=== PATIENT | male | born 1955 | race Caucasian/White ===

== ENCOUNTER 2025-01-04 06:26 | Emergency (ER) | payer OTHER, SELFPAY ==
[2025-01-04] VITALS (12 sets, daily range): BP systolic 91–118; BP diastolic 64–86; PULSE 102–112; RESP 18–38; TEMP 36.6–37.7; O2SAT 92–100; BMI 23.4
[2025-01-04 07:03] LABS: Hematocrit 23.8 % (40-54); Hemoglobin 7.9 g/dL (13.0-16.5); Mean Corp Hgb Conc 33.2 g/dL (32-36); Mean Corpuscular Volume 91.2 fL (80-94); Mean Platelet Vol. 9.5 fl (6.2-12.0); POSITIVE COUNT YES; POSITIVE DIFFERENTIAL YES; POSITIVE MORPHOLOGY YES; Platelet Count 288 K/mm3 (150-450); RBC Distribution Width CV 17.5 % (11.6-14.6); RBC Distribution Width SD 58.1 fl (35.1-43.9); Red Blood Count 2.61 M/mm3 (4.6-6.2); White Blood Count 10.7 K/mm3 (4.4-11.0)
[2025-01-04] MEDS: 0.9% Normal Saline (1000mL) 1,000 ML 999 ML IV (07:04)
[2025-01-04 07:10] LABS: Differential Indicated MANUAL DIFF
[2025-01-04 07:56] LABS: AST(SGOT) 49 U/L (<=37); Alanine Aminotransfer ALT/SGPT 18 U/L (<=46); Albumin, Serum 3.1 g/dL (3.4-4.8); Alkaline Phosphatase 81 U/L (40-129); Anion Gap 14 (5-15); BUN 14 mg/dL (4-19); BUN/Creat Ratio 13.2 RATIO (10-20); Calcium,Total 8.5 mg/dL (7.6-11.0); Carbon Dioxide 19.5 mmol/L (21.0-32.0); Chloride 87 mmol/L (98-108); Estimated Creatinine Clearance 67.91 ml/min (50-250); Globulin 3.4 g/dL (2.2-4.2); Glucose 111 mg/dL (70-99); Potassium 4.2 mmol/L (3.3-5.1)
[2025-01-04 07:57] LABS: Neutrophil-Band 1 % (0-5); Neutrophil-Segmented 83 % (47-70); Total Cells Counted 100 (MANUAL DIFF)
[2025-01-04 08:00] LABS: Red Cell Morphology NORM C+C NORMAL (NORM C&C)
[2025-01-04 08:02] LABS: Mucous, Urine 0 SEEN /hpf (<or=2+)
[2025-01-04 08:05] LABS: Troponin T High Sensitivity 22 ng/L (<=22)
[2025-01-04 08:12] LABS: Color, Urine Yellow (Yellow); Glucose, Dipstick Normal (Normal); Ketone-Dipstick 5 mg/dl (Negative); Leukocyte Esterase-Dipstick Negative /ul (Negative); Nitrite-Dipstick Negative (Negative); Occult Blood-Urine 25 /ul (Negative); Protein-Dipstick 30 mg/dl (Negative); Specific Gravity, Urine 1.015 (1.002-1.030); Urine Bilirubin Dipstick Negative (Negative)
[2025-01-04 08:22] LABS: Pro- Brain NATRIURETIC PEPTIDE 1141 pg/mL (<=900)
[2025-01-04 08:24] LABS: Prothrombin Time (Protime)PT. 14.9 SECONDS (11.7-14.9)
[2025-01-04 08:25] LABS: Partial Thromboplast Time 35.7 Seconds (24.1-36.2)
[2025-01-04 08:27] LABS: Red Blood Cells-Urine 0-5 SEEN /hpf (0-5); Squamous Epithelial Cells - UA 0-5 SEEN /hpf (0-5)
[2025-01-04] MEDS: Sodium Chloride 3% 500 ML IV.SOLN. INHALATION (09:56)
[2025-01-04 11:40] LABS: Troponin T High Sens 2 HR 20 ng/L (<=22)
== END 2025-01-04 13:35 | disposition left against medical advice (07) ==
PROVIDERS: Emergency Provider Emergency Medicine; Visit Provider Emergency Medicine
DX: R06.02 Shortness of breath (principal); C34.90 Malignant neoplasm of unspecified part of unspecified bronchus or lung; Z87.891 Personal history of nicotine dependence; Z53.29 Procedure and treatment not carried out because of patient's decision for other reasons
CPT/HCPCS: 71046; 71275; 74177; 80053; 81001; 83605; 83880; 84484; 85025; 85610; 85730; 87040; 87086; 87088; 93005; 94640; 96360; 96361; 99285; Q9967; A4216

== ENCOUNTER 2025-03-01 01:32 | Inpatient (IN) | payer OTHER, SELFPAY ==
[2025-03-01] VITALS (23 sets, daily range): BP systolic 90–130; BP diastolic 59–100; PULSE 51–134; RESP 14–30; TEMP 36.6–37.2; O2SAT 94–100; BMI 22.8; BMI 20.2
--- NOTE | 2025-03-01 02:28 | EKG12_ITS ---
Test Reason : Blood Pressure : */* mmHG Vent. Rate : 140 BPM Atrial Rate : 140 BPM P-R Int : 140 ms QRS Dur : 76 ms QT Int : 300 ms P-R-T Axes : 49 46 64 degrees QTcB Int : 458 ms Critical Test Result: High HR , Arrhythmia Sinus tachycardia with frequent and consecutive Premature ventricular complexes Abnormal ECG Confirmed by Delmar Lofton ([id number]), vibrating screen operator KENA ALICEA ([id number]) on 03/02/2025 11:00:08 AM Referred By: Confirmed By: Delmar Lofton
--- NOTE | 2025-03-01 02:30 | CT_ITS ---
PROCEDURE: CTA CHEST W/WO CONTRAST 03/01/2025 REASON FOR EXAM: SOB, HX LUNG CANCER, EDEMA TECHNIQUE: Procedure Code: [id number] Modality: CT Procedure: CTA CHEST W/WO CONTRAST Multiplanar Sagittal and Coronal images were obtained. CONTRAST: Isovue-370 VOLUME: 100 mL One or more dose reduction techniques were used (e.g., Automated exposure control, adjustment of the mA and/or kV according to patient size, use of iterative reconstruction technique). RADIATION DOSE SUMMARY: CTDlvol: 11.11 mGy DLP: 449 mGycm COMPARISON: CT scan on 01/04/2025. FINDINGS: Mild increase in the size of the left upper lobe/left hilar mass. Increased left pleural effusion. Increased left basilar atelectasis. Increased cavitation in the left lower lobe. Unchanged mediastinal and hilar lymphadenopathy. Mild increase in the size and number of multiple pulmonary nodules with the largest measuring 16 mm on the current exam (previously 13 mm). Unchanged upper abdominal lymphadenopathy. Unchanged left axillary lymphadenopathy. Unchanged diffuse spondylosis. Normal enhancement of the main pulmonary artery and right and left pulmonary arteries. Normal enhancement of the bilateral peripheral pulmonary arteries. There is no demonstrated pulmonary embolism. Normal thoracic aorta and visualized great vessels. There is no demonstrated aortic dissection. Normal heart and pericardium. Normal visualized trachea and bronchi. CT/CTA Chest W/WO Contrast IMPRESSION: Mild increase in the size of the left upper lobe/left hilar mass. Increased left pleural effusion. Increased left basilar atelectasis/consolidation. Increased cavitation in the left lower lobe. Unchanged mediastinal and hilar lymphadenopathy. Mild increase in the size and number of multiple pulmonary nodules with the lar gest measuring 16 mm on the current exam (previously 13 mm). Unchanged upper abdominal lymphadenopathy. Unchanged left axillary lymphadenopathy. Unchanged diffuse spondylosis. Unchanged multifocal compression of the left pulmonary artery and its branches. No CT evidence of pulmonary embolus or aortic dissection. Reading Location: [place] [id number]
[2025-03-01] MEDS: Ipratropium 0.5 MG/2.5 ML SOLUTION INHALATION (02:53)
[2025-03-01 02:55] LABS: Hematocrit 31.5 % (40-54); Hemoglobin 10.2 g/dL (13.0-16.5); Immature Granulocytes Count 0.670 X10^3/uL (0.0-0.0); Mean Corp Hgb Conc 32.4 g/dL (32-36); Mean Corpuscular Volume 83.8 fL (80-94); Mean Platelet Vol. 9.4 fl (6.2-12.0); NRBC Flagged by Analyzer 0 % (0-5); Platelet Count 459 K/mm3 (150-450); RBC Distribution Width CV 15.4 % (11.6-14.6); RBC Distribution Width SD 47.4 fl (35.1-43.9); Red Blood Count 3.76 M/mm3 (4.6-6.2); White Blood Count 14.4 K/mm3 (4.4-11.0)
--- NOTE | 2025-03-01 03:06 | CPS ---
pt slept t/o treatment
--- NOTE | 2025-03-01 03:07 | EDS_ITS ---
HPI History of Present Illness Chief Complaint: Shortness of Breath Informant: patient Narrative Narrative: Patient is a 69-year-old male with history of stage IV lung cancer (currently not receiving any treatment because he was not responding to immunotherapy) and symptomatic anemia presenting with worsening shortness of breath. Patient states has not worsened shortness of breath for the past 3 days. He states is normal for him to struggle with his breathing in the morning but usually throughout the day he is okay. In those of the past 3 days he never started to feel better. He sometimes has a mild wheeze when he has a coughing fit. Also notes in the past 2 weeks his increased swelling of his lower extremities. Did have heart failure once before but it seemed to be associated with anemia. He denies any anticoagulation. Denies any show DVT or PE. Denies any fever or chills. Denies any chest pain. Came in for further evaluation. States that he has not really been sleeping the past 2 days because he is afraid that he will not wake up. [facility] Medical History Lung cancer Home Medications ?Medication ?Instructions ?Recorded ?Last Taken ?Type Unobtainable 01/04/25 Unknown History Allergy/AdvReac Type Severity Reaction Status Date / Time No Known Allergies Allergy Verified 01/04/25 06:26 Social History Smoking Status: Former smoker ROS ROS ED Constitutional Constitutional ED: Denies chills or fever(s) ENT ENT ED: Denies rhinorrhea or sore throat Cardiovascular Cardiovascular: Reports other Details: Leg swelling ; Denies chest pain or palpitations Respiratory/Chest Respiratory/Chest: Reports cough, dyspnea and dyspnea on exertion; Denies sputum Gastrointestinal Gastrointestinal: Denies abdominal pain or vomiting Musculoskeletal Musculoskeletal: Denies arthralgias or myalgias Integumentary Denies rash Neurologic Neurologic: Reports weakness Psychiatric Psychiatric: Reports anxiety Hematologic/Lymphatic Hematologic/Lymphatic: Denies easy bleeding or easy bruising EXAM Physical Exam Const Vital Signs: 03/01/25 01:34 03/01/25 01:40 03/01/25 02:43 Temperature 98.4 F 98.4 F Temperature Source Axillary Axillary Pulse Rate 120 H 96 Respiratory Rate 30 H 20 H Respiratory Effort Short of Breath Labored Respiratory Depth Shallow Respiratory Pattern Tachypnea Blood Pressure 124/100 H 118/96 H Blood Pressure Mean 108 103 Pulse Ox 95 97 Oxygen Delivery Method Room Air Nasal Cannula Nasal Cannula Oxygen Flow Rate (L/min) 2 2 03/01/25 02:43 03/01/25 02:55 03/01/25 03:09 Temperature 98.4 F Temperature Source Oral Pulse Rate 80 92 Respiratory Rate 14 18 Respiratory Effort Respiratory Depth Respiratory Pattern Blood Pressure 106/92 H Blood Pressure Mean 96 Pulse Ox 97 97 Oxygen Delivery Method Nasal Cannula Oxygen Flow Rate (L/min) 2 03/01/25 04:06 03/01/25 05:00 03/01/25 06:10 Temperature 98.6 F 98 F Temperature Source Oral Temporal Pulse Rate 122 H 107 H 129 H Respiratory Rate 15 18 16 Respiratory Effort Respiratory Depth Respiratory Pattern Blood Pressure 119/83 H 120/59 L Blood Pressure Mean 95 79 Pulse Ox 100 100 99 Oxygen Delivery Method Oxygen Flow Rate (L/min) 03/01/25 07:03 03/01/25 07:10 Temperature 97.8 F Temperature Source Oral Pulse Rate 111 H 121 H Respiratory Rate 19 H 19 H Respiratory Effort Respiratory Depth Respiratory Pattern Blood Pressure 102/82 H 102/82 H Blood Pressure Mean 88 88 Pulse Ox 98 100 Oxygen Delivery Method Nasal Cannula Nasal Cannula Oxygen Flow Rate (L/min) 3 Positive well nourished and well developed Constitutional Narrative: Mildly ill-appearing General Appearance ED: well developed, NAD and pallor HEENT Reports moist mucous membranes atraumatic Eyes PERRL Neck supple Neck Narrative: Mild JVD present Resp Resp Narrative: Tachypneic. Diminished breath sounds on the left base. Auscultation: Negative for rhonchi or wheezes Cardio no murmurs Rate: tachycardic Rhythm: abnormal rhythm irregularly irregular GI non-tender and non-distended GI Narrative: Soft and reducible ventral hernia present. This is chronic for patient. No overlying redness or tenderness. Extremity Extremity Narrative: Pitting pretibial edema of the bilateral lower extremities slightly worse on the right compared to the left. General Extremety ED: Yes edema General Extremity: edema Neuro oriented x3 Sensorium / Orientation: alert Motor Exam: general weakness Psych mental status grossly normal Mood & Affect: anxious Thought Process: normal thought process Skin no wounds General Skin Exam: pallor Rashes: no rashes MDM MDM MDM Narrative Medical decision making narrative: Patient is a very pleasant 69-year-old male with history of stage IV metastatic lung cancer that currently is untreatable. [facility] follows with [facility]. He is presenting with worsening shortness of breath as well as leg swelling. Differential includes is not limited to pulmonary emboli, ACS, CHF exacerbation, pneumonia, obstructive process, pleural effusion and pneumothorax. Workup obtained including CBC, high-sensitivity troponins, BNP, lactate, BMP and CTA of the chest. EKG shows a tachycardic, narrow complex rhythm however I do not think it is atrial fibrillation. Patient does have a leukocytosis of 14.4. He is afebrile in the emergency room. He has required some supplemental oxygen which is new for him. He has a mild anemia the hemoglobin of 10.2 however I do not think that is low enough to cause his symptoms/high output heart failure. He states he does have history of requiring blood transfusion. He does have an associated left shift. His BMP is remarkable for hyponatremia the sodium 126 but this appears chronic. Lactate is normal at 1.5. High- sensitivity troponin stable at 36 and 34. BNP elevated [place] 2433. CT of the chest does not show any pulmonary emboli but does show increased left upper and hilar mass, increased pleural effusion, increased left basilar atelectasis/consolidation and increased cavitation of the left lower lobe. He has increased pulmonary nodules and unchanged multifocal compression of the left pulmonary artery and its branches. 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 Is started on antibiotics as well as diuresis. As he receives his care through the [facility] will contact them for transfer/admission. If they are unable to accommodate admission we will attempt admission here. Patient is agreeable with this. Patient is started on Rocephin, azithromycin and Lasix in the emergency room. As his blood pressure has been stable, he does not have endorgan damage consistent with sepsis and clinically appears fluid overloaded will give Lasix and hold off on IV fluids at this time. Lab Data Attestation: I reviewed the patient's lab results. Labs: Laboratory Results - last 24 hr 03/01/25 03/01/25 02:40 05:20 WBC 14.4 H RBC 3.76 L Hgb 10.2 L Hct 31.5 L MCV 83.8 MCH 27.1 MCHC 32.4 RDW Std Deviation 47.4 H RDW Coeff of Hai 15.4 H Plt Count 459 H MPV 9.4 Immature Gran % (Auto) 4.700 H Neut % (Auto) 81.2 H Lymph % (Auto) 4.8 L Finney % (Auto) 8.9 Eos % (Auto) 0.0 Baso % (Auto) 0.4 Absolute Neuts (auto) 11.7 H Absolute Lymphs (auto) 0.69 L Nucleated RBC % 0 Sodium 126 L Potassium 4.2 Chloride 90 L Carbon Dioxide 22.6 Anion Gap 14 BUN 11 Creatinine 0.65 L Estim Creat Clear Calc 89.24 Est GFR (MDRD) Non-Af 102 BUN/Creatinine Ratio 17.2 Glucose 90 Lactic Acid 1.5 Calcium 8.9 Troponin T High Sens 36 H D Troponin T Hi Sens 2 Hr 34 H NT pro BNP II 2433 H Radiography Diagnostic Testing: Clinical Impression(s) from Imaging Studies Chest CTA 03/01/25 02:30 IMPRESSION: Mild increase in the size of the left upper lobe/left hilar mass. Increased left pleural effusion. Increased left basilar atelectasis/consolidation. Increased cavitation in the left lower lobe. Unchanged mediastinal and hilar lymphadenopathy. Mild increase in the size and number of multiple pulmonary nodules with the largest measuring 16 mm on the current exam (previously 13 mm). Unchanged upper abdominal lymphadenopathy. Unchanged left axillary lymphadenopathy. Unchanged diffuse spondylosis. Unchanged multifocal compression of the left pulmonary artery and its branches. No CT evidence of pulmonary embolus or aortic dissection. Reading Location: [place] [id number] Rhythm Strip Rhythm Strip: Sinus Tach Rate: 140 Ectopy: PVC(s) EKG Initial EKG: Attestation: I personally reviewed and interpreted this EKG as follows: Interpretation: Sinus Tachycardia Comments: Sinus tachycardia with frequent PVCs and PACs Normal axis Normal intervals Normal ST segments Discharge Plan Triage Chief Complaint: Shortness of Breath ED Provider: Kassi Baker Dx/Rx/DC Orders Clinical Impression: Acute hypoxic respiratory failure, Obstructive pneumonia, Pleural effusion, Metastatic cancer to lung Prescriptions: No Action Unobtainable [facility] Provider: [facility] Referrals: [facility] [Primary Care Provider] - Print Language: Macedonian
[2025-03-01 03:32] LABS: Anion Gap 14 (5-15); BUN 11 mg/dL (4-19); BUN/Creat Ratio 17.2 RATIO (10-20); Calcium,Total 8.9 mg/dL (7.6-11.0); Carbon Dioxide 22.6 mmol/L (21.0-32.0); Chloride 90 mmol/L (98-108); Estimated Creatinine Clearance 89.24 ml/min (50-250); Glucose 90 mg/dL (70-99); Potassium 4.2 mmol/L (3.3-5.1)
[2025-03-01 04:10] LABS: Pro- Brain NATRIURETIC PEPTIDE 2433 pg/mL (<=900); Troponin T High Sensitivity 36 ng/L (<=22)
--- OUTSIDE RECORDS SUMMARY | 2025-03-01 05:30 | XMS RPT_ITS | CCD ---
Author Organization [facility] Care Team Providers Care General Expeditor Name Role Phone YEN MILES Admitting Unavailable BETSY VAZQUEZ Attending Unavailable SANDRINE EARL [place], [place] Primary Care Provider Dr. Ned Ragsdale DO Emergency Provider [place], [place] Primary Care Unavailable Ned Harmon Attending Unavailable Medications Current Medications Medication Drug Class(es) Dates Sig (Normalized) Sig (Original) [place] (Unobtainable) (1 source) Start: 01-04-2025 [place] (Unobtainable) Active January 04, 2025 12:00am Completed/Discontinued Medications Medication Drug Class(es) Dates Sig (Normalized) Sig (Original) meclizine hydrochloride 12.5 mg oral tablet (1 source) Antiemetic Start: 03-22-2016 End: 01-04-2025 take 1 tablet by mouth three times daily as needed Meclizine 12.5 MG tablet Discontinued 12.5 mg PO 3 TIMES DAILY NEEDED as needed for Vertigo 20 0 March 22, 2016 12:00am January 04, 2025 6:32am Problems Problem Classification Problem Date Documented Da te Episodic/Chronic Cancer of bronchus; lung (2 sources) Malignant neoplasm of unspecified part of left bronchus or lung; Translations: [Malignant tumor of lung] Onset: 12-14-2024 01-04-2025 Chronic Cancer; other and unspecified primary (1 source) H/O: malignant neoplasm; Translations: [Personal history of malignant neoplasm of other organs and systems] 01-04-2025 Episodic Deficiency and other anemia (1 source) Anemia, unspecified; Translations: [Anemia, unspecified type] Onset: 12-09-2024 Episodic Other lower respiratory disease (2 sources) Shortness of breath; Translations: [Shortness of breath] Onset: 12-09-2024 Episodic Other lower respiratory disease (1 source) Dyspnea; Translations: [Shortness of breath] 01-04-2025 Episodic Other nervous system disorders (1 source) Ataxia; Translations: [Ataxia, unspecified] 03-21-2016 Episodic Results Test Name Value Interpretation Reference Range Facility CBC W/Diff, Automatedon 12-30 PATH REV Reviewed Normal [facility] Comment on above: Result Comment: SEE REPORT IN PATIENT'S EMR AMENDED REPORT 01/20/25 1116 PATH REV previously reported as: October Performed By: #### L 400.0001, M100.2200 #### [facility] [place], [address] Culture, Blood (WB)on 2024 CUB Blood cultures x2, from two different sites No growth in 5 days. [facility] Comment on above: Performed By: #### M 200.1000 #### [facility] [place], [address] Performed By: #### L 400.0001, M100.2200 #### [facility] [place], [address] Urine Cultureon 01-06-2025 URC Below infection level. Mixed Gram Positive Organisms [place] Count 1000-10,000 MIXC Mixed contaminants. Submit a new specimen if indicated. [facility] Comment on above: Performed By: #### L 400.0001, M100.2200 #### [facility] [place], [address] 12 Lead EKGon 01-04-2025 12 Lead EKG [facility] Cardiovascular Services [address] [place] [address] 12 Lead EKG 01/04/25 0636 MR#: [id number] Acct: [id number] Name: CAROLINA CHENEY Rep #: [id number] : 1955 69 From: Ramy Henderson MD Attending Dr: Status: DEP ER Ordering Dr: Ned Harmon DO Date: 01/04/25 Location: ED Sex: M C Admitted: Test Reason : SOB Blood Pressure : */* mmHG Vent. Rate : 107 BPM Atrial Rate : 107 BPM P-R Int : 150 ms QRS Dur : 92 ms QT Int : 334 ms P-R-T Axes : 62 69 65 degrees QTcB Int : 445 ms Sinus tachycardia Otherwise normal ECG Confirmed by TIFFANI SANZ, RAMY ([id number]), editorial director URIAH BUITRAGO ([id number]) on 01/05/2025 8:23:44 AM Referred By: Confirmed By: RAMY HENDERSON MD 01/05/25 0823 Date Ramy Henderson MD CC: Dr. Ned Harmon DO; [facility] Signed Normal [facility] Abdomen/Pelvis W IV Cont ONL Yon 01-04-2025 Abdomen/Pelvis W IV Cont ONLY [facility] Imaging Services [facility] [place], [place] [address] Abdomen/Pelvis W IV Cont ONLY MR#: [id number] Acct: [id number] Name: CAROLINA CHENEY Rep #: [id number] : 1955 M 69 From: Carlos Bee MD PCP: [facility] Status: REG ER Study: Abdomen/Pelvis W IV Cont ONLY Date of Exam: Exam# [id number] Ordering Dr: Ned Harmon DO PROCEDURE: ABDOMEN/PELVIS W IV CONT ONLY 01/04/2025 REASON FOR EXAM: HX OF LUNG CANCER TECHNIQUE: ABDOMEN/PELVIS W IV CONT ONLY Coronal and Sagittal reconstruction series were provided. CONTRAST: Isovue 370 VOLUME: 95 mL One or more dose reduction techniques were used (e.g., Automated exposure control, adjustment of the mA and/or kV according to patient size, use of iterative reconstruction technique. RADIATION DOSE SUMMARY: CTDlvol: 23.50 mGy DLP: 742.11 mGycm COMPARISON: None. FINDINGS: Lung bases: Please see chest CT findings, same day. Liver: The liver measures 18.0 cm in vertical dimension in the midclavicular line. Gallbladder: Normal. Spleen: Normal. Pancreas: Normal. Adrenals: Normal. Kidneys: Normal. Bladder: Normal unenhanced appearance. Reproductive Organs: The prostate gland measures 4.7 cm in transverse dimension and contains a coarse calcification. The seminal vesicles are unremarkable. There is no free fluid in the pelvis. There is no inguinal lymphadenopathy. Bowel: There are few mildly distended loops of the small bowel with air-fluid levels and there is mild distention of the transverse colon. There are no abnormally dilated loops of bowel. This may be a mild ileus associated with chemotherapy. Appendix: Normal. Lymph nodes: There is gastrohepatic lymphadenopathy measuring 3.8 x 2.9 cm in conglomerate. There are multiple enlarged retroperitoneal lymph nodes, index node, a left periaortic lymph node measuring 2.0 x 1.3 cm. Vasculature: There is calcific vascular disease of the abdominal aorta. The inferior vena cava and portal venous system are normal. Peritoneum / Retroperitoneum: There are no abnormal intra or retroperitoneal masses or fluid collections. There is a midline ventral hernia, containing normal fat, measuring 5.6 cm in diameter, 8.0 cm above the umbilicus. Bones: There is mild multilevel degenerative disc disease of the lower thoracic and lumbar spine. There is a large Schmorl's node in the superior endplate of L5. CT/Abdomen/Pelvis W IV Cont ONLY IMPRESSION: 1. Upper intra-abdominal and retroperitoneal lymphadenopathy suspicious for metastatic disease. 2. Hepatomegaly. 3. Mild ileus. 4. Other findings as noted. Reading Location: [id number] CC: Dr. Ned Harmon, DO; [facility] Card Writer Hand: Signed Normal [facility] Absolute lymphocyte countOrd ered By: Ned Harmon on 01-04-2025 Lymphocytes Auto (Unsp spec) [#/Vol] 0.43 10*3/uL Low 0.83-4.51 [facility] Absolute neutrophil countOrd ered By: Ned Harmon on 01-04-2025 Neutrophils (Bld) [#/Vol] 9.0 10*3/uL High 2.0-7.7 [facility] Activated partial thrombopla stin time (aPTT) in platelet poor plasma by coagulation aOrdered By: Ned Harmon on 01-04-2025 aPTT Coag (PPP) [Time] 35.7 s 24.1-36.2 [facility] Anion gap in Serum or Plasma Ordered By: Ned Harmon on 01-04-2025 Anion gap [Moles/Vol] 14 mmol/L 5-[address] [facility] BUN/creatinine ratioOrdered By: Ned Harmon on 01-04-2025 Urea nitrogen/Creatinine [Mass ratio] 13.2 mg/mg 10-20 [facility] Bilirubin Test strip Ql (U)O rdered By: Ned Harmon on 01-04-2025 Bilirubin Ql (U) Negative Negative [facility] Bilirubin, totalOrdered By: Ned Harmon on 01-04-2025 Bilirubin [Mass/Vol] 0.88 mg/dL 0.00-1.30 [facility] Blood band neutrophil count as percentage of total leukocytesOrdered By: Ned Harmon on 01-04-2025 Band form neutrophils/100 WBC (Bld) 1 % 0-5 [facility] Blood eosinophils/100 leukoc ytesOrdered By: Ned Harmon on 01-04-2025 Eosinophils/100 WBC (Bld) 2 % 0-5 [facility] Blood lymphocytes/100 leukoc ytesOrdered By: Ned Harmon on 01-04-2025 Lymphocytes/100 WBC (Bld) 4 % Low 19-41 [facility] Blood metamyelocytes/100 yael kocytesOrdered By: Ned Harmon on 01-04-2025 Metamyelocytes/100 WBC (Bld) 4 % High 0-1 [facility] Blood monocytes/100 leukocyt esOrdered By: Ned Harmon on 01-04-2025 Monocytes/100 WBC (Bld) 6 % 0-10 [facility] Blood segmented neutrophils/ 100 leukocytesOrdered By: Ned Harmon on 01-04-2025 Segmented neutrophils/100 WBC (Bld) 83 % High 47-70 [facility] CTA Chest W/WO Contraston CTA Chest W/WO Contrast [facility] Imaging Services [address] [place] [address] CTA Chest W/WO Contrast MR#: [id number] Acct: [id number] Name: CAROLINA CHENEY Rep #: [id number] : 1955 M 69 From: Wilfrido Wu DO PCP: [facility] Status: REG ER Study: CTA Chest W/WO Contrast Date of Exam: 01/04/25 Exam# [id number] Ordering Dr: Ned Harmon DO PROCEDURE: CTA CHEST W/WO CONTRAST 01/04/2025 REASON FOR EXAM: Shortness of breath history of cancer TECHNIQUE: CTA CHEST W/WO CONTRAST Multiplanar Sagittal and Coronal images were obtained. CONTRAST: Isovue 370 VOLUME: 100 mL One or more dose reduction techniques were used (e.g., Automated exposure control, adjustment of the mA and/or kV according to patient size, use of iterative reconstruction technique). RADIATION DOSE SUMMARY: CTDlvol: 6.29, 6.70 and 10.24 mGy DLP: 742.11 mGycm COMPARISON: Chest radiograph January 04, 2025 FINDINGS: Thoracic Aorta: Normal caliber. Heart: Normal size. Pulmonary Vessels: No pulmonary embolism. Hardware: None. Lymph nodes: No isolated identified Lungs and Airways: Complete atelectasis of the left upper lobe versus large mass. Sedation in the superior segment of the left lower lobe. Consider bronchial plugs with either mucous or neoplasm versus other Pleura: Very small left pleural effusion. 13 mm ovoid pleural-based nodule in the right lower lobe, and several similar size pulmonary nodules throughout the right lung Upper Abdomen: Unremarkable Bones: Schmorl's node inferior endplate T11 CT/CTA Chest W/WO Contrast IMPRESSION: No pulmonary embolism. Complete atelectasis of the left upper lobe from bronchial plugging from mucous, lung cancer versus other etiology. Multi focal right lung pulmonary metastases Reading Location: [facility] CC: Dr. Ned Harmon DO; [facility] Card Writer Hand: Signed Normal [facility] Carbon dioxide, total [Moles /volume] in Central venous bloodOrdered By: Ned Harmon on 01-04-2025 CO2 [Moles/Vol] 19.5 mmol/L Low 21.0-32.0 [facility] Chest PA and Lateralon 01-04 Chest PA and Lateral [facility] Imaging Services [address] [place], [place] [address] Chest PA and Lateral MR#: [id number] Acct: [id number] Name: CAROLINA CHENEY Rep #: [id number] : 1955 M 69 From: Carlos Bee MD PCP: [facility] Status: DEP ER Study: Chest PA and Lateral Date of Exam: 01/04/25 Exam# [id number] Ordering Dr: Ned Harmon DO ADDENDUM by Dr. Wilfrido Wu DO on 01/04/25 at 1343 Addendum created to compare CT chest same day current chest x-ray. General opacity shown on the chest radiograph corresponds to a large mass in the upper lobe of lung there is atelectasis of the lower lobe of the lung Impression Large left upper lobe mass Left lower lobe consolidating pneumonia. Discussed case with ordering ER physician Dr. Ned Harmon at 1 30 8 p.m. on January 04, 2025 Reading Location: [facility]- 01/04/25 1718 Date cc: Dr. Ned Harmon DO; [facility] * Signed PROCEDURE: CHEST PA AND LATERAL 01/04/2025 REASON FOR EXAM: SOB TECHNIQUE: CHEST PA AND LATERAL COMPARISON: None. FINDINGS: There is a large mass in the upper lobe of the left lung. There is significant atelectasis of the upper lobe of the left lung and a portion of the lower lobe of the left lung, with associated volume loss. The right lung is clear. The left heart border is obscured. RAD/Chest PA and Lateral IMPRESSION: Large mass in the upper lobe of the left lung with associated atelectasis. Recommendation: CT chest with IV contrast. Reading Location: [facility] CC: Dr. Ned Harmon DO; [facility] Card Writer Hand: Signed Normal [facility] Chloride assayOrdered By: Tomas Harmon on 01-04-2025 Chloride [Moles/Vol] 87 mmol/L Low 98-108 [facility] Comprehensive Metabolic Prof ilon 01-04-2025 Albumin [Mass/Vol] 3.1 g/dL Low 3.4-4.8 [facility] Comment on above: Performed By: #### L 400.0001, #### [facility] [address] [place], [address] Albumin/Globulin [Mass ratio] 0.9 {ratio} Normal 0.9-2.4 [facility] Comment on above: Performed By: #### L 400.0001, #### [facility] [address] [place], [address] ALK PHOS 81 U/L Normal 40-129 [facility] Comment on above: Performed By: #### L 400.0001, #### [facility] [address] [place], [address] ALT [Catalytic activity/Vol] 18 U/L Normal <=46 [facility] Comment on above: Performed By: #### L 400.0001, #### [facility] [address] [place], [address] AST [Catalytic activity/Vol] 49 U/L High <=37 [facility] Comment on above: Performed By: #### L 400.0001, #### [facility] [address] [place], [address] Bilirubin [Mass/Vol] 0.88 mg/dL Normal 0.00-1.30 [facility] Comment on above: Performed By: #### L 400.0001, #### [facility] [address] [place], [address] BUN/CRE 13.2 RATIO Normal 10-20 [facility] Comment on above: Performed By: #### L 400.0001, #### [facility] [address] [place], [address] Calcium [Mass/Vol] 8.5 mg/dL Normal 7.6-11.0 [facility] Comment on above: Performed By: #### L 400.0001, #### [facility] [address] [place], [address] Chloride [Moles/Vol] 87 mmol/L Low 98-108 [facility] Comment on above: Performed By: #### L 400.0001, #### [facility] [address] [place], [address] CO2 [Moles/Vol] 19.5 mmol/L Low 21.0-32.0 [facility] Comment on above: Performed By: #### L 400.0001, #### [facility] [address] [place], [address] Creatinine [Mass/Vol] 1.06 mg/dL Normal 0.70-1.[address] [facility] Comment on above: Performed By: #### L 400.0001, #### [facility] [address] [place], [address] ECRCL 67.91 ml/min Normal 50-250 [facility] Comment on above: Performed By: #### L 400.0001, #### [facility] [address] [place], [address] GAP 14 Normal 5-15 [facility] Comment on above: Performed By: #### L 400.0001, #### [facility] [address] [place], [address] GFR/1.73 sq M.predicted among non-blacks MDRD (S/P/Bld) [Vol rate/Area] 76 mL/min/{1.73_m2} Normal >60 [facility] Comment on above: Result Comment: mL/m in/1.73m2 CKD-EPI Creatinine Equation (2020) Performed By: #### L 400.0001, #### [facility] [address] [place], [address] Globulin (S) [Mass/Vol] 3.4 g/dL Normal 2.2-4.2 [facility] Comment on above: Performed By: #### L 400.0001, #### [facility] [address] [place], [address] Glucose [Mass/Vol] 111 mg/dL High 70-99 [facility] Comment on above: Performed By: #### L 400.0001, #### [facility] [address] [place], [address] Potassium [Moles/Vol] 4.2 mmol/L Normal 3.3-5.[address] [facility] Comment on above: Performed By: #### L 400.0001, #### [facility] [address] [place], [address] Sodium [Moles/Vol] 120 mmol/L Low 133-145 [facility] Comment on above: Performed By: #### L 400.0001, #### [facility] [address] [place], [address] T PROT 6.5 g/dL Normal 5.9-8.4 [facility] Comment on above: Performed By: #### L 400.0001, #### [facility] [address] [place], [address] Urea nitrogen [Mass/Vol] 14 mg/dL Normal 4-19 [facility] [facility] Comment on above: Performed By: #### L 400.0001, M100.2200 #### [facility] [address] [place], [address] Emergency Department Summary on 01-04-2025 Emergency Department Summary [facility] Medical Records Department [address] [place] [address] Emergency Department Summary 01/04/25 MR#: [id number] Acct: [id number] Name: CAROLINA CHENEY Rep #: [id number] : 1955 69 From: Ned Harmon DO PCP: [facility] Status:REG ER Location: ED ADDENDUM by Dr. Ned Harmon DO on 01/04/25 at 1328 Patient EKG reviewed showed sinus tachycardia with rate of 107 bpm. 01/04/25 1328 Cosigner Signature (if applicable): cc: [facility] * Signed HPI History of Present Illness Chief Complaint: Shortness of Breath Narrative Narrative: Patient is a 69-year-old male with past medical history of lung cancer who presents to the emergency department with chief complaint of shortness of breath. Patient states that he has had off-and-on shortness of breath for the last several weeks he has had recent hospitalizations he states that originally he was at the hospital with [facility] and there was admitted to [facility] About 2 weeks ago. He states that he will be sleeping and he will feel like he wakes up gasping for air having shortness of breath difficulty breathing therefore he came here for further evaluation management. Patient denies any travel denies any history of blood clots. [facility] Medical History Lung cancer Home Medications ???Medication ???Instructions ???Recorded ???Last Taken ???Type Unobtainable 01/04/25 Unknown History Allergy/AdvReac Type Severity Reaction Status Date / Time No Known Allergies Allergy Verified 01/04/25 06:26 Social History Smoking Status: Former smoker ROS ROS ED ROS Narrative Constitutional: Complains of chills denies fevers denies headache Eyes: Denies change in vision double vision blurry vision Cardiovascular: Denies chest pain or palpitations Respiratory: Complains of shortness of breath as noted above Abdomen: Denies abdominal pain nausea vomit diarrhea : Denies urinary symptoms Neurological: Denies numbness, weakness, tingling Musculoskeletal: Denies back pain Skin: Denies any rashes or lesions EXAM Physical Exam Narrative Exam Narrative: General: Patient lying in bed rest comfortably did not appear to be acute distress Head: Atraumatic, normocephalic Eyes: PERRL bilaterally, EOMI blood, no conjunctival injection noted Neck: Soft, supple, trachea midline Cardiovascular: Patient tachycardic with a regular rhythm Respiratory: Diminished breath sounds bilaterally Abdomen: No tenderness to palpation, soft, nondistended Extremities: +5/5 strength noted in the bilateral upper and lower extremities Neurological: Patient follow commands and that he was at [facility] year is 2024 Skin: Warm. Dry, intact no rashes or lesions noted Const Vital Signs: 01/04/25 06:27 01/04/25 06:30 01/04/25 06:33 Temperature 99.8 F H 99.8 F H Temperature Source Axillary Axillary Pulse Rate 106 H 106 H Respiratory Rate 38 H 34 H Respiratory Effort Short of Breath Blood Pressure 118/86 H 107/86 H Blood Pressure Mean 96 93 Pulse Ox 92 96 Oxygen Delivery Method Non-Rebreather Non-Rebreather Oxygen Flow Rate (L/min) 15 15 01/04/25 06:51 01/04/25 06:52 01/04/25 07:43 Temperature 98.4 F Temperature Source Oral Pulse Rate 104 H Respiratory Rate 30 H 31 H Respiratory Effort Blood Pressure 108/72 Blood Pressure Mean 84 Pulse Ox 97 98 97 Oxygen Delivery Method Room Air Room Air Room Air Oxygen Flow Rate (L/min) 01/04/25 08:00 01/04/25 08:38 01/04/25 09:00 Temperature 98.7 F 97.9 F 98.7 F Temperature Source Oral Oral Oral Pulse Rate 102 H 107 H 106 H Respiratory Rate 24 H 18 21 H Respiratory Effort Blood Pressure 107/68 94/67 111/74 Blood Pressure Mean 81 76 86 Pulse Ox 97 96 100 Oxygen Delivery Method Room Air Room Air Room Air Oxygen Flow Rate (L/min) 01/04/25 10:00 01/04/25 10:02 01/04/25 11:00 Temperature 97.8 F 98.9 F Temperature Source Oral Temporal Pulse Rate 107 H 104 H 112 H Respiratory Rate 23 H 20 H 22 H Respiratory Effort Blood Pressure 110/84 H 91/64 Blood Pressure Mean 92 73 Pulse Ox 100 99 Oxygen Delivery Method Room Air Room Air Oxygen Flow Rate (L/min) 01/04/25 12:18 Temperature 98.1 F Temperature Source Oral Pulse Rate 108 H Respiratory Rate 21 H Respiratory Effort Blood Pressure 96/66 Blood Pressure Mean 76 Pulse Ox 96 Oxygen Delivery Method Room Air Oxygen Flow Rate (L/min) MDM MDM MDM Narrative Medical decision making narrative: Patient is a 69-year-old male who presented to the emergency department chief complaint of shortness of (more content not included)... Normal [facility] Erythrocyte distribution wid th ratioOrdered By: Ned Harmon on 01-04-2025 Erythrocyte distribution width (RBC) [Ratio] 17.5 % High 11.6-14.6 [facility] Erythrocyte distribution wid th standard deviationOrdered By: Ned Harmon on 01-04-2025 Erythrocyte distribution width (RBC) [Ratio] 58.1 fl High 35.1-43.9 [facility] Erythrocyte morphology asses smentOrdered By: Ned Harmon on 01-04-2025 RBC morphology finding Nom (Bld) NORM C+C NORMAL NORM C&C [facility] Glomerular filtration rate ( GFR) estimation/1.73 sq m using serum, plasma, or whole bOrdered By: Ned Harmon on 01-04-2025 GFR/1.73 sq M.predicted among non-blacks MDRD (S/P/Bld) [Vol rate/Area] 76 mL/min/{1.73_m2} >60 [facility] Comment on above: mL/min/1.73m2 CKD-EP I Creatinine Equation (2020) Hematocrit Auto (Bld) [Volum e fraction]Ordered By: Ned Harmon on 01-04-2025 Hematocrit (Bld) [Volume fraction] 23.8 % Low 40-54 [facility] Hemoglobin measurementOrdere d By: Ned Harmon on 01-04-2025 Hemoglobin (Bld) [Mass/Vol] 7.9 g/dL Low 13.0-16.5 [facility] International normalized rat io (INR) calculationOrdered By: Ned Harmon on 01-04-2025 INR Coag (Bld) [Relative time] 1.2 {INR} [facility] Ketones Test strip Ql (U)Ord ered By: Ned Harmon on 01-04-2025 Ketones Ql (U) 5 mg/dl High Negative [facility] L499.0042on 01-04-2025 Trop T High Sen 20 ng/L Normal <=22 [facility] Comment on above: Performed By: #### L 400.0001, M100.2200 #### [facility] [address] [place], [address] L499.0043on 01-04-2025 Trop T High Sen Normal <=22 [facility] Comment on above: Result Comment: NO S PECIMEN COLLECTED. PATIENT DEPARTED ED. Performed By: #### L 499.0043 #### [facility] [address] [place], [address] L501.4021on 01-04-2025 Trop T High Sen 22 ng/L Normal <=22 [facility] Comment on above: Performed By: #### L 400.0001, M100.2200 #### [facility] [address] [place], [address] L503.7505on 01-04-2025 Natriuretic peptide B (Bld) [Mass/Vol] 1141 pg/mL High <=900 [facility] Comment on above: Result Comment: Hear t Failure Unlikely: < 300 pg/mL Heart Failure Likely < 50 Years: > 450 pg/mL 50-75 Years: > 900 pg/mL >75 Years: > 1800 pg/mL Performed By: #### L 503.7505 #### [facility] [address] [place], [address] Laboratory - Chemistry and C hemistry - challengeOrdered By: Ned Harmon on 01-04-2025 AST [Catalytic activity/Vol] 49 U/L High <38 [facility] Lactic Acidon 01-04-2025 Lactate [Moles/Vol] 1.3 mmol/L Normal 0.0-2.0 [facility] Comment on above: Order Comment: Y Performed By: #### L 400.0001, M100.2200 #### [facility] [place] [address], [address] Lactic acid measurementOrder ed By: Ned Harmon on 01-04-2025 Lactate [Moles/Vol] 1.3 mmol/L 0.0-2.0 [facility] MCV (mean corpuscular volume ) determinationOrdered By: Ned Harmon on 01-04-2025 MCV (RBC) [Entitic vol] 91.2 fL 80-94 [facility] Mean corpuscular hemoglobin (MCH) determinationOrdered By: Ned Harmon on 01-04-2025 MCH (RBC) [Entitic mass] 30.3 pg 27.0-32.0 [facility] Mean corpuscular hemoglobin concentration (MCHC) determinationOrdered By: Ned Harmon on 01-04-2025 MCHC (RBC) [Mass/Vol] 33.2 g/dL 32-[address] [facility] Mean platelet volume determi nationOrdered By: Ned Harmon on 01-04-2025 Platelet mean volume (Bld) [Entitic vol] 9.5 fL 6.2-12.0 [facility] Microscopic analysis of urin e for red blood cells (RBC)Ordered By: Ned Harmon on 01-04-2025 Microscopic analysis of urine for red blood cells (RBC) 0-5 SEEN /hpf 0-5 [facility] Mucus LM Ql (Urine sed)Order ed By: Ned Harmon on 01-04-2025 Mucus Ql (Urine sed) 0 SEEN /hpf [facility] Natriuretic peptide.B prohor dada N-Terminal [Mass/volume] in Serum or PlasmaOrdered By: Ned Harmon on 01-04-2025 Natriuretic peptide.B prohormone N-Terminal [Mass/Vol] 1141 pg/mL High <900 [facility] Comment on above: Heart Failure Unlike ly: < 300 pg/mLHeart Failure Likely< 50 Years: > 450 pg/mL50-75 Years: > 900 pg/mL>75 Years: > 1800 pg/mL Nitrite Test strip Ql (U)Ord ered By: Ned Harmon on 01-04-2025 Nitrite Ql (U) Negative Negative [facility] Partial Thromboplast Timeon 01-04-2025 aPTT Coag (Bld) [Time] 35.7 s Normal 24.1-36.2 [facility] Comment on above: Performed By: #### L 400.0001, #### [facility] [address] [place], [place], [id number] Platelet countOrdered By: Tomas Harmon on 01-04-2025 Platelets (Bld) [#/Vol] 288 10*3/uL 150-450 [facility] Platelet estimateOrdered By: Ned Harmon on 01-04-2025 Platelets LM Ql (Bld) ADEQUATE ADEQ [facility] Potassium measurement (mass/ volume)Ordered By: Ned Harmon on 01-04-2025 Potassium (Unsp spec) [Mass/Vol] 4.2 mmol/L 3.3-5.1 [facility] Protein Test strip Ql (U)Ord ered By: Ned Harmon on 01-04-2025 Protein Ql (U) 30 mg/dl High Negative [facility] Prothrombin Time w/INRon INR Coag (PPP) [Relative time] 1.2 {INR} Normal [facility] Comment on above: Performed By: #### L 400.0001, #### [facility] [address] [place], [address] PT Coag (PPP) [Time] 14.9 s Normal 11.7-14.9 [facility] Comment on above: Performed By: #### L 400.0001, #### [facility] [address] [place], [address] Prothrombin timeOrdered By: Ned Harmno on 01-04-2025 PT Coag (PPP) [Time] 14.9 s 11.7-14.9 [facility] RBC Auto (Bld) [#/Vol]Ordere d By: Ned Harmon on 01-04-2025 RBC (Bld) [#/Vol] 2.61 10*6/uL Low 4.6-6.2 [facility] Review by pathologistOrdered By: Ned Harmon on 01-04-2025 Pathologist review Jani (Unsp spec) [Interp] May foll [facility] Serum creatinine measurement (mass/volume)Ordered By: Ned Harmon on 01-04-2025 Creatinine [Mass/Vol] 1.06 mg/dL 0.70-1.[address] [facility] Serum globulin measurementOr dered By: Ned Harmon on 01-04-2025 Globulin (S) [Mass/Vol] 3.4 g/dL 2.2-4.2 [facility] Serum glucose measurement (m ass/volume)Ordered By: Ned Harmon on 01-04-2025 Glucose [Mass/Vol] 111 mg/dL High 70-99 [facility] Serum or plasma alanine hein otransferase (ALT) measurementOrdered By: Ned Harmon on 01-04-2025 ALT [Catalytic activity/Vol] 18 U/L <47 [facility] Serum or plasma albumin vahe urement (mass/volume)Ordered By: Ned Harmon on 01-04-2025 Albumin [Mass/Vol] 3.1 g/dL Low 3.4-4.8 [facility] Serum or plasma albumin/glob ulin mass ratioOrdered By: Ned Harmon on 01-04-2025 Albumin/Globulin [Mass ratio] 0.9 {ratio} 0.9-2.4 [facility] Serum or plasma alkaline celio sphatase measurementOrdered By: Ned Harmon on 01-04-2025 ALP [Catalytic activity/Vol] 81 U/L 40-129 [facility] Serum or plasma calcium vahe urement (mass/volume)Ordered By: Ned Harmon on 01-04-2025 Calcium [Mass/Vol] 8.5 mg/dL 7.6-11.0 [facility] Serum or plasma urea nitroge n measurement (mass/volume)Ordered By: Ned Harmon on 01-04-2025 Urea nitrogen [Mass/Vol] 14 mg/dL 4-19 [facility] Sodium levelOrdered By: Em Harmon on 01-04-2025 Sodium [Moles/Vol] 120 mmol/L Low 133-145 [facility] Squamous epithelial cells de tection in urine sediment by light microscopyOrdered By: Ned Harmon on 01-04-2025 Epithelial cells.squamous LM Ql (Urine sed) 0-5 SEEN /hpf 0-5 [facility] Total cell countOrdered By: Ned Harmon on 01-04-2025 Cells counted Molgen (Bld/Tiss) [#] 100 MANUAL DIFF [facility] Total proteinOrdered By: Corona Harmon on 01-04-2025 Protein [Mass/Vol] 6.5 g/dL 5.9-8.4 [facility] Troponin T.cardiac [Mass/vol ume] in Serum or Plasma by High sensitivity methodOrdered By: Ned Harmon on 01-04-2025 Troponin T.cardiac High sensitivity method [Mass/Vol] 20 ng/L <22 [facility] Troponin T.cardiac High sensitivity method [Mass/Vol] 22 ng/L <22 [facility] Urinalysis, Completeon 01-04 BACTERIA RARE Normal None Seen [facility] Comment on above: Order Comment: EWA CTOR TO SPECIFY Performed By: #### L 400.0001, #### [facility] [address] [place], [address] EPI,SQUAMOUS 0-5 SEEN Normal 0-5 [facility] Comment on above: Order Comment: EWA CTOR TO SPECIFY Performed By: #### L 400.0001, #### [facility] [address] [place], [address] RBC 0-5 SEEN Normal 0-5 [facility] Comment on above: Order Comment: EWA CTOR TO SPECIFY Performed By: #### L 400.0001, #### [facility] [address] [place], [address] WBC 0-5 SEEN Normal 0-5 [facility] Comment on above: Order Comment: EWA CTOR TO SPECIFY Performed By: #### L 400.0001, M100.2200 #### [facility] [address] [place], [address] Mucus Ql (Urine sed) 0 SEEN Normal [facility] Comment on above: Order Comment: EWA CTOR TO SPECIFY Performed By: #### L 400.0001, M100.2200 #### [facility] [address] [place], [address] Urine clarityOrdered By: Corona Harmon on 01-04-2025 Clarity (U) Clear Clear [facility] Urine color determinationOrd ered By: Ned Harmon on 01-04-2025 Color (U) Yellow Yellow [facility] Urine glucose detectionOrder ed By: Ned Harmon on 01-04-2025 Glucose Ql (U) Normal mg/dl Normal [facility] Urine leukocyte esterase det ection by dipstickOrdered By: Ned Harmon on 01-04-2025 Leukocyte esterase Test strip Ql (U) Negative Negative [facility] Urine pHOrdered By: Ned amezcua on 01-04-2025 pH (U) 6.0 [pH] 5.0 - 8.0 [facility] Urine sediment bacteria coun t by microscopy (number/high power field)Ordered By: Ned Harmon on 01-04-2025 Bacteria LM.HPF (Urine sed) [#/Area] RARE /hpf None Seen [facility] Urine specific gravity measu rementOrdered By: Ned Harmon on 01-04-2025 Specific gravity (U) [Rel density] 1.015 1.002-1.030 [facility] Urine urobilinogen measureme ntOrdered By: Ned Harmon on 01-04-2025 Urobilinogen Ql (U) Normal mg/dl Normal [facility] White blood cell (WBC) count Ordered By: Ned Harmon on 01-04-2025 WBC (Bld) [#/Vol] 10.7 10*3/uL 4.4-11.0 [facility] White blood cell countOrdere d By: Ned Harmon on 01-04-2025 White blood cell count 0-5 SEEN /hpf 0-5 [facility] CNPNon 12-25-2024 CNPN Normal [facility] CASE MANAGEMon 12-22-2024 CASE MANAGEM Normal [facility] CBC panel Auto (Bld)on 12-22 Erythrocyte distribution width (RBC) [Ratio] 22.9 % High 11.5-15.0 [facility] Comment on above: Order Comment: Speci men Type: BLOOD SPECIMENOrdering Facility: [facility] Address: [address] [place] [address] Performed By: #### 5 8410-2 ####[facility] [id number] [address] [place] Hematocrit (Bld) [Volume fraction] 26.2 % Low 39.0-51.0 [facility] Comment on above: Order Comment: Speci men Type: BLOOD SPECIMENOrdering Facility: [facility] Address: [address] [place] [address] Performed By: #### 5 8410-2 ####[facility]ORYCLIA [id number] [place] [address] [place] Hemoglobin (Bld) [Mass/Vol] 8.4 g/dL Low 13.0-17.0 [facility] Comment on above: Order Comment: Speci men Type: BLOOD SPECIMENOrdering Facility: [facility] Address: [address] [place] [address] Performed By: #### 5 8410-2 ####[facility]ORYCLIA [id number] [address] [place] MCH (RBC) [Entitic mass] 31.1 pg Normal 26.0-34.0 [facility] Comment on above: Order Comment: Speci men Type: BLOOD SPECIMENOrdering Facility: [facility] Address: [address] [place] [address] Performed By: #### 5 8410-2 ####[facility]ORYCLIA [id number] [address] [place] MCHC (RBC) [Mass/Vol] 32.1 g/dL Normal 30.5-36.0 [facility] Comment on above: Order Comment: Speci men Type: BLOOD SPECIMENOrdering Facility: [facility] Address: [address] [place] [address] Performed By: #### 5 8410-2 ####[facility]ORYCLIA [id number] [address] [place] MCV (RBC) [Entitic vol] 97.0 fL Normal 80.0-100.0 [facility] Comment on above: Order Comment: Speci men Type: BLOOD SPECIMENOrdering Facility: [facility] Address: [address] [place] [address] Performed By: #### 5 8410-2 ####[facility]ORYCLIA [id number] [address] [place] Nucleated RBC (Bld) [#/Vol] 10*3/uL Normal <0.01 [facility] Comment on above: Order Comment: Speci men Type: BLOOD SPECIMENOrdering Facility: [facility] Address: [address] [place] [address] Performed By: #### 5 8410-2 ####[facility]ORYCLIA [id number] [address] [place] Platelet mean volume (Bld) [Entitic vol] 9.3 fL Normal 9.0-12.7 [facility] Comment on above: Order Comment: Speci men Type: BLOOD SPECIMENOrdering Facility: [facility] Address: [address] [place] [address] Performed By: #### 5 8410-2 ####[facility]ORYCLIA [id number] [address] [place] Platelets (Bld) [#/Vol] 522 10*3/uL High 150-400 [facility] Comment on above: Order Comment: Speci men Type: BLOOD SPECIMENOrdering Facility: [facility] Address: [address] [place] [address] Performed By: #### 5 8410-2 ####[facility]ORYCLIA [id number] [address] [place] [facility] RBC (Bld) [#/Vol] 2.70 10*6/uL Low 4.20-6.00 [facility] Comment on above: Order Comment: Speci men Type: BLOOD SPECIMENOrdering Facility: [facility] Address: [address] [place] [address] Performed By: #### 5 8410-2 ####[facility]ORYCLIA [id number] [address] [place] [facility] WBC (Bld) [#/Vol] 18.97 10*3/uL High 3.70-11.00 [facility] Comment on above: Order Comment: Speci men Type: BLOOD SPECIMENOrdering Facility: [facility] Address: [address] [place] [address] Performed By: #### 5 8410-2 ####[facility]ORYCLIA [id number] [address] [place] CNDSon 12-22-2024 CNDS Normal [facility] CONSULT PROGon 12-22-2024 CONSULT PROG Normal [facility] Comprehensive metabolic 2000 panelon 12-22-2024 Albumin [Mass/Vol] 3.2 g/dL Low 3.9-4.9 [facility] Comment on above: Order Comment: Speci men Type: BLOOD SPECIMENOrdering Facility: [facility] Address: [address] [place] [address] Performed By: #### 2 4323-8, 2777-1 ####[facility]ORYCLIA [id number] [address] [place] [facility] ALP [Catalytic activity/Vol] 122 U/L High 38-113 [facility] Comment on above: Order Comment: Speci men Type: BLOOD SPECIMENOrdering Facility: [facility] Address: [address] [place] [address] Performed By: #### 2 4323-8, 2777-1 ####[facility]ORYCLIA [id number] [place], [place] [id number] [place] [address] [place] ALT With P-5'-P [Catalytic activity/Vol] 36 U/L Normal 10-54 [facility] Comment on above: Order Comment: Speci men Type: BLOOD SPECIMENOrdering Facility: [facility] Address: [address] [place] [address] Performed By: #### 2 4323-8, 2777- ####[facility]ORYCLIA [id number] [address] [place] [facility] Anion gap [Moles/Vol] 11 mmol/L Normal 8-15 [facility] Comment on above: Order Comment: Speci men Type: BLOOD SPECIMENOrdering Facility: [facility] Address: [address] [place] [address] Performed By: #### 2 4323-8, 277- ####[facility]ORYCLIA [id number] [address] [place] [facility] AST With P-5'-P [Catalytic activity/Vol] 33 U/L Normal 14-40 [facility] Comment on above: Order Comment: Speci men Type: BLOOD SPECIMENOrdering Facility: [facility] Address: [address] [place] [address] Performed By: #### 2 4323-8, 277- ####[facility]ORYCLIA [id number] [address] [place] Bilirubin [Mass/Vol] 1.0 mg/dL Normal 0.2-1.3 [facility] Comment on above: Order Comment: Speci men Type: BLOOD SPECIMENOrdering Facility: [facility] Address: [address] [place] [address] Performed By: #### 2 4323-8, 2777- ####[facility]ORYCLIA [id number] [address] [place] Calcium [Mass/Vol] 9.2 mg/dL Normal 8.5-10.2 [facility] Comment on above: Order Comment: Speci men Type: BLOOD SPECIMENOrdering Facility: [facility] Address: [address] [place] [address] Performed By: #### 2 4323-8, 277- ####[facility]ORYCLIA [id number] [place] [address] [place] Chloride [Moles/Vol] 102 mmol/L Normal 98-107 [facility] Comment on above: Order Comment: Speci men Type: BLOOD SPECIMENOrdering Facility: [facility] Address: [address] [place] [address] Performed By: #### 2 4323-8, 277- ####[facility]ATORYCLIA [id number] [place] [id number] [place] CO2 [Moles/Vol] 22 mmol/L Normal 22-30 [facility] Comment on above: Order Comment: Speci men Type: BLOOD SPECIMENOrdering Facility: [facility] Address: [address] [place] [address] Performed By: #### 2 4323-8, 2776-07 ####[facility]ORYCLIA [id number] [place] [address] [place] Creatinine [Mass/Vol] 1.19 mg/dL Normal 0.73-1.22 [facility] Comment on above: Order Comment: Speci men Type: BLOOD SPECIMENOrdering Facility: [facility] Address: [address] [place] [address] Performed By: #### 2 4323-8, 277- ####[facility]ORYCLIA [id number] [address] Creatinine and Glomerular filtration rate.predicted panel (S/P/Bld) 66 mL/min/1.73m??? Normal >=60 [facility] Comment on above: Order Comment: Speci men Type: BLOOD SPECIMENOrdering Facility: [facility] Address: [address] [place] [address] Result Comment: Marcela mated Glomerular Filtration Rate (eGFR) is calculated using the 2020 CKD-EPI creatinine equation. This equation utilizes serum creatinine, sex, and age as parameters. The creatinine assay has traceable calibration to isotope dilution-mass spectrometry. Refer to KDIGO guidelines for clinical interpretation. In patients with unstable renal function, e.g. those with acute kidney injury, the eGFR may not accurately reflect actual GFR. Performed By: #### 2 4323-8, 2776-07 ####[facility]ATORYCLIA [id number] [place] [address] [place] Glucose [Mass/Vol] 92 mg/dL Normal 74-99 [facility] Comment on above: Order Comment: Specchioma estrada Type: BLOOD SPECIMENOrdering Facility: [facility] Address: [address] [place] [address] Result Comment: The [place] Diabetes Association (ADA) provides guidance for cutoff values for fasting glucose and random glucose. The ADA defines fasting as no caloric intake for at least 8 hours. Fasting plasma glucose results between 100 to 125 mg/dL indicate increased risk for diabetes (prediabetes).Fasting plasma glucose results greater than or equal to 126 mg/dL meet the criteria for diagnosis of diabetes. In the absence of unequivocal hyperglycemia, results should be confirmed by repeat testing. In a patient with classic symptoms of hyperglycemia or hyperglycemic crisis, random plasma glucose results greater than or equal to 200 mg/dL meet the criteria for diagnosis of diabetes.Reference: Standards of Medical Care in Diabetes 2016, [place] [employer]. Diabetes Care. 2016.39(Suppl 1). Performed By: #### 2 4323-8, 2776-07 ####[facility]ATORYCLIA [id number] [place] [address] [place] Potassium [Moles/Vol] 4.4 mmol/L Normal 3.7-5.1 [facility] Comment on above: Order Comment: Franchesca estrada Type: BLOOD SPECIMENOrdering Facility: [facility] Address: [address] [place] [id number] Performed By: #### 2 4323-8, 2776-07 ####[facility]ATORYCLIA [id number] [place] [address] [place] Protein [Mass/Vol] 6.9 g/dL Normal 6.3-8.0 [facility] Comment on above: Order Comment: Speci men Type: BLOOD SPECIMENOrdering Facility: [facility] Address: [address] [place] [address] Performed By: #### 2 4323-8, 2777-1 ####[facility]ATORYCLIA [id number] [place] [address] [place] Sodium [Moles/Vol] 135 mmol/L Low 136-144 [facility] Comment on above: Order Comment: Speci men Type: BLOOD SPECIMENOrdering Facility: [facility] Address: [address] [place] [address] Performed By: #### 2 4323-8, 277-1 ####[facility]ORYCLIA [id number] [place] [address] [place] Urea nitrogen [Mass/Vol] 29 mg/dL High 9-24 [facility] Comment on above: Order Comment: Speci men Type: BLOOD SPECIMENOrdering Facility: [facility] Address: [address] [place] [address] Performed By: #### 2 4323-8, 277- ####[facility]ORYCLIA [id number] [place] [address] [place] Phosphate SerPl-mCncon 12-22 Phosphate [Mass/Vol] 3.6 mg/dL Normal 2.7-4.8 [facility] Comment on above: Order Comment: Speci men Type: BLOOD SPECIMENOrdering Facility: [facility] Address: [address] [place] [address] Performed By: #### 2 4323-8, 2777- ####[facility]ORYCLIA [id number] [place] [address] [place] Albumin SerPl-mCncon 025 Albumin [Mass/Vol] 3.3 g/dL Low 3.9-4.9 [facility] Comment on above: Order Comment: Speci men Type: BLOOD SPECIMENOrdering Facility: [facility] Address: [address] [place] [address] Performed By: #### 2 4321-2, 12737-2, 1750-12, 2776- ####[facility]ATORYCLIA [id number] [place] [address] [place] Basic metabolic 2000 panelon 12-21-2024 Anion gap [Moles/Vol] 13 mmol/L Normal 8-15 [facility] Comment on above: Order Comment: Speci men Type: BLOOD SPECIMENOrdering Facility: [facility] Address: [address] [place] [address] Performed By: #### 2 4321-2, , 1750-12, 2776- ####[facility]ATORYCLIA [id number] [place] [id number] [place] Calcium [Mass/Vol] 9.3 mg/dL Normal 8.5-10.2 [facility] Comment on above: Order Comment: Speci men Type: BLOOD SPECIMENOrdering Facility: [facility] Address: [address] [place] [address] Performed By: #### 2 4321-2, , 1750-12, 2776- ####[facility]ORYCLIA [id number] [address] [place] Chloride [Moles/Vol] 100 mmol/L Normal 98-107 [facility] Comment on above: Order Comment: Speci men Type: BLOOD SPECIMENOrdering Facility: [facility] Address: [address] [place] [address] Performed By: #### 2 4321-2, , 1750-12, 2776- ####[facility]ATORYCLIA [id number] [place] [address] [place] CO2 [Moles/Vol] 21 mmol/L Low 22-30 [facility] Comment on above: Order Comment: Speci men Type: BLOOD SPECIMENOrdering Facility: [facility] Address: [address] [place] [address] Performed By: #### 2 4321-2, 70274-5, 1750-12, 2776-1 ####[facility]CLIA [id number] [place] [address] [place] Creatinine [Mass/Vol] 1.18 mg/dL Normal 0.73-1.22 [facility] Comment on above: Order Comment: Franchesca estrada Type: BLOOD SPECIMENOrdering Facility: [facility] Address: [address] [place] [address] Performed By: #### 2 4321-2, 89045-9, 1750-12, 2776-07 ####[facility]ITALCLIA [id number] [place] [id number] [facility] Creatinine and Glomerular filtration rate.predicted panel (S/P/Bld) 67 mL/min/1.73m??? Normal >=60 [facility] Comment on above: Order Comment: Franchesca estrada Type: BLOOD SPECIMENOrdering Facility: [facility] Address: [address] [place] [address] Result Comment: Marcela mated Glomerular Filtration Rate (eGFR) is calculated using the 2020 CKD-EPI creatinine equation. This equation utilizes serum creatinine, sex, and age as parameters. The creatinine assay has traceable calibration to isotope dilution-mass spectrometry. Refer to KDIGO guidelines for clinical interpretation. In patients with unstable renal function, e.g. those with acute kidney injury, the eGFR may not accurately reflect actual GFR. Performed By: #### 2 4321-2, , 1750-12, 2776-07 ####[facility]ATORYCLIA [id number] [place] [id number] [place] [facility] Glucose [Mass/Vol] 80 mg/dL Normal 74-99 [facility] Comment on above: Order Comment: Girishchioma [facility] Type: BLOOD SPECIMENOrdering Facility: [facility] Address: [address] [place] [address] Result Comment: The [place] Diabetes Association (ADA) provides guidance for cutoff values for fasting glucose and random glucose. The ADA defines fasting as no caloric intake for at least 8 hours. Fasting plasma glucose results between 100 to 125 mg/dL indicate increased risk for diabetes (prediabetes).Fasting plasma glucose results greater than or equal to 126 mg/dL meet the criteria for diagnosis of diabetes. In the absence of unequivocal hyperglycemia, results should be confirmed by repeat testing. In a patient with classic symptoms of hyperglycemia or hyperglycemic crisis, random plasma glucose results greater than or equal to 200 mg/dL meet the criteria for diagnosis of diabetes.Reference: Standards of Medical Care in Diabetes 2016, [place] [employer]. Diabetes Care. 2016.39(Suppl 1). Performed By: #### 2 4321-2, 83500-9, 1750-12, 2776- ####[facility]ATORYCLIA [id number] [place] [address] [place] Potassium [Moles/Vol] 4.6 mmol/L Normal 3.7-5.1 [facility] Comment on above: Order Comment: Franchesca estrada Type: BLOOD SPECIMENOrdering Facility: [facility] Address: [address] [place] [address] Performed By: #### 2 4321-2, , 1750-12, 2776- ####[facility]ITALCLIA [id number] [place] [address] [place] Sodium [Moles/Vol] 134 mmol/L Low 136-144 [facility] Comment on above: Order Comment: Franchesca estrada Type: BLOOD SPECIMENOrdering Facility: [facility] Address: [address] [place] [address] Performed By: #### 2 4321-2, , 1750-12, 2776- ####[facility]ATORYCLIA [id number] [place] [id number] [place] Urea nitrogen [Mass/Vol] 32 mg/dL High 9-24 [facility] Comment on above: Order Comment: Franchesca estrada Type: BLOOD SPECIMENOrdering Facility: [facility] Address: [address] [place] [address] Performed By: #### 2 4321-2, , 1750-12, 2776-1 ####[facility]ATORYCLIA [id number] [place] [address] [place] CASE MANAGEMon 12-21-2024 CASE MANAGEM Normal [facility] CBC panel Auto (Bld)on 12-21 Erythrocyte distribution width (RBC) [Ratio] 22.5 % High 11.5-15.0 [facility] Comment on above: Order Comment: Speci men Type: BLOOD SPECIMENOrdering Facility: [facility] Address: [address] [place] [address] Performed By: #### 5 8410-2 ####[facility]ATORYCLIA [id number] [address] OF [facility] Hematocrit (Bld) [Volume fraction] 26.6 % Low 39.0-51.0 [facility] Comment on above: Order Comment: Speci men Type: BLOOD SPECIMENOrdering Facility: [facility] Address: [address] [place] [address] Performed By: #### 5 8410-2 ####[facility]ORYCLIA [id number] [address] OF [facility] Hemoglobin (Bld) [Mass/Vol] 8.3 g/dL Low 13.0-17.0 [facility] Comment on above: Order Comment: Speci men Type: BLOOD SPECIMENOrdering Facility: [facility] Address: [address] [place] [address] Performed By: #### 5 8410-2 ####[facility]ATORYCLIA [id number] [address] STATES OF [facility] MCH (RBC) [Entitic mass] 30.3 pg Normal 26.0-34.0 [facility] Comment on above: Order Comment: Speci men Type: BLOOD SPECIMENOrdering Facility: [facility] Address: [address] [place] [address] Performed By: #### 5 8410-2 ####[facility]ATORYCLIA [id number] [address] [place] MCHC (RBC) [Mass/Vol] 31.2 g/dL Normal 30.5-36.0 [facility] Comment on above: Order Comment: Speci men Type: BLOOD SPECIMENOrdering Facility: [facility] Address: [address] [place] [address] Performed By: #### 5 8410-2 ####[facility]ORYCLIA [id number] [address] OF [facility] MCV (RBC) [Entitic vol] 97.1 fL Normal 80.0-100.0 [facility] Comment on above: Order Comment: Speci men Type: BLOOD SPECIMENOrdering Facility: [facility] Address: [address] [place] [address] Performed By: #### 5 8410-2 ####[facility]ORYCLIA [id number] [address] [place] Nucleated RBC (Bld) [#/Vol] 10*3/uL Normal <0.01 [facility] Comment on above: Order Comment: Speci men Type: BLOOD SPECIMENOrdering Facility: [facility] Address: [address] [place] [address] Performed By: #### 5 8410-2 ####[facility]ATORYCLIA [id number] [address] Platelet mean volume (Bld) [Entitic vol] 9.5 fL Normal 9.0-12.7 [facility] Comment on above: Order Comment: Speci men Type: BLOOD SPECIMENOrdering Facility: [facility] Address: [address] [place] [address] Performed By: #### 5 8410-2 ####[facility]ATORYCLIA [id number] [address] Platelets (Bld) [#/Vol] 528 10*3/uL High 150-400 [facility] Comment on above: Order Comment: Speci men Type: BLOOD SPECIMENOrdering Facility: [facility] Address: [address] [place] [address] Performed By: #### 5 8410-2 ####[facility]ATORYCLIA [id number] [address] [place] RBC (Bld) [#/Vol] 2.74 10*6/uL Low 4.20-6.00 [facility] Comment on above: Order Comment: Speci men Type: BLOOD SPECIMENOrdering Facility: [facility] Address: [address] [place] [address] Performed By: #### 5 8410-2 ####[facility]ATORYCLIA [id number] [place] [address] [place] WBC (Bld) [#/Vol] 18.15 10*3/uL High 3.70-11.00 [facility] Comment on above: Order Comment: Speci men Type: BLOOD SPECIMENOrdering Facility: [facility] Address: [address] [place] [address] Performed By: #### 5 8410-2 ####[facility]ITALCLIA [id number] [place] [address] [place] Haptoglob SerPl-mCncon 12-21 Haptoglobin [Mass/Vol] 176 mg/dL Normal 31-238 [facility] Comment on above: Order Comment: Speci men Type: BLOOD SPECIMENOrdering Facility: [facility] Address: [address] [place] [address] Performed By: #### 4 542-7, 2532-0 ####[facility]ORYCLIA [id number] [address] [place] Hgb Bld-mCncon 12-21-2024 Hemoglobin (Bld) [Mass/Vol] 8.9 g/dL Low 13.0-17.0 [facility] Comment on above: Order Comment: Speci men Type: BLOOD SPECIMENOrdering Facility: [facility] Address: [address] [place] [address] Performed By: #### 7 18-7 ####[facility]ATORYCLIA [id number] [place] [address] [place] LDH SerPl-cCncon 12-21-2024 LDH [Catalytic activity/Vol] 355 U/L High 135-225 [facility] Comment on above: Order Comment: Speci men Type: BLOOD SPECIMENOrdering Facility: [facility] Address: [address] [place], [place] [address] Performed By: #### 4 542-7, 2532-0 ####[facility]ATORYCLIA [id number] [place] [address] [place] Magnesium SerPl-ncon 12-21 Magnesium [Mass/Vol] 1.7 mg/dL Normal 1.7-2.3 [facility] Comment on above: Order Comment: Speci men Type: BLOOD SPECIMENOrdering Facility: [facility] Address: [address] [place] [address] Performed By: #### 2 4321-2, 22269-7, 1750-12, 2777-1 ####[facility]ORYCLIA [id number] [address] [place] Phosphate SerPl-mCncon 12-21 Phosphate [Mass/Vol] 3.3 mg/dL Normal 2.7-4.8 [facility] Comment on above: Order Comment: Speci men Type: BLOOD SPECIMENOrdering Facility: [facility] Address: [address] [place] [address] Performed By: #### 2 4321-2, 04574-7, 1750-12, 277-1 ####[facility]ITALCLIA [id number] [address] [place] Urinalysis complete panel (U )on 12-21-2024 Bilirubin Ql (U) Negative Normal Negative [facility] Comment on above: Order Comment: Speci men Type: URINE SPECIMENOrdering Facility: [facility] Address: [address] [place] [address] Performed By: #### 2 4356-8 ####[facility]ATORYCLIA [id number] [place] [address] [place] Clarity (Unsp spec) Clear Normal Clear [facility] Comment on above: Order Comment: Speci men Type: URINE SPECIMENOrdering Facility: [facility] Address: [address] [place] [address] Performed By: #### 2 4356-8 ####[facility]ATORYCLIA [id number] [address] [place] Color (U) Light Yellow Normal yellow [facility] Comment on above: Order Comment: Speci men Type: URINE SPECIMENOrdering Facility: [facility] Address: [address] [place] [address] Performed By: #### 2 4356-8 ####[facility]ATORYCLIA [id number] [address] [place] Glucose Test strip (U) [Mass/Vol] Negative Normal Trace, Negative [facility] Comment on above: Order Comment: Speci men Type: URINE SPECIMENOrdering Facility: [facility] Address: [address] [place] [address] Performed By: #### 2 4356-8 ####[facility]ATORYCLIA [id number] [place] [address] [place] Hemoglobin Ql (U) Negative Normal Negative, Trace [facility] Comment on above: Order Comment: Speci men Type: URINE SPECIMENOrdering Facility: [facility] Address: [address] [place] [address] Performed By: #### 2 4356-8 ####[facility]ORYCLIA [id number] [address] [place] Ketones Ql (U) Negative Normal Negative, Trace [facility] Comment on above: Order Comment: Speci men Type: URINE SPECIMENOrdering Facility: [facility] Address: [address] [place] [address] Performed By: #### 2 4356-8 ####[facility]ORYCLIA [id number] [address] [place] Leukocyte esterase Test strip Ql (U) Negative Normal Negative, 25 Yael/uL [facility] Comment on above: Order Comment: Speci men Type: URINE SPECIMENOrdering Facility: [facility] Address: [facility] [place] [address] Performed By: #### 2 4356-8 ####[facility]ATORYCLIA [id number] [address] [place] Nitrite Ql (U) Negative Normal Negative [facility] Comment on above: Order Comment: Speci men Type: URINE SPECIMENOrdering Facility: [facility] Address: [address] [place] [address] Performed By: #### 2 4356-8 ####[facility]ATORYCLIA [id number] [address] [place] pH (U) 6.0 [pH] Normal 5.0-8.0 [facility] Comment on above: Order Comment: Speci men Type: URINE SPECIMENOrdering Facility: [facility] Address: [address] [place] [address] Performed By: #### 2 4356-8 ####[facility]ATORYCLIA [id number] [address] STATES [facility] Protein (U) [Mass/Vol] Negative Normal Trace , Negative [facility] Comment on above: Order Comment: Speci men Type: URINE SPECIMENOrdering Facility: [facility] Address: [address] [place] [address] Performed By: #### 2 4356-8 ####[facility]ATORYCLIA [id number] [address] [place] RBC LM.HPF (Urine sed) [#/Area] 0-3 /HPF Normal 0-3 /HPF [facility] Comment on above: Order Comment: Speci men Type: URINE SPECIMENOrdering Facility: [facility] Address: [address] [place] [address] Performed By: #### 2 4356-8 ####[facility]ORYCLIA [id number] [address] Specific gravity (U) [Rel density] 1.006 Normal 1.005-1.030 [facility] Comment on above: Order Comment: Speci men Type: URINE SPECIMENOrdering Facility: [facility] Address: [address] [place] [address] Performed By: #### 2 4356-8 ####[facility]ATORYCLIA [id number] [address] [place] Urobilinogen Ql (U) Normal Normal Normal [facility] Comment on above: Order Comment: Speci men Type: URINE SPECIMENOrdering Facility: [facility] Address: [address] [place] [address] Performed By: #### 2 4356-8 ####[facility]ATORYCLIA [id number] [address] [place] WBC LM.HPF (Urine sed) [#/Area] 0-5 /HPF Normal 0-5 /HPF [facility] Comment on above: Order Comment: Speci men Type: URINE SPECIMENOrdering Facility: [facility] Address: [address] [place] [address] Performed By: #### 2 4356-8 ####[facility]ATORYCLIA [id number] [place] [address] [place] Albumin SerPl-mCncon 025 Albumin [Mass/Vol] 3.1 g/dL Low 3.9-4.9 [facility] Comment on above: Order Comment: Speci men Type: BLOOD SPECIMENOrdering Facility: [facility] Address: [address] [place] [address] Performed By: #### 1 751-7, 71538-8, 2777-1 ####[facility]ATORYCLIA [id number] [place] [address] [place] Basic metabolic 2000 panelon 12-20-2024 Anion gap [Moles/Vol] 12 mmol/L Normal 8-15 [facility] Comment on above: Order Comment: Speci men Type: BLOOD SPECIMENOrdering Facility: [facility] Address: [address] [place] [address] Performed By: #### 1 751-7, 76849-1, 2777-1 ####[facility]ATORYCLIA [id number] [place] [address] [place] Calcium [Mass/Vol] 8.9 mg/dL Normal 8.5-10.2 [facility] Comment on above: Order Comment: Speci men Type: BLOOD SPECIMENOrdering Facility: [facility] Address: [address] [place] [address] Performed By: #### 1 751-7, 60191-4, 2776- ####[facility]ATORYCLIA [id number] [place] [address] [place] Chloride [Moles/Vol] 99 mmol/L Normal 98-107 [facility] Comment on above: Order Comment: Speci men Type: BLOOD SPECIMENOrdering Facility: [facility] Address: [address] [place] [address] Performed By: #### 1 751-7, 13357-9, 2776- ####[facility]ATORYCLIA [id number] [place] [address] [place] CO2 [Moles/Vol] 21 mmol/L Low 22-30 [facility] Comment on above: Order Comment: Speci men Type: BLOOD SPECIMENOrdering Facility: [facility] Address: [address] [place] [address] Performed By: #### 1 751-7, 93038-0, 2776-07 ####[facility]ATORYCLIA [id number] [address] [place] Creatinine [Mass/Vol] 1.18 mg/dL Normal 0.73-1.22 [facility] Comment on above: Order Comment: Speci men Type: BLOOD SPECIMENOrdering Facility: [facility] Address: [address] [place] [address] Performed By: #### 1 751-7, 08479-2, 2776- ####[facility]ATORYCLIA [id number] [address] Creatinine and Glomerular filtration rate.predicted panel (S/P/Bld) 67 mL/min/1.73m??? Normal >=60 [facility] Comment on above: Order Comment: Speci men Type: BLOOD SPECIMENOrdering Facility: [facility] Address: [address] [place] [address] Result Comment: Marcela mated Glomerular Filtration Rate (eGFR) is calculated using the 2020 CKD-EPI creatinine equation. This equation utilizes serum creatinine, sex, and age as parameters. The creatinine assay has traceable calibration to isotope dilution-mass spectrometry. Refer to KDIGO guidelines for clinical interpretation. In patients with unstable renal function, e.g. those with acute kidney injury, the eGFR may not accurately reflect actual GFR. Performed By: #### 1 751-7, 31818-3, 2776-07 ####[facility] LABORATORYIA [id number] [place] [address] [place] Glucose [Mass/Vol] 83 mg/dL Normal 74-99 [facility] Comment on above: Order Comment: Franchesca estrada Type: BLOOD SPECIMENOrdering Facility: [facility] Address: [address] [place] [address] Result Comment: The [place] Diabetes Association (ADA) provides guidance for cutoff values for fasting glucose and random glucose. The ADA defines fasting as no caloric intake for at least 8 hours. Fasting plasma glucose results between 100 to 125 mg/dL indicate increased risk for diabetes (prediabetes).Fasting plasma glucose results greater than or equal to 126 mg/dL meet the criteria for diagnosis of diabetes. In the absence of unequivocal hyperglycemia, results should be confirmed by repeat testing. In a patient with classic symptoms of hyperglycemia or hyperglycemic crisis, random plasma glucose results greater than or equal to 200 mg/dL meet the criteria for diagnosis of diabetes.Reference: Standards of Medical Care in Diabetes 2016, [place] [employer]. Diabetes Care. 2016.39(Suppl 1). Performed By: #### 1 751-7, 57953-0, 2776-07 ####[facility]ATORYCLIA [id number] [place] [address] [place] Potassium [Moles/Vol] 4.4 mmol/L Normal 3.7-5.1 [facility] Comment on above: Order Comment: Franchesca estrada Type: BLOOD SPECIMENOrdering Facility: [facility] Address: [address] [place] [address] Performed By: #### 1 751-7, 88694-1, 2776-07 ####[facility]ATORYCLIA [id number] [address] [place] Sodium [Moles/Vol] 132 mmol/L Low 136-144 [facility] Comment on above: Order Comment: Speci men Type: BLOOD SPECIMENOrdering Facility: [facility] Address: [address] [place] [address] Performed By: #### 1 751-7, 43775-6, 2777-1 ####[facility]ATORYCLIA [id number] [address] STATES [facility] Urea nitrogen [Mass/Vol] 35 mg/dL High 9-24 [facility] Comment on above: Order Comment: Speci men Type: BLOOD SPECIMENOrdering Facility: [facility] Address: [address] [place] [address] Performed By: #### 1 751-7, 19693-0, 2777-1 ####[facility]ATORYCLIA [id number] [address] CBC panel Auto (Bld)on 12-20 Erythrocyte distribution width (RBC) [Ratio] 22.5 % High 11.5-15.0 [facility] Comment on above: Order Comment: Speci men Type: BLOOD SPECIMENOrdering Facility: [facility] Address: [address] [place] [address] Performed By: #### 7 18-7, 71275-2 ####[facility]ORYCLIA [id number] [address] [place] [facility] Hematocrit (Bld) [Volume fraction] 27.3 % Low 39.0-51.0 [facility] Comment on above: Order Comment: Speci men Type: BLOOD SPECIMENOrdering Facility: [facility] Address: [address] [place] [address] Performed By: #### 7 18-7, 76068-3 ####[facility]ORYCLIA [id number] [address] MCH (RBC) [Entitic mass] 31.6 pg Normal 26.0-34.0 [facility] Comment on above: Order Comment: Speci men Type: BLOOD SPECIMENOrdering Facility: [facility] Address: [address] [place] [address] Performed By: #### 7 18-7, 39058-0 ####[facility]ORYCLIA [id number] [address] [place] MCHC (RBC) [Mass/Vol] 31.7 g/dL Normal 30.5-36.0 [facility] Comment on above: Order Comment: Speci men Type: BLOOD SPECIMENOrdering Facility: [facility] Address: [address] [place] [address] Performed By: #### 7 18-7, 04606-7 ####[facility]ATORYCLIA [id number] [address] [place] MCV (RBC) [Entitic vol] 100.4 fL High 80.0-100.0 [facility] Comment on above: Order Comment: Speci men Type: BLOOD SPECIMENOrdering Facility: [facility] Address: [address] [place] [address] Performed By: #### 7 18-7, 51599-6 ####[facility]ORYCLIA [id number] [address] Nucleated RBC (Bld) [#/Vol] 10*3/uL Normal <0.01 [facility] Comment on above: Order Comment: Speci men Type: BLOOD SPECIMENOrdering Facility: [facility] Address: [address] [place] [address] Performed By: #### 7 18-7, 78192-4 ####[facility]ORYCLIA [id number] [address] Platelet mean volume (Bld) [Entitic vol] 10.1 fL Normal 9.0-12.7 [facility] Comment on above: Order Comment: Speci men Type: BLOOD SPECIMENOrdering Facility: [facility] Address: [address] [place] [address] Performed By: #### 7 18-7, 91746-7 ####[facility]ATORYCLIA [id number] [place] [address] [place] [facility] Platelets (Bld) [#/Vol] 552 10*3/uL High 150-400 [facility] Comment on above: Order Comment: Speci men Type: BLOOD SPECIMENOrdering Facility: [facility] Address: [address] [place] [address] Performed By: #### 7 18-7, 73069-2 ####[facility]ORYCLIA [id number] [address] OF [facility] RBC (Bld) [#/Vol] 2.72 10*6/uL Low 4.20-6.00 [facility] Comment on above: Order Comment: Speci men Type: BLOOD SPECIMENOrdering Facility: [facility] Address: [address] [place] [address] Performed By: #### 7 18-7, 98017-6 ####[facility]ORYCLIA [id number] [address] OF [facility] WBC (Bld) [#/Vol] 19.97 10*3/uL High 3.70-11.00 [facility] Comment on above: Order Comment: Speci men Type: BLOOD SPECIMENOrdering Facility: [facility] Address: [address] [place] [address] Performed By: #### 7 18-7, 41315-4 ####[facility]ATORYCLIA [id number] [place] [id number] [facility] Erythrocyte distribution width (RBC) [Ratio] 23.9 % High 11.5-15.0 [facility] Comment on above: Order Comment: Speci men Type: BLOOD SPECIMENOrdering Facility: [facility] Address: [address] [place] [address] Performed By: #### 5 8410-2 ####[facility]ATORYCLIA [id number] [place] [address] [place] Hematocrit (Bld) [Volume fraction] 20.6 % Low 39.0-51.0 [facility] Comment on above: Order Comment: Speci men Type: BLOOD SPECIMENOrdering Facility: [facility] Address: [address] [place] [address] Performed By: #### 5 8410-2 ####[facility]ORYCLIA [id number] [address] [place] Hemoglobin (Bld) [Mass/Vol] 6.7 g/dL Low 13.0-17.0 [facility] Comment on above: Order Comment: Speci men Type: BLOOD SPECIMENOrdering Facility: [facility] Address: [address] [place] [address] Performed By: #### 5 8410-2 ####[facility]ORYCLIA [id number] [address] [place] MCH (RBC) [Entitic mass] 31.0 pg Normal 26.0-34.0 [facility] Comment on above: Order Comment: Speci men Type: BLOOD SPECIMENOrdering Facility: [facility] Address: [address] [place] [address] Performed By: #### 5 8410-2 ####[facility]ORYCLIA [id number] [address] [place] MCHC (RBC) [Mass/Vol] 32.5 g/dL Normal 30.5-36.0 [facility] Comment on above: Order Comment: Speci men Type: BLOOD SPECIMENOrdering Facility: [facility] Address: [address] [place] [address] Performed By: #### 5 8410-2 ####[facility]ORYCLIA [id number] [address] [place] MCV (RBC) [Entitic vol] 95.4 fL Normal 80.0-100.0 [facility] Comment on above: Order Comment: Speci men Type: BLOOD SPECIMENOrdering Facility: [facility] Address: [address] [place] [address] Performed By: #### 5 8410-2 ####[facility]ORYCLIA [id number] [address] [place] Nucleated RBC (Bld) [#/Vol] 10*3/uL Normal <0.01 [facility] Comment on above: Order Comment: Speci men Type: BLOOD SPECIMENOrdering Facility: [facility] Address: [address] [place] [address] Performed By: #### 5 8410-2 ####[facility]ORYCLIA [id number] [address] [place] Platelet mean volume (Bld) [Entitic vol] 9.2 fL Normal 9.0-12.7 [facility] Comment on above: Order Comment: Speci men Type: BLOOD SPECIMENOrdering Facility: [facility] Address: [address] [place] [address] Performed By: #### 5 8410-2 ####[facility]ORYCLIA [id number] [address] Platelets (Bld) [#/Vol] 470 10*3/uL High 150-400 [facility] Comment on above: Order Comment: Speci men Type: BLOOD SPECIMENOrdering Facility: [facility] [facility] Address: [address] [place] [address] Performed By: #### 5 8410-2 ####[facility] LABORATORYCLIA [id number] [address] [place] RBC (Bld) [#/Vol] 2.16 10*6/uL Low 4.20-6.00 [facility] Comment on above: Order Comment: Speci men Type: BLOOD SPECIMENOrdering Facility: [facility] Address: [address] [place] [address] Performed By: #### 5 8410-2 ####[facility] LABORATORYCLIA [id number] [address] [place] WBC (Bld) [#/Vol] 19.00 10*3/uL High 3.70-11.00 [facility] Comment on above: Order Comment: Speci men Type: BLOOD SPECIMENOrdering Facility: [facility] Address: [address] [place] [address] Performed By: #### 5 8410-2 ####[facility] LABORATORYCLIA [id number] [place] [address] [place] Haptoglob SerPl-mCncon 12-20 Haptoglobin [Mass/Vol] 130 mg/dL Normal 31-238 [facility] Comment on above: Order Comment: Speci men Type: BLOOD SPECIMENOrdering Facility: [facility] Address: [address] [place] [address] Performed By: #### 4 542-7, 2532-0 ####[facility] LABORATORYCLIA [id number] [place] [address] [place] Hgb Bld-mCncon 12-20-2024 Hemoglobin (Bld) [Mass/Vol] 7.2 g/dL Low 13.0-17.0 [facility] Comment on above: Order Comment: Speci men Type: BLOOD SPECIMENOrdering Facility: [facility] Address: [address] [place] [address] Performed By: #### 7 18-7, 29849-3 ####[facility] LABORATORYCLIA [id number] [place] [address] [place] LDH SerPl-cCncon 12-20-2024 LDH [Catalytic activity/Vol] 350 U/L High 135-225 [facility] Comment on above: Order Comment: Speci men Type: BLOOD SPECIMENOrdering Facility: [facility] Address: [address] [place] [address] Performed By: #### 4 542-7, 2532-0 ####[facility] LABORATORYCLIA [id number] [place] [address] [place] Phosphate SerPl-mCncon 12-20 Phosphate [Mass/Vol] 3.4 mg/dL Normal 2.7-4.8 [facility] Comment on above: Order Comment: Speci men Type: BLOOD SPECIMENOrdering Facility: [facility] Address: [address] [place] [address] Performed By: #### 1 751-7, 00978-8, 2777-1 ####[facility] LABORATORYCLIA [id number] [address] TYPE + SCREENon 12-20-2024 ABO B Normal [facility] Comment on above: Order Comment: Speci men Type: BLOOD SPECIMENOrdering Facility: [facility] Address: [address] [place] [address] Performed By: #### T SCR ####[facility] B[facility] BANKCLIA [id number] [address] Rh Nom (Bld) Positive Normal [facility] Comment on above: Order Comment: Speci men Type: BLOOD SPECIMENOrdering Facility: [facility] Address: [address] [place] [address] Performed By: #### T SCR ####[facility] BLO[facility] BANKCLIA [id number] [address] TYPE AND SCREEN EXPIRATION 12/23/2024 23:59 Normal [facility] Comment on above: Order Comment: Speci men Type: BLOOD SPECIMENOrdering Facility: [facility] Address: [address] [place] [address] Performed By: #### T SCR ####[facility] BLO[facility] BANKCLIA [id number] [place] [address] [place] [facility] [place] Albumin SerPl-mCncon 025 Albumin [Mass/Vol] 3.1 g/dL Low 3.9-4.9 [facility] Comment on above: Order Comment: Speci men Type: BLOOD SPECIMENOrdering Facility: [facility] Address: [address] [place] [address] Performed By: #### 1 751-7, 33291-9, 09717-7 ####[facility]ORATORYCLIA [id number] [place] [id number] [place] Basic metabolic 2000 panelon 12-19-2024 Anion gap [Moles/Vol] 14 mmol/L Normal 8-15 [facility] Comment on above: Order Comment: Speci men Type: BLOOD SPECIMENOrdering Facility: [facility] Address: [address] [place] [address] Performed By: #### 1 751-7, , ####[facility] LABORATORYCLIA [id number] [place] [address] [place] Calcium [Mass/Vol] 9.2 mg/dL Normal 8.5-10.2 [facility] Comment on above: Order Comment: Speci men Type: BLOOD SPECIMENOrdering Facility: [facility] Address: [address] [place] [address] Performed By: #### 1 751-7, , ####[facility] LABORATORYCLIA [id number] [place] [address] [place] Chloride [Moles/Vol] 99 mmol/L Normal 98-107 [facility] Comment on above: Order Comment: Speci men Type: BLOOD SPECIMENOrdering Facility: [facility] Address: [address] [place] [address] Performed By: #### 1 751-7, , ####[facility] LABORATORYCLIA [id number] [place] [address] [place] CO2 [Moles/Vol] 22 mmol/L Normal 22-30 [facility] Comment on above: Order Comment: Speci men Type: BLOOD SPECIMENOrdering Facility: [facility] Address: [address] [place] [address] Performed By: #### 1 751-7, , ####[facility] LABORATORYCLIA [id number] [place] [address] [place] Creatinine [Mass/Vol] 1.28 mg/dL High 0.73-1.22 [facility] Comment on above: Order Comment: Speci men Type: BLOOD SPECIMENOrdering Facility: [facility] Address: [address] [place] [address] Performed By: #### 1 751-7, 93687-4, 11361-2 ####[facility] BENDIA [id number] [place] [id number] [place] Creatinine and Glomerular filtration rate.predicted panel (S/P/Bld) 61 mL/min/1.73m??? Normal >=60 [facility] Comment on above: Order Comment: Franchesca estrada Type: BLOOD SPECIMENOrdering Facility: [facility] Address: [address] [place] [address] Result Comment: Marcela mated Glomerular Filtration Rate (eGFR) is calculated using the 2020 CKD-EPI creatinine equation. This equation utilizes serum creatinine, sex, and age as parameters. The creatinine assay has traceable calibration to isotope dilution-mass spectrometry. Refer to KDIGO guidelines for clinical interpretation. In patients with unstable renal function, e.g. those with acute kidney injury, the eGFR may not accurately reflect actual GFR. Performed By: #### 1 751-7, 24335-8, 97840-9 ####[facility] BENDIA [id number] [place] [address] [place] Glucose [Mass/Vol] 90 mg/dL Normal 74-99 [facility] Comment on above: Order Comment: Franchesca estrada Type: BLOOD SPECIMENOrdering Facility: [facility] Address: [address] [place] [address] Result Comment: The [place] Diabetes [employer] (ADA) provides guidance for cutoff values for fasting glucose and random glucose. The ADA defines fasting as no caloric intake for at least 8 hours. Fasting plasma glucose results between 100 to 125 mg/dL indicate increased risk for diabetes (prediabetes).Fasting plasma glucose results greater than or equal to 126 mg/dL meet the criteria for diagnosis of diabetes. In the absence of unequivocal hyperglycemia, results should be confirmed by repeat testing. In a patient with classic symptoms of hyperglycemia or hyperglycemic crisis, random plasma glucose results greater than or equal to 200 mg/dL meet the criteria for diagnosis of diabetes.Reference: Standards of Medical Care in Diabetes 2016, [place] [employer]. Diabetes Care. 2016.39(Suppl 1). Performed By: #### 1 751-7, , ####[facility] LABORATORYCLIA [id number] [place] [address] [place] Potassium [Moles/Vol] 4.5 mmol/L Normal 3.7-5.1 [facility] Comment on above: Order Comment: Speci men Type: BLOOD SPECIMENOrdering Facility: [facility] Address: [address] [place] [address] Performed By: #### 1 751-7, , 01321-3 ####[facility] LABORATORYCLIA [id number] [place] [id number] [place] Sodium [Moles/Vol] 135 mmol/L Low 136-144 [facility] Comment on above: Order Comment: Speci men Type: BLOOD SPECIMENOrdering Facility: [facility] Address: [address] [place] [address] Performed By: #### 1 751-7, , ####[facility] LABORATORYCLIA [id number] [address] STATES [place] [facility] Urea nitrogen [Mass/Vol] 33 mg/dL High 9-24 [facility] Comment on above: Order Comment: Speci men Type: BLOOD SPECIMENOrdering Facility: [facility] Address: [address] [place] [address] Performed By: #### 1 751-7, , 28974-3 ####[facility] LABORATORYCLIA [id number] [address] [place] CBC panel Auto (Bld)on 12-19 Erythrocyte distribution width (RBC) [Ratio] 23.0 % High 11.5-15.0 [facility] Comment on above: Order Comment: Speci men Type: BLOOD SPECIMENOrdering Facility: [facility] Address: [address] [place] [address] Performed By: #### 5 8410-2 ####[facility] LABORATORYCLIA [id number] [address] Hematocrit (Bld) [Volume fraction] 22.2 % Low 39.0-51.0 [facility] Comment on above: Order Comment: Speci men Type: BLOOD SPECIMENOrdering Facility: [facility] Address: [address] [place] [address] Performed By: #### 5 8410-2 ####[facility] LABORATORYCLIA [id number] [address] OF [facility] Hemoglobin (Bld) [Mass/Vol] 7.0 g/dL Low 13.0-17.0 [facility] Comment on above: Order Comment: Speci men Type: BLOOD SPECIMENOrdering Facility: [facility] Address: [address] [place] [address] Performed By: #### 5 8410-2 ####[facility] LABORATORYCLIA [id number] [address] STATES [place] [facility] MCH (RBC) [Entitic mass] 30.8 pg Normal 26.0-34.0 [facility] Comment on above: Order Comment: Speci men Type: BLOOD SPECIMENOrdering Facility: [facility] Address: [address] [place] [address] Performed By: #### 5 8410-2 ####[facility] LABORATORYCLIA [id number] [address] OF [facility] MCHC (RBC) [Mass/Vol] 31.5 g/dL Normal 30.5-36.0 [facility] Comment on above: Order Comment: Speci men Type: BLOOD SPECIMENOrdering Facility: [facility] Address: [address] [place] [address] Performed By: #### 5 8410-2 ####[facility] LABORATORYCLIA [id number] [address] MCV (RBC) [Entitic vol] 97.8 fL Normal 80.0-100.0 [facility] Comment on above: Order Comment: Speci men Type: BLOOD SPECIMENOrdering Facility: [facility] Address: [address] [place] [address] Performed By: #### 5 8410-2 ####[facility] LABORATORYCLIA [id number] [address] [place] Nucleated RBC (Bld) [#/Vol] 10*3/uL Normal <0.01 [facility] Comment on above: Order Comment: Speci men Type: BLOOD SPECIMENOrdering Facility: [facility] Address: [address] [place] [address] Performed By: #### 5 8410-2 ####[facility] LABORATORYCLIA [id number] [address] [place] Platelet mean volume (Bld) [Entitic vol] 9.5 fL Normal 9.0-12.7 [facility] Comment on above: Order Comment: Speci men Type: BLOOD SPECIMENOrdering Facility: [facility] Address: [address] [place] [address] Performed By: #### 5 8410-2 ####[facility] LABORATORYCLIA [id number] [address] [place] Platelets (Bld) [#/Vol] 491 10*3/uL High 150-400 [facility] Comment on above: Order Comment: Speci men Type: BLOOD SPECIMENOrdering Facility: [facility] Address: [address] [place] [address] Performed By: #### 5 8410-2 ####[facility] LABORATORYCLIA [id number] [address] [place] RBC (Bld) [#/Vol] 2.27 10*6/uL Low 4.20-6.00 [facility] Comment on above: Order Comment: Speci men Type: BLOOD SPECIMENOrdering Facility: [facility] Address: [address] [place] [address] Performed By: #### 5 8410-2 ####[facility] LABORATORYCLIA [id number] [address] [place] WBC (Bld) [#/Vol] 17.20 10*3/uL High 3.70-11.00 [facility] Comment on above: Order Comment: Speci men Type: BLOOD SPECIMENOrdering Facility: [facility] Address: [address] [place] [address] Performed By: #### 5 8410-2 ####[facility]PITALCLIA [id number] [place] [address] [place] Haptoglob SerPl-mCncon 12-19 Haptoglobin [Mass/Vol] 97 mg/dL Normal 31-238 [facility] Comment on above: Order Comment: Speci men Type: BLOOD SPECIMENOrdering Facility: [facility] Address: [address] [place] [address] Performed By: #### 4 542-7, 2532-0 ####[facility] LABORATORYCLIA [id number] [place] [address] [place] LDH SerPl-cCncon 12-19-2024 LDH [Catalytic activity/Vol] 405 U/L High 135-225 [facility] Comment on above: Order Comment: Speci men Type: BLOOD SPECIMENOrdering Facility: [facility] Address: [address] [place] [address] Performed By: #### 4 542-7, 2532-0 ####[facility] LABORATORYCLIA [id number] [address] [place] Magnesium SerPl-mCncon 12-19 Magnesium [Mass/Vol] 1.8 mg/dL Normal 1.7-2.3 [facility] Comment on above: Order Comment: Speci men Type: BLOOD SPECIMENOrdering Facility: [facility] Address: [address] [place] [address] Performed By: #### 1 751-7, 68852-3, 68832-4 ####[facility] LABORATORYCLIA [id number] [place] [address] [place] Basic metabolic 2000 panelon 12-18-2024 Anion gap [Moles/Vol] 14 mmol/L Normal 8-15 [facility] Comment on above: Order Comment: Speci men Type: BLOOD SPECIMENOrdering Facility: [facility] Address: [address] [place], [place] [address] [address] Performed By: #### 2 4321-2, 2532-0, 7 ####[facility] LABORATORYCLIA [id number] [place] [address] [place] Calcium [Mass/Vol] 9.3 mg/dL Normal 8.5-10.2 [facility] Comment on above: Order Comment: Speci men Type: BLOOD SPECIMENOrdering Facility: [facility] Address: [address] [place] [address] Performed By: #### 2 4321-2, 253-0, 7 ####[facility] LABORATORYCLIA [id number] [place] [address] [place] Chloride [Moles/Vol] 98 mmol/L Normal 98-107 [facility] Comment on above: Order Comment: Speci men Type: BLOOD SPECIMENOrdering Facility: [facility] Address: [facility] [place] [address] Performed By: #### 2 4321-2, 2531-0, 4541-12 ####[facility] LABORATORYCLIA [id number] [place] [address] [place] CO2 [Moles/Vol] 23 mmol/L Normal 22-30 [facility] Comment on above: Order Comment: Speci men Type: BLOOD SPECIMENOrdering Facility: [facility] Address: [address] [place] [address] Performed By: #### 2 4321-2, 2531-0, 7 ####[facility] LABORATORYCLIA [id number] [place] [address] [place] Creatinine [Mass/Vol] 1.48 mg/dL High 0.73-1.22 [facility] Comment on above: Order Comment: Speci men Type: BLOOD SPECIMENOrdering Facility: [facility] Address: [address] [place] [address] Performed By: #### 2 4321-2, 2532-0, 7 ####[facility] LABORATORYCLIA [id number] [place] [address] [place] Creatinine and Glomerular filtration rate.predicted panel (S/P/Bld) 51 mL/min/1.73m??? Low >=60 [facility] Comment on above: Order Comment: Franchesca estrada Type: BLOOD SPECIMENOrdering Facility: [facility] Address: [address] [place] [address] Result Comment: Marcela mated Glomerular Filtration Rate (eGFR) is calculated using the 2020 CKD-EPI creatinine equation. This equation utilizes serum creatinine, sex, and age as parameters. The creatinine assay has traceable calibration to isotope dilution-mass spectrometry. Refer to KDIGO guidelines for clinical interpretation. In patients with unstable renal function, e.g. those with acute kidney injury, the eGFR may not accurately reflect actual GFR. Performed By: #### 2 4321-2, 2532-0, 454-7 ####[facility] LABORATORYCLIA [id number] [place] [address] [place] Glucose [Mass/Vol] 93 mg/dL Normal 74-99 [facility] Comment on above: Order Comment: Franchesca estrada Type: BLOOD SPECIMENOrdering Facility: [facility] Address: [address] [place] [address] Result Comment: The [place] Diabetes Association (ADA) provides guidance for cutoff values for fasting glucose and random glucose. The ADA defines fasting as no caloric intake for at least 8 hours. Fasting plasma glucose results between 100 to 125 mg/dL indicate increased risk for diabetes (prediabetes).Fasting plasma glucose results greater than or equal to 126 mg/dL meet the criteria for diagnosis of diabetes. In the absence of unequivocal hyperglycemia, results should be confirmed by repeat testing. In a patient with classic symptoms of hyperglycemia or hyperglycemic crisis, random plasma glucose results greater than or equal to 200 mg/dL meet the criteria for diagnosis of diabetes.Reference: Standards of Medical Care in Diabetes 2016, [place] [employer]. Diabetes Care. 2016.39(Suppl 1). Performed By: #### 2 4321-2, 2532-0, 454-7 ####[facility] LABORATORYCLIA [id number] [place] [id number] [place] Potassium [Moles/Vol] 5.1 mmol/L Normal 3.7-5.1 [facility] Comment on above: Order Comment: Speci men Type: BLOOD SPECIMENOrdering Facility: [facility] Address: [address] [place] [address] Performed By: #### 2 4321-2, 2532-0, 7 ####[facility] LABORATORYCLIA [id number] [address] STATES [facility] Sodium [Moles/Vol] 135 mmol/L Low 136-144 [facility] Comment on above: Order Comment: Speci men Type: BLOOD SPECIMENOrdering Facility: [facility] Address: [address] [place] [address] Performed By: #### 2 4321-2, 2531-0, 7 ####[facility] LABORATORYCLIA [id number] [address] STATES OF [facility] Urea nitrogen [Mass/Vol] 32 mg/dL High 9-24 [facility] Comment on above: Order Comment: Speci men Type: BLOOD SPECIMENOrdering Facility: [facility] Address: [address] [place] [address] Performed By: #### 2 4321-2, 2531-0, 7 ####[facility] LABORATORYCLIA [id number] [address] [place] CASE MANAGEMon 12-18-2024 CASE MANAGEM Normal [facility] CBC panel Auto (Bld)on 12-18 Erythrocyte distribution width (RBC) [Ratio] 22.7 % High 11.5-15.0 [facility] Comment on above: Order Comment: Speci men Type: BLOOD SPECIMENOrdering Facility: [facility] Address: [address] [place] [address] Performed By: #### 5 8410-2 ####[facility] LABORATORYCLIA [id number] [address] [place] Hematocrit (Bld) [Volume fraction] 22.9 % Low 39.0-51.0 [facility] Comment on above: Order Comment: Speci men Type: BLOOD SPECIMENOrdering Facility: [facility] Address: [address] [place] [address] Performed By: #### 5 8410-2 ####[facility] LABORATORYCLIA [id number] [address] Hemoglobin (Bld) [Mass/Vol] 7.2 g/dL Low 13.0-17.0 [facility] Comment on above: Order Comment: Speci men Type: BLOOD SPECIMENOrdering Facility: [facility] Address: [address] [place] [address] Performed By: #### 5 8410-2 ####[facility] LABORATORYCLIA [id number] [address] MCH (RBC) [Entitic mass] 30.3 pg Normal 26.0-34.0 [facility] Comment on above: Order Comment: Speci men Type: BLOOD SPECIMENOrdering Facility: [facility] Address: [address] [place] [address] Performed By: #### 5 8410-2 ####[facility] LABORATORYCLIA [id number] [address] MCHC (RBC) [Mass/Vol] 31.4 g/dL Normal 30.5-36.0 [facility] Comment on above: Order Comment: Speci men Type: BLOOD SPECIMENOrdering Facility: [facility] Address: [address] [place] [address] Performed By: #### 5 8410-2 ####[facility] LABORATORYCLIA [id number] [address] MCV (RBC) [Entitic vol] 96.2 fL Normal 80.0-100.0 [facility] Comment on above: Order Comment: Speci men Type: BLOOD SPECIMENOrdering Facility: [facility] Address: [address] [place] [address] Performed By: #### 5 8410-2 ####[facility] LABORATORYCLIA [id number] [place] [address] [place] Nucleated RBC (Bld) [#/Vol] 10*3/uL Normal <0.01 [facility] Comment on above: Order Comment: Speci men Type: BLOOD SPECIMENOrdering Facility: [facility] Address: [address] [place] [address] Performed By: #### 5 8410-2 ####[facility] LABORATORYCLIA [id number] [place] [address] [place] Platelet mean volume (Bld) [Entitic vol] 9.7 fL Normal 9.0-12.7 [facility] Comment on above: Order Comment: Speci men Type: BLOOD SPECIMENOrdering Facility: [facility] Address: [address] [place] [address] Performed By: #### 5 8410-2 ####[facility] LABORATORYCLIA [id number] [address] [place] Platelets (Bld) [#/Vol] 478 10*3/uL High 150-400 [facility] Comment on above: Order Comment: Speci men Type: BLOOD SPECIMENOrdering Facility: [facility] Address: [address] [place] [address] Performed By: #### 5 8410-2 ####[facility] LABORATORYCLIA [id number] [address] [place] RBC (Bld) [#/Vol] 2.38 10*6/uL Low 4.20-6.00 [facility] Comment on above: Order Comment: Speci men Type: BLOOD SPECIMENOrdering Facility: [facility] Address: [address] [place] [address] Performed By: #### 5 8410-2 ####[facility] LABORATORYCLIA [id number] [address] [place] WBC (Bld) [#/Vol] 21.61 10*3/uL High 3.70-11.00 [facility] Comment on above: Order Comment: Speci men Type: BLOOD SPECIMENOrdering Facility: [facility] Address: [address] [place], [place] [address] Performed By: #### 5 8410-2 ####[facility] LABORATORYCLIA [id number] [address] Haptoglob SerPl-mCncon 12-18 Haptoglobin [Mass/Vol] Normal [facility] Comment on above: Order Comment: Speci men Type: BLOOD SPECIMENOrdering Facility: [facility] Address: [address] [place] [address] Result Comment: Unab le to assay due to interference from hemolysis. Suggest reorder as clinically indicated. Performed By: #### 2 4321-2, 2532-0, 4542-7 ####[facility] LABORATORYCLIA [id number] [address] OF [facility] LDH SerPl-cCncon 12-18-2024 LDH [Catalytic activity/Vol] 495 U/L High 135-225 [facility] Comment on above: Order Comment: Speci men Type: BLOOD SPECIMENOrdering Facility: [facility] Address: [address] [place] [address] Performed By: #### 2 4321-2, 2532-0, 4542-7 ####[facility]ITALCLIA [id number] [address] STATES OF [facility] Phosphate SerPl-mCncon 12-18 Phosphate [Mass/Vol] 3.4 mg/dL Normal 2.7-4.8 [facility] Comment on above: Order Comment: Speci men Type: BLOOD SPECIMENOrdering Facility: [facility] Address: [address] [place] [address] Performed By: #### 2 777-1 ####[facility]ATORYCLIA [id number] [address] STATES OF [facility] CBC W Auto Differential pane l (Bld)on 12-17-2024 Anisocytosis Ql (Bld) Present Normal [facility] Comment on above: Order Comment: Speci men Type: BLOOD SPECIMENOrdering Facility: [facility] Address: [address] [place] [address] Performed By: #### 5 7021-8 ####[facility]ORYCLIA [id number] [address] [place] Basophils (Bld) [#/Vol] 0.00 10*3/uL Normal <0.11 [facility] Comment on above: Order Comment: Speci men Type: BLOOD SPECIMENOrdering Facility: [facility] Address: [address] [place] [address] Performed By: #### 5 7021-8 ####[facility] [facility]ORYCLIA [id number] [address] Basophils/100 WBC (Bld) 0.0 % Normal [facility] Comment on above: Order Comment: Speci men Type: BLOOD SPECIMENOrdering Facility: [facility] Address: [address] [place] [address] Performed By: #### 5 7021-8 ####[facility] [facility]ORYCLIA [id number] [address] Differential cell count method Nom (Bld) Manual Normal [facility] Comment on above: Order Comment: Speci men Type: BLOOD SPECIMENOrdering Facility: [facility] Address: [address] [place] [address] Performed By: #### 5 7021-8 ####[facility] [facility]ORYCLIA [id number] [address] OF [place] Eosinophils (Bld) [#/Vol] 0.00 10*3/uL Normal <0.46 [facility] Comment on above: Order Comment: Speci men Type: BLOOD SPECIMENOrdering Facility: [facility] Address: [address] [place] [address] Performed By: #### 5 7021-8 ####[facility] [facility]ORYCLIA [id number] [address] Eosinophils/100 WBC (Bld) 0.0 % Normal [facility] Comment on above: Order Comment: Speci men Type: BLOOD SPECIMENOrdering Facility: [facility] Address: [address] [place] [address] Performed By: #### 5 7021-8 ####[facility]ATORYCLIA [id number] [address] [place] Erythrocyte distribution width (RBC) [Ratio] 22.6 % High 11.5-15.0 [facility] Comment on above: Order Comment: Speci men Type: BLOOD SPECIMENOrdering Facility: [facility] Address: [address] [place] [address] Performed By: #### 5 7021-8 ####[facility]ATORYCLIA [id number] [address] [place] Hematocrit (Bld) [Volume fraction] 22.5 % Low 39.0-51.0 [facility] Comment on above: Order Comment: Speci men Type: BLOOD SPECIMENOrdering Facility: [facility] Address: [address] [place] [address] Performed By: #### 5 7021-8 ####[facility]ATORYCLIA [id number] [address] [place] Hemoglobin (Bld) [Mass/Vol] 7.2 g/dL Low 13.0-17.0 [facility] Comment on above: Order Comment: Speci men Type: BLOOD SPECIMENOrdering Facility: [facility] Address: [address] [place] [address] Performed By: #### 5 7021-8 ####[facility]ATORYCLIA [id number] [place] [address] [place] Lymphocytes (Bld) [#/Vol] 0.50 10*3/uL Low 1.00-4.00 [facility] Comment on above: Order Comment: Speci men Type: BLOOD SPECIMENOrdering Facility: [facility] Address: [address] [place] [address] Performed By: #### 5 7021-8 ####[facility]ATORYCLIA [id number] [address] [place] Lymphocytes/100 WBC (Bld) 3.0 % Normal [facility] Comment on above: Order Comment: Speci men Type: BLOOD SPECIMENOrdering Facility: [facility] Address: [address] [place] [address] Performed By: #### 5 7021-8 ####[facility]ATORYCLIA [id number] [address] MCH (RBC) [Entitic mass] 29.9 pg Normal 26.0-34.0 [facility] Comment on above: Order Comment: Speci men Type: BLOOD SPECIMENOrdering Facility: [facility] Address: [address] [place] [address] Performed By: #### 5 7021-8 ####[facility]ATORYCLIA [id number] [address] MCHC (RBC) [Mass/Vol] 32.0 g/dL Normal 30.5-36.0 [facility] Comment on above: Order Comment: Speci men Type: BLOOD SPECIMENOrdering Facility: [facility] Address: [address] [place] [address] Performed By: #### 5 7021-8 ####[facility]ORYCLIA [id number] [address] MCV (RBC) [Entitic vol] 93.4 fL Normal 80.0-100.0 [facility] Comment on above: Order Comment: Speci men Type: BLOOD SPECIMENOrdering Facility: [facility] Address: [address] [place] [address] Performed By: #### 5 7021-8 ####[facility]ORYCLIA [id number] [address] Metamyelocytes/100 WBC (Bld) 5.0 % Normal [facility] Comment on above: Order Comment: Speci men Type: BLOOD SPECIMENOrdering Facility: [facility] Address: [address] [place] [address] Performed By: #### 5 7021-8 ####[facility]ORATORYCLIA [id number] [place] [address] [place] Monocytes (Bld) [#/Vol] 0.84 10*3/uL Normal <0.87 [facility] Comment on above: Order Comment: Speci men Type: BLOOD SPECIMENOrdering Facility: [facility] Address: [address] [place] [address] Performed By: #### 5 7021-8 ####[facility] [facility]ORYCLIA [id number] [address] [place] Monocytes/100 WBC (Bld) 5.0 % Normal [facility] Comment on above: Order Comment: Speci men Type: BLOOD SPECIMENOrdering Facility: [facility] Address: [address] [place] [address] Performed By: #### 5 7021-8 ####[facility] [facility]ORYCLIA [id number] [address] MYELO% 3.0 % Normal [facility] Comment on above: Order Comment: Speci men Type: BLOOD SPECIMENOrdering Facility: [facility] Address: [address] [place] [address] Performed By: #### 5 7021-8 ####[facility]ORYCLIA [id number] [address] [place] Neutrophils (Bld) [#/Vol] 14.07 10*3/uL High 1.45-7.50 [facility] Comment on above: Order Comment: Speci men Type: BLOOD SPECIMENOrdering Facility: [facility] Address: [address] [place] [address] Performed By: #### 5 7021-8 ####[facility] [facility]ORYCLIA [id number] [address] [place] Neutrophils/100 WBC (Bld) 84.0 % Normal [facility] Comment on above: Order Comment: Speci men Type: BLOOD SPECIMENOrdering Facility: [facility] Address: [address] [place] [address] Performed By: #### 5 7021-8 ####[facility]ORYCLIA [id number] [address] [place] Nucleated RBC (Bld) [#/Vol] 10*3/uL Normal <0.01 [facility] Comment on above: Order Comment: Speci men Type: BLOOD SPECIMENOrdering Facility: [facility] Address: [address] [place] [address] Performed By: #### 5 7021-8 ####[facility]ATORYCLIA [id number] [place] [address] [place] Nucleated RBC/100 WBC (Bld) [Ratio] 0.0 /100 WBC Normal [facility] Comment on above: Order Comment: Speci men Type: BLOOD SPECIMENOrdering Facility: [facility] Address: [address] [place] [address] Performed By: #### 5 7021-8 ####[facility]ATORYCLIA [id number] [place] [address] [place] Platelet mean volume (Bld) [Entitic vol] 9.4 fL Normal 9.0-12.7 [facility] Comment on above: Order Comment: Speci men Type: BLOOD SPECIMENOrdering Facility: [facility] Address: [address] [place] [address] Performed By: #### 5 7021-8 ####[facility]ATORYCLIA [id number] [address] [place] Platelets (Bld) [#/Vol] 434 10*3/uL High 150-400 [facility] Comment on above: Order Comment: Speci men Type: BLOOD SPECIMENOrdering Facility: [facility] Address: [address] [place] [address] Performed By: #### 5 7021-8 ####[facility]ATORYCLIA [id number] [address] [place] Platelets Estimate (Bld) [#/Vol] Adequate Normal [facility] Comment on above: Order Comment: Speci men Type: BLOOD SPECIMENOrdering Facility: [facility] Address: [address] [place] [address] Performed By: #### 5 7021-8 ####[facility]ORYCLIA [id number] [address] Polychromasia LM Ql (Bld) Slight Normal [facility] Comment on above: Order Comment: Speci men Type: BLOOD SPECIMENOrdering Facility: [facility] Address: [address] [place] [address] Performed By: #### 5 7021-8 ####[facility]ORYCLIA [id number] [address] RBC (Bld) [#/Vol] 2.41 10*6/uL Low 4.20-6.00 [facility] Comment on above: Order Comment: Speci men Type: BLOOD SPECIMENOrdering Facility: [facility] Address: [address] [place] [address] Performed By: #### 5 7021-8 ####[facility]ATORYCLIA [id number] [address] RED CELL MORPH Reviewed: see result s of individual morphologies Normal [facility] Comment on above: Order Comment: Speci men Type: BLOOD SPECIMENOrdering Facility: [facility] Address: [address] [place] [address] Performed By: #### 5 7021-8 ####[facility]ATORYCLIA [id number] [address] WBC (Bld) [#/Vol] 16.75 10*3/uL High 3.70-11.00 [facility] Comment on above: Order Comment: Speci men Type: BLOOD SPECIMENOrdering Facility: [facility] Address: [address] [place] [address] Performed By: #### 5 7021-8 ####[facility]ATORYCLIA [id number] [address] CONSULTon 12-17-2024 CONSULT Normal [facility] Hepatic function 2000 panelo n 12-17-2024 Albumin [Mass/Vol] 3.0 g/dL Low 3.9-4.9 [facility] Comment on above: Order Comment: Speci men Type: BLOOD SPECIMENOrdering Facility: [facility] Address: [address] [place] [address] Performed By: #### 2 4362-6, , 37951-7 ####[facility]ATORYCLIA [id number] [address] [place] ALP [Catalytic activity/Vol] 160 U/L High 38-113 [facility] Comment on above: Order Comment: Speci men Type: BLOOD SPECIMENOrdering Facility: [facility] Address: [address] [place] [address] Performed By: #### 2 4362-6, , ####[facility]ATORYCLIA [id number] [place] [address] [place] ALT With P-5'-P [Catalytic activity/Vol] 25 U/L Normal 10-54 [facility] Comment on above: Order Comment: Speci men Type: BLOOD SPECIMENOrdering Facility: [facility] Address: [address] [place] [address] Performed By: #### 2 4362-6, , ####[facility]ORYCLIA [id number] [address] STATES OF [facility] AST With P-5'-P [Catalytic activity/Vol] 45 U/L High 14-40 [facility] Comment on above: Order Comment: Speci men Type: BLOOD SPECIMENOrdering Facility: [facility] Address: [address] [place] [address] Performed By: #### 2 4362-6, , 09205-6 ####[facility]ATORYCLIA [id number] [place] [address] [place] Bilirubin [Mass/Vol] 4.1 mg/dL High 0.2-1.3 [facility] Comment on above: Order Comment: Speci men Type: BLOOD SPECIMENOrdering Facility: [facility] Address: [address] [place] [address] Performed By: #### 2 4362-6, 37952-5, 93521-5 ####[facility]ATORYCLIA [id number] [place] [address] [place] Bilirubin.conjugated [Mass/Vol] 2.9 mg/dL High <0.3 [facility] Comment on above: Order Comment: Speci men Type: BLOOD SPECIMENOrdering Facility: [facility] Address: [address] [place] [address] Performed By: #### 2 4362-6, , 87426-3 ####[facility]ATORYCLIA [id number] [place] [address] [place] Protein [Mass/Vol] 7.1 g/dL Normal 6.3-8.0 [facility] Comment on above: Order Comment: Speci men Type: BLOOD SPECIMENOrdering Facility: [facility] Address: [address] [place] [address] Performed By: #### 2 4362-6, , 60265-4 ####[facility]ATORYCLIA [id number] [place] [id number] [place] Magnesium SerPl-mCncon 12-17 Magnesium [Mass/Vol] 2.2 mg/dL Normal 1.7-2.3 [facility] Comment on above: Order Comment: Speci men Type: BLOOD SPECIMENOrdering Facility: [facility] Address: [address] [place] [address] Performed By: #### 2 4362-6, , 62861-7 ####[facility]ATORYCLIA [id number] [place] [address] [place] Renal function 2000 panelon 12-17-2024 Albumin [Mass/Vol] 2.8 g/dL Low 3.9-4.9 [facility] Comment on above: Order Comment: Speci men Type: BLOOD SPECIMENOrdering Facility: [facility] Address: [address] [place] [address] Performed By: #### 2 4362-6, , ####[facility]ORYCLIA [id number] [place] [address] [place] Anion gap [Moles/Vol] 12 mmol/L Normal 8-15 [facility] Comment on above: Order Comment: Speci men Type: BLOOD SPECIMENOrdering Facility: [facility] Address: [address] [place] [address] Performed By: #### 2 4362-6, , ####[facility]ATORYCLIA [id number] [place] [address] [place] Calcium [Mass/Vol] 9.1 mg/dL Normal 8.5-10.2 [facility] Comment on above: Order Comment: Speci men Type: BLOOD SPECIMENOrdering Facility: [facility] Address: [address] [place] [address] Performed By: #### 2 4362-6, , ####[facility]ATORYCLIA [id number] [place] [address] [place] Chloride [Moles/Vol] 97 mmol/L Low 98-107 [facility] Comment on above: Order Comment: Speci men Type: BLOOD SPECIMENOrdering Facility: [facility] Address: [address] [place] [address] Performed By: #### 2 4362-6, , ####[facility]ATORYCLIA [id number] [place] [address] [place] CO2 [Moles/Vol] 23 mmol/L Normal 22-30 [facility] Comment on above: Order Comment: Speci men Type: BLOOD SPECIMENOrdering Facility: [facility] Address: [address] [place] [address] Performed By: #### 2 4362-6, , ####[facility]ATORYCLIA [id number] [place] [address] [place] Creatinine [Mass/Vol] 1.56 mg/dL High 0.73-1.22 [facility] Comment on above: Order Comment: Franchesca estrada Type: BLOOD SPECIMENOrdering Facility: [facility] Address: [address] [place] [address] Performed By: #### 2 4362-6, 11196-8, 69313-5 ####[facility]ATORYCLIA [id number] [address] [place] Creatinine and Glomerular filtration rate.predicted panel (S/P/Bld) 48 mL/min/1.73m??? Low >=60 [facility] Comment on above: Order Comment: Franchesca estrada Type: BLOOD SPECIMENOrdering Facility: [facility] Address: [address] [place] [address] Result Comment: Marcela mated Glomerular Filtration Rate (eGFR) is calculated using the 2020 CKD-EPI creatinine equation. This equation utilizes serum creatinine, sex, and age as parameters. The creatinine assay has traceable calibration to isotope dilution-mass spectrometry. Refer to KDIGO guidelines for clinical interpretation. In patients with unstable renal function, e.g. those with acute kidney injury, the eGFR may not accurately reflect actual GFR. Performed By: #### 2 4362-6, 58459-1, 49778-0 ####[facility]ATORYCLIA [id number] [place] [address] [place] Glucose [Mass/Vol] 101 mg/dL High 74-99 [facility] Comment on above: Order Comment: Franchesca estrada Type: BLOOD SPECIMENOrdering Facility: [facility] Address: [address] [place] [address] Result Comment: The [place] Diabetes Association (ADA) provides guidance for cutoff values for fasting glucose and random glucose. The ADA defines fasting as no caloric intake for at least 8 hours. Fasting plasma glucose results between 100 to 125 mg/dL indicate increased risk for diabetes (prediabetes).Fasting plasma glucose results greater than or equal to 126 mg/dL meet the criteria for diagnosis of diabetes. In the absence of unequivocal hyperglycemia, results should be confirmed by repeat testing. In a patient with classic symptoms of hyperglycemia or hyperglycemic crisis, random plasma glucose results greater than or equal to 200 mg/dL meet the criteria for diagnosis of diabetes.Reference: Standards of Medical Care in Diabetes 2016, [place] [employer]. Diabetes Care. 2016.39(Suppl 1). Performed By: #### 2 4362-6, , 65796-7 ####[facility]ATORYCLIA [id number] [place] [id number] [place] Phosphate [Mass/Vol] 3.3 mg/dL Normal 2.7-4.8 [facility] Comment on above: Order Comment: Speci men Type: BLOOD SPECIMENOrdering Facility: [facility] Address: [address] [place] [address] Performed By: #### 2 4362-6, , 40529-4 ####[facility]ATORYCLIA [id number] [place] [address] [place] Potassium [Moles/Vol] 4.7 mmol/L Normal 3.7-5.1 [facility] Comment on above: Order Comment: Speci men Type: BLOOD SPECIMENOrdering Facility: [facility] Address: [address] [place] [address] Performed By: #### 2 4362-6, , 63895-8 ####[facility]ATORYCLIA [id number] [place] [address] [place] Sodium [Moles/Vol] 132 mmol/L Low 136-144 [facility] Comment on above: Order Comment: Speci men Type: BLOOD SPECIMENOrdering Facility: [facility] Address: [address] [place] [address] Performed By: #### 2 4362-6, , 38935-8 ####[facility]ATORYCLIA [id number] [place] [id number] [place] Urea nitrogen [Mass/Vol] 28 mg/dL High 9-24 [facility] Comment on above: Order Comment: Speci men Type: BLOOD SPECIMENOrdering Facility: [facility] Address: [address] [place] [address] Performed By: #### 2 4362-6, , 12395-5 ####[facility]ITALCLIA [id number] [place] [address] [place] CASE MANAGEMon 12-16-2024 CASE MANAGEM Normal [facility] CBC W Auto Differential pane l (Bld)on 12-16-2024 Anisocytosis Ql (Bld) Present [facility] Comment on above: Order Comment: Speci men Type: BLOOD SPECIMENOrdering Facility: [facility] Address: [address] [place] [address] Performed By: #### 5 7021-8, 23987-4 ####[facility]ATORYCLIA [id number] [address] STATES OF [facility] Basophils (Bld) [#/Vol] 0.00 10*3/uL Normal <0.11 [facility] Comment on above: Order Comment: Speci men Type: BLOOD SPECIMENOrdering Facility: [facility] Address: [address] [place] [address] Performed By: #### 5 7021-8, 47199-5 ####[facility]ATORYCLIA [id number] [address] [place] Basophils/100 WBC (Bld) 0.0 % Normal [facility] Comment on above: Order Comment: Speci men Type: BLOOD SPECIMENOrdering Facility: [facility] Address: [address] [place] [address] Performed By: #### 5 7021-8, 10029-0 ####[facility]ATORYCLIA [id number] [place] [id number] [facility] [place] Differential cell count method Nom (Bld) Manual Normal [facility] Comment on above: Order Comment: Speci men Type: BLOOD SPECIMENOrdering Facility: [facility] Address: [address] [place] [address] Performed By: #### 5 7021-8, 60409-3 ####[facility]ATORYCLIA [id number] [place] [address] [place] Eosinophils (Bld) [#/Vol] 0.00 10*3/uL Normal <0.46 [facility] Comment on above: Order Comment: Speci men Type: BLOOD SPECIMENOrdering Facility: [facility] Address: [address] [place] [address] Performed By: #### 5 7021-8, 78474-3 ####[facility]ATORYCLIA [id number] [address] STATES OF [facility] Eosinophils/100 WBC (Bld) 0.0 % Normal [facility] Comment on above: Order Comment: Speci men Type: BLOOD SPECIMENOrdering Facility: [facility] Address: [address] [place] [address] Performed By: #### 5 7021-8, 57489-8 ####[facility]ORATORYCLIA [id number] [address] [place] Erythrocyte distribution width (RBC) [Ratio] 23.5 % High 11.5-15.0 [facility] Comment on above: Order Comment: Speci men Type: BLOOD SPECIMENOrdering Facility: [facility] Address: [address] [place] [address] Performed By: #### 5 7021-8, 90666-4 ####[facility]ATORYCLIA [id number] [address] STATES OF [facility] Hematocrit (Bld) [Volume fraction] 19.9 % Low 39.0-51.0 [facility] Comment on above: Order Comment: Speci men Type: BLOOD SPECIMENOrdering Facility: [facility] Address: [address] [place] [address] Performed By: #### 5 7021-8, 14766-1 ####[facility]ATORYCLIA [id number] [address] [place] Hemoglobin (Bld) [Mass/Vol] 6.6 g/dL Low 13.0-17.0 [facility] Comment on above: Order Comment: Speci men Type: BLOOD SPECIMENOrdering Facility: [facility] Address: [address] [place] [address] Performed By: #### 5 7021-8, 77710-4 ####[facility]ATORYCLIA [id number] [place], [place] [id number] [place] [address] [place] Lymphocytes (Bld) [#/Vol] 0.23 10*3/uL Low 1.00-4.00 [facility] Comment on above: Order Comment: Speci men Type: BLOOD SPECIMENOrdering Facility: [facility] Address: [address] [place] [address] Performed By: #### 5 7021-8, 19943-4 ####[facility] LABORATORYCLIA [id number] [address] Lymphocytes/100 WBC (Bld) 1.0 % Normal [facility] Comment on above: Order Comment: Speci men Type: BLOOD SPECIMENOrdering Facility: [facility] Address: [address] [place] [address] Performed By: #### 5 7021-8, 81518-5 ####[facility] LABORATORYCLIA [id number] [address] [place] MCH (RBC) [Entitic mass] 31.7 pg Normal 26.0-34.0 [facility] Comment on above: Order Comment: Speci men Type: BLOOD SPECIMENOrdering Facility: [facility] Address: [address] [place] [address] Performed By: #### 5 7021-8, 13632-2 ####[facility]ORATORYCLIA [id number] [address] [place] MCHC (RBC) [Mass/Vol] 33.2 g/dL Normal 30.5-36.0 [facility] Comment on above: Order Comment: Speci men Type: BLOOD SPECIMENOrdering Facility: [facility] Address: [address] [place] [address] Performed By: #### 5 7021-8, 51302-4 ####[facility] LABORATORYCLIA [id number] [address] [place] MCV (RBC) [Entitic vol] 95.7 fL Normal 80.0-100.0 [facility] Comment on above: Order Comment: Speci men Type: BLOOD SPECIMENOrdering Facility: [facility] Address: [address] [place] [address] Performed By: #### 5 7021-8, 31217-8 ####[facility]ATORYCLIA [id number] [address] [place] Metamyelocytes/100 WBC (Bld) 2.0 % Normal [facility] Comment on above: Order Comment: Speci men Type: BLOOD SPECIMENOrdering Facility: [facility] Address: [address] [place] [address] Performed By: #### 5 7021-8, 95402-5 ####[facility]ORATORYCLIA [id number] [address] [place] Monocytes (Bld) [#/Vol] 0.94 10*3/uL High <0.87 [facility] Comment on above: Order Comment: Speci men Type: BLOOD SPECIMENOrdering Facility: [facility] Address: [address] [place] [address] Performed By: #### 5 7021-8, 55594-8 ####[facility] LABORATORYCLIA [id number] [address] STATES OF [facility] Monocytes/100 WBC (Bld) 4.0 % Normal [facility] Comment on above: Order Comment: Speci men Type: BLOOD SPECIMENOrdering Facility: [facility] Address: [address] [place] [address] Performed By: #### 5 7021-8, 56083-1 ####[facility]ATORYCLIA [id number] [address] [place] MYELO% 1.0 % Normal [facility] Comment on above: Order Comment: Speci men Type: BLOOD SPECIMENOrdering Facility: [facility] Address: [address] [place] [address] Performed By: #### 5 7021-8, 98361-8 ####[facility]ORATORYCLIA [id number] [place] [id number] [place] [address] [place] Neutrophils (Bld) [#/Vol] 21.52 10*3/uL High 1.45-7.50 [facility] Comment on above: Order Comment: Speci men Type: BLOOD SPECIMENOrdering Facility: [facility] Address: [address] [place] [address] Performed By: #### 5 7021-8, 19461-8 ####[facility]ORATORYCLIA [id number] [address] [place] Neutrophils/100 WBC (Bld) 92.0 % Normal [facility] Comment on above: Order Comment: Speci men Type: BLOOD SPECIMENOrdering Facility: [facility] Address: [address] [place] [address] Performed By: #### 5 7021-8, 46971-7 ####[facility]ORATORYCLIA [id number] [place] [address] [place] Nucleated RBC (Bld) [#/Vol] 10*3/uL Normal <0.01 [facility] Comment on above: Order Comment: Speci men Type: BLOOD SPECIMENOrdering Facility: [facility] Address: [facility] [place] [address] Performed By: #### 5 7021-8, 25491-1 ####[facility]ORATORYCLIA [id number] [address] [place] Nucleated RBC/100 WBC (Bld) [Ratio] 0.0 /100 WBC Normal [facility] Comment on above: Order Comment: Speci men Type: BLOOD SPECIMENOrdering Facility: [facility] Address: [address] [place] [address] Performed By: #### 5 7021-8, 36466-5 ####[facility]ORATORYCLIA [id number] [address] [place] Platelet mean volume (Bld) [Entitic vol] 9.5 fL Normal 9.0-12.7 [facility] Comment on above: Order Comment: Speci men Type: BLOOD SPECIMENOrdering Facility: [facility] Address: [address] [place] [address] Performed By: #### 5 7021-8, 13804-9 ####[facility]ATORYCLIA [id number] [place], [place] [id number] [place] [address] [place] Platelets (Bld) [#/Vol] 422 10*3/uL High 150-400 [facility] Comment on above: Order Comment: Speci men Type: BLOOD SPECIMENOrdering Facility: [facility] Address: [address] [place] [address] Performed By: #### 5 7021-8, 05517-8 ####[facility]ORATORYCLIA [id number] [place], [place] [id number] [place] [address] [place] Platelets Estimate (Bld) [#/Vol] Increased Normal [facility] Comment on above: Order Comment: Speci men Type: BLOOD SPECIMENOrdering Facility: [facility] Address: [address] [place] [address] Performed By: #### 5 7021-8, 13958-9 ####[facility] LABORATORYCLIA [id number] [place], [place] [id number] [place] [address] [place] Polychromasia LM Ql (Bld) Slight Normal [facility] Comment on above: Order Comment: Speci men Type: BLOOD SPECIMENOrdering Facility: [facility] Address: [address] [place] [address] Performed By: #### 5 7021-8, 62295-5 ####[facility]ORATORYCLIA [id number] [place], [place] [id number] [place] [address] [place] RBC (Bld) [#/Vol] 2.08 10*6/uL Low 4.20-6.00 [facility] Comment on above: Order Comment: Speci men Type: BLOOD SPECIMENOrdering Facility: [facility] Address: [address] [place] [address] Performed By: #### 5 7021-8, 26132-9 ####[facility] LABORATORYCLIA [id number] [address] [place] RED CELL MORPH Reviewed: see result s of individual morphologies Normal [facility] Comment on above: Order Comment: Speci men Type: BLOOD SPECIMENOrdering Facility: [facility] Address: [address] [place] [address] Performed By: #### 5 7021-8, 49307-7 ####[facility]ORATORYCLIA [id number] [place] [address] [place] WBC (Bld) [#/Vol] 23.39 10*3/uL High 3.70-11.00 [facility] Comment on above: Order Comment: Speci men Type: BLOOD SPECIMENOrdering Facility: [facility] Address: [address] [place] [address] Performed By: #### 5 7021-8, 22554-6 ####[facility]ORATORYCLIA [id number] [address] [place] WBC Left Shift Ql (Bld) Present Normal A [facility] Comment on above: Order Comment: Speci men Type: BLOOD SPECIMENOrdering Facility: [facility] Address: [address] [place] [address] Performed By: #### 5 7021-8, 58162-5 ####[facility]ORATORYCLIA [id number] [address] CBC W Ordered Manual Differe ntial panel (Bld)on 12-16-2024 ANISOCYTOSIS Present Normal [facility] Comment on above: Order Comment: Speci men Type: BLOOD SPECIMENOrdering Facility: [facility] Address: [address] [place] [address] Performed By: #### 5 7782-5, STFREV ####[facility]ATORYCLIA [id number] [address] [place] Basophils (Bld) [#/Vol] 0.00 10*3/uL Normal <0.11 [facility] Comment on above: Order Comment: Speci men Type: BLOOD SPECIMENOrdering Facility: [facility] Address: [address] [place] [address] Performed By: #### 5 7782-5, STFREV ####[facility]ATORYCLIA [id number] [address] [place] Basophils/100 WBC (Bld) 0.0 % Normal A [facility] Comment on above: Order Comment: Speci men Type: BLOOD SPECIMENOrdering Facility: [facility] Address: [address] [place] [address] Performed By: #### 5 7782-5, STFREV ####[facility]ATORYCLIA [id number] [address] Differential cell count method Nom (Bld) Manual Normal [facility] Comment on above: Order Comment: Speci men Type: BLOOD SPECIMENOrdering Facility: [facility] Address: [address] [place] [address] Performed By: #### 5 7782-5, STFREV ####[facility]ATORYCLIA [id number] [address] STATES OF [facility] Eosinophils (Bld) [#/Vol] 0.00 10*3/uL Normal <0.46 [facility] Comment on above: Order Comment: Speci men Type: BLOOD SPECIMENOrdering Facility: [facility] Address: [address] [place] [address] Performed By: #### 5 7782-5, STFREV ####[facility]ATORYCLIA [id number] [address] Eosinophils/100 WBC (Bld) 0.0 % Normal [facility] Comment on above: Order Comment: Speci men Type: BLOOD SPECIMENOrdering Facility: [facility] Address: [address] [place] [address] Performed By: #### 5 7782-5, STFREV ####[facility]ATORYCLIA [id number] [address] Erythrocyte distribution width (RBC) [Ratio] 21.5 % High 11.5-15.0 [facility] Comment on above: Order Comment: Speci men Type: BLOOD SPECIMENOrdering Facility: [facility] Address: [address] [place] [address] Performed By: #### 5 7782-5, STFREV ####[facility]ORYCLIA [id number] [address] [place] Hematocrit (Bld) [Volume fraction] 23.8 % Low 39.0-51.0 [facility] Comment on above: Order Comment: Speci men Type: BLOOD SPECIMENOrdering Facility: [facility] Address: [address] [place] [address] Performed By: #### 5 7782-5, STFREV ####[facility]ATORYCLIA [id number] [address] [place] Hemoglobin (Bld) [Mass/Vol] 7.7 g/dL Low 13.0-17.0 [facility] Comment on above: Order Comment: Speci men Type: BLOOD SPECIMENOrdering Facility: [facility] Address: [address] [place] [address] Performed By: #### 5 7782-5, STFREV ####[facility]ORATORYCLIA [id number] [address] [place] Lymphocytes (Bld) [#/Vol] 0.61 10*3/uL Low 1.00-4.00 [facility] Comment on above: Order Comment: Speci men Type: BLOOD SPECIMENOrdering Facility: [facility] Address: [address] [place] [address] Performed By: #### 5 7782-5, STFREV ####[facility]ORATORYCLIA [id number] [address] [place] Lymphocytes/100 WBC (Bld) 3.0 % Normal [facility] Comment on above: Order Comment: Speci men Type: BLOOD SPECIMENOrdering Facility: [facility] Address: [address] [place] [address] Performed By: #### 5 7782-5, STFREV ####[facility] LABORATORYCLIA [id number] [address] MCH (RBC) [Entitic mass] 30.1 pg Normal 26.0-34.0 [facility] Comment on above: Order Comment: Speci men Type: BLOOD SPECIMENOrdering Facility: [facility] Address: [address] [place] [address] Performed By: #### 5 7782-5, STFREV ####[facility]ATORYCLIA [id number] [address] [place] MCHC (RBC) [Mass/Vol] 32.4 g/dL Normal 30.5-36.0 [facility] Comment on above: Order Comment: Speci men Type: BLOOD SPECIMENOrdering Facility: [facility] Address: [address] [place] [address] Performed By: #### 5 7782-5, STFREV ####[facility]ATORYCLIA [id number] [address] MCV (RBC) [Entitic vol] 93.0 fL Normal 80.0-100.0 [facility] Comment on above: Order Comment: Speci men Type: BLOOD SPECIMENOrdering Facility: [facility] Address: [address] [place] [address] Performed By: #### 5 7782-5, STFREV ####[facility]ATORYCLIA [id number] [address] META% 4.0 % Normal [facility] Comment on above: Order Comment: Speci men Type: BLOOD SPECIMENOrdering Facility: [facility] Address: [address] [place] [address] Performed By: #### 5 7782-5, STFREV ####[facility]ORATORYCLIA [id number] [address] Monocytes (Bld) [#/Vol] 1.23 10*3/uL High <0.87 [facility] Comment on above: Order Comment: Speci men Type: BLOOD SPECIMENOrdering Facility: [facility] Address: [address] [place] [address] Performed By: #### 5 7782-5, STFREV ####[facility] LABORATORYCLIA [id number] [address] [place] Monocytes/100 WBC (Bld) 6.0 % Normal A [facility] Comment on above: Order Comment: Speci men Type: BLOOD SPECIMENOrdering Facility: [facility] Address: [address] [place] [address] Performed By: #### 5 7782-5, STFREV ####[facility] LABORATORYCLIA [id number] [address] OF [facility] MYELO% 1.0 % Normal [facility] Comment on above: Order Comment: Speci men Type: BLOOD SPECIMENOrdering Facility: [facility] Address: [address] [place] [address] Performed By: #### 5 7782-5, STFREV ####[facility]ORYCLIA [id number] [address] OF [facility] Neutrophils (Bld) [#/Vol] 17.60 10*3/uL High 1.45-7.50 [facility] Comment on above: Order Comment: Speci men Type: BLOOD SPECIMENOrdering Facility: [facility] Address: [address] [place] [address] Performed By: #### 5 7782-5, STFREV ####[facility]ORYCLIA [id number] [address] Neutrophils/100 WBC (Bld) 86.0 % Normal [facility] Comment on above: Order Comment: Speci men Type: BLOOD SPECIMENOrdering Facility: [facility] Address: [address] [place] [address] Performed By: #### 5 7782-5, STFREV ####[facility]ORATORYCLIA [id number] [place] [address] [place] Nucleated RBC (Bld) [#/Vol] 10*3/uL Normal <0.01 [facility] Comment on above: Order Comment: Speci men Type: BLOOD SPECIMENOrdering Facility: [facility] Address: [address] [place] [address] Performed By: #### 5 7782-5, STFREV ####[facility] LABORATORYCLIA [id number] [address] Nucleated RBC/100 WBC (Bld) [Ratio] 0.0 /100 WBC Normal [facility] Comment on above: Order Comment: Speci men Type: BLOOD SPECIMENOrdering Facility: [facility] Address: [facility] [place] [address] Performed By: #### 5 7782-5, STFREV ####[facility]ORATORYCLIA [id number] [address] [place] Platelet mean volume (Bld) [Entitic vol] 9.5 fL Normal 9.0-12.7 [facility] Comment on above: Order Comment: Speci men Type: BLOOD SPECIMENOrdering Facility: [facility] Address: [address] [place] [address] Performed By: #### 5 7782-5, STFREV ####[facility]ORATORYCLIA [id number] [address] [place] Platelets (Bld) [#/Vol] 435 10*3/uL High 150-400 [facility] Comment on above: Order Comment: Speci men Type: BLOOD SPECIMENOrdering Facility: [facility] Address: [address] [place] [address] Performed By: #### 5 7782-5, STFREV ####[facility]ORYCLIA [id number] [address] [place] Platelets Estimate (Bld) [#/Vol] Increased Normal [facility] Comment on above: Order Comment: Speci men Type: BLOOD SPECIMENOrdering Facility: [facility] Address: [address] [place] [address] Performed By: #### 5 7782-5, STFREV ####[facility]ATORYCLIA [id number] [place] [address] Polychromasia LM Ql (Bld) Slight Normal [facility] Comment on above: Order Comment: Speci men Type: BLOOD SPECIMENOrdering Facility: [facility] Address: [address] [place] [address] Performed By: #### 5 7782-5, STFREV ####[facility]ATORYCLIA [id number] [address] [place] RBC (Bld) [#/Vol] 2.56 10*6/uL Low 4.20-6.00 [facility] Comment on above: Order Comment: Speci men Type: BLOOD SPECIMENOrdering Facility: [facility] Address: [address] [place] [address] Performed By: #### 5 7782-5, STFREV ####[facility]ORATORYCLIA [id number] [address] [place]ORPH Reviewed: see result s of individual morphologies Normal [facility] Comment on above: Order Comment: Speci men Type: BLOOD SPECIMENOrdering Facility: [facility] Address: [address] [place] [address] Performed By: #### 5 7782-5, STFREV ####[facility]ATORYCLIA [id number] [address] STATES OF [facility] WBC (Bld) [#/Vol] 20.47 10*3/uL High 3.70-11.00 [facility] Comment on above: Order Comment: Speci men Type: BLOOD SPECIMENOrdering Facility: [facility] Address: [address] [place] [address] Performed By: #### 5 7782-5, STFREV ####[facility]ATORYCLIA [id number] [address] LEDY DIRECTon 12-16-2024 DAGT, ANTI-C3B,C3D Positive Normal [facility] Comment on above: Order Comment: Speci men Type: BLOOD SPECIMENOrdering Facility: [facility] Address: [address] [place] [address] Performed By: #### D AGT ####[facility] BANKCLIA [id number] [address] DAGT, ANTI-IGG Negative Normal [facility] Comment on above: Order Comment: Speci men Type: BLOOD SPECIMENOrdering Facility: [facility] Address: [facility] [place] [address] Performed By: #### D AGT ####[facility] B[facility] BANKCLIA [id number] [address] [place] DAGT, POLYSPECIFIC AHG Positive Normal [facility] Comment on above: Order Comment: Speci men Type: BLOOD SPECIMENOrdering Facility: [facility] Address: [address] [place] [address] Performed By: #### D AGT ####[facility] BANKCLIA [id number] [address] TYPE AND SCREEN EXPIRATION 12/19/2024 23:59 Normal [facility] Comment on above: Order Comment: Speci men Type: BLOOD SPECIMENOrdering Facility: [facility] Address: [address] [place] [address] Performed By: #### D AGT ####[facility] BLO[facility] BANKCLIA [id number] [address] OF [place] Haptoglob SerPl-mCncon 12-16 Haptoglobin [Mass/Vol] mg/dL Low 31-238 [facility] Comment on above: Order Comment: Speci men Type: BLOOD SPECIMENOrdering Facility: [facility] Address: [address] [place] [address] Performed By: #### 4 542-7 ####[facility] LABORATORYCLIA [id number] [address] Hep Func 2000 Pnl SerPlon Bilirubin.conjugated [Mass/Vol] 3.4 mg/dL High <0.3 [facility] Comment on above: Order Comment: Speci men Type: BLOOD SPECIMENOrdering Facility: [facility] Address: [address] [place] [address] Performed By: #### D ESTRELLITA, 60533-8, 61328-4 ####[facility] LABORATORYCLIA [id number] [address] Hepatic function 2000 panelo n 12-16-2024 ALP [Catalytic activity/Vol] 125 U/L High 38-113 [facility] Comment on above: Order Comment: Speci men Type: BLOOD SPECIMENOrdering Facility: [facility] Address: [address] [place] [address] Performed By: #### D ESTRELLITA, 03704-9, 18677-7 ####[facility] LABORATORYCLIA [id number] [address] OF [facility] ALT With P-5'-P [Catalytic activity/Vol] 23 U/L Normal 10-54 [facility] Comment on above: Order Comment: Speci men Type: BLOOD SPECIMENOrdering Facility: [facility] Address: [address] [place] [address] Performed By: #### D ESTRELLITA, 51650-3, 81476-1 ####[facility] LABORATORYCLIA [id number] [address] AST With P-5'-P [Catalytic activity/Vol] 39 U/L Normal 14-40 [facility] Comment on above: Order Comment: Speci men Type: BLOOD SPECIMENOrdering Facility: [facility] Address: [address] [place] [address] Performed By: #### D ESTRELLITA, 21711-9, 03423-1 ####[facility]ATORYCLIA [id number] [address] STATES OF [facility] Bilirubin [Mass/Vol] 4.8 mg/dL High 0.2-1.3 [facility] Comment on above: Order Comment: Speci men Type: BLOOD SPECIMENOrdering Facility: [facility] Address: [address] [place] [address] Performed By: #### D ESTRELLITA, 47644-0, 98503-9 ####[facility] LABORATORYCLIA [id number] [address] [place] Protein [Mass/Vol] 7.1 g/dL Normal 6.3-8.0 [facility] Comment on above: Order Comment: Speci men Type: BLOOD SPECIMENOrdering Facility: [facility] Address: [address] [place] [address] Performed By: #### D ESTRELLITA, 03834-2, 51598-8 ####[facility] LABORATORYCLIA [id number] [address] OF [place] LDH SerPl-cCncon 12-16-2024 LDH [Catalytic activity/Vol] 570 U/L High 135-225 [facility] Comment on above: Order Comment: Speci men Type: BLOOD SPECIMENOrdering Facility: [facility] Address: [address] [place] [address] Performed By: #### 2 532-0 ####[facility] LABORATORYCLIA [id number] [address] [place] NUTRITIONon 12-16-2024 NUTRITION Normal [facility] PATHOLOGIST INTERPRETATION C BC/DIFFon 12-16-2024 [employer] Reception[employer] review Jani (Unsp spec) [Interp] Reviewed by Kasi Figueroa MD [facility] Comment on above: Order Comment: Speci men Type: BLOOD SPECIMENOrdering Facility: [facility] Address: [address] [place] [address] Performed By: #### 5 7782-5, STFREV ####[facility] LABORATORYCLIA [id number] [address] OF [place] STAFF REVIEW, CBCDIF Review of the peripheral smear reveals normocytic anemia, leukocytosis (neutrophilia, absolute monocytosis) and mild thrombocytosis. Granulocytes are slightly left-shifted with otherwise normal morphology. Clinical correlation is recommended. Normal [facility] Comment on above: Order Comment: Speci men Type: BLOOD SPECIMENOrdering Facility: [facility] Address: [address] [place] [address] Performed By: #### 5 7782-5, STFREV ####[facility] LABORATORYCLIA [id number] [place] [address] [place] Renal Func 2000 Pnl SerPlon 12-16-2024 Albumin [Mass/Vol] 3.0 g/dL Low 3.9-4.9 [facility] Comment on above: Order Comment: Speci men Type: BLOOD SPECIMENOrdering Facility: [facility] Address: [address] [place] [address] Performed By: #### D ESTRELLITA, 17176-6, 44058-1 ####[facility] LABORATORYCLIA [id number] [place] [address] [place] Renal function 2000 panelon 12-16-2024 Anion gap [Moles/Vol] 14 mmol/L Normal 8-15 [facility] Comment on above: Order Comment: Speci men Type: BLOOD SPECIMENOrdering Facility: [facility] Address: [address] [place] [address] Performed By: #### D ESTRELLITA, 66204-4, 86817-4 ####[facility] LABORATORYCLIA [id number] [place] [address] [place] Calcium [Mass/Vol] 9.0 mg/dL Normal 8.5-10.2 [facility] Comment on above: Order Comment: Speci men Type: BLOOD SPECIMENOrdering Facility: [facility] Address: [address] [place] [address] Performed By: #### D ESTRELLITA, [id number], [id number] ####[facility] LABORATORYCLIA [id number] [place] [address] [place] Chloride [Moles/Vol] 91 mmol/L Low 98-107 [facility] Comment on above: Order Comment: Speci men Type: BLOOD SPECIMENOrdering Facility: [facility] Address: [address] [place] [address] Performed By: #### D ESTRELLITA, 99648-8, 40643-5 ####[facility]ATORYCLIA [id number] [place] [address] [place] CO2 [Moles/Vol] 23 mmol/L Normal 22-30 [facility] Comment on above: Order Comment: Speci men Type: BLOOD SPECIMENOrdering Facility: [facility] Address: [address] [place] [address] Performed By: #### D ESTRELLITA, 91464-0, 13109-1 ####[facility] LABORATORYCLIA [id number] [place] [address] [place] Creatinine [Mass/Vol] 1.92 mg/dL High 0.73-1.22 [facility] Comment on above: Order Comment: Speci men Type: BLOOD SPECIMENOrdering Facility: [facility] Address: [address] [place] [address] Performed By: #### D ESTRELLITA, 30796-6, 25199-4 ####[facility] LABORATORYCLIA [id number] [address] STATES OF [facility] Creatinine and Glomerular filtration rate.predicted panel (S/P/Bld) 37 mL/min/1.73m??? Low >=60 [facility] Comment on above: Order Comment: Speci men Type: BLOOD SPECIMENOrdering Facility: [facility] Address: [address] [place] [address] Result Comment: Marcela mated Glomerular Filtration Rate (eGFR) is calculated using the 2020 CKD-EPI creatinine equation. This equation utilizes serum creatinine, sex, and age as parameters. The creatinine assay has traceable calibration to isotope dilution-mass spectrometry. Refer to KDIGO guidelines for clinical interpretation. In patients with unstable renal function, e.g. those with acute kidney injury, the eGFR may not accurately reflect actual GFR. Performed By: #### D ESTRELLITA, 11470-9, 88782-3 ####[facility]ATORYCLIA [id number] [address] [place] Glucose [Mass/Vol] 106 mg/dL High 74-99 [facility] Comment on above: Order Comment: Speci men Type: BLOOD SPECIMENOrdering Facility: [facility] Address: [address] [place] [address] Result Comment: The [place] Diabetes Association (ADA) provides guidance for cutoff values for fasting glucose and random glucose. The ADA defines fasting as no caloric intake for at least 8 hours. Fasting plasma glucose results between 100 to 125 mg/dL indicate increased risk for diabetes (prediabetes).Fasting plasma glucose results greater than or equal to 126 mg/dL meet the criteria for diagnosis of diabetes. In the absence of unequivocal hyperglycemia, results should be confirmed by repeat testing. In a patient with classic symptoms of hyperglycemia or hyperglycemic crisis, random plasma glucose results greater than or equal to 200 mg/dL meet the criteria for diagnosis of diabetes.Reference: Standards of Medical Care in Diabetes 2016, [place] [employer] Association. Diabetes Care. 2016.39(Suppl 1). Performed By: #### D ESTRELLITA, 13424-2, 32418-7 ####[facility]ATORYCLIA [id number] [place] [address] [place] Phosphate [Mass/Vol] 4.4 mg/dL Normal 2.7-4.8 [facility] Comment on above: Order Comment: Speci men Type: BLOOD SPECIMENOrdering Facility: [facility] Address: [address] [place] [address] Performed By: #### D ESTRELLITA, 88025-4, 87447-2 ####[facility]ATORYCLIA [id number] [place] [address] [place] Potassium [Moles/Vol] 4.3 mmol/L Normal 3.7-5.1 [facility] Comment on above: Order Comment: Speci men Type: BLOOD SPECIMENOrdering Facility: [facility] Address: [address] [place] [address] Performed By: #### D ESTRELLITA, 12285-8, 62525-0 ####[facility]ATORYCLIA [id number] [place] [address] [place] Sodium [Moles/Vol] 128 mmol/L Low 136-144 [facility] Comment on above: Order Comment: Speci men Type: BLOOD SPECIMENOrdering Facility: [facility] Address: [address] [place] [address] Performed By: #### D ESTRELLITA, 00598-4, 99771-0 ####[facility]ATORYCLIA [id number] [place] [address] [place] Urea nitrogen [Mass/Vol] 33 mg/dL High 9-24 [facility] Comment on above: Order Comment: Speci men Type: BLOOD SPECIMENOrdering Facility: [facility] Address: [address] [place] [address] Performed By: #### D ESTRELLITA, 75003-2, 07077-8 ####[facility]ATORYCLIA [id number] [place] [address] [place] Retics #on 12-16-2024 Reticulocytes (Bld) [#/Vol] 0.35461 10*3/uL High 0.018-0.100 [facility] Comment on above: Order Comment: Speci men Type: BLOOD SPECIMENOrdering Facility: [facility] Address: [address] [place] [address] Performed By: #### 5 7021-8, 18130-3 ####[facility]ATORYCLIA [id number] [address] [place] Reticulocytes (Bld) [#/Vol]o n 12-16-2024 Reticulocytes/100 RBC (Bld) 5.4 % High 0.4-2.0 [facility] Comment on above: Order Comment: Speci men Type: BLOOD SPECIMENOrdering Facility: [facility] Address: [address] [place] [address] Performed By: #### 5 7021-8, 98458-0 ####[facility]ATORYCLIA [id number] [address] [place] THERAPY NTon 12-16-2024 THERAPY NT Normal [facility] Bacteria Spec Resp Culton Bacteria identified Respiratory culture Nom (Unsp spec) CULTURE, RESPIRATORY: Few Normal respiratory meghna present ORGANISM ID: 1 Rare Pseudomonas fluorescens group Insignificant colony count. No further workup. GRAM STAIN: Few Mixed oral meghna No Polymorphonuclear Leukocytes Rare Epithelial cells Abnormal [facility] Comment on above: Performed By: #### 3 2355-0 ####[facility]ATORYCLIA [id number] [address] [place] CBC W Auto Differential pane l (Bld)on 12-15-2024 Anisocytosis Ql (Bld) Present Normal [facility] Comment on above: Order Comment: Speci men Type: BLOOD SPECIMENOrdering Facility: [facility] Address: [address] [place] [address] Performed By: #### 5 7021-8 ####[facility]ATORYCLIA [id number] [address] [place] Basophils (Bld) [#/Vol] 0.00 10*3/uL Normal <0.11 [facility] Comment on above: Order Comment: Speci men Type: BLOOD SPECIMENOrdering Facility: [facility] Address: [address] [place] [address] Performed By: #### 5 7021-8 ####[facility]ATORYCLIA [id number] [address] Basophils/100 WBC (Bld) 0.0 % Normal [facility] Comment on above: Order Comment: Speci men Type: BLOOD SPECIMENOrdering Facility: [facility] Address: [address] [place] [address] Performed By: #### 5 7021-8 ####[facility]ATORYCLIA [id number] [address] Differential cell count method Nom (Bld) Manual Normal [facility] Comment on above: Order Comment: Speci men Type: BLOOD SPECIMENOrdering Facility: [facility] Address: [address] [place] [address] Performed By: #### 5 7021-8 ####[facility]ATORYCLIA [id number] [address] [place] Eosinophils (Bld) [#/Vol] 0.00 10*3/uL Normal <0.46 [facility] Comment on above: Order Comment: Speci men Type: BLOOD SPECIMENOrdering Facility: [facility] Address: [address] [place] [address] Performed By: #### 5 7021-8 ####[facility]ORYCLIA [id number] [address] [place] Eosinophils/100 WBC (Bld) 0.0 % Normal [facility] Comment on above: Order Comment: Speci men Type: BLOOD SPECIMENOrdering Facility: [facility] Address: [address] [place] [address] Performed By: #### 5 7021-8 ####[facility]ATORYCLIA [id number] [address] Erythrocyte distribution width (RBC) [Ratio] 23.2 % High 11.5-15.0 [facility] Comment on above: Order Comment: Speci men Type: BLOOD SPECIMENOrdering Facility: [facility] Address: [address] [place] [address] Performed By: #### 5 7021-8 ####[facility]ATORYCLIA [id number] [address] STATES [facility] Hematocrit (Bld) [Volume fraction] 23.1 % Low 39.0-51.0 [facility] Comment on above: Order Comment: Speci men Type: BLOOD SPECIMENOrdering Facility: [facility] Address: [address] [place] [address] Performed By: #### 5 7021-8 ####[facility]ATORYCLIA [id number] [address] [place] Hemoglobin (Bld) [Mass/Vol] 7.6 g/dL Low 13.0-17.0 [facility] Comment on above: Order Comment: Speci men Type: BLOOD SPECIMENOrdering Facility: [facility] Address: [address] [place] [address] Performed By: #### 5 7021-8 ####[facility]ATORYCLIA [id number] [address] [place] Lymphocytes (Bld) [#/Vol] 1.14 10*3/uL Normal 1.00-4.00 [facility] Comment on above: Order Comment: Speci men Type: BLOOD SPECIMENOrdering Facility: [facility] Address: [address] [place] [address] Performed By: #### 5 7021-8 ####[facility]ATORYCLIA [id number] [address] Lymphocytes/100 WBC (Bld) 6.0 % Normal [facility] Comment on above: Order Comment: Speci men Type: BLOOD SPECIMENOrdering Facility: [facility] Address: [address] [place] [address] Performed By: #### 5 7021-8 ####[facility]ATORYCLIA [id number] [address] STATES OF [facility] MCH (RBC) [Entitic mass] 31.3 pg Normal 26.0-34.0 [facility] Comment on above: Order Comment: Speci men Type: BLOOD SPECIMENOrdering Facility: [facility] Address: [address] [place] [address] Performed By: #### 5 7021-8 ####[facility]ATORYCLIA [id number] [address] [place] OF [facility] MCHC (RBC) [Mass/Vol] 32.9 g/dL Normal 30.5-36.0 [facility] Comment on above: Order Comment: Speci men Type: BLOOD SPECIMENOrdering Facility: [facility] Address: [address] [place] [address] Performed By: #### 5 7021-8 ####[facility]ATORYCLIA [id number] [address] [place] MCV (RBC) [Entitic vol] 95.1 fL Normal 80.0-100.0 [facility] Comment on above: Order Comment: Speci men Type: BLOOD SPECIMENOrdering Facility: [facility] Address: [address] [place] [address] Performed By: #### 5 7021-8 ####[facility]ATORYCLIA [id number] [address] Metamyelocytes/100 WBC (Bld) 2.0 % Normal [facility] Comment on above: Order Comment: Speci men Type: BLOOD SPECIMENOrdering Facility: [facility] Address: [address] [place] [address] Performed By: #### 5 7021-8 ####[facility]ATORYCLIA [id number] [place] [address] [place] Monocytes (Bld) [#/Vol] 1.71 10*3/uL High <0.87 [facility] Comment on above: Order Comment: Speci men Type: BLOOD SPECIMENOrdering Facility: [facility] Address: [address] [place] [address] Performed By: #### 5 7021-8 ####[facility]ORYCLIA [id number] [address] [place] Monocytes/100 WBC (Bld) 9.0 % Normal [facility] Comment on above: Order Comment: Speci men Type: BLOOD SPECIMENOrdering Facility: [facility] Address: [address] [place] [address] Performed By: #### 5 7021-8 ####[facility]ORYCLIA [id number] [address] [place] MYELO% 2.0 % Normal [facility] Comment on above: Order Comment: Speci men Type: BLOOD SPECIMENOrdering Facility: [facility] Address: [address] [place] [address] Performed By: #### 5 7021-8 ####[facility]ORYCLIA [id number] [place] [address] [place] Neutrophils (Bld) [#/Vol] 15.41 10*3/uL High 1.45-7.50 [facility] Comment on above: Order Comment: Speci men Type: BLOOD SPECIMENOrdering Facility: [facility] Address: [address] [place] [address] Performed By: #### 5 7021-8 ####[facility]ORYCLIA [id number] [address] [place] Neutrophils/100 WBC (Bld) 81.0 % Normal [facility] Comment on above: Order Comment: Speci men Type: BLOOD SPECIMENOrdering Facility: [facility] Address: [address] [place] [address] Performed By: #### 5 7021-8 ####[facility]ATORYCLIA [id number] [place] [address] [place] Nucleated RBC (Bld) [#/Vol] 10*3/uL Normal <0.01 [facility] Comment on above: Order Comment: Speci men Type: BLOOD SPECIMENOrdering Facility: [facility] Address: [address] [place] [address] Performed By: #### 5 7021-8 ####[facility]ATORYCLIA [id number] [place] [address] [place] Nucleated RBC/100 WBC (Bld) [Ratio] 0.0 /100 WBC Normal [facility] Comment on above: Order Comment: Speci men Type: BLOOD SPECIMENOrdering Facility: [facility] Address: [address] [place] [address] Performed By: #### 5 7021-8 ####[facility]ATORYCLIA [id number] [place] [address] [place] Platelet mean volume (Bld) [Entitic vol] 9.1 fL Normal 9.0-12.7 [facility] Comment on above: Order Comment: Speci men Type: BLOOD SPECIMENOrdering Facility: [facility] Address: [address] [place] [address] Performed By: #### 5 7021-8 ####[facility]ATORYCLIA [id number] [place] [address] [place] Platelets (Bld) [#/Vol] 430 10*3/uL High 150-400 [facility] Comment on above: Order Comment: Speci men Type: BLOOD SPECIMENOrdering Facility: [facility] Address: [address] [place] [address] Performed By: #### 5 7021-8 ####[facility]ATORYCLIA [id number] [address] Platelets Estimate (Bld) [#/Vol] Adequate Normal [facility] Comment on above: Order Comment: Speci men Type: BLOOD SPECIMENOrdering Facility: [facility] Address: [address] [place] [address] Performed By: #### 5 7021-8 ####[facility]ATORYCLIA [id number] [address] Polychromasia LM Ql (Bld) Slight Normal [facility] Comment on above: Order Comment: Speci men Type: BLOOD SPECIMENOrdering Facility: [facility] Address: [address] [place] [address] Performed By: #### 5 7021-8 ####[facility]ATORYCLIA [id number] [address] RBC (Bld) [#/Vol] 2.43 10*6/uL Low 4.20-6.00 [facility] Comment on above: Order Comment: Speci men Type: BLOOD SPECIMENOrdering Facility: [facility] Address: [address] [place] [address] Performed By: #### 5 7021-8 ####[facility]ATORYCLIA [id number] [address] RED CELL MORPH Reviewed: see result s of individual morphologies Normal [facility] Comment on above: Order Comment: Speci men Type: BLOOD SPECIMENOrdering Facility: [facility] Address: [address] [place] [address] Performed By: #### 5 7021-8 ####[facility]ATORYCLIA [id number] [address] WBC (Bld) [#/Vol] 19.03 10*3/uL High 3.70-11.00 [facility] Comment on above: Order Comment: Speci men Type: BLOOD SPECIMENOrdering Facility: [facility] Address: [address] [place] [address] Performed By: #### 5 7021-8 ####[facility]ATORYCLIA [id number] [place] [address] [place] CT ABD/PEL W IVCONon 025 CT ABD/PEL W IVCON Normal [facility] CT CHEST W IVCONon 5 CT CHEST W IVCON Normal [facility] Magnesium SerPl-mCncon 12-15 Magnesium [Mass/Vol] 2.0 mg/dL Normal 1.7-2.3 [facility] Comment on above: Order Comment: Speci men Type: BLOOD SPECIMENOrdering Facility: [facility] Address: [address] [place] [address] Performed By: #### 2 4362-6, ####[facility]ATORYCLIA [id number] [address] [place] Renal function 2000 panelon 12-15-2024 Albumin [Mass/Vol] 3.2 g/dL Low 3.9-4.9 [facility] Comment on above: Order Comment: Speci men Type: BLOOD SPECIMENOrdering Facility: [facility] Address: [address] [place] [address] Performed By: #### 2 4362-6, ####[facility]ATORYCLIA [id number] [place] [address] [place] Anion gap [Moles/Vol] 12 mmol/L Normal 8-15 [facility] Comment on above: Order Comment: Speci men Type: BLOOD SPECIMENOrdering Facility: [facility] Address: [address] [place] [address] Performed By: #### 2 4362-6, ####[facility]ATORYCLIA [id number] [address] [place] Calcium [Mass/Vol] 9.2 mg/dL Normal 8.5-10.2 [facility] Comment on above: Order Comment: Speci men Type: BLOOD SPECIMENOrdering Facility: [facility] Address: [address] [place] [address] Performed By: #### 2 4362-6, ####[facility]ATORYCLIA [id number] [place] [address] [place] Chloride [Moles/Vol] 94 mmol/L Low 98-107 [facility] Comment on above: Order Comment: Speci men Type: BLOOD SPECIMENOrdering Facility: [facility] Address: [address] [place] [address] Performed By: #### 2 4362-6, ####[facility]ATORYCLIA [id number] [place] [id number] [place] CO2 [Moles/Vol] 25 mmol/L Normal 22-30 [facility] Comment on above: Order Comment: Speci men Type: BLOOD SPECIMENOrdering Facility: [facility] Address: [address] [place] [address] Performed By: #### 2 4362-6, ####[facility]ORATORYCLIA [id number] [address] OF [facility] Creatinine [Mass/Vol] 1.32 mg/dL High 0.73-1.22 [facility] Comment on above: Order Comment: Speci men Type: BLOOD SPECIMENOrdering Facility: [facility] Address: [address] [place] [address] Performed By: #### 2 4362-6, ####[facility]ATORYCLIA [id number] [address] Creatinine and Glomerular filtration rate.predicted panel (S/P/Bld) 58 mL/min/1.73m??? Low >=60 [facility] Comment on above: Order Comment: Speci men Type: BLOOD SPECIMENOrdering Facility: [facility] Address: [address] [place] [address] Result Comment: Marcela mated Glomerular Filtration Rate (eGFR) is calculated using the 2020 CKD-EPI creatinine equation. This equation utilizes serum creatinine, sex, and age as parameters. The creatinine assay has traceable calibration to isotope dilution-mass spectrometry. Refer to KDIGO guidelines for clinical interpretation. In patients with unstable renal function, e.g. those with acute kidney injury, the eGFR may not accurately reflect actual GFR. Performed By: #### 2 4362-6, ####[facility]ITALCLIA [id number] [place] [address] [place] Glucose [Mass/Vol] 96 mg/dL Normal 74-99 [facility] Comment on above: Order Comment: Franchesca estrada Type: BLOOD SPECIMENOrdering Facility: [facility] Address: [address] [place] [address] Result Comment: The [place] Diabetes Association (ADA) provides guidance for cutoff values for fasting glucose and random glucose. The ADA defines fasting as no caloric intake for at least 8 hours. Fasting plasma glucose results between 100 to 125 mg/dL indicate increased risk for diabetes (prediabetes).Fasting plasma glucose results greater than or equal to 126 mg/dL meet the criteria for diagnosis of diabetes. In the absence of unequivocal hyperglycemia, results should be confirmed by repeat testing. In a patient with classic symptoms of hyperglycemia or hyperglycemic crisis, random plasma glucose results greater than or equal to 200 mg/dL meet the criteria for diagnosis of diabetes.Reference: Standards of Medical Care in Diabetes 2016, [place] [employer]. Diabetes Care. 2016.39(Suppl 1). Performed By: #### 2 4362-6, ####[facility] BENDIA [id number] [place] [address] [place] Phosphate [Mass/Vol] 3.8 mg/dL Normal 2.7-4.8 [facility] Comment on above: Order Comment: Franchesca estrada Type: BLOOD SPECIMENOrdering Facility: [facility] Address: [address] [place] [address] Performed By: #### 2 4362-6, ####[facility] LABORATORYIA [id number] [place] [address] [place] Potassium [Moles/Vol] 4.2 mmol/L Normal 3.7-5.1 [facility] Comment on above: Order Comment: Franchesca estrada Type: BLOOD SPECIMENOrdering Facility: [facility] Address: [address] [place] [address] Performed By: #### 2 4362-6, 73473-3 ####[facility]ATORYCLIA [id number] [place] [address] [place] [facility] Sodium [Moles/Vol] 131 mmol/L Low 136-144 [facility] Comment on above: Order Comment: Speci men Type: BLOOD SPECIMENOrdering Facility: [facility] Address: [address] [place] [address] Performed By: #### 2 4362-6, 01915-2 ####[facility]ATORYCLIA [id number] [place], [place] [address] [place] [address] [place] Urea nitrogen [Mass/Vol] 26 mg/dL High 9-24 [facility] Comment on above: Order Comment: Speci men Type: BLOOD SPECIMENOrdering Facility: [facility] Address: [address] [place] [address] Performed By: #### 2 4362-6, 38268-4 ####[facility]ATORYCLIA [id number] [address] OF [facility] CASE MANAGEMon 12-14-2024 CASE MANAGEM Normal [facility] CBC Pnl Bld Autoon Nucleated RBC (Bld) [#/Vol] 10*3/uL Normal <0.01 [facility] Comment on above: Order Comment: Speci men Type: BLOOD SPECIMENOrdering Facility: [facility] Address: [address] [place] [address] Performed By: #### 5 8410-2, 98531-2 ####[facility]ATORYCLIA [id number] [address] [place] CBC W Auto Differential pane l (Bld)on 12-14-2024 Anisocytosis Ql (Bld) Present Normal [facility] Comment on above: Order Comment: Speci men Type: BLOOD SPECIMENOrdering Facility: [facility] Address: [address] [place] [address] Performed By: #### 5 8410-2, 56882-6 ####[facility]ATORYCLIA [id number] [place] [address] [place] Basophils (Bld) [#/Vol] 0.00 10*3/uL Normal <0.11 [facility] Comment on above: Order Comment: Speci men Type: BLOOD SPECIMENOrdering Facility: [facility] Address: [address] [place] [address] Performed By: #### 5 8410-2, 92402-7 ####[facility]ATORYCLIA [id number] [address] [place] Basophils/100 WBC (Bld) 0.0 % Normal [facility] Comment on above: Order Comment: Speci men Type: BLOOD SPECIMENOrdering Facility: [facility] Address: [address] [place] [address] Performed By: #### 5 8410-2, 46844-6 ####[facility]ATORYCLIA [id number] [address] Differential cell count method Nom (Bld) Manual Normal [facility] Comment on above: Order Comment: Speci men Type: BLOOD SPECIMENOrdering Facility: [facility] Address: [address] [place] [address] Performed By: #### 5 8410-2, 68417-7 ####[facility]ORATORYCLIA [id number] [place] [address] [place] Eosinophils (Bld) [#/Vol] 0.00 10*3/uL Normal <0.46 [facility] Comment on above: Order Comment: Speci men Type: BLOOD SPECIMENOrdering Facility: [facility] Address: [address] [place] [address] Performed By: #### 5 8410-2, 50938-5 ####[facility]ORATORYCLIA [id number] [address] Eosinophils/100 WBC (Bld) 0.0 % Normal [facility] Comment on above: Order Comment: Speci men Type: BLOOD SPECIMENOrdering Facility: [facility] Address: [address] [place] [address] Performed By: #### 5 8410-2, 28218-4 ####[facility]ORATORYCLIA [id number] [place] [id number] [place] Lymphocytes (Bld) [#/Vol] 1.03 10*3/uL Normal 1.00-4.00 [facility] Comment on above: Order Comment: Speci men Type: BLOOD SPECIMENOrdering Facility: [facility] Address: [address] [place] [address] Performed By: #### 5 8410-2, 76159-6 ####[facility] LABORATORYCLIA [id number] [address] [place] Lymphocytes/100 WBC (Bld) 6.0 % Normal [facility] Comment on above: Order Comment: Speci men Type: BLOOD SPECIMENOrdering Facility: [facility] Address: [address] [place] [address] Performed By: #### 5 8410-2, 31244-7 ####[facility]ORATORYCLIA [id number] [address] [place] Metamyelocytes/100 WBC (Bld) 4.0 % Normal [facility] Comment on above: Order Comment: Speci men Type: BLOOD SPECIMENOrdering Facility: [facility] Address: [address] [place] [address] Performed By: #### 5 8410-2, 42706-7 ####[facility]ORATORYCLIA [id number] [place] [address] [place] Monocytes (Bld) [#/Vol] 2.40 10*3/uL High <0.87 [facility] Comment on above: Order Comment: Speci men Type: BLOOD SPECIMENOrdering Facility: [facility] Address: [address] [place] [address] Performed By: #### 5 8410-2, 45714-0 ####[facility]ORATORYCLIA [id number] [place] [address] [place] Monocytes/100 WBC (Bld) 14.0 % Normal [facility] Comment on above: Order Comment: Speci men Type: BLOOD SPECIMENOrdering Facility: [facility] Address: [address] [place] [address] Performed By: #### 5 8410-2, 72305-8 ####[facility]ORATORYCLIA [id number] [place] [address] [place] Neutrophils (Bld) [#/Vol] 13.00 10*3/uL High 1.45-7.50 [facility] Comment on above: Order Comment: Speci men Type: BLOOD SPECIMENOrdering Facility: [facility] Address: [address] [place] [address] Performed By: #### 5 8410-2, 88899-2 ####[facility] LABORATORYCLIA [id number] [address] [place] Neutrophils/100 WBC (Bld) 76.0 % Normal [facility] Comment on above: Order Comment: Speci men Type: BLOOD SPECIMENOrdering Facility: [facility] Address: [address] [place] [address] Performed By: #### 5 8410-2, 45327-2 ####[facility] LABORATORYCLIA [id number] [place] [address] [place] Nucleated RBC/100 WBC (Bld) [Ratio] 0.0 /100 WBC Normal [facility] Comment on above: Order Comment: Speci men Type: BLOOD SPECIMENOrdering Facility: [facility] Address: [address] [place] [address] Performed By: #### 5 8410-2, 22091-3 ####[facility]ATORYCLIA [id number] [place] [address] [place] Platelets Estimate (Bld) [#/Vol] Adequate Normal [facility] Comment on above: Order Comment: Speci men Type: BLOOD SPECIMENOrdering Facility: [facility] Address: [address] [place] [address] Performed By: #### 5 8410-2, 42124-0 ####[facility]ORATORYCLIA [id number] [address] [place] Polychromasia LM Ql (Bld) Slight Normal [facility] Comment on above: Order Comment: Speci men Type: BLOOD SPECIMENOrdering Facility: [facility] Address: [address] [place] [address] Performed By: #### 5 8410-2, 20286-9 ####[facility] LABORATORYCLIA [id number] [address] [place] RED CELL MORPH Reviewed: see result s of individual morphologies Normal [facility] Comment on above: Order Comment: Speci men Type: BLOOD SPECIMENOrdering Facility: [facility] Address: [address] [place] [address] Performed By: #### 5 8410-2, 03273-6 ####[facility] LABORATORYCLIA [id number] [address] [place] CBC panel Auto (Bld)on 12-14 Erythrocyte distribution width (RBC) [Ratio] 22.9 % High 11.5-15.0 [facility] Comment on above: Order Comment: Speci men Type: BLOOD SPECIMENOrdering Facility: [facility] Address: [address] [place] [address] Performed By: #### 5 8410-2, 08578-5 ####[facility] LABORATORYCLIA [id number] [address] [place] Hematocrit (Bld) [Volume fraction] 24.5 % Low 39.0-51.0 [facility] Comment on above: Order Comment: Speci men Type: BLOOD SPECIMENOrdering Facility: [facility] Address: [address] [place] [address] Performed By: #### 5 8410-2, 30054-8 ####[facility] LABORATORYCLIA [id number] [address] [place] Hemoglobin (Bld) [Mass/Vol] 8.2 g/dL Low 13.0-17.0 [facility] Comment on above: Order Comment: Speci men Type: BLOOD SPECIMENOrdering Facility: [facility] Address: [address] [place] [address] Performed By: #### 5 8410-2, 60214-0 ####[facility] LABORATORYCLIA [id number] [address] MCH (RBC) [Entitic mass] 31.4 pg Normal 26.0-34.0 [facility] Comment on above: Order Comment: Speci men Type: BLOOD SPECIMENOrdering Facility: [facility] Address: [address] [place] [address] Performed By: #### 5 8410-2, 91595-4 ####[facility] LABORATORYCLIA [id number] [address] MCHC (RBC) [Mass/Vol] 33.5 g/dL Normal 30.5-36.0 [facility] Comment on above: Order Comment: Speci men Type: BLOOD SPECIMENOrdering Facility: [facility] Address: [address] [place] [address] Performed By: #### 5 8410-2, 86267-2 ####[facility] LABORATORYCLIA [id number] [address] MCV (RBC) [Entitic vol] 93.9 fL Normal 80.0-100.0 [facility] Comment on above: Order Comment: Speci men Type: BLOOD SPECIMENOrdering Facility: [facility] Address: [address] [place] [address] Performed By: #### 5 8410-2, 06247-2 ####[facility]ORATORYCLIA [id number] [address] Platelet mean volume (Bld) [Entitic vol] 9.4 fL Normal 9.0-12.7 [facility] Comment on above: Order Comment: Speci men Type: BLOOD SPECIMENOrdering Facility: [facility] Address: [address] [place] [address] Performed By: #### 5 8410-2, 18356-8 ####[facility] LABORATORYCLIA [id number] [place] [address] [place] Platelets (Bld) [#/Vol] 441 10*3/uL High 150-400 [facility] Comment on above: Order Comment: Speci men Type: BLOOD SPECIMENOrdering Facility: [facility] Address: [address] [place] [address] Performed By: #### 5 8410-2, 18235-9 ####[facility]ORATORYCLIA [id number] [place] [address] [place] RBC (Bld) [#/Vol] 2.61 10*6/uL Low 4.20-6.00 [facility] Comment on above: Order Comment: Speci men Type: BLOOD SPECIMENOrdering Facility: [facility] Address: [address] [place] [address] Performed By: #### 5 8410-2, 37989-3 ####[facility]ORATORYCLIA [id number] [address] STATES OF [facility] WBC (Bld) [#/Vol] 17.11 10*3/uL High 3.70-11.00 [facility] Comment on above: Order Comment: Speci men Type: BLOOD SPECIMENOrdering Facility: [facility] Address: [address] [place] [address] Performed By: #### 5 8410-2, 61304-6 ####[facility] LABORATORYCLIA [id number] [place] [id number] [facility] [place] Renal function 2000 panelon 12-14-2024 Albumin [Mass/Vol] 3.1 g/dL Low 3.9-4.9 [facility] Comment on above: Order Comment: Speci men Type: BLOOD SPECIMENOrdering Facility: [facility] Address: [address] [place] [address] Performed By: #### 2 4362-6 ####[facility] LABORATORYCLIA [id number] [place] [phone] [facility] Anion gap [Moles/Vol] 11 mmol/L Normal 8-15 [facility] Comment on above: Order Comment: Speci men Type: BLOOD SPECIMENOrdering Facility: [facility] Address: [address] [place] [address] Performed By: #### 2 4362-6 ####[facility]ATORYCLIA [id number] [place] [address] [place] Calcium [Mass/Vol] 9.2 mg/dL Normal 8.5-10.2 [facility] Comment on above: Order Comment: Speci men Type: BLOOD SPECIMENOrdering Facility: [facility] Address: [address] [place] [address] Performed By: #### 2 4362-6 ####[facility] LABORATORYCLIA [id number] [place] [address] [place] Chloride [Moles/Vol] 93 mmol/L Low 98-107 [facility] Comment on above: Order Comment: Speci men Type: BLOOD SPECIMENOrdering Facility: [facility] Address: [address] [place] [address] Performed By: #### 2 4362-6 ####[facility]ATORYCLIA [id number] [place] [address] [place] CO2 [Moles/Vol] 27 mmol/L Normal 22-30 [facility] Comment on above: Order Comment: Speci men Type: BLOOD SPECIMENOrdering Facility: [facility] Address: [address] [place] [address] Performed By: #### 2 4362-6 ####[facility]ORATORYCLIA [id number] [place] [address] [place] Creatinine [Mass/Vol] 1.36 mg/dL High 0.73-1.22 [facility] Comment on above: Order Comment: Speci men Type: BLOOD SPECIMENOrdering Facility: [facility] Address: [address] [place] [address] Performed By: #### 2 4362-6 ####[facility]ORATORYCLIA [id number] [place] [address] [place] Creatinine and Glomerular filtration rate.predicted panel (S/P/Bld) 56 mL/min/1.73m??? Low >=60 [facility] Comment on above: Order Comment: Franchesca estrada Type: BLOOD SPECIMENOrdering Facility: [facility] Address: [address] [place] [address] Result Comment: Marcela mated Glomerular Filtration Rate (eGFR) is calculated using the 2020 CKD-EPI creatinine equation. This equation utilizes serum creatinine, sex, and age as parameters. The creatinine assay has traceable calibration to isotope dilution-mass spectrometry. Refer to KDIGO guidelines for clinical interpretation. In patients with unstable renal function, e.g. those with acute kidney injury, the eGFR may not accurately reflect actual GFR. Performed By: #### 2 4362-6 ####[facility] LABORATORYCLIA [id number] [place] [address] [place] Glucose [Mass/Vol] 97 mg/dL Normal 74-99 [facility] Comment on above: Order Comment: Franchesca estrada Type: BLOOD SPECIMENOrdering Facility: [facility] Address: [address] [place] [address] Result Comment: The [place] Diabetes Association (ADA) provides guidance for cutoff values for fasting glucose and random glucose. The ADA defines fasting as no caloric intake for at least 8 hours. Fasting plasma glucose results between 100 to 125 mg/dL indicate increased risk for diabetes (prediabetes).Fasting plasma glucose results greater than or equal to 126 mg/dL meet the criteria for diagnosis of diabetes. In the absence of unequivocal hyperglycemia, results should be confirmed by repeat testing. In a patient with classic symptoms of hyperglycemia or hyperglycemic crisis, random plasma glucose results greater than or equal to 200 mg/dL meet the criteria for diagnosis of diabetes.Reference: Standards of Medical Care in Diabetes 2016, [place] [employer]. Diabetes Care. 2016.39(Suppl 1). Performed By: #### 2 4362-6 ####[facility]ORATORYCLIA [id number] [place] [id number] [place] Phosphate [Mass/Vol] 3.9 mg/dL Normal 2.7-4.8 [facility] Comment on above: Order Comment: Speci men Type: BLOOD SPECIMENOrdering Facility: [facility] Address: [address] [place] [address] Performed By: #### 2 4362-6 ####[facility]ORATORYCLIA [id number] [address] [place] Potassium [Moles/Vol] 4.7 mmol/L Normal 3.7-5.1 [facility] Comment on above: Order Comment: Speci men Type: BLOOD SPECIMENOrdering Facility: [facility] Address: [address] [place] [address] Performed By: #### 2 4362-6 ####[facility] LABORATORYCLIA [id number] [address] [place] Sodium [Moles/Vol] 131 mmol/L Low 136-144 [facility] Comment on above: Order Comment: Speci men Type: BLOOD SPECIMENOrdering Facility: [facility] Address: [address] [place] [address] Performed By: #### 2 4362-6 ####[facility]ORATORYCLIA [id number] [address] [place] Urea nitrogen [Mass/Vol] 27 mg/dL High 9-24 [facility] Comment on above: Order Comment: Speci men Type: BLOOD SPECIMENOrdering Facility: [facility] Address: [address] [place] [address] Performed By: #### 2 4362-6 ####[facility]ORATORYCLIA [id number] [address] [place] Bacteria Bld Culton 12-14-19 25 Bacteria identified Cx Nom (Bld) CULTURE, BLOOD: No growth 5 days Normal [facility] Comment on above: Performed By: #### 6 00-7 ####[facility]ORATORYCLIA [id number] [address] [place] Bacteria identified Cx Nom (Bld) CULTURE, BLOOD: No growth 5 days Normal [facility] Comment on above: Performed By: #### 6 00-7 ####[facility]ORATORYCLIA [id number] [address] CBC panel Auto (Bld)on 12-13 Erythrocyte distribution width (RBC) [Ratio] 20.3 % High 11.5-15.0 [facility] Comment on above: Order Comment: Speci men Type: BLOOD SPECIMENOrdering Facility: [facility] Address: [address] [place] [address] Performed By: #### 5 8410-2 ####[facility]ORATORYCLIA [id number] [address] Hematocrit (Bld) [Volume fraction] 22.5 % Low 39.0-51.0 [facility] Comment on above: Order Comment: Speci men Type: BLOOD SPECIMENOrdering Facility: [facility] Address: [address] [place] [address] Performed By: #### 5 8410-2 ####[facility]ORATORYCLIA [id number] [address] Hemoglobin (Bld) [Mass/Vol] 7.5 g/dL Low 13.0-17.0 [facility] Comment on above: Order Comment: Speci men Type: BLOOD SPECIMENOrdering Facility: [facility] Address: [address] [place] [address] Performed By: #### 5 8410-2 ####[facility] LABORATORYCLIA [id number] [address] MCH (RBC) [Entitic mass] 31.9 pg Normal 26.0-34.0 [facility] Comment on above: Order Comment: Speci men Type: BLOOD SPECIMENOrdering Facility: [facility] Address: [address] [place] [address] Performed By: #### 5 8410-2 ####[facility]ORATORYCLIA [id number] [address] [place] MCHC (RBC) [Mass/Vol] 33.3 g/dL Normal 30.5-36.0 [facility] Comment on above: Order Comment: Speci men Type: BLOOD SPECIMENOrdering Facility: [facility] Address: [address] [place] [address] Performed By: #### 5 8410-2 ####[facility] LABORATORYCLIA [id number] [address] MCV (RBC) [Entitic vol] 95.7 fL Normal 80.0-100.0 [facility] Comment on above: Order Comment: Speci men Type: BLOOD SPECIMENOrdering Facility: [facility] Address: [address] [place] [address] Performed By: #### 5 8410-2 ####[facility] LABORATORYCLIA [id number] [address] OF [facility] Nucleated RBC (Bld) [#/Vol] 10*3/uL Normal <0.01 [facility] Comment on above: Order Comment: Speci men Type: BLOOD SPECIMENOrdering Facility: [facility] Address: [address] [place] [address] Performed By: #### 5 8410-2 ####[facility]ORATORYCLIA [id number] [address] Platelet mean volume (Bld) [Entitic vol] 9.5 fL Normal 9.0-12.7 [facility] Comment on above: Order Comment: Speci men Type: BLOOD SPECIMENOrdering Facility: [facility] Address: [address] [place] [address] Performed By: #### 5 8410-2 ####[facility]ORATORYCLIA [id number] [address] Platelets (Bld) [#/Vol] 322 10*3/uL Normal 150-400 [facility] Comment on above: Order Comment: Speci men Type: BLOOD SPECIMENOrdering Facility: [facility] Address: [address] [place] [address] Performed By: #### 5 8410-2 ####[facility] LABORATORYCLIA [id number] [place] [address] [place] RBC (Bld) [#/Vol] 2.35 10*6/uL Low 4.20-6.00 [facility] Comment on above: Order Comment: Speci men Type: BLOOD SPECIMENOrdering Facility: [facility] Address: [address] [place] [address] Performed By: #### 5 8410-2 ####[facility]ORATORYCLIA [id number] [place] [address] [place] WBC (Bld) [#/Vol] 15.36 10*3/uL High 3.70-11.00 [facility] Comment on above: Order Comment: Speci men Type: BLOOD SPECIMENOrdering Facility: [facility] Address: [address] [place] [address] Performed By: #### 5 8410-2 ####[facility]ORATORYCLIA [id number] [address] CRP SerPl-mCncon 12-13-2024 CRP [Mass/Vol] 24.1 mg/dL High <0.9 [facility] Comment on above: Order Comment: Speci men Type: BLOOD SPECIMENOrdering Facility: [facility] Address: [address] [place] [address] Performed By: #### 1 9123-9, 40410-4, 1988-5, 19141-7 ####[facility]ORATORYCLIA [id number] [address] [place] Gas and Carbon monoxide pane l (BldV)on 12-13-2024 Base excess Calc (BldV) [Moles/Vol] 1 mmol/L Normal 0-2 [facility] Comment on above: Order Comment: Speci men Type: VENOUS BLOOD SPECIMENOrdering Facility: [facility] Address: [address] [place] [address] Performed By: #### 2 4344-4 ####[facility]ORATORYCLIA [id number] [address] [place] Body temperature 98.6 [degF] Normal [facility] Comment on above: Order Comment: Speci men Type: VENOUS BLOOD SPECIMENOrdering Facility: [facility] Address: [address] [place] [address] Performed By: #### 2 4344-4 ####[facility]ORATORYCLIA [id number] [address] Calcium.ionized (BldV) [Mass/Vol] 1.10 mmol/L Normal 1.08-1.30 [facility] Comment on above: Order Comment: Speci men Type: VENOUS BLOOD SPECIMENOrdering Facility: [facility] Address: [address] [place] [address] Performed By: #### 2 4344-4 ####[facility]ORATORYCLIA [id number] [address] Calcium.ionized adjusted to pH 7.4 (BldA) [Moles/Vol] 1.06 mmol/L Low 1.08-1.30 [facility] Comment on above: Order Comment: Speci men Type: VENOUS BLOOD SPECIMENOrdering Facility: [facility] Address: [address] [place] [address] Performed By: #### 2 4344-4 ####[facility]ORATORYCLIA [id number] [address] [place] Carboxyhemoglobin (BldV) [Mass fraction] 4.3 % High 0.0-2.0 [facility] Comment on above: Order Comment: Speci men Type: VENOUS BLOOD SPECIMENOrdering Facility: [facility] Address: [address] [place] [address] Result Comment: Carb oxyhemoglobin Reference Range for Smokers: 2.0-8.0% Performed By: #### 2 4344-4 ####[facility]ORATORYCLIA [id number] [address] OF [facility] Chloride [Moles/Vol] 98 mmol/L Normal 97-105 [facility] Comment on above: Order Comment: Speci men Type: VENOUS BLOOD SPECIMENOrdering Facility: [facility] Address: [address] [place] [address] Performed By: #### 2 4344-4 ####[facility]ATORYCLIA [id number] [place] [address] [place] CO2 (BldV) [Partial pressure] 50 mm[Hg] Normal 42-55 [facility] Comment on above: Order Comment: Speci men Type: VENOUS BLOOD SPECIMENOrdering Facility: [facility] Address: [address] [place] [address] Performed By: #### 2 4344-4 ####[facility]ATORYCLIA [id number] [address] [place] Glucose [Mass/Vol] 122 mg/dL High 60-105 [facility] Comment on above: Order Comment: Speci men Type: VENOUS BLOOD SPECIMENOrdering Facility: [facility] Address: [address] [place] [address] Performed By: #### 2 4344-4 ####[facility]ORATORYCLIA [id number] [address] [place] HCO3 (Bld) [Moles/Vol] 26 mmol/L Normal 24-28 [facility] Comment on above: Order Comment: Speci men Type: VENOUS BLOOD SPECIMENOrdering Facility: [facility] Address: [address] [place] [address] Performed By: #### 2 4344-4 ####[facility]ATORYCLIA [id number] [address] [place] Hematocrit (Bld) [Volume fraction] 27.1 % Low 39.0-51.0 [facility] Comment on above: Order Comment: Speci men Type: VENOUS BLOOD SPECIMENOrdering Facility: [facility] Address: [address] [place] [address] Performed By: #### 2 4344-4 ####[facility]ORATORYCLIA [id number] [address] [place] Hemoglobin (Bld) [Mass/Vol] 8.7 g/dL Low 13.0-17.0 [facility] Comment on above: Order Comment: Speci men Type: VENOUS BLOOD SPECIMENOrdering Facility: [facility] Address: [address] [place] [address] Performed By: #### 2 4344-4 ####[facility]ATORYCLIA [id number] [place] [address] [place] Lactate [Moles/Vol] 1.7 mmol/L Normal 0.5-2.2 [facility] Comment on above: Order Comment: Speci men Type: VENOUS BLOOD SPECIMENOrdering Facility: [facility] Address: [address] [place] [address] Performed By: #### 2 4344-4 ####[facility]ORATORYCLIA [id number] [address] [place] Methemoglobin (Bld) [Mass fraction] 0.9 % Normal 0.0-1.5 [facility] Comment on above: Order Comment: Speci men Type: VENOUS BLOOD SPECIMENOrdering Facility: [facility] Address: [address] [place] [address] Performed By: #### 2 4344-4 ####[facility] LABORATORYCLIA [id number] [address] [place] O2 THERAPY RA=Room Air Normal [facility] Comment on above: Order Comment: Speci men Type: VENOUS BLOOD SPECIMENOrdering Facility: [facility] Address: [address] [place] [address] Performed By: #### 2 4344-4 ####[facility] LABORATORYCLIA [id number] [place] [address] [place] Oxygen (BldV) [Partial pressure] 79 mm[Hg] High 35-45 [facility] Comment on above: Order Comment: Speci men Type: VENOUS BLOOD SPECIMENOrdering Facility: [facility] Address: [address] [place] [address] Performed By: #### 2 4344-4 ####[facility] LABORATORYCLIA [id number] [address] [place] Oxygen saturation in Venous blood 94 % High 60-85 [facility] Comment on above: Order Comment: Speci men Type: VENOUS BLOOD SPECIMENOrdering Facility: [facility] Address: [address] [place] [address] Performed By: #### 2 4344-4 ####[facility] LABORATORYCLIA [id number] [address] [place] Oxyhemoglobin (BldV) [Mass fraction] 89 % High 60-85 [facility] Comment on above: Order Comment: Speci men Type: VENOUS BLOOD SPECIMENOrdering Facility: [facility] Address: [address] [place] [address] Performed By: #### 2 4344-4 ####[facility] LABORATORYCLIA [id number] [address] [place] pH (BldV) 7.34 [pH] Normal 7.32-7.42 [facility] Comment on above: Order Comment: Speci men Type: VENOUS BLOOD SPECIMENOrdering Facility: [facility] Address: [address] [place] [address] Performed By: #### 2 4344-4 ####[facility] LABORATORYCLIA [id number] [place] [address] [place] Potassium [Moles/Vol] 4.0 mmol/L Normal 3.5-5.0 [facility] Comment on above: Order Comment: Speci men Type: VENOUS BLOOD SPECIMENOrdering Facility: [facility] Address: [address] [place] [address] Performed By: #### 2 4344-4 ####[facility] LABORATORYCLIA [id number] [place] [address] [place] Sodium [Moles/Vol] 132 mmol/L Low 136-144 [facility] Comment on above: Order Comment: Speci men Type: VENOUS BLOOD SPECIMENOrdering Facility: [facility] Address: [address] [place] [address] Performed By: #### 2 4344-4 ####[facility] LABORATORYCLIA [id number] [address] [place] Hgb Bld-mCncon 12-13-2024 Hemoglobin (Bld) [Mass/Vol] 7.1 g/dL Low 13.0-17.0 [facility] Comment on above: Order Comment: Speci men Type: BLOOD SPECIMENOrdering Facility: [facility] Address: [address] [place] [address] Performed By: #### 7 18-7 ####[facility] LABORATORYCLIA [id number] [address] [place] Magnesium SerPl-mCncon 12-13 Magnesium [Mass/Vol] 1.8 mg/dL Normal 1.7-2.3 [facility] Comment on above: Order Comment: Speci men Type: BLOOD SPECIMENOrdering Facility: [facility] Address: [address] [place] [address] Performed By: #### 1 9123-9, 32179-4, 1987-10, 44273-1 ####[facility]ITAL[facility] [id number] [address] [place] Procalcitonin SerPl-ncon 0 12-13-2024 Procalcitonin [Mass/Vol] 2.51 ng/mL High <0.09 [facility] Comment on above: Order Comment: Speci men Type: BLOOD SPECIMENOrdering Facility: [facility] Address: [address] [place] [address] Result Comment: For a guided interpretation of test results, please visit the Change in Procalcitonin Calculator, [email or web address]. Performed By: #### 1 9123-9, 88812-1, 1987-10, 45986-7 ####[facility] LABORATORYCLIA [id number] [place] [address] [place] Renal function 2000 panelon 12-13-2024 Albumin [Mass/Vol] 3.0 g/dL Low 3.9-4.9 [facility] Comment on above: Order Comment: Speci men Type: BLOOD SPECIMENOrdering Facility: [facility] Address: [address] [place] [address] Performed By: #### 1 9123-9, , 1987-10, ####[facility] LABORATORYCLIA [id number] [place] [address] [place] Anion gap [Moles/Vol] 11 mmol/L Normal 8-15 [facility] Comment on above: Order Comment: Speci men Type: BLOOD SPECIMENOrdering Facility: [facility] Address: [address] [place] [address] Performed By: #### 1 9123-9, , 1987-10, ####[facility] LABORATORYCLIA [id number] [place] [address] [place] Calcium [Mass/Vol] 8.5 mg/dL Normal 8.5-10.2 [facility] Comment on above: Order Comment: Speci men Type: BLOOD SPECIMENOrdering Facility: [facility] Address: [address] [place] [address] Performed By: #### 1 9123-9, , 1987-10, ####[facility] LABORATORYCLIA [id number] [place] [address] [place] Chloride [Moles/Vol] 94 mmol/L Low 98-107 [facility] Comment on above: Order Comment: Speci men Type: BLOOD SPECIMENOrdering Facility: [facility] Address: [address] [place] [address] Performed By: #### 1 9123-9, , 1987-10, ####[facility] LABORATORYCLIA [id number] [place] [address] [place] CO2 [Moles/Vol] 26 mmol/L Normal 22-30 [facility] Comment on above: Order Comment: Speci men Type: BLOOD SPECIMENOrdering Facility: [facility] Address: [address] [place] [address] Performed By: #### 1 9123-9, , 1987-10, ####[facility] LABORATORYCLIA [id number] [address] STATES OF [facility] Creatinine [Mass/Vol] 1.43 mg/dL High 0.73-1.22 [facility] Comment on above: Order Comment: Franchesca estrada Type: BLOOD SPECIMENOrdering Facility: [facility] Address: [address] [place] [address] Performed By: #### 1 9123-9, 27427-4, 1987-10, ####[facility] LABORATORYCLIA [id number] [address] Creatinine and Glomerular filtration rate.predicted panel (S/P/Bld) 53 mL/min/1.73m??? Low >=60 [facility] Comment on above: Order Comment: Franchesca estrada Type: BLOOD SPECIMENOrdering Facility: [facility] Address: [address] [place] [address] Result Comment: Marcela mated Glomerular Filtration Rate (eGFR) is calculated using the 2020 CKD-EPI creatinine equation. This equation utilizes serum creatinine, sex, and age as parameters. The creatinine assay has traceable calibration to isotope dilution-mass spectrometry. Refer to KDIGO guidelines for clinical interpretation. In patients with unstable renal function, e.g. those with acute kidney injury, the eGFR may not accurately reflect actual GFR. Performed By: #### 1 9123-9, 22438-4, 1987-10, ####[facility] LABORATORYCLIA [id number] [place] [id number] [facility] Glucose [Mass/Vol] 92 mg/dL Normal 74-99 [facility] Comment on above: Order Comment: Franchesca estrada Type: BLOOD SPECIMENOrdering Facility: [facility] Address: [address] [place] [address] Result Comment: The [place] Diabetes Association (ADA) provides guidance for cutoff values for fasting glucose and random glucose. The ADA defines fasting as no caloric intake for at least 8 hours. Fasting plasma glucose results between 100 to 125 mg/dL indicate increased risk for diabetes (prediabetes).Fasting plasma glucose results greater than or equal to 126 mg/dL meet the criteria for diagnosis of diabetes. In the absence of unequivocal hyperglycemia, results should be confirmed by repeat testing. In a patient with classic symptoms of hyperglycemia or hyperglycemic crisis, random plasma glucose results greater than or equal to 200 mg/dL meet the criteria for diagnosis of diabetes.Reference: Standards of Medical Care in Diabetes 2016, [place] [employer]. Diabetes Care. 2016.39(Suppl 1). Performed By: #### 1 9123-9, 43651-4, 1987-10, ####[facility] LABORATORYCLIA [id number] [place] [address] [place] Phosphate [Mass/Vol] 3.4 mg/dL Normal 2.7-4.8 [facility] Comment on above: Order Comment: Speci men Type: BLOOD SPECIMENOrdering Facility: [facility] Address: [address] [place] [address] Performed By: #### 1 9123-9, , 1987-10, ####[facility] LABORATORYCLIA [id number] [place] [address] [place] Potassium [Moles/Vol] 4.3 mmol/L Normal 3.7-5.1 [facility] Comment on above: Order Comment: Speci men Type: BLOOD SPECIMENOrdering Facility: [facility] Address: [address] [place] [address] Performed By: #### 1 9123-9, , 1987-10, ####[facility] LABORATORYCLIA [id number] [place] [address] [place] Sodium [Moles/Vol] 131 mmol/L Low 136-144 [facility] Comment on above: Order Comment: Speci men Type: BLOOD SPECIMENOrdering Facility: [facility] Address: [address] [place] [address] Performed By: #### 1 9123-9, , 1987-10, ####[facility] LABORATORYCLIA [id number] [place] [id number] [place] Urea nitrogen [Mass/Vol] 29 mg/dL High 9-24 [facility] Comment on above: Order Comment: Speci men Type: BLOOD SPECIMENOrdering Facility: [facility] Address: [address] [place] [address] Performed By: #### 1 9123-9, 59522-9, 1987-5, 27933-4 ####[facility] LABORATORYCLIA [id number] [address] [place] STAPHYLOCOCCUS AUREUS AND MR SA SCREEN, PCR, NASALon 12-13-2024 S. aureus and MRSA panel MAKAYLA+probe (Nose) Not detected Normal Not Detected [facility] Comment on above: Order Comment: Speci men Type: SWABOrdering Facility: [facility] Address: [address] [place] [address] Performed By: #### S APCR ####[facility] LABORATORYCLIA [id number] [address] TYPE + SCREENon 12-13-2024 ABO B Normal [facility] Comment on above: Order Comment: Speci men Type: BLOOD SPECIMENOrdering Facility: [facility] Address: [address] [place] [address] Performed By: #### T SCR ####[facility] BLOOD BANKCLIA [id number] [address] Rh Nom (Bld) Positive Normal [facility] Comment on above: Order Comment: Speci men Type: BLOOD SPECIMENOrdering Facility: [facility] Address: [address] [place] [address] Performed By: #### T SCR ####[facility] BLOOD BANKCLIA [id number] [address] OF [facility] TYPE AND SCREEN EXPIRATION 12/16/2024 23:59 Normal [facility] Comment on above: Order Comment: Speci men Type: BLOOD SPECIMENOrdering Facility: [facility] Address: [address] [place] [address] Performed By: #### T SCR ####[facility] BLOOD BANKCLIA [id number] [place] [address] [place] XR CHEST 1V FRONTALon 2024 XR CHEST 1V FRONTAL Normal [facility] Bacteria Spec Resp Culton Bacteria identified Respiratory culture Nom (Unsp spec) CULTURE, RESPIRATORY: Moderate Normal respiratory meghna present GRAM STAIN: Many Mixed oral meghna Moderate Polymorphonuclear leukocytes Rare Epithelial cells Abnormal [facility] Comment on above: Performed By: #### 3 2355-0 ####[facility] LABORATORYCLIA [id number] [address] STATES OF [facility] CBC W Ordered Manual Differe ntial panel (Bld)on 12-12-2024 ANISOCYTOSIS Present Normal [facility] Comment on above: Order Comment: Speci men Type: BLOOD SPECIMENOrdering Facility: [facility] Address: [address] [place] [address] Performed By: #### S TFREV, 25159-2 ####[facility] LABORATORYCLIA [id number] [address] [place] Basophils (Bld) [#/Vol] 0.00 10*3/uL Normal <0.11 [facility] Comment on above: Order Comment: Speci men Type: BLOOD SPECIMENOrdering Facility: [facility] Address: [address] [place] [address] Performed By: #### S TFRVALENCIA, 56077-8 ####[facility] LABORATORYCLIA [id number] [address] STATES [facility] Basophils/100 WBC (Bld) 0.0 % Normal A [facility] Comment on above: Order Comment: Speci men Type: BLOOD SPECIMENOrdering Facility: [facility] Address: [address] [place] [address] Performed By: #### S TFREV, 90145-1 ####[facility] LABORATORYCLIA [id number] [address] STATES [facility] Differential cell count method Nom (Bld) Manual Normal [facility] Comment on above: Order Comment: Speci men Type: BLOOD SPECIMENOrdering Facility: [facility] Address: [facility] [place] [address] Performed By: #### S TFRVALENCIA, 54753-7 ####[facility] LABORATORYCLIA [id number] [address] [place] Eosinophils (Bld) [#/Vol] 0.00 10*3/uL Normal <0.46 [facility] Comment on above: Order Comment: Speci men Type: BLOOD SPECIMENOrdering Facility: [facility] Address: [address] [place] [address] Performed By: #### S TFREV, 80892-9 ####[facility] LABORATORYCLIA [id number] [address] Eosinophils/100 WBC (Bld) 0.0 % Normal [facility] Comment on above: Order Comment: Speci men Type: BLOOD SPECIMENOrdering Facility: [facility] Address: [address] [place] [address] Performed By: #### S TFREV, 45107-0 ####[facility] LABORATORYCLIA [id number] [address] Erythrocyte distribution width (RBC) [Ratio] 20.6 % High 11.5-15.0 [facility] Comment on above: Order Comment: Speci men Type: BLOOD SPECIMENOrdering Facility: [facility] Address: [address] [place] [address] Performed By: #### S TFREV, 84249-0 ####[facility] LABORATORYCLIA [id number] [address] Hematocrit (Bld) [Volume fraction] 21.1 % Low 39.0-51.0 [facility] Comment on above: Order Comment: Speci men Type: BLOOD SPECIMENOrdering Facility: [facility] Address: [address] [place] [address] Performed By: #### S TFREV, 18821-6 ####[facility] LABORATORYCLIA [id number] [address] [place] Hemoglobin (Bld) [Mass/Vol] 6.6 g/dL Low 13.0-17.0 [facility] Comment on above: Order Comment: Speci men Type: BLOOD SPECIMENOrdering Facility: [facility] Address: [address] [place] [address] Performed By: #### S TFRVALENCIA, 89650-4 ####[facility] LABORATORYCLIA [id number] [address] Lymphocytes (Bld) [#/Vol] 0.48 10*3/uL Low 1.00-4.00 [facility] Comment on above: Order Comment: Speci men Type: BLOOD SPECIMENOrdering Facility: [facility] Address: [address] [place] [address] Performed By: #### S TFRVALENCIA, 73599-3 ####[facility] LABORATORYCLIA [id number] [address] Lymphocytes/100 WBC (Bld) 3.0 % Normal [facility] Comment on above: Order Comment: Speci men Type: BLOOD SPECIMENOrdering Facility: [facility] Address: [address] [place] [address] Performed By: #### S TFRVALENCIA, 41952-6 ####[facility] LABORATORYCLIA [id number] [address] [place] MCH (RBC) [Entitic mass] 30.3 pg Normal 26.0-34.0 [facility] Comment on above: Order Comment: Speci men Type: BLOOD SPECIMENOrdering Facility: [facility] Address: [address] [place] [address] Performed By: #### S TFRVALENCIA, 30722-9 ####[facility] LABORATORYCLIA [id number] [address] [place] MCHC (RBC) [Mass/Vol] 31.3 g/dL Normal 30.5-36.0 [facility] Comment on above: Order Comment: Speci men Type: BLOOD SPECIMENOrdering Facility: [facility] Address: [address] [place] [address] Performed By: #### S TFRVALENCIA, 64311-8 ####[facility] LABORATORYCLIA [id number] [address] MCV (RBC) [Entitic vol] 96.8 fL Normal 80.0-100.0 [facility] Comment on above: Order Comment: Speci men Type: BLOOD SPECIMENOrdering Facility: [facility] Address: [address] [place] [address] Performed By: #### S TFREV, 69426-2 ####[facility] LABORATORYCLIA [id number] [address] OF [facility] META% 4.0 % Normal [facility] Comment on above: Order Comment: Speci men Type: BLOOD SPECIMENOrdering Facility: [facility] Address: [address] [place] [address] Performed By: #### S TFREV, 08727-8 ####[facility] LABORATORYCLIA [id number] [address] OF [facility] Monocytes (Bld) [#/Vol] 1.91 10*3/uL High <0.87 [facility] Comment on above: Order Comment: Speci men Type: BLOOD SPECIMENOrdering Facility: [facility] Address: [address] [place] [address] Performed By: #### S TFREV, 39681-4 ####[facility] LABORATORYCLIA [id number] [address] Monocytes/100 WBC (Bld) 12.0 % Normal [facility] Comment on above: Order Comment: Speci men Type: BLOOD SPECIMENOrdering Facility: [facility] Address: [address] [place] [address] Performed By: #### S TFREV, 21389-0 ####[facility] LABORATORYCLIA [id number] [address] MYELO% 4.0 % Normal [facility] Comment on above: Order Comment: Speci men Type: BLOOD SPECIMENOrdering Facility: [facility] Address: [address] [place] [address] Performed By: #### S TFREV, 61550-1 ####[facility] LABORATORYCLIA [id number] [place] [address] [place] Neutrophils (Bld) [#/Vol] 12.27 10*3/uL High 1.45-7.50 [facility] Comment on above: Order Comment: Speci men Type: BLOOD SPECIMENOrdering Facility: [facility] Address: [address] [place] [address] Performed By: #### S TFREV, 24514-0 ####[facility] LABORATORYCLIA [id number] [address] [place] Neutrophils/100 WBC (Bld) 77.0 % Normal [facility] Comment on above: Order Comment: Speci men Type: BLOOD SPECIMENOrdering Facility: [facility] Address: [address] [place] [address] Performed By: #### S TFREV, 97963-9 ####[facility] LABORATORYCLIA [id number] [address] Nucleated RBC (Bld) [#/Vol] 10*3/uL Normal <0.01 [facility] Comment on above: Order Comment: Speci men Type: BLOOD SPECIMENOrdering Facility: [facility] Address: [address] [place] [address] Performed By: #### S TFREV, 36778-2 ####[facility] LABORATORYCLIA [id number] [address] STATES [facility] Nucleated RBC/100 WBC (Bld) [Ratio] 0.0 /100 WBC Normal [facility] Comment on above: Order Comment: Speci men Type: BLOOD SPECIMENOrdering Facility: [facility] Address: [address] [place] [address] Performed By: #### S TFREV, 32321-0 ####[facility]ORATORYCLIA [id number] [address] [place] Platelet mean volume (Bld) [Entitic vol] 9.1 fL Normal 9.0-12.7 [facility] Comment on above: Order Comment: Speci men Type: BLOOD SPECIMENOrdering Facility: [facility] Address: [address] [place] [address] Performed By: #### S TFREV, 74202-3 ####[facility] LABORATORYCLIA [id number] [address] [place] Platelets (Bld) [#/Vol] 445 10*3/uL High 150-400 [facility] Comment on above: Order Comment: Speci men Type: BLOOD SPECIMENOrdering Facility: [facility] Address: [address] [place] [address] Performed By: #### S TFREV, 37141-5 ####[facility] LABORATORYCLIA [id number] [address] [place] Platelets Estimate (Bld) [#/Vol] Adequate Normal [facility] Comment on above: Order Comment: Speci men Type: BLOOD SPECIMENOrdering Facility: [facility] Address: [address] [place] [address] Performed By: #### S TFREV, 30777-3 ####[facility] LABORATORYCLIA [id number] [address] [place] Polychromasia LM Ql (Bld) Slight Normal [facility] Comment on above: Order Comment: Speci men Type: BLOOD SPECIMENOrdering Facility: [facility] Address: [address] [place] [address] Performed By: #### S TFREV, 98695-5 ####[facility] LABORATORYCLIA [id number] [address] [place] RBC (Bld) [#/Vol] 2.18 10*6/uL Low 4.20-6.00 [facility] Comment on above: Order Comment: Speci men Type: BLOOD SPECIMENOrdering Facility: [facility] Address: [address] [place] [address] Performed By: #### S TFREV, 85657-1 ####[facility] LABORATORYCLIA [id number] [address] RED CELL MORPH Reviewed: see result s of individual morphologies Normal [facility] Comment on above: Order Comment: Speci men Type: BLOOD SPECIMENOrdering Facility: [facility] Address: [address] [place] [address] Performed By: #### S TFREV, 20291-8 ####[facility] LABORATORYCLIA [id number] [place] [address] [place] WBC (Bld) [#/Vol] 15.94 10*3/uL High 3.70-11.00 [facility] Comment on above: Order Comment: Speci men Type: BLOOD SPECIMENOrdering Facility: [facility] Address: [address] [place] [address] Performed By: #### S TFREV, 13014-2 ####[facility] LABORATORYCLIA [id number] [address] CBC panel Auto (Bld)on 12-12 Erythrocyte distribution width (RBC) [Ratio] 20.1 % High 11.5-15.0 [facility] Comment on above: Order Comment: Speci men Type: BLOOD SPECIMENOrdering Facility: [facility] Address: [address] [place] [address] Performed By: #### 5 8410-2 ####[facility] LABORATORYCLIA [id number] [address] STATES OF [facility] Hematocrit (Bld) [Volume fraction] 23.1 % Low 39.0-51.0 [facility] Comment on above: Order Comment: Speci men Type: BLOOD SPECIMENOrdering Facility: [facility] Address: [address] [place] [address] Performed By: #### 5 8410-2 ####[facility] LABORATORYCLIA [id number] [address] Hemoglobin (Bld) [Mass/Vol] 7.3 g/dL Low 13.0-17.0 [facility] Comment on above: Order Comment: Speci men Type: BLOOD SPECIMENOrdering Facility: [facility] Address: [address] [place] [address] Performed By: #### 5 8410-2 ####[facility] LABORATORYCLIA [id number] [address] MCH (RBC) [Entitic mass] 30.3 pg Normal 26.0-34.0 [facility] Comment on above: Order Comment: Speci men Type: BLOOD SPECIMENOrdering Facility: [facility] Address: [address] [place] [address] Performed By: #### 5 8410-2 ####[facility] LABORATORYCLIA [id number] [address] MCHC (RBC) [Mass/Vol] 31.6 g/dL Normal 30.5-36.0 [facility] Comment on above: Order Comment: Speci men Type: BLOOD SPECIMENOrdering Facility: [facility] Address: [address] [place] [address] Performed By: #### 5 8410-2 ####[facility] LABORATORYCLIA [id number] [address] MCV (RBC) [Entitic vol] 95.9 fL Normal 80.0-100.0 [facility] Comment on above: Order Comment: Speci men Type: BLOOD SPECIMENOrdering Facility: [facility] Address: [address] [place] [address] Performed By: #### 5 8410-2 ####[facility] LABORATORYCLIA [id number] [address] Nucleated RBC (Bld) [#/Vol] 10*3/uL Normal <0.01 [facility] Comment on above: Order Comment: Speci men Type: BLOOD SPECIMENOrdering Facility: [facility] Address: [address] [place] [address] Performed By: #### 5 8410-2 ####[facility]ATORYCLIA [id number] [address] Platelet mean volume (Bld) [Entitic vol] 9.3 fL Normal 9.0-12.7 [facility] Comment on above: Order Comment: Speci men Type: BLOOD SPECIMENOrdering Facility: [facility] Address: [address] [place] [address] Performed By: #### 5 8410-2 ####[facility]ATORYCLIA [id number] [place] [address] [place] Platelets (Bld) [#/Vol] 513 10*3/uL High 150-400 [facility] Comment on above: Order Comment: Speci men Type: BLOOD SPECIMENOrdering Facility: [facility] Address: [address] [place] [address] Performed By: #### 5 8410-2 ####[facility]ATORYCLIA [id number] [place] [address] [place] RBC (Bld) [#/Vol] 2.41 10*6/uL Low 4.20-6.00 [facility] Comment on above: Order Comment: Speci men Type: BLOOD SPECIMENOrdering Facility: [facility] Address: [address] [place] [address] Performed By: #### 5 8410-2 ####[facility]ATORYCLIA [id number] [address] [place] WBC (Bld) [#/Vol] 13.85 10*3/uL High 3.70-11.00 [facility] Comment on above: Order Comment: Speci men Type: BLOOD SPECIMENOrdering Facility: [facility] Address: [address] [place] [address] Performed By: #### 5 8410-2 ####[facility]ATORYCLIA [id number] [place] [id number] [facility] [place] CYSTATIN Con 12-12-2024 Cystatin C [Mass/Vol] 1.99 mg/L High 0.61-0.95 [facility] Comment on above: Order Comment: Speci men Type: BLOOD SPECIMENOrdering Facility: [facility] Address: [address] [place] [address] Performed By: #### C YSTC ####[facility] LABCLIA [id number] [place] [address] [place] CYSTATIN C EGFR 30 mL/min/1.73m??? Low >=60 A [facility] Comment on above: Order Comment: Speci men Type: BLOOD SPECIMENOrdering Facility: [facility] Address: [address] [place] [address] Result Comment: Marcela mated Glomerular Filtration Rate (eGFR) is calculated using the 2012 CKD-EPI cystatin C equation. This equation utilizes serum cystatin C, sex, and age as parameters. The cystatin C assay has traceable calibration to the ERM-DA471/IF reference material. Refer to KDIGO guidelines for clinical interpretation. In patients with unstable renal function, e.g. those with acute kidney injury, the eGFR may not accurately reflect actual GFR. Performed By: #### C YSTC ####[facility] LABCLIA [id number] [place] [address] [place] D dimer FEU PPP-mCncon 12-12 Fibrin D-dimer FEU (PPP) [Mass/Vol] 2030 ng/mL FEU High <500 [facility] Comment on above: Order Comment: Speci men Type: BLOOD SPECIMENOrdering Facility: [facility] Address: [address] [place] [address] Performed By: #### 3 255-7, 30361-6, 12134-7, 64573-5 ####[facility]ATORYCLIA [id number] [address] STATES OF [facility] Fibrin D-dimer FEU (PPP) [Ma ss/Vol]on 12-12-2024 D DIMER AGE-RELATED CUTOFF 690 ng/mL FEU Normal [facility] Comment on above: Order Comment: Speci men Type: BLOOD SPECIMENOrdering Facility: [facility] Address: [address] [place] [address] Performed By: #### 3 255-7, 28332-7, 20777-7, 88869-9 ####[facility]ATORYCLIA [id number] [address] [place] Fibrinogen PPP-mCncon 2024 Fibrinogen Coag (PPP) [Mass/Vol] mg/dL High 200-400 [facility] Comment on above: Order Comment: Speci men Type: BLOOD SPECIMENOrdering Facility: [facility] Address: [address] [place] [address] Performed By: #### 3 255-7, 41259-2, 19427-2, 33376-1 ####[facility]ATORYCLIA [id number] [address] OF [facility] Gas and Carbon monoxide pane l (BldV)on 12-12-2024 Base excess Calc (BldV) [Moles/Vol] 0 mmol/L Normal 0-2 [facility] Comment on above: Order Comment: Speci men Type: VENOUS BLOOD SPECIMENOrdering Facility: [facility] Address: [address] [place] [address] Performed By: #### 2 4344-4 ####[facility]ATORYCLIA [id number] [address] STATES [facility] Body temperature 98.6 [degF] Normal [facility] Comment on above: Order Comment: Speci men Type: VENOUS BLOOD SPECIMENOrdering Facility: [facility] Address: [address] [place] [address] Performed By: #### 2 4344-4 ####[facility]ATORYCLIA [id number] [address] [place] Calcium.ionized (BldV) [Mass/Vol] 1.14 mmol/L Normal 1.08-1.30 [facility] Comment on above: Order Comment: Speci men Type: VENOUS BLOOD SPECIMENOrdering Facility: [facility] Address: [address] [place] [address] Performed By: #### 2 4344-4 ####[facility]ATORYCLIA [id number] [address] Calcium.ionized adjusted to pH 7.4 (BldA) [Moles/Vol] 1.04 mmol/L Low 1.08-1.30 [facility] Comment on above: Order Comment: Speci men Type: VENOUS BLOOD SPECIMENOrdering Facility: [facility] Address: [address] [place] [address] Performed By: #### 2 4344-4 ####[facility]ATORYCLIA [id number] [address] [place] Carboxyhemoglobin (BldV) [Mass fraction] 3.6 % High 0.0-2.0 [facility] Comment on above: Order Comment: Speci men Type: VENOUS BLOOD SPECIMENOrdering Facility: [facility] Address: [address] [place] [address] Result Comment: Carb oxyhemoglobin Reference Range for Smokers: 2.0-8.0% Performed By: #### 2 4344-4 ####[facility]ATORYCLIA [id number] [place] [address] [place] Chloride [Moles/Vol] 95 mmol/L Low 97-105 [facility] Comment on above: Order Comment: Speci men Type: VENOUS BLOOD SPECIMENOrdering Facility: [facility] Address: [address] [place] [address] Performed By: #### 2 4344-4 ####[facility]ATORYCLIA [id number] [address] [place] CO2 (BldV) [Partial pressure] 68 mm[Hg] High 42-55 [facility] Comment on above: Order Comment: Speci men Type: VENOUS BLOOD SPECIMENOrdering Facility: [facility] Address: [address] [place] [address] Performed By: #### 2 4344-4 ####[facility]ATORYCLIA [id number] [address] [place] Glucose [Mass/Vol] 94 mg/dL Normal 60-105 [facility] Comment on above: Order Comment: Speci men Type: VENOUS BLOOD SPECIMENOrdering Facility: [facility] Address: [address] [place] [address] Performed By: #### 2 4344-4 ####[facility]ATORYCLIA [id number] [place] [phone] [place] HCO3 (Bld) [Moles/Vol] 28 mmol/L Normal 24-28 [facility] Comment on above: Order Comment: Speci men Type: VENOUS BLOOD SPECIMENOrdering Facility: [facility] Address: [address] [place] [address] Performed By: #### 2 4344-4 ####[facility]ATORYCLIA [id number] [address] [place] Hematocrit (Bld) [Volume fraction] 21.3 % Low 39.0-51.0 [facility] Comment on above: Order Comment: Speci men Type: VENOUS BLOOD SPECIMENOrdering Facility: [facility] Address: [address] [place] [address] Performed By: #### 2 4344-4 ####[facility]ATORYCLIA [id number] [address] [place] Hemoglobin (Bld) [Mass/Vol] 6.8 g/dL Low 13.0-17.0 [facility] Comment on above: Order Comment: Speci men Type: VENOUS BLOOD SPECIMENOrdering Facility: [facility] Address: [address] [place] [address] Performed By: #### 2 4344-4 ####[facility]ATORYCLIA [id number] [address] [place] Lactate [Moles/Vol] 3.3 mmol/L High 0.5-2.2 [facility] Comment on above: Order Comment: Speci men Type: VENOUS BLOOD SPECIMENOrdering Facility: [facility] Address: [address] [place] [address] Performed By: #### 2 4344-4 ####[facility]ATORYCLIA [id number] [address] [place] Methemoglobin (Bld) [Mass fraction] 0.9 % Normal 0.0-1.5 [facility] Comment on above: Order Comment: Speci men Type: VENOUS BLOOD SPECIMENOrdering Facility: [facility] Address: [address] [place] [address] Performed By: #### 2 4344-4 ####[facility]ATORYCLIA [id number] [address] [place] O2 THERAPY RA=Room Air Normal [facility] Comment on above: Order Comment: Speci men Type: VENOUS BLOOD SPECIMENOrdering Facility: [facility] Address: [address] [place] [address] Performed By: #### 2 4344-4 ####[facility]ATORYCLIA [id number] [address] [place] Oxygen (BldV) [Partial pressure] 57 mm[Hg] High 35-45 [facility] Comment on above: Order Comment: Speci men Type: VENOUS BLOOD SPECIMENOrdering Facility: [facility] Address: [address] [place] [address] Performed By: #### 2 4344-4 ####[facility]ORYCLIA [id number] [address] [place] Oxygen saturation in Venous blood 78 % Normal 60-85 [facility] Comment on above: Order Comment: Speci men Type: VENOUS BLOOD SPECIMENOrdering Facility: [facility] Address: [address] [place] [address] Performed By: #### 2 4344-4 ####[facility]ORYCLIA [id number] [place] [address] [place] Oxyhemoglobin (BldV) [Mass fraction] 75 % Normal 60-85 [facility] Comment on above: Order Comment: Speci men Type: VENOUS BLOOD SPECIMENOrdering Facility: [facility] Address: [address] [place] [address] Performed By: #### 2 4344-4 ####[facility]ATORYCLIA [id number] [place] [address] [place] pH (BldV) 7.23 [pH] Low 7.32-7.42 [facility] Comment on above: Order Comment: Speci men Type: VENOUS BLOOD SPECIMENOrdering Facility: [facility] Address: [address] [place] [address] Performed By: #### 2 4344-4 ####[facility]ATORYCLIA [id number] [address] [place] Potassium [Moles/Vol] 3.8 mmol/L Normal 3.5-5.0 [facility] Comment on above: Order Comment: Speci men Type: VENOUS BLOOD SPECIMENOrdering Facility: [facility] Address: [address] [place] [address] Performed By: #### 2 4344-4 ####[facility]ATORYCLIA [id number] [address] STATES OF [facility] Sodium [Moles/Vol] 132 mmol/L Low 136-144 [facility] Comment on above: Order Comment: Speci men Type: VENOUS BLOOD SPECIMENOrdering Facility: [facility] Address: [address] [place] [address] Performed By: #### 2 4344-4 ####[facility]ATORYCLIA [id number] [address] [place] Haptoglob SerPl-mCncon 12-12 Haptoglobin [Mass/Vol] 142 mg/dL Normal 31-238 [facility] Comment on above: Order Comment: Speci men Type: BLOOD SPECIMENOrdering Facility: [facility] Address: [address] [place] [address] Performed By: #### 2 4362-6, 4542-7, 32055-2 ####[facility]ATORYCLIA [id number] [place] [address] [place] Hepatic function 2000 panelo n 12-12-2024 ALP [Catalytic activity/Vol] 128 U/L High 38-113 [facility] Comment on above: Order Comment: Speci men Type: BLOOD SPECIMENOrdering Facility: [facility] Address: [address] [place] [address] Performed By: #### 2 4362-6, 4542-7, 05424-6 ####[facility]ATORYCLIA [id number] [place] [address] [place] ALT With P-5'-P [Catalytic activity/Vol] 31 U/L Normal 10-54 [facility] Comment on above: Order Comment: Speci men Type: BLOOD SPECIMENOrdering Facility: [facility] Address: [address] [place] [address] Performed By: #### 2 4362-6, 4542-7, 18380-9 ####[facility]ATORYCLIA [id number] [place] [address] [place] AST With P-5'-P [Catalytic activity/Vol] 42 U/L High 14-40 [facility] Comment on above: Order Comment: Speci men Type: BLOOD SPECIMENOrdering Facility: [facility] Address: [address] [place] [address] Performed By: #### 2 4362-6, 454-7, 92663-4 ####[facility]ITALCLIA [id number] [place] [address] [place] Bilirubin [Mass/Vol] 1.1 mg/dL Normal 0.2-1.3 [facility] Comment on above: Order Comment: Speci men Type: BLOOD SPECIMENOrdering Facility: [facility] Address: [address] [place] [address] Performed By: #### 2 4362-6, 4542-7, 29828-5 ####[facility]ATORYCLIA [id number] [place] [address] [facility] [place] Bilirubin.conjugated [Mass/Vol] 0.6 mg/dL High <0.3 [facility] Comment on above: Order Comment: Speci men Type: BLOOD SPECIMENOrdering Facility: [facility] Address: [address] [place] [address] Performed By: #### 2 4362-6, 4542-7, 79921-3 ####[facility]ATORYCLIA [id number] [place] [address] [place] Protein [Mass/Vol] 7.4 g/dL Normal 6.3-8.0 [facility] Comment on above: Order Comment: Speci men Type: BLOOD SPECIMENOrdering Facility: [facility] Address: [address] [place] [address] Performed By: #### 2 4362-6, 4542-7, 48503-6 ####[facility]ATORYCLIA [id number] [address] [place] Hgb Bld-mCncon 12-12-2024 Hemoglobin (Bld) [Mass/Vol] 6.9 g/dL Low 13.0-17.0 [facility] Comment on above: Order Comment: Speci men Type: BLOOD SPECIMENOrdering Facility: [facility] Address: [address] [place] [address] Performed By: #### 7 18-7 ####[facility]ORATORYCLIA [id number] [address] LDH SerPl-cCncon 12-12-2024 LDH [Catalytic activity/Vol] 384 U/L High 135-225 [facility] Comment on above: Order Comment: Speci men Type: BLOOD SPECIMENOrdering Facility: [facility] Address: [address] [place] [address] Performed By: #### 2 532-0 ####[facility]ATORYCLIA [id number] [address] PATHOLOGIST INTERPRETATION C BC/DIFFon 12-12-2024 [employer] Receptionist review Jani (Unsp spec) [Interp] Reviewed by Kasi Figueroa MD [facility] Comment on above: Order Comment: Speci men Type: BLOOD SPECIMENOrdering Facility: [facility] Address: [address] [place] [address] Performed By: #### S TFREV, 07558-3 ####[facility]ATORYCLIA [id number] [address] [place] STAFF REVIEW, CBCDIF Normal [facility] Comment on above: Order Comment: Speci men Type: BLOOD SPECIMENOrdering Facility: [facility] Address: [address] [place] [address] Performed By: #### S TFREV, 61601-8 ####[facility]ATORYCLIA [id number] [place] [phone] [facility] PT panel Coag (PPP)on 2024 INR Coag (PPP) [Relative time] 1.0 {INR} Normal 0.9-1.3 [facility] Comment on above: Order Comment: Speci men Type: BLOOD SPECIMENOrdering Facility: [facility] Address: [address] [place] [address] Result Comment: Lauren min K Antagonist (VKA) Therapeutic Range: INR 2 to 3 (Target INR of 2.5)Note: For patients treated with VKA drugs, such as warfarin, the [place] [employer] 2012 Guideline recommends a therapeutic INR range of 2 to 3 (target INR of 2.5). This recommendation includes high-risk patients with antiphospholipid syndrome with previous arterial or venous thromboembolism, current-generation mechanical or bioprosthetic aortic heart valve replacement.Note: Patients with mechanical aortic valve replacement and additional risk factors for thromboembolic events (atrial fibrillation, previous thromboembolism, LV dysfunction, hypercoagulable conditions) or an older generation mechanical AVR (i.e., ball in-Cage) or any mechanical MVR should have a INR therapeutic range of 2.5 to 3.5 (target INR of 3).Jasper GH, et al. Chest 2012, 141:7S-47SNishimura RA, et al. [facility] 2017, 70: 252-289 Performed By: #### 3 255-7, 96396-8, 80145-6, 60337-5 ####[facility]ATORYCLIA [id number] [place] [phone] [place] PT Coag (PPP) [Time] 11.4 s Normal 9.7-13.0 [facility] Comment on above: Order Comment: Speci sean Type: BLOOD SPECIMENOrdering Facility: [facility] Address: [address] [place] [id number] Performed By: #### 3 255-7, 50931-2, 87406-6, 86888-9 ####[facility]ATORYCLIA [id number] [place] [phone] [place] Renal Func 2000 Pnl SerPlon 12-12-2024 Albumin [Mass/Vol] 3.2 g/dL Low 3.9-4.9 [facility] Comment on above: Order Comment: Speci men Type: BLOOD SPECIMENOrdering Facility: [facility] Address: [address] [place] [address] Performed By: #### 2 4362-6, 4542-7, 42126-1 ####[facility]ATORYCLIA [id number] [address] [place] Renal function 2000 panelon 12-12-2024 Anion gap [Moles/Vol] 14 mmol/L Normal 8-15 [facility] Comment on above: Order Comment: Speci men Type: BLOOD SPECIMENOrdering Facility: [facility] Address: [address] [place] [address] Performed By: #### 2 4362-6, 4542-7, 08034-3 ####[facility]ATORYCLIA [id number] [address] [place] Calcium [Mass/Vol] 8.9 mg/dL Normal 8.5-10.2 [facility] Comment on above: Order Comment: Speci men Type: BLOOD SPECIMENOrdering Facility: [facility] Address: [address] [place] [address] Performed By: #### 2 4362-6, 4542-7, 07629-7 ####[facility]ATORYCLIA [id number] [place] [address] [place] Chloride [Moles/Vol] 91 mmol/L Low 98-107 [facility] Comment on above: Order Comment: Speci men Type: BLOOD SPECIMENOrdering Facility: [facility] Address: [address] [place] [address] Performed By: #### 2 4362-6, 4542-7, 13694-7 ####[facility]ATORYCLIA [id number] [place] [address] [place] CO2 [Moles/Vol] 27 mmol/L Normal 22-30 [facility] Comment on above: Order Comment: Franchesca estrada Type: BLOOD SPECIMENOrdering Facility: [facility] Address: [address] [place] [address] Performed By: #### 2 4362-6, 4542-7, 09174-2 ####[facility]ATORYCLIA [id number] [place] [phone] [place] Creatinine [Mass/Vol] 1.42 mg/dL High 0.73-1.22 [facility] Comment on above: Order Comment: Franchesca estrada Type: BLOOD SPECIMENOrdering Facility: [facility] Address: [address] [place] [address] Performed By: #### 2 4362-6, 4542-7, 47798-9 ####[facility] BENDIA [id number] [address] Creatinine and Glomerular filtration rate.predicted panel (S/P/Bld) 53 mL/min/1.73m??? Low >=60 [facility] Comment on above: Order Comment: Franchesca estrada Type: BLOOD SPECIMENOrdering Facility: [facility] Address: [address] [place] [address] Result Comment: Marcela mated Glomerular Filtration Rate (eGFR) is calculated using the 2020 CKD-EPI creatinine equation. This equation utilizes serum creatinine, sex, and age as parameters. The creatinine assay has traceable calibration to isotope dilution-mass spectrometry. Refer to KDIGO guidelines for clinical interpretation. In patients with unstable renal function, e.g. those with acute kidney injury, the eGFR may not accurately reflect actual GFR. Performed By: #### 2 4362-6, 4542-7, 30952-8 ####[facility]ATORYCLIA [id number] [place] [phone] [place] Glucose [Mass/Vol] 100 mg/dL High 74-99 [facility] Comment on above: Order Comment: Franchesca estrada Type: BLOOD SPECIMENOrdering Facility: [facility] Address: [address] [place] [address] Result Comment: The [place] [employer] (ADA) provides guidance for cutoff values for fasting glucose and random glucose. The ADA defines fasting as no caloric intake for at least 8 hours. Fasting plasma glucose results between 100 to 125 mg/dL indicate increased risk for diabetes (prediabetes).Fasting plasma glucose results greater than or equal to 126 mg/dL meet the criteria for diagnosis of diabetes. In the absence of unequivocal hyperglycemia, results should be confirmed by repeat testing. In a patient with classic symptoms of hyperglycemia or hyperglycemic crisis, random plasma glucose results greater than or equal to 200 mg/dL meet the criteria for diagnosis of diabetes.Reference: Standards of Medical Care in Diabetes 2016, [place] [employer]. Diabetes Care. 2016.39(Suppl 1). Performed By: #### 2 4362-6, 4542-7, 61944-8 ####[facility]ATORYCLIA [id number] [place] [address] [place] Phosphate [Mass/Vol] 3.7 mg/dL Normal 2.7-4.8 [facility] Comment on above: Order Comment: Speci men Type: BLOOD SPECIMENOrdering Facility: [facility] Address: [address] [place] [id number] Performed By: #### 2 4362-6, 4542-7, 86873-6 ####[facility]CLIA [id number] [place] [address] [place] Potassium [Moles/Vol] 4.0 mmol/L Normal 3.7-5.1 [facility] Comment on above: Order Comment: Speci men Type: BLOOD SPECIMENOrdering Facility: [facility] Address: [address] [place] [address] Performed By: #### 2 4362-6, 4542-7, 88823-0 ####[facility]ATORYCLIA [id number] [place] [address] [place] Sodium [Moles/Vol] 132 mmol/L Low 136-144 [facility] Comment on above: Order Comment: Speci men Type: BLOOD SPECIMENOrdering Facility: [facility] Address: [address] [place] [address] Performed By: #### 2 4362-6, 4542-7, 74190-9 ####[facility]ATORYCLIA [id number] [address] [place] Urea nitrogen [Mass/Vol] 27 mg/dL High 9-24 [facility] Comment on above: Order Comment: Speci men Type: BLOOD SPECIMENOrdering Facility: [facility] Address: [address] [place] [address] Performed By: #### 2 4362-6, 4542-7, 03932-2 ####[facility]ATORYCLIA [id number] [address] [place] aPTT PPPon 12-12-2024 aPTT Coag (PPP) [Time] 33.0 s High 23.0-32.4 [facility] Comment on above: Order Comment: Speci men Type: BLOOD SPECIMENOrdering Facility: [facility] Address: [address] [place] [address] Performed By: #### 3 255-7, 90068-1, 48929-1, 67088-7 ####[facility]ATORYCLIA [id number] [place] [address] [place] ALLIED HEALTHon 12-11-2024 ALLIED HEALTH Normal [facility] CASE MGT INIT ASSESon 2024 CASE MGT INIT ASSES Normal [facility] CBC panel Auto (Bld)on 12-11 Erythrocyte distribution width (RBC) [Ratio] 19.6 % High 11.5-15.0 [facility] Comment on above: Order Comment: Speci men Type: BLOOD SPECIMENOrdering Facility: [facility] Address: [address] [place] [address] Performed By: #### 5 5454-3 ####[facility] LABCLIA [id number] [facility]OSPITALDarren [address] [place]#### [address]-1 ####[facility]ATORYCLIA [id number] [address] [place] [facility] Hematocrit (Bld) [Volume fraction] 25.1 % Low 39.0-51.0 [facility] Comment on above: Order Comment: Speci men Type: BLOOD SPECIMENOrdering Facility: [facility] Address: [address] [place] [address] Performed By: #### 5 5454-3 ####[facility] LABCLIA [id number] [address] [place]#### [address]-9 ####[facility] LABORATORYCLIA [id number] [address] [place] [facility] Hemoglobin (Bld) [Mass/Vol] 7.9 g/dL Low 13.0-17.0 [facility] Comment on above: Order Comment: Speci men Type: BLOOD SPECIMENOrdering Facility: [facility] Address: [address] [place] [address] Performed By: #### 5 5454-3 ####[facility] LABCLIA [id number] [address] [place]#### [address]-1 ####[facility]ORATORYCLIA [id number] [address] [place] MCH (RBC) [Entitic mass] 29.8 pg Normal 26.0-34.0 [facility] Comment on above: Order Comment: Speci men Type: BLOOD SPECIMENOrdering Facility: [facility] Address: [address] [place] [address] Performed By: #### 5 5454-3 ####[facility] LABCLIA [id number] [place] [address] [place]#### 14495-7 ####[facility] LABORATORYCLIA [id number] [place] [address] [place] MCHC (RBC) [Mass/Vol] 31.5 g/dL Normal 30.5-36.0 [facility] Comment on above: Order Comment: Speci men Type: BLOOD SPECIMENOrdering Facility: [facility] Address: [address] [place] [address] Performed By: #### 5 5454-3 ####[facility] LABCLIA [id number] [address]#### [address]87[address]-7 ####[facility]ATORYCLIA [id number] [address] MCV (RBC) [Entitic vol] 94.7 fL Normal 80.0-100.0 [facility] Comment on above: Order Comment: Speci men Type: BLOOD SPECIMENOrdering Facility: [facility] Address: [address] [place] [address] Performed By: #### 5 5454-3 ####[facility] LABCLIA [id number] [address] [place]#### [address]-3 ####[facility]ATORYCLIA [id number] [address] [place] [facility] Nucleated RBC (Bld) [#/Vol] 10*3/uL Normal <0.01 [facility] Comment on above: Order Comment: Speci men Type: BLOOD SPECIMENOrdering Facility: [facility] Address: [address] [place] [address] Performed By: #### 5 5454-3 ####[facility] LABCLIA [id number] [address]#### [address]-3 ####[facility]ATORYCLIA [id number] [address] [place] Platelet mean volume (Bld) [Entitic vol] 9.1 fL Normal 9.0-12.7 [facility] Comment on above: Order Comment: Speci men Type: BLOOD SPECIMENOrdering Facility: [facility] Address: [address] [place] [address] Performed By: #### 5 5454-3 ####[facility] LABCLIA [id number] [address] [place]#### [address]-6 ####[facility]ATORYCLIA [id number] [address] Platelets (Bld) [#/Vol] 480 10*3/uL High 150-400 [facility] Comment on above: Order Comment: Speci men Type: BLOOD SPECIMENOrdering Facility: [facility] Address: [address] [place] [address] Performed By: #### 5 5454-3 ####[facility] LABCLIA [id number] [address] [place]#### [address]-6 ####[facility]ATORYCLIA [id number] [address] [place] [facility] RBC (Bld) [#/Vol] 2.65 10*6/uL Low 4.20-6.00 [facility] Comment on above: Order Comment: Speci men Type: BLOOD SPECIMENOrdering Facility: [facility] Address: [address] [place] [address] Performed By: #### 5 5454-3 ####[facility] LABCLIA [id number] [address] [place]#### [address]-6 ####[facility]ATORYCLIA [id number] [address] WBC (Bld) [#/Vol] 11.06 10*3/uL High 3.70-11.00 [facility] Comment on above: Order Comment: Speci men Type: BLOOD SPECIMENOrdering Facility: [facility] Address: [address] [place] [address] Performed By: #### 5 5454-3 ####[facility] LABCLIA [id number] [address]#### [address]-0 ####[facility]ORATORYCLIA [id number] [address] [place] CONSULTon 12-11-2024 CONSULT Normal [facility] CT ABD/PEL WO IVCONon 2024 CT ABD/PEL WO IVCON Normal [facility] HbA1c (Bld)on 12-11-2024 Average glucose Estimated from glycated hemoglobin (Bld) [Mass/Vol] 103 mg/dL Normal [facility] Comment on above: Order Comment: Speci men Type: BLOOD SPECIMENOrdering Facility: [facility] Address: [address] [place] [address] Result Comment: eAG: (Estimated average glucose) is a calculated value from HgbA1c and is new accounts representative of the average blood glucose level in the last 2-3 month period. Performed By: #### 5 5454-3 ####[facility] LABCLIA [id number] [address]#### 98982-9 ####[facility]ATORYCLIA [id number] [address] HbA1c (Bld) [Mass fraction] 5.2 % Normal 4.3-5.6 [facility] Comment on above: Order Comment: Speci men Type: BLOOD SPECIMENOrdering Facility: [facility] Address: [address] [place] [address] Result Comment: Amer [place] Diabetes Association guidelines indicate that patients with HgbA1c in the range 5.7-6.4% are at increased risk for development of diabetes, and intervention by lifestyle modification may be beneficial. HgbA1c greater or equal to 6.5% is considered diagnostic of diabetes. Performed By: #### 5 5454-3 ####[facility] LABCLIA [id number] [address]#### 61589-5 ####[facility] LABORATORYCLIA [id number] [address] LIPID PANEL, NONFASTINGon Cholesterol [Mass/Vol] 107 mg/dL Normal <200 [facility] Comment on above: Order Comment: Specchioma estrada Type: BLOOD SPECIMENOrdering Facility: [facility] Address: [address] [place] [address] Result Comment: <200 mg/dL, Desirable 200-239 mg/dL, Borderline high>239 mg/dL, High Performed By: #### L IPNF, 76330-5, 15458-9, 11822-8, TSHRF ####[facility]ORATORYCLIA [id number] [address] HDL CHOLESTEROL, NF 37 mg/dL Low >39 [facility] Comment on above: Order Comment: Girishchioma estrada Type: BLOOD SPECIMENOrdering Facility: [facility] Address: [address] [place] [address] Result Comment: 40-5 9 mg/dL, Acceptable>59 mg/dL, High: Negative risk factor for coronary heart disease<40 mg/dL, Low: Positive risk factor for coronary heart disease Performed By: #### L IPNF, 26139-7, 54172-9, 24182-5, TSHRF ####[facility]ORATORYCLIA [id number] [address] LDL CHOLESTEROL CALCULATED, NF 48 mg/dL Normal <100 [facility] Comment on above: Order Comment: Franchesca estrada Type: BLOOD SPECIMENOrdering Facility: [facility] Address: [address] [place] [address] Result Comment: <100 mg/dL, Optimal 100-129 mg/dL, Near optimal/above optimal 130-159 mg/dL, Borderline high 160-189 mg/dL, High>189 mg/dL, Very highSecondary prevention optimal LDL Cholesterol levels are recommended to be <70 mg/dLLDL cholesterol is calculated using the Newberry-NIH equation. Performed By: #### L IPNF, 72746-2, 74922-5, 96358-6, TSHRF ####[facility]ORATORYCLIA [id number] [address] LDL/HDL RATIO, NF 1.30 mg/dL Normal <2.54 [facility] Comment on above: Order Comment: Girishchioma estrada Type: BLOOD SPECIMENOrdering Facility: [facility] Address: [address] [place] [address] Result Comment: Sol hewitt:1. National Cholesterol Education Program ATP III Guideline At-A-Glance Quick Desk Reference: National Heart, Lung, and Blood Drake. National Institutes of Health. 2001: NIH Publication No. 01-3305.2. An International Atherosclerosis Society position paper: global recommendations for the management of dyslipidemia: executive summary, Atherosclerosis. 2014: 232(2):410-413. Performed By: #### L IPNF, 81117-0, 43626-1, 82452-2, TSHRF ####[facility]ORATORYCLIA [id number] [address] NON HDL CHOL, NF 70 mg/dL Normal <130 [facility] Comment on above: Order Comment: Franchesca sean Type: BLOOD SPECIMENOrdering Facility: [facility] Address: [address] [place] [address] Result Comment: <130 mg/dL, Optimal 130-159 mg/dL, Near optimal/above optimal 160-189 mg/dL, Borderline high 190-219 mg/dL, High>219 mg/dL, Very highSecondary prevention optimal non HDL Cholesterol levels are recommended to be <100 mg/dL Performed By: #### L IPNF, 21500-6, 70938-5, 10463-2, TSHRF ####[facility]ORATORYCLIA [id number] [address] T CHOL/HDL RATIO NF 2.89 mg/dL Normal <5.10 [facility] Comment on above: Order Comment: Franchesca estrada Type: BLOOD SPECIMENOrdering Facility: [facility] Address: [address] [place] [address] Performed By: #### L IPNF, 01744-0, 45325-2, 92362-1, TSHRF ####[facility]ORATORYCLIA [id number] [address] [facility] TRIGLYCERIDES, NF 123 mg/dL Normal <150 [facility] Comment on above: Order Comment: Speci men Type: BLOOD SPECIMENOrdering Facility: [facility] Address: [address] [place] [address] Result Comment: <150 mg/dL, Normal 150-199 mg/dL, Borderline high 200-499 mg/dL, High>499 mg/dL, Very high Performed By: #### L IPNF, 42710-1, 62805-7, 93942-1, TSHRF ####[facility]ORATORYCLIA [id number] [address] [place] VLDL CHOLESTEROL, NF 17 mg/dL Normal <30 [facility] Comment on above: Order Comment: Speci men Type: BLOOD SPECIMENOrdering Facility: [facility] Address: [address] [place] [address] Performed By: #### L IPNF, 18864-3, , 07302-5, TSHRF ####[facility] LABORATORYCLIA [id number] [place] [address] [place] Magnesium [facility] Magnesium [Mass/Vol] 2.0 mg/dL Normal 1.7-2.3 [facility] Comment on above: Order Comment: Speci men Type: BLOOD SPECIMENOrdering Facility: [facility] Address: [address] [place] [address] Performed By: #### L IPNF, 19660-5, 41720-0, 36175-1, TSHRF ####[facility] LABORATORYCLIA [id number] [place] [address] [place] NT-proBNP SerPl-mCncon 12-11 Natriuretic peptide.B prohormone N-Terminal [Mass/Vol] 1593 pg/mL High <125 [facility] Comment on above: Order Comment: Speci men Type: BLOOD SPECIMENOrdering Facility: [facility] Address: [address] [place] [address] Performed By: #### L IPNF, 42224-2, 79120-1, 51417-5, TSHRF ####[facility]ORATORYCLIA [id number] [place] [address] [place] NUTRITIONon 12-11-2024 NUTRITION Normal [facility] Renal function 2000 panelon 12-11-2024 Albumin [Mass/Vol] 3.2 g/dL Low 3.9-4.9 [facility] Comment on above: Order Comment: Speci men Type: BLOOD SPECIMENOrdering Facility: [facility] Address: [address] [place] [address] Performed By: #### L IPNF, 05239-3, 41460-8, 92407-3, TSHRF ####[facility] LABORATORYCLIA [id number] [place] [address] [place] Anion gap [Moles/Vol] 10 mmol/L Normal 8-15 [facility] Comment on above: Order Comment: Speci men Type: BLOOD SPECIMENOrdering Facility: [facility] Address: [address] [place] [address] Performed By: #### L IPNF, 84708-0, 74634-7, 77360-9, TSHRF ####[facility]ORATORYCLIA [id number] [place] [address] [place] Calcium [Mass/Vol] 9.0 mg/dL Normal 8.5-10.2 [facility] Comment on above: Order Comment: Speci men Type: BLOOD SPECIMENOrdering Facility: [facility] Address: [address] [place] [address] Performed By: #### L IPNF, 46692-1, 62589-4, 99724-2, TSHRF ####[facility]ORATORYCLIA [id number] [place] [id number] [place] Chloride [Moles/Vol] 92 mmol/L Low 98-107 [facility] Comment on above: Order Comment: Speci men Type: BLOOD SPECIMENOrdering Facility: [facility] Address: [address] [place] [address] Performed By: #### L IPNF, 46159-1, 37233-3, 52457-5, TSHRF ####[facility] [id number] [place] [address] [place] CO2 [Moles/Vol] 27 mmol/L Normal 22-30 [facility] Comment on above: Order Comment: Speci men Type: BLOOD SPECIMENOrdering Facility: [facility] Address: [address] [place] [address] Performed By: #### L IPNF, 50348-4, , 18132-4, TSHRF ####[facility]ATORYCLIA [id number] [place] [address] [place] Creatinine [Mass/Vol] 1.49 mg/dL High 0.73-1.22 [facility] Comment on above: Order Comment: Speci men Type: BLOOD SPECIMENOrdering Facility: [facility] Address: [address] [place] [address] Performed By: #### L IPNF, 23030-5, , 82646-3, TSHRF ####[facility]ITALCLIA [id number] [place] [id number] [place] [facility] Creatinine and Glomerular filtration rate.predicted panel (S/P/Bld) 50 mL/min/1.73m??? Low >=60 [facility] Comment on above: Order Comment: Speci [facility] Type: BLOOD SPECIMENOrdering Facility: [facility] Address: [address] [place] [address] Result Comment: Marcela mated Glomerular Filtration Rate (eGFR) is calculated using the 2020 CKD-EPI creatinine equation. This equation utilizes serum creatinine, sex, and age as parameters. The creatinine assay has traceable calibration to isotope dilution-mass spectrometry. Refer to KDIGO guidelines for clinical interpretation. In patients with unstable renal function, e.g. those with acute kidney injury, the eGFR may not accurately reflect actual GFR. Performed By: #### L IPNF, 58088-0, 96752-4, 49589-9, TSHRF ####[facility]ATORYCLIA [id number] [place] [address] [place] Glucose [Mass/Vol] 95 mg/dL Normal 74-99 [facility] Comment on above: Order Comment: Speci men Type: BLOOD SPECIMENOrdering Facility: [facility] Address: [address] [place] [address] Result Comment: The [place] Diabetes Association (ADA) provides guidance for cutoff values for fasting glucose and random glucose. The ADA defines fasting as no caloric intake for at least 8 hours. Fasting plasma glucose results between 100 to 125 mg/dL indicate increased risk for diabetes (prediabetes).Fasting plasma glucose results greater than or equal to 126 mg/dL meet the criteria for diagnosis of diabetes. In the absence of unequivocal hyperglycemia, results should be confirmed by repeat testing. In a patient with classic symptoms of hyperglycemia or hyperglycemic crisis, random plasma glucose results greater than or equal to 200 mg/dL meet the criteria for diagnosis of diabetes.Reference: Standards of Medical Care in Diabetes 2016, [place] Diabetes Association. Diabetes Care. 2016.39(Suppl 1). Performed By: #### L IPNF, 55698-4, 91618-5, 34965-3, TSHRF ####[facility] LABORATORYCLIA [id number] [place] [address] [place] Phosphate [Mass/Vol] 3.4 mg/dL Normal 2.7-4.8 [facility] Comment on above: Order Comment: Franchesca estrada Type: BLOOD SPECIMENOrdering Facility: [facility] Address: [address] [place] [address] Performed By: #### L IPNF, 37199-4, , 88485-5, TSHRF ####[facility]ORATORYCLIA [id number] [place] [address] [place] Potassium [Moles/Vol] 3.7 mmol/L Normal 3.7-5.1 [facility] Comment on above: Order Comment: Girishi men Type: BLOOD SPECIMENOrdering Facility: [facility] Address: [address] [place] [address] Performed By: #### L IPNF, 20031-0, 62920-9, 28946-5, TSHRF ####[facility]ATORYCLIA [id number] [address] [place] [facility] Sodium [Moles/Vol] 129 mmol/L Low 136-144 [facility] Comment on above: Order Comment: Speci men Type: BLOOD SPECIMENOrdering Facility: [facility] Address: [address] [place] [address] Performed By: #### L IPNF, 27965-6, 49114-9, 51484-0, TSHRF ####[facility]ORATORYCLIA [id number] [address] Urea nitrogen [Mass/Vol] 28 mg/dL High 9-24 [facility] Comment on above: Order Comment: Speci men Type: BLOOD SPECIMENOrdering Facility: [facility] Address: [address] [place] [address] Performed By: #### L IPNF, 48128-3, 25830-2, 45877-7, TSHRF ####[facility]ORATORYCLIA [id number] [address] OF [facility] THERAPY NTon 12-11-2024 THERAPY NT Normal [facility] THERAPY NT Normal [facility] TSH W/REFLEX FT4on 5 TSH Qn 3.060 m[IU]/L Normal 0.270-4.200 [facility] Comment on above: Order Comment: Speci men Type: BLOOD SPECIMENOrdering Facility: [facility] Address: [address] [place] [address] Performed By: #### L IPNF, 83326-8, 59228-4, 42671-3, TSHRF ####[facility]ATORYCLIA [id number] [address] [place] CBC panel Auto (Bld)on 12-10 Erythrocyte distribution width (RBC) [Ratio] 19.0 % High 11.5-15.0 [facility] Comment on above: Order Comment: Speci men Type: BLOOD SPECIMENOrdering Facility: [facility] Address: [address] [place] [address] Performed By: #### 5 8410-2 ####[facility]ATORYCLIA [id number] [address] Hematocrit (Bld) [Volume fraction] 24.1 % Low 39.0-51.0 [facility] Comment on above: Order Comment: Speci men Type: BLOOD SPECIMENOrdering Facility: [facility] Address: [address] [place] [address] Performed By: #### 5 8410-2 ####[facility]ATORYCLIA [id number] [address] Hemoglobin (Bld) [Mass/Vol] 7.9 g/dL Low 13.0-17.0 [facility] Comment on above: Order Comment: Speci men Type: BLOOD SPECIMENOrdering Facility: [facility] Address: [address] [place] [address] Performed By: #### 5 8410-2 ####[facility]ATORYCLIA [id number] [address] MCH (RBC) [Entitic mass] 29.8 pg Normal 26.0-34.0 [facility] Comment on above: Order Comment: Speci men Type: BLOOD SPECIMENOrdering Facility: [facility] Address: [address] [place] [address] Performed By: #### 5 8410-2 ####[facility]ATORYCLIA [id number] [address] [place] MCHC (RBC) [Mass/Vol] 32.8 g/dL Normal 30.5-36.0 [facility] Comment on above: Order Comment: Speci men Type: BLOOD SPECIMENOrdering Facility: [facility] Address: [address] [place] [address] Performed By: #### 5 8410-2 ####[facility]ATORYCLIA [id number] [address] MCV (RBC) [Entitic vol] 90.9 fL Normal 80.0-100.0 [facility] Comment on above: Order Comment: Speci men Type: BLOOD SPECIMENOrdering Facility: [facility] Address: [address] [place] [address] Performed By: #### 5 8410-2 ####[facility]ATORYCLIA [id number] [address] [place] Nucleated RBC (Bld) [#/Vol] 10*3/uL Normal <0.01 [facility] Comment on above: Order Comment: Speci men Type: BLOOD SPECIMENOrdering Facility: [facility] Address: [address] [place] [address] Performed By: #### 5 8410-2 ####[facility]ATORYCLIA [id number] [address] [place] Platelet mean volume (Bld) [Entitic vol] 9.3 fL Normal 9.0-12.7 [facility] Comment on above: Order Comment: Speci men Type: BLOOD SPECIMENOrdering Facility: [facility] Address: [address] [place] [address] Performed By: #### 5 8410-2 ####[facility]ORYCLIA [id number] [address] [place] Platelets (Bld) [#/Vol] 511 10*3/uL High 150-400 [facility] Comment on above: Order Comment: Speci men Type: BLOOD SPECIMENOrdering Facility: [facility] Address: [address] [place] [address] Performed By: #### 5 8410-2 ####[facility]ATORYCLIA [id number] [address] [place] RBC (Bld) [#/Vol] 2.65 10*6/uL Low 4.20-6.00 [facility] Comment on above: Order Comment: Speci men Type: BLOOD SPECIMENOrdering Facility: [facility] Address: [address] [place] [address] Performed By: #### 5 8410-2 ####[facility]ATORYCLIA [id number] [address] [place] WBC (Bld) [#/Vol] 14.75 10*3/uL High 3.70-11.00 [facility] Comment on above: Order Comment: Speci men Type: BLOOD SPECIMENOrdering Facility: [facility] Address: [address] [place] [address] Performed By: #### 5 8410-2 ####[facility]ATORYCLIA [id number] [place] [address] [place] CONSULTon 12-10-2024 CONSULT Normal [facility] Comprehensive metabolic 2000 panelon 12-10-2024 Albumin [Mass/Vol] 3.2 g/dL Low 3.9-4.9 [facility] Comment on above: Order Comment: Speci men Type: BLOOD SPECIMENOrdering Facility: [facility] Address: [address] [place] [address] Performed By: #### 2 4323-8, 69654-2, 2777-1 ####[facility]ATORYCLIA [id number] [address] STATES OF [facility] ALP [Catalytic activity/Vol] 144 U/L High 38-113 [facility] Comment on above: Order Comment: Speci men Type: BLOOD SPECIMENOrdering Facility: [facility] Address: [address] [place] [address] Performed By: #### 2 4323-8, 83539-7, 2777-1 ####[facility]ATORYCLIA [id number] [place] [address] [place] ALT With P-5'-P [Catalytic activity/Vol] 29 U/L Normal 10-54 [facility] Comment on above: Order Comment: Speci men Type: BLOOD SPECIMENOrdering Facility: [facility] Address: [address] [place] [address] Performed By: #### 2 4323-8, 87946-1, 2777-1 ####[facility]ORYCLIA [id number] [address] [place] Anion gap [Moles/Vol] 11 mmol/L Normal 8-15 [facility] Comment on above: Order Comment: Speci men Type: BLOOD SPECIMENOrdering Facility: [facility] Address: [address] [place] [address] Performed By: #### 2 4323-8, 37814-4, 2777-1 ####[facility]ORYCLIA [id number] [place] [address] [place] AST With P-5'-P [Catalytic activity/Vol] 33 U/L Normal 14-40 [facility] [facility] Comment on above: Order Comment: Speci men Type: BLOOD SPECIMENOrdering Facility: [facility] Address: [address] [place] [address] Performed By: #### 2 4323-8, 02299-1, 2777-1 ####[facility]ATORYCLIA [id number] [place] [address] [place] Bilirubin [Mass/Vol] 1.1 mg/dL Normal 0.2-1.3 [facility] Comment on above: Order Comment: Speci men Type: BLOOD SPECIMENOrdering Facility: [facility] Address: [address] [place] [address] Performed By: #### 2 4323-8, 85103-7, 2777 ####[facility]ORATORYCLIA [id number] [place] [address] [place] Calcium [Mass/Vol] 8.8 mg/dL Normal 8.5-10.2 [facility] Comment on above: Order Comment: Speci men Type: BLOOD SPECIMENOrdering Facility: [facility] Address: [address] [place] [address] Performed By: #### 2 4323-8, 27659-0, 2777-1 ####[facility]ORATORYCLIA [id number] [place] [address] [place] Chloride [Moles/Vol] 92 mmol/L Low 98-107 [facility] Comment on above: Order Comment: Speci men Type: BLOOD SPECIMENOrdering Facility: [facility] Address: [address] [place] [address] Performed By: #### 2 4323-8, 69399-5, 2777-1 ####[facility]ORATORYCLIA [id number] [place] [address] [place] CO2 [Moles/Vol] 29 mmol/L Normal 22-30 [facility] Comment on above: Order Comment: Speci men Type: BLOOD SPECIMENOrdering Facility: [facility] Address: [address] [place] [address] Performed By: #### 2 4323-8, 52916-7, 27712-29 ####[facility]ITAL[facility] [id number] [place] [address] [place] Creatinine [Mass/Vol] 1.62 mg/dL High 0.73-1.22 [facility] Comment on above: Order Comment: Speci men Type: BLOOD SPECIMENOrdering Facility: [facility] Address: [address] [place] [address] Performed By: #### 2 4323-8, 72607-2, 27712-29 ####[facility] [id number] [address] Creatinine and Glomerular filtration rate.predicted panel (S/P/Bld) 46 mL/min/1.73m??? Low >=60 [facility] Comment on above: Order Comment: Speci men Type: BLOOD SPECIMENOrdering Facility: [facility] Address: [address] [place] [address] Result Comment: Marcela mated Glomerular Filtration Rate (eGFR) is calculated using the 2020 CKD-EPI creatinine equation. This equation utilizes serum creatinine, sex, and age as parameters. The creatinine assay has traceable calibration to isotope dilution-mass spectrometry. Refer to KDIGO guidelines for clinical interpretation. In patients with unstable renal function, e.g. those with acute kidney injury, the eGFR may not accurately reflect actual GFR. Performed By: #### 2 4323-8, 79456-3, 2777-1 ####[facility]ATORYCLIA [id number] [place] [address] [place] Glucose [Mass/Vol] 112 mg/dL High 74-99 [facility] Comment on above: Order Comment: Franchesca estrada Type: BLOOD SPECIMENOrdering Facility: [facility] Address: [address] [place] [address] Result Comment: The [place] Diabetes Association (ADA) provides guidance for cutoff values for fasting glucose and random glucose. The ADA defines fasting as no caloric intake for at least 8 hours. Fasting plasma glucose results between 100 to 125 mg/dL indicate increased risk for diabetes (prediabetes).Fasting plasma glucose results greater than or equal to 126 mg/dL meet the criteria for diagnosis of diabetes. In the absence of unequivocal hyperglycemia, results should be confirmed by repeat testing. In a patient with classic symptoms of hyperglycemia or hyperglycemic crisis, random plasma glucose results greater than or equal to 200 mg/dL meet the criteria for diagnosis of diabetes.Reference: Standards of Medical Care in Diabetes 2016, [place] [employer]. Diabetes Care. 2016.39(Suppl 1). Performed By: #### 2 4323-8, 73073-4, 2777-1 ####[facility]ATORYCLIA [id number] [place] [address] [place] Potassium [Moles/Vol] 3.5 mmol/L Low 3.7-5.1 [facility] Comment on above: Order Comment: Franchesca estrada Type: BLOOD SPECIMENOrdering Facility: [facility] Address: [address] [place] [address] Performed By: #### 2 4323-8, 30487-0, 2777-1 ####[facility]ATORYCLIA [id number] [place] [address] [place] Protein [Mass/Vol] 7.4 g/dL Normal 6.3-8.0 [facility] Comment on above: Order Comment: Franchesca estrada Type: BLOOD SPECIMENOrdering Facility: [facility] Address: [address] [place] [address] Performed By: #### 2 4323-8, 51753-7, 2777-1 ####[facility] LABORATORYCLIA [id number] [place] [id number] [place] Sodium [Moles/Vol] 132 mmol/L Low 136-144 [facility] Comment on above: Order Comment: Speci men Type: BLOOD SPECIMENOrdering Facility: [facility] Address: [address] [place], [place] [address] Performed By: #### 2 4323-8, 61321-7, 2777-1 ####[facility]ATORYCLIA [id number] [place] [address] [place] Urea nitrogen [Mass/Vol] 19 mg/dL Normal 9-24 [facility] Comment on above: Order Comment: Speci men Type: BLOOD SPECIMENOrdering Facility: [facility] Address: [address] [place], [place] [address] Performed By: #### 2 4323-8, 79008-4, 2777-1 ####[facility]ATORYCLIA [id number] [place] [id number] [place] Creatinine Unsp time (U) [Ma ss/Vol]on 12-10-2024 Creatinine (U) [Mass/Vol] 51.1 mg/dL Normal 46.8-314.5 [facility] Comment on above: Order Comment: Speci men Type: URINE SPECIMENOrdering Facility: [facility] Address: [address] [place] [address] Performed By: #### 3 5674-1, UUNR, 2695-5, 59265-2 ####[facility]ATORYCLIA [id number] [address] [place] ED NOTEon 12-10-2024 ED NOTE HNO ID: [id number] Author: STEVENSON JACKSON RN Service: Emergency Medicine Author Type: Registered Nurse Type: ED Notes Filed: 12/10/2024 08:40 Note Text: Breakfast tray to pt [facility] ED NOTE HNO ID: [id number] Author: MACHO PATTON RN Service: ? Author Type: Registered Nurse Type: ED Notes Filed: 12/10/2024 07:14 Note Text: Report given to Reina MARIN [facility] ED NOTE HNO ID: [id number] Author: MACHO PATTON RN Service: ? Author Type: Registered Nurse Type: ED Notes Filed: 12/10/2024 06:30 Note Text: MICU team to reevaluate pt for downgrade to medical. MICU RN's will not accept pt at this time. Normal [facility] ED NOTE Normal [facility] ED NOTE HNO ID: [id number] Author: MACHO PATTON, RN Service: ? Author Type: Registered Nurse Type: ED Notes Filed: 12/10/2024 05:15 Note Text: Trialling off of bipap at this time per Dr. Leda DALLAS. Normal [facility] ED NOTE HNO ID: [id number] Author: MACHO PATTON, TOMAS Service: ? Author Type: Registered Nurse Type: ED Notes Filed: 12/10/2024 02:53 Note Text: RN pulled from pt for critical care. Normal [facility] HISTORY PHYSICALon HISTORY PHYSICAL Normal [facility] Osmolality Uron 12-10-2024 Osmolality (U) [Osmolality] 280 mosm/kg Normal 50-1200 [facility] Comment on above: Order Comment: Speci men Type: URINE SPECIMENOrdering Facility: [facility] Address: [address] [place] [address] Performed By: #### 3 5674-1, UUNR, 2695-5, 76579-3 ####[facility]ORATORYCLIA [id number] [place] [address] [place] Phosphate SerPl-mCncon 12-10 Phosphate [Mass/Vol] 4.4 mg/dL Normal 2.7-4.8 [facility] Comment on above: Order Comment: Speci men Type: BLOOD SPECIMENOrdering Facility: [facility] Address: [address] [place] [address] Performed By: #### 2 4323-8, 25144-3, 2777-1 ####[facility]ATORYCLIA [id number] [place] [address] [place] Procalcitonin SerPl-mCncon 0 12-10-2024 Procalcitonin [Mass/Vol] 12.90 ng/mL High <0.09 [facility] Comment on above: Order Comment: Speci men Type: BLOOD SPECIMENOrdering Facility: [facility] Address: [address] [place] [address] Result Comment: For a guided interpretation of test results, please visit the Change in Procalcitonin Calculator, [email or web address]. Performed By: #### 2 4323-8, 94216-5, 2777-1 ####[facility]ATORYCLIA [id number] [place] [address] [place] Sodium ?Tm Ur-sCncon 025 Sodium Unsp time (U) [Moles/Vol] 21 mmol/L Normal 14-216 [facility] Comment on above: Order Comment: Speci men Type: URINE SPECIMENOrdering Facility: [facility] Address: [address] [place] [address] Performed By: #### 3 5674-1, UUNR, 2694-5, 10512-3 ####[facility]ATORYCLIA [id number] [place] [address] [place] UREA NITROGEN, RANDOM URINEo n 12-10-2024 UREA NITROGEN,UR,RAN 366 mg/dL Normal 140-1500 [facility] Comment on above: Order Comment: Speci men Type: URINE SPECIMENOrdering Facility: [facility] Address: [address] [place] [address] Performed By: #### 3 5674-1, UUNR, 2694-5, 14257-3 ####[facility]ATORYCLIA [id number] [place] [address] [place] US KIDNEY/BLADDERon 12-11-19 25 US KIDNEY/BLADDER Normal [facility] Urinalysis complete panel (U )on 12-10-2024 Bacteria LM.HPF (Urine sed) [#/Area] Few Abnormal None Seen [facility] Comment on above: Order Comment: Speci men Type: URINE SPECIMENOrdering Facility: [facility] Address: [address] [place] [address] Performed By: #### 2 4356-8 ####[facility]ATORYCLIA [id number] [place] [address] [place] Bilirubin Ql (U) Negative Normal Negative [facility] Comment on above: Order Comment: Speci men Type: URINE SPECIMENOrdering Facility: [facility] Address: [address] [place] [address] Performed By: #### 2 4356-8 ####[facility]ATORYCLIA [id number] [address] [place] Clarity (Unsp spec) Clear Normal Clear [facility] Comment on above: Order Comment: Speci men Type: URINE SPECIMENOrdering Facility: [facility] Address: [address] [place] [address] Performed By: #### 2 4356-8 ####[facility]ATORYCLIA [id number] [address] [place] [facility] Color (U) Yellow Normal yellow [facility] Comment on above: Order Comment: Speci men Type: URINE SPECIMENOrdering Facility: [facility] Address: [address] [place] [address] Performed By: #### 2 4356-8 ####[facility]ATORYCLIA [id number] [address] Epithelial cells LM.HPF (Urine sed) [#/Area] Few Abnormal None Seen [facility] Comment on above: Order Comment: Speci men Type: URINE SPECIMENOrdering Facility: [facility] Address: [address] [place] [address] Performed By: #### 2 4356-8 ####[facility]ATORYCLIA [id number] [address] [place] Glucose Test strip (U) [Mass/Vol] Negative Normal Trace, Negative [facility] Comment on above: Order Comment: Speci men Type: URINE SPECIMENOrdering Facility: [facility] Address: [address] [place] [address] Performed By: #### 2 4356-8 ####[facility]ATORYCLIA [id number] [place] [address] [place] Hemoglobin Ql (U) Trace Normal Negative, Trace [facility] Comment on above: Order Comment: Speci men Type: URINE SPECIMENOrdering Facility: [facility] Address: [address] [place] [address] Performed By: #### 2 4356-8 ####[facility]ATORYCLIA [id number] [place] [address] [place] Ketones Ql (U) Negative Normal Negative, Trace [facility] Comment on above: Order Comment: Speci men Type: URINE SPECIMENOrdering Facility: [facility] Address: [address] [place] [address] Performed By: #### 2 4356-8 ####[facility]ATORYCLIA [id number] [address] Leukocyte esterase Test strip Ql (U) Negative Normal Negative, 25 Yael/uL [facility] Comment on above: Order Comment: Speci men Type: URINE SPECIMENOrdering Facility: [facility] Address: [address] [place] [address] Performed By: #### 2 4356-8 ####[facility]ATORYCLIA [id number] [address] Nitrite Ql (U) Negative Normal Negative [facility] Comment on above: Order Comment: Speci men Type: URINE SPECIMENOrdering Facility: [facility] Address: [address] [place] [address] Performed By: #### 2 4356-8 ####[facility]ATORYCLIA [id number] [place] [address] [place] pH (U) 6.0 [pH] Normal 5.0-8.0 [facility] Comment on above: Order Comment: Speci men Type: URINE SPECIMENOrdering Facility: [facility] Address: [address] [place] [address] Performed By: #### 2 4356-8 ####[facility]ATORYCLIA [id number] [place] [address] [place] Protein (U) [Mass/Vol] Trace Normal Trace , Negative [facility] Comment on above: Order Comment: Speci men Type: URINE SPECIMENOrdering Facility: [facility] Address: [address] [place] [address] Performed By: #### 2 4356-8 ####[facility]ATORYCLIA [id number] [place] [address] [place] RBC LM.HPF (Urine sed) [#/Area] 0-3 /HPF Normal 0-3 /HPF [facility] Comment on above: Order Comment: Speci men Type: URINE SPECIMENOrdering Facility: [facility] Address: [address] [place] [address] Performed By: #### 2 4356-8 ####[facility]ITALCLIA [id number] [address] [place] Specific gravity (U) [Rel density] 1.012 Normal 1.005-1.030 [facility] Comment on above: Order Comment: Speci men Type: URINE SPECIMENOrdering Facility: [facility] Address: [address] [place] [address] Performed By: #### 2 4356-8 ####[facility]ATORYCLIA [id number] [address] [place] [facility] Urobilinogen Ql (U) Normal Normal Normal [facility] Comment on above: Order Comment: Speci men Type: URINE SPECIMENOrdering Facility: [facility] Address: [address] [place] [address] Performed By: #### 2 4356-8 ####[facility]ATORYCLIA [id number] [address] [place] WBC LM.HPF (Urine sed) [#/Area] 6-10 /HPF Abnormal 0-5 /HPF [facility] Comment on above: Order Comment: Speci men Type: URINE SPECIMENOrdering Facility: [facility] Address: [address] [place] [address] Performed By: #### 2 4356-8 ####[facility]ATORYCLIA [id number] [address] ABO AND RH ONLYon 12-09-2024 ABO B Normal [facility] Comment on above: Order Comment: Speci men Type: BLOOD SPECIMENOrdering Facility: [facility] Address: [address] [place] [address] Performed By: #### L [id number], ABORH, [id number], TRXN ####[facility]ANKCLIA [id number] [address] Rh Nom (Bld) Positive Normal [facility] Comment on above: Order Comment: Speci men Type: BLOOD SPECIMENOrdering Facility: [facility] Address: [address] [place] [address] Performed By: #### L [id number], ABORH, [id number], TRXN ####[facility] BANKCLIA [id number] [address] OF [facility] ALLIED HEALTHon 12-09-2024 ALLIED HEALTH Normal [facility] BLOOD BANK PLACEHOLDER, RAMOS SFUSION REACTION PATHOLOGY REPORTon 12-09-2024 BLOOD BANK REPORT, TRANSFUSION REACTION PATHOLOGY REPORT See Pathology Report Normal [facility] Comment on above: Order Comment: Speci men Type: BLOOD SPECIMENOrdering Facility: [facility] Address: [address] [place] [address] Performed By: #### L [id number], ABORH, [id number], TRXN ####[facility] BANKCLIA [id number] [address] OF [facility] TYPE AND SCREEN EXPIRATION 12/12/2024 23:59 Normal [facility] Comment on above: Order Comment: Speci men Type: BLOOD SPECIMENOrdering Facility: [facility] Address: [address] [place] [address] Performed By: #### L [id number], ABORH, [id number], TRXN ####[facility]LO[facility] BANKCLIA [id number] [place] [address] [place] [facility] BLOOD BANK REPORT, TRANSFUSI ON REACTION PATHOLOGY REPORTon 12-09-2024 PATHOLOGY INTERPRETATION Normal [facility] Comment on above: Order Comment: Speci men Type: BLOOD SPECIMENOrdering Facility: [facility] Address: [address], [place] [address] Result Comment: Leida palma details: The patient is a 69 year old male with PMH of stage IV lung adenocarcinoma and alcohol dependence who presented to [facility] ED on 12/09/2024 with complaints of worsening shortness of breath over the last few days. Workup was significant for acute on chronic anemia (Hgb 5.9 g/dL on admission) and left lung consolidation concerning for underlying cancer but also possible pneumonia. The transfusion workup at that time revealed no unexpected alloantibodies and the unit prepared for transfusion was crossmatch compatible. While undergoing blood transfusion, the patient developed chills, sudden onset of shortness of breath and was noted to be tachycardic and tachypneic, therefore the transfusion was stopped. Of note, the infusion rate per records was listed as 375 mL/hour. The findings were clinically concerning for possible transfusion associated circulatory overload (TACO).The patient was treated as acute hypoxemic respiratory failure and was placed on BiPAP as well as given IV Lasix 40 mg, once. Subsequent chest X-ray showed left lung consolidation and scattered right lung nodules as well as a cardiomediastinal silhouette that demonstrated mild cardiomegaly. The patient improved on Lasix and BiPAP overnight and was weaned to 4 L nasal cannula in the morning (12/10/2024). Of note, the patient did endorse bringing up mucous and coughing overnight. The patient currently is hemodynamically stable.Transfusion reaction evaluation showed the clerical check of the transfused unit is correct and there is no visible evidence of hemolysis in the post sample. A pre- and post-transfusion BNP is not available for review.Interpretation: Probable TACO.Conclusion: Slowing the rate of transfusion and/or concurrent diuretic treatment may alleviate future incidents of TACO. at 0945 EDT Performed By: #### L [id number] ####[facility] LABORATORYCLIA [id number] [place] [address] [place] Basic metabolic 2000 panelon 12-09-2024 Anion gap [Moles/Vol] 11 mmol/L Normal 8-15 [facility] Comment on above: Order Comment: Speci men Type: BLOOD SPECIMENOrdering Facility: [facility] Address: [address] [place] [address] Performed By: #### 1 9, 69845-0 ####[facility]ATORYCLIA [id number] [place] [address] [place] Calcium [Mass/Vol] 9.0 mg/dL Normal 8.5-10.2 [facility] Comment on above: Order Comment: Speci men Type: BLOOD SPECIMENOrdering Facility: [facility] Address: [address] [place] [address] Performed By: #### 1 9123-03, ####[facility]ATORYCLIA [id number] [place] [address] [place] Chloride [Moles/Vol] 93 mmol/L Low 98-107 [facility] Comment on above: Order Comment: Speci men Type: BLOOD SPECIMENOrdering Facility: [facility] Address: [address] [place] [address] Performed By: #### 1 9123-03, ####[facility]ORATORYCLIA [id number] [place] [address] [place] CO2 [Moles/Vol] 29 mmol/L Normal 22-30 [facility] Comment on above: Order Comment: Speci men Type: BLOOD SPECIMENOrdering Facility: [facility] Address: [address] [place] [address] Performed By: #### 1 9123-03, 95215-8 ####[facility]ATORYCLIA [id number] [place] [address] [place] Creatinine [Mass/Vol] 1.25 mg/dL High 0.73-1.22 [facility] Comment on above: Order Comment: Speci men Type: BLOOD SPECIMENOrdering Facility: [facility] Address: [address] [place] [address] Performed By: #### 1 9123-03, 03443-5 ####[facility]ATORYCLIA [id number] [place] [address] [place] Creatinine and Glomerular filtration rate.predicted panel (S/P/Bld) 62 mL/min/1.73m??? Normal >=60 [facility] Comment on above: Order Comment: Franchesca estrada Type: BLOOD SPECIMENOrdering Facility: [facility] Address: [address] [place] [address] Result Comment: Marcela mated Glomerular Filtration Rate (eGFR) is calculated using the 2020 CKD-EPI creatinine equation. This equation utilizes serum creatinine, sex, and age as parameters. The creatinine assay has traceable calibration to isotope dilution-mass spectrometry. Refer to KDIGO guidelines for clinical interpretation. In patients with unstable renal function, e.g. those with acute kidney injury, the eGFR may not accurately reflect actual GFR. Performed By: #### 1 9123-9, 34129-3 ####[facility] [id number] [place] [address] [place] Glucose [Mass/Vol] 100 mg/dL High 74-99 [facility] Comment on above: Order Comment: Franchesca estrada Type: BLOOD SPECIMENOrdering Facility: [facility] Address: [address] [place] [address] Result Comment: The [place] Diabetes [employer] (ADA) provides guidance for cutoff values for fasting glucose and random glucose. The ADA defines fasting as no caloric intake for at least 8 hours. Fasting plasma glucose results between 100 to 125 mg/dL indicate increased risk for diabetes (prediabetes).Fasting plasma glucose results greater than or equal to 126 mg/dL meet the criteria for diagnosis of diabetes. In the absence of unequivocal hyperglycemia, results should be confirmed by repeat testing. In a patient with classic symptoms of hyperglycemia or hyperglycemic crisis, random plasma glucose results greater than or equal to 200 mg/dL meet the criteria for diagnosis of diabetes.Reference: Standards of Medical Care in Diabetes 2016, [place] [employer]. Diabetes Care. 2016.39(Suppl 1). Performed By: #### 1 9123-9, 03892-9 ####[facility] LABORATORYCLIA [id number] [place] [id number] [place] Potassium [Moles/Vol] 4.1 mmol/L Normal 3.7-5.1 [facility] on [facility] Comment on above: Order Comment: Speci men Type: BLOOD SPECIMENOrdering Facility: [facility] Address: [address] [place] [address] Performed By: #### 1 9123-9, 44782-3 ####[facility]ATORYCLIA [id number] [address] [place] Sodium [Moles/Vol] 133 mmol/L Low 136-144 [facility] Comment on above: Order Comment: Speci men Type: BLOOD SPECIMENOrdering Facility: [facility] Address: [address] [place] [address] Performed By: #### 1 9123-9, 42589-2 ####[facility] [facility]ORYCLIA [id number] [address] [place] Urea nitrogen [Mass/Vol] 15 mg/dL Normal 9-24 [facility] Comment on above: Order Comment: Speci men Type: BLOOD SPECIMENOrdering Facility: [facility] Address: [address] [place] [address] Performed By: #### 1 9123-9, 11907-8 ####[facility] LABORATORYCLIA [id number] [address] [place] CBC W Auto Differential pane l (Bld)on 12-09-2024 Anisocytosis Ql (Bld) Present Normal Ak[facility] Comment on above: Order Comment: Speci men Type: BLOOD SPECIMENOrdering Facility: [facility] Address: [address] [place] [address] Performed By: #### 5 7021-8 ####[facility]ATORYCLIA [id number] [address] STATES OF [facility] Basophils (Bld) [#/Vol] 0.00 10*3/uL Normal <0.11 [facility] Comment on above: Order Comment: Speci men Type: BLOOD SPECIMENOrdering Facility: [facility] Address: [address] [place] [address] Performed By: #### 5 7021-8 ####[facility]ORYCLIA [id number] [address] Basophils/100 WBC (Bld) 0.0 % Normal A [facility] Comment on above: Order Comment: Speci men Type: BLOOD SPECIMENOrdering Facility: [facility] Address: [address] [place] [address] Performed By: #### 5 7021-8 ####[facility]ATORYCLIA [id number] [address] Differential cell count method Nom (Bld) Manual Normal [facility] Comment on above: Order Comment: Speci men Type: BLOOD SPECIMENOrdering Facility: [facility] Address: [address] [place] [address] Performed By: #### 5 7021-8 ####[facility] LABORATORYCLIA [id number] [address] STATES OF [facility] Eosinophils (Bld) [#/Vol] 0.00 10*3/uL Normal <0.46 [facility] Comment on above: Order Comment: Speci men Type: BLOOD SPECIMENOrdering Facility: [facility] Address: [address] [place] [address] Performed By: #### 5 7021-8 ####[facility]ORATORYCLIA [id number] [address] Eosinophils/100 WBC (Bld) 0.0 % Normal [facility] Comment on above: Order Comment: Speci men Type: BLOOD SPECIMENOrdering Facility: [facility] Address: [address] [place] [address] Performed By: #### 5 7021-8 ####[facility]ATORYCLIA [id number] [address] Erythrocyte distribution width (RBC) [Ratio] 20.2 % High 11.5-15.0 [facility] Comment on above: Order Comment: Speci men Type: BLOOD SPECIMENOrdering Facility: [facility] Address: [address] [place] [address] Performed By: #### 5 7021-8 ####[facility]ORATORYCLIA [id number] [address] STATES OF [facility] Hematocrit (Bld) [Volume fraction] 18.4 % Low 39.0-51.0 [facility] Comment on above: Order Comment: Speci men Type: BLOOD SPECIMENOrdering Facility: [facility] Address: [address] [place] [address] Performed By: #### 5 7021-8 ####[facility] LABORATORYCLIA [id number] [address] [place] Hemoglobin (Bld) [Mass/Vol] 5.9 g/dL Critically low 13.0-17.0 [facility] Comment on above: Order Comment: Speci men Type: BLOOD SPECIMENOrdering Facility: [facility] Address: [address] [place] [address] Result Comment: No c lot detected. Performed By: #### 5 7021-8 ####[facility]ATORYCLIA [id number] [address] [place] Lymphocytes (Bld) [#/Vol] 0.63 10*3/uL Low 1.00-4.00 [facility] Comment on above: Order Comment: Speci men Type: BLOOD SPECIMENOrdering Facility: [facility] Address: [address] [place] [address] Performed By: #### 5 7021-8 ####[facility]ATORYCLIA [id number] [address] [place] Lymphocytes/100 WBC (Bld) 6.0 % Normal [facility] Comment on above: Order Comment: Speci men Type: BLOOD SPECIMENOrdering Facility: [facility] Address: [address] [place] [address] Performed By: #### 5 7021-8 ####[facility]ATORYCLIA [id number] [address] [place] MCH (RBC) [Entitic mass] 29.9 pg Normal 26.0-34.0 [facility] Comment on above: Order Comment: Speci men Type: BLOOD SPECIMENOrdering Facility: [facility] Address: [address] [place] [address] Performed By: #### 5 7021-8 ####[facility]ATORYCLIA [id number] [address] STATES [facility] MCHC (RBC) [Mass/Vol] 32.1 g/dL Normal 30.5-36.0 [facility] Comment on above: Order Comment: Speci men Type: BLOOD SPECIMENOrdering Facility: [facility] Address: [address] [place] [address] Performed By: #### 5 7021-8 ####[facility]ATORYCLIA [id number] [address] MCV (RBC) [Entitic vol] 93.4 fL Normal 80.0-100.0 [facility] Comment on above: Order Comment: Speci men Type: BLOOD SPECIMENOrdering Facility: [facility] Address: [address] [place] [address] Performed By: #### 5 7021-8 ####[facility]ATORYCLIA [id number] [address] Metamyelocytes/100 WBC (Bld) 2.0 % Normal [facility] Comment on above: Order Comment: Speci men Type: BLOOD SPECIMENOrdering Facility: [facility] Address: [address] [place] [address] Performed By: #### 5 7021-8 ####[facility]ATORYCLIA [id number] [address] Monocytes (Bld) [#/Vol] 0.94 10*3/uL High <0.87 [facility] Comment on above: Order Comment: Speci men Type: BLOOD SPECIMENOrdering Facility: [facility] Address: [address] [place] [address] Performed By: #### 5 7021-8 ####[facility]ATORYCLIA [id number] [address] Monocytes/100 WBC (Bld) 9.0 % Normal A [facility] Comment on above: Order Comment: Speci men Type: BLOOD SPECIMENOrdering Facility: [facility] Address: [address] [place] [address] Performed By: #### 5 7021-8 ####[facility]ORATORYCLIA [id number] [address] [place] MYELO% 2.0 % Normal [facility] Comment on above: Order Comment: Speci men Type: BLOOD SPECIMENOrdering Facility: [facility] Address: [address] [place] [address] Performed By: #### 5 7021-8 ####[facility] LABORATORYCLIA [id number] [address] [place] Neutrophils (Bld) [#/Vol] 8.48 10*3/uL High 1.45-7.50 [facility] Comment on above: Order Comment: Speci men Type: BLOOD SPECIMENOrdering Facility: [facility] Address: [address] [place] [address] Performed By: #### 5 7021-8 ####[facility]ATORYCLIA [id number] [address] Neutrophils/100 WBC (Bld) 81.0 % Normal [facility] Comment on above: Order Comment: Speci men Type: BLOOD SPECIMENOrdering Facility: [facility] Address: [address] [place] [address] Performed By: #### 5 7021-8 ####[facility]ORATORYCLIA [id number] [address] [place] Nucleated RBC (Bld) [#/Vol] 10*3/uL Normal <0.01 [facility] Comment on above: Order Comment: Speci men Type: BLOOD SPECIMENOrdering Facility: [facility] Address: [address] [place] [address] Performed By: #### 5 7021-8 ####[facility]ORATORYCLIA [id number] [place] Nucleated RBC/100 WBC (Bld) [Ratio] 0.0 /100 WBC Normal [facility] Comment on above: Order Comment: Speci men Type: BLOOD SPECIMENOrdering Facility: [facility] Address: [address] [place] [address] Performed By: #### 5 7021-8 ####[facility]ATORYCLIA [id number] [place] [address] [place] Platelet mean volume (Bld) [Entitic vol] 9.4 fL Normal 9.0-12.7 [facility] Comment on above: Order Comment: Speci men Type: BLOOD SPECIMENOrdering Facility: [facility] Address: [address] [place] [address] Performed By: #### 5 7021-8 ####[facility]ATORYCLIA [id number] [address] [place] Platelets (Bld) [#/Vol] 568 10*3/uL High 150-400 [facility] Comment on above: Order Comment: Speci men Type: BLOOD SPECIMENOrdering Facility: [facility] Address: [address] [place] [address] Performed By: #### 5 7021-8 ####[facility]ATORYCLIA [id number] [address] [place] Platelets Estimate (Bld) [#/Vol] Increased Normal [facility] Comment on above: Order Comment: Speci men Type: BLOOD SPECIMENOrdering Facility: [facility] Address: [address] [place] [address] Performed By: #### 5 7021-8 ####[facility]ORATORYCLIA [id number] [address] Polychromasia LM Ql (Bld) Slight Normal [facility] Comment on above: Order Comment: Speci men Type: BLOOD SPECIMENOrdering Facility: [facility] Address: [address] [place] [address] Performed By: #### 5 7021-8 ####[facility]ATORYCLIA [id number] [address] RBC (Bld) [#/Vol] 1.97 10*6/uL Low 4.20-6.00 [facility] Comment on above: Order Comment: Speci men Type: BLOOD SPECIMENOrdering Facility: [facility] Address: [address] [place] [address] Performed By: #### 5 7021-8 ####[facility]ORATORYCLIA [id number] [address] RED CELL MORPH Reviewed: see result s of individual morphologies Normal [facility] Comment on above: Order Comment: Speci men Type: BLOOD SPECIMENOrdering Facility: [facility] Address: [address] [place] [address] Performed By: #### 5 7021-8 ####[facility] LABORATORYCLIA [id number] [address] OF [facility] WBC (Bld) [#/Vol] 10.47 10*3/uL Normal 3.70-11.00 [facility] Comment on above: Order Comment: Speci men Type: BLOOD SPECIMENOrdering Facility: [facility] Address: [address] [place] [address] Performed By: #### 5 7021-8 ####[facility]ATORYCLIA [id number] [address] CBC panel Auto (Bld)on 12-09 Erythrocyte distribution width (RBC) [Ratio] 18.6 % High 11.5-15.0 [facility] Comment on above: Order Comment: Speci men Type: BLOOD SPECIMENOrdering Facility: [facility] Address: [address] [place] [address] Performed By: #### 5 8410-2 ####[facility]ATORYCLIA [id number] [address] Hematocrit (Bld) [Volume fraction] 25.1 % Low 39.0-51.0 [facility] Comment on above: Order Comment: Speci men Type: BLOOD SPECIMENOrdering Facility: [facility] Address: [address] [place] [address] Performed By: #### 5 8410-2 ####[facility]ATORYCLIA [id number] [address] Hemoglobin (Bld) [Mass/Vol] 8.2 g/dL Low 13.0-17.0 [facility] Comment on above: Order Comment: Speci men Type: BLOOD SPECIMENOrdering Facility: [facility] Address: [address] [place] [address] Performed By: #### 5 8410-2 ####[facility]ATORYCLIA [id number] [address] OF [facility] MCH (RBC) [Entitic mass] 29.7 pg Normal 26.0-34.0 [facility] Comment on above: Order Comment: Speci men Type: BLOOD SPECIMENOrdering Facility: [facility] Address: [address] [place] [address] Performed By: #### 5 8410-2 ####[facility]ATORYCLIA [id number] [address] MCHC (RBC) [Mass/Vol] 32.7 g/dL Normal 30.5-36.0 [facility] Comment on above: Order Comment: Speci men Type: BLOOD SPECIMENOrdering Facility: [facility] Address: [address] [place] [address] Performed By: #### 5 8410-2 ####[facility]ATORYCLIA [id number] [address] STATES [facility] MCV (RBC) [Entitic vol] 90.9 fL Normal 80.0-100.0 [facility] Comment on above: Order Comment: Speci men Type: BLOOD SPECIMENOrdering Facility: [facility] Address: [address] [place] [address] Performed By: #### 5 8410-2 ####[facility]ORATORYCLIA [id number] [place] [address] [place] Nucleated RBC (Bld) [#/Vol] 10*3/uL Normal <0.01 [facility] Comment on above: Order Comment: Speci men Type: BLOOD SPECIMENOrdering Facility: [facility] Address: [address] [place] [address] Performed By: #### 5 8410-2 ####[facility]ATORYCLIA [id number] [place] [address] [place] Platelet mean volume (Bld) [Entitic vol] 9.1 fL Normal 9.0-12.7 [facility] Comment on above: Order Comment: Speci men Type: BLOOD SPECIMENOrdering Facility: [facility] Address: [address] [place] [address] Performed By: #### 5 8410-2 ####[facility]ATORYCLIA [id number] [address] [place] Platelets (Bld) [#/Vol] 505 10*3/uL High 150-400 [facility] Comment on above: Order Comment: Speci men Type: BLOOD SPECIMENOrdering Facility: [facility] Address: [address] [place] [address] Performed By: #### 5 8410-2 ####[facility]ATORYCLIA [id number] [address] [place] RBC (Bld) [#/Vol] 2.76 10*6/uL Low 4.20-6.00 [facility] Comment on above: Order Comment: Speci men Type: BLOOD SPECIMENOrdering Facility: [facility] Address: [address] [place] [address] Performed By: #### 5 8410-2 ####[facility]ATORYCLIA [id number] [address] [place] WBC (Bld) [#/Vol] 14.89 10*3/uL High 3.70-11.00 [facility] Comment on above: Order Comment: Speci men Type: BLOOD SPECIMENOrdering Facility: [facility] Address: [address] [place] [address] Performed By: #### 5 8410-2 ####[facility]ATORYCLIA [id number] [address] CONFIR[place] BLOOD TYPEon 025 ABO B [facility] Comment on above: Order Comment: Speci men Type: BLOOD SPECIMENOrdering Facility: [facility] Address: [address] [place] [address] Performed By: #### C ONABO ####[facility] BANKCLIA [id number] [address] Rh Nom (Bld) Positive [facility] Comment on above: Order Comment: Speci men Type: BLOOD SPECIMENOrdering Facility: [facility] Address: [address] [place] [address] Performed By: #### C ONABO ####[facility] BLO[facility] BANKCLIA [id number] [address] CTA CHEST (NON GATED) W IVCO N PEon 12-09-2024 CTA CHEST (NON GATED) W IVCON PE Normal [facility] ECG COMPLETEon 12-09-2024 ECG COMPLETE Normal [facility] ED NOTEon 12-09-2024 ED NOTE [facility] ED NOTE HNO ID: [id number] Author: MACHO PATTON, TOMAS Service: ? Author Type: Registered Nurse Type: ED Notes Filed: 12/09/2024 23:18 Note Text: Pt replaced on bipap by RT upon arrival to ED-3 [facility] ED NOTE HNO ID: [id number] Author: ASHVIN FELIX, TOMAS Service: Emergency Medicine Author Type: Registered Nurse Type: ED Notes Filed: 12/09/2024 23:15 Note Text: Pt moved to room 3, report given to TOMAS Isidro. [facility] ED NOTE HNO ID: [id number] Author: RADHA BEAL RN Service: ? Author Type: Registered Nurse Type: ED Notes Filed: 12/09/2024 23:14 Note Text: Bed: 03-ED Expected date: Expected time: Means of arrival: Comments: RM 444 Normal [facility] ED NOTE HNO ID: [id number] Author: ASHVIN FELIX, RN Service: Emergency Medicine Author Type: Registered Nurse Type: ED Notes Filed: 12/09/2024 19:46 Note Text: RT notified that pt will need BiPAP. Normal [facility] ED NOTE HNO ID: [id number] Author: ASHVIN FELIX, RN Service: Emergency Medicine Author Type: Registered Nurse Type: ED Notes Filed: 12/09/2024 19:45 Note Text: Pt with increased work of breathing. Pt placed on NRB at this time. Normal [facility] ED NOTE Normal [facility] ED NOTE HNO ID: [id number] Author: ASHVIN FELIX, TOMAS Service: Emergency Medicine Author Type: Registered Nurse Type: ED Notes Filed: 12/09/2024 18:03 Note Text: Ok for pt to eat and drink per Dr. Contreras. [facility] ED NOTE HNO ID: [id number] Author: ASHVIN FELIX, TOMAS Service: Emergency Medicine Author Type: Registered Nurse Type: ED Notes Filed: 12/09/2024 15:11 Note Text: CT notified pt ready at this time. Normal [facility] ED NOTE HNO ID: [id number] Author: ASHVIN FELIX, TOMAS Service: Emergency Medicine Author Type: Registered Nurse Type: ED Notes Filed: 12/09/2024 14:10 Note Text: Pt placed on media monitor with blood pressure and continuous pulse ox. Normal [facility] ED NOTE Normal [facility] ED PROGRESS NOTE (PROVIDER)o n 12-09-2024 ED PROGRESS NOTE (PROVIDER) [facility] ED PROV NOTEon 12-09-2024 ED PROV NOTE Normal [facility] Gas and Carbon monoxide pane l (BldV)on 12-09-2024 Base excess Calc (BldV) [Moles/Vol] 2 mmol/L Normal 0-2 [facility] Comment on above: Order Comment: Speci men Type: VENOUS BLOOD SPECIMENOrdering Facility: [facility] Address: [address] [place] [address] Performed By: #### 2 4344-4 ####[facility] LABORATORYCLIA [id number] [address] Body temperature 98.6 [degF] Normal [facility] Comment on above: Order Comment: Speci men Type: VENOUS BLOOD SPECIMENOrdering Facility: [facility] Address: [address] [place] [address] Performed By: #### 2 4344-4 ####[facility] LABORATORYCLIA [id number] [address] Calcium.ionized (BldV) [Mass/Vol] 1.03 mmol/L Low 1.08-1.30 [facility] Comment on above: Order Comment: Speci men Type: VENOUS BLOOD SPECIMENOrdering Facility: [facility] Address: [address] [place] [address] Performed By: #### 2 4344-4 ####[facility] LABORATORYCLIA [id number] [address] Calcium.ionized adjusted to pH 7.4 (BldA) [Moles/Vol] 1.06 mmol/L Low 1.08-1.30 [facility] Comment on above: Order Comment: Speci men Type: VENOUS BLOOD SPECIMENOrdering Facility: [facility] Address: [address] [place] [address] Performed By: #### 2 4344-4 ####[facility] LABORATORYCLIA [id number] [address] [place] Carboxyhemoglobin (BldV) [Mass fraction] 2.9 % High 0.0-2.0 [facility] Comment on above: Order Comment: Speci men Type: VENOUS BLOOD SPECIMENOrdering Facility: [facility] Address: [address] [place] [address] Result Comment: Carb oxyhemoglobin Reference Range for Smokers: 2.0-8.0% Performed By: #### 2 4344-4 ####[facility] LABORATORYCLIA [id number] [address] [place] Chloride [Moles/Vol] 101 mmol/L Normal 97-105 [facility] Comment on above: Order Comment: Speci men Type: VENOUS BLOOD SPECIMENOrdering Facility: [facility] Address: [address] [place] [address] Performed By: #### 2 4344-4 ####[facility] LABORATORYCLIA [id number] [place] [address] [place] CO2 (BldV) [Partial pressure] 36 mm[Hg] Low 42-55 [facility] Comment on above: Order Comment: Speci men Type: VENOUS BLOOD SPECIMENOrdering Facility: [facility] Address: [address] [place] [address] Performed By: #### 2 4344-4 ####[facility] LABORATORYCLIA [id number] [address] [place] Glucose [Mass/Vol] 95 mg/dL Normal 60-105 [facility] Comment on above: Order Comment: Speci men Type: VENOUS BLOOD SPECIMENOrdering Facility: [facility] Address: [address] [place] [address] Performed By: #### 2 4344-4 ####[facility] LABORATORYCLIA [id number] [place] [address] [place] HCO3 (Bld) [Moles/Vol] 25 mmol/L Normal 24-28 [facility] Comment on above: Order Comment: Speci men Type: VENOUS BLOOD SPECIMENOrdering Facility: [facility] Address: [address] [place] [address] Performed By: #### 2 4344-4 ####[facility] LABORATORYCLIA [id number] [address] [place] Hematocrit (Bld) [Volume fraction] 24.5 % Low 39.0-51.0 [facility] Comment on above: Order Comment: Speci men Type: VENOUS BLOOD SPECIMENOrdering Facility: [facility] Address: [address] [place] [address] Performed By: #### 2 4344-4 ####[facility] LABORATORYCLIA [id number] [address] [place] Hemoglobin (Bld) [Mass/Vol] 7.9 g/dL Low 13.0-17.0 [facility] Comment on above: Order Comment: Speci men Type: VENOUS BLOOD SPECIMENOrdering Facility: [facility] Address: [address] [place] [address] Performed By: #### 2 4344-4 ####[facility] LABORATORYCLIA [id number] [place] [address] [place] Lactate [Moles/Vol] 1.1 mmol/L Normal 0.5-2.2 [facility] Comment on above: Order Comment: Speci men Type: VENOUS BLOOD SPECIMENOrdering Facility: [facility] Address: [facility] [place] [address] Performed By: #### 2 4344-4 ####[facility] LABORATORYCLIA [id number] [address] [place] Methemoglobin (Bld) [Mass fraction] 0.8 % Normal 0.0-1.5 [facility] Comment on above: Order Comment: Speci men Type: VENOUS BLOOD SPECIMENOrdering Facility: [facility] Address: [address] [place] [address] Performed By: #### 2 4344-4 ####[facility] LABORATORYCLIA [id number] [address] [place] O2 THERAPY Positive Normal [facility] Comment on above: Order Comment: Speci men Type: VENOUS BLOOD SPECIMENOrdering Facility: [facility] Address: [address] [place] [address] Performed By: #### 2 4344-4 ####[facility]ORATORYCLIA [id number] [address] [place] Oxygen (BldV) [Partial pressure] 171 mm[Hg] High 35-45 [facility] Comment on above: Order Comment: Speci men Type: VENOUS BLOOD SPECIMENOrdering Facility: [facility] Address: [address] [place] [address] Performed By: #### 2 4344-4 ####[facility]ORATORYCLIA [id number] [place] [address] [place] Oxygen saturation in Venous blood 99 % High 60-85 [facility] Comment on above: Order Comment: Speci men Type: VENOUS BLOOD SPECIMENOrdering Facility: [facility] Address: [address] [place] [address] Performed By: #### 2 4344-4 ####[facility] LABORATORYCLIA [id number] [place] [address] [place] Oxyhemoglobin (BldV) [Mass fraction] 96 % High 60-85 [facility] Comment on above: Order Comment: Speci men Type: VENOUS BLOOD SPECIMENOrdering Facility: [facility] Address: [address] [place] [address] Performed By: #### 2 4344-4 ####[facility] LABORATORYCLIA [id number] [place] [address] [place] pH (BldV) 7.47 [pH] High 7.32-7.42 [facility] Comment on above: Order Comment: Speci men Type: VENOUS BLOOD SPECIMENOrdering Facility: [facility] Address: [address] [place] [address] Performed By: #### 2 4344-4 ####[facility] LABORATORYCLIA [id number] [place] [address] [place] Potassium [Moles/Vol] 3.4 mmol/L Low 3.5-5.0 [facility] Comment on above: Order Comment: Speci men Type: VENOUS BLOOD SPECIMENOrdering Facility: [facility] Address: [address] [place] [address] Performed By: #### 2 4344-4 ####[facility] LABORATORYCLIA [id number] [place] [address] [place] Sodium [Moles/Vol] 135 mmol/L Low 136-144 [facility] Comment on above: Order Comment: Speci men Type: VENOUS BLOOD SPECIMENOrdering Facility: [facility] Address: [address] [place] [address] Performed By: #### 2 4344-4 ####[facility] LABORATORYCLIA [id number] [place] [id number] [facility] HIGH SENSITIVITY TROPONIN T (INITIAL)on 12-09-2024 Troponin T.cardiac High sensitivity method [Mass/Vol] 25 ng/L High <12 [facility] Comment on above: Order Comment: Speci men Type: BLOOD SPECIMENOrdering Facility: [facility] Address: [address] [place] [address] Performed By: #### L [id number] ####[facility] LABORATORYCLIA [id number] [address] HIGH SENSITIVITY TROPONIN T (SECOND)on 12-09-2024 Troponin T.cardiac High sensitivity method [Mass/Vol] 21 ng/L High <12 [facility] Comment on above: Order Comment: Speci men Type: BLOOD SPECIMENOrdering Facility: [facility] Address: [address] [place] [address] Performed By: #### L [id number] ####[facility] LABORATORYCLIA [id number] [address] HIGH SENSITIVITY TROPONIN T (THIRD) 3 HRS AFTER INITIALon 12-09-2024 Troponin T.cardiac High sensitivity method [Mass/Vol] 22 ng/L High <12 [facility] Comment on above: Order Comment: Speci men Type: BLOOD SPECIMENOrdering Facility: [facility] Address: [address] [place] [address] Performed By: #### L [id number] ####[facility] LABORATORYCLIA [id number] [place] [id number] [facility] HISTORY PHYSICALon HISTORY PHYSICAL Normal [facility] HISTORY PHYSICAL Normal [facility] Legionella Ag Ur Qlon 2024 Legionella sp Ag Ql (U) Negative Normal Negative A [facility] Comment on above: Order Comment: Speci men Type: URINE SPECIMENOrdering Facility: [facility] Address: [address] [place] [address] Result Comment: Pres umptive negative for L. pneumophila serogroup 1 antigen in urine, suggesting no recent or current infection. Infection due to Legionella cannot be ruled out since other serogroups and species may cause disease, antigen may not be present in urine in early infection, and the level of antigen present in the urine may be below the detection limit of the test. Performed By: #### 3 2781-7 ####[facility] LABORATORYCLIA [id number] [place] [address] [place] Magnesium SerPl-mCncon 12-09 Magnesium [Mass/Vol] 1.7 mg/dL Normal 1.7-2.3 [facility] Comment on above: Order Comment: Speci men Type: BLOOD SPECIMENOrdering Facility: [facility] Address: [address] [place] [address] Performed By: #### 1 9123-9, 74471-9 ####[facility] LAB[facility]ATORYCLIA [id number] [place] [address] [place] STREPTOCOCCUS PNEUMONIAE ANT IGEN URINEon 12-09-2024 STREPTOCOCCUS PNEUMONIAE ANTIGEN URINE Normal [facility] Comment on above: Performed By: #### S PNAG ####[facility] LABORATORYCLIA [id number] [place] [address] [place] TOXICOLOGY SCREEN, ROUTINE U RINEon 12-09-2024 Amphetamines Confirm (U) [Mass/Vol] Positive Abnormal Negative [facility] Comment on above: Order Comment: Speci men Type: URINE SPECIMENOrdering Facility: [facility] Address: [address] [place] [address] Result Comment: Cuto ff threshold at 1000 ng/mL. Performed By: #### U TOX2 ####[facility] LABORATORYCLIA [id number] [place] [address] [place] BARBITURATES, URINE Negative Normal Negative [facility] Comment on above: Order Comment: Speci men Type: URINE SPECIMENOrdering Facility: [facility] Address: [address] [place] [address] Result Comment: Cuto ff threshold at 200 ng/mL. Performed By: #### U TOX2 ####[facility] LABORATORYCLIA [id number] [address] [place] BENZODIAZEPINES, UR Negative Normal Negative [facility] Comment on above: Order Comment: Speci men Type: URINE SPECIMENOrdering Facility: [facility] Address: [address] [place] [address] Result Comment: Cuto ff threshold at 200 ng/mL. Performed By: #### U TOX2 ####[facility] LABORATORYCLIA [id number] [address] OF [facility] Cannabinoids Screen Ql (U) Negative Normal Negative [facility] Comment on above: Order Comment: Speci men Type: URINE SPECIMENOrdering Facility: [facility] Address: [address] [place] [address] Result Comment: Cuto ff threshold at 50 ng/mL. Performed By: #### U TOX2 ####[facility]ORATORYCLIA [id number] [address] [place] Cocaine Ql (U) Negative Normal Negative [facility] Comment on above: Order Comment: Speci men Type: URINE SPECIMENOrdering Facility: [facility] Address: [address] [place] [address] Result Comment: Cuto ff threshold at 300 ng/mL. Performed By: #### U TOX2 ####[facility] LABORATORYCLIA [id number] [address] [place] Ethanol (U) [Mass/Vol] <11 Normal <11 [facility] Comment on above: Order Comment: Speci men Type: URINE SPECIMENOrdering Facility: [facility] Address: [address] [place] [address] Performed By: #### U TOX2 ####[facility] LABORATORYCLIA [id number] [address] [place] Opiates Screen Ql (U) Negative Normal Negative [facility] Comment on above: Order Comment: Speci men Type: URINE SPECIMENOrdering Facility: [facility] Address: [address] [place] [address] Result Comment: Cuto ff threshold at 300 ng/mL. Performed By: #### U TOX2 ####[facility]ORATORYCLIA [id number] [address] oxyCODONE cutoff Screen (U) [Mass/Vol] Positive Abnormal Negative [facility] Comment on above: Order Comment: Speci men Type: URINE SPECIMENOrdering Facility: [facility] Address: [address] [place] [address] Result Comment: Cuto ff threshold at 100 ng/mL. Performed By: #### U TOX2 ####[facility]ORATORYCLIA [id number] [address] [place] Phencyclidine Ql (U) Negative Normal Negative [facility] Comment on above: Order Comment: Speci men Type: URINE SPECIMENOrdering Facility: [facility] Address: [address] [place] [address] Result Comment: Cuto ff threshold at 25 ng/mL. Performed By: #### U TOX2 ####[facility] LABORATORYCLIA [id number] [address] TRANSFUSION REACTION ADDITIO NAL WORKUPon 12-09-2024 POST C3 DAGT Positive Normal [facility] Comment on above: Order Comment: Speci men Type: BLOOD SPECIMENOrdering Facility: [facility] Address: [address] [place] [address] Performed By: #### L [id number], ABORH, [id number], TRXN ####[facility] B[facility] BANKCLIA [id number] [address] [place] POST IGG DAGT Negative Normal [facility] Comment on above: Order Comment: Speci men Type: BLOOD SPECIMENOrdering Facility: [facility] Address: [address] [place] [address] Performed By: #### L [id number], ABORH, [id number], TRXN ####[facility] BANKCLIA [id number] [address] [place] PRE C3 DAGT Positive Normal [facility] Comment on above: Order Comment: Speci men Type: BLOOD SPECIMENOrdering Facility: [facility] Address: [address] [place] [address] Performed By: #### L [id number], ABORH, [id number], TRXN ####[facility] BLO[facility] BANKCLIA [id number] [address] [place] PRE IGG DAGT Negative Normal [facility] Comment on above: Order Comment: Speci men Type: BLOOD SPECIMENOrdering Facility: [facility] Address: [address] [place] [address] Performed By: #### L [id number], ABORH, [id number], TRXN ####[facility] BANKCLIA [id number] [address] OF [facility] PRE POLY DAGT Positive Normal [facility] Comment on above: Order Comment: Speci men Type: BLOOD SPECIMENOrdering Facility: [facility] Address: [address] [place] [address] Performed By: #### L [id number], ABORH, [id number], TRXN ####[facility] BLO[facility] BANKCLIA [id number] [address] [place] TRANSFUSION REACTION EVALon 12-09-2024 OK TO TRANSFUSE Yes Normal [facility] Comment on above: Order Comment: Speci men Type: BLOOD SPECIMENOrdering Facility: [facility] Address: [address] [place] [address] Result Comment: Ramos [facility] Approval given by: Dr. Anderson (if medically necessary) Performed By: #### L [id number], ABORH, [id number], TRXN ####[facility]LO[facility] BANKCLIA [id number] [address] [place] POST POLY DAGT Positive Normal [facility] Comment on above: Order Comment: Speci men Type: BLOOD SPECIMENOrdering Facility: [facility] Address: [address] [place] [address] Performed By: #### L [id number], ABORH, [id number], TRXN ####[facility] BLO[facility] BANKCLIA [id number] [place] [address] TYPE + SCREENon 12-09-2024 ABO B Normal [facility] Comment on above: Order Comment: Speci men Type: BLOOD SPECIMENOrdering Facility: [facility] Address: [address] [place] [address] Performed By: #### T SCR ####[facility] BLO[facility] BANKCLIA [id number] [place] [phone] [facility] Rh Nom (Bld) Positive Normal [facility] Comment on above: Order Comment: Speci men Type: BLOOD SPECIMENOrdering Facility: [facility] Address: [address] [place] [address] Performed By: #### T SCR ####[facility] BLO[facility] BANKCLIA [id number] [place] [id number] [facility] TYPE AND SCREEN EXPIRATION 12/12/2024 23:59 Normal [facility] Comment on above: Order Comment: Speci men Type: BLOOD SPECIMENOrdering Facility: [facility] Address: [address] [place] [address] Performed By: #### T SCR ####[facility] BANKCLIA [id number] [address] [place] XR CHEST 1V FRONTALon 2024 XR CHEST 1V FRONTAL Normal [facility] Vital Signs Date Time Vital Sign Value Performing Clinician Faci lity 01-04-2025 12:18-0400 Body temperature 98.1 [degF] [facility] 01-04-2025 12:18-0400 Diastolic blood pressure 66 mm[Hg] [facility] 01-04-2025 12:18-0400 Heart rate 108 /min [facility] 01-04-2025 12:18-0400 Respiratory rate 21 /min [facility] 01-04-2025 12:18-0400 SaO2% (BldA) [Mass fraction] 96 % [facility] 01-04-2025 12:18-0400 Systolic blood pressure 96 mm[Hg] [facility] 01-04-2025 06:30-0400 Inhaled oxygen flow rate 15 L/min [facility] 01-04-2025 06:270400 Body height 177.8 cm [facility] 01-04-2025 06:27-0400 Body mass index (BMI) [Ratio] 23.4 kg/m2 [facility] 01-04-2025 06:27-0400 Body weight 74.1 kg [facility] Encounters Encounter Date Encounter Type Care Provider Facility Start: 01-04-2025 End: 01-04-2025 Emergency department patient visit [facility] -Emergency Department Work Phone: Start: 12-09-2024 End: 12-22-2024 Evaluation and management of inpatient MILES BARLOW Facility:[facility] Procedures Date Procedure Procedure Detail Performing Clinician Start: 01-04-2025 Urnls dip stick/tabl et reagent auto microscopy [facility] Start: 01-04-2025 Computed tomography of abdomen and pelvis with intravenous contrast [facility] Start: 01-04-2025 CT angiography of ch est with contrast [facility] Start: 01-04-2025 Estimated creatinine clearance [facility] Start: 01-04-2025 Flow cytometry cell surf marker techl only 1st [facility] Start: 12-20-2024 Antibody screen MILES CONROY Comment on above: Order Comment: Speci men Type: BLOOD SPECIMENOrdering Facility: [facility] Address: [address] [place] [address] Performed By: #### T SCR ####[facility] BLO[facility] BANKCLIA [id number] [address] Start: 12-13-2024 Antibody screen MILES CONROY Comment on above: Order Comment: Speci men Type: BLOOD SPECIMENOrdering Facility: [facility] Address: [address] [place] [address] Performed By: #### T SCR ####[facility] BLO[facility] BANKCLIA [id number] [address] Start: 12-10-2024 Echocardiography MILES BARLOW Start: 12-09-2024 Antibody screen [facility] Comment on above: Order Comment: Speci men Type: BLOOD SPECIMENOrdering Facility: [facility] Address: [facility] [place] [id number] Performed By: #### T SCR ####[facility] BLOOD BANKCLIA [id number] [place] [address] [facility] Plan of Treatment Date Care Activity Detail Author Start: 01-04-2025 Bacteria identified in Blood by Culture Blood Culture [facility] Start: 01-04-2025 Bacteria identified in Urine by Culture Urine Culture [facility] Start: 01-04-2025 [facility] Start: 01-04-2025 End: 01-04-2025 [facility] Start: 01-04-2025 X-ray of chest, PA a nd lateral views Chest PA and Lateral [facility] Start: 01-04-2025 XR Chest PA and Lateral [facility] Troponin T.cardiac [Mass/volume] in Serum or Plasma by High sensitivity method [facility] Urine culture [facility] Payers Date Payer Category Payer Self-pay 2024 Unknown [id number] 1992 Medicare [id number] Unknown [id number] Social History Date Type Detail Facility Start: [facility]-04-2025 [facility] Start: 03-21-2016 Alcohol Alcohol [facility] Start: 03-21-2016 Drugs Drugs [facility] Start: 03-21-2016 Lives Lives [facility] Start: 03-21-2016 Tobacco Use Tobacco Use [facility] Start: 1955 Sex Assigned At Male W [facility] Clinical Notes 12-09-2024 to 01-04-2025 Note Date & Type Note Facility 01-04-2025 Discharge summary [facility] 01-04-2025 Radiology Diagnostic study note [facility] Imaging Services [address] [place], [place] [id number] CTA Chest W/WO Contrast MR#: [id number] Acct: [id number] Name: CAROLINA CHENEY Rep #: [id number] : 1955 M 69 From: Pet er Peer PCP: [facility] Status: REG ER Study:CTA Chest W/WO Contrast Date of Exam: 01/04/25 Exam# [id number] Ordering Dr: Clair Harmon DO PROCEDURE: CTA CHEST W/WO CONTRAST 01/04/2025 REASON FOR EXAM: Shortness of breath history of cancer TECHNIQUE: CTA CHEST W/WO CONTRAST Multiplanar Sagittal and Coronal images were obtained. CONTRAST: Isovue 370 VOLUME: 100 mL One or more dose reduction techniques were used (e.g., Automated exposure control, adjustment of the mA and/or kV according to patient size, use of iterative reconstruction technique). RADIATION DOSE SUMMARY: CTDlvol: 6.29, 6.70 and 10.24 mGy DLP: 742.11 mGycm COMPARISON: Chest radiograph January 04, 2025 FINDINGS: Thoracic Aorta: Normal caliber. Heart: Normal size. Pulmonary Vessels: No pulmonary embolism. Hardware: None. Lymph nodes: No isolated identified Lungs and Airways: Complete atelectasis of the left upper lobe versus large mass. Sedation in the superior segment of the left lower lobe. Consider bronchial plugs with either mucous or neoplasm versus other Pleura: Very small left pleural effusion. 13 mm ovoid pleural-based nodule in the right lower lobe, and several similar size pulmonary nodules throughout the right lung Upper Abdomen: Unremarkable Bones: Schmorl's node inferior endplate T11 CT/CTA Chest W/WO Contrast IMPRESSION: No pulmonary embolism. Complete atelectasis of the left upper lobe from bronchial plugging from mucous,lung cancer versus other etiology. Multi focal right lung pulmonary metastases Reading Location: [facility]- CC: Dr. Ned Harmon DO; [facility] ~ Card Writer Hand: Signed [facility] 01-04-2025 Radiology Diagnostic study note [facility] Imaging Services [address] [place] [address] Abdomen/Pelvis W IV Cont ONLY MR#: [id number] Acct: [id number] Name: CAROLINA CHENEY Rep #: [id number] : 1955 M 69 From: Enzo Bee MD [facility]CP: [facility] Status: REG ER Study:Abdomen/Pelvis W IV Cont ONLY Date of E xam: 01/04/25 Exam# [id number] Ordering Dr: Clair Harmon DO PROCEDURE: ABDOMEN/PELVIS W IV CONT ONLY 01/04/2025 REASON FOR EXAM: HX OF LUNG CANCER TECHNIQUE: ABDOMEN/PELVIS W IV CONT ONLY Coronal and Sagittal reconstruction series were provided. CONTRAST: Isovue 370 VOLUME: 95 mL One or more dose reduction techniques were used (e.g., Automated exposure control, adjustment of the mA and/or kV according to patient size, use of iterative reconstruction technique. RADIATION DOSE SUMMARY: CTDlvol: 23.50 mGy DLP: 742.11 mGycm COMPARISON: None. FINDINGS: Lung bases: Please see chest CT findings, same day. Liver: The liver measures 18.0 cm in vertical dimension in the midclavicular line. Gallbladder: Normal. Spleen: Normal. Pancreas: Normal. Adrenals: Normal. Kidneys: Normal. Bladder: Normal unenhanced appearance. Reproductive Organs: The prostate gland measures 4.7 cm in transverse dimension and contains a coarse calcification. The seminal vesicles are unremarkable. There is no free fluid in the pelvis. There is no inguinal lymphadenopathy. Bowel: There are few mildly distended loops of the small bowel with air-fluid levels and there is mild distention of the transverse colon. There are no abnormally dilated loops of bowel. This may be a mild ileus associated with chemotherapy. Appendix: Normal. Lymph nodes: There is gastrohepatic lymphadenopathy measuring 3.8 x 2.9 cm in conglomerate. There are multiple enlarged retroperitoneal lymph nodes, index node, a left periaortic lymph node measuring 2.0 x 1.3 cm. Vasculature: There is calcific vascular disease of the abdominal aorta. The inferior vena cava and portal venous system are normal. Peritoneum / Retroperitoneum: There are no abnormal intra or retroperitoneal masses or fluid collections. There is a midline ventral hernia, containing normal fat, measuring 5.6 cm in diameter, 8.0 cm above the umbilicus. Bones: There is mild multilevel degenerative disc disease of the lower thoracic and lumbar spine. There is a large Schmorl's node in the superior endplate of L5. CT/Abdomen/Pelvis W IV Cont ONLY IMPRESSION: 1. Upper intra-abdominal and retroperitoneal lymphadenopathy suspicious for metastatic disease. 2. Hepatomegaly. 3. Mild ileus. 4. Other findings as noted. Reading Location: [id number] CC: Dr. Ned Harmon, DO; [facility] Card Writer Hand: Signed [facility] Work Phone: 12-22-2024 Note [facility] 12-22-2024 Note [facility] 12-22-2024 Note [facility] 12-22-2024 Note [facility] 12-21-2024 Note [facility] 12-21-2024 Note [facility] 12-20-2024 Note [facility] 12-19-2024 Note [facility] [place] 12-19-2024 Note HNO ID: [id number] Author: EBEN NOLEN, TOMAS Service: Nursing Author Type: Registered Nurse Type: Nursing Progress Note Filed: 12/19/2024 05:52 Note Text: Pt refused blood work at this time. Said he'd do it later. [facility] 12-18-2024 Note [facility] [place] 12-18-2024 Note [facility] [place] 12-17-2024 Note [facility] [place] 12-16-2024 Note [facility] [place] 12-16-2024 Note HNO ID: [id number] Author: EBEN NOLEN, TOMAS Service: Nursing Author Type: Registered Nurse Type: Nursing Progress Note Filed: 12/16/2024 02:02 Note Text: Pt given a soapsuds enema; tolerated well; Pt had a mixed BM of liquid and solid [facility] [place] [facility] Note [facility] [place] 12-13-2024 Note HNO ID: [id number] Author: REN SCHULTZ, TOMAS Service: ? Author Type: Registered Nurse Type: Nursing Progress Note Filed: 12/14/2024 02:00 Note Text: Pt fired off sepsis BPA. Pager [phone] messaged. No new orders at this time [facility] 12-13-2024 Note [facility] 12-12-2024 Note [facility] 12-11-2024 Note [facility] 12-11-2024 Note [facility] 12-10-2024 Note [facility] 12-09-2024 Note SARS-COV-2 (AGENT OF COVID-19) RNA: Not detected INFLUENZA A RNA: Not detected INFLUENZA B RNA: Not detected RESPIRATORY SYNCYTIAL VIRUS (RSV) RNA: Not detected [facility] Comment on above: Performed By: #### 9 5941-1 ####[facility] LABORATORYCLIA [id number] [place] [address] [facility] Discharge summary Note Date/Time January 04, 2025 1:28pm [facility] Medical Records Department [address] [place] [id number] Emergency Department Summary 01/04/25 MR#: [id number] Acct: [id number] Name: CAROLINA CHENEY Rep #:[id number] : 1955 69 From: Ned Harmon DO PCP: [facility] Status:REG ER Location: ED ADDENDUM by Dr. Ned Harmon DO on 01/04/25 at 1328 Patient EKG reviewed showed sinus tachycardia with rate of 107 bpm. 01/04/25 1328<Electronically signed by Ned Harmon DO> Cosigner Signature (if applicable): cc: [facility] ~* Signed HPI History of Present Illness Chief Complaint: Shortness of Breath Narrative Narrative: Patient is a 69-year-old male with past medical history of lung cancer who presents to the emergency department with chief complaint of shortness of breath. Patient states that he has had off-and-on shortness of breath for the last several weeks he has had recent hospitalizations he states that originally he was [facility] and there was admitted to [facility] About 2 weeks ago. He states that he will be sleeping and he will feel like he wakes up gasping for air having shortness of breath difficulty breathingtherefore he came here for further evaluation management. Patient denies any travel denies any history of blood clots. [facility] Medical History Lung cancer Home Medications ?Medication ?Instructions ?Recorded ?Last Taken ?Type Unobtainable 01/04/25 Unknown History Allergy/AdvReac Type Severity Reaction Status Date / Time No Known Allergies Allergy Verified 01/04/25 06:26 Social History Smoking Status: Former smoker ROS ROS ED ROS Narrative Constitutional: Complains of chills denies fevers denies headache Eyes: Denies change in vision double vision blurry vision Cardiovascular: Denies chest pain or palpitations Respiratory: Complains of shortness of breath as noted above Abdomen: Denies abdominal pain nausea vomit diarrhea : Denies urinary symptoms Neurological: Denies numbness, weakness, tingling Musculoskeletal: Denies back pain Skin: Denies any rashes or lesions EXAM Physical Exam Narrative Exam Narrative: General: Patient lying in bed rest comfortably did not appear to be acute distress Head: Atraumatic, normocephalic Eyes: PERRL bilaterally, EOMI blood, no conjunctival injection noted Neck: Soft, supple, trachea midline Cardiovascular: Patient tachycardic with a regular rhythm Respiratory: Diminished breath sounds bilaterally Abdomen: No tenderness to palpation, soft, nondistended Extremities: +5/5 strength noted in the bilateral upper and lower extremities Neurological: Patient follow commands and that he was at [facility] year is 2024 Skin: Warm. Dry, intact no rashes or lesions noted Const Vital Signs: 01/04/25 06:27 01/04/25 06:30 01/04/25 06:33 Temperature 99.8 F H 99.8 F H Temperature Source Axillary Axillary Pulse Rate 106 H 106 H Respiratory Rate 38 H 34 H Respiratory Effort Short of Breath Blood Pressure 118/86 H 107/86 H Blood Pressure Mean 96 93 Pulse Ox 92 96 Oxygen Delivery Method Non-Rebreather Non-Rebreather Oxygen Flow Rate (L/min) 15 15 01/04/25 06:51 01/04/25 06:52 01/04/25 07:43 Temperature 98.4 F Temperature Source Oral Pulse Rate 104 H Respiratory Rate 30 H 31 H Respiratory Effort Blood Pressure 108/72 Blood Pressure Mean 84 Pulse Ox 97 98 97 Oxygen Delivery Method Room Air Room Air Room Air Oxygen Flow Rate (L/min) 01/04/25 08:00 01/04/25 08:38 01/04/25 09:00 Temperature 98.7 F 97.9 F 98.7 F Temperature Source Oral Oral Oral Pulse Rate 102 H 107 H 106 H Respiratory Rate 24 H 18 21 H Respiratory Effort Blood Pressure 107/68 94/67 111/74 Blood Pressure Mean 81 76 86 Pulse Ox 97 96 100 Oxygen Delivery Method Room Air Room Air Room Air Oxygen Flow Rate (L/min) 01/04/25 10:00 01/04/25 10:02 01/04/25 11:00 Temperature 97.8 F 98.9 F Temperature Source Oral Temporal Pulse Rate 107 H 104 H 112 H Respiratory Rate 23 H 20 H 22 H Respiratory Effort Blood Pressure 110/84 H 91/64 Blood Pressure Mean 92 73 Pulse Ox 100 99 Oxygen Delivery Method Room Air Room Air Oxygen Flow Rate (L/min) 01/04/25 12:18 Temperature 98.1 F Temperature Source Oral Pulse Rate 108 H Respiratory Rate 21 H Respiratory Effort Blood Pressure 96/66 Blood Pressure Mean 76 Pulse Ox 96 Oxygen Delivery Method Room Air Oxygen Flow Rate (L/min) MDM MDM MDM Narrative Medical decision making narrative: Patient is a 69-year-old male who presented to the emergency department chief complaint of shortness of breath. Exam patient does have a history of lung cancer and states that he is scheduled to have a PET scan to see if there are metastases. On the differential diagnosis includes but not limited to of malignant pleural effusion, pneumothorax, pneumonia, ACS, PE, CHF. Once workup is obtained reviewed he will be reevaluated. Patient given 30 cc/kg bolus of IVfluids this was ordered at 6:55 AM Patient CBC reviewed shows a white blood count of 10,000, hemoglobin 7.9, platelet count was noted to be 288.. Patient's INR normal 1.2, PT of 14.9, sodium was low at 120 indicating hyponatremia, potassium was normal 4.2, creatinine was 1.06. Patient's glucose was noted be 111. Patient's AST and ALTwere 49 and 18 respectively. Patient's troponin was 22 and 20 respectively. Patient's proBNP was elevated to 1141, urinalysis reviewed showed no evidence ofinfection. Patient's CTA of the chest reviewed and showed no evidence of PE complete all atelectasis of the left upper lobe from bronchial plugging from mucus, lung cancer versus other etiology multifocal right lung pulmonary metastases. Patient CT abdomen pelvis IV contrast showed upper intra-abdominal and retroperitoneal lymphadenopathy suspicious for metastatic disease hepatomegaly mild ileus and other findings noted. Patient's case was discussed with on-call marketing database analyst Dr. Winn prior to admitting him here and he recommends transfer to tertiary care center. Spoke with transfer time multiple times at [facility] Who she reached out to their pulmonology team and other providers and they state that they would not stent this as they feel that he is not amenable to this procedure. They reach back out with hospitalist Dr. Fuentes who I discussed case with and he is recommending attempting to transfer to the [facility] given that this is palliative care at this point in time. While waiting to hear back the patient ultimately decided he wanted to leave AGAINST MEDICAL ADVICE. I notified him that there is chance that his respiratory status worsens leading to him not being able to breathe at all and ultimately dying. He was advised to follow-up with his palliative care team, chemo/hematology oncology at [facility]. He was vies return with worsening symptoms or other concerns. He is agreeable to plan all question concerns answered he will leave AGAINST MEDICAL ADVICE. Patient did note that he was overall pleased with the care he just cannot wait any longer for another transport and will directly talk with his [place] doctors for potential direct admission Lab Data Labs: Laboratory Results - last 24 hr 01/04/25 01/04/25 01/04/25 06:34 07:04 07:50 WBC 10.7 RBC 2.61 L Hgb 7.9 L Hct 23.8 L MCV 91.2 MCH 30.3 MCHC 33.2 RDW Std Deviation 58.1 H RDW Coeff of Hai 17.5 H Plt Count 288 MPV 9.5 Neut % (Auto) Not Reportable Absolute Neuts (auto) 9.0 H Absolute Lymphs (auto) 0.43 L Total Counted 100 Neutrophils % (Manual) 83 H Band Neutrophils % 1 Lymphocytes % (Manual) 4 L Monocytes % (Manual) 6 Eosinophils % (Manual) 2 Metamyelocytes % 4 H Diff Path Review May foll Platelet Estimate ADEQUATE RBC Morphology NORM C+C PT 14.9 INR 1.2 APTT 35.7 Sodium 120 L Potassium 4.2 Chloride 87 L Carbon Dioxide 19.5 L Anion Gap 14 BUN 14 Creatinine 1.06 Estim Creat Clear Calc 67.91 Est GFR (MDRD) Non-Af 76 BUN/Creatinine Ratio 13.2 Glucose 111 H Lactic Acid 1.3 Calcium 8.5 Total Bilirubin 0.88 AST 49 H ALT 18 Alkaline Phosphatase 81 Troponin T High Sens 22 Troponin T Hi Sens 2 Hr NT pro BNP II 1141 H Total Protein 6.5 Albumin 3.1 L Globulin 3.4 Albumin/Globulin Ratio 0.9 Urine Color Yellow Urine Clarity Clear Urine pH 6.0 Ur Specific [place] 1.015 Urine Protein 30 H Urine Glucose (UA) Normal Urine Ketones 5 H Urine Occult Blood 25 H Urine Nitrite Negative Urine Bilirubin Negative Urine Urobilinogen Normal Ur Leukocyte Esterase Negative Urine RBC 0-5 SEEN Urine WBC 0-5 SEEN Ur Squamous Epith Cells 0-5 SEEN Urine Bacteria RARE Urine Mucus 0 SEEN 01/04/25 10:35 WBC RBC Hgb Hct MCV MCH MCHC RDW Std Deviation RDW Coeff of Hai Plt Count MPV Neut % (Auto) Absolute Neuts (auto) Absolute Lymphs (auto) Total Counted Neutrophils % (Manual) Band Neutrophils % Lymphocytes % (Manual) Monocytes % (Manual) Eosinophils % (Manual) Metamyelocytes % Diff Path Review Platelet Estimate RBC Morphology PT INR APTT Sodium Potassium Chloride Carbon Dioxide Anion Gap BUN Creatinine Estim Creat Clear Calc Est GFR (MDRD) Non-Af BUN/Creatinine Ratio Glucose Lactic Acid Calcium Total Bilirubin AST ALT Alkaline Phosphatase Troponin T High Sens Troponin T Hi Sens 2 Hr 20 NT pro BNP II Total Protein Albumin Globulin Albumin/Globulin Ratio Urine Color Urine Clarity Urine pH Ur Specific [place] Urine Protein Urine Glucose (UA) Urine Ketones Urine Occult Blood Urine Nitrite Urine Bilirubin Urine Urobilinogen Ur Leukocyte Esterase Urine RBC Urine WBC Ur Squamous Epith Cells Urine Bacteria Urine Mucus Radiography Diagnostic Testing: Clinical Impression(s) from Imaging Studies Abdomen/Pelvis CT 01/04/25 07:30 IMPRESSION: 1. Upper intra-abdominal and retroperitoneal lymphadenopathy suspicious for metastatic disease. 2. Hepatomegaly. 3. Mild ileus. 4. Other findings as noted. Reading Location: [id number] Chest CTA 01/04/25 07:30 IMPRESSION: No pulmonary embolism. Complete atelectasis of the left upper lobe from bronchial plugging from mucous,lung cancer versus other etiology. Multi focal right lung pulmonary metastases Reading Location: [facility] Discharge Plan Triage Chief Complaint: Shortness of Breath ED Provider: Ned Harmon Dx/Rx/DC Orders Clinical Impression: Breath shortness, Lung cancer, History of metastatic neoplastic disease Prescriptions: No Action Unobtainable Primary Care Provider: [facility] Referrals: [place] [Primary Care Provider] - Activity Restrictions/Additional Instructions: Follow-up with the [facility] as well as your palliative care team. Return with worsening symptoms or any other concerns. Print Language: Greek Disposition Disposition: Against Medical Advice What to do if you have Problems For any increased pain, shortness of breath, bleeding, nausea or vomiting, chestpain, or any unexpected problems, contact your Primary Care Provider. Call [facility] ([phone]) or report to the closest Emergency Room. Call 911 if necessary. 01/04/25 1327 <Electronically signed by Ned Harmon DO> Cosigner Signature (if applicable): CC: [place] [facility] ~ Signed [facility] Work Phone: Evaluation noteNo assessment information available [facility] Work Phone: Hospital Discharge instructionsAdditional Instructions Follow-up with the [facility] as well as your palliative care team. Return with worsening symptoms or any other concerns.[facility] Work Phone: Reason for referral (narrative)No reason for referral information availableWSCCI [facility] Work Phone: Summary Purpose Family History No Family History Records Found Relationship Condition Age at Onset Recorded Date/T kareem Unknown Family History?- Unknown March 022015 5:16pm Advance Directives No Advanced Directives Records Found Advance Directive Response Recorded Date/ Time Do you have a Healthcare Power of Residential Plumber? No January 04, 2025 6:31am Advance Directives No March 5:17pm Chief Complaint and Reason for Visit Chief Complaint Admit Date sob January 04, 2025 6:26a m Additional Source Comments (unrecognized sect ion and content) No Status Records FoundNo Status Records Found INFORMATION SOURCE (unrecogn ized section and content) DATE CREATED AUTHOR 01/04/2025 [facility] DATE CREATED AUTHOR AUTHOR'S DAJA TALBOT 01/21/2025 [facility] Care Teams (unrecognized sec tion and content) Team Status: Active Member Role/Relationship Status Dates [facility] Primary Care Provider Active Team Status: Inactive Member Role/Relationship Status Dates [facility] Primary Care Provider Active Start: January 04, 2025 End: January 04, 2025 Dr. Ned Harmon , DO Emergency Provider Active Start: January 04, 2025 End: January 04, 2025 Goals (unrecognized section and content) Goals may be documented in a n alternate section FOR RECORDS PERTAINING TO PATIENTS WHO ARE OR HAVE BEEN ENROLLED IN A CHEMICAL DEPENDENCY/SUBSTANCEABUSE PROGRAM, SOME INFORMATION MAY BE OMITTED. This clinical summary was aggregated from multiple sources. Caution should be exercised in using it in the provision of clinical care. This summary normalizes information from multiple sources, and as a consequence, information in this document may materially change the coding, format and clinical context of patient data. In addition, data may be omitted in some cases. CLINICAL DECISIONS SHOULD BE BASED ON THE PRIMARY CLINICAL RECORDS. [facility] [employer] [facility]. provides no warranty or guarantee of the accuracy or completeness of information in this document.
[2025-03-01 05:45] LABS: Troponin T High Sens 2 HR 34 ng/L (<=22)
[2025-03-01] MEDS: Ceftriaxone 2 GM in 0.9% Normal Saline (50mL MB+) 50 ML IV (05:52)
[2025-03-01] MEDS: Azithromycin 500 MG in 0.9% Normal Saline (250mL Bag) 250 ML 255 MG IV ×2 (06:37→21:26)
[2025-03-01 07:28] LABS: Troponin T High Sens 4 HR 29 ng/L (<=22)
--- NOTE | 2025-03-01 09:12 | NURSING ---
[facility]ILL IN THE ED AND NEEDING A BED. NO FUTHER INFORMATION.
--- NOTE | 2025-03-01 16:47 | ED.RN ---
[facility]LL[facility] AND THE PERSON I TALKED TO HAD NO I NFORMATION ON OUR PATIENT. HE REASSURED ME THIS WOULD BE TAKEN CARE OF AND HE WOULD HAVE A BED BY 6:30. HIS NAME WAS JENN
--- NOTE | 2025-03-01 18:58 | PCM.HP.STD ---
HPI - General General Date of Admission: 03/01/25 Date of Service: 03/01/25 Chief Complaint: Shortness of breath HPI Narrative CAROLINA CHENEY, is a 69y/o male w/ hx of stage IV lung cancer not receiving any treatment because he was not responding to immunotherapy and symptomatic anemia who presented [facility] ED 03/01/2025 for shortness of breath especially in the mornings but over the past 3 days he has continued to worsen, also has mild wheezing and coughing. Also notes the past 2 weeks he has had increased swelling in his lower extremities. In the ED patient afebrile, patient with variable heart rate anywhere from 90s to 120s, blood pressure initially 106/92, respiratory rate 18 patient 98% on 3 L nasal cannula with a respiratory rate of 19. CBC with white blood cell count 14.4, hemoglobin 10.2 and platelet count 459. BMP with a sodium of 126, up from 120 in December, BUN of 11 and creatinine 0.65, Trop of 36 with 4-hour Trop of 29, and a proBNP of 2433. Lactic acid within normal limits. CTA obtained and showed mild increase in size of patient's left upper lobe/left hilar mass with increased cavitation consolidation as well as left pleural effusion, mild increase in size and number of pulmonary nodules, unchanged multifocal compression of the left pulmonary artery and branches. ED physician was concern for postobstructive pneumonia and fluid overload, patient received Rocephin and azithromycin as well as IV Lasix in the ED. [facility] and was supposed to be transferred however no beds for prolonged amount of time and [facility] with [facility] to our institution given lack of bed availability so hospitalist contacted for admission. Patient evaluated bedside. Patient reports he is still having shortness of breath but feels better than when he first arrived especially since he has been pain off fluid. He notes that he has been having shortness of breath and cough for a year and was diagnosed with stage IV lung cancer, usually he short of breath when he wakes up in the morning but then will improve throughout the day and some days will not feel too bad at all over the past 3 days he has not been improving throughout the day, does cough but has difficulty producing any sputum, also notes leg swelling for the past 2 weeks. He reports before his lung cancer diagnosis he had never been hospitalized and did not take any medications, denies smoking, only thing he takes at home currently is oxycodone as needed since his diagnosis. Denies any breathing treatments at home and does not wear home oxygen. He denies any chest pain, no fever at home, occasionally gets some abdominal pain but nothing significant, had been having problems with constipation but that has resolved, denies nausea. Denies problems with urination [facility] Medical History Lung cancer Home Medications ?Medication ?Instructions ?Recorded ?Last Taken ?Type Unobtainable 01/04/25 Unknown History Allergy/AdvReac Type Severity Reaction Status Date / Time No Known Allergies Allergy Verified 01/04/25 06:26 Social History Smoking Status: Former smoker ROS ROS Narrative General: Denies fever/chills HENT: Denies headache, denies stuffy nose, denies sore throat EYES: Denies changes in vision Resp: Cough but difficulty producing sputum, shortness of breath especially with exertion but does have some at rest Cardiac: Denies chest pain GI: Occasionally will have some abdominal pain, denies changes in bowel, denies nausea/vomiting : Denies changes in urination Extremity: Increased swelling in lower extremities MSK: Feels somewhat weak overall Neuro: Sometimes will get tingly feeling around his abdomen Heme: Denies any bleeding or bruising Skin: Denies rashes Psychiatric: Patient struggling with diagnosis and prognosis Vital Signs Vital Signs Vital Signs: 03/01/25 01:34 03/01/25 01:40 03/01/25 02:43 Temperature 98.4 F 98.4 F Temperature Source Axillary Axillary Pulse Rate 120 H 96 Respiratory Rate 30 H 20 H Respiratory Effort Short of Breath Labored Respiratory Depth Shallow Respiratory Pattern Tachypnea Blood Pressure 124/100 H 118/96 H Blood Pressure Mean 108 103 Pulse Ox 95 97 Oxygen Delivery Method Room Air Nasal Cannula Nasal Cannula Oxygen Flow Rate (L/min) 2 2 03/01/25 02:43 03/01/25 02:55 03/01/25 03:09 Temperature 98.4 F Temperature Source Oral Pulse Rate 80 92 Respiratory Rate 14 18 Respiratory Effort Respiratory Depth Respiratory Pattern Blood Pressure 106/92 H Blood Pressure Mean 96 Pulse Ox 97 97 Oxygen Delivery Method Nasal Cannula Oxygen Flow Rate (L/min) 2 03/01/25 04:06 03/01/25 05:00 03/01/25 06:10 Temperature 98.6 F 98 F Temperature Source Oral Temporal Pulse Rate 122 H 107 H 129 H Respiratory Rate 15 18 16 Respiratory Effort Respiratory Depth Respiratory Pattern Blood Pressure 119/83 H 120/59 L Blood Pressure Mean 95 79 Pulse Ox 100 100 99 Oxygen Delivery Method Oxygen Flow Rate (L/min) 03/01/25 07:03 03/01/25 07:10 03/01/25 08:00 Temperature 97.8 F 98.7 F Temperature Source Oral Oral Pulse Rate 111 H 121 H 114 H Respiratory Rate 19 H 19 H 19 H Respiratory Effort Respiratory Depth Respiratory Pattern Blood Pressure 102/82 H 102/82 H 119/77 Blood Pressure Mean 88 88 91 Pulse Ox 98 100 99 Oxygen Delivery Method Nasal Cannula Nasal Cannula Nasal Cannula Oxygen Flow Rate (L/min) 3 3 03/01/25 09:00 03/01/25 10:00 03/01/25 12:15 Temperature 98.9 F 98.1 F 98.3 F Temperature Source Oral Oral Oral Pulse Rate 51 L 88 118 H Respiratory Rate 17 18 18 Respiratory Effort Respiratory Depth Respiratory Pattern Blood Pressure 91/72 130/71 H 106/76 Blood Pressure Mean 78 90 86 Pulse Ox 98 96 98 Oxygen Delivery Method Nasal Cannula Nasal Cannula Nasal Cannula Oxygen Flow Rate (L/min) 3 3 3 03/01/25 13:00 03/01/25 14:00 03/01/25 15:00 Temperature 98.1 F 98.2 F 98.2 F Temperature Source Axillary Axillary Oral Pulse Rate 113 H 114 H 134 H Respiratory Rate 17 19 H 24 H Respiratory Effort Respiratory Depth Respiratory Pattern Blood Pressure 100/73 90/66 130/66 H Blood Pressure Mean 83 72 87 Pulse Ox 98 95 94 Oxygen Delivery Method Nasal Cannula Oxygen Flow Rate (L/min) 3 03/01/25 16:00 03/01/25 17:00 03/01/25 18:00 Temperature 97.8 F 97.8 F 98.3 F Temperature Source Oral Oral Pulse Rate 120 H 112 H 115 H Respiratory Rate 28 H 18 24 H Respiratory Effort Respiratory Depth Respiratory Pattern Blood Pressure 90/68 97/77 102/79 Blood Pressure Mean 75 85 86 Pulse Ox 100 98 97 Oxygen Delivery Method Nasal Cannula Room Air Oxygen Flow Rate (L/min) 3 Weight Weight: 72.4 kg Body Mass Index (BMI) 22.8 Physical Exam Narrative General: Alert, overall answers questions appropriately, is short of breath HEENT: Atraumatic, normocephalic Eyes: Anicteric, normal conjunctiva, extraocular movements grossly intact Neck: Supple Respiratory: Increased respiratory effort, left side diminished diffusely Cardiovascular: Tachycardic, heart rate irregular but appears underlying rhythm is sinus with sinus arrhythmia GI: Soft, nontender, nondistended, does have spot on right side of his abdomen that he said protrudes due to all the coughing he had been having, denies any change, it does not seem to be tender, no rebound, guarding, rigidity Extremities: 1+ bilateral lower extremity edema Musculoskeletal: Moving all extremities Neuro: No overt focal neurological deficits Skin: No rashes appreciated Psych: Cooperative Results Lab / Micro Data 03/01/25 02:40 03/01/25 02:40 Labs: Laboratory Results - last 24 hr 03/01/25 02:40: WBC 14.4 H, RBC 3.76 L, Hgb 10.2 L, Hct 31.5 L, MCV 83.8, MCH 27.1, MCHC 32.4, RDW Std Deviation 47.4 H, RDW Coeff of Hai 15.4 H, Plt Count 459 H, MPV 9.4, Immature Gran % (Auto) 4.700 H, Neut % (Auto) 81.2 H, Lymph % (Auto) 4.8 L, [place] % (Auto) 8.9, Eos % (Auto) 0.0, Baso % (Auto) 0.4, Absolute Neuts (auto) 11.7 H, Absolute Lymphs (auto) 0.69 L, Nucleated RBC % 0, Sodium 126 L, Potassium 4.2, Chloride 90 L, Carbon Dioxide 22.6, Anion Gap 14, BUN 11, Creatinine 0.65 L, Estim Creat Clear Calc 89.24, Est GFR (MDRD) Non-Af 102, BUN/Creatinine Ratio 17.2, Glucose 90, Lactic Acid 1.5, Calcium 8.9, Troponin T High Sens 36 H D, NT pro BNP II 2433 H 03/01/25 05:20: Troponin T Hi Sens 2 Hr 34 H 03/01/25 06:53: Troponin T Hi Sens 4Hr 29 H Rhythm Strip Rhythm Strip: Sinus Tach Rate: 140 Ectopy: PVC(s) Imaging Radiology Impression Chest CTA 03/01/25 02:30 IMPRESSION: Mild increase in the size of the left upper lobe/left hilar mass. Increased left pleural effusion. Increased left basilar atelectasis/consolidation. Increased cavitation in the left lower lobe. Unchanged mediastinal and hilar lymphadenopathy. Mild increase in the size and number of multiple pulmonary nodules with the largest measuring 16 mm on the current exam (previously 13 mm). Unchanged upper abdominal lymphadenopathy. Unchanged left axillary lymphadenopathy. Unchanged diffuse spondylosis. Unchanged multifocal compression of the left pulmonary artery and its branches. No CT evidence of pulmonary embolus or aortic dissection. Reading Location: [place] [id number] Assessment & Plan Assessment/Plan (1) Obstructive pneumonia: (2) Pleural effusion: (3) Metastatic cancer to lung: PLAN: Plan # Shortness of breath suspect secondary to postobstructive pneumonia and fluid overload on top of stage IV metastatic lung cancer -Imaging: CTA obtained and showed mild increase in size of patient's left upper lobe/left hilar mass with increased cavitation consolidation as well as left pleural effusion, mild increase in size and number of pulmonary nodules, unchanged multifocal compression of the left pulmonary artery and branches -Does have wet cough and elevated white count with left shift - Will treat with Unasyn and azithromycin - Given patient's tachycardia we will schedule ipratropium nebs and hold off on albuterol -Sputum culture if able, respiratory panel ordered -Urine antigens -Mucinex, I/S -Case management consult given patient needs oxygen or other needs on discharge -PT/OT - Patient was initially supposed [facility] be [facility] as [facility] his care there however there would not be a bed for at least 1 to 2 days so [facility] approved admission in [facility] facility. Discussed with patient that he has had progression of his lung cancer and that I can treat pneumonia and excess fluid but cannot treat the underlying cause of the problem and can only work on symptom control and patient verbalized his understanding, he is agreeable for admission at our facility and supportive care with plans to follow-up with [facility] - Patient reports he was following with oncology [facility] however they have now referred him to palliative care as they said that there is nothing else to do as he did not respond to multiple immunotherapies - Did discuss goals, patient still wants antibiotics, Lasix, symptomatic treatment as above but when discussing CODE STATUS and multiple options patient agreeable for DNR/DNI - Plan from his oncologist per pt was for outpatient palliative, patient at time my exam does not seem ready to discuss hospice yet - If patient does not improve or worsens would be appropriate to rediscuss palliative and hospice # Elevated pro BNP -Increased from previous, 2400 today up from 1100 in December -Daily weights, I's and O's -Check echo -Continue Lasix cautiously - Does have some compression of the left pulmonary artery branches but this is unchanged from December so while that could contribute suspect the fluid overload and elevated BNP is likely multifactorial -Did feel better after Lasix - Monitor on telemetry # Sinus tachycardia with arrhythmia -EKG with marked sinus arrhythmia -Will check TSH and magnesium -Echocardiogram ordered as above -Suspect that the tachycardia is largely compensatory with patient's poor reserve, tachypnea and underlying illness and that treating the tachycardia in and of itself would cause decompensation -Discussed this with patient -Treat underlying problems - Patient resting comfortably heart rate low 100s but if he is moving around in talking and more short of breath he will go up to 140s - Management as above - Patiently monitor on telemetry # Stage IV metastatic lung cancer -Failed 3 immunotherapies reportedly and is no longer on any treatment - Patient said [facility] to [facility] care as there is nothing else to do - He is interested in looking into other more specialized outpatient treatments but patient did endorse that his oncologist had no further plans for treatment and will be meeting with desktop publishing specialist - Patient was initially supposed to be transferred [place] but no bed available as above, in December patient had CT findings with complete atelectasis of left upper lobe from bronchial plugging from mucous or lung cancer in ED contacted [facility] To discuss possible transfer and they Refused transfer and did not think he was a good candidate for stenting and it was recommended to transfer to the [place] - Patient ended up leaving AMA - Given patient's progression suspect he has a poor prognosis, discussed this with patient - After discussing CODE STATUS he is DNR/DNI however wants everything else done as above - Discussed that any treatment here would be symptom management for pneumonia and fluid overload and cannot improve the inherent underlying problem and patient verbalized his understanding and would like to be admitted to our institution to try to improve the symptoms as above - Given terminal stage IV lung cancer thought to no longer be a candidate for treatment by his oncologist recently referred to outpatient palliative care do think it is reasonable to admit at our hospital for symptom management #Hyponatremia -Sodium 126 up from 120 in December - May be due to patient's lung cancer +/- component of fluid overload - Received Lasix - Repeat in a.m. - Check TSH #Elevated troponin - Troponin slightly elevated, initial is 36 which down trended to 29 -Suspect that this is all secondary to patient's fluid overload and pneumonia #DVT ppx: SCDs Kavita Myles MD Time spent in the patient's overall evaluation,decision-making process, review of diagnostic data, adjustment of management, discussion with other providers, nursing nursing and ancillary staff involved in patient's care documentation, 77 Minutes CODE status: Discussed CODE status at length including difference between FULL code, DNR-CCA, and DNR-CC status. Following discussions about the differences in these status, requested DNR/DNI. Advanced Care Planning Face to Face Time: 18 minutes. Charges/Coding Multi Select Codes Visit Charges Visit Charges: 27601 Init Hosp L3 Hospitalists' Procedures Procedures: 82879 Advncd Care Plan 30 Min
--- OUTSIDE RECORDS SUMMARY | 2025-03-01 19:03 | XMS RPT_ITS | CCD ---
Author Organization [facility] health Partnership [facility] Care Team Providers Care Central Processing Tech Name Role Phone YEN MILES Admitting Unavailable BETSY VAZQUEZ Attending Unavailable SANDRINE EARL [place] Primary [facility] Ned España DO Emergency Provider [place] Primary Care Unavailable Kassi Baker Attending Unavailable [facility] Care Unavailable Ned Harmon Attending Unavailable Medications Current Medications Medication Drug Class(es) Dates Sig (Normalized) Sig (Original) [place] (Unobtainable) (1 source) Start: 01-04-2025 [place] (Unobtainable) Active January 04, 2025 12:00am Completed/Discontinued [...] Anemia, unspecified; Translations: [Anemia, unspecified type] Onset: 06-11-2025 Episodic Other lower respiratory disease (2 sources) Shortness of breath; Translations: [Shortness of breath] Onset: 12-09-2024 Episodic Other lower respiratory disease (1 source) Dyspnea; Translations: [Shortness of breath] 01-04-2025 Episodic Other nervous system disorders (1 source) Ataxia; 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, [address] Calcium [Mass/Vol] 8.9 mg/dL Normal 7.6-11.0 [facility] Comment on above: Performed By: #### L 500.2500, L100.0100 ####[facility] [address] [place], [address] Chloride [Moles/Vol] 90 mmol/L Low 98-108 [facility] Comment on above: Performed By: #### L 500.2500, L100.0100 ####[facility] [address] [place], [address] CO2 [Moles/Vol] 22.6 mmol/L Normal 21.0-32.0 [facility] Comment on above: Performed By: #### L 500.2500, L100.0100 ####[facility] [address] [place], [address] Creatinine [Mass/Vol] 0.65 mg/dL Low 0.70-1.20 [facility] Comment on above: Performed By: #### L 500.2500, L100.0100 ####[facility] [address] [place], [address] ECRCL 89.24 ml/min Normal 50-250 [facility] Comment on above: Performed By: #### L 500.2500, L100.0100 ####[facility] [address] [place], [address] GAP 14 Normal 5-15 [facility] Comment on above: Performed By: #### L 500.2500, L100.0100 ####[facility] [address] [place], [address] GFR/1.73 sq M.predicted among non-blacks MDRD (S/P/Bld) [Vol rate/Area] 102 mL/min/{1.73_m2} Normal >60 [facility] Comment on above: Result Comment: mL/m in/1.73m2 CKD-EPI Creatinine Equation (2020) Performed By: #### L 500.2500, L100.0100 ####[facility] [address] [place], [address] Glucose [Mass/Vol] 90 mg/dL Normal 70-99 [facility] Comment on above: Performed By: #### L 500.2500, L100.0100 ####[facility] [address] [place], [address] Potassium [Moles/Vol] 4.2 mmol/L Normal 3.3-5.1 [facility] Comment on above: Performed By: #### L 500.2500, L100.0100 ####[facility] [address] [place], [address] Sodium [Moles/Vol] 126 mmol/L Low 133-145 [facility] Comment on above: Performed By: #### L 500.2500, L100.0100 ####[facility] [address] [place], [address] Urea nitrogen [Mass/Vol] 11 mg/dL Normal 4-19 [facility] Comment on above: Performed By: #### L 500.2500, L100.0100 ####[facility] [address] [place], [address] CBC W/Diff, Automatedon 09-0 1-2024 Absolute Lymph 0.69 X10 3/uL Low 0.83-4.51 [facility] Comment on above: Performed By: #### L 500.2500, L100.0100 ####[facility] [address] [place], [address] Absolute Neut 11.7 X10 3/uL High 2.0-7.7 [facility] Comment on above: Performed By: #### L 500.2500, L100.0100 ####[facility] [address] [place], [address] Basophils/100 WBC (Bld) 0.4 % Normal 0-1 [facility] Comment on above: Performed By: #### L 500.2500, L100.0100 ####[facility] [address] [place], [address] Eosinophils/100 WBC (Bld) 0.0 % Normal 0-5 [facility] Comment on above: Performed By: #### L 500.2500, L100.0100 ####[facility] [address] [place], [address] Erythrocyte distribution width (RBC) [Ratio] 15.4 % High 11.6-14.6 [facility] Comment on above: Performed By: #### L 500.2500, L100.0100 ####[facility] [address] [place], [address] Hematocrit (Bld) [Volume fraction] 31.5 % Low 40-54 [facility] Comment on above: Performed By: #### L 500.2500, L100.0100 ####[facility] [address] [place], [address] Hemoglobin (Bld) [Mass/Vol] 10.2 g/dL Low 13.0-16.5 [facility] Comment on above: Performed By: #### L 500.2500, L100.0100 ####[facility] [address] [place], [address] IG% 4.700 High 0.0-0.9 [facility] Comment on above: Result Comment: IG% - Immature Granulocytes (promyelocytes, myelocytes and metamyelocytes) > 1% indicates that a LEFT SHIFT is Present. Performed By: #### L 500.2500, L100.0100 ####[facility] [address] [place], [address] Lymphocytes/100 WBC (Bld) 4.8 % Low 19-41 [facility] Comment on above: Performed By: #### L 500.2500, L100.0100 ####[facility] [address] [place], [address] MCH (RBC) [Entitic mass] 27.1 pg Normal 27.0-32.0 [facility] Comment on above: Performed By: #### L 500.2500, L100.0100 ####[facility] [address] [place], [address] MCHC (RBC) [Mass/Vol] 32.4 g/dL Normal 32-36 [facility] Comment on above: Performed By: #### L 500.2500, L100.0100 ####[facility] [address] [place], [address] MCV (RBC) [Entitic vol] 83.8 fL Normal 80-94 [facility] Comment on above: Performed By: #### L 500.2500, L100.0100 ####[facility] [address] [place], [address] Monocytes/100 WBC (Bld) 8.9 % Normal 0-10 [facility] Comment on above: Performed By: #### L 500.2500, L100.0100 ####[facility] [address] [place], [address] Neutrophils/100 WBC (Bld) 81.2 % High 47-70 [facility] Comment on above: Performed By: #### L 500.2500, L100.0100 ####[facility] [address] [place], [address] Nucleated RBC (Bld) [#/Vol] 0 10*3/uL Normal 0-5 [facility] Comment on above: Performed By: #### L 500.2500, L100.0100 ####[facility] [address] [place], [address] Platelet mean volume (Bld) [Entitic vol] 9.4 fL Normal 6.2-12.0 [facility] Comment on above: Performed By: #### L 500.2500, L100.0100 ####[facility] [address] [place], [address] Platelets (Bld) [#/Vol] 459 10*3/uL High 150-450 [facility] Comment on above: Performed By: #### L 500.2500, L100.0100 ####[facility] [address] [place], [address] RBC (Bld) [#/Vol] 3.76 10*6/uL Low 4.6-6.2 [facility] Comment on above: Performed By: #### L 500.2500, L100.0100 ####[facility] [address] [place], [address] RDW SD 47.4 fl High 35.1-43.9 [facility] Comment on above: Performed By: #### L 500.2500, L100.0100 ####[facility] [address] [place], [address] WBC (Bld) [#/Vol] 14.4 10*3/uL High 4.4-11.0 [facility] Comment on above: Performed By: #### L 500.2500, L100.0100 ####[facility] [address] [place], [address] CTA Chest W/WO Contraston CTA Chest W/WO Contrast [facility] Imaging Services [address] [place] [address] CTA Chest W/WO Contrast MR#: [id number] Acct: [id number] Name: CAROLINA CHENEY Rep #: [id number] : 1955 M 69 From: José Manuel tesfaye MD PCP: [facility] Status: PRE ER Study: CTA Chest W/WO Contrast Date of Exam: 03/01/25 Exam# [id number] Ordering Dr: Kassi Baker DO PROCEDURE: CTA CHEST W/WO CONTRAST 03/01/2025 REASON FOR EXAM: SOB, HX LUNG CANCER, EDEMA TECHNIQUE: Procedure Code: CTCTACHWW Modality: CT Procedure: CTA CHEST W/WO CONTRAST Multiplanar Sagittal and Coronal images were obtained. CONTRAST: Isovue-370 VOLUME: 100 mL One or more dose reduction techniques were used (e.g., Automated exposure control, adjustment of the mA and/or kV according to patient size, use of iterative reconstruction technique). RADIATION DOSE SUMMARY: CTDlvol: 11.11 mGy DLP: 449 mGycm COMPARISON: CT scan on 01/04/2025. FINDINGS: Mild increase in the size of the left upper lobe/left hilar mass. Increased left pleural effusion. Increased left basilar atelectasis. Increased cavitation in the left lower lobe. Unchanged mediastinal and hilar lymphadenopathy. Mild increase in the size and number of multiple pulmonary nodules with the largest measuring 16 mm on the current exam (previously 13 mm). Unchanged upper abdominal lymphadenopathy. Unchanged left axillary lymphadenopathy. Unchanged diffuse spondylosis. Normal enhancement of the main pulmonary artery and right and left pulmonary arteries. Normal enhancement of the bilateral peripheral pulmonary arteries. There is no demonstrated pulmonary embolism. Normal thoracic aorta and visualized great vessels. There is no demonstrated aortic dissection. Normal heart and pericardium. Normal visualized trachea and bronchi. CT/CTA Chest W/WO Contrast IMPRESSION: Mild increase in the size of the left upper lobe/left hilar mass. Increased left pleural effusion. Increased left basilar atelectasis/consolida tion. Increased cavitation in the left lower lobe. Unchanged mediastinal and hilar lymphadenopathy. Mild increase in the size and number of multiple pulmonary nodules with the largest measuring 16 mm on the current exam (previously 13 mm). Unchanged upper abdominal lymphadenopathy. Unchanged left axillary lymphadenopathy. Unchanged diffuse spondylosis. Unchanged multifocal compression of the left pulmonary artery and its branches. No CT evidence of pulmonary embolus or aortic dissection. Reading Location: [facility] CC: Dr. Kassi Baker DO; [facility] [employer]: Signed Normal [facility] Emergency Department Summary on 03-01-2025 Emergency Department Summary [facility] Medical Records Department [address] [place] [address] Emergency Department Summary 03/01/25 MR#: [id number] Acct: [id number] Name: CAROLINA CHENEY Rep #: [id number] : 1955 69 From: Kassi Baker DO PCP: [facility] Status:REG ER Location: ED HPI History of Present Illness Chief Complaint: Shortness of Breath Informant: patient Narrative Narrative: Patient is a 69-year-old male with history of stage IV lung cancer (currently not receiving any treatment because he was not responding to immunotherapy) and symptomatic anemia presenting with worsening shortness of breath. Patient states has not worsened shortness of breath for the past 3 days. He states is normal for him to struggle with his breathing in the morning but usually throughout the day he is okay. In those of the past 3 days he never started to feel better. He sometimes has a mild wheeze when he has a coughing fit. Also notes in the past 2 weeks his increased swelling of his lower extremities. Did have heart failure once before but it seemed to be associated with anemia. He denies any anticoagulation. Denies any show DVT or PE. Denies any fever or chills. Denies any chest pain. Came in for further evaluation. States that he has not really been sleeping the past 2 days because he is afraid that he will not wake up. States he receives his care through the [place] Medical History Lung cancer Home Medications ???Medication ???Instructions ???Recorded ???Last Taken ???Type Unobtainable 01/04/25 Unknown History Allergy/AdvReac Type Severity Reaction Status Date / Time No Known Allergies Allergy Verified 01/04/25 06:26 Social History Smoking Status: Former smoker ROS ROS ED Constitutional Constitutional ED: Denies chills or fever(s) ENT ENT ED: Denies rhinorrhea or sore throat Cardiovascular Cardiovascular: Reports other Details: Leg swelling ; Denies chest pain or palpitations Respiratory/Chest Respiratory/Chest: Reports cough, dyspnea and dyspnea on exertion; Denies sputum Gastrointestinal Gastrointestinal: Denies abdominal pain or vomiting Musculoskeletal Musculoskeletal: Denies arthralgias or myalgias Integumentary Denies rash Neurologic Neurologic: Reports weakness Psychiatric Psychiatric: Reports anxiety Hematologic/Lymphatic Hematologic/Lymphatic : Denies easy bleeding or easy bruising EXAM Physical Exam Const Vital Signs: 03/01/25 01:34 03/01/25 01:40 03/01/25 02:43 Temperature 98.4 F 98.4 F Temperature Source Axillary Axillary Pulse Rate 120 H 96 Respiratory Rate 30 H 20 H Respiratory Effort Short of Breath Labored Respiratory Depth Shallow Respiratory Pattern Tachypnea Blood Pressure 124/100 H 118/96 H Blood Pressure Mean 108 103 Pulse Ox 95 97 Oxygen Delivery Method Room Air Nasal Cannula Nasal Cannula Oxygen Flow Rate (L/min) 2 2 03/01/25 02:43 03/01/25 02:55 03/01/25 03:09 Temperature 98.4 F Temperature Source Oral Pulse Rate 80 92 Respiratory Rate 14 18 Respiratory Effort Respiratory Depth Respiratory Pattern Blood Pressure 106/92 H Blood Pressure Mean 96 Pulse Ox 97 97 Oxygen Delivery Method Nasal Cannula Oxygen Flow Rate (L/min) 2 03/01/25 04:06 03/01/25 05:00 03/01/25 06:10 Temperature 98.6 F 98 F Temperature Source Oral Temporal Pulse Rate 122 H 107 H 129 H Respiratory Rate 15 18 16 Respiratory Effort Respiratory Depth Respiratory Pattern Blood Pressure 119/83 H 120/59 L Blood Pressure Mean 95 79 Pulse Ox 100 100 99 Oxygen Delivery Method Oxygen Flow Rate (L/min) 03/01/25 07:03 03/01/25 07:10 Temperature 97.8 F Temperature Source Oral Pulse Rate 111 H 121 H Respiratory Rate 19 H 19 H Respiratory Effort Respiratory Depth Respiratory Pattern Blood Pressure 102/82 H 102/82 H Blood Pressure Mean 88 88 Pulse Ox 98 100 Oxygen Delivery Method Nasal Cannula Nasal Cannula Oxygen Flow Rate (L/min) 3 Positive well nourished and well developed Constitutional Narrative: Mildly ill-appearing General Appearance ED: well developed, NAD and pallor HEENT Reports moist mucous membranes atraumatic Eyes PERRL Neck supple Neck Narrative: Mild JVD present Resp Resp Narrative: Tachypneic. Diminished breath sounds on the left base. Auscultation: Negative for rhonchi or wheezes Cardio no murmurs Rate: tachycardic Rhythm: abnormal rhythm irregularly irregular GI non-tender and non-distended GI Narrative: Soft and reducible ventral hernia present. This is chronic for patient. No overlying redness or tendern (more content not included)... Normal [facility] L501.4021on 03-01-2025 Trop T High Sen 36 ng/L High <=22 [facility] Comment on above: Performed By: #### L 501.4021, L503.6005, L503.7505 ####[facility] [address] [place], [place], [address] Lactic Acidon 03-01-2025 Lactate [Moles/Vol] 1.5 mmol/L Normal 0.0-2.0 [facility] Comment on above: Order Comment: Y Performed By: #### L 501.4021, L503.6005, L503.7505 ####[facility] [address] [place], [place], [address] Pro- Brain NATRIURETIC PEPTI Kar 03-01-2025 Natriuretic peptide B (Bld) [Mass/Vol] 2433 pg/mL High <=900 [facility] Comment on above: Result Comment: Hear t Failure Unlikely: < 300 pg/mL Heart Failure Likely < 50 Years: > 450 pg/mL 50-75 Years: > 900 pg/mL >75 Years: > 1800 pg/mL Performed By: #### L 501.4021, L503.6005, L503.7505 ####[facility] [address] [place], [address] Troponin T HS 2 HRon 03-01- 025 Trop T High Sen 34 ng/L High <=22 [facility] Comment on above: Performed By: #### L 499.0042 #### [facility] [address] [place], [address] Troponin T HS 4 HRon 03-01- 025 Trop T High Sen 29 ng/L High <=22 [facility] Comment on above: Performed By: #### L 499.0042 #### [facility] [address] [place], [address] CBC W/Diff, Automatedon 12-30 PATH REV Reviewed Normal [facility] Comment on above: Result Comment: SEE REPORT IN PATIENT'S EMR AMENDED REPORT 01/20/25 1116 PATH REV previously reported as: October Performed By: #### L 501.4021, L300.3900, L500.4050, L300.4310, L503.6005, L100.0100, M200.1000 #### [facility] [address] [place], [address] Culture, Blood (WB)on 2024 CUB Blood cultures x2, from two different sites No growth in 5 days. Normal [facility] Comment on above: Performed By: #### L 501.4021, L300.3900, L500.4050, L300.4310, L503.6005, L100.0100, M200.1000 #### [facility] [address] [place], [address] Performed By: #### L 499.0042 #### [facility] [address] [place], [place], [address] Urine Cultureon 01-06-2025 URC Below infection level. Mixed Gram Positive Organisms [place] Count 1000-10,000 MIXC Mixed contaminants. Submit a new specimen if indicated. Normal [facility] Comment on above: Performed By: #### L 400.0001, M100.2200 ####[facility] [address] [place], [address] 12 Lead EKGon 01-04-2025 12 Lead EKG [facility] Cardiovascular Services [address] [place] [address] 12 Lead EKG 01/04/25 0636 MR#: [id number] Acct: [id number] Name: CAROLINA CHENEY Rep #: [id number] : 1955 69 From: Ramy Henderson MD [...] Sinus tachycardia Otherwise normal ECG Confirmed by RAMY HENDERSON MD ([id number]), technical writer and editor URIAH BUITRAGO ([id number]) on 01/05/2025 8:23:44 AM Referred By: Confirmed By: RAMY HENDERSON MD 01/05/25 08 Date Ramy Henderson MD CC: Dr. Ned Harmon DO; [facility] Signed Normal [facility] Abdomen/Pelvis W IV Cont ONL Yon 01-04-2025 Abdomen/Pelvis W IV Cont ONLY [facility] Imaging Services [address] [place] [address] Abdomen/Pelvis W IV Cont ONLY MR#: [id number] Acct: [id number] Name: CAROLINA CHENEY Rep #: [id number] : 1955 M 69 From: Carlos Bee MD PCP: [facility] Status: REG ER Study: Abdomen/Pelvis W IV Cont ONLY Date of Exam: Exam# [id number] Ordering Dr: Ned Harmon DO PROCEDURE: ABDOMEN/PELVIS [...] 4. Other findings as noted. Reading Location: [id number] CC: Dr. Ned Harmon, ; [facility] [employer]: Signed Normal [facility] Absolute lymphocyte countOrd ered By: Ned Harmon on 01-04-2025 Lymphocytes Auto (Unsp spec) [#/Vol] 0.43 10*3/uL Low 0.83-4.51 [facility] Absolute neutrophil countOrd ered By: Ned Harmon on 01-04-2025 Neutrophils (Bld) [#/Vol] 9.0 10*3/uL High 2.0-7.7 [facility] Activated partial thrombopla stin time (aPTT) in platelet poor plasma by coagulation aOrdered By: Ned Harmon on 01-04-2025 aPTT Coag (PPP) [Time] 35.7 s 24.1-36.2 [facility] Anion gap in Serum or Plasma Ordered By: Ned Harmon on 01-04-2025 Anion gap [Moles/Vol] 14 mmol/L 5-15 [facility] BUN/creatinine ratioOrdered By: Ned Harmon on 01-04-2025 Urea nitrogen/Creatinine [Mass ratio] 13.2 mg/mg 10-20 [facility] Bilirubin Test strip Ql (U)O rdered By: Ned Harmon on 01-04-2025 Bilirubin Ql (U) Negative Negative [facility] Bilirubin, totalOrdered By: Ned Harmon on 01-04-2025 Bilirubin [Mass/Vol] 0.88 mg/dL 0.00-1.30 [facility] Blood band neutrophil count as percentage of total leukocytesOrdered By: Ned Harmon on 01-04-2025 Band form neutrophils/100 WBC (Bld) 1 % 0-5 [facility] Blood eosinophils/100 leukoc ytesOrdered By: Ned Harmon on 01-04-2025 Eosinophils/100 WBC (Bld) 2 % 0-5 [facility] Blood lymphocytes/100 leukoc ytesOrdered By: Ned Harmon on 01-04-2025 Lymphocytes/100 WBC (Bld) 4 % Low 19-41 [facility] Blood metamyelocytes/100 judy kocytesOrdered By: Ned Harmon on 01-04-2025 Metamyelocytes/100 WBC (Bld) 4 % High 0-1 [facility] Blood monocytes/100 leukocyt esOrdered By: Ned Harmon on 01-04-2025 Monocytes/100 WBC (Bld) 6 % 0-10 [facility] Blood segmented neutrophils/ 100 leukocytesOrdered By: Ned Harmon on 01-04-2025 Segmented neutrophils/100 WBC (Bld) 83 % High 47-70 [facility] CTA Chest W/WO Contraston CTA Chest W/WO Contrast [facility] Imaging Services [facility] [place] [address] CTA Chest W/WO Contrast MR#: [id number] Acct: [id number] Name: CAROLINA CHENEY Rep #: [id number] : 1955 M 69 From: Wilfrido Wu DO PCP: [facility] Status: REG ER Study: CTA Chest W/WO Contrast Date of Exam: 01/04/25 Exam# [id number] Ordering Dr: Ned Harmon DO PROCEDURE: CTA [...] focal right lung pulmonary metastases Reading Location[facility] CC: Dr. Ned Harmon DO; [facility] [employer]: Signed Normal [facility] Carbon dioxide, total [Moles /volume] in Central venous bloodOrdered By: Ned Harmon on 01-04-2025 CO2 [Moles/Vol] 19.5 mmol/L Low 21.0-32.0 [facility] Chest PA and Lateralon 01-04 Chest PA and Lateral [facility] Imaging Services [address] [place] [address] Chest PA and Lateral MR#: [id number] Acct: [id number] Name: CAROLINA CHENEY Rep #: [id number] : 1955 M 69 From: Carlos Bee MD PCP: [facility] Status: [facility] ER Study: Chest PA and Lateral Date of Exam: 01/04/25 Exam# [id number] Ordering Dr: Ned Harmon DO ADDENDUM by [...] p.m. on January 04, 2025 Reading Location: BringrsEZEKIEL 01/04/25 9908 Date cc: Dr. Ned Harmon DO; [facility] * Signed PROCEDURE: CHEST PA AND [...] CT chest with IV contrast. Reading Location: [id number] CC: Dr. Ned Harmon DO; [facility] [employer]: Signed Normal [facility] Chloride assayOrdered By: Tomas Harmon on 01-04-2025 Chloride [Moles/Vol] 87 mmol/L Low 98-108 [facility] Comprehensive Metabolic Prof ilon 01-04-2025 Albumin [Mass/Vol] 3.1 g/dL Low 3.4-4.8 [facility] Comment on above: Performed By: #### L 501.4021, L300.3900, L500.4050, L300.4310, L503.6005, L100.0100, M200.1000 #### [facility] [address] [facility] [place], [address] Albumin/Globulin [Mass ratio] 0.9 {ratio} Normal 0.9-2.4 [facility] Comment on above: Performed By: #### L 501.4021, L300.3900, L500.4050, L300.4310, L503.6005, L100.0100, M200.1000 #### [facility] [address] [place], [address] ALK PHOS 81 U/L Normal 40-129 [facility] Comment on above: Performed By: #### L 501.4021, L300.3900, L500.4050, L300.4310, L503.6005, L100.0100, M200.1000 #### [facility] [address] [place], [address] ALT [Catalytic activity/Vol] 18 U/L Normal <=46 [facility] Comment on above: Performed By: #### L 501.4021, L300.3900, L500.4050, L300.4310, L503.6005, L100.0100, M200.1000 #### [facility] [address] [place], [address] AST [Catalytic activity/Vol] 49 U/L High <=37 [facility] Comment on above: Performed By: #### L 501.4021, L300.3900, L500.4050, L300.4310, L503.6005, L100.0100, M200.1000 #### [facility] [address] [place], [address] Bilirubin [Mass/Vol] 0.88 mg/dL Normal 0.00-1.30 [facility] Comment on above: Performed By: #### L 501.4021, L300.3900, L500.4050, L300.4310, L503.6005, L100.0100, M200.1000 #### [facility] [address] [place], [address] BUN/CRE 13.2 RATIO Normal 10-20 [facility] Comment on above: Performed By: #### L 501.4021, L300.3900, L500.4050, L300.4310, L503.6005, L100.0100, M200.1000 #### [facility] [address] [place], [address] Calcium [Mass/Vol] 8.5 mg/dL Normal 7.6-11.0 [facility] Comment on above: Performed By: #### L 501.4021, L300.3900, L500.4050, L300.4310, L503.6005, L100.0100, M200.1000 #### [facility] [address] [place], [address] Chloride [Moles/Vol] 87 mmol/L Low 98-108 [facility] Comment on above: Performed By: #### L 501.4021, L300.3900, L500.4050, L300.4310, L503.6005, L100.0100, M200.1000 #### [facility] [address] [place], [address] CO2 [Moles/Vol] 19.5 mmol/L Low 21.0-32.0 [facility] Comment on above: Performed By: #### L 501.4021, L300.3900, L500.4050, L300.4310, L503.6005, L100.0100, M200.1000 #### [facility] [address] [place], [address] Creatinine [Mass/Vol] 1.06 mg/dL Normal 0.70-1.20 [facility] Comment on above: Performed By: #### L 501.4021, L300.3900, L500.4050, L300.4310, L503.6005, L100.0100, M200.1000 #### [facility] [address] [place], [address] ECRCL 67.91 ml/min Normal 50-250 [facility] Comment on above: Performed By: #### L 501.4021, L300.3900, L500.4050, L300.4310, L503.6005, L100.0100, M200.1000 #### [facility] [address] [place], [address] GAP 14 Normal 5-15 [facility] Comment on above: Performed By: #### L 501.4021, L300.3900, L500.4050, L300.4310, L503.6005, L100.0100, M200.1000 #### [facility] [address] [place], [address] GFR/1.73 sq M.predicted among non-blacks MDRD (S/P/Bld) [Vol rate/Area] 76 mL/min/{1.73_m2} Normal >60 [facility] Comment on above: Result Comment: mL/m in/1.73m2 CKD-EPI Creatinine Equation (2020) Performed By: #### L 501.4021, L300.3900, L500.4050, L300.4310, L503.6005, L100.0100, M200.1000 #### [facility] [address] [place], [address] Globulin (S) [Mass/Vol] 3.4 g/dL Normal 2.2-4.2 [facility] Comment on above: Performed By: #### L 501.4021, L300.3900, L500.4050, L300.4310, L503.6005, L100.0100, M200.1000 #### [facility] [address] [place], [address] Glucose [Mass/Vol] 111 mg/dL High 70-99 [facility] Comment on above: Performed By: #### L 501.4021, L300.3900, L500.4050, L300.4310, L503.6005, L100.0100, M200.1000 #### [facility] [address] [place], [address] Potassium [Moles/Vol] 4.2 mmol/L Normal 3.3-5.1 [facility] Comment on above: Performed By: #### L 501.4021, L300.3900, L500.4050, L300.4310, L503.6005, L100.0100, M200.1000 #### [facility] [address] [place], [address] Sodium [Moles/Vol] 120 mmol/L Low 133-145 [facility] Comment on above: Performed By: #### L 501.4021, L300.3900, L500.4050, L300.4310, L503.6005, L100.0100, M200.1000 #### [facility] [address] [place], [address] T PROT 6.5 g/dL Normal 5.9-8.4 [facility] Comment on above: Performed By: #### L 501.4021, L300.3900, L500.4050, L300.4310, L503.6005, L100.0100, M200.1000 #### [facility] [address] [place], [address] Urea nitrogen [Mass/Vol] 14 mg/dL Normal 4-19 [facility] Comment on above: Performed By: #### L 501.4021, L300.3900, L500.4050, L300.4310, L503.6005, L100.0100, M200.1000 #### [facility] [address] [place], [address] Emergency Department Summary on 01-04-2025 Emergency Department Summary [facility] Medical Records Department [address] [place] [address] Emergency Department Summary 01/04/25 MR#: [id number] Acct: [id number] Name: NONICAROLINA Clair Rep #: [id number] : 1955 69 From: Ned Harmon DO PCP: [facility] Status:REG ER Location: ED ADDENDUM by Dr. Ned Harmon DO on 01/04/25 at 1328 Patient EKG reviewed showed sinus tachycardia with rate of 107 bpm. 01/04/25 1328 Cosigner Signature (if applicable): cc: [facility] * Signed HPI History of Present [...] he was at [facility] and there was admitted to [facility] About 2 weeks ago. He states that he will be sleeping and he will feel like he wakes up gasping for air having shortness of breath difficulty breathing therefore he came here for further evaluation management. Patient denies any travel denies any history of blood clots. [facility] Medical History Lung cancer Home Medications ???Medication [...] follow commands and that he was at [facility] year is 2024 Skin: Warm. Dry, intact [...] shortness of (more content not included)... Normal [facility] Erythrocyte distribution wid th ratioOrdered By: Ned Harmon on 01-04-2025 Erythrocyte distribution width (RBC) [Ratio] 17.5 % High 11.6-14.6 [facility] Erythrocyte distribution wid th standard deviationOrdered By: Ned Harmon on 01-04-2025 Erythrocyte distribution width (RBC) [Ratio] 58.1 fl High 35.1-43.9 [facility] Erythrocyte morphology asses smentOrdered By: Ned Harmon on 01-04-2025 RBC morphology finding Nom (Bld) NORM C+C NORMAL NORM C&C [facility] Glomerular filtration rate ( GFR) estimation/1.73 sq m using serum, plasma, or whole bOrdered By: Ned Harmon on 01-04-2025 GFR/1.73 sq M.predicted among non-blacks MDRD (S/P/Bld) [Vol rate/Area] 76 mL/min/{1.73_m2} >60 [facility] Comment on above: mL/min/1.73m2 CKD-EP I Creatinine Equation (2020) Hematocrit Auto (Bld) [Volum e fraction]Ordered By: Ned Harmon on 01-04-2025 Hematocrit (Bld) [Volume fraction] 23.8 % Low 40-54 [facility] Hemoglobin measurementOrdere d By: Ned Harmon on 01-04-2025 Hemoglobin (Bld) [Mass/Vol] 7.9 g/dL Low 13.0-16.5 [facility] International normalized rat io (INR) calculationOrdered By: Ned Harmon on 01-04-2025 INR Coag (Bld) [Relative time] 1.2 {INR} [facility] Ketones Test strip Ql (U)Ord ered By: Ned Harmon on 01-04-2025 Ketones Ql (U) 5 mg/dl High Negative [facility] L499.0042on 01-04-2025 Trop T High Sen 20 ng/L Normal <=22 [facility] Comment on above: Performed By: #### L 499.0042 ####[facility] [address] [place], [address] L499.0043on 01-04-2025 Trop T High Sen Normal <=22 [facility] Comment on above: Result Comment: NO S PECIMEN COLLECTED. PATIENT DEPARTED ED. Performed By: #### L 499.0043 ####[facility] [address] [place], [address] L501.4021on 01-04-2025 Trop T High Sen 22 ng/L Normal <=22 [facility] Comment on above: Performed By: #### L 501.4021, L300.3900, L500.4050, L300.4310, L503.6005, L100.0100, M200.1000 #### [facility] [address] [place], [address] L503.7505on 01-04-2025 Natriuretic peptide B (Bld) [Mass/Vol] 1141 pg/mL High <=900 [facility] Comment on above: Result Comment: Hear t Failure Unlikely: < 300 pg/mL Heart Failure Likely < 50 Years: > 450 pg/mL 50-75 Years: > 900 pg/mL >75 Years: > 1800 pg/mL Performed By: #### L 503.7505 ####[facility] [address] [place], [address] Laboratory - Chemistry and C hemistry - challengeOrdered By: Ned Harmon on 01-04-2025 AST [Catalytic activity/Vol] 49 U/L High <38 [facility] Lactic Acidon 01-04-2025 Lactate [Moles/Vol] 1.3 mmol/L Normal 0.0-2.0 [facility] Comment on above: Order Comment: Y Performed By: #### L 501.4021, L300.3900, L500.4050, L300.4310, L503.6005, L100.0100, M200.1000 #### [facility] [address] [place], [place], [address] Lactic acid measurementOrder ed By: Ned Harmon on 01-04-2025 Lactate [Moles/Vol] 1.3 mmol/L 0.0-2.0 [facility] MCV (mean corpuscular volume ) determinationOrdered By: Ned Harmon on 01-04-2025 MCV (RBC) [Entitic vol] 91.2 fL 80-94 [facility] Mean corpuscular hemoglobin (MCH) determinationOrdered By: Ned Harmon on 01-04-2025 MCH (RBC) [Entitic mass] 30.3 pg 27.0-32.0 [facility] Mean corpuscular hemoglobin concentration (MCHC) determinationOrdered By: Ned Harmon on 01-04-2025 MCHC (RBC) [Mass/Vol] 33.2 g/dL 32-36 [facility] Mean platelet volume determi nationOrdered By: Ned Harmon on 01-04-2025 Platelet mean volume (Bld) [Entitic vol] 9.5 fL 6.2-12.0 [facility] Microscopic analysis of urin e for red blood cells (RBC)Ordered By: Ned Harmon on 01-04-2025 Microscopic analysis of urine for red blood cells (RBC) 0-5 SEEN /hpf 0-5 [facility] Mucus LM Ql (Urine sed)Order ed By: Ned Harmon on 01-04-2025 Mucus Ql (Urine sed) 0 SEEN /hpf [facility] Natriuretic peptide.B prohor dada N-Terminal [Mass/volume] in Serum or PlasmaOrdered By: Ned Harmon on 01-04-2025 Natriuretic peptide.B prohormone N-Terminal [Mass/Vol] 1141 pg/mL High <900 [facility] Comment on above: Heart Failure Unlike ly: < 300 pg/mLHeart Failure Likely< 50 Years: > 450 pg/mL50-75 Years: > 900 pg/mL>75 Years: > 1800 pg/mL Nitrite Test strip Ql (U)Ord ered By: Ned Harmon on 01-04-2025 Nitrite Ql (U) Negative Negative [facility] Partial Thromboplast Timeon 01-04-2025 aPTT Coag (Bld) [Time] 35.7 s Normal 24.1-36.2 [facility] Comment on above: Performed By: #### L 501.4021, L300.3900, L500.4050, L300.4310, L503.6005, L100.0100, M200.1000 #### [facility] [address] [place], [address] Platelet countOrdered By: Tomas Harmon on 01-04-2025 Platelets (Bld) [#/Vol] 288 10*3/uL 150-450 [facility] Platelet estimateOrdered By: Ned Harmon on 01-04-2025 Platelets LM Ql (Bld) ADEQUATE ADEQ [facility] Potassium measurement (mass/ volume)Ordered By: Ned Harmon on 01-04-2025 Potassium (Unsp spec) [Mass/Vol] 4.2 mmol/L 3.3-5.1 [facility] Protein Test strip Ql (U)Ord ered By: Ned Harmon on 01-04-2025 Protein Ql (U) 30 mg/dl High Negative [facility] Prothrombin Time w/INRon INR Coag (PPP) [Relative time] 1.2 {INR} Normal [facility] Comment on above: Performed By: #### L 501.4021, L300.3900, L500.4050, L300.4310, L503.6005, L100.0100, M200.1000 #### [facility] [address] [place], [address] PT Coag (PPP) [Time] 14.9 s Normal 11.7-14.9 [facility] Comment on above: Performed By: #### L 501.4021, L300.3900, L500.4050, L300.4310, L503.6005, L100.0100, M200.1000 #### [facility] [address] [place], [address] Prothrombin timeOrdered By: Ned Harmon on 01-04-2025 PT Coag (PPP) [Time] 14.9 s 11.7-14.9 [facility] RBC Auto (Bld) [#/Vol]Ordere d By: Ned Harmon on 01-04-2025 RBC (Bld) [#/Vol] 2.61 10*6/uL Low 4.6-6.2 [facility] Review by pathologistOrdered By: Ned Harmon on 01-04-2025 Pathologist review Jani (Unsp spec) [Interp] May silvina [facility] Serum creatinine measurement (mass/volume)Ordered By: Ned Harmon on 01-04-2025 Creatinine [Mass/Vol] 1.06 mg/dL 0.70-1.20 [facility] Serum globulin measurementOr dered By: Ned Harmon on 01-04-2025 Globulin (S) [Mass/Vol] 3.4 g/dL 2.2-4.2 [facility] Serum glucose measurement (m ass/volume)Ordered By: Ned Harmon on 01-04-2025 Glucose [Mass/Vol] 111 mg/dL High 70-99 [facility] Serum or plasma alanine hein otransferase (ALT) measurementOrdered By: Ned Harmon on 01-04-2025 ALT [Catalytic activity/Vol] 18 U/L <47 [facility] Serum or plasma albumin vahe urement (mass/volume)Ordered By: Ned Harmon on 01-04-2025 Albumin [Mass/Vol] 3.1 g/dL Low 3.4-4.8 [facility] Serum or plasma albumin/glob ulin mass ratioOrdered By: Ned Harmon on 01-04-2025 Albumin/Globulin [Mass ratio] 0.9 {ratio} 0.9-2.4 [facility] Serum or plasma alkaline celio sphatase measurementOrdered By: Ned Harmon on 01-04-2025 ALP [Catalytic activity/Vol] 81 U/L 40-129 [facility] Serum or plasma calcium vahe urement (mass/volume)Ordered By: Ned Harmon on 01-04-2025 Calcium [Mass/Vol] 8.5 mg/dL 7.6-11.0 [facility] Serum or plasma urea nitroge n measurement (mass/volume)Ordered By: Ned Harmon on 01-04-2025 Urea nitrogen [Mass/Vol] 14 mg/dL 4-19 [facility] Sodium levelOrdered By: Em Harmon on 01-04-2025 Sodium [Moles/Vol] 120 mmol/L Low 133-145 [facility] Squamous epithelial cells de tection in urine sediment by light microscopyOrdered By: Ned Harmon on 01-04-2025 Epithelial cells.squamous LM Ql (Urine sed) 0-5 SEEN /hpf 0-5 [facility] Total cell countOrdered By: Ned Harmon on 01-04-2025 Cells counted Molgen (Bld/Tiss) [#] 100 MANUAL DIFF [facility] Total proteinOrdered By: Corona Harmon on 01-04-2025 Protein [Mass/Vol] 6.5 g/dL 5.9-8.4 [facility] Troponin T.cardiac [Mass/vol ume] in Serum or Plasma by High sensitivity methodOrdered By: Ned Harmon on 01-04-2025 Troponin T.cardiac High sensitivity method [Mass/Vol] 20 ng/L <22 [facility] Troponin T.cardiac High sensitivity method [Mass/Vol] 22 ng/L <22 [facility] Urinalysis, Completeon 01-04 BACTERIA RARE Normal None Seen [facility] Comment on above: Order Comment: EWA CTOR TO SPECIFY Performed By: #### L 400.0001, M100.2200 ####[facility] [address] [place], [address] EPI,SQUAMOUS 0-5 SEEN Normal 0-5 [facility] Comment on above: Order Comment: EWA CTOR TO SPECIFY Performed By: #### L 400.0001, M100.2200 ####[facility] [address] [place], [address] RBC 0-5 SEEN Normal 0-5 [facility] Comment on above: Order Comment: EWA CTOR TO SPECIFY Performed By: #### L 400.0001, M100.2200 ####[facility] [address] [place], [address] WBC 0-5 SEEN Normal 0-5 [facility] Comment on above: Order Comment: EWA CTOR TO SPECIFY Performed By: #### L 400.0001, M100.2200 ####[facility] [address] [place], [address] Mucus Ql (Urine sed) 0 SEEN Normal [facility] Comment on above: Order Comment: COLLE CTOR TO SPECIFY Performed By: #### L 400.0001, M100.2200 ####[facility] [address] [place], [address] Urine clarityOrdered By: Corona Harmon on 01-04-2025 Clarity (U) Clear Clear [facility] Urine color determinationOrd ered By: Ned Harmon on 01-04-2025 Color (U) Yellow Yellow [facility] Urine glucose detectionOrder ed By: Ned Harmon on 01-04-2025 Glucose Ql (U) Normal mg/dl Normal [facility] Urine leukocyte esterase det ection by dipstickOrdered By: Ned Harmon on 01-04-2025 Leukocyte esterase Test strip Ql (U) Negative Negative [facility] Urine pHOrdered By: Ned amezcua on 01-04-2025 pH (U) 6.0 [pH] 5.0 - 8.0 [facility] Urine sediment bacteria coun t by microscopy (number/high power field)Ordered By: Ned Harmon on 01-04-2025 Bacteria LM.HPF (Urine sed) [#/Area] RARE /hpf None Seen [facility] Urine specific gravity measu rementOrdered By: Ned Harmon on 01-04-2025 Specific gravity (U) [Rel density] 1.015 1.002-1.030 [facility] Urine urobilinogen measureme ntOrdered By: Ned Harmon on 01-04-2025 Urobilinogen Ql (U) Normal mg/dl Normal [facility] White blood cell (WBC) count Ordered By: Ned Harmon on 01-04-2025 WBC (Bld) [#/Vol] 10.7 10*3/uL 4.4-11.0 [facility] White blood cell countOrdere d By: Ned Harmon on 01-04-2025 White blood cell count 0-5 SEEN /hpf 0-5 [facility] CNPNon 12-25-2024 CNPN Normal [facility] CASE MANAGEMon 12-22-2024 CASE MANAGEM Normal [facility] CBC panel Auto (Bld)on 12-22 Erythrocyte distribution width (RBC) [Ratio] 22.9 % High 11.5-15.0 [facility] Comment on above: Order Comment: Speci men Type: BLOOD SPECIMENOrdering Facility: [facility] Address: [address] [place] [address] Performed By: #### 5 8410-2 ####[facility] LABORATORYCLIA [id number] [address] Hematocrit (Bld) [Volume fraction] 26.2 % Low 39.0-51.0 [facility] Comment on above: Order Comment: Speci men Type: BLOOD SPECIMENOrdering Facility: [facility] Address: [address] [place] [address] Performed By: #### 5 8410-2 ####[facility] LABORATORYCLIA [id number] [address] OF [facility] Hemoglobin (Bld) [Mass/Vol] 8.4 g/dL Low 13.0-17.0 [facility] Comment on above: Order Comment: Speci men Type: BLOOD SPECIMENOrdering Facility: [facility] Address: [address] [place] [address] Performed By: #### 5 8410-2 ####[facility] LABORATORYCLIA [id number] [address] STATES OF [facility] MCH (RBC) [Entitic mass] 31.1 pg Normal 26.0-34.0 [facility] Comment on above: Order Comment: Speci men Type: BLOOD SPECIMENOrdering Facility: [facility] Address: [address] [place] [address] Performed By: #### 5 8410-2 ####[facility] LABORATORYCLIA [id number] [address] MCHC (RBC) [Mass/Vol] 32.1 g/dL Normal 30.5-36.0 [facility] Comment on above: Order Comment: Speci men Type: BLOOD SPECIMENOrdering Facility: [facility] Address: [address] [place] [address] Performed By: #### 5 8410-2 ####[facility] LABORATORYCLIA [id number] [address] MCV (RBC) [Entitic vol] 97.0 fL Normal 80.0-100.0 [facility] Comment on above: Order Comment: Speci men Type: BLOOD SPECIMENOrdering Facility: [facility] Address: [address] [place] [address] Performed By: #### 5 8410-2 ####[facility] LABORATORYCLIA [id number] [address] Nucleated RBC (Bld) [#/Vol] 10*3/uL Normal <0.01 [facility] Comment on above: Order Comment: Speci men Type: BLOOD SPECIMENOrdering Facility: [facility] Address: [address] [place] [address] Performed By: #### 5 8410-2 ####[facility] LABORATORYCLIA [id number] [address] Platelet mean volume (Bld) [Entitic vol] 9.3 fL Normal 9.0-12.7 [facility] Comment on above: Order Comment: Speci men Type: BLOOD SPECIMENOrdering Facility: [facility] Address: [address] [place] [address] Performed By: #### 5 8410-2 ####[facility] LABORATORYCLIA [id number] [address] Platelets (Bld) [#/Vol] 522 10*3/uL High 150-400 [facility] Comment on above: Order Comment: Speci men Type: BLOOD SPECIMENOrdering Facility: [facility] Address: [address] [place] [address] Performed By: #### 5 8410-2 ####[facility] LABORATORYCLIA [id number] [address] OF [place] RBC (Bld) [#/Vol] 2.70 10*6/uL Low 4.20-6.00 [facility] Comment on above: Order Comment: Speci men Type: BLOOD SPECIMENOrdering Facility: [facility] Address: [address] [place] [address] Performed By: #### 5 8410-2 ####[facility] LABORATORYCLIA [id number] [place] [address] [place] [facility] WBC (Bld) [#/Vol] 18.97 10*3/uL High 3.70-11.00 [facility] Comment on above: Order Comment: Speci men Type: BLOOD SPECIMENOrdering Facility: [facility] Address: [address] [place] [address] Performed By: #### 5 8410-2 ####[facility] LABORATORYCLIA [id number] [address] OF [place] CNDSon 12-22-2024 CNDS Normal [facility] CONSULT PROGon 12-22-2024 CONSULT PROG Normal [facility] Comprehensive metabolic 2000 panelon 12-22-2024 Albumin [Mass/Vol] 3.2 g/dL Low 3.9-4.9 [facility] Comment on above: Order Comment: Speci men Type: BLOOD SPECIMENOrdering Facility: [facility] Address: [address] [place] [address] Performed By: #### 2 4323-8, 2777-1 ####[facility] LABORATORYCLIA [id number] [address] STATES [facility] ALP [Catalytic activity/Vol] 122 U/L High 38-113 [facility] Comment on above: Order Comment: Speci men Type: BLOOD SPECIMENOrdering Facility: [facility] Address: [address] [place] [address] Performed By: #### 2 4323-8, 2777-1 ####[facility] LABORATORYCLIA [id number] [address] [place] ALT With P-5'-P [Catalytic activity/Vol] 36 U/L Normal 10-54 [facility] Comment on above: Order Comment: Speci men Type: BLOOD SPECIMENOrdering Facility: [facility] Address: [address] [place] [address] Performed By: #### 2 4323-8, 2776-07 ####[facility] LABORATORYCLIA [id number] [address] STATES OF [facility] Anion gap [Moles/Vol] 11 mmol/L Normal 8-15 [facility] Comment on above: Order Comment: Speci men Type: BLOOD SPECIMENOrdering Facility: [facility] Address: [address] [place] [address] Performed By: #### 2 4323-8, 2776-07 ####[facility] LABORATORYCLIA [id number] [address] STATES OF [facility] AST With P-5'-P [Catalytic activity/Vol] 33 U/L Normal 14-40 [facility] Comment on above: Order Comment: Speci men Type: BLOOD SPECIMENOrdering Facility: [facility] Address: [address] [place] [address] Performed By: #### 2 4323-8, 2776-07 ####[facility] LABORATORYCLIA [id number] [address] [place] Bilirubin [Mass/Vol] 1.0 mg/dL Normal 0.2-1.3 [facility] Comment on above: Order Comment: Speci men Type: BLOOD SPECIMENOrdering Facility: [facility] Address: [address] [place] [address] Performed By: #### 2 4323-8, 2776-07 ####[facility] LABORATORYCLIA [id number] [address] [place] Calcium [Mass/Vol] 9.2 mg/dL Normal 8.5-10.2 [facility] Comment on above: Order Comment: Speci men Type: BLOOD SPECIMENOrdering Facility: [facility] Address: [address] [place] [address] Performed By: #### 2 4323-8, 2776-07 ####[facility] LABORATORYCLIA [id number] [place] [address] [place] Chloride [Moles/Vol] 102 mmol/L Normal 98-107 [facility] Comment on above: Order Comment: Speci men Type: BLOOD SPECIMENOrdering Facility: [facility] Address: [address] [place] [address] Performed By: #### 2 4323-8, 2777-1 ####[facility] LABORATORYCLIA [id number] [address] OF [facility] CO2 [Moles/Vol] 22 mmol/L Normal 22-30 [facility] Comment on above: Order Comment: Speci men Type: BLOOD SPECIMENOrdering Facility: [facility] Address: [address] [place] [address] Performed By: #### 2 4323-8, 2777-1 ####[facility] LABORATORYCLIA [id number] [address] Creatinine [Mass/Vol] 1.19 mg/dL Normal 0.73-1.22 [facility] Comment on above: Order Comment: Speci men Type: BLOOD SPECIMENOrdering Facility: [facility] Address: [address] [place] [address] Performed By: #### 2 4323-8, 2777-1 ####[facility] LABORATORYCLIA [id number] [address] Creatinine and Glomerular filtration rate.predicted panel (S/P/Bld) 66 mL/min/1.73m??? Normal >=60 [facility] Comment on above: Order Comment: Speci men Type: BLOOD SPECIMENOrdering Facility: [facility] Address: [address] [place] [address] Result Comment: Marcela mated Glomerular Filtration Rate [...] GFR. Performed By: #### 2 4323-8, 2776-07 ####[facility] LABORATORYCLIA [id number] [place] [address] [place] Glucose [Mass/Vol] 92 mg/dL Normal 74-99 [facility] Comment on above: Order Comment: Speci men Type: BLOOD SPECIMENOrdering Facility: [facility] Address: [address] [place] [address] Result Comment: The [place] Diabetes Association (ADA) provides guidance for cutoff [...] Standards of Medical Care in Diabetes 2016, [employer] Diabetes Association. Diabetes Care. 2016.39(Suppl 1). Performed By: #### 2 4323-8, 2776-07 ####[facility] LABORATORYCLIA [id number] [place] [address] [place] Potassium [Moles/Vol] 4.4 mmol/L Normal 3.7-5.1 [facility] Comment on above: Order Comment: Speci men Type: BLOOD SPECIMENOrdering Facility: [facility] Address: [address] [place] [address] Performed By: #### 2 4323-8, 2776-07 ####[facility] LABORATORYCLIA [id number] [place] [id number] [place] Protein [Mass/Vol] 6.9 g/dL Normal 6.3-8.0 [facility] Comment on above: Order Comment: Girishi men Type: BLOOD SPECIMENOrdering Facility: [facility] Address: [address] [place] [address] Performed By: #### 2 4323-8, 2776-07 ####[facility]ORATORYCLIA [id number] [place] [address] [place] Sodium [Moles/Vol] 135 mmol/L Low 136-144 [facility] Comment on above: Order Comment: Speci men Type: BLOOD SPECIMENOrdering Facility: [facility] Address: [address] [place] [address] Performed By: #### 2 4323-8, 2777-1 ####[facility]ORATORYCLIA [id number] [place] [address] [place] Urea nitrogen [Mass/Vol] 29 mg/dL High 9-24 [facility] Comment on above: Order Comment: Speci men Type: BLOOD SPECIMENOrdering Facility: [facility] Address: [address] [place] [address] Performed By: #### 2 4323-8, 2777-1 ####[facility]ORATORYCLIA [id number] [place] [address] [place] Phosphate SerPl-mCncon 12-22 Phosphate [Mass/Vol] 3.6 mg/dL Normal 2.7-4.8 [facility] Comment on above: Order Comment: Speci men Type: BLOOD SPECIMENOrdering Facility: [facility] Address: [address] [place] [address] Performed By: #### 2 4323-8, 2777-1 ####[facility]ORATORYCLIA [id number] [place] [address] [place] Albumin SerPl-mCncon 025 Albumin [Mass/Vol] 3.3 g/dL Low 3.9-4.9 [facility] Comment on above: Order Comment: Speci men Type: BLOOD SPECIMENOrdering Facility: [facility] Address: [address] [place] [address] Performed By: #### 2 4321-2, 65142-2, 1751-7, 2777-1 ####[facility]ORATORYCLIA [id number] [place] [address] [place] Basic metabolic 2000 panelon 12-21-2024 Anion gap [Moles/Vol] 13 mmol/L Normal 8-15 [facility] Comment on above: Order Comment: Speci men Type: BLOOD SPECIMENOrdering Facility: [facility] Address: [address] [place] [address] Performed By: #### 2 4321-2, 29764-2, 1750-12, 2776-1 ####[facility]ORATORYCLIA [id number] [place] [address] [place] Calcium [Mass/Vol] 9.3 mg/dL Normal 8.5-10.2 [facility] Comment on above: Order Comment: Speci men Type: BLOOD SPECIMENOrdering Facility: [facility] Address: [address] [place] [address] Performed By: #### 2 4321-2, , 1750-12, 2776- ####[facility]ORATORYCLIA [id number] [place] [address] [place] Chloride [Moles/Vol] 100 mmol/L Normal 98-107 [facility] Comment on above: Order Comment: Speci men Type: BLOOD SPECIMENOrdering Facility: [facility] Address: [address] [place] [address] Performed By: #### 2 4321-2, , 1750-12, 2776- ####[facility]ORATORYCLIA [id number] [place] [id number] [place] CO2 [Moles/Vol] 21 mmol/L Low 22-30 [facility] Comment on above: Order Comment: Speci men Type: BLOOD SPECIMENOrdering Facility: [facility] Address: [address] [place] [address] Performed By: #### 2 4321-2, 16546-4, 1750-12, 2776-1 ####[facility]ORATORYCLIA [id number] [place] [address] [place] Creatinine [Mass/Vol] 1.18 mg/dL Normal 0.73-1.22 [facility] Comment on above: Order Comment: Franchesca estrada Type: BLOOD SPECIMENOrdering Facility: [facility] Address: [address] [place] [address] Performed By: #### 2 4321-2, , 1750-12, 2776-07 ####[facility] CARMELCLIA [id number] [place] [address] [place] Creatinine and Glomerular filtration rate.predicted panel (S/P/Bld) 67 mL/min/1.73m??? Normal >=60 [facility] Comment on above: Order Comment: Franchesca sean Type: BLOOD SPECIMENOrdering Facility: [facility] Address: [address] [place] [address] Result Comment: Marcela mated Glomerular Filtration Rate [...] By: #### 2 4321-2, , 1750-12, 2776-07 ####[facility] LABORATORYIA [id number] [place] [id number] [place] Glucose [Mass/Vol] 80 mg/dL Normal 74-99 [facility] Comment on above: Order Comment: Franchesca estrada Type: BLOOD SPECIMENOrdering Facility: [facility] Address: [address] [place] [address] Result Comment: The [place] Diabetes Association (ADA) provides guidance for cutoff [...] Standards of Medical Care in Diabetes 2016, [place] Diabetes Association. Diabetes Care. 2016.39(Suppl 1). Performed By: #### 2 4321-2, 53334-7, 1750-12, 2776-1 ####[facility]ORATORYCLIA [id number] [place] [address] [place] Potassium [Moles/Vol] 4.6 mmol/L Normal 3.7-5.1 [facility] Comment on above: Order Comment: Franchesca estrada Type: BLOOD SPECIMENOrdering Facility: [facility] Address: [address] [place] [address] Performed By: #### 2 4321-2, , 1750-12, 277-1 ####[facility] LABORATORYCLIA [id number] [address] STATES OF [facility] Sodium [Moles/Vol] 134 mmol/L Low 136-144 [facility] Comment on above: Order Comment: Franchesca estrada Type: BLOOD SPECIMENOrdering Facility: [facility] Address: [address] [place] [address] Performed By: #### 2 4321-2, , 1750-12, 1 ####[facility]ORATORYCLIA [id number] [address] STATES [facility] Urea nitrogen [Mass/Vol] 32 mg/dL High 9-24 [facility] Comment on above: Order Comment: Franchesca estrada Type: BLOOD SPECIMENOrdering Facility: [facility] Address: [address] [place] [address] Performed By: #### 2 4321-2, , 1750-12, 2771 ####[facility] LABORATORYCLIA [id number] [place] [id number] [place] CASE MANAGEMon 12-21-2024 CASE MANAGEM Normal [facility] CBC panel Auto (Bld)on 12-21 Erythrocyte distribution width (RBC) [Ratio] 22.5 % High 11.5-15.0 [facility] Comment on above: Order Comment: Speci men Type: BLOOD SPECIMENOrdering Facility: [facility] Address: [address] [place] [address] Performed By: #### 5 8410-2 ####[facility] LABORATORYCLIA [id number] [address] OF [facility] Hematocrit (Bld) [Volume fraction] 26.6 % Low 39.0-51.0 [facility] Comment on above: Order Comment: Speci men Type: BLOOD SPECIMENOrdering Facility: [facility] Address: [address] [place] [address] Performed By: #### 5 8410-2 ####[facility] LABORATORYCLIA [id number] [address] OF [facility] Hemoglobin (Bld) [Mass/Vol] 8.3 g/dL Low 13.0-17.0 [facility] Comment on above: Order Comment: Speci men Type: BLOOD SPECIMENOrdering Facility: [facility] Address: [address] [place] [address] Performed By: #### 5 8410-2 ####[facility]ORATORYCLIA [id number] [address] MCH (RBC) [Entitic mass] 30.3 pg Normal 26.0-34.0 [facility] Comment on above: Order Comment: Speci men Type: BLOOD SPECIMENOrdering Facility: [facility] Address: [address] [place] [address] Performed By: #### 5 8410-2 ####[facility]ORATORYCLIA [id number] [address] [place] MCHC (RBC) [Mass/Vol] 31.2 g/dL Normal 30.5-36.0 [facility] Comment on above: Order Comment: Speci men Type: BLOOD SPECIMENOrdering Facility: [facility] Address: [address] [place] [address] Performed By: #### 5 8410-2 ####[facility]ORATORYCLIA [id number] [address] [place] MCV (RBC) [Entitic vol] 97.1 fL Normal 80.0-100.0 [facility] Comment on above: Order Comment: Speci men Type: BLOOD SPECIMENOrdering Facility: [facility] Address: [address] [place] [address] Performed By: #### 5 8410-2 ####[facility]ORATORYCLIA [id number] [address] [place] Nucleated RBC (Bld) [#/Vol] 10*3/uL Normal <0.01 [facility] Comment on above: Order Comment: Speci men Type: BLOOD SPECIMENOrdering Facility: [facility] Address: [facility] [place] [address] Performed By: #### 5 8410-2 ####[facility]ORATORYCLIA [id number] [address] [place] Platelet mean volume (Bld) [Entitic vol] 9.5 fL Normal 9.0-12.7 [facility] Comment on above: Order Comment: Speci men Type: BLOOD SPECIMENOrdering Facility: [facility] Address: [address] [place] [address] Performed By: #### 5 8410-2 ####[facility] LABORATORYCLIA [id number] [address] [place] Platelets (Bld) [#/Vol] 528 10*3/uL High 150-400 [facility] Comment on above: Order Comment: Speci men Type: BLOOD SPECIMENOrdering Facility: [facility] Address: [address] [place] [address] Performed By: #### 5 8410-2 ####[facility]ORATORYCLIA [id number] [address] [place] RBC (Bld) [#/Vol] 2.74 10*6/uL Low 4.20-6.00 [facility] Comment on above: Order Comment: Speci men Type: BLOOD SPECIMENOrdering Facility: [facility] Address: [address] [place] [address] Performed By: #### 5 8410-2 ####[facility]ORATORYCLIA [id number] [address] STATES OF [facility] WBC (Bld) [#/Vol] 18.15 10*3/uL High 3.70-11.00 [facility] Comment on above: Order Comment: Speci men Type: BLOOD SPECIMENOrdering Facility: [facility] Address: [address] [place] [address] Performed By: #### 5 8410-2 ####[facility]ORATORYCLIA [id number] [address] [place] Haptoglob SerPl-mCncon 12-21 Haptoglobin [Mass/Vol] 176 mg/dL Normal 31-238 [facility] Comment on above: Order Comment: Speci men Type: BLOOD SPECIMENOrdering Facility: [facility] Address: [address] [place] [address] Performed By: #### 4 542-7, 2532-0 ####[facility] CARMELCLIA [id number] [address] [place] Hgb Bld-mCncon 12-21-2024 Hemoglobin (Bld) [Mass/Vol] 8.9 g/dL Low 13.0-17.0 [facility] Comment on above: Order Comment: Speci men Type: BLOOD SPECIMENOrdering Facility: [facility] Address: [address] [place] [address] Performed By: #### 7 18-7 ####[facility]ORATORYCLIA [id number] [place] [address] [place] LDH SerPl-cCncon 12-21-2024 LDH [Catalytic activity/Vol] 355 U/L High 135-225 [facility] Comment on above: Order Comment: Speci men Type: BLOOD SPECIMENOrdering Facility: [facility] Address: [address] [place] [address] Performed By: #### 4 542-7, 2532-0 ####[facility]ORATORYCLIA [id number] [place] [id number] [place] Magnesium SerPl-mCncon 12-21 Magnesium [Mass/Vol] 1.7 mg/dL Normal 1.7-2.3 [facility] Comment on above: Order Comment: Speci men Type: BLOOD SPECIMENOrdering Facility: [facility] Address: [address] [place] [address] Performed By: #### 2 4321-2, 40267-1, 1750-12, 2777-1 ####[facility]ORATORYCLIA [id number] [place] [address] [place] Phosphate SerPl-mCncon 12-21 Phosphate [Mass/Vol] 3.3 mg/dL Normal 2.7-4.8 [facility] Comment on above: Order Comment: Speci men Type: BLOOD SPECIMENOrdering Facility: [facility] Address: [address] [place] [address] Performed By: #### 2 4321-2, 15756-6, 1750-12, 2777-1 ####[facility]ORATORYCLIA [id number] [address] [place] Urinalysis complete panel (U )on 12-21-2024 Bilirubin Ql (U) Negative Normal Negative [facility] Comment on above: Order Comment: Speci men Type: URINE SPECIMENOrdering Facility: [facility] Address: [address] [place] [address] Performed By: #### 2 4356-8 ####[facility]ORATORYCLIA [id number] [place] [address] [place] Clarity (Unsp spec) Clear Normal Clear [facility] Comment on above: Order Comment: Speci men Type: URINE SPECIMENOrdering Facility: [facility] Address: [address] [place] [address] Performed By: #### 2 4356-8 ####[facility]ORATORYCLIA [id number] [address] [place] Color (U) Light Yellow Normal yellow [facility] Comment on above: Order Comment: Speci men Type: URINE SPECIMENOrdering Facility: [facility] Address: [address] [place] [address] Performed By: #### 2 4356-8 ####[facility] LABORATORYCLIA [id number] [address] [place] Glucose Test strip (U) [Mass/Vol] Negative Normal Trace, Negative [facility] Comment on above: Order Comment: Speci men Type: URINE SPECIMENOrdering Facility: [facility] Address: [address] [place] [address] Performed By: #### 2 4356-8 ####[facility] LABORATORYCLIA [id number] [address] [place] Hemoglobin Ql (U) Negative Normal Negative, Trace [facility] Comment on above: Order Comment: Speci men Type: URINE SPECIMENOrdering Facility: [facility] Address: [address] [place] [address] Performed By: #### 2 4356-8 ####[facility]ORATORYCLIA [id number] [place] [address] [place] Ketones Ql (U) Negative Normal Negative, Trace [facility] Comment on above: Order Comment: Speci men Type: URINE SPECIMENOrdering Facility: [facility] Address: [address] [place] [address] Performed By: #### 2 4356-8 ####[facility]ORATORYCLIA [id number] [address] [place] Leukocyte esterase Test strip Ql (U) Negative Normal Negative, 25 Judy/uL [facility] Comment on above: Order Comment: Speci men Type: URINE SPECIMENOrdering Facility: [facility] Address: [address] [place] [address] Performed By: #### 2 4356-8 ####[facility]ORATORYCLIA [id number] [place] [address] [place] Nitrite Ql (U) Negative Normal Negative [facility] Comment on above: Order Comment: Speci men Type: URINE SPECIMENOrdering Facility: [facility] Address: [address] [place] [address] Performed By: #### 2 4356-8 ####[facility] LABORATORYCLIA [id number] [address] STATES [facility] pH (U) 6.0 [pH] Normal 5.0-8.0 [facility] Comment on above: Order Comment: Speci men Type: URINE SPECIMENOrdering Facility: [facility] Address: [address] [place] [address] Performed By: #### 2 4356-8 ####[facility]ORATORYCLIA [id number] [address] [place] Protein (U) [Mass/Vol] Negative Normal Trace , Negative [facility] Comment on above: Order Comment: Speci men Type: URINE SPECIMENOrdering Facility: [facility] Address: [address] [place] [address] Performed By: #### 2 4356-8 ####[facility]ORATORYCLIA [id number] [address] STATES [facility] RBC LM.HPF (Urine sed) [#/Area] 0-3 /HPF Normal 0-3 /HPF [facility] Comment on above: Order Comment: Speci men Type: URINE SPECIMENOrdering Facility: [facility] Address: [address] [place] [address] Performed By: #### 2 4356-8 ####[facility]ORATORYCLIA [id number] [address] [place] [facility] Specific gravity (U) [Rel density] 1.006 Normal 1.005-1.030 [facility] Comment on above: Order Comment: Speci men Type: URINE SPECIMENOrdering Facility: [facility] Address: [address] [place] [address] Performed By: #### 2 4356-8 ####[facility]ORATORYCLIA [id number] [address] Urobilinogen Ql (U) Normal Normal Normal [facility] Comment on above: Order Comment: Speci men Type: URINE SPECIMENOrdering Facility: [facility] Address: [address] [place] [address] Performed By: #### 2 4356-8 ####[facility] LABORATORYCLIA [id number] [address] STATES OF [facility] WBC LM.HPF (Urine sed) [#/Area] 0-5 /HPF Normal 0-5 /HPF [facility] Comment on above: Order Comment: Speci men Type: URINE SPECIMENOrdering Facility: [facility] Address: [address] [place] [address] Performed By: #### 2 4356-8 ####[facility]ORATORYCLIA [id number] [place] [address] [place] Albumin SerPl-mCncon 025 Albumin [Mass/Vol] 3.1 g/dL Low 3.9-4.9 [facility] Comment on above: Order Comment: Speci men Type: BLOOD SPECIMENOrdering Facility: [facility] Address: [address] [place] [address] Performed By: #### 1 751-7, 06687-4, 2777-1 ####[facility]ORATORYCLIA [id number] [place] [address] [place] Basic metabolic 2000 panelon 12-20-2024 Anion gap [Moles/Vol] 12 mmol/L Normal 8-15 [facility] Comment on above: Order Comment: Speci men Type: BLOOD SPECIMENOrdering Facility: [facility] Address: [address] [place] [address] Performed By: #### 1 751-7, 43274-5, 2777-1 ####[facility]ORATORYCLIA [id number] [place] [address] [place] Calcium [Mass/Vol] 8.9 mg/dL Normal 8.5-10.2 [facility] Comment on above: Order Comment: Speci men Type: BLOOD SPECIMENOrdering Facility: [facility] Address: [address] [place] [address] Performed By: #### 1 751-7, 47513-7, 2777- ####[facility] LABORATORYCLIA [id number] [place] [address] [place] Chloride [Moles/Vol] 99 mmol/L Normal 98-107 [facility] Comment on above: Order Comment: Speci men Type: BLOOD SPECIMENOrdering Facility: [facility] Address: [address] [place] [address] Performed By: #### 1 751-7, 53056-0, 277- ####[facility]ORATORYCLIA [id number] [place] [id number] [place] CO2 [Moles/Vol] 21 mmol/L Low 22-30 [facility] Comment on above: Order Comment: Speci men Type: BLOOD SPECIMENOrdering Facility: [facility] Address: [address] [place] [address] Performed By: #### 1 751-7, 91310-5, 2776- ####[facility]ORATORYCLIA [id number] [address] [place] Creatinine [Mass/Vol] 1.18 mg/dL Normal 0.73-1.22 [facility] Comment on above: Order Comment: Speci men Type: BLOOD SPECIMENOrdering Facility: [facility] Address: [address] [place] [address] Performed By: #### 1 751-7, 69097-2, 27712-29 ####[facility]ORATORYCLIA [id number] [address] Creatinine and Glomerular filtration rate.predicted panel (S/P/Bld) 67 mL/min/1.73m??? Normal >=60 [facility] Comment on above: Order Comment: Speci men Type: BLOOD SPECIMENOrdering Facility: [facility] Address: [address] [place] [address] Result Comment: Marcela mated Glomerular Filtration Rate [...] actual GFR. Performed By: #### 1 751-7, 22828-8, 2776-07 ####[facility]ORATORYCLIA [id number] [place] [address] [place] Glucose [Mass/Vol] 83 mg/dL Normal 74-99 [facility] Comment on above: Order Comment: Specchioma men Type: BLOOD SPECIMENOrdering Facility: [facility] Address: [address] [place] [address] Result Comment: The [place] Diabetes Association (ADA) provides guidance for cutoff [...] Standards of Medical Care in Diabetes 2016, [employer]. Diabetes Care. 2016.39(Suppl 1). Performed By: #### 1 751-7, 13478-7, 2776-07 ####[facility]ORATORYCLIA [id number] [place] [address] [place] Potassium [Moles/Vol] 4.4 mmol/L Normal 3.7-5.1 [facility] Comment on above: Order Comment: Specchioma men Type: BLOOD SPECIMENOrdering Facility: [facility] Address: [address] [place] [id number] Performed By: #### 1 751-7, 94179-5, 2776-07 ####[facility]ORATORYCLIA [id number] [place] [address] [place] Sodium [Moles/Vol] 132 mmol/L Low 136-144 [facility] Comment on above: Order Comment: Speci men Type: BLOOD SPECIMENOrdering Facility: [facility] Address: [address] [place] [address] Performed By: #### 1 751-7, 25842-5, 2777- ####[facility] LABORATORYCLIA [id number] [address] [place] [facility] Urea nitrogen [Mass/Vol] 35 mg/dL High 9-24 [facility] Comment on above: Order Comment: Speci men Type: BLOOD SPECIMENOrdering Facility: [facility] Address: [address] [place] [address] Performed By: #### 1 751-7, 47514-9, 27712-29 ####[facility] LABORATORYCLIA [id number] [address] CBC panel Auto (Bld)on 12-20 Erythrocyte distribution width (RBC) [Ratio] 22.5 % High 11.5-15.0 [facility] Comment on above: Order Comment: Speci men Type: BLOOD SPECIMENOrdering Facility: [facility] Address: [address] [place] [address] Performed By: #### 7 18-7, 90822-4 ####[facility] LABORATORYCLIA [id number] 07 [address] [place] OF [facility] Hematocrit (Bld) [Volume fraction] 27.3 % Low 39.0-51.0 [facility] Comment on above: Order Comment: Speci men Type: BLOOD SPECIMENOrdering Facility: [facility] Address: [address] [place] [address] Performed By: #### 7 18-7, 54213-8 ####[facility] LABORATORYCLIA [id number] [address] MCH (RBC) [Entitic mass] 31.6 pg Normal 26.0-34.0 [facility] Comment on above: Order Comment: Speci men Type: BLOOD SPECIMENOrdering Facility: [facility] Address: [address] [place] [address] Performed By: #### 7 18-7, 61965-2 ####[facility] LABORATORYCLIA [id number] [address] [place] OF [facility] MCHC (RBC) [Mass/Vol] 31.7 g/dL Normal 30.5-36.0 [facility] Comment on above: Order Comment: Speci men Type: BLOOD SPECIMENOrdering Facility: [facility] Address: [address] [place] [address] Performed By: #### 7 18, 40138-5 ####[facility] LABORATORYCLIA [id number] [address] [place] MCV (RBC) [Entitic vol] 100.4 fL High 80.0-100.0 [facility] Comment on above: Order Comment: Speci men Type: BLOOD SPECIMENOrdering Facility: [facility] Address: [address] [place] [address] Performed By: #### 7 18, 11814-4 ####[facility] LABORATORYCLIA [id number] [address] [place] Nucleated RBC (Bld) [#/Vol] 10*3/uL Normal <0.01 [facility] Comment on above: Order Comment: Speci men Type: BLOOD SPECIMENOrdering Facility: [facility] Address: [address] [place] [address] Performed By: #### 7 18-, 25789-4 ####[facility] LABORATORYCLIA [id number] [address] Platelet mean volume (Bld) [Entitic vol] 10.1 fL Normal 9.0-12.7 [facility] Comment on above: Order Comment: Speci men Type: BLOOD SPECIMENOrdering Facility: [facility] Address: [address] [place] [address] Performed By: #### 7 187, 66332-0 ####[facility] LABORATORYCLIA [id number] [place] [address] [place] Platelets (Bld) [#/Vol] 552 10*3/uL High 150-400 [facility] Comment on above: Order Comment: Speci men Type: BLOOD SPECIMENOrdering Facility: [facility] Address: [address] [place] [address] Performed By: #### 7 18-7, 27487-6 ####[facility] LABORATORYCLIA [id number] [place] [address] [place] RBC (Bld) [#/Vol] 2.72 10*6/uL Low 4.20-6.00 [facility] Comment on above: Order Comment: Speci men Type: BLOOD SPECIMENOrdering Facility: [facility] Address: [address] [place] [address] Performed By: #### 7 18-7, 27547-0 ####[facility] LABORATORYCLIA [id number] [address] [place] OF [facility] WBC (Bld) [#/Vol] 19.97 10*3/uL High 3.70-11.00 [facility] Comment on above: Order Comment: Speci men Type: BLOOD SPECIMENOrdering Facility: [facility] Address: [address] [place] [address] Performed By: #### 7 18-7, 36235-7 ####[facility] LABORATORYCLIA [id number] [address] [place] Erythrocyte distribution width (RBC) [Ratio] 23.9 % High 11.5-15.0 [facility] Comment on above: Order Comment: Speci men Type: BLOOD SPECIMENOrdering Facility: [facility] Address: [address] [place] [address] Performed By: #### 5 8410-2 ####[facility] LABORATORYCLIA [id number] [address] Hematocrit (Bld) [Volume fraction] 20.6 % Low 39.0-51.0 [facility] Comment on above: Order Comment: Speci men Type: BLOOD SPECIMENOrdering Facility: [facility] Address: [address] [place] [address] Performed By: #### 5 8410-2 ####[facility] LABORATORYCLIA [id number] [address] Hemoglobin (Bld) [Mass/Vol] 6.7 g/dL Low 13.0-17.0 [facility] Comment on above: Order Comment: Speci men Type: BLOOD SPECIMENOrdering Facility: [facility] Address: [address] [place] [address] Performed By: #### 5 8410-2 ####[facility] LABORATORYCLIA [id number] [address] MCH (RBC) [Entitic mass] 31.0 pg Normal 26.0-34.0 [facility] Comment on above: Order Comment: Speci men Type: BLOOD SPECIMENOrdering Facility: [facility] Address: [address] [place] [address] Performed By: #### 5 8410-2 ####[facility] LABORATORYCLIA [id number] [address] MCHC (RBC) [Mass/Vol] 32.5 g/dL Normal 30.5-36.0 [facility] Comment on above: Order Comment: Speci men Type: BLOOD SPECIMENOrdering Facility: [facility] Address: [address] [place] [address] Performed By: #### 5 8410-2 ####[facility] LABORATORYCLIA [id number] [address] MCV (RBC) [Entitic vol] 95.4 fL Normal 80.0-100.0 [facility] Comment on above: Order Comment: Speci men Type: BLOOD SPECIMENOrdering Facility: [facility] Address: [address] [place] [address] Performed By: #### 5 8410-2 ####[facility] LABORATORYCLIA [id number] [address] Nucleated RBC (Bld) [#/Vol] 10*3/uL Normal <0.01 [facility] Comment on above: Order Comment: Speci men Type: BLOOD SPECIMENOrdering Facility: [facility] Address: [address] [place] [address] Performed By: #### 5 8410-2 ####[facility] LABORATORYCLIA [id number] [address] [place] Platelet mean volume (Bld) [Entitic vol] 9.2 fL Normal 9.0-12.7 [facility] Comment on above: Order Comment: Speci men Type: BLOOD SPECIMENOrdering Facility: [facility] Address: [address] [place] [address] Performed By: #### 5 8410-2 ####[facility] LABORATORYCLIA [id number] [address] [place] Platelets (Bld) [#/Vol] 470 10*3/uL High 150-400 [facility] Comment on above: Order Comment: Speci men Type: BLOOD SPECIMENOrdering Facility: [facility] Address: [address] [place] [address] Performed By: #### 5 8410-2 ####[facility] LABORATORYCLIA [id number] [place] [address] [place] RBC (Bld) [#/Vol] 2.16 10*6/uL Low 4.20-6.00 [facility] Comment on above: Order Comment: Speci men Type: BLOOD SPECIMENOrdering Facility: [facility] Address: [address] [place] [address] Performed By: #### 5 8410-2 ####[facility] LABORATORYCLIA [id number] [place] [address] [place] WBC (Bld) [#/Vol] 19.00 10*3/uL High 3.70-11.00 [facility] Comment on above: Order Comment: Speci men Type: BLOOD SPECIMENOrdering Facility: [facility] Address: [address] [place] [address] Performed By: #### 5 8410-2 ####[facility] LABORATORYCLIA [id number] [place] [address] [place] Haptoglob SerPl-mCncon 12-20 Haptoglobin [Mass/Vol] 130 mg/dL Normal 31-238 [facility] Comment on above: Order Comment: Speci men Type: BLOOD SPECIMENOrdering Facility: [facility] Address: [address] [place] [address] Performed By: #### 4 542-7, 2532-0 ####[facility] LABORATORYCLIA [id number] [place] [address] [place] Hgb Bld-mCncon 12-20-2024 Hemoglobin (Bld) [Mass/Vol] 7.2 g/dL Low 13.0-17.0 [facility] Comment on above: Order Comment: [facility] Type: BLOOD SPECIMENOrdering Facility: [facility] Address: [address] [place] [address] Performed By: #### 7 18-7, 28676-5 ####[facility] LABORATORYCLIA [id number] [place] [address] [place] LDH SerPl-cCncon 12-20-2024 LDH [Catalytic activity/Vol] 350 U/L High 135-225 [facility] Comment on above: Order Comment: Speci men Type: BLOOD SPECIMENOrdering Facility: [facility] Address: [address] [place] [address] Performed By: #### 4 542-7, 2532-0 ####[facility] LABORATORYCLIA [id number] [place] [address] [place] Phosphate SerPl-mCncon 12-20 Phosphate [Mass/Vol] 3.4 mg/dL Normal 2.7-4.8 [facility] Comment on above: Order Comment: Speci men Type: BLOOD SPECIMENOrdering Facility: [facility] Address: [address] [place] [address] Performed By: #### 1 751-7, 59388-5, 2777-1 ####[facility] LABORATORYCLIA [id number] [address] [place] TYPE + SCREENon 12-20-2024 ABO B Normal [facility] Comment on above: Order Comment: Speci men Type: BLOOD SPECIMENOrdering Facility: [facility] Address: [address] [place] [address] Performed By: #### T SCR ####[facility] BLOOD BANKCLIA [id number] [address] [place] Rh Nom (Bld) Positive Normal [facility] Comment on above: Order Comment: Speci men Type: BLOOD SPECIMENOrdering Facility: [facility] Address: [address] [place] [address] Performed By: #### T SCR ####[facility] BLOOD BANKCLIA [id number] [address] OF [facility] TYPE AND SCREEN EXPIRATION 12/23/2024 23:59 Normal [facility] Comment on above: Order Comment: Speci men Type: BLOOD SPECIMENOrdering Facility: [facility] Address: [address] [place] [address] Performed By: #### T SCR ####[facility] BLOOD BANKCLIA [id number] [place] [address] [place] Albumin SerPl-mCncon 025 Albumin [Mass/Vol] 3.1 g/dL Low 3.9-4.9 [facility] Comment on above: Order Comment: Speci men Type: BLOOD SPECIMENOrdering Facility: [facility] Address: [address] [place] [address] Performed By: #### 1 751-7, 24104-4, 29255-5 ####[facility] LABORATORYCLIA [id number] [place] [address] [place] Basic metabolic 2000 panelon 12-19-2024 Anion gap [Moles/Vol] 14 mmol/L Normal 8-15 [facility] Comment on above: Order Comment: Speci men Type: BLOOD SPECIMENOrdering Facility: [facility] Address: [address] [id number] Performed By: #### 1 751-7, , 21598-8 ####[facility] LABORATORYCLIA [id number] [place] [address] [place] Calcium [Mass/Vol] 9.2 mg/dL Normal 8.5-10.2 [facility] Comment on above: Order Comment: Speci men Type: BLOOD SPECIMENOrdering Facility: [facility] Address: [address] [place] [address] Performed By: #### 1 751-7, , 91072-7 ####[facility] LABORATORYCLIA [id number] [place] [address] [place] Chloride [Moles/Vol] 99 mmol/L Normal 98-107 [facility] Comment on above: Order Comment: Speci men Type: BLOOD SPECIMENOrdering Facility: [facility] Address: [address] [place] [address] Performed By: #### 1 751-7, , 29671-2 ####[facility] LABORATORYCLIA [id number] [place] [address] [place] CO2 [Moles/Vol] 22 mmol/L Normal 22-30 [facility] Comment on above: Order Comment: Speci men Type: BLOOD SPECIMENOrdering Facility: [facility] Address: [address] [place] [address] Performed By: #### 1 751-7, , 22983-1 ####[facility] LABORATORYCLIA [id number] [place] [id number] [place] Creatinine [Mass/Vol] 1.28 mg/dL High 0.73-1.22 [facility] Comment on above: Order Comment: Speci men Type: BLOOD SPECIMENOrdering Facility: [facility] Address: [address] [place] [address] Performed By: #### 1 751-7, , 10707-8 ####[facility] LABORATORYCLIA [id number] [place] [address] [place] Creatinine and Glomerular filtration rate.predicted panel (S/P/Bld) 61 mL/min/1.73m??? Normal >=60 [facility] Comment on above: Order Comment: Franchesca estrada Type: BLOOD SPECIMENOrdering Facility: [facility] Address: [address] [place] [address] Result Comment: Marcela mated Glomerular Filtration Rate [...] actual GFR. Performed By: #### 1 751-7, 90203-4, 96874-1 ####[facility] LABORATORYCLIA [id number] [place] [address] [place] Glucose [Mass/Vol] 90 mg/dL Normal 74-99 [facility] Comment on above: Order Comment: Franchesca estrada Type: BLOOD SPECIMENOrdering Facility: [facility] Address: [address] [place] [address] Result Comment: The [employer] Diabetes Association (ADA) provides guidance for cutoff [...] Standards of Medical Care in Diabetes 2016, [employer] Diabetes Association. Diabetes Care. 2016.39(Suppl 1). Performed By: #### 1 751-7, 26327-1, 64431-3 ####[facility] LABORATORYCLIA [id number] [place] [id number] [place] Potassium [Moles/Vol] 4.5 mmol/L Normal 3.7-5.1 [facility] Comment on above: Order Comment: Speci men Type: BLOOD SPECIMENOrdering Facility: [facility] Address: [address] [place] [address] Performed By: #### 1 751-7, , ####[facility] LABORATORYCLIA [id number] [address] STATES OF [facility] Sodium [Moles/Vol] 135 mmol/L Low 136-144 [facility] Comment on above: Order Comment: Speci men Type: BLOOD SPECIMENOrdering Facility: [facility] Address: [address] [place] [address] Performed By: #### 1 751-7, , ####[facility] LABORATORYCLIA [id number] [address] [place] Urea nitrogen [Mass/Vol] 33 mg/dL High 9-24 [facility] Comment on above: Order Comment: Speci men Type: BLOOD SPECIMENOrdering Facility: [facility] Address: [address] [place] [address] Performed By: #### 1 751-7, , ####[facility] LABORATORYCLIA [id number] [address] [place] OF [facility] CBC panel Auto (Bld)on 12-19 Erythrocyte distribution width (RBC) [Ratio] 23.0 % High 11.5-15.0 [facility] Comment on above: Order Comment: Speci men Type: BLOOD SPECIMENOrdering Facility: [facility] Address: [address] [place] [address] Performed By: #### 5 8410-2 ####[facility] LABORATORYCLIA [id number] [address] Hematocrit (Bld) [Volume fraction] 22.2 % Low 39.0-51.0 [facility] Comment on above: Order Comment: Speci men Type: BLOOD SPECIMENOrdering Facility: [facility] Address: [address] [place] [address] Performed By: #### 5 8410-2 ####[facility] LABORATORYCLIA [id number] [address] OF [facility] Hemoglobin (Bld) [Mass/Vol] 7.0 g/dL Low 13.0-17.0 [facility] Comment on above: Order Comment: Speci men Type: BLOOD SPECIMENOrdering Facility: [facility] Address: [address] [place] [address] Performed By: #### 5 8410-2 ####[facility] LABORATORYCLIA [id number] [address] MCH (RBC) [Entitic mass] 30.8 pg Normal 26.0-34.0 [facility] Comment on above: Order Comment: Speci men Type: BLOOD SPECIMENOrdering Facility: [facility] Address: [address] [place] [address] Performed By: #### 5 8410-2 ####[facility] LABORATORYCLIA [id number] [address] MCHC (RBC) [Mass/Vol] 31.5 g/dL Normal 30.5-36.0 [facility] Comment on above: Order Comment: Speci men Type: BLOOD SPECIMENOrdering Facility: [facility] Address: [address] [place] [address] Performed By: #### 5 8410-2 ####[facility] LABORATORYCLIA [id number] [address] MCV (RBC) [Entitic vol] 97.8 fL Normal 80.0-100.0 [facility] Comment on above: Order Comment: Speci men Type: BLOOD SPECIMENOrdering Facility: [facility] Address: [address] [place] [address] Performed By: #### 5 8410-2 ####[facility] LABORATORYCLIA [id number] [address] Nucleated RBC (Bld) [#/Vol] 10*3/uL Normal <0.01 [facility] Comment on above: Order Comment: Speci men Type: BLOOD SPECIMENOrdering Facility: [facility] Address: [facility] [place] [address] Performed By: #### 5 8410-2 ####[facility] LABORATORYCLIA [id number] [address] [place] Platelet mean volume (Bld) [Entitic vol] 9.5 fL Normal 9.0-12.7 [facility] Comment on above: Order Comment: Speci men Type: BLOOD SPECIMENOrdering Facility: [facility] Address: [address] [place] [address] Performed By: #### 5 8410-2 ####[facility] LABORATORYCLIA [id number] [address] [place] Platelets (Bld) [#/Vol] 491 10*3/uL High 150-400 [facility] Comment on above: Order Comment: Speci men Type: BLOOD SPECIMENOrdering Facility: [facility] Address: [address] [place] [address] Performed By: #### 5 8410-2 ####[facility] LABORATORYCLIA [id number] [place] [address] [place] RBC (Bld) [#/Vol] 2.27 10*6/uL Low 4.20-6.00 [facility] Comment on above: Order Comment: Speci men Type: BLOOD SPECIMENOrdering Facility: [facility] Address: [address] [place] [address] Performed By: #### 5 8410-2 ####[facility] LABORATORYCLIA [id number] [place] [address] [place] WBC (Bld) [#/Vol] 17.20 10*3/uL High 3.70-11.00 [facility] Comment on above: Order Comment: Speci men Type: BLOOD SPECIMENOrdering Facility: [facility] Address: [address] [place] [address] Performed By: #### 5 8410-2 ####[facility]CL[facility] [id number] [place] [address] [place] Haptoglob SerPl-mCncon 12-19 Haptoglobin [Mass/Vol] 97 mg/dL Normal 31-238 [facility] Comment on above: Order Comment: Speci men Type: BLOOD SPECIMENOrdering Facility: [facility] Address: [address] [place] [address] Performed By: #### 4 542-7, 2531-0 ####[facility] LABORATORYCLIA [id number] [place] [address] [place] LDH SerPl-cCncon 12-19-2024 LDH [Catalytic activity/Vol] 405 U/L High 135-225 [facility] Comment on above: Order Comment: Speci men Type: BLOOD SPECIMENOrdering Facility: [facility] Address: [address] [place] [address] Performed By: #### 4 542-7, 2531-0 ####[facility]ELCLIA [id number] [place] [address] [place] Magnesium SerPl-mCncon 12-19 Magnesium [Mass/Vol] 1.8 mg/dL Normal 1.7-2.3 [facility] Comment on above: Order Comment: Speci men Type: BLOOD SPECIMENOrdering Facility: [facility] Address: [address] [place] [address] Performed By: #### 1 751-7, 27544-8, 17277-9 ####[facility]ELCLIA [id number] [place] [address] [place] Basic metabolic 2000 panelon 12-18-2024 Anion gap [Moles/Vol] 14 mmol/L Normal 8-15 [facility] Comment on above: Order Comment: Speci men Type: BLOOD SPECIMENOrdering Facility: [facility] Address: [address] [place] [address] Performed By: #### 2 4321-2, 2532-0, 4542-7 ####[facility] LABORATORYCLIA [id number] [place] [address] [place] Calcium [Mass/Vol] 9.3 mg/dL Normal 8.5-10.2 [facility] Comment on above: Order Comment: Speci men Type: BLOOD SPECIMENOrdering Facility: [facility] Address: [address] [place] [address] Performed By: #### 2 4321-2, 2532-0, 7 ####[facility] LABORATORYCLIA [id number] [place] [address] [place] Chloride [Moles/Vol] 98 mmol/L Normal 98-107 [facility] Comment on above: Order Comment: Speci men Type: BLOOD SPECIMENOrdering Facility: [facility] Address: [address] [place] [address] Performed By: #### 2 4321-2, 2532-0, 7 ####[facility] LABORATORYCLIA [id number] [place] [address] [place] CO2 [Moles/Vol] 23 mmol/L Normal 22-30 [facility] Comment on above: Order Comment: Speci men Type: BLOOD SPECIMENOrdering Facility: [facility] Address: [address] [place] [address] Performed By: #### 2 4321-2, 2532-0, 7 ####[facility] LABORATORYCLIA [id number] [place] [address] [place] Creatinine [Mass/Vol] 1.48 mg/dL High 0.73-1.22 [facility] Comment on above: Order Comment: Speci men Type: BLOOD SPECIMENOrdering Facility: [facility] Address: [address] [place] [address] Performed By: #### 2 4321-2, 2532-0, 4547 ####[facility] LABORATORYCLIA [id number] [place], [place] [address] [place] [address] [place] Creatinine and Glomerular filtration rate.predicted panel (S/P/Bld) 51 mL/min/1.73m??? Low >=60 [facility] Comment on above: Order Comment: Franchesca estrada Type: BLOOD SPECIMENOrdering Facility: [facility] Address: [address] [id number] Result Comment: Marcela mated Glomerular Filtration Rate [...] Performed By: #### 2 4321-2, 2532-0, 454-7 ####[facility] LABORATORYCLIA [id number] [place] [address] [place] Glucose [Mass/Vol] 93 mg/dL Normal 74-99 [facility] Comment on above: Order Comment: Franchesca estrada Type: BLOOD SPECIMENOrdering Facility: [facility] Address: [address] [place] [address] Result Comment: The [place] Diabetes Association (ADA) provides guidance for cutoff [...] Standards of Medical Care in Diabetes 2016, [employer]. Diabetes Care. 2016.39(Suppl 1). Performed By: #### 2 4321-2, 2532-0, 7 ####[facility] LABORATORYCLIA [id number] [place] [address] [place] Potassium [Moles/Vol] 5.1 mmol/L Normal 3.7-5.1 [facility] Comment on above: Order Comment: Franchesca estrada Type: BLOOD SPECIMENOrdering Facility: [facility] Address: [address] [place] [address] Performed By: #### 2 4321-2, 2532-0, 4542-7 ####[facility] LABORATORYCLIA [id number] [place] [address] [place] [facility] Sodium [Moles/Vol] 135 mmol/L Low 136-144 [facility] Comment on above: Order Comment: Speci men Type: BLOOD SPECIMENOrdering Facility: [facility] Address: [address] [place] [address] Performed By: #### 2 4321-2, 2532-0, 454-7 ####[facility] LABORATORYCLIA [id number] [place], [place] [id number] [place] [address] [place] Urea nitrogen [Mass/Vol] 32 mg/dL High 9-24 [facility] Comment on above: Order Comment: Speci men Type: BLOOD SPECIMENOrdering Facility: [facility] Address: [address] [place] [address] Performed By: #### 2 4321-2, 2-0, 4547 ####[facility] LABORATORYCLIA [id number] [place], [place] [id number] [place] [address] [place] CASE MANAGEMon 12-18-2024 CASE MANAGEM Normal [facility] CBC panel Auto (Bld)on 12-18 Erythrocyte distribution width (RBC) [Ratio] 22.7 % High 11.5-15.0 [facility] Comment on above: Order Comment: Speci men Type: BLOOD SPECIMENOrdering Facility: [facility] [facility] Address: [address] [place] [address] Performed By: #### 5 8410-2 ####[facility] LABORATORYCLIA [id number] [address] [place] Hematocrit (Bld) [Volume fraction] 22.9 % Low 39.0-51.0 [facility] Comment on above: Order Comment: Speci men Type: BLOOD SPECIMENOrdering Facility: [facility] Address: [facility] [place] [address] Performed By: #### 5 8410-2 ####[facility] LABORATORYCLIA [id number] [address] OF [facility] Hemoglobin (Bld) [Mass/Vol] 7.2 g/dL Low 13.0-17.0 [facility] Comment on above: Order Comment: Speci men Type: BLOOD SPECIMENOrdering Facility: [facility] Address: [address] [place] [address] Performed By: #### 5 8410-2 ####[facility] LABORATORYCLIA [id number] [address] MCH (RBC) [Entitic mass] 30.3 pg Normal 26.0-34.0 [facility] Comment on above: Order Comment: Speci men Type: BLOOD SPECIMENOrdering Facility: [facility] Address: [address] [place] [address] Performed By: #### 5 8410-2 ####[facility] LABORATORYCLIA [id number] [address] MCHC (RBC) [Mass/Vol] 31.4 g/dL Normal 30.5-36.0 [facility] Comment on above: Order Comment: Speci men Type: BLOOD SPECIMENOrdering Facility: [facility] Address: [address] [place] [address] Performed By: #### 5 8410-2 ####[facility] LABORATORYCLIA [id number] [address] MCV (RBC) [Entitic vol] 96.2 fL Normal 80.0-100.0 [facility] Comment on above: Order Comment: Speci men Type: BLOOD SPECIMENOrdering Facility: [facility] Address: [address] [place] [address] Performed By: #### 5 8410-2 ####[facility] LABORATORYCLIA [id number] [address] Nucleated RBC (Bld) [#/Vol] 10*3/uL Normal <0.01 [facility] Comment on above: Order Comment: Speci men Type: BLOOD SPECIMENOrdering Facility: [facility] Address: [address] [place] [address] Performed By: #### 5 8410-2 ####[facility] LABORATORYCLIA [id number] [address] STATES [facility] Platelet mean volume (Bld) [Entitic vol] 9.7 fL Normal 9.0-12.7 [facility] Comment on above: Order Comment: Speci men Type: BLOOD SPECIMENOrdering Facility: [facility] Address: [address] [place] [address] Performed By: #### 5 8410-2 ####[facility] LABORATORYCLIA [id number] [address] [place] Platelets (Bld) [#/Vol] 478 10*3/uL High 150-400 [facility] Comment on above: Order Comment: Speci men Type: BLOOD SPECIMENOrdering Facility: [facility] Address: [address] [place] [address] Performed By: #### 5 8410-2 ####[facility] LABORATORYCLIA [id number] [address] [place] RBC (Bld) [#/Vol] 2.38 10*6/uL Low 4.20-6.00 [facility] Comment on above: Order Comment: Speci men Type: BLOOD SPECIMENOrdering Facility: [facility] Address: [address] [place] [address] Performed By: #### 5 8410-2 ####[facility] LABORATORYCLIA [id number] [address] [place] WBC (Bld) [#/Vol] 21.61 10*3/uL High 3.70-11.00 [facility] Comment on above: Order Comment: Speci men Type: BLOOD SPECIMENOrdering Facility: [facility] Address: [address] [place] [address] Performed By: #### 5 8410-2 ####[facility] LABORATORYCLIA [id number] [place] [address] [place] Haptoglob SerPl-mCncon 12-18 Haptoglobin [Mass/Vol] Normal [facility] Comment on above: Order Comment: Speci men Type: BLOOD SPECIMENOrdering Facility: [facility] Address: [address] [place] [address] Result Comment: Unab le to assay due to interference from hemolysis. Suggest reorder as clinically indicated. Performed By: #### 2 4321-2, 2532-0, 4542-7 ####[facility] LABORATORYCLIA [id number] [place] [address] [place] LDH SerPl-cCncon 12-18-2024 LDH [Catalytic activity/Vol] 495 U/L High 135-225 [facility] Comment on above: Order Comment: Specchioma estrada Type: BLOOD SPECIMENOrdering Facility: [facility] Address: [address] [place] [address] Performed By: #### 2 4321-2, 2532-0, 454-7 ####[facility] LABORATORYCLIA [id number] [place] [address] [place] Phosphate SerPl-mCncon 12-18 Phosphate [Mass/Vol] 3.4 mg/dL Normal 2.7-4.8 [facility] Comment on above: Order Comment: Speci men Type: BLOOD SPECIMENOrdering Facility: [facility] Address: [address] [place] [address] Performed By: #### 2 777-1 ####[facility] LABORATORYCLIA [id number] [place] [address] [place] CBC W Auto Differential pane l (Bld)on 12-17-2024 Anisocytosis Ql (Bld) Present Normal [facility] Comment on above: Order Comment: Speci men Type: BLOOD SPECIMENOrdering Facility: [facility] Address: [address] [place] [address] Performed By: #### 5 7021-8 ####[facility] LABORATORYCLIA [id number] [place] [address] [place] Basophils (Bld) [#/Vol] 0.00 10*3/uL Normal <0.11 [facility] Comment on above: Order Comment: Speci men Type: BLOOD SPECIMENOrdering Facility: [facility] Address: [address] [place] [address] Performed By: #### 5 7021-8 ####[facility]ORATORYCLIA [id number] [address] [place] [facility] Basophils/100 WBC (Bld) 0.0 % Normal [facility] Comment on above: Order Comment: Speci men Type: BLOOD SPECIMENOrdering Facility: [facility] Address: [address] [place] [address] Performed By: #### 5 7021-8 ####[facility]ORATORYCLIA [id number] [address] Differential cell count method Nom (Bld) Manual Normal [facility] Comment on above: Order Comment: Speci men Type: BLOOD SPECIMENOrdering Facility: [facility] Address: [address] [place] [address] Performed By: #### 5 7021-8 ####[facility]ORATORYCLIA [id number] [address] Eosinophils (Bld) [#/Vol] 0.00 10*3/uL Normal <0.46 [facility] Comment on above: Order Comment: Speci men Type: BLOOD SPECIMENOrdering Facility: [facility] Address: [address] [place] [address] Performed By: #### 5 7021-8 ####[facility]ORATORYCLIA [id number] [address] Eosinophils/100 WBC (Bld) 0.0 % Normal [facility] Comment on above: Order Comment: Speci men Type: BLOOD SPECIMENOrdering Facility: [facility] Address: [address] [place] [address] Performed By: #### 5 7021-8 ####[facility]ORATORYCLIA [id number] [place] [address] [place] Erythrocyte distribution width (RBC) [Ratio] 22.6 % High 11.5-15.0 [facility] Comment on above: Order Comment: Speci men Type: BLOOD SPECIMENOrdering Facility: [facility] Address: [address] [place] [address] Performed By: #### 5 7021-8 ####[facility] LABORATORYCLIA [id number] [address] [place] Hematocrit (Bld) [Volume fraction] 22.5 % Low 39.0-51.0 [facility] Comment on above: Order Comment: Speci men Type: BLOOD SPECIMENOrdering Facility: [facility] Address: [address] [place] [address] Performed By: #### 5 7021-8 ####[facility] LABORATORYCLIA [id number] [address] [place] Hemoglobin (Bld) [Mass/Vol] 7.2 g/dL Low 13.0-17.0 [facility] Comment on above: Order Comment: Speci men Type: BLOOD SPECIMENOrdering Facility: [facility] Address: [address] [place] [address] Performed By: #### 5 7021-8 ####[facility] LABORATORYCLIA [id number] [address] [place] Lymphocytes (Bld) [#/Vol] 0.50 10*3/uL Low 1.00-4.00 [facility] Comment on above: Order Comment: Speci men Type: BLOOD SPECIMENOrdering Facility: [facility] Address: [address] [place] [address] Performed By: #### 5 7021-8 ####[facility] LABORATORYCLIA [id number] [address] [place] Lymphocytes/100 WBC (Bld) 3.0 % Normal [facility] Comment on above: Order Comment: Speci men Type: BLOOD SPECIMENOrdering Facility: [facility] Address: [address] [place] [address] Performed By: #### 5 7021-8 ####[facility] LABORATORYCLIA [id number] [address] STATES OF [facility] MCH (RBC) [Entitic mass] 29.9 pg Normal 26.0-34.0 [facility] Comment on above: Order Comment: Speci men Type: BLOOD SPECIMENOrdering Facility: [facility] Address: [address] [place] [address] Performed By: #### 5 7021-8 ####[facility] LABORATORYCLIA [id number] [address] [place] MCHC (RBC) [Mass/Vol] 32.0 g/dL Normal 30.5-36.0 [facility] Comment on above: Order Comment: Speci men Type: BLOOD SPECIMENOrdering Facility: [facility] Address: [address] [place] [address] Performed By: #### 5 7021-8 ####[facility] LABORATORYCLIA [id number] [address] MCV (RBC) [Entitic vol] 93.4 fL Normal 80.0-100.0 [facility] Comment on above: Order Comment: Speci men Type: BLOOD SPECIMENOrdering Facility: [facility] Address: [address] [place] [address] Performed By: #### 5 7021-8 ####[facility] LABORATORYCLIA [id number] [address] Metamyelocytes/100 WBC (Bld) 5.0 % Normal [facility] Comment on above: Order Comment: Speci men Type: BLOOD SPECIMENOrdering Facility: [facility] Address: [address] [place] [address] Performed By: #### 5 7021-8 ####[facility] LABORATORYCLIA [id number] [address] Monocytes (Bld) [#/Vol] 0.84 10*3/uL Normal <0.87 [facility] Comment on above: Order Comment: Speci men Type: BLOOD SPECIMENOrdering Facility: [facility] Address: [address] [place] [address] Performed By: #### 5 7021-8 ####[facility]ORATORYCLIA [id number] [address] [place] Monocytes/100 WBC (Bld) 5.0 % Normal [facility] Comment on above: Order Comment: Speci men Type: BLOOD SPECIMENOrdering Facility: [facility] Address: [address] [place] [address] Performed By: #### 5 7021-8 ####[facility] LABORATORYCLIA [id number] [address] [place] MYELO% 3.0 % Normal [facility] Comment on above: Order Comment: Speci men Type: BLOOD SPECIMENOrdering Facility: [facility] Address: [address] [place] [address] Performed By: #### 5 7021-8 ####[facility]ORATORYCLIA [id number] [address] [place] Neutrophils (Bld) [#/Vol] 14.07 10*3/uL High 1.45-7.50 [facility] Comment on above: Order Comment: Speci men Type: BLOOD SPECIMENOrdering Facility: [facility] Address: [address] [place] [address] Performed By: #### 5 7021-8 ####[facility]ORATORYCLIA [id number] [address] [place] Neutrophils/100 WBC (Bld) 84.0 % Normal [facility] Comment on above: Order Comment: Speci men Type: BLOOD SPECIMENOrdering Facility: [facility] Address: [address] [place] [address] Performed By: #### 5 7021-8 ####[facility]ORATORYCLIA [id number] [place] [address] [place] Nucleated RBC (Bld) [#/Vol] 10*3/uL Normal <0.01 [facility] Comment on above: Order Comment: Speci men Type: BLOOD SPECIMENOrdering Facility: [facility] Address: [address] [place] [address] Performed By: #### 5 7021-8 ####[facility] LABORATORYCLIA [id number] [address] [place] Nucleated RBC/100 WBC (Bld) [Ratio] 0.0 /100 WBC Normal [facility] Comment on above: Order Comment: Speci men Type: BLOOD SPECIMENOrdering Facility: [facility] Address: [address] [place] [address] Performed By: #### 5 7021-8 ####[facility] LABORATORYCLIA [id number] [place] [address] [place] Platelet mean volume (Bld) [Entitic vol] 9.4 fL Normal 9.0-12.7 [facility] Comment on above: Order Comment: Speci men Type: BLOOD SPECIMENOrdering Facility: [facility] Address: [address] [place] [address] Performed By: #### 5 7021-8 ####[facility] LABORATORYCLIA [id number] [place] [address] [place] Platelets (Bld) [#/Vol] 434 10*3/uL High 150-400 [facility] Comment on above: Order Comment: Speci men Type: BLOOD SPECIMENOrdering Facility: [facility] Address: [address] [place] [address] Performed By: #### 5 7021-8 ####[facility] LABORATORYCLIA [id number] [place] [address] [place] Platelets Estimate (Bld) [#/Vol] Adequate Normal [facility] Comment on above: Order Comment: Speci men Type: BLOOD SPECIMENOrdering Facility: [facility] Address: [address] [place] [address] Performed By: #### 5 7021-8 ####[facility] LABORATORYCLIA [id number] [place] [address] [place] Polychromasia LM Ql (Bld) Slight Normal [facility] Comment on above: Order Comment: Speci men Type: BLOOD SPECIMENOrdering Facility: [facility] Address: [address] [place] [address] Performed By: #### 5 7021-8 ####[facility] LABORATORYCLIA [id number] [address] STATES OF [facility] RBC (Bld) [#/Vol] 2.41 10*6/uL Low 4.20-6.00 [facility] Comment on above: Order Comment: Speci men Type: BLOOD SPECIMENOrdering Facility: [facility] Address: [address] [place] [address] Performed By: #### 5 7021-8 ####[facility] LABORATORYCLIA [id number] [address] RED CELL MORPH Reviewed: see result s of individual morphologies Normal [facility] Comment on above: Order Comment: Speci men Type: BLOOD SPECIMENOrdering Facility: [facility] Address: [address] [place] [address] Performed By: #### 5 7021-8 ####[facility] LABORATORYCLIA [id number] [address] [place] WBC (Bld) [#/Vol] 16.75 10*3/uL High 3.70-11.00 [facility] Comment on above: Order Comment: Speci men Type: BLOOD SPECIMENOrdering Facility: [facility] Address: [address] [place] [address] Performed By: #### 5 7021-8 ####[facility] LABORATORYCLIA [id number] [address] [place] CONSULTon 12-17-2024 CONSULT Normal [facility] Hepatic function 2000 panelo n 12-17-2024 Albumin [Mass/Vol] 3.0 g/dL Low 3.9-4.9 [facility] Comment on above: Order Comment: Speci men Type: BLOOD SPECIMENOrdering Facility: [facility] Address: [address] [place] [address] Performed By: #### 2 4362-6, , 83116-2 ####[facility] LABORATORYCLIA [id number] [place] [address] [place] ALP [Catalytic activity/Vol] 160 U/L High 38-113 [facility] Comment on above: Order Comment: Speci men Type: BLOOD SPECIMENOrdering Facility: [facility] Address: [address] [place] [address] Performed By: #### 2 4362-6, , 87321-9 ####[facility] LABORATORYCLIA [id number] [place] [id number] [place] ALT With P-5'-P [Catalytic activity/Vol] 25 U/L Normal 10-54 [facility] Comment on above: Order Comment: Speci men Type: BLOOD SPECIMENOrdering Facility: [facility] Address: [address] [place] [address] Performed By: #### 2 4362-6, , 62474-2 ####[facility] LABORATORYCLIA [id number] [address] [place] AST With P-5'-P [Catalytic activity/Vol] 45 U/L High 14-40 [facility] Comment on above: Order Comment: Speci men Type: BLOOD SPECIMENOrdering Facility: [facility] Address: [address] [place] [address] Performed By: #### 2 4362-6, , 36659-4 ####[facility] LABORATORYCLIA [id number] [place] [address] [place] Bilirubin [Mass/Vol] 4.1 mg/dL High 0.2-1.3 [facility] Comment on above: Order Comment: Speci men Type: BLOOD SPECIMENOrdering Facility: [facility] Address: [address] [place] [address] Performed By: #### 2 4362-6, , 48987-7 ####[facility]ORATORYCLIA [id number] [address] [place] Bilirubin.conjugated [Mass/Vol] 2.9 mg/dL High <0.3 [facility] Comment on above: Order Comment: Speci men Type: BLOOD SPECIMENOrdering Facility: [facility] Address: [address] [place] [address] Performed By: #### 2 4362-6, 15448-0, 56209-4 ####[facility]ORATORYCLIA [id number] [address] [place] Protein [Mass/Vol] 7.1 g/dL Normal 6.3-8.0 [facility] Comment on above: Order Comment: Speci men Type: BLOOD SPECIMENOrdering Facility: [facility] Address: [address] [place] [address] Performed By: #### 2 4362-6, , 99816-2 ####[facility]ORATORYCLIA [id number] [address] [place] Magnesium SerPl-mCncon 12-17 Magnesium [Mass/Vol] 2.2 mg/dL Normal 1.7-2.3 [facility] Comment on above: Order Comment: Speci men Type: BLOOD SPECIMENOrdering Facility: [facility] Address: [address] [place] [address] Performed By: #### 2 4362-6, , 40023-3 ####[facility]ORATORYCLIA [id number] [place] [id number] [place] Renal function 2000 panelon 12-17-2024 Albumin [Mass/Vol] 2.8 g/dL Low 3.9-4.9 [facility] Comment on above: Order Comment: Speci men Type: BLOOD SPECIMENOrdering Facility: [facility] Address: [address] [place] [address] Performed By: #### 2 4362-6, , 75344-0 ####[facility] LABORATORYCLIA [id number] [place] [id number] [place] Anion gap [Moles/Vol] 12 mmol/L Normal 8-15 [facility] Comment on above: Order Comment: Speci men Type: BLOOD SPECIMENOrdering Facility: [facility] Address: [address] [place] [address] Performed By: #### 2 4362-6, , ####[facility]ORATORYCLIA [id number] [place] [address] [place] Calcium [Mass/Vol] 9.1 mg/dL Normal 8.5-10.2 [facility] Comment on above: Order Comment: Speci men Type: BLOOD SPECIMENOrdering Facility: [facility] Address: [address] [place] [address] Performed By: #### 2 4362-6, , ####[facility]ORATORYCLIA [id number] [place] [address] [place] Chloride [Moles/Vol] 97 mmol/L Low 98-107 [facility] Comment on above: Order Comment: Speci men Type: BLOOD SPECIMENOrdering Facility: [facility] Address: [address] [place] [address] Performed By: #### 2 4362-6, , ####[facility]ORATORYCLIA [id number] [place] [address] [place] CO2 [Moles/Vol] 23 mmol/L Normal 22-30 [facility] Comment on above: Order Comment: Speci men Type: BLOOD SPECIMENOrdering Facility: [facility] Address: [address] [place] [address] Performed By: #### 2 4362-6, , ####[facility]ORATORYCLIA [id number] [place] [address] [place] Creatinine [Mass/Vol] 1.56 mg/dL High 0.73-1.22 [facility] Comment on above: Order Comment: Speci men Type: BLOOD SPECIMENOrdering Facility: [facility] Address: [address] [place] [address] Performed By: #### 2 4362-6, 62048-7, 27940-3 ####[facility]ELCL[facility] [id number] [place] [id number] [facility] Creatinine and Glomerular filtration rate.predicted panel (S/P/Bld) 48 mL/min/1.73m??? Low >=60 [facility] Comment on above: Order Comment: Franchesca estrada Type: BLOOD SPECIMENOrdering Facility: [facility] Address: [address] [place] [address] Result Comment: Marcela mated Glomerular Filtration Rate [...] actual GFR. Performed By: #### 2 4362-6, 16427-8, 08185-8 ####[facility] [id number] [place] [id number] [place] Glucose [Mass/Vol] 101 mg/dL High 74-99 [facility] Comment on above: Order Comment: Franchesca estrada Type: BLOOD SPECIMENOrdering Facility: [facility] Address: [address] [place] [address] Result Comment: The [place] Diabetes Association (ADA) provides guidance for cutoff [...] Standards of Medical Care in Diabetes 2016, [employer] Association. Diabetes Care. 2016.39(Suppl 1). Performed By: #### 2 4362-6, 47661-8, 16986-5 ####[facility] CARMELCLIA [id number] [place] [address] [place] Phosphate [Mass/Vol] 3.3 mg/dL Normal 2.7-4.8 [facility] Comment on above: Order Comment: Speci men Type: BLOOD SPECIMENOrdering Facility: [facility] Address: [address] [place] [address] Performed By: #### 2 4362-6, , 53182-0 ####[facility] LABORATORYCLIA [id number] [place] [address] [place] Potassium [Moles/Vol] 4.7 mmol/L Normal 3.7-5.1 [facility] Comment on above: Order Comment: Speci men Type: BLOOD SPECIMENOrdering Facility: [facility] Address: [address] [place] [address] Performed By: #### 2 4362-6, , 31691-0 ####[facility]ORATORYCLIA [id number] [place] [address] [place] Sodium [Moles/Vol] 132 mmol/L Low 136-144 [facility] Comment on above: Order Comment: Speci men Type: BLOOD SPECIMENOrdering Facility: [facility] Address: [address] [place] [address] Performed By: #### 2 4362-6, , 23891-3 ####[facility]ORATORYCLIA [id number] [place] [id number] [place] Urea nitrogen [Mass/Vol] 28 mg/dL High 9-24 [facility] Comment on above: Order Comment: Speci men Type: BLOOD SPECIMENOrdering Facility: [facility] Address: [address] [place] [address] Performed By: #### 2 4362-6, , 13690-2 ####[facility] LABORATORYCLIA [id number] [place] [address] [place] CASE MANAGEMon 12-16-2024 CASE MANAGEM Normal [facility] CBC W Auto Differential pane l (Bld)on 12-16-2024 Anisocytosis Ql (Bld) Present [facility] Comment [facility] above: Order Comment: Speci men Type: BLOOD SPECIMENOrdering Facility: [facility] Address: [address] [place] [address] Performed By: #### 5 7021-8, 97354-8 ####[facility] LABORATORYCLIA [id number] [place] [address] [place] Basophils (Bld) [#/Vol] 0.00 10*3/uL Normal <0.11 [facility] Comment on above: Order Comment: Speci men Type: BLOOD SPECIMENOrdering Facility: [facility] Address: [address] [place] [address] Performed By: #### 5 7021-8, 92486-9 ####[facility] LABORATORYCLIA [id number] [address] [place] Basophils/100 WBC (Bld) 0.0 % Normal [facility] Comment on above: Order Comment: Speci men Type: BLOOD SPECIMENOrdering Facility: [facility] Address: [address] [place] [address] Performed By: #### 5 7021-8, 56775-9 ####[facility] LABORATORYCLIA [id number] [address] [place] Differential cell count method Nom (Bld) Manual Normal [facility] Comment on above: Order Comment: Speci men Type: BLOOD SPECIMENOrdering Facility: [facility] Address: [address] [place] [address] Performed By: #### 5 7021-8, 57254-0 ####[facility] LABORATORYCLIA [id number] [place] [address] [place] Eosinophils (Bld) [#/Vol] 0.00 10*3/uL Normal <0.46 [facility] Comment on above: Order Comment: Speci men Type: BLOOD SPECIMENOrdering Facility: [facility] Address: [address] [place] [address] Performed By: #### 5 7021-8, 72883-4 ####[facility] LABORATORYCLIA [id number] [address] STATES [facility] Eosinophils/100 WBC (Bld) 0.0 % Normal [facility] Comment on above: Order Comment: Speci men Type: BLOOD SPECIMENOrdering Facility: [facility] Address: [address] [place] [address] Performed By: #### 5 7021-8, 87906-9 ####[facility] LABORATORYCLIA [id number] [address] Erythrocyte distribution width (RBC) [Ratio] 23.5 % High 11.5-15.0 [facility] Comment on above: Order Comment: Speci men Type: BLOOD SPECIMENOrdering Facility: [facility] Address: [address] [place] [address] Performed By: #### 5 7021-8, 19254-8 ####[facility] LABORATORYCLIA [id number] [address] Hematocrit (Bld) [Volume fraction] 19.9 % Low 39.0-51.0 [facility] Comment on above: Order Comment: Speci men Type: BLOOD SPECIMENOrdering Facility: [facility] Address: [address] [place] [address] Performed By: #### 5 7021-8, 99331-2 ####[facility] LABORATORYCLIA [id number] [address] [place] Hemoglobin (Bld) [Mass/Vol] 6.6 g/dL Low 13.0-17.0 [facility] Comment on above: Order Comment: Speci men Type: BLOOD SPECIMENOrdering Facility: [facility] Address: [address] [place] [address] Performed By: #### 5 7021-8, 81469-5 ####[facility] LABORATORYCLIA [id number] [address] [place] Lymphocytes (Bld) [#/Vol] 0.23 10*3/uL Low 1.00-4.00 [facility] Comment on above: Order Comment: Speci men Type: BLOOD SPECIMENOrdering Facility: [facility] Address: [address] [place] [address] Performed By: #### 5 7021-8, 47594-4 ####[facility] LABORATORYCLIA [id number] [address] Lymphocytes/100 WBC (Bld) 1.0 % Normal [facility] Comment on above: Order Comment: Speci men Type: BLOOD SPECIMENOrdering Facility: [facility] Address: [address] [place] [address] Performed By: #### 5 7021-8, 10119-4 ####[facility] LABORATORYCLIA [id number] [address] [place] MCH (RBC) [Entitic mass] 31.7 pg Normal 26.0-34.0 [facility] Comment on above: Order Comment: Speci men Type: BLOOD SPECIMENOrdering Facility: [facility] Address: [address] [place] [address] Performed By: #### 5 7021-8, 81436-8 ####[facility] LABORATORYCLIA [id number] [address] MCHC (RBC) [Mass/Vol] 33.2 g/dL Normal 30.5-36.0 [facility] Comment on above: Order Comment: Speci men Type: BLOOD SPECIMENOrdering Facility: [facility] Address: [address] [place] [address] Performed By: #### 5 7021-8, 56728-8 ####[facility] LABORATORYCLIA [id number] [address] MCV (RBC) [Entitic vol] 95.7 fL Normal 80.0-100.0 [facility] Comment on above: Order Comment: Speci men Type: BLOOD SPECIMENOrdering Facility: [facility] Address: [address] [place] [address] Performed By: #### 5 7021-8, 22981-5 ####[facility]ORATORYCLIA [id number] [place] [address] [place] Metamyelocytes/100 WBC (Bld) 2.0 % Normal [facility] Comment on above: Order Comment: Speci men Type: BLOOD SPECIMENOrdering Facility: [facility] Address: [address] [place] [address] Performed By: #### 5 7021-8, 40948-7 ####[facility] LABORATORYCLIA [id number] [place] [address] [place] Monocytes (Bld) [#/Vol] 0.94 10*3/uL High <0.87 [facility] Comment on above: Order Comment: Speci men Type: BLOOD SPECIMENOrdering Facility: [facility] Address: [address] [place] [address] Performed By: #### 5 7021-8, 72837-3 ####[facility]ORATORYCLIA [id number] [address] OF [facility] Monocytes/100 WBC (Bld) 4.0 % Normal [facility] Comment on above: Order Comment: Speci men Type: BLOOD SPECIMENOrdering Facility: [facility] Address: [address] [place] [address] Performed By: #### 5 7021-8, 17672-3 ####[facility]ORATORYCLIA [id number] [address] [place] MYELO% 1.0 % Normal [facility] Comment on above: Order Comment: Speci men Type: BLOOD SPECIMENOrdering Facility: [facility] Address: [address] [place] [address] Performed By: #### 5 7021-8, 81538-1 ####[facility]ORATORYCLIA [id number] [place] [address] [place] Neutrophils (Bld) [#/Vol] 21.52 10*3/uL High 1.45-7.50 [facility] Comment on above: Order Comment: Speci men Type: BLOOD SPECIMENOrdering Facility: [facility] Address: [address] [place] [address] Performed By: #### 5 7021-8, 32861-3 ####[facility] LABORATORYCLIA [id number] [address] [place] Neutrophils/100 WBC (Bld) 92.0 % Normal [facility] Comment on above: Order Comment: Speci men Type: BLOOD SPECIMENOrdering Facility: [facility] Address: [address] [place] [address] Performed By: #### 5 7021-8, 16085-7 ####[facility] LABORATORYCLIA [id number] [address] [place] Nucleated RBC (Bld) [#/Vol] 10*3/uL Normal <0.01 [facility] Comment on above: Order Comment: Speci men Type: BLOOD SPECIMENOrdering Facility: [facility] Address: [address] [place] [address] Performed By: #### 5 7021-8, 77096-7 ####[facility] LABORATORYCLIA [id number] [address] STATES OF [facility] Nucleated RBC/100 WBC (Bld) [Ratio] 0.0 /100 WBC Normal [facility] Comment on above: Order Comment: Speci men Type: BLOOD SPECIMENOrdering Facility: [facility] Address: [address] [place] [address] Performed By: #### 5 7021-8, 12493-0 ####[facility] LABORATORYCLIA [id number] [address] [place] Platelet mean volume (Bld) [Entitic vol] 9.5 fL Normal 9.0-12.7 [facility] Comment on above: Order Comment: Speci men Type: BLOOD SPECIMENOrdering Facility: [facility] Address: [address] [place] [address] Performed By: #### 5 7021-8, 12570-6 ####[facility] LABORATORYCLIA [id number] [address] [place] Platelets (Bld) [#/Vol] 422 10*3/uL High 150-400 [facility] Comment on above: Order Comment: Speci men Type: BLOOD SPECIMENOrdering Facility: [facility] Address: [address] [place] [address] Performed By: #### 5 7021-8, 42794-9 ####[facility] LABORATORYCLIA [id number] [place] [address] [place] Platelets Estimate (Bld) [#/Vol] Increased Normal [facility] Comment on above: Order Comment: Speci men Type: BLOOD SPECIMENOrdering Facility: [facility] Address: [address] [place] [address] Performed By: #### 5 7021-8, 83608-9 ####[facility] LABORATORYCLIA [id number] [address] Polychromasia LM Ql (Bld) Slight Normal [facility] Comment on above: Order Comment: Speci men Type: BLOOD SPECIMENOrdering Facility: [facility] Address: [address] [place] [address] Performed By: #### 5 7021-8, 44689-6 ####[facility] LABORATORYCLIA [id number] [address] [place] RBC (Bld) [#/Vol] 2.08 10*6/uL Low 4.20-6.00 [facility] Comment on above: Order Comment: Speci men Type: BLOOD SPECIMENOrdering Facility: [facility] Address: [address] [place] [address] Performed By: #### 5 7021-8, 68957-3 ####[facility] LABORATORYCLIA [id number] [address] RED CELL MORPH Reviewed: see result s of individual morphologies Normal [facility] Comment on above: Order Comment: Speci men Type: BLOOD SPECIMENOrdering Facility: [facility] Address: [address] [place] [address] Performed By: #### 5 7021-8, 60160-6 ####[facility] LABORATORYCLIA [id number] [address] STATES OF [facility] WBC (Bld) [#/Vol] 23.39 10*3/uL High 3.70-11.00 [facility] Comment on above: Order Comment: Speci men Type: BLOOD SPECIMENOrdering Facility: [facility] Address: [address] [place] [address] Performed By: #### 5 7021-8, 91666-2 ####[facility] LABORATORYCLIA [id number] [address] WBC Left Shift Ql (Bld) Present Normal [facility] Comment on above: Order Comment: Speci men Type: BLOOD SPECIMENOrdering Facility: [facility] Address: [address] [place] [address] Performed By: #### 5 7021-8, 61880-7 ####[facility] LABORATORYCLIA [id number] [address] CBC W Ordered Manual Differe ntial panel (Bld)on 12-16-2024 ANISOCYTOSIS Present Normal [facility] Comment on above: Order Comment: Speci men Type: BLOOD SPECIMENOrdering Facility: [facility] Address: [address] [place] [address] Performed By: #### 5 7782-5, STFREV ####[facility] LABORATORYCLIA [id number] [address] OF [facility] Basophils (Bld) [#/Vol] 0.00 10*3/uL Normal <0.11 [facility] Comment on above: Order Comment: Speci men Type: BLOOD SPECIMENOrdering Facility: [facility] Address: [address] [place] [address] Performed By: #### 5 7782-5, STFREV ####[facility] LABORATORYCLIA [id number] [address] Basophils/100 WBC (Bld) 0.0 % Normal [facility] Comment on above: Order Comment: Speci men Type: BLOOD SPECIMENOrdering Facility: [facility] Address: [address] [place] [address] Performed By: #### 5 7782-5, STFREV ####[facility]ORATORYCLIA [id number] [address] Differential cell count method Nom (Bld) Manual Normal [facility] Comment on above: Order Comment: Speci men Type: BLOOD SPECIMENOrdering Facility: [facility] Address: [address] [place] [address] Performed By: #### 5 7782-5, STFREV ####[facility]ORATORYCLIA [id number] [address] OF [facility] Eosinophils (Bld) [#/Vol] 0.00 10*3/uL Normal <0.46 [facility] Comment on above: Order Comment: Speci men Type: BLOOD SPECIMENOrdering Facility: [facility] Address: [address] [place] [address] Performed By: #### 5 7782-5, STFREV ####[facility] LABORATORYCLIA [id number] [address] Eosinophils/100 WBC (Bld) 0.0 % Normal [facility] Comment on above: Order Comment: Speci men Type: BLOOD SPECIMENOrdering Facility: [facility] Address: [address] [place] [address] Performed By: #### 5 7782-5, STFREV ####[facility]ORATORYCLIA [id number] [address] [place] Erythrocyte distribution width (RBC) [Ratio] 21.5 % High 11.5-15.0 [facility] Comment on above: Order Comment: Speci men Type: BLOOD SPECIMENOrdering Facility: [facility] Address: [address] [place] [address] Performed By: #### 5 7782-5, STFREV ####[facility]ORATORYCLIA [id number] [address] STATES OF [facility] Hematocrit (Bld) [Volume fraction] 23.8 % Low 39.0-51.0 [facility] Comment on above: Order Comment: Speci men Type: BLOOD SPECIMENOrdering Facility: [facility] Address: [address] [place] [address] Performed By: #### 5 7782-5, STFREV ####[facility] LABORATORYCLIA [id number] [address] OF [facility] Hemoglobin (Bld) [Mass/Vol] 7.7 g/dL Low 13.0-17.0 [facility] Comment on above: Order Comment: Speci men Type: BLOOD SPECIMENOrdering Facility: [facility] Address: [address] [place] [address] Performed By: #### 5 7782-5, STFREV ####[facility] LABORATORYCLIA [id number] [address] [place] Lymphocytes (Bld) [#/Vol] 0.61 10*3/uL Low 1.00-4.00 [facility] Comment on above: Order Comment: Speci men Type: BLOOD SPECIMENOrdering Facility: [facility] Address: [address] [place] [address] Performed By: #### 5 7782-5, STFREV ####[facility] LABORATORYCLIA [id number] [address] [place] Lymphocytes/100 WBC (Bld) 3.0 % Normal [facility] Comment on above: Order Comment: Speci men Type: BLOOD SPECIMENOrdering Facility: [facility] Address: [address] [place] [address] Performed By: #### 5 7782-5, STFREV ####[facility] LABORATORYCLIA [id number] [address] [place] MCH (RBC) [Entitic mass] 30.1 pg Normal 26.0-34.0 [facility] Comment on above: Order Comment: Speci men Type: BLOOD SPECIMENOrdering Facility: [facility] Address: [address] [place] [address] Performed By: #### 5 7782-5, STFREV ####[facility] LABORATORYCLIA [id number] [address] MCHC (RBC) [Mass/Vol] 32.4 g/dL Normal 30.5-36.0 [facility] Comment on above: Order Comment: Speci men Type: BLOOD SPECIMENOrdering Facility: [facility] Address: [address] [place] [address] Performed By: #### 5 7782-5, STFREV ####[facility] LABORATORYCLIA [id number] [address] MCV (RBC) [Entitic vol] 93.0 fL Normal 80.0-100.0 [facility] Comment on above: Order Comment: Speci men Type: BLOOD SPECIMENOrdering Facility: [facility] Address: [address] [place] [address] Performed By: #### 5 7782-5, STFREV ####[facility] LABORATORYCLIA [id number] [address] META% 4.0 % Normal [facility] Comment on above: Order Comment: Speci men Type: BLOOD SPECIMENOrdering Facility: [facility] Address: [address] [place] [address] Performed By: #### 5 7782-5, STFREV ####[facility] LABORATORYCLIA [id number] [address] Monocytes (Bld) [#/Vol] 1.23 10*3/uL High <0.87 [facility] Comment on above: Order Comment: Speci men Type: BLOOD SPECIMENOrdering Facility: [facility] Address: [address] [place] [address] Performed By: #### 5 7782-5, STFREV ####[facility] LABORATORYCLIA [id number] [address] Monocytes/100 WBC (Bld) 6.0 % Normal [facility] Comment on above: Order Comment: Speci men Type: BLOOD SPECIMENOrdering Facility: [facility] Address: [facility] [place] [address] Performed By: #### 5 7782-5, STFREV ####[facility]ORATORYCLIA [id number] [address] [place] MYELO% 1.0 % Normal [facility] Comment on above: Order Comment: Speci men Type: BLOOD SPECIMENOrdering Facility: [facility] Address: [address] [place] [address] Performed By: #### 5 7782-5, STFREV ####[facility]ORATORYCLIA [id number] [address] STATES [facility] Neutrophils (Bld) [#/Vol] 17.60 10*3/uL High 1.45-7.50 [facility] Comment on above: Order Comment: Speci men Type: BLOOD SPECIMENOrdering Facility: [facility] Address: [address] [place] [address] Performed By: #### 5 7782-5, STFREV ####[facility]ORATORYCLIA [id number] [address] Neutrophils/100 WBC (Bld) 86.0 % Normal [facility] Comment on above: Order Comment: Speci men Type: BLOOD SPECIMENOrdering Facility: [facility] Address: [address] [place] [address] Performed By: #### 5 7782-5, STFREV ####[facility]ORATORYCLIA [id number] [address] [place] Nucleated RBC (Bld) [#/Vol] 10*3/uL Normal <0.01 [facility] Comment on above: Order Comment: Speci men Type: BLOOD SPECIMENOrdering Facility: [facility] Address: [address] [place] [address] Performed By: #### 5 7782-5, STFREV ####[facility] LABORATORYCLIA [id number] [address] [place] Nucleated RBC/100 WBC (Bld) [Ratio] 0.0 /100 WBC Normal [facility] Comment on above: Order Comment: Speci men Type: BLOOD SPECIMENOrdering Facility: [facility] Address: [address] [place] [address] Performed By: #### 5 7782-5, STFREV ####[facility] LABORATORYCLIA [id number] [place] [address] [place] Platelet mean volume (Bld) [Entitic vol] 9.5 fL Normal 9.0-12.7 [facility] Comment on above: Order Comment: Speci men Type: BLOOD SPECIMENOrdering Facility: [facility] Address: [address] [place] [address] Performed By: #### 5 7782-5, STFREV ####[facility] LABORATORYCLIA [id number] [address] [place] Platelets (Bld) [#/Vol] 435 10*3/uL High 150-400 [facility] Comment on above: Order Comment: Speci men Type: BLOOD SPECIMENOrdering Facility: [facility] Address: [address] [place] [address] Performed By: #### 5 7782-5, STFREV ####[facility] LABORATORYCLIA [id number] [address] [place] Platelets Estimate (Bld) [#/Vol] Increased Normal [facility] Comment on above: Order Comment: Speci men Type: BLOOD SPECIMENOrdering Facility: [facility] Address: [address] [place] [address] Performed By: #### 5 7782-5, STFREV ####[facility] LABORATORYCLIA [id number] [address] [place] Polychromasia LM Ql (Bld) Slight Normal [facility] Comment on above: Order Comment: Speci men Type: BLOOD SPECIMENOrdering Facility: [facility] Address: [address] [place] [address] Performed By: #### 5 7782-5, STFREV ####[facility] LABORATORYCLIA [id number] [address] RBC (Bld) [#/Vol] 2.56 10*6/uL Low 4.20-6.00 [facility] Comment on above: Order Comment: Speci men Type: BLOOD SPECIMENOrdering Facility: [facility] Address: [address] [place] [address] Performed By: #### 5 7782-5, STFREV ####[facility] LABORATORYCLIA [id number] [address] RED CELL MORPH Reviewed: see result s of individual morphologies Normal [facility] Comment on above: Order Comment: Speci men Type: BLOOD SPECIMENOrdering Facility: [facility] Address: [address] [place] [address] Performed By: #### 5 7782-5, STFREV ####[facility] LABORATORYCLIA [id number] [address] OF [facility] WBC (Bld) [#/Vol] 20.47 10*3/uL High 3.70-11.00 [facility] Comment on above: Order Comment: Speci men Type: BLOOD SPECIMENOrdering Facility: [facility] Address: [address] [place] [address] Performed By: #### 5 7782-5, STFREV ####[facility] LABORATORYCLIA [id number] [address] LEDY DIRECTon 12-16-2024 DAGT, ANTI-C3B,C3D Positive Normal [facility] Comment on above: Order Comment: Speci men Type: BLOOD SPECIMENOrdering Facility: [facility] Address: [address] [place] [address] Performed By: #### D AGT ####[facility] BLOOD BANKCLIA [id number] [address] DAGT, ANTI-IGG Negative Normal [facility] Comment on above: Order Comment: Speci men Type: BLOOD SPECIMENOrdering Facility: [facility] Address: [address] [place] [address] Performed By: #### D AGT ####[facility] BLOOD BANKCLIA [id number] [address] DAGT, POLYSPECIFIC AHG Positive Normal [facility] Comment on above: Order Comment: Speci men Type: BLOOD SPECIMENOrdering Facility: [facility] Address: [address] [place] [address] Performed By: #### D AGT ####[facility] BLOOD BANKCLIA [id number] [address] TYPE AND SCREEN EXPIRATION 12/19/2024 23:59 Normal [facility] Comment on above: Order Comment: Speci men Type: BLOOD SPECIMENOrdering Facility: [facility] Address: [address] [place] [address] Performed By: #### D AGT ####[facility] BLOOD BANKCLIA [id number] [address] [place] Haptoglob SerPl-mCncon 12-16 Haptoglobin [Mass/Vol] mg/dL Low 31-238 [facility] Comment on above: Order Comment: Speci men Type: BLOOD SPECIMENOrdering Facility: [facility] Address: [address] [place] [address] Performed By: #### 4 542-7 ####[facility] LABORATORYCLIA [id number] [address] [place] Hep Func 2000 Pnl SerPlon Bilirubin.conjugated [Mass/Vol] 3.4 mg/dL High <0.3 [facility] Comment on above: Order Comment: Speci men Type: BLOOD SPECIMENOrdering Facility: [facility] Address: [address] [place] [address] Performed By: #### D ESTRELLITA, 60403-2, 69505-2 ####[facility] LABORATORYCLIA [id number] [address] [place] Hepatic function 2000 panelo n 12-16-2024 ALP [Catalytic activity/Vol] 125 U/L High 38-113 [facility] Comment on above: Order Comment: Speci men Type: BLOOD SPECIMENOrdering Facility: [facility] Address: [address] [place] [address] Performed By: #### D ESTRELLITA, 91026-3, 76130-8 ####[facility] LABORATORYCLIA [id number] [address] [place] ALT With P-5'-P [Catalytic activity/Vol] 23 U/L Normal 10-54 [facility] Comment on above: Order Comment: Speci men Type: BLOOD SPECIMENOrdering Facility: [facility] Address: [address] [place] [address] Performed By: #### D ESTRELLITA, 99609-4, 26040-5 ####[facility] LABORATORYCLIA [id number] [address] [facility] AST With P-5'-P [Catalytic activity/Vol] 39 U/L Normal 14-40 [facility] Comment on above: Order Comment: Speci men Type: BLOOD SPECIMENOrdering Facility: [facility] Address: [address] [place] [address] Performed By: #### D ESTRELLITA, 86670-8, 92701-3 ####[facility] LABORATORYCLIA [id number] [address] [place] Bilirubin [Mass/Vol] 4.8 mg/dL High 0.2-1.3 [facility] Comment on above: Order Comment: Speci men Type: BLOOD SPECIMENOrdering Facility: [facility] Address: [address] [place] [address] Performed By: #### D ESTRELLITA, 18906-7, 47547-3 ####[facility] LABORATORYCLIA [id number] [address] [place] Protein [Mass/Vol] 7.1 g/dL Normal 6.3-8.0 [facility] Comment on above: Order Comment: Speci men Type: BLOOD SPECIMENOrdering Facility: [facility] Address: [address] [place] [address] Performed By: #### D ESTRELLITA, 53835-0, 76306-9 ####[facility] LABORATORYCLIA [id number] [address] [place] LDH SerPl-cCncon 12-16-2024 LDH [Catalytic activity/Vol] 570 U/L High 135-225 [facility] Comment on above: Order Comment: Speci men Type: BLOOD SPECIMENOrdering Facility: [facility] Address: [address] [place] [address] Performed By: #### 2 532-0 ####[facility] LABORATORYCLIA [id number] [place] [address] [place] NUTRITIONon 12-16-2024 NUTRITION Normal [facility] PATHOLOGIST INTERPRETATION C BC/DIFFon 12-16-2024 [employer] Representatives review Jani (Unsp spec) [Interp] Reviewed by Kasi Figueroa MD Normal [facility] Comment on above: Order Comment: Speci men Type: BLOOD SPECIMENOrdering Facility: [facility] Address: [address] [place] [address] Performed By: #### 5 7782-5, STFREV ####[facility] LABORATORYCLIA [id number] [address] [place] STAFF REVIEW, CBCDIF Review of the peripheral smear reveals normocytic anemia, leukocytosis (neutrophilia, absolute monocytosis) and mild thrombocytosis. Granulocytes are slightly left-shifted with otherwise normal morphology. Clinical correlation is recommended. Normal [facility] Comment on above: Order Comment: Speci men Type: BLOOD SPECIMENOrdering Facility: [facility] Address: [address] [place] [address] Performed By: #### 5 7782-5, STFREV ####[facility] LABORATORYCLIA [id number] [place] [address] [place] Renal Func 2000 Pnl SerPlon 12-16-2024 Albumin [Mass/Vol] 3.0 g/dL Low 3.9-4.9 [facility] Comment on above: Order Comment: Speci men Type: BLOOD SPECIMENOrdering Facility: [facility] Address: [address] [place] [address] Performed By: #### Darren ESTRELLITA, 14741-4, 42139-8 ####[facility]ORATORYCLIA [id number] [place] [address] [place] Renal function 2000 panelon 12-16-2024 Anion gap [Moles/Vol] 14 mmol/L Normal 8-15 [facility] Comment on above: Order Comment: Speci men Type: BLOOD SPECIMENOrdering Facility: [facility] Address: [address] [place] [address] Performed By: #### Darren ESTRELLITA, 45795-6, 52501-1 ####[facility]ORATORYCLIA [id number] [place] [address] [place] Calcium [Mass/Vol] 9.0 mg/dL Normal 8.5-10.2 [facility] Comment on above: Order Comment: Speci men Type: BLOOD SPECIMENOrdering Facility: [facility] Address: [address] [place] [address] Performed By: #### Darren ESTRELLITA, 94729-0, 86125-9 ####[facility]ORATORYCLIA [id number] [address] [place] Chloride [Moles/Vol] 91 mmol/L Low 98-107 [facility] Comment on above: Order Comment: Speci men Type: BLOOD SPECIMENOrdering Facility: [facility] Address: [address] [place] [address] Performed By: #### D ESTRELLITA, 25751-5, 27773-1 ####[facility]ORATORYCLIA [id number] [place] [address] [place] CO2 [Moles/Vol] 23 mmol/L Normal 22-30 [facility] Comment on above: Order Comment: Speci men Type: BLOOD SPECIMENOrdering Facility: [facility] Address: [address] [place] [address] Performed By: #### D ESTRELLITA, 97869-7, 58587-7 ####[facility]ORATORYCLIA [id number] [place] [id number] [place] [facility] Creatinine [Mass/Vol] 1.92 mg/dL High 0.73-1.22 [facility] Comment on above: Order Comment: Speci men Type: BLOOD SPECIMENOrdering Facility: [facility] Address: [address] [place] [address] Performed By: #### D ESTRELLITA, 35140-1, 23473-8 ####[facility] LABORATORYCLIA [id number] [address] Creatinine and Glomerular filtration rate.predicted panel (S/P/Bld) 37 mL/min/1.73m??? Low >=60 [facility] Comment on above: Order Comment: Speci men Type: BLOOD SPECIMENOrdering Facility: [facility] Address: [address] [place] [address] Result Comment: Marcela mated Glomerular Filtration Rate [...] actual GFR. Performed By: #### D ESTRELLITA, 31545-5, 52695-5 ####[facility]ORATORYCLIA [id number] [place] [id number] [place] [facility] Glucose [Mass/Vol] 106 mg/dL High 74-99 [facility] Comment on above: Order Comment: Speci men Type: BLOOD SPECIMENOrdering Facility: [facility] Address: [address] [place] [address] Result Comment: The [place] Diabetes Association (ADA) provides guidance for cutoff [...] Standards of Medical Care in Diabetes 2016, [employer] Diabetes Association. Diabetes Care. 2016.39(Suppl 1). Performed By: #### Darren HARO, 60983-9, 37166-8 ####[facility] LABORATORYCLIA [id number] [place] [address] [place] Phosphate [Mass/Vol] 4.4 mg/dL Normal 2.7-4.8 [facility] Comment on above: Order Comment: Speci men Type: BLOOD SPECIMENOrdering Facility: [facility] Address: [address] [place] [address] Performed By: #### Darren ESTRELLITA, 52926-1, 75673-5 ####[facility]ORATORYCLIA [id number] [place] [address] [place] Potassium [Moles/Vol] 4.3 mmol/L Normal 3.7-5.1 [facility] Comment on above: Order Comment: Girishi sean Type: BLOOD SPECIMENOrdering Facility: [facility] Address: [address] [place] [address] Performed By: #### Darren ESTRELLITA, 42444-1, 00361-6 ####[facility] LABORATORYCLIA [id number] [place] [address] [place] Sodium [Moles/Vol] 128 mmol/L Low 136-144 [facility] Comment on above: Order Comment: Speci men Type: BLOOD SPECIMENOrdering Facility: [facility] Address: [address] [place] [address] Performed By: #### Darren ESTRELLITA, 94547-2, 09277-8 ####[facility]ORATORYCLIA [id number] [place] [address] [place] Urea nitrogen [Mass/Vol] 33 mg/dL High 9-24 [facility] Comment on above: Order Comment: Speci men Type: BLOOD SPECIMENOrdering Facility: [facility] Address: [address] [place] [address] Performed By: #### D ESTRELLITA, 24438-1, 06446-5 ####[facility] LABORATORYCLIA [id number] [address] Retics #on 12-16-2024 Reticulocytes (Bld) [#/Vol] 0.09187 10*3/uL High 0.018-0.100 [facility] Comment on above: Order Comment: Speci men Type: BLOOD SPECIMENOrdering Facility: [facility] Address: [address] [place] [address] Performed By: #### 5 7021-8, 41938-9 ####[facility]ORATORYCLIA [id number] [address] Reticulocytes (Bld) [#/Vol]o n 12-16-2024 Reticulocytes/100 RBC (Bld) 5.4 % High 0.4-2.0 [facility] Comment on above: Order Comment: Speci men Type: BLOOD SPECIMENOrdering Facility: [facility] Address: [address] [place] [address] Performed By: #### 5 7021-8, 90986-7 ####[facility]ORATORYCLIA [id number] [address] THERAPY NTon 12-16-2024 THERAPY NT Normal [facility] Bacteria Spec Resp Culton Bacteria identified Respiratory culture Nom (Unsp spec) CULTURE, RESPIRATORY: Few Normal respiratory meghna present ORGANISM ID: 1 Rare Pseudomonas fluorescens group Insignificant colony count. No further workup. GRAM STAIN: Few Mixed oral meghna No Polymorphonuclear Leukocytes Rare Epithelial cells Abnormal [facility] Comment on above: Performed By: #### 3 2355-0 ####[facility] LABORATORYCLIA [id number] [address] OF [facility] CBC W Auto Differential pane l (Bld)on 12-15-2024 Anisocytosis Ql (Bld) Present Normal [facility] Comment on above: Order Comment: Speci men Type: BLOOD SPECIMENOrdering Facility: [facility] Address: [address] [place] [address] Performed By: #### 5 7021-8 ####[facility]ORATORYCLIA [id number] [address] [place] Basophils (Bld) [#/Vol] 0.00 10*3/uL Normal <0.11 [facility] Comment on above: Order Comment: Speci men Type: BLOOD SPECIMENOrdering Facility: [facility] Address: [address] [place] [address] Performed By: #### 5 7021-8 ####[facility]ORATORYCLIA [id number] [address] Basophils/100 WBC (Bld) 0.0 % Normal [facility] Comment on above: Order Comment: Speci men Type: BLOOD SPECIMENOrdering Facility: [facility] Address: [address] [place] [address] Performed By: #### 5 7021-8 ####[facility]ORATORYCLIA [id number] [address] Differential cell count method Nom (Bld) Manual Normal [facility] Comment on above: Order Comment: Speci men Type: BLOOD SPECIMENOrdering Facility: [facility] Address: [address] [place] [address] Performed By: #### 5 7021-8 ####[facility]ATORYCLIA [id number] [place] [address] [place] Eosinophils (Bld) [#/Vol] 0.00 10*3/uL Normal <0.46 [facility] Comment on above: Order Comment: Speci men Type: BLOOD SPECIMENOrdering Facility: [facility] Address: [address] [place] [address] Performed By: #### 5 7021-8 ####[facility]ATORYCLIA [id number] [address] [place] Eosinophils/100 WBC (Bld) 0.0 % Normal [facility] Comment on above: Order Comment: Speci men Type: BLOOD SPECIMENOrdering Facility: [facility] Address: [address] [place] [address] Performed By: #### 5 7021-8 ####[facility]ORATORYCLIA [id number] [address] [place] Erythrocyte distribution width (RBC) [Ratio] 23.2 % High 11.5-15.0 [facility] Comment on above: Order Comment: Speci men Type: BLOOD SPECIMENOrdering Facility: [facility] Address: [address] [place] [address] Performed By: #### 5 7021-8 ####[facility] LABORATORYCLIA [id number] [address] [place] Hematocrit (Bld) [Volume fraction] 23.1 % Low 39.0-51.0 [facility] Comment on above: Order Comment: Speci men Type: BLOOD SPECIMENOrdering Facility: [facility] Address: [address] [place] [address] Performed By: #### 5 7021-8 ####[facility] LABORATORYCLIA [id number] [address] [place] Hemoglobin (Bld) [Mass/Vol] 7.6 g/dL Low 13.0-17.0 [facility] Comment on above: Order Comment: Speci men Type: BLOOD SPECIMENOrdering Facility: [facility] Address: [address] [place] [address] Performed By: #### 5 7021-8 ####[facility]ORATORYCLIA [id number] [place] [address] [place] Lymphocytes (Bld) [#/Vol] 1.14 10*3/uL Normal 1.00-4.00 [facility] Comment on above: Order Comment: Speci men Type: BLOOD SPECIMENOrdering Facility: [facility] Address: [address] [place] [address] Performed By: #### 5 7021-8 ####[facility]ORATORYCLIA [id number] [address] Lymphocytes/100 WBC (Bld) 6.0 % Normal [facility] Comment on above: Order Comment: Speci men Type: BLOOD SPECIMENOrdering Facility: [facility] Address: [address] [place] [address] Performed By: #### 5 7021-8 ####[facility] LABORATORYCLIA [id number] [address] [place] MCH (RBC) [Entitic mass] 31.3 pg Normal 26.0-34.0 [facility] Comment on above: Order Comment: Speci men Type: BLOOD SPECIMENOrdering Facility: [facility] Address: [address] [place] [address] Performed By: #### 5 7021-8 ####[facility]ORATORYCLIA [id number] [address] [place] OF [facility] MCHC (RBC) [Mass/Vol] 32.9 g/dL Normal 30.5-36.0 [facility] Comment on above: Order Comment: Speci men Type: BLOOD SPECIMENOrdering Facility: [facility] Address: [address] [place] [address] Performed By: #### 5 7021-8 ####[facility]ORATORYCLIA [id number] [address] [place] MCV (RBC) [Entitic vol] 95.1 fL Normal 80.0-100.0 [facility] Comment on above: Order Comment: Speci men Type: BLOOD SPECIMENOrdering Facility: [facility] Address: [address] [place] [address] Performed By: #### 5 7021-8 ####[facility] LABORATORYCLIA [id number] [address] Metamyelocytes/100 WBC (Bld) 2.0 % Normal [facility] Comment on above: Order Comment: Speci men Type: BLOOD SPECIMENOrdering Facility: [facility] Address: [address] [place] [address] Performed By: #### 5 7021-8 ####[facility]ORATORYCLIA [id number] [place] [address] [place] Monocytes (Bld) [#/Vol] 1.71 10*3/uL High <0.87 [facility] Comment on above: Order Comment: Speci men Type: BLOOD SPECIMENOrdering Facility: [facility] Address: [address] [place] [address] Performed By: #### 5 7021-8 ####[facility]ORATORYCLIA [id number] [address] [place] Monocytes/100 WBC (Bld) 9.0 % Normal [facility] Comment on above: Order Comment: Speci men Type: BLOOD SPECIMENOrdering Facility: [facility] Address: [address] [place] [address] Performed By: #### 5 7021-8 ####[facility]ORATORYCLIA [id number] [address] [place] MYELO% 2.0 % Normal [facility] Comment on above: Order Comment: Speci men Type: BLOOD SPECIMENOrdering Facility: [facility] Address: [address] [place] [address] Performed By: #### 5 7021-8 ####[facility]ORATORYCLIA [id number] [address] [place] Neutrophils (Bld) [#/Vol] 15.41 10*3/uL High 1.45-7.50 [facility] Comment on above: Order Comment: Speci men Type: BLOOD SPECIMENOrdering Facility: [facility] Address: [address] [place] [address] Performed By: #### 5 7021-8 ####[facility]ATORYCLIA [id number] [address] Neutrophils/100 WBC (Bld) 81.0 % Normal [facility] Comment on above: Order Comment: Speci men Type: BLOOD SPECIMENOrdering Facility: [facility] Address: [address] [place] [address] Performed By: #### 5 7021-8 ####[facility]ORATORYCLIA [id number] [place] [address] [place] Nucleated RBC (Bld) [#/Vol] 10*3/uL Normal <0.01 [facility] Comment on above: Order Comment: Speci men Type: BLOOD SPECIMENOrdering Facility: [facility] Address: [address] [place] [address] Performed By: #### 5 7021-8 ####[facility]ORATORYCLIA [id number] [address] [place] Nucleated RBC/100 WBC (Bld) [Ratio] 0.0 /100 WBC Normal [facility] Comment on above: Order Comment: Speci men Type: BLOOD SPECIMENOrdering Facility: [facility] Address: [address] [place] [address] Performed By: #### 5 7021-8 ####[facility] LABORATORYCLIA [id number] [place] [address] [place] Platelet mean volume (Bld) [Entitic vol] 9.1 fL Normal 9.0-12.7 [facility] Comment on above: Order Comment: Speci men Type: BLOOD SPECIMENOrdering Facility: [facility] Address: [address] [place] [address] Performed By: #### 5 7021-8 ####[facility]ORATORYCLIA [id number] [place] [address] [place] Platelets (Bld) [#/Vol] 430 10*3/uL High 150-400 [facility] Comment on above: Order Comment: Speci men Type: BLOOD SPECIMENOrdering Facility: [facility] Address: [address] [place] [address] Performed By: #### 5 7021-8 ####[facility]ORATORYCLIA [id number] [place] [address] [place] Platelets Estimate (Bld) [#/Vol] Adequate Normal [facility] Comment on above: Order Comment: Speci men Type: BLOOD SPECIMENOrdering Facility: [facility] Address: [address] [place] [address] Performed By: #### 5 7021-8 ####[facility]ORATORYCLIA [id number] [address] Polychromasia LM Ql (Bld) Slight Normal [facility] Comment on above: Order Comment: Speci men Type: BLOOD SPECIMENOrdering Facility: [facility] Address: [address] [place] [address] Performed By: #### 5 7021-8 ####[facility] LABORATORYCLIA [id number] [address] RBC (Bld) [#/Vol] 2.43 10*6/uL Low 4.20-6.00 [facility] Comment on above: Order Comment: Speci men Type: BLOOD SPECIMENOrdering Facility: [facility] Address: [address] [place] [address] Performed By: #### 5 7021-8 ####[facility] LABORATORYCLIA [id number] [address] RED CELL MORPH Reviewed: see result s of individual morphologies Normal [facility] Comment on above: Order Comment: Speci men Type: BLOOD SPECIMENOrdering Facility: [facility] Address: [address] [place] [address] Performed By: #### 5 7021-8 ####[facility]ORATORYCLIA [id number] [address] WBC (Bld) [#/Vol] 19.03 10*3/uL High 3.70-11.00 [facility] Comment on above: Order Comment: Speci men Type: BLOOD SPECIMENOrdering Facility: [facility] Address: [address] [place] [address] Performed By: #### 5 7021-8 ####[facility]ORATORYCLIA [id number] [address] [place] ABD/PEL W IVCONon 12-15- 025 CT ABD/PEL W IVCON Normal [facility] CT CHEST W IVCONon 5 CT CHEST W IVCON Normal [facility] Magnesium SerPl-mCncon 12-15 Magnesium [Mass/Vol] 2.0 mg/dL Normal 1.7-2.3 [facility] Comment on above: Order Comment: Speci men Type: BLOOD SPECIMENOrdering Facility: [facility] Address: [address] [place] [address] Performed By: #### 2 4362-6, ####[facility] LABORATORYCLIA [id number] [place] [address] [place] Renal function 2000 panelon 12-15-2024 Albumin [Mass/Vol] 3.2 g/dL Low 3.9-4.9 [facility] Comment on above: Order Comment: Speci men Type: BLOOD SPECIMENOrdering Facility: [facility] Address: [address] [place] [address] Performed By: #### 2 4362-6, ####[facility]ORATORYCLIA [id number] [place] [address] [place] Anion gap [Moles/Vol] 12 mmol/L Normal 8-15 [facility] Comment on above: Order Comment: Speci men Type: BLOOD SPECIMENOrdering Facility: [facility] Address: [address] [place] [address] Performed By: #### 2 4362-6, ####[facility]ORATORYCLIA [id number] [place] [address] [place] Calcium [Mass/Vol] 9.2 mg/dL Normal 8.5-10.2 [facility] Comment on above: Order Comment: Speci men Type: BLOOD SPECIMENOrdering Facility: [facility] Address: [address] [place] [address] Performed By: #### 2 4362-6, ####[facility]ORATORYCLIA [id number] [place] [address] [place] Chloride [Moles/Vol] 94 mmol/L Low 98-107 [facility] Comment on above: Order Comment: Speci men Type: BLOOD SPECIMENOrdering Facility: [facility] Address: [address] [place] [address] Performed By: #### 2 4362-6, ####[facility] LABORATORYCLIA [id number] [place] [address] [place] CO2 [Moles/Vol] 25 mmol/L Normal 22-30 [facility] Comment on above: Order Comment: Speci men Type: BLOOD SPECIMENOrdering Facility: [facility] Address: [address] [place] [address] Performed By: #### 2 4362-6, ####[facility]ORATORYCLIA [id number] [address] [place] Creatinine [Mass/Vol] 1.32 mg/dL High 0.73-1.22 [facility] Comment on above: Order Comment: Speci men Type: BLOOD SPECIMENOrdering Facility: [facility] Address: [address] [place] [address] Performed By: #### 2 4362-6, ####[facility]ORATORYCLIA [id number] [address] Creatinine and Glomerular filtration rate.predicted panel (S/P/Bld) 58 mL/min/1.73m??? Low >=60 [facility] Comment on above: Order Comment: Speci men Type: BLOOD SPECIMENOrdering Facility: [facility] Address: [address] [place] [address] Result Comment: Marcela mated Glomerular Filtration Rate [...] actual GFR. Performed By: #### 2 4362-6, ####[facility]ELCLIA [id number] [place] [address] [place] Glucose [Mass/Vol] 96 mg/dL Normal 74-99 [facility] Comment on above: Order Comment: Speci men Type: BLOOD SPECIMENOrdering Facility: [facility] Address: [address] [place] [address] Result Comment: The [place] Diabetes Association (ADA) provides guidance for cutoff [...] Standards of Medical Care in Diabetes 2016, [place] Diabetes [employer]. Diabetes Care. 2016.39(Suppl 1). Performed By: #### 2 4362-6, ####[facility]IA [id number] [place] [id number] [place] Phosphate [Mass/Vol] 3.8 mg/dL Normal 2.7-4.8 [facility] Comment on above: Order Comment: Girishi men Type: BLOOD SPECIMENOrdering Facility: [facility] Address: [address] [place] [address] Performed By: #### 2 4362-6, ####[facility]ITALIA [id number] [place] [address] [place] Potassium [Moles/Vol] 4.2 mmol/L Normal 3.7-5.1 [facility] Comment on above: Order Comment: Girishi men Type: BLOOD SPECIMENOrdering Facility: [facility] Address: [address] [place], [place] [address] Performed By: #### 2 4362-6, ####[facility]ORATORYCLIA [id number] [address] [place] Sodium [Moles/Vol] 131 mmol/L Low 136-144 [facility] Comment on above: Order Comment: Speci men Type: BLOOD SPECIMENOrdering Facility: [facility] Address: [address] [place] [address] Performed By: #### 2 4362-6, 03331-3 ####[facility]ORATORYCLIA [id number] [place] [id number] [place] Urea nitrogen [Mass/Vol] 26 mg/dL High 9-24 [facility] Comment on above: Order Comment: Speci men Type: BLOOD SPECIMENOrdering Facility: [facility] Address: [address] [place] [address] Performed By: #### 2 4362-6, ####[facility] LABORATORYCLIA [id number] [place] [id number] [facility] [place] CASE MANAGEMon 12-14-2024 CASE MANAGEM Normal [facility] CBC Pnl Bld Autoon Nucleated RBC (Bld) [#/Vol] 10*3/uL Normal <0.01 [facility] Comment on above: Order Comment: Speci men Type: BLOOD SPECIMENOrdering Facility: [facility] Address: [address] [place] [address] Performed By: #### 5 8410-2, 88998-9 ####[facility] LABORATORYCLIA [id number] [address] [place] [place] CBC W Auto Differential pane l (Bld)on 12-14-2024 Anisocytosis Ql (Bld) Present Normal [facility] Comment on above: Order Comment: Speci men Type: BLOOD SPECIMENOrdering Facility: [facility] Address: [address] [place] [address] Performed By: #### 5 8410-2, 12865-6 ####[facility] LABORATORYCLIA [id number] [address] [place] Basophils (Bld) [#/Vol] 0.00 10*3/uL Normal <0.11 [facility] Comment on above: Order Comment: Speci men Type: BLOOD SPECIMENOrdering Facility: [facility] Address: [address] [place] [address] Performed By: #### 5 8410-2, 41034-5 ####[facility]ORATORYCLIA [id number] [address] [place] Basophils/100 WBC (Bld) 0.0 % Normal [facility] Comment on above: Order Comment: Speci men Type: BLOOD SPECIMENOrdering Facility: [facility] Address: [address] [place] [address] Performed By: #### 5 8410-2, 00022-5 ####[facility]ORATORYCLIA [id number] [address] [place] Differential cell count method Nom (Bld) Manual Normal [facility] Comment on above: Order Comment: Speci men Type: BLOOD SPECIMENOrdering Facility: [facility] Address: [address] [place] [address] Performed By: #### 5 8410-2, 54934-0 ####[facility]ORATORYCLIA [id number] [place] [address] [place] Eosinophils (Bld) [#/Vol] 0.00 10*3/uL Normal <0.46 [facility] Comment on above: Order Comment: Speci men Type: BLOOD SPECIMENOrdering Facility: [facility] Address: [address] [place] [address] Performed By: #### 5 8410-2, 66253-9 ####[facility]ATORYCLIA [id number] [address] [place] Eosinophils/100 WBC (Bld) 0.0 % Normal [facility] Comment on above: Order Comment: Speci men Type: BLOOD SPECIMENOrdering Facility: [facility] Address: [address] [place] [address] Performed By: #### 5 8410-2, 13232-4 ####[facility]ATORYCLIA [id number] [place] [address] [place] Lymphocytes (Bld) [#/Vol] 1.03 10*3/uL Normal 1.00-4.00 [facility] Comment on above: Order Comment: Speci men Type: BLOOD SPECIMENOrdering Facility: [facility] Address: [address] [place] [address] Performed By: #### 5 8410-2, 77173-5 ####[facility]ATORYCLIA [id number] [address] [place] Lymphocytes/100 WBC (Bld) 6.0 % Normal [facility] Comment on above: Order Comment: Speci men Type: BLOOD SPECIMENOrdering Facility: [facility] Address: [address] [place] [address] Performed By: #### 5 8410-2, 45711-2 ####[facility] LABORATORYCLIA [id number] [address] Metamyelocytes/100 WBC (Bld) 4.0 % Normal [facility] Comment on above: Order Comment: Speci men Type: BLOOD SPECIMENOrdering Facility: [facility] Address: [address] [place] [address] Performed By: #### 5 8410-2, 64507-3 ####[facility]ATORYCLIA [id number] [place] [address] [place] Monocytes (Bld) [#/Vol] 2.40 10*3/uL High <0.87 [facility] Comment on above: Order Comment: Speci men Type: BLOOD SPECIMENOrdering Facility: [facility] Address: [address] [place] [address] Performed By: #### 5 8410-2, 78878-3 ####[facility]ATORYCLIA [id number] [address] [place] Monocytes/100 WBC (Bld) 14.0 % Normal [facility] Comment on above: Order Comment: Speci men Type: BLOOD SPECIMENOrdering Facility: [facility] Address: [address] [place] [address] Performed By: #### 5 8410-2, 66491-4 ####[facility]ATORYCLIA [id number] [place] [address] [place] Neutrophils (Bld) [#/Vol] 13.00 10*3/uL High 1.45-7.50 [facility] Comment on above: Order Comment: Speci men Type: BLOOD SPECIMENOrdering Facility: [facility] Address: [address] [place] [address] Performed By: #### 5 8410-2, 79577-9 ####[facility]ORATORYCLIA [id number] [address] [place] Neutrophils/100 WBC (Bld) 76.0 % Normal [facility] Comment on above: Order Comment: Speci men Type: BLOOD SPECIMENOrdering Facility: [facility] Address: [address] [place] [address] Performed By: #### 5 8410-2, 06422-0 ####[facility] LABORATORYCLIA [id number] [address] [place] Nucleated RBC/100 WBC (Bld) [Ratio] 0.0 /100 WBC Normal [facility] Comment on above: Order Comment: Speci men Type: BLOOD SPECIMENOrdering Facility: [facility] Address: [address] [place] [address] Performed By: #### 5 8410-2, 55060-2 ####[facility]ATORYCLIA [id number] [place] [address] [place] Platelets Estimate (Bld) [#/Vol] Adequate Normal [facility] Comment on above: Order Comment: Speci men Type: BLOOD SPECIMENOrdering Facility: [facility] Address: [address] [place] [address] Performed By: #### 5 8410-2, 06704-6 ####[facility]ATORYCLIA [id number] [place] [address] [place] Polychromasia LM Ql (Bld) Slight Normal [facility] Comment on above: Order Comment: Speci men Type: BLOOD SPECIMENOrdering Facility: [facility] Address: [address] [place] [address] Performed By: #### 5 8410-2, 60750-7 ####[facility]ORATORYCLIA [id number] [address] [place] RED CELL MORPH Reviewed: see result s of individual morphologies Normal [facility] Comment on above: Order Comment: Speci men Type: BLOOD SPECIMENOrdering Facility: [facility] Address: [address] [place] [address] Performed By: #### 5 8410-2, 74314-1 ####[facility]ORATORYCLIA [id number] [address] [place] CBC panel Auto (Bld)on 12-14 Erythrocyte distribution width (RBC) [Ratio] 22.9 % High 11.5-15.0 [facility] Comment on above: Order Comment: Speci men Type: BLOOD SPECIMENOrdering Facility: [facility] Address: [address] [place] [address] Performed By: #### 5 8410-2, 40453-3 ####[facility] LABORATORYCLIA [id number] [address] STATES OF [facility] Hematocrit (Bld) [Volume fraction] 24.5 % Low 39.0-51.0 [facility] Comment on above: Order Comment: Speci men Type: BLOOD SPECIMENOrdering Facility: [facility] Address: [address] [place] [address] Performed By: #### 5 8410-2, 23027-6 ####[facility]ORATORYCLIA [id number] [address] [place] Hemoglobin (Bld) [Mass/Vol] 8.2 g/dL Low 13.0-17.0 [facility] Comment on above: Order Comment: Speci men Type: BLOOD SPECIMENOrdering Facility: [facility] Address: [address] [place] [address] Performed By: #### 5 8410-2, 32238-5 ####[facility]ORATORYCLIA [id number] [address] MCH (RBC) [Entitic mass] 31.4 pg Normal 26.0-34.0 [facility] Comment on above: Order Comment: Speci men Type: BLOOD SPECIMENOrdering Facility: [facility] Address: [address] [place] [address] Performed By: #### 5 8410-2, 48029-2 ####[facility]ORATORYCLIA [id number] [address] OF [facility] MCHC (RBC) [Mass/Vol] 33.5 g/dL Normal 30.5-36.0 [facility] Comment on above: Order Comment: Speci men Type: BLOOD SPECIMENOrdering Facility: [facility] Address: [address] [place] [address] Performed By: #### 5 8410-2, 55141-9 ####[facility]ORATORYCLIA [id number] [address] OF [facility] MCV (RBC) [Entitic vol] 93.9 fL Normal 80.0-100.0 [facility] Comment on above: Order Comment: Speci men Type: BLOOD SPECIMENOrdering Facility: [facility] Address: [address] [place] [address] Performed By: #### 5 8410-2, 35483-8 ####[facility]ORATORYCLIA [id number] [address] OF [facility] Platelet mean volume (Bld) [Entitic vol] 9.4 fL Normal 9.0-12.7 [facility] Comment on above: Order Comment: Speci men Type: BLOOD SPECIMENOrdering Facility: [facility] Address: [address] [place] [address] Performed By: #### 5 8410-2, 33476-2 ####[facility]ORATORYCLIA [id number] [address] [place] Platelets (Bld) [#/Vol] 441 10*3/uL High 150-400 [facility] Comment on above: Order Comment: Speci men Type: BLOOD SPECIMENOrdering Facility: [facility] Address: [address] [place] [address] Performed By: #### 5 8410-2, 08969-1 ####[facility]ORATORYCLIA [id number] [place] [address] [place] RBC (Bld) [#/Vol] 2.61 10*6/uL Low 4.20-6.00 [facility] Comment on above: Order Comment: Speci men Type: BLOOD SPECIMENOrdering Facility: [facility] Address: [address] [place] [address] Performed By: #### 5 8410-2, 20936-5 ####[facility]ORATORYCLIA [id number] [address] STATES OF [facility] WBC (Bld) [#/Vol] 17.11 10*3/uL High 3.70-11.00 [facility] Comment on above: Order Comment: Speci men Type: BLOOD SPECIMENOrdering Facility: [facility] Address: [address] [place] [address] Performed By: #### 5 8410-2, 13610-0 ####[facility]ORATORYCLIA [id number] [address] [place] Renal function 2000 panelon 12-14-2024 Albumin [Mass/Vol] 3.1 g/dL Low 3.9-4.9 [facility] Comment on above: Order Comment: Speci men Type: BLOOD SPECIMENOrdering Facility: [facility] Address: [address] [place] [address] Performed By: #### 2 4362-6 ####[facility]ORATORYCLIA [id number] [address] Anion gap [Moles/Vol] 11 mmol/L Normal 8-15 [facility] Comment on above: Order Comment: Speci men Type: BLOOD SPECIMENOrdering Facility: [facility] Address: [address] [place] [address] Performed By: #### 2 4362-6 ####[facility]ORATORYCLIA [id number] [place] [address] [place] Calcium [Mass/Vol] 9.2 mg/dL Normal 8.5-10.2 [facility] Comment on above: Order Comment: Speci men Type: BLOOD SPECIMENOrdering Facility: [facility] Address: [address] [place] [address] Performed By: #### 2 4362-6 ####[facility]ORATORYCLIA [id number] [place] [address] [place] Chloride [Moles/Vol] 93 mmol/L Low 98-107 [facility] Comment on above: Order Comment: Speci men Type: BLOOD SPECIMENOrdering Facility: [facility] Address: [address] [place] [address] Performed By: #### 2 4362-6 ####[facility]ORATORYCLIA [id number] [address] [place] CO2 [Moles/Vol] 27 mmol/L Normal 22-30 [facility] Comment on above: Order Comment: Speci men Type: BLOOD SPECIMENOrdering Facility: [facility] Address: [address] [place] [address] Performed By: #### 2 4362-6 ####[facility]ORATORYCLIA [id number] [address] [place] Creatinine [Mass/Vol] 1.36 mg/dL High 0.73-1.22 [facility] Comment on above: Order Comment: Speci men Type: BLOOD SPECIMENOrdering Facility: [facility] Address: [address] [place] [address] Performed By: #### 2 4362-6 ####[facility]ORATORYCLIA [id number] [address] [place] Creatinine and Glomerular filtration rate.predicted panel (S/P/Bld) 56 mL/min/1.73m??? Low >=60 [facility] Comment on above: Order Comment: Franchesca estrada Type: BLOOD SPECIMENOrdering Facility: [facility] Address: [address] [place] [address] Result Comment: Marcela mated Glomerular Filtration Rate [...] actual GFR. Performed By: #### 2 4362-6 ####[facility]ORATORYCLIA [id number] [place] [address] [place] Glucose [Mass/Vol] 97 mg/dL Normal 74-99 [facility] Comment on above: Order Comment: Franchesca estrada Type: BLOOD SPECIMENOrdering Facility: [facility] Address: [address] [place] [address] Result Comment: The [employer] Diabetes Association (ADA) provides guidance for cutoff [...] Standards of Medical Care in Diabetes 2016, [employer]. Diabetes Care. 2016.39(Suppl 1). Performed By: #### 2 4362-6 ####[facility]ORATORYCLIA [id number] [place] [id number] [place] Phosphate [Mass/Vol] 3.9 mg/dL Normal 2.7-4.8 [facility] Comment on above: Order Comment: Franchesca estrada Type: BLOOD SPECIMENOrdering Facility: [facility] Address: [address] [place] [id number] Performed By: #### 2 4362-6 ####[facility]ORATORYCLIA [id number] [address] STATES OF [facility] Potassium [Moles/Vol] 4.7 mmol/L Normal 3.7-5.1 [facility] Comment on above: Order Comment: Speci men Type: BLOOD SPECIMENOrdering Facility: [facility] Address: [address] [place] [address] Performed By: #### 2 4362-6 ####[facility]ORATORYCLIA [id number] [address] STATES [facility] Sodium [Moles/Vol] 131 mmol/L Low 136-144 [facility] Comment on above: Order Comment: Speci men Type: BLOOD SPECIMENOrdering Facility: [facility] Address: [address] [place] [address] Performed By: #### 2 4362-6 ####[facility]ORATORYCLIA [id number] [address] STATES [facility] Urea nitrogen [Mass/Vol] 27 mg/dL High 9-24 [facility] Comment on above: Order Comment: Speci men Type: BLOOD SPECIMENOrdering Facility: [facility] Address: [address] [place] [address] Performed By: #### 2 4362-6 ####[facility]ORATORYCLIA [id number] [address] STATES OF [facility] Bacteria Bld Culton 12-14-19 25 Bacteria identified Cx Nom (Bld) CULTURE, BLOOD: No growth 5 days Normal [facility] Comment on above: Performed By: #### 6 00-7 ####[facility]ORATORYCLIA [id number] [address] STATES OF [facility] Bacteria identified Cx Nom (Bld) CULTURE, BLOOD: No growth 5 days Normal [facility] Comment on above: Performed By: #### 6 00-7 ####[facility]ORATORYCLIA [id number] [address] [place] CBC panel Auto (Bld)on 12-13 Erythrocyte distribution width (RBC) [Ratio] 20.3 % High 11.5-15.0 [facility] Comment on above: Order Comment: Speci men Type: BLOOD SPECIMENOrdering Facility: [facility] Address: [address] [place] [address] Performed By: #### 5 8410-2 ####[facility] LABORATORYCLIA [id number] [address] OF [facility] Hematocrit (Bld) [Volume fraction] 22.5 % Low 39.0-51.0 [facility] Comment on above: Order Comment: Speci men Type: BLOOD SPECIMENOrdering Facility: [facility] Address: [address] [place] [address] Performed By: #### 5 8410-2 ####[facility]ORATORYCLIA [id number] [address] [place] Hemoglobin (Bld) [Mass/Vol] 7.5 g/dL Low 13.0-17.0 [facility] Comment on above: Order Comment: Speci men Type: BLOOD SPECIMENOrdering Facility: [facility] Address: [address] [place] [address] Performed By: #### 5 8410-2 ####[facility]ORATORYCLIA [id number] [address] [place] MCH (RBC) [Entitic mass] 31.9 pg Normal 26.0-34.0 [facility] Comment on above: Order Comment: Speci men Type: BLOOD SPECIMENOrdering Facility: [facility] Address: [address] [place] [address] Performed By: #### 5 8410-2 ####[facility]ORATORYCLIA [id number] [address] [place] MCHC (RBC) [Mass/Vol] 33.3 g/dL Normal 30.5-36.0 [facility] Comment on above: Order Comment: Speci men Type: BLOOD SPECIMENOrdering Facility: [facility] Address: [address] [place] [address] Performed By: #### 5 8410-2 ####[facility]ORATORYCLIA [id number] [address] [place] MCV (RBC) [Entitic vol] 95.7 fL Normal 80.0-100.0 [facility] Comment on above: Order Comment: Speci men Type: BLOOD SPECIMENOrdering Facility: [facility] Address: [address] [place] [address] Performed By: #### 5 8410-2 ####[facility]ORATORYCLIA [id number] [address] [place] Nucleated RBC (Bld) [#/Vol] 10*3/uL Normal <0.01 [facility] Comment on above: Order Comment: Speci men Type: BLOOD SPECIMENOrdering Facility: [facility] Address: [address] [place] [address] Performed By: #### 5 8410-2 ####[facility]ORATORYCLIA [id number] [address] Platelet mean volume (Bld) [Entitic vol] 9.5 fL Normal 9.0-12.7 [facility] Comment on above: Order Comment: Speci men Type: BLOOD SPECIMENOrdering Facility: [facility] Address: [address] [place] [address] Performed By: #### 5 8410-2 ####[facility]ORATORYCLIA [id number] [address] Platelets (Bld) [#/Vol] 322 10*3/uL Normal 150-400 [facility] Comment on above: Order Comment: Speci men Type: BLOOD SPECIMENOrdering Facility: [facility] Address: [address] [place] [address] Performed By: #### 5 8410-2 ####[facility]ORATORYCLIA [id number] [address] [place] RBC (Bld) [#/Vol] 2.35 10*6/uL Low 4.20-6.00 [facility] Comment on above: Order Comment: Speci men Type: BLOOD SPECIMENOrdering Facility: [facility] Address: [address] [place] [address] Performed By: #### 5 8410-2 ####[facility]ORATORYCLIA [id number] [place] [id number] [place] WBC (Bld) [#/Vol] 15.36 10*3/uL High 3.70-11.00 [facility] Comment on above: Order Comment: Speci men Type: BLOOD SPECIMENOrdering Facility: [facility] Address: [address] [place] [address] Performed By: #### 5 8410-2 ####[facility] LABORATORYCLIA [id number] [place] [id number] [place] CRP SerPl-mCncon 12-13-2024 CRP [Mass/Vol] 24.1 mg/dL High <0.9 [facility] Comment on above: Order Comment: Speci men Type: BLOOD SPECIMENOrdering Facility: [facility] Address: [address] [place] [address] Performed By: #### 1 9123-9, 28598-4, 1988-5, 68455-7 ####[facility]ORATORYCLIA [id number] [address] [place] Gas and Carbon monoxide pane l (BldV)on 12-13-2024 Base excess Calc (BldV) [Moles/Vol] 1 mmol/L Normal 0-2 [facility] Comment on above: Order Comment: Speci men Type: VENOUS BLOOD SPECIMENOrdering Facility: [facility] Address: [address] [place] [address] Performed By: #### 2 4344-4 ####[facility]ORATORYCLIA [id number] [place] [id number] [place] Body temperature 98.6 [degF] Normal [facility] Comment on above: Order Comment: Speci men Type: VENOUS BLOOD SPECIMENOrdering Facility: [facility] Address: [address] [place] [address] Performed By: #### 2 4344-4 ####[facility]ORATORYCLIA [id number] [address] OF [facility] Calcium.ionized (BldV) [Mass/Vol] 1.10 mmol/L Normal 1.08-1.30 [facility] Comment on above: Order Comment: Speci men Type: VENOUS BLOOD SPECIMENOrdering Facility: [facility] Address: [address] [place] [address] Performed By: #### 2 4344-4 ####[facility] LABORATORYCLIA [id number] [address] Calcium.ionized adjusted to pH 7.4 (BldA) [Moles/Vol] 1.06 mmol/L Low 1.08-1.30 [facility] Comment on above: Order Comment: Speci men Type: VENOUS BLOOD SPECIMENOrdering Facility: [facility] Address: [address] [place] [address] Performed By: #### 2 4344-4 ####[facility]ELCL[facility] [id number] [address] Carboxyhemoglobin (BldV) [Mass fraction] 4.3 % High 0.0-2.0 [facility] Comment on above: Order Comment: Speci men Type: VENOUS BLOOD SPECIMENOrdering Facility: [facility] Address: [address] [place] [address] Result Comment: Carb oxyhemoglobin Reference Range for Smokers: 2.0-8.0% Performed By: #### 2 4344-4 ####[facility]ORATORYCLIA [id number] [address] [place] Chloride [Moles/Vol] 98 mmol/L Normal 97-105 [facility] Comment on above: Order Comment: Speci men Type: VENOUS BLOOD SPECIMENOrdering Facility: [facility] Address: [address] [place] [address] Performed By: #### 2 4344-4 ####[facility] LABORATORYCLIA [id number] [address] [place] CO2 (BldV) [Partial pressure] 50 mm[Hg] Normal 42-55 [facility] Comment on above: Order Comment: Speci men Type: VENOUS BLOOD SPECIMENOrdering Facility: [facility] Address: [address] [place] [address] Performed By: #### 2 4344-4 ####[facility] LABORATORYCLIA [id number] [address] [place] Glucose [Mass/Vol] 122 mg/dL High 60-105 [facility] Comment on above: Order Comment: Speci men Type: VENOUS BLOOD SPECIMENOrdering Facility: [facility] Address: [address] [place] [address] Performed By: #### 2 4344-4 ####[facility]ORATORYCLIA [id number] [address] [place] HCO3 (Bld) [Moles/Vol] 26 mmol/L Normal 24-28 [facility] Comment on above: Order Comment: Speci men Type: VENOUS BLOOD SPECIMENOrdering Facility: [facility] Address: [address] [place] [address] Performed By: #### 2 4344-4 ####[facility] LABORATORYCLIA [id number] [address] [place] Hematocrit (Bld) [Volume fraction] 27.1 % Low 39.0-51.0 [facility] Comment on above: Order Comment: Speci men Type: VENOUS BLOOD SPECIMENOrdering Facility: [facility] Address: [address] [place] [address] Performed By: #### 2 4344-4 ####[facility] LABORATORYCLIA [id number] [place] [address] [place] Hemoglobin (Bld) [Mass/Vol] 8.7 g/dL Low 13.0-17.0 [facility] Comment on above: Order Comment: Speci men Type: VENOUS BLOOD SPECIMENOrdering Facility: [facility] Address: [address] [place] [address] Performed By: #### 2 4344-4 ####[facility]ORATORYCLIA [id number] [address] [place] Lactate [Moles/Vol] 1.7 mmol/L Normal 0.5-2.2 [facility] Comment on above: Order Comment: Speci men Type: VENOUS BLOOD SPECIMENOrdering Facility: [facility] Address: [address] [place] [address] Performed By: #### 2 4344-4 ####[facility] LABORATORYCLIA [id number] [address] [place] Methemoglobin (Bld) [Mass fraction] 0.9 % Normal 0.0-1.5 [facility] Comment on above: Order Comment: Speci men Type: VENOUS BLOOD SPECIMENOrdering Facility: [facility] Address: [address] [place] [address] Performed By: #### 2 4344-4 ####[facility] LABORATORYCLIA [id number] [address] STATES OF [facility] O2 THERAPY RA=Room Air Normal [facility] Comment on above: Order Comment: Speci men Type: VENOUS BLOOD SPECIMENOrdering Facility: [facility] Address: [address] [place] [address] Performed By: #### 2 4344-4 ####[facility] LABORATORYCLIA [id number] [address] [place] Oxygen (BldV) [Partial pressure] 79 mm[Hg] High 35-45 [facility] Comment on above: Order Comment: Speci men Type: VENOUS BLOOD SPECIMENOrdering Facility: [facility] Address: [address] [place] [address] Performed By: #### 2 4344-4 ####[facility] LABORATORYCLIA [id number] [address] [place] Oxygen saturation in Venous blood 94 % High 60-85 [facility] Comment on above: Order Comment: Speci men Type: VENOUS BLOOD SPECIMENOrdering Facility: [facility] Address: [address] [place] [address] Performed By: #### 2 4344-4 ####[facility]ORATORYCLIA [id number] [place] [address] [place] Oxyhemoglobin (BldV) [Mass fraction] 89 % High 60-85 [facility] Comment on above: Order Comment: Speci men Type: VENOUS BLOOD SPECIMENOrdering Facility: [facility] Address: [address] [place] [address] Performed By: #### 2 4344-4 ####[facility] LABORATORYCLIA [id number] [place] [address] [place] pH (BldV) 7.34 [pH] Normal 7.32-7.42 [facility] Comment on above: Order Comment: Speci men Type: VENOUS BLOOD SPECIMENOrdering Facility: [facility] Address: [address] [place] [address] Performed By: #### 2 4344-4 ####[facility] LABORATORYCLIA [id number] [address] [place] Potassium [Moles/Vol] 4.0 mmol/L Normal 3.5-5.0 [facility] Comment on above: Order Comment: Speci men Type: VENOUS BLOOD SPECIMENOrdering Facility: [facility] Address: [address] [place] [address] Performed By: #### 2 4344-4 ####[facility] LABORATORYCLIA [id number] [address] [place] Sodium [Moles/Vol] 132 mmol/L Low 136-144 [facility] Comment on above: Order Comment: Speci men Type: VENOUS BLOOD SPECIMENOrdering Facility: [facility] Address: [address] [place] [address] Performed By: #### 2 4344-4 ####[facility] LABORATORYCLIA [id number] [address] [place] Hgb Bld-ncon 12-13-2024 Hemoglobin (Bld) [Mass/Vol] 7.1 g/dL Low 13.0-17.0 [facility] Comment on above: Order Comment: Speci men Type: BLOOD SPECIMENOrdering Facility: [facility] Address: [address] [place] [address] Performed By: #### 7 18-7 ####[facility] LABORATORYCLIA [id number] [address] STATES OF [facility] Magnesium SerPl-mCncon 12-13 Magnesium [Mass/Vol] 1.8 mg/dL Normal 1.7-2.3 [facility] Comment on above: Order Comment: Speci men Type: BLOOD SPECIMENOrdering Facility: [facility] Address: [address] [place] [address] Performed By: #### 1 9123-9, 02585-0, 1987-10, ####[facility] CARMELCLIA [id number] [address] Procalcitonin SerPl-ncon 0 12-13-2024 Procalcitonin [Mass/Vol] 2.51 ng/mL High <0.09 [facility] Comment on above: Order Comment: Speci men Type: BLOOD SPECIMENOrdering Facility: [facility] Address: [address] [place] [address] Result Comment: For a guided interpretation of test results, please visit the Change in Procalcitonin Calculator, [email or web address]. Performed By: #### 1 9123-9, 89289-5, 1987-10, ####[facility] LABORATORYCLIA [id number] [address] [place] Renal function 2000 panelon 12-13-2024 Albumin [Mass/Vol] 3.0 g/dL Low 3.9-4.9 [facility] Comment on above: Order Comment: Speci men Type: BLOOD SPECIMENOrdering Facility: [facility] Address: [address] [place] [address] Performed By: #### 1 9123-9, 90968-3, 1987-10, 90570-5 ####[facility] LABORATORYCLIA [id number] [address] [place] Anion gap [Moles/Vol] 11 mmol/L Normal 8-15 [facility] Comment on above: Order Comment: Speci men Type: BLOOD SPECIMENOrdering Facility: [facility] Address: [address] [place] [address] Performed By: #### 1 9123-9, , 1987-10, ####[facility] LABORATORYCLIA [id number] [place] [address] [place] Calcium [Mass/Vol] 8.5 mg/dL Normal 8.5-10.2 [facility] Comment on above: Order Comment: Speci men Type: BLOOD SPECIMENOrdering Facility: [facility] Address: [address] [place] [address] Performed By: #### 1 9123-9, , 1987-10, ####[facility] LABORATORYCLIA [id number] [place] [address] [place] Chloride [Moles/Vol] 94 mmol/L Low 98-107 [facility] Comment on above: Order Comment: Speci men Type: BLOOD SPECIMENOrdering Facility: [facility] Address: [address] [place] [address] Performed By: #### 1 9123-9, , 1987-10, ####[facility] LABORATORYCLIA [id number] [place] [address] [place] CO2 [Moles/Vol] 26 mmol/L Normal 22-30 [facility] Comment on above: Order Comment: Speci men Type: BLOOD SPECIMENOrdering Facility: [facility] Address: [address] [place] [address] Performed By: #### 1 9123-9, , 1987-10, ####[facility] LABORATORYCLIA [id number] [place] [address] [place] Creatinine [Mass/Vol] 1.43 mg/dL High 0.73-1.22 [facility] Comment on above: Order Comment: Speci men Type: BLOOD SPECIMENOrdering Facility: [facility] Address: [address] [place], [place] [address] Performed By: #### 1 9123-9, 82233-8, 1987-10, ####[facility] CARMELCLIA [id number] [place] [id number] [place] Creatinine and Glomerular filtration rate.predicted panel (S/P/Bld) 53 mL/min/1.73m??? Low >=60 [facility] Comment on above: Order Comment: Franchesca estrada Type: BLOOD SPECIMENOrdering Facility: [facility] Address: [address] [place] [address] Result Comment: Marcela mated Glomerular Filtration Rate [...] actual GFR. Performed By: #### 1 9123-9, 59627-4, 1987-10, 41105-8 ####[facility]PITALIA [id number] [place] [id number] [place] Glucose [Mass/Vol] 92 mg/dL Normal 74-99 [facility] Comment on above: Order Comment: Franchesca estrada Type: BLOOD SPECIMENOrdering Facility: [facility] Address: [address] [place] [address] Result Comment: The [place] Diabetes Association (ADA) provides guidance for cutoff [...] Standards of Medical Care in Diabetes 2016, [employer] Diabetes Association. Diabetes Care. 2016.39(Suppl 1). Performed By: #### 1 9123-9, 12571-5, 1987-10, ####[facility] LABORATORYCLIA [id number] [place] [address] [place] Phosphate [Mass/Vol] 3.4 mg/dL Normal 2.7-4.8 [facility] Comment on above: Order Comment: Speci men Type: BLOOD SPECIMENOrdering Facility: [facility] Address: [address] [place] [address] Performed By: #### 1 9123-9, 77291-3, 1987-10, ####[facility] LABORATORYCLIA [id number] [place] [id number] [place] Potassium [Moles/Vol] 4.3 mmol/L Normal 3.7-5.1 [facility] Comment on above: Order Comment: Speci men Type: BLOOD SPECIMENOrdering Facility: [facility] Address: [address] [place] [address] Performed By: #### 1 9123-9, 80530-0, 1987-10, ####[facility] LABORATORYCLIA [id number] [place] [id number] [place] Sodium [Moles/Vol] 131 mmol/L Low 136-144 [facility] Comment on above: Order Comment: Speci men Type: BLOOD SPECIMENOrdering Facility: [facility] Address: [address] [place] [address] Performed By: #### 1 9123-9, , 1987-10, ####[facility] LABORATORYCLIA [id number] [place] [address] [place] Urea nitrogen [Mass/Vol] 29 mg/dL High 9-24 [facility] Comment on above: Order Comment: Speci men Type: BLOOD SPECIMENOrdering Facility: [facility] Address: [address] [place] [address] Performed By: #### 1 9123-9, , 1987-10, ####[facility] LABORATORYCLIA [id number] [place] [address] [place] STAPHYLOCOCCUS AUREUS AND MR SA SCREEN, PCR, NASALon 12-13-2024 S. aureus and MRSA panel MAKAYLA+probe (Nose) Not detected Normal Not Detected [facility] Comment on above: Order Comment: Speci men Type: SWABOrdering Facility: [facility] Address: [address] [place] [address] Performed By: #### S APCR ####[facility] LABORATORYCLIA [id number] [address] [place] TYPE + SCREENon 12-13-2024 ABO B Normal [facility] Comment on above: Order Comment: Speci men Type: BLOOD SPECIMENOrdering Facility: [facility] Address: [address] [place] [address] Performed By: #### T SCR ####[facility] BLOOD BANKCLIA [id number] [address] STATES OF [facility] Rh Nom (Bld) Positive Normal [facility] Comment on above: Order Comment: Speci men Type: BLOOD SPECIMENOrdering Facility: [facility] Address: [address] [place] [address] Performed By: #### T SCR ####[facility] BLOOD BANKCLIA [id number] [address] TYPE AND SCREEN EXPIRATION 12/16/2024 23:59 Normal [facility] Comment on above: Order Comment: Speci men Type: BLOOD SPECIMENOrdering Facility: [facility] Address: [address] [place] [address] Performed By: #### T SCR ####[facility] BLOOD BANKCLIA [id number] [address] [place] XR CHEST 1V FRONTALon 2024 XR CHEST 1V FRONTAL Normal [facility] Bacteria Spec Resp Culton Bacteria identified Respiratory culture Nom (Unsp spec) CULTURE, RESPIRATORY: Moderate Normal respiratory meghna present GRAM STAIN: Many Mixed oral meghna Moderate Polymorphonuclear leukocytes Rare Epithelial cells Abnormal [facility] Comment on above: Performed By: #### 3 2355-0 ####[facility] LABORATORYCLIA [id number] [address] STATES OF [facility] CBC W Ordered Manual Differe ntial panel (Bld)on 12-12-2024 ANISOCYTOSIS Present Normal [facility] Comment on above: Order Comment: Speci men Type: BLOOD SPECIMENOrdering Facility: [facility] Address: [address] [place] [address] Performed By: #### S TFREV, 61595-3 ####[facility]ORATORYCLIA [id number] [address] Basophils (Bld) [#/Vol] 0.00 10*3/uL Normal <0.11 [facility] Comment on above: Order Comment: Speci men Type: BLOOD SPECIMENOrdering Facility: [facility] Address: [address] [place] [address] Performed By: #### S TFREV, 52006-3 ####[facility] LABORATORYCLIA [id number] [address] STATES [facility] Basophils/100 WBC (Bld) 0.0 % Normal [facility] Comment on above: Order Comment: Speci men Type: BLOOD SPECIMENOrdering Facility: [facility] Address: [address] [place] [address] Performed By: #### S TFREV, 64050-4 ####[facility]ORATORYCLIA [id number] [address] Differential cell count method Nom (Bld) Manual Normal [facility] Comment on above: Order Comment: Speci men Type: BLOOD SPECIMENOrdering Facility: [facility] Address: [address] [place] [address] Performed By: #### S TFREV, 93684-0 ####[facility]ORATORYCLIA [id number] [address] [place] Eosinophils (Bld) [#/Vol] 0.00 10*3/uL Normal <0.46 [facility] Comment on above: Order Comment: Speci men Type: BLOOD SPECIMENOrdering Facility: [facility] Address: [address] [place] [address] Performed By: #### S TFREV, 12091-2 ####[facility] LABORATORYCLIA [id number] [address] OF [facility] Eosinophils/100 WBC (Bld) 0.0 % Normal [facility] Comment on above: Order Comment: Speci men Type: BLOOD SPECIMENOrdering Facility: [facility] Address: [address] [place] [address] Performed By: #### S TFREV, 85482-2 ####[facility] LABORATORYCLIA [id number] [address] [place] Erythrocyte distribution width (RBC) [Ratio] 20.6 % High 11.5-15.0 [facility] Comment on above: Order Comment: Speci men Type: BLOOD SPECIMENOrdering Facility: [facility] Address: [address] [place] [address] Performed By: #### S TFREV, 59210-1 ####[facility] LABORATORYCLIA [id number] [address] STATES OF [facility] Hematocrit (Bld) [Volume fraction] 21.1 % Low 39.0-51.0 [facility] Comment on above: Order Comment: Speci men Type: BLOOD SPECIMENOrdering Facility: [facility] Address: [address] [place] [address] Performed By: #### S TFREV, 79416-3 ####[facility] LABORATORYCLIA [id number] [address] [place] Hemoglobin (Bld) [Mass/Vol] 6.6 g/dL Low 13.0-17.0 [facility] Comment on above: Order Comment: Speci men Type: BLOOD SPECIMENOrdering Facility: [facility] Address: [address] [place] [address] Performed By: #### S TFREV, 39005-5 ####[facility] LABORATORYCLIA [id number] [address] [place] Lymphocytes (Bld) [#/Vol] 0.48 10*3/uL Low 1.00-4.00 [facility] Comment on above: Order Comment: Speci men Type: BLOOD SPECIMENOrdering Facility: [facility] Address: [address] [place] [address] Performed By: #### S TFRVALENCIA, 80856-9 ####[facility] LABORATORYCLIA [id number] [address] Lymphocytes/100 WBC (Bld) 3.0 % Normal [facility] Comment on above: Order Comment: Speci men Type: BLOOD SPECIMENOrdering Facility: [facility] Address: [address] [place] [address] Performed By: #### S TFRVALENCIA, 98484-4 ####[facility] LABORATORYCLIA [id number] [address] MCH (RBC) [Entitic mass] 30.3 pg Normal 26.0-34.0 [facility] Comment on above: Order Comment: Speci men Type: BLOOD SPECIMENOrdering Facility: [facility] Address: [address] [place] [address] Performed By: #### S TFRVALENCIA, 28847-1 ####[facility] LABORATORYCLIA [id number] [address] STATES OF [facility] MCHC (RBC) [Mass/Vol] 31.3 g/dL Normal 30.5-36.0 [facility] Comment on above: Order Comment: Speci men Type: BLOOD SPECIMENOrdering Facility: [facility] Address: [address] [place] [address] Performed By: #### S TFREV, 90520-8 ####[facility] LABORATORYCLIA [id number] [address] OF [facility] MCV (RBC) [Entitic vol] 96.8 fL Normal 80.0-100.0 [facility] Comment on above: Order Comment: Speci men Type: BLOOD SPECIMENOrdering Facility: [facility] Address: [address] [place] [address] Performed By: #### S TFREV, 36322-9 ####[facility]ORATORYCLIA [id number] [place] [address] [place] META% 4.0 % Normal [facility] Comment on above: Order Comment: Speci men Type: BLOOD SPECIMENOrdering Facility: [facility] Address: [address] [place] [address] Performed By: #### S TFREV, 32505-4 ####[facility]ORATORYCLIA [id number] [address] [place] Monocytes (Bld) [#/Vol] 1.91 10*3/uL High <0.87 [facility] Comment on above: Order Comment: Speci men Type: BLOOD SPECIMENOrdering Facility: [facility] Address: [address] [place] [address] Performed By: #### S TFREV, 09463-2 ####[facility]ORATORYCLIA [id number] [address] OF [facility] Monocytes/100 WBC (Bld) 12.0 % Normal [facility] Comment on above: Order Comment: Speci men Type: BLOOD SPECIMENOrdering Facility: [facility] Address: [address] [place] [address] Performed By: #### S TFREV, 94195-8 ####[facility]ORATORYCLIA [id number] [address] [place] MYELO% 4.0 % Normal [facility] Comment on above: Order Comment: Speci men Type: BLOOD SPECIMENOrdering Facility: [facility] Address: [address] [place] [address] Performed By: #### S TFREV, 75785-8 ####[facility]ORATORYCLIA [id number] [place] [address] [place] Neutrophils (Bld) [#/Vol] 12.27 10*3/uL High 1.45-7.50 [facility] Comment on above: Order Comment: Speci men Type: BLOOD SPECIMENOrdering Facility: [facility] Address: [address] [place] [address] Performed By: #### S TFREV, 94800-8 ####[facility]ORATORYCLIA [id number] [address] [place] Neutrophils/100 WBC (Bld) 77.0 % Normal [facility] Comment on above: Order Comment: Speci men Type: BLOOD SPECIMENOrdering Facility: [facility] Address: [address] [place] [address] Performed By: #### S TFREV, 80183-3 ####[facility] LABORATORYCLIA [id number] [address] [place] Nucleated RBC (Bld) [#/Vol] 10*3/uL Normal <0.01 [facility] Comment on above: Order Comment: Speci men Type: BLOOD SPECIMENOrdering Facility: [facility] Address: [address] [place] [address] Performed By: #### S TFREV, 15096-1 ####[facility] LABORATORYCLIA [id number] [address] Nucleated RBC/100 WBC (Bld) [Ratio] 0.0 /100 WBC Normal [facility] Comment on above: Order Comment: Speci men Type: BLOOD SPECIMENOrdering Facility: [facility] Address: [address] [place] [address] Performed By: #### S TFREV, 18603-6 ####[facility] LABORATORYCLIA [id number] [address] [place] Platelet mean volume (Bld) [Entitic vol] 9.1 fL Normal 9.0-12.7 [facility] Comment on above: Order Comment: Speci men Type: BLOOD SPECIMENOrdering Facility: [facility] Address: [address] [place] [address] Performed By: #### S TFREV, 42236-8 ####[facility]ATORYCLIA [id number] [address] [place] Platelets (Bld) [#/Vol] 445 10*3/uL High 150-400 [facility] Comment on above: Order Comment: Speci men Type: BLOOD SPECIMENOrdering Facility: [facility] Address: [address] [place] [address] Performed By: #### S TFREV, 88334-4 ####[facility]ATORYCLIA [id number] [place] [address] [place] Platelets Estimate (Bld) [#/Vol] Adequate Normal [facility] Comment on above: Order Comment: Speci men Type: BLOOD SPECIMENOrdering Facility: [facility] Address: [address] [place] [address] Performed By: #### S TFREV, 60296-0 ####[facility]ORATORYCLIA [id number] [address] Polychromasia LM Ql (Bld) Slight Normal [facility] Comment on above: Order Comment: Speci men Type: BLOOD SPECIMENOrdering Facility: [facility] Address: [address] [place] [address] Performed By: #### S TFREV, 50873-5 ####[facility] LABORATORYCLIA [id number] [address] [place] RBC (Bld) [#/Vol] 2.18 10*6/uL Low 4.20-6.00 [facility] Comment on above: Order Comment: Speci men Type: BLOOD SPECIMENOrdering Facility: [facility] Address: [address] [place] [address] Performed By: #### S TFREV, 51950-2 ####[facility]ORATORYCLIA [id number] [address] [place] RED CELL MORPH Reviewed: see result s of individual morphologies Normal [facility] Comment on above: Order Comment: Speci men Type: BLOOD SPECIMENOrdering Facility: [facility] Address: [address] [place] [address] Performed By: #### S TFREV, 55148-0 ####[facility] LABORATORYCLIA [id number] [address] WBC (Bld) [#/Vol] 15.94 10*3/uL High 3.70-11.00 [facility] Comment on above: Order Comment: Speci men Type: BLOOD SPECIMENOrdering Facility: [facility] Address: [address] [place] [address] Performed By: #### S TFREV, 63726-4 ####[facility] LABORATORYCLIA [id number] [address] CBC panel Auto (Bld)on 12-12 Erythrocyte distribution width (RBC) [Ratio] 20.1 % High 11.5-15.0 [facility] Comment on above: Order Comment: Speci men Type: BLOOD SPECIMENOrdering Facility: [facility] Address: [address] [place] [address] Performed By: #### 5 8410-2 ####[facility] LABORATORYCLIA [id number] [address] Hematocrit (Bld) [Volume fraction] 23.1 % Low 39.0-51.0 [facility] Comment on above: Order Comment: Speci men Type: BLOOD SPECIMENOrdering Facility: [facility] Address: [address] [place] [address] Performed By: #### 5 8410-2 ####[facility] LABORATORYCLIA [id number] [address] Hemoglobin (Bld) [Mass/Vol] 7.3 g/dL Low 13.0-17.0 [facility] Comment on above: Order Comment: Speci men Type: BLOOD SPECIMENOrdering Facility: [facility] Address: [address] [place] [address] Performed By: #### 5 8410-2 ####[facility] LABORATORYCLIA [id number] [address] MCH (RBC) [Entitic mass] 30.3 pg Normal 26.0-34.0 [facility] Comment on above: Order Comment: Speci men Type: BLOOD SPECIMENOrdering Facility: [facility] Address: [address] [place] [address] Performed By: #### 5 8410-2 ####[facility] LABORATORYCLIA [id number] [address] [place] MCHC (RBC) [Mass/Vol] 31.6 g/dL Normal 30.5-36.0 [facility] Comment on above: Order Comment: Speci men Type: BLOOD SPECIMENOrdering Facility: [facility] Address: [address] [place] [address] Performed By: #### 5 8410-2 ####[facility] LABORATORYCLIA [id number] [address] MCV (RBC) [Entitic vol] 95.9 fL Normal 80.0-100.0 [facility] Comment on above: Order Comment: Speci men Type: BLOOD SPECIMENOrdering Facility: [facility] Address: [address] [place] [address] Performed By: #### 5 8410-2 ####[facility] LABORATORYCLIA [id number] [address] Nucleated RBC (Bld) [#/Vol] 10*3/uL Normal <0.01 [facility] Comment on above: Order Comment: Speci men Type: BLOOD SPECIMENOrdering Facility: [facility] Address: [address] [place] [address] Performed By: #### 5 8410-2 ####[facility] LABORATORYCLIA [id number] [address] Platelet mean volume (Bld) [Entitic vol] 9.3 fL Normal 9.0-12.7 [facility] Comment on above: Order Comment: Speci men Type: BLOOD SPECIMENOrdering Facility: [facility] Address: [address] [place] [address] Performed By: #### 5 8410-2 ####[facility] LABORATORYCLIA [id number] [address] OF [facility] Platelets (Bld) [#/Vol] 513 10*3/uL High 150-400 [facility] Comment on above: Order Comment: Speci men Type: BLOOD SPECIMENOrdering Facility: [facility] Address: [address] [place] [address] Performed By: #### 5 8410-2 ####[facility] LABORATORYCLIA [id number] [place] [address] [place] RBC (Bld) [#/Vol] 2.41 10*6/uL Low 4.20-6.00 [facility] Comment on above: Order Comment: Speci men Type: BLOOD SPECIMENOrdering Facility: [facility] Address: [address] [place] [address] Performed By: #### 5 8410-2 ####[facility] LABORATORYCLIA [id number] [address] STATES OF [facility] WBC (Bld) [#/Vol] 13.85 10*3/uL High 3.70-11.00 [facility] Comment on above: Order Comment: Speci men Type: BLOOD SPECIMENOrdering Facility: [facility] Address: [address] [place] [address] Performed By: #### 5 8410-2 ####[facility] LABORATORYCLIA [id number] [address] [place] CYSTATIN Con 12-12-2024 Cystatin C [Mass/Vol] 1.99 mg/L High 0.61-0.95 [facility] Comment on above: Order Comment: Speci men Type: BLOOD SPECIMENOrdering Facility: [facility] Address: [address] [place] [address] Performed By: #### C YSTC ####[facility] LABCLIA [id number] [place] [address] [place] CYSTATIN C EGFR 30 mL/min/1.73m??? Low >=60 A [facility] Comment on above: Order Comment: Franchesca estrada Type: BLOOD SPECIMENOrdering Facility: [facility] Address: [address] [place] [address] Result Comment: Marcela mated Glomerular Filtration Rate (eGFR) is calculated using the 2012 CKD-EPI cystatin C equation. This equation utilizes serum cystatin C, sex, and age as parameters. The cystatin C assay has traceable calibration to the [facility]-DA471/[facility] reference material. Refer to KDIGO guidelines for clinical interpretation. In patients with unstable renal function, e.g. those with acute kidney injury, the eGFR may not accurately reflect actual GFR. Performed By: #### C YSTC ####[facility] LABCLIA [id number] [address] [place] D dimer FEU PPP-mCncon 12-12 Fibrin D-dimer FEU (PPP) [Mass/Vol] 2030 ng/mL FEU High <500 [facility] Comment on above: Order Comment: Frnachesca estrada Type: BLOOD SPECIMENOrdering Facility: [facility] Address: [address] [place] [address] Performed By: #### 3 255-7, 07788-2, 34917-0, 85818-9 ####[facility] LABORATORYCLIA [id number] [address] [place] Fibrin D-dimer FEU (PPP) [Ma ss/Vol]on 12-12-2024 D DIMER AGE-RELATED CUTOFF 690 ng/mL FEU Normal [facility] Comment on above: Order Comment: Franchesca estrada Type: BLOOD SPECIMENOrdering Facility: [facility] Address: [address] [place] [address] Performed By: #### 3 255-7, 92566-4, 38162-8, 81976-3 ####[facility] LABORATORYCLIA [id number] [place] [address] [place] Fibrinogen PPP-mCncon 2024 Fibrinogen Coag (PPP) [Mass/Vol] mg/dL High 200-400 [facility] Comment on above: Order Comment: Speci men Type: BLOOD SPECIMENOrdering Facility: [facility] Address: [address] [place] [address] Performed By: #### 3 255-7, 43145-6, 05033-6, 52168-4 ####[facility] LABORATORYCLIA [id number] [address] OF [facility] Gas and Carbon monoxide pane l (BldV)on 12-12-2024 Base excess Calc (BldV) [Moles/Vol] 0 mmol/L Normal 0-2 [facility] Comment on above: Order Comment: Speci men Type: VENOUS BLOOD SPECIMENOrdering Facility: [facility] Address: [address] [place] [address] Performed By: #### 2 4344-4 ####[facility] LABORATORYCLIA [id number] [address] STATES OF [facility] Body temperature 98.6 [degF] Normal [facility] Comment on above: Order Comment: Speci men Type: VENOUS BLOOD SPECIMENOrdering Facility: [facility] Address: [address] [place] [address] Performed By: #### 2 4344-4 ####[facility] LABORATORYCLIA [id number] [address] STATES OF [facility] Calcium.ionized (BldV) [Mass/Vol] 1.14 mmol/L Normal 1.08-1.30 [facility] Comment on above: Order Comment: Speci men Type: VENOUS BLOOD SPECIMENOrdering Facility: [facility] Address: [address] [place] [address] Performed By: #### 2 4344-4 ####[facility] LABORATORYCLIA [id number] [address] Calcium.ionized adjusted to pH 7.4 (BldA) [Moles/Vol] 1.04 mmol/L Low 1.08-1.30 [facility] Comment on above: Order Comment: Speci men Type: VENOUS BLOOD SPECIMENOrdering Facility: [facility] Address: [address] [place] [address] Performed By: #### 2 4344-4 ####[facility] LABORATORYCLIA [id number] [address] [place] Carboxyhemoglobin (BldV) [Mass fraction] 3.6 % High 0.0-2.0 [facility] Comment on above: Order Comment: Speci men Type: VENOUS BLOOD SPECIMENOrdering Facility: [facility] Address: [address] [place] [address] Result Comment: Carb oxyhemoglobin Reference Range for Smokers: 2.0-8.0% Performed By: #### 2 4344-4 ####[facility] LABORATORYCLIA [id number] [place] [address] [place] Chloride [Moles/Vol] 95 mmol/L Low 97-105 [facility] Comment on above: Order Comment: Speci men Type: VENOUS BLOOD SPECIMENOrdering Facility: [facility] Address: [address] [place] [address] Performed By: #### 2 4344-4 ####[facility] LABORATORYCLIA [id number] [address] [place] CO2 (BldV) [Partial pressure] 68 mm[Hg] High 42-55 [facility] Comment on above: Order Comment: Speci men Type: VENOUS BLOOD SPECIMENOrdering Facility: [facility] Address: [address] [place] [address] Performed By: #### 2 4344-4 ####[facility] LABORATORYCLIA [id number] [place] [address] [place] Glucose [Mass/Vol] 94 mg/dL Normal 60-105 [facility] Comment on above: Order Comment: Speci men Type: VENOUS BLOOD SPECIMENOrdering Facility: [facility] Address: [address] [place] [address] Performed By: #### 2 4344-4 ####[facility] LABORATORYCLIA [id number] [place] [address] [place] HCO3 (Bld) [Moles/Vol] 28 mmol/L Normal 24-28 [facility] Comment on above: Order Comment: Speci men Type: VENOUS BLOOD SPECIMENOrdering Facility: [facility] Address: [address] [place] [address] Performed By: #### 2 4344-4 ####[facility] LABORATORYCLIA [id number] [address] [place] Hematocrit (Bld) [Volume fraction] 21.3 % Low 39.0-51.0 [facility] Comment on above: Order Comment: Speci men Type: VENOUS BLOOD SPECIMENOrdering Facility: [facility] Address: [address] [place] [address] Performed By: #### 2 4344-4 ####[facility] LABORATORYCLIA [id number] [address] [place] Hemoglobin (Bld) [Mass/Vol] 6.8 g/dL Low 13.0-17.0 [facility] Comment on above: Order Comment: Speci men Type: VENOUS BLOOD SPECIMENOrdering Facility: [facility] Address: [address] [place] [address] Performed By: #### 2 4344-4 ####[facility] LABORATORYCLIA [id number] [address] [place] Lactate [Moles/Vol] 3.3 mmol/L High 0.5-2.2 [facility] Comment on above: Order Comment: Speci men Type: VENOUS BLOOD SPECIMENOrdering Facility: [facility] Address: [address] [place] [address] Performed By: #### 2 4344-4 ####[facility] LABORATORYCLIA [id number] [address] [place] Methemoglobin (Bld) [Mass fraction] 0.9 % Normal 0.0-1.5 [facility] Comment on above: Order Comment: Speci men Type: VENOUS BLOOD SPECIMENOrdering Facility: [facility] Address: [address] [place] [address] Performed By: #### 2 4344-4 ####[facility] LABORATORYCLIA [id number] [address] [place] O2 THERAPY RA=Room Air Normal [facility] Comment on above: Order Comment: Speci men Type: VENOUS BLOOD SPECIMENOrdering Facility: [facility] Address: [address] [place] [address] Performed By: #### 2 4344-4 ####[facility] LABORATORYCLIA [id number] [address] [place] Oxygen (BldV) [Partial pressure] 57 mm[Hg] High 35-45 [facility] Comment on above: Order Comment: Speci men Type: VENOUS BLOOD SPECIMENOrdering Facility: [facility] Address: [address] [place] [address] Performed By: #### 2 4344-4 ####[facility] LABORATORYCLIA [id number] [address] [place] Oxygen saturation in Venous blood 78 % Normal 60-85 [facility] Comment on above: Order Comment: Speci men Type: VENOUS BLOOD SPECIMENOrdering Facility: [facility] Address: [address] [place] [address] Performed By: #### 2 4344-4 ####[facility] LABORATORYCLIA [id number] [address] [place] Oxyhemoglobin (BldV) [Mass fraction] 75 % Normal 60-85 [facility] Comment on above: Order Comment: Speci men Type: VENOUS BLOOD SPECIMENOrdering Facility: [facility] Address: [address] [place] [address] Performed By: #### 2 4344-4 ####[facility] LABORATORYCLIA [id number] [place] [address] [place] pH (BldV) 7.23 [pH] Low 7.32-7.42 [facility] Comment on above: Order Comment: Speci men Type: VENOUS BLOOD SPECIMENOrdering Facility: [facility] Address: [facility] [place] [address] Performed By: #### 2 4344-4 ####[facility] LABORATORYCLIA [id number] [place] [address] [place] Potassium [Moles/Vol] 3.8 mmol/L Normal 3.5-5.0 [facility] Comment on above: Order Comment: Speci men Type: VENOUS BLOOD SPECIMENOrdering Facility: [facility] Address: [address] [place] [address] Performed By: #### 2 4344-4 ####[facility] LABORATORYCLIA [id number] [place] [address] [place] Sodium [Moles/Vol] 132 mmol/L Low 136-144 [facility] Comment on above: Order Comment: Speci men Type: VENOUS BLOOD SPECIMENOrdering Facility: [facility] Address: [address] [place] [address] Performed By: #### 2 4344-4 ####[facility] LABORATORYCLIA [id number] [address] [place] Haptoglob SerPl-mCncon 12-12 Haptoglobin [Mass/Vol] 142 mg/dL Normal 31-238 [facility] Comment on above: Order Comment: Speci men Type: BLOOD SPECIMENOrdering Facility: [facility] Address: [address] [place] [address] Performed By: #### 2 4362-6, 4542-7, 55523-4 ####[facility] LABORATORYCLIA [id number] [address] [place] Hepatic function 2000 panelo n 12-12-2024 ALP [Catalytic activity/Vol] 128 U/L High 38-113 [facility] Comment on above: Order Comment: Speci men Type: BLOOD SPECIMENOrdering Facility: [facility] Address: [address] [place] [address] Performed By: #### 2 4362-6, 4542-7, 04858-6 ####[facility] LABORATORYCLIA [id number] [address] [place] ALT With P-5'-P [Catalytic activity/Vol] 31 U/L Normal 10-54 [facility] Comment on above: Order Comment: Speci men Type: BLOOD SPECIMENOrdering Facility: [facility] Address: [address] [place] [address] Performed By: #### 2 4362-6, 4542-7, 03820-0 ####[facility] LABORATORYCLIA [id number] [place] [address] [place] AST With P-5'-P [Catalytic activity/Vol] 42 U/L High 14-40 [facility] Comment on above: Order Comment: Speci men Type: BLOOD SPECIMENOrdering Facility: [facility] Address: [address] [place] [address] Performed By: #### 2 4362-6, 4542-7, 58906-6 ####[facility] LABORATORYCLIA [id number] [place] [address] [place] Bilirubin [Mass/Vol] 1.1 mg/dL Normal 0.2-1.3 [facility] Comment on above: Order Comment: Speci men Type: BLOOD SPECIMENOrdering Facility: [facility] Address: [address] [place] [address] Performed By: #### 2 4362-6, 454-7, 32528-8 ####[facility] LABORATORYCLIA [id number] [address] [place] Bilirubin.conjugated [Mass/Vol] 0.6 mg/dL High <0.3 [facility] Comment on above: Order Comment: Speci men Type: BLOOD SPECIMENOrdering Facility: [facility] Address: [address] [place] [address] Performed By: #### 2 4362-6, 4542-7, 49060-1 ####[facility] LABORATORYCLIA [id number] [address] [place] Protein [Mass/Vol] 7.4 g/dL Normal 6.3-8.0 [facility] Comment on above: Order Comment: Speci men Type: BLOOD SPECIMENOrdering Facility: [facility] Address: [address] [place] [address] Performed By: #### 2 4362-6, 4542-7, 57513-3 ####[facility] LABORATORYCLIA [id number] [address] Hgb Bld-mCncon 12-12-2024 Hemoglobin (Bld) [Mass/Vol] 6.9 g/dL Low 13.0-17.0 [facility] Comment on above: Order Comment: Speci men Type: BLOOD SPECIMENOrdering Facility: [facility] Address: [address] [place] [address] Performed By: #### 7 18-7 ####[facility] LABORATORYCLIA [id number] [address] LDH SerPl-cCncon 12-12-2024 LDH [Catalytic activity/Vol] 384 U/L High 135-225 [facility] Comment on above: Order Comment: Speci men Type: BLOOD SPECIMENOrdering Facility: [facility] Address: [address] [place] [address] Performed By: #### 2 532-0 ####[facility] LABORATORYCLIA [id number] [address] PATHOLOGIST INTERPRETATION C BC/DIFFon 12-12-2024 [employer] Representatives review Jani (Unsp spec) [Interp] Reviewed by Kasi Figueroa MD [facility] Comment on above: Order Comment: Speci men Type: BLOOD SPECIMENOrdering Facility: [facility] Address: [address] [place] [address] Performed By: #### S TFREV, 19749-0 ####[facility] LABORATORYCLIA [id number] [address] STAFF REVIEW, CBCDIF Normal [facility] Comment on above: Order Comment: Speci men Type: BLOOD SPECIMENOrdering Facility: [facility] Address: [address] [place] [address] Performed By: #### S TFREV, 65942-0 ####[facility] LABORATORYCLIA [id number] [address] PT panel Coag (PPP)on 2024 INR Coag (PPP) [Relative time] 1.0 {INR} Normal 0.9-1.3 [facility] Comment on above: Order Comment: Franchesca estrada Type: BLOOD SPECIMENOrdering Facility: [facility] Address: [address] [place] [address] Result Comment: Lauren min K Antagonist (VKA) Therapeutic Range: INR 2 to 3 (Target INR of 2.5)Note: For patients treated with VKA drugs, such as warfarin, the [employer] 2012 Guideline recommends [...] al. Chest 2012, 141:7S-47SNishimura RA, et al. [facility] 2017, 70: 252-289 Performed By: #### 3 255-7, 25411-2, 91580-9, 11802-1 ####[facility] LABORATORYCLIA [id number] [place] [id number] [place] [facility] PT Coag (PPP) [Time] 11.4 s Normal 9.7-13.0 [facility] Comment on above: Order Comment: Speci men Type: BLOOD SPECIMENOrdering Facility: [facility] Address: [address] [place] [address] Performed By: #### 3 255-7, 94606-7, 46082-7, 57683-0 ####[facility] LABORATORYCLIA [id number] [place] [id number] [facility] Renal Func 2000 Pnl SerPlon 12-12-2024 Albumin [Mass/Vol] 3.2 g/dL Low 3.9-4.9 [facility] Comment on above: Order Comment: Speci men Type: BLOOD SPECIMENOrdering Facility: [facility] Address: [address] [place] [address] Performed By: #### 2 4362-6, 4542-7, 50485-3 ####[facility] LABORATORYCLIA [id number] [place] [address] [place] Renal function 2000 panelon 12-12-2024 Anion gap [Moles/Vol] 14 mmol/L Normal 8-15 [facility] Comment on above: Order Comment: Speci men Type: BLOOD SPECIMENOrdering Facility: [facility] Address: [address] [place] [address] Performed By: #### 2 4362-6, 4542-7, 82191-1 ####[facility] LABORATORYCLIA [id number] [place] [address] [place] Calcium [Mass/Vol] 8.9 mg/dL Normal 8.5-10.2 [facility] Comment on above: Order Comment: Speci men Type: BLOOD SPECIMENOrdering Facility: [facility] Address: [address] [place] [address] Performed By: #### 2 4362-6, 4542-7, 22447-3 ####[facility] LABORATORYCLIA [id number] [place] [address] [place] Chloride [Moles/Vol] 91 mmol/L Low 98-107 [facility] Comment on above: Order Comment: Speci men Type: BLOOD SPECIMENOrdering Facility: [facility] Address: [address] [place] [address] Performed By: #### 2 4362-6, 4542-7, 29867-2 ####[facility] LABORATORYCLIA [id number] [place] [address] [place] CO2 [Moles/Vol] 27 mmol/L Normal 22-30 [facility] Comment on above: Order Comment: Speci men Type: BLOOD SPECIMENOrdering Facility: [facility] Address: [address] [place] [address] Performed By: #### 2 4362-6, 4542-7, 77752-8 ####[facility]ELCL[facility] [id number] [place] [id number] [place] Creatinine [Mass/Vol] 1.42 mg/dL High 0.73-1.22 [facility] Comment on above: Order Comment: Speci men Type: BLOOD SPECIMENOrdering Facility: [facility] Address: [address] [place] [address] Performed By: #### 2 4362-6, 4542-7, 17538-6 ####[facility]ITAL[facility] [id number] [address] OF [facility] Creatinine and Glomerular filtration rate.predicted panel (S/P/Bld) 53 mL/min/1.73m??? Low >=60 [facility] Comment on above: Order Comment: Speci men Type: BLOOD SPECIMENOrdering Facility: [facility] Address: [address] [place] [address] Result Comment: Marcela mated Glomerular Filtration Rate [...] GFR. Performed By: #### 2 4362-6, 4542-7, 08300-1 ####[facility] LABORATORYCLIA [id number] [place] [id number] [place] Glucose [Mass/Vol] 100 mg/dL High 74-99 [facility] Comment on above: Order Comment: Speci sean Type: BLOOD SPECIMENOrdering Facility: [facility] Address: [address] [place] [address] Result Comment: The [employer] (ADA) provides guidance for cutoff [...] Standards of Medical Care in Diabetes 2016, [employer]. Diabetes Care. 2016.39(Suppl 1). Performed By: #### 2 4362-6, 4542-7, 69664-5 ####[facility] LABORATORYCLIA [id number] [place] [address] [place] Phosphate [Mass/Vol] 3.7 mg/dL Normal 2.7-4.8 [facility] Comment on above: Order Comment: Franchesca estrada Type: BLOOD SPECIMENOrdering Facility: [facility] Address: [address] [place] [address] Performed By: #### 2 4362-6, 4542-7, 92667-4 ####[facility] CARMELCLIA [id number] [place] [address] [place] Potassium [Moles/Vol] 4.0 mmol/L Normal 3.7-5.1 [facility] Comment on above: Order Comment: Franchesca estrada Type: BLOOD SPECIMENOrdering Facility: [facility] Address: [address] [place] [address] Performed By: #### 2 4362-6, 4542-7, 24447-3 ####[facility] CARMELCLIA [id number] [place] [address] [place] Sodium [Moles/Vol] 132 mmol/L Low 136-144 [facility] Comment on above: Order Comment: Franchesca estrada Type: BLOOD SPECIMENOrdering Facility: [facility] Address: [address] [place] [address] Performed By: #### 2 4362-6, 4542-7, 86791-2 ####[facility] LABORATORYCLIA [id number] [place] [address] [place] Urea nitrogen [Mass/Vol] 27 mg/dL High 9-24 [facility] Comment on above: Order Comment: Speci men Type: BLOOD SPECIMENOrdering Facility: [facility] Address: [address] [place] [address] Performed By: #### 2 4362-6, 4542-7, 99410-4 ####[facility] LABORATORYCLIA [id number] [address] [place] aPTT PPPon 12-12-2024 aPTT Coag (PPP) [Time] 33.0 s High 23.0-32.4 [facility] Comment on above: Order Comment: Speci men Type: BLOOD SPECIMENOrdering Facility: [facility] Address: [address] [place] [address] Performed By: #### 3 255-7, 04856-1, 04813-5, 94668-9 ####[facility] LABORATORYCLIA [id number] [place] [address] [place] ALLIED HEALTHon 12-11-2024 ALLIED HEALTH Normal [facility] CASE MGT INIT ASSESon 2024 CASE MGT INIT ASS Normal [facility] CBC panel Auto (Bld)on 12-11 Erythrocyte distribution width (RBC) [Ratio] 19.6 % High 11.5-15.0 [facility] Comment on above: Order Comment: Speci men Type: BLOOD SPECIMENOrdering Facility: [facility] Address: [address] [place] [address] Performed By: #### 5 5454-3 ####[facility] LABCLIA [id number] [address] [place]#### 12966-1 ####[facility] LABORATORYCLIA [id number] [address] [place] Hematocrit (Bld) [Volume fraction] 25.1 % Low 39.0-51.0 [facility] Comment on above: Order Comment: Speci men Type: BLOOD SPECIMENOrdering Facility: [facility] Address: [address] [place] [address] Performed By: #### 5 5454-3 ####[facility] LABCLIA [id number] [address] [place] [facility]#### [address]28-5 ####[facility] LABORATORYCLIA [id number] [address] [place] Hemoglobin (Bld) [Mass/Vol] 7.9 g/dL Low 13.0-17.0 [facility] Comment on above: Order Comment: Speci men Type: BLOOD SPECIMENOrdering Facility: [facility] Address: [address] [place] [address] Performed By: #### 5 5454-3 ####[facility] LABCLIA [id number] [address] [place]#### 31704-8 ####[facility] LABORATORYCLIA [id number] [address] [place] MCH (RBC) [Entitic mass] 29.8 pg Normal 26.0-34.0 [facility] Comment on above: Order Comment: Speci men Type: BLOOD SPECIMENOrdering Facility: [facility] Address: [address] [place] [address] Performed By: #### 5 5454-3 ####[facility] LABCLIA [id number] [address] [place] [facility]#### 90648-7 ####[facility] LABORATORYCLIA [id number] [address] [place] MCHC (RBC) [Mass/Vol] 31.5 g/dL Normal 30.5-36.0 [facility] Comment on above: Order Comment: Speci men Type: BLOOD SPECIMENOrdering Facility: [facility] Address: [address] [place] [address] Performed By: #### 5 5454-3 ####[facility] LABCLIA [id number] [address] [place]#### 62664-6 ####[facility] LABORATORYCLIA [id number] [address] MCV (RBC) [Entitic vol] 94.7 fL Normal 80.0-100.0 [facility] Comment on above: Order Comment: Speci men Type: BLOOD SPECIMENOrdering Facility: [facility] Address: [address] [place] [address] Performed By: #### 5 5454-3 ####[facility] LABCLIA [id number] [address] [place]#### 56140-2 ####[facility] LABORATORYCLIA [id number] [address] Nucleated RBC (Bld) [#/Vol] 10*3/uL Normal <0.01 [facility] Comment on above: Order Comment: Speci men Type: BLOOD SPECIMENOrdering Facility: [facility] Address: [address] [place] [address] Performed By: #### 5 5454-3 ####[facility] LABCLIA [id number] [address] [place]#### 67617-1 ####[facility] LABORATORYCLIA [id number] [address] Platelet mean volume (Bld) [Entitic vol] 9.1 fL Normal 9.0-12.7 [facility] Comment on above: Order Comment: Speci men Type: BLOOD SPECIMENOrdering Facility: [facility] Address: [address] [place] [address] Performed By: #### 5 5454-3 ####[facility] LABCLIA [id number] [address] [place]#### 04125-0 ####[facility] LABORATORYCLIA [id number] [place], [place] [address] [place] [address] [place] Platelets (Bld) [#/Vol] 480 10*3/uL High 150-400 [facility] Comment on above: Order Comment: Speci men Type: BLOOD SPECIMENOrdering Facility: [facility] Address: [address] [place] [address] Performed By: #### 5 5454-3 ####[facility] LABCLIA [id number] [place] [address] [place]#### 50242-5 ####[facility] LABORATORYCLIA [id number] [address] RBC (Bld) [#/Vol] 2.65 10*6/uL Low 4.20-6.00 [facility] Comment on above: Order Comment: Speci men Type: BLOOD SPECIMENOrdering Facility: [facility] Address: [address] [place] [address] Performed By: #### 5 5454-3 ####[facility] LABCLIA [id number] [address] STATES [facility]#### 37815-9 ####[facility] LABORATORYCLIA [id number] [address] [place] WBC (Bld) [#/Vol] 11.06 10*3/uL High 3.70-11.00 [facility] Comment on above: Order Comment: Speci men Type: BLOOD SPECIMENOrdering Facility: [facility] Address: [address] [place] [id number] Performed By: #### 5 5454-3 ####[facility] LABCLIA [id number] [place] [id number] [place]#### 09637-2 ####[facility] LABORATORYCLIA [id number] [place] [id number] [place] CONSULTon 12-11-2024 CONSULT Normal [facility] CT ABD/PEL WO IVCONon 2024 CT ABD/PEL WO IVCON Normal [facility] HbA1c (Bld)on 12-11-2024 Average glucose Estimated from glycated hemoglobin (Bld) [Mass/Vol] 103 mg/dL Normal [facility] Comment on above: Order Comment: Franchesca estrada Type: BLOOD SPECIMENOrdering Facility: [facility] Address: [address] [place] [address] Result Comment: eAG: (Estimated average glucose) is a calculated value from HgbA1c and is lifeline representatives of the average blood glucose level in the last 2-3 month period. Performed By: #### 5 5454-3 ####[facility] LABCLIA [id number] [address]#### 36707-8 ####[facility] [id number] [address] HbA1c (Bld) [Mass fraction] 5.2 % Normal 4.3-5.6 [facility] Comment on above: Order Comment: Franchesca estrada Type: BLOOD SPECIMENOrdering Facility: [facility] Address: [address] [place] [address] Result Comment: Amer ican Diabetes Association guidelines indicate that patients with HgbA1c in the range 5.7-6.4% are at increased risk for development of diabetes, and intervention by lifestyle modification may be beneficial. HgbA1c greater or equal to 6.5% is considered diagnostic of diabetes. Performed By: #### 5 5454-3 ####[facility] LABCLIA [id number] [address]#### 48321-8 ####[facility]ITAL[facility] [id number] [address] LIPID PANEL, NONFASTINGon Cholesterol [Mass/Vol] 107 mg/dL Normal <200 [facility] Comment on above: Order Comment: Speci men Type: BLOOD SPECIMENOrdering Facility: [facility] Address: [address] [place] [address] Result Comment: <200 mg/dL, Desirable 200-239 mg/dL, Borderline high>239 mg/dL, High Performed By: #### L IPNF, 75709-7, 46972-7, 37099-6, TSHRF ####[facility]ORATORYCLIA [id number] [address] [place] HDL CHOLESTEROL, NF 37 mg/dL Low >39 [facility] Comment on above: Order Comment: Speci men Type: BLOOD SPECIMENOrdering Facility: [facility] Address: [address] [place] [address] Result Comment: 40-5 9 mg/dL, Acceptable>59 mg/dL, High: Negative risk factor for coronary heart disease<40 mg/dL, Low: Positive risk factor for coronary heart disease Performed By: #### L IPNF, 30813-8, , 44870-9, TSHRF ####[facility] LABORATORYCLIA [id number] [address] [place] LDL CHOLESTEROL CALCULATED, NF 48 mg/dL Normal <100 [facility] Comment on above: Order Comment: Speci men Type: BLOOD SPECIMENOrdering Facility: [facility] Address: [address] [place] [address] Result Comment: <100 mg/dL, Optimal 100-129 mg/dL, Near optimal/above optimal 130-159 mg/dL, Borderline high 160-189 mg/dL, High>189 mg/dL, Very highSecondary prevention optimal LDL Cholesterol levels are recommended to be <70 mg/dLLDL cholesterol is calculated using the Newberry-NIH equation. Performed By: #### L IPNF, 51395-3, , 64133-2, TSHRF ####[facility] LABORATORYCLIA [id number] [address] [place] LDL/HDL RATIO, NF 1.30 mg/dL Normal <2.54 [facility] Comment on above: Order Comment: Speci men Type: BLOOD SPECIMENOrdering Facility: [facility] Address: [address] [place] [address] Result Comment: Sol hewitt:1. National Cholesterol Education Program ATP III Guideline At-A-Glance Quick Desk Reference: National Heart, Lung, and Blood Cass. National Institutes of Health. 2001: NIH Publication No. 01-3305.2. An International Atherosclerosis Society position paper: global recommendations for the management of dyslipidemia: executive summary, Atherosclerosis. 2014: 232(2):410-413. Performed By: #### L IPNF, 94274-3, 12724-2, 49284-8, TSHRF ####[facility] LABORATORYCLIA [id number] [address] [place] NON HDL CHOL, NF 70 mg/dL Normal <130 [facility] Comment on above: Order Comment: Speci men Type: BLOOD SPECIMENOrdering Facility: [facility] Address: [address] [place] [address] Result Comment: <130 mg/dL, Optimal 130-159 mg/dL, Near optimal/above optimal 160-189 mg/dL, Borderline high 190-219 mg/dL, High>219 mg/dL, Very highSecondary prevention optimal non HDL Cholesterol levels are recommended to be <100 mg/dL Performed By: #### L IPNF, 88351-8, , 13926-1, TSHRF ####[facility] LABORATORYCLIA [id number] [address] [place] T CHOL/HDL RATIO NF 2.89 mg/dL Normal <5.10 [facility] Comment on above: Order Comment: Speci men Type: BLOOD SPECIMENOrdering Facility: [facility] Address: [address] [place] [address] Performed By: #### L IPNF, 12289-0, , 44060-1, TSHRF ####[facility] LABORATORYCLIA [id number] [address] [place] TRIGLYCERIDES, NF 123 mg/dL Normal <150 [facility] Comment on above: Order Comment: Speci men Type: BLOOD SPECIMENOrdering Facility: [facility] Address: [address] [place] [address] Result Comment: <150 mg/dL, Normal 150-199 mg/dL, Borderline high 200-499 mg/dL, High>499 mg/dL, Very high Performed By: #### L IPNF, 31889-8, 68785-0, 50231-4, TSHRF ####[facility] LABORATORYCLIA [id number] [address] [place] VLDL CHOLESTEROL, NF 17 mg/dL Normal <30 [facility] Comment on above: Order Comment: Speci men Type: BLOOD SPECIMENOrdering Facility: [facility] Address: [address] [place] [address] Performed By: #### L IPNF, 76108-1, 28810-5, 95738-2, TSHRF ####[facility] LABORATORYCLIA [id number] [address] [place] Magnesium [facility] 12-11 Magnesium [Mass/Vol] 2.0 mg/dL Normal 1.7-2.3 [facility] Comment on above: Order Comment: Speci men Type: BLOOD SPECIMENOrdering Facility: [facility] Address: [address] [place] [address] Performed By: #### L IPCLEMENCIA, 49705-0, 11175-9, 59028-8, TSHRF ####[facility] LABORATORYCLIA [id number] [address] [place] NT-proBNP [facility] 12-11 Natriuretic peptide.B prohormone N-Terminal [Mass/Vol] 1593 pg/mL High <125 [facility] Comment on above: Order Comment: Speci men Type: BLOOD SPECIMENOrdering Facility: [facility] Address: [address] [place] [address] Performed By: #### L IPNF, 62174-5, 91771-7, 90233-1, TSHRF ####[facility] LABORATORYCLIA [id number] [place] [address] [place] NUTRITIONon 12-11-2024 NUTRITION Normal [facility] Renal function 2000 panelon 12-11-2024 Albumin [Mass/Vol] 3.2 g/dL Low 3.9-4.9 [facility] Comment on above: Order Comment: Speci men Type: BLOOD SPECIMENOrdering Facility: [facility] Address: [address] [place] [address] Performed By: #### L IPNF, 64304-9, 97699-2, 62642-2, TSHRF ####[facility] LABORATORYCLIA [id number] [place] [id number] [place] Anion gap [Moles/Vol] 10 mmol/L Normal 8-15 [facility] Comment on above: Order Comment: Speci men Type: BLOOD SPECIMENOrdering Facility: [facility] Address: [address] [place] [address] Performed By: #### L IPNF, 25231-2, 67345-7, 64659-2, TSHRF ####[facility] LABORATORYCLIA [id number] [place] [address] [place] Calcium [Mass/Vol] 9.0 mg/dL Normal 8.5-10.2 [facility] Comment on above: Order Comment: Speci men Type: BLOOD SPECIMENOrdering Facility: [facility] Address: [address] [place] [address] Performed By: #### L IPNF, 06598-7, 01190-3, 73587-2, TSHRF ####[facility] LABORATORYCLIA [id number] [place] [address] [place] Chloride [Moles/Vol] 92 mmol/L Low 98-107 [facility] Comment on above: Order Comment: Speci men Type: BLOOD SPECIMENOrdering Facility: [facility] Address: [address] [place] [address] Performed By: #### L IPNF, 34683-3, 51885-3, 35476-2, TSHRF ####[facility] LABORATORYCLIA [id number] [place] [address] [place] CO2 [Moles/Vol] 27 mmol/L Normal 22-30 [facility] Comment on above: Order Comment: Speci men Type: BLOOD SPECIMENOrdering Facility: [facility] Address: [address] [place] [address] Performed By: #### L IPNF, 29457-9, 78711-3, 12228-4, TSHRF ####[facility] LABORATORYCLIA [id number] [place] [address] [place] Creatinine [Mass/Vol] 1.49 mg/dL High 0.73-1.22 [facility] Comment on above: Order Comment: Speci men Type: BLOOD SPECIMENOrdering Facility: [facility] Address: [address] [place] [address] Performed By: #### L IPNF, 17063-6, 07198-4, 21303-1, TSHRF ####[facility] CARMELCLIA [id number] [address] Creatinine and Glomerular filtration rate.predicted panel (S/P/Bld) 50 mL/min/1.73m??? Low >=60 [facility] Comment on above: Order Comment: Franchesca estrada Type: BLOOD SPECIMENOrdering Facility: [facility] Address: [address] [place] [address] Result Comment: Marcela mated Glomerular Filtration Rate [...] actual GFR. Performed By: #### L IPNF, 58132-7, 72214-7, 71588-9, TSHRF ####[facility] LABORATORYCLIA [id number] [address] [place] Glucose [Mass/Vol] 95 mg/dL Normal 74-99 [facility] Comment on above: Order Comment: Speci men Type: BLOOD SPECIMENOrdering Facility: [facility] Address: [address] [place] [address] Result Comment: The [place] Diabetes Association (ADA) provides guidance for cutoff [...] Standards of Medical Care in Diabetes 2016, Swiss Diabetes Association. Diabetes Care. 2016.39(Suppl 1). Performed By: #### L IPNF, 06348-9, , 89245-2, TSHRF ####[facility] LABORATORYCLIA [id number] [place] [address] [place] Phosphate [Mass/Vol] 3.4 mg/dL Normal 2.7-4.8 [facility] Comment on above: Order Comment: Speci men Type: BLOOD SPECIMENOrdering Facility: [facility] Address: [address] [place] [address] Performed By: #### L IPNF, 52649-5, , 38696-6, TSHRF ####[facility] LABORATORYCLIA [id number] [place] [address] [place] Potassium [Moles/Vol] 3.7 mmol/L Normal 3.7-5.1 [facility] Comment on above: Order Comment: Speci men Type: BLOOD SPECIMENOrdering Facility: [facility] Address: [address] [place] [address] Performed By: #### L IPNF, 47489-3, , 19281-3, TSHRF ####[facility] LABORATORYCLIA [id number] [place] [address] [place] Sodium [Moles/Vol] 129 mmol/L Low 136-144 [facility] Comment on above: Order Comment: Speci men Type: BLOOD SPECIMENOrdering Facility: [facility] Address: [address] [place] [address] Performed By: #### L IPNF, 20897-1, 62515-8, 22987-6, TSHRF ####[facility] LABORATORYCLIA [id number] [address] [place] Urea nitrogen [Mass/Vol] 28 mg/dL High 9-24 [facility] Comment on above: Order Comment: Speci men Type: BLOOD SPECIMENOrdering Facility: [facility] Address: [address] [place] [address] Performed By: #### L IPNF, 07196-4, 40931-2, 88028-2, TSHRF ####[facility] LABORATORYCLIA [id number] [address] OF [facility] THERAPY NTon 12-11-2024 THERAPY NT Normal [facility] THERAPY NT Normal [facility] TSH W/REFLEX FT4on 5 TSH Qn 3.060 m[IU]/L Normal 0.270-4.200 [facility] Comment on above: Order Comment: Speci men Type: BLOOD SPECIMENOrdering Facility: [facility] Address: [address] [place] [address] Performed By: #### L IPNF, 09961-0, 58218-0, 86768-0, TSHRF ####[facility] LABORATORYCLIA [id number] [address] [place] CBC panel Auto (Bld)on 12-10 Erythrocyte distribution width (RBC) [Ratio] 19.0 % High 11.5-15.0 [facility] Comment on above: Order Comment: Speci men Type: BLOOD SPECIMENOrdering Facility: [facility] Address: [address] [place] [address] Performed By: #### 5 8410-2 ####[facility] LABORATORYCLIA [id number] [address] [place] Hematocrit (Bld) [Volume fraction] 24.1 % Low 39.0-51.0 [facility] Comment on above: Order Comment: Speci men Type: BLOOD SPECIMENOrdering Facility: [facility] Address: [address] [place] [address] Performed By: #### 5 8410-2 ####[facility] LABORATORYCLIA [id number] [address] STATES OF [facility] Hemoglobin (Bld) [Mass/Vol] 7.9 g/dL Low 13.0-17.0 [facility] Comment on above: Order Comment: Speci men Type: BLOOD SPECIMENOrdering Facility: [facility] Address: [address] [place] [address] Performed By: #### 5 8410-2 ####[facility] LABORATORYCLIA [id number] [address] [place] MCH (RBC) [Entitic mass] 29.8 pg Normal 26.0-34.0 [facility] Comment on above: Order Comment: Speci men Type: BLOOD SPECIMENOrdering Facility: [facility] Address: [address] [place] [address] Performed By: #### 5 8410-2 ####[facility] LABORATORYCLIA [id number] [address] [place] MCHC (RBC) [Mass/Vol] 32.8 g/dL Normal 30.5-36.0 [facility] Comment on above: Order Comment: Speci men Type: BLOOD SPECIMENOrdering Facility: [facility] Address: [address] [place] [address] Performed By: #### 5 8410-2 ####[facility] LABORATORYCLIA [id number] [address] [place] MCV (RBC) [Entitic vol] 90.9 fL Normal 80.0-100.0 [facility] Comment on above: Order Comment: Speci men Type: BLOOD SPECIMENOrdering Facility: [facility] Address: [address] [place] [address] Performed By: #### 5 8410-2 ####[facility] LABORATORYCLIA [id number] [address] [place] Nucleated RBC (Bld) [#/Vol] 10*3/uL Normal <0.01 [facility] Comment on above: Order Comment: Speci men Type: BLOOD SPECIMENOrdering Facility: [facility] Address: [address] [place] [address] Performed By: #### 5 8410-2 ####[facility] LABORATORYCLIA [id number] [address] [place] Platelet mean volume (Bld) [Entitic vol] 9.3 fL Normal 9.0-12.7 [facility] Comment on above: Order Comment: Speci men Type: BLOOD SPECIMENOrdering Facility: [facility] Address: [address] [place] [address] Performed By: #### 5 8410-2 ####[facility] LABORATORYCLIA [id number] [address] [place] Platelets (Bld) [#/Vol] 511 10*3/uL High 150-400 [facility] Comment on above: Order Comment: Speci men Type: BLOOD SPECIMENOrdering Facility: [facility] Address: [address] [place] [address] Performed By: #### 5 8410-2 ####[facility] LABORATORYCLIA [id number] [address] [place] RBC (Bld) [#/Vol] 2.65 10*6/uL Low 4.20-6.00 [facility] Comment on above: Order Comment: Speci men Type: BLOOD SPECIMENOrdering Facility: [facility] Address: [address] [place] [address] Performed By: #### 5 8410-2 ####[facility] LABORATORYCLIA [id number] [address] [place] WBC (Bld) [#/Vol] 14.75 10*3/uL High 3.70-11.00 [facility] Comment on above: Order Comment: Speci men Type: BLOOD SPECIMENOrdering Facility: [facility] Address: [address] [place] [address] Performed By: #### 5 8410-2 ####[facility] LABORATORYCLIA [id number] [place] [address] [place] CONSULTon 12-10-2024 CONSULT Normal [facility] Comprehensive metabolic 2000 panelon 12-10-2024 Albumin [Mass/Vol] 3.2 g/dL Low 3.9-4.9 [facility] Comment on above: Order Comment: Speci men Type: BLOOD SPECIMENOrdering Facility: [facility] Address: [address] [place] [address] Performed By: #### 2 4323-8, 83072-2, 2777-1 ####[facility] LABORATORYCLIA [id number] [address] [place] ALP [Catalytic activity/Vol] 144 U/L High 38-113 [facility] Comment on above: Order Comment: Speci men Type: BLOOD SPECIMENOrdering Facility: [facility] Address: [address] [place] [address] Performed By: #### 2 4323-8, 38413-8, 2777-1 ####[facility] LABORATORYCLIA [id number] [place] [address] [place] ALT With P-5'-P [Catalytic activity/Vol] 29 U/L Normal 10-54 [facility] Comment on above: Order Comment: Speci men Type: BLOOD SPECIMENOrdering Facility: [facility] Address: [address] [place] [address] Performed By: #### 2 4323-8, 34831-3, 2777-1 ####[facility] LABORATORYCLIA [id number] [place] [id number] [place] Anion gap [Moles/Vol] 11 mmol/L Normal 8-15 [facility] Comment on above: Order Comment: Speci men Type: BLOOD SPECIMENOrdering Facility: [facility] Address: [address] [place] [address] Performed By: #### 2 4323-8, 81266-8, 2777-1 ####[facility] LABORATORYCLIA [id number] [place] [address] [place] AST With P-5'-P [Catalytic activity/Vol] 33 U/L Normal 14-40 [facility] Comment on above: Order Comment: Speci men Type: BLOOD SPECIMENOrdering Facility: [facility] Address: [address] [place] [address] Performed By: #### 2 4323-8, 78205-2, 2777-1 ####[facility] LABORATORYCLIA [id number] [place] [address] [place] Bilirubin [Mass/Vol] 1.1 mg/dL Normal 0.2-1.3 [facility] Comment on above: Order Comment: Speci men Type: BLOOD SPECIMENOrdering Facility: [facility] Address: [address] [place] [address] Performed By: #### 2 4323-8, 08418-5, 2777-1 ####[facility] LABORATORYCLIA [id number] [place] [address] [place] Calcium [Mass/Vol] 8.8 mg/dL Normal 8.5-10.2 [facility] Comment on above: Order Comment: Speci men Type: BLOOD SPECIMENOrdering Facility: [facility] Address: [address] [place] [address] Performed By: #### 2 4323-8, 50541-4, 2777-1 ####[facility] LABORATORYCLIA [id number] [place] [address] [place] Chloride [Moles/Vol] 92 mmol/L Low 98-107 [facility] Comment on above: Order Comment: Speci men Type: BLOOD SPECIMENOrdering Facility: [facility] Address: [address] [place] [address] Performed By: #### 2 4323-8, 86482-2, 2777-1 ####[facility] LABORATORYCLIA [id number] [place] [address] [place] CO2 [Moles/Vol] 29 mmol/L Normal 22-30 [facility] Comment on above: Order Comment: Speci men Type: BLOOD SPECIMENOrdering Facility: [facility] Address: [address] [place] [address] Performed By: #### 2 4323-8, 74623-7, 2777-1 ####[facility] LABORATORYCLIA [id number] [place] [address] [place] Creatinine [Mass/Vol] 1.62 mg/dL High 0.73-1.22 [facility] Comment on above: Order Comment: Speci men Type: BLOOD SPECIMENOrdering Facility: [facility] Address: [address] [place] [address] Performed By: #### 2 4323-8, 81687-0, 2777-1 ####[facility] LABORATORYCLIA [id number] [address] Creatinine and Glomerular filtration rate.predicted panel (S/P/Bld) 46 mL/min/1.73m??? Low >=60 [facility] Comment on above: Order Comment: Speci men Type: BLOOD SPECIMENOrdering Facility: [facility] Address: [address] [place] [address] Result Comment: Marcela mated Glomerular Filtration Rate [...] actual GFR. Performed By: #### 2 4323-8, 39285-4, 2777-1 ####[facility] LABORATORYCLIA [id number] [place] [id number] [place] Glucose [Mass/Vol] 112 mg/dL High 74-99 [facility] Comment on above: Order Comment: Speci men Type: BLOOD SPECIMENOrdering Facility: [facility] Address: [address] [place] [address] Result Comment: The [employer] Diabetes Association (ADA) provides guidance for cutoff [...] Standards of Medical Care in Diabetes 2016, [employer] Diabetes [employer]. Diabetes Care. 2016.39(Suppl 1). Performed By: #### 2 4323-8, 02821-8, 2777-1 ####[facility] LABORATORYCLIA [id number] [place] [address] [place] Potassium [Moles/Vol] 3.5 mmol/L Low 3.7-5.1 [facility] Comment on above: Order Comment: Franchesca estrada Type: BLOOD SPECIMENOrdering Facility: [facility] Address: [address] [place] [address] Performed By: #### 2 4323-8, 26239-8, 2777-1 ####[facility] [id number] [place] [address] [place] Protein [Mass/Vol] 7.4 g/dL Normal 6.3-8.0 [facility] Comment on above: Order Comment: Franchesca estrada Type: BLOOD SPECIMENOrdering Facility: [facility] Address: [address] [place] [address] Performed By: #### 2 4323-8, 16941-4, 2777-1 ####[facility] LABORATORYCLIA [id number] [place] [address] [place] Sodium [Moles/Vol] 132 mmol/L Low 136-144 [facility] Comment on above: Order Comment: Franchesca estrada Type: BLOOD SPECIMENOrdering Facility: [facility] Address: [address] [place] [address] Performed By: #### 2 4323-8, 58061-3, 2777-1 ####[facility] LABORATORYCLIA [id number] [place] [address] [place] Urea nitrogen [Mass/Vol] 19 mg/dL Normal 9-24 [facility] Comment on above: Order Comment: Speci men Type: BLOOD SPECIMENOrdering Facility: [facility] Address: [address] [place], [place] [address] Performed By: #### 2 4323-8, 68192-7, 2777-1 ####[facility] LABORATORYCLIA [id number] [place] [address] [place] Creatinine Unsp time (U) [Ma ss/Vol]on 12-10-2024 Creatinine (U) [Mass/Vol] 51.1 mg/dL Normal 46.8-314.5 [facility] Comment on above: Order Comment: Speci men Type: URINE SPECIMENOrdering Facility: [facility] Address: [address] [place], [place] [address] Performed By: #### 3 5674-1, UUNR, 2695-5, 82935-9 ####[facility] LABORATORYCLIA [id number] [address] ED NOTEon 12-10-2024 ED NOTE HNO ID: [id number] Author: STEVENSON JACKSON RN Service: Emergency Medicine Author Type: Registered Nurse Type: ED Notes Filed: 12/10/2024 08:40 Note Text: Breakfast tray to pt [facility] ED NOTE HNO ID: [id number] Author: MACHO PATTON, TOMAS Service: ? Author Type: Registered Nurse Type: ED Notes Filed: 12/10/2024 07:14 Note Text: Report given to Reina MARIN Normal [facility] ED NOTE HNO ID: [id number] Author: MACHO PATTON RN Service: ? Author Type: Registered Nurse Type: ED Notes Filed: 12/10/2024 06:30 Note Text: MICU team to reevaluate pt for downgrade to medical. MICU RN's will not accept pt at this time. Normal [facility] ED NOTE Normal [facility] ED NOTE HNO ID: [id number] Author: MACHO PATTON RN Service: ? Author Type: Registered Nurse Type: ED Notes Filed: 12/10/2024 05:15 Note Text: Trialling off of bipap at this time per Dr. Leda DALLAS. Normal [facility] ED NOTE HNO ID: [id number] Author: MACHO PATTON RN Service: ? Author Type: Registered Nurse Type: ED Notes Filed: 12/10/2024 02:53 Note Text: RN pulled from pt for critical care. Normal [facility] HISTORY PHYSICALon HISTORY PHYSICAL Normal [facility] Osmolality Uron 12-10-2024 Osmolality (U) [Osmolality] 280 mosm/kg Normal 50-1200 [facility] Comment on above: Order Comment: Speci men Type: URINE SPECIMENOrdering Facility: [facility] Address: [address] [place] [address] Performed By: #### 3 5674-1, UUNR, 2695-5, 92802-2 ####[facility] LABORATORYCLIA [id number] [place] [address] [place] Phosphate SerPl-mCncon 12-10 Phosphate [Mass/Vol] 4.4 mg/dL Normal 2.7-4.8 [facility] Comment on above: Order Comment: Speci men Type: BLOOD SPECIMENOrdering Facility: [facility] Address: [address] [place] [address] Performed By: #### 2 4323-8, 48305-3, 2777-1 ####[facility] LABORATORYCLIA [id number] [place] [address] [place] Procalcitonin SerPl-mCncon 0 12-10-2024 Procalcitonin [Mass/Vol] 12.90 ng/mL High <0.09 [facility] Comment on above: Order Comment: Speci men Type: BLOOD SPECIMENOrdering Facility: [facility] Address: [address] [place] [address] Result Comment: For a guided interpretation of test results, please visit the Change in Procalcitonin Calculator, [email or web address]. Performed By: #### 2 4323-8, 24456-5, 2777-1 ####[facility] LABORATORYCLIA [id number] [place] [address] [place] Sodium ?Tm Ur-sCncon 025 Sodium Unsp time (U) [Moles/Vol] 21 mmol/L Normal 14-216 [facility] Comment on above: Order Comment: Speci men Type: URINE SPECIMENOrdering Facility: [facility] Address: [address] [place] [address] Performed By: #### 3 5674-1, RUBIO, 2695-5, 00733-5 ####[facility] LABORATORYCLIA [id number] [address] [place] UREA NITROGEN, RANDOM URINEo n 12-10-2024 UREA NITROGEN,UR,RAN 366 mg/dL Normal 140-1500 [facility] Comment on above: Order Comment: Speci men Type: URINE SPECIMENOrdering Facility: [facility] Address: [address] [place] [address] Performed By: #### 3 5674-1, RUBIO, 2694-5, 59765-7 ####[facility] LABORATORYCLIA [id number] [place] [address] [place] US KIDNEY/BLADDERon 12-11-19 25 US KIDNEY/BLADDER Normal [facility] Urinalysis complete panel (U )on 12-10-2024 Bacteria LM.HPF (Urine sed) [#/Area] Few Abnormal None Seen [facility] Comment on above: Order Comment: Speci men Type: URINE SPECIMENOrdering Facility: [facility] Address: [address] [place] [address] Performed By: #### 2 4356-8 ####[facility] LABORATORYCLIA [id number] [place] [address] [place] Bilirubin Ql (U) Negative Normal Negative [facility] Comment on above: Order Comment: Speci men Type: URINE SPECIMENOrdering Facility: [facility] Address: [address] [place] [address] Performed By: #### 2 4356-8 ####[facility] LABORATORYCLIA [id number] [address] [place] Clarity (Unsp spec) Clear Normal Clear [facility] Comment on above: Order Comment: Speci men Type: URINE SPECIMENOrdering Facility: [facility] Address: [address] [place] [address] Performed By: #### 2 4356-8 ####[facility] LABORATORYCLIA [id number] [address] [place] Color (U) Yellow Normal yellow [facility] Comment on above: Order Comment: Speci men Type: URINE SPECIMENOrdering Facility: [facility] Address: [address] [place] [address] Performed By: #### 2 4356-8 ####[facility] LABORATORYCLIA [id number] [address] Epithelial cells LM.HPF (Urine sed) [#/Area] Few Abnormal None Seen [facility] Comment on above: Order Comment: Speci men Type: URINE SPECIMENOrdering Facility: [facility] Address: [address] [place] [address] Performed By: #### 2 4356-8 ####[facility] LABORATORYCLIA [id number] [place] [id number] [place] Glucose Test strip (U) [Mass/Vol] Negative Normal Trace, Negative [facility] Comment on above: Order Comment: Speci men Type: URINE SPECIMENOrdering Facility: [facility] Address: [address] [place] [address] Performed By: #### 2 4356-8 ####[facility] LABORATORYCLIA [id number] [address] [place] Hemoglobin Ql (U) Trace Normal Negative, Trace [facility] Comment on above: Order Comment: Speci men Type: URINE SPECIMENOrdering Facility: [facility] Address: [address] [place] [address] Performed By: #### 2 4356-8 ####[facility] LABORATORYCLIA [id number] [address] Ketones Ql (U) Negative Normal Negative, Trace [facility] Comment on above: Order Comment: Speci men Type: URINE SPECIMENOrdering Facility: [facility] Address: [address] [place] [address] Performed By: #### 2 4356-8 ####[facility] LABORATORYCLIA [id number] [address] Leukocyte esterase Test strip Ql (U) Negative Normal Negative, 25 Judy/uL [facility] Comment on above: Order Comment: Speci men Type: URINE SPECIMENOrdering Facility: [facility] Address: [address] [place] [address] Performed By: #### 2 4356-8 ####[facility] LABORATORYCLIA [id number] [address] STATES [facility] Nitrite Ql (U) Negative Normal Negative [facility] Comment on above: Order Comment: Speci men Type: URINE SPECIMENOrdering Facility: [facility] Address: [address] [place] [address] Performed By: #### 2 4356-8 ####[facility] LABORATORYCLIA [id number] [address] [place] pH (U) 6.0 [pH] Normal 5.0-8.0 [facility] Comment on above: Order Comment: Speci men Type: URINE SPECIMENOrdering Facility: [facility] Address: [address] [place] [address] Performed By: #### 2 4356-8 ####[facility] LABORATORYCLIA [id number] [address] Protein (U) [Mass/Vol] Trace Normal Trace , Negative [facility] Comment on above: Order Comment: Speci men Type: URINE SPECIMENOrdering Facility: [facility] Address: [address] [place] [address] Performed By: #### 2 4356-8 ####[facility] LABORATORYCLIA [id number] [address] [place] RBC LM.HPF (Urine sed) [#/Area] 0-3 /HPF Normal 0-3 /HPF [facility] Comment on above: Order Comment: Speci men Type: URINE SPECIMENOrdering Facility: [facility] Address: [address] [place] [address] Performed By: #### 2 4356-8 ####[facility] LABORATORYCLIA [id number] [address] [place] Specific gravity (U) [Rel density] 1.012 Normal 1.005-1.030 [facility] Comment on above: Order Comment: Speci men Type: URINE SPECIMENOrdering Facility: [facility] Address: [address] [place] [address] Performed By: #### 2 4356-8 ####[facility] LABORATORYCLIA [id number] [address] Urobilinogen Ql (U) Normal Normal Normal [facility] Comment on above: Order Comment: Speci men Type: URINE SPECIMENOrdering Facility: [facility] Address: [address] [place] [address] Performed By: #### 2 4356-8 ####[facility] LABORATORYCLIA [id number] [address] [place] WBC LM.HPF (Urine sed) [#/Area] 6-10 /HPF Abnormal 0-5 /HPF [facility] Comment on above: Order Comment: Speci men Type: URINE SPECIMENOrdering Facility: [facility] Address: [address] [place] [address] Performed By: #### 2 4356-8 ####[facility] LABORATORYCLIA [id number] [address] [place] ABO AND RH ONLYon 12-09-2024 ABO B Normal [facility] Comment on above: Order Comment: Speci men Type: BLOOD SPECIMENOrdering Facility: [facility] Address: [address] [place] [address] Performed By: #### L [id number], ABORH, [id number], TRXN ####[facility] BLOOD BANKCLIA [id number] [place] [id number] [facility] Rh Nom (Bld) Positive Normal [facility] Comment on above: Order Comment: Speci men Type: BLOOD SPECIMENOrdering Facility: [facility] Address: [address] [place] [address] Performed By: #### L [id number], ABORH, [id number], TRXN ####[facility] BLOOD BANKCLIA [id number] [place] [id number] [facility] ALLIED HEALTHon 12-09-2024 ALLIED HEALTH Normal [facility] BLOOD BANK PLACEHOLDER, RAMOS SFUSION REACTION PATHOLOGY REPORTon 12-09-2024 BLOOD BANK REPORT, TRANSFUSION REACTION PATHOLOGY REPORT See Pathology Report Normal [facility] Comment on above: Order Comment: Speci men Type: BLOOD SPECIMENOrdering Facility: [facility] Address: [address] [place] [address] Performed By: #### L [id number], ABORH, [id number], TRXN ####[facility] BLOOD BANKCLIA [id number] [address] TYPE AND SCREEN EXPIRATION 12/12/2024 23:59 Normal [facility] Comment on above: Order Comment: Speci men Type: BLOOD SPECIMENOrdering Facility: [facility] Address: [address] [place] [address] Performed By: #### L [id number], ABORH, [id number], TRXN ####[facility] BLOOD BANKCLIA [id number] [address] BLOOD BANK REPORT, TRANSFUSI ON REACTION PATHOLOGY REPORTon 12-09-2024 PATHOLOGY INTERPRETATION Normal [facility] Comment on above: Order Comment: Speci men Type: BLOOD SPECIMENOrdering Facility: [facility] Address: [address] [place] [address] Result Comment: Inve stigation details: The patient is a 69 year old male with PMH of stage IV lung adenocarcinoma and alcohol dependence who presented to [facility] ED on 12/09/2024 with complaints of worsening [...] at 0945 EDT Performed By: #### L [id number] ####[facility] LABORATORYCLIA [id number] [place] [address] [place] Basic metabolic 2000 panelon 12-09-2024 Anion gap [Moles/Vol] 11 mmol/L Normal 8-15 [facility] Comment on above: Order Comment: Speci men Type: BLOOD SPECIMENOrdering Facility: [facility] Address: [address] [place] [address] [place] [address] Performed By: #### 1 9123-9, 09008-3 ####[facility] LABORATORYCLIA [id number] [place] [address] [place] Calcium [Mass/Vol] 9.0 mg/dL Normal 8.5-10.2 [facility] Comment on above: Order Comment: Speci men Type: BLOOD SPECIMENOrdering Facility: [facility] Address: [address] [place] [address] Performed By: #### 1 91239, 89691-2 ####[facility] LABORATORYCLIA [id number] [place] [address] [place] Chloride [Moles/Vol] 93 mmol/L Low 98-107 [facility] Comment on above: Order Comment: Speci men Type: BLOOD SPECIMENOrdering Facility: [facility] Address: [address] [place] [address] Performed By: #### 1 91239, 86126-9 ####[facility] LABORATORYCLIA [id number] [address] [place] CO2 [Moles/Vol] 29 mmol/L Normal 22-30 [facility] Comment on above: Order Comment: Speci men Type: BLOOD SPECIMENOrdering Facility: [facility] Address: [address] [place] [address] Performed By: #### 1 91239, ####[facility] LABORATORYCLIA [id number] [address] [place] Creatinine [Mass/Vol] 1.25 mg/dL High 0.73-1.22 [facility] Comment on above: Order Comment: Speci men Type: BLOOD SPECIMENOrdering Facility: [facility] Address: [address] [place] [address] Performed By: #### 1 91239, 86142-9 ####[facility] LABORATORYCLIA [id number] [address] [place] Creatinine and Glomerular filtration rate.predicted panel (S/P/Bld) 62 mL/min/1.73m??? Normal >=60 [facility] Comment on above: Order Comment: Franchesca estrada Type: BLOOD SPECIMENOrdering Facility: [facility] Address: [address] [place] [address] Result Comment: Marcela mated Glomerular Filtration Rate [...] actual GFR. Performed By: #### 1 9123-9, 83198-7 ####[facility] LABORATORYCLIA [id number] [place] [address] [place] Glucose [Mass/Vol] 100 mg/dL High 74-99 [facility] Comment on above: Order Comment: Franchesca estrada Type: BLOOD SPECIMENOrdering Facility: [facility] Address: [address] [place] [address] Result Comment: The [place] Diabetes Association (ADA) provides guidance for cutoff [...] Standards of Medical Care in Diabetes 2016, [employer] Diabetes [employer]. Diabetes Care. 2016.39(Suppl 1). Performed By: #### 1 9123-9, 55992-4 ####[facility] LABORATORYCLIA [id number] [place] [address] [place] Potassium [Moles/Vol] 4.1 mmol/L Normal 3.7-5.1 [facility] Comment on above: Order Comment: Franchesca estrada Type: BLOOD SPECIMENOrdering Facility: [facility] Address: [address] [place] [address] Performed By: #### 1 9123-9, 20412-8 ####[facility]ORATORYCLIA [id number] [address] [place] Sodium [Moles/Vol] 133 mmol/L Low 136-144 [facility] Comment on above: Order Comment: Speci men Type: BLOOD SPECIMENOrdering Facility: [facility] Address: [address] [place] [address] Performed By: #### 1 9123-9, 61653-5 ####[facility] LABORATORYCLIA [id number] [address] [place] Urea nitrogen [Mass/Vol] 15 mg/dL Normal 9-24 [facility] Comment on above: Order Comment: Speci men Type: BLOOD SPECIMENOrdering Facility: [facility] Address: [address] [place] [address] Performed By: #### 1 9123-9, ####[facility] LABORATORYCLIA [id number] [place] [address] [place] CBC W Auto Differential pane l (Bld)on 12-09-2024 Anisocytosis Ql (Bld) Present Normal [facility] Comment on above: Order Comment: Speci men Type: BLOOD SPECIMENOrdering Facility: [facility] Address: [address] [place] [address] Performed By: #### 5 7021-8 ####[facility] LABORATORYCLIA [id number] [address] [place] Basophils (Bld) [#/Vol] 0.00 10*3/uL Normal <0.11 [facility] Comment on above: Order Comment: Speci men Type: BLOOD SPECIMENOrdering Facility: [facility] Address: [address] [place] [address] Performed By: #### 5 7021-8 ####[facility] LABORATORYCLIA [id number] [address] [place] Basophils/100 WBC (Bld) 0.0 % Normal [facility] Comment on above: Order Comment: Speci men Type: BLOOD SPECIMENOrdering Facility: [facility] Address: [address] [place] [address] Performed By: #### 5 7021-8 ####[facility] LABORATORYCLIA [id number] [address] Differential cell count method Nom (Bld) Manual Normal [facility] Comment on above: Order Comment: Speci men Type: BLOOD SPECIMENOrdering Facility: [facility] Address: [address] [place] [address] Performed By: #### 5 7021-8 ####[facility] LABORATORYCLIA [id number] [address] Eosinophils (Bld) [#/Vol] 0.00 10*3/uL Normal <0.46 [facility] Comment on above: Order Comment: Speci men Type: BLOOD SPECIMENOrdering Facility: [facility] Address: [address] [place] [address] Performed By: #### 5 7021-8 ####[facility] LABORATORYCLIA [id number] [address] Eosinophils/100 WBC (Bld) 0.0 % Normal [facility] Comment on above: Order Comment: Speci men Type: BLOOD SPECIMENOrdering Facility: [facility] Address: [address] [place] [address] Performed By: #### 5 7021-8 ####[facility] LABORATORYCLIA [id number] [address] Erythrocyte distribution width (RBC) [Ratio] 20.2 % High 11.5-15.0 [facility] Comment on above: Order Comment: Speci men Type: BLOOD SPECIMENOrdering Facility: [facility] Address: [address] [place] [address] Performed By: #### 5 7021-8 ####[facility] LABORATORYCLIA [id number] [address] Hematocrit (Bld) [Volume fraction] 18.4 % Low 39.0-51.0 [facility] Comment on above: Order Comment: Speci men Type: BLOOD SPECIMENOrdering Facility: [facility] Address: [address] [place] [address] Performed By: #### 5 7021-8 ####[facility] LABORATORYCLIA [id number] [address] [place] Hemoglobin (Bld) [Mass/Vol] 5.9 g/dL Critically low 13.0-17.0 [facility] Comment on above: Order Comment: Speci men Type: BLOOD SPECIMENOrdering Facility: [facility] Address: [address] [place] [address] Result Comment: No c lot detected. Performed By: #### 5 7021-8 ####[facility] LABORATORYCLIA [id number] [address] [place] Lymphocytes (Bld) [#/Vol] 0.63 10*3/uL Low 1.00-4.00 [facility] Comment on above: Order Comment: Speci men Type: BLOOD SPECIMENOrdering Facility: [facility] Address: [address] [place] [address] Performed By: #### 5 7021-8 ####[facility] LABORATORYCLIA [id number] [address] [place] Lymphocytes/100 WBC (Bld) 6.0 % Normal [facility] Comment on above: Order Comment: Speci men Type: BLOOD SPECIMENOrdering Facility: [facility] Address: [address] [place] [address] Performed By: #### 5 7021-8 ####[facility] LABORATORYCLIA [id number] [place] [address] [place] MCH (RBC) [Entitic mass] 29.9 pg Normal 26.0-34.0 [facility] Comment on above: Order Comment: Speci men Type: BLOOD SPECIMENOrdering Facility: [facility] Address: [address] [place] [address] Performed By: #### 5 7021-8 ####[facility] LABORATORYCLIA [id number] [address] [place] MCHC (RBC) [Mass/Vol] 32.1 g/dL Normal 30.5-36.0 [facility] Comment on above: Order Comment: Speci men Type: BLOOD SPECIMENOrdering Facility: [facility] Address: [address] [place] [address] Performed By: #### 5 7021-8 ####[facility] LABORATORYCLIA [id number] [address] MCV (RBC) [Entitic vol] 93.4 fL Normal 80.0-100.0 [facility] Comment on above: Order Comment: Speci men Type: BLOOD SPECIMENOrdering Facility: [facility] Address: [address] [place] [address] Performed By: #### 5 7021-8 ####[facility] LABORATORYCLIA [id number] [address] Metamyelocytes/100 WBC (Bld) 2.0 % Normal [facility] Comment on above: Order Comment: Speci men Type: BLOOD SPECIMENOrdering Facility: [facility] Address: [address] [place] [address] Performed By: #### 5 7021-8 ####[facility] LABORATORYCLIA [id number] [address] [place] Monocytes (Bld) [#/Vol] 0.94 10*3/uL High <0.87 [facility] Comment on above: Order Comment: Speci men Type: BLOOD SPECIMENOrdering Facility: [facility] Address: [address] [place] [address] Performed By: #### 5 7021-8 ####[facility] LABORATORYCLIA [id number] [address] Monocytes/100 WBC (Bld) 9.0 % Normal [facility] Comment on above: Order Comment: Speci men Type: BLOOD SPECIMENOrdering Facility: [facility] Address: [address] [place] [address] Performed By: #### 5 7021-8 ####[facility] LABORATORYCLIA [id number] [place] [address] [place] MY[place]% 2.0 % Normal [facility] Comment on above: Order Comment: Speci men Type: BLOOD SPECIMENOrdering Facility: [facility] Address: [address] [place] [address] Performed By: #### 5 7021-8 ####[facility]ORATORYCLIA [id number] [place] [address] [place] Neutrophils (Bld) [#/Vol] 8.48 10*3/uL High 1.45-7.50 [facility] Comment on above: Order Comment: Speci men Type: BLOOD SPECIMENOrdering Facility: [facility] Address: [address] [place] [address] Performed By: #### 5 7021-8 ####[facility]ATORYCLIA [id number] [address] [place] Neutrophils/100 WBC (Bld) 81.0 % Normal [facility] Comment on above: Order Comment: Speci men Type: BLOOD SPECIMENOrdering Facility: [facility] Address: [address] [place] [address] Performed By: #### 5 7021-8 ####[facility]ATORYCLIA [id number] [place] [address] [place] Nucleated RBC (Bld) [#/Vol] 10*3/uL Normal <0.01 [facility] Comment on above: Order Comment: Speci men Type: BLOOD SPECIMENOrdering Facility: [facility] Address: [address] [place] [address] Performed By: #### 5 7021-8 ####[facility]ATORYCLIA [id number] [address] [place] Nucleated RBC/100 WBC (Bld) [Ratio] 0.0 /100 WBC Normal [facility] Comment on above: Order Comment: Speci men Type: BLOOD SPECIMENOrdering Facility: [facility] Address: [address] [place] [address] Performed By: #### 5 7021-8 ####[facility] LABORATORYCLIA [id number] [address] [place] Platelet mean volume (Bld) [Entitic vol] 9.4 fL Normal 9.0-12.7 [facility] Comment on above: Order Comment: Speci men Type: BLOOD SPECIMENOrdering Facility: [facility] Address: [address] [place] [address] Performed By: #### 5 7021-8 ####[facility] LABORATORYCLIA [id number] [address] [place] Platelets (Bld) [#/Vol] 568 10*3/uL High 150-400 [facility] Comment on above: Order Comment: Speci men Type: BLOOD SPECIMENOrdering Facility: [facility] Address: [address] [place] [address] Performed By: #### 5 7021-8 ####[facility] LABORATORYCLIA [id number] [address] [place] Platelets Estimate (Bld) [#/Vol] Increased Normal [facility] Comment on above: Order Comment: Speci men Type: BLOOD SPECIMENOrdering Facility: [facility] Address: [address] [place] [address] Performed By: #### 5 7021-8 ####[facility] LABORATORYCLIA [id number] [address] [place] Polychromasia LM Ql (Bld) Slight Normal [facility] Comment on above: Order Comment: Speci men Type: BLOOD SPECIMENOrdering Facility: [facility] Address: [address] [place] [address] Performed By: #### 5 7021-8 ####[facility]ORYCLIA [id number] [place] [address] [place] RBC (Bld) [#/Vol] 1.97 10*6/uL Low 4.20-6.00 [facility] Comment on above: Order Comment: Speci men Type: BLOOD SPECIMENOrdering Facility: [facility] Address: [address] [place] [address] Performed By: #### 5 7021-8 ####[facility] LABORATORYCLIA [id number] [address] RED CELL MORPH Reviewed: see result s of individual morphologies Normal [facility] Comment on above: Order Comment: Speci men Type: BLOOD SPECIMENOrdering Facility: [facility] Address: [address] [place] [address] Performed By: #### 5 7021-8 ####[facility] LABORATORYCLIA [id number] [address] OF [facility] WBC (Bld) [#/Vol] 10.47 10*3/uL Normal 3.70-11.00 [facility] Comment on above: Order Comment: Speci men Type: BLOOD SPECIMENOrdering Facility: [facility] Address: [address] [place] [address] Performed By: #### 5 7021-8 ####[facility] LABORATORYCLIA [id number] [address] CBC panel Auto (Bld)on 12-09 Erythrocyte distribution width (RBC) [Ratio] 18.6 % High 11.5-15.0 [facility] Comment on above: Order Comment: Speci men Type: BLOOD SPECIMENOrdering Facility: [facility] Address: [address] [place] [address] Performed By: #### 5 8410-2 ####[facility] LABORATORYCLIA [id number] [address] Hematocrit (Bld) [Volume fraction] 25.1 % Low 39.0-51.0 [facility] Comment on above: Order Comment: Speci men Type: BLOOD SPECIMENOrdering Facility: [facility] Address: [address] [place] [address] Performed By: #### 5 8410-2 ####[facility] LABORATORYCLIA [id number] [address] Hemoglobin (Bld) [Mass/Vol] 8.2 g/dL Low 13.0-17.0 [facility] Comment on above: Order Comment: Speci men Type: BLOOD SPECIMENOrdering Facility: [facility] Address: [address] [place] [address] Performed By: #### 5 8410-2 ####[facility] LABORATORYCLIA [id number] [address] MCH (RBC) [Entitic mass] 29.7 pg Normal 26.0-34.0 [facility] Comment on above: Order Comment: Speci men Type: BLOOD SPECIMENOrdering Facility: [facility] Address: [address] [place] [address] Performed By: #### 5 8410-2 ####[facility] LABORATORYCLIA [id number] [address] MCHC (RBC) [Mass/Vol] 32.7 g/dL Normal 30.5-36.0 [facility] Comment on above: Order Comment: Speci men Type: BLOOD SPECIMENOrdering Facility: [facility] Address: [address] [place] [address] Performed By: #### 5 8410-2 ####[facility] LABORATORYCLIA [id number] [address] MCV (RBC) [Entitic vol] 90.9 fL Normal 80.0-100.0 [facility] Comment on above: Order Comment: Speci men Type: BLOOD SPECIMENOrdering Facility: [facility] Address: [address] [place] [address] Performed By: #### 5 8410-2 ####[facility] LABORATORYCLIA [id number] [address] Nucleated RBC (Bld) [#/Vol] 10*3/uL Normal <0.01 [facility] Comment on above: Order Comment: Speci men Type: BLOOD SPECIMENOrdering Facility: [facility] Address: [address] [place] [address] Performed By: #### 5 8410-2 ####[facility] LABORATORYCLIA [id number] [address] STATES [facility] Platelet mean volume (Bld) [Entitic vol] 9.1 fL Normal 9.0-12.7 [facility] Comment on above: Order Comment: Speci men Type: BLOOD SPECIMENOrdering Facility: [facility] Address: [address] [place] [address] Performed By: #### 5 8410-2 ####[facility] LABORATORYCLIA [id number] [address] [place] Platelets (Bld) [#/Vol] 505 10*3/uL High 150-400 [facility] Comment on above: Order Comment: Speci men Type: BLOOD SPECIMENOrdering Facility: [facility] Address: [address] [place] [address] Performed By: #### 5 8410-2 ####[facility] LABORATORYCLIA [id number] [address] [place] RBC (Bld) [#/Vol] 2.76 10*6/uL Low 4.20-6.00 [facility] Comment on above: Order Comment: Speci men Type: BLOOD SPECIMENOrdering Facility: [facility] Address: [address] [place] [address] Performed By: #### 5 8410-2 ####[facility] LABORATORYCLIA [id number] [address] [place] WBC (Bld) [#/Vol] 14.89 10*3/uL High 3.70-11.00 [facility] Comment on above: Order Comment: Speci men Type: BLOOD SPECIMENOrdering Facility: [facility] Address: [address] [place] [address] Performed By: #### 5 8410-2 ####[facility] LABORATORYCLIA [id number] [address] CONFIRM BLOOD TYPEon 025 ABO B Normal [facility] Comment on above: Order Comment: Speci men Type: BLOOD SPECIMENOrdering Facility: [facility] Address: [address] [place] [address] Performed By: #### C ONABO ####[facility] BLOOD BANKCLIA [id number] [address] [place] Rh Nom (Bld) Positive [facility] Comment on above: Order Comment: Speci men Type: BLOOD SPECIMENOrdering Facility: [facility] Address: [address] [place] [address] Performed By: #### C ONABO ####[facility] BLOOD BANKCLIA [id number] [address] [place] CTA CHEST (NON GATED) W IVCO N PEon 12-09-2024 CTA CHEST (NON GATED) W IVCON PE Normal [facility] ECG COMPLETEon 12-09-2024 ECG COMPLETE Normal [facility] ED NOTEon 12-09-2024 ED NOTE Normal [facility] ED NOTE HNO ID: [id number] Author: MACHO PATTON RN Service: ? Author Type: Registered Nurse Type: ED Notes Filed: 12/09/2024 23:18 Note Text: Pt replaced on bipap by RT upon arrival to ED-3 [facility] ED NOTE HNO ID: [id number] Author: ASHVIN FELIX RN Service: Emergency Medicine Author Type: Registered Nurse Type: ED Notes Filed: 12/09/2024 23:15 Note Text: Pt moved to room 3, report given to TOMAS Isidro. [facility] ED NOTE HNO ID: [id number] Author: RADHA BEAL RN Service: ? Author Type: Registered Nurse Type: ED Notes Filed: 12/09/2024 23:14 Note Text: Bed: 03-ED Expected date: Expected time: Means of arrival: Comments: RM 444 Normal [facility] ED NOTE HNO ID: [id number] Author: ASHVIN FELIX, TOMAS Service: Emergency Medicine Author Type: Registered Nurse Type: ED Notes Filed: 12/09/2024 19:46 Note Text: RT notified that pt will need BiPAP. Normal [facility] ED NOTE HNO ID: [id number] Author: ASHVIN FELIX, TOMAS Service: Emergency Medicine Author Type: Registered Nurse Type: ED Notes Filed: 12/09/2024 19:45 Note Text: Pt with increased work of breathing. Pt placed on NRB at this time. Normal [facility] ED NOTE Normal [facility] ED NOTE HNO ID: [id number] Author: ASHVIN FELIX, RN Service: Emergency Medicine Author Type: Registered Nurse Type: ED Notes Filed: 12/09/2024 18:03 Note Text: Ok for pt to eat and drink per Dr. Contreras. Normal [facility] ED NOTE HNO ID: [id number] Author: ASHVIN FELIX, RN Service: Emergency Medicine Author Type: Registered Nurse Type: ED Notes Filed: 12/09/2024 15:11 Note Text: CT notified pt ready at this time. Normal [facility] ED NOTE HNO ID: [id number] Author: ASHVIN FELIX, TOMAS Service: Emergency Medicine Author Type: Registered Nurse Type: ED Notes Filed: 12/09/2024 14:10 Note Text: Pt placed on security monitor with blood pressure and continuous pulse ox. Normal [facility] ED NOTE Normal [facility] ED PROGRESS NOTE (PROVIDER)o n 12-09-2024 ED PROGRESS NOTE (PROVIDER) [facility] ED PROV NOTEon 12-09-2024 ED PROV NOTE Normal [facility] Gas and Carbon monoxide pane l (BldV)on 12-09-2024 Base excess Calc (BldV) [Moles/Vol] 2 mmol/L Normal 0-2 [facility] Comment on above: Order Comment: Speci men Type: VENOUS BLOOD SPECIMENOrdering Facility: [facility] Address: [address] [place] [address] Performed By: #### 2 4344-4 ####[facility] LABORATORYCLIA [id number] [place] [address] [place] Body temperature 98.6 [degF] Normal [facility] Comment on above: Order Comment: Speci men Type: VENOUS BLOOD SPECIMENOrdering Facility: [facility] Address: [address] [place] [address] Performed By: #### 2 4344-4 ####[facility] LABORATORYCLIA [id number] [address] Calcium.ionized (BldV) [Mass/Vol] 1.03 mmol/L Low 1.08-1.30 [facility] Comment on above: Order Comment: Speci men Type: VENOUS BLOOD SPECIMENOrdering Facility: [facility] Address: [address] [place] [address] Performed By: #### 2 4344-4 ####[facility] LABORATORYCLIA [id number] [address] Calcium.ionized adjusted to pH 7.4 (BldA) [Moles/Vol] 1.06 mmol/L Low 1.08-1.30 [facility] Comment on above: Order Comment: Speci men Type: VENOUS BLOOD SPECIMENOrdering Facility: [facility] Address: [address] [place] [address] Performed By: #### 2 4344-4 ####[facility] LABORATORYCLIA [id number] [address] [place] Carboxyhemoglobin (BldV) [Mass fraction] 2.9 % High 0.0-2.0 [facility] Comment on above: Order Comment: Speci men Type: VENOUS BLOOD SPECIMENOrdering Facility: [facility] Address: [address] [place] [address] Result Comment: Carb oxyhemoglobin Reference Range for Smokers: 2.0-8.0% Performed By: #### 2 4344-4 ####[facility] LABORATORYCLIA [id number] [address] STATES OF [facility] Chloride [Moles/Vol] 101 mmol/L Normal 97-105 [facility] Comment on above: Order Comment: Speci men Type: VENOUS BLOOD SPECIMENOrdering Facility: [facility] Address: [address] [place] [address] Performed By: #### 2 4344-4 ####[facility]ATORYCLIA [id number] [place] [address] [place] CO2 (BldV) [Partial pressure] 36 mm[Hg] Low 42-55 [facility] Comment on above: Order Comment: Speci men Type: VENOUS BLOOD SPECIMENOrdering Facility: [facility] Address: [address] [place] [address] Performed By: #### 2 4344-4 ####[facility] LABORATORYCLIA [id number] [address] [place] Glucose [Mass/Vol] 95 mg/dL Normal 60-105 [facility] Comment on above: Order Comment: Speci men Type: VENOUS BLOOD SPECIMENOrdering Facility: [facility] Address: [address] [place] [address] Performed By: #### 2 4344-4 ####[facility] LABORATORYCLIA [id number] [address] [place] HCO3 (Bld) [Moles/Vol] 25 mmol/L Normal 24-28 [facility] Comment on above: Order Comment: Speci men Type: VENOUS BLOOD SPECIMENOrdering Facility: [facility] Address: [address] [place] [address] Performed By: #### 2 4344-4 ####[facility]ATORYCLIA [id number] [address] [place] Hematocrit (Bld) [Volume fraction] 24.5 % Low 39.0-51.0 [facility] Comment on above: Order Comment: Speci men Type: VENOUS BLOOD SPECIMENOrdering Facility: [facility] Address: [address] [place] [address] Performed By: #### 2 4344-4 ####[facility] LABORATORYCLIA [id number] [address] [place] Hemoglobin (Bld) [Mass/Vol] 7.9 g/dL Low 13.0-17.0 [facility] Comment on above: Order Comment: Speci men Type: VENOUS BLOOD SPECIMENOrdering Facility: [facility] Address: [address] [place] [address] Performed By: #### 2 4344-4 ####[facility]ATORYCLIA [id number] [address] [place] Lactate [Moles/Vol] 1.1 mmol/L Normal 0.5-2.2 [facility] Comment on above: Order Comment: Speci men Type: VENOUS BLOOD SPECIMENOrdering Facility: [facility] Address: [address] [place] [address] Performed By: #### 2 4344-4 ####[facility] LABORATORYCLIA [id number] [address] [place] Methemoglobin (Bld) [Mass fraction] 0.8 % Normal 0.0-1.5 [facility] Comment on above: Order Comment: Speci men Type: VENOUS BLOOD SPECIMENOrdering Facility: [facility] Address: [address] [place] [address] Performed By: #### 2 4344-4 ####[facility] LABORATORYCLIA [id number] [address] [place] O2 THERAPY Positive Normal [facility] Comment on above: Order Comment: Speci men Type: VENOUS BLOOD SPECIMENOrdering Facility: [facility] Address: [address] [place] [address] Performed By: #### 2 4344-4 ####[facility] LABORATORYCLIA [id number] [address] [place] Oxygen (BldV) [Partial pressure] 171 mm[Hg] High 35-45 [facility] Comment on above: Order Comment: Speci men Type: VENOUS BLOOD SPECIMENOrdering Facility: [facility] Address: [address] [place] [address] Performed By: #### 2 4344-4 ####[facility]ATORYCLIA [id number] [address] [place] Oxygen saturation in Venous blood 99 % High 60-85 [facility] Comment on above: Order Comment: Speci men Type: VENOUS BLOOD SPECIMENOrdering Facility: [facility] Address: [address] [place] [address] Performed By: #### 2 4344-4 ####[facility] LABORATORYCLIA [id number] [address] Oxyhemoglobin (BldV) [Mass fraction] 96 % High 60-85 [facility] Comment on above: Order Comment: Speci men Type: VENOUS BLOOD SPECIMENOrdering Facility: [facility] Address: [address] [place] [address] Performed By: #### 2 4344-4 ####[facility] LABORATORYCLIA [id number] [address] [place] pH (BldV) 7.47 [pH] High 7.32-7.42 [facility] Comment on above: Order Comment: Speci men Type: VENOUS BLOOD SPECIMENOrdering Facility: [facility] Address: [address] [place] [address] Performed By: #### 2 4344-4 ####[facility] LABORATORYCLIA [id number] [address] [place] Potassium [Moles/Vol] 3.4 mmol/L Low 3.5-5.0 [facility] Comment on above: Order Comment: Speci men Type: VENOUS BLOOD SPECIMENOrdering Facility: [facility] Address: [address] [place] [address] Performed By: #### 2 4344-4 ####[facility] LABORATORYCLIA [id number] [place] [address] [place] Sodium [Moles/Vol] 135 mmol/L Low 136-144 [facility] Comment on above: Order Comment: Speci men Type: VENOUS BLOOD SPECIMENOrdering Facility: [facility] Address: [address] [place] [address] Performed By: #### 2 4344-4 ####[facility] LABORATORYCLIA [id number] [place] [address] [place] HIGH SENSITIVITY TROPONIN T (INITIAL)on 12-09-2024 Troponin T.cardiac High sensitivity method [Mass/Vol] 25 ng/L High <12 [facility] Comment on above: Order Comment: Speci men Type: BLOOD SPECIMENOrdering Facility: [facility] Address: [address] [place] [address] Performed By: #### L [id number] ####[facility] LABORATORYCLIA [id number] [address] HIGH SENSITIVITY TROPONIN T (SECOND)on 12-09-2024 Troponin T.cardiac High sensitivity method [Mass/Vol] 21 ng/L High <12 [facility] Comment on above: Order Comment: Speci men Type: BLOOD SPECIMENOrdering Facility: [facility] Address: [address] [place] [address] Performed By: #### L [id number] ####[facility] LABORATORYCLIA [id number] [address] [place] HIGH SENSITIVITY TROPONIN T (THIRD) 3 HRS AFTER INITIALon 12-09-2024 Troponin T.cardiac High sensitivity method [Mass/Vol] 22 ng/L High <12 [facility] Comment on above: Order Comment: Speci men Type: BLOOD SPECIMENOrdering Facility: [facility] Address: [address] [place] [address] Performed By: #### L [id number] ####[facility] LABORATORYCLIA [id number] [address] [place] HISTORY PHYSICALon HISTORY PHYSICAL Normal [facility] HISTORY PHYSICAL Normal [facility] Legionella Ag Ur Qlon 2024 Legionella sp Ag Ql (U) Negative Normal Negative A [facility] Comment on above: Order Comment: Speci men Type: URINE SPECIMENOrdering Facility: [facility] Address: [address] [place] [address] Result Comment: Pres umptive negative for L. [...] the test. Performed By: #### 3 2781-7 ####[facility] LABORATORYCLIA [id number] [address] [place] Magnesium SerPl-mCncon 12-09 Magnesium [Mass/Vol] 1.7 mg/dL Normal 1.7-2.3 [facility] Comment on above: Order Comment: Speci men Type: BLOOD SPECIMENOrdering Facility: [facility] Address: [address] [place] [address] Performed By: #### 1 9123-9, 59499-1 ####[facility] LABORATORYCLIA [id number] [address] [place] STREPTOCOCCUS PNEUMONIAE ANT IGEN URINEon 12-09-2024 STREPTOCOCCUS PNEUMONIAE ANTIGEN URINE Normal [facility] Comment on above: Performed By: #### S PNAG ####[facility] LABORATORYCLIA [id number] [address] [place] TOXICOLOGY SCREEN, ROUTINE U RINEon 12-09-2024 Amphetamines Confirm (U) [Mass/Vol] Positive Abnormal Negative [facility] Comment on above: Order Comment: Speci men Type: URINE SPECIMENOrdering Facility: [facility] Address: [address] [place] [address] Result Comment: Cuto ff threshold at 1000 ng/mL. Performed By: #### U TOX2 ####[facility] LABORATORYCLIA [id number] [place] [address] [place] BARBITURATES, URINE Negative Normal Negative [facility] Comment on above: Order Comment: Speci men Type: URINE SPECIMENOrdering Facility: [facility] Address: [address] [place] [address] Result Comment: Cuto ff threshold at 200 ng/mL. Performed By: #### U TOX2 ####[facility]ATORYCLIA [id number] [place] [address] [place] BENZODIAZEPINES, UR Negative Normal Negative [facility] Comment on above: Order Comment: Speci men Type: URINE SPECIMENOrdering Facility: [facility] Address: [address] [place] [address] Result Comment: Cuto ff threshold at 200 ng/mL. Performed By: #### U TOX2 ####[facility]ORATORYCLIA [id number] [address] Cannabinoids Screen Ql (U) Negative Normal Negative [facility] Comment on above: Order Comment: Speci men Type: URINE SPECIMENOrdering Facility: [facility] Address: [address] [place] [address] Result Comment: Cuto ff threshold at 50 ng/mL. Performed By: #### U TOX2 ####[facility]ATORYCLIA [id number] [address] Cocaine Ql (U) Negative Normal Negative [facility] Comment on above: Order Comment: Speci men Type: URINE SPECIMENOrdering Facility: [facility] Address: [address] [place] [address] Result Comment: Cuto ff threshold at 300 ng/mL. Performed By: #### U TOX2 ####[facility]ATORYCLIA [id number] [address] [place] Ethanol (U) [Mass/Vol] <11 Normal <11 [facility] Comment on above: Order Comment: Speci men Type: URINE SPECIMENOrdering Facility: [facility] Address: [address] [place] [address] Performed By: #### U TOX2 ####[facility]ORATORYCLIA [id number] [place] [address] [place] [facility] Opiates Screen Ql (U) Negative Normal Negative [facility] Comment on above: Order Comment: Speci men Type: URINE SPECIMENOrdering Facility: [facility] Address: [address] [place] [address] Result Comment: Cuto ff threshold at 300 ng/mL. Performed By: #### U TOX2 ####[facility]ORATORYCLIA [id number] [address] [place] oxyCODONE cutoff Screen (U) [Mass/Vol] Positive Abnormal Negative [facility] Comment on above: Order Comment: Speci men Type: URINE SPECIMENOrdering Facility: [facility] Address: [address] [place] [address] Result Comment: Cuto ff threshold at 100 ng/mL. Performed By: #### U TOX2 ####[facility] LABORATORYCLIA [id number] [address] Phencyclidine Ql (U) Negative Normal Negative [facility] Comment on above: Order Comment: Speci men Type: URINE SPECIMENOrdering Facility: [facility] Address: [address] [place] [address] Result Comment: Cuto ff threshold at 25 ng/mL. Performed By: #### U [id number] ####[facility] LABORATORYCLIA [id number] [address] OF [facility] TRANSFUSION REACTION ADDITIO NAL WORKUPon 12-09-2024 POST C3 DAGT Positive Normal [facility] Comment on above: Order Comment: Speci men Type: BLOOD SPECIMENOrdering Facility: [facility] Address: [address] [place] [address] Performed By: #### L [id number], ABOR, [id number], TRXN ####[facility] BLOOD BANKCLIA [id number] [address] POST IGG DAGT Negative Normal [facility] Comment on above: Order Comment: Speci men Type: BLOOD SPECIMENOrdering Facility: [facility] Address: [address] [place] [address] Performed By: #### L [id number], ABORH, [id number], TRXN ####[facility] BLOOD BANKCLIA [id number] [address] [place] PRE C3 DAGT Positive Normal [facility] Comment on above: Order Comment: Speci men Type: BLOOD SPECIMENOrdering Facility: [facility] Address: [address] [place] [address] Performed By: #### L [id number], ABORH, [id number], TRXN ####[facility] BLOOD BANKCLIA [id number] [address] OF [place] PRE IGG DAGT Negative Normal [facility] Comment on above: Order Comment: Speci men Type: BLOOD SPECIMENOrdering Facility: [facility] Address: [address] [place] [address] Performed By: #### L [id number], ABORH, [id number], TRXN ####[facility] BLOOD BANKCLIA [id number] [place] [address] [place] PRE POLY DAGT Positive Normal [facility] Comment on above: Order Comment: Speci men Type: BLOOD SPECIMENOrdering Facility: [facility] Address: [address] [place] [address] Performed By: #### L [id number], ABORH, [id number], TRXN ####[facility] BLOOD BANKCLIA [id number] [address] [place] TRANSFUSION REACTION EVALon 12-09-2024 OK TO TRANSFUSE Yes Normal [facility] Comment on above: Order Comment: Speci men Type: BLOOD SPECIMENOrdering Facility: [facility] Address: [address] [place] [address] Result Comment: [facility] Approval given by: Dr. Anderson (if medically necessary) Performed By: #### L [id number], ABORH, [id number], TRXN ####[facility] BLOOD BANKCLIA [id number] [address] [place] POST POLY DAGT Positive Normal [facility] Comment on above: Order Comment: Speci men Type: BLOOD SPECIMENOrdering Facility: [facility] Address: [address] [place] [address] Performed By: #### L [id number], ABORH, [id number], TRXN ####[facility] BLOOD BANKCLIA [id number] [address] [place] TYPE + SCREENon 12-09-2024 ABO B Normal [facility] Comment on above: Order Comment: Speci men Type: BLOOD SPECIMENOrdering Facility: [facility] Address: [address] [place] [address] Performed By: #### T SCR ####[facility] BLOOD BANKCLIA [id number] [place] [id number] [place] Rh Nom (Bld) Positive Normal [facility] Comment on above: Order Comment: Speci men Type: BLOOD SPECIMENOrdering Facility: [facility] Address: [facility] [address] Performed By: #### T SCR ####[facility] BLOOD BANKCLIA [id number] [place] [address] [place] TYPE AND SCREEN EXPIRATION 12/12/2024 23:59 Normal [facility] Comment on above: Order Comment: Speci men Type: BLOOD SPECIMENOrdering Facility: [facility] Address: [address] [place] [id number] Performed By: #### T SCR ####[facility] BLOOD BANKCLIA [id number] [place] [id number] [place] XR CHEST 1V FRONTALon 2024 XR CHEST 1V FRONTAL Normal [facility] Vital Signs Date Time Vital Sign Value Performing Clinician Stephenie dawn 01-04-2025 12:18-0400 Body temperature 98.1 [degF] [facility] 01-04-2025 12:18-0400 Diastolic blood pressure 66 mm[Hg] [facility] 01-04-2025 12:18-0400 Heart rate 108 /min [facility] 01-04-2025 12:18-0400 Respiratory rate 21 /min [facility] 01-04-2025 12:18-0400 SaO2% (BldA) [Mass fraction] 96 % [facility] 01-04-2025 12:18-0400 Systolic blood pressure 96 mm[Hg] [facility] 01-04-2025 06:30-0400 Inhaled oxygen flow rate 15 L/min [facility] 01-04-2025 06:27-0400 Body height 177.8 cm [facility] 01-04-2025 06: Body mass index (BMI) [Ratio] 23.4 kg/m2 [facility] 01-04-2025 06:27-0400 Body weight 74.1 kg [facility] Encounters Encounter Date Encounter Type Care Provider Facility Start: 03-01-2025 Emergency department patient visit [facility] Facility:[facility] Start: 01-04-2025 End: 01-04-2025 Emergency department patient visit [facility] -Emergency Department Work Phone: Start: 12-09-2024 End: 12-22-2024 Evaluation and management of inpatient AHMED YEN Facility[facility] Procedures Date Procedure Procedure Detail Performing Clinician Start: 01-04-2025 Urnls dip stick/tabl et reagent auto microscopy [facility] Start: 01-04-2025 Computed tomography of abdomen and pelvis with intravenous contrast [facility] Start: 01-04-2025 CT angiography of ch est with contrast [facility] Start: 01-04-2025 Estimated creatinine clearance [facility] Start: 01-04-2025 Flow cytometry cell surf marker techl only 1st [facility] Start: 12-20-2024 Antibody screen MILES CONROY Comment on above: Order Comment: Speci men Type: BLOOD SPECIMENOrdering Facility: [facility] Address: [address] [place] [address] Performed By: #### T SCR ####[facility] BLOOD BANKCLIA [id number] [address] Start: 12-13-2024 Antibody screen MILES H MARYCARMEN Comment on above: Order Comment: Speci men Type: BLOOD SPECIMENOrdering Facility: [facility] Address: [address] [place] [address] Performed By: #### T SCR ####[facility] BLOOD BANKCLIA [id number] [address] Start: 12-10-2024 Echocardiography MILES BARLOW Start: 12-09-2024 Antibody screen MILES H MARYCARMEN Comment on above: Order Comment: Speci men Type: BLOOD SPECIMENOrdering Facility: [facility] Address: [address] [place], [place] [id number] Performed By: #### T SCR ####[facility] BLOOD BANKCLIA [id number] [place] [address] [facility] Plan of Treatment Date Care Activity Detail Author Start: 01-04-2025 Bacteria identified in Blood by Culture Blood Culture [facility] Start: 01-04-2025 Bacteria identified in Urine by Culture Urine Culture [facility] Start: 01-04-2025 [facility] Start: 01-04-2025 End: 01-04-2025 [facility] Start: 01-04-2025 X-ray of chest, PA a nd lateral views Chest PA and Lateral [facility] Start: 01-04-2025 XR Chest PA and Lateral [facility] Troponin T.cardiac [Mass/volume] in Serum or Plasma by High sensitivity method [facility] Urine culture [facility] Payers Date Payer Category Payer Self-pay 2024 Unknown [id number] 1992 Medicare [id number] Unknown [id number] Unknown [id number] Social History Date Type Detail Facility Start: 01-04-2025 [facility] Start: 03-21-2016 Alcohol Alcohol [facility] Start: 03-21-2016 Drugs Drugs [facility] Start: 03-21-2016 Lives Lives [facility] Start: 03-21-2016 Tobacco Use Tobacco Use [facility] Start: 1955 Sex Assigned At Male [facility] Clinical Notes 12-09-2024 to 01-04-2025 Note Date & Type Note Facility 01-04-2025 Discharge summary [facility] 01-04-2025 Radiology Diagnostic study note [facility] Imaging Services [address] [place], [place] [address] CTA Chest W/WO Contrast MR#: [id number] Acct: [id number] Name: CARLOINA CHENEY Rep #: [id number] : 1955 M 69 From: Pet er Peer PCP: [facility] Status: REG ER Study:CTA Chest W/WO Contrast Date of Exam: 01/04/25 Exam# [id number] Ordering Dr: Clair Harmon DO PROCEDURE: CTA [...] Location: RAD-PEER- CC: Dr. Ned Harmon DO; [facility] ~ [employer]: Signed [facility] 01-04-2025 Radiology Diagnostic study note [facility] Imaging Services [address] [place] [address] Abdomen/Pelvis W IV Cont ONLY MR#: [id number] Acct: [id number] Name: CAROLINA CHENEY Rep #: [id number] : 1955 M 69 From: Enzo Bee MD PCP: [facility] Status: REG ER Study:Abdomen/Pelvis W IV Cont ONLY Date of E xam: 01/04/25 Exam# [id number] Ordering Dr: Clair Harmon DO PROCEDURE: ABDOMEN/PELVIS [...] 4. Other findings as noted. Reading Location: [id number] CC: Dr. Ned Harmon, DO; [facility] [employer]: Signed [facility] Work Phone: 12-22-2024 Note [facility] 12-22-2024 Note [facility] 12-22-2024 [facility] 12-22-2024 [facility] 12-21-2024 Note [facility] 12-21-2024 Note [facility] 12-20-2024 Note [facility] 12-19-2024 Note [facility] 12-19-2024 Note HNO ID: [id number] Author: EBEN NOLEN, TOMAS Service: Nursing Author Type: Registered Nurse Type: Nursing Progress Note Filed: 12/19/2024 05:52 Note Text: Pt refused blood work at this time. Said he'd do it later. [facility] 12-18-2024 Note [facility] 12-18-2024 Note [facility] 12-17-2024 Note [facility] 12-16-2024 Note [facility] 12-16-2024 Note HNO ID: [id number] Author: EBEN NOLEN, TOMAS Service: Nursing Author Type: Registered Nurse Type: Nursing Progress Note Filed: 12/16/2024 02:02 Note Text: Pt given a soapsuds enema; tolerated well; Pt had a mixed BM of liquid and solid [facility] 12-15-2024 Note [facility] 12-14-2024 Note [facility] 12-13-2024 Note HNO ID: [id number] Author: REN SCHULTZ, TOMAS Service: ? Author Type: Registered Nurse Type: Nursing Progress Note Filed: 12/14/2024 02:00 Note Text: Pt fired off sepsis BPA. Pager [phone] messaged. No new orders at this time [facility] 12-13-2024 Note [facility] 12-12-2024 Note [facility] 12-11-2024 Note [facility] 12-11-2024 Note [facility] 12-10-2024 Note [facility] 12-09-2024 Note SARS-COV-2 (AGENT OF COVID-19) RNA: Not detected INFLUENZA A RNA: Not detected INFLUENZA B RNA: Not detected RESPIRATORY SYNCYTIAL VIRUS (RSV) RNA: Not detected [facility] Comment on above: Performed By: #### 9 [id number] ####[facility] LABORATORYCLIA [id number] [place] [address] [facility] [place] Discharge summary Note Date/Time January 04, 2025 1:28pm [facility] Medical Records Department [address] [place], [place] [id number] Emergency Department Summary 01/04/25 MR#: [id number] Acct: [id number] Name: CAROLINA CHENEY Rep #:[id number] : 1955 69 From: Ned Harmon DO PCP: [facility] Status:REG ER Location: ED ADDENDUM by Dr. Ned Harmon DO on 01/04/25 at 1328 Patient EKG reviewed showed sinus tachycardia with rate of 107 bpm. 01/04/25 1328<Electronically signed by Ned Harmon DO> Cosigner Signature (if applicable): cc: [facility] ~* Signed HPI History of Present [...] he was at the hospital with the [facility] and there was admitted to [facility] About 2 weeks ago. He states that he will be sleeping and he will feel like he wakes up gasping for air having shortness of breath difficulty breathingtherefore he came here for further evaluation management. Patient denies any travel denies any history of blood clots. [facility] Medical History Lung cancer Home Medications ?Medication [...] follow commands and that he was at [facility] year is 2024 Skin: Warm. Dry, intact [...] noted. Patient's case was discussed with on-call architecture faculty member Dr. Winn prior to admitting him here and he recommends transfer to tertiary care center. Spoke with transfer time multiple times at [facility] Who she reached out to their pulmonology team and other providers and they state that they would not stent this as they feel that he is not amenable to this procedure. They reach back out with hospitalist Dr. Fuentes who I discussed case with and he is recommending attempting to transfer to the [facility] given that this is palliative care [...] his palliative care team, chemo/hematology oncology at [facility]. He was vies return with worsening symptoms or other concerns. He is agreeable to plan all question concerns answered he will leave AGAINST MEDICAL ADVICE. Patient did note that he was overall pleased with the care he just cannot wait any longer for another transport and will directly talk with his [place] doctors for potential direct admission Lab Data [...] Clarity Clear Urine pH 6.0 Ur Specific [place] 1.015 Urine Protein 30 H Urine Glucose [...] Color Urine Clarity Urine pH Ur Specific [place] Urine Protein Urine Glucose (UA) Urine Ketones [...] 4. Other findings as noted. Reading Location: [id number] Chest CTA 01/04/25 07:30 IMPRESSION: No pulmonary embolism. Complete atelectasis of the left upper lobe from bronchial plugging from mucous,lung cancer versus other etiology. Multi focal right lung pulmonary metastases Reading Location: [facility] Discharge Plan Triage Chief Complaint: Shortness of Breath ED Provider: Ned Harmon Dx/Rx/DC Orders Clinical Impression: Breath shortness, Lung cancer, History of metastatic neoplastic disease Prescriptions: No Action Unobtainable Primary Care Provider: [facility] [Primary Care Provider] - Activity Restrictions/Additional Instructions: Follow-up with the [facility] as well as your palliative care team. Return with worsening symptoms or any other concerns. Print Language: Italian Disposition Disposition: Against Medical Advice What to do if you have Problems For any increased pain, shortness of breath, bleeding, nausea or vomiting, chestpain, or any unexpected problems, contact your Primary Care Provider. Call [facility] ([phone]) or report to the closest Emergency Room. Call 911 if necessary. 01/04/25 1327 <Electronically signed by Ned Harmon DO> Cosigner Signature (if applicable): CC: [facility] ~ Signed [facility] Work Phone: Evaluation noteNo assessment information available [facility] Work Phone: Hospital Discharge instructionsAdditional Instructions Follow-up with the [facility] as well as your palliative care team. Return with worsening symptoms or any other concerns.[facility] Work Phone: Reason for referral (narrative)No reason for referral information availableWNationwide [facility]'s [facility] Work Phone: Summary Purpose Family History No Family History Records Found Relationship Condition Age at Onset Recorded Date/T kareem Unknown Family History?- Unknown March 022015 5:16pm Advance Directives No Advanced Directives Records Found Advance Directive Response Recorded Date/ Time Do you have a Healthcare Power of Program Developer? No January 04, 2025 6:31am Advance Directives No March 5:17pm Chief Complaint and Reason for Visit Chief Complaint Admit Date sob January 04, 2025 6:26a m Additional Source Comments (unrecognized sect ion and content) No Status Records FoundNo Status Records Found INFORMATION SOURCE (unrecogn ized section and content) DATE CREATED AUTHOR 01/04/2025 [facility] DATE CREATED AUTHOR AUTHOR'S DAJA ATCODY 03/01/2025 [facility] Care Teams (unrecognized sec tion and content) Team Status: Active Member Role/Relationship Status Dates [facility] Primary Care Provider Active Team Status: Inactive Member Role/Relationship Status Dates [facility] Primary Care Provider Active Start: January [...] BE BASED ON THE PRIMARY CLINICAL RECORDS. [facility] [employer] [facility]. provides no warranty or guarantee of the accuracy or completeness of information in this document.
--- NOTE | 2025-03-01 19:28 | ECHOCS_ITS ---
Reason For Study Reason For Study: Arrhythmia, Tachycardia, Fluid overload Procedure This was a 2D Doppler, Color Flow transthoracic echocardiogram. Contrast injection was performed. The study was technically difficult. The study was technically limited. Exam performed portable in patient room. Left Ventricle Normal LV size. Moderate global left ventricular systolic dysfunction. Stage 1 diastolic dysfunction. The left ventricular ejection fraction is 35 %. Right Ventricle Normal RV size. Normal systolic function. Atria The left and right atria are normal. Mitral Valve The mitral valve chordae are thickened and/or calcified. Mild diffuse mitral valve thickening. There is no mitral valve stenosis. Tricuspid Valve Normal tricuspid valve. Mild (1+) tricuspid valve insufficiency. Pulmonary artery systolic pressure is 28 mmHg. Aortic Valve Trisinus/trileaflet aortic valve. Pulmonic Valve The pulmonic valve is not well visualized. Great Vessels The aortic root is not well visualized. Pericardium/Pleural No pericardial effusion. Medication Diluted definity 2ml given slow IV push to enhance endocardial definition. MMode/2D Measurements & Calculations LVIDd: 3.9 cm IVSd: 1.1 cm LAV(MOD-sp2): 18.7 ml LVIDs: 3.3 cm LVPWd: 1.1 cm FS: 16.0 % Time Measurements MV dec time: 0.16 sec Doppler Measurements & Calculations MV E max nilo: 48.1 cm/sec Lat Peak E' Nilo: 6.8 cm/sec Med Peak E' Nilo: 7.5 cm/sec MV A max nilo: 61.0 cm/sec E/E' lat: 7.1 E/E' med: 6.4 MV E/A: 0.79 Ao V2 max: 70.8 cm/sec LV V1 max: 50.4 cm/sec MV dec slope: 308.4 cm/sec2 Ao max P.0 mmHg LV V1 max P.0 mmHg Ao V2 mean: 51.0 cm/sec Ao mean P.1 mmHg Ao V2 VTI: 9.6 cm TR max nilo: 221.9 cm/sec TR max P.1 mmHg ECHO/Echo Complete W/ Contrast Interpretation Summary Moderate global left ventricular systolic dysfunction. The left ventricular eje ction fraction is 35 %. Stage 1 diastolic dysfunction. Mild (1+) tricuspid valve insufficiency. The study was technically difficult. Contrast injection was performed. Ordering Physician: Kavita Myles Referring Physician: [facility] Performed By: Ankita Prather RDCS, RVT
[2025-03-01] MEDS: 0.9% Saline Lock 10 ML Syringe IV (20:27)
[2025-03-01] MEDS: Ampicillin/Sulbactam 3 GM in 0.9% Normal Saline (100mL MB+) 100 ML IV (20:27)
[2025-03-02] VITALS (13 sets, daily range): BP systolic 109–124; BP diastolic 76–98; PULSE 101–117; RESP 16–24; TEMP 36.2–36.8; O2SAT 92–98
[2025-03-02] MEDS: Ampicillin/Sulbactam 3 GM in 0.9% Normal Saline (100mL MB+) 100 ML IV ×4 (00:01→18:37)
[2025-03-02] MEDS: Ipratropium 0.5 MG/2.5 ML SOLUTION INHALATION ×5 (04:32→19:58)
[2025-03-02 05:45] LABS: Hematocrit 32.6 % (40-54); Hemoglobin 10.5 g/dL (13.0-16.5); Mean Corp Hgb Conc 32.2 g/dL (32-36); Mean Corpuscular Volume 84.7 fL (80-94); Mean Platelet Vol. 9.8 fl (6.2-12.0); POSITIVE COUNT YES; POSITIVE MORPHOLOGY YES; Platelet Count 496 K/mm3 (150-450); RBC Distribution Width CV 15.8 % (11.6-14.6); RBC Distribution Width SD 48.2 fl (35.1-43.9); Red Blood Count 3.85 M/mm3 (4.6-6.2); White Blood Count 13.5 K/mm3 (4.4-11.0)
[2025-03-02 05:54] LABS: Differential Indicated MANUAL DIFF
[2025-03-02 06:23] LABS: AST(SGOT) 40 U/L (<=37); Alanine Aminotransfer ALT/SGPT 18 U/L (<=46); Albumin, Serum 2.8 g/dL (3.4-4.8); Alkaline Phosphatase 109 U/L (40-129); Anion Gap 14 (5-15); BUN 16 mg/dL (4-19); BUN/Creat Ratio 20.6 RATIO (10-20); Calcium,Total 9.0 mg/dL (7.6-11.0); Carbon Dioxide 26.1 mmol/L (21.0-32.0); Chloride 93 mmol/L (98-108); Estimated Creatinine Clearance 78.64 ml/min (50-250); Globulin 3.4 g/dL (2.2-4.2); Glucose 147 mg/dL (70-99); Magnesium 1.7 mg/dL (1.5-2.2); Potassium 3.9 mmol/L (3.3-5.1)
[2025-03-02 06:52] LABS: Neutrophil-Segmented 90 % (47-70); Total Cells Counted 100 (MANUAL DIFF)
[2025-03-02 06:58] LABS: Anisocytosis 1+; Tear Drop Cell RARE
[2025-03-02 06:59] LABS: Schistocytes RARE
--- NOTE | 2025-03-02 08:26 | PN.HOSP_ITS ---
Subjective Subjective Requiring 2 L nasal cannula. Feels about the same as when he came in. Objective Data Objective Data Vital Signs: Vital Signs Temp Pulse Resp BP Pulse Ox O2 Del Method O2 Flow Rate 98.2 F 102 H 20 H 118/76 94 Nasal Cannula 2 03/02/25 06:05 03/02/25 06:44 03/02/25 06:44 03/02/25 06:05 03/02/25 06:44 03/02/25 06:44 03/02/25 06:44 Oxygen Flow Rate (L/min) 2 Oxygen Delivery Method Nasal Cannula Weight: 140 lb 10.479 oz Body Mass Index (BMI) 20.2 Intake & Output: Intake and Output for Last 24 Hours 03/01/25 03/02/25 03/03/25 03:59 03:59 03:59 Intake Total 0 / 0 960 / 960 480 / 480 Output Total 200 / 200 200 / 200 Balance 0 / 0 760 / 760 280 / 280 Lab / Micro Data 03/02/25 04:45 03/02/25 04:45 Labs: Laboratory Results - last 24 hr 03/01/25 23:49: POC Glucose 113 H 03/02/25 04:45: WBC 13.5 H, RBC 3.85 L, Hgb 10.5 L, Hct 32.6 L, MCV 84.7, MCH 27.3, MCHC 32.2, RDW Std Deviation 48.2 H, RDW Coeff of Hai 15.8 H, Plt Count 496 H, MPV 9.8, Neut % (Auto) Not Reportable, Absolute Neuts (auto) 12.2 H, A bsolute Lymphs (auto) 0.68 L, Total Counted 100, Neutrophils % (Manual) 90 H, L ymphocytes % (Manual) 5 L, Monocytes % (Manual) 3, Metamyelocytes % 1, M yelocytes % 1 H, Diff Path Review May foll, Anisocytosis 1+, Tear Drop Cells RARE, Schistocytes RARE, Sodium 133, Potassium 3.9, Chloride 93 L, Carbon Dioxide 26.1, Anion Gap 14, BUN 16, Creatinine 0.80, Estim Creat Clear Calc 78.64, Est GFR (MDRD) Non-Af 96, BUN/Creatinine Ratio 20.6 H, Glucose 147 H, Calcium 9.0, Magnesium 1.7, Total Bilirubin 0.41, AST 40 H, ALT 18, Alkaline Phosphatase 109, Total Protein 6.2, Albumin 2.8 L, Globulin 3.4, A lbumin/Globulin Ratio 0.8 L, TSH 1.400 Micro: Microbiology 03/01/25 21:02 Mucosa - Nasopharyngeal Respiratory Panel (PCR) - Preliminary 03/01/25 21:48 Urine, Clean Catch Streptococcus pneumoniae Antigen (M - Final 03/01/25 21:48 Urine, Clean Catch Legionella Antigen - Final Rhythm Strip Rhythm Strip: Sinus Tach Rate: 140 Ectopy: PVC(s) Physical Exam Narrative General: Alert, Oriented x3, Cooperative, No apparent distress HEENT: Atraumatic, PERRLA, EOMI, Normocephalic Oral: Moist Mucosa Neck: Supple, No JVD Lungs: Diminished, Normal air movement, No rhonchi, No wheeze, No rales, tachypneic, difficulty completing full sentences Cardiovascular: Tachycardic, Regular Rhythm, Normal S1, Normal S2, No murmurs Abdomen: Soft, Non Tender, Non-Distended, No Hepato-splenomegaly Extremities: Trace edema, Capillary Refill Less than 3 Seconds Skin: No rashes, No breakdown Musculoskeletal: No Tenderness to Palpation of Joints or Extremities Neurological: No focal neurological deficits, moves all extremities, sensation intact Psych/Mental Status: Normal Affect, Appropriate Assessment & Plan Assessment/Plan (1) Obstructive pneumonia: (2) Pleural effusion: (3) Metastatic cancer to lung: PLAN: Plan 1. Acute hypoxic respiratory insufficiency secondary to postobstructive pneumonia and fluid overload in the setting of stage IV metastatic lung cancer ? CTA demonstrated a mild increase in size the patient's left upper lobe and left hilar mass with left pleural effusion ? His oncologist told him that he may have exhausted all chemotherapeutic options ? Continue with Unasyn and azithromycin ? Cultures are pending ? PT/OT ? Incentive spirometry Mucinex ? 20-minute discussion on advance care planning, he is not ready for hospice as he wants to investigate possible other options for treatment and he wants to talk with his palliative care doctor first ? His proBNP was elevated therefore we will continue with Lasix ? Echo is pending ? Troponin elevations and significant 2. Metastatic lung cancer/hyponatremia ? She has failed 3 immunotherapies and is not receiving any treatments ? As stated above he wants to discuss his situation with his palliative care doctor and possibly investigate other routes of treatment ? Sodium is resolved at 133 DVT: SCDs Charges/Coding Multi Select Codes Visit Charges Visit Charges: 12777 Subs Hosp L2 Hospitalists' Procedures Procedures: 15639 Advncd Care Plan 30 Min
--- NOTE | 2025-03-02 13:56 | CON.PCM.PA_ITS ---
FORMERLY [facility] Medical History Lung cancer Home Medications ?Medication ?Instructions ?Recorded ?Last Taken ?Type dexamethasone 4 mg tablet 4 mg PO DAILY unknown Unknown History empagliflozin 25 mg tablet 12.5 mg PO DAILY unknown Unknown History (Jardiance) metoprolol succinate 25 mg 25 mg PO DAILY unknown 08/25 Unknown History tablet,extended release 24 hr (Toprol XL) ondansetron 8 mg disintegrating 8 mg PO Q8H nausea 08/25 Unknown History tablet oxycodone 5 mg capsule 5 mg PO Q4H pain 03/02/25 History Allergy/AdvReac Type Severity Reaction Status Date / Time No Known Allergies Allergy Verified 01/04/25 06:26 Social History Smoking Status: Former smoker Homelessness:: Sheltered Prior Cardiac Testing/Procedures Prior Cardiac Testing/Procedures: Echocardiogram (EF of 35%/Moderate global L ventricular systolic dysfunction) ROS ROS Narrative pt feels that his symptoms are being well controlled, at this time with Oxycodone 2.5mg PO [id number] Constitutional Constitutional: Reports as per HPI and weakness Eyes Eyes: Reports as per HPI ENT HEENT: Reports systems reviewed and no addt'l complaints, except as documented Cardiovascular Cardiovascular: Reports dyspnea at rest, dyspnea on exertion, fatigue and leg edema Respiratory/Chest Respiratory/Chest: Reports dyspnea on exertion, shortness of breath at rest and shortness of breath with exertion Gastrointestinal Gastrointestinal: Reports systems reviewed and no addt'l complaints, except as documented Genitourinary Genitourinary: Reports dribbling and urinary incontinence Integumentary Integumentary: Reports systems reviewed and no addt'l complaints, except as documented Neurologic Neurologic: Reports systems reviewed and no addt'l complaints, except as documented Psychiatric Psychiatric: Reports systems reviewed and no addt'l complaints, except as documented Hematologic/Lymphatic Hematologic/Lymphatic: Reports anemia Allergic/Immunologic Allergic/Immunologic: Reports systems reviewed and no addt'l complaints, except as documented Physical Exam Narrative shortness of breath Const oriented x3 General Appearance: cooperative HEENT normocephalic Mouth: dry mucous membranes Resp Effort and Inspection: tachypneic Auscultation: crackles bilateral and localized (left worse than right ) and diminished lung sounds Cardio Rate: tachycardic GI GI Narrative: hernia noted Extremity normal capillary refill Neuro Speech: speech normal Gait (Neuro): unable to assess gait Psych Psych Narrative: concerns for denial about the severity of his CA diagnosis. Some concern about his insight into his ability to call in famous doctors to heal his cancer. Charges/Coding Palliative Care Palliative Care: 31575 New Pt Consult 80+ min HPI Current admission Current Code Status: DNRCC-A Associated Diagnosis: Stage IV metastatic lung cancer Consult Data Date of Consult: 03/02/25 Location of consult: PCU Reason for referral: Goals of care Referral source: Dr. Loera Palliative care diagnosis (Summary list): Stage IV metastatic lung cancer, EF of 35% Palliative care services/treatment (Accepted, as consult): accepted Case discussed with referring provider: Luz Maria HPI Narrative HPI Narrative: Prior to meeting with the pt at bedside, I reviewed previous documentation, labs, radiological studies and well as diagnostic studies. I then met with the pt at bedside. I introduced myself to both Addy and his fiance , [place] and the concept of palliative care, which they voluntarily accepted our services. I ask Addy what he knew of his diagnosis, in which he confirmed that his oncologist stated that he has completed 3 rounds of immunotherapy with no improvement in his cancer. They are not convinced that he will receive any further treatment from his oncologist. Addy continually talks about various doctors that have had great success with treatments Dr Segal and out of [place]. I did ask if he has reached out to these doctors and been accepted as a patient? He stated that he has not but states that he is going to have them contact the doctors here and they can tell them what to do. I explained to him that it typically doesn't work that way. He then talked about going to a cancer treatment center in [place]. Currently, he is not well enough for travel and I did ask him how he plans to get there. He did not have a response, at this time. I am concerned that he may be experiencing denial in his grief process. He did endorse that he spends 90% of his time in bed, while at home. I then discussed his Echocardiogram and gave he and Valerie a overview of what it said with explanations. They both stated understanding. I explained his EF of 35% and elevated troponins x 3 of 36, 34 and 29. BNP of 2433, Along with his metastatic stage IV lung cancer without receiving any further treatments, would make him eligible for hospice. Both Addy and Valerie stated that they don't feel they are ready for that. I did offer supportive listening and allowed them to change the subject and followed their trajectory. We did discuss the fact that he is very weak and will, most likely, not be a candidate for continued therapies unless he can gain some strength. He is open to continued PT/OT services to get stronger. He is currently [facility] and states that he feels his symptoms are being controlled well, at this time. He is open to further conversations and Palliative care will continue to follow. All questions answered. Per hospitalist CAROLINA CHENEY, is a 69y/o male w/ hx of stage IV lung cancer not receiving any treatment because he was not responding to immunotherapy and symptomatic anemia who presented [facility] ED 03/01/2025 for shortness of breath especially in the mornings but over the past 3 days he has continued to worsen, also has mild wheezing and coughing. Also notes the past 2 weeks he has had increased swelling in his lower extremities. In the ED patient afebrile, patient with variable heart rate anywhere from 90s to 120s, blood pressure initially 106/92, respiratory rate 18 patient 98% on 3 L nasal cannula with a respiratory rate of 19. CBC with white blood cell count 14.4, hemoglobin 10.2 and platelet count 459. BMP with a sodium of 126, up from 120 in December, BUN of 11 and creatinine 0.65, Trop of 36 with 4-hour Trop of 29, and a proBNP of 2433. Lactic acid within normal limits. CTA obtained and showed mild increase in size of patient's left upper lobe/left hilar mass with increased cavitation consolidation as well as left pleural effusion, mild increase in size and number of pulmonary nodules, unchanged multifocal compression of the left pulmonary artery and branches. ED physician was concern for postobstructive pneumonia and fluid overload, patient received Rocephin and azithromycin as well as IV Lasix in the ED. [facility] with [facility] and was supposed to be transferred however no beds for prolonged amount of time and [facility] okay with [facility] to our institution given lack of bed availability so hospitalist contacted for admission. Patient evaluated bedside. Patient reports he is still having shortness of breath but feels better than when he first arrived especially since he has been pain off fluid. He notes that he has been having shortness of breath and cough for a year and was diagnosed with stage IV lung cancer, usually he short of breath when he wakes up in the morning but then will improve throughout the day and some days will not feel too bad at all over the past 3 days he has not been improving throughout the day, does cough but has difficulty producing any sputum, also notes leg swelling for the past 2 weeks. He reports before his lung cancer diagnosis he had never been hospitalized and did not take any medications, denies smoking, only thing he takes at home currently is oxycodone as needed since his diagnosis. Denies any breathing treatments at home and does not wear home oxygen. He denies any chest pain, no fever at home, occasionally gets some abdominal pain but nothing significant, had been having problems with constipation but that has resolved, denies nausea. Denies problems with urination Palliative Assessment Advanced Directive - Current Admission Advance Directive: Advance Directive ON ADMISSION - REFERENCE 3 Do you have a Healthcare No 03/01/25 19:19 Living Will? Do you have a Healthcare Power No 03/01/25 19:19 of Licensing Worker? Do You Want Additional Declined 03/01/25 19:19 Information on Advanced Directives or Healthcare Proxy/DPOA comments: no formal paperwork but verbally states that his ophelia, [place]. Psychosocial/Spiritual Information Living situation/Marital status: lives with his Ophelia Geographic location: [place] Supports: family Buddhist/Judi or spiritual preference: states no rastafari but endorses being very spiritual. Refused visit from mickey. 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 Dyspnea symptoms: Moderate (on O2@2liter. None at home ) Constipation symptoms: None Nausea symptoms: None Vomiting symptoms: None Depression symptoms: None Anorexia symptoms: Mild Cough symptoms: Mild Insomnia symptoms: Moderate Diarrhea symptoms: None Fatigue symptoms: Moderate Weakness symptoms: Severe Confusion symptoms: None Objective Data Objective Data Vital Signs: Vital Signs Temp Pulse Resp BP Pulse Ox O2 Del Method O2 Flow Rate 97.6 F L 110 H 22 H 109/94 H 98 Nasal Cannula 2 03/02/25 10:37 03/02/25 10:40 03/02/25 10:40 03/02/25 10:37 03/02/25 10:37 03/02/25 10:37 03/02/25 10:37 Oxygen Flow Rate (L/min) 2 Oxygen Delivery Method Nasal Cannula Weight: 140 lb 10.479 oz Body Mass Index (BMI) 20.2 Intake & Output: Intake and Output for Last 24 Hours 02/28/25 03/01/25 03/02/25 23:59 23:59 23:59 Intake Total 660 / 860 980 / 980 Output Total 400 / 400 Balance 660 / 660 580 / 580 Lab / Micro Data Attestation: I reviewed the patient's lab results. (chronic anemia 10.5/26.1, WBC's 13.5 from 14.4, BNP 2433) 03/02/25 04:45 03/02/25 04:45 Labs: Laboratory Results - last 24 hr 03/01/25 23:49: POC Glucose 113 H 03/02/25 04:45: WBC 13.5 H, RBC 3.85 L, Hgb 10.5 L, Hct 32.6 L, MCV 84.7, MCH 27.3, MCHC 32.2, RDW Std Deviation 48.2 H, RDW Coeff of Hai 15.8 H, Plt Count 496 H, MPV 9.8, Neut % (Auto) Not Reportable, Absolute Neuts (auto) 12.2 H, A bsolute Lymphs (auto) 0.68 L, Total Counted 100, Neutrophils % (Manual) 90 H, L ymphocytes % (Manual) 5 L, Monocytes % (Manual) 3, Metamyelocytes % 1, M yelocytes % 1 H, Diff Path Review May foll, Anisocytosis 1+, Tear Drop Cells RARE, Schistocytes RARE, Sodium 133, Potassium 3.9, Chloride 93 L, Carbon Dioxide 26.1, Anion Gap 14, BUN 16, Creatinine 0.80, Estim Creat Clear Calc 78.64, Est GFR (MDRD) Non-Af 96, BUN/Creatinine Ratio 20.6 H, Glucose 147 H, Calcium 9.0, Magnesium 1.7, Total Bilirubin 0.41, AST 40 H, ALT 18, Alkaline Phosphatase 109, Total Protein 6.2, Albumin 2.8 L, Globulin 3.4, A lbumin/Globulin Ratio 0.8 L, TSH 1.400 Micro: Microbiology 03/01/25 21:02 Mucosa - Nasopharyngeal Respiratory Panel (PCR) - Final 03/01/25 21:48 Urine, Clean Catch Streptococcus pneumoniae Antigen (M - Final 03/01/25 21:48 Urine, Clean Catch Legionella Antigen - Final Radiography Diagnostic Testing: Radiology Impression Echocardiogram 03/01/25 19:28 Interpretation Summary Moderate global left ventricular systolic dysfunction. The left ventricular ejection fraction is 35 %. Stage 1 diastolic dysfunction. Mild (1+) tricuspid valve insufficiency. The study was technically difficult. Contrast injection was performed. Ordering Physician: Kavita Myles Referring Physician: [facility] Performed By: Ankita Prather, JUAN DIEGO, RVT Rhythm Strip Rhythm Strip: Sinus Tach Rate: 140 Ectopy: PVC(s) and - (short run of SVT) Social Homelessness:: Sheltered Impressions & Recommendations Patient & Family Issues discussed with the patient and family: goals of care going forward Patient goal: pt wants total healing of his stage IV lung CA Family goal: family is same as pt Ethical & Legal Ethical and legal: needs formal DPOA for medical decisions Impressions Impressions: Ongoing goals of care conversations needed with the pt. Recommentation Palliative recommendations: although pt would qualify for hospice he is currently electing continued medical management Encouter Achieved as a result of this Palliative Care Encounter: [[id number], [id number] ] minutes were spent in total for this visit which consisted, primarily of counseling and education dealing with the complex and emotionally intense issues of symptom management and palliative care in the setting of serious and potentially life-threatening illness. Review of documentation, labs and radiological studies. ?Patient/family had the opportunity to ask questions Plan (1) Acute hypoxic respiratory failure: PLAN: medical managmeent per primary team recommend continued use of Oxycodone for pain and dyspnea (2) Pleural effusion: PLAN: medical management per primary team (3) Metastatic cancer to lung: PLAN: medical management per primary team (4) Obstructive pneumonia: PLAN: medical managment per primary team (5) Palliative care encounter: PLAN: -recommend continued goals of care conversations -support for pt and family as they continue aggressive medical management PLAN: Plan as above
--- NOTE | 2025-03-02 13:59 | CASEMGMT ---
Social Work SW met w/pt, reviewed prior level of function and anticipated d/c plan. SW and pt also discussed his diagnosis, and how he is feeling in regard to this. PCP: [facility] to the [facility] Specialists: All pt's specialists are at the NH, including his clock assembler, oncologist and palliative doctor. Pt sees Dr. Mccurdy for palliative care Insurance: [facility] benefits, Medicare Prescription Coverage: [facility], does not have insurance to cover otherwise LW/POA: Pt states has POA, Deyanira Mcallister is her POA(sig other) and Twan Mcmillan is the alternate. They are not on file, SW asked him to have Deyanira bring in the documents if she has them. LNOK: Pt has several siblings, had 7 total, two have passed. They are all half siblings. Pt states he is the only son of his mother and father. The rest have the same mother. He states when they were younger his mother was having a tough time and he cared for them. Living arrangements/Prior level of function: Pt lives w/Deyanira in a 3 bedroom apt on the second floor, a flight to the door. Steps have been difficult for pt. Pt is normally independent but has needed more assist, especially since his diagnosis in July. Pt states Deyanira helps with all ADLS. He can get to the bathroom sometimes on his own. Pt does still drive. Deyanira does the cooking and cleaning, and helps w/ADLS as needed. HHC/SNF: No history of either DME: Pt has an old w/c, no O2, no walker, cane or raised toilet seat. MH: Pt states no diagnosis of depression, no anxiety until this started. Pt is not suicidal, states would never do anything to harm himself. Pt denies any history of suicidality. Pt did express difficulty with accepting help from others. He states he is very empathetic, and is used to helping others. He states he does not like to ask others for help. Support given. SW asked if he is seeing anyone for MH support. Pt states he can see people in the palliative dept at the NH, and would like to follow up there. Alcohol/Substance Abuse: Pt states does not use any substances other than alcohol. Pt does not think his alcohol use is an issue, declines any resources for this. Plan: TBD. [facility], again for [facility] of care. SW explained will call to see if he can be transferred. SW also spoke w/pt about hospice, pt is considering this, but states wants to speak w/Deyanira about it. SW spoke w/pt at length about his health issues, his family. SW offered support to pt throughout the conversation. [facility], message left on the transfer line. Referral made for palliative care. SW will continue to follow for support to pt, will make any referrals as needed. BETI Nuñez
[2025-03-02] MEDS: Azithromycin 500 MG in 0.9% Normal Saline (250mL Bag) 250 ML 255 MG IV (20:19)
[2025-03-03] VITALS (10 sets, daily range): BP systolic 98–138; BP diastolic 67–113; PULSE 105–114; RESP 16–22; TEMP 36.4–36.8; O2SAT 92–99
[2025-03-03] MEDS: Ampicillin/Sulbactam 3 GM in 0.9% Normal Saline (100mL MB+) 100 ML IV ×4 (00:31→23:36)
[2025-03-03] MEDS: Metoprolol(XL)Succ 25 MG Tablet PO (00:34)
[2025-03-03 06:05] LABS: Hematocrit 30.3 % (40-54); Hemoglobin 9.8 g/dL (13.0-16.5); Mean Corp Hgb Conc 32.3 g/dL (32-36); Mean Corpuscular Volume 84.9 fL (80-94); Mean Platelet Vol. 9.8 fl (6.2-12.0); POSITIVE COUNT YES; POSITIVE MORPHOLOGY YES; Platelet Count 491 K/mm3 (150-450); RBC Distribution Width CV 15.8 % (11.6-14.6); RBC Distribution Width SD 48.1 fl (35.1-43.9); Red Blood Count 3.57 M/mm3 (4.6-6.2); White Blood Count 11.4 K/mm3 (4.4-11.0)
[2025-03-03 06:12] LABS: Differential Indicated MANUAL DIFF
[2025-03-03 06:31] LABS: Anion Gap 12 (5-15); BUN 20 mg/dL (4-19); BUN/Creat Ratio 27.1 RATIO (10-20); Calcium,Total 9.2 mg/dL (7.6-11.0); Carbon Dioxide 26.5 mmol/L (21.0-32.0); Chloride 93 mmol/L (98-108); Estimated Creatinine Clearance 78.64 ml/min (50-250); Glucose 99 mg/dL (70-99); Potassium 3.9 mmol/L (3.3-5.1)
[2025-03-03] MEDS: Ipratropium 0.5 MG/2.5 ML SOLUTION INHALATION ×2 (07:27→19:05)
--- NOTE | 2025-03-03 07:44 | PN.HOSP_ITS ---
Reason for Visit Chief Complaint: Shortness of breath Subjective Subjective Patient is a 69-year-old gentleman with history of stage IV metastatic lung CA who presented with shortness of breath Objective Data Objective Data Vital Signs: Vital Signs Temp Pulse Resp BP Pulse Ox O2 Del Method O2 Flow Rate 97.5 F L 109 H 20 H 138/84 H 94 Nasal Cannula 3 03/03/25 02:16 03/03/25 07:28 03/03/25 07:28 03/03/25 02:16 03/03/25 07:28 03/03/25 07:28 03/03/25 07:28 Oxygen Flow Rate (L/min) 3 Oxygen Delivery Method Nasal Cannula Weight: 63.8 kg Body Mass Index (BMI) 20.2 Intake & Output: Intake and Output for Last 24 Hours 03/01/25 03/02/25 03/03/25 23:59 23:59 23:59 Intake Total 660 / 860 1335 / 1335 220 / 220 Output Total 2650 / 2650 Balance 660 / 660 -1315 / -1315 220 / 220 Medical Nutrition Assessment Dietitian: Malnutrition Criteria Met Start: 03/02/25 08:20 Freq: Status: Active Protocol: Document 03/02/25 16:19 RMA (Rec: 03/02/25 16:19 RMA [id number]) Nutrition Malnutrition Evidence of Yes Malnutrition Exists Malnutrition (severe Chronic ): Evidenced By Suboptimal Energy Intake (Severe),Weight Loss (Severe), Physical Changes (Severe) Clinical Problem Chronic Disease or Condition Related Malnutrition Etiology Severe protein-calorie malnutrition in the context of chronic disease related to inadequate energy/oral intake and increased energy expenditure Signs/Symptoms as evidenced by ~15% unintentional body weight loss x 2 months; PO meeting less than 50% estimated nutrition needs x past 1 month; BMI 20.2; muscle wasting/fat depletion in the clavicle, face, arms and legs Status Active Problem Recommendation Dietitian Will liberalize diet to Regular. Recommendations/ Will add magic cup with lunch. Changes Will add 240mL ensure plus HP w/ breakfast and dinner tray. Additional ONS as needed. Lab / Micro Data 03/03/25 04:56 03/03/25 04:56 Labs: Laboratory Results - last 24 hr 03/03/25 04:56: WBC 11.4 H, RBC 3.57 L, Hgb 9.8 L, Hct 30.3 L, MCV 84.9, MCH 27.5, MCHC 32.3, RDW Std Deviation 48.1 H, RDW Coeff of Hai 15.8 H, Plt Count 491 H, MPV 9.8, Neut % (Auto) Not Reportable, Sodium 131 L, Potassium 3.9, C hloride 93 L, Carbon Dioxide 26.5, Anion Gap 12, BUN 20 H, Creatinine 0.73, Estim Creat Clear Calc 78.64, Est GFR (MDRD) Non-Af 98, BUN/Creatinine Ratio 27.1 H, Glucose 99, Calcium 9.2, Phosphorus 3.1 Micro: Microbiology 03/01/25 21:02 Mucosa - Nasopharyngeal Respiratory Panel (PCR) - Final 03/01/25 21:48 Urine, Clean Catch Streptococcus pneumoniae Antigen (M - Final 03/01/25 21:48 Urine, Clean Catch Legionella Antigen - Final Radiography Diagnostic Testing: Radiology Impression Echocardiogram 03/01/25 19:28 Interpretation Summary Moderate global left ventricular systolic dysfunction. The left ventricular ejection fraction is 35 %. Stage 1 diastolic dysfunction. Mild (1+) tricuspid valve insufficiency. The study was technically difficult. Contrast injection was performed. Ordering Physician: Kavita Myles Referring Physician: [facility] Performed By: Ankita Prather, JUAN DIEGO, RVT Rhythm Strip Rhythm Strip: Sinus Tach Rate: 140 Ectopy: PVC(s) and - (short run of SVT) Social Homelessness:: Sheltered Physical Exam Narrative GENERAL: cooperative but frail looking HEENT: Atraumatic; normocephalic EYES; Anicteric, Normal Conjunctiva NECK; supple, normal thyroid, RESPIRATORY: Diminished to auscultation CARDIOVASCULAR: Regular S1 S2, GI: soft, normoactive bowel sounds, : No Renal angle tenderness; EXTREMITIES: No edema, no clubbing, MUSCULOSKELETAL: no muscle wasting NEURO: Awake; no lateralizing signs. SKIN: No Rash PSYCH; Flat affect Assessment & Plan Assessment/Plan (1) Obstructive pneumonia: (2) Pleural effusion: (3) Metastatic cancer to lung: PLAN: Plan Patient is a 69-year-old gentleman with history of stage IV metastatic lung CA who presented with shortness of breath 1. Acute hypoxia ? CT demonstrated mild increase in the size of the left upper lobe/left hilar mass. Increased left pleural effusion. Increased left basilar atelectasis/consolidation. Increased cavitation in the left lower lobe. Unchanged mediastinal and hilar lymphadenopathy. Mild increase in the size and number of multiple pulmonary nodules with the largest measuring 16 mm. Please on supplemental oxygen with treatment of the underlying clinical etiology 2. Postobstructive pneumonia ?Patient managed with Unasyn. 3. Acute congestive heart failure with decreased ejection fraction ? 2D echo obtained demonstrated moderate global left ventricular systolic dysfunction with EF of 35%. Patient was placed on diuretic therapy ? 4. Metastatic lung CA ? Patient has apparently failed immunotherapy. Care is at the [facility] patient is requesting to be transferred to the [place] did explain to patient the best option would be for patient to be discharged after being assessed for home oxygen and then he can follow-up 5. 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 Severe protein-calorie malnutrition in the context of chronic disease related to inadequate energy/oral ntake and increased energy expenditure ? Patient was seen in consultation by dietary recommendations reviewed 7. DVT prophylaxis ? Patient started on Lovenox CODE STATUS DNR CCA no intubation ? Consult was also placed to the palliative care team to discuss goals of care next Charges/Coding Visit Charges Inpatient E&M: 21669 Subs Hosp L2
[2025-03-03] MEDS: 0.9% Saline Lock 10 ML Syringe IV ×2 (10:05→20:01)
--- NOTE | 2025-03-03 10:10 | PCM.PN.PAL ---
Subjective Subjective 03/03/25: Creatinine is daily at bedside I did review documentation and labs from overnight. I did note that he has had an improvement in his WBCs from 13.5-11.4. Slight decrease in his hemoglobin hematocrit from 10.5-9.8 today and 32.6 yesterday to 30.3 today. Platelets continue to be elevated at 491. He is slightly hyponatremic with a sodium of 131. BUN is slightly elevated at 20 from 16 yesterday. Patient continues to receive Lasix. I then met with Emeterio finney. He was sitting up in his bed stabilizing his trunk well, away from the back of the bed. Family initially wanted to speak about alternative healing methods for his cancer. I do support his utilization of Eastern and Ayurvedic medicine to assist with his healing but I also discussed comfort measures while not receiving traditional Western medicine such as chemotherapy or radiation. I did discuss the possibility of hospice services for comfort in addition to his nontraditional healing practices. He did state that he will think about it as he thought it may be a good adjunct if he is unable to receive any further treatment from a Western medicine standpoint. He did state that he would like to receive all of his care from [facility] as he is embedded with them. He is hopeful that he will be able to find a provider that is willing to treat his cancer. We then discussed what the typical criteria is for continued Western medicine treatment in which Addy states understanding. I then discussed that yesterday he refused PT and OT and did not want to get the bed. I explained to him that he needs to be able to get out of the bed and utilize a walker if he wants any chance in receiving continue Western medicine. Addy did state understanding and states that he will work with PT and OT and is mad at himself or refusing yesterday. He expressed frustration over the management of his pain medications. He states that at home he takes oxycodone 2.5 mg or 5 mg up to 10 mg every 4 hours depending on symptoms and pain. I did state understanding and explained that that is a typical palliative order to utilize the lowest dose possible in managing symptoms. I do recommend oxycodone 2.5 mg p.o. every 4 hours as needed for mild pain 1-3 or mild shortness of breath, oxycodone 5 mg p.o. every 4 hours as needed for moderate pain 4-6 and/or moderate shortness of breath and oxycodone 10 mg p.o. every 4 hours as needed for severe pain 7-10 and/or severe shortness of breath. An attempt to meet Addy where he is at, will continue to discuss adjunct treatments and what that would look like for him going forward from a nutritional standpoint as well as his mind and spirit. Addy plans to more aggressively implement meditation, guided imagery and relaxation and exercises. He does note that his symptoms get worse when he becomes anxious or sad having a bad day. States good understanding of how his mind has been affecting symptoms. I did recommend that he finds a good balance between his Eastern philosophy and Western medicine which he states agreement. He does state that he is not against initiating hospice for comfort and that he would like to receive those services to through [facility] and would like to speak to them first. He does have a palliative care provider at [facility]. I did encourage him to reach out to them sooner rather than later to get assistance with managing his symptoms. I then spoke with Dr. Loya, to update him on Addy's desire to go to the [facility]. He recommended the possibility of discharge to home and then have the patient reach out to his primary care providers for next steps at the [facility]. Lastly, I did speak to Addy about POA and the importance of establishing a POA going forward. Particularly, because he would like his Deyanira vick to be his decision-maker. He plans to initiate them as soon as he is discharged. Addy did take lots of notes during our conversation and asked very good questions, which were answered. Palliative care will continue to follow for support as the patient's clinical picture evolves. 03/02/25Prior to meeting with the pt at bedside, I reviewed previous documentation, labs, radiological studies and well as diagnostic studies. I then met with the pt at bedside. I introduced myself to both Addy and his fiance Deyanira and the concept of palliative care, which they voluntarily accepted our services. I ask Addy what he knew of his diagnosis, in which he confirmed that his oncologist stated that he has completed 3 rounds of immunotherapy with no improvement in his cancer. They are not convinced that he will receive any further treatment from his oncologist. Addy continually talks about various doctors that have had great success with treatments Dr Segal and out of [place]. I did ask if he has reached out to these doctors and been accepted as a patient? He stated that he has not but states that he is going to have them contact the doctors here and they can tell them what to do. I explained to him that it typically doesn't work that way. He then talked about going to a cancer treatment center in [place]. Currently, he is not well enough for travel and I did ask him how he plans to get there. He did not have a response, at this time. I am concerned that he may be experiencing denial in his grief process. He did endorse that he spends 90% of his time in bed, while at home. I then discussed his Echocardiogram and gave he and Deyanira a overview of what it said with explanations. They both stated understanding. I explained his EF of 35% and elevated troponins x 3 of 36, 34 and 29. BNP of 2433, Along with his metastatic stage IV lung cancer without receiving any further treatments, would make him eligible for hospice. Both Addy and Deyanira stated that they don't feel they are ready for that. I did offer supportive listening and allowed them to change the subject and followed their trajectory. We did discuss the fact that he is very weak and will, most likely, not be a candidate for continued therapies unless he can gain some strength. He is open to continued PT/OT services to get stronger. He is currently waiting for a bed at [facility] and states that he feels his symptoms are being controlled well, at this time. He is open to further conversations and Palliative care will continue to follow. All questions answered. Per hospitalist EMETERIO CHENEY, is a 69y/o male w/ hx of stage IV lung cancer not receiving any treatment because he was not responding to immunotherapy and symptomatic anemia who presented [facility] ED 03/01/2025 for shortness of breath especially in the mornings but over the past 3 days he has continued to worsen, also has mild wheezing and coughing. Also notes the past 2 weeks he has had increased swelling in his lower extremities. In the ED patient afebrile, patient with variable heart rate anywhere from 90s to 120s, blood pressure initially 106/92, respiratory rate 18 patient 98% on 3 L nasal cannula with a respiratory rate of 19. CBC with white blood cell count 14.4, hemoglobin 10.2 and platelet count 459. BMP with a sodium of 126, up from 120 in December, BUN of 11 and creatinine 0.65, Trop of 36 with 4-hour Trop of 29, and a proBNP of 2433. Lactic acid within normal limits. CTA obtained and showed mild increase in size of patient's left upper lobe/left hilar mass with increased cavitation consolidation as well as left pleural effusion, mild increase in size and number of pulmonary nodules, unchanged multifocal compression of the left pulmonary artery and branches. ED physician was concern for postobstructive pneumonia and fluid overload, patient received Rocephin and azithromycin as well as IV Lasix in the ED. [facility] and was supposed to be transferred however no beds for prolonged amount of time and [facility] okay with [facility] to our institution given lack of bed availability so hospitalist contacted for admission. Patient evaluated bedside. Patient reports he is still having shortness of breath but feels better than when he first arrived especially since he has been pain off fluid. He notes that he has been having shortness of breath and cough for a year and was diagnosed with stage IV lung cancer, usually he short of breath when he wakes up in the morning but then will improve throughout the day and some days will not feel too bad at all over the past 3 days he has not been improving throughout the day, does cough but has difficulty producing any sputum, also notes leg swelling for the past 2 weeks. He reports before his lung cancer diagnosis he had never been hospitalized and did not take any medications, denies smoking, only thing he takes at home currently is oxycodone as needed since his diagnosis. Denies any breathing treatments at home and does not wear home oxygen. He denies any chest pain, no fever at home, occasionally gets some abdominal pain but nothing significant, had been having problems with constipation but that has resolved, denies nausea. Denies problems with urination Objective Data Objective Data Vital Signs: Vital Signs Temp Pulse Resp BP Pulse Ox O2 Del Method O2 Flow Rate 98.2 F 106 H 18 114/87 H 99 Nasal Cannula 3 03/03/25 09:48 03/03/25 09:48 03/03/25 09:48 03/03/25 09:48 03/03/25 09:48 03/03/25 09:55 03/03/25 09:55 Oxygen Flow Rate (L/min) 3 Oxygen Delivery Method Nasal Cannula Weight: 140 lb 10.479 oz Body Mass Index (BMI) 20.2 Intake & Output: Intake and Output for Last 24 Hours 03/01/25 03/02/25 03/03/25 23:59 23:59 23:59 Intake Total 660 / 860 1335 / 1335 220 / 220 Output Total 2650 / 2650 Balance 660 / 660 -1315 / -1315 220 / 220 Medical Nutrition Assessment Dietitian: Malnutrition Criteria Met Start: 03/02/25 08:20 Freq: Status: Active Protocol: Document 03/02/25 16:19 RMA (Rec: 03/02/25 16:19 RMA [id number]) Nutrition Malnutrition Evidence of Yes Malnutrition Exists Malnutrition (severe Chronic ): Evidenced By Suboptimal Energy Intake (Severe),Weight Loss (Severe), Physical Changes (Severe) Clinical Problem Chronic Disease or Condition Related Malnutrition Etiology Severe protein-calorie malnutrition in the context of chronic disease related to inadequate energy/oral intake and increased energy expenditure Signs/Symptoms as evidenced by ~15% unintentional body weight loss x 2 months; PO meeting less than 50% estimated nutrition needs x past 1 month; BMI 20.2; muscle wasting/fat depletion in the clavicle, face, arms and legs Status Active Problem Recommendation Dietitian Will liberalize diet to Regular. Recommendations/ Will add magic cup with lunch. Changes Will add 240mL ensure plus HP w/ breakfast and dinner tray. Additional ONS as needed. Lab / Micro Data Attestation: I reviewed the patient's lab results. Lab results narrative: Improvement of WBCs to 11.4, slightly worsening hemoglobin of 9.8 from 10.5. Platelets continue to be elevated 491. Slight hyponatremia at 131, slightly elevated BUN at 20 from 16 yesterday. Creatinine remains within normal limits at 0.73 and GFR is 98.Improvement of WBCs to 11.4, slightly worsening hemoglobin of 9.8 from 10.5. Platelets continue to be elevated 491. Slight hyponatremia at 131, slightly elevated BUN at 20 from 16 yesterday. Creatinine remains within normal limits at 0.73 and GFR is 98. 03/03/25 04:56 03/03/25 04:56 Labs: Laboratory Results - last 24 hr 03/03/25 04:56: WBC 11.4 H, RBC 3.57 L, Hgb 9.8 L, Hct 30.3 L, MCV 84.9, MCH 27.5, MCHC 32.3, RDW Std Deviation 48.1 H, RDW Coeff of Hai 15.8 H, Plt Count 491 H, MPV 9.8, Neut % (Auto) Not Reportable, Sodium 131 L, Potassium 3.9, Chloride 93 L, Carbon Dioxide 26.5, Anion Gap 12, BUN 20 H, Creatinine 0.73, Estim Creat Clear Calc 78.64, Est GFR (MDRD) Non-Af 98, BUN/Creatinine Ratio 27.1 H, Glucose 99, Calcium 9.2, Phosphorus 3.1 Micro: Microbiology 03/01/25 05:57 Blood Culture (Wb) - Right Wrist Blood Culture - Preliminary No growth in 48 hours. 03/01/25 05:40 Blood Culture (Wb) - Right Wrist Blood Culture - Preliminary No growth in 48 hours. 03/01/25 21:02 Mucosa - Nasopharyngeal Respiratory Panel (PCR) - Final 03/01/25 21:48 Urine, Clean Catch Streptococcus pneumoniae Antigen (M - Final 03/01/25 21:48 Urine, Clean Catch Legionella Antigen - Final Radiography Diagnostic Testing: Radiology Impression Echocardiogram 03/01/25 19:28 Interpretation Summary Moderate global left ventricular systolic dysfunction. The left ventricular ejection fraction is 35 %. Stage 1 diastolic dysfunction. Mild (1+) tricuspid valve insufficiency. The study was technically difficult. Contrast injection was performed. Ordering Physician: Kavita Myles Referring Physician: [facility] Performed By: Ankita Prather RDCS, RVT Rhythm Strip Rhythm Strip: Sinus Tach Rate: 140 Ectopy: PVC(s) and - (short run of SVT) Social Homelessness:: Sheltered Physical Exam Const oriented x3 General Appearance: cooperative and comfortable Orientation / Consciousness: awake, oriented to person, oriented to place and oriented to time Exam Limitations: no limitations Nutritional Appearance: thin HEENT normocephalic Eyes Pupil: PERRL Neck full ROM Resp Resp Narrative: During the initial part of our interview and conversation, patient was speaking in 2-3 word sentences. By the end of our conversation the patient was speaking in full sentences without shortness of breath. Effort and Inspection: symmetric chest movement Auscultation: diminished lung sounds Cardio Rate: tachycardic Heart Sounds: murmur Peripheral Pulses: pulses 2+ throughout GI GI Narrative: Patient initially had some upper abdominal discomfort which did dissipate during our conversation. Auscultation: normoactive bowel sounds Rectal Exam: deferred Bladder / Kidney Exam: other External collection device in place Back/Spine no CVA tenderness Extremity Peripheral Pulses: Yes pulses 2+ throughout Skin no rashes or lesions noted Neuro oriented x3 and CN's II-XII intact bilaterally Speech: speech normal Gait (Neuro): unable to assess gait Psych mental status grossly normal Attitude: calm and engaged Activity / Motor Behavior: appropriate eye contact Speech: normal speech Thought Process: normal thought process Thought Content: normal thought content Attention / Concentration: attention grossly intact Memory / Cognition: memory grossly intact Insight: other I feel that the patient's insight has improved today. He appears to be more realistic in his expectations Charges/Coding Palliative Care Palliative Care: 87122 Follow up 50+ min Consulation Summary Current admission Current Code Status: DNRCC-A Associated Diagnosis: Stage IV lung CA, debility, HFrEF Consult Data Date of Consult: 03/02/25 Location of consult: PCU Reason for referral: Goals of care Referral source: Dr. Loera Palliative care diagnosis (Summary list): Stage IV metastatic lung cancer, EF of 35% Palliative care services/treatment (Accepted, as consult): accepted Case discussed with referring provider: Fany in person Palliative Assessment Advanced Directive - Current Admission Advance Directive: Advance Directive ON ADMISSION - REFERENCE Do you have a Healthcare No 03/01/25 19:19 Living Will? Do you have a Healthcare Power No 03/01/25 19:19 of Parts Back Counter Man? Do You Want Additional Declined 03/01/25 19:19 Information on Advanced Directives or Symptoms Dyspnea symptoms: Moderate Constipation symptoms: None Nausea symptoms: None Vomiting symptoms: None Depression symptoms: Mild Anorexia symptoms: Mild (improved appetite and eats small frequent meals) Cough symptoms: Mild (intermittent ) Insomnia symptoms: Mild Diarrhea symptoms: None Fatigue symptoms: Mild Weakness symptoms: Moderate Confusion symptoms: None Impression & Recommendations Recommentation Palliative recommendations: although pt would qualify for hospice he is considering the possibility of hospice depending upon what his oncologist gives as options going forward. Encouter Achieved as a result of this Palliative Care Encounter: [ [id number], [id number]] minutes were spent in total for this visit which consisted, primarily of counseling and education dealing with the complex and emotionally intense issues of symptom management and palliative care in the setting of serious and potentially life-threatening illness. Review of documentation, labs and radiological studies. ?Patient/family had the opportunity to ask questions Plan (1) Metastatic cancer to lung: PLAN: Medical management per primary team (2) Acute hypoxic respiratory failure: PLAN: Medical management per primary team Recommend trending pulse ox to assess need for home O2 (3) Pleural effusion: PLAN: Medical management per primary team (4) Palliative care encounter: PLAN: - Continued goals of care conversations - Recommend hospice in the event that the patient is no longer a candidate to receive any further targeted cancer treatment - Continued outpatient palliative care services through the [facility]
[2025-03-03 10:11] LABS: Neutrophil-Segmented 90 % (47-70); Total Cells Counted 100 (MANUAL DIFF)
[2025-03-03 10:12] LABS: Red Cell Morphology NORM C+C NORMAL (NORM C&C)
--- NOTE | 2025-03-03 11:15 | CASEMGMT ---
TOMAS LEAL called [facility] transfer [facility] and spoke with Richelle at [facility]. TOMAS LEAL updated Richelle regarding discharge plan of going home with hospice. Per Richelle, [place] does not have home hospice and is usually contacted with outside provider. Richelle states she will reach out to for additional information and follow with this TOMAS LEAL. TOMAS LEAL updated regarding conversation with [facility].
--- NOTE | 2025-03-03 11:34 | CASEMGMT ---
Addendum entered by Rakel Zapata 03/03/25 14:21: Social Work No return call from [place] SWs at this time. DAXA placed a all to DAXA Bustillo at [facility] and left a message requesting a return call. KRIS Paul Addendum entered by Rakel Zapata 03/03/25 12:53: Social Work No return call from [place] SW at this time. SW called DAXA Valentin at [facility] and left to discuss dc planning. KRIS Yates Original Note: Social Work SW collaborated with Palliative ICU NURSE who states she met with pt and futher discussed hospice care. Hospitalist states that pt can be discharged today and [facility] up with [facility] per pt choice for continued care. This DAXA and DAXA Conroy met with pt to discuss discharge plan. Pt confirms plan to discharge home and [facility]. SW spoke with pt regarding hospice care and pt states he is seriously considering this option and would be agreeable to a referral to Hospice through the [place]. Pt states he will need DME at discharge including oxygen, walker, and wheelchair. Pt states his oncologist and Palliative care is with the [facility]. Pt states his fiance is able to help at home and pt has family support. Phone call to the [facility] and left with CARLO Altamirano to arrange for home services. SW will await return call. KRIS Lozano
--- NOTE | 2025-03-03 16:12 | CASEMGMT ---
Social Work DAXA received call back from DAXA Bustillo [facility]. Keny recommends that pt utilize hospice services through [facility] A benefit and choose provider of choice and pt can have any hospice services as usual protocol. [place] does not have an established home hospice program, although they do have an inpatient unit at [facility]. If pt would like to go through the [place] for billing purposes, [place] would contract with an outside hospice company and pt would not have the opportunity to utilize the local IPU. DAXA met with pt and with significant other Deyanira Mcallister ([phone]). DAXA provided this information to pt. Pt and Deyanira would like to proceed with a hospice consultation through Medicare and preferred provider is [facility]. SW notified physician and physician is agreeable to hospice consult. Referral sent to [facility]. KRIS Yates
--- NOTE | 2025-03-03 17:07 | CASEMGMT ---
Social Work Hospice meeting scheduled between 1:30 and 2:00 tomorrow. RN ramsey. KRIS Lozano
[2025-03-03] MEDS: Azithromycin 500 MG in 0.9% Normal Saline (250mL Bag) 250 ML 255 MG IV (20:01)
[2025-03-04] VITALS (10 sets, daily range): BP systolic 98–131; BP diastolic 76–99; PULSE 103–117; RESP 15–26; TEMP 36.4–36.8; O2SAT 86–98
[2025-03-04] MEDS: 0.9% Saline Lock 10 ML Syringe IV ×3 (05:11→22:34)
[2025-03-04] MEDS: Ampicillin/Sulbactam 3 GM in 0.9% Normal Saline (100mL MB+) 100 ML IV ×4 (05:11→23:44)
[2025-03-04 05:52] LABS: Hematocrit 30.5 % (40-54); Hemoglobin 10.1 g/dL (13.0-16.5); Mean Corp Hgb Conc 33.1 g/dL (32-36); Mean Corpuscular Volume 84.5 fL (80-94); Mean Platelet Vol. 9.6 fl (6.2-12.0); POSITIVE COUNT YES; POSITIVE MORPHOLOGY YES; Platelet Count 462 K/mm3 (150-450); RBC Distribution Width CV 15.8 % (11.6-14.6); RBC Distribution Width SD 48.5 fl (35.1-43.9); Red Blood Count 3.61 M/mm3 (4.6-6.2); White Blood Count 11.2 K/mm3 (4.4-11.0)
[2025-03-04 06:15] LABS: Differential Indicated MANUAL DIFF
[2025-03-04 06:21] LABS: Anion Gap 13 (5-15); BUN 19 mg/dL (4-19); BUN/Creat Ratio 25.1 RATIO (10-20); Calcium,Total 8.7 mg/dL (7.6-11.0); Carbon Dioxide 26.8 mmol/L (21.0-32.0); Chloride 91 mmol/L (98-108); Estimated Creatinine Clearance 78.64 ml/min (50-250); Glucose 93 mg/dL (70-99); Magnesium 1.6 mg/dL (1.5-2.2); Potassium 3.5 mmol/L (3.3-5.1)
[2025-03-04 06:48] LABS: Neutrophil-Band 2 % (0-5); Neutrophil-Segmented 81 % (47-70); Total Cells Counted 100 (MANUAL DIFF)
--- NOTE | 2025-03-04 06:57 | PN.HOSP_ITS ---
Reason for Visit Chief Complaint: Shortness of breath Subjective Subjective Patient seen much more cooperative compared to previously. Patient is scheduled to have a meeting with hospice service this afternoon. Decision regarding discharge made after the meeting Objective Data Objective Data Vital Signs: Vital Signs Temp Pulse Resp BP Pulse Ox O2 Del Method O2 Flow Rate 97.6 F L 112 H 19 H 115/93 H 95 Nasal Cannula 2 03/04/25 05:15 03/04/25 05:15 03/04/25 05:15 03/04/25 05:15 03/04/25 05:15 03/04/25 05:31 03/04/25 05:31 Oxygen Flow Rate (L/min) 2 Oxygen Delivery Method Nasal Cannula Weight: 63.8 kg Body Mass Index (BMI) 20.2 Intake & Output: Intake and Output for Last 24 Hours 03/02/25 03/03/25 03/04/25 23:59 23:59 23:59 Intake Total 1335 / 1335 675 / 675 200 / 200 Output Total 2650 / 2650 2500 / 3000 1400 / 1400 Balance -1315 / -1315 -1825 / -2325 -1200 / -1200 Medical Nutrition Assessment Dietitian: Malnutrition Criteria Met Start: 03/02/25 08:20 Freq: Status: Active Protocol: Document 03/02/25 16:19 RMA (Rec: 03/02/25 16:19 RMA [id number]) Nutrition Malnutrition Evidence of Yes Malnutrition Exists Malnutrition (severe Chronic ): Evidenced By Suboptimal Energy Intake (Severe),Weight Loss (Severe), Physical Changes (Severe) Clinical Problem Chronic Disease or Condition Related Malnutrition Etiology Severe protein-calorie malnutrition in the context of chronic disease related to inadequate energy/oral intake and increased energy expenditure Signs/Symptoms as evidenced by ~15% unintentional body weight loss x 2 months; PO meeting less than 50% estimated nutrition needs x past 1 month; BMI 20.2; muscle wasting/fat depletion in the clavicle, face, arms and legs Status Active Problem Recommendation Dietitian Will liberalize diet to Regular. Recommendations/ Will add magic cup with lunch. Changes Will add 240mL ensure plus HP w/ breakfast and dinner tray. Additional ONS as needed. Lab / Micro Data 03/04/25 04:52 03/04/25 04:52 Labs: Laboratory Results - last 24 hr 03/03/25 04:56: Absolute Neuts (auto) 10.3 H, Absolute Lymphs (auto) 0.50 L, Total Counted 100, Neutrophils % (Manual) 90 H, Lymphocytes % (Manual) 4 L, Monocytes % (Manual) 2, Metamyelocytes % 3 H, Promyelocytes % 1 H, Platelet Estimate SLT INC, RBC Morphology NORM C+C 03/04/25 04:52: WBC 11.2 H, RBC 3.61 L, Hgb 10.1 L, Hct 30.5 L, MCV 84.5, MCH 28.0, MCHC 33.1, RDW Std Deviation 48.5 H, RDW Coeff of Hai 15.8 H, Plt Count 462 H, MPV 9.6, Neut % (Auto) Not Reportable, Absolute Neuts (auto) 9.3 H, Absolute Lymphs (auto) 1.00, Total Counted 100, Neutrophils % (Manual) 81 H, Band Neutrophils % 2, Lymphocytes % (Manual) 9 L, Monocytes % (Manual) 3, Eosinophils % (Manual) 2, Metamyelocytes % 2 H, Myelocytes % 1 H, Sodium 131 L, Potassium 3.5, Chloride 91 L, Carbon Dioxide 26.8, Anion Gap 13, BUN 19, Creatinine 0.74, Estim Creat Clear Calc 78.64, Est GFR (MDRD) Non-Af 98, B UN/Creatinine Ratio 25.1 H, Glucose 93, Calcium 8.7, Phosphorus 3.1, Magnesium 1.6 Micro: Microbiology 03/01/25 05:57 Blood Culture (Wb) - Right Wrist Blood Culture - Preliminary No growth in 48 hours. 03/01/25 05:40 Blood Culture (Wb) - Right Wrist Blood Culture - Preliminary No growth in 48 hours. 03/01/25 21:02 Mucosa - Nasopharyngeal Respiratory Panel (PCR) - Final 03/01/25 21:48 Urine, Clean Catch Streptococcus pneumoniae Antigen (M - Final 03/01/25 21:48 Urine, Clean Catch Legionella Antigen - Final Rhythm Strip Rhythm Strip: Sinus Tach Rate: 140 Ectopy: PVC(s) and - (short run of SVT) Social Homelessness:: Sheltered Physical Exam Narrative GENERAL: cooperative but frail looking HEENT: Atraumatic; normocephalic EYES; Anicteric, Normal Conjunctiva NECK; supple, normal thyroid, RESPIRATORY: Diminished to auscultation CARDIOVASCULAR: Regular S1 S2, GI: soft, normoactive bowel sounds, : No Renal angle tenderness; EXTREMITIES: No edema, no clubbing, MUSCULOSKELETAL: no muscle wasting NEURO: Awake; no lateralizing signs. SKIN: No Rash PSYCH; Flat affect Assessment & Plan Assessment/Plan (1) Obstructive pneumonia: (2) Pleural effusion: (3) Metastatic cancer to lung: PLAN: Plan Patient is a 69-year-old gentleman with history of stage IV metastatic lung CA who presented with shortness of breath 1. Acute hypoxia ? CT demonstrated mild increase in the size of the left upper lobe/left hilar mass. Increased left pleural effusion. Increased left basilar atelectasis/consolidation. Increased cavitation in the left lower lobe. Unchanged mediastinal and hilar lymphadenopathy. Mild increase in the size and number of multiple pulmonary nodules with the largest measuring 16 mm. Placed on supplemental oxygen with treatment of the underlying clinical etiology ? 03/04/2025; patient remains on supplemental oxygen plan is for patient to be assessed for home oxygen prior to being discharged 2. Postobstructive pneumonia ?Patient managed with Unasyn. ? 03/04/2025; patient WBC count remains elevated 3. Acute congestive heart failure with decreased ejection fraction ? 2D echo obtained demonstrated moderate global left ventricular systolic dysfunction with EF of 35%. Patient was placed on diuretic therapy ? 4. Metastatic lung CA ? Patient has apparently failed immunotherapy. Care is at the [facility] patient is requesting to be transferred to the [place] did explain to patient the best option would be for patient to be discharged after being assessed for home oxygen and then he can follow-up 5. 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 Severe protein-calorie malnutrition in the context of chronic disease related to inadequate energy/oral ntake and increased energy expenditure ? Patient was seen in consultation by dietary recommendations reviewed 7. DVT prophylaxis ? Patient started on Lovenox CODE STATUS DNR CCA no intubation ? Consult was also placed to the palliative care team to discuss goals of care next 03/04/2025 patient seen much more cooperative compared to previously. Patient is scheduled to have a meeting with hospice service this afternoon. Decision regarding discharge made after the meeting Time spent in the patient's overall evaluation,decision-making process, review of diagnostic data, adjustment of management, discussion with other providers, nursing nursing and ancillary staff involved in patient's care documentation, 36 Minutes Charges/Coding Visit Charges Inpatient E&M: 39525 Subs Hosp L2
[2025-03-04] MEDS: Ipratropium 0.5 MG/2.5 ML SOLUTION INHALATION ×2 (07:50→19:50)
--- NOTE | 2025-03-04 08:30 | PCM.PN.PAL ---
Subjective Subjective 03/04/25: I did meet with Addy in his room. He was in day [facility] and Deyanira was also in the room for support. Pt did report having 9/10 pain last night. I was contacted to confirm that the pt takes Oxy 10mg PO for severe pain. Addy endorsed that he feels that going home with hospice is his best option. He plans to continue adjunct modalities to his traditional medical practices. He does acknowledge some SOB this morning but states manageable He was, initially speaking in 3-4 word sentences but as he became distracted with our discussion, I noted his breathing to ease and he was able to speak in complete sentences. He plans to continue writing a memoir about his dealing with cancer diagnosis. Addy is a deep thinker and I did encourage him to continue to do the things that brings him mick. All questions answered. 03/03/25: Creatinine is daily at bedside I did review documentation and labs from overnight. I did note that he has had an improvement in his WBCs from 13.5-11.4. Slight decrease in his hemoglobin hematocrit from 10.5-9.8 today and 32.6 yesterday to 30.3 today. Platelets continue to be elevated at 491. He is slightly hyponatremic with a sodium of 131. BUN is slightly elevated at 20 from 16 yesterday. Patient continues to receive Lasix. I then met with Emeterio finney. He was sitting up in his bed stabilizing his trunk well, away from the back of the bed. Family initially wanted to speak about alternative healing methods for his cancer. I do support his utilization of Eastern and Ayurvedic medicine to assist with his healing but I also discussed comfort measures while not receiving traditional Western medicine such as chemotherapy or radiation. I did discuss the possibility of hospice services for comfort in addition to his nontraditional healing practices. He did state that he will think about it as he thought it may be a good adjunct if he is unable to receive any further treatment from a Western medicine standpoint. He did state that [facility] He is hopeful that he will be able to find a provider that is willing to treat his cancer. We then discussed what the typical criteria is for continued Western medicine treatment in which Addy states understanding. I then discussed that yesterday he refused PT and OT and did not want to get the bed. I explained to him that he needs to be able to get out of the bed and utilize a walker if he wants any chance in receiving continue Western medicine. Addy did state understanding and states that he will work with PT and OT and is mad at himself or refusing yesterday. He expressed frustration over the management of his pain medications. He states that at home he takes oxycodone 2.5 mg or 5 mg up to 10 mg every 4 hours depending on symptoms and pain. I did state understanding and explained that that is a typical palliative order to utilize the lowest dose possible in managing symptoms. I do recommend oxycodone 2.5 mg p.o. every 4 hours as needed for mild pain 1-3 or mild shortness of breath, oxycodone 5 mg p.o. every 4 hours as needed for moderate pain 4-6 and/or moderate shortness of breath and oxycodone 10 mg p.o. every 4 hours as needed for severe pain 7-10 and/or severe shortness of breath. An attempt to meet Addy where he is at, will continue to discuss adjunct treatments and what that would look like for him going forward from a nutritional standpoint as well as his mind and spirit. Addy plans to more aggressively implement meditation, guided imagery and relaxation and exercises. He does note that his symptoms get worse when he becomes anxious or sad having a bad day. States good understanding of how his mind has been affecting symptoms. I did recommend that he finds a good balance between his Eastern philosophy and Western medicine which he states agreement. He does state that he is not against initiating hospice for comfort and that he would like to receive those services to through the [facility] and would like to speak to them first. He does have a palliative care provider at the [facility]. I did encourage him to reach out to them sooner rather than later to get assistance with managing his symptoms. I then spoke with Dr. Loya, to update him on Addy's desire to go to the [facility]. He recommended the possibility of discharge to home and then have the patient reach out to his primary care providers for next steps at the [facility]. Lastly, I did speak to Addy about POA and the importance of establishing a POA going forward. Particularly, because he would like his Deyanira vick to be his decision-maker. He plans to initiate them as soon as he is discharged. Addy did take lots of notes during our conversation and asked very good questions, which were answered. Palliative care will continue to follow for support as the patient's clinical picture evolves. 03/02/25Prior to meeting with the pt at bedside, I reviewed previous documentation, labs, radiological studies and well as diagnostic studies. I then met with the pt at bedside. I introduced myself to both Addy and his fiance , Deyanira and the concept of palliative care, which they voluntarily accepted our services. I ask Addy what he knew of his diagnosis, in which he confirmed that his oncologist stated that he has completed 3 rounds of immunotherapy with no improvement in his cancer. They are not convinced that he will receive any further treatment from his oncologist. Addy continually talks about various doctors that have had great success with treatments Dr Segal and out of [place]. I did ask if he has reached out to these doctors and been accepted as a patient? He stated that he has not but states that he is going to have them contact the doctors here and they can tell them what to do. I explained to him that it typically doesn't work that way. He then talked about going to a cancer treatment center in [place]. Currently, he is not well enough for travel and I did ask him how he plans to get there. He did not have a response, at this time. I am concerned that he may be experiencing denial in his grief process. He did endorse that he spends 90% of his time in bed, while at home. I then discussed his Echocardiogram and gave he and Deyanira a overview of what it said with explanations. They both stated understanding. I explained his EF of 35% and elevated troponins x 3 of 36, 34 and 29. BNP of 2433, Along with his metastatic stage IV lung cancer without receiving any further treatments, would make him eligible for hospice. Both Addy and Deyanira stated that they don't feel they are ready for that. I did offer supportive listening and allowed them to change the subject and followed their trajectory. We did discuss the fact that he is very weak and will, most likely, not be a candidate for continued therapies unless he can gain some strength. He is open to continued PT/OT services to get stronger. He is currently waiting for a bed at the [facility] and states that he feels his symptoms are being controlled well, at this time. He is open to further conversations and Palliative care will continue to follow. All questions answered. Per hospitalist EMETERIO CHENEY, is a 69y/o male w/ hx of stage IV lung cancer not receiving any treatment because he was not responding to immunotherapy and symptomatic anemia who presented [facility] ED 03/01/2025 for shortness of breath especially in the mornings but over the past 3 days he has continued to worsen, also has mild wheezing and coughing. Also notes the past 2 weeks he has had increased swelling in his lower extremities. In the ED patient afebrile, patient with variable heart rate anywhere from 90s to 120s, blood pressure initially 106/92, respiratory rate 18 patient 98% on 3 L nasal cannula with a respiratory rate of 19. CBC with white blood cell count 14.4, hemoglobin 10.2 and platelet count 459. BMP with a sodium of 126, up from 120 in December, BUN of 11 and creatinine 0.65, Trop of 36 with 4-hour Trop of 29, and a proBNP of 2433. Lactic acid within normal limits. CTA obtained and showed mild increase in size of patient's left upper lobe/left hilar mass with increased cavitation consolidation as well as left pleural effusion, mild increase in size and number of pulmonary nodules, unchanged multifocal compression of the left pulmonary artery and branches. ED physician was concern for postobstructive pneumonia and fluid overload, patient received Rocephin and azithromycin as well as IV Lasix in the ED. Patient with [facility] insurance and was supposed to be transferred however no beds for prolonged amount of time and [facility] of bed availability so hospitalist contacted for admission. Patient evaluated bedside. Patient reports he is still having shortness of breath but feels better than when he first arrived especially since he has been pain off fluid. He notes that he has been having shortness of breath and cough for a year and was diagnosed with stage IV lung cancer, usually he short of breath when he wakes up in the morning but then will improve throughout the day and some days will not feel too bad at all over the past 3 days he has not been improving throughout the day, does cough but has difficulty producing any sputum, also notes leg swelling for the past 2 weeks. He reports before his lung cancer diagnosis he had never been hospitalized and did not take any medications, denies smoking, only thing he takes at home currently is oxycodone as needed since his diagnosis. Denies any breathing treatments at home and does not wear home oxygen. He denies any chest pain, no fever at home, occasionally gets some abdominal pain but nothing significant, had been having problems with constipation but that has resolved, denies nausea. Denies problems with urination Objective Data Objective Data Vital Signs: Vital Signs Temp Pulse Resp BP Pulse Ox O2 Del Method O2 Flow Rate 97.6 F L 112 H 19 H 115/93 H 95 Nasal Cannula 2 03/04/25 05:15 03/04/25 05:15 03/04/25 05:15 03/04/25 05:15 03/04/25 05:15 03/04/25 05:31 03/04/25 05:31 Oxygen Flow Rate (L/min) 2 Oxygen Delivery Method Nasal Cannula Weight: 140 lb 10.479 oz Body Mass Index (BMI) 20.2 Intake & Output: Intake and Output for Last 24 Hours 03/02/25 03/03/25 03/04/25 23:59 23:59 23:59 Intake Total 1335 / 1335 675 / 675 200 / 200 Output Total 2650 / 2650 2500 / 3000 1400 / 1400 Balance -1315 / -1315 -1825 / -2325 -1200 / -1200 Medical Nutrition Assessment Dietitian: Malnutrition Criteria Met Start: 03/02/25 08:20 Freq: Status: Active Protocol: Document 03/02/25 16:19 RMA (Rec: 03/02/25 16:19 RMA [id number]) Nutrition Malnutrition Evidence of Yes Malnutrition Exists Malnutrition (severe Chronic ): Evidenced By Suboptimal Energy Intake (Severe),Weight Loss (Severe), Physical Changes (Severe) Clinical Problem Chronic Disease or Condition Related Malnutrition Etiology Severe protein-calorie malnutrition in the context of chronic disease related to inadequate energy/oral intake and increased energy expenditure Signs/Symptoms as evidenced by ~15% unintentional body weight loss x 2 months; PO meeting less than 50% estimated nutrition needs x past 1 month; BMI 20.2; muscle wasting/fat depletion in the clavicle, face, arms and legs Status Active Problem Recommendation Dietitian Will liberalize diet to Regular. Recommendations/ Will add magic cup with lunch. Changes Will add 240mL ensure plus HP w/ breakfast and dinner tray. Additional ONS as needed. Lab / Micro Data Attestation: I reviewed the patient's lab results. 03/04/25 04:52 03/04/25 04:52 Labs: Laboratory Results - last 24 hr 03/03/25 04:56: Absolute Neuts (auto) 10.3 H, Absolute Lymphs (auto) 0.50 L, Total Counted 100, Neutrophils % (Manual) 90 H, Lymphocytes % (Manual) 4 L, Monocytes % (Manual) 2, Metamyelocytes % 3 H, Promyelocytes % 1 H, Platelet Estimate SLT INC, RBC Morphology NORM C+C 03/04/25 04:52: WBC 11.2 H, RBC 3.61 L, Hgb 10.1 L, Hct 30.5 L, MCV 84.5, MCH 28.0, MCHC 33.1, RDW Std Deviation 48.5 H, RDW Coeff of Hai 15.8 H, Plt Count 462 H, MPV 9.6, Neut % (Auto) Not Reportable, Absolute Neuts (auto) 9.3 H, Absolute Lymphs (auto) 1.00, Total Counted 100, Neutrophils % (Manual) 81 H, Band Neutrophils % 2, Lymphocytes % (Manual) 9 L, Monocytes % (Manual) 3, Eosinophils % (Manual) 2, Metamyelocytes % 2 H, Myelocytes % 1 H, Sodium 131 L, Potassium 3.5, Chloride 91 L, Carbon Dioxide 26.8, Anion Gap 13, BUN 19, Creatinine 0.74, Estim Creat Clear Calc 78.64, Est GFR (MDRD) Non-Af 98, BUN/Creatinine Ratio 25.1 H, Glucose 93, Calcium 8.7, Phosphorus 3.1, Magnesium 1.6 Micro: Microbiology 03/01/25 05:57 Blood Culture (Wb) - Right Wrist Blood Culture - Preliminary No growth in 48 hours. 03/01/25 05:40 Blood Culture (Wb) - Right Wrist Blood Culture - Preliminary No growth in 48 hours. 03/01/25 21:02 Mucosa - Nasopharyngeal Respiratory Panel (PCR) - Final 03/01/25 21:48 Urine, Clean Catch Streptococcus pneumoniae Antigen (M - Final 03/01/25 21:48 Urine, Clean Catch Legionella Antigen - Final Rhythm Strip Rhythm Strip: Sinus Tach Rate: 140 Ectopy: PVC(s) and - (short run of SVT) Social Homelessness:: Sheltered Physical Exam Const alert and oriented x3 General Appearance: cooperative Orientation / Consciousness: awake, oriented to person, oriented to place and oriented to time Nutritional Appearance: underweight HEENT normocephalic Eyes PERRL Neck full ROM General: normal visual inspection Resp Effort and Inspection: symmetric chest movement Auscultation: wheezes and diminished lung sounds Cardio regular rate GI GI Narrative: hernia noted Skin General Skin Exam: no breakdown Neuro oriented x3 and CN's II-XII intact bilaterally Sensorium / Orientation: awake, alert, oriented to person, oriented to place and oriented to time Psych Activity / Motor Behavior: appropriate eye contact Speech: normal speech Thought Process: normal thought process Charges/Coding Palliative Care Palliative Care: 64028 Follow up 50+ min Consulation Summary Current admission Current Code Status: DNRCC-A Associated Diagnosis: metastatic lung cancer Consult Data Date of Consult: 03/02/25 Location of consult: PCU Reason for referral: Goals of care Referral source: Dr. Loera Palliative care diagnosis (Summary list): Stage IV metastatic lung cancer, EF of 35% Palliative care services/treatment (Accepted, as consult): accepted Case discussed with referring provider: discharge planning Palliative Assessment Advanced Directive - Current Admission Advance Directive: Advance Directive ON ADMISSION - REFERENCE Do you have a Healthcare No 03/01/25 19:19 Living Will? Do you have a Healthcare Power No 03/01/25 19:19 of Student Services Counselor? Do You Want Additional Declined 03/01/25 19:19 Information on Advanced Directives or Healthcare Proxy/DPOA comments: nic Mcmillan. No formal POA, yet. Symptoms Dyspnea symptoms: Moderate Constipation symptoms: None Nausea symptoms: None Vomiting symptoms: None Depression symptoms: None Anorexia symptoms: Moderate Cough symptoms: None Insomnia symptoms: None Diarrhea symptoms: None Fatigue symptoms: Mild Weakness symptoms: Mild Confusion symptoms: None Impression & Recommendations Recommentation Palliative recommendations: pt having info meeting with hospice today at [address] Achieved as a result of this Palliative Care Encounter: [ [id number]] minutes were spent in total for this visit which consisted, primarily of counseling and education dealing with the complex and emotionally intense issues of symptom management and palliative care in the setting of serious and potentially life-threatening illness. Review of documentation, labs and radiological studies. ?Patient/family had the opportunity to ask questions Plan (1) Metastatic cancer to lung: PLAN: Medical management per primary team (2) Pleural effusion: PLAN: Medical management per primary team (3) Acute hypoxic respiratory failure: PLAN: Medical management per primary team O2 as needed and for comfort (4) Palliative care encounter: PLAN: Informational meeting from hospice today- Continued support from palliative care during admission
[2025-03-04] MEDS: Metoprolol(XL)Succ 25 MG Tablet PO (09:13)
--- NOTE | 2025-03-04 15:22 | CASEMGMT ---
[facility] here to meet with pt. SW spoke with [facility] RN who states that she met with pt and after discussion, pt has decided against hospice care. SW met with pt and with pt's significant other Deyanira. Pt very frustrated with current situation. Pt states that he wants to continue to actively seek medical treatment for cancer and therefore does not want hospice care. SW inquired if oncologist has provided additional treatment options. Pt states oncologist has not given additional options but that pt is researching additional treatment options on his own. Deyanira asked about home health and pt denied this service. Pt requesting home oxygen and SW explained that pt will have to meet qualifications for insurance to cover home oxygen. Pt becoming angry about this and feels that he should be looked at as a person and not a number for oxygen qualification. SW provided support to pt regarding frustrations with health care procedures. DAXA notified RNCM of pt desire to return home with no hospice and desire for home oxygen. KRIS Yates
--- NOTE | 2025-03-04 16:55 | CASEMGMT ---
TOMAS CM NOTE: Home O2 amb testing completed. Pt qualifies for home O2. [facility]. Pt and Dr Soares made aware. Shen APPIAHN RN CM
[2025-03-05] VITALS (9 sets, daily range): BP systolic 104–124; BP diastolic 77–86; PULSE 99–112; RESP 17–22; TEMP 36.4–36.8; O2SAT 89–99
[2025-03-05] MEDS: Ampicillin/Sulbactam 3 GM in 0.9% Normal Saline (100mL MB+) 100 ML IV (04:55)
[2025-03-05 05:47] LABS: Hematocrit 30.8 % (40-54); Hemoglobin 9.8 g/dL (13.0-16.5); Mean Corp Hgb Conc 31.8 g/dL (32-36); Mean Corpuscular Volume 84.8 fL (80-94); Mean Platelet Vol. 9.6 fl (6.2-12.0); POSITIVE COUNT YES; POSITIVE MORPHOLOGY YES; Platelet Count 464 K/mm3 (150-450); RBC Distribution Width CV 15.7 % (11.6-14.6); RBC Distribution Width SD 49.0 fl (35.1-43.9); Red Blood Count 3.63 M/mm3 (4.6-6.2); White Blood Count 11.5 K/mm3 (4.4-11.0)
[2025-03-05 06:05] LABS: Differential Indicated MANUAL DIFF
[2025-03-05 06:11] LABS: Anion Gap 13 (5-15); BUN 17 mg/dL (4-19); BUN/Creat Ratio 20.3 RATIO (10-20); Calcium,Total 8.9 mg/dL (7.6-11.0); Carbon Dioxide 29.7 mmol/L (21.0-32.0); Chloride 90 mmol/L (98-108); Estimated Creatinine Clearance 77.67 ml/min (50-250); Glucose 82 mg/dL (70-99); Potassium 3.2 mmol/L (3.3-5.1)
[2025-03-05] MEDS: Ipratropium 0.5 MG/2.5 ML SOLUTION INHALATION (06:47)
[2025-03-05 07:29] LABS: Neutrophil-Band 2 % (0-5); Neutrophil-Segmented 83 % (47-70); Red Cell Morphology NORM C+C NORMAL (NORM C&C); Total Cells Counted 100 (MANUAL DIFF)
--- NOTE | 2025-03-05 08:18 | PCM.DC.SUM ---
Providers Date of Admission: 03/01/25 Date of Discharge: 03/05/25 Primary Care Physician: [facility] Consultations 03/02/25 13:45 Consult: Inpatient Palliative Care Routine Consulting Provider: Leeann Miller Reason for Consult: Follows w/palliative at the [facility]GENT Consult: No Notified: Yes Date Notified: 03/02/25 Time Notified: 13:45 Method of Notification: Text Method of Consult:: In-Person 03/03/25 16:11 Consult: Hospice / Outpatient Palliative Care Routine Consulting Provider: [facility] Reason for Consult: metastatic lung cancer EMERGENT Consult: Yes MD Notified: Yes Date Notified: 03/03/25 Time Notified: 16:11 Method of Notification: Text Reason For Visit: POSTOBSTRUCTIVE PNEUMONIA, FLUID OVERLOAD Diagnosis Discharge Diagnosis (1) Obstructive pneumonia: Status: Acute Code(s): J18.9 - Pneumonia, unspecified organism (2) Pleural effusion: Status: Acute Code(s): J90 - Pleural effusion, not elsewhere classified (3) Metastatic cancer to lung: Status: Acute Code(s): C78.00 - Secondary malignant neoplasm of unspecified lung Plan Patient is a 69-year-old gentleman with history of stage IV metastatic lung CA who presented with shortness of breath 1. Acute hypoxia ? CT demonstrated mild increase in the size of the left upper lobe/left hilar mass. Increased left pleural effusion. Increased left basilar atelectasis/consolidation. Increased cavitation in the left lower lobe. Unchanged mediastinal and hilar lymphadenopathy. Mild increase in the size and number of multiple pulmonary nodules with the largest measuring 16 mm. Placed on supplemental oxygen with treatment of the underlying clinical etiology ? 03/04/2025; patient remains on supplemental oxygen plan is for patient to be assessed for home oxygen prior to being discharged 2. Postobstructive pneumonia ?Patient managed with Unasyn. ? 03/04/2025; patient WBC count remains elevated 3. Acute congestive heart failure with decreased ejection fraction ? 2D echo obtained demonstrated moderate global left ventricular systolic dysfunction with EF of 35%. Patient was placed on diuretic therapy ? 4. Metastatic lung CA ? Patient has apparently failed immunotherapy. Care is at the [facility] patient is requesting to be transferred to the [facility] did explain to patient the best option would be for patient to be discharged after being assessed for home oxygen and then he can follow-up 5. 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 Severe protein-calorie malnutrition in the context of chronic disease related to inadequate energy/oral ntake and increased energy expenditure ? Patient was seen in consultation by dietary recommendations reviewed 7. DVT prophylaxis ? Patient started on Lovenox CODE STATUS DNR CCA no intubation ? Consult was also placed to the palliative care team to discuss goals of care next 03/04/2025 patient seen much more cooperative compared to previously. Patient is scheduled to have a meeting with hospice service this afternoon. Decision regarding discharge made after the meeting ? 03/05/2025; patient declined hospice decision was made to discharge patient home with plans for patient to follow-up with the palliative care team at the [facility] Time spent in the patient's overall evaluation,decision-making process, review of diagnostic data, adjustment of management, discussion with other providers, nursing nursing and ancillary staff involved in patient's care documentation, 36 Minutes Medications at Discharge Home Medications dexamethasone 4 mg tablet 4 mg PO DAILY unknown 03/02/25 empagliflozin 25 mg tablet (Jardiance) 12.5 mg PO DAILY unknown 03/02/25 metoprolol succinate 25 mg tablet,extended release 24 hr (Toprol XL) 25 mg PO DAILY unknown 03/02/25 ondansetron 8 mg disintegrating tablet 8 mg PO Q8H nausea 03/02/25 oxycodone 5 mg capsule 5 mg PO Q4H pain 03/02/25 amoxicillin 875 mg-potassium clavulanate 125 mg tablet 1 tab PO BID 7 days #14 tabs 03/05/25 furosemide 40 mg tablet 40 mg PO DAILY #30 tabs 03/05/25 guaifenesin 1,200 mg tablet, extended release 12 hr (Mucus Relief ER) 1,200 mg PO BID #60 tabs 03/05/25 potassium chloride 20 mEq tablet,extended release(part/cryst) 20 meq PO BIDCM #60 tabs 03/05/25 sennosides 8.6 mg-docusate sodium 50 mg tablet (Stimulant Laxative Plus) 2 tab PO BID #60 tabs 03/05/25 Physical Exam Narrative GENERAL: cooperative but frail looking HEENT: Atraumatic; normocephalic EYES; Anicteric, Normal Conjunctiva NECK; supple, normal thyroid, RESPIRATORY: Diminished to auscultation CARDIOVASCULAR: Regular S1 S2, GI: soft, normoactive bowel sounds, : No Renal angle tenderness; EXTREMITIES: No edema, no clubbing, MUSCULOSKELETAL: no muscle wasting NEURO: Awake; no lateralizing signs. SKIN: No Rash PSYCH; Flat affect Medical Records Data Medical Nutrition Assessment Dietitian: Malnutrition Criteria Met Start: 03/02/25 08:20 Freq: Status: Active Protocol: Document 03/02/25 16:19 RMA (Rec: 03/02/25 16:19 RMA [id number]) Nutrition Malnutrition Evidence of Yes Malnutrition Exists Malnutrition (severe Chronic ): Evidenced By Suboptimal Energy Intake (Severe),Weight Loss (Severe), Physical Changes (Severe) Clinical Problem Chronic Disease or Condition Related Malnutrition Etiology Severe protein-calorie malnutrition in the context of chronic disease related to inadequate energy/oral intake and increased energy expenditure Signs/Symptoms as evidenced by ~15% unintentional body weight loss x 2 months; PO meeting less than 50% estimated nutrition needs x past 1 month; BMI 20.2; muscle wasting/fat depletion in the clavicle, face, arms and legs Status Active Problem Recommendation Dietitian Will liberalize diet to Regular. Recommendations/ Will add magic cup with lunch. Changes Will add 240mL ensure plus HP w/ breakfast and dinner tray. Additional ONS as needed. Homelessness:: Sheltered Weight / BMI Weight Weight: 63.8 kg Body Mass Index (BMI) 20.2 ABG / Lab / Microbiology Data 03/05/25 04:55 03/05/25 04:55 Laboratory: Laboratory Results - last 24 hr 03/05/25 04:55: WBC 11.5 H, RBC 3.63 L, Hgb 9.8 L, Hct 30.8 L, MCV 84.8, MCH 27.0, MCHC 31.8 L, RDW Std Deviation 49.0 H, RDW Coeff of Hai 15.7 H, Plt Count 464 H, MPV 9.6, Neut % (Auto) Not Reportable, Absolute Neuts (auto) 9.8 H, Absolute Lymphs (auto) 1.50, Total Counted 100, Neutrophils % (Manual) 83 H, Band Neutrophils % 2, Lymphocytes % (Manual) 13 L, Monocytes % (Manual) 2, Platelet Estimate SLT INC, RBC Morphology NORM C+C, Sodium 133, Potassium 3.2 L, Chloride 90 L, Carbon Dioxide 29.7, Anion Gap 13, BUN 17, Creatinine 0.81, Estim Creat Clear Calc 77.67, Est GFR (MDRD) Non-Af 95, BUN/Creatinine Ratio 20.3 H, Glucose 82, Calcium 8.9 Microbiology: Microbiology 03/01/25 05:57 Blood Culture (Wb) - Right Wrist Blood Culture - Preliminary No growth in 48 hours. 03/01/25 05:40 Blood Culture (Wb) - Right Wrist Blood Culture - Preliminary No growth in 48 hours. 03/01/25 21:02 Mucosa - Nasopharyngeal Respiratory Panel (PCR) - Final 03/01/25 21:48 Urine, Clean Catch Streptococcus pneumoniae Antigen (M - Final 03/01/25 21:48 Urine, Clean Catch Legionella Antigen - Final D/C Instructions Discharge Activity: Return to Normal Activity Call your doctor if you observe: Fever of 101 or Higher, Shortness of breath, Fainting spells and Chest pain DC O2, CPAP, BIPAP Needs Home O2 Discharge instructions: Yes Type of respiratory needs?: Oxygen (2) Oxygen frequency: Continuous (2) Continuous oxygen liters per minute: 2 DC home with Oxygen: Yes Home O2 MD Review: I have reviewed the oxygen testing, and the patient qualifies for home oxygen equipment and portability. The patient is mobile in the home and the community. Meaningful Use Info Meaningful Use Meaningful Use Diagnoses (Choose all that apply): None applicable Discharge Plan Admission Admit Date/Time: 03/01/25 18:58 Attending Provider: Zackery Soares Primary Care Provider: [facility] Consulting Providers: Kavita Myles; Leeann Miller; Javid Loera; Zackery Myrick; Umu Rodrigez; Jade Chavarria; Consuelo Lopez; Lulu Murry NP; Juana Krause Discharge Orders/Prescriptions Prescriptions: New sennosides-docusate sodium [Stimulant Laxative Plus] 8.6-50 mg Tablet 2 tab PO BID Qty: 60 0RF potassium chloride 20 mEq Tablet,Er Particles/Crystals 20 meq PO BIDCM Qty: 60 0RF guaifenesin [Mucus Relief ER] 1,200 mg Tablet Extended Release 12hr 1,200 mg PO BID Qty: 60 0RF furosemide 40 mg Tablet 40 mg PO DAILY Qty: 30 0RF amoxicillin-pot clavulanate 875-125 mg Tablet 1 tab PO BID 7 Days Qty: 14 0RF Continued oxycodone 5 mg capsule 5 mg PO Q4H Rx Instructions: take 1-2 tabs as needed for pain ondansetron 8 mg tablet,disintegrating 8 mg PO Q8H Jardiance 25 mg tablet 12.5 mg PO DAILY metoprolol succinate [Toprol XL] 25 mg tablet extended release 24 hr 25 mg PO DAILY dexamethasone 4 mg tablet 4 mg PO DAILY Referrals / Follow Up: [facility] [Primary Care Provider] - Within 1 Week Disposition Disposition (needs filled in before D/C Order can be placed): Home, Self Care Charges/Coding Visit Charges Inpatient E&M: 28725 Disch Hosp >30min
--- NOTE | 2025-03-05 09:17 | PN.PALL_ITS ---
Subjective Subjective Subjective Subjective 03/05/25: Prior to meeting with the pt at bedside, I reviewed documentation from overnight. I also talked to SW/CM about meeting the pt had with hospice yesterday. I then met with Addy at bedside. When I initially entered the room, he was very agitated and stated that the hopsice meeting was crap. I did ask him to explain. He stated that he is unable to continue to seek treatment while on hospice. I did explain to him that he can continue to seek eastern medicine treatments that he had discussed before but that anything that would pull from his medicare, would not be allowed. He states understanding and stated that his philosophy and that of the hospice did not gel well. I did state understanding . We then discussed what his hopes are going forward. He is hoping to find an oncologist that can continue with treatments, even if they are trials. He wants to continue with meditation, diet and activity as well as other modalities that he can assist with the possibility of healing. He is agreeing to follow up with palliative care provider Dr. Berna Jiménez, whom he is established. I will contact her today for a warm handoff. All questions answered. Pt is waiting for O2 delivery at home for discharge. 03/04/25: I did meet with Addy in his room. He was in [facility] and Deyanira was also in the room for support. Pt did report having 9/10 pain last night. I was contacted to confirm that the pt takes Oxy 10mg PO for severe pain. Addy endorsed that he feels that going home with hospice is his best option. He plans to continue adjunct modalities to his traditional medical practices. He does acknowledge some SOB this morning but states manageable He was, initially speaking in 3-4 word sentences but as he became distracted with our discussion, I noted his breathing to ease and he was able to speak in complete sentences. He plans to continue writing a memoir about his dealing with cancer diagnosis. Addy is a deep thinker and I did encourage him to continue to do the things that brings him mick. All questions answered. 03/03/25: Creatinine is daily at bedside I did review documentation and labs from overnight. I did note that he has had an improvement in his WBCs from 13.5- 11.4. Slight decrease in his hemoglobin hematocrit from 10.5-9.8 today and 32.6 yesterday to 30.3 today. Platelets continue to be elevated at 491. He is slightly hyponatremic with a sodium of 131. BUN is slightly elevated at 20 from 16 yesterday. Patient continues to receive Lasix. I then met with Emeterio finney. He was sitting up in his bed stabilizing his trunk well, away from the back of the bed. Family initially wanted to speak about alternative healing methods for his cancer. I do support his utilization of Eastern and Ayurvedic medicine to assist with his healing but I also discussed comfort measures while not receiving traditional Western medicine such as chemotherapy or radiation. I did discuss the possibility of hospice services for comfort in addition to his nontraditional healing practices. He did state that he will think about it as he thought it may be a good adjunct if he is unable to receive any further treatment from a Western medicine standpoint. He did state that he would like to receive all of [facility] care from [facility] as he is embedded with [facility]. He is hopeful that he will be able to find a provider that is willing to treat his cancer. We then discussed what the typical criteria is for continued Western medicine treatment in which Addy states understanding. I then discussed that yesterday he refused PT and OT and did not want to get the bed. I explained to him that he needs to be able to get out of the bed and utilize a walker if he wants any chance in receiving continue Western medicine. Addy did state understanding and states that he will work with PT and OT and is mad at himself or refusing yesterday. He expressed frustration over the management of his pain medications. He states that at home he takes oxycodone 2.5 mg or 5 mg up to 10 mg every 4 hours depending on symptoms and pain. I did state understanding and explained that that is a typical palliative order to utilize the lowest dose possible in managing symptoms. I do recommend oxycodone 2.5 mg p.o. every 4 hours as needed for mild pain 1-3 or mild shortness of breath, oxycodone 5 mg p.o. every 4 hours as needed for moderate pain 4-6 and/or moderate shortness of breath and oxycodone 10 mg p.o. every 4 hours as needed for severe pain 7-10 and/or severe shortness of breath. An attempt to meet Addy where he is at, will continue to discuss adjunct treatments and what that would look like for him going forward from a nutritional standpoint as well as his mind and spirit. Addy plans to more aggressively implement meditation, guided imagery and relaxation and exercises. He does note that his symptoms get worse when he becomes anxious or sad having a bad day. States good understanding of how his mind has been affecting symptoms. I did recommend that he finds a good balance between his Eastern philosophy and Western medicine which he states agreement. He does state that he is not against initiating hospice for comfort and that he would like to receive those services to through the [facility] and would like to speak to them first. He does have a palliative care provider at the [facility]. I did encourage him to reach out to them sooner rather than later to get assistance with managing his symptoms. I then spoke with Dr. Loya, to update him on Addy's desire to go to the [facility]. He recommended the possibility of discharge to home and then have the patient reach out to his primary care providers for next steps at the [facility]. Lastly, I did speak to Addy about POA and the importance of establishing a POA going forward. Particularly, because he would like his Deyanira vick to be his decision-maker. He plans to initiate them as soon as he is discharged. Addy did take lots of notes during our conversation and asked very good questions, which were answered. Palliative care will continue to follow for support as the patient's clinical picture evolves. 03/02/25Prior to meeting with the pt at bedside, I reviewed previous documentation, labs, radiological studies and well as diagnostic studies. I then met with the pt at bedside. I introduced myself to both Addy and his fiDeyanira slaughter and the concept of palliative care, which they voluntarily accepted our services. I ask Addy what he knew of his diagnosis, in which he confirmed that his oncologist stated that he has completed 3 rounds of immunotherapy with no improvement in his cancer. They are not convinced that he will receive any further treatment from his oncologist. Addy continually talks about various doctors that have had great success with treatments Dr Segal and out of [place]. I did ask if he has reached out to these doctors and been accepted as a patient? He stated that he has not but states that he is going to have them contact the doctors here and they can tell them what to do. I explained to him that it typically doesn't work that way. He then talked about going to a cancer treatment center in [place]. Currently, he is not well enough for travel and I did ask him how he plans to get there. He did not have a response, at this time. I am concerned that he may be experiencing denial in his grief process. He did endorse that he spends 90% of his time in bed, while at home. I then discussed his Echocardiogram and gave he and Deyanira a overview of what it said with explanations. They both stated understanding. I explained his EF of 35% and elevated troponins x 3 of 36, 34 and 29. BNP of 2433, Along with his metastatic stage IV lung cancer without receiving any further treatments, would make him eligible for hospice. Both Addy and Deyanira stated that they don't feel they are ready for that. I did offer supportive listening and allowed them to change the subject and followed their trajectory. We did discuss the fact that he is very weak and will, most likely, not be a candidate for continued therapies unless he can gain some strength. He is open to continued PT/OT services to get stronger. He is currently waiting [facility] a bed [facility] and states that he feels his symptoms are being controlled well, at this time. He is open to further conversations and Palliative care will continue to follow. All questions answered. Per hospitalist EMETERIO NONI, is a 69y/o male w/ hx of stage IV lung cancer not receiving any treatment because he was not responding to immunotherapy and symptomatic anemia who presented [facility] ED 03/01/2025 for shortness of breath especially in the mornings but over the past 3 days he has continued to worsen, also has mild wheezing and coughing. Also notes the past 2 weeks he has had increased swelling in his lower extremities. In the ED patient afebrile, patient with variable heart rate anywhere from 90s to 120s, blood pressure initially 106/92, respiratory rate 18 patient 98% on 3 L nasal cannula with a respiratory rate of 19. CBC with white blood cell count 14.4, hemoglobin 10.2 and platelet count 459. BMP with a sodium of 126, up from 120 in December, BUN of 11 and creatinine 0.65, Trop of 36 with 4-hour Trop of 29, and a proBNP of 2433. Lactic acid within normal limits. CTA obtained and showed mild increase in size of patient's left upper lobe/left hilar mass with increased cavitation consolidation as well as left pleural effusion, mild increase in size and number of pulmonary nodules, unchanged multifocal compression of the left pulmonary artery and branches. ED physician was concern for postobstructive pneumonia and fluid overload, patient received Rocephin and azithromycin as well as IV Lasix in the ED. Patient with [facility] and was supposed to be transferred however no beds for prolonged amount of time and [facility] okay with [facility] to our institution given lack of bed availability so hospitalist contacted for admission. Patient evaluated bedside. Patient reports he is still having shortness of breath but feels better than when he first arrived especially since he has been pain off fluid. He notes that he has been having shortness of breath and cough for a year and was diagnosed with stage IV lung cancer, usually he short of breath when he wakes up in the morning but then will improve throughout the day and some days will not feel too bad at all over the past 3 days he has not been improving throughout the day, does cough but has difficulty producing any sputum, also notes leg swelling for the past 2 weeks. He reports before his lung cancer diagnosis he had never been hospitalized and did not take any medications, denies smoking, only thing he takes at home currently is oxycodone as needed since his diagnosis. Denies any breathing treatments at home and does not wear home oxygen. He denies any chest pain, no fever at home, occasionally gets some abdominal pain but nothing significant, had been having problems with constipation but that has resolved, denies nausea. Denies problems with urination Objective Data Objective Data Vital Signs: Vital Signs Temp Pulse Resp BP Pulse Ox O2 Del Method O2 Flow Rate 98.3 F 109 H 22 H 104/77 93 Nasal Cannula 2 03/05/25 04:58 03/05/25 06:47 03/05/25 06:47 03/05/25 04:58 03/05/25 06:47 03/05/25 06:47 03/05/25 06:47 Oxygen Flow Rate (L/min) 2 Oxygen Delivery Method Nasal Cannula Weight: 140 lb 10.479 oz Body Mass Index (BMI) 20.2 Intake & Output: Intake and Output for Last 24 Hours 03/03/25 03/04/25 03/05/25 23:59 23:59 23:59 Intake Total 675 / 675 400 / 400 200 / 200 Output Total 2500 / 3000 3630 / 3630 200 / 200 Balance -1825 / -2325 -3230 / -3230 0 / 0 Medical Nutrition Assessment Dietitian: Malnutrition Criteria Met Start: 03/02/25 08:20 Freq: Status: Active Protocol: Document 03/02/25 16:19 RMA (Rec: 03/02/25 16:19 RMA [id number]) Nutrition Malnutrition Evidence of Yes Malnutrition Exists Malnutrition (severe Chronic ): Evidenced By Suboptimal Energy Intake (Severe),Weight Loss (Severe), Physical Changes (Severe) Clinical Problem Chronic Disease or Condition Related Malnutrition Etiology Severe protein-calorie malnutrition in the context of chronic disease related to inadequate energy/oral intake and increased energy expenditure Signs/Symptoms as evidenced by ~15% unintentional body weight loss x 2 months; PO meeting less than 50% estimated nutrition needs x past 1 month; BMI 20.2; muscle wasting/fat depletion in the clavicle, face, arms and legs Status Active Problem Recommendation Dietitian Will liberalize diet to Regular. Recommendations/ Will add magic cup with lunch. Changes Will add 240mL ensure plus HP w/ breakfast and dinner tray. Additional ONS as needed. Lab / Micro Data Lab results narrative: potassium is low at 3.2. Recommend replacement 03/05/25 04:55 03/05/25 04:55 Labs: Laboratory Results - last 24 hr 03/05/25 04:55: WBC 11.5 H, RBC 3.63 L, Hgb 9.8 L, Hct 30.8 L, MCV 84.8, MCH 27.0, MCHC 31.8 L, RDW Std Deviation 49.0 H, RDW Coeff of Hai 15.7 H, Plt Count 464 H, MPV 9.6, Neut % (Auto) Not Reportable, Absolute Neuts (auto) 9.8 H, Absolute Lymphs (auto) 1.50, Total Counted 100, Neutrophils % (Manual) 83 H, Band Neutrophils % 2, Lymphocytes % (Manual) 13 L, Monocytes % (Manual) 2, Platelet Estimate SLT INC, RBC Morphology NORM C+C, Sodium 133, Potassium 3.2 L, Chloride 90 L, Carbon Dioxide 29.7, Anion Gap 13, BUN 17, Creatinine 0.81, Estim Creat Clear Calc 77.67, Est GFR (MDRD) Non-Af 95, BUN/Creatinine Ratio 20.3 H, Glucose 82, Calcium 8.9 Micro: Microbiology 03/01/25 05:57 Blood Culture (Wb) - Right Wrist Blood Culture - Preliminary No growth in 48 hours. 03/01/25 05:40 Blood Culture (Wb) - Right Wrist Blood Culture - Preliminary No growth in 48 hours. 03/01/25 21:02 Mucosa - Nasopharyngeal Respiratory Panel (PCR) - Final 03/01/25 21:48 Urine, Clean Catch Streptococcus pneumoniae Antigen (M - Final 03/01/25 21:48 Urine, Clean Catch Legionella Antigen - Final Rhythm Strip Rhythm Strip: Sinus Tach Rate: 109 Ectopy: PVC(s) and - (short run of SVT) Social Homelessness:: Sheltered Physical Exam Narrative ROS as per HPI except that the pt is complaining of cough and mild SOB. O2 is in place. Const oriented x3 General Appearance: cooperative Orientation / Consciousness: awake, oriented to person, oriented to place and oriented to time Exam Limitations: no limitations Nutritional Appearance: cachectic and thin HEENT normocephalic Eyes PERRL Eyes Narrative: corrective lenses Neck full ROM Resp no use of accessory muscles Auscultation: wheezes and diminished lung sounds Cardio regular rhythm Rate: tachycardic GI normal to inspection, nondistended, normoactive bowel sounds Extremity normal to inspection Skin no rashes or lesions noted Neuro oriented x3, CN's II-XII intact bilaterally and moves all extremities Speech: speech normal Psych mental status grossly normal Appearance: grossly normal Activity / Motor Behavior: appropriate eye contact Speech: normal speech Charges/Coding Palliative Care Palliative Care: [id number] Follow up 50+ min Consulation Summary Current admission Current Code Status: DNRCC-A Associated Diagnosis: metastatic lung CA Consult Data Date of Consult: 03/02/25 Location of consult: PCU Reason for referral: Goals of care Referral source: Dr. Loera Palliative care diagnosis (Summary list): Stage IV metastatic lung cancer, EF of 35% Palliative care services/treatment (Accepted, as consult): accepted Case discussed with referring provider: home with O2 and pt not agreeing with hospice philosophy Palliative Assessment Advanced Directive - Current Admission Advance Directive: Advance Directive ON ADMISSION - REFERENCE 3 Do you have a Healthcare No 03/01/25 19:19 Living Will? Do you have a Healthcare Power No 03/01/25 19:19 of Hr Operations Advisor? Do You Want Additional Declined 03/01/25 19:19 Information on Advanced Directives or Symptoms Dyspnea symptoms: Moderate Constipation symptoms: None Nausea symptoms: None Vomiting symptoms: None Depression symptoms: None Anorexia symptoms: None Cough symptoms: Moderate Insomnia symptoms: None Diarrhea symptoms: None Fatigue symptoms: Mild Weakness symptoms: Mild Confusion symptoms: None Impression & Recommendations Impressions Impressions: Pt plans to continue his palliative services and research for cures Recommentation Palliative recommendations: pt having info meeting with hospice today at [address] Achieved as a result of this Palliative Care Encounter: [ [id number], [id number]] minutes were spent in total for this visit which consisted, primarily of counseling and education dealing with the complex and emotionally intense issues of symptom management and palliative care in the setting of serious and potentially life-threatening illness. Review of documentation, labs and radiological studies. ?Patient/family had the opportunity to ask questions Plan (1) Metastatic cancer to lung: PLAN: medical mgmt per primary provider (2) Pleural effusion: PLAN: medical mgmt per primary provider (3) Acute hypoxic respiratory failure: PLAN: home O2 ordered and awaiting delivery (4) Palliative care encounter: PLAN: pt plans to continue with outpatient palliative care dc home today
[2025-03-05] MEDS: Potassium Chloride Oral Tablet 20 MEQ 40 MEQ PO (09:59)
[2025-03-05] MEDS: Metoprolol(XL)Succ 25 MG Tablet PO (10:01)
--- NOTE | 2025-03-05 10:05 | CASEMGMT ---
Addendum entered by Gina Giraldo 03/05/25 15:40: TOMAS LEAL received call from Afshan at [place] that order was signed and sent to [facility] but setup would not be until tomorrow and advised TOMAS LEAL to call [phone] to speak with DME agency. TOMAS LEAL called [facility] and inquired when oxygen would be delivered tomorrow. [facility] rep sent message to local branch to have them contact this TOMAS LEAL. TOMAS LEAL received call from Ronal who states he is able to deliver equipment to patient's home today and would be there in an hour and a half but family would need to be at the house. TOMAS LEAL in to patient's room to update, significant other at bedside. TOMAS LEAL updated patient that they will be delivering oxygen today to his home around 4:45. Significant other states she will go home and wait for oxygen to be delivered. Patient voiced appreciation, denied further needs at discharge, and will [facility] with [facility]. TOMAS LEAL updated hospitalist and PCU charge nurse. Discharge plan updated. Addendum entered by Gina Giraldo 03/05/25 13:44: TOMAS LEAL called Afshan at [facility] to inquire about status of referral. Per Afshan her [facility] MD has not signed for it yet. TOMAS LEAL inquired if there was way to reach out to [facility] MD to expedite referral. Per Afshan, VA MD is busy and no way to message VA MD to expedite referral. TOMAS LEAL inquired if not received by 2pm, could patient be setup over the weekend. Afshan states that if she receives signature by [facility] MD today before she leaves at 4pm, she can arrange for oxygen to be delivered tomorrow, if not patient will be here through weekend. Afsahn inquired if patient could be setup with outside provided with his other insurance. TOMAS LEAL update Afshan that patient only has MCR A benefits and that it does not cover DME only hospitalization. Afshan states she will update this RN MEL before the end of the day. TOMAS LEAL updated patient and hospitalist. Addendum entered by Gina Giraldo 03/05/25 10:55: Updated testing completed and updated order sent to [facility]. TOMAS LEAL called Afshan and confirmed she received new order. Afshan confirmed new order and states she will proceed with referral setup. [facility] MD to review referral and will need to approve setup. Once approval received they will submit to DME company. Afshan states if she does not receive approval from [facility] MD prior to 2pm then patient will not be setup today, but since she received referral early she doesn't think it will be an issue. Afshan to call this TOMAS LEAL when approval received and setup with DME agency. CM will continue to be available to assist with home oxygen setup. Original Note: TOMAS LEAL updated that patient will need home oxygen at discharge. TOMAS LEAL completed [facility] survey with patient, received script, and faxed referral to [facility] at [phone]. TOMAS LEAL called [facility] at [phone] ext [phone] and spoke with Afshan. Afshan confirms that she received information and requested patient be tested on 3lpm with exertion so patient is 90% or higher on oxygen, patient was 89% on 2lpm. Per Afshan, once new prescription received, she will process referral. TOMAS LEAL updated nursing to test patient on 3lpm with exertion. CM will continue to assist with [facility] home oxygen setup.
--- NOTE | 2025-03-05 11:25 | PHA.DC_ITS ---
Pharmacy [facility] Counseling Pharmacy Service has performed discharge medication reconciliation and counseling for this patient. Patient wanted medications sent to [facility]. This [facility] spoke to Arianna at [facility] and requested all 5 medications to be transferred from [facility]. Preferred pharmacy updated in chart. 1. AUGMENTIN 875/125MG PO BID X 7 DAYS 2. FUROSEMIDE 40MG PO DAILY 3. MUCINEX 1200MG PO BID 4. POTASSIUM CHLORIDE 20MEQ PO BIDCM 5. SENNA/DOCUSATE 2T PO BID The patient's discharge medication list was reviewed for discrepancies and dis crepancies were resolved. The patient was counseled on the following discharge medications and changes in medications for homegoing were reviewed. The Reason for Use, instructions for use, and potential side effects were reviewed for all new medications. The patient's questions regarding all of their medications were answered. The patient was able to verbally demonstrate an understanding of their discharge medications. Medications at Discharge Home Medications dexamethasone 4 mg tablet 4 mg PO DAILY unknown 03/02/25 empagliflozin 25 mg tablet (Jardiance) 12.5 mg PO DAILY unknown 03/02/25 metoprolol succinate 25 mg tablet,extended release 24 hr (Toprol XL) 25 mg PO DAILY unknown 03/02/25 ondansetron 8 mg disintegrating tablet 8 mg PO Q8H nausea 03/02/25 oxycodone 5 mg capsule 5 mg PO Q4H pain 03/02/25 amoxicillin 875 mg-potassium clavulanate 125 mg tablet 1 tab PO BID 7 days #14 tabs 03/05/25 furosemide 40 mg tablet 40 mg PO DAILY #30 tabs 03/05/25 guaifenesin 1,200 mg tablet, extended release 12 hr (Mucus Relief ER) 1,200 mg PO BID #60 tabs 03/05/25 potassium chloride 20 mEq tablet,extended release(part/cryst) 20 meq PO BIDCM #60 tabs 03/05/25 sennosides 8.6 mg-docusate sodium 50 mg tablet (Stimulant Laxative Plus) 2 tab PO BID #60 tabs 03/05/25
--- NOTE | 2025-03-05 13:48 | PN.HOSP_ITS ---
Reason for Visit Chief Complaint: Shortness of breath Subjective Subjective Patient has a plan is for patient to be discharged to dependent his home oxygen being set up and approved by the [place] Objective Data Objective Data Vital Signs: Vital Signs Temp Pulse Resp BP Pulse Ox O2 Del Method O2 Flow Rate 98.1 F 112 H 18 124/83 H 95 Nasal Cannula 2 03/05/25 09:58 03/05/25 10:01 03/05/25 09:58 03/05/25 10:01 03/05/25 09:58 03/05/25 09:58 03/05/25 09:58 Oxygen Flow Rate (L/min) 2 Oxygen Delivery Method Nasal Cannula Weight: 63.8 kg Body Mass Index (BMI) 20.2 Intake & Output: Intake and Output for Last 24 Hours 03/03/25 03/04/25 03/05/25 23:59 23:59 23:59 Intake Total 675 / 675 400 / 400 200 / 200 Output Total 2500 / 3000 3630 / 3630 200 / 200 Balance -1825 / -2325 -3230 / -3230 0 / 0 Medical Nutrition Assessment Dietitian: Malnutrition Criteria Met Start: 03/02/25 08:20 Freq: Status: Active Protocol: Document 03/02/25 16:19 RMA (Rec: 03/02/25 16:19 RMA [id number]) Nutrition Malnutrition Evidence of Yes Malnutrition Exists Malnutrition (severe Chronic ): Evidenced By Suboptimal Energy Intake (Severe),Weight Loss (Severe), Physical Changes (Severe) Clinical Problem Chronic Disease or Condition Related Malnutrition Etiology Severe protein-calorie malnutrition in the context of chronic disease related to inadequate energy/oral intake and increased energy expenditure Signs/Symptoms as evidenced by ~15% unintentional body weight loss x 2 months; PO meeting less than 50% estimated nutrition needs x past 1 month; BMI 20.2; muscle wasting/fat depletion in the clavicle, face, arms and legs Status Active Problem Recommendation Dietitian Will liberalize diet to Regular. Recommendations/ Will add magic cup with lunch. Changes Will add 240mL ensure plus HP w/ breakfast and dinner tray. Additional ONS as needed. Lab / Micro Data 03/05/25 04:55 03/05/25 04:55 Labs: Laboratory Results - last 24 hr 03/05/25 04:55: WBC 11.5 H, RBC 3.63 L, Hgb 9.8 L, Hct 30.8 L, MCV 84.8, MCH 27.0, MCHC 31.8 L, RDW Std Deviation 49.0 H, RDW Coeff of Hai 15.7 H, Plt Count 464 H, MPV 9.6, Neut % (Auto) Not Reportable, Absolute Neuts (auto) 9.8 H, Absolute Lymphs (auto) 1.50, Total Counted 100, Neutrophils % (Manual) 83 H, Band Neutrophils % 2, Lymphocytes % (Manual) 13 L, Monocytes % (Manual) 2, Platelet Estimate SLT INC, RBC Morphology NORM C+C, Sodium 133, Potassium 3.2 L, Chloride 90 L, Carbon Dioxide 29.7, Anion Gap 13, BUN 17, Creatinine 0.81, Estim Creat Clear Calc 77.67, Est GFR (MDRD) Non-Af 95, BUN/Creatinine Ratio 20.3 H, Glucose 82, Calcium 8.9 Micro: Microbiology 03/01/25 05:57 Blood Culture (Wb) - Right Wrist Blood Culture - Preliminary No growth in 48 hours. 03/01/25 05:40 Blood Culture (Wb) - Right Wrist Blood Culture - Preliminary No growth in 48 hours. 03/01/25 21:02 Mucosa - Nasopharyngeal Respiratory Panel (PCR) - Final 03/01/25 21:48 Urine, Clean Catch Streptococcus pneumoniae Antigen (M - Final 03/01/25 21:48 Urine, Clean Catch Legionella Antigen - Final Rhythm Strip Rhythm Strip: Sinus Tach Rate: 109 Ectopy: PVC(s) and - (short run of SVT) Social Homelessness:: Sheltered Physical Exam Narrative GENERAL: cooperative but frail looking HEENT: Atraumatic; normocephalic EYES; Anicteric, Normal Conjunctiva NECK; supple, normal thyroid, RESPIRATORY: Diminished to auscultation CARDIOVASCULAR: Regular S1 S2, GI: soft, normoactive bowel sounds, : No Renal angle tenderness; EXTREMITIES: No edema, no clubbing, MUSCULOSKELETAL: no muscle wasting NEURO: Awake; no lateralizing signs. SKIN: No Rash PSYCH; Flat affect Assessment & Plan Assessment/Plan (1) Obstructive pneumonia: (2) Pleural effusion: (3) Metastatic cancer to lung: PLAN: Plan Patient is a 69-year-old gentleman with history of stage IV metastatic lung CA who presented with shortness of breath 1. Acute hypoxia ? CT demonstrated mild increase in the size of the left upper lobe/left hilar mass. Increased left pleural effusion. Increased left basilar atelectasis/consolidation. Increased cavitation in the left lower lobe. Unchanged mediastinal and hilar lymphadenopathy. Mild increase in the size and number of multiple pulmonary nodules with the largest measuring 16 mm. Placed on supplemental oxygen with treatment of the underlying clinical etiology ? 03/04/2025; patient remains on supplemental oxygen plan is for patient to be assessed for home oxygen prior to being discharged ? 03/05/2025Patient has a plan is for patient to be discharged to dependent his home oxygen being set up and approved by the [place] 2. Postobstructive pneumonia ?Patient managed with Unasyn. ? 03/04/2025; patient WBC count remains elevated 3. Acute congestive heart failure with decreased ejection fraction ? 2D echo obtained demonstrated moderate global left ventricular systolic dysfunction with EF of 35%. Patient was placed on diuretic therapy ? 4. Metastatic lung CA ? Patient has apparently failed immunotherapy. Care is at the [facility] patient is requesting to be transferred to the [place] did explain to patient the best option would be for patient to be discharged after being assessed for home oxygen and then he can follow-up 5. 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 Severe protein-calorie malnutrition in the context of chronic disease related to inadequate energy/oral ntake and increased energy expenditure ? Patient was seen in consultation by dietary recommendations reviewed 7. DVT prophylaxis ? Patient started on Lovenox CODE STATUS DNR CCA no intubation ? Consult was also placed to the palliative care team to discuss goals of care next 03/04/2025 patient seen much more cooperative compared to previously. Patient is scheduled to have a meeting with hospice service this afternoon. Decision regarding discharge made after the meeting ? 03/05/2025; patient declined hospice decision was made to discharge patient home with plans for patient to follow-up with the palliative care team at the [facility] Time spent in the patient's overall evaluation,decision-making process, review of diagnostic data, adjustment of management, discussion with other providers, nursing nursing and ancillary staff involved in patient's care documentation, 36 Minutes Charges/Coding Visit Charges Inpatient E&M: 24912 [facility] Hosp L2
--- NOTE | 2025-03-05 13:56 | CASEMGMT ---
Social Work VM left with DAAX Valentin at [facility]. [facility]A updated that pt declined hospice servcies at this time and will continue with Palliative Medicine through the [facility]. [facility] also updated [facility] that pt feels he will need a walker and a wheelchair, but at this time but is ambulating without assistive devices. [facility]. KRIS Lozano
[2025-03-05] MEDS: Potassium Chloride Oral Tablet 20 MEQ PO (16:57)
--- NOTE | 2025-03-05 19:57 | PCM.HOSP.N ---
Hospitalist Note Notified by [facility] as of yet, requiring prolonged stay.
[2025-03-05] MEDS: 0.9% Saline Lock 10 ML Syringe IV (21:54)
[2025-03-06] VITALS (21 sets, daily range): BP systolic 89–120; BP diastolic 22–89; PULSE 104–169; RESP 18–27; TEMP 36.1–37.2; O2SAT 93–99
[2025-03-06 05:54] LABS: Hematocrit 31.7 % (40-54); Hemoglobin 10.2 g/dL (13.0-16.5); Mean Corp Hgb Conc 32.2 g/dL (32-36); Mean Corpuscular Volume 83.9 fL (80-94); Mean Platelet Vol. 9.3 fl (6.2-12.0); POSITIVE COUNT YES; POSITIVE MORPHOLOGY YES; Platelet Count 449 K/mm3 (150-450); RBC Distribution Width CV 15.6 % (11.6-14.6); RBC Distribution Width SD 47.2 fl (35.1-43.9); Red Blood Count 3.78 M/mm3 (4.6-6.2); White Blood Count 13.1 K/mm3 (4.4-11.0)
[2025-03-06 05:56] LABS: Differential Indicated MANUAL DIFF
--- NOTE | 2025-03-06 06:01 | EKG12_ITS ---
Test Reason : TACHYCARDIA Blood Pressure : */* mmHG Vent. Rate : 160 BPM Atrial Rate : * BPM P-R Int : * ms QRS Dur : 78 ms QT Int : 306 ms P-R-T Axes : * 66 82 degrees QTcB Int : 499 ms Critical Test Result: High HR Atrial fibrillation with rapid ventricular response Nonspecific ST and T wave abnormality Abnormal ECG When compared with ECG of 01-Mar-2025 01:38, Atrial fibrillation has replaced Sinus rhythm Confirmed by Delmar Lofton ([id number]), greeting card editor KENA ALICEA ([id number]) on 03/08/2025 10:12:58 AM Referred By: KEV Confirmed By: Delmar Lofton
--- NOTE | 2025-03-06 06:11 | PCM.HOSP.N ---
Hospitalist Note Patient with onset of tachycardia, EKG with ? PAF but uncertain given rate, will administer cardizem 10 mg IV x 1.
[2025-03-06 06:15] LABS: Anion Gap 14 (5-15); BUN 18 mg/dL (4-19); BUN/Creat Ratio 23.7 RATIO (10-20); Calcium,Total 9.0 mg/dL (7.6-11.0); Carbon Dioxide 26.8 mmol/L (21.0-32.0); Chloride 89 mmol/L (98-108); Estimated Creatinine Clearance 78.64 ml/min (50-250); Glucose 112 mg/dL (70-99); Potassium 3.8 mmol/L (3.3-5.1)
[2025-03-06] MEDS: 0.9% Saline Lock 10 ML Syringe IV ×3 (06:28→23:10)
[2025-03-06] MEDS: Ipratropium 0.5 MG/2.5 ML SOLUTION INHALATION ×3 (07:25→22:43)
[2025-03-06 07:30] LABS: Neutrophil-Segmented 80 % (47-70); Total Cells Counted 100 (MANUAL DIFF)
[2025-03-06 07:33] LABS: Polychromasia RARE
--- NOTE | 2025-03-06 07:39 | PN.HOSP_ITS ---
Reason for Visit Chief Complaint: Shortness of breath Subjective Subjective Patient seen his oxygen was not delivered the day prior. Per patient he is having a panic/anxiety attack this morning. His heart rate did jump up to 170 he did receive Cardizem bolus and his metoprolol given earlier. Also did add lorazepam as needed Objective Data Objective Data Vital Signs: Vital Signs Temp Pulse Resp BP Pulse Ox O2 Del Method O2 Flow Rate 97.0 F L 169 H 22 H 119/85 H 93 Nasal Cannula 2 03/06/25 06:15 03/06/25 07:25 03/06/25 07:25 03/06/25 06:15 03/06/25 06:52 03/06/25 06:52 03/06/25 06:52 Oxygen Flow Rate (L/min) 2 Oxygen Delivery Method Nasal Cannula Weight: 63.8 kg Body Mass Index (BMI) 20.2 Intake & Output: Intake and Output for Last 24 Hours 03/04/25 03/05/25 03/06/25 23:59 23:59 23:59 Intake Total 400 / 400 680 / 680 Output Total 3630 / 3630 2300 / 2650 750 / 750 Balance -3230 / -3230 -1620 / -1970 -750 / -750 Medical Nutrition Assessment Dietitian: Malnutrition Criteria Met Start: 03/02/25 08:20 Freq: Status: Active Protocol: Document 03/02/25 16:19 RMA (Rec: 03/02/25 16:19 RMA [id number]) Nutrition Malnutrition Evidence of Yes Malnutrition Exists Malnutrition (severe Chronic ): Evidenced By Suboptimal Energy Intake (Severe),Weight Loss (Severe), Physical Changes (Severe) Clinical Problem Chronic Disease or Condition Related Malnutrition Etiology Severe protein-calorie malnutrition in the context of chronic disease related to inadequate energy/oral intake and increased energy expenditure Signs/Symptoms as evidenced by ~15% unintentional body weight loss x 2 months; PO meeting less than 50% estimated nutrition needs x past 1 month; BMI 20.2; muscle wasting/fat depletion in the clavicle, face, arms and legs Status Active Problem Recommendation Dietitian Will liberalize diet to Regular. Recommendations/ Will add magic cup with lunch. Changes Will add 240mL ensure plus HP w/ breakfast and dinner tray. Additional ONS as needed. Lab / Micro Data 03/06/25 05:32 03/06/25 05:32 Labs: Laboratory Results - last 24 hr 03/06/25 05:32: WBC 13.1 H, RBC 3.78 L, Hgb 10.2 L, Hct 31.7 L, MCV 83.9, MCH 27.0, MCHC 32.2, RDW Std Deviation 47.2 H, RDW Coeff of Hai 15.6 H, Plt Count 449, MPV 9.3, Neut % (Auto) Not Reportable, Absolute Neuts (auto) 10.5 H, Absolute Lymphs (auto) 1.31, Total Counted 100, Neutrophils % (Manual) 80 H, L ymphocytes % (Manual) 10 L, Monocytes % (Manual) 8, Metamyelocytes % 1, M yelocytes % 1 H, Platelet Estimate ADEQUATE, Polychromasia RARE, Sodium 130 L, Potassium 3.8, Chloride 89 L, Carbon Dioxide 26.8, Anion Gap 14, BUN 18, Creatinine 0.74, Estim Creat Clear Calc 78.64, Est GFR (MDRD) Non-Af 98, B UN/Creatinine Ratio 23.7 H, Glucose 112 H, Calcium 9.0 Micro: Microbiology 03/01/25 05:57 Blood Culture (Wb) - Right Wrist Blood Culture - Preliminary No growth in 48 hours. 03/01/25 05:40 Blood Culture (Wb) - Right Wrist Blood Culture - Preliminary No growth in 48 hours. 03/01/25 21:02 Mucosa - Nasopharyngeal Respiratory Panel (PCR) - Final 03/01/25 21:48 Urine, Clean Catch Streptococcus pneumoniae Antigen (M - Final 03/01/25 21:48 Urine, Clean Catch Legionella Antigen - Final Rhythm Strip Rhythm Strip: Sinus Tach Rate: 109 Ectopy: PVC(s) and - (short run of SVT) Social Homelessness:: Sheltered Physical Exam Narrative GENERAL: cooperative but frail looking HEENT: Atraumatic; normocephalic EYES; Anicteric, Normal Conjunctiva NECK; supple, normal thyroid, RESPIRATORY: Diminished to auscultation CARDIOVASCULAR: Irregular S1-S2 tachycardic GI: soft, normoactive bowel sounds, abdominal hernia : No Renal angle tenderness; EXTREMITIES: No edema, no clubbing, MUSCULOSKELETAL: no muscle wasting NEURO: Awake; no lateralizing signs. SKIN: No Rash PSYCH; Flat affect Assessment & Plan Assessment/Plan (1) Obstructive pneumonia: (2) Pleural effusion: (3) Metastatic cancer to lung: PLAN: Plan Patient is a 69-year-old gentleman with history of stage IV metastatic lung CA who presented with shortness of breath 1. Acute hypoxia ? CT demonstrated mild increase in the size of the left upper lobe/left hilar mass. Increased left pleural effusion. Increased left basilar atelectasis/consolidation. Increased cavitation in the left lower lobe. Unchanged mediastinal and hilar lymphadenopathy. Mild increase in the size and number of multiple pulmonary nodules with the largest measuring 16 mm. Placed on supplemental oxygen with treatment of the underlying clinical etiology ? 03/04/2025; patient remains on supplemental oxygen plan is for patient to be assessed for home oxygen prior to being discharged ? 03/05/2025Patient has a plan is for patient to be discharged to dependent his home oxygen being set up and approved by the [place] 2. Postobstructive pneumonia ?Patient managed with Unasyn. ? 03/04/2025; patient WBC count remains elevated 3. Acute congestive heart failure with decreased ejection fraction ? 2D echo obtained demonstrated moderate global left ventricular systolic dysfunction with EF of 35%. Patient was placed on diuretic therapy 4. Tachycardia?A-fib flutter with rapid ventricular response ? EKG reviewed and demonstrates presence of A-fib flutter? New diagnosis. Patient did receive Cardizem. Also metoprolol continued. Patient started on systemic anticoagulation with apixaban 2D echo from 03/01/2025 did show moderate global left ventricular systolic dysfunction. The left ventricular ejection fraction is 35 %. Stage 1 diastolic dysfunction.Mild (1+) tricuspid valve insufficiency. Plan is to continue to monitor on telemetry and if patient does not respond to initial management patient be started on a Cardizem drip 5. Metastatic lung CA ? Patient has apparently failed immunotherapy. Care is at the [facility] patient is requesting to be transferred to the [place] did explain to patient the best option would be for patient to be discharged after being assessed for home oxygen and then he can follow-up 7. Hyponatremia ? 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 Severe protein-calorie malnutrition in the context of chronic disease related to inadequate energy/oral ntake and increased energy expenditure ? Patient was seen in consultation by dietary recommendations reviewed 7. DVT prophylaxis ? Patient started on Lovenox CODE STATUS DNR CCA no intubation ? Consult was also placed to the palliative care team to discuss goals of care next 03/04/2025 patient seen much more cooperative compared to previously. Patient is scheduled to have a meeting with hospice service this afternoon. Decision regarding discharge made after the meeting ? 03/05/2025; patient declined hospice decision was made to discharge patient home with plans for patient to follow-up with the palliative care team at the [facility] Time spent in the patient's overall evaluation,decision-making process, review of diagnostic data, adjustment of management, discussion with other providers, nursing nursing and ancillary staff involved in patient's care documentation, 52 Minutes Charges/Coding Visit Charges Inpatient E&M: 41149 [facility] L[facility]
[2025-03-06] MEDS: Potassium Chloride Oral Tablet 20 MEQ PO ×2 (07:54→16:46)
[2025-03-06] MEDS: Metoprolol(XL)Succ 25 MG Tablet PO ×2 (07:55→15:22)
--- NOTE | 2025-03-06 21:59 | NURSING ---
Primary RN, Josefa states pt reports wanting to go home. Requests this RN to speak with pt. This RN to patient room to address desire to leave. Pt A/O x3. Pt states he wants to leave. This RN communicated to patient that his heart medications were changed and the physician likely wants to monitor overnight. Additionally, pt O2 had reportedly previously been delivered to the wrong address, which had been a hold-up to discharge as well. Pt states he has everything [at home]. This RN educated patient that if he leaves now, it would likely have to be AMA. Pt expresses concern with leaving AMA; citing that he fears he will lose the hospital's support. This RN explained to the patient that staying or leaving has to be his decision. Spoke with patient about medication regimen for pain/inability to rest. Pt requests Oxyir. States he is amendable to staying. Josefa updated with pt's request for Oxyir and with plan.
[2025-03-06] MEDS: MELATONIN 10 MG TABLET PO (22:13)
--- NOTE | 2025-03-06 22:46 | PCM.HOSP.N ---
Hospitalist Note Patient with recurrent PAF RVR. BP 106/61, will trial low dose cardizem 10 mg x 1.
[2025-03-07] VITALS (29 sets, daily range): BP systolic 77–156; BP diastolic 58–136; PULSE 86–168; RESP 11–25; TEMP 36.3–36.8; O2SAT 91–100
[2025-03-07] MEDS: Diltiazem 125 MG in Dextrose 5%-Water (100mL Bag) 100 ML IV (02:26)
[2025-03-07] MEDS: Ipratropium 0.5 MG/2.5 ML SOLUTION INHALATION ×3 (06:43→19:14)
--- NOTE | 2025-03-07 08:00 | PCM.PN.HOSP ---
Reason for Visit Chief Complaint: Shortness of breath Subjective Subjective Patient was started on Cardizem drip during the night. Heart rate remains controlled this a.m. Plan is to DC Cardizem and start scheduled p.o. Cardizem. Patient oxygen was supposedly delivered the day prior. Patient was delivered to the wrong address Objective Data Objective Data Vital Signs: Vital Signs Temp Pulse Resp BP Pulse Ox O2 Del Method O2 Flow Rate 97.4 F L 89 17 99/85 H 99 Nasal Cannula 2 03/07/25 07:00 03/07/25 07:00 03/07/25 07:00 03/07/25 07:00 03/07/25 07:00 03/07/25 07:00 03/07/25 07:00 Oxygen Flow Rate (L/min) 2 Oxygen Delivery Method Nasal Cannula Weight: 63.8 kg Body Mass Index (BMI) 20.2 Intake & Output: Intake and Output for Last 24 Hours 03/05/25 03/06/25 03/07/25 23:59 23:59 23:59 Intake Total 680 / 680 1475 / 1595 145.00 / 145.00 Output Total 2300 / 2650 2100 / 2100 350 / 350 Balance -1620 / -1970 -625 / -505 -205.00 / -205.00 Medical Nutrition Assessment Dietitian: Malnutrition Criteria Met Start: 03/02/25 08:20 Freq: Status: Active Protocol: Document 03/02/25 16:19 RMA (Rec: 03/02/25 16:19 RMA [id number]) Nutrition Malnutrition Evidence of Yes Malnutrition Exists Malnutrition (severe Chronic ): Evidenced By Suboptimal Energy Intake (Severe),Weight Loss (Severe), Physical Changes (Severe) Clinical Problem Chronic Disease or Condition Related Malnutrition Etiology Severe protein-calorie malnutrition in the context of chronic disease related to inadequate energy/oral intake and increased energy expenditure Signs/Symptoms as evidenced by ~15% unintentional body weight loss x 2 months; PO meeting less than 50% estimated nutrition needs x past 1 month; BMI 20.2; muscle wasting/fat depletion in the clavicle, face, arms and legs Status Active Problem Recommendation Dietitian Will liberalize diet to Regular. Recommendations/ Will add magic cup with lunch. Changes Will add 240mL ensure plus HP w/ breakfast and dinner tray. Additional ONS as needed. Lab / Micro Data 03/06/25 05:32 03/06/25 05:32 Micro: Microbiology 03/01/25 05:57 Blood Culture (Wb) - Right Wrist Blood Culture - Final No growth in 5 days. 03/01/25 05:40 Blood Culture (Wb) - Right Wrist Blood Culture - Final No growth in 5 days. 03/01/25 21:02 Mucosa - Nasopharyngeal Respiratory Panel (PCR) - Final 03/01/25 21:48 Urine, Clean Catch Streptococcus pneumoniae Antigen (M - Final 03/01/25 21:48 Urine, Clean Catch Legionella Antigen - Final Rhythm Strip Rhythm Strip: Sinus Tach Rate: 109 Ectopy: PVC(s) and - (short run of SVT) Social Homelessness:: Sheltered Physical Exam Narrative GENERAL: cooperative but frail looking HEENT: Atraumatic; normocephalic EYES; Anicteric, Normal Conjunctiva NECK; supple, normal thyroid, RESPIRATORY: Diminished to auscultation CARDIOVASCULAR: Irregular S1-S2 tachycardic GI: soft, normoactive bowel sounds, abdominal hernia : No Renal angle tenderness; EXTREMITIES: No edema, no clubbing, MUSCULOSKELETAL: no muscle wasting NEURO: Awake; no lateralizing signs. SKIN: No Rash PSYCH; Flat affect Assessment & Plan Assessment/Plan (1) Obstructive pneumonia: (2) Pleural effusion: (3) Metastatic cancer to lung: PLAN: Plan Patient is a 69-year-old gentleman with history of stage IV metastatic lung CA who presented with shortness of breath 1. Acute hypoxia ? CT demonstrated mild increase in the size of the left upper lobe/left hilar mass. Increased left pleural effusion. Increased left basilar atelectasis/consolidation. Increased cavitation in the left lower lobe. Unchanged mediastinal and hilar lymphadenopathy. Mild increase in the size and number of multiple pulmonary nodules with the largest measuring 16 mm. Placed on supplemental oxygen with treatment of the underlying clinical etiology ? 03/04/2025; patient remains on supplemental oxygen plan is for patient to be assessed for home oxygen prior to being discharged ? 03/05/2025Patient has a plan is for patient to be discharged to dependent his [facility] ? 03/07/2025; patient oxygen was apparently delivered to the wrong address did explain to patient is best to wait till Saturday for case management to sort this out 2. Postobstructive pneumonia ?Patient managed with Unasyn. ? 03/04/2025; patient WBC count remains elevated 3. Acute congestive heart failure with decreased ejection fraction ? 2D echo obtained demonstrated moderate global left ventricular systolic dysfunction with EF of 35%. Patient was placed on diuretic therapy 4. Tachycardia?A-fib flutter with rapid ventricular response ? EKG reviewed and demonstrates presence of A-fib flutter? New diagnosis. Patient did receive Cardizem. Also metoprolol continued. Patient started on systemic anticoagulation with apixaban 2D echo from 03/01/2025 did show moderate global left ventricular systolic dysfunction. The left ventricular ejection fraction is 35 %. Stage 1 diastolic dysfunction.Mild (1+) tricuspid valve insufficiency. Plan is to continue to monitor on telemetry and if patient does not respond to initial management patient be started on a Cardizem drip ? 03/07/2025; patient was started on Cardizem during the night. Plan is to wean off and start patient on p.o. Cardizem 5. Metastatic lung CA ? Patient has apparently failed immunotherapy. Care is at the [facility] patient is requesting to be transferred to the [place] did explain to patient the best option would be for patient to be discharged after being assessed for home oxygen and then he can follow-up 7. Hyponatremia ? 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 Severe protein-calorie malnutrition in the context of chronic disease related to inadequate energy/oral ntake and increased energy expenditure ? Patient was seen in consultation by dietary recommendations reviewed 7. DVT prophylaxis ? Patient started on Lovenox CODE STATUS DNR CCA no intubation ? Consult was also placed to the palliative care team to discuss goals of care next 03/04/2025 patient seen much more cooperative compared to previously. Patient is scheduled to have a meeting with hospice service this afternoon. Decision regarding discharge made after the meeting ? 03/05/2025; patient declined hospice decision was made to discharge patient home with plans for patient to follow-up with the palliative care team at the [facility] Time spent in the patient's overall evaluation,decision-making process, review of diagnostic data, adjustment of management, discussion with other providers, nursing nursing and ancillary staff involved in patient's care documentation 38 Minutes Charges/Coding Visit Charges Inpatient E&M: 07621 [facility] Hosp L2
[2025-03-07] MEDS: Metoprolol(XL)Succ 50 MG Tablet PO (08:49)
[2025-03-07] MEDS: Potassium Chloride Oral Tablet 20 MEQ PO ×2 (08:54→16:25)
[2025-03-07] MEDS: APIXABAN 5 MG TABLET PO ×2 (10:48→21:20)
[2025-03-07] MEDS: 0.9% Saline Lock 10 ML Syringe IV (11:32)
[2025-03-08] VITALS (8 sets, daily range): BP systolic 94–114; BP diastolic 70–91; PULSE 88–99; RESP 18–22; TEMP 35.9–36.4; O2SAT 93–97
[2025-03-08 05:49] LABS: Hematocrit 30.7 % (40-54); Hemoglobin 9.7 g/dL (13.0-16.5); Mean Corp Hgb Conc 31.6 g/dL (32-36); Mean Corpuscular Volume 84.1 fL (80-94); Mean Platelet Vol. 9.8 fl (6.2-12.0); POSITIVE COUNT YES; POSITIVE MORPHOLOGY YES; Platelet Count 455 K/mm3 (150-450); RBC Distribution Width CV 15.8 % (11.6-14.6); RBC Distribution Width SD 48.0 fl (35.1-43.9); Red Blood Count 3.65 M/mm3 (4.6-6.2); White Blood Count 12.6 K/mm3 (4.4-11.0)
[2025-03-08 05:56] LABS: Differential Indicated MANUAL DIFF
[2025-03-08 06:10] LABS: Anion Gap 14 (5-15); BUN 25 mg/dL (4-19); BUN/Creat Ratio 27.6 RATIO (10-20); Calcium,Total 8.9 mg/dL (7.6-11.0); Carbon Dioxide 26.2 mmol/L (21.0-32.0); Chloride 91 mmol/L (98-108); Estimated Creatinine Clearance 68.38 ml/min (50-250); Glucose 102 mg/dL (70-99); Magnesium 1.8 mg/dL (1.5-2.2); Potassium 4.2 mmol/L (3.3-5.1)
[2025-03-08] MEDS: Ipratropium 0.5 MG/2.5 ML SOLUTION INHALATION ×3 (06:40→19:43)
[2025-03-08 07:32] LABS: Neutrophil-Band 1 % (0-5); Neutrophil-Segmented 80 % (47-70); Total Cells Counted 100 (MANUAL DIFF)
[2025-03-08 07:33] LABS: Polychromasia 1+
--- NOTE | 2025-03-08 09:20 | CASEMGMT ---
Addendum entered by Gina Giraldo 03/08/25 14:03: No updated received by [facility]. TOMAS LEAL called [facility] to check on status of oxygen delivery. Per Reina, oxygen is to be delivered by 4pm. TOMAS LEAL update that family will be at the correct address and to have equipment delivered to the home and family will bring portability to hospital at discharge. Reina states she will update dispatch. TOMAS LEAL updated patient, PCU charge nurse, and hospitalist. Original Note: TOMAS LEAL updated by staff that home oxygen was not delivered as [facility] had the wrong address. TOMAS LEAL in to patient's room, patient confirmed [address] of [place] [place] [facility] [address] TOMAS LEAL called [facility] and confirmed address. TOMAS LEAL notified that rental car ferry driver with contact this RN CM with estimated scheduled time of delivery. CM will continue to follow this patient and plan for safe discharge.
[2025-03-08] MEDS: APIXABAN 5 MG TABLET PO (09:33)
--- NOTE | 2025-03-08 09:33 | PN.HOSP_ITS ---
Reason for Visit Chief Complaint: Shortness of breath Subjective Subjective Feeling well. Anxious to go home. Objective Data Objective Data Vital Signs: Vital Signs Temp Pulse Resp BP Pulse Ox O2 Del Method O2 Flow Rate 36.4 C L 91 20 H 104/76 93 Nasal Cannula 2 03/08/25 03:15 03/08/25 06:40 03/08/25 06:40 03/08/25 03:15 03/08/25 06:40 03/08/25 08:23 03/08/25 08:23 Oxygen Flow Rate (L/min) 2 Oxygen Delivery Method Nasal Cannula Weight: 63.8 kg Body Mass Index (BMI) 20.2 Intake & Output: Intake and Output for Last 24 Hours 03/06/25 03/07/25 03/08/25 23:59 23:59 23:59 Intake Total 1475 / 1595 1767.67 / 1987.67 320 / 320 Output Total 2100 / 2100 1550 / 1750 350 / 350 Balance -625 / -505 217.67 / 237.67 -30 / -30 Medical Nutrition Assessment Dietitian: Malnutrition Criteria Met Start: 03/02/25 08:20 Freq: Status: Active Protocol: Document 03/02/25 16:19 RMA (Rec: 03/02/25 16:19 RMA [id number]) Nutrition Malnutrition Evidence of Yes Malnutrition Exists Malnutrition (severe Chronic ): Evidenced By Suboptimal Energy Intake (Severe),Weight Loss (Severe), Physical Changes (Severe) Clinical Problem Chronic Disease or Condition Related Malnutrition Etiology Severe protein-calorie malnutrition in the context of chronic disease related to inadequate energy/oral intake and increased energy expenditure Signs/Symptoms as evidenced by ~15% unintentional body weight loss x 2 months; PO meeting less than 50% estimated nutrition needs x past 1 month; BMI 20.2; muscle wasting/fat depletion in the clavicle, face, arms and legs Status Active Problem Recommendation Dietitian Will liberalize diet to Regular. Recommendations/ Will add magic cup with lunch. Changes Will add 240mL ensure plus HP w/ breakfast and dinner tray. Additional ONS as needed. Lab / Micro Data 03/08/25 04:35 03/08/25 04:35 Labs: Laboratory Results - last 24 hr 03/08/25 04:35: WBC 12.6 H, RBC 3.65 L, Hgb 9.7 L, Hct 30.7 L, MCV 84.1, MCH 26.6 L, MCHC 31.6 L, RDW Std Deviation 48.0 H, RDW Coeff of Hai 15.8 H, Plt Count 455 H, MPV 9.8, Neut % (Auto) Not Reportable, Absolute Neuts (auto) 10.2 H , Absolute Lymphs (auto) 0.76 L, Total Counted 100, Neutrophils % (Manual) 80 H, Band Neutrophils % 1, Lymphocytes % (Manual) 6 L, Monocytes % (Manual) 8, M etamyelocytes % 4 H, Myelocytes % 1 H, Platelet Estimate SLT INC, Polychromasia 1+, Sodium 132 L, Potassium 4.2, Chloride 91 L, Carbon Dioxide 26.2, Anion Gap 14, BUN 25 H, Creatinine 0.92, Estim Creat Clear Calc 68.38, Est GFR (MDRD) Non- Af 90, BUN/Creatinine Ratio 27.6 H, Glucose 102 H, Calcium 8.9, Phosphorus 3.5, Magnesium 1.8 Micro: Microbiology 03/01/25 05:57 Blood Culture (Wb) - Right Wrist Blood Culture - Final No growth in 5 days. 03/01/25 05:40 Blood Culture (Wb) - Right Wrist Blood Culture - Final No growth in 5 days. 03/01/25 21:02 Mucosa - Nasopharyngeal Respiratory Panel (PCR) - Final 03/01/25 21:48 Urine, Clean Catch Streptococcus pneumoniae Antigen (M - Final 03/01/25 21:48 Urine, Clean Catch Legionella Antigen - Final Rhythm Strip Rhythm Strip: Sinus Tach Rate: 109 Ectopy: PVC(s) and - (short run of SVT) Social Homelessness:: Sheltered Physical Exam Const alert and no apparent distress Constitutional Narrative: lying in bed. thin. afebrile. Resp normal respiratory effort, no retractions, no use of accessory muscles and clear to auscultation bilaterally Cardio regular rate, regular rhythm, S1 normal heart sound and S2 normal heart sound GI normal to inspection, nondistended, normoactive bowel sounds, soft to palpation, non-tender and non-distended Extremity normal to inspection and full ROM Psych affect normal Assessment & Plan Assessment/Plan (1) Obstructive pneumonia: (2) Pleural effusion: (3) Metastatic cancer to lung: PLAN: Plan Acute hypoxia ? CT demonstrated mild increase in the size of the left upper lobe/left hilar mass. Increased left pleural effusion. Increased left basilar atelectasis/consolidation. Increased cavitation in the left lower lobe. Unchanged mediastinal and hilar lymphadenopathy. Mild increase in the size and number of multiple pulmonary nodules with the largest measuring 16 mm. Placed on supplemental oxygen with treatment of the underlying clinical etiology ? 03/04/2025; patient remains on supplemental oxygen plan is for patient to be assessed for home oxygen prior to being discharged ? 03/05/2025Patient has a plan is for patient to be discharged to dependent his home oxygen being set up and approved by the [place] ? 03/07/2025; patient oxygen was apparently delivered to the wrong address did explain to patient is best to wait till Saturday for case management to sort this out -03/08: oxygen to be sent to his significant other's home, where he'll be staying. Postobstructive pneumonia ?on amp/SB since the , changed to amox/CA. Completed 7-day course of abx. Acute congestive heart failure with decreased ejection fraction ? 2D echo obtained demonstrated moderate global left ventricular systolic dysfunction with EF of 35%. On furosemide. tachycardia?A-fib flutter with rapid ventricular response ? EKG reviewed and demonstrates presence of A-fib flutter? New diagnosis. Patient did receive Cardizem. Also metoprolol continued. Patient started on systemic anticoagulation with apixaban 2D echo from 03/01/2025 did show moderate global left ventricular systolic dysfunction. The left ventricular ejection fraction is 35 %. Stage 1 diastolic dysfunction.Mild (1+) tricuspid valve insufficiency. Plan is to continue to monitor on telemetry and if patient does not respond to initial management patient be started on a Cardizem drip ? 03/07/2025; patient was started on Cardizem during the night. Plan is to wean off and start patient on p.o. Cardizem Metastatic lung CA ? Patient has apparently failed immunotherapy. Care is at the [facility] patient is requesting to be transferred to the [place] did explain to patient the best option would be for patient to be discharged after being assessed for home oxygen and then he can follow-up Hyponatremia ? 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 Patient was seen in consultation by dietary recommendations reviewed DVT prophylaxis? Patient started on Lovenox CODE STATUS DNR CCA no intubation ? Consult was also placed to the palliative care team to discuss goals of care next 03/04/2025 patient seen much more cooperative compared to previously. Patient is scheduled to have a meeting with hospice service this afternoon. Decision regarding discharge made after the meeting ? 03/05/2025; patient declined hospice decision was made to discharge patient home with plans for patient to follow-up with the palliative care team at the [facility] 03/08: pt to follow up with palliative care as oupt.
[2025-03-08] MEDS: Potassium Chloride Oral Tablet 20 MEQ PO (09:40)
[2025-03-08] MEDS: Metoprolol(XL)Succ 50 MG Tablet PO (09:40)
--- NOTE | 2025-03-08 10:40 | PN.PALL_ITS ---
Subjective Subjective 03/08/25: Prior to meeting with the patient at bedside I reviewed documentation including the weekend. Also reviewed labs and EKGs. I then met the evening at bedside. He is in good spirits. We talked about the mixup with his oxygen in which it got delivered to the wrong address on Saturday thus seeking to stay in the hospital over the weekend. He stated everything happens for a reason. He had an episode of A-flutter with RVR in which she received a Cardizem drip and now receiving oral Cardizem in addition to his metoprolol. He was also started on apixaban.. Addy is hoping to return home today after getting his oxygen delivered. He is hopeful to talk to his oncologist to discuss options going forward. He is planning to follow-up with the palliative care team. My time during assessment he did get a phone call from the [facility] which I did excuse myself so he may speak with them. And he had no questions. 03/05/25: Prior to meeting with the pt at bedside, I reviewed documentation from overnight. I also talked to DAXA/MEL about meeting the pt had with hospice yesterday. I then met with Addy at bedside. When I initially entered the room, he was very agitated and stated that the hopsice meeting was crap. I did ask him to explain. He stated that he is unable to continue to seek treatment while on hospice. I did explain to him that he can continue to seek eastern medicine treatments that he had discussed before but that anything that would pull from his medicare, would not be allowed. He states understanding and stated that his philosophy and that of the hospice did not gel well. I did state understanding . We then discussed what his hopes are going forward. He is hoping to find an oncologist that can continue with treatments, even if they are trials. He wants to continue with meditation, diet and activity as well as other modalities that he can assist with the possibility of healing. He is agreeing to follow up with palliative care provider Dr. Berna Jiménez, whom he is established. I will contact her today for a warm handoff. All questions answered. Pt is waiting for O2 delivery at home for discharge. 03/04/25: I did meet with Addy in his room. He was in god spirits and Deyanira was also in the room for support. Pt did report having 9/10 pain last night. I was contacted to confirm that the pt takes Oxy 10mg PO for severe pain. Addy endorsed that he feels that going home with hospice is his best option. He plans to continue adjunct modalities to his traditional medical practices. He does acknowledge some SOB this morning but states manageable He was, initially speaking in 3-4 word sentences but as he became distracted with our discussion, I noted his breathing to ease and he was able to speak in complete sentences. He plans to continue writing a memoir about his dealing with cancer diagnosis. Addy is a deep thinker and I did encourage him to continue to do the things that brings him mick. All questions answered. 03/03/25: Creatinine is daily at bedside I did review documentation and labs from overnight. I did note that he has had an improvement in his WBCs from 13.5- 11.4. Slight decrease in his hemoglobin hematocrit from 10.5-9.8 today and 32.6 yesterday to 30.3 today. Platelets continue to be elevated at 491. He is slightly hyponatremic with a sodium of 131. BUN is slightly elevated at 20 from 16 yesterday. Patient continues to receive Lasix. I then met with Emeterio finney. He was sitting up in his bed stabilizing his trunk well, away from the back of the bed. Family initially wanted to speak about alternative healing methods for his cancer. I do support his utilization of Eastern and Ayurvedic medicine to assist with his healing but I also discussed comfort measures while not receiving traditional Western medicine such as chemotherapy or radiation. I did discuss the possibility of hospice services for comfort in addition to his nontraditional healing practices. He did state that he will think about it as he thought it may be a good adjunct if he is unable to receive any further treatment from a Western medicine standpoint. He did state that he would like to receive all of his care from the [facility] as he is embedded with them. He is hopeful that he will be able to find a provider that is willing to treat his cancer. We then discussed what the typical criteria is for continued Western medicine treatment in which Addy states understanding. I then discussed that yesterday he refused PT and OT and did not want to get the bed. I explained to him that he needs to be able to get out of the bed and utilize a walker if he wants any chance in receiving continue Western medicine. Addy did state understanding and states that he will work with PT and OT and is mad at himself or refusing yesterday. He expressed frustration over the management of his pain medications. He states that at home he takes oxycodone 2.5 mg or 5 mg up to 10 mg every 4 hours depending on symptoms and pain. I did state understanding and explained that that is a typical palliative order to utilize the lowest dose possible in managing symptoms. I do recommend oxycodone 2.5 mg p.o. every 4 hours as needed for mild pain 1-3 or mild shortness of breath, oxycodone 5 mg p.o. every 4 hours as needed for moderate pain 4-6 and/or moderate shortness of breath and oxycodone 10 mg p.o. every 4 hours as needed for severe pain 7-10 and/or severe shortness of breath. An attempt to meet Addy where he is at, will continue to discuss adjunct treatments and what that would look like for him going forward from a nutritional standpoint as well as his mind and spirit. Addy plans to more aggressively implement meditation, guided imagery and relaxation and exercises. He does note that his symptoms get worse when he becomes anxious or sad having a bad day. States good understanding of how his mind has been affecting symptoms. I did recommend that he finds a good balance between his Eastern philosophy and Western medicine which he states agreement. He does state that he is not against initiating hospice for comfort and that he would like to receive those services to through the [facility] and would like to speak to them first. He does have a palliative care provider at the [facility]. I did encourage him to reach out to them sooner rather than later to get assistance with managing his symptoms. I then spoke with Dr. Loya, to update him on Addy's desire to go to the [facility]. He recommended the possibility of discharge to home and then have the patient reach out to his primary care providers for next steps at the [facility]. Lastly, I did speak to Addy about POA and the importance of establishing a POA going forward. Particularly, because he would like his fitahira?Deyanira carreno to be his decision-maker. He plans to initiate them as soon as he is discharged. Addy did take lots of notes during our conversation and asked very good questions, which were answered. Palliative care will continue to follow for support as the patient's clinical picture evolves. 03/02/25Prior to meeting with the pt at bedside, I reviewed previous documentation, labs, radiological studies and well as diagnostic studies. I then met with the pt at bedside. I introduced myself to both Addy and his fiance , Deyanira and the concept of palliative care, which they voluntarily accepted our services. I ask Addy what he knew of his diagnosis, in which he confirmed that his oncologist stated that he has completed 3 rounds of immunotherapy with no improvement in his cancer. They are not convinced that he will receive any further treatment from his oncologist. Addy continually talks about various doctors that have had great success with treatments Dr Segal and out of [place]. I did ask if he has reached out to these doctors and been accepted as a patient? He stated that he has not but states that he is going to have them contact the doctors here and they can tell them what to do. I explained to him that it typically doesn't work that way. He then talked about going to a cancer treatment center in [place]. Currently, he is not well enough for travel and I did ask him how he plans to get there. He did not have a response, at this time. I am concerned that he may be experiencing denial in his grief process. He did endorse that he spends 90% of his time in bed, while at home. I then discussed his Echocardiogram and gave he and Deyanira a overview of what it said with explanations. They both stated understanding. I explained his EF of 35% and elevated troponins x 3 of 36, 34 and 29. BNP of 2433, Along with his metastatic stage IV lung cancer without receiving any further treatments, would make him eligible for hospice. Both Addy and Deyanira stated that they don't feel they are ready for that. I did offer supportive listening and allowed them to change the subject and followed their trajectory. We did discuss the fact that he is very weak and will, most likely, not be a candidate for continued therapies unless he can gain some strength. He is open to continued PT/OT services to get stronger. He is currently waiting for a bed at the [facility] and states that he feels his symptoms are being controlled well, at this time. He is open to further conversations and Palliative care will continue to follow. All questions answered. Per hospitalist EMETERIO CHENEY, is a 69y/o male w/ hx of stage IV lung cancer not receiving any treatment because he was not responding to immunotherapy and symptomatic anemia who presented [facility] ED 03/01/2025 for shortness of breath especially in the mornings but over the past 3 days he has continued to worsen, also has mild wheezing and coughing. Also notes the past 2 weeks he has had increased swelling in his lower extremities. In the ED patient afebrile, patient with variable heart rate anywhere from 90s to 120s, blood pressure initially 106/92, respiratory rate 18 patient 98% on 3 L nasal cannula with a respiratory rate of 19. CBC with white blood cell count 14.4, hemoglobin 10.2 and platelet count 459. BMP with a sodium of 126, up from 120 in December, BUN of 11 and creatinine 0.65, Trop of 36 with 4-hour Trop of 29, and a proBNP of 2433. Lactic acid within normal limits. CTA obtained and showed mild increase in size of patient's left upper lobe/left hilar mass with increased cavitation consolidation as well as left pleural effusion, mild increase in size and number of pulmonary nodules, unchanged multifocal compression of the left pulmonary artery and branches. ED physician was concern for postobstructive pneumonia and fluid overload, patient received Rocephin and azithromycin as well as IV Lasix in the ED. [facility] and was supposed to be transferred however no beds for prolonged amount of time and [facility] okay with [facility] to our institution given lack of bed availability so hospitalist contacted for admission. Patient evaluated bedside. Patient reports he is still having shortness of breath but feels better than when he first arrived especially since he has been pain off fluid. He notes that he has been having shortness of breath and cough for a year and was diagnosed with stage IV lung cancer, usually he short of breath when he wakes up in the morning but then will improve throughout the day and some days will not feel too bad at all over the past 3 days he has not been improving throughout the day, does cough but has difficulty producing any sputum, also notes leg swelling for the past 2 weeks. He reports before his lung cancer diagnosis he had never been hospitalized and did not take any medications, denies smoking, only thing he takes at home currently is oxycodone as needed since his diagnosis. Denies any breathing treatments at home and does not wear home oxygen. He denies any chest pain, no fever at home, occasionally gets some abdominal pain but nothing significant, had been having problems with constipation but that has resolved, denies nausea. Denies problems with urination Objective Data Objective Data Vital Signs: Vital Signs Temp Pulse Resp BP Pulse Ox O2 Del Method O2 Flow Rate 97.5 F L 94 20 H 114/91 H 93 Nasal Cannula 2 03/08/25 03:15 03/08/25 09:40 03/08/25 06:40 03/08/25 09:40 03/08/25 06:40 03/08/25 08:23 03/08/25 08:23 Oxygen Flow Rate (L/min) 2 Oxygen Delivery Method Nasal Cannula Weight: 140 lb 10.479 oz Body Mass Index (BMI) 20.2 Intake & Output: Intake and Output for Last 24 Hours 03/06/25 03/07/25 03/08/25 23:59 23:59 23:59 Intake Total 1475 / 1595 1767.67 / 1987.67 320 / 320 Output Total 2100 / 2100 1550 / 1750 350 / 350 Balance -625 / -505 217.67 / 237.67 -30 / -30 Medical Nutrition Assessment Dietitian: Malnutrition Criteria Met Start: 03/02/25 08:20 Freq: Status: Active Protocol: Document 03/02/25 16:19 RMA (Rec: 03/02/25 16:19 RMA [id number]) Nutrition Malnutrition Evidence of Yes Malnutrition Exists Malnutrition (severe Chronic ): Evidenced By Suboptimal Energy Intake (Severe),Weight Loss (Severe), Physical Changes (Severe) Clinical Problem Chronic Disease or Condition Related Malnutrition Etiology Severe protein-calorie malnutrition in the context of chronic disease related to inadequate energy/oral intake and increased energy expenditure Signs/Symptoms as evidenced by ~15% unintentional body weight loss x 2 months; PO meeting less than 50% estimated nutrition needs x past 1 month; BMI 20.2; muscle wasting/fat depletion in the clavicle, face, arms and legs Status Active Problem Recommendation Dietitian Will liberalize diet to Regular. Recommendations/ Will add magic cup with lunch. Changes Will add 240mL ensure plus HP w/ breakfast and dinner tray. Additional ONS as needed. Lab / Micro Data Attestation: I reviewed the patient's lab results. Lab results narrative: WBCs are slightly elevated 26, hemoglobin and hematocrit are continue to be low at 9.7 and 30.7. Platelets are elevated at 155. Sodium is slightly low at 132, his BUN is slightly elevated at 25. Blood sugar check 102 03/08/25 04:35 03/08/25 04:35 Labs: Laboratory Results - last 24 hr 03/08/25 04:35: WBC 12.6 H, RBC 3.65 L, Hgb 9.7 L, Hct 30.7 L, MCV 84.1, MCH 26.6 L, MCHC 31.6 L, RDW Std Deviation 48.0 H, RDW Coeff of Hai 15.8 H, Plt Count 455 H, MPV 9.8, Neut % (Auto) Not Reportable, Absolute Neuts (auto) 10.2 H , Absolute Lymphs (auto) 0.76 L, Total Counted 100, Neutrophils % (Manual) 80 H, Band Neutrophils % 1, Lymphocytes % (Manual) 6 L, Monocytes % (Manual) 8, M etamyelocytes % 4 H, Myelocytes % 1 H, Platelet Estimate SLT INC, Polychromasia 1+, Sodium 132 L, Potassium 4.2, Chloride 91 L, Carbon Dioxide 26.2, Anion Gap 14, BUN 25 H, Creatinine 0.92, Estim Creat Clear Calc 68.38, Est GFR (MDRD) Non- Af 90, BUN/Creatinine Ratio 27.6 H, Glucose 102 H, Calcium 8.9, Phosphorus 3.5, Magnesium 1.8 Micro: Microbiology 03/01/25 05:57 Blood Culture (Wb) - Right Wrist Blood Culture - Final No growth in 5 days. 03/01/25 05:40 Blood Culture (Wb) - Right Wrist Blood Culture - Final No growth in 5 days. 03/01/25 21:02 Mucosa - Nasopharyngeal Respiratory Panel (PCR) - Final 03/01/25 21:48 Urine, Clean Catch Streptococcus pneumoniae Antigen (M - Final 03/01/25 21:48 Urine, Clean Catch Legionella Antigen - Final Rhythm Strip Rhythm Strip: Sinus Tach Rate: 109 Ectopy: PVC(s) and - (short run of SVT) Social Homelessness:: Sheltered Physical Exam Const oriented x3 Constitutional Narrative: Patient is gaunt in appearance with sunken features. General Appearance: cooperative Orientation / Consciousness: awake, oriented to person, oriented to place and oriented to time Exam Limitations: no limitations Nutritional Appearance: cachectic HEENT normocephalic Neck full ROM Chest Chest: symmetrical chest wall rise Resp Effort and Inspection: tachypneic Auscultation: crackles, wheezes and diminished lung sounds Cardio Rate: tachycardic GI GI Narrative: Significant bulging related to hernia right lower quadrant no CVA tenderness Back/Spine no CVA tenderness Extremity normal to inspection Skin no rashes or lesions noted Neuro oriented x3 and CN's II-XII intact bilaterally Sensorium / Orientation: awake, alert, oriented to person, oriented to place and oriented to time Psych mental status grossly normal Charges/Coding Palliative Care Palliative Care: [id number] Follow up 35-49 min Consulation Summary Current admission Current Code Status: DNRCC-A no intubation Associated Diagnosis: Metastatic lung cancer Consult Data Date of Consult: 03/02/25 Location of consult: PCU Reason for referral: Goals of care Referral source: Dr. Loera Palliative care diagnosis (Summary list): Stage IV metastatic lung cancer, EF of 35% Palliative care services/treatment (Accepted, as consult): accepted Palliative Assessment Advanced Directive - Current Admission Advance Directive: Advance Directive ON ADMISSION - REFERENCE 3 Do you have a Healthcare No 03/01/25 19:19 Living Will? Do you have a Healthcare Power No 03/01/25 19:19 of Resume Specialist? Do You Want Additional Declined 03/01/25 19:19 Information on Advanced Directives or Healthcare Proxy/DPOA comments: Fianc? Deyanira Symptoms Dyspnea symptoms: Severe Constipation symptoms: Mild Nausea symptoms: None Vomiting symptoms: None Depression symptoms: None Anorexia symptoms: Moderate Cough symptoms: Moderate Insomnia symptoms: None Diarrhea symptoms: None Fatigue symptoms: Mild Weakness symptoms: Moderate Confusion symptoms: None Impression & Recommendations Recommentation Palliative recommendations: Patient plans to return home today and follow-up with outpatient palliative care [facility]. Encouter Achieved as a result of this Palliative Care Encounter: [[id number], [id number], [id number] ] minutes were spent in total for this visit which consisted, primarily of counseling and education dealing with the complex and emotionally intense issues of symptom management and palliative care in the setting of serious and potentially life-threatening illness. Review of documentation, labs and radiological studies. ?Patient/family had the opportunity to ask questions Plan (1) Metastatic cancer to lung: PLAN: Patient awaiting home O2 delivery Medical management per primary team (2) Pleural effusion: PLAN: Medical management per primary team (3) Acute hypoxic respiratory failure: PLAN: Medical management per primary team (4) Palliative care encounter: PLAN: Patient is adamant that he wants to continue aggressive medical management. [facility] Constitutional Constitutional: Reports systems reviewed and no addt'l complaints, except as documented Eyes Eyes: Reports systems reviewed and no addt'l complaints, except as documented ENT HEENT: Reports systems reviewed and no addt'l complaints, except as documented Cardiovascular Cardiovascular: Reports flutter in chest and other Details: We reported this over the weekend. Currently states it resolved. Respiratory/Chest Respiratory/Chest: Reports cough and dyspnea Gastrointestinal Gastrointestinal: Reports systems reviewed and no addt'l complaints, except as documented Genitourinary Genitourinary: Reports systems reviewed and no addt'l complaints, except as documented Musculoskeletal Musculoskeletal: Reports systems reviewed and no addt'l complaints, except as documented Integumentary Integumentary: Reports systems reviewed and no addt'l complaints, except as documented Neurologic Neurologic: Reports systems reviewed and no addt'l complaints, except as documented Psychiatric Psychiatric: Reports systems reviewed and no addt'l complaints, except as documented Endocrine Endocrinology: Reports systems reviewed and no addt'l complaints, except as documented Hematologic/Lymphatic Hematologic/Lymphatic: Reports systems reviewed and no addt'l complaints, except as documented Allergic/Immunologic Allergic/Immunologic: Reports systems reviewed and no addt'l complaints, except as documented
--- NOTE | 2025-03-08 15:14 | PCM.DC.SUM ---
Providers Date of Admission: 03/01/25 Primary Care Physician: [facility] Consultations 03/02/25 13:45 Consult: Inpatient Palliative Care Routine Consulting Provider: Leeann Miller Reason for Consult: Follows w/palliative at the [facility] EMERGENT Consult: No Notified: Yes Date Notified: 03/02/25 Time Notified: 13:45 Method of Notification: Text Method of Consult:: In-Person 03/03/25 16:11 Consult: Hospice / Outpatient Palliative Care Routine Consulting Provider: [facility] Reason for Consult: metastatic lung cancer EMERGENT Consult: Yes MD Notified: Yes Date Notified: 03/03/25 Time Notified: 16:11 Method of Notification: Text Reason For Visit: POSTOBSTRUCTIVE PNEUMONIA, FLUID OVERLOAD Diagnosis Discharge Diagnosis (1) Obstructive pneumonia: Status: Acute Code(s): J18.9 - Pneumonia, unspecified organism (2) Pleural effusion: Status: Acute Code(s): J90 - Pleural effusion, not elsewhere classified (3) Metastatic cancer to lung: Status: Acute Code(s): C78.00 - Secondary malignant neoplasm of unspecified lung Plan Acute hypoxia ? CT demonstrated mild increase in the size of the left upper lobe/left hilar mass. Increased left pleural effusion. Increased left basilar atelectasis/consolidation. Increased cavitation in the left lower lobe. Unchanged mediastinal and hilar lymphadenopathy. Mild increase in the size and number of multiple pulmonary nodules with the largest measuring 16 mm. Placed on supplemental oxygen with treatment of the underlying clinical etiology ? 03/04/2025; patient remains on supplemental oxygen plan is for patient to be assessed for home oxygen prior to being discharged ? 03/05/2025Patient has a plan is for patient to be discharged to dependent his home oxygen being set up and approved by the [place] ? 03/07/2025; patient oxygen was apparently delivered to the wrong address did explain to patient is best to wait till Saturday for case management to sort this out -03/08: oxygen to be sent to his significant other's home, where he'll be staying. Postobstructive pneumonia ?on amp/SB since the , changed to amox/CA. Completed 7-day course of abx. Acute congestive heart failure with decreased ejection fraction ? 2D echo obtained demonstrated moderate global left ventricular systolic dysfunction with EF of 35%. On furosemide. tachycardia?A-fib flutter with rapid ventricular response ? EKG reviewed and demonstrates presence of A-fib flutter? New diagnosis. Patient did receive Cardizem. Also metoprolol continued. Patient started on systemic anticoagulation with apixaban 2D echo from 03/01/2025 did show moderate global left ventricular systolic dysfunction. The left ventricular ejection fraction is 35 %. Stage 1 diastolic dysfunction.Mild (1+) tricuspid valve insufficiency. Plan is to continue to monitor on telemetry and if patient does not respond to initial management patient be started on a Cardizem drip ? 03/07/2025; patient was started on Cardizem during the night. Plan is to wean off and start patient on p.o. Cardizem 03/08: on diltiazem 120 BID, metoprolol succinate 50/d, apixaban 5 BID. Metastatic lung CA ? Patient has apparently failed immunotherapy. Care is at the [facility] patient is requesting to be transferred to the [place] did explain to patient the best option would be for patient to be discharged after being assessed for home oxygen and then he can follow-up Hyponatremia ? 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 Patient was seen in consultation by dietary recommendations reviewed DVT prophylaxis? Patient started on Lovenox CODE STATUS DNR CCA no intubation ? Consult was also placed to the palliative care team to discuss goals of care next 03/04/2025 patient seen much more cooperative compared to previously. Patient is scheduled to have a meeting with hospice service this afternoon. Decision regarding discharge made after the meeting ? 03/05/2025; patient declined hospice decision was made to discharge patient home with plans for patient to follow-up with the palliative care team at the [facility] 03/08: pt to follow up with palliative care as oupt. Medications at Discharge Home Medications dexamethasone 4 mg tablet 4 mg PO DAILY unknown 03/02/25 empagliflozin 25 mg tablet (Jardiance) 12.5 mg PO DAILY unknown 03/02/25 metoprolol succinate 25 mg tablet,extended release 24 hr (Toprol XL) 25 mg PO DAILY unknown 03/02/25 ondansetron 8 mg disintegrating tablet 8 mg PO Q8H nausea 03/02/25 oxycodone 5 mg capsule 5 mg PO Q4H pain 03/02/25 furosemide 40 mg tablet 40 mg PO DAILY #30 tabs 03/05/25 guaifenesin 1,200 mg tablet, extended release 12 hr (Mucus Relief ER) 1,200 mg PO BID #60 tabs 03/05/25 potassium chloride 20 mEq tablet,extended release(part/cryst) 20 meq PO BIDCM #60 tabs 03/05/25 sennosides 8.6 mg-docusate sodium 50 mg tablet (Stimulant Laxative Plus) 2 tab PO BID #60 tabs 03/05/25 apixaban 5 mg tablet (Eliquis) 5 mg PO BID #60 tabs 03/08/25 diltiazem HCl 120 mg capsule,extended release 24 hr 120 mg PO BID #60 caps 03/08/25 metoprolol succinate 50 mg tablet,extended release 24 hr 50 mg PO DAILY #30 tabs 03/08/25 Hospital Course Operations None Procedures None Summary of Care Provided Minutes Spent on Discharge: 35 Medical Records Data Medical Nutrition Assessment Dietitian: Malnutrition Criteria Met Start: 03/02/25 08:20 Freq: Status: Active Protocol: Document 03/08/25 14:46 SB (Rec: 03/08/25 14:46 SB [id number]) Nutrition Malnutrition Evidence of Yes Malnutrition Exists Malnutrition (severe Chronic ): Evidenced By Suboptimal Energy Intake (Severe),Weight Loss (Severe), Physical Changes (Severe) Clinical Problem Chronic Disease or Condition Related Malnutrition Etiology Severe protein-calorie malnutrition in the context of chronic disease related to inadequate energy/oral intake and increased energy expenditure Signs/Symptoms as evidenced by ~15% unintentional body weight loss x 2 months; PO meeting less than 50% estimated nutrition needs x past 1 month; BMI 20.2; muscle wasting/fat depletion in the clavicle, face, arms and legs Status Active Problem Recommendation Dietitian Continue regular diet. Recommendations/ Will discontinue magic cup and ensure plus high protein Changes due to pt disliking/refusing them. Recommend pt meet with oncology dietitian at the [place] to manage weight loss and malnutrition. Homelessness:: Sheltered Weight / BMI Weight Weight: 63.8 kg Body Mass Index (BMI) 20.2 ABG / Lab / Microbiology Data 03/08/25 04:35 03/08/25 04:35 Laboratory: Laboratory Results - last 24 hr 03/08/25 04:35: WBC 12.6 H, RBC 3.65 L, Hgb 9.7 L, Hct 30.7 L, MCV 84.1, MCH 26.6 L, MCHC 31.6 L, RDW Std Deviation 48.0 H, RDW Coeff of Hai 15.8 H, Plt Count 455 H, MPV 9.8, Neut % (Auto) Not Reportable, Absolute Neuts (auto) 10.2 H, Absolute Lymphs (auto) 0.76 L, Total Counted 100, Neutrophils % (Manual) 80 H, Band Neutrophils % 1, Lymphocytes % (Manual) 6 L, Monocytes % (Manual) 8, Metamyelocytes % 4 H, Myelocytes % 1 H, Platelet Estimate SLT INC, Polychromasia 1+, Sodium 132 L, Potassium 4.2, Chloride 91 L, Carbon Dioxide 26.2, Anion Gap 14, BUN 25 H, Creatinine 0.92, Estim Creat Clear Calc 68.38, Est GFR (MDRD) Non-Af 90, BUN/Creatinine Ratio 27.6 H, Glucose 102 H, Calcium 8.9, Phosphorus 3.5, Magnesium 1.8 Microbiology: Microbiology 03/01/25 05:57 Blood Culture (Wb) - Right Wrist Blood Culture - Final No growth in 5 days. 03/01/25 05:40 Blood Culture (Wb) - Right Wrist Blood Culture - Final No growth in 5 days. 03/01/25 21:02 Mucosa - Nasopharyngeal Respiratory Panel (PCR) - Final 03/01/25 21:48 Urine, Clean Catch Streptococcus pneumoniae Antigen (M - Final 03/01/25 21:48 Urine, Clean Catch Legionella Antigen - Final D/C Instructions Call your doctor if you observe: Fever of 101 or Higher, Shortness of breath, Fainting spells and Chest pain DC O2, CPAP, BIPAP Needs Home O2 Discharge instructions: Yes Type of respiratory needs?: Oxygen (2) Oxygen frequency: Continuous (2) Continuous oxygen liters per minute: 2 DC home with Oxygen: Yes Home O2 MD Review: I have reviewed the oxygen testing, and the patient qualifies for home oxygen equipment and portability. The patient is mobile in the home and the community. Meaningful Use Info Meaningful Use Meaningful Use Diagnoses (Choose all that apply): None applicable Discharge Plan Admission Admit Date/Time: 03/01/25 18:58 Primary Reason for Your Visit: pneumonia Attending Provider: Pj Roper Primary Care Provider: [facility],[place] Consulting Providers: Kavita Myles; Leeann Miller; Javid Loera; Zackery Myrick; Umu Rodrigez; Jade Chavarria; Consuelo Lopez; Lulu Murry NP; Juana Krause; Zackery Soares Discharge Orders/Prescriptions Prescriptions: New sennosides-docusate sodium [Stimulant Laxative Plus] 8.6-50 mg Tablet 2 tab PO BID Qty: 60 0RF potassium chloride 20 mEq Tablet,Er Particles/Crystals 20 meq PO BIDCM Qty: 60 0RF guaifenesin [Mucus Relief ER] 1,200 mg Tablet Extended Release 12hr 1,200 mg PO BID Qty: 60 0RF furosemide 40 mg Tablet 40 mg PO DAILY Qty: 30 0RF metoprolol succinate 50 mg Tablet Extended Release 24 Hr 50 mg PO DAILY Qty: 30 0RF diltiazem HCl 120 mg Capsule,Extended Release 24hr 120 mg PO BID Qty: 60 0RF Eliquis 5 mg Tablet 5 mg PO BID Qty: 60 0RF Continued oxycodone 5 mg capsule 5 mg PO Q4H Rx Instructions: take 1-2 tabs as needed for pain ondansetron 8 mg tablet,disintegrating 8 mg PO Q8H Jardiance 25 mg tablet 12.5 mg PO DAILY metoprolol succinate [Toprol XL] 25 mg tablet extended release 24 hr 25 mg PO DAILY dexamethasone 4 mg tablet 4 mg PO DAILY Referrals / Follow Up: [facility] [Primary Care Provider] - Within 1 Week Disposition Disposition (needs filled in before D/C Order can be placed): Home, Self Care Charges/Coding Visit Charges Inpatient E&M: 53491 Disch Hosp >30min
--- NOTE | 2025-03-08 16:29 | CASEMGMT ---
Patient has order for discharge. Patient discharging on Eliquis, no prescription coverage. RN MEL called [facility] to confirm when oxygen is to be delivered and where. Per [facility], the chair car driver is on his way to hospital to deliver portable tank for at discharge. TOMAS CM in to patient's room. RN CM updated about Eliquis and provided 30 Free Trial card. RN CM updated patient and significant other about oxygen delivery. Per significant other, Deyanira, she just go off the phone with chair car driver, Shukri, who states he is going to their apartment to deliver equipment at 5:30PM. Deyanira states she will go home and wait for [facility] to deliver oxygen and patient will be here if they deliver oxygen to hospital, so that both places are covered for oxygen delivery. Patient and Deyanira had no further questions or concerns.
--- NOTE | 2025-03-08 16:32 | PHA.DC.MC.R ---
Pharmacy [facility] Counseling Pharmacy Service has performed discharge medication reconciliation and counseling for this patient. The patient's discharge medication list was reviewed for discrepancies and discrepancies were resolved. The patient was counseled on the following discharge medications and changes in medications for homegoing were reviewed. The Reason for Use, instructions for use, and potential side effects were reviewed for all new medications. The patient's questions regarding all of their medications were answered. 1. Furosemide 40 mg PO daily 2. Guaifenesin 1200 mg PO BID 3. Senna-S 2 tablets PO BID 4. Potassium chloride 20 mEq PO BID with meals 5. Apixaban 5 mg PO BID 6. Metoprolol succinate 50 mg PO Daily 7. Diltiazem 120 mg PO BID The patient was able to verbally demonstrate an understanding of their discharge medications. Medications at Discharge Home Medications dexamethasone 4 mg tablet 4 mg PO DAILY unknown 03/02/25 empagliflozin 25 mg tablet (Jardiance) 12.5 mg PO DAILY unknown 03/02/25 ondansetron 8 mg disintegrating tablet 8 mg PO Q8H nausea 03/02/25 oxycodone 5 mg capsule 5 mg PO Q4H pain 03/02/25 furosemide 40 mg tablet 40 mg PO DAILY #30 tabs 03/05/25 guaifenesin 1,200 mg tablet, extended release 12 hr (Mucus Relief ER) 1,200 mg PO BID #60 tabs 03/05/25 potassium chloride 20 mEq tablet,extended release(part/cryst) 20 meq PO BIDCM #60 tabs 03/05/25 sennosides 8.6 mg-docusate sodium 50 mg tablet (Stimulant Laxative Plus) 2 tab PO BID #60 tabs 03/05/25 apixaban 5 mg tablet (Eliquis) 5 mg PO BID #60 tabs 03/08/25 diltiazem HCl 120 mg capsule,extended release 24 hr 120 mg PO BID #60 caps 03/08/25 metoprolol succinate 50 mg tablet,extended release 24 hr 50 mg PO DAILY #30 tabs 03/08/25
--- NOTE | 2025-03-08 17:34 | NURSING ---
pt given discharge instructions including medications, follow up appointments and all other discharge instructions. [facility] to [facility] with.
== END 2025-03-08 21:20 | disposition home or self-care (01) | DRG 193 ==
LOC: ED 18:20 → PCU 19:01
PROVIDERS: Family Medicine; Internal Medicine; Admitting Provider Internal Medicine; Emergency Provider Emergency Medicine
DX: J18.9 Pneumonia, unspecified organism (principal); I50.21 Acute systolic (congestive) heart failure; J96.01 Acute respiratory failure with hypoxia; E43 Unspecified severe protein-calorie malnutrition; E22.2 Syndrome of inappropriate secretion of antidiuretic hormone; J91.0 Malignant pleural effusion; C34.02 Malignant neoplasm of left main bronchus; C34.12 Malignant neoplasm of upper lobe, left bronchus or lung; J44.0 Chronic obstructive pulmonary disease with (acute) lower respiratory infection; I48.92 Unspecified atrial flutter; I47.10 Supraventricular tachycardia, unspecified; I48.0 Paroxysmal atrial fibrillation; I77.1 Stricture of artery; D64.9 Anemia, unspecified; E87.6 Hypokalemia; J98.4 Other disorders of lung; Z68.20 Body mass index [BMI] 20.0-20.9, adult; Z66 Do not resuscitate; I49.3 Ventricular premature depolarization; I49.1 Atrial premature depolarization; F41.0 Panic disorder [episodic paroxysmal anxiety]; R53.81 Other malaise; R79.89 Other specified abnormal findings of blood chemistry; Z51.5 Encounter for palliative care; Z87.891 Personal history of nicotine dependence
CPT/HCPCS: 36415; 71275; 80048; 80053; 82962; 83605; 83735; 83880; 84100; 84443; 84484; 85025; 87040; 87449; 87633; 93005; 93306; 94640; 97161; 97165; 97802; 97803; 99285; Q9957; Q9967; A4216; C8929; J0295; J0696; J1938

== ENCOUNTER 2025-03-09 14:56 | Inpatient (IN) | payer OTHER, SELFPAY ==
[2025-03-09] VITALS (28 sets, daily range): BP systolic 83–114; BP diastolic 60–95; PULSE 63–152; RESP 12–32; TEMP 36.1–36.7; O2SAT 95–100; BMI 20.6; BMI 20.1
--- NOTE | 2025-03-09 15:08 | EX.ED.DYSGE1 ---
HPI History of Present Illness Chief Complaint: Shortness of Breath [facility] Medical History Hernia Lung cancer Home Medications ?Medication ?Instructions ?Recorded ?Last Taken ?Type dexamethasone 4 mg tablet 4 mg PO DAILY unknown 03/02/25 Unknown History empagliflozin 25 mg tablet 12.5 mg PO DAILY unknown 03/02/25 Unknown History (Jardiance) ondansetron 8 mg disintegrating 8 mg PO Q8H nausea 03/02/25 Unknown History tablet oxycodone 5 mg capsule 5 mg PO Q4H pain 03/02/25 03/02/25 History furosemide 40 mg tablet 40 mg PO DAILY #30 tabs 03/05/25 Unknown Rx guaifenesin 1,200 mg tablet, 1,200 mg PO BID #60 tabs 03/05/25 Unknown Rx extended release 12 hr (Mucus Relief ER) potassium chloride 20 mEq 20 meq PO BIDCM #60 tabs 03/05/25 Unknown Rx tablet,extended release(part/cryst) sennosides 8.6 mg-docusate sodium 2 tab PO BID #60 tabs 03/05/25 Unknown Rx 50 mg tablet (Stimulant Laxative Plus) apixaban 5 mg tablet (Eliquis) 5 mg PO BID #60 tabs 03/08/25 Unknown Rx diltiazem HCl 120 mg 120 mg PO BID #60 caps 03/08/25 Unknown Rx capsule,extended release 24 hr metoprolol succinate 50 mg 50 mg PO DAILY #30 tabs 03/08/25 Unknown Rx tablet,extended release 24 hr Allergy/AdvReac Type Severity Reaction Status Date / Time No Known Allergies Allergy Verified 01/04/25 06:26 Social History Smoking Status: Former smoker EXAM Physical Exam Const Vital Signs: 03/09/25 14:58 03/09/25 14:58 03/09/25 15:07 Temperature 97.2 F L 97.2 F L Temperature Source Temporal Temporal Pulse Rate 152 H 138 H 144 H Respiratory Rate 24 H 21 H 27 H Respiratory Effort Respiratory Depth Respiratory Pattern Tachypnea Blood Pressure 88/70 L 88/70 L Blood Pressure Mean 76 76 Blood Pressure Source Blood Pressure Position Blood Pressure Location Pulse Ox 97 95 99 Oxygen Delivery Method Nasal Cannula Room Air Oxygen Flow Rate (L/min) 2 2 Fraction of Inspired Oxygen (FIO2) 30 03/09/25 15:09 03/09/25 15:30 03/09/25 15:57 Temperature Temperature Source Pulse Rate 145 H Respiratory Rate 29 H Respiratory Effort Short of Breath Labored Accessory Muscle Use Respiratory Depth Shallow Respiratory Pattern Tachypnea Blood Pressure 91/75 Blood Pressure Mean 80 Blood Pressure Source Blood Pressure Position Blood Pressure Location Pulse Ox 100 Oxygen Delivery Method Nasal Cannula Bi-pap Bi-pap Oxygen Flow Rate (L/min) 2 Fraction of Inspired Oxygen (FIO2) 30 03/09/25 16:00 03/09/25 16:20 03/09/25 16:37 Temperature 97.0 F L 97.0 F L Temperature Source Temporal Temporal Pulse Rate 134 H 145 H 131 H Respiratory Rate 27 H 32 H 29 H Respiratory Effort Respiratory Depth Respiratory Pattern Blood Pressure 93/75 86/67 L 89/62 L Blood Pressure Mean 81 73 71 Blood Pressure Source Blood Pressure Position Blood Pressure Location Pulse Ox 100 100 Oxygen Delivery Method Bi-pap Bi-pap Oxygen Flow Rate (L/min) Fraction of Inspired Oxygen (FIO2) 30 30 03/09/25 16:44 03/09/25 17:08 03/09/25 17:10 Temperature 97.0 F L 97.4 F L Temperature Source Temporal Temporal Pulse Rate 146 H 127 H 63 Respiratory Rate 24 H 21 H 22 H Respiratory Effort Respiratory Depth Respiratory Pattern Normal Blood Pressure 83/69 L 83/71 L Blood Pressure Mean 73 75 Blood Pressure Source Monitor Monitor Blood Pressure Position Sitting Blood Pressure Location Right Arm Pulse Ox 100 98 100 Oxygen Delivery Method Bi-pap Bi-pap Oxygen Flow Rate (L/min) Fraction of Inspired Oxygen (FIO2) 30 30 30 03/09/25 17:36 03/09/25 17:49 03/09/25 17:51 Temperature 97.2 F L 97.2 F L 97.1 F L Temperature Source Temporal Temporal Temporal Pulse Rate 126 H 149 H 123 H Respiratory Rate 19 H 20 H 17 Respiratory Effort Respiratory Depth Respiratory Pattern Blood Pressure 88/63 L 103/81 H 103/81 H Blood Pressure Mean 71 88 88 Blood Pressure Source Monitor Blood Pressure Position Semi-Fowlers Blood Pressure Location Right Arm Pulse Ox 100 99 99 Oxygen Delivery Method Bi-pap Bi-pap Bi-pap Oxygen Flow Rate (L/min) Fraction of Inspired Oxygen (FIO2) 30 30 30 03/09/25 18:06 03/09/25 18:10 03/09/25 18:21 Temperature 97.2 F L 97.2 F L Temperature Source Temporal Temporal Pulse Rate 76 82 Respiratory Rate 29 H 25 H Respiratory Effort Respiratory Depth Respiratory Pattern Blood Pressure 106/78 106/78 96/70 Blood Pressure Mean 87 87 78 Blood Pressure Source Blood Pressure Position Blood Pressure Location Pulse Ox 98 98 Oxygen Delivery Method Bi-pap Bi-pap Oxygen Flow Rate (L/min) Fraction of Inspired Oxygen (FIO2) 30 30 03/09/25 18:36 03/09/25 18:51 03/09/25 19:00 Temperature 97.2 F L 97.2 F L Temperature Source Temporal Temporal Pulse Rate 86 95 95 Respiratory Rate 27 H 14 14 Respiratory Effort Respiratory Depth Respiratory Pattern Blood Pressure 109/95 H 114/75 114/75 Blood Pressure Mean 99 88 88 Blood Pressure Source Blood Pressure Position Blood Pressure Location Pulse Ox 96 98 98 Oxygen Delivery Method Bi-pap Bi-pap Bi-pap Oxygen Flow Rate (L/min) Fraction of Inspired Oxygen (FIO2) 30 30 30 03/09/25 19:50 03/09/25 19:59 03/09/25 20:21 Temperature 98.1 F 97.2 F L Temperature Source Temporal Temporal Pulse Rate 87 97 Respiratory Rate 24 H 24 H Respiratory Effort Respiratory Depth Respiratory Pattern Blood Pressure 103/82 H 104/82 H Blood Pressure Mean 89 89 Blood Pressure Source Monitor Blood Pressure Position Semi-Fowlers Blood Pressure Location Right Arm Pulse Ox 100 99 99 Oxygen Delivery Method Nasal Cannula Nasal Cannula Nasal Cannula Oxygen Flow Rate (L/min) 3 3 3 Fraction of Inspired Oxygen (FIO2) Sepsis Attestation Sepsis Alert: Yes Sepsis Attestation: Agree w/Sepsis Date exam was performed: 03/09/25 Time exam was performed: 15:03 Possible Source of Sepsis: Pulmonary Sepsis Organ Dysfunction Criteria Present: SBP < 90 mmHg or MAP < 65 mmHg Fluid Resuscitation Fluid resuscitation indicated?: Yes Fluid Resuscitation ordered: Lesser volume fluid bolus ordered Amount of fluid ordered: 500 Reason for lesser fluid bolus:: Concern for fluid overload and Heart failure MDM MDM MDM Narrative Medical decision making narrative: HISTORY OF PRESENT ILLNESS: Chief complaint: Shortness of 69-year-old male history of metastatic lung cancer, respiratory failure, on Eliquis. Patient notes 1 day of increasing shortness of breath. Denies leg swelling. Denies cough fever chills. Denies chest pain. He denies palpitations. Denies any bleeding diathesis such as hemoptysis, melena or hematochezia. Notes he has been compliant with Eliquis. He reports he has a history of metastatic lung cancer but otherwise denies any PE risk factors. REVIEW OF SYSTEMS: Pertinent positives: Shortness of breath Pertinent negatives: As per HPI PHYSICAL EXAM: Nursing triage notes reviewed, Vital signs reviewed Constitutional: please see [facility] HENT: MMM Eyes: Pupils equal round and reactive to light, Extraocular muscles intact Neck: No stridor, no JVD, full neck ROM Lungs: Increased work of breathing, conversational dyspnea, on BiPAP currently Heart: Regular rate and rhythm, No murmurs, No rubs and No gallops, 2+ distal pulses (radial, femoral, posterior tibial) in all extremities Abdomen: Soft, there is no tenderness, rigidity, rebound or guarding, no obvious peritoneal signs, no palpable pulsatile abdominal masses, no auscultated abdominal bruit : No CVAT Extremities: No edema Neuro: No new focal neurological deficits, cranial nerves II through XII intact, 5/5 strength in all present extremities. Intact sensation to light touch in all present extremities, 2+ reflexes bilateral patella tendons. Skin: No rash or lesions noted MEDICAL DECISION MAKING: Chief Complaint: please see HPI External records reviewed: Reviewed recent hospitalization. Patient was discharged on 03/08/2025 (yesterday) for obstructive pneumonia, pleural effusion, lung cancer. Initial CT from the hospitalization showed left upper lobe/left hilar mass. Showed increased left pleural effusion. Echocardiogram from that time showed ejection fraction of 35%. Patient started on systemic anticoagulation at that time secondary to a flutter or A-fib. Patient is DNR CCA with no intubation in terms of CODE STATUS per his recent discharge summary Factors affecting care: As above Social determinants of health: none History obtained from others: none Consults: Internal medicine CODE STATUS: DNR CCA no intubation [facility] Narrative: Patient was initially hypotensive with a blood pressure 88/70, was tachycardic initially with a heart rate of 152, tachypneic with respirate 24 saturating 97% with 2 L nasal cannula. Per respiratory therapy patient was tripoding showing increased work of breathing so placed on rescue BiPAP. I considered the following differential diagnosis: Pulm embolism, anemia, ACS arrhythmia, fluid overload, CHF exacerbation, electrolyte disturbance I obtained a broad lab and imaging work to further determine if the patient was suffering from a life-threatening etiology. Initially placed sepsis protocol given initial SIRS criteria and signs of hypotension Gave a gentle 500 cc bolus given initial hypotension. 500 cc bolus made no change in the patient's blood pressure or respiratory status. He remained hypotensive with a blood pressure in the 70s systolic and maps less than 65. Given extremis started the patient on peripheral Levophed. Just before Levophed was started I gave a 5 mg dose of metoprolol to hopefully control some of his arrhythmia and attempt to improve his blood pressure. Plan to place a central line and give broad-spectrum antibiotics as the patient's white blood cell count continues to elevate consistent with possible sepsis/septic shock Patient also received broad-spectrum antibiotics in form of vancomycin and Zosyn given elevated leukocytosis, signs of pneumonia on CT and x-ray as well as elevated lactate. ALL IMAGES (IF OBTAINED) HAVE BEEN PERSONALLY REVIEWED AND INTERPRETED BY MYSELF. EKG with right A-fib with RVR, normal intervals, no obvious CBC with leukocytosis suggestive of systemic inflammation, mild anemia, no thrombocytopenia No coagulopathy VBG without signs of respiratory acidosis The patient's chest x-ray was read and reviewed person myself showed evidence of a large left-sided pleural effusion covering the entire hemothorax. Patchy infiltrates as well. COVID test was positive. No significant coagulopathy noted on coagulation studies BMP with mild hyponatremia, no sign of endorgan hypoperfusion with normal anion gap no sign of metabolic acidosis with normal bicarb Initial lactate elevated consistent with endorgan hypoperfusion Initial troponin elevated, delta troponin remained stable Initial BNP elevated consistent with heart failure Given patient had an EF of 35% heart failure only 500 cc bolus was given. Did not give a 30 cc/kg bolus despite signs of septic shock given concern for volume overload. Tissue perfusion remained adequate, volume status remained euglycemic During the patient's ED course I did give a small dose of Lasix given 5 cc bolus and history of heart failure to maintain euglycemia. Procedure: Central line placement. Indication: Venous Access Consent: verbal. Risks of bleeding, infection, and pneumothorax were explained. A time out was completed. Maximal sterile barrier technique was used including cap, gown, sterile gloves, large sheet, hand washing and chlorhexidine prep. Anesthesia: The area anesthetized with 1% lidocaine. Procedure: The right femoral vein was punctured with a 19 gauge finder needle, then a wire introducer was placed, a 7 Palestinian triple lumen catheter was placed using Seldinger technique. There were no complications. Blood return was low pressure and non-pulsatile dark blood. Line secured in place with suture, and a sterile bio-occlusive dressing was applied. Patient tolerated procedure well. The procedure was performed by Krishna Guillaume DO The patient and/or family, caregivers express understanding. The patient and/or family, caregivers agrees with the plan. Shared decision making: I will have a discussion with the patient and or visitors regarding risk/benefits of further testing or admission. They will be made aware of of the risk/benefits inherent in this decision they will be given the opportunity to voice understanding. Total critical care time today provided was at least 60 minutes. This excludes separately billable procedures. Critical care time (if documented) is secondary to the patient having high probability of clinically significant/life threatening deterioration in the patient's condition which required my urgent intervention. Impression: 1. Septic shock 2. A-fib with RVR 3. Postobstructive pneumonia 4. Lung cancer 5. Pleural effusion 6. COVID-19 Dispo: Admit to ICU This note was generated with [employer] dictation software. It may contain incorrect words, spelling, and punctuation that were not noted in review of the chart prior to signing. Lab Data Labs: Laboratory Results - last 24 hr 03/09/25 03/09/25 03/09/25 15:03 15:20 17:25 WBC 14.7 H RBC 3.96 L Hgb 10.7 L Hct 33.8 L MCV 85.4 MCH 27.0 MCHC 31.7 L RDW Std Deviation 49.4 H RDW Coeff of Hai 15.8 H Plt Count 552 H MPV 9.9 Immature Gran % (Auto) CANE STRIPPER Neut % (Auto) CANE STRIPPER Lymph % (Auto) CANE STRIPPER Rice % (Auto) CANE STRIPPER Eos % (Auto) CANE STRIPPER Baso % (Auto) CANE STRIPPER Absolute Neuts (auto) 11.9 H Absolute Lymphs (auto) 0.59 L Total Counted 100 Neutrophils % (Manual) 78 H Band Neutrophils % 3 Lymphocytes % (Manual) 4 L Monocytes % (Manual) 7 Metamyelocytes % 3 H Myelocytes % 5 H Nucleated RBC % CANE STRIPPER Platelet Estimate MOD INC PT 16.6 H INR 1.3 APTT 39.7 H Sodium 131 L Potassium 4.6 Chloride 90 L Carbon Dioxide 25.4 Anion Gap 15 BUN 23 H Creatinine 0.97 Estim Creat Clear Calc 66.38 Est GFR (MDRD) Non-Af 84 BUN/Creatinine Ratio 23.9 H Glucose 107 H Lactic Acid 2.8 H* Calcium 9.3 Total Bilirubin 0.73 AST 48 H ALT 22 Alkaline Phosphatase 163 H Troponin T High Sens 48 H D Troponin T Hi Sens 2 Hr 42 H Troponin T Hi Sens 4Hr NT pro BNP II 2417 H Total Protein 6.8 Albumin 2.9 L Globulin 3.9 Albumin/Globulin Ratio 0.7 L 03/09/25 19:36 WBC RBC Hgb Hct MCV MCH MCHC RDW Std Deviation RDW Coeff of Hai Plt Count MPV Immature Gran % (Auto) Neut % (Auto) Lymph % (Auto) Rice % (Auto) Eos % (Auto) Baso % (Auto) Absolute Neuts (auto) Absolute Lymphs (auto) Total Counted Neutrophils % (Manual) Band Neutrophils % Lymphocytes % (Manual) Monocytes % (Manual) Metamyelocytes % Myelocytes % Nucleated RBC % Platelet Estimate PT INR APTT Sodium Potassium Chloride Carbon Dioxide Anion Gap BUN Creatinine Estim Creat Clear Calc Est GFR (MDRD) Non-Af BUN/Creatinine Ratio Glucose Lactic Acid Calcium Total Bilirubin AST ALT Alkaline Phosphatase Troponin T High Sens Troponin T Hi Sens 2 Hr Troponin T Hi Sens 4Hr 38 H NT pro BNP II Total Protein Albumin Globulin Albumin/Globulin Ratio ABG Data ABG results: ABG 03/09/25 15:24 Specimen Type WILDA Sample Site Not entered VBG pH 7.49 H VBG pO2 27 VBG HCO3 30 H VBG Total CO2 31 VBG O2 Sat (Calc) 57 VBG Base Excess 7 H POC Mix VBG pCO2 Pt Tmp 39.2 L O2 Delivery Device Not entered Radiography Diagnostic Testing: Clinical Impression(s) from Imaging Studies Chest X-Ray 03/09/25 15:45 IMPRESSION: Interval progression of pulmonary malignancy with near-complete opacification of left hemithorax with underlying left upper lobe/perihilar mass lesion as previously described, likely with postobstructive atelectasis and/or pneumonia, and coexisting pleural effusion. Increased conspicuity of numerous nodular cannonball metastases throughout the right lung. Reading Location: [id number] Chest CTA 03/09/25 16:36 IMPRESSION: No acute findings; no pulmonary arterial emboli identified. Advanced pulmonary malignancy with widespread metastatic lymphadenopathy and associated findings as described above. No significant interval change from 03/01/2025. Reading Location: [facility] Discharge Plan Triage Chief Complaint: Shortness of Breath ED Provider: Krishna Guillaume Dx/Rx/DC Orders Primary Care Provider: [facility],[place]
--- NOTE | 2025-03-09 15:19 | EKG12_ITS ---
Test Reason : Blood Pressure : */* mmHG Vent. Rate : 170 BPM Atrial Rate : 170 BPM P-R Int : 122 ms QRS Dur : 122 ms QT Int : 290 ms P-R-T Axes : * 47 258 degrees QTcB Int : 487 ms Critical Test Result: High HR Sinus tachycardia Non-specific intra-ventricular conduction delay Nonspecific ST Changes Abnormal ECG When compared with ECG of 09-Mar-2025 23:23, MANUAL COMPARISON REQUIRED DATA IS UNCONFIRMED Confirmed by Delmar Lofton ([id number]), science editor KENA ALICEA ([id number]) on 03/10/2025 8:18:04 AM Referred By: Confirmed By: Delmar Lofton
[2025-03-09 15:27] LABS: SITE Not entered; VBG BASE EXCESS 7 mmol/L (-1.0-3.5); VBG PO2 27 mmHg (25-40); VBG SO2 57 % (50-70); VBG TCO2 31 mmol/L (23-33)
[2025-03-09] MEDS: 0.9% Normal Saline (500mL Bag) 500 ML 999 ML IV (15:27)
--- NOTE | 2025-03-09 15:45 | RAD_ITS ---
PROCEDURE: CHEST 1 VIEW (PORTABLE) 03/09/2025 REASON FOR EXAM: SOB TECHNIQUE: Frontal view of the chest. COMPARISON: Chest x-ray 01/04/2025, CT chest 03/01/2025. FINDINGS: Lungs/Pleura: Near-complete whiteout opacification of the left hemithorax, with underlying large left upper lobe/perihilar mass lesion as previously demonstrated. There is likely progressed postobstructive atelectasis and/or consolidation, and with coexisting left pleural effusion. Numerous cannonball nodular metastatic lesions throughout the aerated right lung are more prominent from prior exam. Heart/Mediastinum: Enlarged but grossly stable, largely obscured by lung pathology. Bones/Soft tissues: Mild degenerative changes of the spine. No aggressive osseous erosion or destruction is appreciated. RAD/Chest 1 View (Portable) IMPRESSION: Interval progression of pulmonary malignancy with near-complete opacification o f left hemithorax with underlying left upper lobe/perihilar mass lesion as previously described, likely with postobstructive atelectasis and/or pneumonia, and coexisting pleural effusion. Increased conspicuity of numerous nodular cannonball metasta ses throughout the right lung. Reading Location: [facility]
[2025-03-09 15:52] LABS: Hematocrit 33.8 % (40-54); Hemoglobin 10.7 g/dL (13.0-16.5); Mean Corp Hgb Conc 31.7 g/dL (32-36); Mean Corpuscular Volume 85.4 fL (80-94); Mean Platelet Vol. 9.9 fl (6.2-12.0); POSITIVE COUNT YES; POSITIVE MORPHOLOGY YES; Platelet Count 552 K/mm3 (150-450); RBC Distribution Width CV 15.8 % (11.6-14.6); RBC Distribution Width SD 49.4 fl (35.1-43.9); Red Blood Count 3.96 M/mm3 (4.6-6.2); White Blood Count 14.7 K/mm3 (4.4-11.0)
[2025-03-09 16:18] LABS: AST(SGOT) 48 U/L (<=37); Alanine Aminotransfer ALT/SGPT 22 U/L (<=46); Albumin, Serum 2.9 g/dL (3.4-4.8); Alkaline Phosphatase 163 U/L (40-129); Anion Gap 15 (5-15); BUN 23 mg/dL (4-19); BUN/Creat Ratio 23.9 RATIO (10-20); Calcium,Total 9.3 mg/dL (7.6-11.0); Carbon Dioxide 25.4 mmol/L (21.0-32.0); Chloride 90 mmol/L (98-108); Estimated Creatinine Clearance 66.38 ml/min (50-250); Globulin 3.9 g/dL (2.2-4.2); Glucose 107 mg/dL (70-99); Potassium 4.6 mmol/L (3.3-5.1); Troponin T High Sensitivity 48 ng/L (<=22)
[2025-03-09] MEDS: Piperacil/Tazobactam 4.5 GM in 0.9% Normal Saline (100mL MB+) 100 ML IV (16:34)
--- NOTE | 2025-03-09 16:36 | CT_ITS ---
PROCEDURE: CTA CHEST W/WO CONTRAST 03/09/2025 REASON FOR EXAM: SOB TECHNIQUE: Procedure Code: [id number] Modality: CT Procedure: CTA CHEST W/WO CONTRAST Multiplanar Sagittal and Coronal images were obtained. 3D post processing was performed. CONTRAST: Isovue 370 VOLUME: 100 mL One or more dose reduction techniques were used (e.g., Automated exposure control, adjustment of the mA and/or kV according to patient size, use of iterative reconstruction technique). RADIATION DOSE SUMMARY: DLP: 283.39 mGycm COMPARISON: CTA chest 03/01/2025. FINDINGS: Since 03/01/2025, no substantial interval change in the large ill-defined left upper lobe mass with component extending to the left hilum and left aspect of the mediastinum. Associated postobstructive consolidation and atelectasis with subtotal opacification of the left lung. Small left pleural effusion, which is probably malignant. Similar innumerable scattered metastatic pulmonary nodules throughout the contralateral right lung. Similar bulky metastatic mediastinal and bilateral hilar lymphadenopathy, most prominent in the paratracheal and subcarinal patient's. Associated narrowing and partial obstruction or compression of the left tracheobronchial airway. No pneumothorax. Additionally, there is bulky metastatic lower cervical lymphadenopathy, most pronounced in the left medial supraclavicular station. There is also prominent bulky left axillary lymphadenopathy, unchanged. No filling defects suspicious for pulmonary arterial emboli identified. Similar narrowing/compression of the left pulmonary arterial central branches, without overt invasion or occlusion. Normal caliber of the main pulmonary trunk. No findings suggestive of right heart strain. Normal sized heart. No significant pericardial effusion. No coronary artery calcifications. Normal caliber thoracic aorta. No aneurysm or dissection. Multiple prominent enlarged metastatic lymph nodes within the visualized upper abdomen, in the epigastric/subcarinal stations, and visualized upper periaortic/inter aortocaval stations. Small epigastric midline ventral abdominal wall hernia containing fat, with internal nonspecific amorphous fat stranding. Multiple ill-defined sclerotic lesions throughout the visualized osseous structures, including the sternum and thoracic vertebrae, likely metastatic. No aggressive osseous erosion or destruction. Mild multilevel degenerative changes of the spine. Mild bilateral gynecomastia. CT/CTA Chest W/WO Contrast IMPRESSION: No acute findings; no pulmonary arterial emboli identified. Advanced pulmonary malignancy with widespread metastatic lymphadenopathy and as sociated findings as described above. No significant interval change from 03/01/2025. Reading Location: [facility]
--- NOTE | 2025-03-09 16:38 | ED.RN ---
holding on fluid resuscitation per Dr. Guillaume, levophed held until map below 65
[2025-03-09] MEDS: Norepinephrine 8 MG in 0.9% Normal Saline (250mL Bag) 242 ML 9.4 MG CONT INF (16:44)
[2025-03-09 16:49] LABS: Pro- Brain NATRIURETIC PEPTIDE 2417 pg/mL (<=900)
[2025-03-09 16:59] LABS: Prothrombin Time (Protime)PT. 16.6 SECONDS (11.7-14.9)
[2025-03-09 17:00] LABS: Partial Thromboplast Time 39.7 Seconds (24.1-36.2)
[2025-03-09] MEDS: Vancomycin HCl 1,750 MG in 0.9% Normal Saline (500mL Bag) 500 ML 250 MG IV (17:36)
[2025-03-09 18:07] LABS: Troponin T High Sens 2 HR 42 ng/L (<=22)
[2025-03-09] MEDS: 0.9 % NaCl (Sterile) Posiflush 10 mL 30 ML IV (18:31)
[2025-03-09 18:34] LABS: Differential Indicated MANUAL DIFF
[2025-03-09 18:54] LABS: Neutrophil-Band 3 % (0-5); Neutrophil-Segmented 78 % (47-70); Total Cells Counted 100 (MANUAL DIFF)
[2025-03-09 18:55] LABS: Scan Smear per Review Criteria MANUAL DIFF
[2025-03-09 19:34] LABS: Mucous, Urine 0 SEEN /hpf (<or=2+)
--- NOTE | 2025-03-09 19:42 | HP.PCM.HOS_ITS ---
[facility] - General General Date of Admission: 03/09/25 Date of Service: 03/09/25 Chief Complaint: SOB. 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 Mr. Cheney reports his symptoms began shortly after being discharged with increasing SOB. He informed the ER physician he has been compliant with his medications, to include both furosemide and apixaban. He denies associated fever, chills, bleeding, chest pain, palpitations, lower extremity edema, dysuria, hematuria, headache or rash. In the ER he was noted to have Leukocytosis of 14.7K with Lactic Acidosis of 2.8 mmol/L present on admission concerning for Sepsis due to recently diagnosed Postobstructive Pneumonia with a corresponding CTA of the chest with IV contrast that revealed no acute findings, no pulmonary artery emboli identified with advanced pulmonary malignancy with widespread metastatic lymphadenopathy with no interval change noted from March 01, 2025 in addition to CXR that revealed interval progression of pulmonary malignancy with near-complete opacification of the Left hemithorax with underlying JOSE/perihilar mass lesion as previously described, likely with postobstructive atelectasis and/or Pneumonia with coexisting Pleural Effusion in addition to increased conspicuity of numerous nodular cannonball metastases throughout the Right lung complicated by elevated NT pro-BNP II of 2,417 pg/mL consistent with AE of chronic systolic CHF; with reduced LVEF ~35% compounded by mildly elevated troponin T of 48 ng/L due to suspected acute cardiac strain with mild Hyponatremia of 131 mmol/L present on admission all combining to cause Acute Hypoxic Respiratory Failure; requiring BiPAP. He was then admitted to the ICU for further treatment for a stay that is expected to extend beyond 2 midnights. [facility] Medical History Hernia Lung cancer Home Medications ?Medication ?Instructions ?Recorded ?Last Taken ?Type dexamethasone 4 mg tablet 4 mg PO DAILY unknown Unknown History empagliflozin 25 mg tablet 12.5 mg PO DAILY unknown Unknown History (Jardiance) ondansetron 8 mg disintegrating 8 mg PO Q8H nausea 08/25 Unknown History tablet oxycodone 5 mg capsule 5 mg PO Q4H pain 03/02/25 History furosemide 40 mg tablet 40 mg PO DAILY #30 tabs 11/22 Unknown Rx guaifenesin 1,200 mg tablet, 1,200 mg PO BID #60 tabs 03/05/25 Unknown Rx extended release 12 hr (Mucus Relief ER) potassium chloride 20 mEq 20 meq PO BIDCM #60 tabs 11/22 Unknown Rx tablet,extended release(part/cryst) sennosides 8.6 mg-docusate sodium 2 tab PO BID #60 tab s 03/05/25 Unknown Rx 50 mg tablet (Stimulant Laxative Plus) apixaban 5 mg tablet (Eliquis) 5 mg PO BID #60 tabs Unknown Rx diltiazem HCl 120 mg 120 mg PO BID #60 caps 03/08 Unknown Rx capsule,extended release 24 hr metoprolol succinate 50 mg 50 mg PO DAILY #30 tabs 02/22 Unknown Rx tablet,extended release 24 hr Allergy/AdvReac Type Severity Reaction Status Date / Time No Known Allergies Allergy Verified 01/04/25 06:26 Social History Smoking Status: Former smoker ROS ROS Narrative Review of Systems: Constitutional: Patient denies fever or chills. Eyes: Patient denies changes in vision or discharge from eyes. ENT: Patient denies runny nose, sore throat or ear pain. Resp: Patient admits to SOB at rest as per HPI. He denies cough, wheezing or hemoptysis. CV: Patient denies chest pain, palpitations or heart racing. GI: Patient denies abdominal pain, nausea, vomiting, diarrhea or constipation. : Patient denies dysuria or hematuria. MSK: Patient denies arthralgias or myalgias. Skin: Patient denies rash, abscess, wounds or jaundice. Psych: Patient denies symptoms of uncontrolled depression or anxiety. Neuro: Patient denies headache, paresthesias or focal neurologic deficits. Allergy: Patient denies lip swelling, tongue swelling or urticaria. Hematology: Patient admits to easy bleeding on apixaban. Endocrinology: Patient denies polyuria, polydipsia or polyphagia. 14 point ROS otherwise negative except for positives noted above in HPI. Vital Signs Vital Signs Vital Signs: 03/09/25 14:58 03/09/25 14:58 03/09/25 15:07 Temperature 97.2 F L 97.2 F L Temperature Source Temporal Temporal Pulse Rate 152 H 138 H 144 H Respiratory Rate 24 H 21 H 27 H Respiratory Effort Respiratory Depth Respiratory Pattern Tachypnea Blood Pressure 88/70 L 88/70 L Blood Pressure Mean 76 76 Blood Pressure Source Blood Pressure Position Blood Pressure Location Pulse Ox 97 95 99 Oxygen Delivery Method Nasal Cannula Room Air Oxygen Flow Rate (L/min) 2 2 Fraction of Inspired Oxygen (FIO2) 30 03/09/25 15:09 03/09/25 15:30 03/09/25 15:57 Temperature Temperature Source Pulse Rate 145 H Respiratory Rate 29 H Respiratory Effort Short of Breath Labored Accessory Muscle Use Respiratory Depth Shallow Respiratory Pattern Tachypnea Blood Pressure 91/75 Blood Pressure Mean 80 Blood Pressure Source Blood Pressure Position Blood Pressure Location Pulse Ox 100 Oxygen Delivery Method Nasal Cannula Bi-pap Bi-pap Oxygen Flow Rate (L/min) 2 Fraction of Inspired Oxygen (FIO2) 30 03/09/25 16:00 03/09/25 16:20 03/09/25 16:37 Temperature 97.0 F L 97.0 F L Temperature Source Temporal Temporal Pulse Rate 134 H 145 H 131 H Respiratory Rate 27 H 32 H 29 H Respiratory Effort Respiratory Depth Respiratory Pattern Blood Pressure 93/75 86/67 L 89/62 L Blood Pressure Mean 81 73 71 Blood Pressure Source Blood Pressure Position Blood Pressure Location Pulse Ox 100 100 Oxygen Delivery Method Bi-pap Bi-pap Oxygen Flow Rate (L/min) Fraction of Inspired Oxygen (FIO2) 30 30 03/09/25 16:44 03/09/25 17:08 03/09/25 17:10 Temperature 97.0 F L 97.4 F L Temperature Source Temporal Temporal Pulse Rate 146 H 127 H 63 Respiratory Rate 24 H 21 H 22 H Respiratory Effort Respiratory Depth Respiratory Pattern Normal Blood Pressure 83/69 L 83/71 L Blood Pressure Mean 73 75 Blood Pressure Source Monitor Monitor Blood Pressure Position Sitting Blood Pressure Location Right Arm Pulse Ox 100 98 100 Oxygen Delivery Method Bi-pap Bi-pap Oxygen Flow Rate (L/min) Fraction of Inspired Oxygen (FIO2) 30 30 30 03/09/25 17:36 03/09/25 17:49 03/09/25 17:51 Temperature 97.2 F L 97.2 F L 97.1 F L Temperature Source Temporal Temporal Temporal Pulse Rate 126 H 149 H 123 H Respiratory Rate 19 H 20 H 17 Respiratory Effort Respiratory Depth Respiratory Pattern Blood Pressure 88/63 L 103/81 H 103/81 H Blood Pressure Mean 71 88 88 Blood Pressure Source Monitor Blood Pressure Position Semi-Fowlers Blood Pressure Location Right Arm Pulse Ox 100 99 99 Oxygen Delivery Method Bi-pap Bi-pap Bi-pap Oxygen Flow Rate (L/min) Fraction of Inspired Oxygen (FIO2) 30 30 30 03/09/25 18:06 03/09/25 18:10 03/09/25 18:21 Temperature 97.2 F L 97.2 F L Temperature Source Temporal Temporal Pulse Rate 76 82 Respiratory Rate 29 H 25 H Respiratory Effort Respiratory Depth Respiratory Pattern Blood Pressure 106/78 106/78 96/70 Blood Pressure Mean 87 87 78 Blood Pressure Source Blood Pressure Position Blood Pressure Location Pulse Ox 98 98 Oxygen Delivery Method Bi-pap Bi-pap Oxygen Flow Rate (L/min) Fraction of Inspired Oxygen (FIO2) 30 30 03/09/25 18:36 03/09/25 18:51 03/09/25 19:00 Temperature 97.2 F L 97.2 F L Temperature Source Temporal Temporal Pulse Rate 86 95 95 Respiratory Rate 27 H 14 14 Respiratory Effort Respiratory Depth Respiratory Pattern Blood Pressure 109/95 H 114/75 114/75 Blood Pressure Mean 99 88 88 Blood Pressure Source Blood Pressure Position Blood Pressure Location Pulse Ox 96 98 98 Oxygen Delivery Method Bi-pap Bi-pap Bi-pap Oxygen Flow Rate (L/min) Fraction of Inspired Oxygen (FIO2) 30 30 30 Weight Weight: 143 lb 15.39 oz Body Mass Index (BMI) 20.6 Physical Exam Const alert and oriented x3 Constitutional Narrative: Patient weaned off BiPAP to NC and appears comfortable at this time. General Appearance: cooperative HEENT normocephalic, head/scalp atraumatic, hearing grossly normal bilaterally and moist oral mucous membranes Eyes PERRL, EOMs intact bilaterally and conjunctivae normal Neck supple and no JVD Resp Resp Narrative: Diminished breath sounds throughout, Left > Right. Cardio regular rate and regular rhythm GI normal to inspection, nondistended, normoactive bowel sounds, soft to palpation, non-tender and non-distended Extremity normal to inspection, full ROM and no clubbing, cyanosis or edema Skin Skin Narrative: Patient has no evidence of rash, abscess, wounds or jaundice. Neuro oriented x3, CN's II-XII intact bilaterally, moves all extremities and no focal motor deficits Sensorium / Orientation: awake, alert, oriented to person, oriented to place and oriented to time Speech: speech normal Psych affect normal Results Medical Records Data Attestation: I reviewed the patient's medical records Lab / Micro Data Attestation: I reviewed the patient's lab results. 03/09/25 15:03 03/09/25 15:20 Labs: Laboratory Results - last 24 hr 03/09/25 15:03: WBC 14.7 H, RBC 3.96 L, Hgb 10.7 L, Hct 33.8 L, MCV 85.4, MCH 27.0, MCHC 31.7 L, RDW Std Deviation 49.4 H, RDW Coeff of Hai 15.8 H, Plt Count 552 H, MPV 9.9, Immature Gran % (Auto) [employer], Neut % (Auto) [employer], Lymph % (Auto) [employer], Catron % (Auto) [employer], Eos % (Auto) [employer], Baso % (Auto) [employer], Absolute Neuts (auto) 11.9 H, Absolute Lymphs (auto) 0.59 L, Total Counted 100, Neutrophils % (Manual) 78 H , Band Neutrophils % 3, Lymphocytes % (Manual) 4 L, Monocytes % (Manual) 7, M etamyelocytes % 3 H, Myelocytes % 5 H, Nucleated RBC % [employer], Platelet Estimate MOD INC, PT 16.6 H, INR 1.3, APTT 39.7 H, Lactic Acid 2.8 H* 03/09/25 15:20: Sodium 131 L, Potassium 4.6, Chloride 90 L, Carbon Dioxide 25.4, Anion Gap 15, BUN 23 H, Creatinine 0.97, Estim Creat Clear Calc 66.38, Est GFR (MDRD) Non-Af 84, BUN/Creatinine Ratio 23.9 H, Glucose 107 H, Calcium 9.3, Total Bilirubin 0.73, AST 48 H, ALT 22, Alkaline Phosphatase 163 H, Troponin T High Sens 48 H D, NT pro BNP II 2417 H, Total Protein 6.8, Albumin 2.9 L, Globulin 3.9, Albumin/Globulin Ratio 0.7 L 03/09/25 17:25: Troponin T Hi Sens 2 Hr 42 H Micro: Microbiology 03/09/25 15:36 Mucosa - Nose SARS-CoV-2, Influenza & RSV (PCR) - Final SARS-CoV-2 (COVID 19 PCR) ABG Data ABG results: ABG 03/09/25 15:24 Specimen Type WILDA Sample Site Not entered VBG pH 7.49 H VBG pO2 27 VBG HCO3 30 H VBG Total CO2 31 VBG O2 Sat (Calc) 57 VBG Base Excess 7 H POC Mix VBG pCO2 Pt Tmp 39.2 L O2 Delivery Device Not entered Imaging Radiology Impression Chest X-Ray 03/09/25 15:45 IMPRESSION: Interval progression of pulmonary malignancy with near-complete opacification of left hemithorax with underlying left upper lobe/perihilar mass lesion as previously described, likely with postobstructive atelectasis and/or pneumonia, and coexisting pleural effusion. Increased conspicuity of numerous nodular cannonball metastases throughout the right lung. Reading Location: [facility] Chest CTA 03/09/25 16:36 IMPRESSION: No acute findings; no pulmonary arterial emboli identified. Advanced pulmonary malignancy with widespread metastatic lymphadenopathy and associated findings as described above. No significant interval change from 03/01/2025. Reading Location: [facility] Assessment & Plan Assessment/Plan (1) Sepsis: QUALIFIERS: Acute respiratory failure type: with hypoxia Sepsis acute organ dysfunction status: with acute organ dysfunction Sepsis type: s epsis due to unspecified organism Severe sepsis acute organ dysfunction type: a cute respiratory failure Severe sepsis shock status: without septic shock Q ualified Code(s): A41.9 - Sepsis, unspecified organism; R65.20 - Severe sepsis without septic shock; J96.01 - Acute respiratory failure with hypoxia (2) Obstructive pneumonia: (3) Metastatic cancer to lung: QUALIFIERS: Laterality: bilateral Qualified Code(s): C78.01 - Secondary malignant neoplasm of right lung; C78.02 - Secondary malignant neoplasm of left lung (4) Pleural effusion: (5) Acute exacerbation of chronic heart failure: (6) Elevated troponin: (7) Acute hypoxic respiratory failure: (8) Palliative care encounter: (9) Hyponatremia: (10) History of SIADH: (11) History of atrial fibrillation: (12) Chronic anticoagulation: PLAN: Plan 1. Leukocytosis of 14.7K with Lactic Acidosis of 2.8 mmol/L present on admission concerning for Sepsis due to recently diagnosed Postobstructive Pneumonia with a corresponding CTA of the chest with IV contrast that revealed n o acute findings, no pulmonary artery emboli identified with advanced pulmonary malignancy with widespread metastatic lymphadenopathy with no interval change noted from March 01, 2025 in addition to CXR that revealed interval progression of pulmonary malignancy with near-complete opacification of the Left hemithorax with underlying JOSE/perihilar mass lesion as previously described, likely with postobstructive atelectasis and/or Pneumonia with coexisting Pleural Effusion in addition to increased conspicuity of numerous nodular cannonball metastases throughout the Right lung - Admit to ICU for treatment under the Sepsis protocol but with decreased fluid bolus due to #2. Continue IV vancomycin and IV piperacillin-tazobactam begun in ER and await culture and sensitivity data. Check urinary antigens to Streptococcus pneumonia and Legionella. Give ondansetron IV prn for nausea and vomiting. Give acetaminophen prn for [id number] (level 1-5/10) pain or fever. Give morphine IV prn for severe (level 6-10/10) pain. Finally, we will consult pulmonary/critical-care to see this patient on-rounds in the AM for further recommendations with help appreciated in advance. 2. Elevated NT pro-BNP II of 2,417 pg/mL consistent with AE of chronic systolic CHF; with reduced LVEF ~35% complicating #1 - Continue furosemide IV plus give supplemental KCl and magnesium. Check daily CXR and NT pro-BNP II to follow trend. 3. Mildly elevated troponin T of 48 ng/L due to suspected acute cardiac strain compounding #1 & #2 - Serialize troponin. Doubt ACS. 4. Acute Hypoxic Respiratory Failure; requiring BiPAP attributable to #1 - #3 - Wean BiPAP as tolerated. 5. Mild Hyponatremia of 131 mmol/L present on admission in the setting of previously known SIADH adding to the medical complexity of #1 - #3 - 6. History of atrial fibrillation/flutter; on diltiazem BID plus apixaban BID - Maintain apixaban and diltiazem as before. 7. 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 We will re-consult palliative care with patient's prognosis poor and with help appreciated in advance. 8. Essential hypertension; on metoprolol - Hold scheduled antihypertensives in light of #1. 9. Former tobacco abuse - Noted. 10. DVT/GI prophylaxis - Patient already on apixaban for #6 which will be continued. Pantoprazole 40 mg IV daily. Total time: Approximately (but not less than) 75 minutes. Sepsis Attestation Sepsis Alert: Yes Sepsis Attestation: Sepsis Ruled Out Date exam was performed: 03/09/25 Time exam was performed: 20:30 Possible Source of Sepsis: Pulmonary Sepsis Organ Dysfunction Criteria Present: SBP < 90 mmHg or MAP < 65 mmHg, SBP decrease of more than 40 mmHg, Acute Respiratory Failure (New need for BiPAP/CPAP or MV) and Lactic Acid > 2 mmol/L Fluid Resuscitation Fluid resuscitation indicated?: Yes Fluid Resuscitation ordered: Lesser volume fluid bolus ordered Amount of fluid ordered: 1 Reason for lesser fluid bolus:: Concern for fluid overload and Heart failure Sepsis Note Date exam was performed: 03/10/25 Time exam was performed: 00:30 Sepsis Attestation: Sepsis re-evaluation was performed Response to fluids: Fluid responsive hypotension Charges/Coding Visit Charges Inpatient E&M: 56631 Init Hosp L3
--- NOTE | 2025-03-09 20:12 | EKG12_ITS ---
Test Reason : Blood Pressure : */* mmHG Vent. Rate : 159 BPM Atrial Rate : * BPM P-R Int : * ms QRS Dur : 80 ms QT Int : 308 ms P-R-T Axes : * 61 227 degrees QTcB Int : 501 ms Baseline Artifact Cannot Detect Rhythm Probably Atrial Fibrillation with RVR Critical Test Result: High HR Atrial fibrillation with rapid ventricular response with premature ventricular or aberrantly conducted complexes ST & T wave abnormality, consider inferior ischemia ST & T wave abnormality, consider anterolateral ischemia Abnormal ECG When compared with ECG of 09-Mar-2025 18:44, MANUAL COMPARISON REQUIRED DATA IS UNCONFIRMED Confirmed by Delmar Lofton ([id number]), editor city KENA ALICEA ([id number]) on 03/10/2025 8:17:44 AM Referred By: Confirmed By: Delmar Lofton
[2025-03-09 20:18] LABS: Troponin T High Sens 4 HR 38 ng/L (<=22)
[2025-03-09 20:32] LABS: Reflex Lactate? Y
[2025-03-09 20:52] LABS: Glucose, Dipstick Normal (Normal); Ketone-Dipstick Negative (Negative); Leukocyte Esterase-Dipstick Negative /ul (Negative); Nitrite-Dipstick Negative (Negative); Occult Blood-Urine Negative /ul (Negative); Protein-Dipstick 30 mg/dl (Negative); Specific Gravity, Urine 1.010 (1.002-1.030); Urine Bilirubin Dipstick Negative (Negative)
[2025-03-09 20:53] LABS: Color, Urine Yellow (Yellow)
[2025-03-09 21:00] LABS: Red Blood Cells-Urine 0-5 SEEN /hpf (0-5); Squamous Epithelial Cells - UA 0-5 SEEN /hpf (0-5)
[2025-03-09] MEDS: 0.9% Saline Lock 10 ML Syringe IV (22:21)
[2025-03-09] MEDS: Piperacil/Tazobactam 3.375 GM in 0.9% Normal Saline (50mL MB+) 50 ML IV (22:22)
--- NOTE | 2025-03-09 22:25 | PCM.RX.CS ---
Consult Antibiotic Management Pharmacy has been consulted to manage selected antibiotic: Vancomycin Type of Intervention Type of Consult: New start Labs Labs: Sodium 131 mmol/L (133-145) L 03/09/25 15:20 Potassium 4.6 mmol/L (3.3-5.1) 03/09/25 15:20 Chloride 90 mmol/L (98-108) L 03/09/25 15:20 Carbon Dioxide 25.4 mmol/L (21.0-32.0) 03/09/25 15:20 Anion Gap 15 (5-15) 03/09/25 15:20 BUN 23 mg/dL (4-19) H 03/09/25 15:20 Creatinine 0.97 mg/dL (0.70-1.20) 03/09/25 15:20 Est GFR (MDRD) Non-Af 84 (>60) 03/09/25 15:20 BUN/Creatinine Ratio 23.9 RATIO (10-20) H 03/09/25 15:20 Glucose 107 mg/dL (70-99) H 03/09/25 15:20 Microbiology Microbiology: Microbiology 03/09/25 15:36 Mucosa - Nose SARS-CoV-2, Influenza & RSV (PCR) - Final SARS-CoV-2 (COVID 19 PCR) Dosing Weight Weight used for dosin.6 kg Estimated Creatinine Clearance Estimated Creatinine Clearance: 66.38 Goal Trough Goal Trough: 15-20 mcg/mL Pharmacy Plan for Drug Dosing Pharmacy Plan for Drug Dosing: Pharmacy Service will continue to monitor and adjust dosing as required. ER DOSE [id number] GIVEN 03/09 @ 1111. START 750MG Q12H AND DRAW TROUGH PRIOR TO 4TH DOSE Follow-Up Labs Follow-Up Labs: Trough: Vancomycin Date/Time Labs Ordered Labs to be done on [date and time ordered]: 03/11 @ 5007
[2025-03-09] MEDS: APIXABAN 5 MG TABLET PO (22:29)
[2025-03-09] MEDS: Lactobacillis Acidophilus 1 CAP PO (22:29)
--- OUTSIDE RECORDS SUMMARY | 2025-03-09 22:44 | XMS RPT_ITS | CCD ---
Author Organization [facility] Care Team Providers Care Celluloid Trimmer Name Role Phone MILES BARLOW Admitting Unavailable BETSY VAZQUEZ Attending Unavailable SANDRINE EARL Consulting [place] Primary Care [facility] SAWYER, Dr. Marino Emergency Provider Eden SAWYER, Dr. Marino Attending Provider Dr. Kassi Baker DO Emergency Provider [phone] Shar SANZ, Dr. Walls Admit Provider [phone] Shar SANZ, Dr. Walls Attending Provider [phone] [place] Primary Care Unavailable Leeann Miller Attending Kavita Kerns Consulting Unavailable Kavita Myles Admitting Unavailable Leeann Miller Consulting Javid Garcia Consulting Un[place] Unavailable Ned Harmon Attending Unavailable Pj Roper Attending Unavailable Zackery Myrick Consulting Unavailable Umu Rodrigez Consulting Unavailable ChavarriaJade plascencia Consulting Unavailable Consuelo Lopez Consulting Unavailable Jeanmarie WITT, Lulu Consulting Unavailable Juana Krause Consulting Unavailable Zackery Soares Consulting Unavailable Zackery Soares Attending Unavailable [place] Unavailable Jovon Cisneros Attending Unavailable Marissa Gallardo Attending Unavailable Pj Roper Consulting Unavailable Kavita Myles Attending Unavailable Javid Loera Attending Unavailable Dr. Kavita Myles MD Other Provider Paul WITT-CLeeann Other Provider Dr. Javid Loera MD Other Provider Dr. Zackery Myrick DO Other Provider Elia SANZ, Dr. Sanz Other Provider Aura SANZ, Dr. Hansen Other Provider John [employer], Consuelo Other Provider Unavailfrancoise Murry [employer], Lulu Other Provider Jimi CABRAL, Juana Other Provider Dr. Pj Roper DO Attending Provider Dr. Zackery Soares MD Other Provider Unavailable [place] Care Provider Unavailfrancoise Loera MD, Dr. Javid Jean-Baptiste Attending Provider Blayne SANZ, Dr. Sigala Attending Provider Paul [employer], Leeann Attending Provide r Dr. Zackery Soares MD Attending Provider Unavaila delia Gallardo MD, Dr. Marissa Montana Attending Provider Dr. Pj Roper DO Other Provider Dr. Krishna Guillaume DO Emergency Provider Dr. Zackery Christian DO Admit Provider Unavail [facility] Dr. Zackery Christian DO Attending Provider Unav ailable Medications Current Medications Medication Drug Class(es) Dates Sig (Normalized) Sig (Original) apixaban 5 mg oral tablet (2 sources) Factor Xa Inhibitor Start: 03-08-2025 take 1 tablet by mouth twice daily Apixaban (Eliquis) 5 mg Tablet Active 5 mg PO TWICE A DAY 60 0 March 08, 2025 12:00am dexamethasone 4 mg oral tablet (2 sources) Corticosteroid Start: 03-02-2025 take 1 tablet by mouth once daily 24 hr dilTIAZem hydrochloride 120 mg extended release oral capsule (2 sources) Calcium Channel Vinicio Start: 03-08-2025 take 1 capsule by mouth twice daily Diltiazem Hcl 120 mg Capsule,Extended Release 24hr Active 120 mg PO TWICE A DAY 60 0 March 08, 2025 12:00am docusate sodium 50 mg / sennosides, intermediate 8.6 mg oral tablet (2 sources) Start: 03-05-2025 Sennosides-Docusa te Sodium (Stimulant Laxative Plus) 8.6-50 mg Tablet Active 2 {tbl} PO TWICE A DAY 60 0 March 05, 2025 12:00am empagliflozin 25 mg oral tablet (2 sources) Sodium-Glucose Cotransporter 2 Inhibitor Start: 03-02-2025 take 1 tablet by mouth once daily furosemide 40 mg oral tablet (2 sources) Loop Diuretic Start: 03-05-2025 take 1 tablet by mouth once daily Furosemide 40 mg Tablet Active 40 mg PO DAILY 30 0 March 05, 2025 12:00am 12 hr guaiFENesin 1200 mg extended release oral tablet (2 sources) Start: 03-05-2025 take 1 tablet by mouth twice daily, then take 1 tablet by mouth every twelve hours Guaifenesin (Mucus Relief Er) 1,200 mg Tablet Extended Release 12hr Active 1200 mg PO TWICE A DAY 60 0 March 05, 2025 12:00am 24 hr metoprolol succinate 50 mg extended release oral tablet (4 sources) beta-Adrenergic Vinicio Start: 03-08-2025 take 1 tablet by mouth once daily Metoprolol Succinate 50 mg Tablet Extended Release 24 Hr Active 50 mg PO DAILY 30 0 March 08, 2025 12:00am Start: 03-02-2025 End: 03-08-2025 take 1 tablet by mouth once daily [place] (Unobtainable) (2 sources) Start: 01-04-2025 [place] (Unobtainable) Active January 04, 2025 12:00am ondansetron 8 mg disintegrating oral tablet (2 sources) Serotonin-3 Receptor Antagonist Start: 03-02-2025 take 1 tablet by mouth every eight hours Ondansetron 8 mg tablet,disintegrati ng Active 8 mg PO Q8H March 02, 2025 12:00am nausea oxyCODONE hydrochloride 5 mg oral capsule (2 sources) Opioid Agonist Start: 03-02-2025 take 1-2 tablets by mouth every four hours as needed for pain Oxycodone 5 mg capsule Active 5 mg PO Q4H 0 March 02, 2025 12:00am pain take 1-2 tabs as needed for pain microencapsulated potassium chloride 20 meq extended release oral tablet (2 sources) Start: 03-05-2025 take 1 tablet by mouth twice daily at mealtime Potassium Chloride 20 mEq Tablet,Er Particles/Crystals Active 20 meq PO TWICE DAILY WITH MEALS 60 0 March 05, 2025 12:00am Completed/Discontinued Medications Medication Drug Class(es) Dates Sig (Normalized) Sig (Original) meclizine hydrochloride 12.5 mg oral tablet (4 sources) Antiemetic Start: 03-22-2016 End: 01-04-2025 take 1 tablet by mouth three times daily as needed Meclizine 12.5 MG tablet Discontinued 12.5 mg PO 3 TIMES DAILY NEEDED as needed for Vertigo 20 0 March 22, 2016 12:00am January 04, 2025 6:32am Problems Problem Classification Problem Date Documented Date Episodic/Chronic Cancer of bronchus; lung (5 sources) Malignant neoplasm of unspecified part of left bronchus or lung; Translations: [Malignant tumor of lung] Onset: 12-14-2024 01-04-2025 Chronic Cancer; other and unspecified primary (4 sources) H/O: malignant neoplasm; Translations: [Personal history of malignant neoplasm of other organs and systems] 01-04-2025 Episodic Congestive heart failure; nonhypertensive (2 sources) Heart failure, unspecified; Translations: [Acute exacerbation of chronic heart failure] 03-09-2025 Chronic Deficiency and other anemia (1 source) Anemia, unspecified; Translations: [Anemia, unspecified type] Onset: 12-09-2024 Episodic Fluid and electrolyte disorders (2 sources) Hyponatremia; Translations: [Hypo-osmolality and hyponatremia] 03-09-2025 Episodic Other aftercare (1 source) Encounter for palliative care; Translations: [Encounter for palliative care] Onset: 03-08-2025 Episodic Other aftercare (5 sources) Patient encounter status; Translations: [Encounter for palliative care] 03-02-2025 Episodic Other aftercare (2 sources) Long-term current use of anticoagulant; Translations: [jail (current) use of anticoagulants] 03-09-2025 Episodic Other circulatory disease (2 sources) H/O: atrial fibrillation; Translations: [Personal history of other diseases of the circulatory system] 03-09-2025 Episodic Other lower respiratory disease (2 sources) Shortness of breath; Translations: [Shortness of breath] Onset: 12-09-2024 Episodic Other lower respiratory disease (4 sources) Dyspnea; Translations: [Shortness of breath] 01-04-2025 Episodic Other nervous system disorders (4 sources) Ataxia; Translations: [Ataxia, unspecified] 03-21-2016 Episodic Other nutritional; endocrine; and metabolic disorders (2 sources) H/O: endocrine disorder; Translations: [Personal history of other endocrine, nutritional and metabolic disease] 03-09-2025 Episodic Other screening for suspected conditions (not mental disorders or infectious disease) (2 sources) Raised cardiac enzyme or marker; Translations: [Other specified abnormal findings of blood chemistry] 03-09-2025 Episodic Pleurisy; pneumothorax; pulmonary collapse (7 sources) Pleural effusion; Translations: [Pleural effusion, not elsewhere classified] Onset: 03-08-2025 03-01-2025 Episodic Pneumonia (except that caused by tuberculosis or sexually transmitted disease) (7 sources) Postobstructive pneumonia; Translations: [Pneumonia, unspecified organism] Onset: 03-08-2025 03-01-2025 Episodic Respiratory failure; insufficiency; arrest (adult) (7 sources) Acute respiratory failure; Translations: [Acute respiratory failure with hypoxia] Onset: 03-08-2025 03-01-2025 Episodic Secondary malignancies (6 sources) Secondary malignant neoplasm of lung; Translations: [Secondary malignant neoplasm of unspecified lung] 03-01-2025 Chronic Secondary malignancies (1 source) Secondary malignant neoplasm of unspecified lung; Translations: [Secondary malignant neoplasm of unspecified lung] Onset: 03-08-2025 Chronic Septicemia (except in labor) (2 sources) Sepsis; Translations: [Sepsis, unspecified organism] 03-09-2025 Episodic Results Test Name Value Interpretation Reference Range Facility Absolute lymphocyte countOrd ered By: Krishna Guillaume on 03-09-2025 Lymphocytes Auto (Unsp spec) [#/Vol] 0.59 10*3/uL Low 0.83-4.51 [facility] Comment on above: Previous reported re sult: 0.73 X10^3/uLEdited by: JANESSA on 03/09/25:1836 AMENDED REPORT 03/09/25 183 Absolute Lymph previously reported as: 0.73 L X10^3/uL Absolute neutrophil countOrd ered By: Krishna Guillaume on 03-09-2025 Neutrophils (Bld) [#/Vol] 11.9 10*3/uL High 2.0-7.7 [facility] Comment on above: Previous reported re sult: 11.9 X10^3/uLEdited by: JANESSA on 03/09/25:6 AMENDED REPORT 03/09/251835 Absolute Neut previously reported as: 11.9 H X10^3/uL Activated partial thrombopla stin time (aPTT) in platelet poor plasma by coagulation aOrdered By: Krishna Guillaume on 03-09-2025 aPTT Coag (PPP) [Time] 39.7 s High 24.1-36.2 [facility] Anion gap in Serum or Plasma Ordered By: Krishna Guillaume on 03-09-2025 Anion gap [Moles/Vol] 15 mmol/L 5-15 [facility] Automated lymphocyte count a s percentage of total leukocytesOrdered By: Krishna Guillaume on 03-09-2025 Lymphocytes/100 WBC Auto (Unsp spec) [employer] [facility] Comment on above: Previous reported re sult: 5.0 %Edited by: JANESSA on 03/09/25:1833 AMENDED REPORT 03/09/251833 LY% previously reported as: 5.0 L % BUN/creatinine ratioOrdered By: Krishna Guillaume on 03-09-2025 Urea nitrogen/Creatinine [Mass ratio] 23.9 mg/mg High 10-20 [facility] Bilirubin Test strip Ql (U)O rdered By: Krishna Guillaume on 03-09-2025 Bilirubin Ql (U) Negative Negative [facility] Bilirubin, totalOrdered By: Krishna Guillaume on 03-09-2025 Bilirubin [Mass/Vol] 0.73 mg/dL 0.00-1.30 [facility] Blood band neutrophil count as percentage of total leukocytesOrdered By: Krishna Guillaume on 03-09-2025 Band form neutrophils/100 WBC (Bld) 3 % 0-5 [facility] Blood lymphocytes/100 leukoc ytesOrdered By: Krishna Guillaume on 03-09-2025 Lymphocytes/100 WBC (Bld) 4 % Low 19-41 [facility] Blood metamyelocytes/100 judy kocytesOrdered By: Krishna Guillaume on 03-09-2025 Metamyelocytes/100 WBC (Bld) 3 % High 0-1 [facility] Blood monocytes/100 leukocyt esOrdered By: Krishna Guillaume on 03-09-2025 Monocytes/100 WBC (Bld) 7 % 0-10 [facility] Blood segmented neutrophils/ 100 leukocytesOrdered By: Krishna Guillaume on 03-09-2025 Segmented neutrophils/100 WBC (Bld) 78 % High 47-70 [facility] CO2 (BldV) [Moles/Vol]Ordere d By: Krishna Guillaume on 03-09-2025 CO2 [Moles/Vol] 31 mmol/L 23-33 [facility] Carbon dioxide, total [Moles /volume] in Central venous bloodOrdered By: Krishna Guillaume on 03-09-2025 CO2 [Moles/Vol] 25.4 mmol/L 21.0-32.0 [facility] Chloride assayOrdered By: june Guillaume on 03-09-2025 Chloride [Moles/Vol] 90 mmol/L Low 98-108 [facility] Erythrocyte distribution wid th ratioOrdered By: Krishna Guillaume on 03-09-2025 Erythrocyte distribution width (RBC) [Ratio] 15.8 % High 11.6-14.6 [facility] Erythrocyte distribution wid th standard deviationOrdered By: Krishna Guillaume on 03-09-2025 Erythrocyte distribution width (RBC) [Ratio] 49.4 fl High 35.1-43.9 [facility] Glomerular filtration rate ( GFR) estimation/1.73 sq m using serum, plasma, or whole bOrdered By: Krishna Guillaume on 03-09-2025 GFR/1.73 sq M.predicted among non-blacks MDRD (S/P/Bld) [Vol rate/Area] 84 mL/min/{1.73_m2} >60 [facility] Comment on above: mL/min/1.73m2 CKD-EP I Creatinine Equation (2020) Hematocrit Auto (Bld) [Volum e fraction]Ordered By: Krishna Guillaume on 03-09-2025 Hematocrit (Bld) [Volume fraction] 33.8 % Low 40-54 [facility] Hemoglobin measurementOrdere d By: Krishna Guillaume on 03-09-2025 Hemoglobin (Bld) [Mass/Vol] 10.7 g/dL Low 13.0-16.5 [facility] Immature granulocytes/100 WB C Auto (Bld)Ordered By: Krishna Guillaume on 03-09-2025 Immature granulocytes/100 WBC (Bld) [employer] [facility] Comment on above: Previous reported re sult: 5.700 %Edited by: JANESSA on 03/09/25:1836 AMENDED REPORT 03/09/251835 IM GRAN % previously reported as: 5.700 H % IG% - Immature Granulocytes (promyelocytes, myelocytes and metamyelocytes) > 1% indicates that a LEFT SHIFT is Present. Influenza virus A and B and SARS-CoV-2 (COVID-19) and Respiratory syncytial virus RNAOrdered By: Krishna Guillaume on 03-09-2025 SARS-CoV-2 (COVID-19) RNA MAKAYLA+probe Ql (Unsp spec) SARS-CoV-2 (COVID 19 PCR) Abnormal [facility] normalized rat io (INR) calculationOrdered By: Krishna Guillaume on 03-09-2025 INR Coag (Bld) [Relative time] 1.3 {INR} [facility] Ketones Test strip Ql (U)Ord ered By: Krishna Guillaume on 03-09-2025 Ketones Ql (U) Negative Negative [facility] - Chemistry and C hemistry - challengeOrdered By: Krishna Guillaume on 03-09-2025 AST [Catalytic activity/Vol] 48 U/L High <38 [facility] Lactic acid measurementOrder ed By: Zackery Brizuela on 03-09-2025 Lactate [Moles/Vol] 1.8 mmol/L 0.0-2.0 [facility] MCV (mean corpuscular volume ) determinationOrdered By: Krishna Guillaume on 03-09-2025 MCV (RBC) [Entitic vol] 85.4 fL 80-94 [facility] Mean corpuscular hemoglobin (MCH) determinationOrdered By: Krishna Guillaume on 03-09-2025 MCH (RBC) [Entitic mass] 27.0 pg 27.0-32.0 [facility] Mean corpuscular hemoglobin concentration (MCHC) determinationOrdered By: Krishna Guillaume on 03-09-2025 MCHC (RBC) [Mass/Vol] 31.7 g/dL Low 32-36 [facility] Mean platelet volume determi nationOrdered By: Krishna Guillaume on 03-09-2025 Platelet mean volume (Bld) [Entitic vol] 9.9 fL 6.2-12.0 [facility] Microscopic analysis of urin e for red blood cells (RBC)Ordered By: Krishna Guillaume on 03-09-2025 Microscopic analysis of urine for red blood cells (RBC) 0-5 SEEN /hpf 0-5 [facility] Mucus LM Ql (Urine sed)Order ed By: Krishna Guillaume on 03-09-2025 Mucus Ql (Urine sed) 0 SEEN /hpf [facility] Myelocyte %Ordered By: Schuyler Guillaume on 03-09-2025 Myelocytes/100 WBC (Bld) 5 % High 0-0 [facility] Natriuretic peptide.B prohor dada N-Terminal [Mass/volume] in Serum or PlasmaOrdered By: Krishna Guillaume on 03-09-2025 Natriuretic peptide.B prohormone N-Terminal [Mass/Vol] 2417 pg/mL High <900 [facility] Comment on above: Heart Failure Unlike ly: < 300 pg/mLHeart Failure Likely< 50 Years: > 450 pg/mL50-75 Years: > 900 pg/mL>75 Years: > 1800 pg/mL Nitrite Test strip Ql (U)Ord ered By: Krishna Guillaume on 03-09-2025 Nitrite Ql (U) Negative Negative [facility] No Panel InformationOrdered By: Krishna Guillaume on 03-09-2025 Blood Gas Sample Site Not entered [facility] Blood Gas Specimen Type WILDA [facility] Oxygen Delivery Device Not entered [facility] Nucleated red blood cell per centageOrdered By: Krishna Guillaume on 03-09-2025 Nucleated red blood cell percentage [employer] [facility] Comment on above: Previous reported re sult: 0 %Edited by: JANESSA on 03/09/25:1836 AMENDED REPORT 03/09/251835 NRBC, FLAGGED previously reported as: 0 % Platelet countOrdered By: Hansel Guillaume on 03-09-2025 Platelets (Bld) [#/Vol] 552 10*3/uL High 150-450 [facility] Platelet estimateOrdered By: Krishna Guillaume on 03-09-2025 Platelets LM Ql (Bld) MOD INC ADEQ [facility] Potassium measurement (mass/ volume)Ordered By: Krishna Guillaume on 03-09-2025 Potassium (Unsp spec) [Mass/Vol] 4.6 mmol/L 3.3-5.1 [facility] Protein Test strip Ql (U)Ord ered By: Krishna Guillaume on 03-09-2025 Protein Ql (U) 30 mg/dl High Negative [facility] Prothrombin timeOrdered By: Krishna Guillaume on 03-09-2025 PT Coag (PPP) [Time] 16.6 s High 11.7-14.9 [facility] RBC Auto (Bld) [#/Vol]Ordere d By: Krishna Guillaume on 03-09-2025 RBC (Bld) [#/Vol] 3.96 10*6/uL Low 4.6-6.2 [facility] Serum creatinine measurement (mass/volume)Ordered By: Krishna Guillaume on 03-09-2025 Creatinine [Mass/Vol] 0.97 mg/dL 0.70-1.20 [facility] Serum globulin measurementOr dered By: Krishna Guillaume on 03-09-2025 Globulin (S) [Mass/Vol] 3.9 g/dL 2.2-4.2 [facility] Serum glucose measurement (m ass/volume)Ordered By: Krishna Guillaume on 03-09-2025 Glucose [Mass/Vol] 107 mg/dL High 70-99 [facility] Serum or plasma alanine hein otransferase (ALT) measurementOrdered By: Krishna Guillaume on 03-09-2025 ALT [Catalytic activity/Vol] 22 U/L <47 [facility] Serum or plasma albumin vahe urement (mass/volume)Ordered By: Krishna Guillaume on 03-09-2025 Albumin [Mass/Vol] 2.9 g/dL Low 3.4-4.8 [facility] Serum or plasma albumin/glob ulin mass ratioOrdered By: Krishna Guillaume on 03-09-2025 Albumin/Globulin [Mass ratio] 0.7 {ratio} Low 0.9-2.4 [facility] Serum or plasma alkaline celio sphatase measurementOrdered By: Krishna Guillaume on 03-09-2025 ALP [Catalytic activity/Vol] 163 U/L High 40-129 [facility] Serum or plasma calcium vahe urement (mass/volume)Ordered By: Krishna Guillaume on 03-09-2025 Calcium [Mass/Vol] 9.3 mg/dL 7.6-11.0 [facility] Serum or plasma urea nitroge n measurement (mass/volume)Ordered By: Krishna Guillaume on 03-09-2025 Urea nitrogen [Mass/Vol] 23 mg/dL High 4-19 [facility] Sodium levelOrdered By: Mirela Guillaume on 03-09-2025 Sodium [Moles/Vol] 131 mmol/L Low 133-145 [facility] Squamous epithelial cells de tection in urine sediment by light microscopyOrdered By: Krishna Guillaume on 03-09-2025 Epithelial cells.squamous LM Ql (Urine sed) 0-5 SEEN /hpf 0-5 [facility] Total cell countOrdered By: Krishna Guillaume on 03-09-2025 Cells counted Molgen (Bld/Tiss) [#] 100 MANUAL DIFF [facility] Total proteinOrdered By: Evelin Guillaume on 03-09-2025 Protein [Mass/Vol] 6.8 g/dL 5.9-8.4 [facility] Troponin T.cardiac [Mass/vol ume] in Serum or Plasma by High sensitivity methodOrdered By: Krishna Guillaume on 03-09-2025 Troponin T.cardiac High sensitivity method [Mass/Vol] 38 ng/L High <22 [facility] Troponin T.cardiac High sensitivity method [Mass/Vol] 42 ng/L High <22 [facility] Troponin T.cardiac High sensitivity method [Mass/Vol] 48 ng/L High <22 [facility] Comment on above: Delta: 36 on 5-0240 Urine clarityOrdered By: Evelin Guillaume on 03-09-2025 Clarity (U) Clear Clear [facility] Urine color determinationOrd ered By: Krishna Guillaume on 03-09-2025 Color (U) Yellow Yellow [facility] Urine glucose detectionOrder ed By: Krishna Guillaume on 03-09-2025 Glucose Ql (U) Normal mg/dl Normal [facility] Urine leukocyte esterase det ection by dipstickOrdered By: Krishna Guillaume on 03-09-2025 Leukocyte esterase Test strip Ql (U) Negative Negative [facility] Urine pHOrdered By: Krishna vazquez on 03-09-2025 pH (U) 6.0 [pH] 5.0 - 8.0 [facility] Urine sediment bacteria coun t by microscopy (number/high power field)Ordered By: Krishna Guillaume on 03-09-2025 Bacteria LM.HPF (Urine sed) [#/Area] 0 /[HPF] None Seen [facility] Urine specific gravity measu rementOrdered By: Krishna Guillaume on 03-09-2025 Specific gravity (U) [Rel density] 1.010 1.002-1.030 [facility] Urine urobilinogen measureme ntOrdered By: Krishna Guillaume on 03-09-2025 Urobilinogen Ql (U) Normal mg/dl Normal [facility] Venous blood base excess za surementOrdered By: Krishna Guillaume on 03-09-2025 Base excess Calc (BldV) [Moles/Vol] 7 mmol/L High -1.0-3.5 [facility] Venous blood bicarbonate za surementOrdered By: Krishna Guillaume on 03-09-2025 HCO3 (Bld) [Moles/Vol] 30 mmol/L High 22-26 [facility] Venous blood oxygen saturati on measurementOrdered By: Krishna Guillaume on 03-09-2025 Oxygen saturation in Blood 57 % 50-70 [facility] Venous blood pH measurementO rdered By: Krishna Guillaume on 03-09-2025 pH (BldV) 7.49 [pH] High 7.32-7.42 [facility] Venous blood partial pressur e of carbon dioxide measurementOrdered By: Krishna Guillaume on 03-09-2025 CO2 (BldV) [Partial pressure] 39.2 mm[Hg] Low 41-51 [facility] Venous blood partial pressur e of oxygen measurementOrdered By: Krishna Guillaume on 03-09-2025 Oxygen (BldV) [Partial pressure] 27 mm[Hg] 25-40 [facility] White blood cell (WBC) count Ordered By: Krishna Guillaume on 03-09-2025 WBC (Bld) [#/Vol] 14.7 10*3/uL High 4.4-11.0 [facility] White blood cell countOrdere d By: Krishna Guillaume on 03-09-2025 White blood cell count 0-5 SEEN /hpf 0-5 [facility] Absolute lymphocyte countOrd ered By: Zackery Soares on 03-08-2025 Lymphocytes Auto (Unsp spec) [#/Vol] 0.76 10*3/uL Low 0.83-4.51 [facility] Absolute neutrophil countOrd ered By: Zackery Soares on 03-08-2025 Neutrophils (Bld) [#/Vol] 10.2 10*3/uL High 2.0-7.7 [facility] Anion gap in Serum or Plasma Ordered By: Zackery Soares on 03-08-2025 Anion gap [Moles/Vol] 14 mmol/L 5-15 [facility] BUN/creatinine ratioOrdered By: Zackery Soares on 03-08-2025 Urea nitrogen/Creatinine [Mass ratio] 27.6 mg/mg High 10-20 [facility] Basic Metabolic Profile (BMP )on 03-08-2025 BUN/CRE 27.6 RATIO High 04-19 [facility] Comment on above: Performed By: #### L 503.6005, [id number], [id number] #### [facility] [address] [place], [address] Calcium [Mass/Vol] 8.9 mg/dL Normal 7.6-11.0 [facility] Comment on above: Performed By: #### L 503.6005, [id number], [id number] #### [facility] [address] [place], [address] Chloride [Moles/Vol] 91 mmol/L Low 98-108 [facility] Comment on above: Performed By: #### L 503.6005, [id number], [id number] #### [facility] [address] [place], [address] CO2 [Moles/Vol] 26.2 mmol/L Normal 21.0-32.0 [facility] Comment on above: Performed By: #### L 503.6005, [id number], [id number] #### [facility] [address] [place], [address] Creatinine [Mass/Vol] 0.92 mg/dL Normal 0.70-1.20 [facility] Comment on above: Performed By: #### L 503.6005, [id number], [id number] #### [facility] [address] [place], [address] ECRCL 68.38 ml/min Normal 50-250 [facility] Comment on above: Performed By: #### L 503.6005, [id number], [id number] #### [facility] [address] [place], [address] GAP 14 Normal 5-15 [facility] Comment on above: Performed By: #### L 503.6005, [id number], [id number] #### [facility] [address] [place], [address] GFR/1.73 sq M.predicted among non-blacks MDRD (S/P/Bld) [Vol rate/Area] 90 mL/min/{1.73_m2} Normal >60 [facility] Comment on above: Result Comment: mL/m in/1.73m2 CKD-EPI Creatinine Equation (2020) Performed By: #### L 503.6005, [id number], [id number] #### [facility] [address] [place], [address] Glucose [Mass/Vol] 102 mg/dL High 70-99 [facility] Comment on above: Performed By: #### L 503.6005, [id number], L501.4021 #### [facility] [address] [place], [address] Potassium [Moles/Vol] 4.2 mmol/L Normal 3.3-5.1 [facility] Comment on above: Performed By: #### L 503.6005, L503.7505, L501.4021 #### [facility] [address] [place], [address] Sodium [Moles/Vol] 132 mmol/L Low 133-145 [facility] Comment on above: Performed By: #### L 503.6005, L503.7505, L501.4021 #### [facility] [address] [place], [address] Urea nitrogen [Mass/Vol] 25 mg/dL High 4-19 [facility] Comment on above: Performed By: #### L 503.6005, L503.7505, L501.4021 #### [facility] [address] [place], [address] Blood band neutrophil count as percentage of total leukocytesOrdered By: Zackery Soares on 03-08-2025 Band form neutrophils/100 WBC (Bld) 1 % 0-5 [facility] Blood lymphocytes/100 leukoc ytesOrdered By: Zackery Soares on 03-08-2025 Lymphocytes/100 WBC (Bld) 6 % Low 19-41 [facility] Blood metamyelocytes/100 judy kocytesOrdered By: Zackery Soares on 03-08-2025 Metamyelocytes/100 WBC (Bld) 4 % High 0-1 [facility] Blood monocytes/100 leukocyt esOrdered By: Zackery Soares on 03-08-2025 Monocytes/100 WBC (Bld) 8 % 0-10 [facility] Blood polychromasia detectio n by light microscopyOrdered By: Zackery Soares on 03-08-2025 Polychromasia LM Ql (Bld) 1+ [facility] Blood segmented neutrophils/ 100 leukocytesOrdered By: Zackery Soares on 03-08-2025 Segmented neutrophils/100 WBC (Bld) 80 % High 47-70 [facility] CBC W/Diff, Automatedon Absolute Lymph 0.76 X10 3/uL Low 0.83-4.51 [facility] Comment on above: Performed By: #### L 503.6005, L503.7505, L501.4021 #### [facility] [address] [place], [address] Absolute Neut 10.2 X10 3/uL High 2.0-7.7 [facility] Comment on above: Performed By: #### L 503.6005, L503.7505, L501.4021 #### [facility] [address] [place], [address] Carbon dioxide, total [Moles /volume] in Central venous bloodOrdered By: Zackery Soares on 03-08-2025 CO2 [Moles/Vol] 26.2 mmol/L 21.0-32.0 [facility] Chloride assayOrdered By: Hugo Soares on 03-08-2025 Chloride [Moles/Vol] 91 mmol/L Low 98-108 [facility] Electrocardiogram reportOrde red By: Delmar Lofton on 03-08-2025 EKG study [facility] [address] [place] [address] 12 Lead EKG 03/06/25 0601 MR#: [id number] Acct: [id number] Name: EMETERIO CHENEY Rep #:[id number] : 1955 69 From: Delmar bedoya MD Attending Dr: Dr. Pj Roper DO Status: ADM IN Ordering Dr: Marissa Gallardo MD Date: 03/06/25 Location: [facility] Sex: M C Admitted: 03/01/25 Test Reason : TACHYCARDIA Blood Pressure : */* mmHG Vent. Rate : 160 BPM Atrial Rate : * BPM P-R Int : * ms QRS Dur : 78 ms QT Int : 306 ms P-R-T Axes : * 66 82 degrees QTcB Int : 499 ms Critical Test Result: High HR Atrial fibrillation with rapid ventricular response Nonspecific ST and T wave abnormality Abnormal ECG When compared with ECG of 01-Mar-2025 01:38, Atrial fibrillation has replaced Sinus rhythm Confirmed by Delmar Lofton ([id number]), commissioning editor KENA ALICEA ([id number]) on 03/08/2025 10:12:58 AM Referred By: SAMI Confirmed By: Delmar Lofton 03/08/25 1013 Date _ Delmar Lofton MD CC: Dr. Marissa Gallardo MD; Dr. Pj Roper DO; [facility] ~ Signed [facility] Other Phone: Erythrocyte distribution wid th ratioOrdered By: Zackery Soares on 03-08-2025 Erythrocyte distribution width (RBC) [Ratio] 15.8 % High 11.6-14.6 [facility] Erythrocyte distribution wid th standard deviationOrdered By: Zackery Soares on 03-08-2025 Erythrocyte distribution width (RBC) [Ratio] 48.0 fl High 35.1-43.9 [facility] Glomerular filtration rate ( GFR) estimation/1.73 sq m using serum, plasma, or whole bOrdered By: Zackery Soares on 03-08-2025 GFR/1.73 sq M.predicted among non-blacks MDRD (S/P/Bld) [Vol rate/Area] 90 mL/min/{1.73_m2} >60 [facility] Comment on above: mL/min/1.73m2 CKD-EP I Creatinine Equation (2020) Hematocrit Auto (Bld) [Volum e fraction]Ordered By: Zackery Soares on 03-08-2025 Hematocrit (Bld) [Volume fraction] 30.7 % Low 40-54 [facility] Hemoglobin measurementOrdere d By: Zackery Soares on 03-08-2025 Hemoglobin (Bld) [Mass/Vol] 9.7 g/dL Low 13.0-16.5 [facility] MCV (mean corpuscular volume ) determinationOrdered By: Zackery Soares on 03-08-2025 MCV (RBC) [Entitic vol] 84.1 fL 80-94 [facility] Magnesiumon 03-08-2025 Magnesium [Mass/Vol] 1.8 mg/dL Normal 1.5-2.2 [facility] Comment on above: Performed By: #### L 503.6005, L503.7505, L501.4021 #### [facility] [address] [place] [address], [id number] Magnesium measurement (mass/ volume)Ordered By: Zackery Soares on 03-08-2025 Magnesium (Unsp spec) [Mass/Vol] 1.8 mg/dL 1.5-2.2 [facility] Mean corpuscular hemoglobin (MCH) determinationOrdered By: Zackery Soares on 03-08-2025 MCH (RBC) [Entitic mass] 26.6 pg Low 27.0-32.0 [facility] Mean corpuscular hemoglobin concentration (MCHC) determinationOrdered By: Zackery Soares on 03-08-2025 MCHC (RBC) [Mass/Vol] 31.6 g/dL Low 32-36 [facility] Mean platelet volume determi nationOrdered By: Zackery Soares on 03-08-2025 Platelet mean volume (Bld) [Entitic vol] 9.8 fL 6.2-12.0 [facility] Myelocyte %Ordered By: Zackery Soares on 03-08-2025 Myelocytes/100 WBC (Bld) 1 % High 0-0 [facility] Phosphoruson 03-08-2025 Phosphate [Mass/Vol] 3.5 mg/dL Normal 2.7-4.5 [facility] Comment on above: Performed By: #### L 503.6005, L503.7505, L501.4021 #### [facility] [address] [place], [address] Platelet countOrdered By: Hugo Soares on 03-08-2025 Platelets (Bld) [#/Vol] 455 10*3/uL High 150-450 [facility] Platelet estimateOrdered By: Zackery Soares on 03-08-2025 Platelets LM Ql (Bld) SLT INC ADEQ [facility] Potassium measurement (mass/ volume)Ordered By: Zackery Soares on 03-08-2025 Potassium (Unsp spec) [Mass/Vol] 4.2 mmol/L 3.3-5.1 [facility] RBC Auto (Bld) [#/Vol]Ordere d By: Zackery Soares on 03-08-2025 RBC (Bld) [#/Vol] 3.65 10*6/uL Low 4.6-6.2 [facility] Serum creatinine measurement (mass/volume)Ordered By: Zackery Soares on 03-08-2025 Creatinine [Mass/Vol] 0.92 mg/dL 0.70-1.20 [facility] Serum glucose measurement (m ass/volume)Ordered By: Zackery Soares on 03-08-2025 Glucose [Mass/Vol] 102 mg/dL High 70-99 [facility] Serum or plasma calcium vahe urement (mass/volume)Ordered By: Zackery Soares on 03-08-2025 Calcium [Mass/Vol] 8.9 mg/dL 7.6-11.0 [facility] Serum or plasma urea nitroge n measurement (mass/volume)Ordered By: Zackery Soares on 03-08-2025 Urea nitrogen [Mass/Vol] 25 mg/dL High 4-19 [facility] Sodium levelOrdered By: Adrian Soares on 03-08-2025 Sodium [Moles/Vol] 132 mmol/L Low 133-145 [facility] Total cell countOrdered By: Zackery Soares on 03-08-2025 Cells counted Molgen (Bld/Tiss) [#] 100 MANUAL DIFF [facility] White blood cell (WBC) count Ordered By: Zackery Soares on 03-08-2025 WBC (Bld) [#/Vol] 12.6 10*3/uL High 4.4-11.0 [facility] 12 Lead EKGon 03-06-2025 12 Lead EKG [facility] [address] [place] [address] 12 Lead EKG 03/06/25 0601 MR#: [id number] Acct: [id number] Name: EMETERIO CHENEY Rep #: [id number] : 1955 69 From: Delmar Lofton MD Attending Dr: Dr. Pj Roper DO Status: ADM IN Ordering Dr: Marissa Gallardo MD Date: 03/06/25 Location: [facility] Sex: M C Admitted: 03/01/25 Test Reason : TACHYCARDIA Blood Pressure : */* mmHG Vent. Rate : 160 BPM Atrial Rate : * BPM P-R Int : * ms QRS Dur : 78 ms QT Int : 306 ms P-R-T Axes : * 66 82 degrees QTcB Int : 499 ms Critical Test Result: High HR Atrial fibrillation with rapid ventricular response Nonspecific ST and T wave abnormality Abnormal ECG When compared with ECG of 01-Mar-2025 01:38, Atrial fibrillation has replaced Sinus rhythm Confirmed by Delmar Lofton ([id number]), commissioning editor KENA ALICEA ([id number]) on 03/08/2025 10:12:58 AM Referred By: SAMI Confirmed By: Delmar Lofton 03/08/25 1013 Date Delmar Lofton MD CC: Dr. Marissa Gallardo MD; Dr. Pj Roper DO; [facility] Signed Normal [facility] Basic Metabolic Profile (BMP )on 03-06-2025 BUN/CRE 23.7 RATIO High 10-20 [facility] Comment on above: Performed By: #### L 503.6005, L503.7505, L501.4021 #### [facility] [address] [place], [address] Calcium [Mass/Vol] 9.0 mg/dL Normal 7.6-11.0 [facility] Comment on above: Performed By: #### L 503.6005, L503.7505, L501.4021 #### [facility] [address] [place], [address] Chloride [Moles/Vol] 89 mmol/L Low 98-108 [facility] Comment on above: Performed By: #### L 503.6005, L503.7505, L501.4021 #### [facility] [address] [place], [address] CO2 [Moles/Vol] 26.8 mmol/L Normal 21.0-32.0 [facility] Comment on above: Performed By: #### L 503.6005, L503.7505, L501.4021 #### [facility] [address] [place], [address] Creatinine [Mass/Vol] 0.74 mg/dL Normal 0.70-1.20 [facility] Comment on above: Performed By: #### L 503.6005, L503.7505, L501.4021 #### [facility] [address] [place], [address] ECRCL 78.64 ml/min Normal 50-250 [facility] Comment on above: Performed By: #### L 503.6005, L503.7505, L501.4021 #### [facility] [address] [place], [address] GAP 14 Normal 5-15 [facility] Comment on above: Performed By: #### L 503.6005, L503.7505, L501.4021 #### [facility] [address] [place], [address] GFR/1.73 sq M.predicted among non-blacks MDRD (S/P/Bld) [Vol rate/Area] 98 mL/min/{1.73_m2} Normal >60 [facility] Comment on above: Result Comment: mL/m in/1.73m2 CKD-EPI Creatinine Equation (2020) Performed By: #### L 503.6005, L503.7505, L501.4021 #### [facility] [address] [place], [address] Glucose [Mass/Vol] 112 mg/dL High 70-99 [facility] Comment on above: Performed By: #### L 503.6005, L503.7505, L501.4021 #### [facility] [address] [place], [address] Potassium [Moles/Vol] 3.8 mmol/L Normal 3.3-5.1 [facility] Comment on above: Performed By: #### L 503.6005, L503.7505, L501.4021 #### [facility] [address] [place], [address] Sodium [Moles/Vol] 130 mmol/L Low 133-145 [facility] Comment on above: Performed By: #### L 503.6005, L503.7505, L501.4021 #### [facility] [address] [place], [address] Urea nitrogen [Mass/Vol] 18 mg/dL Normal 4-19 [facility] Comment on above: Performed By: #### L 503.6005, L503.7505, L501.4021 #### [facility] [address] [place], [address] CBC W/Diff, Automatedon 09-0 -2024 Absolute Lymph 1.31 X10 3/uL Normal 0.83-4.51 [facility] Comment on above: Performed By: #### L 503.6005, L503.7505, L501.4021 #### [facility] [address] [place], [address] Absolute Neut 10.5 X10 3/uL High 2.0-7.7 [facility] Comment on above: Performed By: #### L 503.6005, L503.7505, L501.4021 #### [facility] [address] [place], [address] Basic Metabolic Profile (BMP )on 03-05-2025 BUN/CRE 20.3 RATIO High 10-20 [facility] Comment on above: Performed By: #### L 503.6005, L503.7505, L501.4021 #### [facility] [address] [place], [address] Calcium [Mass/Vol] 8.9 mg/dL Normal 7.6-11.0 [facility] Comment on above: Performed By: #### L 503.6005, L503.7505, L501.4021 #### [facility] [address] [place], [address] Chloride [Moles/Vol] 90 mmol/L Low 98-108 [facility] Comment on above: Performed By: #### L 503.6005, L503.7505, L501.4021 #### [facility] [address] [place], [address] CO2 [Moles/Vol] 29.7 mmol/L Normal 21.0-32.0 [facility] Comment on above: Performed By: #### L 503.6005, L503.7505, L501.4021 #### [facility] [address] [place], [address] Creatinine [Mass/Vol] 0.81 mg/dL Normal 0.70-1.20 [facility] Comment on above: Performed By: #### L 503.6005, L503.7505, L501.4021 #### [facility] [address] [place], [address] ECRCL 77.67 ml/min Normal 50-250 [facility] Comment on above: Performed By: #### L 503.6005, L503.7505, L501.4021 #### [facility] [address] [place], [address] GAP 13 Normal 5-15 [facility] Comment on above: Performed By: #### L 503.6005, L503.7505, L501.4021 #### [facility] [address] [place], [address] GFR/1.73 sq M.predicted among non-blacks MDRD (S/P/Bld) [Vol rate/Area] 95 mL/min/{1.73_m2} Normal >60 [facility] Comment on above: Result Comment: mL/m in/1.73m2 CKD-EPI Creatinine Equation (2020) Performed By: #### L 503.6005, L503.7505, L501.4021 #### [facility] [address] [place], [address] Glucose [Mass/Vol] 82 mg/dL Normal 70-99 [facility] Comment on above: Performed By: #### L 503.6005, L503.7505, L501.4021 #### [facility] [address] [place], [address] Potassium [Moles/Vol] 3.2 mmol/L Low 3.3-5.1 [facility] Comment on above: Performed By: #### L 503.6005, L503.7505, L501.4021 #### [facility] [address] [place], [address] Sodium [Moles/Vol] 133 mmol/L Normal 133-145 [facility] Comment on above: Performed By: #### L 503.6005, L503.7505, L501.4021 #### [facility] [address] [place], [address] Urea nitrogen [Mass/Vol] 17 mg/dL Normal 4-19 [facility] Comment on above: Performed By: #### L 503.6005, L503.7505, L501.4021 #### [facility] [address] [place], [address] CBC W/Diff, Automatedon 09-0 5-2025 Absolute Lymph 1.50 X10 3/uL Normal 0.83-4.51 [facility] Comment on above: Performed By: #### L 503.6005, L503.7505, L501.4021 #### [facility] [address] [place], [address] Absolute Neut 9.8 X10 3/uL High 2.0-7.7 [facility] Comment on above: Performed By: #### L 503.6005, L503.7505, L501.4021 #### [facility] [address] [place], [address] BAND 2 Normal 0-5 [facility] Comment on above: Performed By: #### L 503.6005, L503.7505, L501.4021 #### [facility] [address] [place], [address] Lymphocytes (Bld) [#/Vol] 13 10*3/uL Low 19-41 [facility] Comment on above: Performed By: #### L 503.6005, L503.7505, L501.4021 #### [facility] [address] [place], [address] MONOCYTE 2 Normal 0-10 [facility] Comment on above: Performed By: #### L 503.6005, L503.7505, L501.4021 #### [facility] [address] [place], [address] PLT EST SLT INC Normal ADEQ [facility] Comment on above: Performed By: #### L 503.6005, L503.7505, L501.4021 #### [facility] [address] [place], [address] RED CELL MORPH NORM C+C Normal NORM C C [facility] Comment on above: Performed By: #### L 503.6005, L503.7505, L501.4021 #### [facility] [address] [place], [address] SEGS 83 High 47-70 [facility] Comment on above: Performed By: #### L 503.6005, L503.7505, L501.4021 #### [facility] [address] [place], [address] TOTAL CELLS 100 Normal MANUAL DIFF [facility] Comment on above: Performed By: #### L 503.6005, L503.7505, L501.4021 #### [facility] [address] [place], [address] Erythrocyte morphology asses smentOrdered By: Zackery Soares on 03-05-2025 RBC morphology finding Nom (Bld) NORM C+C NORMAL NORM C&C [facility] Basic Metabolic Profile (BMP )on 03-04-2025 BUN/CRE 25.1 RATIO High 10-20 [facility] Comment on above: Performed By: #### L 503.6005, L503.7505, L501.4021 #### [facility] [address] [place], [address] Calcium [Mass/Vol] 8.7 mg/dL Normal 7.6-11.0 [facility] Comment on above: Performed By: #### L 503.6005, L503.7505, L501.4021 #### [facility] [address] [place], [address] Chloride [Moles/Vol] 91 mmol/L Low 98-108 [facility] Comment on above: Performed By: #### L 503.6005, L503.7505, L501.4021 #### [facility] [address] [place], [address] CO2 [Moles/Vol] 26.8 mmol/L Normal 21.0-32.0 [facility] Comment on above: Performed By: #### L 503.6005, L503.7505, L501.4021 #### [facility] [address] [place], [address] Creatinine [Mass/Vol] 0.74 mg/dL Normal 0.70-1.20 [facility] Comment on above: Performed By: #### L 503.6005, L503.7505, L501.4021 #### [facility] [address] [place], [address] ECRCL 78.64 ml/min Normal 50-250 [facility] Comment on above: Performed By: #### L 503.6005, L503.7505, L501.4021 #### [facility] [address] [place], [address] GAP 13 Normal 5-15 [facility] Comment on above: Performed By: #### L 503.6005, L503.7505, L501.4021 #### [facility] [address] [place], [address] GFR/1.73 sq M.predicted among non-blacks MDRD (S/P/Bld) [Vol rate/Area] 98 mL/min/{1.73_m2} Normal >60 [facility] Comment on above: Result Comment: mL/m in/1.73m2 CKD-EPI Creatinine Equation (2020) Performed By: #### L 503.6005, L503.7505, L501.4021 #### [facility] [address] [place], [address] Glucose [Mass/Vol] 93 mg/dL Normal 70-99 [facility] Comment on above: Performed By: #### L 503.6005, L503.7505, L501.4021 #### [facility] [address] [place], [address] Potassium [Moles/Vol] 3.5 mmol/L Normal 3.3-5.1 [facility] Comment on above: Performed By: #### L 503.6005, L503.7505, L501.4021 #### [facility] [address] [place], [address] Sodium [Moles/Vol] 131 mmol/L Low 133-145 [facility] Comment on above: Performed By: #### L 503.6005, L503.7505, L501.4021 #### [facility] [address] [place], [address] Urea nitrogen [Mass/Vol] 19 mg/dL Normal 4-19 [facility] Comment on above: Performed By: #### L 503.6005, L503.7505, L501.4021 #### [facility] [address] [place], [address] Blood eosinophils/100 leukoc ytesOrdered By: Zackery Soares on 03-04-2025 Eosinophils/100 WBC (Bld) 2 % 0-5 [facility] CBC W/Diff, Automatedon Absolute Lymph 1.00 X10 3/uL Normal 0.83-4.51 [facility] Comment on above: Performed By: #### L 503.6005, L503.7505, L501.4021 #### [facility] [address] [place], [address] Absolute Neut 9.3 X10 3/uL High 2.0-7.7 [facility] Comment on above: Performed By: #### L 503.6005, L503.7505, L501.4021 #### [facility] [address] [place], [address] BAND 2 Normal 0-5 [facility] Comment on above: Performed By: #### L 503.6005, L503.7505, L501.4021 #### [facility] [address] [place], [address] Eosinophils/100 WBC (Bld) 2 % Normal 0-5 [facility] Comment on above: Performed By: #### L 503.6005, L503.7505, L501.4021 #### [facility] [address] [place], [address] Lymphocytes (Bld) [#/Vol] 9 10*3/uL Low 19-41 [facility] Comment on above: Performed By: #### L 503.6005, L503.7505, L501.4021 #### [facility] [address] [place], [address] META 2 High 0-1 [facility] Comment on above: Performed By: #### L 503.6005, L503.7505, L501.4021 #### [facility] [address] [place], [address] Metamyelocytes/100 WBC (Bld) 1 % High 0-0 [facility] Comment on above: Performed By: #### L 503.6005, L503.7505, L501.4021 #### [facility] [address] [place], [address] MONOCYTE 3 Normal 0-10 [facility] Comment on above: Performed By: #### L 503.6005, L503.7505, L501.4021 #### [facility] [address] [place], [address] SEGS 81 High 47-70 [facility] Comment on above: Performed By: #### L 503.6005, L503.7505, L501.4021 #### [facility] [address] [place], [address] TOTAL CELLS 100 Normal MANUAL DIFF [facility] Comment on above: Performed By: #### L 503.6005, L503.7505, L501.4021 #### [facility] [address] [place], [address] Magnesiumon 03-04-2025 Magnesium [Mass/Vol] 1.6 mg/dL Normal 1.5-2.2 [facility] Comment on above: Performed By: #### L 503.6005, L503.7505, L501.4021 #### [facility] [address] [place], [address] Phosphoruson 03-04-2025 Phosphate [Mass/Vol] 3.1 mg/dL Normal 2.7-4.5 [facility] Comment on above: Performed By: #### L 503.6005, L503.7505, L501.4021 #### [facility] [address] [place], [address] Basic Metabolic Profile (BMP )on 03-03-2025 BUN/CRE 27.1 RATIO High 10-20 [facility] Comment on above: Performed By: #### L 503.6005, L503.7505, L501.4021 #### [facility] [address] [place], [address] Calcium [Mass/Vol] 9.2 mg/dL Normal 7.6-11.0 [facility] Comment on above: Performed By: #### L 503.6005, L503.7505, L501.4021 #### [facility] [address] [place], [address] Chloride [Moles/Vol] 93 mmol/L Low 98-108 [facility] Comment on above: Performed By: #### L 503.6005, L503.7505, L501.4021 #### [facility] [address] [place], [address] CO2 [Moles/Vol] 26.5 mmol/L Normal 21.0-32.0 [facility] Comment on above: Performed By: #### L 503.6005, L503.7505, L501.4021 #### [facility] [address] [place], [address] Creatinine [Mass/Vol] 0.73 mg/dL Normal 0.70-1.20 [facility] Comment on above: Performed By: #### L 503.6005, L503.7505, L501.4021 #### [facility] [address] [place], [address] ECRCL 78.64 ml/min Normal 50-250 [facility] Comment on above: Performed By: #### L 503.6005, L503.7505, L501.4021 #### [facility] [address] [place], [address] GAP 12 Normal 5-15 [facility] Comment on above: Performed By: #### L 503.6005, L503.7505, L501.4021 #### [facility] [address] [place], [address] GFR/1.73 sq M.predicted among non-blacks MDRD (S/P/Bld) [Vol rate/Area] 98 mL/min/{1.73_m2} Normal >60 [facility] Comment on above: Result Comment: mL/m in/1.73m2 CKD-EPI Creatinine Equation (2020) Performed By: #### L 503.6005, L503.7505, L501.4021 #### [facility] [address] [place], [address] Glucose [Mass/Vol] 99 mg/dL Normal 70-99 [facility] Comment on above: Performed By: #### L 503.6005, L503.7505, L501.4021 #### [facility] [address] [place], [address] Potassium [Moles/Vol] 3.9 mmol/L Normal 3.3-5.1 [facility] Comment on above: Performed By: #### L 503.6005, L503.7505, L501.4021 #### [facility] [address] [place], [address] Sodium [Moles/Vol] 131 mmol/L Low 133-145 [facility] Comment on above: Performed By: #### L 503.6005, L503.7505, L501.4021 #### [facility] [address] [place], [address] Urea nitrogen [Mass/Vol] 20 mg/dL High 4-19 [facility] Comment on above: Performed By: #### L 503.6005, L503.7505, L501.4021 #### [facility] [address] [place], [address] Blood promyelocytes/100 leuk ocytesOrdered By: Javid Loera on 03-03-2025 Promyelocytes/100 WBC (Bld) 1 % High 0-0 [facility] CBC W/Diff, Automatedon 09-0 Absolute Lymph 0.50 X10 3/uL Low 0.83-4.51 [facility] Comment on above: Performed By: #### L 503.6005, L503.7505, L501.4021 #### [facility] [address] [place], [address] Absolute Neut 10.3 X10 3/uL High 2.0-7.7 [facility] Comment on above: Performed By: #### L 503.6005, L503.7505, L501.4021 #### [facility] [address] [place], [address] Culture, Blood (WB)on 2024 CUB Blood cultures x2, from two different sites No growth in 5 days. Normal [facility] Comment on above: Performed By: #### L 503.6005, L503.7505, L501.4021 #### [facility] [address] [place], [address] Phosphoruson 03-03-2025 Phosphate [Mass/Vol] 3.1 mg/dL Normal 2.7-4.5 [facility] Comment on above: Performed By: #### L 503.6005, L503.7505, L501.4021 #### [facility] [address] [place], [address] Bedside Glucoseon 03-02-2025 FINGERSTICK GLU 113 mg/dL High 74-106 [facility] Comment on above: Result Comment: ABIOLA COON OF PATIENT CARE PER NURSING PROTOCOL Performed By: #### L 499.0043 #### [facility] [address] [place], [address] Bilirubin, totalOrdered By: Kavita Myles on 03-02-2025 Bilirubin [Mass/Vol] 0.41 mg/dL 0.00-1.30 [facility] Blood schistocyte detection by light microscopyOrdered By: Kavita Myles on 03-02-2025 Schistocytes LM Ql (Bld) RARE [facility] CBC W/Diff, Automatedon PATH REV May foll [facility] Comment on above: Performed By: #### L 500.4050, L501.5200, L100.0100, L501.9520 #### [facility] [address] [place], [address] SCHISTOCYTES RARE [facility] Comment on above: Performed By: #### L 500.4050, L501.5200, L100.0100, L501.9520 #### [facility] [address] [place], [address] Anisocytosis Ql (Bld) 1+ Normal [facility] Comment on above: Performed By: #### L 500.4050, L501.5200, L100.0100, L501.9520 #### [facility] [address] [place], [address] TEAR DROP RARE Normal [facility] Comment on above: Performed By: #### L 500.4050, L501.5200, L100.0100, L501.9520 #### [facility] [address] [place], [address] Absolute Lymph 0.68 X10 3/uL Low 0.83-4.51 [facility] Comment on above: Performed By: #### L 500.4050, L501.5200, L100.0100, L501.9520 #### [facility] [address] [place], [address] Absolute Neut 12.2 X10 3/uL High 2.0-7.7 [facility] Comment on above: Performed By: #### L 500.4050, L501.5200, L100.0100, L501.9520 #### [facility] [address] [place], [address] Lymphocytes (Bld) [#/Vol] 5 10*3/uL Low 19-41 [facility] Comment on above: Performed By: #### L 500.4050, L501.5200, L100.0100, L501.9520 #### [facility] [address] [place], [address] META 1 Normal 0-1 [facility] Comment on above: Performed By: #### L 500.4050, L501.5200, L100.0100, L501.9520 #### [facility] [address] [place], [address] Metamyelocytes/100 WBC (Bld) 1 % High 0-0 [facility] Comment on above: Performed By: #### L 500.4050, L501.5200, L100.0100, L501.9520 #### [facility] [address] [place], [address] MONOCYTE 3 Normal 0-10 [facility] Comment on above: Performed By: #### L 500.4050, L501.5200, L100.0100, L501.9520 #### [facility] [address] [place], [address] SEGS 90 High 47-70 [facility] Comment on above: Performed By: #### L 500.4050, L501.5200, L100.0100, L501.9520 #### [facility] [address] [place], [address] TOTAL CELLS 100 Normal MANUAL DIFF [facility] Comment on above: Performed By: #### L 500.4050, L501.5200, L100.0100, L501.9520 #### [facility] [address] [place], [address] Comprehensive Metabolic Prof coon 03-02-2025 Albumin [Mass/Vol] 2.8 g/dL Low 3.4-4.8 [facility] Comment on above: Performed By: #### L 500.4050, L501.5200, L100.0100, L501.9520 #### [facility] [address] [place], [address] Albumin/Globulin [Mass ratio] 0.8 {ratio} Low 0.9-2.4 [facility] Comment on above: Performed By: #### L 500.4050, L501.5200, L100.0100, L501.9520 #### [facility] [address] [place], [address] ALK PHOS 109 U/L Normal 40-129 [facility] Comment on above: Performed By: #### L 500.4050, L501.5200, L100.0100, L501.9520 #### [facility] [address] [place], [address] ALT [Catalytic activity/Vol] 18 U/L Normal <=46 [facility] Comment on above: Performed By: #### L 500.4050, L501.5200, L100.0100, L501.9520 #### [facility] [address] [place], [address] AST [Catalytic activity/Vol] 40 U/L High <=37 [facility] Comment on above: Performed By: #### L 500.4050, L501.5200, L100.0100, L501.9520 #### [facility] [address] [place], [address] Bilirubin [Mass/Vol] 0.41 mg/dL Normal 0.00-1.30 [facility] Comment on above: Performed By: #### L 500.4050, L501.5200, L100.0100, L501.9520 #### [facility] [address] [place], [address] BUN/CRE 20.6 RATIO High 10-20 [facility] Comment on above: Performed By: #### L 500.4050, L501.5200, L100.0100, L501.9520 #### [facility] [address] [place], [address] Calcium [Mass/Vol] 9.0 mg/dL Normal 7.6-11.0 [facility] Comment on above: Performed By: #### L 500.4050, L501.5200, L100.0100, L501.9520 #### [facility] [address] [place], [address] Chloride [Moles/Vol] 93 mmol/L Low 98-108 [facility] Comment on above: Performed By: #### L 500.4050, L501.5200, L100.0100, L501.9520 #### [facility] [address] [place], [address] CO2 [Moles/Vol] 26.1 mmol/L Normal 21.0-32.0 [facility] Comment on above: Performed By: #### L 500.4050, L501.5200, L100.0100, L501.9520 #### [facility] [address] [place], [address] Creatinine [Mass/Vol] 0.80 mg/dL Normal 0.70-1.20 [facility] Comment on above: Performed By: #### L 500.4050, L501.5200, L100.0100, L501.9520 #### [facility] [address] [place], [address] ECRCL 78.64 ml/min Normal 50-250 [facility] Comment on above: Performed By: #### L 500.4050, L501.5200, L100.0100, L501.9520 #### [facility] [address] [place], [address] GAP 14 Normal 5-15 [facility] Comment on above: Performed By: #### L 500.4050, L501.5200, L100.0100, L501.9520 #### [facility] [address] [place], [address] GFR/1.73 sq M.predicted among non-blacks MDRD (S/P/Bld) [Vol rate/Area] 96 mL/min/{1.73_m2} Normal >60 [facility] Comment on above: Result Comment: mL/m in/1.73m2 CKD-EPI Creatinine Equation (2020) Performed By: #### L 500.4050, L501.5200, L100.0100, L501.9520 #### [facility] [address] [place], [address] Globulin (S) [Mass/Vol] 3.4 g/dL Normal 2.2-4.2 [facility] Comment on above: Performed By: #### L 500.4050, L501.5200, L100.0100, L501.9520 #### [facility] [address] [place], [address] Glucose [Mass/Vol] 147 mg/dL High 70-99 [facility] Comment on above: Performed By: #### L 500.4050, L501.5200, L100.0100, L501.9520 #### [facility] [address] [place], [address] Potassium [Moles/Vol] 3.9 mmol/L Normal 3.3-5.1 [facility] Comment on above: Performed By: #### L 500.4050, L501.5200, L100.0100, L501.9520 #### [facility] [address] [place], [address] Sodium [Moles/Vol] 133 mmol/L Normal 133-145 [facility] Comment on above: Performed By: #### L 500.4050, L501.5200, L100.0100, L501.9520 #### [facility] [address] [place], [address] T PROT 6.2 g/dL Normal 5.9-8.4 [facility] Comment on above: Performed By: #### L 500.4050, L501.5200, L100.0100, L501.9520 #### [facility] [address] [place], [address] Urea nitrogen [Mass/Vol] 16 mg/dL Normal 4-19 [facility] Comment on above: Performed By: #### L 500.4050, L501.5200, L100.0100, L501.9520 #### [facility] [address] [place], [address] Echocardiogram study reportO rdered By: Jovon Cisneros on 03-02-2025 Study report [facility] [address] [place] [address] Echo Complete W/ Contrast 03/02/25 0913 MR#: [id number] Acct: [id number] Name: EMETERIO CHENEY Rep #:[id number] : 1955 69 From: Jovon Cisneros MD Attending Dr: Dr. Javid Loera MD Status: ADM IN Ordering Dr: Kavita Myles MD Date: Location: U Sex: M C Admitted: 03/01/25 Reason For Study Reason For Study: Arrhythmia, Tachycardia, Fluid overload Procedure This was a 2D Doppler, Color Flow transthoracic echocardiogram. Contrast injection was performed. The study was technically difficult. The study was technically limited. Exam performed portable in patient room. Left Ventricle Normal LV size. Moderate global left ventricular systolic dysfunction. Stage 1 diastolic dysfunction. The left ventricular ejection fraction is 35 %. Right Ventricle Normal RV size. Normal systolic function. Atria The left and right atria are normal. Mitral Valve The mitral valve chordae are thickened and/or calcified. Mild diffuse mitral valve thickening. There is no mitral valve stenosis. Tricuspid Valve Normal tricuspid valve. Mild (1+) tricuspid valve insufficiency. Pulmonary artery systolic pressure is 28 mmHg. Aortic Valve Trisinus/trileaflet aortic valve. Pulmonic Valve The pulmonic valve is not well visualized. Great Vessels The aortic root is not well visualized. Pericardium/Pleural No pericardial effusion. Medication Diluted definity 2ml given slow IV push to enhance endocardial definition. MMode/2D Measurements & Calculations LVIDd: 3.9 cm IVSd: 1.1 cm LAV(MOD-sp2): 18.7 ml LVIDs: 3.3 cm LVPWd: 1.1 cm FS: 16.0 % Time Measurements MV dec time: 0.16 sec Doppler Measurements & Calculations MV E max rupinder: 48.1 cm/sec Lat Peak E' Rupinder: 6.8 cm/sec Med Peak E' Rupinder: 7.5 cm/sec MV A max rupinder: 61.0 cm/sec E/E' lat: 7.1 E/E' med: 6.4 MV E/A: 0.79 ____ Ao V2 max: 70.8 cm/sec LV V1 max: 50.4 cm/sec MV dec slope: 308.4 cm/sec2 Ao max P.0 mmHg LV V1 max P.0 mmHg Ao V2 mean: 51.0 cm/sec Ao mean P.1 mmHg Ao V2 VTI: 9.6 cm TR max rupinder: 221.9 cm/sec TR max P.1 mmHg ECHO/Echo Complete W/ Contrast Interpretation Summary Moderate global left ventricular systolic dysfunction. The left ventricular ejection fraction is 35 %. Stage 1 diastolic dysfunction. Mild (1+) tricuspid valve insufficiency. The study was technically difficult. Contrast injection was performed. Ordering Physician: Kavita Myles Referring Physician: [facility] Performed By: Ankita Prather, JUAN DIEGO, RVT 03/02/25 1233 Date _ Jovon Cisneros MD CC: Dr. Javid Loera MD; Dr. Kavita Myles MD; [facility] ~ Date Dictated: 03/02/25912 Date Transcribed: 03/02/25 123 Senior Net Architect: Signed [facility] Work Phone: Electrocardiogram reportOrde red By: Delmar Lofton on 03-02-2025 EKG study [facility] [address] [place] [address] 12 Lead EKG 03/01/258 MR#: [id number] Acct: [id number] Name: EMETERIO CHENEY Rep #:[id number] : 1955 69 From: Delmar bedoya MD Attending Dr: Dr. Javid Loera MD Status: ADM IN Ordering Dr: Kassi Baker DO Date: 0 03/01/25 Location: [facility] Sex: M C Admitted: 03/01/25 Test Reason : Blood Pressure : */* mmHG Vent. Rate : 140 BPM Atrial Rate : 140 BPM P-R Int : 140 ms QRS Dur : 76 ms QT Int : 300 ms P-R-T Axes : 49 46 64 degrees QTcB Int : 458 ms Critical Test Result: High HR , Arrhythmia Sinus tachycardia with frequent and consecutive Premature ventricular complexes Abnormal ECG Confirmed by Delmar Lofton ([id number]), commissioning editor KENA ALICEA ([id number]) on 03/02/2025 11:00:08 AM Referred By: Confirmed By: Delmar Lofton 03/02/25 1100 Date _ Delmar Lofton MD CC: Dr. Kassi Baker DO; Dr. Javid Loera MD; [facility] ~ Signed [facility] Other Phone: Laboratory - Chemistry and C hemistry - challengeOrdered By: Kavita Myles on 03-02-2025 AST [Catalytic activity/Vol] 40 U/L High <38 [facility] - Hematology and Cell countsOrdered By: Kavita Myles on 03-02-2025 Anisocytosis Ql (Bld) 1+ [facility] MR/CON.PCM.PAon 03-02-2025 MR/CON.PCM.PA [facility] Medical Records Department [address] [place] [address] Consultation - Palliative Care 03/02/25 1356 MR#: [id number] Acct: [id number] Name: EMETERIO CHENEY Rep #: [id number] : 1955 69 From: Leeann Julian PCP: [facility] Status:ADM IN Location: [place] [id number] [facility] Medical History Lung cancer Home Medications ???Medication ???Instructions ???Recorded ???Last Taken ???Type dexamethasone 4 mg tablet 4 mg PO DAILY unknown 03/02/25 Unk nown History empagliflozin 25 mg tablet 12.5 mg PO DAILY unknown 03/02/25 Unknown History (Jardiance) metoprolol succinate 25 mg 25 mg PO DAILY unknown 03/02/25 Un known History tablet,extended release 24 hr (Toprol XL) ondansetron 8 mg disintegrating 8 mg PO Q8H nausea 03/02/25 Unknow n History tablet oxycodone 5 mg capsule 5 mg PO Q4H pain 03/02/25 03/02/25 History Allergy/AdvReac Type Severity Reaction Status Date / Time No Known Allergies Allergy Verified 01/04/25 06:26 Social History Smoking Status: Former smoker Homelessness:: Sheltered Prior Cardiac Testing/Procedures Prior Cardiac Testing/Procedures: Echocardiogram (EF of 35%/Moderate global L ventricular systolic dysfunction) ROS ROS Narrative pt feels that his symptoms are being well controlled, at this time with Oxycodone 2.5mg PO [id number] Constitutional Constitutional: Reports as per HPI and weakness Eyes Eyes: Reports as per HPI ENT HEENT: Reports systems reviewed and no addt'l complaints, except as documented Cardiovascular Cardiovascular: Reports dyspnea at rest, dyspnea on exertion, fatigue and leg edema Respiratory/Chest Respiratory/Chest: Reports dyspnea on exertion, shortness of breath at rest and shortness of breath with exertion Gastrointestinal Gastrointestinal: Reports systems reviewed and no addt'l complaints, except as documented Genitourinary Genitourinary: Reports dribbling and urinary incontinence Integumentary Integumentary: Reports systems reviewed and no addt'l complaints, except as documented Neurologic Neurologic: Reports systems reviewed and no addt'l complaints, except as documented Psychiatric Psychiatric: Reports systems reviewed and no addt'l complaints, except as documented Hematologic/Lymphatic Hematologic/Lymphatic : Reports anemia Allergic/Immunologic Allergic/Immunologic: Reports systems reviewed and no addt'l complaints, except as documented Physical Exam Narrative shortness of breath Const oriented x3 General Appearance: cooperative HEENT normocephalic Mouth: dry mucous membranes Resp Effort and Inspection: tachypneic Auscultation: crackles bilateral and localized (left worse than right ) and diminished lung sounds Cardio Rate: tachycardic GI GI Narrative: hernia noted Extremity normal capillary refill Neuro Speech: speech normal Gait (Neuro): unable to assess gait Psych Psych Narrative: concerns for denial about the severity of his CA diagnosis. Some concern about his insight into his ability to call in famous doctors to heal his cancer. Charges/Coding Palliative Care Palliative Care: 36778 New Pt Consult 80+ min HPI Current admission Current Code Status: DNRCC-A Associated Diagnosis: Stage IV metastatic lung cancer Consult Data Date of Consult: 03/02/25 Location of consult: PCU Reason for referral: Goals of care Referral source: Dr. Loera Palliative care diagnosis (Summary list): Stage IV metastatic lung cancer, EF of 35% Palliative care services/treatment (Accepted, as consult): accepted Case discussed with referring provider: Luz Maria HPI Narrative HPI Narrative: Prior to meeting with the pt at bedside, I reviewed previous documentation, labs, radiological studies and well as diagnostic studies. I then met with the pt at bedside. I introduced myself to both Addy and his fiance , Valerie and the concept of palliative care, which they voluntarily accepted our services. I ask Addy what he knew of his diagnosis, in which he confirmed that his oncologist stated that he has completed 3 rounds of immunotherapy with no improvement in his cancer. They are not convinced that he will receive any further treatment from his oncologist. Addy continually talks about various doctors that have had great success with treatments Dr Segal and out of [place]. I did ask if he has reached out to these doctors and been accepted as a patient? He stated that he has not but states that he is going to have them contact the doctors here and they can tell them what to do. I explained to him that it typically doesn't work that way. He then talked about going to a cancer treatment center in (more content not included)... Normal [facility] Magnesiumon 03-02-2025 Magnesium [Mass/Vol] 1.7 mg/dL Normal 1.5-2.2 [facility] Comment on above: Performed By: #### L 500.4050, L501.5200, L100.0100, L501.9520 #### [facility] [address] [place], [place], [address] RESPIRATORY PANEL MOLECULARo n 03-02-2025 RP PANEL ADENOVIRUS Not Detected INFLUENZA A Not Detected INFLUENZA A (SUBTYPE H1) Not Detected INFLUENZA A (SUBTYPE H3) Not Detected INFLUENZA B Not Detected HUMAN METAPHNEUMO Not Detected PARAINFLUENZA 1 Not Detected PARAINFLUENZA 2 Not Detected PARAINFLUENZA 3 Not Detected PARAINFLUENZA 4 Not Detected RHINOVIRUS Not Detected RSV A Not Detected RSV B Not Detected Normal [facility] Comment on above: Performed By: #### L 503.6005, L503.7505, L501.4021 #### [facility] [address] [place], [place], [id number] Review by pathologistOrdered By: Kavita Myles on 03-02-2025 Pathologist review Jani (Unsp spec) [Interp] May foll [facility] Serum globulin measurementOr dered By: Kavita Myles on 03-02-2025 Globulin (S) [Mass/Vol] 3.4 g/dL 2.2-4.2 [facility] Serum or plasma alanine hein otransferase (ALT) measurementOrdered By: Kavita Myles on 03-02-2025 ALT [Catalytic activity/Vol] 18 U/L <47 [facility] Serum or plasma albumin vahe urement (mass/volume)Ordered By: Kavita Myles on 03-02-2025 Albumin [Mass/Vol] 2.8 g/dL Low 3.4-4.8 [facility] Serum or plasma albumin/glob ulin mass ratioOrdered By: Kavita Myles on 03-02-2025 Albumin/Globulin [Mass ratio] 0.8 {ratio} Low 0.9-2.4 [facility] Serum or plasma alkaline celio sphatase measurementOrdered By: Kavita Myles on 03-02-2025 ALP [Catalytic activity/Vol] 109 U/L 40-129 [facility] TSH DL <= 0.005 mIU/L QnOrde red By: Kavita Myles on 03-02-2025 TSH Qn 1.400 uIU/mL 0.300-4.200 [facility] Teardrop cell detectionOrder ed By: Kavita Myles on 03-02-2025 Dacrocytes LM Ql (Bld) RARE [facility] Thyroid Stim Hormone (TSH)on 03-02-2025 TSH 1.400 uIU/mL Normal 0.300-4.200 [facility] Comment on above: Performed By: #### L 500.4050, L501.5200, L100.0100, L501.9520 #### [facility] [address] [place], [place], [id number] Total proteinOrdered By: Chuck Myles on 03-02-2025 Protein [Mass/Vol] 6.2 g/dL 5.9-8.4 [facility] 12 Lead EKGon 03-01-2025 12 Lead EKG [facility] [address] [place] [address] 12 Lead EKG 03/01/25 0138 MR#: [id number] Acct: [id number] Name: EMETERIO CHENEY Rep #: [id number] : 1955 69 From: Delmar Lofton MD Attending Dr: Dr. Javid Loera MD Status : ADM IN Ordering Dr: Kassi Baker DO Date: 03/01/25 Location: [facility] Sex: M C Admitted: 03/01/25 Test Reason : Blood Pressure : */* mmHG Vent. Rate : 140 BPM Atrial Rate : 140 BPM P-R Int : 140 ms QRS Dur : 76 ms QT Int : 300 ms P-R-T Axes : 49 46 64 degrees QTcB Int : 458 ms Critical Test Result: High HR , Arrhythmia Sinus tachycardia with frequent and consecutive Premature ventricular complexes Abnormal ECG Confirmed by Delmar Lofton ([id number]), commissioning editor KENA ALICEA ([id number]) on 03/02/2025 11:00:08 AM Referred By: Confirmed By: Delmar Lofton 03/02/25 1100 Date Delmar Lofton MD CC: Dr. Kassi Baker DO; Dr. Javid Loera MD; [facility] Signed Normal [facility] Absolute lymphocyte countOrd ered By: Kassi Baker on 03-01-2025 Lymphocytes Auto (Unsp spec) [#/Vol] 0.69 10*3/uL Low 0.83-4.51 [facility] Absolute neutrophil countOrd ered By: Kassi Baker on 03-01-2025 Neutrophils (Bld) [#/Vol] 11.7 10*3/uL High 2.0-7.7 [facility] Anion gap in Serum or Plasma Ordered By: Kassi Baker on 03-01-2025 Anion gap [Moles/Vol] 14 mmol/L 5-15 [facility] Automated lymphocyte count a s percentage of total leukocytesOrdered By: Kassi Baker on 03-01-2025 Lymphocytes/100 WBC Auto (Unsp spec) 4.8 % Low 19-41 [facility] BUN/creatinine ratioOrdered By: Kassi Baker on 03-01-2025 Urea nitrogen/Creatinine [Mass ratio] 17.2 mg/mg 10- [facility] Basic Metabolic Profile (BMP )on 03-01-2025 BUN/CRE 17.2 RATIO Normal - [facility] Comment on above: Performed By: #### L 499.0043 #### [facility] [address] [place], [address] Calcium [Mass/Vol] 8.9 mg/dL Normal 7.6-11.0 [facility] Comment on above: Performed By: #### L 499.0043 #### [facility] [address] [place], [address] Chloride [Moles/Vol] 90 mmol/L Low 98-108 [facility] Comment on above: Performed By: #### L 499.0043 #### [facility] [address] [place], [address] CO2 [Moles/Vol] 22.6 mmol/L Normal 21.0-32.0 [facility] Comment on above: Performed By: #### L 499.0043 #### [facility] [address] [place], [address] Creatinine [Mass/Vol] 0.65 mg/dL Low 0.70-1.20 [facility] Comment on above: Performed By: #### L 499.0043 #### [facility] [address] [place], [address] ECRCL 89.24 ml/min Normal 50-250 [facility] Comment on above: Performed By: #### L 499.0043 #### [facility] [address] [place], [address] GAP 14 Normal 5-15 [facility] Comment on above: Performed By: #### L 499.0043 #### [facility] [address] [place], [address] GFR/1.73 sq M.predicted among non-blacks MDRD (S/P/Bld) [Vol rate/Area] 102 mL/min/{1.73_m2} Normal >60 [facility] Comment on above: Result Comment: mL/m in/1.73m2 CKD-EPI Creatinine Equation (2020) Performed By: #### L 499.0043 #### [facility] [address] [place], [address] Glucose [Mass/Vol] 90 mg/dL Normal 70-99 [facility] Comment on above: Performed By: #### L 499.0043 #### [facility] [address] [place], [address] Potassium [Moles/Vol] 4.2 mmol/L Normal 3.3-5.1 [facility] Comment on above: Performed By: #### L 499.0043 #### [facility] [address] [place], [address] Sodium [Moles/Vol] 126 mmol/L Low 133-145 [facility] Comment on above: Performed By: #### L 499.0043 #### [facility] [address] [place], [address] Urea nitrogen [Mass/Vol] 11 mg/dL Normal 4-19 [facility] Comment on above: Performed By: #### L 499.0043 #### [facility] [address] [place], [address] Basophil percentageOrdered B y: Kassi Baker on 03-01-2025 Basophils/100 WBC (Bld) 0.4 % 0-1 [facility] Blood cultureOrdered By: Nella Baker on 03-01-2025 Bacteria identified Cx Nom (Bld) No growth in 5 days. [facility] Bacteria identified Cx Nom (Bld) No growth in 5 days. [facility] CBC W/Diff, Automatedon 09- Absolute Lymph 0.69 X10 3/uL Low 0.83-4.51 [facility] Comment on above: Performed By: #### L 499.0043 #### [facility] [address] [place], [address] Absolute Neut 11.7 X10 3/uL High 2.0-7.7 [facility] Comment on above: Performed By: #### L 499.0043 #### [facility] [address] [place], [address] Basophils/100 WBC (Bld) 0.4 % Normal 0-1 [facility] Comment on above: Performed By: #### L 499.0043 #### [facility] [address] [place], [address] Eosinophils/100 WBC (Bld) 0.0 % Normal 0-5 [facility] Comment on above: Performed By: #### L 499.0043 #### [facility] [address] [place], [address] Erythrocyte distribution width (RBC) [Ratio] 15.4 % High 11.6-14.6 [facility] Comment on above: Performed By: #### L 499.0043 #### [facility] [address] [place], [address] Hematocrit (Bld) [Volume fraction] 31.5 % Low 40-54 [facility] Comment on above: Performed By: #### L 499.0043 #### [facility] [address] [place], [address] Hemoglobin (Bld) [Mass/Vol] 10.2 g/dL Low 13.0-16.5 [facility] Comment on above: Performed By: #### L 499.0043 #### [facility] [address] [place], [address] IG% 4.700 High 0.0-0.9 [facility] Comment on above: Result Comment: IG% - Immature Granulocytes (promyelocytes, myelocytes and metamyelocytes) > 1% indicates that a LEFT SHIFT is Present. Performed By: #### L 499.0043 #### [facility] [address] [place], [address] Lymphocytes/100 WBC (Bld) 4.8 % Low 19-41 [facility] Comment on above: Performed By: #### L 499.0043 #### [facility] [address] [place], [address] MCH (RBC) [Entitic mass] 27.1 pg Normal 27.0-32.0 [facility] Comment on above: Performed By: #### L 499.0043 #### [facility] [address] [place], [address] MCHC (RBC) [Mass/Vol] 32.4 g/dL Normal 32-36 [facility] Comment on above: Performed By: #### L 499.0043 #### [facility] [address] [place], [address] MCV (RBC) [Entitic vol] 83.8 fL Normal 80-94 [facility] Comment on above: Performed By: #### L 499.0043 #### [facility] [address] [place], [address] Monocytes/100 WBC (Bld) 8.9 % Normal 0-10 [facility] Comment on above: Performed By: #### L 499.0043 #### [facility] [address] [place], [address] Neutrophils/100 WBC (Bld) 81.2 % High 47-70 [facility] Comment on above: Performed By: #### L 499.0043 #### [facility] [address] [place], [address] Nucleated RBC (Bld) [#/Vol] 0 10*3/uL Normal 0-5 [facility] Comment on above: Performed By: #### L 499.0043 #### [facility] [address] [place], [address] Platelet mean volume (Bld) [Entitic vol] 9.4 fL Normal 6.2-12.0 [facility] Comment on above: Performed By: #### L 499.0043 #### [facility] [address] [place], [address] Platelets (Bld) [#/Vol] 459 10*3/uL High 150-450 [facility] Comment on above: Performed By: #### L 499.0043 #### [facility] [address] [place], [address] RBC (Bld) [#/Vol] 3.76 10*6/uL Low 4.6-6.2 [facility] Comment on above: Performed By: #### L 499.0043 #### [facility] [address] [place], [address] RDW SD 47.4 fl High 35.1-43.9 [facility] Comment on above: Performed By: #### L 499.0043 #### [facility] [address] [place], [address] WBC (Bld) [#/Vol] 14.4 10*3/uL High 4.4-11.0 [facility] Comment on above: Performed By: #### L 499.0043 #### [facility] [address] [place], [address] CTA Chest W/WO Contraston CTA Chest W/WO Contrast [facility] Imaging Services [address] [place], [place] [address] CTA Chest W/WO Contrast MR#: [id number] Acct: [id number] Name: EMETERIO CHENEY Rep #: [id number] : 1955 M 69 From: José Manuel tesfaye MD PCP: [facility] Status: PRE ER Study: CTA Chest W/WO Contrast Date of Exam: 03/01/25 Exam# [id number] Ordering Dr: Kassi Baker DO PROCEDURE: CTA [...] pulmonary embolus or aortic dissection. Reading Location: [place] [address] CC: Dr. Kassi Baker, DO; [facility] Senior Net Architect: Signed Normal [facility] Carbon dioxide, total [Moles /volume] in Central venous bloodOrdered By: Kassi Baker on 03-01-2025 CO2 [Moles/Vol] 22.6 mmol/L 21.0-32.0 [facility] Chloride assayOrdered By: Attila Baker on 03-01-2025 Chloride [Moles/Vol] 90 mmol/L Low 98-108 [facility] Echo Complete W/ Contraston 03-01-2025 Echo Complete W/ Contrast [facility] Services [address] [place] [address] Echo Complete W/ Contrast 03/02/25 0913 MR#: [id number] Acct: [id number] Name: EMETERIO CHENEY Rep #: [id number] : 1955 69 From: Jovon Cisneros MD Attending Dr: Dr. Javid Loera MD Status : ADM IN Ordering Dr: Kavita Myles MD Date: 03/01/25 Location: U Sex: M C Admitted: 03/01/25 Reason For Study Reason For Study: Arrhythmia, Tachycardia, Fluid overload Procedure This was a 2D Doppler, Color Flow transthoracic echocardiogram. Contrast injection was performed. The study was technically difficult. The study was technically limited. Exam performed portable in patient room. Left Ventricle Normal LV size. Moderate global left ventricular systolic dysfunction. Stage 1 diastolic dysfunction. The left ventricular ejection fraction is 35 %. Right Ventricle Normal RV size. Normal systolic function. Atria The left and right atria are normal. Mitral Valve The mitral valve chordae are thickened and/or calcified. Mild diffuse mitral valve thickening. There is no mitral valve stenosis. Tricuspid Valve Normal tricuspid valve. Mild (1+) tricuspid valve insufficiency. Pulmonary artery systolic pressure is 28 mmHg. Aortic Valve Trisinus/trileaflet aortic valve. Pulmonic Valve The pulmonic valve is not well visualized. Great Vessels The aortic root is not well visualized. Pericardium/Pleural No pericardial effusion. Medication Diluted definity 2ml given slow IV push to enhance endocardial definition. MMode/2D Measurements Calculations LVIDd: 3.9 cm IVSd: 1.1 cm LAV(MOD-sp2): 18.7 ml LVIDs: 3.3 cm LVPWd: 1.1 cm FS: 16.0 % Time Measurements MV dec time: 0.16 sec Doppler Measurements Calculations MV E max rupinder: 48.1 cm/sec Lat Peak E' Rupinder: 6.8 cm/sec Med Peak E' Rupinder: 7.5 cm/sec MV A max rupinder: 61.0 cm/sec E/E' lat: 7.1 E/E' med: 6.4 MV E/A: 0.79 Ao V2 max: 70.8 cm/sec LV V1 max: 50.4 cm/sec MV dec slope: 308.4 cm/sec2 Ao max P.0 mmHg LV V1 max P.0 mmHg Ao V2 mean: 51.0 cm/sec Ao mean P.1 mmHg Ao V2 VTI: 9.6 cm TR max rupinder: 221.9 cm/sec TR max P.1 mmHg ECHO/Echo Complete W/ Contrast Interpretation Summary Moderate global left ventricular systolic dysfunction. The left ventricular ejection fraction is 35 %. Stage 1 diastolic dysfunction. Mild (1+) tricuspid valve insufficiency. The study was technically difficult. Contrast injection was performed. Ordering Physician: Kavita Myles Referring Physician: [facility] Performed By: Ankita Prather RDCS, RVT 03/02/25 1233 Date Jovon Cisneros MD CC: Dr. Javid Loera MD; Dr. Kavita Myles MD; [facility] Date Dictated: 03/02/25912 Date Transcribed: 03/02/25 123 Senior Net Architect: Signed Normal [facility] Emergency Department Summary on 03-01-2025 Emergency Department Summary [facility] Medical Records Department [address] [place] [address] Emergency Department Summary 03/01/25 MR#: [id number] Acct: [id number] Name: EMETERIO CHENEY Rep #: [id number] : 1955 69 From: Kassi Baker DO PCP: [facility] Status:REG ER Location: ED HPI History [...] States he receives his care through the [facility] Medical History Lung cancer Home Medications [...] or tendern (more content not included)... Normal [facility] Eosinophil percentageOrdered By: Kassi Baker on 03-01-2025 Eosinophils/100 WBC (Bld) 0.0 % 0-5 [facility] Erythrocyte distribution wid th ratioOrdered By: Kassi Baker on 03-01-2025 Erythrocyte distribution width (RBC) [Ratio] 15.4 % High 11.6-14.6 [facility] Erythrocyte distribution wid th standard deviationOrdered By: Kassi Baker on 03-01-2025 Erythrocyte distribution width (RBC) [Ratio] 47.4 fl High 35.1-43.9 [facility] Glomerular filtration rate ( GFR) estimation/1.73 sq m using serum, plasma, or whole bOrdered By: Kassi Baker on 03-01-2025 GFR/1.73 sq M.predicted among non-blacks MDRD (S/P/Bld) [Vol rate/Area] 102 mL/min/{1.73_m2} >60 [facility] Comment on above: mL/min/1.73m2 CKD-EP I Creatinine Equation (2020) [facility] By: Kavita Myles on 03-01-2025 Glucose [Mass/Vol] 113 mg/dL High 74-106 [facility] Comment on above: MANAGEMENT OF PATIEN T CARE PER NURSING PROTOCOL H AND P Exam - [facility] 03-01-2025 H&P Exam - Hospitalist [facility] Medical Records Department [address] [facility] [place] [address] H P Exam - Hospitalist 03/01/25 1858 MR#: [id number] Acct: [id number] Name: EMETERIO CHENEY Rep #: [id number] : 1955 69 From: Kavita Myles MD PCP: [facility] Status:ADM IN Location: U [id number] HPI - General General Date of Admission: 03/01/25 Date of Service: 03/01/25 Chief Complaint: Shortness of breath HPI Narrative EMETERIO CHENEY, is a 69y/o male w/ hx of stage IV lung cancer not receiving any treatment because he was not responding to immunotherapy and symptomatic anemia who presented [facility] ED 03/01/2025 for shortness of breath especially in the mornings but over the past 3 days he has continued to worsen, also has mild wheezing and coughing. Also notes the past 2 weeks he has had increased swelling in his lower extremities. In the ED patient afebrile, patient with variable heart rate anywhere from 90s to 120s, blood pressure initially 106/92, respiratory rate 18 patient 98% on 3 L nasal cannula with a respiratory rate of 19. CBC with white blood cell count 14.4, hemoglobin 10.2 and platelet count 459. BMP with a sodium of 126, up from 120 in December, BUN of 11 and creatinine 0.65, Trop of 36 with 4-hour Trop of 29, and a proBNP of 2433. Lactic acid within normal limits. CTA obtained and showed mild increase in size of patient's left upper lobe/left hilar mass with increased cavitation consolidation as well as left pleural effusion, mild increase in size and number of pulmonary nodules, unchanged multifocal compression of the left pulmonary artery and branches. ED physician was concern for postobstructive pneumonia and fluid overload, patient received Rocephin and azithromycin as well as IV Lasix in the ED. Patient with [facility] and was supposed to be transferred however no beds for prolonged amount of time and [facility] okay with admission to our institution given lack of bed availability so hospitalist contacted for admission. Patient evaluated bedside. Patient reports he is still having shortness of breath but feels better than when he first arrived especially since he has been pain off fluid. He notes that he has been having shortness of breath and cough for a year and was diagnosed with stage IV lung cancer, usually he short of breath when he wakes up in the morning but then will improve throughout the day and some days will not feel too bad at all over the past 3 days he has not been improving throughout the day, does cough but has difficulty producing any sputum, also notes leg swelling for the past 2 weeks. He reports before his lung cancer diagnosis he had never been hospitalized and did not take any medications, denies smoking, only thing he takes at home currently is oxycodone as needed since his diagnosis. Denies any breathing treatments at home and does not wear home oxygen. He denies any chest pain, no fever at home, occasionally gets some abdominal pain but nothing significant, had been having problems with constipation but that has resolved, denies nausea. Denies problems with urination [facility] Medical History Lung cancer Home Medications ???Medication ???Instructions ???Recorded ???Last Taken ???Type Unobtainable 01/04/25 Unknown History Allergy/AdvReac Type Severity Reaction Status Date / Time No Known Allergies Allergy Verified 01/04/25 06:26 Social History Smoking Status: Former smoker ROS ROS Narrative General: Denies fever/chills HENT: Denies headache, denies stuffy nose, denies sore throat EYES: Denies changes in vision Resp: Cough but difficulty producing sputum, shortness of breath especially with exertion but does have some at rest Cardiac: Denies chest pain GI: Occasionally will have some abdominal pain, denies changes in bowel, denies nausea/vomiting : Denies changes in urination Extremity: Increased swelling in lower extremities MSK: Feels somewhat weak overall Neuro: Sometimes will get tingly feeling around his abdomen Heme: Denies any bleeding or bruising Skin: Denies rashes Psychiatric: Patient struggling with diagnosis and prognosis Vital Signs Vital Signs Vital Signs: 03/01/25 01:34 03/01/25 01:40 03/01/25 [...] 02:55 03/01/25 03:09 Temperature 98.4 F Temperature [place] (more content not included)... Normal [facility] Hematocrit Auto (Bld) [Volum e fraction]Ordered By: Kassi Baker on 03-01-2025 Hematocrit (Bld) [Volume fraction] 31.5 % Low 40-54 [facility] Hemoglobin measurementOrdere d By: Kassi Baker on 03-01-2025 Hemoglobin (Bld) [Mass/Vol] 10.2 g/dL Low 13.0-16.5 [facility] Immature granulocytes/100 WB C Auto (Bld)Ordered By: Kassi Baker on 03-01-2025 Immature granulocytes/100 WBC (Bld) 4.700 % High 0.0-0.9 [facility] Comment on above: IG% - Immature Granu locytes (promyelocytes, myelocytes and metamyelocytes) > 1% indicates that a LEFT SHIFT is Present. L501.4021on 03-01-2025 Trop T High Sen 36 ng/L High <=22 [facility] Comment on above: Performed By: #### L 503.0119, L503.3695, L501.4021 #### [facility] [address] [place], [address] Lactic Acidon 03-01-2025 Lactate [Moles/Vol] 1.5 mmol/L Normal 0.0-2.0 [facility] Comment on above: Order Comment: Y Performed By: #### L 503.6005, L503.7505, L501.4021 #### [facility] [address] [place], [address] Lactic acid measurementOrder ed By: Kassi Baker on 03-01-2025 Lactate [Moles/Vol] 1.5 mmol/L 0.0-2.0 [facility] Legionella Antigen Urineon 0 03-01-2025 LEGU Only Recommended for severe cases of pneumonia URINE, CLEAN CATCH Legionella Antigen result interpretation: L pneumo Ag Ur Ql Negative Presumptive negative for Legionella pneumophila serogroup 1 antigen in urine, suggesting no recent or current infection. Legionella Ag, Urine Negative (See interpretation below) Normal [facility] Comment on above: Performed By: #### L 503.6005, L503.7505, L501.4021 #### [facility] [address] [place], [address] MCV (mean corpuscular volume ) determinationOrdered By: Kassi Baker on 03-01-2025 MCV (RBC) [Entitic vol] 83.8 fL 80-94 [facility] Mean corpuscular hemoglobin (MCH) determinationOrdered By: Kassi Baker on 03-01-2025 MCH (RBC) [Entitic mass] 27.1 pg 27.0-32.0 [facility] Mean corpuscular hemoglobin concentration (MCHC) determinationOrdered By: Kassi Baker on 03-01-2025 MCHC (RBC) [Mass/Vol] 32.4 g/dL 32-36 [facility] Mean platelet volume determi nationOrdered By: Kassi Baker on 03-01-2025 Platelet mean volume (Bld) [Entitic vol] 9.4 fL 6.2-12.0 [facility] Monocyte percentageOrdered B y: Kassi Baker on 03-01-2025 Monocytes/100 WBC (Bld) 8.9 % 0-10 [facility] Natriuretic peptide.B prohor dada N-Terminal [Mass/volume] in Serum or PlasmaOrdered By: Kassi Baker on 03-01-2025 Natriuretic peptide.B prohormone N-Terminal [Mass/Vol] 2433 pg/mL High <900 [facility] Comment on above: Heart Failure Unlike ly: < 300 pg/mLHeart Failure Likely< 50 Years: > 450 pg/mL50-75 Years: > 900 pg/mL>75 Years: > 1800 pg/mL Neutrophil percentageOrdered By: Kassi Baker on 03-01-2025 Neutrophils/100 WBC (Bld) 81.2 % High 47-70 [facility] Nucleated red blood cell per centageOrdered By: Kassi Baker on 03-01-2025 Nucleated RBC/100 WBC (Bld) [Ratio] 0 % 0-5 [facility] Platelet countOrdered By: Attila Baker on 03-01-2025 Platelets (Bld) [#/Vol] 459 10*3/uL High 150-450 [facility] Potassium measurement (mass/ volume)Ordered By: Kassi Baker on 03-01-2025 Potassium (Unsp spec) [Mass/Vol] 4.2 mmol/L 3.3-5.1 [facility] Pro- Brain NATRIURETIC PEPTI Kar 03-01-2025 Natriuretic peptide B (Bld) [Mass/Vol] 2433 pg/mL High <=900 [facility] Comment on above: Result Comment: Hear t Failure Unlikely: < 300 pg/mL Heart Failure Likely < 50 Years: > 450 pg/mL 50-75 Years: > 900 pg/mL >75 Years: > 1800 pg/mL Performed By: #### L 503.6005, L503.7505, L501.4021 #### [facility] [address] [place], [place], [address] RBC Auto (Bld) [#/Vol]Ordere d By: Kassi Baker on 03-01-2025 RBC (Bld) [#/Vol] 3.76 10*6/uL Low 4.6-6.2 [facility] Respiratory pathogens detect ion panel by molecular detection methodOrdered By: Kavita Myles on 03-01-2025 Respiratory pathogens DNA and RNA panel MAKAYLA+probe (Resp) [facility] Serum creatinine measurement (mass/volume)Ordered By: Kassi Baker on 03-01-2025 Creatinine [Mass/Vol] 0.65 mg/dL Low 0.70-1.20 [facility] Serum glucose measurement (m ass/volume)Ordered By: Kassi Baker on 03-01-2025 Glucose [Mass/Vol] 90 mg/dL 70-99 [facility] Serum or plasma calcium vahe urement (mass/volume)Ordered By: Kassi Baker on 03-01-2025 Calcium [Mass/Vol] 8.9 mg/dL 7.6-11.0 [facility] Serum or plasma urea nitroge n measurement (mass/volume)Ordered By: Kassi Baker on 03-01-2025 Urea nitrogen [Mass/Vol] 11 mg/dL 4-19 [facility] Sodium levelOrdered By: Leonid Baker on 03-01-2025 Sodium [Moles/Vol] 126 mmol/L Low 133-145 [facility] Strep pneumoniae Antig(UR,CS F)on 03-01-2025 STPAG Comments: Only Recommended for severe cases of pneumonia URINE INTERPRETATION Strep pneumoniae Antig(UR,CSF) Negative Urine Presumptive negative for pneumococcal pneumonia, suggesting no current or recent pneumococcal infection. Infection due to S pneumoniae cannot be ruled out since the antigen present in the sample may be below the detection limit of the test. Strep pneumo Test Negative URINE (See interpretation below) Normal [facility] Comment on above: Performed By: #### L 503.6005, L503.7505, L501.4021 #### [facility] [address] [place], [address] Troponin T HS 2 HRon 025 Trop T High Sen 34 ng/L High <=22 [facility] Comment on above: Performed By: #### L 503.6005, L503.7505, L501.4021 #### [facility] [address] [place], [address] Troponin T HS 4 HRon 025 Trop T High Sen 29 ng/L High <=22 [facility] Comment on above: Performed By: #### L 499.0043 #### [facility] [address] [place], [address] Troponin T.cardiac [Mass/vol ume] in Serum or Plasma by High sensitivity methodOrdered By: Kassi Baker on 03-01-2025 Troponin T.cardiac High sensitivity method [Mass/Vol] 29 ng/L High <22 [facility] Troponin T.cardiac High sensitivity method [Mass/Vol] 34 ng/L High <22 [facility] Troponin T.cardiac High sensitivity method [Mass/Vol] 36 ng/L High <22 [facility] Comment on above: [place]: 22 [place] [address] Urine Legionella pneumophila antigen detectionOrdered By: Kavita Myles on 03-01-2025 L. pneumophila Ag Ql (U) [facility] White blood cell (WBC) count Ordered By: Kassi Baker on 03-01-2025 WBC (Bld) [#/Vol] 14.4 10*3/uL High 4.4-11.0 [facility] CBC W/Diff, Automatedon 12-30 PATH REV Reviewed Normal [facility] Comment on above: Result Comment: SEE REPORT IN PATIENT'S EMR AMENDED REPORT 01/20/25 1116 PATH REV previously reported as: October Performed By: #### L 503.6005, L503.7505, L501.4021 #### [facility] [address] [place], [address] Culture, Blood (WB)on 2024 CUB Blood cultures x2, from two different sites No growth in 5 days. Normal [facility] Comment on above: Performed By: #### L 499.0043 #### [facility] [address] [place], [address] Urine Cultureon 01-06-2025 URC Below infection level. Mixed Gram Positive Organisms Mcclusky Count 1000-10,000 MIXC Mixed contaminants. Submit a new specimen if indicated. Normal [facility] Comment on above: Performed By: #### L 499.0043 #### [facility] [address] [place], [address] 12 Lead EKGon 01-04-2025 12 Lead EKG [facility] Cardiovascular Services [address] [address] 12 Lead EKG 01/04/25 0636 MR#: [id number] Acct: [id number] Name: EMETERIO CHENEY Rep #: [id number] : 1955 69 From: Ramy Henderson MD [...] ECG Confirmed by TIFFANI SANZ, RAMY ([id number]), commissioning editor URIAH BUITRAGO ([id number]) on 01/05/2025 8:23:44 AM Referred By: Confirmed By: RAMY HENDERSON MD 01/05/25 0823 Date Ramy Henderson MD CC: Dr. Ned Harmon, ; [facility] Signed Normal [facility] Abdomen/Pelvis W IV Cont ONL Yon 01-04-2025 Abdomen/Pelvis W IV Cont ONLY [facility] Imaging Services [address] [place] [address] Abdomen/Pelvis W IV Cont ONLY MR#: [id number] Acct: [id number] Name: NONIEMETERIO Clair Rep #: [id number] : 1955 M 69 From: Carlos Bee MD PCP: [facility] Status: REG ER Study: Abdomen/Pelvis W IV Cont ONLY Date of Exam: Exam# [id number] Ordering Dr: Ned Harmon DO PROCEDURE: ABDOMEN/PELVIS [...] 4. Other findings as noted. Reading Location: [id number] CC: Dr. Ned Harmon, DO; [facility] Senior Net Architect: Signed Normal [facility] Absolute lymphocyte countOrd ered By: Ned Harmon on 01-04-2025 Lymphocytes Auto (Unsp spec) [#/Vol] 0.43 10*3/uL Low 0.83-4.51 [facility] Absolute neutrophil countOrd ered By: Ned Harmon on 01-04-2025 Neutrophils (Bld) [#/Vol] 9.0 10*3/uL High 2.0-7.7 [facility] Activated partial thrombopla stin time (aPTT) in platelet poor plasma by coagulation aOrdered By: Ned Harmon on 01-04-2025 aPTT Coag (PPP) [Time] 35.7 s 24.1-36.2 [facility] Anion gap in Serum or Plasma Ordered By: Ned Harmon on 01-04-2025 Anion gap [Moles/Vol] 14 mmol/L 5-15 [facility] BUN/creatinine ratioOrdered By: Ned Harmon on 01-04-2025 Urea nitrogen/Creatinine [Mass ratio] 13.2 mg/mg 10-20 [facility] Bilirubin Test strip Ql (U)O rdered By: Ned Harmon on 01-04-2025 Bilirubin Ql (U) Negative Negative [facility] Bilirubin, totalOrdered By: Ned Harmon on 01-04-2025 Bilirubin [Mass/Vol] 0.88 mg/dL 0.00-1.30 [facility] Blood band neutrophil count as percentage of total leukocytesOrdered By: eNd Harmon on 01-04-2025 Band form neutrophils/100 WBC (Bld) 1 % 0-5 [facility] Blood cultureOrdered By: Corona Harmon on 01-04-2025 Bacteria identified Cx Nom (Bld) No growth in 5 days. [facility] Bacteria identified Cx Nom (Bld) No growth in 5 days. [facility] Blood eosinophils/100 leukoc ytesOrdered By: Ned Harmon on 01-04-2025 Eosinophils/100 WBC (Bld) 2 % 0-5 [facility] Blood lymphocytes/100 leukoc ytesOrdered By: Ned Harmon on 01-04-2025 Lymphocytes/100 WBC (Bld) 4 % Low 19-41 [facility] Blood metamyelocytes/100 judy kocytesOrdered By: Ned Harmon on 01-04-2025 Metamyelocytes/100 WBC (Bld) 4 % High 0-1 [facility] [facility] Blood monocytes/100 leukocyt esOrdered By: Ned Harmon on 01-04-2025 Monocytes/100 WBC (Bld) 6 % 0-10 [facility] Blood segmented neutrophils/ 100 leukocytesOrdered By: Ned Harmon on 01-04-2025 Segmented neutrophils/100 WBC (Bld) 83 % High 47-70 [facility] CTA Chest W/WO Contraston CTA Chest W/WO Contrast [facility] Imaging Services [address] [place] [address] CTA Chest W/WO Contrast MR#: [id number] Acct: [id number] Name: EMETERIO CHENEY Clair Rep #: [id number] : 1955 M 69 From: Wilfrido Wu DO PCP: [facility] Status: REG ER Study: CTA Chest W/WO Contrast Date of Exam: 01/04/25 Exam# [id number] Ordering Dr: Ned Harmon DO PROCEDURE: CTA [...] focal right lung pulmonary metastases Reading [facility] CC: Dr. Ned Harmon DO; [facility] Senior Net Architect: Signed Normal [facility] Carbon dioxide, total [Moles /volume] in Central venous bloodOrdered By: Ned Harmon on 01-04-2025 CO2 [Moles/Vol] 19.5 mmol/L Low 21.0-32.0 [facility] Chest PA and Lateralon 01-04 Chest PA and Lateral [facility] Imaging Services [facility] [place], [place] [address] Chest PA and Lateral MR#: [id number] Acct: [id number] Name: EMETERIO CHENEY Rep #: [id number] : 1955 M 69 From: Carlos Bee MD PCP: [facility] Status: DEP ER Study: Chest PA and Lateral Date of Exam: 01/04/25 Exam# [id number] Ordering Dr: Ned Harmon DO ADDENDUM by [...] p.m. on January 04, 2025 Reading Location: [facility]-TERA-NL 01/04/251717 Date cc: Dr. Ned Harmon DO; [facility] * Signed PROCEDURE: CHEST PA AND [...] CT chest with IV contrast. Reading Location: [id number] CC: Dr. Ned Harmon DO; [facility] Senior Net Architect: Signed Normal [facility] Chloride assayOrdered By: Tomas Harmon on 01-04-2025 Chloride [Moles/Vol] 87 mmol/L Low 98-108 [facility] Comprehensive Metabolic Prof ilon 01-04-2025 Albumin [Mass/Vol] 3.1 g/dL Low 3.4-4.8 [facility] Comment on above: Performed By: #### L 503.6005, L503.7505, L501.4021 #### [facility] [address] [place], [address] Albumin/Globulin [Mass ratio] 0.9 {ratio} Normal 0.9-2.4 [facility] Comment on above: Performed By: #### L 503.6005, L503.7505, L501.4021 #### [facility] [address] [place], [address] ALK PHOS 81 U/L Normal 40-129 [facility] Comment on above: Performed By: #### L 503.6005, L503.7505, L501.4021 #### [facility] [address] [place], [address] ALT [Catalytic activity/Vol] 18 U/L Normal <=46 [facility] Comment on above: Performed By: #### L 503.6005, L503.7505, L501.4021 #### [facility] [address] [place], [address] AST [Catalytic activity/Vol] 49 U/L High <=37 [facility] Comment on above: Performed By: #### L 503.6005, L503.7505, L501.4021 #### [facility] [address] [place], [address] Bilirubin [Mass/Vol] 0.88 mg/dL Normal 0.00-1.30 [facility] Comment on above: Performed By: #### L 503.6005, L503.7505, L501.4021 #### [facility] [address] [place], [address] BUN/CRE 13.2 RATIO Normal 10-20 [facility] Comment on above: Performed By: #### L 503.6005, L503.7505, L501.4021 #### [facility] [address] [place], [address] Calcium [Mass/Vol] 8.5 mg/dL Normal 7.6-11.0 [facility] Comment on above: Performed By: #### L 503.6005, L503.7505, L501.4021 #### [facility] [address] [place], [address] Chloride [Moles/Vol] 87 mmol/L Low 98-108 [facility] Comment on above: Performed By: #### L 503.6005, L503.7505, L501.4021 #### [facility] [address] [place], [address] CO2 [Moles/Vol] 19.5 mmol/L Low 21.0-32.0 [facility] Comment on above: Performed By: #### L 503.6005, L503.7505, L501.4021 #### [facility] [address] [place], [address] Creatinine [Mass/Vol] 1.06 mg/dL Normal 0.70-1.20 [facility] Comment on above: Performed By: #### L 503.6005, L503.7505, L501.4021 #### [facility] [address] [place], [address] ECRCL 67.91 ml/min Normal 50-250 [facility] Comment on above: Performed By: #### L 503.6005, L503.7505, L501.4021 #### [facility] [address] [place], [address] GAP 14 Normal 5-15 [facility] Comment on above: Performed By: #### L 503.6005, L503.7505, L501.4021 #### [facility] [address] [place], [address] GFR/1.73 sq M.predicted among non-blacks MDRD (S/P/Bld) [Vol rate/Area] 76 mL/min/{1.73_m2} Normal >60 [facility] Comment on above: Result Comment: mL/m in/1.73m2 CKD-EPI Creatinine Equation (2020) Performed By: #### L 503.6005, L503.7505, L501.4021 #### [facility] [address] [place], [address] Globulin (S) [Mass/Vol] 3.4 g/dL Normal 2.2-4.2 [facility] Comment on above: Performed By: #### L 503.6005, L503.7505, L501.4021 #### [facility] [address] [place], [address] Glucose [Mass/Vol] 111 mg/dL High 70-99 [facility] Comment on above: Performed By: #### L 503.6005, L503.7505, L501.4021 #### [facility] [address] [place], [address] Potassium [Moles/Vol] 4.2 mmol/L Normal 3.3-5.1 [facility] Comment on above: Performed By: #### L 503.6005, L503.7505, L501.4021 #### [facility] [address] [place], [address] Sodium [Moles/Vol] 120 mmol/L Low 133-145 [facility] Comment on above: Performed By: #### L 503.6005, L503.7505, L501.4021 #### [facility] [address] [place], [address] T PROT 6.5 g/dL Normal 5.9-8.4 [facility] Comment on above: Performed By: #### L 503.6005, L503.7505, L501.4021 #### [facility] [address] [place], [address] Urea nitrogen [Mass/Vol] 14 mg/dL Normal 4-19 [facility] Comment on above: Performed By: #### L 503.6005, L503.7505, L501.4021 #### [facility] [address] [place], [address] Emergency Department Summary on 01-04-2025 Emergency Department Summary [facility] Medical Records Department [address] [place] [address] Emergency Department Summary 01/04/25 MR#: [id number] Acct: [id number] Name: EMETERIO CHENEY Rep #: [id number] : 1955 69 From: Ned Harmon DO [facility]: [facility] Status:REG ER Location: ED ADDENDUM by Dr. Ned Harmon DO on 01/04/25 at 1328 Patient EKG reviewed showed sinus tachycardia with rate of 107 bpm. 01/04/25 1328 Cosigner Signature (if applicable): cc: [facility] * Signed HPI History of Present [...] he was at the [facility] and there was admitted to [facility] About 2 weeks ago. He states that he will be sleeping and he will feel like he wakes up gasping for air having shortness of breath difficulty breathing therefore he came here for further evaluation management. Patient denies any travel denies any history of blood clots. [facility] Medical History Lung cancer Home Medications [...] follow commands and that he was at [facility] year is 2024 Skin: Warm. Dry, [...] shortness of (more content not included)... Normal [facility] Erythrocyte distribution wid th ratioOrdered By: Ned Harmon on 01-04-2025 Erythrocyte distribution width (RBC) [Ratio] 17.5 % High 11.6-14.6 [facility] Erythrocyte distribution wid th standard deviationOrdered By: Ned Harmon on 01-04-2025 Erythrocyte distribution width (RBC) [Ratio] 58.1 fl High 35.1-43.9 [facility] Erythrocyte morphology asses smentOrdered By: Ned Harmon on 01-04-2025 RBC morphology finding Nom (Bld) NORM C+C NORMAL NORM C&C [facility] Glomerular filtration rate ( GFR) estimation/1.73 sq m using serum, plasma, or whole bOrdered By: Ned Harmon on 01-04-2025 GFR/1.73 sq M.predicted among non-blacks MDRD (S/P/Bld) [Vol rate/Area] 76 mL/min/{1.73_m2} >60 [facility] Comment on above: mL/min/1.73m2 CKD-EP I Creatinine Equation (2020) Hematocrit Auto (Bld) [Volum e fraction]Ordered By: Ned Harmon on 01-04-2025 Hematocrit (Bld) [Volume fraction] 23.8 % Low 40-54 [facility] Hemoglobin measurementOrdere d By: Ned Harmon on 01-04-2025 Hemoglobin (Bld) [Mass/Vol] 7.9 g/dL Low 13.0-16.5 [facility] International normalized rat io (INR) calculationOrdered By: Ned Harmon on 01-04-2025 INR Coag (Bld) [Relative time] 1.2 {INR} [facility] Ketones Test strip Ql (U)Ord ered By: Ned Harmon on 01-04-2025 Ketones Ql (U) 5 mg/dl High Negative [facility] L499.0042on 01-04-2025 Trop T High Sen 20 ng/L Normal <=22 [facility] Comment on above: Performed By: #### L 503.6196, L503.6475, L501.4021 #### [facility] [address] [place], [address] L499.0043on 01-04-2025 Trop T High Sen Normal <=22 [facility] Comment on above: Result Comment: NO S PECIMEN COLLECTED. PATIENT DEPARTED ED. Performed By: #### L 499.0043 #### [facility] [address] [place], [address] L501.4021on 01-04-2025 Trop T High Sen 22 ng/L Normal <=22 [facility] Comment on above: Performed By: #### L 503.6005, L503.7505, L501.4021 #### [facility] [address] [place], [address] L503.7505on 01-04-2025 Natriuretic peptide B (Bld) [Mass/Vol] 1141 pg/mL High <=900 [facility] Comment on above: Result Comment: Hear t Failure Unlikely: < 300 pg/mL Heart Failure Likely < 50 Years: > 450 pg/mL 50-75 Years: > 900 pg/mL >75 Years: > 1800 pg/mL Performed By: #### L 503.7505 #### [facility] [address] [place], [address] Laboratory - Chemistry and C hemistry - challengeOrdered By: Ned Harmon on 01-04-2025 AST [Catalytic activity/Vol] 49 U/L High <38 [facility] Lactic Acidon 01-04-2025 Lactate [Moles/Vol] 1.3 mmol/L Normal 0.0-2.0 [facility] Comment on above: Order Comment: Y Performed By: #### L 503.6005, L503.7505, L501.4021 #### [facility] [address] [place], [address] Lactic acid measurementOrder ed By: Ned Harmon on 01-04-2025 Lactate [Moles/Vol] 1.3 mmol/L 0.0-2.0 [facility] MCV (mean corpuscular volume ) determinationOrdered By: Ned Harmon on 01-04-2025 MCV (RBC) [Entitic vol] 91.2 fL 80-94 [facility] Mean corpuscular hemoglobin (MCH) determinationOrdered By: Ned Harmon on 01-04-2025 MCH (RBC) [Entitic mass] 30.3 pg 27.0-32.0 [facility] Mean corpuscular hemoglobin concentration (MCHC) determinationOrdered By: Ned Harmon on 01-04-2025 MCHC (RBC) [Mass/Vol] 33.2 g/dL 32-36 [facility] Mean platelet volume determi nationOrdered By: Ned Harmon on 01-04-2025 Platelet mean volume (Bld) [Entitic vol] 9.5 fL 6.2-12.0 [facility] Microscopic analysis of urin e for red blood cells (RBC)Ordered By: Ned Harmon on 01-04-2025 Microscopic analysis of urine for red blood cells (RBC) 0-5 SEEN /hpf 0-5 [facility] Mucus LM Ql (Urine sed)Order ed By: Ned Harmon on 01-04-2025 Mucus Ql (Urine sed) 0 SEEN /hpf [facility] Natriuretic peptide.B prohor dada N-Terminal [Mass/volume] in Serum or PlasmaOrdered By: Ned Harmon on 01-04-2025 Natriuretic peptide.B prohormone N-Terminal [Mass/Vol] 1141 pg/mL High <900 [facility] Comment on above: Heart Failure Unlike ly: < 300 pg/mLHeart Failure Likely< 50 Years: > 450 pg/mL50-75 Years: > 900 pg/mL>75 Years: > 1800 pg/mL Nitrite Test strip Ql (U)Ord ered By: Ned Harmon on 01-04-2025 Nitrite Ql (U) Negative Negative [facility] Partial Thromboplast Timeon 01-04-2025 aPTT Coag (Bld) [Time] 35.7 s Normal 24.1-36.2 [facility] Comment on above: Performed By: #### L 499.0043 #### [facility] [address] [place], [address] Platelet countOrdered By: Tomas Harmon on 01-04-2025 Platelets (Bld) [#/Vol] 288 10*3/uL 150-450 [facility] Platelet estimateOrdered By: Ned Harmon on 01-04-2025 Platelets LM Ql (Bld) ADEQUATE ADEQ [facility] Potassium measurement (mass/ volume)Ordered By: Ned Harmon on 01-04-2025 Potassium (Unsp spec) [Mass/Vol] 4.2 mmol/L 3.3-5.1 [facility] Protein Test strip Ql (U)Ord ered By: Ned Harmon on 01-04-2025 Protein Ql (U) 30 mg/dl High Negative [facility] Prothrombin Time w/INRon INR Coag (PPP) [Relative time] 1.2 {INR} Normal [facility] Comment on above: Performed By: #### L 499.0043 #### [facility] [address] [facility] [place], [address] PT Coag (PPP) [Time] 14.9 s Normal 11.7-14.9 [facility] Comment on above: Performed By: #### L 499.0043 #### [facility] [address] [place], [address] Prothrombin timeOrdered By: Ned Harmon on 01-04-2025 PT Coag (PPP) [Time] 14.9 s 11.7-14.9 [facility] RBC Auto (Bld) [#/Vol]Ordere d By: Ned Harmon on 01-04-2025 RBC (Bld) [#/Vol] 2.61 10*6/uL Low 4.6-6.2 [facility] Review by pathologistOrdered By: Ned Harmon on 01-04-2025 Pathologist review Jani (Unsp spec) [Interp] May foll [facility] Pathologist review Jani (Unsp spec) [Interp] Reviewed [facility] Comment on above: Previous reported re sult: Inessa cool Edited by: ALICIA on 01/20/25:1116SEE REPORT IN PATIENT'S EMR AMENDED REPORT 01/20/25 1116 PATH REV previously reported as: Inessa cool Serum creatinine measurement (mass/volume)Ordered By: Ned Harmon on 01-04-2025 Creatinine [Mass/Vol] 1.06 mg/dL 0.70-1.20 [facility] Serum globulin measurementOr dered By: Ned Harmon on 01-04-2025 Globulin (S) [Mass/Vol] 3.4 g/dL 2.2-4.2 [facility] Serum glucose measurement (m ass/volume)Ordered By: Ned Harmon on 01-04-2025 Glucose [Mass/Vol] 111 mg/dL High 70-99 [facility] Serum or plasma alanine hein otransferase (ALT) measurementOrdered By: Ned Harmon on 01-04-2025 ALT [Catalytic activity/Vol] 18 U/L <47 [facility] Serum or plasma albumin vahe urement (mass/volume)Ordered By: Ned Harmon on 01-04-2025 Albumin [Mass/Vol] 3.1 g/dL Low 3.4-4.8 [facility] Serum or plasma albumin/glob ulin mass ratioOrdered By: Ned Harmon on 01-04-2025 Albumin/Globulin [Mass ratio] 0.9 {ratio} 0.9-2.4 [facility] Serum or plasma alkaline celio sphatase measurementOrdered By: Ned Harmon on 01-04-2025 ALP [Catalytic activity/Vol] 81 U/L 40-129 [facility] Serum or plasma calcium vahe urement (mass/volume)Ordered By: Ned Harmon on 01-04-2025 Calcium [Mass/Vol] 8.5 mg/dL 7.6-11.0 [facility] Serum or plasma urea nitroge n measurement (mass/volume)Ordered By: Ned Harmon on 01-04-2025 Urea nitrogen [Mass/Vol] 14 mg/dL 4-19 [facility] Sodium levelOrdered By: Em Harmon on 01-04-2025 Sodium [Moles/Vol] 120 mmol/L Low 133-145 [facility] Squamous epithelial cells de tection in urine sediment by light microscopyOrdered By: Ned Harmon on 01-04-2025 Epithelial cells.squamous LM Ql (Urine sed) 0-5 SEEN /hpf 0-5 [facility] Total cell countOrdered By: Ned Harmon on 01-04-2025 Cells counted Molgen (Bld/Tiss) [#] 100 MANUAL DIFF [facility] Total proteinOrdered By: Corona Harmon on 01-04-2025 Protein [Mass/Vol] 6.5 g/dL 5.9-8.4 [facility] Troponin T.cardiac [Mass/vol ume] in Serum or Plasma by High sensitivity methodOrdered By: Ned Harmon on 01-04-2025 Troponin T.cardiac High sensitivity method [Mass/Vol] 20 ng/L <22 [facility] Troponin T.cardiac High sensitivity method [Mass/Vol] 22 ng/L <22 [facility] Urinalysis, Completeon 01-04 BACTERIA RARE Normal None Seen [facility] Comment on above: Order Comment: EWA CTOR TO SPECIFY Performed By: #### L 499.0043 #### [facility] [address] [place], [place], [id number] EPI,SQUAMOUS 0-5 SEEN Normal 0-5 [facility] Comment on above: Order Comment: EWA CTOR TO SPECIFY Performed By: #### L 499.0043 #### [facility] [address] [place], [place], [id number] (129) RBC 0-5 SEEN Normal 0-5 [facility] Comment on above: Order Comment: EWA CTOR TO SPECIFY Performed By: #### L 499.0043 #### [facility] [address] [place], [address] WBC 0-5 SEEN Normal 0-5 [facility] Comment on above: Order Comment: EWA CTOR TO SPECIFY Performed By: #### L 499.0043 #### [facility] [address] [place], [place], [phone] Mucus Ql (Urine sed) 0 SEEN Normal [facility] Comment on above: Order Comment: COLLE CTOR TO SPECIFY Performed By: #### L 499.0043 #### [facility] [place] [address], [address] Urine clarityOrdered By: Corona Harmon on 01-04-2025 Clarity (U) Clear Clear [facility] Urine color determinationOrd ered By: Ned Harmon on 01-04-2025 Color (U) Yellow Yellow [facility] Urine cultureOrdered By: Corona Harmon on 01-04-2025 Bacteria identified Cx Nom (U) Positive Abnormal [facility] Urine glucose detectionOrder ed By: Ned Harmon on 01-04-2025 Glucose Ql (U) Normal mg/dl Normal [facility] Urine leukocyte esterase det ection by dipstickOrdered By: Ned Harmon on 01-04-2025 Leukocyte esterase Test strip Ql (U) Negative Negative [facility] Urine pHOrdered By: Ned amezcua on 01-04-2025 pH (U) 6.0 [pH] 5.0 - 8.0 [facility] Urine sediment bacteria coun t by microscopy (number/high power field)Ordered By: Ned Harmon on 01-04-2025 Bacteria LM.HPF (Urine sed) [#/Area] RARE /hpf None Seen [facility] Urine specific gravity measu rementOrdered By: Ned Harmon on 01-04-2025 Specific gravity (U) [Rel density] 1.015 1.002-1.030 [facility] Urine urobilinogen measureme ntOrdered By: Ned Harmon on 01-04-2025 Urobilinogen Ql (U) Normal mg/dl Normal [facility] White blood cell (WBC) count Ordered By: Ned Harmon on 01-04-2025 WBC (Bld) [#/Vol] 10.7 10*3/uL 4.4-11.0 [facility] White blood cell countOrdere d By: Ned Harmon on 01-04-2025 White blood cell count 0-5 SEEN /hpf 0-5 [facility] CNPNon 06-27-2025 CNPN Normal [facility] CASE MANAGEMon 12-22-2024 CASE MANAGEM Normal [facility] CBC panel Auto (Bld)on 12-22 Erythrocyte distribution width (RBC) [Ratio] 22.9 % High 11.5-15.0 [facility] Comment on above: Order Comment: Speci men Type: BLOOD SPECIMENOrdering Facility: [facility] Address: [address] [place] [address] Performed By: #### 5 8410-2 ####[facility] LABORATORYCLIA [id number] [address] STATES OF [facility] Hematocrit (Bld) [Volume fraction] 26.2 % Low 39.0-51.0 [facility] Comment on above: Order Comment: Speci men Type: BLOOD SPECIMENOrdering Facility: [facility] Address: [address] [place] [address] Performed By: #### 5 8410-2 ####[facility] LABORATORYCLIA [id number] [address] STATES OF [facility] Hemoglobin (Bld) [Mass/Vol] 8.4 g/dL Low 13.0-17.0 [facility] Comment on above: Order Comment: Speci men Type: BLOOD SPECIMENOrdering Facility: [facility] Address: [address] [place] [address] Performed By: #### 5 8410-2 ####[facility] LABORATORYCLIA [id number] [address] [place] MCH (RBC) [Entitic mass] 31.1 pg Normal 26.0-34.0 [facility] Comment on above: Order Comment: Speci men Type: BLOOD SPECIMENOrdering Facility: [facility] Address: [address] [place] [address] Performed By: #### 5 8410-2 ####[facility] LABORATORYCLIA [id number] [address] [place] MCHC (RBC) [Mass/Vol] 32.1 g/dL Normal 30.5-36.0 [facility] Comment on above: Order Comment: Speci men Type: BLOOD SPECIMENOrdering Facility: [facility] Address: [address] [place] [address] Performed By: #### 5 8410-2 ####[facility] LABORATORYCLIA [id number] [address] MCV (RBC) [Entitic vol] 97.0 fL Normal 80.0-100.0 [facility] Comment on above: Order Comment: Speci men Type: BLOOD SPECIMENOrdering Facility: [facility] Address: [address] [place] [address] Performed By: #### 5 8410-2 ####[facility] LABORATORYCLIA [id number] [address] Nucleated RBC (Bld) [#/Vol] 10*3/uL Normal <0.01 [facility] Comment on above: Order Comment: Speci men Type: BLOOD SPECIMENOrdering Facility: [facility] Address: [address] [place] [address] Performed By: #### 5 8410-2 ####[facility] LABORATORYCLIA [id number] [address] Platelet mean volume (Bld) [Entitic vol] 9.3 fL Normal 9.0-12.7 [facility] Comment on above: Order Comment: Speci men Type: BLOOD SPECIMENOrdering Facility: [facility] Address: [address] [place] [address] Performed By: #### 5 8410-2 ####[facility] LABORATORYCLIA [id number] [address] Platelets (Bld) [#/Vol] 522 10*3/uL High 150-400 [facility] Comment on above: Order Comment: Speci men Type: BLOOD SPECIMENOrdering Facility: [facility] Address: [address] [place] [address] Performed By: #### 5 8410-2 ####[facility] LABORATORYCLIA [id number] [address] [place] RBC (Bld) [#/Vol] 2.70 10*6/uL Low 4.20-6.00 [facility] Comment on above: Order Comment: Speci men Type: BLOOD SPECIMENOrdering Facility: [facility] Address: [address] [place] [address] Performed By: #### 5 8410-2 ####[facility] LABORATORYCLIA [id number] [address] WBC (Bld) [#/Vol] 18.97 10*3/uL High 3.70-11.00 [facility] Comment on above: Order Comment: Speci men Type: BLOOD SPECIMENOrdering Facility: [facility] Address: [address] [place] [address] Performed By: #### 5 8410-2 ####[facility] LABORATORYCLIA [id number] [address] CNDSon 12-22-2024 CNDS Normal [facility] CONSULT PROGon 12-22-2024 CONSULT PROG Normal [facility] Comprehensive metabolic 2000 panelon 12-22-2024 Albumin [Mass/Vol] 3.2 g/dL Low 3.9-4.9 [facility] Comment on above: Order Comment: Speci men Type: BLOOD SPECIMENOrdering Facility: [facility] Address: [address] [place] [address] Performed By: #### 2 4323-8, 2777-1 ####[facility] LABORATORYCLIA [id number] [address] ALP [Catalytic activity/Vol] 122 U/L High 38-113 [facility] Comment on above: Order Comment: Speci men Type: BLOOD SPECIMENOrdering Facility: [facility] Address: [address] [place] [address] Performed By: #### 2 4323-8, 2777-1 ####[facility] LABORATORYCLIA [id number] [address] ALT With P-5'-P [Catalytic activity/Vol] 36 U/L Normal 10-54 [facility] Comment on above: Order Comment: Speci men Type: BLOOD SPECIMENOrdering Facility: [facility] Address: [address] [place] [address] Performed By: #### 2 4323-8, 2776- ####[facility] LABORATORYCLIA [id number] [place] [address] [place] Anion gap [Moles/Vol] 11 mmol/L Normal 8-15 [facility] Comment on above: Order Comment: Speci men Type: BLOOD SPECIMENOrdering Facility: [facility] Address: [address] [place] [address] Performed By: #### 2 4323-8, 2776-07 ####[facility] LABORATORYCLIA [id number] [place] [address] [place] AST With P-5'-P [Catalytic activity/Vol] 33 U/L Normal 14-40 [facility] Comment on above: Order Comment: Speci men Type: BLOOD SPECIMENOrdering Facility: [facility] Address: [address] [place] [address] Performed By: #### 2 4323-8, 2776-07 ####[facility] LABORATORYCLIA [id number] [address] [place] Bilirubin [Mass/Vol] 1.0 mg/dL Normal 0.2-1.3 [facility] Comment on above: Order Comment: Speci men Type: BLOOD SPECIMENOrdering Facility: [facility] Address: [address] [place] [address] Performed By: #### 2 4323-8, 2776-07 ####[facility] LABORATORYCLIA [id number] [address] [place] Calcium [Mass/Vol] 9.2 mg/dL Normal 8.5-10.2 [facility] Comment on above: Order Comment: Speci men Type: BLOOD SPECIMENOrdering Facility: [facility] Address: [address] [place] [address] Performed By: #### 2 4323-8, 7-1 ####[facility] LABORATORYCLIA [id number] [address] [place] Chloride [Moles/Vol] 102 mmol/L Normal 98-107 [facility] Comment on above: Order Comment: Speci men Type: BLOOD SPECIMENOrdering Facility: [facility] Address: [address] [place] [address] Performed By: #### 2 4323-8, 277- ####[facility] LABORATORYCLIA [id number] [place] [id number] [facility] CO2 [Moles/Vol] 22 mmol/L Normal 22-30 [facility] Comment on above: Order Comment: Speci men Type: BLOOD SPECIMENOrdering Facility: [facility] Address: [address] [place] [address] Performed By: #### 2 4323-8, 2777-1 ####[facility] LABORATORYCLIA [id number] [address] Creatinine [Mass/Vol] 1.19 mg/dL Normal 0.73-1.22 [facility] Comment on above: Order Comment: Speci men Type: BLOOD SPECIMENOrdering Facility: [facility] Address: [address] [place] [address] Performed By: #### 2 4323-8, 2777-1 ####[facility] LABORATORYCLIA [id number] [address] Creatinine and Glomerular filtration rate.predicted panel (S/P/Bld) 66 mL/min/1.73m??? Normal >=60 [facility] Comment on above: Order Comment: Speci men Type: BLOOD SPECIMENOrdering Facility: [facility] Address: [address] [place] [address] Result Comment: Marcela mated Glomerular Filtration Rate [...] actual GFR. Performed By: #### 2 4323-8, 2777-1 ####[facility] COUNTYCLIA [id number] [place] [address] [place] Glucose [Mass/Vol] 92 mg/dL Normal 74-99 [facility] Comment on above: Order Comment: Franchesca estrada Type: BLOOD SPECIMENOrdering Facility: [facility] Address: [address] [place] [address] Result Comment: The [place] [employer] Association (ADA) provides guidance for cutoff [...] Standards of Medical Care in Diabetes 2016, [place] [employer]. Diabetes Care. 2016.39(Suppl 1). Performed By: #### 2 4323-8, 277-1 ####[facility] COUNTYCLIA [id number] [place] [address] [place] Potassium [Moles/Vol] 4.4 mmol/L Normal 3.7-5.1 [facility] Comment on above: Order Comment: Franchesca estrada Type: BLOOD SPECIMENOrdering Facility: [facility] Address: [address] [place] [address] Performed By: #### 2 4323-8, 2777- ####[facility] LABORATORYCLIA [id number] [place] [address] [place] Protein [Mass/Vol] 6.9 g/dL Normal 6.3-8.0 [facility] Comment on above: Order Comment: Franchesca estrada Type: BLOOD SPECIMENOrdering Facility: [facility] Address: [address] [place] [address] Performed By: #### 2 4323-8, 2777-1 ####[facility] LABORATORYCLIA [id number] [place] [address] [place] Sodium [Moles/Vol] 135 mmol/L Low 136-144 [facility] Comment on above: Order Comment: Speci men Type: BLOOD SPECIMENOrdering Facility: [facility] Address: [address] [place] [address] Performed By: #### 2 4323-8, 2777-1 ####[facility] LABORATORYCLIA [id number] [place] [address] [place] Urea nitrogen [Mass/Vol] 29 mg/dL High 9 [facility] Comment on above: Order Comment: Speci men Type: BLOOD SPECIMENOrdering Facility: [facility] Address: [address] [place] [address] Performed By: #### 2 4323-8, 2777- ####[facility] LABORATORYCLIA [id number] [place] [address] [place] Phosphate SerPl-mCncon 12-22 Phosphate [Mass/Vol] 3.6 mg/dL Normal 2.7-4.8 [facility] Comment on above: Order Comment: Speci men Type: BLOOD SPECIMENOrdering Facility: [facility] Address: [address] [place] [address] Performed By: #### 2 4323-8, 2777- ####[facility] LABORATORYCLIA [id number] [place] [address] [place] Albumin SerPl-mCncon 12-21- 025 Albumin [Mass/Vol] 3.3 g/dL Low 3.9-4.9 [facility] Comment on above: Order Comment: Speci men Type: BLOOD SPECIMENOrdering Facility: [facility] Address: [address] [place] [address] Performed By: #### 2 4321-2, 01194-6, 1751-7, 2777-1 ####[facility] LABORATORYCLIA [id number] [place] [address] [place] Basic metabolic 2000 panelon 12-21-2024 Anion gap [Moles/Vol] 13 mmol/L Normal 8-15 [facility] Comment on above: Order Comment: Speci men Type: BLOOD SPECIMENOrdering Facility: [facility] Address: [address] [place] [address] Performed By: #### 2 4321-2, , 1750-12, 277-1 ####[facility] LABORATORYCLIA [id number] [place] [address] [place] Calcium [Mass/Vol] 9.3 mg/dL Normal 8.5-10.2 [facility] Comment on above: Order Comment: Speci men Type: BLOOD SPECIMENOrdering Facility: [facility] Address: [address] [place] [address] Performed By: #### 2 4321-2, , 1750-12, 2776- ####[facility] LABORATORYCLIA [id number] [place] [address] [place] Chloride [Moles/Vol] 100 mmol/L Normal 98-107 [facility] Comment on above: Order Comment: Speci men Type: BLOOD SPECIMENOrdering Facility: [facility] Address: [address] [place] [address] Performed By: #### 2 4321-2, , 1750-12, 277-1 ####[facility] LABORATORYCLIA [id number] [place] [id number] [place] CO2 [Moles/Vol] 21 mmol/L Low 22-30 [facility] Comment on above: Order Comment: Speci men Type: BLOOD SPECIMENOrdering Facility: [facility] Address: [address] [place] [address] Performed By: #### 2 4321-2, , 1750-12, 2776-1 ####[facility] LABORATORYCLIA [id number] [place] [address] [place] Creatinine [Mass/Vol] 1.18 mg/dL Normal 0.73-1.22 [facility] Comment on above: Order Comment: Franchesca estrada Type: BLOOD SPECIMENOrdering Facility: [facility] Address: [address] [place] [address] Performed By: #### 2 4321-2, 00268-1, 7, 2776-07 ####[facility] LABORATORYCLIA [id number] [address] Creatinine and Glomerular filtration rate.predicted panel (S/P/Bld) 67 mL/min/1.73m??? Normal >=60 [facility] Comment on above: Order Comment: Franchesca estrada Type: BLOOD SPECIMENOrdering Facility: [facility] Address: [address] [place] [address] Result Comment: Marcela mated Glomerular Filtration Rate [...] By: #### 2 4321-2, , 1750-12, 2776-07 ####[facility] LABORATORYIA [id number] [address] [place] Glucose [Mass/Vol] 80 mg/dL Normal 74-99 [facility] Comment on above: Order Comment: Franchesca estrada Type: BLOOD SPECIMENOrdering Facility: [facility] Address: [address] [place] [address] Result Comment: The [place] Diabetes Association (ADA) provides guidance for cutoff [...] Standards of Medical Care in Diabetes 2016, [place] [employer]. Diabetes Care. 2016.39(Suppl 1). Performed By: #### 2 4321-2, , 1750-12, 2776-07 ####[facility] LABORATORYCLIA [id number] [place] [address] [place] Potassium [Moles/Vol] 4.6 mmol/L Normal 3.7-5.1 [facility] Comment on above: Order Comment: Franchesca estrada Type: BLOOD SPECIMENOrdering Facility: [facility] Address: [address] [place] [address] Performed By: #### 2 4321-2, , 1750-12, 2776-07 ####[facility] COUNTYCLIA [id number] [address] STATES OF [facility] Sodium [Moles/Vol] 134 mmol/L Low 136-144 [facility] Comment on above: Order Comment: Franchesca estrada Type: BLOOD SPECIMENOrdering Facility: [facility] Address: [address] [place] [address] Performed By: #### 2 4321-2, , 1750-12, 2776-07 ####[facility] LABORATORYCLIA [id number] [address] [place] Urea nitrogen [Mass/Vol] 32 mg/dL High 9-24 [facility] Comment on above: Order Comment: Franchesca estrada Type: BLOOD SPECIMENOrdering Facility: [facility] Address: [address] [place], [place] [address] Performed By: #### 2 4321-2, , 1750-12, 2776-07 ####[facility] LABORATORYCLIA [id number] [place] [id number] [place] CASE MANAGEMon 12-21-2024 CASE MANAGEM Normal [facility] CBC panel Auto (Bld)on 12-21 Erythrocyte distribution width (RBC) [Ratio] 22.5 % High 11.5-15.0 [facility] Comment on above: Order Comment: Speci men Type: BLOOD SPECIMENOrdering Facility: [facility] Address: [address] [place] [address] Performed By: #### 5 8410-2 ####[facility] LABORATORYCLIA [id number] [address] OF [facility] Hematocrit (Bld) [Volume fraction] 26.6 % Low 39.0-51.0 [facility] Comment on above: Order Comment: Speci men Type: BLOOD SPECIMENOrdering Facility: [facility] Address: [address] [place] [address] Performed By: #### 5 8410-2 ####[facility] LABORATORYCLIA [id number] [address] [place] Hemoglobin (Bld) [Mass/Vol] 8.3 g/dL Low 13.0-17.0 [facility] Comment on above: Order Comment: Speci men Type: BLOOD SPECIMENOrdering Facility: [facility] Address: [address] [place] [address] Performed By: #### 5 8410-2 ####[facility] LABORATORYCLIA [id number] [address] [place] MCH (RBC) [Entitic mass] 30.3 pg Normal 26.0-34.0 [facility] Comment on above: Order Comment: Speci men Type: BLOOD SPECIMENOrdering Facility: [facility] Address: [address] [place] [address] Performed By: #### 5 8410-2 ####[facility] LABORATORYCLIA [id number] [address] [place] MCHC (RBC) [Mass/Vol] 31.2 g/dL Normal 30.5-36.0 [facility] Comment on above: Order Comment: Speci men Type: BLOOD SPECIMENOrdering Facility: [facility] Address: [address] [place] [address] Performed By: #### 5 8410-2 ####[facility] LABORATORYCLIA [id number] [address] OF [facility] MCV (RBC) [Entitic vol] 97.1 fL Normal 80.0-100.0 [facility] Comment on above: Order Comment: Speci men Type: BLOOD SPECIMENOrdering Facility: [facility] Address: [address] [place] [address] Performed By: #### 5 8410-2 ####[facility] LABORATORYCLIA [id number] [address] [place] Nucleated RBC (Bld) [#/Vol] 10*3/uL Normal <0.01 [facility] Comment on above: Order Comment: Speci men Type: BLOOD SPECIMENOrdering Facility: [facility] Address: [address] [place] [address] Performed By: #### 5 8410-2 ####[facility] LABORATORYCLIA [id number] [address] Platelet mean volume (Bld) [Entitic vol] 9.5 fL Normal 9.0-12.7 [facility] Comment on above: Order Comment: Speci men Type: BLOOD SPECIMENOrdering Facility: [facility] Address: [address] [place] [address] Performed By: #### 5 8410-2 ####[facility] LABORATORYCLIA [id number] [address] Platelets (Bld) [#/Vol] 528 10*3/uL High 150-400 [facility] Comment on above: Order Comment: Speci men Type: BLOOD SPECIMENOrdering Facility: [facility] Address: [address] [place] [address] Performed By: #### 5 8410-2 ####[facility] LABORATORYCLIA [id number] [address] [place] RBC (Bld) [#/Vol] 2.74 10*6/uL Low 4.20-6.00 [facility] Comment on above: Order Comment: Speci men Type: BLOOD SPECIMENOrdering Facility: [facility] Address: [address] [place] [address] Performed By: #### 5 8410-2 ####[facility] LABORATORYCLIA [id number] [address] STATES OF [facility] WBC (Bld) [#/Vol] 18.15 10*3/uL High 3.70-11.00 [facility] Comment on above: Order Comment: Speci men Type: BLOOD SPECIMENOrdering Facility: [facility] Address: [address] [place] [address] Performed By: #### 5 8410-2 ####[facility] LABORATORYCLIA [id number] [address] [place] Haptoglob SerPl-mCncon 12-21 Haptoglobin [Mass/Vol] 176 mg/dL Normal 31-238 [facility] Comment on above: Order Comment: Speci men Type: BLOOD SPECIMENOrdering Facility: [facility] Address: [address] [place] [address] Performed By: #### 4 542-7, 2532-0 ####[facility] COUNTYCLIA [id number] [address] [place] Hgb Bld-mCncon 12-21-2024 Hemoglobin (Bld) [Mass/Vol] 8.9 g/dL Low 13.0-17.0 [facility] Comment on above: Order Comment: Speci men Type: BLOOD SPECIMENOrdering Facility: [facility] Address: [address] [place] [address] Performed By: #### 7 18-7 ####[facility] LABORATORYCLIA [id number] [place] [address] [place] LDH SerPl-cCncon 12-21-2024 LDH [Catalytic activity/Vol] 355 U/L High 135-225 [facility] Comment on above: Order Comment: Speci men Type: BLOOD SPECIMENOrdering Facility: [facility] Address: [address] [place] [address] Performed By: #### 4 542-7, 2532-0 ####[facility] LABORATORYCLIA [id number] [place] [address] [place] Magnesium SerPl[facility] Magnesium [Mass/Vol] 1.7 mg/dL Normal 1.7-2.3 [facility] Comment on above: Order Comment: Speci men Type: BLOOD SPECIMENOrdering Facility: [facility] Address: [address] [place] [address] Performed By: #### 2 4321-2, 40669-6, 1750-12, 2777-1 ####[facility] LABORATORYCLIA [id number] [place] [id number] [place] Phosphate SerPl-mCncon 12-21 Phosphate [Mass/Vol] 3.3 mg/dL Normal 2.7-4.8 [facility] Comment on above: Order Comment: Speci men Type: BLOOD SPECIMENOrdering Facility: [facility] Address: [address] [place] [address] Performed By: #### 2 4321-2, , 1750-12, 2777-1 ####[facility] LABORATORYCLIA [id number] [address] [place] Urinalysis complete panel (U )on 12-21-2024 Bilirubin Ql (U) Negative Normal Negative [facility] Comment on above: Order Comment: Speci men Type: URINE SPECIMENOrdering Facility: [facility] Address: [address] [place] [address] Performed By: #### 2 4356-8 ####[facility] LABORATORYCLIA [id number] [place] [address] [place] Clarity (Unsp spec) Clear Normal Clear [facility] Comment on above: Order Comment: Speci men Type: URINE SPECIMENOrdering Facility: [facility] Address: [address] [place] [address] Performed By: #### 2 4356-8 ####[facility] LABORATORYCLIA [id number] [place] [address] [place] Color (U) Light Yellow Normal yellow [facility] Comment on above: Order Comment: Speci men Type: URINE SPECIMENOrdering Facility: [facility] Address: [address] [place] [address] Performed By: #### 2 4356-8 ####[facility] LABORATORYCLIA [id number] [address] [place] Glucose Test strip (U) [Mass/Vol] Negative Normal Trace, Negative [facility] Comment on above: Order Comment: Speci men Type: URINE SPECIMENOrdering Facility: [facility] Address: [address] [place] [address] Performed By: #### 2 4356-8 ####[facility] LABORATORYCLIA [id number] [address] [place] Hemoglobin Ql (U) Negative Normal Negative, Trace [facility] Comment on above: Order Comment: Speci men Type: URINE SPECIMENOrdering Facility: [facility] Address: [address] [place] [address] Performed By: #### 2 4356-8 ####[facility] LABORATORYCLIA [id number] [address] [place] Ketones Ql (U) Negative Normal Negative, Trace [facility] Comment on above: Order Comment: Speci men Type: URINE SPECIMENOrdering Facility: [facility] Address: [address] [place] [address] Performed By: #### 2 4356-8 ####[facility]ATORYCLIA [id number] [address] [place] Leukocyte esterase Test strip Ql (U) Negative Normal Negative, 25 Judy/uL [facility] Comment on above: Order Comment: Speci men Type: URINE SPECIMENOrdering Facility: [facility] Address: [address] [place] [address] Performed By: #### 2 4356-8 ####[facility]ATORYCLIA [id number] [place] [address] [place] Nitrite Ql (U) Negative Normal Negative [facility] Comment on above: Order Comment: Speci men Type: URINE SPECIMENOrdering Facility: [facility] Address: [address] [place] [address] Performed By: #### 2 4356-8 ####[facility] LABORATORYCLIA [id number] [address] [place] pH (U) 6.0 [pH] Normal 5.0-8.0 [facility] Comment on above: Order Comment: Speci men Type: URINE SPECIMENOrdering Facility: [facility] Address: [address] [place] [address] Performed By: #### 2 4356-8 ####[facility] LABORATORYCLIA [id number] [place] [address] [place] Protein (U) [Mass/Vol] Negative Normal Trace , Negative [facility] Comment on above: Order Comment: Speci men Type: URINE SPECIMENOrdering Facility: [facility] Address: [address] [place] [address] Performed By: #### 2 4356-8 ####[facility] LABORATORYCLIA [id number] [place] [address] [place] RBC LM.HPF (Urine sed) [#/Area] 0-3 /HPF Normal 0-3 /HPF [facility] Comment on above: Order Comment: Speci men Type: URINE SPECIMENOrdering Facility: [facility] Address: [address] [place] [address] Performed By: #### 2 4356-8 ####[facility] LABORATORYCLIA [id number] [address] [place] Specific gravity (U) [Rel density] 1.006 Normal 1.005-1.030 [facility] Comment on above: Order Comment: Speci men Type: URINE SPECIMENOrdering Facility: [facility] Address: [address] [place] [address] Performed By: #### 2 4356-8 ####[facility] LABORATORYCLIA [id number] [address] [place] Urobilinogen Ql (U) Normal Normal Normal [facility] Comment on above: Order Comment: Speci men Type: URINE SPECIMENOrdering Facility: [facility] Address: [address] [place] [address] Performed By: #### 2 4356-8 ####[facility] LABORATORYCLIA [id number] [place] [address] [place] WBC LM.HPF (Urine sed) [#/Area] 0-5 /HPF Normal 0-5 /HPF [facility] Comment on above: Order Comment: Speci men Type: URINE SPECIMENOrdering Facility: [facility] Address: [address] [place] [address] Performed By: #### 2 4356-8 ####[facility] LABORATORYCLIA [id number] [place] [address] [place] Albumin SerPl-mCncon 025 Albumin [Mass/Vol] 3.1 g/dL Low 3.9-4.9 [facility] Comment on above: Order Comment: Speci men Type: BLOOD SPECIMENOrdering Facility: [facility] Address: [address] [place] [address] Performed By: #### 1 751-7, 12050-1, 2777-1 ####[facility] COUNTYCLIA [id number] [place] [address] [place] Basic metabolic 2000 panelon 12-20-2024 Anion gap [Moles/Vol] 12 mmol/L Normal 8-15 [facility] Comment on above: Order Comment: Speci men Type: BLOOD SPECIMENOrdering Facility: [facility] Address: [address] [place] [address] Performed By: #### 1 751-7, 47908-9, 2777-1 ####[facility] LABORATORYCLIA [id number] [place] [address] [place] Calcium [Mass/Vol] 8.9 mg/dL Normal 8.5-10.2 [facility] Comment on above: Order Comment: Speci men Type: BLOOD SPECIMENOrdering Facility: [facility] Address: [address] [place] [address] Performed By: #### 1 751-7, 54687-9, 277- ####[facility] LABORATORYCLIA [id number] [place] [address] [place] Chloride [Moles/Vol] 99 mmol/L Normal 98-107 [facility] Comment on above: Order Comment: Speci men Type: BLOOD SPECIMENOrdering Facility: [facility] Address: [address] [place] [address] Performed By: #### 1 751-7, 42912-4, 2776- ####[facility] LABORATORYCLIA [id number] [place] [id number] [place] CO2 [Moles/Vol] 21 mmol/L Low 22-30 [facility] Comment on above: Order Comment: Speci men Type: BLOOD SPECIMENOrdering Facility: [facility] Address: [address] [place] [address] Performed By: #### 1 751-7, 21954-1, 27712-29 ####[facility] LABORATORYCLIA [id number] [place] [address] [place] Creatinine [Mass/Vol] 1.18 mg/dL Normal 0.73-1.22 [facility] Comment on above: Order Comment: Speci men Type: BLOOD SPECIMENOrdering Facility: [facility] Address: [address] [place] [address] Performed By: #### 1 751-7, 87418-2, 27712-29 ####[facility] LABORATORYCLIA [id number] [address] Creatinine and Glomerular filtration rate.predicted panel (S/P/Bld) 67 mL/min/1.73m??? Normal >=60 [facility] Comment on above: Order Comment: Speci men Type: BLOOD SPECIMENOrdering Facility: [facility] Address: [address] [place] [address] Result Comment: Marcela mated Glomerular Filtration Rate [...] actual GFR. Performed By: #### 1 751-7, 67976-8, 2776-07 ####[facility] LABORATORYCLIA [id number] [place] [address] [place] Glucose [Mass/Vol] 83 mg/dL Normal 74-99 [facility] Comment on above: Order Comment: Franchesca estrada Type: BLOOD SPECIMENOrdering Facility: [facility] Address: [address] [place] [address] Result Comment: The [place] [employer] (ADA) provides guidance for cutoff [...] Standards of Medical Care in Diabetes 2016, [place] [employer]. Diabetes Care. 2016.39(Suppl 1). Performed By: #### 1 751-7, 96586-4, 2776-07 ####[facility] LABORATORYCLIA [id number] [place] [address] [place] Potassium [Moles/Vol] 4.4 mmol/L Normal 3.7-5.1 [facility] Comment on above: Order Comment: Franchesca estrada Type: BLOOD SPECIMENOrdering Facility: [facility] Address: [address] [place] [address] Performed By: #### 1 751-7, 93118-5, 2776-07 ####[facility] LABORATORYCLIA [id number] [place] [address] [place] Sodium [Moles/Vol] 132 mmol/L Low 136-144 [facility] Comment on above: Order Comment: Speci men Type: BLOOD SPECIMENOrdering Facility: [facility] Address: [address] [place] [address] Performed By: #### 1 751-7, 78904-2, 2777-1 ####[facility] LABORATORYCLIA [id number] [address] STATES [facility] Urea nitrogen [Mass/Vol] 35 mg/dL High 9-24 [facility] Comment on above: Order Comment: Speci men Type: BLOOD SPECIMENOrdering Facility: [facility] Address: [address] [place] [address] Performed By: #### 1 751-7, 25283-3, 27712-29 ####[facility] LABORATORYCLIA [id number] [address] STATES [facility] CBC panel Auto (Bld)on 12-20 Erythrocyte distribution width (RBC) [Ratio] 22.5 % High 11.5-15.0 [facility] Comment on above: Order Comment: Speci men Type: BLOOD SPECIMENOrdering Facility: [facility] Address: [address] [place] [address] Performed By: #### 7 18-7, 77425-4 ####[facility] LABORATORYCLIA [id number] [address] [place] Hematocrit (Bld) [Volume fraction] 27.3 % Low 39.0-51.0 [facility] Comment on above: Order Comment: Speci men Type: BLOOD SPECIMENOrdering Facility: [facility] Address: [address] [place] [address] Performed By: #### 7 18-7, 75624-4 ####[facility] LABORATORYCLIA [id number] [address] MCH (RBC) [Entitic mass] 31.6 pg Normal 26.0-34.0 [facility] Comment on above: Order Comment: Speci men Type: BLOOD SPECIMENOrdering Facility: [facility] Address: [address] [place] [address] Performed By: #### 7 18-7, 82587-2 ####[facility] LABORATORYCLIA [id number] [address] MCHC (RBC) [Mass/Vol] 31.7 g/dL Normal 30.5-36.0 [facility] Comment on above: Order Comment: Speci men Type: BLOOD SPECIMENOrdering Facility: [facility] Address: [address] [place] [address] Performed By: #### 7 18-7, 55296-4 ####[facility] LABORATORYCLIA [id number] [address] OF [facility] MCV (RBC) [Entitic vol] 100.4 fL High 80.0-100.0 [facility] Comment on above: Order Comment: Speci men Type: BLOOD SPECIMENOrdering Facility: [facility] Address: [address] [place] [address] Performed By: #### 7 18, 47224-6 ####[facility] LABORATORYCLIA [id number] [address] Nucleated RBC (Bld) [#/Vol] 10*3/uL Normal <0.01 [facility] Comment on above: Order Comment: Speci men Type: BLOOD SPECIMENOrdering Facility: [facility] Address: [address] [place] [address] Performed By: #### 7 18-7, 27420-5 ####[facility] LABORATORYCLIA [id number] [address] Platelet mean volume (Bld) [Entitic vol] 10.1 fL Normal 9.0-12.7 [facility] Comment on above: Order Comment: Speci men Type: BLOOD SPECIMENOrdering Facility: [facility] Address: [address] [place] [address] Performed By: #### 7 18-7, 98207-5 ####[facility] LABORATORYCLIA [id number] [place] [address] [place] Platelets (Bld) [#/Vol] 552 10*3/uL High 150-400 [facility] Comment on above: Order Comment: Speci men Type: BLOOD SPECIMENOrdering Facility: [facility] Address: [address] [place] [address] Performed By: #### 7 18-7, 87788-1 ####[facility] LABORATORYCLIA [id number] [place] [address] [place] RBC (Bld) [#/Vol] 2.72 10*6/uL Low 4.20-6.00 [facility] Comment on above: Order Comment: Speci men Type: BLOOD SPECIMENOrdering Facility: [facility] Address: [address] [place] [address] Performed By: #### 7 18-7, 50254-9 ####[facility] LABORATORYCLIA [id number] [address] [place] WBC (Bld) [#/Vol] 19.97 10*3/uL High 3.70-11.00 [facility] Comment on above: Order Comment: Speci men Type: BLOOD SPECIMENOrdering Facility: [facility] Address: [address] [place] [address] Performed By: #### 7 18-7, 15428-1 ####[facility] LABORATORYCLIA [id number] [address] [place] Erythrocyte distribution width (RBC) [Ratio] 23.9 % High 11.5-15.0 [facility] Comment on above: Order Comment: Speci men Type: BLOOD SPECIMENOrdering Facility: [facility] Address: [address] [place] [address] Performed By: #### 5 8410-2 ####[facility] LABORATORYCLIA [id number] [address] OF [facility] Hematocrit (Bld) [Volume fraction] 20.6 % Low 39.0-51.0 [facility] Comment on above: Order Comment: Speci men Type: BLOOD SPECIMENOrdering Facility: [facility] Address: [address] [place] [address] Performed By: #### 5 8410-2 ####[facility] LABORATORYCLIA [id number] [address] Hemoglobin (Bld) [Mass/Vol] 6.7 g/dL Low 13.0-17.0 [facility] Comment on above: Order Comment: Speci men Type: BLOOD SPECIMENOrdering Facility: [facility] Address: [address] [place] [address] Performed By: #### 5 8410-2 ####[facility] LABORATORYCLIA [id number] [address] MCH (RBC) [Entitic mass] 31.0 pg Normal 26.0-34.0 [facility] Comment on above: Order Comment: Speci men Type: BLOOD SPECIMENOrdering Facility: [facility] Address: [address] [place] [address] Performed By: #### 5 8410-2 ####[facility] LABORATORYCLIA [id number] [address] MCHC (RBC) [Mass/Vol] 32.5 g/dL Normal 30.5-36.0 [facility] Comment on above: Order Comment: Speci men Type: BLOOD SPECIMENOrdering Facility: [facility] Address: [address] [place] [address] Performed By: #### 5 8410-2 ####[facility] LABORATORYCLIA [id number] [address] MCV (RBC) [Entitic vol] 95.4 fL Normal 80.0-100.0 [facility] Comment on above: Order Comment: Speci men Type: BLOOD SPECIMENOrdering Facility: [facility] Address: [address] [place] [address] Performed By: #### 5 8410-2 ####[facility] LABORATORYCLIA [id number] [place] [address] [place] Nucleated RBC (Bld) [#/Vol] 10*3/uL Normal <0.01 [facility] Comment on above: Order Comment: Speci men Type: BLOOD SPECIMENOrdering Facility: [facility] Address: [address] [place] [address] Performed By: #### 5 8410-2 ####[facility] LABORATORYCLIA [id number] [place] [address] [place] Platelet mean volume (Bld) [Entitic vol] 9.2 fL Normal 9.0-12.7 [facility] Comment on above: Order Comment: Speci men Type: BLOOD SPECIMENOrdering Facility: [facility] Address: [address] [place] [address] Performed By: #### 5 8410-2 ####[facility] LABORATORYCLIA [id number] [address] [place] Platelets (Bld) [#/Vol] 470 10*3/uL High 150-400 [facility] Comment on above: Order Comment: Speci men Type: BLOOD SPECIMENOrdering Facility: [facility] Address: [address] [place] [address] Performed By: #### 5 8410-2 ####[facility] LABORATORYCLIA [id number] [address] [place] RBC (Bld) [#/Vol] 2.16 10*6/uL Low 4.20-6.00 [facility] Comment on above: Order Comment: Speci men Type: BLOOD SPECIMENOrdering Facility: [facility] Address: [address] [place] [address] Performed By: #### 5 8410-2 ####[facility] LABORATORYCLIA [id number] [address] [place] WBC (Bld) [#/Vol] 19.00 10*3/uL High 3.70-11.00 [facility] Comment on above: Order Comment: Speci men Type: BLOOD SPECIMENOrdering Facility: [facility] Address: [address] [place] [address] Performed By: #### 5 8410-2 ####[facility] LABORATORYCLIA [id number] [place] [address] [place] Haptoglob SerPl-mCncon 12-20 Haptoglobin [Mass/Vol] 130 mg/dL Normal 31-238 [facility] Comment on above: Order Comment: Speci men Type: BLOOD SPECIMENOrdering Facility: [facility] Address: [address] [place] [address] Performed By: #### 4 542-7, 2532-0 ####[facility] LABORATORYCLIA [id number] [place] [address] [place] Hgb Bld-mCncon 12-20-2024 Hemoglobin (Bld) [Mass/Vol] 7.2 g/dL Low 13.0-17.0 [facility] Comment on above: Order Comment: Speci men Type: BLOOD SPECIMENOrdering Facility: [facility] Address: [address] [place] [address] Performed By: #### 7 18-7, 43326-4 ####[facility] LABORATORYCLIA [id number] [place] [address] [place] LDH SerPl-cCncon 12-20-2024 LDH [Catalytic activity/Vol] 350 U/L High 135-225 [facility] Comment on above: Order Comment: Speci men Type: BLOOD SPECIMENOrdering Facility: [facility] Address: [address] [place] [address] Performed By: #### 4 542-7, 2532-0 ####[facility] LABORATORYCLIA [id number] [place] [address] [place] Phosphate SerPl-mCncon 12-20 Phosphate [Mass/Vol] 3.4 mg/dL Normal 2.7-4.8 [facility] Comment on above: Order Comment: Speci men Type: BLOOD SPECIMENOrdering Facility: [facility] Address: [address] [place] [address] Performed By: #### 1 751-7, 63311-2, 2777-1 ####[facility] LABORATORYCLIA [id number] [place] [address] [place] TYPE + SCREENon 12-20-2024 ABO B Normal [facility] Comment on above: Order Comment: Speci men Type: BLOOD SPECIMENOrdering Facility: [facility] Address: [address] [place] [address] Performed By: #### T SCR ####[facility] BLOOD BANKCLIA [id number] [place] [address] [place] Rh Nom (Bld) Positive Normal [facility] Comment on above: Order Comment: Speci men Type: BLOOD SPECIMENOrdering Facility: [facility] Address: [address] [place] [address] Performed By: #### T SCR ####[facility] BLOOD BANKCLIA [id number] [address] STATES OF [facility] TYPE AND SCREEN EXPIRATION 12/23/2024 23:59 Normal [facility] Comment on above: Order Comment: Speci men Type: BLOOD SPECIMENOrdering Facility: [facility] Address: [address] [place] [address] Performed By: #### T SCR ####[facility] BLOOD BANKCLIA [id number] [place] [address] [place] Albumin SerPl-mCncon 025 Albumin [Mass/Vol] 3.1 g/dL Low 3.9-4.9 [facility] Comment on above: Order Comment: Speci men Type: BLOOD SPECIMENOrdering Facility: [facility] Address: [address] [place] [address] Performed By: #### 1 751-7, 14507-0, 49733-4 ####[facility] LABORATORYCLIA [id number] [place] [address] [place] Basic metabolic 2000 panelon 12-19-2024 Anion gap [Moles/Vol] 14 mmol/L Normal 8-15 [facility] Comment on above: Order Comment: Speci men Type: BLOOD SPECIMENOrdering Facility: [facility] Address: [address] [place] [address] Performed By: #### 1 751-7, , ####[facility] LABORATORYCLIA [id number] [place] [address] [place] Calcium [Mass/Vol] 9.2 mg/dL Normal 8.5-10.2 [facility] Comment on above: Order Comment: Speci men Type: BLOOD SPECIMENOrdering Facility: [facility] Address: [address] [place] [address] Performed By: #### 1 751-7, , ####[facility] LABORATORYCLIA [id number] [place] [address] [place] Chloride [Moles/Vol] 99 mmol/L Normal 98-107 [facility] Comment on above: Order Comment: Speci men Type: BLOOD SPECIMENOrdering Facility: [facility] Address: [address] [place] [address] Performed By: #### 1 751-7, , ####[facility] LABORATORYCLIA [id number] [place] [address] [place] CO2 [Moles/Vol] 22 mmol/L Normal 22-30 [facility] Comment on above: Order Comment: Speci men Type: BLOOD SPECIMENOrdering Facility: [facility] Address: [address] [place] [address] Performed By: #### 1 751-7, , ####[facility] LABORATORYCLIA [id number] [place] [address] [place] Creatinine [Mass/Vol] 1.28 mg/dL High 0.73-1.22 [facility] Comment on above: Order Comment: Speci men Type: BLOOD SPECIMENOrdering Facility: [facility] Address: [address] [place] [address] Performed By: #### 1 751-7, , ####[facility]IA [id number] [address] Creatinine and Glomerular filtration rate.predicted panel (S/P/Bld) 61 mL/min/1.73m??? Normal >=60 [facility] Comment on above: Order Comment: Girishchioma estrada Type: BLOOD SPECIMENOrdering Facility: [facility] Address: [address] [place] [address] Result Comment: Marcela mated Glomerular Filtration Rate [...] actual GFR. Performed By: #### 1 751-7, 34609-6, 05522-2 ####[facility]PITALIA [id number] [address] STATES [facility] Glucose [Mass/Vol] 90 mg/dL Normal 74-99 [facility] Comment on above: Order Comment: Franchesca estrada Type: BLOOD SPECIMENOrdering Facility: [facility] Address: [address] [place] [address] Result Comment: The [place] [employer] (ADA) provides guidance for cutoff [...] Standards of Medical Care in Diabetes 2016, [place] [employer]. Diabetes Care. 2016.39(Suppl 1). Performed By: #### 1 751-7, 62051-1, 22320-0 ####[facility]ITALIA [id number] [place] [id number] [place] Potassium [Moles/Vol] 4.5 mmol/L Normal 3.7-5.1 [facility] Comment on above: Order Comment: Speci men Type: BLOOD SPECIMENOrdering Facility: [facility] Address: [address] [place] [address] Performed By: #### 1 751-7, , 69111-7 ####[facility] LABORATORYCLIA [id number] [address] [place] Sodium [Moles/Vol] 135 mmol/L Low 136-144 [facility] Comment on above: Order Comment: Speci men Type: BLOOD SPECIMENOrdering Facility: [facility] Address: [address] [place] [address] Performed By: #### 1 751-7, , ####[facility] LABORATORYCLIA [id number] [address] STATES OF [facility] Urea nitrogen [Mass/Vol] 33 mg/dL High 9-24 [facility] Comment on above: Order Comment: Speci men Type: BLOOD SPECIMENOrdering Facility: [facility] Address: [address] [place] [address] Performed By: #### 1 751-7, , ####[facility] LABORATORYCLIA [id number] [address] [place] CBC panel Auto (Bld)on 12-19 Erythrocyte distribution width (RBC) [Ratio] 23.0 % High 11.5-15.0 [facility] Comment on above: Order Comment: Speci men Type: BLOOD SPECIMENOrdering Facility: [facility] Address: [address] [place] [address] Performed By: #### 5 8410-2 ####[facility] LABORATORYCLIA [id number] [address] [place] Hematocrit (Bld) [Volume fraction] 22.2 % Low 39.0-51.0 [facility] Comment on above: Order Comment: Speci men Type: BLOOD SPECIMENOrdering Facility: [facility] Address: [address] [place] [address] Performed By: #### 5 8410-2 ####[facility] LABORATORYCLIA [id number] [address] Hemoglobin (Bld) [Mass/Vol] 7.0 g/dL Low 13.0-17.0 [facility] Comment on above: Order Comment: Speci men Type: BLOOD SPECIMENOrdering Facility: [facility] Address: [address] [place] [address] Performed By: #### 5 8410-2 ####[facility] LABORATORYCLIA [id number] [address] OF [facility] MCH (RBC) [Entitic mass] 30.8 pg Normal 26.0-34.0 [facility] Comment on above: Order Comment: Speci men Type: BLOOD SPECIMENOrdering Facility: [facility] Address: [address] [place] [address] Performed By: #### 5 8410-2 ####[facility] LABORATORYCLIA [id number] [address] MCHC (RBC) [Mass/Vol] 31.5 g/dL Normal 30.5-36.0 [facility] Comment on above: Order Comment: Speci men Type: BLOOD SPECIMENOrdering Facility: [facility] Address: [address] [place] [address] Performed By: #### 5 8410-2 ####[facility] LABORATORYCLIA [id number] [address] STATES [facility] MCV (RBC) [Entitic vol] 97.8 fL Normal 80.0-100.0 [facility] Comment on above: Order Comment: Speci men Type: BLOOD SPECIMENOrdering Facility: [facility] Address: [address] [place] [address] Performed By: #### 5 8410-2 ####[facility] LABORATORYCLIA [id number] [place] [address] [place] Nucleated RBC (Bld) [#/Vol] 10*3/uL Normal <0.01 [facility] Comment on above: Order Comment: Speci men Type: BLOOD SPECIMENOrdering Facility: [facility] Address: [address] [place] [address] Performed By: #### 5 8410-2 ####[facility] LABORATORYCLIA [id number] [place] [address] [place] Platelet mean volume (Bld) [Entitic vol] 9.5 fL Normal 9.0-12.7 [facility] Comment on above: Order Comment: Speci men Type: BLOOD SPECIMENOrdering Facility: [facility] Address: [address] [place] [address] Performed By: #### 5 8410-2 ####[facility] LABORATORYCLIA [id number] [address] [place] Platelets (Bld) [#/Vol] 491 10*3/uL High 150-400 [facility] Comment on above: Order Comment: Speci men Type: BLOOD SPECIMENOrdering Facility: [facility] Address: [address] [place] [address] Performed By: #### 5 8410-2 ####[facility] LABORATORYCLIA [id number] [place] [address] [place] RBC (Bld) [#/Vol] 2.27 10*6/uL Low 4.20-6.00 [facility] Comment on above: Order Comment: Speci men Type: BLOOD SPECIMENOrdering Facility: [facility] Address: [address] [place] [address] Performed By: #### 5 8410-2 ####[facility] LABORATORYCLIA [id number] [place] [address] [place] WBC (Bld) [#/Vol] 17.20 10*3/uL High 3.70-11.00 [facility] Comment on above: Order Comment: Speci men Type: BLOOD SPECIMENOrdering Facility: [facility] Address: [address] [place] [address] Performed By: #### 5 8410-2 ####[facility] LABORATORYCLIA [id number] [place] [address] [place] Haptoglob SerPl-mCncon 12-19 Haptoglobin [Mass/Vol] 97 mg/dL Normal 31-238 [facility] Comment on above: Order Comment: Speci men Type: BLOOD SPECIMENOrdering Facility: [facility] Address: [address] [place] [address] Performed By: #### 4 542-7, 2532-0 ####[facility] LABORATORYCLIA [id number] [place] [address] [place] LDH SerPl-cCncon 12-19-2024 LDH [Catalytic activity/Vol] 405 U/L High 135-225 [facility] Comment on above: Order Comment: Speci men Type: BLOOD SPECIMENOrdering Facility: [facility] Address: [address] [place] [address] Performed By: #### 4 542-7, 253-0 ####[facility] LABORATORYCLIA [id number] [place] [address] [place] Magnesium SerPl-mCncon 12-19 Magnesium [Mass/Vol] 1.8 mg/dL Normal 1.7-2.3 [facility] Comment on above: Order Comment: Speci men Type: BLOOD SPECIMENOrdering Facility: [facility] Address: [address] [place] [address] Performed By: #### 1 751-7, 07727-4, 49733-7 ####[facility] LABORATORYCLIA [id number] [place] [address] [place] Basic metabolic 2000 panelon 12-18-2024 Anion gap [Moles/Vol] 14 mmol/L Normal 8-15 [facility] Comment on above: Order Comment: Speci men Type: BLOOD SPECIMENOrdering Facility: [facility] Address: [address] [place] [address] Performed By: #### 2 4321-2, 2532-0, 4542-7 ####[facility] LABORATORYCLIA [id number] [place] [address] [place] Calcium [Mass/Vol] 9.3 mg/dL Normal 8.5-10.2 [facility] Comment on above: Order Comment: Speci men Type: BLOOD SPECIMENOrdering Facility: [facility] Address: [address] [place] [address] Performed By: #### 2 4321-2, 2532-0, 7 ####[facility] LABORATORYCLIA [id number] [place] [address] [place] Chloride [Moles/Vol] 98 mmol/L Normal 98-107 [facility] Comment on above: Order Comment: Speci men Type: BLOOD SPECIMENOrdering Facility: [facility] Address: [address] [place] [address] Performed By: #### 2 4321-2, 2531-0, 4541-12 ####[facility] LABORATORYCLIA [id number] [place] [address] [place] CO2 [Moles/Vol] 23 mmol/L Normal 22-30 [facility] Comment on above: Order Comment: Speci men Type: BLOOD SPECIMENOrdering Facility: [facility] Address: [address] [place] [address] Performed By: #### 2 4321-2, 2531-0, 7 ####[facility] LABORATORYCLIA [id number] [place] [address] [place] Creatinine [Mass/Vol] 1.48 mg/dL High 0.73-1.22 [facility] Comment on above: Order Comment: Speci men Type: BLOOD SPECIMENOrdering Facility: [facility] Address: [address] [place] [address] Performed By: #### 2 4321-2, 2532-0, 7 ####[facility] LABORATORYCLIA [id number] [place] [address] [place] Creatinine and Glomerular filtration rate.predicted panel (S/P/Bld) 51 mL/min/1.73m??? Low >=60 [facility] Comment on above: Order Comment: Franchesca estrada Type: BLOOD SPECIMENOrdering Facility: [facility] Address: [address] [place] [address] Result Comment: Marcela mated Glomerular Filtration Rate [...] GFR. Performed By: #### 2 4321-2, 2532-0, 4542-7 ####[facility] COUNTYCLIA [id number] [place] [address] [place] Glucose [Mass/Vol] 93 mg/dL Normal 74-99 [facility] Comment on above: Order Comment: Franchesca estrada Type: BLOOD SPECIMENOrdering Facility: [facility] Address: [address] [place] [address] Result Comment: The [place] [employer] Association (ADA) provides guidance for cutoff [...] Standards of Medical Care in Diabetes 2016, [place] [employer]. Diabetes Care. 2016.39(Suppl 1). Performed By: #### 2 4321-2, 2532-0, 4542-7 ####[facility] LABORATORYCLIA [id number] [place] [id number] [place] Potassium [Moles/Vol] 5.1 mmol/L Normal 3.7-5.1 [facility] Comment on above: Order Comment: Franchesca estrada Type: BLOOD SPECIMENOrdering Facility: [facility] Address: [address] [place] [address] Performed By: #### 2 4321-2, 2532-0, 454-7 ####[facility] LABORATORYCLIA [id number] [place] [address] [place] [facility] Sodium [Moles/Vol] 135 mmol/L Low 136-144 [facility] Comment on above: Order Comment: Speci men Type: BLOOD SPECIMENOrdering Facility: [facility] Address: [address] [place] [address] Performed By: #### 2 4321-2, 2532-0, 454-7 ####[facility] LABORATORYCLIA [id number] [place] [id number] [place] Urea nitrogen [Mass/Vol] 32 mg/dL High 9-24 [facility] Comment on above: Order Comment: Speci men Type: BLOOD SPECIMENOrdering Facility: [facility] Address: [address] [place] [address] Performed By: #### 2 4321-2, 2532-0, 4547 ####[facility] LABORATORYCLIA [id number] [place] [address] [place] CASE MANAGEMon 12-18-2024 CASE MANAGEM Normal [facility] CBC panel Auto (Bld)on 12-18 Erythrocyte distribution width (RBC) [Ratio] 22.7 % High 11.5-15.0 [facility] Comment on above: Order Comment: Speci men Type: BLOOD SPECIMENOrdering Facility: [facility] Address: [address] [place] [address] Performed By: #### 5 8410-2 ####[facility] LABORATORYCLIA [id number] [address] [place] Hematocrit (Bld) [Volume fraction] 22.9 % Low 39.0-51.0 [facility] Comment on above: Order Comment: Speci men Type: BLOOD SPECIMENOrdering Facility: [facility] Address: [address] [place] [address] Performed By: #### 5 8410-2 ####[facility] LABORATORYCLIA [id number] [address] Hemoglobin (Bld) [Mass/Vol] 7.2 g/dL Low 13.0-17.0 [facility] Comment on above: Order Comment: Speci men Type: BLOOD SPECIMENOrdering Facility: [facility] Address: [address] [place] [address] Performed By: #### 5 8410-2 ####[facility] LABORATORYCLIA [id number] [address] MCH (RBC) [Entitic mass] 30.3 pg Normal 26.0-34.0 [facility] Comment on above: Order Comment: Speci men Type: BLOOD SPECIMENOrdering Facility: [facility] Address: [address] [place] [address] Performed By: #### 5 8410-2 ####[facility] LABORATORYCLIA [id number] [address] MCHC (RBC) [Mass/Vol] 31.4 g/dL Normal 30.5-36.0 [facility] Comment on above: Order Comment: Speci men Type: BLOOD SPECIMENOrdering Facility: [facility] Address: [address] [place] [address] Performed By: #### 5 8410-2 ####[facility] LABORATORYCLIA [id number] [address] MCV (RBC) [Entitic vol] 96.2 fL Normal 80.0-100.0 [facility] Comment on above: Order Comment: Speci men Type: BLOOD SPECIMENOrdering Facility: [facility] Address: [address] [place] [address] Performed By: #### 5 8410-2 ####[facility] LABORATORYCLIA [id number] [address] Nucleated RBC (Bld) [#/Vol] 10*3/uL Normal <0.01 [facility] Comment on above: Order Comment: Speci men Type: BLOOD SPECIMENOrdering Facility: [facility] Address: [address] [place] [address] Performed By: #### 5 8410-2 ####[facility] LABORATORYCLIA [id number] [address] [place] Platelet mean volume (Bld) [Entitic vol] 9.7 fL Normal 9.0-12.7 [facility] Comment on above: Order Comment: Speci men Type: BLOOD SPECIMENOrdering Facility: [facility] Address: [address] [place] [address] Performed By: #### 5 8410-2 ####[facility] LABORATORYCLIA [id number] [address] [place] Platelets (Bld) [#/Vol] 478 10*3/uL High 150-400 [facility] Comment on above: Order Comment: Speci men Type: BLOOD SPECIMENOrdering Facility: [facility] Address: [address] [place] [address] Performed By: #### 5 8410-2 ####[facility] LABORATORYCLIA [id number] [place] [address] [place] RBC (Bld) [#/Vol] 2.38 10*6/uL Low 4.20-6.00 [facility] Comment on above: Order Comment: Speci men Type: BLOOD SPECIMENOrdering Facility: [facility] Address: [address] [place] [address] Performed By: #### 5 8410-2 ####[facility] LABORATORYCLIA [id number] [address] [place] WBC (Bld) [#/Vol] 21.61 10*3/uL High 3.70-11.00 [facility] Comment on above: Order Comment: Speci men Type: BLOOD SPECIMENOrdering Facility: [facility] Address: [address] [place] [address] Performed By: #### 5 8410-2 ####[facility] LABORATORYCLIA [id number] [place] [address] [place] Haptoglob SerPl-mCncon 12-18 Haptoglobin [Mass/Vol] Normal [facility] Comment on above: Order Comment: Speci men Type: BLOOD SPECIMENOrdering Facility: [facility] Address: [address] [place] [address] Result Comment: Unab le to assay due to interference from hemolysis. Suggest reorder as clinically indicated. Performed By: #### 2 4321-2, 2532-0, 4542-7 ####[facility] LABORATORYCLIA [id number] [place] [address] [place] LDH SerPl-cCncon 12-18-2024 LDH [Catalytic activity/Vol] 495 U/L High 135-225 [facility] Comment on above: Order Comment: Speci men Type: BLOOD SPECIMENOrdering Facility: [facility] Address: [address] [place] [address] Performed By: #### 2 4321-2, 2532-0, 454-7 ####[facility] COUNTYCLIA [id number] [place] [address] [place] Phosphate SerPl-mCncon 12-18 Phosphate [Mass/Vol] 3.4 mg/dL Normal 2.7-4.8 [facility] Comment on above: Order Comment: Speci men Type: BLOOD SPECIMENOrdering Facility: [facility] Address: [address] [place] [address] Performed By: #### 2 777-1 ####[facility] LABORATORYCLIA [id number] [place] [address] [place] CBC W Auto Differential pane l (Bld)on 12-17-2024 Anisocytosis Ql (Bld) Present Normal [facility] Comment on above: Order Comment: Speci men Type: BLOOD SPECIMENOrdering Facility: [facility] Address: [address] [place] [address] Performed By: #### 5 7021-8 ####[facility] LABORATORYCLIA [id number] [place] [address] [place] Basophils (Bld) [#/Vol] 0.00 10*3/uL Normal <0.11 [facility] Comment on above: Order Comment: Speci men Type: BLOOD SPECIMENOrdering Facility: [facility] Address: [address] [place] [address] Performed By: #### 5 7021-8 ####[facility] [facility]ORATORYCLIA [id number] [address] [place] Basophils/100 WBC (Bld) 0.0 % Normal [facility] Comment on above: Order Comment: Speci men Type: BLOOD SPECIMENOrdering Facility: [facility] Address: [address] [place] [address] Performed By: #### 5 7021-8 ####[facility]ORATORYCLIA [id number] [address] [place] Differential cell count method Nom (Bld) Manual Normal [facility] Comment on above: Order Comment: Speci men Type: BLOOD SPECIMENOrdering Facility: [facility] Address: [address] [place] [address] Performed By: #### 5 7021-8 ####[facility]ORYCLIA [id number] [address] [place] Eosinophils (Bld) [#/Vol] 0.00 10*3/uL Normal <0.46 [facility] Comment on above: Order Comment: Speci men Type: BLOOD SPECIMENOrdering Facility: [facility] Address: [address] [place] [address] Performed By: #### 5 7021-8 ####[facility] [facility]ORATORYCLIA [id number] [address] [place] Eosinophils/100 WBC (Bld) 0.0 % Normal [facility] Comment on above: Order Comment: Speci men Type: BLOOD SPECIMENOrdering Facility: [facility] Address: [address] [place] [address] Performed By: #### 5 7021-8 ####[facility]ORATORYCLIA [id number] [address] [place] Erythrocyte distribution width (RBC) [Ratio] 22.6 % High 11.5-15.0 [facility] Comment on above: Order Comment: Speci men Type: BLOOD SPECIMENOrdering Facility: [facility] Address: [address] [place] [address] Performed By: #### 5 7021-8 ####[facility] LABORATORYCLIA [id number] [address] [place] Hematocrit (Bld) [Volume fraction] 22.5 % Low 39.0-51.0 [facility] Comment on above: Order Comment: Speci men Type: BLOOD SPECIMENOrdering Facility: [facility] Address: [address] [place] [address] Performed By: #### 5 7021-8 ####[facility] LABORATORYCLIA [id number] [address] [place] Hemoglobin (Bld) [Mass/Vol] 7.2 g/dL Low 13.0-17.0 [facility] Comment on above: Order Comment: Speci men Type: BLOOD SPECIMENOrdering Facility: [facility] Address: [address] [place] [address] Performed By: #### 5 7021-8 ####[facility] LABORATORYCLIA [id number] [address] [place] Lymphocytes (Bld) [#/Vol] 0.50 10*3/uL Low 1.00-4.00 [facility] Comment on above: Order Comment: Speci men Type: BLOOD SPECIMENOrdering Facility: [facility] Address: [address] [place] [address] Performed By: #### 5 7021-8 ####[facility] LABORATORYCLIA [id number] [address] Lymphocytes/100 WBC (Bld) 3.0 % Normal [facility] Comment on above: Order Comment: Speci men Type: BLOOD SPECIMENOrdering Facility: [facility] Address: [address] [place] [address] Performed By: #### 5 7021-8 ####[facility] LABORATORYCLIA [id number] [address] MCH (RBC) [Entitic mass] 29.9 pg Normal 26.0-34.0 [facility] Comment on above: Order Comment: Speci men Type: BLOOD SPECIMENOrdering Facility: [facility] Address: [address] [place] [address] Performed By: #### 5 7021-8 ####[facility] LABORATORYCLIA [id number] [address] [place] MCHC (RBC) [Mass/Vol] 32.0 g/dL Normal 30.5-36.0 [facility] Comment on above: Order Comment: Speci men Type: BLOOD SPECIMENOrdering Facility: [facility] Address: [address] [place] [address] Performed By: #### 5 7021-8 ####[facility] LABORATORYCLIA [id number] [address] MCV (RBC) [Entitic vol] 93.4 fL Normal 80.0-100.0 [facility] Comment on above: Order Comment: Speci men Type: BLOOD SPECIMENOrdering Facility: [facility] Address: [address] [place] [address] Performed By: #### 5 7021-8 ####[facility] LABORATORYCLIA [id number] [address] Metamyelocytes/100 WBC (Bld) 5.0 % Normal [facility] Comment on above: Order Comment: Speci men Type: BLOOD SPECIMENOrdering Facility: [facility] Address: [address] [place] [address] Performed By: #### 5 7021-8 ####[facility] LABORATORYCLIA [id number] [address] OF [facility] Monocytes (Bld) [#/Vol] 0.84 10*3/uL Normal <0.87 [facility] Comment on above: Order Comment: Speci men Type: BLOOD SPECIMENOrdering Facility: [facility] Address: [address] [place] [address] Performed By: #### 5 7021-8 ####[facility] [facility]ORATORYCLIA [id number] [address] [place] Monocytes/100 WBC (Bld) 5.0 % Normal [facility] Comment on above: Order Comment: Speci men Type: BLOOD SPECIMENOrdering Facility: [facility] Address: [address] [place] [address] Performed By: #### 5 7021-8 ####[facility]ATORYCLIA [id number] [address] [place] MYELO% 3.0 % Normal [facility] Comment on above: Order Comment: Speci men Type: BLOOD SPECIMENOrdering Facility: [facility] Address: [address] [place] [address] Performed By: #### 5 7021-8 ####[facility]ORATORYCLIA [id number] [place] [address] [place] Neutrophils (Bld) [#/Vol] 14.07 10*3/uL High 1.45-7.50 [facility] Comment on above: Order Comment: Speci men Type: BLOOD SPECIMENOrdering Facility: [facility] Address: [address] [place] [address] Performed By: #### 5 7021-8 ####[facility]ATORYCLIA [id number] [address] [place] Neutrophils/100 WBC (Bld) 84.0 % Normal [facility] Comment on above: Order Comment: Speci men Type: BLOOD SPECIMENOrdering Facility: [facility] Address: [address] [place] [address] Performed By: #### 5 7021-8 ####[facility]ATORYCLIA [id number] [place] [address] [place] Nucleated RBC (Bld) [#/Vol] 10*3/uL Normal <0.01 [facility] Comment on above: Order Comment: Speci men Type: BLOOD SPECIMENOrdering Facility: [facility] Address: [address] [place] [address] Performed By: #### 5 7021-8 ####[facility] LABORATORYCLIA [id number] [address] [place] Nucleated RBC/100 WBC (Bld) [Ratio] 0.0 /100 WBC Normal [facility] Comment on above: Order Comment: Speci men Type: BLOOD SPECIMENOrdering Facility: [facility] Address: [address] [place] [address] Performed By: #### 5 7021-8 ####[facility] LABORATORYCLIA [id number] [place] [address] [place] Platelet mean volume (Bld) [Entitic vol] 9.4 fL Normal 9.0-12.7 [facility] Comment on above: Order Comment: Speci men Type: BLOOD SPECIMENOrdering Facility: [facility] Address: [address] [place] [address] Performed By: #### 5 7021-8 ####[facility] LABORATORYCLIA [id number] [address] [place] Platelets (Bld) [#/Vol] 434 10*3/uL High 150-400 [facility] Comment on above: Order Comment: Speci men Type: BLOOD SPECIMENOrdering Facility: [facility] Address: [address] [place] [address] Performed By: #### 5 7021-8 ####[facility] LABORATORYCLIA [id number] [address] [place] Platelets Estimate (Bld) [#/Vol] Adequate Normal [facility] Comment on above: Order Comment: Speci men Type: BLOOD SPECIMENOrdering Facility: [facility] Address: [address] [place] [address] Performed By: #### 5 7021-8 ####[facility] LABORATORYCLIA [id number] [place] [address] [place] Polychromasia LM Ql (Bld) Slight Normal [facility] Comment on above: Order Comment: Speci men Type: BLOOD SPECIMENOrdering Facility: [facility] Address: [address] [place] [address] Performed By: #### 5 7021-8 ####[facility] LABORATORYCLIA [id number] [place] [address] [place] RBC (Bld) [#/Vol] 2.41 10*6/uL Low 4.20-6.00 [facility] Comment on above: Order Comment: Speci men Type: BLOOD SPECIMENOrdering Facility: [facility] Address: [address] [place] [address] Performed By: #### 5 7021-8 ####[facility] LABORATORYCLIA [id number] [address] [place] RED CELL MORPH Reviewed: see result s of individual morphologies Normal [facility] Comment on above: Order Comment: Speci men Type: BLOOD SPECIMENOrdering Facility: [facility] Address: [address] [place] [address] Performed By: #### 5 7021-8 ####[facility] LABORATORYCLIA [id number] [place] [address] [place] WBC (Bld) [#/Vol] 16.75 10*3/uL High 3.70-11.00 [facility] Comment on above: Order Comment: Speci men Type: BLOOD SPECIMENOrdering Facility: [facility] Address: [address] [place] [address] Performed By: #### 5 7021-8 ####[facility] LABORATORYCLIA [id number] [place] [address] [place] CONSULTon 12-17-2024 CONSULT Normal [facility] Hepatic function 2000 panelo n 12-17-2024 Albumin [Mass/Vol] 3.0 g/dL Low 3.9-4.9 [facility] Comment on above: Order Comment: Speci men Type: BLOOD SPECIMENOrdering Facility: [facility] Address: [address] [place] [address] Performed By: #### 2 4362-6, , 28994-8 ####[facility] LABORATORYCLIA [id number] [place], [place] [address] [place] [address] [place] [facility] ALP [Catalytic activity/Vol] 160 U/L High 38-113 [facility] Comment on above: Order Comment: Speci men Type: BLOOD SPECIMENOrdering Facility: [facility] Address: [address] [place] [address] Performed By: #### 2 4362-6, , 77839-5 ####[facility] LABORATORYCLIA [id number] [place] [address] [place] ALT With P-5'-P [Catalytic activity/Vol] 25 U/L Normal 10-54 [facility] Comment on above: Order Comment: Speci men Type: BLOOD SPECIMENOrdering Facility: [facility] Address: [address] [place] [address] Performed By: #### 2 4362-6, , 94102-3 ####[facility] LABORATORYCLIA [id number] [address] STATES [facility] AST With P-5'-P [Catalytic activity/Vol] 45 U/L High 14-40 [facility] Comment on above: Order Comment: Speci men Type: BLOOD SPECIMENOrdering Facility: [facility] Address: [address] [place] [address] Performed By: #### 2 4362-6, , 73299-9 ####[facility] LABORATORYCLIA [id number] [address] [place] Bilirubin [Mass/Vol] 4.1 mg/dL High 0.2-1.3 [facility] Comment on above: Order Comment: Speci men Type: BLOOD SPECIMENOrdering Facility: [facility] Address: [address] [place] [address] Performed By: #### 2 4362-6, , 95259-7 ####[facility] LABORATORYCLIA [id number] [address] Bilirubin.conjugated [Mass/Vol] 2.9 mg/dL High <0.3 [facility] Comment on above: Order Comment: Speci men Type: BLOOD SPECIMENOrdering Facility: [facility] Address: [address] [place] [address] Performed By: #### 2 4362-6, 09316-1, 65983-0 ####[facility] LABORATORYCLIA [id number] [address] Protein [Mass/Vol] 7.1 g/dL Normal 6.3-8.0 [facility] Comment on above: Order Comment: Speci men Type: BLOOD SPECIMENOrdering Facility: [facility] Address: [address] [place] [address] Performed By: #### 2 4362-6, 13984-6, 06072-6 ####[facility] LABORATORYCLIA [id number] [address] Magnesium SerPl-mCncon 12-17 Magnesium [Mass/Vol] 2.2 mg/dL Normal 1.7-2.3 [facility] Comment on above: Order Comment: Speci men Type: BLOOD SPECIMENOrdering Facility: [facility] Address: [address] [place] [address] Performed By: #### 2 4362-6, , 50713-3 ####[facility] LABORATORYCLIA [id number] [address] [place] Renal function 2000 panelon 12-17-2024 Albumin [Mass/Vol] 2.8 g/dL Low 3.9-4.9 [facility] Comment on above: Order Comment: Speci men Type: BLOOD SPECIMENOrdering Facility: [facility] Address: [address] [place] [address] Performed By: #### 2 4362-6, 11715-9, 98981-2 ####[facility] LABORATORYCLIA [id number] [place] [id number] [place] Anion gap [Moles/Vol] 12 mmol/L Normal 8-15 [facility] Comment on above: Order Comment: Speci men Type: BLOOD SPECIMENOrdering Facility: [facility] Address: [address] [place] [address] Performed By: #### 2 4362-6, , 67371-1 ####[facility] LABORATORYCLIA [id number] [place] [address] [place] Calcium [Mass/Vol] 9.1 mg/dL Normal 8.5-10.2 [facility] Comment on above: Order Comment: Speci men Type: BLOOD SPECIMENOrdering Facility: [facility] Address: [address] [place] [address] Performed By: #### 2 4362-6, , ####[facility] LABORATORYCLIA [id number] [place] [address] [place] Chloride [Moles/Vol] 97 mmol/L Low 98-107 [facility] Comment on above: Order Comment: Speci men Type: BLOOD SPECIMENOrdering Facility: [facility] Address: [address] [place] [address] Performed By: #### 2 4362-6, , ####[facility] LABORATORYCLIA [id number] [place] [id number] [place] CO2 [Moles/Vol] 23 mmol/L Normal 22-30 [facility] Comment on above: Order Comment: Speci men Type: BLOOD SPECIMENOrdering Facility: [facility] Address: [address] [place] [address] Performed By: #### 2 4362-6, , 26597-8 ####[facility] LABORATORYCLIA [id number] [place] [address] [place] Creatinine [Mass/Vol] 1.56 mg/dL High 0.73-1.22 [facility] Comment on above: Order Comment: Speci men Type: BLOOD SPECIMENOrdering Facility: [facility] Address: [address] [place] [address] Performed By: #### 2 4362-6, 72138-1, 61190-1 ####[facility] COUNTYCLIA [id number] [place] [id number] [place] Creatinine and Glomerular filtration rate.predicted panel (S/P/Bld) 48 mL/min/1.73m??? Low >=60 [facility] Comment on above: Order Comment: Franchesca estrada Type: BLOOD SPECIMENOrdering Facility: [facility] Address: [address] [place] [address] Result Comment: Marcela mated Glomerular Filtration Rate [...] actual GFR. Performed By: #### 2 4362-6, 16819-4, 37778-5 ####[facility] LABORATORYIA [id number] [place] [id number] [place] Glucose [Mass/Vol] 101 mg/dL High 74-99 [facility] Comment on above: Order Comment: Franchesca estrada Type: BLOOD SPECIMENOrdering Facility: [facility] Address: [address] [place] [address] Result Comment: [employer] [place] [employer] (ADA) provides guidance for cutoff [...] Standards of Medical Care in Diabetes 2016, [place] [employer]. Diabetes Care. 2016.39(Suppl 1). Performed By: #### 2 4362-6, , 83147-4 ####[facility] LABORATORYCLIA [id number] [place] [address] [place] Phosphate [Mass/Vol] 3.3 mg/dL Normal 2.7-4.8 [facility] Comment on above: Order Comment: Speci men Type: BLOOD SPECIMENOrdering Facility: [facility] Address: [address] [place] [address] Performed By: #### 2 4362-6, , 73499-5 ####[facility] LABORATORYCLIA [id number] [place] [address] [place] Potassium [Moles/Vol] 4.7 mmol/L Normal 3.7-5.1 [facility] Comment on above: Order Comment: Speci men Type: BLOOD SPECIMENOrdering Facility: [facility] Address: [address] [place] [address] Performed By: #### 2 4362-6, , 42975-6 ####[facility] LABORATORYCLIA [id number] [place] [id number] [place] Sodium [Moles/Vol] 132 mmol/L Low 136-144 [facility] Comment on above: Order Comment: Speci men Type: BLOOD SPECIMENOrdering Facility: [facility] Address: [address] [place] [address] Performed By: #### 2 4362-6, , 69037-3 ####[facility] LABORATORYCLIA [id number] [place] [id number] [place] Urea nitrogen [Mass/Vol] 28 mg/dL High 9-24 [facility] Comment on above: Order Comment: Speci men Type: BLOOD SPECIMENOrdering Facility: [facility] Address: [address] [place] [address] Performed By: #### 2 4362-6, , 50408-5 ####[facility] LABORATORYCLIA [id number] [place] [address] [place] CASE MANAGEMon 12-16-2024 CASE MANAGEM Normal [facility] CBC W Auto Differential pane l (Bld)on 12-16-2024 Anisocytosis Ql (Bld) Present [facility] Comment on above: Order Comment: Speci men Type: BLOOD SPECIMENOrdering Facility: [facility] Address: [address] [place] [address] Performed By: #### 5 7021-8, 65345-0 ####[facility]ATORYCLIA [id number] [address] STATES OF [facility] Basophils (Bld) [#/Vol] 0.00 10*3/uL Normal <0.11 [facility] Comment on above: Order Comment: Speci men Type: BLOOD SPECIMENOrdering Facility: [facility] Address: [address] [place] [address] Performed By: #### 5 7021-8, 61443-1 ####[facility] LABORATORYCLIA [id number] [address] STATES [place] Basophils/100 WBC (Bld) 0.0 % Normal A [facility] Comment on above: Order Comment: Speci men Type: BLOOD SPECIMENOrdering Facility: [facility] Address: [address] [place] [address] Performed By: #### 5 7021-8, 09336-8 ####[facility] LABORATORYCLIA [id number] [address] STATES [place] Differential cell count method Nom (Bld) Manual Normal [facility] Comment on above: Order Comment: Speci men Type: BLOOD SPECIMENOrdering Facility: [facility] Address: [address] [place] [address] Performed By: #### 5 7021-8, 18734-3 ####[facility] LABORATORYCLIA [id number] [place] [address] [place] Eosinophils (Bld) [#/Vol] 0.00 10*3/uL Normal <0.46 [facility] Comment on above: Order Comment: Speci men Type: BLOOD SPECIMENOrdering Facility: [facility] Address: [address] [place] [address] Performed By: #### 5 7021-8, 10412-7 ####[facility] LABORATORYCLIA [id number] [address] STATES [place] Eosinophils/100 WBC (Bld) 0.0 % Normal [facility] Comment on above: Order Comment: Speci men Type: BLOOD SPECIMENOrdering Facility: [facility] Address: [address] [place] [address] Performed By: #### 5 7021-8, 51166-9 ####[facility] LABORATORYCLIA [id number] [address] STATES [place] Erythrocyte distribution width (RBC) [Ratio] 23.5 % High 11.5-15.0 [facility] Comment on above: Order Comment: Speci men Type: BLOOD SPECIMENOrdering Facility: [facility] Address: [address] [place] [address] Performed By: #### 5 7021-8, 51303-5 ####[facility] LABORATORYCLIA [id number] [address] STATES [place] Hematocrit (Bld) [Volume fraction] 19.9 % Low 39.0-51.0 [facility] Comment on above: Order Comment: Speci men Type: BLOOD SPECIMENOrdering Facility: [facility] Address: [address] [place] [address] Performed By: #### 5 7021-8, 04076-7 ####[facility] LABORATORYCLIA [id number] [place] [address] [place] Hemoglobin (Bld) [Mass/Vol] 6.6 g/dL Low 13.0-17.0 [facility] Comment on above: Order Comment: Speci men Type: BLOOD SPECIMENOrdering Facility: [facility] Address: [address] [place] [address] Performed By: #### 5 7021-8, 45430-1 ####[facility] LABORATORYCLIA [id number] [place] [address] [place] Lymphocytes (Bld) [#/Vol] 0.23 10*3/uL Low 1.00-4.00 [facility] Comment on above: Order Comment: Speci men Type: BLOOD SPECIMENOrdering Facility: [facility] Address: [address] [place] [address] Performed By: #### 5 7021-8, 85376-7 ####[facility] LABORATORYCLIA [id number] [address] Lymphocytes/100 WBC (Bld) 1.0 % Normal [facility] Comment on above: Order Comment: Speci men Type: BLOOD SPECIMENOrdering Facility: [facility] Address: [address] [place] [address] Performed By: #### 5 7021-8, 09450-7 ####[facility] LABORATORYCLIA [id number] [address] STATES [place] MCH (RBC) [Entitic mass] 31.7 pg Normal 26.0-34.0 [facility] Comment on above: Order Comment: Speci men Type: BLOOD SPECIMENOrdering Facility: [facility] Address: [address] [place] [address] Performed By: #### 5 7021-8, 06984-8 ####[facility] LABORATORYCLIA [id number] [address] STATES OF [facility] MCHC (RBC) [Mass/Vol] 33.2 g/dL Normal 30.5-36.0 [facility] Comment on above: Order Comment: Speci men Type: BLOOD SPECIMENOrdering Facility: [facility] Address: [address] [place] [address] Performed By: #### 5 7021-8, 37751-7 ####[facility] LABORATORYCLIA [id number] [address] STATES [facility] MCV (RBC) [Entitic vol] 95.7 fL Normal 80.0-100.0 [facility] Comment on above: Order Comment: Speci men Type: BLOOD SPECIMENOrdering Facility: [facility] Address: [address] [place] [address] Performed By: #### 5 7021-8, 39403-7 ####[facility]ORATORYCLIA [id number] [place], [place] [id number] [place] [address] [place] Metamyelocytes/100 WBC (Bld) 2.0 % Normal [facility] Comment on above: Order Comment: Speci men Type: BLOOD SPECIMENOrdering Facility: [facility] Address: [facility] [place] [address] Performed By: #### 5 7021-8, 61629-9 ####[facility]ORATORYCLIA [id number] [address] [place] Monocytes (Bld) [#/Vol] 0.94 10*3/uL High <0.87 [facility] Comment on above: Order Comment: Speci men Type: BLOOD SPECIMENOrdering Facility: [facility] Address: [address] [place] [address] Performed By: #### 5 7021-8, 52809-4 ####[facility]ORATORYCLIA [id number] [address] OF [facility] Monocytes/100 WBC (Bld) 4.0 % Normal [facility] Comment on above: Order Comment: Speci men Type: BLOOD SPECIMENOrdering Facility: [facility] Address: [address] [place] [address] Performed By: #### 5 7021-8, 30447-4 ####[facility]ORATORYCLIA [id number] [place], [place] [address] [place] [address] [place] MYELO% 1.0 % Normal [facility] Comment on above: Order Comment: Speci men Type: BLOOD SPECIMENOrdering Facility: [facility] Address: [facility] [place] [address] Performed By: #### 5 7021-8, 94453-3 ####[facility] [facility]ORATORYCLIA [id number] [place] [address] [place] Neutrophils (Bld) [#/Vol] 21.52 10*3/uL High 1.45-7.50 [facility] Comment on above: Order Comment: Speci men Type: BLOOD SPECIMENOrdering Facility: [facility] Address: [address] [place] [address] Performed By: #### 5 7021-8, 13982-6 ####[facility] LABORATORYCLIA [id number] [address] Neutrophils/100 WBC (Bld) 92.0 % Normal [facility] Comment on above: Order Comment: Speci men Type: BLOOD SPECIMENOrdering Facility: [facility] Address: [address] [place] [address] Performed By: #### 5 7021-8, 58041-1 ####[facility] LABORATORYCLIA [id number] [address] [place] Nucleated RBC (Bld) [#/Vol] 10*3/uL Normal <0.01 [facility] Comment on above: Order Comment: Speci men Type: BLOOD SPECIMENOrdering Facility: [facility] Address: [address] [place] [address] Performed By: #### 5 7021-8, 53998-9 ####[facility] LABORATORYCLIA [id number] [address] STATES [facility] Nucleated RBC/100 WBC (Bld) [Ratio] 0.0 /100 WBC Normal [facility] Comment on above: Order Comment: Speci men Type: BLOOD SPECIMENOrdering Facility: [facility] Address: [address] [place] [address] Performed By: #### 5 7021-8, 22395-0 ####[facility]ORATORYCLIA [id number] [place] [address] [place] Platelet mean volume (Bld) [Entitic vol] 9.5 fL Normal 9.0-12.7 [facility] Comment on above: Order Comment: Speci men Type: BLOOD SPECIMENOrdering Facility: [facility] Address: [address] [place] [address] Performed By: #### 5 7021-8, 03013-4 ####[facility]ORATORYCLIA [id number] [place] [address] [place] Platelets (Bld) [#/Vol] 422 10*3/uL High 150-400 [facility] Comment on above: Order Comment: Speci men Type: BLOOD SPECIMENOrdering Facility: [facility] Address: [facility] [place] [address] Performed By: #### 5 7021-8, 35692-5 ####[facility] LABORATORYCLIA [id number] [place] [address] [place] Platelets Estimate (Bld) [#/Vol] Increased Normal [facility] Comment on above: Order Comment: Speci men Type: BLOOD SPECIMENOrdering Facility: [facility] Address: [address] [place] [address] Performed By: #### 5 7021-8, 69125-0 ####[facility] LABORATORYCLIA [id number] [address] STATES [place] Polychromasia LM Ql (Bld) Slight Normal [facility] Comment on above: Order Comment: Speci men Type: BLOOD SPECIMENOrdering Facility: [facility] Address: [address] [place] [address] Performed By: #### 5 7021-8, 04330-0 ####[facility] LABORATORYCLIA [id number] [place] [address] [place] RBC (Bld) [#/Vol] 2.08 10*6/uL Low 4.20-6.00 [facility] Comment on above: Order Comment: Speci men Type: BLOOD SPECIMENOrdering Facility: [facility] Address: [address] [place] [address] Performed By: #### 5 7021-8, 22416-4 ####[facility] LABORATORYCLIA [id number] [address] OF [place] RED CELL MORPH Reviewed: see result s of individual morphologies Normal [facility] Comment on above: Order Comment: Speci men Type: BLOOD SPECIMENOrdering Facility: [facility] Address: [address] [place] [address] Performed By: #### 5 7021-8, 62458-3 ####[facility] LABORATORYCLIA [id number] [address] [place] WBC (Bld) [#/Vol] 23.39 10*3/uL High 3.70-11.00 [facility] Comment on above: Order Comment: Speci men Type: BLOOD SPECIMENOrdering Facility: [facility] Address: [address] [place] [address] Performed By: #### 5 7021-8, 68772-7 ####[facility] LABORATORYCLIA [id number] [address] WBC Left Shift Ql (Bld) Present Normal A [facility] Comment on above: Order Comment: Speci men Type: BLOOD SPECIMENOrdering Facility: [facility] Address: [address] [place] [address] Performed By: #### 5 7021-8, 64383-5 ####[facility] LABORATORYCLIA [id number] [address] CBC W Ordered Manual Differe ntial panel (Bld)on 12-16-2024 ANISOCYTOSIS Present Normal [facility] Comment on above: Order Comment: Speci men Type: BLOOD SPECIMENOrdering Facility: [facility] Address: [address] [place] [address] Performed By: #### 5 7782-5, STFREV ####[facility] LABORATORYCLIA [id number] [address] OF [facility] Basophils (Bld) [#/Vol] 0.00 10*3/uL Normal <0.11 [facility] Comment on above: Order Comment: Speci men Type: BLOOD SPECIMENOrdering Facility: [facility] Address: [address] [place] [address] Performed By: #### 5 7782-5, STFREV ####[facility] LABORATORYCLIA [id number] [address] Basophils/100 WBC (Bld) 0.0 % Normal A [facility] Comment on above: Order Comment: Speci men Type: BLOOD SPECIMENOrdering Facility: [facility] Address: [address] [place] [address] Performed By: #### 5 7782-5, STFREV ####[facility] LABORATORYCLIA [id number] [address] Differential cell count method Nom (Bld) Manual Normal [facility] Comment on above: Order Comment: Speci men Type: BLOOD SPECIMENOrdering Facility: [facility] Address: [address] [place] [address] Performed By: #### 5 7782-5, STFREV ####[facility]ATORYCLIA [id number] [address] STATES OF [facility] Eosinophils (Bld) [#/Vol] 0.00 10*3/uL Normal <0.46 [facility] Comment on above: Order Comment: Speci men Type: BLOOD SPECIMENOrdering Facility: [facility] Address: [address] [place] [address] Performed By: #### 5 7782-5, STFREV ####[facility] LABORATORYCLIA [id number] [address] Eosinophils/100 WBC (Bld) 0.0 % Normal [facility] Comment on above: Order Comment: Speci men Type: BLOOD SPECIMENOrdering Facility: [facility] Address: [address] [place] [address] Performed By: #### 5 7782-5, STFREV ####[facility] LABORATORYCLIA [id number] [address] [place] Erythrocyte distribution width (RBC) [Ratio] 21.5 % High 11.5-15.0 [facility] Comment on above: Order Comment: Speci men Type: BLOOD SPECIMENOrdering Facility: [facility] Address: [address] [place] [address] Performed By: #### 5 7782-5, STFREV ####[facility] LABORATORYCLIA [id number] [address] [place] Hematocrit (Bld) [Volume fraction] 23.8 % Low 39.0-51.0 [facility] Comment on above: Order Comment: Speci men Type: BLOOD SPECIMENOrdering Facility: [facility] Address: [address] [place] [address] Performed By: #### 5 7782-5, STFREV ####[facility] LABORATORYCLIA [id number] [address] [place] Hemoglobin (Bld) [Mass/Vol] 7.7 g/dL Low 13.0-17.0 [facility] Comment on above: Order Comment: Speci men Type: BLOOD SPECIMENOrdering Facility: [facility] Address: [address] [place] [address] Performed By: #### 5 7782-5, STFREV ####[facility] LABORATORYCLIA [id number] [address] [place] Lymphocytes (Bld) [#/Vol] 0.61 10*3/uL Low 1.00-4.00 [facility] Comment on above: Order Comment: Speci men Type: BLOOD SPECIMENOrdering Facility: [facility] Address: [address] [place] [address] Performed By: #### 5 7782-5, STFREV ####[facility] LABORATORYCLIA [id number] [address] [place] Lymphocytes/100 WBC (Bld) 3.0 % Normal [facility] Comment on above: Order Comment: Speci men Type: BLOOD SPECIMENOrdering Facility: [facility] Address: [address] [place] [address] Performed By: #### 5 7782-5, STFREV ####[facility] LABORATORYCLIA [id number] [address] STATES [place] MCH (RBC) [Entitic mass] 30.1 pg Normal 26.0-34.0 [facility] Comment on above: Order Comment: Speci men Type: BLOOD SPECIMENOrdering Facility: [facility] Address: [address] [place] [address] Performed By: #### 5 7782-5, STFREV ####[facility] LABORATORYCLIA [id number] [address] STATES [facility] MCHC (RBC) [Mass/Vol] 32.4 g/dL Normal 30.5-36.0 [facility] Comment on above: Order Comment: Speci men Type: BLOOD SPECIMENOrdering Facility: [facility] Address: [address] [place] [address] Performed By: #### 5 7782-5, STFREV ####[facility] LABORATORYCLIA [id number] [address] MCV (RBC) [Entitic vol] 93.0 fL Normal 80.0-100.0 [facility] Comment on above: Order Comment: Speci men Type: BLOOD SPECIMENOrdering Facility: [facility] Address: [address] [place] [address] Performed By: #### 5 7782-5, STFREV ####[facility] LABORATORYCLIA [id number] [address] META% 4.0 % Normal [facility] Comment on above: Order Comment: Speci men Type: BLOOD SPECIMENOrdering Facility: [facility] Address: [address] [place] [address] Performed By: #### 5 7782-5, STFREV ####[facility] LABORATORYCLIA [id number] [address] [place] Monocytes (Bld) [#/Vol] 1.23 10*3/uL High <0.87 [facility] Comment on above: Order Comment: Speci men Type: BLOOD SPECIMENOrdering Facility: [facility] Address: [address] [place] [address] Performed By: #### 5 7782-5, STFREV ####[facility]ATORYCLIA [id number] [address] [place] Monocytes/100 WBC (Bld) 6.0 % Normal A [facility] Comment on above: Order Comment: Speci men Type: BLOOD SPECIMENOrdering Facility: [facility] Address: [address] [place] [address] Performed By: #### 5 7782-5, STFREV ####[facility] LABORATORYCLIA [id number] [address] STATES [place] MYELO% 1.0 % Normal [facility] Comment on above: Order Comment: Speci men Type: BLOOD SPECIMENOrdering Facility: [facility] Address: [address] [place] [address] Performed By: #### 5 7782-5, STFREV ####[facility] LABORATORYCLIA [id number] [address] [place] Neutrophils (Bld) [#/Vol] 17.60 10*3/uL High 1.45-7.50 [facility] Comment on above: Order Comment: Speci men Type: BLOOD SPECIMENOrdering Facility: [facility] Address: [address] [place] [address] Performed By: #### 5 7782-5, STFREV ####[facility] LABORATORYCLIA [id number] [address] Neutrophils/100 WBC (Bld) 86.0 % Normal [facility] Comment on above: Order Comment: Speci men Type: BLOOD SPECIMENOrdering Facility: [facility] Address: [address] [place] [address] Performed By: #### 5 7782-5, STFREV ####[facility] LABORATORYCLIA [id number] [address] [place] Nucleated RBC (Bld) [#/Vol] 10*3/uL Normal <0.01 [facility] Comment on above: Order Comment: Speci men Type: BLOOD SPECIMENOrdering Facility: [facility] Address: [address] [place] [address] Performed By: #### 5 7782-5, STFREV ####[facility] LABORATORYCLIA [id number] [address] [place] Nucleated RBC/100 WBC (Bld) [Ratio] 0.0 /100 WBC Normal [facility] Comment on above: Order Comment: Speci men Type: BLOOD SPECIMENOrdering Facility: [facility] Address: [address] [place] [address] Performed By: #### 5 7782-5, STFREV ####[facility] LABORATORYCLIA [id number] [address] [place] Platelet mean volume (Bld) [Entitic vol] 9.5 fL Normal 9.0-12.7 [facility] Comment on above: Order Comment: Speci men Type: BLOOD SPECIMENOrdering Facility: [facility] Address: [address] [place] [address] Performed By: #### 5 7782-5, STFREV ####[facility] LABORATORYCLIA [id number] [address] [place] Platelets (Bld) [#/Vol] 435 10*3/uL High 150-400 [facility] Comment on above: Order Comment: Speci men Type: BLOOD SPECIMENOrdering Facility: [facility] Address: [address] [place] [address] Performed By: #### 5 7782-5, STFREV ####[facility] LABORATORYCLIA [id number] [address] [place] Platelets Estimate (Bld) [#/Vol] Increased Normal [facility] Comment on above: Order Comment: Speci men Type: BLOOD SPECIMENOrdering Facility: [facility] Address: [address] [place] [address] Performed By: #### 5 7782-5, STFREV ####[facility]ORYCLIA [id number] [address] [place] Polychromasia LM Ql (Bld) Slight Normal [facility] Comment on above: Order Comment: Speci men Type: BLOOD SPECIMENOrdering Facility: [facility] Address: [address] [place] [address] Performed By: #### 5 7782-5, STFREV ####[facility] LABORATORYCLIA [id number] [address] RBC (Bld) [#/Vol] 2.56 10*6/uL Low 4.20-6.00 [facility] Comment on above: Order Comment: Speci men Type: BLOOD SPECIMENOrdering Facility: [facility] Address: [address] [place] [address] Performed By: #### 5 7782-5, STFREV ####[facility] LABORATORYCLIA [id number] [address] RED CELL MORPH Reviewed: see result s of individual morphologies Normal [facility] Comment on above: Order Comment: Speci men Type: BLOOD SPECIMENOrdering Facility: [facility] Address: [address] [place] [address] Performed By: #### 5 7782-5, STFREV ####[facility] LABORATORYCLIA [id number] [address] [facility] WBC (Bld) [#/Vol] 20.47 10*3/uL High 3.70-11.00 [facility] Comment on above: Order Comment: Speci men Type: BLOOD SPECIMENOrdering Facility: [facility] Address: [address] [place] [address] Performed By: #### 5 7782-5, STFREV ####[facility] LABORATORYCLIA [id number] [address] LEDY DIRECTon 12-16-2024 DAGT, ANTI-C3B,C3D Positive Normal [facility] Comment on above: Order Comment: Speci men Type: BLOOD SPECIMENOrdering Facility: [facility] Address: [address] [place] [address] Performed By: #### D AGT ####[facility] BLOOD BANKCLIA [id number] [address] DAGT, ANTI-IGG Negative Normal [facility] Comment on above: Order Comment: Speci men Type: BLOOD SPECIMENOrdering Facility: [facility] Address: [address] [place] [address] Performed By: #### D AGT ####[facility] BLOOD BANKCLIA [id number] [address] DAGT, POLYSPECIFIC AHG Positive Normal [facility] Comment on above: Order Comment: Speci men Type: BLOOD SPECIMENOrdering Facility: [facility] Address: [address] [place] [address] Performed By: #### D AGT ####[facility] BLOOD BANKCLIA [id number] [address] TYPE AND SCREEN EXPIRATION 12/19/2024 23:59 Normal [facility] Comment on above: Order Comment: Speci men Type: BLOOD SPECIMENOrdering Facility: [facility] Address: [address] [place] [address] Performed By: #### D AGT ####[facility] BLOOD BANKCLIA [id number] [address] [place] Haptoglob SerPl-mCncon 12-16 Haptoglobin [Mass/Vol] mg/dL Low 31-238 [facility] Comment on above: Order Comment: Speci men Type: BLOOD SPECIMENOrdering Facility: [facility] Address: [address] [place] [address] Performed By: #### 4 542-7 ####[facility] LABORATORYCLIA [id number] [address] [place] Hep Func 2000 Pnl SerPlon Bilirubin.conjugated [Mass/Vol] 3.4 mg/dL High <0.3 [facility] Comment on above: Order Comment: Speci men Type: BLOOD SPECIMENOrdering Facility: [facility] Address: [address] [place] [address] Performed By: #### D ESTRELLITA, 77605-2, 46477-7 ####[facility] LABORATORYCLIA [id number] [address] [place] Hepatic function 2000 panelo n 12-16-2024 ALP [Catalytic activity/Vol] 125 U/L High 38-113 [facility] Comment on above: Order Comment: Speci men Type: BLOOD SPECIMENOrdering Facility: [facility] Address: [address] [place] [address] Performed By: #### D ESTRELLITA, 30976-2, 13480-7 ####[facility] LABORATORYCLIA [id number] [address] [place] ALT With P-5'-P [Catalytic activity/Vol] 23 U/L Normal 10-54 [facility] Comment on above: Order Comment: Speci men Type: BLOOD SPECIMENOrdering Facility: [facility] Address: [address] [place] [address] Performed By: #### D ESTRELLITA, 05987-3, 07936-4 ####[facility] LABORATORYCLIA [id number] [address] OF [facility] AST With P-5'-P [Catalytic activity/Vol] 39 U/L Normal 14-40 [facility] Comment on above: Order Comment: Speci men Type: BLOOD SPECIMENOrdering Facility: [facility] Address: [address] [place] [address] Performed By: #### D ESTRELLITA, 26146-7, 01529-2 ####[facility] LABORATORYCLIA [id number] [address] [place] Bilirubin [Mass/Vol] 4.8 mg/dL High 0.2-1.3 [facility] Comment on above: Order Comment: Speci men Type: BLOOD SPECIMENOrdering Facility: [facility] Address: [address] [place] [address] Performed By: #### D ESTRELLITA, 05493-3, 25623-0 ####[facility] LABORATORYCLIA [id number] [address] [place] Protein [Mass/Vol] 7.1 g/dL Normal 6.3-8.0 [facility] Comment on above: Order Comment: Speci men Type: BLOOD SPECIMENOrdering Facility: [facility] Address: [address] [place] [address] Performed By: #### D ESTRELLITA, 72123-1, 18823-7 ####[facility] LABORATORYCLIA [id number] [address] [place] LDH SerPl-cCncon 12-16-2024 LDH [Catalytic activity/Vol] 570 U/L High 135-225 [facility] Comment on above: Order Comment: Speci men Type: BLOOD SPECIMENOrdering Facility: [facility] Address: [address] [place] [address] Performed By: #### 2 532-0 ####[facility] LABORATORYCLIA [id number] [address] [place] NUTRITIONon 12-16-2024 NUTRITION Normal [facility] PATHOLOGIST INTERPRETATION C BC/DIFFon 12-16-2024 Yard Brakeman review Jani (Unsp spec) [Interp] Reviewed by Kasi Figueroa MD Normal [facility] Comment on above: Order Comment: Speci men Type: BLOOD SPECIMENOrdering Facility: [facility] Address: [address] [place] [address] Performed By: #### 5 7782-5, STFREV ####[facility] LABORATORYCLIA [id number] [address] STAFF REVIEW, CBCDIF Review of the peripheral smear reveals normocytic anemia, leukocytosis (neutrophilia, absolute monocytosis) and mild thrombocytosis. Granulocytes are slightly left-shifted with otherwise normal morphology. Clinical correlation is recommended. Normal [facility] Comment on above: Order Comment: Speci men Type: BLOOD SPECIMENOrdering Facility: [facility] Address: [address] [place] [address] Performed By: #### 5 7782-5, STFREV ####[facility] LABORATORYCLIA [id number] [address] [place] Renal Func 2000 Pnl SerPlon 12-16-2024 Albumin [Mass/Vol] 3.0 g/dL Low 3.9-4.9 [facility] Comment on above: Order Comment: Speci men Type: BLOOD SPECIMENOrdering Facility: [facility] Address: [address] [place] [address] Performed By: #### D ESTRELLITA, 85347-3, 38114-1 ####[facility]ORATORYCLIA [id number] [place] [address] [place] Renal function 2000 panelon 12-16-2024 Anion gap [Moles/Vol] 14 mmol/L Normal 8-15 [facility] Comment on above: Order Comment: Speci men Type: BLOOD SPECIMENOrdering Facility: [facility] Address: [address] [place] [address] Performed By: #### D ESTRELLITA, 55521-2, 35886-9 ####[facility] LABORATORYCLIA [id number] [place] [address] [place] Calcium [Mass/Vol] 9.0 mg/dL Normal 8.5-10.2 [facility] Comment on above: Order Comment: Speci men Type: BLOOD SPECIMENOrdering Facility: [facility] Address: [address] [place] [address] Performed By: #### Darren ESTRELLITA, 05728-7, 30443-4 ####[facility] LABORATORYCLIA [id number] [place] [address] [place] Chloride [Moles/Vol] 91 mmol/L Low 98-107 [facility] Comment on above: Order Comment: Speci men Type: BLOOD SPECIMENOrdering Facility: [facility] Address: [address] [place] [address] Performed By: #### D ESTRELLITA, 07189-2, 03654-9 ####[facility] LABORATORYCLIA [id number] [place] [address] [place] CO2 [Moles/Vol] 23 mmol/L Normal 22-30 [facility] Comment on above: Order Comment: Speci men Type: BLOOD SPECIMENOrdering Facility: [facility] Address: [address] [place] [address] Performed By: #### D ESTRELLITA, 31229-8, 34994-3 ####[facility] LABORATORYCLIA [id number] [place] [id number] [place] [facility] Creatinine [Mass/Vol] 1.92 mg/dL High 0.73-1.22 [facility] Comment on above: Order Comment: Franchesca men Type: BLOOD SPECIMENOrdering Facility: [facility] Address: [address] [place] [address] Performed By: #### D ESTRELLITA, 71297-8, 44024-1 ####[facility] LABORATORYCLIA [id number] [address] Creatinine and Glomerular filtration rate.predicted panel (S/P/Bld) 37 mL/min/1.73m??? Low >=60 [facility] Comment on above: Order Comment: Franchesca estrada Type: BLOOD SPECIMENOrdering Facility: [facility] Address: [address] [place] [address] Result Comment: Marcela mated Glomerular Filtration Rate [...] accurately reflect actual GFR. Performed By: #### Darren ESTRELLITA, 67152-6, 81581-9 ####[facility] LABORATORYCLIA [id number] [place] [id number] [place] Glucose [Mass/Vol] 106 mg/dL High 74-99 [facility] Comment on above: Order Comment: Franchesca men Type: BLOOD SPECIMENOrdering Facility: [facility] Address: [address] [place] [address] Result Comment: The [place] [employer] (ADA) provides guidance for cutoff [...] Standards of Medical Care in Diabetes 2016, [place] [employer]. Diabetes Care. 2016.39(Suppl 1). Performed By: #### Darren ESTRELLITA, 62368-4, 48399-4 ####[facility] LABORATORYCLIA [id number] [place] [address] [place] Phosphate [Mass/Vol] 4.4 mg/dL Normal 2.7-4.8 [facility] Comment on above: Order Comment: Franchesca estrada Type: BLOOD SPECIMENOrdering Facility: [facility] Address: [address] [place] [address] Performed By: #### Darren ESTRELLITA, 95077-5, 92952-8 ####[facility] LABORATORYCLIA [id number] [place] [address] [place] Potassium [Moles/Vol] 4.3 mmol/L Normal 3.7-5.1 [facility] Comment on above: Order Comment: Franchesca estrada Type: BLOOD SPECIMENOrdering Facility: [facility] Address: [address] [place] [address] Performed By: #### Darren ESTRELLITA, 28594-5, 42330-4 ####[facility] LABORATORYCLIA [id number] [place] [address] [place] Sodium [Moles/Vol] 128 mmol/L Low 136-144 [facility] Comment on above: Order Comment: Franchesca estrada Type: BLOOD SPECIMENOrdering Facility: [facility] Address: [address] [place] [address] Performed By: #### D ESTRELLITA, 43415-5, 64460-3 ####[facility] LABORATORYCLIA [id number] [place] [address] [place] Urea nitrogen [Mass/Vol] 33 mg/dL High 9-24 [facility] Comment on above: Order Comment: Speci men Type: BLOOD SPECIMENOrdering Facility: [facility] Address: [address] [place] [address] Performed By: #### D ESTRELLITA, 07432-8, 44952-1 ####[facility] LABORATORYCLIA [id number] [address] Retics #on 12-16-2024 Reticulocytes (Bld) [#/Vol] 0.75087 10*3/uL High 0.018-0.100 [facility] Comment on above: Order Comment: Speci men Type: BLOOD SPECIMENOrdering Facility: [facility] Address: [address] [place] [address] Performed By: #### 5 7021-8, 58434-2 ####[facility] LABORATORYCLIA [id number] [address] Reticulocytes (Bld) [#/Vol]o n 12-16-2024 Reticulocytes/100 RBC (Bld) 5.4 % High 0.4-2.0 [facility] Comment on above: Order Comment: Speci men Type: BLOOD SPECIMENOrdering Facility: [facility] Address: [address] [place] [address] Performed By: #### 5 7021-8, 89868-3 ####[facility] LABORATORYCLIA [id number] [address] THERAPY NTon 12-16-2024 THERAPY NT Normal [facility] Bacteria Spec Resp Culton Bacteria identified Respiratory culture Nom (Unsp spec) CULTURE, RESPIRATORY: Few Normal respiratory meghna present ORGANISM ID: 1 Rare Pseudomonas fluorescens group Insignificant colony count. No further workup. GRAM STAIN: Few Mixed oral meghna No Polymorphonuclear Leukocytes Rare Epithelial cells Abnormal [facility] Comment on above: Performed By: #### 3 2355-0 ####[facility] LABORATORYCLIA [id number] [address] [place] CBC W Auto Differential pane l (Bld)on 12-15-2024 Anisocytosis Ql (Bld) Present Normal [facility] Comment on above: Order Comment: Speci men Type: BLOOD SPECIMENOrdering Facility: [facility] Address: [address] [place] [address] Performed By: #### 5 7021-8 ####[facility]ORATORYCLIA [id number] [address] OF [facility] Basophils (Bld) [#/Vol] 0.00 10*3/uL Normal <0.11 [facility] Comment on above: Order Comment: Speci men Type: BLOOD SPECIMENOrdering Facility: [facility] Address: [address] [place] [address] Performed By: #### 5 7021-8 ####[facility] LABORATORYCLIA [id number] [address] Basophils/100 WBC (Bld) 0.0 % Normal [facility] Comment on above: Order Comment: Speci men Type: BLOOD SPECIMENOrdering Facility: [facility] Address: [address] [place] [address] Performed By: #### 5 7021-8 ####[facility] LABORATORYCLIA [id number] [address] Differential cell count method Nom (Bld) Manual Normal [facility] Comment on above: Order Comment: Speci men Type: BLOOD SPECIMENOrdering Facility: [facility] Address: [address] [place] [address] Performed By: #### 5 7021-8 ####[facility] LABORATORYCLIA [id number] [address] [place] Eosinophils (Bld) [#/Vol] 0.00 10*3/uL Normal <0.46 [facility] Comment on above: Order Comment: Speci men Type: BLOOD SPECIMENOrdering Facility: [facility] Address: [address] [place] [address] Performed By: #### 5 7021-8 ####[facility] LABORATORYCLIA [id number] [address] Eosinophils/100 WBC (Bld) 0.0 % Normal [facility] Comment on above: Order Comment: Speci men Type: BLOOD SPECIMENOrdering Facility: [facility] Address: [address] [place] [address] Performed By: #### 5 7021-8 ####[facility] LABORATORYCLIA [id number] [address] [place] Erythrocyte distribution width (RBC) [Ratio] 23.2 % High 11.5-15.0 [facility] Comment on above: Order Comment: Speci men Type: BLOOD SPECIMENOrdering Facility: [facility] Address: [address] [place] [address] Performed By: #### 5 7021-8 ####[facility] LABORATORYCLIA [id number] [address] [place] Hematocrit (Bld) [Volume fraction] 23.1 % Low 39.0-51.0 [facility] Comment on above: Order Comment: Speci men Type: BLOOD SPECIMENOrdering Facility: [facility] Address: [address] [place] [address] Performed By: #### 5 7021-8 ####[facility] LABORATORYCLIA [id number] [address] [place] Hemoglobin (Bld) [Mass/Vol] 7.6 g/dL Low 13.0-17.0 [facility] Comment on above: Order Comment: Speci men Type: BLOOD SPECIMENOrdering Facility: [facility] Address: [address] [place] [address] Performed By: #### 5 7021-8 ####[facility] LABORATORYCLIA [id number] [place] [address] [place] Lymphocytes (Bld) [#/Vol] 1.14 10*3/uL Normal 1.00-4.00 [facility] Comment on above: Order Comment: Speci men Type: BLOOD SPECIMENOrdering Facility: [facility] Address: [address] [place] [address] Performed By: #### 5 7021-8 ####[facility]ORATORYCLIA [id number] [address] Lymphocytes/100 WBC (Bld) 6.0 % Normal [facility] Comment on above: Order Comment: Speci men Type: BLOOD SPECIMENOrdering Facility: [facility] Address: [address] [place] [address] Performed By: #### 5 7021-8 ####[facility] LABORATORYCLIA [id number] [address] MCH (RBC) [Entitic mass] 31.3 pg Normal 26.0-34.0 [facility] Comment on above: Order Comment: Speci men Type: BLOOD SPECIMENOrdering Facility: [facility] Address: [address] [place] [address] Performed By: #### 5 7021-8 ####[facility] LABORATORYCLIA [id number] [address] MCHC (RBC) [Mass/Vol] 32.9 g/dL Normal 30.5-36.0 [facility] Comment on above: Order Comment: Speci men Type: BLOOD SPECIMENOrdering Facility: [facility] Address: [address] [place] [address] Performed By: #### 5 7021-8 ####[facility] LABORATORYCLIA [id number] [address] STATES OF [facility] MCV (RBC) [Entitic vol] 95.1 fL Normal 80.0-100.0 [facility] Comment on above: Order Comment: Speci men Type: BLOOD SPECIMENOrdering Facility: [facility] Address: [address] [place] [address] Performed By: #### 5 7021-8 ####[facility] LABORATORYCLIA [id number] [address] Metamyelocytes/100 WBC (Bld) 2.0 % Normal [facility] Comment on above: Order Comment: Speci men Type: BLOOD SPECIMENOrdering Facility: [facility] Address: [address] [place] [address] Performed By: #### 5 7021-8 ####[facility]ORATORYCLIA [id number] [place] [address] [place] Monocytes (Bld) [#/Vol] 1.71 10*3/uL High <0.87 [facility] Comment on above: Order Comment: Speci men Type: BLOOD SPECIMENOrdering Facility: [facility] Address: [address] [place] [address] Performed By: #### 5 7021-8 ####[facility]ORATORYCLIA [id number] [place] [address] [place] Monocytes/100 WBC (Bld) 9.0 % Normal [facility] Comment on above: Order Comment: Speci men Type: BLOOD SPECIMENOrdering Facility: [facility] Address: [address] [place] [address] Performed By: #### 5 7021-8 ####[facility]ORATORYCLIA [id number] [place] [address] [place] MYELO% 2.0 % Normal [facility] Comment on above: Order Comment: Speci men Type: BLOOD SPECIMENOrdering Facility: [facility] Address: [address] [place] [address] Performed By: #### 5 7021-8 ####[facility]ORATORYCLIA [id number] [place] [address] [place] Neutrophils (Bld) [#/Vol] 15.41 10*3/uL High 1.45-7.50 [facility] Comment on above: Order Comment: Speci men Type: BLOOD SPECIMENOrdering Facility: [facility] Address: [address] [place] [address] Performed By: #### 5 7021-8 ####[facility]ORYCLIA [id number] [address] [place] Neutrophils/100 WBC (Bld) 81.0 % Normal [facility] Comment on above: Order Comment: Speci men Type: BLOOD SPECIMENOrdering Facility: [facility] Address: [address] [place] [address] Performed By: #### 5 7021-8 ####[facility] LABORATORYCLIA [id number] [place] [address] [place] Nucleated RBC (Bld) [#/Vol] 10*3/uL Normal <0.01 [facility] Comment on above: Order Comment: Speci men Type: BLOOD SPECIMENOrdering Facility: [facility] Address: [address] [place] [address] Performed By: #### 5 7021-8 ####[facility] LABORATORYCLIA [id number] [address] [place] Nucleated RBC/100 WBC (Bld) [Ratio] 0.0 /100 WBC Normal [facility] Comment on above: Order Comment: Speci men Type: BLOOD SPECIMENOrdering Facility: [facility] Address: [address] [place] [address] Performed By: #### 5 7021-8 ####[facility] LABORATORYCLIA [id number] [address] [place] Platelet mean volume (Bld) [Entitic vol] 9.1 fL Normal 9.0-12.7 [facility] Comment on above: Order Comment: Speci men Type: BLOOD SPECIMENOrdering Facility: [facility] Address: [address] [place] [address] Performed By: #### 5 7021-8 ####[facility] LABORATORYCLIA [id number] [place] [address] [place] Platelets (Bld) [#/Vol] 430 10*3/uL High 150-400 [facility] Comment on above: Order Comment: Speci men Type: BLOOD SPECIMENOrdering Facility: [facility] Address: [address] [place] [address] Performed By: #### 5 7021-8 ####[facility] LABORATORYCLIA [id number] [place] [address] [place] Platelets Estimate (Bld) [#/Vol] Adequate Normal [facility] Comment on above: Order Comment: Speci men Type: BLOOD SPECIMENOrdering Facility: [facility] Address: [address] [place] [address] Performed By: #### 5 7021-8 ####[facility] LABORATORYCLIA [id number] [address] [place] Polychromasia LM Ql (Bld) Slight Normal [facility] Comment on above: Order Comment: Speci men Type: BLOOD SPECIMENOrdering Facility: [facility] Address: [address] [place] [address] Performed By: #### 5 7021-8 ####[facility] LABORATORYCLIA [id number] [address] [place] RBC (Bld) [#/Vol] 2.43 10*6/uL Low 4.20-6.00 [facility] Comment on above: Order Comment: Speci men Type: BLOOD SPECIMENOrdering Facility: [facility] Address: [address] [place] [address] Performed By: #### 5 7021-8 ####[facility] LABORATORYCLIA [id number] [address] RED CELL MORPH Reviewed: see result s of individual morphologies Normal [facility] Comment on above: Order Comment: Speci men Type: BLOOD SPECIMENOrdering Facility: [facility] Address: [address] [place] [address] Performed By: #### 5 7021-8 ####[facility] LABORATORYCLIA [id number] [address] [place] WBC (Bld) [#/Vol] 19.03 10*3/uL High 3.70-11.00 [facility] Comment on above: Order Comment: Speci men Type: BLOOD SPECIMENOrdering Facility: [facility] Address: [address] [place] [address] Performed By: #### 5 7021-8 ####[facility] LABORATORYCLIA [id number] [address] [place] CT ABD/PEL W IVCONon 025 CT ABD/PEL W IVCON Normal [facility] CT CHEST W IVCONon 5 CT CHEST W IVCON Normal [facility] Magnesium SerPl-mCncon 12-15 Magnesium [Mass/Vol] 2.0 mg/dL Normal 1.7-2.3 [facility] Comment on above: Order Comment: Speci men Type: BLOOD SPECIMENOrdering Facility: [facility] Address: [address] [place] [address] Performed By: #### 2 4362-6, ####[facility] LABORATORYCLIA [id number] [place] [address] [place] Renal function 2000 panelon 12-15-2024 Albumin [Mass/Vol] 3.2 g/dL Low 3.9-4.9 [facility] Comment on above: Order Comment: Speci men Type: BLOOD SPECIMENOrdering Facility: [facility] Address: [address] [place] [address] Performed By: #### 2 4362-6, ####[facility] LABORATORYCLIA [id number] [place] [address] [place] Anion gap [Moles/Vol] 12 mmol/L Normal 8-15 [facility] Comment on above: Order Comment: Speci men Type: BLOOD SPECIMENOrdering Facility: [facility] Address: [address] [place] [address] Performed By: #### 2 [id number], ####[facility] LABORATORYCLIA [id number] [place] [address] [place] Calcium [Mass/Vol] 9.2 mg/dL Normal 8.5-10.2 [facility] Comment on above: Order Comment: Speci men Type: BLOOD SPECIMENOrdering Facility: [facility] Address: [address] [place] [address] Performed By: #### 2 4362-6, ####[facility] LABORATORYCLIA [id number] [address] STATES OF [facility] Chloride [Moles/Vol] 94 mmol/L Low 98-107 [facility] Comment on above: Order Comment: Speci men Type: BLOOD SPECIMENOrdering Facility: [facility] Address: [address] [place] [address] Performed By: #### 2 4362-6, ####[facility] LABORATORYCLIA [id number] [address] [place] CO2 [Moles/Vol] 25 mmol/L Normal 22-30 [facility] Comment on above: Order Comment: Speci men Type: BLOOD SPECIMENOrdering Facility: [facility] Address: [address] [place] [address] Performed By: #### 2 4362-6, ####[facility] LABORATORYCLIA [id number] [address] STATES OF [facility] Creatinine [Mass/Vol] 1.32 mg/dL High 0.73-1.22 [facility] Comment on above: Order Comment: Speci men Type: BLOOD SPECIMENOrdering Facility: [facility] Address: [address] [place] [address] Performed By: #### 2 4362-6, ####[facility] LABORATORYCLIA [id number] [address] Creatinine and Glomerular filtration rate.predicted panel (S/P/Bld) 58 mL/min/1.73m??? Low >=60 [facility] Comment on above: Order Comment: Speci men Type: BLOOD SPECIMENOrdering Facility: [facility] Address: [address] [place] [address] Result Comment: Marcela mated Glomerular Filtration Rate [...] actual GFR. Performed By: #### 2 4362-6, ####[facility] LABORATORYCLIA [id number] [place] [address] [place] Glucose [Mass/Vol] 96 mg/dL Normal 74-99 [facility] Comment on above: Order Comment: Speci men Type: BLOOD SPECIMENOrdering Facility: [facility] Address: [address] [place] [address] Result Comment: The [place] Diabetes Association (ADA) provides guidance for cutoff [...] Standards of Medical Care in Diabetes 2016, [place] [employer]. Diabetes Care. 2016.39(Suppl 1). Performed By: #### 2 4362-6, ####[facility] LABORATORYCLIA [id number] [place] [id number] [place] Phosphate [Mass/Vol] 3.8 mg/dL Normal 2.7-4.8 [facility] Comment on above: Order Comment: Speci men Type: BLOOD SPECIMENOrdering Facility: [facility] Address: [address] [place] [address] Performed By: #### 2 4362-6, ####[facility] LABORATORYCLIA [id number] [place] [address] [place] Potassium [Moles/Vol] 4.2 mmol/L Normal 3.7-5.1 [facility] Comment on above: Order Comment: Speci men Type: BLOOD SPECIMENOrdering Facility: [facility] Address: [address] [place], [place] [address] Performed By: #### 2 4362-6, ####[facility] LABORATORYCLIA [id number] [address] STATES OF [facility] Sodium [Moles/Vol] 131 mmol/L Low 136-144 [facility] Comment on above: Order Comment: Speci men Type: BLOOD SPECIMENOrdering Facility: [facility] Address: [address] [place] [address] Performed By: #### 2 4362-6, 80272-3 ####[facility] LABORATORYCLIA [id number] [place] [id number] [place] Urea nitrogen [Mass/Vol] 26 mg/dL High 9-24 [facility] Comment on above: Order Comment: Speci men Type: BLOOD SPECIMENOrdering Facility: [facility] Address: [address] [place] [address] Performed By: #### 2 4362-6, 99054-7 ####[facility] LABORATORYCLIA [id number] [address] CASE MANAGEMon 12-14-2024 CASE MANAGEM Normal [facility] CBC Pnl Bld Autoon 5 Nucleated RBC (Bld) [#/Vol] 10*3/uL Normal <0.01 [facility] Comment on above: Order Comment: Speci men Type: BLOOD SPECIMENOrdering Facility: [facility] Address: [address] [place] [address] Performed By: #### 5 8410-2, 03246-7 ####[facility] LABORATORYCLIA [id number] [address] [place] CBC W Auto Differential pane l (Bld)on 12-14-2024 Anisocytosis Ql (Bld) Present Normal [facility] Comment on above: Order Comment: Speci men Type: BLOOD SPECIMENOrdering Facility: [facility] Address: [address] [place] [address] Performed By: #### 5 8410-2, 80549-7 ####[facility] LABORATORYCLIA [id number] [address] Basophils (Bld) [#/Vol] 0.00 10*3/uL Normal <0.11 [facility] Comment on above: Order Comment: Speci men Type: BLOOD SPECIMENOrdering Facility: [facility] Address: [address] [place] [address] Performed By: #### 5 8410-2, 78358-9 ####[facility]ORATORYCLIA [id number] [place] [address] [place] Basophils/100 WBC (Bld) 0.0 % Normal [facility] Comment on above: Order Comment: Speci men Type: BLOOD SPECIMENOrdering Facility: [facility] Address: [address] [place] [address] Performed By: #### 5 8410-2, 88756-6 ####[facility]ORATORYCLIA [id number] [address] [place] Differential cell count method Nom (Bld) Manual Normal [facility] Comment on above: Order Comment: Speci men Type: BLOOD SPECIMENOrdering Facility: [facility] Address: [address] [place] [address] Performed By: #### 5 8410-2, 33395-2 ####[facility]ORATORYCLIA [id number] [place] [address] [place] Eosinophils (Bld) [#/Vol] 0.00 10*3/uL Normal <0.46 [facility] Comment on above: Order Comment: Speci men Type: BLOOD SPECIMENOrdering Facility: [facility] Address: [address] [place] [address] Performed By: #### 5 8410-2, 52635-6 ####[facility]ORATORYCLIA [id number] [address] Eosinophils/100 WBC (Bld) 0.0 % Normal [facility] Comment on above: Order Comment: Speci men Type: BLOOD SPECIMENOrdering Facility: [facility] Address: [address] [place] [address] Performed By: #### 5 8410-2, 21230-9 ####[facility]ORATORYCLIA [id number] [place] [address] [place] Lymphocytes (Bld) [#/Vol] 1.03 10*3/uL Normal 1.00-4.00 [facility] Comment on above: Order Comment: Speci men Type: BLOOD SPECIMENOrdering Facility: [facility] Address: [address] [place] [address] Performed By: #### 5 8410-2, 90431-0 ####[facility]ORATORYCLIA [id number] [address] [place] Lymphocytes/100 WBC (Bld) 6.0 % Normal [facility] Comment on above: Order Comment: Speci men Type: BLOOD SPECIMENOrdering Facility: [facility] Address: [address] [place] [address] Performed By: #### 5 8410-2, 09003-7 ####[facility]ORATORYCLIA [id number] [address] [place] Metamyelocytes/100 WBC (Bld) 4.0 % Normal [facility] Comment on above: Order Comment: Speci men Type: BLOOD SPECIMENOrdering Facility: [facility] Address: [address] [place] [address] Performed By: #### 5 8410-2, 54878-2 ####[facility]ORATORYCLIA [id number] [place] [address] [place] Monocytes (Bld) [#/Vol] 2.40 10*3/uL High <0.87 [facility] Comment on above: Order Comment: Speci men Type: BLOOD SPECIMENOrdering Facility: [facility] Address: [address] [place] [address] Performed By: #### 5 8410-2, 00844-4 ####[facility]ORATORYCLIA [id number] [address] [place] Monocytes/100 WBC (Bld) 14.0 % Normal A [facility] Comment on above: Order Comment: Speci men Type: BLOOD SPECIMENOrdering Facility: [facility] Address: [address] [place] [address] Performed By: #### 5 8410-2, 80126-9 ####[facility] LABORATORYCLIA [id number] [address] [place] Neutrophils (Bld) [#/Vol] 13.00 10*3/uL High 1.45-7.50 [facility] Comment on above: Order Comment: Speci men Type: BLOOD SPECIMENOrdering Facility: [facility] Address: [address] [place] [address] Performed By: #### 5 8410-2, 90757-6 ####[facility] LABORATORYCLIA [id number] [address] Neutrophils/100 WBC (Bld) 76.0 % Normal [facility] Comment on above: Order Comment: Speci men Type: BLOOD SPECIMENOrdering Facility: [facility] Address: [address] [place] [address] Performed By: #### 5 8410-2, 89470-8 ####[facility] LABORATORYCLIA [id number] [address] STATES [facility] Nucleated RBC/100 WBC (Bld) [Ratio] 0.0 /100 WBC Normal [facility] Comment on above: Order Comment: Speci men Type: BLOOD SPECIMENOrdering Facility: [facility] Address: [address] [place] [address] Performed By: #### 5 8410-2, 87393-6 ####[facility] LABORATORYCLIA [id number] [place] [address] [place] Platelets Estimate (Bld) [#/Vol] Adequate Normal [facility] Comment on above: Order Comment: Speci men Type: BLOOD SPECIMENOrdering Facility: [facility] Address: [address] [place] [address] Performed By: #### 5 8410-2, 21914-9 ####[facility] LABORATORYCLIA [id number] [address] [place] Polychromasia LM Ql (Bld) Slight Normal [facility] Comment on above: Order Comment: Speci men Type: BLOOD SPECIMENOrdering Facility: [facility] Address: [address] [place] [address] Performed By: #### 5 8410-2, 35990-6 ####[facility] LABORATORYCLIA [id number] [place] [address] [place] RED CELL MORPH Reviewed: see result s of individual morphologies Normal [facility] Comment on above: Order Comment: Speci men Type: BLOOD SPECIMENOrdering Facility: [facility] Address: [address] [place] [address] Performed By: #### 5 8410-2, 98222-5 ####[facility] LABORATORYCLIA [id number] [place] [address] [place] CBC panel Auto (Bld)on 12-14 Erythrocyte distribution width (RBC) [Ratio] 22.9 % High 11.5-15.0 [facility] Comment on above: Order Comment: Speci men Type: BLOOD SPECIMENOrdering Facility: [facility] Address: [address] [place] [address] Performed By: #### 5 8410-2, 66289-9 ####[facility] LABORATORYCLIA [id number] [place] [address] [place] Hematocrit (Bld) [Volume fraction] 24.5 % Low 39.0-51.0 [facility] Comment on above: Order Comment: Speci men Type: BLOOD SPECIMENOrdering Facility: [facility] Address: [address] [place] [address] Performed By: #### 5 8410-2, 84134-6 ####[facility] LABORATORYCLIA [id number] [place] [address] [place] Hemoglobin (Bld) [Mass/Vol] 8.2 g/dL Low 13.0-17.0 [facility] Comment on above: Order Comment: Speci men Type: BLOOD SPECIMENOrdering Facility: [facility] Address: [address] [place] [address] Performed By: #### 5 8410-2, 20881-8 ####[facility] LABORATORYCLIA [id number] [address] MCH (RBC) [Entitic mass] 31.4 pg Normal 26.0-34.0 [facility] Comment on above: Order Comment: Speci men Type: BLOOD SPECIMENOrdering Facility: [facility] Address: [address] [place] [address] Performed By: #### 5 8410-2, 16876-7 ####[facility] LABORATORYCLIA [id number] [address] STATES OF [facility] MCHC (RBC) [Mass/Vol] 33.5 g/dL Normal 30.5-36.0 [facility] Comment on above: Order Comment: Speci men Type: BLOOD SPECIMENOrdering Facility: [facility] Address: [address] [place] [address] Performed By: #### 5 8410-2, 66051-8 ####[facility] LABORATORYCLIA [id number] [address] STATES OF [facility] MCV (RBC) [Entitic vol] 93.9 fL Normal 80.0-100.0 [facility] Comment on above: Order Comment: Speci men Type: BLOOD SPECIMENOrdering Facility: [facility] Address: [address] [place] [address] Performed By: #### 5 8410-2, 09742-5 ####[facility] LABORATORYCLIA [id number] [address] STATES [facility] Platelet mean volume (Bld) [Entitic vol] 9.4 fL Normal 9.0-12.7 [facility] Comment on above: Order Comment: Speci men Type: BLOOD SPECIMENOrdering Facility: [facility] Address: [address] [place] [address] Performed By: #### 5 8410-2, 31780-7 ####[facility] LABORATORYCLIA [id number] [address] Platelets (Bld) [#/Vol] 441 10*3/uL High 150-400 [facility] Comment on above: Order Comment: Speci men Type: BLOOD SPECIMENOrdering Facility: [facility] Address: [address] [place] [address] Performed By: #### 5 8410-2, 62775-3 ####[facility] LABORATORYCLIA [id number] [place] [address] [place] RBC (Bld) [#/Vol] 2.61 10*6/uL Low 4.20-6.00 [facility] Comment on above: Order Comment: Speci men Type: BLOOD SPECIMENOrdering Facility: [facility] Address: [address] [place] [address] Performed By: #### 5 8410-2, 27149-6 ####[facility] LABORATORYCLIA [id number] [address] STATES OF [facility] WBC (Bld) [#/Vol] 17.11 10*3/uL High 3.70-11.00 [facility] Comment on above: Order Comment: Speci men Type: BLOOD SPECIMENOrdering Facility: [facility] Address: [address] [place] [address] Performed By: #### 5 8410-2, 57940-7 ####[facility] LABORATORYCLIA [id number] [place] [address] [facility] Renal function 2000 panelon 12-14-2024 Albumin [Mass/Vol] 3.1 g/dL Low 3.9-4.9 [facility] Comment on above: Order Comment: Speci men Type: BLOOD SPECIMENOrdering Facility: [facility] Address: [address] [place] [address] Performed By: #### 2 4362-6 ####[facility] LABORATORYCLIA [id number] [address] Anion gap [Moles/Vol] 11 mmol/L Normal 8-15 [facility] Comment on above: Order Comment: Speci men Type: BLOOD SPECIMENOrdering Facility: [facility] Address: [address] [place] [address] Performed By: #### 2 4362-6 ####[facility] LABORATORYCLIA [id number] [place] [address] [place] Calcium [Mass/Vol] 9.2 mg/dL Normal 8.5-10.2 [facility] Comment on above: Order Comment: Speci men Type: BLOOD SPECIMENOrdering Facility: [facility] Address: [address] [place] [address] Performed By: #### 2 4362-6 ####[facility] LABORATORYCLIA [id number] [place] [address] [place] Chloride [Moles/Vol] 93 mmol/L Low 98-107 [facility] Comment on above: Order Comment: Speci men Type: BLOOD SPECIMENOrdering Facility: [facility] Address: [address] [place] [address] Performed By: #### 2 4362-6 ####[facility] LABORATORYCLIA [id number] [place] [address] [place] CO2 [Moles/Vol] 27 mmol/L Normal 22-30 [facility] Comment on above: Order Comment: Speci men Type: BLOOD SPECIMENOrdering Facility: [facility] Address: [address] [place] [address] Performed By: #### 2 4362-6 ####[facility] LABORATORYCLIA [id number] [place] [address] [place] Creatinine [Mass/Vol] 1.36 mg/dL High 0.73-1.22 [facility] Comment on above: Order Comment: Speci men Type: BLOOD SPECIMENOrdering Facility: [facility] Address: [address] [place] [address] Performed By: #### 2 4362-6 ####[facility] LABORATORYCLIA [id number] [address] [place] Creatinine and Glomerular filtration rate.predicted panel (S/P/Bld) 56 mL/min/1.73m??? Low >=60 [facility] Comment on above: Order Comment: Franchesca estrada Type: BLOOD SPECIMENOrdering Facility: [facility] Address: [address] [place] [address] Result Comment: Marcela mated Glomerular Filtration Rate [...] actual GFR. Performed By: #### 2 4362-6 ####[facility] LABORATORYCLIA [id number] [place] [address] [place] Glucose [Mass/Vol] 97 mg/dL Normal 74-99 [facility] Comment on above: Order Comment: Franchesca estrada Type: BLOOD SPECIMENOrdering Facility: [facility] Address: [address] [place] [address] Result Comment: The [place] [employer] (ADA) provides guidance for cutoff [...] Standards of Medical Care in Diabetes 2016, [place] [employer]. Diabetes Care. 2016.39(Suppl 1). Performed By: #### 2 4362-6 ####[facility] LABORATORYCLIA [id number] [place] [address] [place] Phosphate [Mass/Vol] 3.9 mg/dL Normal 2.7-4.8 [facility] Comment on above: Order Comment: Franchesca estrada Type: BLOOD SPECIMENOrdering Facility: [facility] Address: [address] [place] [address] Performed By: #### 2 4362-6 ####[facility]ATORYCLIA [id number] [address] STATES OF [facility] Potassium [Moles/Vol] 4.7 mmol/L Normal 3.7-5.1 [facility] Comment on above: Order Comment: Speci men Type: BLOOD SPECIMENOrdering Facility: [facility] Address: [address] [place] [address] Performed By: #### 2 4362-6 ####[facility] LABORATORYCLIA [id number] [address] STATES [facility] Sodium [Moles/Vol] 131 mmol/L Low 136-144 [facility] Comment on above: Order Comment: Speci men Type: BLOOD SPECIMENOrdering Facility: [facility] Address: [address] [place] [address] Performed By: #### 2 4362-6 ####[facility] LABORATORYCLIA [id number] [address] Urea nitrogen [Mass/Vol] 27 mg/dL High 9-24 [facility] Comment on above: Order Comment: Speci men Type: BLOOD SPECIMENOrdering Facility: [facility] Address: [address] [place] [address] Performed By: #### 2 4362-6 ####[facility] LABORATORYCLIA [id number] [address] Bacteria Bld Culton 12-14-19 25 Bacteria identified Cx Nom (Bld) CULTURE, BLOOD: No growth 5 days Normal [facility] Comment on above: Performed By: #### 6 00-7 ####[facility] LABORATORYCLIA [id number] [address] Bacteria identified Cx Nom (Bld) CULTURE, BLOOD: No growth 5 days Normal [facility] Comment on above: Performed By: #### 6 00-7 ####[facility] LABORATORYCLIA [id number] [address] OF [facility] CBC panel Auto (Bld)on 12-13 Erythrocyte distribution width (RBC) [Ratio] 20.3 % High 11.5-15.0 [facility] Comment on above: Order Comment: Speci men Type: BLOOD SPECIMENOrdering Facility: [facility] Address: [address] [place] [address] Performed By: #### 5 8410-2 ####[facility] LABORATORYCLIA [id number] [address] Hematocrit (Bld) [Volume fraction] 22.5 % Low 39.0-51.0 [facility] Comment on above: Order Comment: Speci men Type: BLOOD SPECIMENOrdering Facility: [facility] Address: [address] [place] [address] Performed By: #### 5 8410-2 ####[facility] LABORATORYCLIA [id number] [address] [place] Hemoglobin (Bld) [Mass/Vol] 7.5 g/dL Low 13.0-17.0 [facility] Comment on above: Order Comment: Speci men Type: BLOOD SPECIMENOrdering Facility: [facility] Address: [address] [place] [address] Performed By: #### 5 8410-2 ####[facility] LABORATORYCLIA [id number] [address] [place] MCH (RBC) [Entitic mass] 31.9 pg Normal 26.0-34.0 [facility] Comment on above: Order Comment: Speci men Type: BLOOD SPECIMENOrdering Facility: [facility] Address: [address] [place] [address] Performed By: #### 5 8410-2 ####[facility] LABORATORYCLIA [id number] [address] STATES [facility] MCHC (RBC) [Mass/Vol] 33.3 g/dL Normal 30.5-36.0 [facility] Comment on above: Order Comment: Speci men Type: BLOOD SPECIMENOrdering Facility: [facility] Address: [address] [place] [address] Performed By: #### 5 8410-2 ####[facility] LABORATORYCLIA [id number] [address] MCV (RBC) [Entitic vol] 95.7 fL Normal 80.0-100.0 [facility] Comment on above: Order Comment: Speci men Type: BLOOD SPECIMENOrdering Facility: [facility] Address: [address] [place] [address] Performed By: #### 5 8410-2 ####[facility]ORATORYCLIA [id number] [address] [place] Nucleated RBC (Bld) [#/Vol] 10*3/uL Normal <0.01 [facility] Comment on above: Order Comment: Speci men Type: BLOOD SPECIMENOrdering Facility: [facility] Address: [address] [place] [address] Performed By: #### 5 8410-2 ####[facility]ORATORYCLIA [id number] [address] Platelet mean volume (Bld) [Entitic vol] 9.5 fL Normal 9.0-12.7 [facility] Comment on above: Order Comment: Speci men Type: BLOOD SPECIMENOrdering Facility: [facility] Address: [address] [place] [address] Performed By: #### 5 8410-2 ####[facility] LABORATORYCLIA [id number] [address] Platelets (Bld) [#/Vol] 322 10*3/uL Normal 150-400 [facility] Comment on above: Order Comment: Speci men Type: BLOOD SPECIMENOrdering Facility: [facility] Address: [address] [place] [address] Performed By: #### 5 8410-2 ####[facility]ORATORYCLIA [id number] [address] [place] RBC (Bld) [#/Vol] 2.35 10*6/uL Low 4.20-6.00 [facility] Comment on above: Order Comment: Speci men Type: BLOOD SPECIMENOrdering Facility: [facility] Address: [address] [place] [address] Performed By: #### 5 8410-2 ####[facility] LABORATORYCLIA [id number] [place] [address] [place] WBC (Bld) [#/Vol] 15.36 10*3/uL High 3.70-11.00 [facility] Comment on above: Order Comment: Speci men Type: BLOOD SPECIMENOrdering Facility: [facility] Address: [address] [place] [address] Performed By: #### 5 8410-2 ####[facility] LABORATORYCLIA [id number] [address] [place] CRP SerPl-mCncon 12-13-2024 CRP [Mass/Vol] 24.1 mg/dL High <0.9 [facility] Comment on above: Order Comment: Speci men Type: BLOOD SPECIMENOrdering Facility: [facility] Address: [address] [place] [address] Performed By: #### 1 9123-9, 15045-3, 1988-5, 54096-4 ####[facility] LABORATORYCLIA [id number] [address] [place] Gas and Carbon monoxide pane l (BldV)on 12-13-2024 Base excess Calc (BldV) [Moles/Vol] 1 mmol/L Normal 0-2 [facility] Comment on above: Order Comment: Speci men Type: VENOUS BLOOD SPECIMENOrdering Facility: [facility] Address: [address] [place] [address] Performed By: #### 2 4344-4 ####[facility] LABORATORYCLIA [id number] [address] [place] Body temperature 98.6 [degF] Normal [facility] Comment on above: Order Comment: Speci men Type: VENOUS BLOOD SPECIMENOrdering Facility: [facility] Address: [address] [place] [address] Performed By: #### 2 4344-4 ####[facility] LABORATORYCLIA [id number] [address] Calcium.ionized (BldV) [Mass/Vol] 1.10 mmol/L Normal 1.08-1.30 [facility] Comment on above: Order Comment: Speci men Type: VENOUS BLOOD SPECIMENOrdering Facility: [facility] Address: [address] [place] [address] Performed By: #### 2 4344-4 ####[facility] LABORATORYCLIA [id number] [address] Calcium.ionized adjusted to pH 7.4 (BldA) [Moles/Vol] 1.06 mmol/L Low 1.08-1.30 [facility] Comment on above: Order Comment: Speci men Type: VENOUS BLOOD SPECIMENOrdering Facility: [facility] Address: [address] [place] [address] Performed By: #### 2 4344-4 ####[facility] LABORATORYCLIA [id number] [address] Carboxyhemoglobin (BldV) [Mass fraction] 4.3 % High 0.0-2.0 [facility] Comment on above: Order Comment: Speci men Type: VENOUS BLOOD SPECIMENOrdering Facility: [facility] Address: [address] [place] [address] Result Comment: Carb oxyhemoglobin Reference Range for Smokers: 2.0-8.0% Performed By: #### 2 4344-4 ####[facility] LABORATORYCLIA [id number] [address] OF [facility] Chloride [Moles/Vol] 98 mmol/L Normal 97-105 [facility] Comment on above: Order Comment: Speci men Type: VENOUS BLOOD SPECIMENOrdering Facility: [facility] Address: [address] [place] [address] Performed By: #### 2 4344-4 ####[facility] LABORATORYCLIA [id number] [address] CO2 (BldV) [Partial pressure] 50 mm[Hg] Normal 42-55 [facility] Comment on above: Order Comment: Speci men Type: VENOUS BLOOD SPECIMENOrdering Facility: [facility] Address: [address] [place] [address] Performed By: #### 2 4344-4 ####[facility] LABORATORYCLIA [id number] [place] [address] [place] Glucose [Mass/Vol] 122 mg/dL High 60-105 [facility] Comment on above: Order Comment: Speci men Type: VENOUS BLOOD SPECIMENOrdering Facility: [facility] Address: [address] [place] [address] Performed By: #### 2 4344-4 ####[facility] LABORATORYCLIA [id number] [address] [place] HCO3 (Bld) [Moles/Vol] 26 mmol/L Normal 24-28 [facility] Comment on above: Order Comment: Speci men Type: VENOUS BLOOD SPECIMENOrdering Facility: [facility] Address: [address] [place] [address] Performed By: #### 2 4344-4 ####[facility] LABORATORYCLIA [id number] [address] [place] Hematocrit (Bld) [Volume fraction] 27.1 % Low 39.0-51.0 [facility] Comment on above: Order Comment: Speci men Type: VENOUS BLOOD SPECIMENOrdering Facility: [facility] Address: [address] [place] [address] Performed By: #### 2 4344-4 ####[facility] LABORATORYCLIA [id number] [place] [address] [place] Hemoglobin (Bld) [Mass/Vol] 8.7 g/dL Low 13.0-17.0 [facility] Comment on above: Order Comment: Speci men Type: VENOUS BLOOD SPECIMENOrdering Facility: [facility] Address: [address] [place] [address] Performed By: #### 2 4344-4 ####[facility] LABORATORYCLIA [id number] [address] [place] Lactate [Moles/Vol] 1.7 mmol/L Normal 0.5-2.2 [facility] Comment on above: Order Comment: Speci men Type: VENOUS BLOOD SPECIMENOrdering Facility: [facility] Address: [address] [place] [address] Performed By: #### 2 4344-4 ####[facility] LABORATORYCLIA [id number] [address] [place] Methemoglobin (Bld) [Mass fraction] 0.9 % Normal 0.0-1.5 [facility] Comment on above: Order Comment: Speci men Type: VENOUS BLOOD SPECIMENOrdering Facility: [facility] Address: [address] [place] [address] Performed By: #### 2 4344-4 ####[facility] LABORATORYCLIA [id number] [address] OF [facility] O2 THERAPY RA=Room Air Normal [facility] Comment on above: Order Comment: Speci men Type: VENOUS BLOOD SPECIMENOrdering Facility: [facility] Address: [address] [place] [address] Performed By: #### 2 4344-4 ####[facility] LABORATORYCLIA [id number] [address] [place] Oxygen (BldV) [Partial pressure] 79 mm[Hg] High 35-45 [facility] Comment on above: Order Comment: Speci men Type: VENOUS BLOOD SPECIMENOrdering Facility: [facility] Address: [address] [place] [address] Performed By: #### 2 4344-4 ####[facility] LABORATORYCLIA [id number] [address] [place] Oxygen saturation in Venous blood 94 % High 60-85 [facility] Comment on above: Order Comment: Speci men Type: VENOUS BLOOD SPECIMENOrdering Facility: [facility] Address: [address] [place] [address] Performed By: #### 2 4344-4 ####[facility] LABORATORYCLIA [id number] [address] [place] Oxyhemoglobin (BldV) [Mass fraction] 89 % High 60-85 [facility] Comment on above: Order Comment: Speci men Type: VENOUS BLOOD SPECIMENOrdering Facility: [facility] Address: [address] [place] [address] Performed By: #### 2 4344-4 ####[facility] LABORATORYCLIA [id number] [place] [address] [place] pH (BldV) 7.34 [pH] Normal 7.32-7.42 [facility] Comment on above: Order Comment: Speci men Type: VENOUS BLOOD SPECIMENOrdering Facility: [facility] Address: [address] [place] [address] Performed By: #### 2 4344-4 ####[facility] LABORATORYCLIA [id number] [address] [place] Potassium [Moles/Vol] 4.0 mmol/L Normal 3.5-5.0 [facility] Comment on above: Order Comment: Speci men Type: VENOUS BLOOD SPECIMENOrdering Facility: [facility] Address: [address] [place] [address] Performed By: #### 2 4344-4 ####[facility] LABORATORYCLIA [id number] [address] [place] Sodium [Moles/Vol] 132 mmol/L Low 136-144 [facility] Comment on above: Order Comment: Speci men Type: VENOUS BLOOD SPECIMENOrdering Facility: [facility] Address: [address] [place] [address] Performed By: #### 2 4344-4 ####[facility] LABORATORYCLIA [id number] [address] [place] Hgb Bld-mCncon 12-13-2024 Hemoglobin (Bld) [Mass/Vol] 7.1 g/dL Low 13.0-17.0 [facility] Comment on above: Order Comment: Speci men Type: BLOOD SPECIMENOrdering Facility: [facility] Address: [address] [place] [address] Performed By: #### 7 18-7 ####[facility] LABORATORYCLIA [id number] [place] [address] [place] Magnesium SerPl-mCncon 12-13 Magnesium [Mass/Vol] 1.8 mg/dL Normal 1.7-2.3 [facility] Comment on above: Order Comment: Speci men Type: BLOOD SPECIMENOrdering Facility: [facility] Address: [address] [place] [address] Performed By: #### 1 9123-9, 81405-6, 1987-10, ####[facility] COUNTYCLIA [id number] [address] [place] Procalcitonin SerPl-mCncon 0 12-13-2024 Procalcitonin [Mass/Vol] 2.51 ng/mL High <0.09 [facility] Comment on above: Order Comment: Speci men Type: BLOOD SPECIMENOrdering Facility: [facility] Address: [address] [place] [address] Result Comment: For a guided interpretation of test results, please visit the Change in Procalcitonin Calculator, [email or web address]. Performed By: #### 1 9123-9, 05714-8, 1987-10, ####[facility] LABORATORYCLIA [id number] [address] [place] Renal function 2000 panelon 12-13-2024 Albumin [Mass/Vol] 3.0 g/dL Low 3.9-4.9 [facility] Comment on above: Order Comment: Speci men Type: BLOOD SPECIMENOrdering Facility: [facility] Address: [address] [place] [address] Performed By: #### 1 9123-9, 05685-6, 1987-10, ####[facility] LABORATORYCLIA [id number] [place] [address] [place] Anion gap [Moles/Vol] 11 mmol/L Normal 8-15 [facility] Comment on above: Order Comment: Speci men Type: BLOOD SPECIMENOrdering Facility: [facility] Address: [address] [place] [address] Performed By: #### 1 9123-9, 42402-3, 1987-10, ####[facility] LABORATORYCLIA [id number] [place] [address] [place] Calcium [Mass/Vol] 8.5 mg/dL Normal 8.5-10.2 [facility] Comment on above: Order Comment: Speci men Type: BLOOD SPECIMENOrdering Facility: [facility] Address: [address] [place] [address] Performed By: #### 1 9123-9, , 1987-10, ####[facility] LABORATORYCLIA [id number] [place] [address] [place] Chloride [Moles/Vol] 94 mmol/L Low 98-107 [facility] Comment on above: Order Comment: Speci men Type: BLOOD SPECIMENOrdering Facility: [facility] Address: [address] [place] [address] Performed By: #### 1 9123-9, , 1987-10, ####[facility] LABORATORYCLIA [id number] [place] [id number] [place] CO2 [Moles/Vol] 26 mmol/L Normal 22-30 [facility] Comment on above: Order Comment: Speci men Type: BLOOD SPECIMENOrdering Facility: [facility] Address: [address] [place] [address] Performed By: #### 1 9123-9, , 1987-10, ####[facility] LABORATORYCLIA [id number] [place] [address] [place] Creatinine [Mass/Vol] 1.43 mg/dL High 0.73-1.22 [facility] Comment on above: Order Comment: Franchesca estrada Type: BLOOD SPECIMENOrdering Facility: [facility] Address: [address] [place] [address] Performed By: #### 1 9123-9, 99545-8, 1987-10, ####[facility] LABORATORYCLIA [id number] [place] [id number] [place] Creatinine and Glomerular filtration rate.predicted panel (S/P/Bld) 53 mL/min/1.73m??? Low >=60 [facility] Comment on above: Order Comment: Franchesca sean Type: BLOOD SPECIMENOrdering Facility: [facility] Address: [address] [place] [address] Result Comment: Marcela mated Glomerular Filtration Rate [...] actual GFR. Performed By: #### 1 9123-9, 54756-9, 1987-10, ####[facility] [id number] [place] [id number] [place] Glucose [Mass/Vol] 92 mg/dL Normal 74-99 [facility] Comment on above: Order Comment: Franchesca estrada Type: BLOOD SPECIMENOrdering Facility: [facility] Address: [address] [place] [address] Result Comment: The [place] [employer] (ADA) provides guidance for cutoff [...] Standards of Medical Care in Diabetes 2016, [place] [employer]. Diabetes Care. 2016.39(Suppl 1). Performed By: #### 1 9123-9, 52778-0, 1987-10, ####[facility] LABORATORYCLIA [id number] [place] [address] [place] Phosphate [Mass/Vol] 3.4 mg/dL Normal 2.7-4.8 [facility] Comment on above: Order Comment: Speci men Type: BLOOD SPECIMENOrdering Facility: [facility] Address: [address] [place] [address] Performed By: #### 1 9123-9, 97478-0, 1987-10, ####[facility] LABORATORYCLIA [id number] [place] [id number] [place] Potassium [Moles/Vol] 4.3 mmol/L Normal 3.7-5.1 [facility] Comment on above: Order Comment: Speci men Type: BLOOD SPECIMENOrdering Facility: [facility] Address: [address] [place] [address] Performed By: #### 1 9123-9, 59038-4, 1987-10, ####[facility] COUNTYCLIA [id number] [place] [address] [place] Sodium [Moles/Vol] 131 mmol/L Low 136-144 [facility] Comment on above: Order Comment: Speci men Type: BLOOD SPECIMENOrdering Facility: [facility] Address: [address] [place] [address] Performed By: #### 1 9123-9, 21393-5, 1987-10, ####[facility] LABORATORYCLIA [id number] [place] [address] [place] Urea nitrogen [Mass/Vol] 29 mg/dL High 9-24 [facility] Comment on above: Order Comment: Speci men Type: BLOOD SPECIMENOrdering Facility: [facility] Address: [address] [place] [address] Performed By: #### 1 9123-9, 74722-7, 1988-5, 75069-2 ####[facility] LABORATORYCLIA [id number] [address] OF [facility] STAPHYLOCOCCUS AUREUS AND MR SA SCREEN, PCR, NASALon 12-13-2024 S. aureus and MRSA panel MAKAYLA+probe (Nose) Not detected Normal Not Detected [facility] Comment on above: Order Comment: Speci men Type: SWABOrdering Facility: [facility] Address: [address] [place] [address] Performed By: #### S APCR ####[facility] LABORATORYCLIA [id number] [address] OF [facility] TYPE + SCREENon 12-13-2024 ABO B Normal [facility] Comment on above: Order Comment: Speci men Type: BLOOD SPECIMENOrdering Facility: [facility] Address: [address] [place] [address] Performed By: #### T SCR ####[facility] BLOOD BANKCLIA [id number] [address] [place] Rh Nom (Bld) Positive Normal [facility] Comment on above: Order Comment: Speci men Type: BLOOD SPECIMENOrdering Facility: [facility] Address: [address] [place] [address] Performed By: #### T SCR ####[facility] BLOOD BANKCLIA [id number] [address] OF [facility] TYPE AND SCREEN EXPIRATION 12/16/2024 23:59 Normal [facility] Comment on above: Order Comment: Speci men Type: BLOOD SPECIMENOrdering Facility: [facility] Address: [address] [place] [address] Performed By: #### T SCR ####[facility] BLOOD BANKCLIA [id number] [address] [place] XR CHEST 1V FRONTALon 2024 XR CHEST 1V FRONTAL Normal [facility] Bacteria Spec Resp Culton Bacteria identified Respiratory culture Nom (Unsp spec) CULTURE, RESPIRATORY: Moderate Normal respiratory meghna present GRAM STAIN: Many Mixed oral meghna Moderate Polymorphonuclear leukocytes Rare Epithelial cells Abnormal [facility] Comment on above: Performed By: #### 3 2355-0 ####[facility] LABORATORYCLIA [id number] [address] CBC W Ordered Manual Differe ntial panel (Bld)on 12-12-2024 ANISOCYTOSIS Present Normal [facility] Comment on above: Order Comment: Speci men Type: BLOOD SPECIMENOrdering Facility: [facility] Address: [address] [place] [address] Performed By: #### S TFREV, 51448-5 ####[facility] LABORATORYCLIA [id number] [address] Basophils (Bld) [#/Vol] 0.00 10*3/uL Normal <0.11 [facility] Comment on above: Order Comment: Speci men Type: BLOOD SPECIMENOrdering Facility: [facility] Address: [address] [place] [address] Performed By: #### S TFREV, 18503-1 ####[facility] LABORATORYCLIA [id number] [address] Basophils/100 WBC (Bld) 0.0 % Normal A [facility] Comment on above: Order Comment: Speci men Type: BLOOD SPECIMENOrdering Facility: [facility] Address: [address] [place] [address] Performed By: #### S TFREV, 52752-7 ####[facility]ATORYCLIA [id number] [address] Differential cell count method Nom (Bld) Manual Normal [facility] Comment on above: Order Comment: Speci men Type: BLOOD SPECIMENOrdering Facility: [facility] Address: [address] [place] [address] Performed By: #### S TFREV, 70871-8 ####[facility]ORATORYCLIA [id number] [place] [address] [place] Eosinophils (Bld) [#/Vol] 0.00 10*3/uL Normal <0.46 [facility] Comment on above: Order Comment: Speci men Type: BLOOD SPECIMENOrdering Facility: [facility] Address: [address] [place] [address] Performed By: #### S TFREV, 77639-2 ####[facility] LABORATORYCLIA [id number] [address] [place] Eosinophils/100 WBC (Bld) 0.0 % Normal [facility] Comment on above: Order Comment: Speci men Type: BLOOD SPECIMENOrdering Facility: [facility] Address: [address] [place] [address] Performed By: #### S TFRVALENCIA, 59914-7 ####[facility] LABORATORYCLIA [id number] [address] [place] Erythrocyte distribution width (RBC) [Ratio] 20.6 % High 11.5-15.0 [facility] Comment on above: Order Comment: Speci men Type: BLOOD SPECIMENOrdering Facility: [facility] Address: [address] [place] [address] Performed By: #### S TFRVALENCIA, 87050-8 ####[facility] LABORATORYCLIA [id number] [address] [place] Hematocrit (Bld) [Volume fraction] 21.1 % Low 39.0-51.0 [facility] Comment on above: Order Comment: Speci men Type: BLOOD SPECIMENOrdering Facility: [facility] Address: [address] [place] [address] Performed By: #### S TFREV, 21476-3 ####[facility]ORATORYCLIA [id number] [place] [address] [place] Hemoglobin (Bld) [Mass/Vol] 6.6 g/dL Low 13.0-17.0 [facility] Comment on above: Order Comment: Speci men Type: BLOOD SPECIMENOrdering Facility: [facility] Address: [address] [place] [address] Performed By: #### S TFREV, 97685-6 ####[facility] LABORATORYCLIA [id number] [address] [place] Lymphocytes (Bld) [#/Vol] 0.48 10*3/uL Low 1.00-4.00 [facility] Comment on above: Order Comment: Speci men Type: BLOOD SPECIMENOrdering Facility: [facility] Address: [address] [place] [address] Performed By: #### S TFREV, 98577-1 ####[facility] LABORATORYCLIA [id number] [address] Lymphocytes/100 WBC (Bld) 3.0 % Normal [facility] Comment on above: Order Comment: Speci men Type: BLOOD SPECIMENOrdering Facility: [facility] Address: [address] [place] [address] Performed By: #### S TFRVALENCIA, 52626-3 ####[facility] LABORATORYCLIA [id number] [address] [place] [facility] MCH (RBC) [Entitic mass] 30.3 pg Normal 26.0-34.0 [facility] Comment on above: Order Comment: Speci men Type: BLOOD SPECIMENOrdering Facility: [facility] Address: [address] [place] [address] Performed By: #### S TFRVALENCIA, 11190-7 ####[facility] LABORATORYCLIA [id number] [address] [place] MCHC (RBC) [Mass/Vol] 31.3 g/dL Normal 30.5-36.0 [facility] Comment on above: Order Comment: Speci men Type: BLOOD SPECIMENOrdering Facility: [facility] Address: [address] [place] [address] Performed By: #### S TFREV, 47864-7 ####[facility] LABORATORYCLIA [id number] [address] [place] MCV (RBC) [Entitic vol] 96.8 fL Normal 80.0-100.0 A [facility] Comment on above: Order Comment: Speci men Type: BLOOD SPECIMENOrdering Facility: [facility] Address: [address] [place] [address] Performed By: #### S TFREV, 91092-2 ####[facility]ORATORYCLIA [id number] [address] [place] META% 4.0 % Normal [facility] Comment on above: Order Comment: Speci men Type: BLOOD SPECIMENOrdering Facility: [facility] Address: [address] [place] [address] Performed By: #### S TFREV, 35754-8 ####[facility] [facility]ORATORYCLIA [id number] [address] Monocytes (Bld) [#/Vol] 1.91 10*3/uL High <0.87 [facility] Comment on above: Order Comment: Speci men Type: BLOOD SPECIMENOrdering Facility: [facility] Address: [address] [place] [address] Performed By: #### S TFREV, 75305-5 ####[facility]ORATORYCLIA [id number] [address] Monocytes/100 WBC (Bld) 12.0 % Normal A [facility] Comment on above: Order Comment: Speci men Type: BLOOD SPECIMENOrdering Facility: [facility] Address: [address] [place] [address] Performed By: #### S TFREV, 76981-5 ####[facility] [facility]ORATORYCLIA [id number] [address] [place] MYELO% 4.0 % Normal [facility] Comment on above: Order Comment: Speci men Type: BLOOD SPECIMENOrdering Facility: [facility] Address: [address] [place] [address] Performed By: #### S TFREV, 73141-6 ####[facility] [facility]ORATORYCLIA [id number] [place] [address] [place] Neutrophils (Bld) [#/Vol] 12.27 10*3/uL High 1.45-7.50 [facility] Comment on above: Order Comment: Speci men Type: BLOOD SPECIMENOrdering Facility: [facility] Address: [address] [place] [address] Performed By: #### S TFREV, 88070-0 ####[facility]ORATORYCLIA [id number] [place] [address] [place] Neutrophils/100 WBC (Bld) 77.0 % Normal [facility] Comment on above: Order Comment: Speci men Type: BLOOD SPECIMENOrdering Facility: [facility] Address: [address] [place] [address] Performed By: #### S TFREV, 06762-4 ####[facility] LABORATORYCLIA [id number] [address] [place] Nucleated RBC (Bld) [#/Vol] 10*3/uL Normal <0.01 [facility] Comment on above: Order Comment: Speci men Type: BLOOD SPECIMENOrdering Facility: [facility] Address: [address] [place] [address] Performed By: #### S TFREV, 24167-1 ####[facility]ATORYCLIA [id number] [address] [place] Nucleated RBC/100 WBC (Bld) [Ratio] 0.0 /100 WBC Normal [facility] Comment on above: Order Comment: Speci men Type: BLOOD SPECIMENOrdering Facility: [facility] Address: [address] [place] [address] Performed By: #### S TFREV, 04062-6 ####[facility]ATORYCLIA [id number] [address] [place] Platelet mean volume (Bld) [Entitic vol] 9.1 fL Normal 9.0-12.7 [facility] Comment on above: Order Comment: Speci men Type: BLOOD SPECIMENOrdering Facility: [facility] Address: [address] [place], [place] [id number] Performed By: #### S TFREV, [id number] ####[facility] LABORATORYCLIA [id number] [address] [place] Platelets (Bld) [#/Vol] 445 10*3/uL High 150-400 [facility] Comment on above: Order Comment: Speci men Type: BLOOD SPECIMENOrdering Facility: [facility] Address: [address] [place] [address] Performed By: #### S TFREV, 83403-1 ####[facility]ATORYCLIA [id number] [address] [place] Platelets Estimate (Bld) [#/Vol] Adequate Normal [facility] Comment on above: Order Comment: Speci men Type: BLOOD SPECIMENOrdering Facility: [facility] Address: [address] [place] [address] Performed By: #### S TFREV, 47714-9 ####[facility]ORATORYCLIA [id number] [address] [place] Polychromasia LM Ql (Bld) Slight Normal [facility] Comment on above: Order Comment: Speci men Type: BLOOD SPECIMENOrdering Facility: [facility] Address: [address] [place] [address] Performed By: #### S TFREV, 89069-5 ####[facility]ORATORYCLIA [id number] [place] [address] [place] RBC (Bld) [#/Vol] 2.18 10*6/uL Low 4.20-6.00 [facility] Comment on above: Order Comment: Speci men Type: BLOOD SPECIMENOrdering Facility: [facility] Address: [address] [place] [address] Performed By: #### S TFREV, 25071-3 ####[facility]ORATORYCLIA [id number] [address] [place] RED CELL MORPH Reviewed: see result s of individual morphologies Normal [facility] Comment on above: Order Comment: Speci men Type: BLOOD SPECIMENOrdering Facility: [facility] Address: [address] [place] [address] Performed By: #### S MERCY, 52299-5 ####[facility] LABORATORYCLIA [id number] [address] OF [facility] WBC (Bld) [#/Vol] 15.94 10*3/uL High 3.70-11.00 [facility] Comment on above: Order Comment: Speci men Type: BLOOD SPECIMENOrdering Facility: [facility] Address: [address] [place] [address] Performed By: #### S MERCY, 06267-1 ####[facility] LABORATORYCLIA [id number] [address] CBC panel Auto (Bld)on 12-12 Erythrocyte distribution width (RBC) [Ratio] 20.1 % High 11.5-15.0 [facility] Comment on above: Order Comment: Speci men Type: BLOOD SPECIMENOrdering Facility: [facility] Address: [address] [place] [address] Performed By: #### 5 8410-2 ####[facility] LABORATORYCLIA [id number] [address] Hematocrit (Bld) [Volume fraction] 23.1 % Low 39.0-51.0 [facility] Comment on above: Order Comment: Speci men Type: BLOOD SPECIMENOrdering Facility: [facility] Address: [address] [place] [address] Performed By: #### 5 8410-2 ####[facility] LABORATORYCLIA [id number] [address] Hemoglobin (Bld) [Mass/Vol] 7.3 g/dL Low 13.0-17.0 [facility] Comment on above: Order Comment: Speci men Type: BLOOD SPECIMENOrdering Facility: [facility] Address: [address] [place] [address] Performed By: #### 5 8410-2 ####[facility] LABORATORYCLIA [id number] [address] MCH (RBC) [Entitic mass] 30.3 pg Normal 26.0-34.0 [facility] Comment on above: Order Comment: Speci men Type: BLOOD SPECIMENOrdering Facility: [facility] Address: [address] [place] [address] Performed By: #### 5 8410-2 ####[facility] LABORATORYCLIA [id number] [address] MCHC (RBC) [Mass/Vol] 31.6 g/dL Normal 30.5-36.0 [facility] Comment on above: Order Comment: Speci men Type: BLOOD SPECIMENOrdering Facility: [facility] Address: [address] [place] [address] Performed By: #### 5 8410-2 ####[facility] LABORATORYCLIA [id number] [address] MCV (RBC) [Entitic vol] 95.9 fL Normal 80.0-100.0 [facility] Comment on above: Order Comment: Speci men Type: BLOOD SPECIMENOrdering Facility: [facility] Address: [address] [place] [address] Performed By: #### 5 8410-2 ####[facility] LABORATORYCLIA [id number] [address] Nucleated RBC (Bld) [#/Vol] 10*3/uL Normal <0.01 [facility] Comment on above: Order Comment: Speci men Type: BLOOD SPECIMENOrdering Facility: [facility] Address: [address] [place] [address] Performed By: #### 5 8410-2 ####[facility] LABORATORYCLIA [id number] [address] Platelet mean volume (Bld) [Entitic vol] 9.3 fL Normal 9.0-12.7 [facility] Comment on above: Order Comment: Speci men Type: BLOOD SPECIMENOrdering Facility: [facility] Address: [address] [place] [address] Performed By: #### 5 8410-2 ####[facility] LABORATORYCLIA [id number] [address] Platelets (Bld) [#/Vol] 513 10*3/uL High 150-400 [facility] Comment on above: Order Comment: Speci men Type: BLOOD SPECIMENOrdering Facility: [facility] Address: [address] [place] [address] Performed By: #### 5 8410-2 ####[facility] LABORATORYCLIA [id number] [address] RBC (Bld) [#/Vol] 2.41 10*6/uL Low 4.20-6.00 [facility] Comment on above: Order Comment: Speci men Type: BLOOD SPECIMENOrdering Facility: [facility] Address: [address] [place] [address] Performed By: #### 5 8410-2 ####[facility] LABORATORYCLIA [id number] [address] WBC (Bld) [#/Vol] 13.85 10*3/uL High 3.70-11.00 [facility] Comment on above: Order Comment: Speci men Type: BLOOD SPECIMENOrdering Facility: [facility] Address: [address] [place] [address] Performed By: #### 5 8410-2 ####[facility] LABORATORYCLIA [id number] [place] [id number] [facility] [place] CYSTATIN Con 12-12-2024 Cystatin C [Mass/Vol] 1.99 mg/L High 0.61-0.95 [facility] Comment on above: Order Comment: Speci men Type: BLOOD SPECIMENOrdering Facility: [facility] Address: [address] [place] [address] Performed By: #### C YS ####[facility] LABCLIA [id number] [place] [address] [place] CYSTATIN C EGFR 30 mL/min/1.73m??? Low >=60 A [facility] Comment on above: Order Comment: Franchesca estrada Type: BLOOD SPECIMENOrdering Facility: [facility] Address: [address] [place] [address] Result Comment: Marcela mated Glomerular Filtration Rate (eGFR) is calculated using the 2012 CKD-EPI cystatin C equation. This equation utilizes serum cystatin C, sex, and age as parameters. The cystatin C assay has traceable calibration to the ERM-DA471/[facility] reference material. Refer to KDIGO guidelines for clinical interpretation. In patients with unstable renal function, e.g. those with acute kidney injury, the eGFR may not accurately reflect actual GFR. Performed By: #### C YSTC ####[facility] LABCLIA [id number] [place] [address] [place] D dimer FEU PPP-mCncon 12-12 Fibrin D-dimer FEU (PPP) [Mass/Vol] 2030 ng/mL FEU High <500 [facility] Comment on above: Order Comment: Speci men Type: BLOOD SPECIMENOrdering Facility: [facility] Address: [address] [place] [address] Performed By: #### 3 255-7, 03902-7, 02111-0, 41593-8 ####[facility] LABORATORYCLIA [id number] [place] [address] [place] Fibrin D-dimer FEU (PPP) [Ma ss/Vol]on 12-12-2024 D DIMER AGE-RELATED CUTOFF 690 ng/mL FEU Normal [facility] Comment on above: Order Comment: Speci men Type: BLOOD SPECIMENOrdering Facility: [facility] Address: [address] [place] [address] Performed By: #### 3 255-7, 99483-7, 47245-3, 71211-3 ####[facility] LABORATORYCLIA [id number] [place] [address] [place] Fibrinogen PPP-mCncon 2024 Fibrinogen Coag (PPP) [Mass/Vol] mg/dL High 200-400 [facility] Comment on above: Order Comment: Speci men Type: BLOOD SPECIMENOrdering Facility: [facility] Address: [address] [place] [address] Performed By: #### 3 255-7, 04626-6, 25610-4, 10512-9 ####[facility] LABORATORYCLIA [id number] [address] OF [facility] Gas and Carbon monoxide pane l (BldV)on 12-12-2024 Base excess Calc (BldV) [Moles/Vol] 0 mmol/L Normal 0-2 [facility] Comment on above: Order Comment: Speci men Type: VENOUS BLOOD SPECIMENOrdering Facility: [facility] Address: [address] [place] [address] Performed By: #### 2 4344-4 ####[facility] LABORATORYCLIA [id number] [address] STATES OF [facility] Body temperature 98.6 [degF] Normal [facility] Comment on above: Order Comment: Speci men Type: VENOUS BLOOD SPECIMENOrdering Facility: [facility] Address: [address] [place] [address] Performed By: #### 2 4344-4 ####[facility] LABORATORYCLIA [id number] [address] [place] Calcium.ionized (BldV) [Mass/Vol] 1.14 mmol/L Normal 1.08-1.30 [facility] Comment on above: Order Comment: Speci men Type: VENOUS BLOOD SPECIMENOrdering Facility: [facility] Address: [address] [place] [address] Performed By: #### 2 4344-4 ####[facility] LABORATORYCLIA [id number] [address] Calcium.ionized adjusted to pH 7.4 (BldA) [Moles/Vol] 1.04 mmol/L Low 1.08-1.30 [facility] Comment on above: Order Comment: Speci men Type: VENOUS BLOOD SPECIMENOrdering Facility: [facility] Address: [address] [place] [address] Performed By: #### 2 4344-4 ####[facility] LABORATORYCLIA [id number] [address] OF [place] Carboxyhemoglobin (BldV) [Mass fraction] 3.6 % High 0.0-2.0 [facility] Comment on above: Order Comment: Speci men Type: VENOUS BLOOD SPECIMENOrdering Facility: [facility] Address: [address] [place] [address] Result Comment: Carb oxyhemoglobin Reference Range for Smokers: 2.0-8.0% Performed By: #### 2 4344-4 ####[facility] LABORATORYCLIA [id number] [address] [place] Chloride [Moles/Vol] 95 mmol/L Low 97-105 [facility] Comment on above: Order Comment: Speci men Type: VENOUS BLOOD SPECIMENOrdering Facility: [facility] Address: [address] [place] [address] Performed By: #### 2 4344-4 ####[facility] LABORATORYCLIA [id number] [address] [place] CO2 (BldV) [Partial pressure] 68 mm[Hg] High 42-55 [facility] Comment on above: Order Comment: Speci men Type: VENOUS BLOOD SPECIMENOrdering Facility: [facility] Address: [address] [place] [address] Performed By: #### 2 4344-4 ####[facility] LABORATORYCLIA [id number] [address] [place] Glucose [Mass/Vol] 94 mg/dL Normal 60-105 [facility] Comment on above: Order Comment: Speci men Type: VENOUS BLOOD SPECIMENOrdering Facility: [facility] Address: [address] [place] [address] Performed By: #### 2 4344-4 ####[facility] LABORATORYCLIA [id number] [address] [place] HCO3 (Bld) [Moles/Vol] 28 mmol/L Normal 24-28 [facility] Comment on above: Order Comment: Speci men Type: VENOUS BLOOD SPECIMENOrdering Facility: [facility] Address: [address] [place] [address] Performed By: #### 2 4344-4 ####[facility] LABORATORYCLIA [id number] [address] [place] Hematocrit (Bld) [Volume fraction] 21.3 % Low 39.0-51.0 [facility] Comment on above: Order Comment: Speci men Type: VENOUS BLOOD SPECIMENOrdering Facility: [facility] Address: [address] [place] [address] Performed By: #### 2 4344-4 ####[facility] LABORATORYCLIA [id number] [address] [place] Hemoglobin (Bld) [Mass/Vol] 6.8 g/dL Low 13.0-17.0 [facility] Comment on above: Order Comment: Speci men Type: VENOUS BLOOD SPECIMENOrdering Facility: [facility] Address: [address] [place] [address] Performed By: #### 2 4344-4 ####[facility] LABORATORYCLIA [id number] [address] [place] Lactate [Moles/Vol] 3.3 mmol/L High 0.5-2.2 [facility] Comment on above: Order Comment: Speci men Type: VENOUS BLOOD SPECIMENOrdering Facility: [facility] Address: [address] [place] [address] Performed By: #### 2 4344-4 ####[facility] LABORATORYCLIA [id number] [address] [place] Methemoglobin (Bld) [Mass fraction] 0.9 % Normal 0.0-1.5 [facility] Comment on above: Order Comment: Speci men Type: VENOUS BLOOD SPECIMENOrdering Facility: [facility] Address: [address] [place] [address] Performed By: #### 2 4344-4 ####[facility] LABORATORYCLIA [id number] [address] O2 THERAPY RA=Room Air Normal [facility] Comment on above: Order Comment: Speci men Type: VENOUS BLOOD SPECIMENOrdering Facility: [facility] Address: [address] [place] [address] Performed By: #### 2 4344-4 ####[facility] LABORATORYCLIA [id number] [address] [place] Oxygen (BldV) [Partial pressure] 57 mm[Hg] High 35-45 [facility] Comment on above: Order Comment: Speci men Type: VENOUS BLOOD SPECIMENOrdering Facility: [facility] Address: [address] [place] [address] Performed By: #### 2 4344-4 ####[facility] LABORATORYCLIA [id number] [address] [place] Oxygen saturation in Venous blood 78 % Normal 60-85 [facility] Comment on above: Order Comment: Speci men Type: VENOUS BLOOD SPECIMENOrdering Facility: [facility] Address: [address] [place] [address] Performed By: #### 2 4344-4 ####[facility] LABORATORYCLIA [id number] [place] [id number] [place] Oxyhemoglobin (BldV) [Mass fraction] 75 % Normal 60-85 [facility] Comment on above: Order Comment: Speci men Type: VENOUS BLOOD SPECIMENOrdering Facility: [facility] Address: [address] [place] [address] Performed By: #### 2 4344-4 ####[facility] LABORATORYCLIA [id number] [place] [address] [place] pH (BldV) 7.23 [pH] Low 7.32-7.42 [facility] Comment on above: Order Comment: Speci men Type: VENOUS BLOOD SPECIMENOrdering Facility: [facility] Address: [address] [place], [place] [address] Performed By: #### 2 4344-4 ####[facility] LABORATORYCLIA [id number] [place] [address] [place] Potassium [Moles/Vol] 3.8 mmol/L Normal 3.5-5.0 [facility] Comment on above: Order Comment: Speci men Type: VENOUS BLOOD SPECIMENOrdering Facility: [facility] Address: [address] [place] [address] Performed By: #### 2 4344-4 ####[facility] LABORATORYCLIA [id number] [address] [place] Sodium [Moles/Vol] 132 mmol/L Low 136-144 [facility] Comment on above: Order Comment: Speci men Type: VENOUS BLOOD SPECIMENOrdering Facility: [facility] Address: [address] [place] [address] Performed By: #### 2 4344-4 ####[facility] LABORATORYCLIA [id number] [address] [place] Haptoglob SerPl-mCncon 12-12 Haptoglobin [Mass/Vol] 142 mg/dL Normal 31-238 [facility] Comment on above: Order Comment: Speci men Type: BLOOD SPECIMENOrdering Facility: [facility] Address: [address] [place] [address] Performed By: #### 2 4362-6, 4542-7, 59436-1 ####[facility] LABORATORYCLIA [id number] [address] [place] Hepatic function 2000 panelo n 12-12-2024 ALP [Catalytic activity/Vol] 128 U/L High 38-113 [facility] Comment on above: Order Comment: Speci men Type: BLOOD SPECIMENOrdering Facility: [facility] Address: [address] [place] [address] Performed By: #### 2 4362-6, 4542-7, 15888-5 ####[facility] LABORATORYCLIA [id number] [address] [place] ALT With P-5'-P [Catalytic activity/Vol] 31 U/L Normal 10-54 [facility] Comment on above: Order Comment: Speci men Type: BLOOD SPECIMENOrdering Facility: [facility] Address: [address] [place] [address] Performed By: #### 2 4362-6, 4542-7, 92792-1 ####[facility] LABORATORYCLIA [id number] [address] OF [facility] AST With P-5'-P [Catalytic activity/Vol] 42 U/L High 14-40 [facility] Comment on above: Order Comment: Speci men Type: BLOOD SPECIMENOrdering Facility: [facility] Address: [address] [place] [address] Performed By: #### 2 4362-6, 4542-7, 41259-3 ####[facility] LABORATORYCLIA [id number] [address] OF [facility] Bilirubin [Mass/Vol] 1.1 mg/dL Normal 0.2-1.3 [facility] Comment on above: Order Comment: Speci men Type: BLOOD SPECIMENOrdering Facility: [facility] Address: [address] [place] [address] Performed By: #### 2 4362-6, 4542-7, 66815-9 ####[facility] LABORATORYCLIA [id number] [address] Bilirubin.conjugated [Mass/Vol] 0.6 mg/dL High <0.3 [facility] Comment on above: Order Comment: Speci men Type: BLOOD SPECIMENOrdering Facility: [facility] Address: [address] [place] [address] Performed By: #### 2 4362-6, 4542-7, 94636-0 ####[facility] LABORATORYCLIA [id number] [address] [place] Protein [Mass/Vol] 7.4 g/dL Normal 6.3-8.0 [facility] Comment on above: Order Comment: Speci men Type: BLOOD SPECIMENOrdering Facility: [facility] Address: [address] [place] [address] Performed By: #### 2 4362-6, 4542-7, 03288-4 ####[facility] LABORATORYCLIA [id number] [address] Hgb Bld-mCncon 12-12-2024 Hemoglobin (Bld) [Mass/Vol] 6.9 g/dL Low 13.0-17.0 [facility] Comment on above: Order Comment: Speci men Type: BLOOD SPECIMENOrdering Facility: [facility] Address: [address] [place] [address] Performed By: #### 7 18-7 ####[facility] LABORATORYCLIA [id number] [address] LDH SerPl-cCncon 12-12-2024 LDH [Catalytic activity/Vol] 384 U/L High 135-225 [facility] Comment on above: Order Comment: Speci men Type: BLOOD SPECIMENOrdering Facility: [facility] Address: [address] [place] [address] Performed By: #### 2 532-0 ####[facility] LABORATORYCLIA [id number] [address] PATHOLOGIST INTERPRETATION C BC/DIFFon 12-12-2024 Yard Brakeman review Jani (Unsp spec) [Interp] Reviewed by Kasi Figueroa MD [facility] Comment on above: Order Comment: Speci men Type: BLOOD SPECIMENOrdering Facility: [facility] Address: [address] [place] [address] Performed By: #### S TFREV, 63127-3 ####[facility] LABORATORYCLIA [id number] [address] OF [place] STAFF REVIEW, CBCDIF Normal [facility] Comment on above: Order Comment: Speci men Type: BLOOD SPECIMENOrdering Facility: [facility] Address: [address] [place] [address] Performed By: #### S TFREV, 99763-3 ####[facility] LABORATORYCLIA [id number] [address] STATES [facility] PT panel Coag (PPP)on 2024 INR Coag (PPP) [Relative time] 1.0 {INR} Normal 0.9-1.3 [facility] Comment on above: Order Comment: Speci men Type: BLOOD SPECIMENOrdering Facility: [facility] Address: [address] [place] [address] Result Comment: Lauren min K Antagonist (VKA) Therapeutic Range: INR 2 to 3 (Target INR of 2.5)Note: For patients treated with VKA drugs, such as warfarin, the [place] [employer] 2012 Guideline recommends [...] of 3).Jasper GH, et al. Chest 2012, 141:7S-47SNishimisiah RA, et al. [facility] 2017, 70: 252-289 Performed By: #### 3 255-7, 64194-1, 64365-3, 50925-2 ####[facility] LABORATORYCLIA [id number] [place] [id number] [place] PT Coag (PPP) [Time] 11.4 s Normal 9.7-13.0 [facility] Comment on above: Order Comment: Speci men Type: BLOOD SPECIMENOrdering Facility: [facility] Address: [address] [place] [address] Performed By: #### 3 255-7, 60980-6, 65050-7, 80450-7 ####[facility] LABORATORYCLIA [id number] [place] [id number] [place] Renal Func 2000 Pnl SerPlon 12-12-2024 Albumin [Mass/Vol] 3.2 g/dL Low 3.9-4.9 [facility] Comment on above: Order Comment: Speci men Type: BLOOD SPECIMENOrdering Facility: [facility] Address: [address] [place] [address] Performed By: #### 2 4362-6, 4542-7, 49602-3 ####[facility] LABORATORYCLIA [id number] [place] [id number] [facility] Renal function 2000 panelon 12-12-2024 Anion gap [Moles/Vol] 14 mmol/L Normal 8-15 [facility] Comment on above: Order Comment: Speci men Type: BLOOD SPECIMENOrdering Facility: [facility] Address: [address] [place] [address] Performed By: #### 2 4362-6, 4542-7, 65561-3 ####[facility] LABORATORYCLIA [id number] [address] [place] Calcium [Mass/Vol] 8.9 mg/dL Normal 8.5-10.2 [facility] Comment on above: Order Comment: Speci men Type: BLOOD SPECIMENOrdering Facility: [facility] Address: [address] [place] [address] Performed By: #### 2 4362-6, 4542-7, 33813-5 ####[facility] LABORATORYCLIA [id number] [place] [address] [place] Chloride [Moles/Vol] 91 mmol/L Low 98-107 [facility] Comment on above: Order Comment: Speci men Type: BLOOD SPECIMENOrdering Facility: [facility] Address: [address] [place] [address] Performed By: #### 2 4362-6, 4542-7, 67666-0 ####[facility] LABORATORYCLIA [id number] [place] [id number] [place] CO2 [Moles/Vol] 27 mmol/L Normal 22-30 [facility] Comment on above: Order Comment: Speci men Type: BLOOD SPECIMENOrdering Facility: [facility] Address: [address] [place] [address] Performed By: #### 2 4362-6, 4542-7, 62487-2 ####[facility] LABORATORYCLIA [id number] [place] [id number] [place] Creatinine [Mass/Vol] 1.42 mg/dL High 0.73-1.22 [facility] Comment on above: Order Comment: Speci men Type: BLOOD SPECIMENOrdering Facility: [facility] Address: [address] [place] [address] Performed By: #### 2 4362-6, 4542-7, 60757-6 ####[facility] COUNTYCL[facility] [id number] [address] [place] Creatinine and Glomerular filtration rate.predicted panel (S/P/Bld) 53 mL/min/1.73m??? Low >=60 [facility] Comment on above: Order Comment: Speci men Type: BLOOD SPECIMENOrdering Facility: [facility] Address: [address] [place] [address] Result Comment: Marcela mated Glomerular Filtration Rate [...] GFR. Performed By: #### 2 4362-6, 4542-7, 03613-9 ####[facility] LABORATORYCLIA [id number] [place] [address] [place] Glucose [Mass/Vol] 100 mg/dL High 74-99 [facility] Comment on above: Order Comment: Speci men Type: BLOOD SPECIMENOrdering Facility: [facility] Address: [address] [place] [address] Result Comment: The [place] [employer] (ADA) provides guidance for cutoff [...] Standards of Medical Care in Diabetes 2016, [place] [employer]. Diabetes Care. 2016.39(Suppl 1). Performed By: #### 2 4362-6, 4542-7, 67733-4 ####[facility] LABORATORYCLIA [id number] [place] [address] [place] Phosphate [Mass/Vol] 3.7 mg/dL Normal 2.7-4.8 [facility] Comment on above: Order Comment: [facility] Type: BLOOD SPECIMENOrdering Facility: [facility] Address: [address] [place] [address] Performed By: #### 2 4362-6, 4542-7, 99758-1 ####[facility] LABORATORYIA [id number] [place] [address] [place] Potassium [Moles/Vol] 4.0 mmol/L Normal 3.7-5.1 [facility] Comment on above: Order Comment: [facility] Type: BLOOD SPECIMENOrdering Facility: [facility] Address: [address] [place] [address] Performed By: #### 2 4362-6, 4542-7, 31307-2 ####[facility] LABORATORYCLIA [id number] [place] [id number] [place] Sodium [Moles/Vol] 132 mmol/L Low 136-144 [facility] Comment on above: Order Comment: Franchesca men Type: BLOOD SPECIMENOrdering Facility: [facility] Address: [address] [place] [address] Performed By: #### 2 4362-6, 4542-7, 48491-8 ####[facility] LABORATORYCLIA [id number] [place] [address] [place] Urea nitrogen [Mass/Vol] 27 mg/dL High 9-24 [facility] Comment on above: Order Comment: Speci men Type: BLOOD SPECIMENOrdering Facility: [facility] Address: [address] [place] [address] Performed By: #### 2 4362-6, 4542-7, 49805-2 ####[facility] LABORATORYCLIA [id number] [address] [place] aPTT PPPon 12-12-2024 aPTT Coag (PPP) [Time] 33.0 s High 23.0-32.4 [facility] Comment on above: Order Comment: Speci men Type: BLOOD SPECIMENOrdering Facility: [facility] Address: [address] [place] [address] Performed By: #### 3 255-7, 86313-4, 29638-8, 18769-6 ####[facility] COUNTYCLIA [id number] [address] [place] ALLIED HEALTHon 12-11-2024 ALLIED HEALTH Normal [facility] CASE MGT INIT ASSESon 2024 CASE MGT INIT [facility] Normal [facility] CBC panel Auto (Bld)on 12-11 Erythrocyte distribution width (RBC) [Ratio] 19.6 % High 11.5-15.0 [facility] Comment on above: Order Comment: Speci men Type: BLOOD SPECIMENOrdering Facility: [facility] Address: [address] [place] [address] Performed By: #### 5 5454-3 ####[facility] LABCLIA [id number] [address] [place]#### 36431-1 ####[facility] LABORATORYCLIA [id number] [address] [place] Hematocrit (Bld) [Volume fraction] 25.1 % Low 39.0-51.0 [facility] Comment on above: Order Comment: Speci men Type: BLOOD SPECIMENOrdering Facility: [facility] Address: [address] [place] [address] Performed By: #### 5 5454-3 ####[facility] LABCLIA [id number] [address] [place]#### 97990-2 ####[facility] LABORATORYCLIA [id number] [address] Hemoglobin (Bld) [Mass/Vol] 7.9 g/dL Low 13.0-17.0 [facility] Comment on above: Order Comment: Speci men Type: BLOOD SPECIMENOrdering Facility: [facility] Address: [address] [place] [address] Performed By: #### 5 5454-3 ####[facility] LABCLIA [id number] [address] [place]#### 25569-0 ####[facility] LABORATORYCLIA [id number] [address] [place] MCH (RBC) [Entitic mass] 29.8 pg Normal 26.0-34.0 [facility] Comment on above: Order Comment: Speci men Type: BLOOD SPECIMENOrdering Facility: [facility] Address: [address] [place] [address] Performed By: #### 5 5454-3 ####[facility] LABCLIA [id number] [address] [place]#### 36351-3 ####[facility] LABORATORYCLIA [id number] [address] [place] MCHC (RBC) [Mass/Vol] 31.5 g/dL Normal 30.5-36.0 [facility] Comment on above: Order Comment: Speci men Type: BLOOD SPECIMENOrdering Facility: [facility] Address: [address] [place] [address] Performed By: #### 5 5454-3 ####[facility] LABCLIA [id number] [address] [place]#### 60566-0 ####[facility] LABORATORYCLIA [id number] [address] [place] MCV (RBC) [Entitic vol] 94.7 fL Normal 80.0-100.0 [facility] Comment on above: Order Comment: Speci men Type: BLOOD SPECIMENOrdering Facility: [facility] Address: [address] [place] [address] Performed By: #### 5 5454-3 ####[facility] LABCLIA [id number] [address] [place]#### 38028-3 ####[facility] LABORATORYCLIA [id number] [address] STATES [facility] Nucleated RBC (Bld) [#/Vol] 10*3/uL Normal <0.01 [facility] Comment on above: Order Comment: Speci men Type: BLOOD SPECIMENOrdering Facility: [facility] Address: [address] [place] [address] Performed By: #### 5 5454-3 ####[facility] LABCLIA [id number] [address] [place]#### 90207-8 ####[facility] LABORATORYCLIA [id number] [address] Platelet mean volume (Bld) [Entitic vol] 9.1 fL Normal 9.0-12.7 [facility] Comment on above: Order Comment: Speci men Type: BLOOD SPECIMENOrdering Facility: [facility] Address: [address] [place] [address] Performed By: #### 5 5454-3 ####[facility] LABCLIA [id number] [place] [id number] [place]#### 67477-0 ####[facility] LABORATORYCLIA [id number] [address] STATES OF [facility] Platelets (Bld) [#/Vol] 480 10*3/uL High 150-400 [facility] Comment on above: Order Comment: Speci men Type: BLOOD SPECIMENOrdering Facility: [facility] Address: [facility] [place] [address] Performed By: #### 5 5454-3 ####[facility] LABCLIA [id number] [place] [address] [place]#### 64598-0 ####[facility] LABORATORYCLIA [id number] [address] STATES [facility] RBC (Bld) [#/Vol] 2.65 10*6/uL Low 4.20-6.00 [facility] Comment on above: Order Comment: Speci men Type: BLOOD SPECIMENOrdering Facility: [facility] Address: [address] [place] [address] Performed By: #### 5 5454-3 ####[facility] LABCLIA [id number] [address] [place]#### 96670-7 ####[facility] LABORATORYCLIA [id number] [address] [place] WBC (Bld) [#/Vol] 11.06 10*3/uL High 3.70-11.00 [facility] Comment on above: Order Comment: Speci men Type: BLOOD SPECIMENOrdering Facility: [facility] Address: [facility] [place] [address] Performed By: #### 5 5454-3 ####[facility] LABCLIA [id number] [place] [id number] [place]#### 94192-4 ####[facility] LABORATORYCLIA [id number] [place] [address] [place] CONSULTon 12-11-2024 CONSULT Normal [facility] CT ABD/PEL WO IVCONon 2024 CT ABD/PEL WO IVCON Normal [facility] HbA1c (Bld)on 12-11-2024 Average glucose Estimated from glycated hemoglobin (Bld) [Mass/Vol] 103 mg/dL Normal [facility] Comment on above: Order Comment: Speci men Type: BLOOD SPECIMENOrdering Facility: [facility] Address: [address] [place] [address] Result Comment: eAG: (Estimated average glucose) is a calculated value from HgbA1c and is apprenticeship training representative of the average blood glucose level in the last 2-3 month period. Performed By: #### 5 5454-3 ####[facility] LABCLIA [id number] [address]#### 01445-8 ####[facility] LABORATORYCLIA [id number] [address] STATES [facility] HbA1c (Bld) [Mass fraction] 5.2 % Normal 4.3-5.6 [facility] Comment on above: Order Comment: Franchesca estrada Type: BLOOD SPECIMENOrdering Facility: [facility] Address: [address] [place] [address] Result Comment: Amer [place] Diabetes Association guidelines indicate that patients with HgbA1c in the range 5.7-6.4% are at increased risk for development of diabetes, and intervention by lifestyle modification may be beneficial. HgbA1c greater or equal to 6.5% is considered diagnostic of diabetes. Performed By: #### 5 5454-3 ####[facility] LABCLIA [id number] [address] [place]#### 25205-5 ####[facility] LABORATORYCLIA [id number] [address] [place] LIPID PANEL, NONFASTINGon Cholesterol [Mass/Vol] 107 mg/dL Normal <200 [facility] Comment on above: Order Comment: Speci men Type: BLOOD SPECIMENOrdering Facility: [facility] Address: [address] [place] [address] Result Comment: <200 mg/dL, Desirable 200-239 mg/dL, Borderline high>239 mg/dL, High Performed By: #### L IPNF, 33187-0, 63606-5, 33421-9, TSHRF ####[facility] LABORATORYCLIA [id number] [address] STATES OF [facility] HDL CHOLESTEROL, NF 37 mg/dL Low >39 [facility] Comment on above: Order Comment: Speci men Type: BLOOD SPECIMENOrdering Facility: [facility] Address: [address] [place] [address] Result Comment: 40-5 9 mg/dL, Acceptable>59 mg/dL, High: Negative risk factor for coronary heart disease<40 mg/dL, Low: Positive risk factor for coronary heart disease Performed By: #### L IPNF, 19447-5, , 50458-8, TSHRF ####[facility] LABORATORYCLIA [id number] [address] STATES [facility] LDL CHOLESTEROL CALCULATED, NF 48 mg/dL Normal <100 [facility] Comment on above: Order Comment: Speci men Type: BLOOD SPECIMENOrdering Facility: [facility] Address: [address] [place] [address] Result Comment: <100 mg/dL, Optimal 100-129 mg/dL, Near optimal/above optimal 130-159 mg/dL, Borderline high 160-189 mg/dL, High>189 mg/dL, Very highSecondary prevention optimal LDL Cholesterol levels are recommended to be <70 mg/dLLDL cholesterol is calculated using the Newberry-NIH equation. Performed By: #### L IPNF, 39556-1, 95686-1, 68632-6, TSHRF ####[facility] LABORATORYCLIA [id number] [address] [place] LDL/HDL RATIO, NF 1.30 mg/dL Normal <2.54 [facility] Comment on above: Order Comment: Speci men Type: BLOOD SPECIMENOrdering Facility: [facility] Address: [address] [place] [address] Result Comment: Sol hewitt:1. National Cholesterol Education Program ATP III Guideline At-A-Glance Quick Desk Reference: National Heart, Lung, and Blood [place]. National Institutes of Health. 2001: NIH Publication No. 01-3305.2. An International Atherosclerosis Society position paper: global recommendations for the management of dyslipidemia: executive summary, Atherosclerosis. 2014: 232(2):410-413. Performed By: #### L IPNF, 15784-0, 21422-7, 90601-5, TSHRF ####[facility] LABORATORYCLIA [id number] [address] STATES OF [facility] NON HDL CHOL, NF 70 mg/dL Normal <130 [facility] Comment on above: Order Comment: [facility]i [facility] Type: BLOOD SPECIMENOrdering Facility: [facility] Address: [address] [place] [address] Result Comment: <130 mg/dL, Optimal 130-159 mg/dL, Near optimal/above optimal 160-189 mg/dL, Borderline high 190-219 mg/dL, High>219 mg/dL, Very highSecondary prevention optimal non HDL Cholesterol levels are recommended to be <100 mg/dL Performed By: #### L IPNF, 19926-2, 98686-6, 17078-2, TSHRF ####[facility] LABORATORYCLIA [id number] [address] STATES OF [facility] T CHOL/HDL RATIO NF 2.89 mg/dL Normal <5.10 [facility] Comment on above: Order Comment: Speci men Type: BLOOD SPECIMENOrdering Facility: [facility] Address: [address] [place] [address] Performed By: #### L IPNF, 56985-6, 71801-7, 04138-2, TSHRF ####[facility]ORATORYCLIA [id number] [address] [place] TRIGLYCERIDES, NF 123 mg/dL Normal <150 [facility] Comment on above: Order Comment: Speci men Type: BLOOD SPECIMENOrdering Facility: [facility] Address: [address] [place] [address] Result Comment: <150 mg/dL, Normal 150-199 mg/dL, Borderline high 200-499 mg/dL, High>499 mg/dL, Very high Performed By: #### L IPNF, 76848-7, 39646-2, 94748-0, TSHRF ####[facility] LABORATORYCLIA [id number] [address] STATES OF [facility] VLDL CHOLESTEROL, NF 17 mg/dL Normal <30 [facility] Comment on above: Order Comment: Speci men Type: BLOOD SPECIMENOrdering Facility: [facility] Address: [address] [place] [address] Performed By: #### L IPNF, 45797-2, 67140-5, 32315-7, TSHRF ####[facility] LABORATORYCLIA [id number] [address] STATES OF [facility] Magnesium [facility] [place] 12-11 Magnesium [Mass/Vol] 2.0 mg/dL Normal 1.7-2.3 [facility] Comment on above: Order Comment: Speci men Type: BLOOD SPECIMENOrdering Facility: [facility] Address: [address] [place] [address] Performed By: #### L IPNF, 71456-8, 74775-1, 06175-1, TSHRF ####[facility] LABORATORYCLIA [id number] [address] [place] [facility] Natriuretic peptide.B prohormone N-Terminal [Mass/Vol] 1593 pg/mL High <125 [facility] Comment on above: Order Comment: Speci men Type: BLOOD SPECIMENOrdering Facility: [facility] Address: [address] [place] [address] Performed By: #### L IPNF, 15461-3, 81721-7, 16774-3, TSHRF ####[facility] LABORATORYCLIA [id number] [address] [place] NUTRITIONon 12-11-2024 NUTRITION Normal [facility] Renal function 2000 panelon 12-11-2024 Albumin [Mass/Vol] 3.2 g/dL Low 3.9-4.9 [facility] Comment on above: Order Comment: Speci men Type: BLOOD SPECIMENOrdering Facility: [facility] Address: [address] [place] [address] Performed By: #### L IPNF, 40366-3, 35425-8, 56821-2, TSHRF ####[facility] LABORATORYCLIA [id number] [place] [address] [place] Anion gap [Moles/Vol] 10 mmol/L Normal 8-15 [facility] Comment on above: Order Comment: Speci men Type: BLOOD SPECIMENOrdering Facility: [facility] Address: [address] [place] [address] Performed By: #### L IPNF, 73384-3, 57414-1, 42302-0, TSHRF ####[facility] LABORATORYCLIA [id number] [place] [address] [place] Calcium [Mass/Vol] 9.0 mg/dL Normal 8.5-10.2 [facility] Comment on above: Order Comment: Speci men Type: BLOOD SPECIMENOrdering Facility: [facility] Address: [address] [place] [address] Performed By: #### L IPNF, 06796-9, 22607-4, 57503-8, TSHRF ####[facility] LABORATORYCLIA [id number] [place] [address] [place] Chloride [Moles/Vol] 92 mmol/L Low 98-107 [facility] Comment on above: Order Comment: Speci men Type: BLOOD SPECIMENOrdering Facility: [facility] Address: [address] [place] [address] Performed By: #### L IPNF, 91505-5, 06415-4, 59219-0, TSHRF ####[facility] LABORATORYCLIA [id number] [address] [place] CO2 [Moles/Vol] 27 mmol/L Normal 22-30 [facility] Comment on above: Order Comment: Franchesca estrada Type: BLOOD SPECIMENOrdering Facility: [facility] Address: [address] [place] [address] Performed By: #### L IPNF, 51596-7, 17627-9, 72879-0, TSHRF ####[facility] LABORATORYCLIA [id number] [place] [address] [place] Creatinine [Mass/Vol] 1.49 mg/dL High 0.73-1.22 [facility] Comment on above: Order Comment: Franchesca estrada Type: BLOOD SPECIMENOrdering Facility: [facility] Address: [address] [place] [address] Performed By: #### L IPNF, 93202-5, 88946-2, 72943-1, TSHRF ####[facility] LABORATORYCLIA [id number] [address] Creatinine and Glomerular filtration rate.predicted panel (S/P/Bld) 50 mL/min/1.73m??? Low >=60 [facility] Comment on above: Order Comment: Franchesca estrada Type: BLOOD SPECIMENOrdering Facility: [facility] Address: [address] [place] [address] Result Comment: Marcela mated Glomerular Filtration Rate [...] actual GFR. Performed By: #### L IPNF, 85528-0, 72986-0, 00146-3, TSHRF ####[facility] LABORATORYCLIA [id number] [address] [place] Glucose [Mass/Vol] 95 mg/dL Normal 74-99 [facility] Comment on above: Order Comment: Franchesca men Type: BLOOD SPECIMENOrdering Facility: [facility] Address: [address] [place] [address] Result Comment: The [place] Diabetes Association (ADA) provides guidance for cutoff [...] Standards of Medical Care in Diabetes 2016, [place] Diabetes Association. Diabetes Care. 2016.39(Suppl 1). Performed By: #### L IPNF, 58835-6, 40896-8, 72966-2, TSHRF ####[facility] LABORATORYCLIA [id number] [place] [address] [place] Phosphate [Mass/Vol] 3.4 mg/dL Normal 2.7-4.8 [facility] Comment on above: Order Comment: Speci men Type: BLOOD SPECIMENOrdering Facility: [facility] Address: [address] [place] [address] Performed By: #### L IPNF, 23117-7, 50849-0, 60825-4, TSHRF ####[facility] LABORATORYCLIA [id number] [place] [address] [place] Potassium [Moles/Vol] 3.7 mmol/L Normal 3.7-5.1 [facility] Comment on above: Order Comment: Speci men Type: BLOOD SPECIMENOrdering Facility: [facility] Address: [address] [place], [place] [address] Performed By: #### L IPNF, 95775-5, 12118-7, 04844-2, TSHRF ####[facility] LABORATORYCLIA [id number] [place] [address] [place] Sodium [Moles/Vol] 129 mmol/L Low 136-144 [facility] Comment on above: Order Comment: Speci men Type: BLOOD SPECIMENOrdering Facility: [facility] Address: [address] [place] [address] Performed By: #### L IPNF, 65159-3, 77059-2, 46190-2, TSHRF ####[facility] LABORATORYCLIA [id number] [address] STATES [facility] Urea nitrogen [Mass/Vol] 28 mg/dL High 9-24 [facility] Comment on above: Order Comment: Speci men Type: BLOOD SPECIMENOrdering Facility: [facility] Address: [address] [place] [address] Performed By: #### L IPNF, 51910-4, 94271-0, 37899-4, TSHRF ####[facility] LABORATORYCLIA [id number] [address] THERAPY NTon 12-11-2024 THERAPY NT Normal [facility] THERAPY NT Normal [facility] TSH W/REFLEX FT4on 5 TSH Qn 3.060 m[IU]/L Normal 0.270-4.200 [facility] Comment on above: Order Comment: Speci men Type: BLOOD SPECIMENOrdering Facility: [facility] Address: [address] [place] [address] Performed By: #### L IPNF, 30988-8, 64200-9, 57210-3, TSHRF ####[facility] LABORATORYCLIA [id number] [address] CBC panel Auto (Bld)on 12-10 Erythrocyte distribution width (RBC) [Ratio] 19.0 % High 11.5-15.0 [facility] Comment on above: Order Comment: Speci men Type: BLOOD SPECIMENOrdering Facility: [facility] Address: [address] [place] [address] Performed By: #### 5 8410-2 ####[facility] LABORATORYCLIA [id number] [address] Hematocrit (Bld) [Volume fraction] 24.1 % Low 39.0-51.0 [facility] Comment on above: Order Comment: Speci men Type: BLOOD SPECIMENOrdering Facility: [facility] Address: [address] [place] [address] Performed By: #### 5 8410-2 ####[facility] LABORATORYCLIA [id number] [address] OF [facility] Hemoglobin (Bld) [Mass/Vol] 7.9 g/dL Low 13.0-17.0 [facility] Comment on above: Order Comment: Speci men Type: BLOOD SPECIMENOrdering Facility: [facility] Address: [address] [place] [address] Performed By: #### 5 8410-2 ####[facility] LABORATORYCLIA [id number] [address] STATES OF [facility] MCH (RBC) [Entitic mass] 29.8 pg Normal 26.0-34.0 [facility] Comment on above: Order Comment: Speci men Type: BLOOD SPECIMENOrdering Facility: [facility] Address: [address] [place] [address] Performed By: #### 5 8410-2 ####[facility] LABORATORYCLIA [id number] [address] MCHC (RBC) [Mass/Vol] 32.8 g/dL Normal 30.5-36.0 [facility] Comment on above: Order Comment: Speci men Type: BLOOD SPECIMENOrdering Facility: [facility] Address: [address] [place] [address] Performed By: #### 5 8410-2 ####[facility] LABORATORYCLIA [id number] [address] MCV (RBC) [Entitic vol] 90.9 fL Normal 80.0-100.0 [facility] Comment on above: Order Comment: Speci men Type: BLOOD SPECIMENOrdering Facility: [facility] Address: [address] [place] [address] Performed By: #### 5 8410-2 ####[facility] LABORATORYCLIA [id number] [address] [place] Nucleated RBC (Bld) [#/Vol] 10*3/uL Normal <0.01 [facility] Comment on above: Order Comment: Speci men Type: BLOOD SPECIMENOrdering Facility: [facility] Address: [address] [place] [address] Performed By: #### 5 8410-2 ####[facility] LABORATORYCLIA [id number] [address] [place] Platelet mean volume (Bld) [Entitic vol] 9.3 fL Normal 9.0-12.7 [facility] Comment on above: Order Comment: Speci men Type: BLOOD SPECIMENOrdering Facility: [facility] Address: [address] [place] [address] Performed By: #### 5 8410-2 ####[facility] LABORATORYCLIA [id number] [address] [place] Platelets (Bld) [#/Vol] 511 10*3/uL High 150-400 [facility] Comment on above: Order Comment: Speci men Type: BLOOD SPECIMENOrdering Facility: [facility] Address: [address] [place] [address] Performed By: #### 5 8410-2 ####[facility] LABORATORYCLIA [id number] [place] [address] [place] RBC (Bld) [#/Vol] 2.65 10*6/uL Low 4.20-6.00 [facility] Comment on above: Order Comment: Speci men Type: BLOOD SPECIMENOrdering Facility: [facility] Address: [address] [place] [address] Performed By: #### 5 8410-2 ####[facility] LABORATORYCLIA [id number] [address] [place] WBC (Bld) [#/Vol] 14.75 10*3/uL High 3.70-11.00 [facility] Comment on above: Order Comment: Speci men Type: BLOOD SPECIMENOrdering Facility: [facility] Address: [address] [place] [address] Performed By: #### 5 8410-2 ####[facility] LABORATORYCLIA [id number] [place] [address] [place] CONSULTon 12-10-2024 CONSULT Normal [facility] Comprehensive metabolic 2000 panelon 12-10-2024 Albumin [Mass/Vol] 3.2 g/dL Low 3.9-4.9 [facility] Comment on above: Order Comment: Speci men Type: BLOOD SPECIMENOrdering Facility: [facility] Address: [address] [place] [address] Performed By: #### 2 4323-8, 18489-1, 2777-1 ####[facility] LABORATORYCLIA [id number] [place] [address] [place] ALP [Catalytic activity/Vol] 144 U/L High 38-113 [facility] Comment on above: Order Comment: Speci men Type: BLOOD SPECIMENOrdering Facility: [facility] Address: [address] [place] [address] Performed By: #### 2 4323-8, 95883-2, 2777-1 ####[facility] LABORATORYCLIA [id number] [place] [address] [place] ALT With P-5'-P [Catalytic activity/Vol] 29 U/L Normal 10-54 [facility] Comment on above: Order Comment: Speci men Type: BLOOD SPECIMENOrdering Facility: [facility] Address: [address] [place] [address] Performed By: #### 2 4323-8, 36742-9, 2777-1 ####[facility] LABORATORYCLIA [id number] [place] [address] [place] Anion gap [Moles/Vol] 11 mmol/L Normal 8-15 [facility] Comment on above: Order Comment: Speci men Type: BLOOD SPECIMENOrdering Facility: [facility] Address: [address] [place] [address] Performed By: #### 2 4323-8, 52829-4, 2777-1 ####[facility] LABORATORYCLIA [id number] [address] [place] AST With P-5'-P [Catalytic activity/Vol] 33 U/L Normal 14-40 [facility] Comment on above: Order Comment: Speci men Type: BLOOD SPECIMENOrdering Facility: [facility] Address: [address] [place] [address] Performed By: #### 2 4323-8, 38325-0, 2777-1 ####[facility] LABORATORYCLIA [id number] [place] [address] [place] Bilirubin [Mass/Vol] 1.1 mg/dL Normal 0.2-1.3 [facility] Comment on above: Order Comment: Speci men Type: BLOOD SPECIMENOrdering Facility: [facility] Address: [address] [place] [address] Performed By: #### 2 4323-8, 25642-3, 2777-1 ####[facility] LABORATORYCLIA [id number] [place] [address] [place] Calcium [Mass/Vol] 8.8 mg/dL Normal 8.5-10.2 [facility] Comment on above: Order Comment: Speci men Type: BLOOD SPECIMENOrdering Facility: [facility] Address: [address] [place] [address] Performed By: #### 2 4323-8, 24532-0, 2777- ####[facility] LABORATORYCLIA [id number] [place] [address] [place] Chloride [Moles/Vol] 92 mmol/L Low 98-107 [facility] Comment on above: Order Comment: Speci men Type: BLOOD SPECIMENOrdering Facility: [facility] Address: [address] [place] [address] Performed By: #### 2 4323-8, 32440-7, 2777-1 ####[facility] LABORATORYCLIA [id number] [place] [address] [place] CO2 [Moles/Vol] 29 mmol/L Normal 22-30 [facility] Comment on above: Order Comment: Franchesca estrada Type: BLOOD SPECIMENOrdering Facility: [facility] Address: [address] [place] [address] Performed By: #### 2 4323-8, 29967-7, 2777-1 ####[facility] LABORATORYCLIA [id number] [place] [address] [place] Creatinine [Mass/Vol] 1.62 mg/dL High 0.73-1.22 [facility] Comment on above: Order Comment: Franchesca estrada Type: BLOOD SPECIMENOrdering Facility: [facility] Address: [address] [place] [address] Performed By: #### 2 4323-8, 35788-6, 2777-1 ####[facility] LABORATORYCLIA [id number] [address] Creatinine and Glomerular filtration rate.predicted panel (S/P/Bld) 46 mL/min/1.73m??? Low >=60 [facility] Comment on above: Order Comment: Franchesca estrada Type: BLOOD SPECIMENOrdering Facility: [facility] Address: [address] [place] [address] Result Comment: Marcela mated Glomerular Filtration Rate [...] actual GFR. Performed By: #### 2 4323-8, 07925-9, 2777-1 ####[facility] LABORATORYCLIA [id number] [address] [place] Glucose [Mass/Vol] 112 mg/dL High 74-99 [facility] Comment on above: Order Comment: Franchesca estrada Type: BLOOD SPECIMENOrdering Facility: [facility] Address: [address] [place] [address] Result Comment: The [place] Diabetes Association (ADA) provides guidance for cutoff [...] Standards of Medical Care in Diabetes 2016, [place] [employer]. Diabetes Care. 2016.39(Suppl 1). Performed By: #### 2 4323-8, 16049-8, 2777-1 ####[facility] LABORATORYCLIA [id number] [place] [address] [place] Potassium [Moles/Vol] 3.5 mmol/L Low 3.7-5.1 [facility] Comment on above: Order Comment: Speci men Type: BLOOD SPECIMENOrdering Facility: [facility] Address: [address] [place] [address] Performed By: #### 2 4323-8, 41090-9, 2777-1 ####[facility] COUNTYCLIA [id number] [place] [address] [place] Protein [Mass/Vol] 7.4 g/dL Normal 6.3-8.0 [facility] Comment on above: Order Comment: Speci men Type: BLOOD SPECIMENOrdering Facility: [facility] Address: [address] [place] [address] Performed By: #### 2 4323-8, 98814-9, 2777-1 ####[facility] LABORATORYCLIA [id number] [place] [address] [place] Sodium [Moles/Vol] 132 mmol/L Low 136-144 [facility] Comment on above: Order Comment: Speci men Type: BLOOD SPECIMENOrdering Facility: [facility] Address: [address] [place] [address] Performed By: #### 2 4323-8, 43098-2, 2777-1 ####[facility] LABORATORYCLIA [id number] [place] [address] [place] Urea nitrogen [Mass/Vol] 19 mg/dL Normal 9-24 [facility] Comment on above: Order Comment: Speci men Type: BLOOD SPECIMENOrdering Facility: [facility] Address: [address] [place] [address] Performed By: #### 2 4323-8, 38237-9, 2777-1 ####[facility] LABORATORYCLIA [id number] [place] [address] [place] Creatinine Unsp time (U) [Ma ss/Vol]on 12-10-2024 Creatinine (U) [Mass/Vol] 51.1 mg/dL Normal 46.8-314.5 [facility] Comment on above: Order Comment: Speci men Type: URINE SPECIMENOrdering Facility: [facility] Address: [address] [place] [address] Performed By: #### 3 5674-1, UUNR, 2695-5, 41616-0 ####[facility] LABORATORYCLIA [id number] [address] ED NOTEon 12-10-2024 ED NOTE HNO ID: [id number] Author: STEVENSON JACKSON RN Service: Emergency Medicine Author Type: Registered Nurse Type: ED Notes Filed: 12/10/2024 08:40 Note Text: Breakfast tray to pt [facility] ED NOTE HNO ID: [id number] Author: MACHO PATTON RN Service: ? Author Type: Registered Nurse Type: ED Notes Filed: 12/10/2024 07:14 Note Text: Report given to Reina MARIN Normal [facility] ED NOTE HNO ID: [id number] Author: MACHO PATTON RN Service: ? Author Type: Registered Nurse Type: ED Notes Filed: 12/10/2024 06:30 Note Text: MICU team to reevaluate pt for downgrade to medical. MICU RN's will not accept pt at this time. Normal [facility] ED NOTE Normal [facility] ED NOTE HNO ID: [id number] Author: MACHO PATTON RN Service: ? Author Type: Registered Nurse Type: ED Notes Filed: 12/10/2024 05:15 Note Text: Trialling off of bipap at this time per Dr. Leda DALLAS. Normal [facility] ED NOTE HNO ID: [id number] Author: MACHO PATTON RN Service: ? Author Type: Registered Nurse Type: ED Notes Filed: 12/10/2024 02:53 Note Text: RN pulled from pt for critical care. Normal [facility] HISTORY PHYSICALon HISTORY PHYSICAL Normal [facility] Osmolality Uron 12-10-2024 Osmolality (U) [Osmolality] 280 mosm/kg Normal 50-1200 [facility] Comment on above: Order Comment: Speci men Type: URINE SPECIMENOrdering Facility: [facility] Address: [address] [place] [address] Performed By: #### 3 5674-1, UUNR, 2695-5, 41430-2 ####[facility] LABORATORYCLIA [id number] [place] [address] [place] Phosphate SerPl-mCncon 12-10 Phosphate [Mass/Vol] 4.4 mg/dL Normal 2.7-4.8 [facility] Comment on above: Order Comment: Speci men Type: BLOOD SPECIMENOrdering Facility: [facility] Address: [address] [place] [address] Performed By: #### 2 4323-8, 65365-0, 2777-1 ####[facility] LABORATORYCLIA [id number] [place] [address] [place] Procalcitonin SerPl-mCncon 0 12-10-2024 Procalcitonin [Mass/Vol] 12.90 ng/mL High <0.09 [facility] Comment on above: Order Comment: Speci men Type: BLOOD SPECIMENOrdering Facility: [facility] Address: [address] [place] [address] Result Comment: For a guided interpretation of test results, please visit the Change in Procalcitonin Calculator, [email or web address]. Performed By: #### 2 4323-8, 69823-2, 2777-1 ####[facility] LABORATORYCLIA [id number] [place] [address] [place] Sodium ?Tm Ur-sCncon 025 Sodium Unsp time (U) [Moles/Vol] 21 mmol/L Normal 14-216 [facility] Comment on above: Order Comment: Speci men Type: URINE SPECIMENOrdering Facility: [facility] Address: [address] [place] [address] Performed By: #### 3 5674-1, UUNR, 9995-5, 27009-4 ####[facility] LABORATORYCLIA [id number] [address] [place] UREA NITROGEN, RANDOM URINEo n 12-10-2024 UREA NITROGEN,UR,RAN 366 mg/dL Normal 140-1500 [facility] Comment on above: Order Comment: Speci men Type: URINE SPECIMENOrdering Facility: [facility] Address: [address] [place] [address] Performed By: #### 3 5674-1, UUNR, 2694-5, 48173-7 ####[facility] LABORATORYCLIA [id number] [place] [address] [place] US KIDNEY/BLADDERon 12-11-19 25 US KIDNEY/BLADDER Normal [facility] Urinalysis complete panel (U )on 12-10-2024 Bacteria LM.HPF (Urine sed) [#/Area] Few Abnormal None Seen [facility] Comment on above: Order Comment: Speci men Type: URINE SPECIMENOrdering Facility: [facility] Address: [address] [place] [address] Performed By: #### 2 4356-8 ####[facility] LABORATORYCLIA [id number] [place] [address] [place] Bilirubin Ql (U) Negative Normal Negative [facility] Comment on above: Order Comment: Speci men Type: URINE SPECIMENOrdering Facility: [facility] Address: [address] [place] [address] Performed By: #### 2 4356-8 ####[facility] LABORATORYCLIA [id number] [address] [place] Clarity (Unsp spec) Clear Normal Clear [facility] Comment on above: Order Comment: Speci men Type: URINE SPECIMENOrdering Facility: [facility] Address: [address] [place] [address] Performed By: #### 2 4356-8 ####[facility] LABORATORYCLIA [id number] [address] [place] Color (U) Yellow Normal yellow [facility] Comment on above: Order Comment: Speci men Type: URINE SPECIMENOrdering Facility: [facility] Address: [address] [place] [address] Performed By: #### 2 4356-8 ####[facility] LABORATORYCLIA [id number] [address] [place] Epithelial cells LM.HPF (Urine sed) [#/Area] Few Abnormal None Seen [facility] Comment on above: Order Comment: Speci men Type: URINE SPECIMENOrdering Facility: [facility] Address: [address] [place] [address] Performed By: #### 2 4356-8 ####[facility] LABORATORYCLIA [id number] [place] [address] [place] Glucose Test strip (U) [Mass/Vol] Negative Normal Trace, Negative [facility] Comment on above: Order Comment: Speci men Type: URINE SPECIMENOrdering Facility: [facility] Address: [address] [place] [address] Performed By: #### 2 4356-8 ####[facility] LABORATORYCLIA [id number] [address] [place] Hemoglobin Ql (U) Trace Normal Negative, Trace [facility] Comment on above: Order Comment: Speci men Type: URINE SPECIMENOrdering Facility: [facility] Address: [address] [place] [address] Performed By: #### 2 4356-8 ####[facility] LABORATORYCLIA [id number] [address] [place] Ketones Ql (U) Negative Normal Negative, Trace [facility] Comment on above: Order Comment: Speci men Type: URINE SPECIMENOrdering Facility: [facility] Address: [address] [place] [address] Performed By: #### 2 4356-8 ####[facility] LABORATORYCLIA [id number] [address] [place] Leukocyte esterase Test strip Ql (U) Negative Normal Negative, 25 Judy/uL [facility] Comment on above: Order Comment: Speci men Type: URINE SPECIMENOrdering Facility: [facility] Address: [address] [place] [address] Performed By: #### 2 4356-8 ####[facility] LABORATORYCLIA [id number] [place] [address] [place] Nitrite Ql (U) Negative Normal Negative [facility] Comment on above: Order Comment: Speci men Type: URINE SPECIMENOrdering Facility: [facility] Address: [address] [place] [address] Performed By: #### 2 4356-8 ####[facility] LABORATORYCLIA [id number] [address] [place] pH (U) 6.0 [pH] Normal 5.0-8.0 [facility] Comment on above: Order Comment: Speci men Type: URINE SPECIMENOrdering Facility: [facility] Address: [address] [place] [address] Performed By: #### 2 4356-8 ####[facility] LABORATORYCLIA [id number] [address] [place] Protein (U) [Mass/Vol] Trace Normal Trace , Negative [facility] Comment on above: Order Comment: Speci men Type: URINE SPECIMENOrdering Facility: [facility] Address: [address] [place] [address] Performed By: #### 2 4356-8 ####[facility] LABORATORYCLIA [id number] [address] RBC LM.HPF (Urine sed) [#/Area] 0-3 /HPF Normal 0-3 /HPF [facility] Comment on above: Order Comment: Speci men Type: URINE SPECIMENOrdering Facility: [facility] Address: [address] [place] [address] Performed By: #### 2 4356-8 ####[facility] LABORATORYCLIA [id number] [address] Specific gravity (U) [Rel density] 1.012 Normal 1.005-1.030 [facility] Comment on above: Order Comment: Speci men Type: URINE SPECIMENOrdering Facility: [facility] Address: [address] [place] [address] Performed By: #### 2 4356-8 ####[facility] LABORATORYCLIA [id number] [address] Urobilinogen Ql (U) Normal Normal Normal [facility] Comment on above: Order Comment: Speci men Type: URINE SPECIMENOrdering Facility: [facility] Address: [address] [place] [address] Performed By: #### 2 4356-8 ####[facility] LABORATORYCLIA [id number] [address] [place] WBC LM.HPF (Urine sed) [#/Area] 6-10 /HPF Abnormal 0-5 /HPF [facility] Comment on above: Order Comment: Speci men Type: URINE SPECIMENOrdering Facility: [facility] Address: [address] [place] [address] Performed By: #### 2 4356-8 ####[facility] LABORATORYCLIA [id number] [address] [place] ABO AND RH ONLYon 12-09-2024 ABO B Normal [facility] Comment on above: Order Comment: Speci men Type: BLOOD SPECIMENOrdering Facility: [facility] Address: [address] [place] [address] Performed By: #### L [id number], ABORH, [id number], TRXN ####[facility] BLOOD BANKCLIA [id number] [address] Rh Nom (Bld) Positive Normal [facility] Comment on above: Order Comment: Speci men Type: BLOOD SPECIMENOrdering Facility: [facility] Address: [address] [place] [address] Performed By: #### L [id number], ABORH, [id number], TRXN ####[facility] BLOOD BANKCLIA [id number] [address] ALLIED HEALTHon 12-09-2024 ALLIED HEALTH Normal [facility] BLOOD BANK PLACEHOLDER, RAMOS SFUSION REACTION PATHOLOGY REPORTon 12-09-2024 BLOOD BANK REPORT, TRANSFUSION REACTION PATHOLOGY REPORT See Pathology Report Normal [facility] Comment on above: Order Comment: Speci men Type: BLOOD SPECIMENOrdering Facility: [facility] Address: [address] [place] [address] Performed By: #### L [id number], ABORH, [id number], TRXN ####[facility] BLOOD BANKCLIA [id number] [address] TYPE AND SCREEN EXPIRATION 12/12/2024 23:59 Normal [facility] Comment on above: Order Comment: Speci men Type: BLOOD SPECIMENOrdering Facility: [facility] Address: [address] [place] [address] Performed By: #### L [id number], ABORH, [id number], TRXN ####[facility] BLOOD BANKCLIA [id number] [address] BLOOD BANK REPORT, TRANSFUSI ON REACTION PATHOLOGY REPORTon 12-09-2024 PATHOLOGY INTERPRETATION Normal [facility] Comment on above: Order Comment: Speci men Type: BLOOD SPECIMENOrdering Facility: [facility] Address: [address] [place], [place] [id number] Result Comment: Leida stigation details: The patient is a 69 year old male with PMH of stage IV lung adenocarcinoma and alcohol dependence who presented to [facility] ED on 12/09/2024 with complaints of worsening [...] at 0945 EDT Performed By: #### L [id number] ####[facility] LABORATORYCLIA [id number] [place] [address] [place] Basic metabolic 2000 panelon 12-09-2024 Anion gap [Moles/Vol] 11 mmol/L Normal 8-15 [facility] Comment on above: Order Comment: Speci men Type: BLOOD SPECIMENOrdering Facility: [facility] Address: [address] [place] [address] Performed By: #### 1 9123-9, 24295-1 ####[facility] LABORATORYCLIA [id number] [place] [address] [place] Calcium [Mass/Vol] 9.0 mg/dL Normal 8.5-10.2 [facility] Comment on above: Order Comment: Speci men Type: BLOOD SPECIMENOrdering Facility: [facility] Address: [address] [place] [address] Performed By: #### 1 9123-9, 86785-3 ####[facility] LABORATORYCLIA [id number] [place] [address] [place] Chloride [Moles/Vol] 93 mmol/L Low 98-107 [facility] Comment on above: Order Comment: Speci men Type: BLOOD SPECIMENOrdering Facility: [facility] Address: [address] [place] [address] Performed By: #### 1 91239, 44242-4 ####[facility] LABORATORYCLIA [id number] [place] [address] [place] CO2 [Moles/Vol] 29 mmol/L Normal 22-30 [facility] Comment on above: Order Comment: Speci men Type: BLOOD SPECIMENOrdering Facility: [facility] Address: [address] [place] [address] Performed By: #### 1 91239, ####[facility] LABORATORYCLIA [id number] [place] [address] [place] Creatinine [Mass/Vol] 1.25 mg/dL High 0.73-1.22 [facility] Comment on above: Order Comment: Speci men Type: BLOOD SPECIMENOrdering Facility: [facility] Address: [address] [place] [address] Performed By: #### 1 9123-9, 98601-3 ####[facility] LABORATORYCLIA [id number] [place] [address] [place] Creatinine and Glomerular filtration rate.predicted panel (S/P/Bld) 62 mL/min/1.73m??? Normal >=60 [facility] Comment on above: Order Comment: Franchesca estrada Type: BLOOD SPECIMENOrdering Facility: [facility] Address: [address] [place] [address] Result Comment: Marcela mated Glomerular Filtration Rate [...] actual GFR. Performed By: #### 1 9123-9, 32927-4 ####[facility] LABORATORYCLIA [id number] [place] [address] [place] Glucose [Mass/Vol] 100 mg/dL High 74-99 [facility] Comment on above: Order Comment: Franchesca estrada Type: BLOOD SPECIMENOrdering Facility: [facility] Address: [address] [place] [address] Result Comment: The [place] [employer] (ADA) provides guidance for cutoff [...] Standards of Medical Care in Diabetes 2016, [place] [employer]. Diabetes Care. 2016.39(Suppl 1). Performed By: #### 1 9123-9, 83360-3 ####[facility] LABORATORYCLIA [id number] [place] [address] [place] Potassium [Moles/Vol] 4.1 mmol/L Normal 3.7-5.1 [facility] Comment on above: Order Comment: Franchesca estrada Type: BLOOD SPECIMENOrdering Facility: [facility] Address: [address] [place] [address] Performed By: #### 1 9123-9, 45576-6 ####[facility] LABORATORYCLIA [id number] [address] STATES [facility] Sodium [Moles/Vol] 133 mmol/L Low 136-144 [facility] Comment on above: Order Comment: Speci men Type: BLOOD SPECIMENOrdering Facility: [facility] Address: [address] [place] [address] Performed By: #### 1 9123-9, 84920-7 ####[facility] LABORATORYCLIA [id number] [address] STATES OF [facility] Urea nitrogen [Mass/Vol] 15 mg/dL Normal 9-24 [facility] Comment on above: Order Comment: Speci men Type: BLOOD SPECIMENOrdering Facility: [facility] Address: [address] [place] [address] Performed By: #### 1 9123-9, 58598-2 ####[facility] LABORATORYCLIA [id number] [address] [place] CBC W Auto Differential pane l (Bld)on 12-09-2024 Anisocytosis Ql (Bld) Present Normal [facility] Comment on above: Order Comment: Speci men Type: BLOOD SPECIMENOrdering Facility: [facility] Address: [address] [place] [address] Performed By: #### 5 7021-8 ####[facility] LABORATORYCLIA [id number] [address] [place] Basophils (Bld) [#/Vol] 0.00 10*3/uL Normal <0.11 [facility] Comment on above: Order Comment: Speci men Type: BLOOD SPECIMENOrdering Facility: [facility] Address: [address] [place] [address] Performed By: #### 5 7021-8 ####[facility] LABORATORYCLIA [id number] [address] Basophils/100 WBC (Bld) 0.0 % Normal [facility] Comment on above: Order Comment: Speci men Type: BLOOD SPECIMENOrdering Facility: [facility] Address: [address] [place] [address] Performed By: #### 5 7021-8 ####[facility] LABORATORYCLIA [id number] [address] STATES OF [facility] Differential cell count method Nom (Bld) Manual Normal [facility] Comment on above: Order Comment: Speci men Type: BLOOD SPECIMENOrdering Facility: [facility] Address: [address] [place] [address] Performed By: #### 5 7021-8 ####[facility] LABORATORYCLIA [id number] [address] Eosinophils (Bld) [#/Vol] 0.00 10*3/uL Normal <0.46 [facility] Comment on above: Order Comment: Speci men Type: BLOOD SPECIMENOrdering Facility: [facility] Address: [address] [place] [address] Performed By: #### 5 7021-8 ####[facility] LABORATORYCLIA [id number] [address] Eosinophils/100 WBC (Bld) 0.0 % Normal [facility] Comment on above: Order Comment: Speci men Type: BLOOD SPECIMENOrdering Facility: [facility] Address: [address] [place] [address] Performed By: #### 5 7021-8 ####[facility]ORATORYCLIA [id number] [address] [place] Erythrocyte distribution width (RBC) [Ratio] 20.2 % High 11.5-15.0 [facility] Comment on above: Order Comment: Speci men Type: BLOOD SPECIMENOrdering Facility: [facility] Address: [address] [place] [address] Performed By: #### 5 7021-8 ####[facility] LABORATORYCLIA [id number] [address] [place] Hematocrit (Bld) [Volume fraction] 18.4 % Low 39.0-51.0 [facility] Comment on above: Order Comment: Speci men Type: BLOOD SPECIMENOrdering Facility: [facility] Address: [address] [place] [address] Performed By: #### 5 7021-8 ####[facility] LABORATORYCLIA [id number] [address] [place] Hemoglobin (Bld) [Mass/Vol] 5.9 g/dL Critically low 13.0-17.0 [facility] Comment on above: Order Comment: Speci men Type: BLOOD SPECIMENOrdering Facility: [facility] Address: [address] [place] [address] Result Comment: No c lot detected. Performed By: #### 5 7021-8 ####[facility] LABORATORYCLIA [id number] [address] [place] Lymphocytes (Bld) [#/Vol] 0.63 10*3/uL Low 1.00-4.00 [facility] Comment on above: Order Comment: Speci men Type: BLOOD SPECIMENOrdering Facility: [facility] Address: [address] [place] [address] Performed By: #### 5 7021-8 ####[facility] LABORATORYCLIA [id number] [address] OF [place] Lymphocytes/100 WBC (Bld) 6.0 % Normal [facility] Comment on above: Order Comment: Speci men Type: BLOOD SPECIMENOrdering Facility: [facility] Address: [address] [place] [address] Performed By: #### 5 7021-8 ####[facility] LABORATORYCLIA [id number] [address] [place] MCH (RBC) [Entitic mass] 29.9 pg Normal 26.0-34.0 [facility] Comment on above: Order Comment: Speci men Type: BLOOD SPECIMENOrdering Facility: [facility] Address: [address] [place] [address] Performed By: #### 5 7021-8 ####[facility] LABORATORYCLIA [id number] [address] [place] MCHC (RBC) [Mass/Vol] 32.1 g/dL Normal 30.5-36.0 [facility] Comment on above: Order Comment: Speci men Type: BLOOD SPECIMENOrdering Facility: [facility] Address: [address] [place] [address] Performed By: #### 5 7021-8 ####[facility] LABORATORYCLIA [id number] [address] [place] MCV (RBC) [Entitic vol] 93.4 fL Normal 80.0-100.0 [facility] Comment on above: Order Comment: Speci men Type: BLOOD SPECIMENOrdering Facility: [facility] Address: [address] [place] [address] Performed By: #### 5 7021-8 ####[facility] LABORATORYCLIA [id number] [address] Metamyelocytes/100 WBC (Bld) 2.0 % Normal [facility] Comment on above: Order Comment: Speci men Type: BLOOD SPECIMENOrdering Facility: [facility] Address: [address] [place] [address] Performed By: #### 5 7021-8 ####[facility] LABORATORYCLIA [id number] [address] [place] Monocytes (Bld) [#/Vol] 0.94 10*3/uL High <0.87 [facility] Comment on above: Order Comment: Speci men Type: BLOOD SPECIMENOrdering Facility: [facility] Address: [address] [place] [address] Performed By: #### 5 7021-8 ####[facility] LABORATORYCLIA [id number] [address] Monocytes/100 WBC (Bld) 9.0 % Normal [facility] Comment on above: Order Comment: Speci men Type: BLOOD SPECIMENOrdering Facility: [facility] Address: [address] [place] [address] Performed By: #### 5 7021-8 ####[facility]ORATORYCLIA [id number] [address] [place] MYELO% 2.0 % Normal [facility] Comment on above: Order Comment: Speci men Type: BLOOD SPECIMENOrdering Facility: [facility] Address: [address] [place] [address] Performed By: #### 5 7021-8 ####[facility] LABORATORYCLIA [id number] [address] [place] Neutrophils (Bld) [#/Vol] 8.48 10*3/uL High 1.45-7.50 [facility] Comment on above: Order Comment: Speci men Type: BLOOD SPECIMENOrdering Facility: [facility] Address: [address] [place] [address] Performed By: #### 5 7021-8 ####[facility]ORATORYCLIA [id number] [address] [place] Neutrophils/100 WBC (Bld) 81.0 % Normal [facility] Comment on above: Order Comment: Speci men Type: BLOOD SPECIMENOrdering Facility: [facility] Address: [address] [place] [address] Performed By: #### 5 7021-8 ####[facility] LABORATORYCLIA [id number] [place] [address] [place] Nucleated RBC (Bld) [#/Vol] 10*3/uL Normal <0.01 [facility] Comment on above: Order Comment: Speci men Type: BLOOD SPECIMENOrdering Facility: [facility] Address: [address] [place] [address] Performed By: #### 5 7021-8 ####[facility]ORATORYCLIA [id number] [address] [place] Nucleated RBC/100 WBC (Bld) [Ratio] 0.0 /100 WBC Normal [facility] Comment on above: Order Comment: Speci men Type: BLOOD SPECIMENOrdering Facility: [facility] Address: [address] [place] [address] Performed By: #### 5 7021-8 ####[facility] LABORATORYCLIA [id number] [address] [place] Platelet mean volume (Bld) [Entitic vol] 9.4 fL Normal 9.0-12.7 [facility] Comment on above: Order Comment: Speci men Type: BLOOD SPECIMENOrdering Facility: [facility] Address: [address] [place] [address] Performed By: #### 5 7021-8 ####[facility] LABORATORYCLIA [id number] [address] STATES [facility] Platelets (Bld) [#/Vol] 568 10*3/uL High 150-400 [facility] Comment on above: Order Comment: Speci men Type: BLOOD SPECIMENOrdering Facility: [facility] Address: [address] [place] [address] Performed By: #### 5 7021-8 ####[facility] LABORATORYCLIA [id number] [address] Platelets Estimate (Bld) [#/Vol] Increased Normal [facility] Comment on above: Order Comment: Speci men Type: BLOOD SPECIMENOrdering Facility: [facility] Address: [address] [place] [address] Performed By: #### 5 7021-8 ####[facility] LABORATORYCLIA [id number] [address] [place] Polychromasia LM Ql (Bld) Slight Normal [facility] Comment on above: Order Comment: Speci men Type: BLOOD SPECIMENOrdering Facility: [facility] Address: [address] [place] [address] Performed By: #### 5 7021-8 ####[facility] LABORATORYCLIA [id number] [place] [address] [place] RBC (Bld) [#/Vol] 1.97 10*6/uL Low 4.20-6.00 [facility] Comment on above: Order Comment: Speci men Type: BLOOD SPECIMENOrdering Facility: [facility] Address: [address] [place] [address] Performed By: #### 5 7021-8 ####[facility] LABORATORYCLIA [id number] [address] RED CELL MORPH Reviewed: see result s of individual morphologies Normal [facility] Comment on above: Order Comment: Speci men Type: BLOOD SPECIMENOrdering Facility: [facility] Address: [address] [place] [address] Performed By: #### 5 7021-8 ####[facility] LABORATORYCLIA [id number] [address] WBC (Bld) [#/Vol] 10.47 10*3/uL Normal 3.70-11.00 [facility] Comment on above: Order Comment: Speci men Type: BLOOD SPECIMENOrdering Facility: [facility] Address: [address] [place] [address] Performed By: #### 5 7021-8 ####[facility] LABORATORYCLIA [id number] [address] CBC panel Auto (Bld)on 12-09 Erythrocyte distribution width (RBC) [Ratio] 18.6 % High 11.5-15.0 [facility] Comment on above: Order Comment: Speci men Type: BLOOD SPECIMENOrdering Facility: [facility] Address: [address] [place] [address] Performed By: #### 5 8410-2 ####[facility] LABORATORYCLIA [id number] [address] Hematocrit (Bld) [Volume fraction] 25.1 % Low 39.0-51.0 [facility] Comment on above: Order Comment: Speci men Type: BLOOD SPECIMENOrdering Facility: [facility] Address: [address] [place] [address] Performed By: #### 5 8410-2 ####[facility] LABORATORYCLIA [id number] [address] OF [facility] Hemoglobin (Bld) [Mass/Vol] 8.2 g/dL Low 13.0-17.0 [facility] Comment on above: Order Comment: Speci men Type: BLOOD SPECIMENOrdering Facility: [facility] Address: [address] [place] [address] Performed By: #### 5 8410-2 ####[facility] LABORATORYCLIA [id number] [address] MCH (RBC) [Entitic mass] 29.7 pg Normal 26.0-34.0 [facility] Comment on above: Order Comment: Speci men Type: BLOOD SPECIMENOrdering Facility: [facility] Address: [address] [place] [address] Performed By: #### 5 8410-2 ####[facility] LABORATORYCLIA [id number] [address] MCHC (RBC) [Mass/Vol] 32.7 g/dL Normal 30.5-36.0 [facility] Comment on above: Order Comment: Speci men Type: BLOOD SPECIMENOrdering Facility: [facility] Address: [address] [place] [address] Performed By: #### 5 8410-2 ####[facility] LABORATORYCLIA [id number] [address] OF [facility] MCV (RBC) [Entitic vol] 90.9 fL Normal 80.0-100.0 [facility] Comment on above: Order Comment: Speci men Type: BLOOD SPECIMENOrdering Facility: [facility] Address: [address] [place] [address] Performed By: #### 5 8410-2 ####[facility] LABORATORYCLIA [id number] [address] Nucleated RBC (Bld) [#/Vol] 10*3/uL Normal <0.01 [facility] Comment on above: Order Comment: Speci men Type: BLOOD SPECIMENOrdering Facility: [facility] Address: [facility] [place] [address] Performed By: #### 5 8410-2 ####[facility] LABORATORYCLIA [id number] [address] [place] Platelet mean volume (Bld) [Entitic vol] 9.1 fL Normal 9.0-12.7 [facility] Comment on above: Order Comment: Speci men Type: BLOOD SPECIMENOrdering Facility: [facility] Address: [address] [place] [address] Performed By: #### 5 8410-2 ####[facility] LABORATORYCLIA [id number] [address] OF [place] Platelets (Bld) [#/Vol] 505 10*3/uL High 150-400 [facility] Comment on above: Order Comment: Speci men Type: BLOOD SPECIMENOrdering Facility: [facility] Address: [address] [place] [address] Performed By: #### 5 8410-2 ####[facility] LABORATORYCLIA [id number] [place] [address] [place] RBC (Bld) [#/Vol] 2.76 10*6/uL Low 4.20-6.00 [facility] Comment on above: Order Comment: Speci men Type: BLOOD SPECIMENOrdering Facility: [facility] Address: [address] [place] [address] Performed By: #### 5 8410-2 ####[facility] LABORATORYCLIA [id number] [address] [place] WBC (Bld) [#/Vol] 14.89 10*3/uL High 3.70-11.00 [facility] Comment on above: Order Comment: Speci men Type: BLOOD SPECIMENOrdering Facility: [facility] Address: [address] [place] [address] Performed By: #### 5 8410-2 ####[facility] LABORATORYCLIA [id number] [place] [address] [place] BLOOD TYPEon 025 ABO B Normal [facility] Comment on above: Order Comment: Speci men Type: BLOOD SPECIMENOrdering Facility: [facility] Address: [address] [place] [address] Performed By: #### C ONABO ####[facility] BLOOD BANKCLIA [id number] [address] Rh Nom (Bld) Positive Normal [facility] Comment on above: Order Comment: Speci men Type: BLOOD SPECIMENOrdering Facility: [facility] Address: [address] [place] [address] Performed By: #### C ONABO ####[facility] BLOOD BANKCLIA [id number] [address] CTA CHEST (NON GATED) W IVCO N PEon 12-09-2024 CTA CHEST (NON GATED) W IVCON PE Normal [facility] ECG COMPLETEon 12-09-2024 ECG COMPLETE Normal [facility] ED NOTEon 12-09-2024 ED NOTE Normal [facility] ED NOTE HNO ID: [id number] Author: MACHO PATTON RN Service: ? Author Type: Registered Nurse Type: ED Notes Filed: 12/09/2024 23:18 Note Text: Pt replaced on bipap by RT upon arrival to ED-3 [facility] ED NOTE HNO ID: [id number] Author: ASHVIN FELIX RN Service: Emergency Medicine Author Type: Registered Nurse Type: ED Notes Filed: 12/09/2024 23:15 Note Text: Pt moved to room 3, report given to TOMAS Isidro. [facility] ED NOTE HNO ID: [id number] Author: RADHA BEAL RN Service: ? Author Type: Registered Nurse Type: ED Notes Filed: 12/09/2024 23:14 Note Text: Bed: 03-ED Expected date: Expected time: Means of arrival: Comments: RM 444 Normal [facility] ED NOTE HNO ID: [id number] Author: ASHVIN FELIX, TOMAS Service: Emergency Medicine Author Type: Registered Nurse Type: ED Notes Filed: 12/09/2024 19:46 Note Text: RT notified that pt will need BiPAP. Normal [facility] ED NOTE HNO ID: [id number] Author: ASHVIN FELIX, RN Service: Emergency Medicine Author Type: Registered Nurse Type: ED Notes Filed: 12/09/2024 19:45 Note Text: Pt with increased work of breathing. Pt placed on NRB at this time. Normal [facility] ED NOTE Normal [facility] ED NOTE HNO ID: [id number] Author: ASHVIN FELIX, RN Service: Emergency Medicine Author Type: Registered Nurse Type: ED Notes Filed: 12/09/2024 18:03 Note Text: Ok for pt to eat and drink per Dr. Contreras. Normal [facility] ED NOTE HNO ID: [id number] Author: ASHVIN FELIX, RN Service: Emergency Medicine Author Type: Registered Nurse Type: ED Notes Filed: 12/09/2024 15:11 Note Text: CT notified pt ready at this time. Normal [facility] ED NOTE HNO ID: [id number] Author: ASHVIN FELIX, RN Service: Emergency Medicine Author Type: Registered Nurse Type: ED Notes Filed: 12/09/2024 14:10 Note Text: Pt placed on child monitor with blood pressure and continuous pulse ox. Normal [facility] ED NOTE Normal [facility] ED PROGRESS NOTE (PROVIDER)o n 12-09-2024 ED PROGRESS NOTE (PROVIDER) [facility] ED PROV NOTEon 12-09-2024 ED PROV NOTE Normal [facility] Gas and Carbon monoxide pane l (BldV)on 12-09-2024 Base excess Calc (BldV) [Moles/Vol] 2 mmol/L Normal 0-2 [facility] Comment on above: Order Comment: Speci men Type: VENOUS BLOOD SPECIMENOrdering Facility: [facility] Address: [address] [place] [address] Performed By: #### 2 4344-4 ####[facility] LABORATORYCLIA [id number] [place] [address] [place] Body temperature 98.6 [degF] Normal [facility] Comment on above: Order Comment: Speci men Type: VENOUS BLOOD SPECIMENOrdering Facility: [facility] Address: [address] [place] [address] Performed By: #### 2 4344-4 ####[facility] LABORATORYCLIA [id number] [address] OF [facility] Calcium.ionized (BldV) [Mass/Vol] 1.03 mmol/L Low 1.08-1.30 [facility] Comment on above: Order Comment: Speci men Type: VENOUS BLOOD SPECIMENOrdering Facility: [facility] Address: [address] [place] [address] Performed By: #### 2 4344-4 ####[facility] LABORATORYCLIA [id number] [address] OF [facility] Calcium.ionized adjusted to pH 7.4 (BldA) [Moles/Vol] 1.06 mmol/L Low 1.08-1.30 [facility] Comment on above: Order Comment: Speci men Type: VENOUS BLOOD SPECIMENOrdering Facility: [facility] Address: [address] [place] [address] Performed By: #### 2 4344-4 ####[facility] LABORATORYCLIA [id number] [address] [place] Carboxyhemoglobin (BldV) [Mass fraction] 2.9 % High 0.0-2.0 [facility] Comment on above: Order Comment: Speci men Type: VENOUS BLOOD SPECIMENOrdering Facility: [facility] Address: [address] [place] [address] Result Comment: Carb oxyhemoglobin Reference Range for Smokers: 2.0-8.0% Performed By: #### 2 4344-4 ####[facility] LABORATORYCLIA [id number] [address] OF [facility] Chloride [Moles/Vol] 101 mmol/L Normal 97-105 [facility] Comment on above: Order Comment: Speci men Type: VENOUS BLOOD SPECIMENOrdering Facility: [facility] Address: [address] [place], [place] [id number] Performed By: #### 2 4344-4 ####[facility] LABORATORYCLIA [id number] [address] [place] CO2 (BldV) [Partial pressure] 36 mm[Hg] Low 42-55 [facility] Comment on above: Order Comment: Speci men Type: VENOUS BLOOD SPECIMENOrdering Facility: [facility] Address: [address] [place] [address] Performed By: #### 2 4344-4 ####[facility] LABORATORYCLIA [id number] [address] [place] Glucose [Mass/Vol] 95 mg/dL Normal 60-105 [facility] Comment on above: Order Comment: Speci men Type: VENOUS BLOOD SPECIMENOrdering Facility: [facility] Address: [address] [place] [address] Performed By: #### 2 4344-4 ####[facility] LABORATORYCLIA [id number] [address] [place] HCO3 (Bld) [Moles/Vol] 25 mmol/L Normal 24-28 [facility] Comment on above: Order Comment: Speci men Type: VENOUS BLOOD SPECIMENOrdering Facility: [facility] Address: [address] [place] [address] Performed By: #### 2 4344-4 ####[facility] LABORATORYCLIA [id number] [address] [place] Hematocrit (Bld) [Volume fraction] 24.5 % Low 39.0-51.0 [facility] Comment on above: Order Comment: Speci men Type: VENOUS BLOOD SPECIMENOrdering Facility: [facility] Address: [address] [place] [address] Performed By: #### 2 4344-4 ####[facility] LABORATORYCLIA [id number] [address] [place] Hemoglobin (Bld) [Mass/Vol] 7.9 g/dL Low 13.0-17.0 [facility] Comment on above: Order Comment: Speci men Type: VENOUS BLOOD SPECIMENOrdering Facility: [facility] Address: [address] [place] [address] Performed By: #### 2 4344-4 ####[facility]ORATORYCLIA [id number] [address] [place] Lactate [Moles/Vol] 1.1 mmol/L Normal 0.5-2.2 [facility] Comment on above: Order Comment: Speci men Type: VENOUS BLOOD SPECIMENOrdering Facility: [facility] Address: [address] [place] [address] Performed By: #### 2 4344-4 ####[facility] GENERAL LABORATORYCLIA [id number] [address] [place] Methemoglobin (Bld) [Mass fraction] 0.8 % Normal 0.0-1.5 [facility] Comment on above: Order Comment: Speci men Type: VENOUS BLOOD SPECIMENOrdering Facility: [facility] Address: [address] [place] [address] Performed By: #### 2 4344-4 ####[facility] LABORATORYCLIA [id number] [address] OF [facility] O2 THERAPY Positive Normal [facility] Comment on above: Order Comment: Speci men Type: VENOUS BLOOD SPECIMENOrdering Facility: [facility] Address: [address] [place] [address] Performed By: #### 2 4344-4 ####[facility]ORATORYCLIA [id number] [address] [place] Oxygen (BldV) [Partial pressure] 171 mm[Hg] High 35-45 [facility] Comment on above: Order Comment: Speci men Type: VENOUS BLOOD SPECIMENOrdering Facility: [facility] Address: [address] [place] [address] Performed By: #### 2 4344-4 ####[facility]ORATORYCLIA [id number] [address] [place] Oxygen saturation in Venous blood 99 % High 60-85 [facility] Comment on above: Order Comment: Speci men Type: VENOUS BLOOD SPECIMENOrdering Facility: [facility] Address: [address] [place] [address] Performed By: #### 2 4344-4 ####[facility] LABORATORYCLIA [id number] [address] [place] Oxyhemoglobin (BldV) [Mass fraction] 96 % High 60-85 [facility] Comment on above: Order Comment: Speci men Type: VENOUS BLOOD SPECIMENOrdering Facility: [facility] Address: [address] [place] [address] Performed By: #### 2 4344-4 ####[facility] LABORATORYCLIA [id number] [place] [address] [place] pH (BldV) 7.47 [pH] High 7.32-7.42 [facility] Comment on above: Order Comment: Speci men Type: VENOUS BLOOD SPECIMENOrdering Facility: [facility] Address: [address] [place] [address] Performed By: #### 2 4344-4 ####[facility] LABORATORYCLIA [id number] [address] [place] Potassium [Moles/Vol] 3.4 mmol/L Low 3.5-5.0 [facility] Comment on above: Order Comment: Speci men Type: VENOUS BLOOD SPECIMENOrdering Facility: [facility] Address: [address] [place] [address] Performed By: #### 2 4344-4 ####[facility] [facility]ORYCLIA [id number] [place] [address] [place] Sodium [Moles/Vol] 135 mmol/L Low 136-144 [facility] Comment on above: Order Comment: Speci men Type: VENOUS BLOOD SPECIMENOrdering Facility: [facility] Address: [address] [place] [address] Performed By: #### 2 [id number] ####[facility] LABORATORYCLIA [id number] [place] [address] [place] HIGH SENSITIVITY TROPONIN T (INITIAL)on 12-09-2024 Troponin T.cardiac High sensitivity method [Mass/Vol] 25 ng/L High <12 [facility] Comment on above: Order Comment: Speci men Type: BLOOD SPECIMENOrdering Facility: [facility] Address: [address] [place] [address] Performed By: #### L [id number] ####[facility] LABORATORYCLIA [id number] [address] HIGH SENSITIVITY TROPONIN T (SECOND)on 12-09-2024 Troponin T.cardiac High sensitivity method [Mass/Vol] 21 ng/L High <12 [facility] Comment on above: Order Comment: Speci men Type: BLOOD SPECIMENOrdering Facility: [facility] Address: [address] [place] [address] Performed By: #### L [id number] ####[facility] LABORATORYCLIA [id number] [address] HIGH SENSITIVITY TROPONIN T (THIRD) 3 HRS AFTER INITIALon 12-09-2024 Troponin T.cardiac High sensitivity method [Mass/Vol] 22 ng/L High <12 [facility] Comment on above: Order Comment: Speci men Type: BLOOD SPECIMENOrdering Facility: [facility] Address: [address] [place] [address] Performed By: #### L [id number] ####[facility] LABORATORYCLIA [id number] [address] OF [facility] HISTORY PHYSICALon HISTORY PHYSICAL Normal [facility] HISTORY PHYSICAL Normal [facility] Legionella Ag Ur Qlon 2024 Legionella sp Ag Ql (U) Negative Normal Negative A [facility] Comment on above: Order Comment: Speci men Type: URINE SPECIMENOrdering Facility: [facility] Address: [address] [place] [address] Result Comment: Pres umptive negative for L. [...] the test. Performed By: #### 3 [id number] ####[facility] LABORATORYCLIA [id number] [address] [place] Magnesium SerPl-mCncon 12-09 Magnesium [Mass/Vol] 1.7 mg/dL Normal 1.7-2.3 [facility] Comment on above: Order Comment: Speci men Type: BLOOD SPECIMENOrdering Facility: [facility] Address: [address] [place] [address] Performed By: #### 1 9123-9, 20752-0 ####[facility] LABORATORYCLIA [id number] [address] [place] STREPTOCOCCUS PNEUMONIAE ANT IGEN URINEon 12-09-2024 STREPTOCOCCUS PNEUMONIAE ANTIGEN URINE Normal [facility] Comment on above: Performed By: #### S PNAG ####[facility] LABORATORYCLIA [id number] [address] OF [facility] TOXICOLOGY SCREEN, ROUTINE U RINEon 12-09-2024 Amphetamines Confirm (U) [Mass/Vol] Positive Abnormal Negative [facility] Comment on above: Order Comment: Speci men Type: URINE SPECIMENOrdering Facility: [facility] Address: [address] [place] [address] Result Comment: Cuto ff threshold at 1000 ng/mL. Performed By: #### U TOX2 ####[facility] LABORATORYCLIA [id number] [place] [address] [place] BARBITURATES, URINE Negative Normal Negative [facility] Comment on above: Order Comment: Speci men Type: URINE SPECIMENOrdering Facility: [facility] Address: [address] [place] [address] Result Comment: Cuto ff threshold at 200 ng/mL. Performed By: #### U TOX2 ####[facility] LABORATORYCLIA [id number] [place] [address] [place] BENZODIAZEPINES, UR Negative Normal Negative [facility] Comment on above: Order Comment: Speci men Type: URINE SPECIMENOrdering Facility: [facility] Address: [address] [place] [address] Result Comment: Cuto ff threshold at 200 ng/mL. Performed By: #### U TOX2 ####[facility]ATORYCLIA [id number] [address] OF [facility] Cannabinoids Screen Ql (U) Negative Normal Negative [facility] Comment on above: Order Comment: Speci men Type: URINE SPECIMENOrdering Facility: [facility] Address: [address] [place] [address] Result Comment: Cuto ff threshold at 50 ng/mL. Performed By: #### U TOX2 ####[facility]ATORYCLIA [id number] [address] Cocaine Ql (U) Negative Normal Negative [facility] Comment on above: Order Comment: Speci men Type: URINE SPECIMENOrdering Facility: [facility] Address: [address] [place] [address] Result Comment: Cuto ff threshold at 300 ng/mL. Performed By: #### U TOX2 ####[facility] LABORATORYCLIA [id number] [address] STATES [facility] Ethanol (U) [Mass/Vol] <11 Normal <11 [facility] Comment on above: Order Comment: Speci men Type: URINE SPECIMENOrdering Facility: [facility] Address: [address] [place] [address] Performed By: #### U TOX2 ####[facility]ORYCLIA [id number] [address] OF [facility] Opiates Screen Ql (U) Negative Normal Negative [facility] Comment on above: Order Comment: Speci men Type: URINE SPECIMENOrdering Facility: [facility] Address: [address] [place] [address] Result Comment: Cuto ff threshold at 300 ng/mL. Performed By: #### U TOX2 ####[facility]ATORYCLIA [id number] [address] [place] oxyCODONE cutoff Screen (U) [Mass/Vol] Positive Abnormal Negative [facility] Comment on above: Order Comment: Speci men Type: URINE SPECIMENOrdering Facility: [facility] Address: [address] [place] [address] Result Comment: Cuto ff threshold at 100 ng/mL. Performed By: #### U TOX2 ####[facility] LABORATORYCLIA [id number] [address] Phencyclidine Ql (U) Negative Normal Negative [facility] Comment on above: Order Comment: Speci men Type: URINE SPECIMENOrdering Facility: [facility] Address: [address] [place] [address] Result Comment: Cuto ff threshold at 25 ng/mL. Performed By: #### U TOX2 ####[facility] LABORATORYCLIA [id number] [address] [place] TRANSFUSION REACTION ADDITIO NAL WORKUPon 12-09-2024 POST C3 DAGT Positive Normal [facility] Comment on above: Order Comment: Speci men Type: BLOOD SPECIMENOrdering Facility: [facility] Address: [address] [place] [address] Performed By: #### L [id number], ABORH, [id number], TRXN ####[facility] BLOOD BANKCLIA [id number] [address] OF [facility] POST IGG DAGT Negative Normal [facility] Comment on above: Order Comment: Speci men Type: BLOOD SPECIMENOrdering Facility: [facility] Address: [address] [place] [address] Performed By: #### L [id number], ABORH, [id number], TRXN ####[facility] BLOOD BANKCLIA [id number] [address] [place] PRE C3 DAGT Positive Normal [facility] Comment on above: Order Comment: Speci men Type: BLOOD SPECIMENOrdering Facility: [facility] Address: [address] [place] [address] Performed By: #### L [id number], ABORH, [id number], TRXN ####[facility] BLOOD BANKCLIA [id number] [place], [place] [id number] [place] [address] [place] PRE IGG DAGT Negative Normal [facility] Comment on above: Order Comment: Speci men Type: BLOOD SPECIMENOrdering Facility: [facility] Address: [address] [place] [address] Performed By: #### L [id number], ABORH, [id number], TRXN ####[facility] BLOOD BANKCLIA [id number] [place] [address] [place] PRE POLY DAGT Positive Normal [facility] Comment on above: Order Comment: Speci men Type: BLOOD SPECIMENOrdering Facility: [facility] Address: [address] [place] [address] Performed By: #### L [id number], ABORH, [id number], TRXN ####[facility] BLOOD BANKCLIA [id number] [address] [place] TRANSFUSION REACTION EVALon 12-09-2024 OK TO TRANSFUSE Yes Normal [facility] Comment on above: Order Comment: Speci men Type: BLOOD SPECIMENOrdering Facility: [facility] Address: [address] [place] [address] Result Comment: [facility] Approval given by: Dr. Andersno (if medically necessary) Performed By: #### L [id number], ABORH, [id number], TRXN ####[facility] BLOOD BANKCLIA [id number] [place] [address] [place] POST POLY DAGT Positive Normal [facility] Comment on above: Order Comment: Speci men Type: BLOOD SPECIMENOrdering Facility: [facility] Address: [address] [place] [address] Performed By: #### L [id number], ABORH, [id number], TRXN ####[facility] BLOOD BANKCLIA [id number] [address] [place] TYPE + SCREENon 12-09-2024 ABO B Normal [facility] Comment on above: Order Comment: Speci men Type: BLOOD SPECIMENOrdering Facility: [facility] Address: [address] [place] [address] Performed By: #### T SCR ####[facility] BLOOD BANKCLIA [id number] [place] [id number] [place] Rh Nom (Bld) Positive Normal [facility] Comment on above: Order Comment: Speci men Type: BLOOD SPECIMENOrdering Facility: [facility] Address: [address] [place] [address] Performed By: #### T SCR ####[facility] BLOOD BANKCLIA [id number] [place] [id number] [place] TYPE AND SCREEN EXPIRATION 12/12/2024 23:59 Normal [facility] Comment on above: Order Comment: Speci men Type: BLOOD SPECIMENOrdering Facility: [facility] Address: [address] [place] [address] Performed By: #### T SCR ####[facility] BLOOD BANKCLIA [id number] [place] [id number] [place] XR CHEST 1V FRONTALon 2024 XR CHEST 1V FRONTAL Normal [facility] Vital Signs Date Time Vital Sign Value Performing Clinician Facility 03-09-2025 20:58-0400 Body temperature 98.1 [degF] [facility] 03-09-2025 20:58-0400 Diastolic blood pressure 77 mm[Hg] [facility] 03-09-2025 20:58-0400 Heart rate 89 /min [facility] 03-09-2025 20:58-0400 Respiratory rate 15 /min [facility] 03-09-2025 20:58-0400 SaO2% (BldA) [Mass fraction] 98 % [facility] 03-09-2025 20:58-0400 Systolic blood pressure 109 mm[Hg] [facility] 03-09-2025 20:21-0400 Inhaled oxygen flow rate 3 L/min [facility] 03-09-2025 19:00-0400 Inhaled oxygen concentration 30 % [facility] 03-09-2025 14:58-0400 Body height 177.[address] [facility] 03-09-2025 14:58-0400 Body mass index (BMI) [Ratio] 20.6 kg/m2 [facility] 03-09-2025 14:58-0400 Body weight 65.[address] [facility] 03-08-2025 19:44-0400 Respiratory rate 20 /min [facility] 03-08-2025 15:09-0400 Body temperature 96.6 [degF] [facility] 03-08-2025 15:09-0400 Diastolic blood pressure 70 mm[Hg] [facility] 03-08-2025 15:09-0400 Heart rate 94 /min [facility] 03-08-2025 15:09-0400 Inhaled oxygen flow rate 2 L/min [facility] 03-08-2025 15:09-0400 SaO2% (BldA) [Mass fraction] 93 % [facility] 03-08-2025 15:09-0400 Systolic blood pressure 94 mm[Hg] [facility] 03-08-2025 14:41-0400 Body height 177.[address] [facility] 03-08-2025 14:41-0400 Body weight 63.[address] [facility] 03-01-2025 19:19-0400 Body mass index (BMI) [Ratio] 20.2 kg/m2 [facility] 03-01-2025 18:00-0400 Body temperature 98.3 [degF] [facility] 03-01-2025 18:00-0400 Diastolic blood pressure 79 mm[Hg] [facility] 03-01-2025 18:00-0400 Heart rate 115 /min [facility] 03-01-2025 18:00-0400 Respiratory rate 24 /min [facility] 03-01-2025 18:00-0400 SaO2% (BldA) [Mass fraction] 97 % [facility] 03-01-2025 18:00-0400 Systolic blood pressure 102 mm[Hg] [facility] 03-01-2025 16:00-0400 Inhaled oxygen flow rate 3 L/min [facility] 03-01-2025 01:34-0400 Body height [address] [facility] 03-01-2025 01:34-0400 Body mass index (BMI) [Ratio] 22.8 kg/m2 [facility] 03-01-2025 01:34-0400 Body weight 72.[address] [facility] 01-04-2025 12:18-0400 Body temperature 98.1 [degF] [facility] 01-04-2025 12:18-0400 Diastolic blood pressure 66 mm[Hg] [facility] 01-04-2025 12:18-0400 Heart rate 108 /min [facility] 01-04-2025 12:18-0400 Respiratory rate 21 /min [facility] 01-04-2025 12:18-0400 SaO2% (BldA) [Mass fraction] 96 % [facility] 01-04-2025 12:18-0400 Systolic blood pressure 96 mm[Hg] [facility] 01-04-2025 06:30-0400 Inhaled oxygen flow rate 15 L/min [facility] 01-04-2025 06:27-0400 Body height 177.[address] [facility] 01-04-2025 06:27-0400 Body mass index (BMI) [Ratio] 23.4 kg/m2 [facility] 01-04-2025 06:27-0400 Body weight 74.[address] [facility] Encounters Encounter Date Encounter Type Care Provider Facility Start: 03-09-2025 Evaluation and management of inpatient Dr. Zackery Christian DO -Intensive Care Unit Work Phone: Start: 03-08-2025 Non-patient / Non-visit Leeann Miller [employer] Start: 03-08-2025 Non-patient / Non-visit Dr. Pj ayala DO [facility] Work Phone: Start: 03-07-2025 Non-patient / Non-visit Dr. Zackery mason MD [facility] Work Phone: Start: 03-06-2025 Non-patient / Non-visit Dr. Marissa Gallardo MD -[facility] Work Phone: Start: 03-05-2025 Non-patient / Non-visit Leeann Miller [employer] -[facility] Start: 03-04-2025 Non-patient / Non-visit Leeann Boschaspjamal [employer] -[facility] Start: 03-04-2025 Non-patient / Non-visit Dr. Zackery mason MD [facility] Work Phone: Start: 03-03-2025 Non-patient / Non-visit Leeann Boschaspjamal [employer] -[facility] Start: 03-03-2025 Non-patient / Non-visit Dr. Zackery mason MD [facility] Work Phone: Start: 03-02-2025 Non-patient / Non-visit Leeann Miller [employer] -[facility] Start: 03-02-2025 [facility] Facility:[facility] Start: 03-02-2025 Non-patient / Non-visit Dr. Jovon cedeño MD -[facility] Start: 03-01-2025 [facility] Facility:[facility] Start: 03-01-2025 End: 03-08-2025 Evaluation and management of inpatient Dr. Kavita Myles MD -Progressive Care Unit Work Phone: Start: 01-04-2025 End: 01-04-2025 Emergency department patient visit [facility] -Emergency Department Work Phone: Start: 12-09-2024 End: 12-22-2024 [facility] Facility:[facility] Procedures Date Procedure Procedure Detail Performing Clinician Start: 03-09-2025 Urnls dip stick/tabl et reagent auto microscopy [facility] Start: 03-09-2025 CT angiography of ch est with contrast [facility] Start: 03-09-2025 Plain chest X-ray [facility] Start: 03-09-2025 Estimated creatinine clearance [facility] Start: 03-09-2025 Blood count complete auto&auto difrntl wbc [facility] Comment on above: Previous reported re sult: 2.2 %Edited by: JANESSA on 03/09/25:1835 AMENDED REPORT 03/09/251834 EO% previously reported as: 2.2 % Start: 03-09-2025 Flow cytometry cell surf marker techl only 1st [facility] Comment on above: Previous reported re sult: 81.0 %Edited by: JANESSA on 03/09/25:1834 AMENDED REPORT 03/09/251833 NEUT% previously reported as: 81.0 H % Previous reported re sult: 5.4 %Edited by: JANESSA on 03/09/25:1834 AMENDED REPORT 03/09/251833 MONO% previously reported as: 5.4 % Previous reported re sult: 0.7 %Edited by: JANESSA on 03/09/25:1834 AMENDED REPORT 03/09/251834 BASO% previously reported as: 0.7 % Start: 03-09-2025 SARS-CoV-2, Influenz a & RSV (PCR) [facility] Start: 03-08-2025 Estimated creatinine clearance [facility] Start: 03-08-2025 Flow cytometry cell surf marker techl only 1st [facility] Start: 03-08-2025 Serum inorganic phos phate measurement [facility] Start: 03-01-[facility] Start: 03-01-2025 Legionella pneumophi la antigen assay [facility] Start: 03-01-2025 Nucleic acid assay [facility] Start: 03-01-2025 End: 03-01-2025 Streptococcus pneumoniae antigen assay [facility] Start: 03-01-2025 Estimated creatinine clearance [facility] Start: 03-01-2025 CT angiography of ch est with contrast [facility] Start: 01-04-2025 [facility] Start: 01-04-[facility]25 [facility] Start: 01-04-2025 Urnls dip stick/tabl et reagent auto microscopy [facility] Start: 01-04-2025 Computed tomography of abdomen and pelvis with intravenous [facility] Start: 01-04-2025 CT angiography of ch est with contrast [facility] Start: 01-04-2025 X-ray of chest, PA a nd lateral views [facility] Start: 01-04-2025 Estimated creatinine clearance [facility] Start: 01-04-2025 Flow cytometry cell surf marker techl only 1st [facility] Start: 12-20-2024 Antibody screen [facility] Comment on above: Order Comment: Speci men Type: BLOOD SPECIMENOrdering Facility: [facility] Address: [address] [place] [address] Performed By: #### T SCR ####[facility] BLOOD BANKCLIA [id number] [address] Start: 12-13-2024 Antibody screen [facility] Comment on above: Order Comment: Speci men Type: BLOOD SPECIMENOrdering Facility: [facility] Address: [address] [place] [address] Performed By: #### T SCR ####[facility] BLOOD BANKCLIA [id number] [address] Start: 12-10-2024 Echocardiography [facility] Start: 12-09-2024 Antibody screen [facility] Comment on above: Order Comment: Speci men Type: BLOOD SPECIMENOrdering Facility: [facility] Address: [address] [place] [address] Performed By: #### T SCR ####[facility] BLOOD BANKCLIA [id number] [address] Plan of Treatment Date Care Activity Detail Author Start: 03-10-2025 Chest 1 View (Portable) Chest 1 View (Portable) [facility] Start: 03-10-2025 XR Chest Single view [facility] Start: 03-10-2025 Gas panel - Arterial blood [facility] Start: 03-09-2025 Legionella pneumophi la Ag [Presence] in Urine [facility] Start: 03-09-2025 Streptococcus pneumo niae antigen assay [facility] Start: 03-09-2025 [facility] Start: 03-09-2025 Admission procedure [facility] Start: 03-09-2025 Hospital admission, emergency, from emergency room, medical nature [facility] Start: 03-09-2025 [facility] Start: 03-09-2025 Continuous pulse oximetry [facility] Start: 03-09-2025 Dual pressure sponta neous ventilation support [facility] Start: 03-09-2025 End: 03-09-2025 [facility] Start: 03-09-2025 Bacteria identified in Blood by Culture Blood Culture [facility] Start: 03-09-2025 Bacteria identified in Urine by Culture Urine Culture [facility] Start: 03-08-2025 Patient discharge [facility] Start: 03-07-2025 Care planning and pr oblem solving actions [facility] Start: 03-07-2025 Care planning and pr oblem solving actions [facility] Start: 03-06-2025 [facility] Start: 03-03-2025 Palliative care [facility] Start: 03-02-2025 Oxygen therapy [facility] Start: 03-02-2025 Palliative care [facility] Start: 03-02-2025 Inhalation therapy procedure [facility] Start: 03-01-2025 Application of inter mittent pneumatic compression device [facility] Start: 03-01-2025 Following clinical p athway protocol [facility] Start: 03-01-2025 Assessment of risk o f venous thromboembolism [facility] Start: 03-01-2025 Bedrest [facility] Start: 03-01-2025 Elevation of head of bed [facility] Start: 03-01-2025 Insertion of cathete r into peripheral vein [facility] Start: 03-01-2025 Measuring intake and output [facility] Start: 03-01-2025 Notification of physician [facility] Start: 03-01-2025 Patient education [facility] Start: 03-01-2025 Providing care accor ding to standard [facility] Start: 03-01-2025 Referral to occupati onal therapist [facility] Start: 03-01-2025 Referral to service [facility] Start: 03-01-2025 [facility] Start: 03-01-2025 Admission procedure [facility] Start: 03-01-2025 Hospital admission, emergency, from emergency room, medical nature [facility] Start: 03-01-2025 Bacteria identified in Blood by Culture Blood Culture [facility] Start: 03-01-2025 [facility] Start: 03-01-2025 [facility] Start: 03-01-2025 Patient referral to dietitian [facility] Start: 01-04-2025 Bacteria identified in Blood by Culture Blood Culture [facility] Start: 01-04-2025 Bacteria identified in Urine by Culture Urine Culture [facility] Start: 01-04-2025 [facility] Start: 01-04-2025 End: 01-04-2025 [facility] Start: 01-04-2025 X-ray of chest, PA a nd lateral views Chest PA and Lateral [facility] Start: 01-04-2025 XR Chest PA and Lateral [facility] Natriuretic peptide. B prohormone N-Terminal [Mass/volume] in Serum or Plasma [facility] Troponin T.cardiac [Mass/volume] in Serum or Plasma by High sensitivity method [facility] Urine culture [facility] Urine culture [facility] Payers Date Payer Category Payer Self-pay 2024 Unknown [id number] 1992 Medicare [id number] Medicare [id number] Unknown [id number] 2.16.8 [id number] Unknown [id number] 2.16.8 [id number] Unknown [id number] 2.16.8 [id number] Unknown [id number] 2.16.8 [id number] Unknown [id number] .16.8 [id number] Unknown [id number] 2.16.8 40.1.227631.3.579.2.462 Unknown [id number] 2.16.8 40.1.759211.3.579.2.462 Unknown [id number] 2.16.8 40.1.557890.3.579.2.462 Unknown [id number] 2.16.8 [id number] Unknown [id number] 2.16.8 [id number] Unknown [id number] 2.16.8 [id number] Unknown [id number] 2.16.8 [id number] Unknown [id number] 2.16.8 [id number] Unknown [id number] 2.16.8 [id number] Unknown [id number] 2.16.8 [id number] Social History Date Type Detail Facility Start: 01-04-2025 End: 03-09-2025 Tobacco smoking status [facility]IS Ex-smoker (finding) [facility] Start: 03-21-2016 Alcohol Alcohol [facility] Start: 03-21-2016 Drugs Drugs [facility] Start: 03-21-2016 Lives Lives [facility] Start: 03-21-2016 Tobacco Use Tobacco Use [facility] Start: 1955 Sex Assigned At Male W [facility] Goals Date Patient Goal Desired Activity /State Functional Status Date Assessment Result Facility 03-08-2025 Functional status [facility] Work Phone: Mental Status Date Assessment Result Facility 03-08-2025 Cognitive function Voice/Name [facility] Work Phone: Clinical Notes 12-09-2024 to 03-09-2025 Note Date & Type Note Facility 03-09-2025 Discharge summary [facility] 03-09-2025 Radiology Diagnostic study note [facility] Imaging Services [address] [place] [address] CTA Chest W/WO Contrast MR#: [id number] Acct: [id number] Name: EMETERIO CHENEY Rep #: [id number] : 1955 M 69 From: [facility] ruth Edwards MD PCP: [facility] Status: REG ER Study:CTA Chest W/WO Contrast Date of Exam: 03/09/25 Exam# [id number] Ordering Dr: Clair Guillaume DO PROCEDURE: CTA CHEST W/WO CONTRAST 03/09/2025 REASON FOR EXAM: SOB TECHNIQUE: Procedure Code: [id number] Modality: CT Procedure: CTA CHEST W/WO CONTRAST Multiplanar Sagittal and Coronal images were obtained. 3D post processing was performed. CONTRAST: Isovue 370 VOLUME: 100 mL One or more dose reduction techniques were used (e.g., Automated exposure control, adjustment of the mA and/or kV according to patient size, use of iterative reconstruction technique). RADIATION DOSE SUMMARY: DLP: 283.39 mGycm COMPARISON: CTA chest 03/01/2025. FINDINGS: Since 03/01/2025, no substantial interval change in the large ill-defined left upper lobe mass with component extending to the left hilum and left aspect of the mediastinum. Associated postobstructive consolidation and atelectasis with subtotal opacification of the left lung. Small left pleural effusion, which is probably malignant. Similar innumerable scattered metastatic pulmonary nodules throughout the contralateral right lung. Similar bulky metastatic mediastinal and bilateral hilar lymphadenopathy, most prominent in the paratracheal and subcarinal patient's. Associated narrowing and partial obstruction or compression of the left tracheobronchial airway. No pneumothorax. Additionally, there is bulky metastatic lower cervical lymphadenopathy, most pronounced in the left medial supraclavicular station. There is also prominent bulky left axillary lymphadenopathy, unchanged. No filling defects suspicious for pulmonary arterial emboli identified. Similarnarrowing/compression of the left pulmonary arterial central branches, without overt invasion or occlusion. Normal caliber of the main pulmonary trunk. No findings suggestive of right heart strain. Normal sized heart. No significant pericardial effusion. No coronary artery calcifications. Normal caliber thoracic aorta. No aneurysm or dissection. Multiple prominent enlarged metastatic lymph nodes within the visualized upper abdomen, in the epigastric/subcarinal stations, and visualized upper periaortic/inter aortocaval stations. Small epigastric midline ventral abdominal wall hernia containing fat, with internal nonspecific amorphous fat stranding. Multiple ill-defined sclerotic lesions throughout the visualized osseous structures, including the sternum and thoracic vertebrae, likely metastatic. No aggressive osseous erosion or destruction. Mild multilevel degenerative changes of the spine. Mild bilateral gynecomastia. CT/CTA Chest W/WO Contrast IMPRESSION: No acute findings; no pulmonary arterial emboli identified. Advanced pulmonary malignancy with widespread metastatic lymphadenopathy and associated findings as described above. No significant interval change from 03/01/2025. Reading Location: [facility] CC: Dr. Krishna Guillaume DO; [facility] ~ Senior Net Architect: Signed [facility] 03-09-2025 Radiology Diagnostic study note [facility] Imaging Services [address] [place] [address] Chest 1 View (Portable) MR#: [id number] Acct: [id number] Name: EMETERIO CHENEY Rep #: [id number] : 1955 69 From: Sergo Edwards MD PCP: [facility] Status: REG ER Study:Chest 1 View (Portable) Date of Exam: 03/09/25 Exam# [id number] Ordering Dr: Clair Guillaume DO PROCEDURE: CHEST 1 VIEW (PORTABLE) 03/09/2025 REASON FOR EXAM: SOB TECHNIQUE: Frontal view of the chest. COMPARISON: Chest x-ray 01/04/2025, CT chest 03/01/2025. FINDINGS: Lungs/Pleura: Near-complete whiteout opacification of the left hemithorax, with underlying large left upper lobe/perihilar mass lesion as previously demonstrated. There is likely progressed postobstructive atelectasis and/or consolidation, and with coexisting left pleural effusion. Numerous cannonball nodular metastatic lesions throughout the aerated right lung are more prominent from prior exam. Heart/Mediastinum: Enlarged but grossly stable, largely obscured by lung pathology. Bones/Soft tissues: Mild degenerative changes of the spine. No aggressive osseous erosion or destruction is appreciated. RAD/Chest 1 View (Portable) IMPRESSION: Interval progression of pulmonary malignancy with near-complete opacification ofleft hemithorax with underlying left upper lobe/perihilar mass lesion as previously described, likely with postobstructive atelectasis and/or pneumonia, and coexisting pleural effusion. Increased conspicuity of numerous nodular cannonball metastases throughout the right lung. Reading Location: [facility] CC: Dr. Krishna Guillaume DO; [facility] ~ Senior Net Architect: Signed [facility] 03-09-2025 Discharge summary Note Date/Time March 09, 2025 8:56pm [facility] Medical Records Department [address] [place] [address] Emergency Department Summary 03/09/25 MR#: [id number] Acct: [id number] Name: EMETERIO CHENEY Rep #:[id number] : 1955 69 From: Krishna Em PCP: [facility] Status:ADM IN Location: ICU ICU02-1 HPI History of Present Illness Chief Complaint: Shortness of Breath PFSH PFSH Medical History Hernia Lung cancer Home Medications ?Medication ?Instructions ?Recorded ?Last Taken ?Type dexamethasone 4 mg tablet 4 mg PO DAILY unknown Unknown History empagliflozin 25 mg tablet 12.5 mg PO DAILY unknown Unknown History (Jardiance) ondansetron 8 mg disintegrating 8 mg PO Q8H nausea 08/25 Unknown History tablet oxycodone 5 mg capsule 5 mg PO Q4H pain 03/02/25 History furosemide 40 mg tablet 40 mg PO DAILY #30 tabs 11/22 Unknown Rx guaifenesin 1,200 mg tablet, 1,200 mg PO BID #60 tabs 03/05/25 Unknown Rx extended release 12 hr (Mucus Relief ER) potassium chloride 20 mEq 20 meq PO BIDCM #60 tabs 11/22 Unknown Rx tablet,extended release(part/cryst) sennosides 8.6 mg-docusate sodium 2 tab PO BID #60 tab s 03/05/25 Unknown Rx 50 mg tablet (Stimulant Laxative Plus) apixaban 5 mg tablet (Eliquis) 5 mg PO BID #60 tabs Unknown Rx diltiazem HCl 120 mg 120 mg PO BID #60 caps 03/08 Unknown Rx capsule,extended release 24 hr metoprolol succinate 50 mg 50 mg PO DAILY #30 tabs 02/22 Unknown Rx tablet,extended release 24 hr Allergy/AdvReac Type Severity Reaction Status Date / Time No Known Allergies Allergy Verified 01/04/25 06:26 Social History Smoking Status: Former smoker EXAM Physical Exam Const Vital Signs: 03/09/25 14:58 03/09/25 14:58 03/09/25 15:07 Temperature 97.2 F L 97.2 F L Temperature Source Temporal Temporal Pulse Rate 152 H 138 H 144 H Respiratory Rate 24 H 21 H 27 H Respiratory Effort Respiratory Depth Respiratory Pattern Tachypnea Blood Pressure 88/70 L 88/70 L Blood Pressure Mean 76 76 Blood Pressure Source Blood Pressure Position Blood Pressure Location Pulse Ox 97 95 99 Oxygen Delivery Method Nasal Cannula Room Air Oxygen Flow Rate (L/min) 2 2 Fraction of Inspired Oxygen (FIO2) 30 03/09/25 15:09 03/09/25 15:30 03/09/25 15:57 Temperature Temperature Source Pulse Rate 145 H Respiratory Rate 29 H Respiratory Effort Short of Breath Labored Accessory Muscle Use Respiratory Depth Shallow Respiratory Pattern Tachypnea Blood Pressure 91/75 Blood Pressure Mean 80 Blood Pressure Source Blood Pressure Position Blood Pressure Location Pulse Ox 100 Oxygen Delivery Method Nasal Cannula Bi-pap Bi-pap Oxygen Flow Rate (L/min) 2 Fraction of Inspired Oxygen (FIO2) 30 03/09/25 16:00 03/09/25 16:20 03/09/25 16:37 Temperature 97.0 F L 97.0 F L Temperature Source Temporal Temporal Pulse Rate 134 H 145 H 131 H Respiratory Rate 27 H 32 H 29 H Respiratory Effort Respiratory Depth Respiratory Pattern Blood Pressure 93/75 86/67 L 89/62 L Blood Pressure Mean 81 73 71 Blood Pressure Source Blood Pressure Position Blood Pressure Location Pulse Ox 100 100 Oxygen Delivery Method Bi-pap Bi-pap Oxygen Flow Rate (L/min) Fraction of Inspired Oxygen (FIO2) 30 30 03/09/25 16:44 03/09/25 17:08 03/09/25 17:10 Temperature 97.0 F L 97.4 F L Temperature Source Temporal Temporal Pulse Rate 146 H 127 H 63 Respiratory Rate 24 H 21 H 22 H Respiratory Effort Respiratory Depth Respiratory Pattern Normal Blood Pressure 83/69 L 83/71 L Blood Pressure Mean 73 75 Blood Pressure Source Monitor Monitor Blood Pressure Position Sitting Blood Pressure Location Right Arm Pulse Ox 100 98 100 Oxygen Delivery Method Bi-pap Bi-pap Oxygen Flow Rate (L/min) Fraction of Inspired Oxygen (FIO2) 30 30 30 03/09/25 17:36 03/09/25 17:49 03/09/25 17:51 Temperature 97.2 F L 97.2 F L 97.1 F L Temperature Source Temporal Temporal Temporal Pulse Rate 126 H 149 H 123 H Respiratory Rate 19 H 20 H 17 Respiratory Effort Respiratory Depth Respiratory Pattern Blood Pressure 88/63 L 103/81 H 103/81 H Blood Pressure Mean 71 88 88 Blood Pressure Source Monitor Blood Pressure Position Semi-Fowlers Blood Pressure Location Right Arm Pulse Ox 100 99 99 Oxygen Delivery Method Bi-pap Bi-pap Bi-pap Oxygen Flow Rate (L/min) Fraction of Inspired Oxygen (FIO2) 30 30 30 03/09/25 18:06 03/09/25 18:10 03/09/25 18:21 Temperature 97.2 F L 97.2 F L Temperature Source Temporal Temporal Pulse Rate 76 82 Respiratory Rate 29 H 25 H Respiratory Effort Respiratory Depth Respiratory Pattern Blood Pressure 106/78 106/78 96/70 Blood Pressure Mean 87 87 78 Blood Pressure Source Blood Pressure Position Blood Pressure Location Pulse Ox 98 98 Oxygen Delivery Method Bi-pap Bi-pap Oxygen Flow Rate (L/min) Fraction of Inspired Oxygen (FIO2) 30 30 03/09/25 18:36 03/09/25 18:51 03/09/25 19:00 Temperature 97.2 F L 97.2 F L Temperature Source Temporal Temporal Pulse Rate 86 95 95 Respiratory Rate 27 H 14 14 Respiratory Effort Respiratory Depth Respiratory Pattern Blood Pressure 109/95 H 114/75 114/75 Blood Pressure Mean 99 88 88 Blood Pressure Source Blood Pressure Position Blood Pressure Location Pulse Ox 96 98 98 Oxygen Delivery Method Bi-pap Bi-pap Bi-pap Oxygen Flow Rate (L/min) Fraction of Inspired Oxygen (FIO2) 30 30 30 03/09/25 19:50 03/09/25 19:59 03/09/25 20:21 Temperature 98.1 F 97.2 F L Temperature Source Temporal Temporal Pulse Rate 87 97 Respiratory Rate 24 H 24 H Respiratory Effort Respiratory Depth Respiratory Pattern Blood Pressure 103/82 H 104/82 H Blood Pressure Mean 89 89 Blood Pressure Source Monitor Blood Pressure Position Semi-Fowlers Blood Pressure Location Right Arm Pulse Ox 100 99 99 Oxygen Delivery Method Nasal Cannula Nasal Cannula Nasal Cannula Oxygen Flow Rate (L/min) 3 3 3 Fraction of Inspired Oxygen (FIO2) Sepsis Attestation Sepsis Alert: Yes Sepsis Attestation: Agree w/Sepsis Date exam was performed: 03/09/25 Time exam was performed: 15:03 Possible Source of Sepsis: Pulmonary Sepsis Organ Dysfunction Criteria Present: SBP < 90 mmHg or MAP < 65 mmHg Fluid Resuscitation Fluid resuscitation indicated?: Yes Fluid Resuscitation ordered: Lesser volume fluid bolus ordered Amount of fluid ordered: 500 Reason for lesser fluid bolus:: Concern for fluid overload and Heart failure MDM MDM MDM Narrative Medical decision making narrative: HISTORY OF PRESENT ILLNESS: Chief complaint: Shortness of 69-year-old male history of metastatic lung cancer, respiratory failure, on Eliquis. Patient notes 1 day of increasing shortness of breath. Denies leg swelling. Denies cough fever chills. Denies chest pain. He denies palpitations. Denies any bleeding diathesis such as hemoptysis, melena or hematochezia. Notes he has been compliant with Eliquis. He reports he has a history of metastatic lung cancer but otherwise denies any PE risk factors. REVIEW OF SYSTEMS: Pertinent positives: Shortness of breath Pertinent negatives: As per HPI PHYSICAL EXAM: Nursing triage notes reviewed, Vital signs reviewed Constitutional: please see mdm HENT: MMM Eyes: Pupils equal round and reactive to light, Extraocular muscles intact Neck: No stridor, no JVD, full neck ROM Lungs: Increased work of breathing, conversational dyspnea, on BiPAP currently Heart: Regular rate and rhythm, No murmurs, No rubs and No gallops, 2+ distal pulses (radial, femoral, posterior tibial) in all extremities Abdomen: Soft, there is no tenderness, rigidity, rebound or guarding, no obviousperitoneal signs, no palpable pulsatile abdominal masses, no auscultated abdominal bruit : No CVAT Extremities: No edema Neuro: No new focal neurological deficits, cranial nerves II through XII intact,5/5 strength in all present extremities. Intact sensation to light touch in all present extremities, 2+ reflexes bilateral patella tendons. Skin: No rash or lesions noted MEDICAL DECISION MAKING: Chief Complaint: please see HPI External records reviewed: Reviewed recent hospitalization. Patient was discharged on 03/08/2025 (yesterday) for obstructive pneumonia, pleural effusion, lung cancer. Initial CT from the hospitalization showed left upper lobe/left hilar mass. Showed increased left pleural effusion. Echocardiogram from that time showed ejection fraction of 35%. Patient started on systemic anticoagulation at that time secondary to a flutter or A-fib. Patient is DNR CCA with no intubation in terms of CODE STATUS per his recent discharge summary Factors affecting care: As above Social determinants of health: none History obtained from others: none Consults: Internal medicine CODE STATUS: DNR CCA no intubation MDM Narrative: Patient was initially hypotensive with a blood pressure 88/70, was tachycardic initially with a heart rate of 152, tachypneic with respirate 24 saturating 97% with 2 L nasal cannula. Per respiratory therapy patient was tripoding showing increased work of breathing so placed on rescue BiPAP. I considered the following differential diagnosis: Pulm embolism, anemia, ACS arrhythmia, fluid overload, CHF exacerbation, electrolyte disturbance I obtained a broad lab and imaging work to further determine if the patient was suffering from a life-threatening etiology. Initially placed sepsis protocol given initial SIRS criteria and signs of hypotension Gave a gentle 500 cc bolus given initial hypotension. 500 cc bolus made no change in the patient's blood pressure or respiratory status. He remained hypotensive with a blood pressure in the 70s systolic and maps less than 65. Given extremis started the patient on peripheral Levophed. Just before Levophedwas started I gave a 5 mg dose of metoprolol to hopefully control some of his arrhythmia and attempt to improve his blood pressure. Plan to place a central line and give broad-spectrum antibiotics as the patient's white blood cell countcontinues to elevate consistent with possible sepsis/septic shock Patient also received broad-spectrum antibiotics in form of vancomycin and Zosyngiven elevated leukocytosis, signs of pneumonia on CT and x-ray as well as elevated lactate. ALL IMAGES (IF OBTAINED) HAVE BEEN PERSONALLY REVIEWED AND INTERPRETED BY MYSELF. EKG with right A-fib with RVR, normal intervals, no obvious CBC with leukocytosis suggestive of systemic inflammation, mild anemia, no thrombocytopenia No coagulopathy VBG without signs of respiratory acidosis The patient's chest x-ray was read and reviewed person myself showed evidence ofa large left-sided pleural effusion covering the entire hemothorax. Patchy infiltrates as well. COVID test was positive. No significant coagulopathy noted on coagulation studies BMP with mild hyponatremia, no sign of endorgan hypoperfusion with normal anion gap no sign of metabolic acidosis with normal bicarb Initial lactate elevated consistent with endorgan hypoperfusion Initial troponin elevated, delta troponin remained stable Initial BNP elevated consistent with heart failure Given patient had an EF of 35% heart failure only 500 cc bolus was given. Did not give a 30 cc/kg bolus despite signs of septic shock given concern for volumeoverload. Tissue perfusion remained adequate, volume status remained euglycemic During the patient's ED course I did give a small dose of Lasix given 5 cc bolusand history of heart failure to maintain euglycemia. Procedure: Central line placement. Indication: Venous Access Consent: verbal. Risks of bleeding, infection, and pneumothorax were explained. A time out was completed. Maximal sterile barrier technique was used including cap, gown, sterile gloves, large sheet, hand washing and chlorhexidine prep. Anesthesia: The area anesthetized with 1% lidocaine. Procedure: The right femoral vein was punctured with a 19 gauge finder needle, then a wire introducer was placed, a 7 Chinese triple lumen catheter was placed using Seldinger technique. There were no complications. Blood return was low pressure and non-pulsatile dark blood. Line secured in place with suture, and a sterile bio-occlusive dressing was applied. Patient tolerated procedure well. The procedure was performed by Krishna Guillaume DO The patient and/or family, caregivers express understanding. The patient and/orfamily, caregivers agrees with the plan. Shared decision making: I will have a discussion with the patient and or visitors regarding risk/benefits of further testing or admission. They will be made aware of of the risk/benefits inherent in this decision they will be given the opportunity to voice understanding. Total critical care time today provided was at least 60 minutes. This excludes separately billable procedures. Critical care time (if documented) is secondary to the patient having high probability of clinically significant/life threatening deterioration in the patient's condition which required my urgent intervention. Impression: 1. Septic shock 2. A-fib with RVR 3. Postobstructive pneumonia 4. Lung cancer 5. Pleural effusion 6. COVID-19 Dispo: Admit to ICU This note was generated with [employer]ickybits dictation software. It may contain incorrectwords, spelling, and punctuation that were not noted in review of the chart prior to signing. Lab Data Labs: Laboratory Results - last 24 hr 03/09/25 03/09/25 03/09/25 15:03 15:20 17:25 WBC 14.7 H RBC 3.96 L Hgb 10.7 L Hct 33.8 L MCV 85.4 MCH 27.0 MCHC 31.7 L RDW Std Deviation 49.4 H RDW Coeff of Hai 15.8 H Plt Count 552 H MPV 9.9 Immature Gran % (Auto) [employer] Neut % (Auto) [employer] Lymph % (Auto) [employer] Callahan % (Auto) [employer] Eos % (Auto) [employer] Baso % (Auto) [employer] Absolute Neuts (auto) 11.9 H Absolute Lymphs (auto) 0.59 L Total Counted 100 Neutrophils % (Manual) 78 H Band Neutrophils % 3 Lymphocytes % (Manual) 4 L Monocytes % (Manual) 7 Metamyelocytes % 3 H Myelocytes % 5 H Nucleated RBC % [employer] Platelet Estimate MOD INC PT 16.6 H INR 1.3 APTT 39.7 H Sodium 131 L Potassium 4.6 Chloride 90 L Carbon Dioxide 25.4 Anion Gap 15 BUN 23 H Creatinine 0.97 Estim Creat Clear Calc 66.38 Est GFR (MDRD) Non-Af 84 BUN/Creatinine Ratio 23.9 H Glucose 107 H Lactic Acid 2.8 H* Calcium 9.3 Total Bilirubin 0.73 AST 48 H ALT 22 Alkaline Phosphatase 163 H Troponin T High Sens 48 H D Troponin T Hi Sens 2 Hr 42 H Troponin T Hi Sens 4Hr NT pro BNP II 2417 H Total Protein 6.8 Albumin 2.9 L Globulin 3.9 Albumin/Globulin Ratio 0.7 L 03/09/25 19:36 WBC RBC Hgb Hct MCV MCH MCHC RDW Std Deviation RDW Coeff of Hai Plt Count MPV Immature Gran % (Auto) Neut % (Auto) Lymph % (Auto) Callahan % (Auto) Eos % (Auto) Baso % (Auto) Absolute Neuts (auto) Absolute Lymphs (auto) Total Counted Neutrophils % (Manual) Band Neutrophils % Lymphocytes % (Manual) Monocytes % (Manual) Metamyelocytes % Myelocytes % Nucleated RBC % Platelet Estimate PT INR APTT Sodium Potassium Chloride Carbon Dioxide Anion Gap BUN Creatinine Estim Creat Clear Calc Est GFR (MDRD) Non-Af BUN/Creatinine Ratio Glucose Lactic Acid Calcium Total Bilirubin AST ALT Alkaline Phosphatase Troponin T High Sens Troponin T Hi Sens 2 Hr Troponin T Hi Sens 4Hr 38 H NT pro BNP II Total Protein Albumin Globulin Albumin/Globulin Ratio ABG Data ABG results: ABG 03/09/25 15:24 Specimen Type WILDA Sample Site Not entered VBG pH 7.49 H VBG pO2 27 VBG HCO3 30 H VBG Total CO2 31 VBG O2 Sat (Calc) 57 VBG Base Excess 7 H POC Mix VBG pCO2 Pt Tmp 39.2 L O2 Delivery Device Not entered Radiography Diagnostic Testing: Clinical Impression(s) from Imaging Studies Chest X-Ray 03/09/25 15:45 IMPRESSION: Interval progression of pulmonary malignancy with near-complete opacification ofleft hemithorax with underlying left upper lobe/perihilar mass lesion as previously described, likely with postobstructive atelectasis and/or pneumonia, and coexisting pleural effusion. Increased conspicuity of numerous nodular cannonball metastases throughout the right lung. Reading Location: [facility] Chest CTA 03/09/25 16:36 IMPRESSION: No acute findings; no pulmonary arterial emboli identified. Advanced pulmonary malignancy with widespread metastatic lymphadenopathy and associated findings as described above. No significant interval change from 03/01/2025. Reading Location: [facility] Discharge Plan Triage Chief Complaint: Shortness of Breath ED Provider: Krishna Guillaume Dx/Rx/DC Orders [facility] Care Provider: [facility] What to do if you have Problems For any increased pain, shortness of breath, bleeding, nausea or vomiting, chestpain, or any unexpected problems, contact your Primary Care Provider. Call [facility] ([phone]) or report to the closest Emergency Room. Call 911 if necessary. 03/09/252055 <Electronically signed by Krishna Guillaume DO> Cosigner Signature (if applicable): CC: [facility] ~ Signed [facility] Work Phone: [phone]) 159-947709-08-2025 Consult note Author Jaren Gilliam [facility] Note Date/Time March 08, 2025 4:34pm [facility] Medical Records Department [address] [place] [address] Counseling Note - Pharmacy 03/08/25 1632 MR#: [id number] Acct: [id number] Name: EMETERIO CHENEY Rep #:[id number] : 1955 69 From: Jaren Gilliam PCP: [facility] Status:ADM IN Y [facility] Counseling Pharmacy Service has performed discharge medication reconciliation and counseling for this patient. The patient's discharge medication list was reviewed for discrepancies and discrepancies were resolved. The patient was counseled on the following discharge medications and changes in medications for homegoing were reviewed. The Reason for Use, instructions for use, and potential side effects were reviewed for all new medications. The patient's questions regarding all of their medications were answered. 1. Furosemide 40 mg PO daily 2. Guaifenesin 1200 mg PO BID 3. Senna-S 2 tablets PO BID 4. Potassium chloride 20 mEq PO BID with meals 5. Apixaban 5 mg PO BID 6. Metoprolol succinate 50 mg PO Daily 7. Diltiazem 120 mg PO BID The patient was able to verbally demonstrate an understanding of their dischargemedications. Medications at Discharge Home Medications dexamethasone 4 mg tablet 4 mg PO DAILY unknown 03/02/25 empagliflozin 25 mg tablet (Jardiance) 12.5 mg PO DAILY unknown 03/02/25 ondansetron 8 mg disintegrating tablet 8 mg PO Q8H nausea 03/02/25 oxycodone 5 mg capsule 5 mg PO Q4H pain 03/02/25 furosemide 40 mg tablet 40 mg PO DAILY #30 tabs 03/05/25 guaifenesin 1,200 mg tablet, extended release 12 hr (Mucus Relief ER) 1,200 mg PO BID #60 tabs 03/05/25 potassium chloride 20 mEq tablet,extended release(part/cryst) 20 meq PO BIDCM #60 tabs 03/05/25 sennosides 8.6 mg-docusate sodium 50 mg tablet (Stimulant Laxative Plus) 2 tab PO BID #60 tabs 03/05/25 apixaban 5 mg tablet (Eliquis) 5 mg PO BID #60 tabs 03/08/25 diltiazem HCl 120 mg capsule,extended release 24 hr 120 mg PO BID #60 caps 03/08/25 metoprolol succinate 50 mg tablet,extended release 24 hr 50 mg PO DAILY #30 tabs03/08/25 03/08/25 1634 <Electronically signed by Jaren peters> Date _ Jaren De La Rosa Signature (if applicable): Date CC: ~ Signed [facility] Work Phone: [phone]) 994-759109-08-2025 Discharge summary Author Pj Roper [facility] Note Date/Time March 08, 2025 3:19pm [facility] Medical Records Department [address] [place] [address] Discharge Summary 03/08/25 1514 MR#: [id number] Acct: [id number] Name: EMETERIO CHENEY Rep #:[id number] : 1955 69 From: Pj Roper DO PCP: [facility] Status:ADM IN Location: [facility] [id number] Providers Date of Admission: 03/01/25 [facility] Consultations 03/02/25 13:45 Consult: Inpatient Palliative Care Routine Consulting Provider: Leeann Miller Reason for Consult: Follows w/palliative at the [facility] Consult: No MD Notified: Yes Date Notified: 03/02/25 Time Notified: 13:45 Method of Notification: Text Method of Consult:: In-Person 03/03/25 16:11 Consult: Hospice / Outpatient Palliative Care Routine Consulting Provider: [facility] Reason for Consult: metastatic lung cancer EMERGENT Consult: Yes MD Notified: Yes Date Notified: 03/03/25 Time Notified: 16:11 Method of Notification: Text Reason For Visit: POSTOBSTRUCTIVE PNEUMONIA, FLUID OVERLOAD Diagnosis Discharge Diagnosis (1) Obstructive pneumonia: Status: Acute Code(s): J18.9 - Pneumonia, unspecified organism (2) Pleural effusion: Status: Acute Code(s): J90 - Pleural effusion, not elsewhere classified (3) Metastatic cancer to lung: Status: Acute Code(s): C78.00 - Secondary malignant neoplasm of unspecified lung Plan Acute hypoxia ? CT demonstrated mild increase in the size of the left upper lobe/left hilar mass. Increased left pleural effusion. Increased left basilar atelectasis/consolidation. Increased cavitation in the left lower lobe. Unchanged mediastinal and hilar lymphadenopathy. Mild increase in the size and number of multiple pulmonary nodules with the largest measuring 16 mm. Placed on supplemental oxygen with treatment of the underlying clinical etiology ? 03/04/2025; patient remains on supplemental oxygen plan is for patient to be assessed for home oxygen prior to being discharged ? 03/05/2025Patient has a plan is for patient to be discharged to dependent his [facility] oxygen [facility] ? 03/07/2025; patient oxygen was apparently delivered to the wrong address did explain to patient is best to wait till Saturday for case management to sort this out -03/08: oxygen to be sent to his significant other's home, where he'll be staying. Postobstructive pneumonia ?on amp/SB since the , changed to amox/CA. Completed 7-day course of abx. Acute congestive heart failure with decreased ejection fraction ? 2D echo obtained demonstrated moderate global left ventricular systolic dysfunction with EF of 35%. On furosemide. tachycardia?A-fib flutter with rapid ventricular response ? EKG reviewed and demonstrates presence of A-fib flutter? New diagnosis. Patient did receive Cardizem. Also metoprolol continued. Patient started on systemic anticoagulation with apixaban 2D echo from 03/01/2025 did show moderate global left ventricular systolic dysfunction. The left ventricular ejection fraction is 35 %. Stage 1 diastolic dysfunction.Mild (1+) tricuspid valve insufficiency. Plan is to continue to monitor on telemetry and if patient does not respond to initial management patient be started on a Cardizem drip ? 03/07/2025; patient was started on Cardizem during the night. Plan is to wean off and start patient on p.o. Cardizem 03/08: on diltiazem 120 BID, metoprolol succinate 50/d, apixaban 5 BID. Metastatic lung CA ? Patient has apparently failed immunotherapy. Care is at the [facility] patient is [facility] to be transferred [facility] did explain to patient the best option would be for patient to be discharged after being assessed for home oxygen and then he can follow-up Hyponatremia ? 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 Patient was seen in consultation by dietary recommendations reviewed DVT prophylaxis? Patient started on Lovenox CODE STATUS DNR CCA no intubation ? Consult was also placed to the palliative care team to discuss goals of care next 03/04/2025 patient seen much more cooperative compared to previously. Patient is scheduled to have a meeting with hospice service this afternoon. Decision regarding discharge made after the meeting ? 03/05/2025; patient declined hospice decision was made to discharge patient homewith plans for patient to follow-up with the palliative care team at the [facility] 03/08: pt to follow up with palliative care as oupt. Medications at Discharge Home Medications dexamethasone 4 mg tablet 4 mg PO DAILY unknown 03/02/25 empagliflozin 25 mg tablet (Jardiance) 12.5 mg PO DAILY unknown 03/02/25 metoprolol succinate 25 mg tablet,extended release 24 hr (Toprol XL) 25 mg PO DAILY unknown 03/02/25 ondansetron 8 mg disintegrating tablet 8 mg PO Q8H nausea 03/02/25 oxycodone 5 mg capsule 5 mg PO Q4H pain 03/02/25 furosemide 40 mg tablet 40 mg PO DAILY #30 tabs 03/05/25 guaifenesin 1,200 mg tablet, extended release 12 hr (Mucus Relief ER) 1,200 mg PO BID #60 tabs 03/05/25 potassium chloride 20 mEq tablet,extended release(part/cryst) 20 meq PO BIDCM #60 tabs 03/05/25 sennosides 8.6 mg-docusate sodium 50 mg tablet (Stimulant Laxative Plus) 2 tab PO BID #60 tabs 03/05/25 apixaban 5 mg tablet (Eliquis) 5 mg PO BID #60 tabs 03/08/25 diltiazem HCl 120 mg capsule,extended release 24 hr 120 mg PO BID #60 caps 03/08/25 metoprolol succinate 50 mg tablet,extended release 24 hr 50 mg PO DAILY #30 tabs03/08/25 Hospital Course Operations None Procedures None Summary of Care Provided Minutes Spent on Discharge: 35 Medical Records Data Medical Nutrition Assessment Dietitian: Malnutrition Criteria Met Start: 03/02/25 08:20 Freq: Status: Active Protocol: Document 03/08/25 14:46 SB (Rec: 03/08/25 14:46 SB [id number]) Nutrition Malnutrition Evidence of Yes Malnutrition Exists Malnutrition (severe Chronic ): Evidenced By Suboptimal Energy Intake (Severe),Weight Loss (Severe), Physical Changes (Severe) Clinical Problem Chronic Disease or Condition Related Malnutrition Etiology Severe protein-calorie malnutrition in the context of chronic disease related to inadequate energy/oral intake and increased energy expenditure Signs/Symptoms as evidenced by ~15% unintentional body weight lossx 2 months; PO meeting less than 50% estimated nutrition needs x past 1 month; BMI 20.2; muscle wasting/fat depletion in the clavicle, face, arms and legs Status Active Problem Recommendation Dietitian Continue regular diet. Recommendations/ Will discontinue magic cup and ensure plus high protein Changes due to pt disliking/refusing them. Recommend pt meet with oncology dietitian at the [facility] manage weight loss and malnutrition. Homelessness:: Sheltered Weight / BMI Weight Weight: 63.8 kg Body Mass Index (BMI) 20.2 ABG / Lab / Microbiology Data 03/08/25 04:35 03/08/25 04:35 Laboratory: Laboratory Results - last 24 hr 03/08/25 04:35: WBC 12.6 H, RBC 3.65 L, Hgb 9.7 L, Hct 30.7 L, MCV 84.1, MCH 26.6 L, MCHC 31.6 L, RDW Std Deviation 48.0 H, RDW Coeff of Hai 15.8 H, Plt Count 455 H, MPV 9.8, Neut % (Auto) Not Reportable, Absolute Neuts (auto) 10.2 H, Absolute Lymphs (auto) 0.76 L, Total Counted 100, Neutrophils % (Manual) 80 H,Band Neutrophils % 1, Lymphocytes % (Manual) 6 L, Monocytes % (Manual) 8, Metamyelocytes % 4 H, Myelocytes % 1 H, Platelet Estimate SLT INC, Polychromasia 1+, Sodium 132 L, Potassium 4.2, Chloride 91 L, Carbon Dioxide 26.2, Anion Gap 14, BUN 25 H, Creatinine 0.92, Estim Creat Clear Calc 68.38, Est GFR (MDRD) Non-Af 90, BUN/Creatinine Ratio 27.6 H, Glucose 102 H, Calcium 8.9, Phosphorus 3.5, Magnesium 1.8 Microbiology: Microbiology 03/01/25 05:57 Blood Culture (Wb) - Right Wrist Blood Culture - Final No growth in 5 days. 03/01/25 05:40 Blood Culture (Wb) - Right Wrist Blood Culture - Final No growth in 5 days. 03/01/25 21:02 Mucosa - Nasopharyngeal Respiratory Panel (PCR) - Final 03/01/25 21:48 Urine, Clean Catch Streptococcus pneumoniae Antigen (M - Final 03/01/25 21:48 Urine, Clean Catch Legionella Antigen - Final D/C Instructions Call your doctor if you observe: Fever of 101 or Higher, Shortness of breath, Fainting spells and Chest pain DC O2, CPAP, BIPAP Needs Home O2 Discharge instructions: Yes Type of respiratory needs?: Oxygen (2) Oxygen frequency: Continuous (2) Continuous oxygen liters per minute: 2 DC home with Oxygen: Yes Home O2 MD Review: I have reviewed the oxygen testing, and the patient qualifies for home oxygen equipment and portability. The patient is mobile in the home and the community. Meaningful Use Info Meaningful Use Meaningful Use Diagnoses (Choose all that apply): None applicable Discharge Plan Admission Admit Date/Time: 03/01/25 18:58 Primary Reason for Your Visit: pneumonia Attending Provider: Pj Roper Primary Care Provider: [facility] Consulting Providers: Kavita Myles; Leeann Miller; Javid Loera; Zackery Myrick; Umu Rodrigez; Jade Chavarria; Consuelo Lopez; Eva Murry; Juana Krause; Zackery Soares Discharge Orders/Prescriptions Prescriptions: New sennosides-docusate sodium [Stimulant Laxative Plus] 8.6-50 mg Tablet 2 tab PO BID Qty: 60 0RF potassium chloride 20 mEq Tablet,Er Particles/Crystals 20 meq PO BIDCM Qty: 60 0RF guaifenesin [Mucus Relief ER] 1,200 mg Tablet Extended Release 12hr 1,200 mg PO BID Qty: 60 0RF furosemide 40 mg Tablet 40 mg PO DAILY Qty: 30 0RF metoprolol succinate 50 mg Tablet Extended Release 24 Hr 50 mg PO DAILY Qty: 30 0RF diltiazem HCl 120 mg Capsule,Extended Release 24hr 120 mg PO BID Qty: 60 0RF Eliquis 5 mg Tablet 5 mg PO BID Qty: 60 0RF Continued oxycodone 5 mg capsule 5 mg PO Q4H Rx Instructions: take 1-2 tabs as needed for pain ondansetron 8 mg tablet,disintegrating 8 mg PO Q8H Jardiance 25 mg tablet 12.5 mg PO DAILY metoprolol succinate [Toprol XL] 25 mg tablet extended release 24 hr 25 mg PO DAILY dexamethasone 4 mg tablet 4 mg PO DAILY Referrals [facility] - Within 1 Week Disposition Disposition (needs filled in before D/C Order can be placed): Home, Self Care Charges/Coding Visit Charges Inpatient E&M: 78554 Disch Hosp >30min 03/08/25 1519 <Electronically signed by Pj Roper DO> Cosigner Signature (if applicable): CC: Dr. Pj Roper DO; [facility]~ Signed [facility] Work Phone: 1(146) 447-965409-08-2025 Progress note Author Pj Roper [facility] Note Date/Time March 08, 2025 3:14pm [facility] Medical Records Department [address] [place] [address] Progress Note - Hospitalist 03/08/25 0933 MR#: [id number] Acct: [id number] Name: EMETERIO CHENEY Rep #:[id number] : 1955 69 From: Pj Roper DO [facility] Status:ADM IN Location: [place] [id number] Reason for Visit Chief Complaint: Shortness of breath Subjective Subjective Feeling well. Anxious to go home. Objective Data Objective Data Vital Signs: Vital Signs Temp Pulse Resp BP Pulse Ox O2 Del Method O2 Flow Rate 36.4 C L 91 20 H 104/76 93 Nasal Cannula 2 03/08/25 03:15 03/08/25 06:40 03/08/25 06:40 03/08/25 03:15 03/08/25 06:40 03/08/25 08:23 03/08/25 08:23 Oxygen Flow Rate (L/min) 2 Oxygen Delivery Method Nasal Cannula Weight: 63.8 kg Body Mass Index (BMI) 20.2 Intake & Output: Intake and Output for Last 24 Hours 03/06/25 03/07/25 03/08/25 23:59 23:59 23:59 Intake Total 1475 / 1595 1767.67 / 1987.67 320 / 320 Output Total 2100 / 2100 1550 / 1750 350 / 350 Balance -625 / -505 217.67 / 237.67 -30 / -30 Medical Nutrition Assessment Dietitian: Malnutrition Criteria Met Start: 03/02/25 08:20 Freq: Status: Active Protocol: Document 03/02/25 16:19 RMA (Rec: 03/02/25 16:19 RMA [id number]) Nutrition Malnutrition Evidence of Yes Malnutrition Exists Malnutrition (severe Chronic ): Evidenced By Suboptimal Energy Intake (Severe),Weight Loss (Severe), Physical Changes (Severe) Clinical Problem Chronic Disease or Condition Related Malnutrition Etiology Severe protein-calorie malnutrition in the context of chronic disease related to inadequate energy/oral intake and increased energy expenditure Signs/Symptoms as evidenced by ~15% unintentional body weight lossx 2 months; PO meeting less than 50% estimated nutrition needs x past 1 month; BMI 20.2; muscle wasting/fat depletion in the clavicle, face, arms and legs Status Active Problem Recommendation Dietitian Will liberalize diet to Regular. Recommendations/ Will add magic cup with lunch. Changes Will add 240mL ensure plus HP w/ breakfast and dinner tray. Additional ONS as needed. Lab / Micro Data 03/08/25 04:35 03/08/25 04:35 Labs: Laboratory Results - last 24 hr 03/08/25 04:35: WBC 12.6 H, RBC 3.65 L, Hgb 9.7 L, Hct 30.7 L, MCV 84.1, MCH 26.6 L, MCHC 31.6 L, RDW Std Deviation 48.0 H, RDW Coeff of Hai 15.8 H, Plt Count 455 H, MPV 9.8, Neut % (Auto) Not Reportable, Absolute Neuts (auto) 10.2 H, Absolute Lymphs (auto) 0.76 L, Total Counted 100, Neutrophils % (Manual) 80 H,Band Neutrophils % 1, Lymphocytes % (Manual) 6 L, Monocytes % (Manual) 8, Metamyelocytes % 4 H, Myelocytes % 1 H, Platelet Estimate SLT INC, Polychromasia 1+, Sodium 132 L, Potassium 4.2, Chloride 91 L, Carbon Dioxide 26.2, Anion Gap 14, BUN 25 H, Creatinine 0.92, Estim Creat Clear Calc 68.38, Est GFR (MDRD) Non-Af 90, BUN/Creatinine Ratio 27.6 H, Glucose 102 H, Calcium 8.9, Phosphorus 3.5, Magnesium 1.8 Micro: Microbiology 03/01/25 05:57 Blood Culture (Wb) - Right Wrist Blood Culture - Final No growth in 5 days. 03/01/25 05:40 Blood Culture (Wb) - Right Wrist Blood Culture - Final No growth in 5 days. 03/01/25 21:02 Mucosa - Nasopharyngeal Respiratory Panel (PCR) - Final 03/01/25 21:48 Urine, Clean Catch Streptococcus pneumoniae Antigen (M - Final 03/01/25 21:48 Urine, Clean Catch Legionella Antigen - Final Rhythm Strip Rhythm Strip: Sinus Tach Rate: 109 Ectopy: PVC(s) and - (short run of SVT) Social Homelessness:: Sheltered Physical Exam Const alert and no apparent distress Constitutional Narrative: lying in bed. thin. afebrile. Resp normal respiratory effort, no retractions, no use of accessory muscles and clearto auscultation bilaterally Cardio regular rate, regular rhythm, S1 normal heart sound and S2 normal heart sound GI normal to inspection, nondistended, normoactive bowel sounds, soft to palpation,non-tender and non-distended Extremity normal to inspection and full ROM Psych affect normal Assessment & Plan Assessment/Plan (1) Obstructive pneumonia: (2) Pleural effusion: (3) Metastatic cancer to lung: PLAN: Plan Acute hypoxia ? CT demonstrated mild increase in the size of the left upper lobe/left hilar mass. Increased left pleural effusion. Increased left basilar atelectasis/consolidation. Increased cavitation in the left lower lobe. Unchanged mediastinal and hilar lymphadenopathy. Mild increase in the size and number of multiple pulmonary nodules with the largest measuring 16 mm. Placed on supplemental oxygen with treatment of the underlying clinical etiology ? 03/04/2025; patient remains on supplemental oxygen plan is for patient to be assessed for home oxygen prior to being discharged ? 03/05/2025Patient has a plan is for patient to be discharged to dependent his home oxygen being set up and approved [facility] ? 03/07/2025; patient oxygen was apparently delivered to the wrong address did explain to patient is best to wait till Saturday for case management to sort this out -03/08: oxygen to be sent to his significant other's home, where he'll be staying. Postobstructive pneumonia ?on amp/SB since the , changed to amox/CA. Completed 7-day course of abx. Acute congestive heart failure with decreased ejection fraction ? 2D echo obtained demonstrated moderate global left ventricular systolic dysfunction with EF of 35%. On furosemide. tachycardia?A-fib flutter with rapid ventricular response ? EKG reviewed and demonstrates presence of A-fib flutter? New diagnosis. Patient did receive Cardizem. Also metoprolol continued. Patient started on systemic anticoagulation with apixaban 2D echo from 03/01/2025 did show moderate global left ventricular systolic dysfunction. The left ventricular ejection fraction is 35 %. Stage 1 diastolic dysfunction.Mild (1+) tricuspid valve insufficiency. Plan is to continue to monitor on telemetry and if patient does not respond to initial management patient be started on a Cardizem drip ? 03/07/2025; patient was started on Cardizem during the night. Plan is to wean off and start patient on p.o. Cardizem Metastatic lung CA ? Patient has apparently failed immunotherapy. [facility] patient is [facility] to be transferred [facility] the [facility] did explain to patient the best option would be for patient to be discharged after being assessed for home oxygen and then he can follow-up Hyponatremia ? 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 Patient was seen in consultation by dietary recommendations reviewed DVT prophylaxis? Patient started on Lovenox CODE STATUS DNR CCA no intubation ? Consult was also placed to the palliative care team to discuss goals of care next 03/04/2025 patient seen much more cooperative compared to previously. Patient is scheduled to have a meeting with hospice service this afternoon. Decision regarding discharge made after the meeting ? 03/05/2025; patient declined hospice decision was made to discharge patient homewith plans for patient to follow-up with the palliative care team at the [facility] 03/08: pt to follow up with palliative care as oupt. 03/08/25 1514 <Electronically signed by Pj Roper DO> Cosigner Signature (if applicable): CC: ~ Signed [facility] Work Phone: [phone]) 349-130909-08-2025 Consult note [facility] Medical Records Department [address] [place] [address] Counseling Note - Pharmacy 03/08/25 1632 MR#: [id number] Acct: [id number] Name: EMETERIO CHENEY Rep #:[id number] : 1955 69 From: Jaren Gilliam PCP: [facility] Status:ADM IN Y Location: [facility] [id number] Pharmacy [facility] Counseling Pharmacy Service has performed discharge medication reconciliation and counseling for this patient. The patient's discharge medication list was reviewed for discrepancies and discrepancies were resolved. The patient was counseled on the following discharge medications and changes in medications for homegoing were reviewed. The Reason for Use, instructions for use, and potential side effects were reviewed for all new medications. The patient's questions regarding all of their medications were answered. 1. Furosemide 40 mg PO daily 2. Guaifenesin 1200 mg PO BID 3. Senna-S 2 tablets PO BID 4. Potassium chloride 20 mEq PO BID with meals 5. Apixaban 5 mg PO BID 6. Metoprolol succinate 50 mg PO Daily 7. Diltiazem 120 mg PO BID The patient was able to verbally demonstrate an understanding of their dischargemedications. Medications at Discharge Home Medications dexamethasone 4 mg tablet 4 mg PO DAILY unknown 03/02/25 empagliflozin 25 mg tablet (Jardiance) 12.5 mg PO DAILY unknown 03/02/25 ondansetron 8 mg disintegrating tablet 8 mg PO Q8H nausea 03/02/25 oxycodone 5 mg capsule 5 mg PO Q4H pain 03/02/25 furosemide 40 mg tablet 40 mg PO DAILY #30 tabs 03/05/25 guaifenesin 1,200 mg tablet, extended release 12 hr (Mucus Relief ER) 1,200 mg PO BID #60 tabs 03/05/25 potassium chloride 20 mEq tablet,extended release(part/cryst) 20 meq PO BIDCM #60 tabs 03/05/25 sennosides 8.6 mg-docusate sodium 50 mg tablet (Stimulant Laxative Plus) 2 tab PO BID #60 tabs 03/05/25 apixaban 5 mg tablet (Eliquis) 5 mg PO BID #60 tabs 03/08/25 diltiazem HCl 120 mg capsule,extended release 24 hr 120 mg PO BID #60 caps 03/08/25 metoprolol succinate 50 mg tablet,extended release 24 hr 50 mg PO DAILY #30 tabs03/08/25 03/08/25 1634 r> Date _ Jaren De La Rosa Signature (if applicable): Date CC: ~ Signed [facility]09-08-2025 Discharge summary [facility] Medical Records Department [address] [place] [address] Discharge Summary 03/08/25 1514 MR#: [id number] Acct: [id number] Name: EMETERIO CHENEY Rep #:[id number] : 1955 69 From: Pj Roper DO [facility] Status:ADM IN Location: [facility] [id number] Providers Date of Admission: 03/01/25 Primary [facility] Physician: [facility] Consultations 03/02/25 13:45 Consult: Inpatient Palliative Care Routine Consulting Provider: Leeann Miller Reason for Consult: Follows w/palliative at the [facility] Consult: No MD Notified: Yes Date Notified: 03/02/25 Time Notified: 13:45 Method of Notification: Text Method of Consult:: In-Person 03/03/25 16:11 Consult: Hospice / Outpatient Palliative Care Routine Consulting Provider: [facility] Reason for Consult: metastatic lung cancer EMERGENT Consult: Yes MD Notified: Yes Date Notified: 03/03/25 Time Notified: 16:11 Method of Notification: Text Reason For Visit: POSTOBSTRUCTIVE PNEUMONIA, FLUID OVERLOAD Diagnosis Discharge Diagnosis (1) Obstructive pneumonia: Status: Acute Code(s): J18.9 - Pneumonia, unspecified organism (2) Pleural effusion: Status: Acute Code(s): J90 - Pleural effusion, not elsewhere classified (3) Metastatic cancer to lung: Status: Acute Code(s): C78.00 - Secondary malignant neoplasm of unspecified lung Plan Acute hypoxia ? CT demonstrated mild increase in the size of the left upper lobe/left hilar mass. Increased left pleural effusion. Increased left basilar atelectasis/consolidation. Increased cavitation in the leftlower lobe. Unchanged mediastinal and hilar lymphadenopathy. Mild increase in the size and number of multiple pulmonary nodules with the largest measuring 16 mm. Placed on supplemental oxygen with treatment of the underlying clinical etiology ? 03/04/2025; patient remains on supplemental oxygen plan is for patient to be assessed for home oxygen prior to being discharged ? 03/05/2025Patient has a plan is for patient to be discharged to dependent his home oxygen being setup and approved by the [facility] ? 03/07/2025; patient oxygen was apparently delivered to the wrong address did explain to patient is best to wait till Saturday for case management to sort this out -03/08: oxygen to be sent to his significant other's home, where he'll be staying. Postobstructive pneumonia ?on amp/SB since the , changed to amox/CA. Completed 7-day course of abx. Acute congestive heart failure with decreased ejection fraction ? 2D echo obtained demonstrated moderate global left ventricular systolic dysfunction with EF of 35%. On furosemide. tachycardia?A-fib flutter with rapid ventricular response ? EKG reviewed and demonstrates presence of A-fib flutter? New diagnosis. Patient did receive Cardizem. Also metoprolol continued. Patient started on systemic anticoagulation with apixaban 2D echo from 03/01/2025 did show moderate global left ventricular systolic dysfunction. The left ventricular ejection fraction is 35 %. Stage 1 diastolic dysfunction.Mild (1+) tricuspid valve insufficiency. Plan is to continue to monitor on telemetry and if patient does not respond to initial management patientbe started on a Cardizem drip ? 03/07/2025; patient was started on Cardizem during the night. Plan is to wean off and start patienton p.o. Cardizem 03/08: on diltiazem 120 BID, metoprolol succinate 50/d, apixaban 5 BID. Metastatic lung CA ? Patient has apparently failed immunotherapy. Care is at the [facility] patient is requesting to be transferred to the [facility] explain to patient the best option would be for patient to be discharged after being assessed for home oxygen and then he can follow-up Hyponatremia ? 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 Patient was seen in consultation by dietary recommendations reviewed DVT prophylaxis? Patient started on Lovenox CODE STATUS DNR CCA no intubation ? Consult was also placed to the palliative care team to discuss goals of care next 03/04/2025 patient seen much more cooperative compared to previously. Patient is scheduled to have a meeting with hospice service this afternoon. Decision regarding discharge made after the meeting ? 03/05/2025; patient declined hospice decision was made to discharge patient homewith plans for patient to follow-up with the palliative care team at the [facility] 03/08: pt to follow up with palliative care as oupt. Medications at Discharge Home Medications dexamethasone 4 mg tablet 4 mg PO DAILY unknown 03/02/25 empagliflozin 25 mg tablet (Jardiance) 12.5 mg PO DAILY unknown 03/02/25 metoprolol succinate 25 mg tablet,extended release 24 hr (Toprol XL) 25 mg PO DAILY unknown 03/02/25 ondansetron 8 mg disintegrating tablet 8 mg PO Q8H nausea 03/02/25 oxycodone 5 mg capsule 5 mg PO Q4H pain 03/02/25 furosemide 40 mg tablet 40 mg PO DAILY #30 tabs 03/05/25 guaifenesin 1,200 mg tablet, extended release 12 hr (Mucus Relief ER) 1,200 mg PO BID #60 tabs 03/05/25 potassium chloride 20 mEq tablet,extended release(part/cryst) 20 meq PO BIDCM #60 tabs 03/05/25 sennosides 8.6 mg-docusate sodium 50 mg tablet (Stimulant Laxative Plus) 2 tab PO BID #60 tabs 03/05/25 apixaban 5 mg tablet (Eliquis) 5 mg PO BID #60 tabs 03/08/25 diltiazem HCl 120 mg capsule,extended release 24 hr 120 mg PO BID #60 caps 03/08/25 metoprolol succinate 50 mg tablet,extended release 24 hr 50 mg PO DAILY #30 tabs03/08/25 Hospital Course Operations None Procedures None Summary of Care Provided Minutes Spent on Discharge: 35 Medical Records Data Medical Nutrition Assessment Dietitian: Malnutrition Criteria Met Start: 03/02/25 08:20 Freq: Status: Active Protocol: Document 03/08/25 14:46 SB (Rec: 03/08/25 14:46 SB [id number]) Nutrition Malnutrition Evidence of Yes Malnutrition Exists Malnutrition (severe Chronic ): Evidenced By Suboptimal Energy Intake (Severe),Weight Loss (Severe), Physical Changes (Severe) Clinical Problem Chronic Disease or Condition Related Malnutrition Etiology Severe protein-calorie malnutrition in the context of chronic disease related to inadequate energy/oral intake and increased energy expenditure Signs/Symptoms as evidenced by ~15% unintentional body weight lossx 2 months; PO meeting less than 50% estimated nutrition needs x past 1 month; BMI 20.2; muscle wasting/fat depletion in the clavicle, face, arms and legs Status Active Problem Recommendation Dietitian Continue regular diet. Recommendations/ Will discontinue magic cup and ensure plus high protein Changes due to pt disliking/refusing them. Recommend pt meet with oncology dietitian at the [facility] manage weight loss and malnutrition. Homelessness:: Sheltered Weight / BMI Weight Weight: 63.8 kg Body Mass Index (BMI) 20.2 ABG / Lab / Microbiology Data 03/08/25 04:35 03/08/25 04:35 Laboratory: Laboratory Results - last 24 hr 03/08/25 04:35: WBC 12.6 H, RBC 3.65 L, Hgb 9.7 L, Hct 30.7 L, MCV 84.1, MCH 26.6 L, MCHC 31.6 L, RDW Std Deviation 48.0 H, RDW Coeff of Hai 15.8 H, Plt Count 455 H, MPV 9.8, Neut % (Auto) Not Reportable, Absolute Neuts (auto) 10.2 H, Absolute Lymphs (auto) 0.76 L, Total Counted 100, Neutrophils % (Manual) 80 H,Band Neutrophils % 1, Lymphocytes % (Manual) 6 L, Monocytes % (Manual) 8, Metamyelocytes % 4 H, Myelocytes % 1 H, Platelet Estimate SLT INC, Polychromasia 1+, Sodium 132 L, Potassium 4.2, Chloride 91 L, Carbon Dioxide 26.2, Anion Gap 14, BUN 25 H, Creatinine 0.92, Estim Creat Clear Calc 68.38, Est GFR (MDRD) Non- Af 90, BUN/Creatinine Ratio 27.6 H, Glucose 102 H, Calcium 8.9, Phosphorus 3.5, Magnesium 1.8 Microbiology: Microbiology 03/01/25 05:57 Blood Culture (Wb) - Right Wrist Blood Culture - Final No growth in 5 days. 03/01/25 05:40 Blood Culture (Wb) - Right Wrist Blood Culture - Final No growth in 5 days. 03/01/25 21:02 Mucosa - Nasopharyngeal Respiratory Panel (PCR) - Final 03/01/25 21:48 Urine, Clean Catch Streptococcus pneumoniae Antigen (M - Final 03/01/25 21:48 Urine, Clean Catch Legionella Antigen - Final D/C Instructions Call your doctor if you observe: Fever of 101 or Higher, Shortness of breath, Fainting spells and Chest pain DC O2, CPAP, BIPAP Needs Home O2 Discharge instructions: Yes Type of respiratory needs?: Oxygen (2) Oxygen frequency: Continuous (2) Continuous oxygen liters per minute: 2 DC home with Oxygen: Yes Home O2 MD Review: I have reviewed the oxygen testing, and the patient qualifies for home oxygen equipment and portability. The patient is mobile in the home and the community. Meaningful Use Info Meaningful Use Meaningful Use Diagnoses (Choose all that apply): None applicable Discharge Plan Admission Admit Date/Time: 03/01/25 18:58 Primary Reason for Your Visit: pneumonia Attending Provider: Pj Roper Primary Care Provider: [facility] Consulting Providers: Kavita Myles; Leeann Miller; Javid Loera; Zackery Myrick; Umu Rodrigez; Jade Chavarria; Consuelo Lopez; Eva Murry; Juana Krause; Zackery Soares Discharge Orders/Prescriptions Prescriptions: New sennosides-docusate sodium [Stimulant Laxative Plus] 8.6-50 mg Tablet 2 tab PO BID Qty: 60 0RF potassium chloride 20 mEq Tablet,Er Particles/Crystals 20 meq PO BIDCM Qty: 60 0RF guaifenesin [Mucus Relief ER] 1,200 mg Tablet Extended Release 12hr 1,200 mg PO BID Qty: 60 0RF furosemide 40 mg Tablet 40 mg PO DAILY Qty: 30 0RF metoprolol succinate 50 mg Tablet Extended Release 24 Hr 50 mg PO DAILY Qty: 30 0RF diltiazem HCl 120 mg Capsule,Extended Release 24hr 120 mg PO BID Qty: 60 0RF Eliquis 5 mg Tablet 5 mg PO BID Qty: 60 0RF Continued oxycodone 5 mg capsule 5 mg PO Q4H Rx Instructions: take 1-2 tabs as needed for pain ondansetron 8 mg tablet,disintegrating 8 mg PO Q8H Jardiance 25 mg tablet 12.5 mg PO DAILY metoprolol succinate [Toprol XL] 25 mg tablet extended release 24 hr 25 mg PO DAILY dexamethasone 4 mg tablet 4 mg PO DAILY Referrals / Follow [facility] - Within 1 Week Disposition Disposition (needs filled in before D/C Order can be placed): Home, Self Care Charges/Coding Visit Charges Inpatient E&M: 06722 Disch Hosp >30min 03/08/25 1519 Cosigner Signature (if applicable): CC: Dr. Pj Roper DO; [facility]~ Signed [facility]09-08-2025 Progress note [facility] Medical Records Department [address] [place] [address] Progress Note - Hospitalist 03/08/25 0933 MR#: [id number] Acct: [id number] Name: EMETERIO CHENEY Rep #:[id number] : 1955 69 From: Pj Roper DO PCP: [facility] Status:ADM IN Location: [place] [address] Reason for Visit Chief Complaint: Shortness of breath Subjective Subjective Feeling well. Anxious to go home. Objective Data Objective Data Vital Signs: Vital Signs Temp Pulse Resp BP Pulse Ox O2 Del Method O2 Flow Rate 36.4 C L 91 20 H 104/76 93 Nasal Cannula 2 03/08/25 03:15 03/08/25 06:40 03/08/25 06:40 03/08/25 03:15 03/08/25 06:40 03/08/25 08:23 03/08/25 08:23 Oxygen Flow Rate (L/min) 2 Oxygen Delivery Method Nasal Cannula Weight: 63.8 kg Body Mass Index (BMI) 20.2 Intake & Output: Intake and Output for Last 24 Hours 03/06/25 03/07/25 03/08/25 23:59 23:59 23:59 Intake Total 1475 / 1595 1767.67 / 1987.67 320 / 320 Output Total 2100 / 2100 1550 / 1750 350 / 350 Balance -625 / -505 217.67 / 237.67 -30 / -30 Medical Nutrition Assessment Dietitian: Malnutrition Criteria Met Start: 03/02/25 08:20 Freq: Status: Active Protocol: Document 03/02/25 16:19 RMA (Rec: 03/02/25 16:19 RMA [id number]) Nutrition Malnutrition Evidence of Yes Malnutrition Exists Malnutrition (severe Chronic ): Evidenced By Suboptimal Energy Intake (Severe),Weight Loss (Severe), Physical Changes (Severe) Clinical Problem Chronic Disease or Condition Related Malnutrition Etiology Severe protein-calorie malnutrition in the context of chronic disease related to inadequate energy/oral intake and increased energy expenditure Signs/Symptoms as evidenced by ~15% unintentional body weight lossx 2 months; PO meeting less than 50% estimated nutrition needs x past 1 month; BMI 20.2; muscle wasting/fat depletion in the clavicle, face, arms and legs Status Active Problem Recommendation Dietitian Will liberalize diet to Regular. Recommendations/ Will add magic cup with lunch. Changes Will add 240mL ensure plus HP w/ breakfast and dinner tray. Additional ONS as needed. Lab / Micro Data 03/08/25 04:35 03/08/25 04:35 Labs: Laboratory Results - last 24 hr 03/08/25 04:35: WBC 12.6 H, RBC 3.65 L, Hgb 9.7 L, Hct 30.7 L, MCV 84.1, MCH 26.6 L, MCHC 31.6 L, RDW Std Deviation 48.0 H, RDW Coeff of Hai 15.8 H, Plt Count 455 H, MPV 9.8, Neut % (Auto) Not Reportable, Absolute Neuts (auto) 10.2 H, Absolute Lymphs (auto) 0.76 L, Total Counted 100, Neutrophils % (Manual) 80 H,Band Neutrophils % 1, Lymphocytes % (Manual) 6 L, Monocytes % (Manual) 8, Metamyelocytes % 4 H, Myelocytes % 1 H, Platelet Estimate SLT INC, Polychromasia 1+, Sodium 132 L, Potassium 4.2, Chloride 91 L, Carbon Dioxide 26.2, Anion Gap 14, BUN 25 H, Creatinine 0.92, Estim Creat Clear Calc 68.38, Est GFR (MDRD) Non- Af 90, BUN/Creatinine Ratio 27.6 H, Glucose 102 H, Calcium 8.9, Phosphorus 3.5, Magnesium 1.8 Micro: Microbiology 03/01/25 05:57 Blood Culture (Wb) - Right Wrist Blood Culture - Final No growth in 5 days. 03/01/25 05:40 Blood Culture (Wb) - Right Wrist Blood Culture - Final No growth in 5 days. 03/01/25 21:02 Mucosa - Nasopharyngeal Respiratory Panel (PCR) - Final 03/01/25 21:48 Urine, Clean Catch Streptococcus pneumoniae Antigen (M - Final 03/01/25 21:48 Urine, Clean Catch Legionella Antigen - Final Rhythm Strip Rhythm Strip: Sinus Tach Rate: 109 Ectopy: PVC(s) and - (short run of SVT) Social Homelessness:: Sheltered Physical Exam Const alert and no apparent distress Constitutional Narrative: lying in bed. thin. afebrile. Resp normal respiratory effort, no retractions, no use of accessory muscles and clearto auscultation bilaterally Cardio regular rate, regular rhythm, S1 normal heart sound and S2 normal heart sound GI normal to inspection, nondistended, normoactive bowel sounds, soft to palpation,non-tender and non-distended Extremity normal to inspection and full ROM Psych affect normal Assessment & Plan Assessment/Plan (1) Obstructive pneumonia: (2) Pleural effusion: (3) Metastatic cancer to lung: PLAN: Plan Acute hypoxia ? CT demonstrated mild increase in the size of the left upper lobe/left hilar mass. Increased left pleural effusion. Increased left basilar atelectasis/consolidation. Increased cavitation in the leftlower lobe. Unchanged mediastinal and hilar lymphadenopathy. Mild increase in the size and number of multiple pulmonary nodules with the largest measuring 16 mm. Placed on supplemental oxygen with treatment of the underlying clinical etiology ? 03/04/2025; patient remains on supplemental oxygen plan is for patient to be assessed for home oxygen prior to being discharged ? 03/05/2025Patient has a plan is for patient to be discharged to dependent his home oxygen being setup and approved by the [facility] ? 03/07/2025; patient oxygen was apparently delivered to the wrong address did explain to patient is best to wait till Saturday for case management to sort this out -03/08: oxygen to be sent to his significant other's home, where he'll be staying. Postobstructive pneumonia ?on amp/SB since the , changed to amox/CA. Completed 7-day course of abx. Acute congestive heart failure with decreased ejection fraction ? 2D echo obtained demonstrated moderate global left ventricular systolic dysfunction with EF of 35%. On furosemide. tachycardia?A-fib flutter with rapid ventricular response ? EKG reviewed and demonstrates presence of A-fib flutter? New diagnosis. Patient did receive Cardizem. Also metoprolol continued. Patient started on systemic anticoagulation with apixaban 2D echo from 03/01/2025 did show moderate global left ventricular systolic dysfunction. The left ventricular ejection fraction is 35 %. Stage 1 diastolic dysfunction.Mild (1+) tricuspid valve insufficiency. Plan is to continue to monitor on telemetry and if patient does not respond to initial management patientbe started on a Cardizem drip ? 03/07/2025; patient was started on Cardizem during the night. Plan is to wean off and start patienton p.o. Cardizem Metastatic lung CA ? Patient has apparently failed immunotherapy. Care is at the [facility] patient is requesting to be transferred to the [facility] did explain to patient the best option would be for patient to be discharged after being assessed for home oxygen and then he can follow-up Hyponatremia ? 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 Patient was seen in consultation by dietary recommendations reviewed DVT prophylaxis? Patient started on Lovenox CODE STATUS DNR CCA no intubation ? Consult was also placed to the palliative care team to discuss goals of care next 03/04/2025 patient seen much more cooperative compared to previously. Patient is scheduled to have a meeting with hospice service this afternoon. Decision regarding discharge made after the meeting ? 03/05/2025; patient declined hospice decision was made to discharge patient homewith plans for patient to follow-up with the palliative care team at the [facility] 03/08: pt to follow up with palliative care as oupt. 03/08/25 1514 Cosigner Signature (if applicable): CC: ~ Signed [facility]09-08-2025 Progress note Author Leeann bauman [facility] Note Date/Time March 08, 2025 10:52am [facility] Medical Records Department [address] [place] [address] Progress Note - Palliative 03/08/25 1040 MR#: [id number] Acct: [id number] Name: EMETERIO CHENEY Rep #:[id number] : 1955 69 From: Leeann Wu [employer] PCP: [facility] Status:ADM IN Location: [facility] [id number] Subjective Subjective 03/08/25: Prior to meeting with the patient at bedside I reviewed documentation including the weekend. Also reviewed labs and EKGs. I then met the evening at bedside. He is in good spirits. We talked about the mixup with his oxygen in which it got delivered to the wrong address on Saturday thus seeking to stay in the hospital over the weekend. He stated everything happens for a reason. Hehad an episode of A-flutter with RVR in which she received a Cardizem drip and now receiving oral Cardizem in addition to his metoprolol. He was also started on apixaban.. Addy is hoping to return home today after getting his oxygen delivered. He is hopeful to talk to his oncologist to discuss options going forward. He is planning to follow-up with the palliative care team. My time during assessment he did get a phone call from the [facility] which I did excuse myself so he may speak with them. And he had no questions. 03/05/25: Prior to meeting with the pt at bedside, I reviewed documentation from overnight. I also talked to DAXA/MEL about meeting the pt had with hospice yesterday. I then met with Addy at bedside. When I initially entered the room, he was very agitated and stated that the hopsice meeting was crap. I did ask him to explain. He stated that he is unable to continue to seek treatment while on hospice. I did explain to him that he can continue to seek eastern medicine treatments that he had discussed before but that anything that would pull from his medicare, would not be allowed. He states understanding andstated that his philosophy and that of the hospice did not gel well. I did state understanding . We then discussed what his hopes are going forward. He is hoping to find an oncologist that can continue with treatments, even if they are trials. He wants to continue with meditation, diet and activity as well as other modalities that he can assist with the possibility of healing. He is agreeing to follow up with palliative care provider Dr. Berna Jiménez, whom he is established. I will contact her today for a warm handoff. All questions answered. Pt is waiting for O2 delivery at home for discharge. 03/04/25: I did meet with Addy in his room. He was in [employer] and Deyanira was also in the room for support. Pt did report having 9/10 pain last night. Iwas contacted to confirm that the pt takes Oxy 10mg PO for severe pain. Addy endorsed that he feels that going home with hospice is his best option. He plans to continue adjunct modalities to his traditional medical practices. He does acknowledge some SOB this morning but states manageable He was, initially speaking in 3-4 word sentences but as he became distracted with our discussion, I noted his breathing to ease and he was able to speak in complete sentences. He plans to continue writing a memoir about his dealing with cancer diagnosis. Addy is a deep thinker and I did encourage him to continue to do the things that brings him mick. All questions answered. 03/03/25: Creatinine is daily at bedside I did review documentation and labs from overnight. I did note that he has had an improvement in his WBCs from 13.5-11.4. Slight decrease in his hemoglobin hematocrit from 10.5-9.8 today and 32.6yesterday to 30.3 today. Platelets continue to be elevated at 491. He is slightly hyponatremic with a sodium of 131. BUN is slightly elevated at 20 from16 yesterday. Patient continues to receive Lasix. I then met with Emeterio sharmin. He was sitting up in his bed stabilizing his trunk well, away from theback of the bed. Family initially wanted to speak about alternative healing methods for his cancer. I do support his utilization of Eastern and Ayurvedic medicine to assist with his healing but I also discussed comfort measures while not receiving traditional Western medicine such as chemotherapy or radiation. Idid discuss the possibility of hospice services for comfort in addition to his nontraditional healing practices. He did state that he will think about it as he thought it may be a good adjunct if he is unable to receive any further treatment from a Western medicine standpoint. He did state that he would like to receive all of his care from the [facility] as he is embedded with them. He is hopeful that he will be able to find a provider that is willing to treat his cancer. We then discussed what the typical criteria is for continued Western medicine treatment in which Addy states understanding. I then discussed that yesterday he refused PT and OT and did not want to get the bed. I explained to him that he needs to be able to get out of the bed and utilize a walker if he wants any chance in receiving continue Western medicine. Addy did state understanding and states that he will work with PT and OT and is mad at himself or refusing yesterday. He expressed frustration over the management of his painmedications. He states that at home he takes oxycodone 2.5 mg or 5 mg up to 10 mg every 4 hours depending on symptoms and pain. I did state understanding and explained that that is a typical palliative order to utilize the lowest dose possible in managing symptoms. I do recommend oxycodone 2.5 mg p.o. every 4 hours as needed for mild pain 1-3 or mild shortness of breath, oxycodone 5 mg p.o. every 4 hours as needed for moderate pain 4-6 and/or moderate shortness of breath and oxycodone 10 mg p.o. every 4 hours as needed for severe pain 7-10 and/or severe shortness of breath. An attempt to meet Addy where he is at, will continue to discuss adjunct treatments and what that would look like for him going forward from a nutritional standpoint as well as his mind and spirit. Addy plans to more aggressively implement meditation, guided imagery and relaxation and exercises. He does note that his symptoms get worse when he becomes anxious or sad having a bad day. States good understanding of how his mind has been affecting symptoms. I did recommend that he finds a good balance between his Eastern philosophy and Western medicine which he states agreement. He does state that he is not against initiating hospice for comfort and that he would like to receive those services to through the [facility] and would like to speak to them first. He does have a palliative care provider at the [facility]. I did encourage him to reachout to them sooner rather than later to get assistance with managing his symptoms. I then spoke with Dr. Loya, to update him on Addy's desire to go to the [facility]. He recommended the possibility of discharge to home and then have the patient reach out to his primary care providers for next steps at the [facility]. Lastly, I did speak to Addy about POA and the importance of establishing a POA going forward. Particularly, because he would like his Deyanira vick to be his decision-maker. He plans to initiate them as soon as he is discharged. Addy did take lots of notes during our conversation and asked very good questions, which were answered. Palliative care will continue to follow for support as the patient's clinical picture evolves. 03/02/25Prior to meeting with the pt at bedside, I reviewed previous documentation, labs, radiological studies and well as diagnostic studies. I then met with the pt at bedside. I introduced myself to both Addy and his fiance , Deyanira and the concept of palliative care, which they voluntarily accepted our services. I ask Addy what he knew of his diagnosis, in which he confirmed that his oncologist stated that he has completed 3 rounds of immunotherapy with no improvement in his cancer. They are not convinced that hewill receive any further treatment from his oncologist. Addy continually talks about various doctors that have had great success with treatments Dr Segal and out of [place]. I did ask if he has reached out to these doctors and been accepted as a patient? He stated that he has not but states that he is going to have them contact the doctors here and they can tell them what to do. I explained to him that it typically doesn't work that way. He then talked about going to a cancer treatment center in [place]. Currently, he isnot well enough for travel and I did ask him how he plans to get there. He did not have a response, at this time. I am concerned that he may be experiencing denial in his grief process. He did endorse that he spends 90% of his time in bed, while at home. I then discussed his Echocardiogram and gave he and Marnie overview of what it said with explanations. They both stated understanding. I explained his EF of 35% and elevated troponins x 3 of 36, 34 and 29. BNP of 2433, Along with his metastatic stage IV lung cancer without receiving any further treatments, would make him eligible for hospice. Both Addy and Deyanira stated that they don't feel they are ready for that. I did offer supportive listening and allowed them to change the subject and followed their trajectory. We did discuss the fact that he is very weak and will, most likely, not be a candidate for continued therapies unless he can gain some strength. He is open to continued PT/OT services to get stronger. He is currently waiting for a bed at the [facility] and states that he feels his symptoms are being controlled well, at this time. He is open to further conversations and Palliative care will continue to follow. All questions answered. Per hospitalist EMETERIO CHENEY, is a 69y/o male w/ hx of stage IV lung cancer notreceiving any treatment because he was not responding to immunotherapy and symptomatic anemia who presented [facility] ED 03/01/2025 for shortness of breath especially in the mornings but over the past 3 days he has continued to worsen, also has mild wheezing and coughing. Also notes the past 2weeks he has had increased swelling in his lower extremities. In the ED patientafebrile, patient with variable heart rate anywhere from 90s to 120s, blood pressure initially 106/92, respiratory rate 18 patient 98% on 3 L nasal cannula with a respiratory rate of 19. CBC with white blood cell count 14.4, qxzzohirdi40.2 and platelet count 459. BMP with a sodium of 126, up from 120 in December, BUNof 11 and creatinine 0.65, Trop of 36 with 4-hour Trop of 29, and a proBNP of 2433. Lactic acid within normal limits. CTA obtained and showed mild increase in size of patient's left upper lobe/left hilar mass with increased cavitation consolidation as well as left pleural effusion, mild increase in size and numberof pulmonary nodules, unchanged multifocal compression of the left pulmonary artery and branches. ED physician was concern for postobstructive pneumonia andfluid overload, patient received Rocephin and azithromycin as well as IV Lasix in the ED. [facility] and was supposed to be transferred howeverno beds for prolonged amount of time and [facility] given lack of bed availability so hospitalist contacted for admission. Patient evaluated bedside. Patient reports he is still having shortness of breath but feels better than when he first arrived especially sincehe has been pain off fluid. He notes that he has been having shortness of breath and cough for a year and was diagnosed with stage IV lung cancer, usuallyhe short of breath when he wakes up in the morning but then will improve throughout the day and some days will not feel too bad at all over the past 3 days he has not been improving throughout the day, does cough but has difficultyproducing any sputum, also notes leg swelling for the past 2 weeks. He reports before his lung cancer diagnosis he had never been hospitalized and did not takeany medications, denies smoking, only thing he takes at home currently is oxycodone as needed since his diagnosis. Denies any breathing treatments at home and does not wear home oxygen. He denies any chest pain, no fever at home,occasionally gets some abdominal pain but nothing significant, had been having problems with constipation but that has resolved, denies nausea. Denies problems with urination Objective Data Objective Data Vital Signs: Vital Signs Temp Pulse Resp BP Pulse Ox O2 Del Method O2 Flow Rate 97.5 F L 94 20 H 114/91 H 93 Nasal Cannula 2 03/08/25 03:15 03/08/25 09:40 03/08/25 06:40 03/08/25 09:40 03/08/25 06:40 03/08/25 08:23 03/08/25 08:23 Oxygen Flow Rate (L/min) 2 Oxygen Delivery Method Nasal Cannula Weight: 140 lb 10.479 oz Body Mass Index (BMI) 20.2 Intake & Output: Intake and Output for Last 24 Hours 03/06/25 03/07/25 03/08/25 23:59 23:59 23:59 Intake Total 1475 / 1595 1767.67 / 1987.67 320 / 320 Output Total 2100 / 2100 1550 / 1750 350 / 350 Balance -625 / -505 217.67 / 237.67 -30 / -30 Medical Nutrition Assessment Dietitian: Malnutrition Criteria Met Start: 03/02/25 08:20 Freq: Status: Active Protocol: Document 03/02/25 16:19 RMA (Rec: 03/02/25 16:19 RMA [id number]) Nutrition Malnutrition Evidence of Yes Malnutrition Exists Malnutrition (severe Chronic ): Evidenced By Suboptimal Energy Intake (Severe),Weight Loss (Severe), Physical Changes (Severe) Clinical Problem Chronic Disease or Condition Related Malnutrition Etiology Severe protein-calorie malnutrition in the context of chronic disease related to inadequate energy/oral intake and increased energy expenditure Signs/Symptoms as evidenced by ~15% unintentional body weight lossx 2 months; PO meeting less than 50% estimated nutrition needs x past 1 month; BMI 20.2; muscle wasting/fat depletion in the clavicle, face, arms and legs Status Active Problem Recommendation Dietitian Will liberalize diet to Regular. Recommendations/ Will add magic cup with lunch. Changes Will add 240mL ensure plus HP w/ breakfast and dinner tray. Additional ONS as needed. Lab / Micro Data Attestation: I reviewed the patient's lab results. Lab results narrative: WBCs are slightly elevated 26, hemoglobin and hematocrit are continue to be low at 9.7 and 30.7. Platelets are elevated at 155. Sodium is slightly low at 132,his BUN is slightly elevated at 25. Blood sugar check 102 03/08/25 04:35 03/08/25 04:35 Labs: Laboratory Results - last 24 hr 03/08/25 04:35: WBC 12.6 H, RBC 3.65 L, Hgb 9.7 L, Hct 30.7 L, MCV 84.1, MCH 26.6 L, MCHC 31.6 L, RDW Std Deviation 48.0 H, RDW Coeff of Hai 15.8 H, Plt Count 455 H, MPV 9.8, Neut % (Auto) Not Reportable, Absolute Neuts (auto) 10.2 H, Absolute Lymphs (auto) 0.76 L, Total Counted 100, Neutrophils % (Manual) 80 H,Band Neutrophils % 1, Lymphocytes % (Manual) 6 L, Monocytes % (Manual) 8, Metamyelocytes % 4 H, Myelocytes % 1 H, Platelet Estimate SLT INC, Polychromasia 1+, Sodium 132 L, Potassium 4.2, Chloride 91 L, Carbon Dioxide 26.2, Anion Gap 14, BUN 25 H, Creatinine 0.92, Estim Creat Clear Calc 68.38, Est GFR (MDRD) Non-Af 90, BUN/Creatinine Ratio 27.6 H, Glucose 102 H, Calcium 8.9, Phosphorus 3.5, Magnesium 1.8 Micro: Microbiology 03/01/25 05:57 Blood Culture (Wb) - Right Wrist Blood Culture - Final No growth in 5 days. 03/01/25 05:40 Blood Culture (Wb) - Right Wrist Blood Culture - Final No growth in 5 days. 03/01/25 21:02 Mucosa - Nasopharyngeal Respiratory Panel (PCR) - Final 03/01/25 21:48 Urine, Clean Catch Streptococcus pneumoniae Antigen (M - Final 03/01/25 21:48 Urine, Clean Catch Legionella Antigen - Final Rhythm Strip Rhythm Strip: Sinus Tach Rate: 109 Ectopy: PVC(s) and - (short run of SVT) Social Homelessness:: Sheltered Physical Exam Const oriented x3 Constitutional Narrative: Patient is gaunt in appearance with sunken features. General Appearance: cooperative Orientation / Consciousness: awake, oriented to person, oriented to place and oriented to time Exam Limitations: no limitations Nutritional Appearance: cachectic HEENT normocephalic Neck full ROM Chest Chest: symmetrical chest wall rise Resp Effort and Inspection: tachypneic Auscultation: crackles, wheezes and diminished lung sounds Cardio Rate: tachycardic GI GI Narrative: Significant bulging related to hernia right lower quadrant no CVA tenderness Back/Spine no CVA tenderness Extremity normal to inspection Skin no rashes or lesions noted Neuro oriented x3 and CN's II-XII intact bilaterally Sensorium / Orientation: awake, alert, oriented to person, oriented to place andoriented to time Psych mental status grossly normal Charges/Coding Palliative Care Palliative Care: [id number] Follow up 35-49 min Consulation Summary Current admission Current Code Status: DNRCC-A no intubation Associated Diagnosis: Metastatic lung cancer Consult Data Date of Consult: 03/02/25 Location of consult: PCU Reason for referral: Goals of care Referral source: Dr. Loera Palliative care diagnosis (Summary list): Stage IV metastatic lung cancer, EF of35% Palliative care services/treatment (Accepted, as consult): accepted Palliative Assessment Advanced Directive - Current Admission Advance Directive: Advance Directive ON ADMISSION - REFERENCE 3 Do you have a Healthcare No 03/01/25 19:19 Living Will? Do you have a Healthcare Power No 03/01/25 19:19 of Elementary Math Tutor? Do You Want Additional Declined 03/01/25 19:19 Information on Advanced Directives or Healthcare Proxy/DPOA comments: Fianc? Deyanira Symptoms Dyspnea symptoms: Severe Constipation symptoms: Mild Nausea symptoms: None Vomiting symptoms: None Depression symptoms: None Anorexia symptoms: Moderate Cough symptoms: Moderate Insomnia symptoms: None Diarrhea symptoms: None Fatigue symptoms: Mild Weakness symptoms: Moderate Confusion symptoms: None Impression & Recommendations Recommentation Palliative recommendations: Patient plans to return home today and follow-up with outpatient palliative care at [facility]. Encouter Achieved as a result of this Palliative Care Encounter: [[id number], [id number], [id number] ] minutes were spent in total for this visit which consisted, primarily of counseling and education dealing with the complex and emotionally intense issues of symptom management and palliative care in the setting of serious and potentially life-threatening illness. Review of documentation, labs and radiological studies. ?Patient/family had the opportunity to ask questions Plan (1) Metastatic cancer to lung: PLAN: Patient awaiting home O2 delivery Medical management per primary team (2) Pleural effusion: PLAN: Medical management per primary team (3) Acute hypoxic respiratory failure: PLAN: Medical management per primary team (4) Palliative care encounter: PLAN: Patient is adamant that he wants to continue aggressive medical management. Patient is agreeable to follow-up with palliative care at the [facility]. ROS Constitutional Constitutional: Reports systems reviewed and no addt'l complaints, except as documented Eyes Eyes: Reports systems reviewed and no addt'l complaints, except as documented ENT HEENT: Reports systems reviewed and no addt'l complaints, except as documented Cardiovascular Cardiovascular: Reports flutter in chest and other Details: We reported this over the weekend. Currently states it resolved. Respiratory/Chest Respiratory/Chest: Reports cough and dyspnea Gastrointestinal Gastrointestinal: Reports systems reviewed and no addt'l complaints, except as documented Genitourinary Genitourinary: Reports systems reviewed and no addt'l complaints, except as documented Musculoskeletal Musculoskeletal: Reports systems reviewed and no addt'l complaints, except as documented Integumentary Integumentary: Reports systems reviewed and no addt'l complaints, except as documented Neurologic Neurologic: Reports systems reviewed and no addt'l complaints, except as documented Psychiatric Psychiatric: Reports systems reviewed and no addt'l complaints, except as documented Endocrine Endocrinology: Reports systems reviewed and no addt'l complaints, except as documented Hematologic/Lymphatic Hematologic/Lymphatic: Reports systems reviewed and no addt'l complaints, exceptas documented Allergic/Immunologic Allergic/Immunologic: Reports systems reviewed and no addt'l complaints, except as documented 03/08/25 1052 <Electronically signed by Leeann GREEN> Cosigner Signature (if applicable): CC: ~ Signed [facility] Work Phone: 1(391) 885-792409-08-2025 Progress note [facility] Medical Records Department [address] [place] [address] Progress Note - Palliative 03/08/25 1040 MR#: [id number] Acct: [id number] Name: EMETERIO CHENEY Rep #:[id number] : 1955 69 From: Leeann GREEN PCP: [facility] Status:ADM IN Location: [facility] [id number]- [id number] Subjective Subjective 03/08/25: Prior to meeting with the patient at bedside I reviewed documentation including the weekend. Also reviewed labs and EKGs. I then met the evening at bedside. He is in good spirits. We talked about the mixup with his oxygen in which it got delivered to the wrong address on Saturday thus seekingto stay in the hospital over the weekend. He stated everything happens for a reason. Hehad an episode of A-flutter with RVR in which she received a Cardizem drip and now receiving oral Cardizem in addition to his metoprolol. He was also started on apixaban.. Addy is hoping to return home today after getting his oxygen delivered. He is hopeful to talk to his oncologist to discuss options going f orward. He is planning to follow-up with the palliative care team. My time during assessment he didget a phone call from the [facility] which I did excuse myself so he may speak with them. And he had no questions. 9/5/25: Prior to meeting with the pt at bedside, I reviewed documentation from overnight. I also talked to SW/MEL about meeting the pt had with hospice yesterday. I then met with Addy at bedside. When I initially entered the room, he was very agitated and stated that the hopsice meeting was crap.I did ask him to explain. He stated that he is unable to continue to seek treatment while on hospice. I did explain to him that he can continue to seek eastern medicine treatments that he had discussed before but that anything that would pull from his medicare, would not be allowed. He states understanding andstated that his philosophy and that of the hospice did not gel well. I did state understanding . We then discussed what his hopes are going forward. He is hoping to find an oncologist thatcan continue with treatments, even if they are trials. He wants to continue with meditation, diet and activity as well as other modalities that he can assist with the possibility of healing. He is agreeing to follow up with palliative care provider Dr. Berna Jiménez, whom he is established. I will contact her today for a warm handoff. All questions answered. Pt is waiting for O2 delivery at home for discharge. 03/04/25: I did meet with Addy in his room. He was in [facility] and Deyanira was also in the room for support. Pt did report having 9/10 pain last night. Iwas contacted to confirm that the pt takes Oxy 10mg PO for severe pain. Addy endorsed that he feels that going home with hospice is his best option. He plans to continue adjunct modalities to his traditional medical practices. He does acknowledge some SOB this morning but states manageable He was, initially speaking in 3-4word sentences but as he became distracted with our discussion, I noted his breathing to ease and he was able to speak in complete sentences. He plans to continue writing a memoir about his dealing with cancer diagnosis. Addy is a deep thinker and I did encourage him to continue to do the things that brings him mick. All questions answered. 03/03/25: Creatinine is daily at bedside I did review documentation and labs from overnight. I did note that he has had an improvement in his WBCs from 13.5-11.4. Slight decrease in his hemoglobin hematocrit from 10.5-9.8 today and 32.6yesterday to 30.3 today. Platelets continue to be elevated at 491. He is slightly hyponatremic with a sodium of 131. BUN is slightly elevated at 20 from16 yesterday.Patient continues to receive Lasix. I then met with Emeterio finney. He was sitting up in his bed stabilizing his trunk well, away from theback of the bed. Family initially wanted to speak about alternative healing methods for his cancer. I do support his utilization of Eastern and Ayurvedic medicine to assist with his healing but I also discussed comfort measures while not receiving traditional Western medicine such as chemotherapy or radiation. Idid discuss the possibility of hospice services for comfort in addition to his nontraditional healing practices. He did state that he will think about it as he thought it may be a good adjunct if he is unable to receive any further treatment from [facility] medicine standpoint. He did state that he would [facility]. He is hopeful that he will be able to find a provider that is willing to treat his cancer. We then discussed what the typical criteria is for continued Western medicine tr eatment in which Addy states understanding. I then discussed that yesterday he refused PT and OT and did not want to get the bed. I explained to him that he needs to be able to get out of the bed and utilize a walker if he wants any chance in receiving continue Western medicine. Addy did state understanding and states that he will work with PT and OT and is mad at himself or refusing yesterday.He expressed frustration over the management of his painmedications. He states that at home he takes oxycodone 2.5 mg or 5 mg up to 10 mg every 4 hours depending on symptoms and pain. I did state understanding and explained that that is a typical palliative order to utilize the lowest dose possiblein managing symptoms. I do recommend oxycodone 2.5 mg p.o. every 4 hours as needed for mild pain 1-3 or mild shortness of breath, oxycodone 5 mg p.o. every 4 hours as needed for moderate pain 4-6 and/or moderate shortness of breath and oxycodone 10 mg p.o. every 4 hours as needed for severe pain 7-10 and/or severe shortness of breath. An attempt to meet Addy where he is at, will continue to discuss adjunct treatments and what that would look like for him going forward from a nutritional standpoint as well as his mind and spirit. Addy plans to more aggressively implement meditation, guided imagery and relaxation and exercises. He does note that his symptoms get worse when he becomes anxious or sad having a bad day. Statesgood understanding of how his mind has been affecting symptoms. I did recommend that he finds a good balance between his Eastern philosophy and Western medicine which he states agreement. He does state that he is not against initiating hospice for comfort and that he would like to receive those services to through the [facility] and would like to speak to them first. He does have a palliative care provider at the [facility]. I did encourage him to reachout to them sooner rather than later to get assistance with managing his symptoms. I then spoke with Dr. Loya, to update him on Addy's desire to go to the [facility]. He recommended the possibility of discharge to home and then have the patient reach out to his primary care providers for next steps at the [facility]. Lastly, I did speak to Addy about POA and the importance of establishing a POA going forward. Particularly, because he would like his fiDeyanira caputo to be his decision-maker. He plans to initiate them as soon as he is discharged. Addy did take lots of notes during our conversation and asked very good questions, which were answered. Palliative care will continue to follow for support as the patient's clinical picture evolves. 03/02/25Prior to meeting with the pt at bedside, I reviewed previous documentation, labs, radiological studies and well as diagnostic studies. I then met with the pt at bedside. I introduced myself to both Addy and his fiance , Deyanira and the concept of palliative care, which they voluntarily accepted our services. I ask Addy what he knew of his diagnosis, in which he confirmed that his oncologist stated that he has completed 3 rounds of immunotherapy with no improvement in his cancer. They are not convinced that hewill receive any further treatment from his oncologist. Addy continually talks about various doctors that have had great success with treatments Dr Segal and out of [place]. I did ask if he has reached out to these doctors and been accepted as a patient? He statedthat he has not but states that he is going to have them contact the doctors here and they can tell them what to do. I explained to him that it typically doesn't work that way. He then talked about going to a cancer treatment center in [place]. Currently, he isnot well enough for travel and I didask him how he plans to get there. He did not have a response, at this time. I am concerned that lorenza be experiencing denial in his grief process. He did endorse that he spends 90% of his time in bed, while at home. I then discussed his Echocardiogram and gave he and Vaniaoswald overview of what it said with explanations. They both stated understanding. I explained his EF of 35% and elevated troponins x 3 of 36, 34 and 29. BNP of 2433, Along with his metastatic stage IV lung cancer without receiving any further treatments, would make him eligible for hospice. Both Addy and Deyanira stated thatthey don't feel they are ready for that. I did offer supportive listening and allowed them to change the subject and followed their trajectory. We did discuss the fact that he is very weak and will, most likely, not be a candidate for continued therapies unless he can gain some strength. He is opento continued PT/OT services to get stronger. He is currently waiting for a bed at the [facility] and states that he feels his symptoms are being controlled well, at this time. He is open to further conversa tions and Palliative care will continue to follow. All questions answered. Per hospitalist EMETERIO CHENEY, is a 69y/o male w/ hx of stage IV lung cancer notreceiving any treatment because he was not responding to immunotherapy and symptomatic anemia who presented [facility] ED 03/01/2025 for shortness of breath especially in the mornings but over the past 3 days he has continued to worsen, also has mild wheezing and coughing. Also notes the past 2weeks he has had increased swelling in his lower extremities. In the ED patientafebrile, patient with variableheart rate anywhere from 90s to 120s, blood pressure initially 106/92, respiratory rate 18 patient 98% on 3 L nasal cannula with a respiratory rate of 19. CBC with white blood cell count 14.4, [id number] and platelet count 459. BMP with a sodium of 126, up from 120 in December, BUNof 11 and creatinine 0.65, Trop of 36 with 4-hour Trop of 29, and a proBNP of 2433. Lactic acid within normal limits.CTA obtained and showed mild increase in size of patient's left upper lobe/left hilar mass with increased cavitation consolidation as well as left pleural effusion, mild increase in size and numberofpulmonary nodules, unchanged multifocal compression of the left pulmonary artery and branches. ED physician was concern for postobstructive pneumonia andfluid overload, patient received Rocephin and azithromycin as well as IV Lasix in the ED. Patient with [facility] and [facility] bed availability so hospitalist contacted for admission. Patient evaluated bedside. Patientreports he is still having shortness of breath but feels better than when he first arrived especially sincehe has been pain off fluid. He notes that he has been having shortness of breath and cough for a year and was diagnosed with stage IV lung cancer, usuallyhe short of breath when he wakes up inthe morning but then will improve throughout the day and some days will not feel too bad at all over the past 3 days he has not been improving throughout the day, does cough but has difficultyproducing any sputum, also notes leg swelling for the past 2 weeks. He reports before his lung cancer diagnosis he had never been hospitalized and did not takeany medications, denies smoking, only thing he takes at home currently is oxycodone as needed since his diagnosis. Denies any breathing treatments at home and does not wear home oxygen. He denies any chest pain, no fever at home,occasionally gets some abdominal pain but nothing significant, had been having problems with constipation but that has resolved, denies nausea. Denies problems with urination Objective Data Objective Data Vital Signs: Vital Signs Temp Pulse Resp BP Pulse Ox O2 Del Method O2 Flow Rate 97.5 F L 94 20 H 114/91 H 93 Nasal Cannula 2 03/08/25 03:15 03/08/25 09:40 03/08/25 06:40 03/08/25 09:40 03/08/25 06:40 03/08/25 08:23 03/08/25 08:23 Oxygen Flow Rate (L/min) 2 Oxygen Delivery Method Nasal Cannula Weight: 140 lb 10.479 oz Body Mass Index (BMI) 20.2 Intake & Output: Intake and Output for Last 24 Hours 03/06/25 03/07/25 03/08/25 23:59 23:59 23:59 Intake Total 1475 / 1595 1767.67 / 1987.67 320 / 320 Output Total 2099 / 2100 1550 / 1750 350 / 350 Balance -625 / -505 217.67 / 237.67 -30 / -30 Medical Nutrition Assessment Dietitian: Malnutrition Criteria Met Start: 03/02/25 08:20 Freq: Status: Active Protocol: Document 03/02/25 16:19 RMA (Rec: 03/02/25 16:19 RMA [id number]) Nutrition Malnutrition Evidence of Yes Malnutrition Exists Malnutrition (severe Chronic ): Evidenced By Suboptimal Energy Intake (Severe),Weight Loss (Severe), Physical Changes (Severe) Clinical Problem Chronic Disease or Condition Related Malnutrition Etiology Severe protein-calorie malnutrition in the context of chronic disease related to inadequate energy/oral intake and increased energy expenditure Signs/Symptoms as evidenced by ~15% unintentional body weight lossx 2 months; PO meeting less than 50% estimated nutrition needs x past 1 month; BMI 20.2; muscle wasting/fat depletion in the clavicle, face, arms and legs Status Active Problem Recommendation Dietitian Will liberalize diet to Regular. Recommendations/ Will add magic cup with lunch. Changes Will add 240mL ensure plus HP w/ breakfast and dinner tray. Additional ONS as needed. Lab / Micro Data Attestation: I reviewed the patient's lab results. Lab results narrative: WBCs are slightly elevated 26, hemoglobin and hematocrit are continue to be low at 9.7 and 30.7. Platelets are elevated at 155. Sodium is slightly low at 132,his BUN is slightly elevated at 25. Bloodsugar check 102 03/08/25 04:35 03/08/25 04:35 Labs: Laboratory Results - last 24 hr 03/08/25 04:35: WBC 12.6 H, RBC 3.65 L, Hgb 9.7 L, Hct 30.7 L, MCV 84.1, MCH 26.6 L, MCHC 31.6 L, RDW Std Deviation 48.0 H, RDW Coeff of Hai 15.8 H, Plt Count 455 H, MPV 9.8, Neut % (Auto) Not Reportable, Absolute Neuts (auto) 10.2 H, Absolute Lymphs (auto) 0.76 L, Total Counted 100, Neutrophils % (Manual) 80 H,Band Neutrophils % 1, Lymphocytes % (Manual) 6 L, Monocytes % (Manual) 8, Metamyelocytes % 4 H, Myelocytes % 1 H, Platelet Estimate SLT INC, Polychromasia 1+, Sodium 132 L, Potassium 4.2, Chloride 91 L, Carbon Dioxide 26.2, Anion Gap 14, BUN 25 H, Creatinine 0.92, Estim Creat Clear Calc 68.38, Est GFR (MDRD) Non- Af 90, BUN/Creatinine Ratio 27.6 H, Glucose 102 H, Calcium 8.9, Phosphorus 3.5, Magnesium 1.8 Micro: Microbiology 03/01/25 05:57 Blood Culture (Wb) - Right Wrist Blood Culture - Final No growth in 5 days. 03/01/25 05:40 Blood Culture (Wb) - Right Wrist Blood Culture - Final No growth in 5 days. 03/01/25 21:02 Mucosa - Nasopharyngeal Respiratory Panel (PCR) - Final 03/01/25 21:48 Urine, Clean Catch Streptococcus pneumoniae Antigen (M - Final 03/01/25 21:48 Urine, Clean Catch Legionella Antigen - Final Rhythm Strip Rhythm Strip: Sinus Tach Rate: 109 Ectopy: PVC(s) and - (short run of SVT) Social Homelessness:: Sheltered Physical Exam Const oriented x3 Constitutional Narrative: Patient is gaunt in appearance with sunken features. General Appearance: cooperative Orientation / Consciousness: awake, oriented to person, oriented to place and oriented to time Exam Limitations: no limitations Nutritional Appearance: cachectic HEENT normocephalic Neck full ROM Chest Chest: symmetrical chest wall rise Resp Effort and Inspection: tachypneic Auscultation: crackles, wheezes and diminished lung sounds Cardio Rate: tachycardic GI GI Narrative: Significant bulging related to hernia right lower quadrant no CVA tenderness Back/Spine no CVA tenderness Extremity normal to inspection Skin no rashes or lesions noted Neuro oriented x3 and CN's II-XII intact bilaterally Sensorium / Orientation: awake, alert, oriented to person, oriented to place andoriented to time Psych mental status grossly normal Charges/Coding Palliative Care Palliative Care: 80045 Follow up 35-49 min Consulation Summary Current admission Current Code Status: DNRCC-A no intubation Associated Diagnosis: Metastatic lung cancer Consult Data Date of Consult: 03/02/25 Location of consult: PCU Reason for referral: Goals of care Referral source: Dr. Loera Palliative care diagnosis (Summary list): Stage IV metastatic lung cancer, EF of35% Palliative care services/treatment (Accepted, as consult): accepted Palliative Assessment Advanced Directive - Current Admission Advance Directive: Advance Directive ON ADMISSION - REFERENCE 3 Do you have a Healthcare No 03/01/25 19:19 Living Will? Do you have a Healthcare Power No 03/01/25 19:19 of Elementary Math Tutor? Do You Want Additional Declined 03/01/25 19:19 Information on Advanced Directives or Healthcare Proxy/DPOA comments: Fianc? Deyanira Symptoms Dyspnea symptoms: Severe Constipation symptoms: Mild Nausea symptoms: None Vomiting symptoms: None Depression symptoms: None Anorexia symptoms: Moderate Cough symptoms: Moderate Insomnia symptoms: None Diarrhea symptoms: None Fatigue symptoms: Mild Weakness symptoms: Moderate Confusion symptoms: None Impression & Recommendations Recommentation Palliative recommendations: Patient plans to return home today and follow-up with outpatient palliative care [facility]. Encouter Achieved as a result of this Palliative Care Encounter: [[id number], [phone], [phone] ] minutes were spent in total for this visit which consisted, primarily of counseling and education dealing with the complex and emotionally intense issues of symptommanagement and palliative care in the setting of serious and potentially life-threatening illness. Review of documentation, labs and radiological studies. ?Patient/family had the opportunity to ask questions Plan (1) Metastatic cancer to lung: PLAN: Patient awaiting home O2 delivery Medical management per primary team (2) Pleural effusion: PLAN: Medical management per primary team (3) Acute hypoxic respiratory failure: PLAN: Medical management per primary team (4) Palliative care encounter: PLAN: Patient is adamant that he wants to continue aggressive medical management. Patient is agreeable to follow-up with palliative care at the [facility]. ROS Constitutional Constitutional: Reports systems reviewed and no addt'l complaints, except as documented Eyes Eyes: Reports systems reviewed and no addt'l complaints, except as documented ENT HEENT: Reports systems reviewed and no addt'l complaints, except as documented Cardiovascular Cardiovascular: Reports flutter in chest and other Details: We reported this over the weekend. Currently states it resolved. Respiratory/Chest Respiratory/Chest: Reports cough and dyspnea Gastrointestinal Gastrointestinal: Reports systems reviewed and no addt'l complaints, except as documented Genitourinary Genitourinary: Reports systems reviewed and no addt'l complaints, except as documented Musculoskeletal Musculoskeletal: Reports systems reviewed and no addt'l complaints, except as documented Integumentary Integumentary: Reports systems reviewed and no addt'l complaints, except as documented Neurologic Neurologic: Reports systems reviewed and no addt'l complaints, except as documented Psychiatric Psychiatric: Reports systems reviewed and no addt'l complaints, except as documented Endocrine Endocrinology: Reports systems reviewed and no addt'l complaints, except as documented Hematologic/Lymphatic Hematologic/Lymphatic: Reports systems reviewed and no addt'l complaints, exceptas documented Allergic/Immunologic Allergic/Immunologic: Reports systems reviewed and no addt'l complaints, except as documented 03/08/25 1052 Cosigner Signature (if applicable): CC: ~ Signed [facility]09-07-2025 Progress note Author Zackery Soares [facility] Note Date/Time March 07, 2025 9:19am [facility] Medical Records Department [address] [place] [address] Progress Note - Hospitalist 03/07/25 0800 MR#: [id number] Acct: [id number] Name: EMETERIO CHENEY Rep #:[id number] : 1955 69 From: Zackery Soares MD PCP: [facility] Status:ADM IN Location: [place] [address] Reason for Visit Chief Complaint: Shortness of breath Subjective Subjective Patient was started on Cardizem drip during the night. Heart rate remains controlled this a.m. Plan is to DC Cardizem and start scheduled p.o. Cardizem. Patient oxygen was supposedly delivered the day prior. Patient was delivered tothe wrong address Objective Data Objective Data Vital Signs: Vital Signs Temp Pulse Resp BP Pulse Ox O2 Del Method O2 Flow Rate 97.4 F L 89 17 99/85 H 99 Nasal Cannula 2 03/07/25 07:00 03/07/25 07:00 03/07/25 07:00 03/07/25 07:00 03/07/25 07:00 03/07/25 07:00 03/07/25 07:00 Oxygen Flow Rate (L/min) 2 Oxygen Delivery Method Nasal Cannula Weight: 63.8 kg Body Mass Index (BMI) 20.2 Intake & Output: Intake and Output for Last 24 Hours 03/05/25 03/06/25 03/07/25 23:59 23:59 23:59 Intake Total 680 / 680 1475 / 1595 145.00 / 145.00 Output Total 2300 / 2650 2100 / 2100 350 / 350 Balance -1620 / -1970 -625 / -505 -205.00 / -205.00 Medical Nutrition Assessment Dietitian: Malnutrition Criteria Met Start: 03/02/25 08:20 Freq: Status: Active Protocol: Document 03/02/25 16:19 RMA (Rec: 03/02/25 16:19 RMA [id number]) Nutrition Malnutrition Evidence of Yes Malnutrition Exists Malnutrition (severe Chronic ): Evidenced By Suboptimal Energy Intake (Severe),Weight Loss (Severe), Physical Changes (Severe) Clinical Problem Chronic Disease or Condition Related Malnutrition Etiology Severe protein-calorie malnutrition in the context of chronic disease related to inadequate energy/oral intake and increased energy expenditure Signs/Symptoms as evidenced by ~15% unintentional body weight lossx 2 months; PO meeting less than 50% estimated nutrition needs x past 1 month; BMI 20.2; muscle wasting/fat depletion in the clavicle, face, arms and legs Status Active Problem Recommendation Dietitian Will liberalize diet to Regular. Recommendations/ Will add magic cup with lunch. Changes Will add 240mL ensure plus HP w/ breakfast and dinner tray. Additional ONS as needed. Lab / Micro Data 03/06/25 05:32 03/06/25 05:32 Micro: Microbiology 03/01/25 05:57 Blood Culture (Wb) - Right Wrist Blood Culture - Final No growth in 5 days. 03/01/25 05:40 Blood Culture (Wb) - Right Wrist Blood Culture - Final No growth in 5 days. 03/01/25 21:02 Mucosa - Nasopharyngeal Respiratory Panel (PCR) - Final 03/01/25 21:48 Urine, Clean Catch Streptococcus pneumoniae Antigen (M - Final 03/01/25 21:48 Urine, Clean Catch Legionella Antigen - Final Rhythm Strip Rhythm Strip: Sinus Tach Rate: 109 Ectopy: PVC(s) and - (short run of SVT) Social Homelessness:: Sheltered Physical Exam Narrative GENERAL: cooperative but frail looking HEENT: Atraumatic; normocephalic EYES; Anicteric, Normal Conjunctiva NECK; supple, normal thyroid, RESPIRATORY: Diminished to auscultation CARDIOVASCULAR: Irregular S1-S2 tachycardic GI: soft, normoactive bowel sounds, abdominal hernia : No Renal angle tenderness; EXTREMITIES: No edema, no clubbing, MUSCULOSKELETAL: no muscle wasting NEURO: Awake; no lateralizing signs. SKIN: No Rash PSYCH; Flat affect Assessment & Plan Assessment/Plan (1) Obstructive pneumonia: (2) Pleural effusion: (3) Metastatic cancer to lung: PLAN: Plan Patient is a 69-year-old gentleman with history of stage IV metastatic lung CA who presented with shortness of breath 1. Acute hypoxia ? CT demonstrated mild increase in the size of the left upper lobe/left hilar mass. Increased left pleural effusion. Increased left basilar atelectasis/consolidation. Increased cavitation in the left lower lobe. Unchanged mediastinal and hilar lymphadenopathy. Mild increase in the size and number of multiple pulmonary nodules with the largest measuring 16 mm. Placed on supplemental oxygen with treatment of the underlying clinical etiology ? 03/04/2025; patient remains on supplemental oxygen plan is for patient to be assessed for home oxygen prior to being discharged ? 03/05/2025Patient has a plan is for patient to be discharged to dependent his [facility] oxygen [facility] ? 03/07/2025; patient oxygen was apparently delivered to the wrong address did explain to patient is best to wait till Saturday for case management to sort this out 2. Postobstructive pneumonia ?Patient managed with Unasyn. ? 03/04/2025; patient WBC count remains elevated 3. Acute congestive heart failure with decreased ejection fraction ? 2D echo obtained demonstrated moderate global left ventricular systolic dysfunction with EF of 35%. Patient was placed on diuretic therapy 4. Tachycardia?A-fib flutter with rapid ventricular response ? EKG reviewed and demonstrates presence of A-fib flutter? New diagnosis. Patient did receive Cardizem. Also metoprolol continued. Patient started on systemic anticoagulation with apixaban 2D echo from 03/01/2025 did show moderate global left ventricular systolic dysfunction. The left ventricular ejection fraction is 35 %. Stage 1 diastolic dysfunction.Mild (1+) tricuspid valve insufficiency. Plan is to continue to monitor on telemetry and if patient does not respond to initial management patient be started on a Cardizem drip ? 03/07/2025; patient was started on Cardizem during the night. Plan is to wean off and start patient on p.o. Cardizem 5. Metastatic lung CA ? Patient has apparently failed immunotherapy. Care is at the [facility] patient is requesting to be transferred [facility] did explain to patient the best option would be for patient to be discharged after being assessed for home oxygen and then he can follow-up 7. Hyponatremia ? 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 Severe protein-calorie malnutrition in the context of chronic disease related to inadequate energy/oral ntake and increased energy expenditure ? Patient was seen in consultation by dietary recommendations reviewed 7. DVT prophylaxis ? Patient started on Lovenox CODE STATUS DNR CCA no intubation ? Consult was also placed to the palliative care team to discuss goals of care next 03/04/2025 patient seen much more cooperative compared to previously. Patient is scheduled to have a meeting with hospice service this afternoon. Decision regarding discharge made after the meeting ? 03/05/2025; patient declined hospice decision was made to discharge patient homewith plans for patient to follow-up with the palliative care team at the [facility] Time spent in the patient's overall evaluation,decision-making process, review of diagnostic data, adjustment of management, discussion with other providers, nursing nursing and ancillary staff involved in patient's care documentation 38 Minutes Charges/Coding Visit Charges Inpatient E&M: 15062 Subs Hosp L2 03/07/25 0919 <Electronically signed by Zackery Soares MD> Cosigner Signature (if applicable): CC: ~ Signed [facility] Work Phone: 1(575) 713-710809-07-2025 Progress note [facility] Medical Records Department [address] [place] [address] Progress Note - Hospitalist 03/07/25 0800 MR#: [id number] Acct: [id number] Name: EMETERIO CHENEY Rep #:[id number] : 1955 69 From: Zackery Soares MD PCP: [facility] Status:ADM IN Location: [place] [address] Reason for Visit Chief Complaint: Shortness of breath Subjective Subjective Patient was started on Cardizem drip during the night. Heart rate remains controlled this a.m. Planis to DC Cardizem and start scheduled p.o. Cardizem. Patient oxygen was supposedly delivered the day prior. Patient was delivered tothe wrong address Objective Data Objective Data Vital Signs: Vital Signs Temp Pulse Resp BP Pulse Ox O2 Del Method O2 Flow Rate 97.4 F L 89 17 99/85 H 99 Nasal Cannula 2 03/07/25 07:00 03/07/25 07:00 03/07/25 07:00 03/07/25 07:00 03/07/25 07:00 03/07/25 07:00 03/07/25 07:00 Oxygen Flow Rate (L/min) 2 Oxygen Delivery Method Nasal Cannula Weight: 63.8 kg Body Mass Index (BMI) 20.2 Intake & Output: Intake and Output for Last 24 Hours 03/05/25 03/06/25 03/07/25 23:59 23:59 23:59 Intake Total 680 / 680 1475 / 1595 145.00 / 145.00 Output Total 2300 / 2650 2100 / 2100 350 / 350 Balance -1620 / -1970 -625 / -505 -205.00 / -205.00 Medical Nutrition Assessment Dietitian: Malnutrition Criteria Met Start: 03/02/25 08:20 Freq: Status: Active Protocol: Document 03/02/25 16:19 RMA (Rec: 03/02/25 16:19 RMA [id number]) Nutrition Malnutrition Evidence of Yes Malnutrition Exists Malnutrition (severe Chronic ): Evidenced By Suboptimal Energy Intake (Severe),Weight Loss (Severe), Physical Changes (Severe) Clinical Problem Chronic Disease or Condition Related Malnutrition Etiology Severe protein-calorie malnutrition in the context of chronic disease related to inadequate energy/oral intake and increased energy expenditure Signs/Symptoms as evidenced by ~15% unintentional body weight lossx 2 months; PO meeting less than 50% estimated nutrition needs x past 1 month; BMI 20.2; muscle wasting/fat depletion in the clavicle, face, arms and legs Status Active Problem Recommendation Dietitian Will liberalize diet to Regular. Recommendations/ Will add magic cup with lunch. Changes Will add 240mL ensure plus HP w/ breakfast and dinner tray. Additional ONS as needed. Lab / Micro Data 03/06/25 05:32 03/06/25 05:32 Micro: Microbiology 03/01/25 05:57 Blood Culture (Wb) - Right Wrist Blood Culture - Final No growth in 5 days. 03/01/25 05:40 Blood Culture (Wb) - Right Wrist Blood Culture - Final No growth in 5 days. 03/01/25 21:02 Mucosa - Nasopharyngeal Respiratory Panel (PCR) - Final 03/01/25 21:48 Urine, Clean Catch Streptococcus pneumoniae Antigen (M - Final 03/01/25 21:48 Urine, Clean Catch Legionella Antigen - Final Rhythm Strip Rhythm Strip: Sinus Tach Rate: 109 Ectopy: PVC(s) and - (short run of SVT) Social Homelessness:: Sheltered Physical Exam Narrative GENERAL: cooperative but frail looking HEENT: Atraumatic; normocephalic EYES; Anicteric, Normal Conjunctiva NECK; supple, normal thyroid, RESPIRATORY: Diminished to auscultation CARDIOVASCULAR: Irregular S1-S2 tachycardic GI: soft, normoactive bowel sounds, abdominal hernia : No Renal angle tenderness; EXTREMITIES: No edema, no clubbing, MUSCULOSKELETAL: no muscle wasting NEURO: Awake; no lateralizing signs. SKIN: No Rash PSYCH; Flat affect Assessment & Plan Assessment/Plan (1) Obstructive pneumonia: (2) Pleural effusion: (3) Metastatic cancer to lung: PLAN: Plan Patient is a 69-year-old gentleman with history of stage IV metastatic lung CA who presented with shortness of breath 1. Acute hypoxia ? CT demonstrated mild increase in the size of the left upper lobe/left hilar mass. Increased left pleural effusion. Increased left basilar atelectasis/consolidation. Increased cavitation in the leftlower lobe. Unchanged mediastinal and hilar lymphadenopathy. Mild increase in the size and number of multiple pulmonary nodules with the largest measuring 16 mm. Placed on supplemental oxygen with treatment of the underlying clinical etiology ? 03/04/2025; patient remains on supplemental oxygen plan is for patient to be assessed for home oxygen prior to being discharged ? 03/05/2025Patient has a plan is for patient to be discharged to dependent his [facility] oxygen [facility] ? 03/07/2025; patient oxygen was apparently delivered to the wrong address did explain to patient is best to wait till Saturday for case management to sort this out 2. Postobstructive pneumonia ?Patient managed with Unasyn. ? 03/04/2025; patient WBC count remains elevated 3. Acute congestive heart failure with decreased ejection fraction ? 2D echo obtained demonstrated moderate global left ventricular systolic dysfunction with EF of 35%. Patient was placed on diuretic therapy 4. Tachycardia?A-fib flutter with rapid ventricular response ? EKG reviewed and demonstrates presence of A-fib flutter? New diagnosis. Patient did receive Cardizem. Also metoprolol continued. Patient started on systemic anticoagulation with apixaban 2D echo from 03/01/2025 did show moderate global left ventricular systolic dysfunction. The left ventricular ejection fraction is 35 %. Stage 1 diastolic dysfunction.Mild (1+) tricuspid valve insufficiency. Plan is to continue to monitor on telemetry and if patient does not respond to initial management patientbe started on a Cardizem drip ? 03/07/2025; patient was started on Cardizem during the night. Plan is to wean off and start patienton p.o. Cardizem 5. Metastatic lung CA ? Patient has apparently failed immunotherapy. Care is at the [facility] patient is requesting to be transferred [facility] did explain to patient the best option would be for patient to be discharged after being assessed for home oxygen and then he can follow-up 7. Hyponatremia ? 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 Severe protein-calorie malnutrition in the context of chronic disease related to inadequate energy/oral ntake and increased energy expenditure ? Patient was seen in consultation by dietary recommendations reviewed 7. DVT prophylaxis ? Patient started on Lovenox CODE STATUS DNR CCA no intubation ? Consult was also placed to the palliative care team to discuss goals of care next 03/04/2025 patient seen much more cooperative compared to previously. Patient is scheduled to have a meeting with hospice service this afternoon. Decision regarding discharge made after the meeting ? 03/05/2025; patient declined hospice decision was made to discharge patient homewith plans for patient to follow-up with the palliative care team at the [facility] Time spent in the patient's overall evaluation,decision-making process, review of diagnostic data, adjustment of management, discussion with other providers, nursing nursing and ancillary staff involved in patient's care documentation 38 Minutes Charges/Coding Visit Charges Inpatient E&M: 01409 Subs Hosp L2 03/07/25 0919 Cosigner Signature (if applicable): CC: ~ Signed [facility]09-07-2025 Progress note Author Marissa Gallardo [facility] Note Date/Time March 07, 2025 2:02am [facility] Medical Records Department [facility] [place] [address] Progress Note - Hospitalist 03/06/252245 MR#: [id number] Acct: [id number] Name: EMETERIO CHENEY Rep #:[id number] : 1955 69 From: Marissa Gallardo MD PCP: [facility] Status:ADM IN Location: [place] [address] Hospitalist Note Patient with recurrent PAF RVR. BP 106/61, will trial low dose cardizem 10 mg x 1. 03/06/252245 <Electronically signed by Marissa Gallardo MD> Cosigner Signature (if applicable): CC: ~ Signed ADDENDUM by Dr. Marissa Gallardo MD on 03/07/25 at 0201 Addendum Rate improved transiently with the cardizem bolus, HR now recurrent RVR, patientsleeping. Will start cardizem drip. 03/07/25 020<Electronically signed by Marissa Gallardo MD> Cosigner Signature (if applicable): cc: ~* Signed [facility] Work Phone: 1(542) 719-201109-07-2025 Progress note [facility] Medical Records Department [address] [place] [address] Progress Note - Hospitalist 03/06/252245 MR#: [id number] Acct: [id number] Name: EMETERIO CHENEY Rep #:[id number] : 1955 69 From: Marissa Gallardo MD PCP: [facility] Status:ADM IN Location: [place] [address] Hospitalist Note Patient with recurrent PAF RVR. BP 106/61, will trial low dose cardizem 10 mg x 1. 03/06/252245 Cosigner Signature (if applicable): CC: ~ Signed ADDENDUM by Dr. Marissa Gallardo MD on 03/07/25 at 0201 Addendum Rate improved transiently with the cardizem bolus, HR now recurrent RVR, patientsleeping. Will start cardizem drip. 03/07/25 020 Cosigner Signature (if applicable): cc: ~* Signed [facility]09-06-2025 Progress note Author Zackery Soares [facility] Note Date/Time March 06, 2025 9:56am [facility] Medical Records Department [address] [place] [address] Progress Note - Hospitalist 03/06/25 0739 MR#: [id number] Acct: [id number] Name: EMETERIO CHENEY Rep #:[id number] : 1955 69 From: Zackery Soares MD PCP: [facility] Status:ADM IN Location: [place] [address] Reason for Visit Chief Complaint: Shortness of breath Subjective Subjective Patient seen his oxygen was not delivered the day prior. Per patient he is having a panic/anxiety attack this morning. His heart rate did jump up to 170 he did receive Cardizem bolus and his metoprolol given earlier. Also did add lorazepam as needed Objective Data Objective Data Vital Signs: Vital Signs Temp Pulse Resp BP Pulse Ox O2 Del Method O2 Flow Rate 97.0 F L 169 H 22 H 119/85 H 93 Nasal Cannula 2 03/06/25 06:15 03/06/25 07:25 03/06/25 07:25 03/06/25 06:15 03/06/25 06:52 03/06/25 06:52 03/06/25 06:52 Oxygen Flow Rate (L/min) 2 Oxygen Delivery Method Nasal Cannula Weight: 63.8 kg Body Mass Index (BMI) 20.2 Intake & Output: Intake and Output for Last 24 Hours 03/04/25 03/05/25 03/06/25 23:59 23:59 23:59 Intake Total 400 / 400 680 / 680 Output Total 3630 / 3630 2300 / 2650 750 / 750 Balance -3230 / -3230 -1620 / -1970 -750 / -750 Medical Nutrition Assessment Dietitian: Malnutrition Criteria Met Start: 03/02/25 08:20 Freq: Status: Active Protocol: Document 03/02/25 16:19 RMA (Rec: 03/02/25 16:19 RMA [id number]) Nutrition Malnutrition Evidence of Yes Malnutrition Exists Malnutrition (severe Chronic ): Evidenced By Suboptimal Energy Intake (Severe),Weight Loss (Severe), Physical Changes (Severe) Clinical Problem Chronic Disease or Condition Related Malnutrition Etiology Severe protein-calorie malnutrition in the context of chronic disease related to inadequate energy/oral intake and increased energy expenditure Signs/Symptoms as evidenced by ~15% unintentional body weight lossx 2 months; PO meeting less than 50% estimated nutrition needs x past 1 month; BMI 20.2; muscle wasting/fat depletion in the clavicle, face, arms and legs Status Active Problem Recommendation Dietitian Will liberalize diet to Regular. Recommendations/ Will add magic cup with lunch. Changes Will add 240mL ensure plus HP w/ breakfast and dinner tray. Additional ONS as needed. Lab / Micro Data 03/06/25 05:32 03/06/25 05:32 Labs: Laboratory Results - last 24 hr 03/06/25 05:32: WBC 13.1 H, RBC 3.78 L, Hgb 10.2 L, Hct 31.7 L, MCV 83.9, MCH 27.0, MCHC 32.2, RDW Std Deviation 47.2 H, RDW Coeff of Hai 15.6 H, Plt Count 449, MPV 9.3, Neut % (Auto) Not Reportable, Absolute Neuts (auto) 10.5 H, Absolute Lymphs (auto) 1.31, Total Counted 100, Neutrophils % (Manual) 80 H, Lymphocytes % (Manual) 10 L, Monocytes % (Manual) 8, Metamyelocytes % 1, Myelocytes % 1 H, Platelet Estimate ADEQUATE, Polychromasia RARE, Sodium 130 L, Potassium 3.8, Chloride 89 L, Carbon Dioxide 26.8, Anion Gap 14, BUN 18, Creatinine 0.74, Estim Creat Clear Calc 78.64, Est GFR (MDRD) Non-Af 98, BUN/Creatinine Ratio 23.7 H, Glucose 112 H, Calcium 9.0 Micro: Microbiology 03/01/25 05:57 Blood Culture (Wb) - Right Wrist Blood Culture - Preliminary No growth in 48 hours. 03/01/25 05:40 Blood Culture (Wb) - Right Wrist Blood Culture - Preliminary No growth in 48 hours. 03/01/25 21:02 Mucosa - Nasopharyngeal Respiratory Panel (PCR) - Final 03/01/25 21:48 Urine, Clean Catch Streptococcus pneumoniae Antigen (M - Final 03/01/25 21:48 Urine, Clean Catch Legionella Antigen - Final Rhythm Strip Rhythm Strip: Sinus Tach Rate: 109 Ectopy: PVC(s) and - (short run of SVT) Social Homelessness:: Sheltered Physical Exam Narrative GENERAL: cooperative but frail looking HEENT: Atraumatic; normocephalic EYES; Anicteric, Normal Conjunctiva NECK; supple, normal thyroid, RESPIRATORY: Diminished to auscultation CARDIOVASCULAR: Irregular S1-S2 tachycardic GI: soft, normoactive bowel sounds, abdominal hernia : No Renal angle tenderness; EXTREMITIES: No edema, no clubbing, MUSCULOSKELETAL: no muscle wasting NEURO: Awake; no lateralizing signs. SKIN: No Rash PSYCH; Flat affect Assessment & Plan Assessment/Plan (1) Obstructive pneumonia: (2) Pleural effusion: (3) Metastatic cancer to lung: PLAN: Plan Patient is a 69-year-old gentleman with history of stage IV metastatic lung CA who presented with shortness of breath 1. Acute hypoxia ? CT demonstrated mild increase in the size of the left upper lobe/left hilar mass. Increased left pleural effusion. Increased left basilar atelectasis/consolidation. Increased cavitation in the left lower lobe. Unchanged mediastinal and hilar lymphadenopathy. Mild increase in the size and number of multiple pulmonary nodules with the largest measuring 16 mm. Placed on supplemental oxygen with treatment of the underlying clinical etiology ? 03/04/2025; patient remains on supplemental oxygen plan is for patient to be assessed for home oxygen prior to being discharged ? 03/05/2025Patient has a plan is for patient to be discharged to dependent his home oxygen being set up and approved by the [facility] 2. Postobstructive pneumonia ?Patient managed with Unasyn. ? 03/04/2025; patient WBC count remains elevated 3. Acute congestive heart failure with decreased ejection fraction ? 2D echo obtained demonstrated moderate global left ventricular systolic dysfunction with EF of 35%. Patient was placed on diuretic therapy 4. Tachycardia?A-fib flutter with rapid ventricular response ? EKG reviewed and demonstrates presence of A-fib flutter? New diagnosis. Patient did receive Cardizem. Also metoprolol continued. Patient started on systemic anticoagulation with apixaban 2D echo from 03/01/2025 did show moderate global left ventricular systolic dysfunction. The left ventricular ejection fraction is 35 %. Stage 1 diastolic dysfunction.Mild (1+) tricuspid valve insufficiency. Plan is to continue to monitor on telemetry and if patient does not respond to initial management patient be started on a Cardizem drip 5. Metastatic lung CA ? Patient has apparently failed immunotherapy. Care is at the [facility] patient is [facility] to be transferred [facility] did explain to patient the best option would be for patient to be discharged after being assessed for home oxygen and then he can follow-up 7. Hyponatremia ? 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 Severe protein-calorie malnutrition in the context of chronic disease related to inadequate energy/oral ntake and increased energy expenditure ? Patient was seen in consultation by dietary recommendations reviewed 7. DVT prophylaxis ? Patient started on Lovenox CODE STATUS DNR CCA no intubation ? Consult was also placed to the palliative care team to discuss goals of care next 03/04/2025 patient seen much more cooperative compared to previously. Patient is scheduled to have a meeting with hospice service this afternoon. Decision regarding discharge made after the meeting ? 03/05/2025; patient declined hospice decision was made to discharge patient homewith plans for patient to follow-[facility] with [facility] Time spent in the patient's overall evaluation,decision-making process, review of diagnostic data, adjustment of management, discussion with other providers, nursing nursing and ancillary staff involved in patient's care documentation, 52 Minutes Charges/Coding Visit Charges Inpatient E&M: 21702 Subs Hosp L3 03/06/25 0956 <Electronically signed by Zackery Soares MD> Cosigner Signature (if applicable): CC: ~ Signed [facility] Work Phone: 1(739) 990-748809-06-2025 Progress note [facility] Medical Records Department [address] [place] [address] Progress Note - Hospitalist 03/06/25 0739 MR#: [id number] Acct: [id number] Name: EMETERIO CHENEY Rep #:[id number] : 1955 69 From: Zackery Soares MD PCP: [facility] Status:ADM IN Location: [place] [address] Reason for Visit Chief Complaint: Shortness of breath Subjective Subjective Patient seen his oxygen was not delivered the day prior. Per patient he is having a panic/anxiety attack this morning. His heart rate did jump up to 170 he did receive Cardizem bolus and his metoprolol given earlier. Also did add lorazepam as needed Objective Data Objective Data Vital Signs: Vital Signs Temp Pulse Resp BP Pulse Ox O2 Del Method O2 Flow Rate 97.0 F L 169 H 22 H 119/85 H 93 Nasal Cannula 2 03/06/25 06:15 03/06/25 07:25 03/06/25 07:25 03/06/25 06:15 03/06/25 06:52 03/06/25 06:52 03/06/25 06:52 Oxygen Flow Rate (L/min) 2 Oxygen Delivery Method Nasal Cannula Weight: 63.8 kg Body Mass Index (BMI) 20.2 Intake & Output: Intake and Output for Last 24 Hours 03/04/25 03/05/25 03/06/25 23:59 23:59 23:59 Intake Total 400 / 400 680 / 680 Output Total 3630 / 3630 2300 / 2650 750 / 750 Balance -3230 / -3230 -1620 / -1970 -750 / -750 Medical Nutrition Assessment Dietitian: Malnutrition Criteria Met Start: 03/02/25 08:20 Freq: Status: Active Protocol: Document 03/02/25 16:19 RMA (Rec: 03/02/25 16:19 RMA [id number]) Nutrition Malnutrition Evidence of Yes Malnutrition Exists Malnutrition (severe Chronic ): Evidenced By Suboptimal Energy Intake (Severe),Weight Loss (Severe), Physical Changes (Severe) Clinical Problem Chronic Disease or Condition Related Malnutrition Etiology Severe protein-calorie malnutrition in the context of chronic disease related to inadequate energy/oral intake and increased energy expenditure Signs/Symptoms as evidenced by ~15% unintentional body weight lossx 2 months; PO meeting less than 50% estimated nutrition needs x past 1 month; BMI 20.2; muscle wasting/fat depletion in the clavicle, face, arms and legs Status Active Problem Recommendation Dietitian Will liberalize diet to Regular. Recommendations/ Will add magic cup with lunch. Changes Will add 240mL ensure plus HP w/ breakfast and dinner tray. Additional ONS as needed. Lab / Micro Data 03/06/25 05:32 03/06/25 05:32 Labs: Laboratory Results - last 24 hr 03/06/25 05:32: WBC 13.1 H, RBC 3.78 L, Hgb 10.2 L, Hct 31.7 L, MCV 83.9, MCH 27.0, MCHC 32.2, RDW Std Deviation 47.2 H, RDW Coeff of Hai 15.6 H, Plt Count 449, MPV 9.3, Neut % (Auto) Not Reportable,Absolute Neuts (auto) 10.5 H, Absolute Lymphs (auto) 1.31, Total Counted 100, Neutrophils % (Manual) 80 H, Lymphocytes % (Manual) 10 L, Monocytes % (Manual) 8, Metamyelocytes % 1, Myelocytes % 1 H, Platelet Estimate ADEQUATE, Polychromasia RARE, Sodium 130 L, Potassium 3.8, Chloride 89 L, Carbon Dioxide 26.8, Anion Gap 14, BUN 18, Creatinine 0.74, Estim Creat Clear Calc 78.64, Est GFR (MDRD) Non-Af 98, BUN/Creatinine Ratio 23.7 H, Glucose 112 H, Calcium 9.0 Micro: Microbiology 03/01/25 05:57 Blood Culture (Wb) - Right Wrist Blood Culture - Preliminary No growth in 48 hours. 03/01/25 05:40 Blood Culture (Wb) - Right Wrist Blood Culture - Preliminary No growth in 48 hours. 03/01/25 21:02 Mucosa - Nasopharyngeal Respiratory Panel (PCR) - Final 03/01/25 21:48 Urine, Clean Catch Streptococcus pneumoniae Antigen (M - Final 03/01/25 21:48 Urine, Clean Catch Legionella Antigen - Final Rhythm Strip Rhythm Strip: Sinus Tach Rate: 109 Ectopy: PVC(s) and - (short run of SVT) Social Homelessness:: Sheltered Physical Exam Narrative GENERAL: cooperative but frail looking HEENT: Atraumatic; normocephalic EYES; Anicteric, Normal Conjunctiva NECK; supple, normal thyroid, RESPIRATORY: Diminished to auscultation CARDIOVASCULAR: Irregular S1-S2 tachycardic GI: soft, normoactive bowel sounds, abdominal hernia : No Renal angle tenderness; EXTREMITIES: No edema, no clubbing, MUSCULOSKELETAL: no muscle wasting NEURO: Awake; no lateralizing signs. SKIN: No Rash PSYCH; Flat affect Assessment & Plan Assessment/Plan (1) Obstructive pneumonia: (2) Pleural effusion: (3) Metastatic cancer to lung: PLAN: Plan Patient is a 69-year-old gentleman with history of stage IV metastatic lung CA who presented with shortness of breath 1. Acute hypoxia ? CT demonstrated mild increase in the size of the left upper lobe/left hilar mass. Increased left pleural effusion. Increased left basilar atelectasis/consolidation. Increased cavitation in the leftlower lobe. Unchanged mediastinal and hilar lymphadenopathy. Mild increase in the size and number of multiple pulmonary nodules with the largest measuring 16 mm. Placed on supplemental oxygen with treatment of the underlying clinical etiology ? 03/04/2025; patient remains on supplemental oxygen plan is for patient to be assessed for home oxygen prior to being discharged ? 03/05/2025Patient has a plan is for patient to be discharged to dependent his home oxygen being setup and approved by the [facility] 2. Postobstructive pneumonia ?Patient managed with Unasyn. ? 03/04/2025; patient WBC count remains elevated 3. Acute congestive heart failure with decreased ejection fraction ? 2D echo obtained demonstrated moderate global left ventricular systolic dysfunction with EF of 35%. Patient was placed on diuretic therapy 4. Tachycardia?A-fib flutter with rapid ventricular response ? EKG reviewed and demonstrates presence of A-fib flutter? New diagnosis. Patient did receive Cardizem. Also metoprolol continued. Patient started on systemic anticoagulation with apixaban 2D echo from 03/01/2025 did show moderate global left ventricular systolic dysfunction. The left ventricular ejection fraction is 35 %. Stage 1 diastolic dysfunction.Mild (1+) tricuspid valve insufficiency. Plan is to continue to monitor on telemetry and if patient does not respond to initial management patientbe started on a Cardizem drip 5. Metastatic lung CA ? Patient has apparently failed immunotherapy. Care is at the [facility] patient is [facility] to be [facility] did explain to patient the best option would be for patient to be discharged after being assessed for home oxygen and then he can follow-up 7. Hyponatremia ? 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 Severe protein-calorie malnutrition in the context of chronic disease related to inadequate energy/oral ntake and increased energy expenditure ? Patient was seen in consultation by dietary recommendations reviewed 7. DVT prophylaxis ? Patient started on Lovenox CODE STATUS DNR CCA no intubation ? Consult was also placed to the palliative care team to discuss goals of care next 03/04/2025 patient seen much more cooperative compared to previously. Patient is scheduled to have a meeting with hospice service this afternoon. Decision regarding discharge made after the meeting ? 03/05/2025; patient declined hospice decision was made to discharge patient homewith plans for patient to follow-up with the palliative care team at the [facility] Time spent in the patient's overall evaluation,decision-making process, review of diagnostic data, adjustment of management, discussion with other providers, nursing nursing and ancillary staff involved in patient's care documentation, 52 Minutes Charges/Coding Visit Charges Inpatient E&M: 99241 Subs Hosp L3 03/06/2556 Cosigner Signature (if applicable): CC: ~ Signed [facility]09-06-2025 Progress note Author Marissa Sami [facility] Note Date/Time March 06, 2025 6:11am [facility] Medical Records Department [address] [place] [address] Progress Note - Hospitalist 03/06/25610 MR#: [id number] Acct: [id number] Name: EMETERIO CHENEY Rep #:[id number] : 1955 69 From: Marissa Gallardo MD PCP: [facility] Status:ADM IN Location: [place] [address] Hospitalist Note Patient with onset of tachycardia, EKG with ? PAF but uncertain given rate, willadminister cardizem 10 mg IV x 1. 03/06/25610 <Electronically signed by Marissa Gallardo MD> Cosigner Signature (if applicable): CC: ~ Signed [facility] Work Phone: 1(438) 199-467109-06-2025 Progress note [facility] Medical Records Department [address] [facility] [place] [address] Progress Note - Hospitalist 03/06/25610 MR#: [id number] Acct: [id number] Name: EMETERIO CHENEY Rep #:[id number] : 1955 69 From: Marissa Gallardo MD PCP: [facility] Status:ADM IN Location: [place] [address] Hospitalist Note Patient with onset of tachycardia, EKG with ? PAF but uncertain given rate, willadminister mbzczryc45 mg IV x 1. 03/06/25610 Cosigner Signature (if applicable): CC: ~ Signed [facility]09-05-2025 Progress note Author Yasmine Virgen [facility] Note Date/Time March 05, 2025 7:59pm [facility] Medical Records Department [address] [place] [address] Progress Note - Hospitalist 03/05/251956 MR#: [id number] Acct: [id number] Name: EMETERIO CHENEY Rep #:[id number] : 1955 69 From: Yasmine Canales [facility] Status:ADM IN Location: [place] [address] Hospitalist Note Notified by nrs that the [facility] has not delivered the pt's home O2 as of yet, requiring prolonged stay. 03/05/251958 <Electronically signed by Yasmine GREEN> Cosigner Signature (if applicable): CC: ~ Signed [facility] Work Phone: 1(319) 917-245009-05-2025 Progress note [facility] Medical Records Department [address] [place] [address] Progress Note - Hospitalist 03/05/251956 MR#: [id number] Acct: [id number] Name: EMETERIO CHENEY Rep #:[id number] : 1955 69 From: Yasmine Canales [facility] Status:ADM IN Location: [place] [address] Hospitalist Note Notified by nrs that the [facility] has not delivered the pt's home O2 as of yet, requiring prolonged stay. 03/05/251958 Cosigner Signature (if applicable): CC: ~ Signed [facility]09-05-2025 Progress note Author [facility]ery [facility] Note Date/Time March 05, 2025 1:49pm [facility] Medical Records Department [address] [place] [address] Progress Note - Hospitalist 03/05/25 1348 MR#: [id number] Acct: [id number] Name: EMETERIO CHENEY Rep #:[id number] : 1955 69 From: Zakcery Soares MD [facility]: [facility] Status:ADM IN Location: [place] [address] Reason for Visit Chief Complaint: Shortness of breath Subjective Subjective Patient has a plan is for patient to be discharged to dependent his home oxygen being set up and approved by the [facility] Objective Data Objective Data Vital Signs: Vital Signs Temp Pulse Resp BP Pulse Ox O2 Del Method O2 Flow Rate 98.1 F 112 H 18 124/83 H 95 Nasal Cannula 2 03/05/25 09:58 03/05/25 10:01 03/05/25 09:58 03/05/25 10:01 03/05/25 09:58 03/05/25 09:58 03/05/25 09:58 Oxygen Flow Rate (L/min) 2 Oxygen Delivery Method Nasal Cannula Weight: 63.8 kg Body Mass Index (BMI) 20.2 Intake & Output: Intake and Output for Last 24 Hours 03/03/25 03/04/25 03/05/25 23:59 23:59 23:59 Intake Total 675 / 675 400 / 400 200 / 200 Output Total 2500 / 3000 3630 / 3630 200 / 200 Balance -1825 / -2325 -3230 / -3230 0 / 0 Medical Nutrition Assessment Dietitian: Malnutrition Criteria Met Start: 03/02/25 08:20 Freq: Status: Active Protocol: Document 03/02/25 16:19 RMA (Rec: 03/02/25 16:19 RMA [id number]) Nutrition Malnutrition Evidence of Yes Malnutrition Exists Malnutrition (severe Chronic ): Evidenced By Suboptimal Energy Intake (Severe),Weight Loss (Severe), Physical Changes (Severe) Clinical Problem Chronic Disease or Condition Related Malnutrition Etiology Severe protein-calorie malnutrition in the context of chronic disease related to inadequate energy/oral intake and increased energy expenditure Signs/Symptoms as evidenced by ~15% unintentional body weight lossx 2 months; PO meeting less than 50% estimated nutrition needs x past 1 month; BMI 20.2; muscle wasting/fat depletion in the clavicle, face, arms and legs Status Active Problem Recommendation Dietitian Will liberalize diet to Regular. Recommendations/ Will add magic cup with lunch. Changes Will add 240mL ensure plus HP w/ breakfast and dinner tray. Additional ONS as needed. Lab / Micro Data 03/05/25 04:55 03/05/25 04:55 Labs: Laboratory Results - last 24 hr 03/05/25 04:55: WBC 11.5 H, RBC 3.63 L, Hgb 9.8 L, Hct 30.8 L, MCV 84.8, MCH 27.0, MCHC 31.8 L, RDW Std Deviation 49.0 H, RDW Coeff of Hai 15.7 H, Plt Count 464 H, MPV 9.6, Neut % (Auto) Not Reportable, Absolute Neuts (auto) 9.8 H, Absolute Lymphs (auto) 1.50, Total Counted 100, Neutrophils % (Manual) 83 H, Band Neutrophils % 2, Lymphocytes % (Manual) 13 L, Monocytes % (Manual) 2, Platelet Estimate SLT INC, RBC Morphology NORM C+C, Sodium 133, Potassium 3.2 L,Chloride 90 L, Carbon Dioxide 29.7, Anion Gap 13, BUN 17, Creatinine 0.81, EstimCreat Clear Calc 77.67, Est GFR (MDRD) Non-Af 95, BUN/Creatinine Ratio 20.3 H, Glucose 82, Calcium 8.9 Micro: Microbiology 03/01/25 05:57 Blood Culture (Wb) - Right Wrist Blood Culture - Preliminary No growth in 48 hours. 03/01/25 05:40 Blood Culture (Wb) - Right Wrist Blood Culture - Preliminary No growth in 48 hours. 03/01/25 21:02 Mucosa - Nasopharyngeal Respiratory Panel (PCR) - Final 03/01/25 21:48 Urine, Clean Catch Streptococcus pneumoniae Antigen (M - Final 03/01/25 21:48 Urine, Clean Catch Legionella Antigen - Final Rhythm Strip Rhythm Strip: Sinus Tach Rate: 109 Ectopy: PVC(s) and - (short run of SVT) Social Homelessness:: Sheltered Physical Exam Narrative GENERAL: cooperative but frail looking HEENT: Atraumatic; normocephalic EYES; Anicteric, Normal Conjunctiva NECK; supple, normal thyroid, RESPIRATORY: Diminished to auscultation CARDIOVASCULAR: Regular S1 S2, GI: soft, normoactive bowel sounds, : No Renal angle tenderness; EXTREMITIES: No edema, no clubbing, MUSCULOSKELETAL: no muscle wasting NEURO: Awake; no lateralizing signs. SKIN: No Rash PSYCH; Flat affect Assessment & Plan Assessment/Plan (1) Obstructive pneumonia: (2) Pleural effusion: (3) Metastatic cancer to lung: PLAN: Plan Patient is a 69-year-old gentleman with history of stage IV metastatic lung CA who presented with shortness of breath 1. Acute hypoxia ? CT demonstrated mild increase in the size of the left upper lobe/left hilar mass. Increased left pleural effusion. Increased left basilar atelectasis/consolidation. Increased cavitation in the left lower lobe. Unchanged mediastinal and hilar lymphadenopathy. Mild increase in the size and number of multiple pulmonary nodules with the largest measuring 16 mm. Placed on supplemental oxygen with treatment of the underlying clinical etiology ? 03/04/2025; patient remains on supplemental oxygen plan is for patient to be assessed for home oxygen prior to being discharged ? 03/05/2025Patient has a plan is for patient to be discharged to dependent his home oxygen being set up and approved by the [facility] 2. Postobstructive pneumonia ?Patient managed with Unasyn. ? 03/04/2025; patient WBC count remains elevated 3. Acute congestive heart failure with decreased ejection fraction ? 2D echo obtained demonstrated moderate global left ventricular systolic dysfunction with EF of 35%. Patient was placed on diuretic therapy ? 4. Metastatic lung CA ? Patient has apparently failed immunotherapy. Care is at the [facility] patient is requesting to be transferred [facility] did explain to patient the best option would be for patient to be discharged after being assessed for home oxygen and then he can follow-up 5. 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 Severe protein-calorie malnutrition in the context of chronic disease related to inadequate energy/oral ntake and increased energy expenditure ? Patient was seen in consultation by dietary recommendations reviewed 7. DVT prophylaxis ? Patient started on Lovenox CODE STATUS DNR CCA no intubation ? Consult was also placed to the palliative care team to discuss goals of care next 03/04/2025 patient seen much more cooperative compared to previously. Patient is scheduled to have a meeting with hospice service this afternoon. Decision regarding discharge made after the meeting ? 03/05/2025; patient declined hospice decision was made to discharge patient homewith plans for patient to follow-up with the palliative care team at the [facility] Time spent in the patient's overall evaluation,decision-making process, review of diagnostic data, adjustment of management, discussion with other providers, nursing nursing and ancillary staff involved in patient's care documentation, 36Minutes Charges/Coding Visit Charges Inpatient E&M: 12781 Subs Hosp L2 03/05/25 1349 <Electronically signed by Zackery Soares MD> Cosigner Signature (if applicable): CC: ~ Signed [facility] Work Phone: 1(985) 404-504809-05-2025 Hospital Discharge instructionsAdditional Instructions [facility]: [facility]: 1(250) 633-133809-05-2025 Progress note [facility] Medical Records Department [address] [place] [address] Progress Note - Hospitalist 03/05/25 1348 MR#: [id number] Acct: [id number] Name: EMETERIO CHENEY Rep #:[id number] : 1955 69 From: Zackery Soares MD [facility] Status:ADM IN Location: [place] [address] Reason for Visit Chief Complaint: Shortness of breath Subjective Subjective Patient has a plan is for patient to be discharged to dependent his home oxygen being set up and approved by the [facility] Objective Data Objective Data Vital Signs: Vital Signs Temp Pulse Resp BP Pulse Ox O2 Del Method O2 Flow Rate 98.1 F 112 H 18 124/83 H 95 Nasal Cannula 2 03/05/25 09:58 03/05/25 10:01 03/05/25 09:58 03/05/25 10:01 03/05/25 09:58 03/05/25 09:58 03/05/25 09:58 Oxygen Flow Rate (L/min) 2 Oxygen Delivery Method Nasal Cannula Weight: 63.8 kg Body Mass Index (BMI) 20.2 Intake & Output: Intake and Output for Last 24 Hours 03/03/25 03/04/25 03/05/25 23:59 23:59 23:59 Intake Total 675 / 675 400 / 400 200 / 200 Output Total 2500 / 3000 3630 / 3630 200 / 200 Balance -1825 / -2325 -3230 / -3230 0 / 0 Medical Nutrition Assessment Dietitian: Malnutrition Criteria Met Start: 03/02/25 08:20 Freq: Status: Active Protocol: Document 03/02/25 16:19 RMA (Rec: 03/02/25 16:19 RMA [id number]) Nutrition Malnutrition Evidence of Yes Malnutrition Exists Malnutrition (severe Chronic ): Evidenced By Suboptimal Energy Intake (Severe),Weight Loss (Severe), Physical Changes (Severe) Clinical Problem Chronic Disease or Condition Related Malnutrition Etiology Severe protein-calorie malnutrition in the context of chronic disease related to inadequate energy/oral intake and increased energy expenditure Signs/Symptoms as evidenced by ~15% unintentional body weight lossx 2 months; PO meeting less than 50% estimated nutrition needs x past 1 month; BMI 20.2; muscle wasting/fat depletion in the clavicle, face, arms and legs Status Active Problem Recommendation Dietitian Will liberalize diet to Regular. Recommendations/ Will add magic cup with lunch. Changes Will add 240mL ensure plus HP w/ breakfast and dinner tray. Additional ONS as needed. Lab / Micro Data 03/05/25 04:55 03/05/25 04:55 Labs: Laboratory Results - last 24 hr 03/05/25 04:55: WBC 11.5 H, RBC 3.63 L, Hgb 9.8 L, Hct 30.8 L, MCV 84.8, MCH 27.0, MCHC 31.8 L, RDWStd Deviation 49.0 H, RDW Coeff of Hai 15.7 H, Plt Count 464 H, MPV 9.6, Neut % (Auto) Not Reportable, Absolute Neuts (auto) 9.8 H, Absolute Lymphs (auto) 1.50, Total Counted 100, Neutrophils % (Manual) 83 H, Band Neutrophils % 2, Lymphocytes % (Manual) 13 L, Monocytes % (Manual) 2, Platelet Estimate SLT INC, RBC Morphology NORM C+C, Sodium 133, Potassium 3.2 L,Chloride 90 L, Carbon Dioxide 29.7,Anion Gap 13, BUN 17, Creatinine 0.81, EstimCreat Clear Calc 77.67, Est GFR (MDRD) Non-Af 95, BUN/Creatinine Ratio 20.3 H, Glucose 82, Calcium 8.9 Micro: Microbiology 03/01/25 05:57 Blood Culture (Wb) - Right Wrist Blood Culture - Preliminary No growth in 48 hours. 03/01/25 05:40 Blood Culture (Wb) - Right Wrist Blood Culture - Preliminary No growth in 48 hours. 03/01/25 21:02 Mucosa - Nasopharyngeal Respiratory Panel (PCR) - Final 03/01/25 21:48 Urine, Clean Catch Streptococcus pneumoniae Antigen (M - Final 03/01/25 21:48 Urine, Clean Catch Legionella Antigen - Final Rhythm Strip Rhythm Strip: Sinus Tach Rate: 109 Ectopy: PVC(s) and - (short run of SVT) Social Homelessness:: Sheltered Physical Exam Narrative GENERAL: cooperative but frail looking HEENT: Atraumatic; normocephalic EYES; Anicteric, Normal Conjunctiva NECK; supple, normal thyroid, RESPIRATORY: Diminished to auscultation CARDIOVASCULAR: Regular S1 S2, GI: soft, normoactive bowel sounds, : No Renal angle tenderness; EXTREMITIES: No edema, no clubbing, MUSCULOSKELETAL: no muscle wasting NEURO: Awake; no lateralizing signs. SKIN: No Rash PSYCH; Flat affect Assessment & Plan Assessment/Plan (1) Obstructive pneumonia: (2) Pleural effusion: (3) Metastatic cancer to lung: PLAN: Plan Patient is a 69-year-old gentleman with history of stage IV metastatic lung CA who presented with shortness of breath 1. Acute hypoxia ? CT demonstrated mild increase in the size of the left upper lobe/left hilar mass. Increased left pleural effusion. Increased left basilar atelectasis/consolidation. Increased cavitation in the leftlower lobe. Unchanged mediastinal and hilar lymphadenopathy. Mild increase in the size and number of multiple pulmonary nodules with the largest measuring 16 mm. Placed on supplemental oxygen with treatment of the underlying clinical etiology ? 03/04/2025; patient remains on supplemental oxygen plan is for patient to be assessed for home oxygen prior to being discharged ? 03/05/2025Patient has a plan is for patient to be discharged to dependent his home oxygen being setup and approved by the [facility] 2. Postobstructive pneumonia ?Patient managed with Unasyn. ? 03/04/2025; patient WBC count remains elevated 3. Acute congestive heart failure with decreased ejection fraction ? 2D echo obtained demonstrated moderate global left ventricular systolic dysfunction with EF of 35%. Patient was placed on diuretic therapy ? 4. Metastatic lung CA ? Patient has apparently failed immunotherapy. Care is at the [facility] patient is requesting to be transferred to the [facility] did explain to patient the best option would be for patient to be discharged after being assessed for home oxygen and then he can follow-up 5. 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 Severe protein-calorie malnutrition in the context of chronic disease related to inadequate energy/oral ntake and increased energy expenditure ? Patient was seen in consultation by dietary recommendations reviewed 7. DVT prophylaxis ? Patient started on Lovenox CODE STATUS DNR CCA no intubation ? Consult was also placed to the palliative care team to discuss goals of care next 03/04/2025 patient seen much more cooperative compared to previously. Patient is scheduled to have a meeting with hospice service this afternoon. Decision regarding discharge made after the meeting ? 03/05/2025; patient declined hospice decision was made to discharge patient homewith plans for patient to follow-up with the palliative care team at the [facility] Time spent in the patient's overall evaluation,decision-making process, review of diagnostic data, adjustment of management, discussion with other providers, nursing nursing and ancillary staff involved in patient's care documentation, 36Minutes Charges/Coding Visit Charges Inpatient E&M: 85404 Subs Hosp L2 03/05/25 1349 Cosigner Signature (if applicable): CC: ~ Signed [facility]09-05-2025 Consult note Author Kelsy Dugan [facility] Note Date/Time March 05, 2025 11:27am [facility] Medical Records Department [address] [place] [address] Counseling Note - Pharmacy 03/05/25 1125 MR#: [id number] Acct: [id number] Name: EMETERIO CHENEY Rep #:[id number] : 1955 69 From: Kelsy Dugan [facility]CP: [facility] Status:ADM IN Y Location: [place] [address] Pharmacy [facility] Counseling Pharmacy Service has performed discharge medication reconciliation and counseling for this patient. Patient wanted medications sent to [facility]. This [facility] spoke to Arianna at [facility] and requested all 5 medications to be transferred from [facility]. Preferred pharmacy updated in chart. 1. AUGMENTIN 875/125MG PO BID X 7 DAYS 2. FUROSEMIDE 40MG PO DAILY 3. MUCINEX 1200MG PO BID 4. POTASSIUM CHLORIDE 20MEQ PO BIDCM 5. SENNA/DOCUSATE 2T PO BID The patient's discharge medication list was reviewed for discrepancies and discrepancies were resolved. The patient was counseled on the following discharge medications and changes in medications for homegoing were reviewed. The Reason for Use, instructions for use, and potential side effects were reviewed for all new medications. The patient's questions regarding all of their medications were answered. The patient was able to verbally demonstrate an understanding of their dischargemedications. Medications at Discharge Home Medications dexamethasone 4 mg tablet 4 mg PO DAILY unknown 03/02/25 empagliflozin 25 mg tablet (Jardiance) 12.5 mg PO DAILY unknown 03/02/25 metoprolol succinate 25 mg tablet,extended release 24 hr (Toprol XL) 25 mg PO DAILY unknown 03/02/25 ondansetron 8 mg disintegrating tablet 8 mg PO Q8H nausea 03/02/25 oxycodone 5 mg capsule 5 mg PO Q4H pain 03/02/25 amoxicillin 875 mg-potassium clavulanate 125 mg tablet 1 tab PO BID 7 days #14 tabs 03/05/25 furosemide 40 mg tablet 40 mg PO DAILY #30 tabs 03/05/25 guaifenesin 1,200 mg tablet, extended release 12 hr (Mucus Relief ER) 1,200 mg PO BID #60 tabs 03/05/25 potassium chloride 20 mEq tablet,extended release(part/cryst) 20 meq PO BIDCM #60 tabs 03/05/25 sennosides 8.6 mg-docusate sodium 50 mg tablet (Stimulant Laxative Plus) 2 tab PO BID #60 tabs 03/05/25 03/05/25 1127 <Electronically signed by Kelsy Dugan> Date _ Kelsy Dugan Cosigner Signature (if applicable): Date CC: ~ Signed [facility] Work Phone: 1(368) 907-236609-05-2025 Progress note Author Leeann bauman [facility] Note Date/Time March 05, 2025 9:35am [facility] Medical Records Department [address] [place] [id number] Progress Note - Palliative 03/05/25916 MR#: [id number] Acct: [id number] Name: EMETERIO CHENEY Rep #:[id number] : 1955 69 From: Leeann Wu WIRE ROPE SLING MAKEREliel [facility]CP: [facility] Status:ADM IN Location: [facility] [id number] Subjective Subjective Subjective Subjective 03/05/25: Prior to meeting with the pt at bedside, I reviewed documentation from overnight. I also talked to DAXA/MEL about meeting the pt had with hospice yesterday. I then met with Addy at bedside. When I initially entered the room, he was very agitated and stated that the hopsice meeting was crap. I did ask him to explain. He stated that he is unable to continue to seek treatment while on hospice. I did explain to him that he can continue to seek eastern medicine treatments that he had discussed before but that anything that would pull from his medicare, would not be allowed. He states understanding andstated that his philosophy and that of the hospice did not gel well. I did state understanding . We then discussed what his hopes are going forward. He is hoping to find an oncologist that can continue with treatments, even if they are trials. He wants to continue with meditation, diet and activity as well as other modalities that he can assist with the possibility of healing. He is agreeing to follow up with palliative care provider Dr. Berna Jiménez, whom he is established. I will contact her today for a warm handoff. All questions answered. Pt is waiting for O2 delivery at home for discharge. 03/04/25: I did meet with Addy in his room. He was in [facility] and Deyanira was also in the room for support. Pt did report having 9/10 pain last night. Iwas contacted to confirm that the pt takes Oxy 10mg PO for severe pain. Addy endorsed that he feels that going home with hospice is his best option. He plans to continue adjunct modalities to his traditional medical practices. He does acknowledge some SOB this morning but states manageable He was, initially speaking in 3-4 word sentences but as he became distracted with our discussion, I noted his breathing to ease and he was able to speak in complete sentences. He plans to continue writing a memoir about his dealing with cancer diagnosis. Addy is a deep thinker and I did encourage him to continue to do the things that brings him mick. All questions answered. 03/03/25: Creatinine is daily at bedside I did review documentation and labs from overnight. I did note that he has had an improvement in his WBCs from 13.5-11.4. Slight decrease in his hemoglobin hematocrit from 10.5-9.8 today and 32.6yesterday to 30.3 today. Platelets continue to be elevated at 491. He is slightly hyponatremic with a sodium of 131. BUN is slightly elevated at 20 from16 yesterday. Patient continues to receive Lasix. I then met with Emeterio finney. He was sitting up in his bed stabilizing his trunk well, away from theback of the bed. Family initially wanted to speak about alternative healing methods for his cancer. I do support his utilization of Eastern and Ayurvedic medicine to assist with his healing but I also discussed comfort measures while not receiving traditional Western medicine such as chemotherapy or radiation. Idid discuss the possibility of hospice services for comfort in addition to his nontraditional healing practices. He did state that he will think about it as he thought it may be a good adjunct if he is unable to receive any further treatment from a Western medicine standpoint. He did state that he would like to receive all of his care from the [facility] as he is embedded with them. He is hopeful that he will be able to find a provider that is willing to treat his cancer. We then discussed what the typical criteria is for continued Western medicine treatment in which Addy states understanding. I then discussed that yesterday he refused PT and OT and did not want to get the bed. I explained to him that he needs to be able to get out of the bed and utilize a walker if he wants any chance in receiving continue Western medicine. Addy did state understanding and states that he will work with PT and OT and is mad at himself or refusing yesterday. He expressed frustration over the management of his painmedications. He states that at home he takes oxycodone 2.5 mg or 5 mg up to 10 mg every 4 hours depending on symptoms and pain. I did state understanding and explained that that is a typical palliative order to utilize the lowest dose possible in managing symptoms. I do recommend oxycodone 2.5 mg p.o. every 4 hours as needed for mild pain 1-3 or mild shortness of breath, oxycodone 5 mg p.o. every 4 hours as needed for moderate pain 4-6 and/or moderate shortness of breath and oxycodone 10 mg p.o. every 4 hours as needed for severe pain 7-10 and/or severe shortness of breath. An attempt to meet Addy where he is at, will continue to discuss adjunct treatments and what that would look like for him going forward from a nutritional standpoint as well as his mind and spirit. Addy plans to more aggressively implement meditation, guided imagery and relaxation and exercises. He does note that his symptoms get worse when he becomes anxious or sad having a bad day. States good understanding of how his mind has been affecting symptoms. I did recommend that he finds a good balance between his Eastern philosophy and Western medicine which he states agreement. He does state that he is not against initiating hospice for comfort and that he would like to receive those services to through the [facility] and would like to speak to them first. He does have a palliative care provider at the [facility]. I did encourage him to reachout to them sooner rather than later to get assistance with managing his symptoms. I then spoke with Dr. Loya, to update him [facility] He recommended the possibility of discharge to home and then have the patient reach out to his primary care providers for next steps at the [facility]. Lastly, I did speak to Addy about POA and the importance of establishing a POA going forward. Particularly, because he would like his fiVania caputoanita to be his decision-maker. He plans to initiate them as soon as he is discharged. Addy did take lots of notes during our conversation and asked very good questions, which were answered. Palliative care will continue to follow for support as the patient's clinical picture evolves. 03/02/25Prior to meeting with the pt at bedside, I reviewed previous documentation, labs, radiological studies and well as diagnostic studies. I then met with the pt at bedside. I introduced myself to both Addy and his fiance , Deyanira and the concept of palliative care, which they voluntarily accepted our services. I ask Addy what he knew of his diagnosis, in which he confirmed that his oncologist stated that he has completed 3 rounds of immunotherapy with no improvement in his cancer. They are not convinced that hewill receive any further treatment from his oncologist. Addy continually talks about various doctors that have had great success with treatments Dr Segal and out of [place]. I did ask if he has reached out to these doctors and been accepted as a patient? He stated that he has not but states that he is going to have them contact the doctors here and they can tell them what to do. I explained to him that it typically doesn't work that way. He then talked about going to a cancer treatment center in [place]. Currently, he isnot well enough for travel and I did ask him how he plans to get there. He did not have a response, at this time. I am concerned that he may be experiencing denial in his grief process. He did endorse that he spends 90% of his time in bed, while at home. I then discussed his Echocardiogram and gave he and Marine overview of what it said with explanations. They both stated understanding. I explained his EF of 35% and elevated troponins x 3 of 36, 34 and 29. BNP of 2433, Along with his metastatic stage IV lung cancer without receiving any further treatments, would make him eligible for hospice. Both Addy and Deyanira stated that they don't feel they are ready for that. I did offer supportive listening and allowed them to change the subject and followed their trajectory. We did discuss the fact that he is very weak and will, most likely, not be a candidate for continued therapies unless he can gain some strength. He is open to continued PT/OT services to get stronger. He is currently waiting for a bed at the [facility] and states that he feels his symptoms are being controlled well, at this time. He is open to further conversations and Palliative care will continue to follow. All questions answered. Per hospitalist EMETERIO CHENEY, is a 69y/o male w/ hx of stage IV lung cancer notreceiving any treatment because he was not responding to immunotherapy and symptomatic anemia who presented [facility] ED 03/01/2025 for shortness of breath especially in the mornings but over the past 3 days he has continued to worsen, also has mild wheezing and coughing. Also notes the past 2weeks he has had increased swelling in his lower extremities. In the ED patientafebrile, patient with variable heart rate anywhere from 90s to 120s, blood pressure initially 106/92, respiratory rate 18 patient 98% on 3 L nasal cannula with a respiratory rate of 19. CBC with white blood cell count 14.4, [id number] and platelet count 459. BMP with a sodium of 126, up from 120 in December, BUNof 11 and creatinine 0.65, Trop of 36 with 4-hour Trop of 29, and a proBNP of 2433. Lactic acid within normal limits. CTA obtained and showed mild increase in size of patient's left upper lobe/left hilar mass with increased cavitation consolidation as well as left pleural effusion, mild increase in size and numberof pulmonary nodules, unchanged multifocal compression of the left pulmonary artery and branches. ED physician was concern for postobstructive pneumonia andfluid overload, patient received Rocephin and azithromycin as well as IV Lasix in the ED. [facility] with [facility] and was supposed to be transferred howeverno beds for prolonged amount of time and [facility] with [facility] to our institution given lack of bed availability so hospitalist contacted for admission. Patient evaluated bedside. Patient reports he is still having shortness of breath but feels better than when he first arrived especially sincehe has been pain off fluid. He notes that he has been having shortness of breath and cough for a year and was diagnosed with stage IV lung cancer, usuallyhe short of breath when he wakes up in the morning but then will improve throughout the day and some days will not feel too bad at all over the past 3 days he has not been improving throughout the day, does cough but has difficultyproducing any sputum, also notes leg swelling for the past 2 weeks. He reports before his lung cancer diagnosis he had never been hospitalized and did not takeany medications, denies smoking, only thing he takes at home currently is oxycodone as needed since his diagnosis. Denies any breathing treatments at home and does not wear home oxygen. He denies any chest pain, no fever at home,occasionally gets some abdominal pain but nothing significant, had been having problems with constipation but that has resolved, denies nausea. Denies problems with urination Objective Data Objective Data Vital Signs: Vital Signs Temp Pulse Resp BP Pulse Ox O2 Del Method O2 Flow Rate 98.3 F 109 H 22 H 104/77 93 Nasal Cannula 2 03/05/25 04:58 03/05/25 06:47 03/05/25 06:47 03/05/25 04:58 03/05/25 06:47 03/05/25 06:47 03/05/25 06:47 Oxygen Flow Rate (L/min) 2 Oxygen Delivery Method Nasal Cannula Weight: 140 lb 10.479 oz Body Mass Index (BMI) 20.2 Intake & Output: Intake and Output for Last 24 Hours 03/03/25 03/04/25 03/05/25 23:59 23:59 23:59 Intake Total 675 / 675 400 / 400 200 / 200 Output Total 2500 / 3000 3630 / 3630 200 / 200 Balance -1825 / -2325 -3230 / -3230 0 / 0 Medical Nutrition Assessment Dietitian: Malnutrition Criteria Met Start: 03/02/25 08:20 Freq: Status: Active Protocol: Document 03/02/25 16:19 RMA (Rec: 03/02/25 16:19 RMA [id number]) Nutrition Malnutrition Evidence of Yes Malnutrition Exists Malnutrition (severe Chronic ): Evidenced By Suboptimal Energy Intake (Severe),Weight Loss (Severe), Physical Changes (Severe) Clinical Problem Chronic Disease or Condition Related Malnutrition Etiology Severe protein-calorie malnutrition in the context of chronic disease related to inadequate energy/oral intake and increased energy expenditure Signs/Symptoms as evidenced by ~15% unintentional body weight lossx 2 months; PO meeting less than 50% estimated nutrition needs x past 1 month; BMI 20.2; muscle wasting/fat depletion in the clavicle, face, arms and legs Status Active Problem Recommendation Dietitian Will liberalize diet to Regular. Recommendations/ Will add magic cup with lunch. Changes Will add 240mL ensure plus HP w/ breakfast and dinner tray. Additional ONS as needed. Lab / Micro Data Lab results narrative: potassium is low at 3.2. Recommend replacement 03/05/25 04:55 03/05/25 04:55 Labs: Laboratory Results - last 24 hr 03/05/25 04:55: WBC 11.5 H, RBC 3.63 L, Hgb 9.8 L, Hct 30.8 L, MCV 84.8, MCH 27.0, MCHC 31.8 L, RDW Std Deviation 49.0 H, RDW Coeff of Hai 15.7 H, Plt Count 464 H, MPV 9.6, Neut % (Auto) Not Reportable, Absolute Neuts (auto) 9.8 H, Absolute Lymphs (auto) 1.50, Total Counted 100, Neutrophils % (Manual) 83 H, Band Neutrophils % 2, Lymphocytes % (Manual) 13 L, Monocytes % (Manual) 2, Platelet Estimate SLT INC, RBC Morphology NORM C+C, Sodium 133, Potassium 3.2 L,Chloride 90 L, Carbon Dioxide 29.7, Anion Gap 13, BUN 17, Creatinine 0.81, EstimCreat Clear Calc 77.67, Est GFR (MDRD) Non-Af 95, BUN/Creatinine Ratio 20.3 H, Glucose 82, Calcium 8.9 Micro: Microbiology 03/01/25 05:57 Blood Culture (Wb) - Right Wrist Blood Culture - Preliminary No growth in 48 hours. 03/01/25 05:40 Blood Culture (Wb) - Right Wrist Blood Culture - Preliminary No growth in 48 hours. 03/01/25 21:02 Mucosa - Nasopharyngeal Respiratory Panel (PCR) - Final 03/01/25 21:48 Urine, Clean Catch Streptococcus pneumoniae Antigen (M - Final 03/01/25 21:48 Urine, Clean Catch Legionella Antigen - Final Rhythm Strip Rhythm Strip: Sinus Tach Rate: 109 Ectopy: PVC(s) and - (short run of SVT) Social Homelessness:: Sheltered Physical Exam Narrative ROS as per HPI except that the pt is complaining of cough and mild SOB. O2 is in place. Const oriented x3 General Appearance: cooperative Orientation / Consciousness: awake, oriented to person, oriented to place and oriented to time Exam Limitations: no limitations Nutritional Appearance: cachectic and thin HEENT normocephalic Eyes PERRL Eyes Narrative: corrective lenses Neck full ROM Resp no use of accessory muscles Auscultation: wheezes and diminished lung sounds Cardio regular rhythm Rate: tachycardic GI normal to inspection, nondistended, normoactive bowel sounds Extremity normal to inspection Skin no rashes or lesions noted Neuro oriented x3, CN's II-XII intact bilaterally and moves all extremities Speech: speech normal Psych mental status grossly normal Appearance: grossly normal Activity / Motor Behavior: appropriate eye contact Speech: normal speech Charges/Coding Palliative Care Palliative Care: 80188 Follow up 50+ min Consulation Summary Current admission Current Code Status: DNRCC-A Associated Diagnosis: metastatic lung CA Consult Data Date of Consult: 03/02/25 Location of consult: PCU Reason for referral: Goals of care Referral source: Dr. Loera Palliative care diagnosis (Summary list): Stage IV metastatic lung cancer, EF of35% Palliative care services/treatment (Accepted, as consult): accepted Case discussed with referring provider: home with O2 and pt not agreeing with hospice philosophy Palliative Assessment Advanced Directive - Current Admission Advance Directive: Advance Directive ON ADMISSION - REFERENCE 3 Do you have a Healthcare No 03/01/25 19:19 Living Will? Do you have a Healthcare Power No 03/01/25 19:19 of Elementary Math Tutor? Do You Want Additional Declined 03/01/25 19:19 Information on Advanced Directives or Symptoms Dyspnea symptoms: Moderate Constipation symptoms: None Nausea symptoms: None Vomiting symptoms: None Depression symptoms: None Anorexia symptoms: None Cough symptoms: Moderate Insomnia symptoms: None Diarrhea symptoms: None Fatigue symptoms: Mild Weakness symptoms: Mild Confusion symptoms: None Impression & Recommendations Impressions Impressions: Pt plans to continue his palliative services and research for cures Recommentation Palliative recommendations: pt having info meeting with hospice today at [address] Achieved as a result of this Palliative Care Encounter: [ [id number], [id number]] minutes were spent in total for this visit which consisted, primarily of counseling and education dealing with the complex and emotionally intense issues of symptom management and palliative care in the setting of serious and potentially life-threatening illness. Review of documentation, labs and radiological studies. ?Patient/family had the opportunity to ask questions Plan (1) Metastatic cancer to lung: PLAN: medical mgmt per primary provider (2) Pleural effusion: PLAN: medical mgmt per primary provider (3) Acute hypoxic respiratory failure: PLAN: home O2 ordered and awaiting delivery (4) Palliative care encounter: PLAN: pt plans to continue with outpatient palliative care dc home today 03/05/25 0935 <Electronically signed by Leeann GREEN> Cosigner Signature (if applicable): CC: ~ Signed [facility] Work Phone: [phone]) 858-860309-05-2025 Consult note [facility] Medical Records Department [address] [place] [address] Counseling Note - Pharmacy 03/05/25 1125 MR#: [id number] Acct: [id number] Name: EMETERIO CHENEY Rep #:[id number] : 1955 69 From: Kelsy Dugan [facility]CP[facility] Status:ADM IN Y Location: [place] [id number] [place] [facility] Counseling Pharmacy Service has performed discharge medication reconciliation and counseling for this patient.Patient wanted medications sent to [facility]. This [facility] spoke to Arianna at [facility] and requested all 5 medications to be transferred from [facility]. Preferred pharmacy updated in chart. 1. AUGMENTIN 875/125MG PO BID X 7 DAYS 2. FUROSEMIDE 40MG PO DAILY 3. MUCINEX 1200MG PO BID 4. POTASSIUM CHLORIDE 20MEQ PO BIDCM 5. SENNA/DOCUSATE 2T PO BID The patient's discharge medication list was reviewed for discrepancies and discrepancies were resolved. The patient was counseled on the following discharge medications and changes in medications for homegoing were reviewed. The Reason for Use, instructions for use, and potential side effects were reviewed for all new medications. The patient's questions regarding all of their medications were answered. The patient was able to verbally demonstrate an understanding of their dischargemedications. Medications at Discharge Home Medications dexamethasone 4 mg tablet 4 mg PO DAILY unknown 03/02/25 empagliflozin 25 mg tablet (Jardiance) 12.5 mg PO DAILY unknown 03/02/25 metoprolol succinate 25 mg tablet,extended release 24 hr (Toprol XL) 25 mg PO DAILY unknown 03/02/25 ondansetron 8 mg disintegrating tablet 8 mg PO Q8H nausea 03/02/25 oxycodone 5 mg capsule 5 mg PO Q4H pain 03/02/25 amoxicillin 875 mg-potassium clavulanate 125 mg tablet 1 tab PO BID 7 days #14 tabs 03/05/25 furosemide 40 mg tablet 40 mg PO DAILY #30 tabs 03/05/25 guaifenesin 1,200 mg tablet, extended release 12 hr (Mucus Relief ER) 1,200 mg PO BID #60 tabs 03/05/25 potassium chloride 20 mEq tablet,extended release(part/cryst) 20 meq PO BIDCM #60 tabs 03/05/25 sennosides 8.6 mg-docusate sodium 50 mg tablet (Stimulant Laxative Plus) 2 tab PO BID #60 tabs 03/05/25 03/05/25 1127 Date _ Kelsy De La Rosa Signature (if applicable): Date CC: ~ Signed [facility]09-05-2025 Discharge summary Author Zackery Soares [facility] Note Date/Time March 05, 2025 9:[address] [place] [address] Medical Records Department [address] [place] [address] Discharge Summary 03/05/25 0818 MR#: [id number] Acct: [id number] Name: EMETERIO CHENEY Rep #:[id number] : 1955 69 From: Zackery Soares MD PCP: [facility] Status:ADM IN Location: [place] [address] Providers Date of Admission: 03/01/25 Date of Discharge: 03/05/25 Primary Care Physician: [facility] Consultations 03/02/25 13:45 Consult: Inpatient Palliative Care Routine Consulting Provider: Leeann Miller Reason for Consult: Follows w/palliative at the [facility] EMERGENT Consult: No MD Notified: Yes Date Notified: 03/02/25 Time Notified: 13:45 Method of Notification: Text Method of Consult:: In-Person 03/03/25 16:11 Consult: Hospice / Outpatient Palliative Care Routine Consulting Provider: [facility] Reason for Consult: metastatic lung cancer EMERGENT Consult: Yes MD Notified: Yes Date Notified: 03/03/25 Time Notified: 16:11 Method of Notification: Text Reason For Visit: POSTOBSTRUCTIVE PNEUMONIA, FLUID OVERLOAD Diagnosis Discharge Diagnosis (1) Obstructive pneumonia: Status: Acute Code(s): J18.9 - Pneumonia, unspecified organism (2) Pleural effusion: Status: Acute Code(s): J90 - Pleural effusion, not elsewhere classified (3) Metastatic cancer to lung: Status: Acute Code(s): C78.00 - Secondary malignant neoplasm of unspecified lung Plan Patient is a 69-year-old gentleman with history of stage IV metastatic lung CA who presented with shortness of breath 1. Acute hypoxia ? CT demonstrated mild increase in the size of the left upper lobe/left hilar mass. Increased left pleural effusion. Increased left basilar atelectasis/consolidation. Increased cavitation in the left lower lobe. Unchanged mediastinal and hilar lymphadenopathy. Mild increase in the size and number of multiple pulmonary nodules with the largest measuring 16 mm. Placed on supplemental oxygen with treatment of the underlying clinical etiology ? 03/04/2025; patient remains on supplemental oxygen plan is for patient to be assessed for home oxygen prior to being discharged 2. Postobstructive pneumonia ?Patient managed with Unasyn. ? 03/04/2025; patient WBC count remains elevated 3. Acute congestive heart failure with decreased ejection fraction ? 2D echo obtained demonstrated moderate global left ventricular systolic dysfunction with EF of 35%. Patient was placed on diuretic therapy ? 4. Metastatic lung CA ? Patient has apparently failed immunotherapy. Care is at the [facility] patient is requesting to be transferred to the [facility] did explain to patient the best option would be for patient to be discharged after being assessed for home oxygen and then he can follow-up 5. 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 Severe protein-calorie malnutrition in the context of chronic disease related to inadequate energy/oral ntake and increased energy expenditure ? Patient was seen in consultation by dietary recommendations reviewed 7. DVT prophylaxis ? Patient started on Lovenox CODE STATUS DNR CCA no intubation ? Consult was also placed to the palliative care team to discuss goals of care next 03/04/2025 patient seen much more cooperative compared to previously. Patient is scheduled to have a meeting with hospice service this afternoon. Decision regarding discharge made after the meeting ? 03/05/2025; patient declined hospice decision was made to discharge patient homewith plans for patient to follow-up with the palliative care team at the [facility] Time spent in the patient's overall evaluation,decision-making process, review of diagnostic data, adjustment of management, discussion with other providers, nursing nursing and ancillary staff involved in patient's care documentation, 36Minutes Medications at Discharge Home Medications dexamethasone 4 mg tablet 4 mg PO DAILY unknown 03/02/25 empagliflozin 25 mg tablet (Jardiance) 12.5 mg PO DAILY unknown 03/02/25 metoprolol succinate 25 mg tablet,extended release 24 hr (Toprol XL) 25 mg PO DAILY unknown 03/02/25 ondansetron 8 mg disintegrating tablet 8 mg PO Q8H nausea 03/02/25 oxycodone 5 mg capsule 5 mg PO Q4H pain 03/02/25 amoxicillin 875 mg-potassium clavulanate 125 mg tablet 1 tab PO BID 7 days #14 tabs 03/05/25 furosemide 40 mg tablet 40 mg PO DAILY #30 tabs 03/05/25 guaifenesin 1,200 mg tablet, extended release 12 hr (Mucus Relief ER) 1,200 mg PO BID #60 tabs 03/05/25 potassium chloride 20 mEq tablet,extended release(part/cryst) 20 meq PO BIDCM #60 tabs 03/05/25 sennosides 8.6 mg-docusate sodium 50 mg tablet (Stimulant Laxative Plus) 2 tab PO BID #60 tabs 03/05/25 Physical Exam Narrative GENERAL: cooperative but frail looking HEENT: Atraumatic; normocephalic EYES; Anicteric, Normal Conjunctiva NECK; supple, normal thyroid, RESPIRATORY: Diminished to auscultation CARDIOVASCULAR: Regular S1 S2, GI: soft, normoactive bowel sounds, : No Renal angle tenderness; EXTREMITIES: No edema, no clubbing, MUSCULOSKELETAL: no muscle wasting NEURO: Awake; no lateralizing signs. SKIN: No Rash PSYCH; Flat affect Medical Records Data Medical Nutrition Assessment Dietitian: Malnutrition Criteria Met Start: 03/02/25 08:20 Freq: Status: Active Protocol: Document 03/02/25 16:19 RMA (Rec: 03/02/25 16:19 RMA [id number]) Nutrition Malnutrition Evidence of Yes Malnutrition Exists Malnutrition (severe Chronic ): Evidenced By Suboptimal Energy Intake (Severe),Weight Loss (Severe), Physical Changes (Severe) Clinical Problem Chronic Disease or Condition Related Malnutrition Etiology Severe protein-calorie malnutrition in the context of chronic disease related to inadequate energy/oral intake and increased energy expenditure Signs/Symptoms as evidenced by ~15% unintentional body weight lossx 2 months; PO meeting less than 50% estimated nutrition needs x past 1 month; BMI 20.2; muscle wasting/fat depletion in the clavicle, face, arms and legs Status Active Problem Recommendation Dietitian Will liberalize diet to Regular. Recommendations/ Will add magic cup with lunch. Changes Will add 240mL ensure plus HP w/ breakfast and dinner tray. Additional ONS as needed. Homelessness:: Sheltered Weight / BMI Weight Weight: 63.8 kg Body Mass Index (BMI) 20.2 ABG / Lab / Microbiology Data 03/05/25 04:55 03/05/25 04:55 Laboratory: Laboratory Results - last 24 hr 03/05/25 04:55: WBC 11.5 H, RBC 3.63 L, Hgb 9.8 L, Hct 30.8 L, MCV 84.8, MCH 27.0, MCHC 31.8 L, RDW Std Deviation 49.0 H, RDW Coeff of Hai 15.7 H, Plt Count 464 H, MPV 9.6, Neut % (Auto) Not Reportable, Absolute Neuts (auto) 9.8 H, Absolute Lymphs (auto) 1.50, Total Counted 100, Neutrophils % (Manual) 83 H, Band Neutrophils % 2, Lymphocytes % (Manual) 13 L, Monocytes % (Manual) 2, Platelet Estimate SLT INC, RBC Morphology NORM C+C, Sodium 133, Potassium 3.2 L,Chloride 90 L, Carbon Dioxide 29.7, Anion Gap 13, BUN 17, Creatinine 0.81, EstimCreat Clear Calc 77.67, Est GFR (MDRD) Non-Af 95, BUN/Creatinine Ratio 20.3 H, Glucose 82, Calcium 8.9 Microbiology: Microbiology 03/01/25 05:57 Blood Culture (Wb) - Right Wrist Blood Culture - Preliminary No growth in 48 hours. 03/01/25 05:40 Blood Culture (Wb) - Right Wrist Blood Culture - Preliminary No growth in 48 hours. 03/01/25 21:02 Mucosa - Nasopharyngeal Respiratory Panel (PCR) - Final 03/01/25 21:48 Urine, Clean Catch Streptococcus pneumoniae Antigen (M - Final 03/01/25 21:48 Urine, Clean Catch Legionella Antigen - Final D/C Instructions Discharge Activity: Return to Normal Activity Call your doctor if you observe: Fever of 101 or Higher, Shortness of breath, Fainting spells and Chest pain DC O2, CPAP, BIPAP Needs Home O2 Discharge instructions: Yes Type of respiratory needs?: Oxygen (2) Oxygen frequency: Continuous (2) Continuous oxygen liters per minute: 2 DC home with Oxygen: Yes Home O2 MD Review: I have reviewed the oxygen testing, and the patient qualifies for home oxygen equipment and portability. The patient is mobile in the home and the community. Meaningful Use Info Meaningful Use Meaningful Use Diagnoses (Choose all that apply): None applicable Discharge Plan Admission Admit Date/Time: 03/01/25 18:58 Attending Provider: Zackery Soares Primary Care Provider: [facility] Consulting Providers: Kavita Myles; Leeann Miller; Javid Loera; Zackery Myrick; Umu Rodrigez; Jade Chavarria; Consuelo Lopez; Eva Murry; Masci,Juana Discharge Orders/Prescriptions Prescriptions: New sennosides-docusate sodium [Stimulant Laxative Plus] 8.6-50 mg Tablet 2 tab PO BID Qty: 60 0RF potassium chloride 20 mEq Tablet,Er Particles/Crystals 20 meq PO BIDCM Qty: 60 0RF guaifenesin [Mucus Relief ER] 1,200 mg Tablet Extended Release 12hr 1,200 mg PO BID Qty: 60 0RF furosemide 40 mg Tablet 40 mg PO DAILY Qty: 30 0RF amoxicillin-pot clavulanate 875-125 mg Tablet 1 tab PO BID 7 Days Qty: 14 0RF Continued oxycodone 5 mg capsule 5 mg PO Q4H Rx Instructions: take 1-2 tabs as needed for pain ondansetron 8 mg tablet,disintegrating 8 mg PO Q8H Jardiance 25 mg tablet 12.5 mg PO DAILY metoprolol succinate [Toprol XL] 25 mg tablet extended release 24 hr 25 mg PO DAILY dexamethasone 4 mg tablet 4 mg PO DAILY [facility]errals [facility] - Within 1 Week Disposition Disposition (needs filled in before D/C Order can be placed): Home, Self Care Charges/Coding Visit Charges Inpatient E&M: 65684 Disch Hosp >30min 03/05/25 09 <Electronically signed by Zackery Soares MD> Cosigner Signature (if applicable): CC: Dr. Zackery Soares MD; [facility]~ Signed [facility] Work Phone: [phone]) 900-399709-05-2025 Progress note [facility] Medical Records Department [address] [place] [address] Progress Note - Palliative 03/05/25916 MR#: [id number] Acct: [id number] Name: EMETERIO CHENEY Rep #:[id number] : 1955 69 From: Leeann Wu [employer] PCP: [facility] Status:ADM IN Location: [facility] [id number] Subjective Subjective Subjective Subjective 03/05/25: Prior to meeting with the pt at bedside, I reviewed documentation from overnight. I also talked to SW/CM about meeting the pt had with hospice yesterday. I then met with Addy at bedside. When I initially entered the room, he was very agitated and stated that the hopsice meeting was crap.I did ask him to explain. He stated that he is unable to continue to seek treatment while on hospice. I did explain to him that he can continue to seek eastern medicine treatments that he had discussed before but that anything that would pull from his medicare, would not be allowed. He states understanding andstated that his philosophy and that of the hospice did not gel well. I did state understanding . We then discussed what his hopes are going forward. He is hoping to find an oncologist thatcan continue with treatments, even if they are trials. He wants to continue with meditation, diet and activity as well as other modalities that he can assist with the possibility of healing. He is agreeing to follow up with palliative care provider Dr. Berna Jiménez, whom he is established. I will contact her today for a warm handoff. All questions answered. Pt is waiting for O2 delivery at home for discharge. 03/04/25: I did meet with Addy in his room. He was in [facility] and Deyanira was also in the room for support. Pt did report having 9/10 pain last night. Iwas contacted to confirm that the pt takes Oxy 10mg PO for severe pain. Addy endorsed that he feels that going home with hospice is his best option. He plans to continue adjunct modalities to his traditional medical practices. He does acknowledge some SOB this morning but states manageable He was, initially speaking in 3-4word sentences but as he became distracted with our discussion, I noted his breathing to ease and he was able to speak in complete sentences. He plans to continue writing a memoir about his dealing with cancer diagnosis. Addy is a deep thinker and I did encourage him to continue to do the things that brings him mick. All questions answered. 03/03/25: Creatinine is daily at bedside I did review documentation and labs from overnight. I did note that he has had an improvement in his WBCs from 13.5-11.4. Slight decrease in his hemoglobin hematocrit from 10.5-9.8 today and 32.6yesterday to 30.3 today. Platelets continue to be elevated at 491. He is slightly hyponatremic with a sodium of 131. BUN is slightly elevated at 20 from16 yesterday.Patient continues to receive Lasix. I then met with Emeterio finney. He was sitting up in his bed stabilizing his trunk well, away from theback of the bed. Family initially wanted to speak about alternative healing methods for his cancer. I do support his utilization of Eastern and Ayurvedic medicine to assist with his healing but I also discussed comfort measures while not receiving traditional Western medicine such as chemotherapy or radiation. Idid discuss the possibility of hospice services for comfort in addition to his nontraditional healing practices. He did state that he will think about it as he thought it may be a good adjunct if he is unable to receive any further treatment [facility]. He did state that he would like to receive all of his care from the [facility] he is embedded with them. He is hopeful that he will be able to find a provider that is willing to treat his cancer. We then discussed what the typical criteria is for continued Western medicine tr eatment in which Addy states understanding. I then discussed that yesterday he refused PT and OT and did not want to get the bed. I explained to him that he needs to be able to get out of the bed and utilize a walker if he wants any chance in receiving continue Western medicine. Addy did state understanding and states that he will work with PT and OT and is mad at himself or refusing yesterday.He expressed frustration over the management of his painmedications. He states that at home he takes oxycodone 2.5 mg or 5 mg up to 10 mg every 4 hours depending on symptoms and pain. I did state understanding and explained that that is a typical palliative order to utilize the lowest dose possiblein managing symptoms. I do recommend oxycodone 2.5 mg p.o. every 4 hours as needed for mild pain 1-3 or mild shortness of breath, oxycodone 5 mg p.o. every 4 hours as needed for moderate pain 4-6 and/or moderate shortness of breath and oxycodone 10 mg p.o. every 4 hours as needed for severe pain 7-10 and/or severe shortness of breath. An attempt to meet Addy where he is at, will continue to discuss adjunct treatments and what that would look like for him going forward from a nutritional standpoint as well as his mind and spirit. Addy plans to more aggressively implement meditation, guided imagery and relaxation and exercises. He does note that his symptoms get worse when he becomes anxious or sad having a bad day. Statesgood understanding of how his mind has been affecting symptoms. I did recommend that he finds a good balance between his Eastern philosophy and Western medicine which he states agreement. He does state that he is not against initiating hospice for comfort and that he would like to receive those services to through the [facility] and would like to speak to them first. He does have a palliative care provider at the [facility]. I did encourage him to reachout to them sooner rather than later to get assistance with managing his symptoms. I then spoke with Dr. Loya, to update him on Addy's desire to go to the [facility]. He recommended the possibility of discharge to home and then have the patient reach out to his primary care providers for next steps at the [facility]. Lastly, I did speak to Addy about POA and the importance of establishing a POA going forward. Particularly, because he would like his fiDeyanira caputo to be his decision-maker. He plans to initiate them as soon as he is discharged. Addy did take lots of notes during our conversation and asked very good questions, which were answered. Palliative care will continue to follow for support as the patient's clinical picture evolves. 03/02/25Prior to meeting with the pt at bedside, I reviewed previous documentation, labs, radiological studies and well as diagnostic studies. I then met with the pt at bedside. I introduced myself to both Addy and his fiance , Deyanira and the concept of palliative care, which they voluntarily accepted our services. I ask Addy what he knew of his diagnosis, in which he confirmed that his oncologist stated that he has completed 3 rounds of immunotherapy with no improvement in his cancer. They are not convinced that hewill receive any further treatment from his oncologist. Addy continually talks about various doctors that have had great success with treatments Dr Segal and out of [place]. I did ask if he has reached out to these doctors and been accepted as a patient? He statedthat he has not but states that he is going to have them contact the doctors here and they can tell them what to do. I explained to him that it typically doesn't work that way. He then talked about going to a cancer treatment center in [place]. Currently, he isnot well enough for travel and I didask him how he plans to get there. He did not have a response, at this time. I am concerned that lorenza be experiencing denial in his grief process. He did endorse that he spends 90% of his time in bed, while at home. I then discussed his Echocardiogram and gave he and Marine overview of what it said with explanations. They both stated understanding. I explained his EF of 35% and elevated troponins x 3 of 36, 34 and 29. BNP of 2433, Along with his metastatic stage IV lung cancer without receiving any further treatments, would make him eligible for hospice. Both Addy and Deyanira stated thatthey don't feel they are ready for that. I did offer supportive listening and allowed them to change the subject and followed their trajectory. We did discuss the fact that he is very weak and will, most likely, not be a candidate for continued therapies unless he can gain some strength. He is opento continued PT/OT services to get stronger. He is currently waiting for a bed at the [facility] and states that he feels his symptoms are being controlled well, at this time. He is open to further conversa tions and Palliative care will continue to follow. All questions answered. Per hospitalist EMETERIO NONI, is a 69y/o male w/ hx of stage IV lung cancer notreceiving any treatment because he was not responding to immunotherapy and symptomatic anemia who presented [facility] ED 03/01/2025 for shortness of breath especially in the mornings but over the past 3 days he has continued to worsen, also has mild wheezing and coughing. Also notes the past 2weeks he has had increased swelling in his lower extremities. In the ED patientafebrile, patient with variableheart rate anywhere from 90s to 120s, blood pressure initially 106/92, respiratory rate 18 patient 98% on 3 L nasal cannula with a respiratory rate of 19. CBC with white blood cell count 14.4, .2 and platelet count 459. BMP with a sodium of 126, up from 120 in December, BUNof 11 and creatinine 0.65, Trop of 36 with 4-hour Trop of 29, and a proBNP of 2433. Lactic acid within normal limits.CTA obtained and showed mild increase in size of patient's left upper lobe/left hilar mass with increased cavitation consolidation as well as left pleural effusion, mild increase in size and numberofpulmonary nodules, unchanged multifocal compression of the left pulmonary artery and branches. ED physician was concern for postobstructive pneumonia andfluid overload, patient received Rocephin and azithromycin as well as IV Lasix in the ED. [facility] and [facility] for prolonged amount of time and [facility] to [facility] givenlack of bed availability so hospitalist contacted for admission. Patient evaluated bedside. Patientreports he is still having shortness of breath but feels better than when he first arrived especially sincehe has been pain off fluid. He notes that he has been having shortness of breath and cough for a year and was diagnosed with stage IV lung cancer, usuallyhe short of breath when he wakes up inthe morning but then will improve throughout the day and some days will not feel too bad at all over the past 3 days he has not been improving throughout the day, does cough but has difficultyproducing any sputum, also notes leg swelling for the past 2 weeks. He reports before his lung cancer diagnosis he had never been hospitalized and did not takeany medications, denies smoking, only thing he takes at home currently is oxycodone as needed since his diagnosis. Denies any breathing treatments at home and does not wear home oxygen. He denies any chest pain, no fever at home,occasionally gets some abdominal pain but nothing significant, had been having problems with constipation but that has resolved, denies nausea. Denies problems with urination Objective Data Objective Data Vital Signs: Vital Signs Temp Pulse Resp BP Pulse Ox O2 Del Method O2 Flow Rate 98.3 F 109 H 22 H 104/77 93 Nasal Cannula 2 03/05/25 04:58 03/05/25 06:47 03/05/25 06:47 03/05/25 04:58 03/05/25 06:47 03/05/25 06:47 03/05/25 06:47 Oxygen Flow Rate (L/min) 2 Oxygen Delivery Method Nasal Cannula Weight: 140 lb 10.479 oz Body Mass Index (BMI) 20.2 Intake & Output: Intake and Output for Last 24 Hours 03/03/25 03/04/25 03/05/25 23:59 23:59 23:59 Intake Total 675 / 675 400 / 400 200 / 200 Output Total 2500 / 3000 3630 / 3630 200 / 200 Balance -1825 / -2325 -3230 / -3230 0 / 0 Medical Nutrition Assessment Dietitian: Malnutrition Criteria Met Start: 03/02/25 08:20 Freq: Status: Active Protocol: Document 03/02/25 16:19 RMA (Rec: 03/02/25 16:19 RMA [id number]) Nutrition Malnutrition Evidence of Yes Malnutrition Exists Malnutrition (severe Chronic ): Evidenced By Suboptimal Energy Intake (Severe),Weight Loss (Severe), Physical Changes (Severe) Clinical Problem Chronic Disease or Condition Related Malnutrition Etiology Severe protein-calorie malnutrition in the context of chronic disease related to inadequate energy/oral intake and increased energy expenditure Signs/Symptoms as evidenced by ~15% unintentional body weight lossx 2 months; PO meeting less than 50% estimated nutrition needs x past 1 month; BMI 20.2; muscle wasting/fat depletion in the clavicle, face, arms and legs Status Active Problem Recommendation Dietitian Will liberalize diet to Regular. Recommendations/ Will add magic cup with lunch. Changes Will add 240mL ensure plus HP w/ breakfast and dinner tray. Additional ONS as needed. Lab / Micro Data Lab results narrative: potassium is low at 3.2. Recommend replacement 03/05/25 04:55 03/05/25 04:55 Labs: Laboratory Results - last 24 hr 03/05/25 04:55: WBC 11.5 H, RBC 3.63 L, Hgb 9.8 L, Hct 30.8 L, MCV 84.8, MCH 27.0, MCHC 31.8 L, RDWStd Deviation 49.0 H, RDW Coeff of Hai 15.7 H, Plt Count 464 H, MPV 9.6, Neut % (Auto) Not Reportable, Absolute Neuts (auto) 9.8 H, Absolute Lymphs (auto) 1.50, Total Counted 100, Neutrophils % (Manual) 83 H, Band Neutrophils % 2, Lymphocytes % (Manual) 13 L, Monocytes % (Manual) 2, Platelet Estimate SLT INC, RBC Morphology NORM C+C, Sodium 133, Potassium 3.2 L,Chloride 90 L, Carbon Dioxide 29.7,Anion Gap 13, BUN 17, Creatinine 0.81, EstimCreat Clear Calc 77.67, Est GFR (MDRD) Non-Af 95, BUN/Creatinine Ratio 20.3 H, Glucose 82, Calcium 8.9 Micro: Microbiology 03/01/25 05:57 Blood Culture (Wb) - Right Wrist Blood Culture - Preliminary No growth in 48 hours. 03/01/25 05:40 Blood Culture (Wb) - Right Wrist Blood Culture - Preliminary No growth in 48 hours. 03/01/25 21:02 Mucosa - Nasopharyngeal Respiratory Panel (PCR) - Final 03/01/25 21:48 Urine, Clean Catch Streptococcus pneumoniae Antigen (M - Final 03/01/25 21:48 Urine, Clean Catch Legionella Antigen - Final Rhythm Strip Rhythm Strip: Sinus Tach Rate: 109 Ectopy: PVC(s) and - (short run of SVT) Social Homelessness:: Sheltered Physical Exam Narrative ROS as per HPI except that the pt is complaining of cough and mild SOB. O2 is in place. Const oriented x3 General Appearance: cooperative Orientation / Consciousness: awake, oriented to person, oriented to place and oriented to time Exam Limitations: no limitations Nutritional Appearance: cachectic and thin HEENT normocephalic Eyes PERRL Eyes Narrative: corrective lenses Neck full ROM Resp no use of accessory muscles Auscultation: wheezes and diminished lung sounds Cardio regular rhythm Rate: tachycardic GI normal to inspection, nondistended, normoactive bowel sounds Extremity normal to inspection Skin no rashes or lesions noted Neuro oriented x3, CN's II-XII intact bilaterally and moves all extremities Speech: speech normal Psych mental status grossly normal Appearance: grossly normal Activity / Motor Behavior: appropriate eye contact Speech: normal speech Charges/Coding Palliative Care Palliative Care: 14547 Follow up 50+ min Consulation Summary Current admission Current Code Status: DNRCC-A Associated Diagnosis: metastatic lung CA Consult Data Date of Consult: 03/02/25 Location of consult: PCU Reason for referral: Goals of care Referral source: Dr. Loera Palliative care diagnosis (Summary list): Stage IV metastatic lung cancer, EF of35% Palliative care services/treatment (Accepted, as consult): accepted Case discussed with referring provider: home with O2 and pt not agreeing with hospice philosophy Palliative Assessment Advanced Directive - Current Admission Advance Directive: Advance Directive ON ADMISSION - REFERENCE 3 Do you have a Healthcare No 03/01/25 19:19 Living Will? Do you have a Healthcare Power No 03/01/25 19:19 of Elementary Math Tutor? Do You Want Additional Declined 03/01/25 19:19 Information on Advanced Directives or Symptoms Dyspnea symptoms: Moderate Constipation symptoms: None Nausea symptoms: None Vomiting symptoms: None Depression symptoms: None Anorexia symptoms: None Cough symptoms: Moderate Insomnia symptoms: None Diarrhea symptoms: None Fatigue symptoms: Mild Weakness symptoms: Mild Confusion symptoms: None Impression & Recommendations Impressions Impressions: Pt plans to continue his palliative services and research for cures Recommentation Palliative recommendations: pt having info meeting with hospice today at [address] Achieved as a result of this Palliative Care Encounter: [ [id number], [id number]] minutes were spent in total for this visit which consisted, primarily of counseling and education dealing with the complex and emotionally intense issues of symptom managementand palliative care in the setting of serious and potentially life-threatening illness. Review of do cumentation, labs and radiological studies. ?Patient/family had the opportunity to ask questions Plan (1) Metastatic cancer to lung: PLAN: medical mgmt per primary provider (2) Pleural effusion: PLAN: medical mgmt per primary provider (3) Acute hypoxic respiratory failure: PLAN: home O2 ordered and awaiting delivery (4) Palliative care encounter: PLAN: pt plans to continue with outpatient palliative care dc home today 03/05/25 0935 Cosigner Signature (if applicable): CC: ~ Signed [facility]09-05-2025 Discharge summary [facility] Medical Records Department [address] [place] [address] Discharge Summary 03/05/25817 MR#: [id number] Acct: [id number] Name: EMETERIO CHENEY Rep #:[id number] : 1955 69 From: Zackery Soares MD PCP: [facility] Status:ADM IN Location: [facility] [id number] Providers Date of Admission: 03/01/25 Date of Discharge: 03/05/25 [facility] Physician: [facility] Consultations 03/02/25 13:45 Consult: Inpatient Palliative Care Routine Consulting Provider: Leeann Miller Reason for Consult: Follows w/palliative at the [facility]GENT Consult: No MD Notified: Yes Date Notified: 03/02/25 Time Notified: 13:45 Method of Notification: Text Method of Consult:: In-Person 03/03/25 16:11 Consult: Hospice / Outpatient Palliative Care Routine Consulting Provider: [facility] Reason for Consult: metastatic lung cancer EMERGENT Consult: Yes MD Notified: Yes Date Notified: 03/03/25 Time Notified: 16:11 Method of Notification: Text Reason For Visit: POSTOBSTRUCTIVE PNEUMONIA, FLUID OVERLOAD Diagnosis Discharge Diagnosis (1) Obstructive pneumonia: Status: Acute Code(s): J18.9 - Pneumonia, unspecified organism (2) Pleural effusion: Status: Acute Code(s): J90 - Pleural effusion, not elsewhere classified (3) Metastatic cancer to lung: Status: Acute Code(s): C78.00 - Secondary malignant neoplasm of unspecified lung Plan Patient is a 69-year-old gentleman with history of stage IV metastatic lung CA who presented with shortness of breath 1. Acute hypoxia ? CT demonstrated mild increase in the size of the left upper lobe/left hilar mass. Increased left pleural effusion. Increased left basilar atelectasis/consolidation. Increased cavitation in the leftlower lobe. Unchanged mediastinal and hilar lymphadenopathy. Mild increase in the size and number of multiple pulmonary nodules with the largest measuring 16 mm. Placed on supplemental oxygen with treatment of the underlying clinical etiology ? 03/04/2025; patient remains on supplemental oxygen plan is for patient to be assessed for home oxygen prior to being discharged 2. Postobstructive pneumonia ?Patient managed with Unasyn. ? 03/04/2025; patient WBC count remains elevated 3. Acute congestive heart failure with decreased ejection fraction ? 2D echo obtained demonstrated moderate global left ventricular systolic dysfunction with EF of 35%. Patient was placed on diuretic therapy ? 4. Metastatic lung CA ? Patient has apparently failed immunotherapy. Care is at the [facility] patient is requesting to be transferred to the [facility] did explain to patient the best option would be for patient to be discharged after being assessed for home oxygen and then he can follow-up 5. 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 Severe protein-calorie malnutrition in the context of chronic disease related to inadequate energy/oral ntake and increased energy expenditure ? Patient was seen in consultation by dietary recommendations reviewed 7. DVT prophylaxis ? Patient started on Lovenox CODE STATUS DNR CCA no intubation ? Consult was also placed to the palliative care team to discuss goals of care next 03/04/2025 patient seen much more cooperative compared to previously. Patient is scheduled to have a meeting with hospice service this afternoon. Decision regarding discharge made after the meeting ? 03/05/2025; patient declined hospice decision was made to discharge patient homewith plans for patient to follow-up with the palliative care team at the [facility] Time spent in the patient's overall evaluation,decision-making process, review of diagnostic data, adjustment of management, discussion with other providers, nursing nursing and ancillary staff involved in patient's care documentation, 36Minutes Medications at Discharge Home Medications dexamethasone 4 mg tablet 4 mg PO DAILY unknown 03/02/25 empagliflozin 25 mg tablet (Jardiance) 12.5 mg PO DAILY unknown 03/02/25 metoprolol succinate 25 mg tablet,extended release 24 hr (Toprol XL) 25 mg PO DAILY unknown 03/02/25 ondansetron 8 mg disintegrating tablet 8 mg PO Q8H nausea 03/02/25 oxycodone 5 mg capsule 5 mg PO Q4H pain 03/02/25 amoxicillin 875 mg-potassium clavulanate 125 mg tablet 1 tab PO BID 7 days #14 tabs 03/05/25 furosemide 40 mg tablet 40 mg PO DAILY #30 tabs 03/05/25 guaifenesin 1,200 mg tablet, extended release 12 hr (Mucus Relief ER) 1,200 mg PO BID #60 tabs 03/05/25 potassium chloride 20 mEq tablet,extended release(part/cryst) 20 meq PO BIDCM #60 tabs 03/05/25 sennosides 8.6 mg-docusate sodium 50 mg tablet (Stimulant Laxative Plus) 2 tab PO BID #60 tabs 03/05/25 Physical Exam Narrative GENERAL: cooperative but frail looking HEENT: Atraumatic; normocephalic EYES; Anicteric, Normal Conjunctiva NECK; supple, normal thyroid, RESPIRATORY: Diminished to auscultation CARDIOVASCULAR: Regular S1 S2, GI: soft, normoactive bowel sounds, : No Renal angle tenderness; EXTREMITIES: No edema, no clubbing, MUSCULOSKELETAL: no muscle wasting NEURO: Awake; no lateralizing signs. SKIN: No Rash PSYCH; Flat affect Medical Records Data Medical Nutrition Assessment Dietitian: Malnutrition Criteria Met Start: 03/02/25 08:20 Freq: Status: Active Protocol: Document 03/02/25 16:19 RMA (Rec: 03/02/25 16:19 RMA [id number]) Nutrition Malnutrition Evidence of Yes Malnutrition Exists Malnutrition (severe Chronic ): Evidenced By Suboptimal Energy Intake (Severe),Weight Loss (Severe), Physical Changes (Severe) Clinical Problem Chronic Disease or Condition Related Malnutrition Etiology Severe protein-calorie malnutrition in the context of chronic disease related to inadequate energy/oral intake and increased energy expenditure Signs/Symptoms as evidenced by ~15% unintentional body weight lossx 2 months; PO meeting less than 50% estimated nutrition needs x past 1 month; BMI 20.2; muscle wasting/fat depletion in the clavicle, face, arms and legs Status Active Problem Recommendation Dietitian Will liberalize diet to Regular. Recommendations/ Will add magic cup with lunch. Changes Will add 240mL ensure plus HP w/ breakfast and dinner tray. Additional ONS as needed. Homelessness:: Sheltered Weight / BMI Weight Weight: 63.8 kg Body Mass Index (BMI) 20.2 ABG / Lab / Microbiology Data 03/05/25 04:55 03/05/25 04:55 Laboratory: Laboratory Results - last 24 hr 03/05/25 04:55: WBC 11.5 H, RBC 3.63 L, Hgb 9.8 L, Hct 30.8 L, MCV 84.8, MCH 27.0, MCHC 31.8 L, RDWStd Deviation 49.0 H, RDW Coeff of Hai 15.7 H, Plt Count 464 H, MPV 9.6, Neut % (Auto) Not Reportable, Absolute Neuts (auto) 9.8 H, Absolute Lymphs (auto) 1.50, Total Counted 100, Neutrophils % (Manual) 83 H, Band Neutrophils % 2, Lymphocytes % (Manual) 13 L, Monocytes % (Manual) 2, Platelet Estimate SLT INC, RBC Morphology NORM C+C, Sodium 133, Potassium 3.2 L,Chloride 90 L, Carbon Dioxide 29.7,Anion Gap 13, BUN 17, Creatinine 0.81, EstimCreat Clear Calc 77.67, Est GFR (MDRD) Non-Af 95, BUN/Creatinine Ratio 20.3 H, Glucose 82, Calcium 8.9 Microbiology: Microbiology 03/01/25 05:57 Blood Culture (Wb) - Right Wrist Blood Culture - Preliminary No growth in 48 hours. 03/01/25 05:40 Blood Culture (Wb) - Right Wrist Blood Culture - Preliminary No growth in 48 hours. 03/01/25 21:02 Mucosa - Nasopharyngeal Respiratory Panel (PCR) - Final 03/01/25 21:48 Urine, Clean Catch Streptococcus pneumoniae Antigen (M - Final 03/01/25 21:48 Urine, Clean Catch Legionella Antigen - Final D/C Instructions Discharge Activity: Return to Normal Activity Call your doctor if you observe: Fever of 101 or Higher, Shortness of breath, Fainting spells and Chest pain DC O2, CPAP, BIPAP Needs Home O2 Discharge instructions: Yes Type of respiratory needs?: Oxygen (2) Oxygen frequency: Continuous (2) Continuous oxygen liters per minute: 2 DC home with Oxygen: Yes Home O2 MD Review: I have reviewed the oxygen testing, and the patient qualifies for home oxygen equipment and portability. The patient is mobile in the home and the community. Meaningful Use Info Meaningful Use Meaningful Use Diagnoses (Choose all that apply): None applicable Discharge Plan Admission Admit Date/Time: 03/01/25 18:58 Attending Provider: Zackery Soares Primary Care Provider: [facility] Consulting Providers: Kavita Myles; Leeann Miller; Javid Loera; Zackery Myrick; Umu Rodrigez; Jade Chavarria; Consuelo Lopez; Eva Murry; Juana Krause Discharge Orders/Prescriptions Prescriptions: New sennosides-docusate sodium [Stimulant Laxative Plus] 8.6-50 mg Tablet 2 tab PO BID Qty: 60 0RF potassium chloride 20 mEq Tablet,Er Particles/Crystals 20 meq PO BIDCM Qty: 60 0RF guaifenesin [Mucus Relief ER] 1,200 mg Tablet Extended Release 12hr 1,200 mg PO BID Qty: 60 0RF furosemide 40 mg Tablet 40 mg PO DAILY Qty: 30 0RF amoxicillin-pot clavulanate 875-125 mg Tablet 1 tab PO BID 7 Days Qty: 14 0RF Continued oxycodone 5 mg capsule 5 mg PO Q4H Rx Instructions: take 1-2 tabs as needed for pain ondansetron 8 mg tablet,disintegrating 8 mg PO Q8H Jardiance 25 mg tablet 12.5 mg PO DAILY metoprolol succinate [Toprol XL] 25 mg tablet extended release 24 hr 25 mg PO DAILY dexamethasone 4 mg tablet 4 mg PO DAILY Referrals / Follow Up: [facility] [Primary Care Provider] - Within 1 Week Disposition Disposition (needs filled in before D/C Order can be placed): Home, Self Care Charges/Coding Visit Charges Inpatient E&M: 48009 Disch Hosp >30min 03/05/25 09 Cosigner Signature (if applicable): CC: Dr. Zackery Soares MD; [facility]~ Signed [facility]09-05-2025 [facility] Medical Records Department [address] [place] [address] Discharge Summary 03/05/25817 MR#: [id number] Acct: [id number] Name: EMETERIO CHENEY Rep #: [id number] : 1955 69 From: Zackery Soares MD PCP: [facility] Status:ADM IN Location: [facility] [id number] Providers Date of Admission: 03/01/25 Date of Discharge: 03/05/25 Primary Care Physician: [facility] Consultations 03/02/25 13:45 Consult: Inpatient Palliative Care Routine Consulting Provider: Leeann Miller Reason for Consult: Follows w/palliative at [facility] Consult: No Notified: Yes Date Notified: 03/02/25 Time Notified: 13:45 Method of Notification: Text Method of Consult:: In-Person 03/03/25 16:11 Consult: Hospice / Outpatient Palliative Care Routine Consulting Provider: [facility] Reason for Consult: metastatic lung cancer EMERGENT Consult: Yes MD Notified: Yes Date Notified: 03/03/25 Time Notified: 16:11 Method of Notification: Text Reason For Visit: POSTOBSTRUCTIVE PNEUMONIA, FLUID OVERLOAD Diagnosis Discharge Diagnosis (1) Obstructive pneumonia: Status: Acute Code(s): J18.9 - Pneumonia, unspecified organism (2) Pleural effusion: Status: Acute Code(s): J90 - Pleural effusion, not elsewhere classified (3) Metastatic cancer to lung: Status: Acute Code(s): C78.00 - Secondary malignant neoplasm of unspecified lung Plan Patient is a 69-year-old gentleman with history of stage IV metastatic lung CA who presented with shortness of breath 1. Acute hypoxia ??? CT demonstrated mild increase in the size of the left upper lobe/left hilar mass. Increased left pleural effusion. Increased left basilar atelectasis/consolidation. Increased cavitation in the left lower lobe. Unchanged mediastinal and hilar lymphadenopathy. Mild increase in the size and number of multiple pulmonary nodules with the largest measuring 16 mm. Placed on supplemental oxygen with treatment of the underlying clinical etiology ??? 03/04/2025; patient remains on supplemental oxygen plan is for patient to be assessed for home oxygen prior to being discharged 2. Postobstructive pneumonia ???Patient managed with Unasyn. ??? 03/04/2025; patient WBC count remains elevated 3. Acute congestive heart failure with decreased ejection fraction ??? 2D echo obtained demonstrated moderate global left ventricular systolic dysfunction with EF of 35%. Patient was placed on diuretic therapy ??? 4. Metastatic lung CA ??? Patient has apparently failed immunotherapy. Care is at the [facility] patient is requesting to be transferred to the [facility] explain to patient the best option would be for patient to be discharged after being assessed for home oxygen and then he can follow-up 5. Hyponatremia ??? 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 Severe protein-calorie malnutrition in the context of chronic disease related to inadequate energy/oral ntake and increased energy expenditure ??? Patient was seen in consultation by dietary recommendations reviewed 7. DVT prophylaxis ??? Patient started on Lovenox CODE STATUS DNR CCA no intubation ??? Consult was also placed to the palliative care team to discuss goals of care next 03/04/2025 patient seen much more cooperative compared to previously. Patient is scheduled to have a meeting with hospice service this afternoon. Decision regarding discharge made after the meeting ??? 03/05/2025; patient declined hospice decision was made to discharge patient home with plans for patient to follow-up with the palliative care team at the [facility] Time spent in the patient's overall evaluation,decision-making process, review of diagnostic data, adjustment of management, discussion with other providers, nursing nursing and ancillary staff involved in patient's care documentation, 36 Minutes Medications at Discharge Home Medications dexamethasone 4 mg tablet 4 mg PO DAILY unknown 03/02/25 empagliflozin 25 mg tablet (Jardiance) 12.5 mg PO DAILY unknown 03/02/25 metoprolol succinate 25 mg tablet,extended release 24 hr (Toprol XL) 25 mg PO DAILY unknown 03/02/25 ondansetron 8 mg disintegrating tablet 8 mg PO Q8H nausea 03/02/25 oxycodone 5 mg capsule 5 mg PO Q4H pain 03/02/25 amoxicillin 875 mg-potassium clavulanate 125 mg tablet 1 tab PO BID 7 days #14 tabs 03/05/25 furosemide 40 mg tablet 40 mg PO DAILY #30 tabs 03/05/25 guaifenesin 1,200 mg tablet, extended release 12 hr (Mucus Relief ER) 1,200 mg PO BID #60 tabs 03/05/25 potassium chloride 20 mEq tablet,extended release(part/cryst) 20 meq PO BIDCM #60 tabs 03/05/25 sennosides 8.6 mg-docusate sodium 50 mg tablet (Stimulant Laxative Plus) 2 tab PO BID #60 tabs 03/05/25 Physical Exam Narrative GENERAL: cooperative but frail looking HEENT: Atraumatic; normocephalic EYES; Anicteric, Normal Co (more content not included)...[facility]09-04-2025 Progress note Author Zackery Soares [facility] Note Date/Time March 04, 2025 10:08am [facility] Medical Records Department [address] [place] [address] Progress Note - Hospitalist 03/04/25 0657 MR#: [id number] Acct: [id number] Name: EMETERIO CHENEY Rep #:[id number] : 1955 69 From: Zackery Soares MD [facility] Status:ADM IN Location: [place] [address] Reason for Visit Chief Complaint: Shortness of breath Subjective Subjective Patient seen much more cooperative compared to previously. Patient is scheduledto have a meeting with hospice service this afternoon. Decision regarding discharge made after the meeting Objective Data Objective Data Vital Signs: Vital Signs Temp Pulse Resp BP Pulse Ox O2 Del Method O2 Flow Rate 97.6 F L 112 H 19 H 115/93 H 95 Nasal Cannula 2 03/04/25 05:15 03/04/25 05:15 03/04/25 05:15 03/04/25 05:15 03/04/25 05:15 03/04/25 05:31 03/04/25 05:31 Oxygen Flow Rate (L/min) 2 Oxygen Delivery Method Nasal Cannula Weight: 63.8 kg Body Mass Index (BMI) 20.2 Intake & Output: Intake and Output for Last 24 Hours 03/02/25 03/03/25 03/04/25 23:59 23:59 23:59 Intake Total 1335 / 1335 675 / 675 200 / 200 Output Total 2650 / 2650 2500 / 3000 1400 / 1400 Balance -1315 / -1315 -1825 / -2325 -1200 / -1200 Medical Nutrition Assessment Dietitian: Malnutrition Criteria Met Start: 03/02/25 08:20 Freq: Status: Active Protocol: Document 03/02/25 16:19 RMA (Rec: 03/02/25 16:19 RMA [id number]) Nutrition Malnutrition Evidence of Yes Malnutrition Exists Malnutrition (severe Chronic ): Evidenced By Suboptimal Energy Intake (Severe),Weight Loss (Severe), Physical Changes (Severe) Clinical Problem Chronic Disease or Condition Related Malnutrition Etiology Severe protein-calorie malnutrition in the context of chronic disease related to inadequate energy/oral intake and increased energy expenditure Signs/Symptoms as evidenced by ~15% unintentional body weight lossx 2 months; PO meeting less than 50% estimated nutrition needs x past 1 month; BMI 20.2; muscle wasting/fat depletion in the clavicle, face, arms and legs Status Active Problem Recommendation Dietitian Will liberalize diet to Regular. Recommendations/ Will add magic cup with lunch. Changes Will add 240mL ensure plus HP w/ breakfast and dinner tray. Additional ONS as needed. Lab / Micro Data 03/04/25 04:52 03/04/25 04:52 Labs: Laboratory Results - last 24 hr 03/03/25 04:56: Absolute Neuts (auto) 10.3 H, Absolute Lymphs (auto) 0.50 L, Total Counted 100, Neutrophils % (Manual) 90 H, Lymphocytes % (Manual) 4 L, Monocytes % (Manual) 2, Metamyelocytes % 3 H, Promyelocytes % 1 H, Platelet Estimate SLT INC, RBC Morphology NORM C+C 03/04/25 04:52: WBC 11.2 H, RBC 3.61 L, Hgb 10.1 L, Hct 30.5 L, MCV 84.5, MCH 28.0, MCHC 33.1, RDW Std Deviation 48.5 H, RDW Coeff of Hai 15.8 H, Plt Count 462 H, MPV 9.6, Neut % (Auto) Not Reportable, Absolute Neuts (auto) 9.3 H, Absolute Lymphs (auto) 1.00, Total Counted 100, Neutrophils % (Manual) 81 H, Band Neutrophils % 2, Lymphocytes % (Manual) 9 L, Monocytes % (Manual) 3, Eosinophils % (Manual) 2, Metamyelocytes % 2 H, Myelocytes % 1 H, Sodium 131 L, Potassium 3.5, Chloride 91 L, Carbon Dioxide 26.8, Anion Gap 13, BUN 19, Creatinine 0.74, Estim Creat Clear Calc 78.64, Est GFR (MDRD) Non-Af 98, BUN/Creatinine Ratio 25.1 H, Glucose 93, Calcium 8.7, Phosphorus 3.1, Magnesium 1.6 Micro: Microbiology 03/01/25 05:57 Blood Culture (Wb) - Right Wrist Blood Culture - Preliminary No growth in 48 hours. 03/01/25 05:40 Blood Culture (Wb) - Right Wrist Blood Culture - Preliminary No growth in 48 hours. 03/01/25 21:02 Mucosa - Nasopharyngeal Respiratory Panel (PCR) - Final 03/01/25 21:48 Urine, Clean Catch Streptococcus pneumoniae Antigen (M - Final 03/01/25 21:48 Urine, Clean Catch Legionella Antigen - Final Rhythm Strip Rhythm Strip: Sinus Tach Rate: 140 Ectopy: PVC(s) and - (short run of SVT) Social Homelessness:: Sheltered Physical Exam Narrative GENERAL: cooperative but frail looking HEENT: Atraumatic; normocephalic EYES; Anicteric, Normal Conjunctiva NECK; supple, normal thyroid, RESPIRATORY: Diminished to auscultation CARDIOVASCULAR: Regular S1 S2, GI: soft, normoactive bowel sounds, : No Renal angle tenderness; EXTREMITIES: No edema, no clubbing, MUSCULOSKELETAL: no muscle wasting NEURO: Awake; no lateralizing signs. SKIN: No Rash PSYCH; Flat affect Assessment & Plan Assessment/Plan (1) Obstructive pneumonia: (2) Pleural effusion: (3) Metastatic cancer to lung: PLAN: Plan Patient is a 69-year-old gentleman with history of stage IV metastatic lung CA who presented with shortness of breath 1. Acute hypoxia ? CT demonstrated mild increase in the size of the left upper lobe/left hilar mass. Increased left pleural effusion. Increased left basilar atelectasis/consolidation. Increased cavitation in the left lower lobe. Unchanged mediastinal and hilar lymphadenopathy. Mild increase in the size and number of multiple pulmonary nodules with the largest measuring 16 mm. Placed on supplemental oxygen with treatment of the underlying clinical etiology ? 03/04/2025; patient remains on supplemental oxygen plan is for patient to be assessed for home oxygen prior to being discharged 2. Postobstructive pneumonia ?Patient managed with Unasyn. ? 03/04/2025; patient WBC count remains elevated 3. Acute congestive heart failure with decreased ejection fraction ? 2D echo obtained demonstrated moderate global left ventricular systolic dysfunction with EF of 35%. Patient was placed on diuretic therapy ? 4. Metastatic lung CA ? Patient has apparently failed immunotherapy. Care is at the [facility] patient is requesting to be transferred [facility] did explain to patient the best option would be for patient to be discharged after being assessed for home oxygen and then he can follow-up 5. 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 Severe protein-calorie malnutrition in the context of chronic disease related to inadequate energy/oral ntake and increased energy expenditure ? Patient was seen in consultation by dietary recommendations reviewed 7. DVT prophylaxis ? Patient started on Lovenox CODE STATUS DNR CCA no intubation ? Consult was also placed to the palliative care team to discuss goals of care next 03/04/2025 patient seen much more cooperative compared to previously. Patient is scheduled to have a meeting with hospice service this afternoon. Decision regarding discharge made after the meeting Time spent in the patient's overall evaluation,decision-making process, review of diagnostic data, adjustment of management, discussion with other providers, nursing nursing and ancillary staff involved in patient's care documentation, 36Minutes Charges/Coding Visit Charges Inpatient E&M: 57828 Subs Hosp L2 03/04/25 1008 <Electronically signed by Zackery Soares MD> Cosigner Signature (if applicable): CC: ~ Signed [facility] Work Phone: 1(152) 537-557709-04-2025 Progress note Author Leeann bauman [facility] Note Date/Time March 04, 2025 8:58am [facility] Medical Records Department [address] [place] [address] Progress Note - Palliative 03/04/25 0830 MR#: [id number] Acct: [id number] Name: EMETERIO CHENEY Rep #:[id number] : 1955 69 From: Leeann Wu [employer] PCP: [facility] Status:ADM IN Location: [facility] [id number]- [id number] Subjective Subjective 03/04/25: I did meet with Addy in his room. He was in god spirits and Deyanira was also in the room for support. Pt did report having 9/10 pain last night. Iwas contacted to confirm that the pt takes Oxy 10mg PO for severe pain. Addy endorsed that he feels that going home with hospice is his best option. He plans to continue adjunct modalities to his traditional medical practices. He does acknowledge some SOB this morning but states manageable He was, initially speaking in 3-4 word sentences but as he became distracted with our discussion, I noted his breathing to ease and he was able to speak in complete sentences. He plans to continue writing a memoir about his dealing with cancer diagnosis. Addy is a deep thinker and I did encourage him to continue to do the things that brings him mick. All questions answered. 03/03/25: Creatinine is daily at bedside I did review documentation and labs from overnight. I did note that he has had an improvement in his WBCs from 13.5-11.4. Slight decrease in his hemoglobin hematocrit from 10.5-9.8 today and 32.6yesterday to 30.3 today. Platelets continue to be elevated at 491. He is slightly hyponatremic with a sodium of 131. BUN is slightly elevated at 20 from16 yesterday. Patient continues to receive Lasix. I then met with Emeterio finney. He was sitting up in his bed stabilizing his trunk well, away from theback of the bed. Family initially wanted to speak about alternative healing methods for his cancer. I do support his utilization of Eastern and Ayurvedic medicine to assist with his healing but I also discussed comfort measures while not receiving traditional Western medicine such as chemotherapy or radiation. Idid discuss the possibility of hospice services for comfort in addition to his nontraditional healing practices. He did state that he will think about it as he thought it may be a good adjunct if he is unable to receive any further treatment from a Western medicine standpoint. He did state that he would like to receive all of his care from the [facility] as he is embedded with them. He is hopeful that he will be able to find a provider that is willing to treat his cancer. We then discussed what the typical criteria is for continued Western medicine treatment in which Addy states understanding. I then discussed that yesterday he refused PT and OT and did not want to get the bed. I explained to him that he needs to be able to get out of the bed and utilize a walker if he wants any chance in receiving continue Western medicine. Addy did state understanding and states that he will work with PT and OT and is mad at himself or refusing yesterday. He expressed frustration over the management of his painmedications. He states that at home he takes oxycodone 2.5 mg or 5 mg up to 10 mg every 4 hours depending on symptoms and pain. I did state understanding and explained that that is a typical palliative order to utilize the lowest dose possible in managing symptoms. I do recommend oxycodone 2.5 mg p.o. every 4 hours as needed for mild pain 1-3 or mild shortness of breath, oxycodone 5 mg p.o. every 4 hours as needed for moderate pain 4-6 and/or moderate shortness of breath and oxycodone 10 mg p.o. every 4 hours as needed for severe pain 7-10 and/or severe shortness of breath. An attempt to meet Addy where he is at, will continue to discuss adjunct treatments and what that would look like for him going forward from a nutritional standpoint as well as his mind and spirit. Addy plans to more aggressively implement meditation, guided imagery and relaxation and exercises. He does note that his symptoms get worse when he becomes anxious or sad having a bad day. States good understanding of how his mind has been affecting symptoms. I did recommend that he finds a good balance between his Eastern philosophy and Western medicine which he states agreement. He does state that he is not against initiating hospice for comfort and that he would like to receive those services to through the [facility] and would like to speak to them first. He does have a palliative care provider at the [facility]. I did encourage him to reachout to them sooner rather than later to get assistance with managing his symptoms. I then spoke with Dr. Loya, to update him on Addy's desire to go to the [facility]. He recommended the possibility of discharge to home and then have the patient reach out to his primary care providers for next steps at the [facility]. Lastly, I did speak to Addy about POA and the importance of establishing a POA going forward. Particularly, because he would like his nicanor Deyanira to be his decision-maker. He plans to initiate them as soon as he is discharged. Addy did take lots of notes during our conversation and asked very good questions, which were answered. Palliative care will continue to follow for support as the patient's clinical picture evolves. 03/02/25Prior to meeting with the pt at bedside, I reviewed previous documentation, labs, radiological studies and well as diagnostic studies. I then met with the pt at bedside. I introduced myself to both Addy and his fiance , Deyanira and the concept of palliative care, which they voluntarily accepted our services. I ask Addy what he knew of his diagnosis, in which he confirmed that his oncologist stated that he has completed 3 rounds of immunotherapy with no improvement in his cancer. They are not convinced that hewill receive any further treatment from his oncologist. Addy continually talks about various doctors that have had great success with treatments Dr Segal and out of [place]. I did ask if he has reached out to these doctors and been accepted as a patient? He stated that he has not but states that he is going to have them contact the doctors here and they can tell them what to do. I explained to him that it typically doesn't work that way. He then talked about going to a cancer treatment center in [place]. Currently, he isnot well enough for travel and I did ask him how he plans to get there. He did not have a response, at this time. I am concerned that he may be experiencing denial in his grief process. He did endorse that he spends 90% of his time in bed, while at home. I then discussed his Echocardiogram and gave he and Marine overview of what it said with explanations. They both stated understanding. I explained his EF of 35% and elevated troponins x 3 of 36, 34 and 29. BNP of 2433, Along with his metastatic stage IV lung cancer without receiving any further treatments, would make him eligible for hospice. Both Addy and Deyanira stated that they don't feel they are ready for that. I did offer supportive listening and allowed them to change the subject and followed their trajectory. We did discuss the fact that he is very weak and will, most likely, not be a candidate for continued therapies unless he can gain some strength. He is open to continued PT/OT services to get stronger. He is currently waiting for a bed at the [facility] and states that he feels his symptoms are being controlled well, at this time. He is open to further conversations and Palliative care will continue to follow. All questions answered. Per hospitalist EMETERIO CHENEY, is a 69y/o male w/ hx of stage IV lung cancer notreceiving any treatment because he was not responding to immunotherapy and symptomatic anemia who presented [facility] ED 03/01/2025 for shortness of breath especially in the mornings but over the past 3 days he has continued to worsen, also has mild wheezing and coughing. Also notes the past 2weeks he has had increased swelling in his lower extremities. In the ED patientafebrile, patient with variable heart rate anywhere from 90s to 120s, blood pressure initially 106/92, respiratory rate 18 patient 98% on 3 L nasal cannula with a respiratory rate of 19. CBC with white blood cell count 14.4, [id number] and platelet count 459. BMP with a sodium of 126, up from 120 in December, BUNof 11 and creatinine 0.65, Trop of 36 with 4-hour Trop of 29, and a proBNP of 2433. Lactic acid within normal limits. CTA obtained and showed mild increase in size of patient's left upper lobe/left hilar mass with increased cavitation consolidation as well as left pleural effusion, mild increase in size and numberof pulmonary nodules, unchanged multifocal compression of the left pulmonary artery and branches. ED physician was concern for postobstructive pneumonia andfluid overload, patient received Rocephin and azithromycin as well as IV Lasix in the ED. Patient with [facility] and was supposed to be transferred however beds for prolonged amount of time and [facility] with [facility] to [facility] given lack of bed availability so hospitalist contacted for admission. Patient evaluated bedside. Patient reports he is still having shortness of breath but feels better than when he first arrived especially sincehe has been pain off fluid. He notes that he has been having shortness of breath and cough for a year and was diagnosed with stage IV lung cancer, usuallyhe short of breath when he wakes up in the morning but then will improve throughout the day and some days will not feel too bad at all over the past 3 days he has not been improving throughout the day, does cough but has difficultyproducing any sputum, also notes leg swelling for the past 2 weeks. He reports before his lung cancer diagnosis he had never been hospitalized and did not takeany medications, denies smoking, only thing he takes at home currently is oxycodone as needed since his diagnosis. Denies any breathing treatments at home and does not wear home oxygen. He denies any chest pain, no fever at home,occasionally gets some abdominal pain but nothing significant, had been having problems with constipation but that has resolved, denies nausea. Denies problems with urination Objective Data Objective Data Vital Signs: Vital Signs Temp Pulse Resp BP Pulse Ox O2 Del Method O2 Flow Rate 97.6 F L 112 H 19 H 115/93 H 95 Nasal Cannula 2 03/04/25 05:15 03/04/25 05:15 03/04/25 05:15 03/04/25 05:15 03/04/25 05:15 03/04/25 05:31 03/04/25 05:31 Oxygen Flow Rate (L/min) 2 Oxygen Delivery Method Nasal Cannula Weight: 140 lb 10.479 oz Body Mass Index (BMI) 20.2 Intake & Output: Intake and Output for Last 24 Hours 03/02/25 03/03/25 03/04/25 23:59 23:59 23:59 Intake Total 1335 / 1335 675 / 675 200 / 200 Output Total 2650 / 2650 2500 / 3000 1400 / 1400 Balance -1315 / -1315 -1825 / -2325 -1200 / -1200 Medical Nutrition Assessment Dietitian: Malnutrition Criteria Met Start: 03/02/25 08:20 Freq: Status: Active Protocol: Document 03/02/25 16:19 RMA (Rec: 03/02/25 16:19 RMA [id number]) Nutrition Malnutrition Evidence of Yes Malnutrition Exists Malnutrition (severe Chronic ): Evidenced By Suboptimal Energy Intake (Severe),Weight Loss (Severe), Physical Changes (Severe) Clinical Problem Chronic Disease or Condition Related Malnutrition Etiology Severe protein-calorie malnutrition in the context of chronic disease related to inadequate energy/oral intake and increased energy expenditure Signs/Symptoms as evidenced by ~15% unintentional body weight lossx 2 months; PO meeting less than 50% estimated nutrition needs x past 1 month; BMI 20.2; muscle wasting/fat depletion in the clavicle, face, arms and legs Status Active Problem Recommendation Dietitian Will liberalize diet to Regular. Recommendations/ Will add magic cup with lunch. Changes Will add 240mL ensure plus HP w/ breakfast and dinner tray. Additional ONS as needed. Lab / Micro Data Attestation: I reviewed the patient's lab results. 03/04/25 04:52 03/04/25 04:52 Labs: Laboratory Results - last 24 hr 03/03/25 04:56: Absolute Neuts (auto) 10.3 H, Absolute Lymphs (auto) 0.50 L, Total Counted 100, Neutrophils % (Manual) 90 H, Lymphocytes % (Manual) 4 L, Monocytes % (Manual) 2, Metamyelocytes % 3 H, Promyelocytes % 1 H, Platelet Estimate SLT INC, RBC Morphology NORM C+C 03/04/25 04:52: WBC 11.2 H, RBC 3.61 L, Hgb 10.1 L, Hct 30.5 L, MCV 84.5, MCH 28.0, MCHC 33.1, RDW Std Deviation 48.5 H, RDW Coeff of Hai 15.8 H, Plt Count 462 H, MPV 9.6, Neut % (Auto) Not Reportable, Absolute Neuts (auto) 9.3 H, Absolute Lymphs (auto) 1.00, Total Counted 100, Neutrophils % (Manual) 81 H, Band Neutrophils % 2, Lymphocytes % (Manual) 9 L, Monocytes % (Manual) 3, Eosinophils % (Manual) 2, Metamyelocytes % 2 H, Myelocytes % 1 H, Sodium 131 L, Potassium 3.5, Chloride 91 L, Carbon Dioxide 26.8, Anion Gap 13, BUN 19, Creatinine 0.74, Estim Creat Clear Calc 78.64, Est GFR (MDRD) Non-Af 98, BUN/Creatinine Ratio 25.1 H, Glucose 93, Calcium 8.7, Phosphorus 3.1, Magnesium 1.6 Micro: Microbiology 03/01/25 05:57 Blood Culture (Wb) - Right Wrist Blood Culture - Preliminary No growth in 48 hours. 03/01/25 05:40 Blood Culture (Wb) - Right Wrist Blood Culture - Preliminary No growth in 48 hours. 03/01/25 21:02 Mucosa - Nasopharyngeal Respiratory Panel (PCR) - Final 03/01/25 21:48 Urine, Clean Catch Streptococcus pneumoniae Antigen (M - Final 03/01/25 21:48 Urine, Clean Catch Legionella Antigen - Final Rhythm Strip Rhythm Strip: Sinus Tach Rate: 140 Ectopy: PVC(s) and - (short run of SVT) Social Homelessness:: Sheltered Physical Exam Const alert and oriented x3 General Appearance: cooperative Orientation / Consciousness: awake, oriented to person, oriented to place and oriented to time Nutritional Appearance: underweight HEENT normocephalic Eyes PERRL Neck full ROM General: normal visual inspection Resp Effort and Inspection: symmetric chest movement Auscultation: wheezes and diminished lung sounds Cardio regular rate GI GI Narrative: hernia noted Skin General Skin Exam: no breakdown Neuro oriented x3 and CN's II-XII intact bilaterally Sensorium / Orientation: awake, alert, oriented to person, oriented to place andoriented to time Psych Activity / Motor Behavior: appropriate eye contact Speech: normal speech Thought Process: normal thought process Charges/Coding Palliative Care Palliative Care: [id number] Follow up 50+ min Consulation Summary Current admission Current Code Status: DNRCC-A Associated Diagnosis: metastatic lung cancer Consult Data Date of Consult: 03/02/25 Location of consult: PCU Reason for referral: Goals of care Referral source: Dr. Loera Palliative care diagnosis (Summary list): Stage IV metastatic lung cancer, EF of35% Palliative care services/treatment (Accepted, as consult): accepted Case discussed with referring provider: discharge planning Palliative Assessment Advanced Directive - Current Admission Advance Directive: Advance Directive ON ADMISSION - REFERENCE 3 Do you have a Healthcare No 03/01/25 19:19 Living Will? Do you have a Healthcare Power No 03/01/25 19:19 of Elementary Math Tutor? Do You Want Additional Declined 03/01/25 19:19 Information on Advanced Directives or Healthcare Proxy/DPOA comments: nic Mcmillan. No formal POA, yet. Symptoms Dyspnea symptoms: Moderate Constipation symptoms: None Nausea symptoms: None Vomiting symptoms: None Depression symptoms: None Anorexia symptoms: Moderate Cough symptoms: None Insomnia symptoms: None Diarrhea symptoms: None Fatigue symptoms: Mild Weakness symptoms: Mild Confusion symptoms: None Impression & Recommendations Recommentation Palliative recommendations: pt having info meeting with hospice today at [address] Achieved as a result of this Palliative Care Encounter: [ [id number]] minutes were spent in total for this visit which consisted, primarily of counseling and education dealing with the complex and emotionally intense issues of symptom management and palliative care in the setting of serious and potentially life-threatening illness. Review of documentation, labs and radiological studies. ?Patient/family had the opportunity to ask questions Plan (1) Metastatic cancer to lung: PLAN: Medical management per primary team (2) Pleural effusion: PLAN: Medical management per primary team (3) Acute hypoxic respiratory failure: PLAN: Medical management per primary team O2 as needed and for comfort (4) Palliative care encounter: PLAN: Informational meeting from hospice today- Continued support from palliative care during admission 03/04/25 0858 <Electronically signed by Leeann GREEN> Cosigner Signature (if applicable): CC: ~ Signed [facility] Work Phone: 1(997) 937-537609-04-2025 Progress note [facility] Medical Records Department [address] [place] [address] Progress Note - Hospitalist 03/04/2557 MR#: [id number] Acct: [id number] Name: EMETERIO CHENEY Rep #:[id number] : 1955 69 From: Zackery Soares MD PCP: [facility] Status:ADM IN Location: [place] [address] Reason for Visit Chief Complaint: Shortness of breath Subjective Subjective Patient seen much more cooperative compared to previously. Patient is scheduledto have a meeting with hospice service this afternoon. Decision regarding discharge made after the meeting Objective Data Objective Data Vital Signs: Vital Signs Temp Pulse Resp BP Pulse Ox O2 Del Method O2 Flow Rate 97.6 F L 112 H 19 H 115/93 H 95 Nasal Cannula 2 03/04/25 05:15 03/04/25 05:15 03/04/25 05:15 03/04/25 05:15 03/04/25 05:15 03/04/25 05:31 03/04/25 05:31 Oxygen Flow Rate (L/min) 2 Oxygen Delivery Method Nasal Cannula Weight: 63.8 kg Body Mass Index (BMI) 20.2 Intake & Output: Intake and Output for Last 24 Hours 03/02/25 03/03/25 03/04/25 23:59 23:59 23:59 Intake Total 1335 / 1335 675 / 675 200 / 200 Output Total 2650 / 2650 2500 / 3000 1400 / 1400 Balance -1315 / -1315 -1825 / -2325 -1200 / -1200 Medical Nutrition Assessment Dietitian: Malnutrition Criteria Met Start: 03/02/25 08:20 Freq: Status: Active Protocol: Document 03/02/25 16:19 RMA (Rec: 03/02/25 16:19 RMA [id number]) Nutrition Malnutrition Evidence of Yes Malnutrition Exists Malnutrition (severe Chronic ): Evidenced By Suboptimal Energy Intake (Severe),Weight Loss (Severe), Physical Changes (Severe) Clinical Problem Chronic Disease or Condition Related Malnutrition Etiology Severe protein-calorie malnutrition in the context of chronic disease related to inadequate energy/oral intake and increased energy expenditure Signs/Symptoms as evidenced by ~15% unintentional body weight lossx 2 months; PO meeting less than 50% estimated nutrition needs x past 1 month; BMI 20.2; muscle wasting/fat depletion in the clavicle, face, arms and legs Status Active Problem Recommendation Dietitian Will liberalize diet to Regular. Recommendations/ Will add magic cup with lunch. Changes Will add 240mL ensure plus HP w/ breakfast and dinner tray. Additional ONS as needed. Lab / Micro Data 03/04/25 04:52 03/04/25 04:52 Labs: Laboratory Results - last 24 hr 03/03/25 04:56: Absolute Neuts (auto) 10.3 H, Absolute Lymphs (auto) 0.50 L, Total Counted 100, Neutrophils % (Manual) 90 H, Lymphocytes % (Manual) 4 L, Monocytes % (Manual) 2, Metamyelocytes % 3 H, Promyelocytes % 1 H, Platelet Estimate T INC, RBC Morphology NORM C+C 03/04/25 04:52: WBC 11.2 H, RBC 3.61 L, Hgb 10.1 L, Hct 30.5 L, MCV 84.5, MCH 28.0, MCHC 33.1, RDW Std Deviation 48.5 H, RDW Coeff of Hai 15.8 H, Plt Count 462 H, MPV 9.6, Neut % (Auto) Not Reportable, Absolute Neuts (auto) 9.3 H, Absolute Lymphs (auto) 1.00, Total Counted 100, Neutrophils % (Manual) 81 H, Band Neutrophils % 2, Lymphocytes % (Manual) 9 L, Monocytes % (Manual) 3, Eosinophils % (Manual) 2, Metamyelocytes % 2 H, Myelocytes % 1 H, Sodium 131 L, Potassium 3.5, Chloride 91 L, Carbon Dioxide 26.8, Anion Gap 13, BUN 19, Creatinine 0.74, Estim Creat Clear Calc 78.64, Est GFR (MDRD) Non-Af 98, BUN/Creatinine Ratio 25.1 H, Glucose 93, Calcium 8.7, Phosphorus 3.1, Magnesium 1.6 Micro: Microbiology 03/01/25 05:57 Blood Culture (Wb) - Right Wrist Blood Culture - Preliminary No growth in 48 hours. 03/01/25 05:40 Blood Culture (Wb) - Right Wrist Blood Culture - Preliminary No growth in 48 hours. 03/01/25 21:02 Mucosa - Nasopharyngeal Respiratory Panel (PCR) - Final 03/01/25 21:48 Urine, Clean Catch Streptococcus pneumoniae Antigen (M - Final 03/01/25 21:48 Urine, Clean Catch Legionella Antigen - Final Rhythm Strip Rhythm Strip: Sinus Tach Rate: 140 Ectopy: PVC(s) and - (short run of SVT) Social Homelessness:: Sheltered Physical Exam Narrative GENERAL: cooperative but frail looking HEENT: Atraumatic; normocephalic EYES; Anicteric, Normal Conjunctiva NECK; supple, normal thyroid, RESPIRATORY: Diminished to auscultation CARDIOVASCULAR: Regular S1 S2, GI: soft, normoactive bowel sounds, : No Renal angle tenderness; EXTREMITIES: No edema, no clubbing, MUSCULOSKELETAL: no muscle wasting NEURO: Awake; no lateralizing signs. SKIN: No Rash PSYCH; Flat affect Assessment & Plan Assessment/Plan (1) Obstructive pneumonia: (2) Pleural effusion: (3) Metastatic cancer to lung: PLAN: Plan Patient is a 69-year-old gentleman with history of stage IV metastatic lung CA who presented with shortness of breath 1. Acute hypoxia ? CT demonstrated mild increase in the size of the left upper lobe/left hilar mass. Increased left pleural effusion. Increased left basilar atelectasis/consolidation. Increased cavitation in the leftlower lobe. Unchanged mediastinal and hilar lymphadenopathy. Mild increase in the size and number of multiple pulmonary nodules with the largest measuring 16 mm. Placed on supplemental oxygen with treatment of the underlying clinical etiology ? 03/04/2025; patient remains on supplemental oxygen plan is for patient to be assessed for home oxygen prior to being discharged 2. Postobstructive pneumonia ?Patient managed with Unasyn. ? 03/04/2025; patient WBC count remains elevated 3. Acute congestive heart failure with decreased ejection fraction ? 2D echo obtained demonstrated moderate global left ventricular systolic dysfunction with EF of 35%. Patient was placed on diuretic therapy ? 4. Metastatic lung CA ? Patient has apparently failed immunotherapy. Care is at the [facility] did explain to patient the best option would be for patient to be discharged after being assessed for home oxygen and then he can follow-up 5. 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 Severe protein-calorie malnutrition in the context of chronic disease related to inadequate energy/oral ntake and increased energy expenditure ? Patient was seen in consultation by dietary recommendations reviewed 7. DVT prophylaxis ? Patient started on Lovenox CODE STATUS DNR CCA no intubation ? Consult was also placed to the palliative care team to discuss goals of care next 03/04/2025 patient seen much more cooperative compared to previously. Patient is scheduled to have a meeting with hospice service this afternoon. Decision regarding discharge made after the meeting Time spent in the patient's overall evaluation,decision-making process, review of diagnostic data, adjustment of management, discussion with other providers, nursing nursing and ancillary staff involved in patient's care documentation, 36Minutes Charges/Coding Visit Charges Inpatient E&M: 63155 Subs Hosp L2 03/04/25 1008 Cosigner Signature (if applicable): CC: ~ Signed [facility]09-04-2025 Progress note [facility] Medical Records Department [address] [place] [address] Progress Note - Palliative 03/04/25 0830 MR#: [id number] Acct: [id number] Name: EMETERIO CHENEY Clair Rep #:[id number] : 1955 69 From: Leeann GREEN PCP: [facility] Status:ADM IN Location: [facility] [id number] Subjective Subjective 03/04/25: I did meet with Addy in his room. He was in god spirits and Deyanira was also in the room for support. Pt did report having 9/10 pain last night. Iwas contacted to confirm that the pt takes Oxy 10mg PO for severe pain. Addy endorsed that he feels that going home with hospice is his best option. He plans to continue adjunct modalities to his traditional medical practices. He does acknowledge some SOB this morning but states manageable He was, initially speaking in 3-4word sentences but as he became distracted with our discussion, I noted his breathing to ease and he was able to speak in complete sentences. He plans to continue writing a memoir about his dealing with cancer diagnosis. Addy is a deep thinker and I did encourage him to continue to do the things that brings him mick. All questions answered. 03/03/25: Creatinine is daily at bedside I did review documentation and labs from overnight. I did note that he has had an improvement in his WBCs from 13.5-11.4. Slight decrease in his hemoglobin hematocrit from 10.5-9.8 today and 32.6yesterday to 30.3 today. Platelets continue to be elevated at 491. He is slightly hyponatremic with a sodium of 131. BUN is slightly elevated at 20 from16 yesterday.Patient continues to receive Lasix. I then met with Emeterio finney. He was sitting up in his bed stabilizing his trunk well, away from theback of the bed. Family initially wanted to speak about alternative healing methods for his cancer. I do support his utilization of Eastern and Ayurvedic medicine to assist with his healing but I also discussed comfort measures while not receiving traditional Western medicine such as chemotherapy or radiation. Idid discuss the possibility of hospice services for comfort in addition to his nontraditional healing practices. He did state that he will think about it as he thought it may be a good adjunct if he is unable to receive any further treatment from [facility] medicine standpoint. He did state that [facility] He is hopeful that he will be able to find a provider that is willing to treat his cancer. We then discussed what the typical criteria is for continued Western medicine tr eatment in which Addy states understanding. I then discussed that yesterday he refused PT and OT and did not want to get the bed. I explained to him that he needs to be able to get out of the bed and utilize a walker if he wants any chance in receiving continue Western medicine. Addy did state understanding and states that he will work with PT and OT and is mad at himself or refusing yesterday.He expressed frustration over the management of his painmedications. He states that at home he takes oxycodone 2.5 mg or 5 mg up to 10 mg every 4 hours depending on symptoms and pain. I did state understanding and explained that that is a typical palliative order to utilize the lowest dose possiblein managing symptoms. I do recommend oxycodone 2.5 mg p.o. every 4 hours as needed for mild pain 1-3 or mild shortness of breath, oxycodone 5 mg p.o. every 4 hours as needed for moderate pain 4-6 and/or moderate shortness of breath and oxycodone 10 mg p.o. every 4 hours as needed for severe pain 7-10 and/or severe shortness of breath. An attempt to meet Addy where he is at, will continue to discuss adjunct treatments and what that would look like for him going forward from a nutritional standpoint as well as his mind and spirit. Addy plans to more aggressively implement meditation, guided imagery and relaxation and exercises. He does note that his symptoms get worse when he becomes anxious or sad having a bad day. Statesgood understanding of how his mind has been affecting symptoms. I did recommend that he finds a good balance between his Eastern philosophy and Western medicine which he states agreement. He does state that he is not against initiating hospice for comfort and that he would like to receive those services to through [facility] and would like to speak to them first. He does have a palliative care provider at the [facility]. I did encourage him to reachout to them sooner rather than later to get assistance with managing his symptoms. I then spoke with Dr. Loya, to update him on Addy's desire to go to the [facility]. He recommended the possibility of discharge to home and then have the patient reach out to his primary care providers for next steps at the [facility]. Lastly, I did speak to Addy about POA and the importance of establishing a POA going forward. Particularly, because he would like his fitahira?Deyanira carreno to be his decision-maker. He plans to initiate them as soon as he is discharged. Addy did take lots of notes during our conversation and asked very good questions, which were answered. Palliative care will continue to follow for support as the patient's clinical picture evolves. 03/02/25Prior to meeting with the pt at bedside, I reviewed previous documentation, labs, radiological studies and well as diagnostic studies. I then met with the pt at bedside. I introduced myself to both Addy and his fiance , Deyanira and the concept of palliative care, which they voluntarily accepted our services. I ask Addy what he knew of his diagnosis, in which he confirmed that his oncologist stated that he has completed 3 rounds of immunotherapy with no improvement in his cancer. They are not convinced that hewill receive any further treatment from his oncologist. Addy continually talks about various doctors that have had great success with treatments Dr Segal and out of [place]. I did ask if he has reached out to these doctors and been accepted as a patient? He statedthat he has not but states that he is going to have them contact the doctors here and they can tell them what to do. I explained to him that it typically doesn't work that way. He then talked about going to a cancer treatment center in [place]. Currently, he isnot well enough for travel and I didask him how he plans to get there. He did not have a response, at this time. I am concerned that lorenza be experiencing denial in his grief process. He did endorse that he spends 90% of his time in bed, while at home. I then discussed his Echocardiogram and gave he and Marine overview of what it said with explanations. They both stated understanding. I explained his EF of 35% and elevated troponins x 3 of 36, 34 and 29. BNP of 2433, Along with his metastatic stage IV lung cancer without receiving any further treatments, would make him eligible for hospice. Both Addy and Deyanira stated thatthey don't feel they are ready for that. I did offer supportive listening and allowed them to change the subject and followed their trajectory. We did discuss the fact that he is very weak and will, most likely, not be a candidate for continued therapies unless he can gain some strength. He is opento continued PT/OT services to get stronger. He is currently waiting [facility] a [facility] and states that he feels his symptoms are being controlled well, at this time. He is open to further conversa tions and Palliative care will continue to follow. All questions answered. Per hospitalist EMETERIO CHENEY, is a 69y/o male w/ hx of stage IV lung cancer notreceiving any treatment because he was not responding to immunotherapy and symptomatic anemia who presented [facility] ED 03/01/2025 for shortness of breath especially in the mornings but over the past 3 days he has continued to worsen, also has mild wheezing and coughing. Also notes the past 2weeks he has had increased swelling in his lower extremities. In the ED patientafebrile, patient with variableheart rate anywhere from 90s to 120s, blood pressure initially 106/92, respiratory rate 18 patient 98% on 3 L nasal cannula with a respiratory rate of 19. CBC with white blood cell count 14.4, [id number] and platelet count 459. BMP with a sodium of 126, up from 120 in December, BUNof 11 and creatinine 0.65, Trop of 36 with 4-hour Trop of 29, and a proBNP of 2433. Lactic acid within normal limits.CTA obtained and showed mild increase in size of patient's left upper lobe/left hilar mass with increased cavitation consolidation as well as left pleural effusion, mild increase in size and numberofpulmonary nodules, unchanged multifocal compression of the left pulmonary artery and branches. ED physician was concern for postobstructive pneumonia andfluid overload, patient received Rocephin and azithromycin as well as IV Lasix in the ED. [facility] and [facility] for prolonged amount of time and [facility] givenlack of bed availability so hospitalist contacted for admission. Patient evaluated bedside. Patientreports he is still having shortness of breath but feels better than when he first arrived especially sincehe has been pain off fluid. He notes that he has been having shortness of breath and cough for a year and was diagnosed with stage IV lung cancer, usuallyhe short of breath when he wakes up inthe morning but then will improve throughout the day and some days will not feel too bad at all over the past 3 days he has not been improving throughout the day, does cough but has difficultyproducing any sputum, also notes leg swelling for the past 2 weeks. He reports before his lung cancer diagnosis he had never been hospitalized and did not takeany medications, denies smoking, only thing he takes at home currently is oxycodone as needed since his diagnosis. Denies any breathing treatments at home and does not wear home oxygen. He denies any chest pain, no fever at home,occasionally gets some abdominal pain but nothing significant, had been having problems with constipation but that has resolved, denies nausea. Denies problems with urination Objective Data Objective Data Vital Signs: Vital Signs Temp Pulse Resp BP Pulse Ox O2 Del Method O2 Flow Rate 97.6 F L 112 H 19 H 115/93 H 95 Nasal Cannula 2 03/04/25 05:15 03/04/25 05:15 03/04/25 05:15 03/04/25 05:15 03/04/25 05:15 03/04/25 05:31 03/04/25 05:31 Oxygen Flow Rate (L/min) 2 Oxygen Delivery Method Nasal Cannula Weight: 140 lb 10.479 oz Body Mass Index (BMI) 20.2 Intake & Output: Intake and Output for Last 24 Hours 03/02/25 03/03/25 03/04/25 23:59 23:59 23:59 Intake Total 1335 / 1335 675 / 675 200 / 200 Output Total 2650 / 2650 2500 / 3000 1400 / 1400 Balance -1315 / -1315 -1825 / -2325 -1200 / -1200 Medical Nutrition Assessment Dietitian: Malnutrition Criteria Met Start: 03/02/25 08:20 Freq: Status: Active Protocol: Document 03/02/25 16:19 RMA (Rec: 03/02/25 16:19 RMA [id number]) Nutrition Malnutrition Evidence of Yes Malnutrition Exists Malnutrition (severe Chronic ): Evidenced By Suboptimal Energy Intake (Severe),Weight Loss (Severe), Physical Changes (Severe) Clinical Problem Chronic Disease or Condition Related Malnutrition Etiology Severe protein-calorie malnutrition in the context of chronic disease related to inadequate energy/oral intake and increased energy expenditure Signs/Symptoms as evidenced by ~15% unintentional body weight lossx 2 months; PO meeting less than 50% estimated nutrition needs x past 1 month; BMI 20.2; muscle wasting/fat depletion in the clavicle, face, arms and legs Status Active Problem Recommendation Dietitian Will liberalize diet to Regular. Recommendations/ Will add magic cup with lunch. Changes Will add 240mL ensure plus HP w/ breakfast and dinner tray. Additional ONS as needed. Lab / Micro Data Attestation: I reviewed the patient's lab results. 03/04/25 04:52 03/04/25 04:52 Labs: Laboratory Results - last 24 hr 03/03/25 04:56: Absolute Neuts (auto) 10.3 H, Absolute Lymphs (auto) 0.50 L, Total Counted 100, Neutrophils % (Manual) 90 H, Lymphocytes % (Manual) 4 L, Monocytes % (Manual) 2, Metamyelocytes % 3 H, Promyelocytes % 1 H, Platelet Estimate SLT INC, RBC Morphology NORM C+C 03/04/25 04:52: WBC 11.2 H, RBC 3.61 L, Hgb 10.1 L, Hct 30.5 L, MCV 84.5, MCH 28.0, MCHC 33.1, RDW Std Deviation 48.5 H, RDW Coeff of Hai 15.8 H, Plt Count 462 H, MPV 9.6, Neut % (Auto) Not Reportable, Absolute Neuts (auto) 9.3 H, Absolute Lymphs (auto) 1.00, Total Counted 100, Neutrophils % (Manual) 81 H, Band Neutrophils % 2, Lymphocytes % (Manual) 9 L, Monocytes % (Manual) 3, Eosinophils % (Manual) 2, Metamyelocytes % 2 H, Myelocytes % 1 H, Sodium 131 L, Potassium 3.5, Chloride 91 L, Carbon Dioxide 26.8, Anion Gap 13, BUN 19, Creatinine 0.74, Estim Creat Clear Calc 78.64, Est GFR (MDRD) Non-Af 98, BUN/Creatinine Ratio 25.1 H, Glucose 93, Calcium 8.7, Phosphorus 3.1, Magnesium 1.6 Micro: Microbiology 03/01/25 05:57 Blood Culture (Wb) - Right Wrist Blood Culture - Preliminary No growth in 48 hours. 03/01/25 05:40 Blood Culture (Wb) - Right Wrist Blood Culture - Preliminary No growth in 48 hours. 03/01/25 21:02 Mucosa - Nasopharyngeal Respiratory Panel (PCR) - Final 03/01/25 21:48 Urine, Clean Catch Streptococcus pneumoniae Antigen (M - Final 03/01/25 21:48 Urine, Clean Catch Legionella Antigen - Final Rhythm Strip Rhythm Strip: Sinus Tach Rate: 140 Ectopy: PVC(s) and - (short run of SVT) Social Homelessness:: Sheltered Physical Exam Const alert and oriented x3 General Appearance: cooperative Orientation / Consciousness: awake, oriented to person, oriented to place and oriented to time Nutritional Appearance: underweight HEENT normocephalic Eyes PERRL Neck full ROM General: normal visual inspection Resp Effort and Inspection: symmetric chest movement Auscultation: wheezes and diminished lung sounds Cardio regular rate GI GI Narrative: hernia noted Skin General Skin Exam: no breakdown Neuro oriented x3 and CN's II-XII intact bilaterally Sensorium / Orientation: awake, alert, oriented to person, oriented to place andoriented to time Psych Activity / Motor Behavior: appropriate eye contact Speech: normal speech Thought Process: normal thought process Charges/Coding Palliative Care Palliative Care: 15095 Follow up 50+ min Consulation Summary Current admission Current Code Status: DNRCC-A Associated Diagnosis: metastatic lung cancer Consult Data Date of Consult: 03/02/25 Location of consult: PCU Reason for referral: Goals of care Referral source: Dr. Loera Palliative care diagnosis (Summary list): Stage IV metastatic lung cancer, EF of35% Palliative care services/treatment (Accepted, as consult): accepted Case discussed with referring provider: discharge planning Palliative Assessment Advanced Directive - Current Admission Advance Directive: Advance Directive ON ADMISSION - REFERENCE 3 Do you have a Healthcare No 03/01/25 19:19 Living Will? Do you have a Healthcare Power No 03/01/25 19:19 of Elementary Math Tutor? Do You Want Additional Declined 03/01/25 19:19 Information on Advanced Directives or Healthcare Proxy/DPOA comments: nic Mcmillan. No formal POA, yet. Symptoms Dyspnea symptoms: Moderate Constipation symptoms: None Nausea symptoms: None Vomiting symptoms: None Depression symptoms: None Anorexia symptoms: Moderate Cough symptoms: None Insomnia symptoms: None Diarrhea symptoms: None Fatigue symptoms: Mild Weakness symptoms: Mild Confusion symptoms: None Impression & Recommendations Recommentation Palliative recommendations: pt having info meeting with hospice today at [address] Achieved as a result of this Palliative Care Encounter: [ [id number]] minutes were spent in total for this visit which consisted, primarily of counseling and education dealing with the complex and emotionally intense issues of symptom management and palliative care in the setting of serious and potentially life-threatening illness. Review of documentation, labs and radiological studies. ?Patient/family had the opportunity to ask questions Plan (1) Metastatic cancer to lung: PLAN: Medical management per primary team (2) Pleural effusion: PLAN: Medical management per primary team (3) Acute hypoxic respiratory failure: PLAN: Medical management per primary team O2 as needed and for comfort (4) Palliative care encounter: PLAN: Informational meeting from hospice today- Continued support from palliative care during admission 03/04/25 0858 Cosigner Signature (if applicable): CC: ~ Signed [facility]09-03-2025 Progress note Author Leeann bauman [facility] Note Date/Time March 03, 2025 4:13pm [facility] Medical Records Department [address] [place] [address] Progress Note - Palliative 03/03/25 1010 MR#: [id number] Acct: [id number] Name: EMETERIO CHENEY Rep #:[id number] : 1955 69 From: Leeann Wu [employer] [facility] Subjective Subjective 03/03/25: Creatinine is daily at bedside I did review documentation and labs from overnight. I did note that he has had an improvement in his WBCs from 13.5-11.4. Slight decrease in his hemoglobin hematocrit from 10.5-9.8 today and 32.6yesterday to 30.3 today. Platelets continue to be elevated at 491. He is slightly hyponatremic with a sodium of 131. BUN is slightly elevated at 20 from16 yesterday. Patient continues to receive Lasix. I then met with Emeterio finney. He was sitting up in his bed stabilizing his trunk well, away from theback of the bed. Family initially wanted to speak about alternative healing methods for his cancer. I do support his utilization of Eastern and Ayurvedic medicine to assist with his healing but I also discussed comfort measures while not receiving traditional Western medicine such as chemotherapy or radiation. Idid discuss the possibility of hospice services for comfort in addition to his nontraditional healing practices. He did state that he will think about it as he thought it may be a good adjunct if he is unable to receive any further treatment from a Western medicine standpoint. He did state that he would like to receive all of [facility] care [facility] as [facility] is [facility] with them. He is hopeful that he will be able to find a provider that is willing to treat his cancer. We then discussed what the typical criteria is for continued Western medicine treatment in which Addy states understanding. I then discussed that yesterday he refused PT and OT and did not want to get the bed. I explained to him that he needs to be able to get out of the bed and utilize a walker if he wants any chance in receiving continue Western medicine. Addy did state understanding and states that he will work with PT and OT and is mad at himself or refusing yesterday. He expressed frustration over the management of his painmedications. He states that at home he takes oxycodone 2.5 mg or 5 mg up to 10 mg every 4 hours depending on symptoms and pain. I did state understanding and explained that that is a typical palliative order to utilize the lowest dose possible in managing symptoms. I do recommend oxycodone 2.5 mg p.o. every 4 hours as needed for mild pain 1-3 or mild shortness of breath, oxycodone 5 mg p.o. every 4 hours as needed for moderate pain 4-6 and/or moderate shortness of breath and oxycodone 10 mg p.o. every 4 hours as needed for severe pain 7-10 and/or severe shortness of breath. An attempt to meet Addy where he is at, will continue to discuss adjunct treatments and what that would look like for him going forward from a nutritional standpoint as well as his mind and spirit. Addy plans to more aggressively implement meditation, guided imagery and relaxation and exercises. He does note that his symptoms get worse when he becomes anxious or sad having a bad day. States good understanding of how his mind has been affecting symptoms. I did recommend that he finds a good balance between his Eastern philosophy and Western medicine which he states agreement. He does state that he is not against initiating hospice for comfort and that he would like to receive those services to through [facility] and would like to speak to them first. He does have a palliative care provider at the [facility]. I did encourage him to reachout to them sooner rather than later to get assistance with managing his symptoms. I then spoke with Dr. Loya, to [facility] He recommended the possibility of discharge to home and then have the patient reach out to his primary [facility]. Lastly, I did speak to Addy about POA and the importance of establishing a POA going forward. Particularly, because he would like his titopatito Deyanira to be his decision-maker. He plans to initiate them as soon as he is discharged. Addy did take lots of notes during our conversation and asked very good questions, which were answered. Palliative care will continue to follow for support as the patient's clinical picture evolves. 03/02/25Prior to meeting with the pt at bedside, I reviewed previous documentation, labs, radiological studies and well as diagnostic studies. I then met with the pt at bedside. I introduced myself to both Addy and his fiance , Deyanira and the concept of palliative care, which they voluntarily accepted our services. I ask Addy what he knew of his diagnosis, in which he confirmed that his oncologist stated that he has completed 3 rounds of immunotherapy with no improvement in his cancer. They are not convinced that hewill receive any further treatment from his oncologist. Addy continually talks about various doctors that have had great success with treatments Dr Segal and out of [place]. I did ask if he has reached out to these doctors and been accepted as a patient? He stated that he has not but states that he is going to have them contact the doctors here and they can tell them what to do. I explained to him that it typically doesn't work that way. He then talked about going to a cancer treatment center in [place]. Currently, he isnot well enough for travel and I did ask him how he plans to get there. He did not have a response, at this time. I am concerned that he may be experiencing denial in his grief process. He did endorse that he spends 90% of his time in bed, while at home. I then discussed his Echocardiogram and gave he and Marine overview of what it said with explanations. They both stated understanding. I explained his EF of 35% and elevated troponins x 3 of 36, 34 and 29. BNP of 2433, Along with his metastatic stage IV lung cancer without receiving any further treatments, would make him eligible for hospice. Both Addy and Deyanira stated that they don't feel they are ready for that. I did offer supportive listening and allowed them to change the subject and followed their trajectory. We did discuss the fact that he is very weak and will, most likely, not be a candidate for continued therapies unless he can gain some strength. He is open to continued PT/OT services to get stronger. [facility] and states that he feels his symptoms are being controlled well, at this time. He is open to further conversations and Palliative care will continue to follow. All questions answered. Per hospitalist EMETERIO CARDHOE, is a 69y/o male w/ hx of stage IV lung cancer notreceiving any treatment because he was not responding to immunotherapy and symptomatic anemia who presented [facility] ED 03/01/2025 for shortness of breath especially in the mornings but over the past 3 days he has continued to worsen, also has mild wheezing and coughing. Also notes the past 2weeks he has had increased swelling in his lower extremities. In the ED patientafebrile, patient with variable heart rate anywhere from 90s to 120s, blood pressure initially 106/92, respiratory rate 18 patient 98% on 3 L nasal cannula with a respiratory rate of 19. CBC with white blood cell count 14.4, [id number] and platelet count 459. BMP with a sodium of 126, up from 120 in December, BUNof 11 and creatinine 0.65, Trop of 36 with 4-hour Trop of 29, and a proBNP of 2433. Lactic acid within normal limits. CTA obtained and showed mild increase in size of patient's left upper lobe/left hilar mass with increased cavitation consolidation as well as left pleural effusion, mild increase in size and numberof pulmonary nodules, unchanged multifocal compression of the left pulmonary artery and branches. ED physician was concern for postobstructive pneumonia andfluid overload, patient received Rocephin and azithromycin as well as IV Lasix in the ED. [facility] with [facility] and was supposed to be transferred [facility]no beds [facility] prolonged [facility] so hospitalist contacted for admission. Patient evaluated bedside. Patient reports he is still having shortness of breath but feels better than when he first arrived especially sincehe has been pain off fluid. He notes that he has been having shortness of breath and cough for a year and was diagnosed with stage IV lung cancer, usuallyhe short of breath when he wakes up in the morning but then will improve throughout the day and some days will not feel too bad at all over the past 3 days he has not been improving throughout the day, does cough but has difficultyproducing any sputum, also notes leg swelling for the past 2 weeks. He reports before his lung cancer diagnosis he had never been hospitalized and did not takeany medications, denies smoking, only thing he takes at home currently is oxycodone as needed since his diagnosis. Denies any breathing treatments at home and does not wear home oxygen. He denies any chest pain, no fever at home,occasionally gets some abdominal pain but nothing significant, had been having problems with constipation but that has resolved, denies nausea. Denies problems with urination Objective Data Objective Data Vital Signs: Vital Signs Temp Pulse Resp BP Pulse Ox O2 Del Method O2 Flow Rate 98.2 F 106 H 18 114/87 H 99 Nasal Cannula 3 03/03/25 09:48 03/03/25 09:48 03/03/25 09:48 03/03/25 09:48 03/03/25 09:48 03/03/25 09:55 03/03/25 09:55 Oxygen Flow Rate (L/min) 3 Oxygen Delivery Method Nasal Cannula Weight: 140 lb 10.479 oz Body Mass Index (BMI) 20.2 Intake & Output: Intake and Output for Last 24 Hours 03/01/25 03/02/25 03/03/25 23:59 23:59 23:59 Intake Total 660 / 860 1335 / 1335 220 / 220 Output Total 2650 / 2650 Balance 660 / 660 -1315 / -1315 220 / 220 Medical Nutrition Assessment Dietitian: Malnutrition Criteria Met Start: 03/02/25 08:20 Freq: Status: Active Protocol: Document 03/02/25 16:19 RMA (Rec: 03/02/25 16:19 RMA [id number]) Nutrition Malnutrition Evidence of Yes Malnutrition Exists Malnutrition (severe Chronic ): Evidenced By Suboptimal Energy Intake (Severe),Weight Loss (Severe), Physical Changes (Severe) Clinical Problem Chronic Disease or Condition Related Malnutrition Etiology Severe protein-calorie malnutrition in the context of chronic disease related to inadequate energy/oral intake and increased energy expenditure Signs/Symptoms as evidenced by ~15% unintentional body weight lossx 2 months; PO meeting less than 50% estimated nutrition needs x past 1 month; BMI 20.2; muscle wasting/fat depletion in the clavicle, face, arms and legs Status Active Problem Recommendation Dietitian Will liberalize diet to Regular. Recommendations/ Will add magic cup with lunch. Changes Will add 240mL ensure plus HP w/ breakfast and dinner tray. Additional ONS as needed. Lab / Micro Data Attestation: I reviewed the patient's lab results. Lab results narrative: Improvement of WBCs to 11.4, slightly worsening hemoglobin of 9.8 from 10.5. Platelets continue to be elevated 491. Slight hyponatremia at 131, slightly elevated BUN at 20 from 16 yesterday. Creatinine remains within normal limits at 0.73 and GFR is 98.Improvement of WBCs to 11.4, slightly worsening hemoglobinof 9.8 from 10.5. Platelets continue to be elevated 491. Slight hyponatremia at 131, slightly elevated BUN at 20 from 16 yesterday. Creatinine remains within normal limits at 0.73 and GFR is 98. 03/03/25 04:56 03/03/25 04:56 Labs: Laboratory Results - last 24 hr 03/03/25 04:56: WBC 11.4 H, RBC 3.57 L, Hgb 9.8 L, Hct 30.3 L, MCV 84.9, MCH 27.5, MCHC 32.3, RDW Std Deviation 48.1 H, RDW Coeff of Hai 15.8 H, Plt Count 491 H, MPV 9.8, Neut % (Auto) Not Reportable, Sodium 131 L, Potassium 3.9, Chloride 93 L, Carbon Dioxide 26.5, Anion Gap 12, BUN 20 H, Creatinine 0.73, Estim Creat Clear Calc 78.64, Est GFR (MDRD) Non-Af 98, BUN/Creatinine Ratio 27.1 H, Glucose 99, Calcium 9.2, Phosphorus 3.1 Micro: Microbiology 03/01/25 05:57 Blood Culture (Wb) - Right Wrist Blood Culture - Preliminary No growth in 48 hours. 03/01/25 05:40 Blood Culture (Wb) - Right Wrist Blood Culture - Preliminary No growth in 48 hours. 03/01/25 21:02 Mucosa - Nasopharyngeal Respiratory Panel (PCR) - Final 03/01/25 21:48 Urine, Clean Catch Streptococcus pneumoniae Antigen (M - Final 03/01/25 21:48 Urine, Clean Catch Legionella Antigen - Final Radiography Diagnostic Testing: Radiology Impression Echocardiogram 03/01/25 19:28 Interpretation Summary Moderate global left ventricular systolic dysfunction. The left ventricular ejection fraction is 35 %. Stage 1 diastolic dysfunction. Mild (1+) tricuspid valve insufficiency. The study was technically difficult. Contrast injection was performed. Ordering Physician: Kavita Myles Referring Physician: [facility] Performed By: Ankita Prather RDCS, RVT Rhythm Strip Rhythm Strip: Sinus Tach Rate: 140 Ectopy: PVC(s) and - (short run of SVT) Social Homelessness:: Sheltered Physical Exam Const oriented x3 General Appearance: cooperative and comfortable Orientation / Consciousness: awake, oriented to person, oriented to place and oriented to time Exam Limitations: no limitations Nutritional Appearance: thin HEENT normocephalic Eyes Pupil: PERRL Neck full ROM Resp Resp Narrative: During the initial part of our interview and conversation, patient was speaking in 2-3 word sentences. By the end of our conversation the patient was speaking in full sentences without shortness of breath. Effort and Inspection: symmetric chest movement Auscultation: diminished lung sounds Cardio Rate: tachycardic Heart Sounds: murmur Peripheral Pulses: pulses 2+ throughout GI GI Narrative: Patient initially had some upper abdominal discomfort which did dissipate duringour conversation. Auscultation: normoactive bowel sounds Rectal Exam: deferred Bladder / Kidney Exam: other External collection device in place Back/Spine no CVA tenderness Extremity Peripheral Pulses: Yes pulses 2+ throughout Skin no rashes or lesions noted Neuro oriented x3 and CN's II-XII intact bilaterally Speech: speech normal Gait (Neuro): unable to assess gait Psych mental status grossly normal Attitude: calm and engaged Activity / Motor Behavior: appropriate eye contact Speech: normal speech Thought Process: normal thought process Thought Content: normal thought content Attention / Concentration: attention grossly intact Memory / Cognition: memory grossly intact Insight: other I feel that the patient's insight has improved today. He appearsto be more realistic in his expectations Charges/Coding Palliative Care Palliative Care: [id number] Follow up 50+ min Consulation Summary Current admission Current Code Status: DNRCC-A Associated Diagnosis: Stage IV lung CA, debility, HFrEF Consult Data Date of Consult: 03/02/25 Location of consult: PCU Reason for referral: Goals of care Referral source: Dr. Loera Palliative care diagnosis (Summary list): Stage IV metastatic lung cancer, EF of35% Palliative care services/treatment (Accepted, as consult): accepted Case discussed with referring provider: Fany in person Palliative Assessment Advanced Directive - Current Admission Advance Directive: Advance Directive ON ADMISSION - REFERENCE 3 Do you have a Healthcare No 03/01/25 19:19 Living Will? Do you have a Healthcare Power No 03/01/25 19:19 of Elementary Math Tutor? Do You Want Additional Declined 03/01/25 19:19 Information on Advanced Directives or Symptoms Dyspnea symptoms: Moderate Constipation symptoms: None Nausea symptoms: None Vomiting symptoms: None Depression symptoms: Mild Anorexia symptoms: Mild (improved appetite and eats small frequent meals) Cough symptoms: Mild (intermittent ) Insomnia symptoms: Mild Diarrhea symptoms: None Fatigue symptoms: Mild Weakness symptoms: Moderate Confusion symptoms: None Impression & Recommendations Recommentation Palliative recommendations: although pt would qualify for hospice he is considering the possibility of hospice depending upon what his oncologist gives as options going forward. Encouter Achieved as a result of this Palliative Care Encounter: [ [id number], [id number]] minutes were spent in total for this visit which consisted, primarily of counseling and education dealing with the complex and emotionally intense issues of symptom management and palliative care in the setting of serious and potentially life-threatening illness. Review of documentation, labs and radiological studies. ?Patient/family had the opportunity to ask questions Plan (1) Metastatic cancer to lung: PLAN: Medical management per primary team (2) Acute hypoxic respiratory failure: PLAN: Medical management per primary team Recommend trending pulse ox to assess need for home O2 (3) Pleural effusion: PLAN: Medical management per primary team (4) Palliative care encounter: PLAN: - Continued goals of care conversations - Recommend hospice in the event that the patient is no longer a candidate to receive any further targeted cancer treatment - Continued outpatient palliative care services through the [facility] 03/03/25 1049 <Electronically signed by Leeann GREEN> Cosigner Signature (if applicable): CC: ~ Signed ADDENDUM by PETER Miller on 03/03/25 at 1613 Addendum pt has elected to go home with hospice services. 03/03/25 1613<Electronically signed by Leeann GREEN> Cosigner Signature (if applicable): cc: ~* Signed [facility] Work Phone: 1(226) 431-152909-03-2025 Progress note [facility] Medical Records Department [address] [place] [address] Progress Note - Palliative 03/03/25 1010 MR#: [id number] Acct: [id number] Name: EMETERIO CHENEY Rep #:[id number] : 1955 69 From: Leeann GREEN [facility]CP[facility] Status:ADM IN Location: [facility] [id number] Subjective Subjective 03/03/25: Creatinine is daily at bedside I did review documentation and labs from overnight. I did note that he has had an improvement in his WBCs from 13.5-11.4. Slight decrease in his hemoglobin hematocrit from 10.5-9.8 today and 32.6yesterday to 30.3 today. Platelets continue to be elevated at 491. He is slightly hyponatremic with a sodium of 131. BUN is slightly elevated at 20 from16 yesterday.Patient continues to receive Lasix. I then met with Emeterio finney. He was sitting up in his bed stabilizing his trunk well, away from theback of the bed. Family initially wanted to speak about alternative healing methods for his cancer. I do support his utilization of Eastern and Ayurvedic medicine to assist with his healing but I also discussed comfort measures while not receiving traditional Western medicine such as chemotherapy or radiation. Idid discuss the possibility of hospice services for comfort in addition to his nontraditional healing practices. He did state that he will think about it as he thought it may be a good adjunct if he is unable to receive any further treatment from aWestern medicine standpoint. He did state that [facility] He is hopeful that he will be able to find a provider that is willing to treat his cancer. We then discussed what the typical criteria is for continued Western medicine tr eatment in which Addy states understanding. I then discussed that yesterday he refused PT and OT and did not want to get the bed. I explained to him that he needs to be able to get out of the bed and utilize a walker if he wants any chance in receiving continue Western medicine. Addy did state understanding and states that he will work with PT and OT and is mad at himself or refusing yesterday.He expressed frustration over the management of his painmedications. He states that at home he takes oxycodone 2.5 mg or 5 mg up to 10 mg every 4 hours depending on symptoms and pain. I did state understanding and explained that that is a typical palliative order to utilize the lowest dose possiblein managing symptoms. I do recommend oxycodone 2.5 mg p.o. every 4 hours as needed for mild pain 1-3 or mild shortness of breath, oxycodone 5 mg p.o. every 4 hours as needed for moderate pain 4-6 and/or moderate shortness of breath and oxycodone 10 mg p.o. every 4 hours as needed for severe pain 7-10 and/or severe shortness of breath. An attempt to meet Addy where he is at, will continue to discuss adjunct treatments and what that would look like for him going forward from a nutritional standpoint as well as his mind and spirit. Addy plans to more aggressively implement meditation, guided imagery and relaxation and exercises. He does note that his symptoms get worse when he becomes anxious or sad having a bad day. Statesgood understanding of how his mind has been affecting symptoms. I did recommend that he finds a good balance between his Eastern philosophy and Western medicine which he states agreement. He does state that he is not against initiating hospice for comfort and that he would like to receive those services to through the [facility] and would like to speak to them first. He does have a palliative care provider at the [facility]. I did encourage him to reachout to them sooner rather than later to get assistance with managing his symptoms. I then spoke with Dr. Loya, to update him [facility] He recommended the possibility of discharge to home and then have the patient reach out to his primary care providers [facility]. Lastly, I did speak to Addy about POA and the importance of establishing a POA going forward. Particularly, because he would like his fiVania caputoanita to be his decision-maker. He plans to initiate them as soon as he is discharged. Addy did take lots of notes during our conversation and asked very good questions, which were answered. Palliative care will continue to follow for support as the patient's clinical picture evolves. 03/02/25Prior to meeting with the pt at bedside, I reviewed previous documentation, labs, radiological studies and well as diagnostic studies. I then met with the pt at bedside. I introduced myself to both Addy and his fiance , Deyanira and the concept of palliative care, which they voluntarily accepted our services. I ask Addy what he knew of his diagnosis, in which he confirmed that his oncologist stated that he has completed 3 rounds of immunotherapy with no improvement in his cancer. They are not convinced that hewill receive any further treatment from his oncologist. Addy continually talks about various doctors that have had great success with treatments Dr Segal and out of [place]. I did ask if he has reached out to these doctors and been accepted as a patient? He statedthat he has not but states that he is going to have them contact the doctors here and they can tell them what to do. I explained to him that it typically doesn't work that way. He then talked about going to a cancer treatment center in [place]. Currently, he isnot well enough for travel and I didask him how he plans to get there. He did not have a response, at this time. I am concerned that lorenza be experiencing denial in his grief process. He did endorse that he spends 90% of his time in bed, while at home. I then discussed his Echocardiogram and gave he and Marine overview of what it said with explanations. They both stated understanding. I explained his EF of 35% and elevated troponins x 3 of 36, 34 and 29. BNP of 2433, Along with his metastatic stage IV lung cancer without receiving any further treatments, would make him eligible for hospice. Both Addy and Deyanira stated thatthey don't feel they are ready for that. I did offer supportive listening and allowed them to change the subject and followed their trajectory. We did discuss the fact that he is very weak and will, most likely, not be a candidate for continued therapies unless he can gain some strength. He is opento continued PT/OT services to get stronger. He is currently waiting for a bed [facility] and states that he feels his symptoms are being controlled well, at this time. He is open to further conversa tions and Palliative care will continue to follow. All questions answered. Per hospitalist EMETERIO CHENEY, is a 69y/o male w/ hx of stage IV lung cancer notreceiving any treatment because he was not responding to immunotherapy and symptomatic anemia who presented [facility] ED 03/01/2025 for shortness of breath especially in the mornings but over the past 3 days he has continued to worsen, also has mild wheezing and coughing. Also notes the past 2weeks he has had increased swelling in his lower extremities. In the ED patientafebrile, patient with variableheart rate anywhere from 90s to 120s, blood pressure initially 106/92, respiratory rate 18 patient 98% on 3 L nasal cannula with a respiratory rate of 19. CBC with white blood cell count 14.4, xrytcpfdwi23.2 and platelet count 459. BMP with a sodium of 126, up from 120 in December, BUNof 11 and creatinine 0.65, Trop of 36 with 4-hour Trop of 29, and a proBNP of 2433. Lactic acid within normal limits.CTA obtained and showed mild increase in size of patient's left upper lobe/left hilar mass with increased cavitation consolidation as well as left pleural effusion, mild increase in size and numberofpulmonary nodules, unchanged multifocal compression of the left pulmonary artery and branches. ED physician was concern for postobstructive pneumonia andfluid overload, patient received Rocephin and azithromycin as well as IV Lasix in the ED. Patient with [facility] and [facility] so hospitalist contacted for admission. Patient evaluated bedside. Patientreports he is still having shortness of breath but feels better than when he first arrived especially sincehe has been pain off fluid. He notes that he has been having shortness of breath and cough for a year and was diagnosed with stage IV lung cancer, usuallyhe short of breath when he wakes up inthe morning but then will improve throughout the day and some days will not feel too bad at all over the past 3 days he has not been improving throughout the day, does cough but has difficultyproducing any sputum, also notes leg swelling for the past 2 weeks. He reports before his lung cancer diagnosis he had never been hospitalized and did not takeany medications, denies smoking, only thing he takes at home currently is oxycodone as needed since his diagnosis. Denies any breathing treatments at home and does not wear home oxygen. He denies any chest pain, no fever at home,occasionally gets some abdominal pain but nothing significant, had been having problems with constipation but that has resolved, denies nausea. Denies problems with urination Objective Data Objective Data Vital Signs: Vital Signs Temp Pulse Resp BP Pulse Ox O2 Del Method O2 Flow Rate 98.2 F 106 H 18 114/87 H 99 Nasal Cannula 3 03/03/25 09:48 03/03/25 09:48 03/03/25 09:48 03/03/25 09:48 03/03/25 09:48 03/03/25 09:55 03/03/25 09:55 Oxygen Flow Rate (L/min) 3 Oxygen Delivery Method Nasal Cannula Weight: 140 lb 10.479 oz Body Mass Index (BMI) 20.2 Intake & Output: Intake and Output for Last 24 Hours 03/01/25 03/02/25 03/03/25 23:59 23:59 23:59 Intake Total 660 / 860 1335 / 1335 220 / 220 Output Total 2650 / 2650 Balance 660 / 660 -1315 / -1315 220 / 220 Medical Nutrition Assessment Dietitian: Malnutrition Criteria Met Start: 03/02/25 08:20 Freq: Status: Active Protocol: Document 03/02/25 16:19 RMA (Rec: 03/02/25 16:19 RMA [id number]) Nutrition Malnutrition Evidence of Yes Malnutrition Exists Malnutrition (severe Chronic ): Evidenced By Suboptimal Energy Intake (Severe),Weight Loss (Severe), Physical Changes (Severe) Clinical Problem Chronic Disease or Condition Related Malnutrition Etiology Severe protein-calorie malnutrition in the context of chronic disease related to inadequate energy/oral intake and increased energy expenditure Signs/Symptoms as evidenced by ~15% unintentional body weight lossx 2 months; PO meeting less than 50% estimated nutrition needs x past 1 month; BMI 20.2; muscle wasting/fat depletion in the clavicle, face, arms and legs Status Active Problem Recommendation Dietitian Will liberalize diet to Regular. Recommendations/ Will add magic cup with lunch. Changes Will add 240mL ensure plus HP w/ breakfast and dinner tray. Additional ONS as needed. Lab / Micro Data Attestation: I reviewed the patient's lab results. Lab results narrative: Improvement of WBCs to 11.4, slightly worsening hemoglobin of 9.8 from 10.5. Platelets continue to be elevated 491. Slight hyponatremia at 131, slightly elevated BUN at 20 from 16 yesterday. Creatinine remains within normal limits at 0.73 and GFR is 98.Improvement of WBCs to 11.4, slightly worsening hemoglobinof 9.8 from 10.5. Platelets continue to be elevated 491. Slight hyponatremia at 131, slightly elevated BUN at 20 from 16 yesterday. Creatinine remains within normal limits at 0.73 and GFR is 98. 03/03/25 04:56 03/03/25 04:56 Labs: Laboratory Results - last 24 hr 03/03/25 04:56: WBC 11.4 H, RBC 3.57 L, Hgb 9.8 L, Hct 30.3 L, MCV 84.9, MCH 27.5, MCHC 32.3, RDW Std Deviation 48.1 H, RDW Coeff of Hai 15.8 H, Plt Count 491 H, MPV 9.8, Neut % (Auto) Not Reportable, Sodium 131 L, Potassium 3.9, Chloride 93 L, Carbon Dioxide 26.5, Anion Gap 12, BUN 20 H, Creatinine 0.73, Estim Creat Clear Calc 78.64, Est GFR (MDRD) Non-Af 98, BUN/Creatinine Ratio 27.1 H, [id number], Calcium 9.2, Phosphorus 3.1 Micro: Microbiology 03/01/25 05:57 Blood Culture (Wb) - Right Wrist Blood Culture - Preliminary No growth in 48 hours. 03/01/25 05:40 Blood Culture (Wb) - Right Wrist Blood Culture - Preliminary No growth in 48 hours. 03/01/25 21:02 Mucosa - Nasopharyngeal Respiratory Panel (PCR) - Final 03/01/25 21:48 Urine, Clean Catch Streptococcus pneumoniae Antigen (M - Final 03/01/25 21:48 Urine, Clean Catch Legionella Antigen - Final Radiography Diagnostic Testing: Radiology Impression Echocardiogram 03/01/25 19:28 Interpretation Summary Moderate global left ventricular systolic dysfunction. The left ventricular ejection fraction is 35%. Stage 1 diastolic dysfunction. Mild (1+) tricuspid valve insufficiency. The study was technically difficult. Contrast injection was performed. Ordering Physician: Kavita Myles Referring Physician: [facility] Performed By: Ankita Prather RDCS, RVT Rhythm Strip Rhythm Strip: Sinus Tach Rate: 140 Ectopy: PVC(s) and - (short run of SVT) Social Homelessness:: Sheltered Physical Exam Const oriented x3 General Appearance: cooperative and comfortable Orientation / Consciousness: awake, oriented to person, oriented to place and oriented to time Exam Limitations: no limitations Nutritional Appearance: thin HEENT normocephalic Eyes Pupil: PERRL Neck full ROM Resp Resp Narrative: During the initial part of our interview and conversation, patient was speaking in 2-3 word sentences. By the end of our conversation the patient was speaking in full sentences without shortness of breath. Effort and Inspection: symmetric chest movement Auscultation: diminished lung sounds Cardio Rate: tachycardic Heart Sounds: murmur Peripheral Pulses: pulses 2+ throughout GI GI Narrative: Patient initially had some upper abdominal discomfort which did dissipate duringour conversation. Auscultation: normoactive bowel sounds Rectal Exam: deferred Bladder / Kidney Exam: other External collection device in place Back/Spine no CVA tenderness Extremity Peripheral Pulses: Yes pulses 2+ throughout Skin no rashes or lesions noted Neuro oriented x3 and CN's II-XII intact bilaterally Speech: speech normal Gait (Neuro): unable to assess gait Psych mental status grossly normal Attitude: calm and engaged Activity / Motor Behavior: appropriate eye contact Speech: normal speech Thought Process: normal thought process Thought Content: normal thought content Attention / Concentration: attention grossly intact Memory / Cognition: memory grossly intact Insight: other I feel that the patient's insight has improved today. He appearsto be more realisticin his expectations Charges/Coding Palliative Care Palliative Care: 65420 Follow up 50+ min Consulation Summary Current admission Current Code Status: DNRCC-A Associated Diagnosis: Stage IV lung CA, debility, HFrEF Consult Data Date of Consult: 03/02/25 Location of consult: PCU Reason for referral: Goals of care Referral source: Dr. Loera Palliative care diagnosis (Summary list): Stage IV metastatic lung cancer, EF of35% Palliative care services/treatment (Accepted, as consult): accepted Case discussed with referring provider: Fany in person Palliative Assessment Advanced Directive - Current Admission Advance Directive: Advance Directive ON ADMISSION - REFERENCE 3 Do you have a Healthcare No 03/01/25 19:19 Living Will? Do you have a Healthcare Power No 03/01/25 19:19 of Elementary Math Tutor? Do You Want Additional Declined 03/01/25 19:19 Information on Advanced Directives or Symptoms Dyspnea symptoms: Moderate Constipation symptoms: None Nausea symptoms: None Vomiting symptoms: None Depression symptoms: Mild Anorexia symptoms: Mild (improved appetite and eats small frequent meals) Cough symptoms: Mild (intermittent ) Insomnia symptoms: Mild Diarrhea symptoms: None Fatigue symptoms: Mild Weakness symptoms: Moderate Confusion symptoms: None Impression & Recommendations Recommentation Palliative recommendations: although pt would qualify for hospice he is considering the possibilityof hospice depending upon what his oncologist gives as options going forward. Encouter Achieved as a result of this Palliative Care Encounter: [ [id number], [id number]] minutes were spent in total for this visit which consisted, primarily of counseling and education dealing with the complex and emotionally intense issues of symptom management and palliative care in the setting of serious and potentially life-threatening illness. Review of documentation, labs and radiological studies. ?Patient/family had the opportunity to ask questions Plan (1) Metastatic cancer to lung: PLAN: Medical management per primary team (2) Acute hypoxic respiratory failure: PLAN: Medical management per primary team Recommend trending pulse ox to assess need for home O2 (3) Pleural effusion: PLAN: Medical management per primary team (4) Palliative care encounter: PLAN: - Continued goals of care conversations - Recommend hospice in the event that the patient is no longer a candidate to receive any further targeted cancer treatment - Continued outpatient palliative care services through the [facility] 03/03/25 1049 Cosigner Signature (if applicable): CC: ~ Signed ADDENDUM by PETER Miller on 03/03/25 at 1613 Addendum pt has elected to go home with hospice services. 03/03/25 1613 Cosigner Signature (if applicable): cc: ~* Signed [facility]09-03-2025 Progress note Author Zackery Soares [facility] Note Date/Time March 03, 2025 11:13am [facility] Medical Records Department [address] [place] [address] Progress Note - Hospitalist 03/03/25 0744 MR#: [id number] Acct: [id number] Name: EMETERIO CHENEY Rep #:[id number] : 1955 69 From: Zackery Soares MD PCP: [facility] Status:ADM IN Location: [facility] [id number] Reason for Visit Chief Complaint: Shortness of breath Subjective Subjective Patient is a 69-year-old gentleman with history of stage IV metastatic lung CA who presented with shortness of breath Objective Data Objective Data Vital Signs: Vital Signs Temp Pulse Resp BP Pulse Ox O2 Del Method O2 Flow Rate 97.5 F L 109 H 20 H 138/84 H 94 Nasal Cannula 3 03/03/25 02:16 03/03/25 07:28 03/03/25 07:28 03/03/25 02:16 03/03/25 07:28 03/03/25 07:28 03/03/25 07:28 Oxygen Flow Rate (L/min) 3 Oxygen Delivery Method Nasal Cannula Weight: 63.8 kg Body Mass Index (BMI) 20.2 Intake & Output: Intake and Output for Last 24 Hours 03/01/25 03/02/25 03/03/25 23:59 23:59 23:59 Intake Total 660 / 860 1335 / 1335 220 / 220 Output Total 2650 / 2650 Balance 660 / 660 -1315 / -1315 220 / 220 Medical Nutrition Assessment Dietitian: Malnutrition Criteria Met Start: 03/02/25 08:20 Freq: Status: Active Protocol: Document 03/02/25 16:19 RMA (Rec: 03/02/25 16:19 RMA [id number]) Nutrition Malnutrition Evidence of Yes Malnutrition Exists Malnutrition (severe Chronic ): Evidenced By Suboptimal Energy Intake (Severe),Weight Loss (Severe), Physical Changes (Severe) Clinical Problem Chronic Disease or Condition Related Malnutrition Etiology Severe protein-calorie malnutrition in the context of chronic disease related to inadequate energy/oral intake and increased energy expenditure Signs/Symptoms as evidenced by ~15% unintentional body weight lossx 2 months; PO meeting less than 50% estimated nutrition needs x past 1 month; BMI 20.2; muscle wasting/fat depletion in the clavicle, face, arms and legs Status Active Problem Recommendation Dietitian Will liberalize diet to Regular. Recommendations/ Will add magic cup with lunch. Changes Will add 240mL ensure plus HP w/ breakfast and dinner tray. Additional ONS as needed. Lab / Micro Data 03/03/25 04:56 03/03/25 04:56 Labs: Laboratory Results - last 24 hr 03/03/25 04:56: WBC 11.4 H, RBC 3.57 L, Hgb 9.8 L, Hct 30.3 L, MCV 84.9, MCH 27.5, MCHC 32.3, RDW Std Deviation 48.1 H, RDW Coeff of Hai 15.8 H, Plt Count 491 H, MPV 9.8, Neut % (Auto) Not Reportable, Sodium 131 L, Potassium 3.9, Chloride 93 L, Carbon Dioxide 26.5, Anion Gap 12, BUN 20 H, Creatinine 0.73, Estim Creat Clear Calc 78.64, Est GFR (MDRD) Non-Af 98, BUN/Creatinine Ratio 27.1 H, Glucose 99, Calcium 9.2, Phosphorus 3.1 Micro: Microbiology 03/01/25 21:02 Mucosa - Nasopharyngeal Respiratory Panel (PCR) - Final 03/01/25 21:48 Urine, Clean Catch Streptococcus pneumoniae Antigen (M - Final 03/01/25 21:48 Urine, Clean Catch Legionella Antigen - Final Radiography Diagnostic Testing: Radiology Impression Echocardiogram 03/01/25 19:28 Interpretation Summary Moderate global left ventricular systolic dysfunction. The left ventricular ejection fraction is 35 %. Stage 1 diastolic dysfunction. Mild (1+) tricuspid valve insufficiency. The study was technically difficult. Contrast injection was performed. Ordering Physician: Kavita Myles Referring Physician: [facility] Performed By: Ankita Prather RDCS, RVT Rhythm Strip Rhythm Strip: Sinus Tach Rate: 140 Ectopy: PVC(s) and - (short run of SVT) Social Homelessness:: Sheltered Physical Exam Narrative GENERAL: cooperative but frail looking HEENT: Atraumatic; normocephalic EYES; Anicteric, Normal Conjunctiva NECK; supple, normal thyroid, RESPIRATORY: Diminished to auscultation CARDIOVASCULAR: Regular S1 S2, GI: soft, normoactive bowel sounds, : No Renal angle tenderness; EXTREMITIES: No edema, no clubbing, MUSCULOSKELETAL: no muscle wasting NEURO: Awake; no lateralizing signs. SKIN: No Rash PSYCH; Flat affect Assessment & Plan Assessment/Plan (1) Obstructive pneumonia: (2) Pleural effusion: (3) Metastatic cancer to lung: PLAN: Plan Patient is a 69-year-old gentleman with history of stage IV metastatic lung CA who presented with shortness of breath 1. Acute hypoxia ? CT demonstrated mild increase in the size of the left upper lobe/left hilar mass. Increased left pleural effusion. Increased left basilar atelectasis/consolidation. Increased cavitation in the left lower lobe. Unchanged mediastinal and hilar lymphadenopathy. Mild increase in the size and number of multiple pulmonary nodules with the largest measuring 16 mm. Please on supplemental oxygen with treatment of the underlying clinical etiology 2. Postobstructive pneumonia ?Patient managed with Unasyn. 3. Acute congestive heart failure with decreased ejection fraction ? 2D echo obtained demonstrated moderate global left ventricular systolic dysfunction with EF of 35%. Patient was placed on diuretic therapy ? 4. Metastatic lung CA ? Patient has apparently failed immunotherapy. Care is at the [facility] patient is requesting to be transferred to the [facility] did explain to patient the best option would be for patient to be discharged after being assessed for home oxygen and then he can follow-up 5. 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 Severe protein-calorie malnutrition in the context of chronic disease related to inadequate energy/oral ntake and increased energy expenditure ? Patient was seen in consultation by dietary recommendations reviewed 7. DVT prophylaxis ? Patient started on Lovenox CODE STATUS DNR CCA no intubation ? Consult was also placed to the palliative care team to discuss goals of care next Charges/Coding Visit Charges Inpatient E&M: 85465 Subs Hosp L2 03/03/25 1113 <Electronically signed by Zackery Soares MD> Cosigner Signature (if applicable): CC: ~ Signed [facility] Work Phone: [phone]) 357-942309-03-2025 Consult note Author [facility] Cortes [facility] Note Date/Time March 03, 2025 10:08am [facility] Medical Records Department [address] [place] [address] Consultation - Palliative Care 03/02/25 1356 MR#: [id number] Acct: [id number] Name: EMETERIO CHENEY Rep #:[id number] : 1955 69 From: Leeann GREEN PCP: [facility] Status:ADM IN Location: [address] Medical History Lung cancer Home Medications ?Medication ?Instructions ?Recorded ?Last Taken ?Type dexamethasone 4 mg tablet 4 mg PO DAILY unknown Unknown History empagliflozin 25 mg tablet 12.5 mg PO DAILY unknown Unknown History (Jardiance) metoprolol succinate 25 mg 25 mg PO DAILY unknown 08/25 Unknown History tablet,extended release 24 hr (Toprol XL) ondansetron 8 mg disintegrating 8 mg PO Q8H nausea 08/25 Unknown History tablet oxycodone 5 mg capsule 5 mg PO Q4H pain 03/02/25 History Allergy/AdvReac Type Severity Reaction Status Date / Time No Known Allergies Allergy Verified 01/04/25 06:26 Social History Smoking Status: Former smoker Homelessness:: Sheltered Prior Cardiac Testing/Procedures Prior Cardiac Testing/Procedures: Echocardiogram (EF of 35%/Moderate global L ventricular systolic dysfunction) ROS ROS Narrative pt feels that his symptoms are being well controlled, at this time with Oxycodone 2.5mg PO [id number] Constitutional Constitutional: Reports as per HPI and weakness Eyes Eyes: Reports as per HPI ENT HEENT: Reports systems reviewed and no addt'l complaints, except as documented Cardiovascular Cardiovascular: Reports dyspnea at rest, dyspnea on exertion, fatigue and leg edema Respiratory/Chest Respiratory/Chest: Reports dyspnea on exertion, shortness of breath at rest and shortness of breath with exertion Gastrointestinal Gastrointestinal: Reports systems reviewed and no addt'l complaints, except as documented Genitourinary Genitourinary: Reports dribbling and urinary incontinence Integumentary Integumentary: Reports systems reviewed and no addt'l complaints, except as documented Neurologic Neurologic: Reports systems reviewed and no addt'l complaints, except as documented Psychiatric Psychiatric: Reports systems reviewed and no addt'l complaints, except as documented Hematologic/Lymphatic Hematologic/Lymphatic: Reports anemia Allergic/Immunologic Allergic/Immunologic: Reports systems reviewed and no addt'l complaints, except as documented Physical Exam Narrative shortness of breath Const oriented x3 General Appearance: cooperative HEENT normocephalic Mouth: dry mucous membranes Resp Effort and Inspection: tachypneic Auscultation: crackles bilateral and localized (left worse than right ) and diminished lung sounds Cardio Rate: tachycardic GI GI Narrative: hernia noted Extremity normal capillary refill Neuro Speech: speech normal Gait (Neuro): unable to assess gait Psych Psych Narrative: concerns for denial about the severity of his CA diagnosis. Some concern abouthis insight into his ability to call in famous doctors to heal his cancer. Charges/Coding Palliative Care Palliative Care: 94135 New Pt Consult 80+ min HPI Current admission Current Code Status: DNRCC-A Associated Diagnosis: Stage IV metastatic lung cancer Consult Data Date of Consult: 03/02/25 Location of consult: PCU Reason for referral: Goals of care Referral source: Dr. Loera Palliative care diagnosis (Summary list): Stage IV metastatic lung cancer, EF of35% Palliative care services/treatment (Accepted, as consult): accepted Case discussed with referring provider: Luz Maria HPI Narrative HPI Narrative: Prior to meeting with the pt at bedside, I reviewed previous documentation, labs, radiological studies and well as diagnostic studies. I then met with the pt at bedside. I introduced myself to both Addy and his fiance , Valerie andthe concept of palliative care, which they voluntarily accepted our services. Charlyk Addy what he knew of his diagnosis, in which he confirmed that his oncologist stated that he has completed 3 rounds of immunotherapy with no improvement in his cancer. They are not convinced that he will receive any further treatment from his oncologist. Addy continually talks about various doctors that have had great success with treatments Dr Segal and out of [place]. I did ask if he has reached out to these doctors and been acceptedas a patient? He stated that he has not but states that he is going to have them contact the doctors here and they can tell them what to do. I explained tocharles that it typically doesn't work that way. He then talked about going to a cancer treatment center in [place]. Currently, he is not well enough for travel and I did ask him how he plans to get there. He did not have a response, at this time. I am concerned that he may be experiencing denial in his grief process. He did endorse that he spends 90% of his time in bed, while at home. I then discussed his Echocardiogram and gave he and Valerie a overview of what it said with explanations. They both stated understanding. I explained his EF of 35% and elevated troponins x 3 of 36, 34 and 29. BNP of 2433, Along with his metastatic stage IV lung cancer without receiving any further treatments, would make him eligible for hospice. Both Addy and Valerie stated that they don't feel they are ready for that. I did offer supportive listening and allowed them to change the subject and followed their trajectory. We did discuss the fact that he is very weak and will, most likely, not be a candidate for continued therapies unless he can gain some strength. He is open to continued PT/OT services to get stronger. He is currently waiting for a bed at the [facility] and states that he feels his symptoms are being controlled well, at this time. He is open to further conversations and Palliative care will continue to follow. All questions answered. Per hospitalist EMETERIO CHENEY, is a 69y/o male w/ hx of stage IV lung cancer notreceiving any treatment because he was not responding to immunotherapy and symptomatic anemia who presented [facility] ED 03/01/2025 for shortness of breath especially in the mornings but over the past 3 days he has continued to worsen, also has mild wheezing and coughing. Also notes the past 2weeks he has had increased swelling in his lower extremities. In the ED patientafebrile, patient with variable heart rate anywhere from 90s to 120s, blood pressure initially 106/92, respiratory rate 18 patient 98% on 3 L nasal cannula with a respiratory rate of 19. CBC with white blood cell count 14.4, [id number] and platelet count 459. BMP with a sodium of 126, up from 120 in December, BUNof 11 and creatinine 0.65, Trop of 36 with 4-hour Trop of 29, and a proBNP of 2433. Lactic acid within normal limits. CTA obtained and showed mild increase in size of patient's left upper lobe/left hilar mass with increased cavitation consolidation as well as left pleural effusion, mild increase in size and numberof pulmonary nodules, unchanged multifocal compression of the left pulmonary artery and branches. ED physician was concern for postobstructive pneumonia andfluid overload, patient received Rocephin and azithromycin as well as IV Lasix in the ED. Patient with [facility] and was supposed to be transferred howeverno beds for prolonged amount of time and [facility] okay with admission to our institution given lack of bed availability so hospitalist contacted for admission. Patient evaluated bedside. Patient reports he is still having shortness of breath but feels better than when he first arrived especially sincehe has been pain off fluid. He notes that he has been having shortness of breath and cough for a year and was diagnosed with stage IV lung cancer, usuallyhe short of breath when he wakes up in the morning but then will improve throughout the day and some days will not feel too bad at all over the past 3 days he has not been improving throughout the day, does cough but has difficultyproducing any sputum, also notes leg swelling for the past 2 weeks. He reports before his lung cancer diagnosis he had never been hospitalized and did not takeany medications, denies smoking, only thing he takes at home currently is oxycodone as needed since his diagnosis. Denies any breathing treatments at home and does not wear home oxygen. He denies any chest pain, no fever at home,occasionally gets some abdominal pain but nothing significant, had been having problems with constipation but that has resolved, denies nausea. Denies problems with urination Palliative Assessment Advanced Directive - Current Admission Advance Directive: Advance Directive ON ADMISSION - REFERENCE 3 Do you have a Healthcare No 03/01/25 19:19 Living Will? Do you have a Healthcare Power No 03/01/25 19:19 of Elementary Math Tutor? Do You Want Additional Declined 03/01/25 19:19 Information on Advanced Directives or Healthcare Proxy/DPOA comments: no formal paperwork but verbally states that hisfiance, Valerie. Psychosocial/Spiritual Information Living situation/Marital status: lives with his Fiance Geographic location: [place] Supports: family Shinto/Judi or spiritual preference: states no jain but endorses being very spiritual. Refused visit from mickey. Spiritual distress: denies Prior functional status: has been mostly bedbound 90% of the time Assistive devices at home: cane Cultrual issues: none Information about the patient as a person: Pt states that he is a positive person that researches everything Symptoms Palliative performance scale: 40 Palliative prognostic index: 8.0 (if the PPI is 6.0 or greater, survival could be less than three weeks) Short term prognosis is guarded, joint terminal attack controller prognosis is poor. Dyspnea symptoms: Moderate (on O2@2liter. None at home ) Constipation symptoms: None Nausea symptoms: None Vomiting symptoms: None Depression symptoms: None Anorexia symptoms: Mild Cough symptoms: Mild Insomnia symptoms: Moderate Diarrhea symptoms: None Fatigue symptoms: Moderate Weakness symptoms: Severe Confusion symptoms: None Objective Data Objective Data Vital Signs: Vital Signs Temp Pulse Resp BP Pulse Ox O2 Del Method O2 Flow Rate 97.6 F L 110 H 22 H 109/94 H 98 Nasal Cannula 2 03/02/25 10:37 03/02/25 10:40 03/02/25 10:40 03/02/25 10:37 03/02/25 10:37 03/02/25 10:37 03/02/25 10:37 Oxygen Flow Rate (L/min) 2 Oxygen Delivery Method Nasal Cannula Weight: 140 lb 10.479 oz Body Mass Index (BMI) 20.2 Intake & Output: Intake and Output for Last 24 Hours 02/28/25 03/01/25 03/02/25 23:59 23:59 23:59 Intake Total 660 / 860 980 / 980 Output Total 400 / 400 Balance 660 / 660 580 / 580 Lab / Micro Data Attestation: I reviewed the patient's lab results. (chronic anemia 10.5/26.1, WBC's 13.5 from 14.4, BNP 2433) 03/02/25 04:45 03/02/25 04:45 Labs: Laboratory Results - last 24 hr 03/01/25 23:49: POC Glucose 113 H 03/02/25 04:45: WBC 13.5 H, RBC 3.85 L, Hgb 10.5 L, Hct 32.6 L, MCV 84.7, MCH 27.3, MCHC 32.2, RDW Std Deviation 48.2 H, RDW Coeff of Hai 15.8 H, Plt Count 496 H, MPV 9.8, Neut % (Auto) Not Reportable, Absolute Neuts (auto) 12.2 H, Absolute Lymphs (auto) 0.68 L, Total Counted 100, Neutrophils % (Manual) 90 H, Lymphocytes % (Manual) 5 L, Monocytes % (Manual) 3, Metamyelocytes % 1, Myelocytes % 1 H, Diff Path Review May foll, Anisocytosis 1+, Tear Drop Cells RARE, Schistocytes RARE, Sodium 133, Potassium 3.9, Chloride 93 L, Carbon Dioxide 26.1, Anion Gap 14, BUN 16, Creatinine 0.80, Estim Creat Clear Calc 78.64, Est GFR (MDRD) Non-Af 96, BUN/Creatinine Ratio 20.6 H, Glucose 147 H, Calcium 9.0, Magnesium 1.7, Total Bilirubin 0.41, AST 40 H, ALT 18, Alkaline Phosphatase 109, Total Protein 6.2, Albumin 2.8 L, Globulin 3.4, Albumin/Globulin Ratio 0.8 L, TSH 1.400 Micro: Microbiology 03/01/25 21:02 Mucosa - Nasopharyngeal Respiratory Panel (PCR) - Final 03/01/25 21:48 Urine, Clean Catch Streptococcus pneumoniae Antigen (M - Final 03/01/25 21:48 Urine, Clean Catch Legionella Antigen - Final Radiography Diagnostic Testing: Radiology Impression Echocardiogram 03/01/25 19:28 Interpretation Summary Moderate global left ventricular systolic dysfunction. The left ventricular ejection fraction is 35 %. Stage 1 diastolic dysfunction. Mild (1+) tricuspid valve insufficiency. The study was technically difficult. Contrast injection was performed. Ordering Physician: Kavita Myles Referring Physician: [facility] Performed By: Ankita Prather, JUAN DIEGO, RVT Rhythm Strip Rhythm Strip: Sinus Tach Rate: 140 Ectopy: PVC(s) and - (short run of SVT) Social Homelessness:: Sheltered Impressions & Recommendations Patient & Family Issues discussed with the patient and family: goals of care going forward Patient goal: pt wants total healing of his stage IV lung CA Family goal: family is same as pt Ethical & Legal Ethical and legal: needs formal DPOA for medical decisions Impressions Impressions: Ongoing goals of care conversations needed with the pt. Recommentation Palliative recommendations: although pt would qualify for hospice he is currently electing continued medical management Encouter Achieved as a result of this Palliative Care Encounter: [[id number], [id number] ] minutes were spent in total for this visit which consisted, primarily of counseling and education dealing with the complex and emotionally intense issues of symptom management and palliative care in the setting of serious and potentially life-threatening illness. Review of documentation, labs and radiological studies. ?Patient/family had the opportunity to ask questions Plan (1) Acute hypoxic respiratory failure: PLAN: medical managmeent per primary team recommend continued use of Oxycodone for pain and dyspnea (2) Pleural effusion: PLAN: medical management per primary team (3) Metastatic cancer to lung: PLAN: medical management per primary team (4) Obstructive pneumonia: PLAN: medical managment per primary team (5) Palliative care encounter: PLAN: -recommend continued goals of care conversations -support for pt and family as they continue aggressive medical management PLAN: Plan as above 03/02/251934 <Electronically signed by Leeann GREEN> Cosigner Signature (if applicable): [facility]~ Signed ADDENDUM by PETER Miller on 03/03/25 at 1008 Addendum PtsJuan M Jacinto's name is florencia Mcmillan 03/03/25 1008<Electronically signed by Leeann GREEN> Cosigner Signature (if applicable): cc: [facility] ~* Signed [facility] Work Phone: [phone]) 472-726209-03-2025 Progress note [facility] Medical Records Department [address] [place] [address] Progress Note - Hospitalist 03/03/25 0744 MR#: [id number] Acct: [id number] Name: EMETERIO CHENEY Rep #:[id number] : 1955 69 From: Zackery Soares MD PCP: [facility] Status:ADM IN Location: [place] [address] Reason for Visit Chief Complaint: Shortness of breath Subjective Subjective Patient is a 69-year-old gentleman with history of stage IV metastatic lung CA who presented with shortness of breath Objective Data Objective Data Vital Signs: Vital Signs Temp Pulse Resp BP Pulse Ox O2 Del Method O2 Flow Rate 97.5 F L 109 H 20 H 138/84 H 94 Nasal Cannula 3 03/03/25 02:16 03/03/25 07:28 03/03/25 07:28 03/03/25 02:16 03/03/25 07:28 03/03/25 07:28 03/03/25 07:28 Oxygen Flow Rate (L/min) 3 Oxygen Delivery Method Nasal Cannula Weight: 63.8 kg Body Mass Index (BMI) 20.2 Intake & Output: Intake and Output for Last 24 Hours 03/01/25 03/02/25 03/03/25 23:59 23:59 23:59 Intake Total 660 / 860 1335 / 1335 220 / 220 Output Total 2650 / 2650 Balance 660 / 660 -1315 / -1315 220 / 220 Medical Nutrition Assessment Dietitian: Malnutrition Criteria Met Start: 03/02/25 08:20 Freq: Status: Active Protocol: Document 03/02/25 16:19 RMA (Rec: 03/02/25 16:19 RMA [id number]) Nutrition Malnutrition Evidence of Yes Malnutrition Exists Malnutrition (severe Chronic ): Evidenced By Suboptimal Energy Intake (Severe),Weight Loss (Severe), Physical Changes (Severe) Clinical Problem Chronic Disease or Condition Related Malnutrition Etiology Severe protein-calorie malnutrition in the context of chronic disease related to inadequate energy/oral intake and increased energy expenditure Signs/Symptoms as evidenced by ~15% unintentional body weight lossx 2 months; PO meeting less than 50% estimated nutrition needs x past 1 month; BMI 20.2; muscle wasting/fat depletion in the clavicle, face, arms and legs Status Active Problem Recommendation Dietitian Will liberalize diet to Regular. Recommendations/ Will add magic cup with lunch. Changes Will add 240mL ensure plus HP w/ breakfast and dinner tray. Additional ONS as needed. Lab / Micro Data 03/03/25 04:56 03/03/25 04:56 Labs: Laboratory Results - last 24 hr 03/03/25 04:56: WBC 11.4 H, RBC 3.57 L, Hgb 9.8 L, Hct 30.3 L, MCV 84.9, MCH 27.5, MCHC 32.3, RDW Std Deviation 48.1 H, RDW Coeff of Hai 15.8 H, Plt Count 491 H, MPV 9.8, Neut % (Auto) Not Reportable, Sodium 131 L, Potassium 3.9, Chloride 93 L, Carbon Dioxide 26.5, Anion Gap 12, BUN 20 H, Creatinine 0.73, Estim Creat Clear Calc 78.64, Est GFR (MDRD) Non-Af 98, BUN/Creatinine Ratio 27.1 H, [id number], Calcium 9.2, Phosphorus 3.1 Micro: Microbiology 03/01/25 21:02 Mucosa - Nasopharyngeal Respiratory Panel (PCR) - Final 03/01/25 21:48 Urine, Clean Catch Streptococcus pneumoniae Antigen (M - Final 03/01/25 21:48 Urine, Clean Catch Legionella Antigen - Final Radiography Diagnostic Testing: Radiology Impression Echocardiogram 03/01/25 19:28 Interpretation Summary Moderate global left ventricular systolic dysfunction. The left ventricular ejection fraction is 35%. Stage 1 diastolic dysfunction. Mild (1+) tricuspid valve insufficiency. The study was technically difficult. Contrast injection was performed. Ordering Physician: Kavita Myles Referring Physician: [facility] Performed By: Ankita Prather RDCS, RVT Rhythm Strip Rhythm Strip: Sinus Tach Rate: 140 Ectopy: PVC(s) and - (short run of SVT) Social Homelessness:: Sheltered Physical Exam Narrative GENERAL: cooperative but frail looking HEENT: Atraumatic; normocephalic EYES; Anicteric, Normal Conjunctiva NECK; supple, normal thyroid, RESPIRATORY: Diminished to auscultation CARDIOVASCULAR: Regular S1 S2, GI: soft, normoactive bowel sounds, : No Renal angle tenderness; EXTREMITIES: No edema, no clubbing, MUSCULOSKELETAL: no muscle wasting NEURO: Awake; no lateralizing signs. SKIN: No Rash PSYCH; Flat affect Assessment & Plan Assessment/Plan (1) Obstructive pneumonia: (2) Pleural effusion: (3) Metastatic cancer to lung: PLAN: Plan Patient is a 69-year-old gentleman with history of stage IV metastatic lung CA who presented with shortness of breath 1. Acute hypoxia ? CT demonstrated mild increase in the size of the left upper lobe/left hilar mass. Increased left pleural effusion. Increased left basilar atelectasis/consolidation. Increased cavitation in the leftlower lobe. Unchanged mediastinal and hilar lymphadenopathy. Mild increase in the size and number of multiple pulmonary nodules with the largest measuring 16 mm. Please on supplemental oxygen with treatment of the underlying clinical etiology 2. Postobstructive pneumonia ?Patient managed with Unasyn. 3. Acute congestive heart failure with decreased ejection fraction ? 2D echo obtained demonstrated moderate global left ventricular systolic dysfunction with EF of 35%. Patient was placed on diuretic therapy ? 4. Metastatic lung CA ? Patient has apparently failed immunotherapy. Care is at the [facility] patient is requesting to be transferred to the [facility] did explain to patient the best option would be for patient to be discharged after being assessed for home oxygen and then he can follow-up 5. 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 Severe protein-calorie malnutrition in the context of chronic disease related to inadequate energy/oral ntake and increased energy expenditure ? Patient was seen in consultation by dietary recommendations reviewed 7. DVT prophylaxis ? Patient started on Lovenox CODE STATUS DNR CCA no intubation ? Consult was also placed to the palliative care team to discuss goals of care next Charges/Coding Visit Charges Inpatient E&M: 80344 Subs Hosp L2 03/03/25 1113 Cosigner Signature (if applicable): CC: ~ Signed [facility]09-03-2025 Consult note [facility] Medical Records Department [address] [place] [address] Consultation - Palliative Care 03/02/25 1356 MR#: [id number] Acct: [id number] Name: EMETERIO CHENEY Rep #:[id number] : 1955 69 From: Leeann GREEN PCP: [facility] Status:ADM IN Location: [address] Medical History Lung cancer Home Medications ?Medication ?Instructions ?Recorded ?Last Taken ?Type dexamethasone 4 mg tablet 4 mg PO DAILY unknown Unknown History empagliflozin 25 mg tablet 12.5 mg PO DAILY unknown Unknown History (Jardiance) metoprolol succinate 25 mg 25 mg PO DAILY unknown 08/25 Unknown History tablet,extended release 24 hr (Toprol XL) ondansetron 8 mg disintegrating 8 mg PO Q8H nausea 08/25 Unknown History tablet oxycodone 5 mg capsule 5 mg PO Q4H pain 03/02/25 History Allergy/AdvReac Type Severity Reaction Status Date / Time No Known Allergies Allergy Verified 01/04/25 06:26 Social History Smoking Status: Former smoker Homelessness:: Sheltered Prior Cardiac Testing/Procedures Prior Cardiac Testing/Procedures: Echocardiogram (EF of 35%/Moderate global L ventricular systolic dysfunction) ROS ROS Narrative pt feels that his symptoms are being well controlled, at this time with Oxycodone 2.5mg PO [id number] Constitutional Constitutional: Reports as per HPI and weakness Eyes Eyes: Reports as per HPI ENT HEENT: Reports systems reviewed and no addt'l complaints, except as documented Cardiovascular Cardiovascular: Reports dyspnea at rest, dyspnea on exertion, fatigue and leg edema Respiratory/Chest Respiratory/Chest: Reports dyspnea on exertion, shortness of breath at rest and shortness of breathwith exertion Gastrointestinal Gastrointestinal: Reports systems reviewed and no addt'l complaints, except as documented Genitourinary Genitourinary: Reports dribbling and urinary incontinence Integumentary Integumentary: Reports systems reviewed and no addt'l complaints, except as documented Neurologic Neurologic: Reports systems reviewed and no addt'l complaints, except as documented Psychiatric Psychiatric: Reports systems reviewed and no addt'l complaints, except as documented Hematologic/Lymphatic Hematologic/Lymphatic: Reports anemia Allergic/Immunologic Allergic/Immunologic: Reports systems reviewed and no addt'l complaints, except as documented Physical Exam Narrative shortness of breath Const oriented x3 General Appearance: cooperative HEENT normocephalic Mouth: dry mucous membranes Resp Effort and Inspection: tachypneic Auscultation: crackles bilateral and localized (left worse than right ) and diminished lung sounds Cardio Rate: tachycardic GI GI Narrative: hernia noted Extremity normal capillary refill Neuro Speech: speech normal Gait (Neuro): unable to assess gait Psych Psych Narrative: concerns for denial about the severity of his CA diagnosis. Some concern abouthis insight into his ability to call in famous doctors to heal his cancer. Charges/Coding Palliative Care Palliative Care: 96797 New Pt Consult 80+ min HPI Current admission Current Code Status: DNRCC-A Associated Diagnosis: Stage IV metastatic lung cancer Consult Data Date of Consult: 03/02/25 Location of consult: [facility] Reason for referral: Goals of care Referral source: Dr. Loera Palliative care diagnosis (Summary list): Stage IV metastatic lung cancer, EF of35% Palliative care services/treatment (Accepted, as consult): accepted Case discussed with referring provider: Luz Maria HPI Narrative HPI Narrative: Prior to meeting with the pt at bedside, I reviewed previous documentation, labs, radiological studies and well as diagnostic studies. I then met with the pt at bedside. I introduced myself to both Addy and his fiance , Valerie andthe concept of palliative care, which they voluntarily accepted our services. Iask Addy what he knew of his diagnosis, in which he confirmed that his oncologist stated that he has completed 3 rounds of immunotherapy with no improvement in his cancer. They are not convinced that he will receive any further treatment from his oncologist. Addy continually talks about various doctors that have had great success with treatments Dr Segal and out of [place]. I did ask if he has reached out to these doctors and been acceptedas a patient? He stated that hehas not but states that he is going to have them contact the doctors here and they can tell them what to do. I explained steve that it typically doesn't work that way. He then talked about going to a cancer treatment center in [place]. Currently, he is not well enough for travel and I did ask himhow he plans to get there. He did not have a response, at this time. I am concerned that he may be experiencing denial in his grief process. He did endorse that he spends 90% of his time in bed, while at home. I then discussed his Echocardiogram and gave he and Valerie a overview of what it said with explanations. They both stated understanding. I explained his EF of 35% and elevated troponins x 3 of 36, 34 and 29. BNP of 2433, Along with his metastatic stage IV lung cancer without receiving any further treatments, would make him eligible for hospice. Both Addy and Lee Vining stated that they don't feel they are ready for that. I did offer supportive listening and allowed them to change the subject and followed their trajectory. We did discuss the fact that he is very weak and will, most likely, not be a candidate for continued therapies unless he can gain some strength. He is open to continued PT/OT services to get stronger. He is currently [facility] a bed [facility] and states thathe feels his symptoms are being controlled well, at this time. He is open to further conversations and Palliative care will continue to follow. All questions answered. Per hospitalist EMETERIO QURESHIE, is a 69y/o male w/ hx of stage IV lung cancer notreceiving any treatment because he was not responding to immunotherapy and symptomatic anemia who presented [facility] ED 03/01/2025 for shortness of breath especially in the mornings but over the past 3 days he has continued to worsen, also has mild wheezing and coughing. Also notes the past 2weeks he has had increased swelling in his lower extremities. In the ED patientafebrile, patient with variableheart rate anywhere from 90s to 120s, blood pressure initially 106/92, respiratory rate 18 patient 98% on 3 L nasal cannula with a respiratory rate of 19. CBC with white blood cell count 14.4, [id number] and platelet count 459. BMP with a sodium of 126, up from 120 in December, BUNof 11 and creatinine 0.65, Trop of 36 with 4-hour Trop of 29, and a proBNP of 2433. Lactic acid within normal limits.CTA obtained and showed mild increase in size of patient's left upper lobe/left hilar mass with increased cavitation consolidation as well as left pleural effusion, mild increase in size and numberofpulmonary nodules, unchanged multifocal compression of the left pulmonary artery and branches. ED physician was concern for postobstructive pneumonia andfluid overload, patient received Rocephin and azithromycin as well as IV Lasix in the ED. [facility] with [facility] and [facility] bed availability so hospitalist contacted for admission. Patient evaluated bedside. Patientreports he is still having shortness of breath but feels better than when he first arrived especially sincehe has been pain off fluid. He notes that he has been having shortness of breath and cough for a year and was diagnosed with stage IV lung cancer, usuallyhe short of breath when he wakes up inthe morning but then will improve throughout the day and some days will not feel too bad at all over the past 3 days he has not been improving throughout the day, does cough but has difficultyproducing any sputum, also notes leg swelling for the past 2 weeks. He reports before his lung cancer diagnosis he had never been hospitalized and did not takeany medications, denies smoking, only thing he takes at home currently is oxycodone as needed since his diagnosis. Denies any breathing treatments at home and does not wear home oxygen. He denies any chest pain, no fever at home,occasionally gets some abdominal pain but nothing significant, had been having problems with constipation but that has resolved, denies nausea. Denies problems with urination Palliative Assessment Advanced Directive - Current Admission Advance Directive: Advance Directive ON ADMISSION - REFERENCE 3 Do you have a Healthcare No 03/01/25 19:19 Living Will? Do you have a Healthcare Power No 03/01/25 19:19 of Elementary Math Tutor? Do You Want Additional Declined 03/01/25 19:19 Information on Advanced Directives or Healthcare Proxy/DPOA comments: no formal paperwork but verbally states that hisfiance, Lee Vining. Psychosocial/Spiritual Information Living situation/Marital status: lives with his Fiance Geographic location: [place] Supports: family Shinto/Judi or spiritual preference: states no jain but endorses being very spiritual. Refused visit from mickey. Spiritual distress: denies Prior functional status: has been mostly bedbound 90% of the time Assistive devices at home: cane Cultrual issues: none Information about the patient as a person: Pt states that he is a positive person that researches everything Symptoms Palliative performance scale: 40 Palliative prognostic index: 8.0 (if the PPI is 6.0 or greater, survival could be less than three weeks) Short term prognosis isguarded, longterm prognosis is poor. Dyspnea symptoms: Moderate (on O2@2liter. None at home ) Constipation symptoms: None Nausea symptoms: None Vomiting symptoms: None Depression symptoms: None Anorexia symptoms: Mild Cough symptoms: Mild Insomnia symptoms: Moderate Diarrhea symptoms: None Fatigue symptoms: Moderate Weakness symptoms: Severe Confusion symptoms: None Objective Data Objective Data Vital Signs: Vital Signs Temp Pulse Resp BP Pulse Ox O2 Del Method O2 Flow Rate 97.6 F L 110 H 22 H 109/94 H 98 Nasal Cannula 2 03/02/25 10:37 03/02/25 10:40 03/02/25 10:40 03/02/25 10:37 03/02/25 10:37 03/02/25 10:37 03/02/25 10:37 Oxygen Flow Rate (L/min) 2 Oxygen Delivery Method Nasal Cannula Weight: 140 lb 10.479 oz Body Mass Index (BMI) 20.2 Intake & Output: Intake and Output for Last 24 Hours 02/28/25 03/01/25 03/02/25 23:59 23:59 23:59 Intake Total 660 / 860 980 / 980 Output Total 400 / 400 Balance 660 / 660 580 / 580 Lab / Micro Data Attestation: I reviewed the patient's lab results. (chronic anemia 10.5/26.1, WBC's 13.5 from 14.4,BNP 2433) 03/02/25 04:45 03/02/25 04:45 Labs: Laboratory Results - last 24 hr 03/01/25 23:49: POC Glucose 113 H 03/02/25 04:45: WBC 13.5 H, RBC 3.85 L, Hgb 10.5 L, Hct 32.6 L, MCV 84.7, MCH 27.3, MCHC 32.2, RDW Std Deviation 48.2 H, RDW Coeff of Hai 15.8 H, Plt Count 496 H, MPV 9.8, Neut % (Auto) Not Reportable, Absolute Neuts (auto) 12.2 H, Absolute Lymphs (auto) 0.68 L, Total Counted 100, Neutrophils % (Manual) 90 H, Lymphocytes % (Manual) 5 L, Monocytes % (Manual) 3, Metamyelocytes % 1, Myelocytes % 1 H, Diff Path Review May foll, Anisocytosis 1+, Tear Drop Cells RARE, Schistocytes RARE, Sodium 133, Potassium 3.9, Chloride 93 L, Carbon Dioxide 26.1, Anion Gap 14, BUN 16, Creatinine 0.80, Estim CreatClear Calc 78.64, Est GFR (MDRD) Non-Af 96, BUN/Creatinine Ratio 20.6 H, Glucose 147 H, Calcium 9.0, Magnesium 1.7, Total Bilirubin 0.41, AST 40 H, ALT 18, Alkaline Phosphatase 109, Total Protein 6.2, Albumin 2.8 L, Globulin 3.4, Albumin/Globulin Ratio 0.8 L, TSH 1.400 Micro: Microbiology 03/01/25 21:02 Mucosa - Nasopharyngeal Respiratory Panel (PCR) - Final 03/01/25 21:48 Urine, Clean Catch Streptococcus pneumoniae Antigen (M - Final 03/01/25 21:48 Urine, Clean Catch Legionella Antigen - Final Radiography Diagnostic Testing: Radiology Impression Echocardiogram 03/01/25 19:28 Interpretation Summary Moderate global left ventricular systolic dysfunction. The left ventricular ejection fraction is 35%. Stage 1 diastolic dysfunction. Mild (1+) tricuspid valve insufficiency. The study was technically difficult. Contrast injection was performed. Ordering Physician: Kavita Myles Referring Physician: [facility] Performed By: Ankita Prather RDCS RVT Rhythm Strip Rhythm Strip: Sinus Tach Rate: 140 Ectopy: PVC(s) and - (short run of SVT) Social Homelessness:: Sheltered Impressions & Recommendations Patient & Family Issues discussed with the patient and family: goals of care going forward Patient goal: pt wants total healing of his stage IV lung CA Family goal: family is same as pt Ethical & Legal Ethical and legal: needs formal DPOA for medical decisions Impressions Impressions: Ongoing goals of care conversations needed with the pt. Recommentation Palliative recommendations: although pt would qualify for hospice he is currently electing continued medical management Encouter Achieved as a result of this Palliative Care Encounter: [[id number], [phone] ] minutes were spent in total for this visit which consisted, primarily of counseling and education dealing with the complex and emotionally intense issues of symptom managementand palliative care in the setting of serious and potentially life-threatening illness. Review of do cumentation, labs and radiological studies. ?Patient/family had the opportunity to ask questions Plan (1) Acute hypoxic respiratory failure: PLAN: medical managmeent per primary team recommend continued use of Oxycodone for pain and dyspnea (2) Pleural effusion: PLAN: medical management per primary team (3) Metastatic cancer to lung: PLAN: medical management per primary team (4) Obstructive pneumonia: PLAN: medical managment per primary team (5) Palliative care encounter: PLAN: -recommend continued goals of care conversations -support for pt and family as they continue aggressive medical management PLAN: Plan as above 03/02/25 193 Cosigner Signature (if applicable): CC: [facility]~ Signed ADDENDUM by PETER Miller on 03/03/25 at 1008 Addendum PtsJuan M Jacinto's name is florencia Mcmillan 03/03/25 1008 Cosigner Signature (if applicable): cc: [facility] ~* Signed [facility]09-02-2025 Progress note [facility] Date/Time March 02, 2025 8:31am [facility] Medical Records Department [address] [place] [address] Progress Note - Hospitalist 03/02/25825 MR#: [id number] Acct: [id number] Name: EMETERIO CHENEY Rep #:[id number] : 1955 69 From: Javid garcia MD [facility] Status:ADM IN Location: [place] [address] Subjective Subjective Requiring 2 L nasal cannula. Feels about the same as when he came in. Objective Data Objective Data Vital Signs: Vital Signs Temp Pulse Resp BP Pulse Ox O2 Del Method O2 Flow Rate 98.2 F 102 H 20 H 118/76 94 Nasal Cannula 2 03/02/25 06:05 03/02/25 06:44 03/02/25 06:44 03/02/25 06:05 03/02/25 06:44 03/02/25 06:44 03/02/25 06:44 Oxygen Flow Rate (L/min) 2 Oxygen Delivery Method Nasal Cannula Weight: 140 lb 10.479 oz Body Mass Index (BMI) 20.2 Intake & Output: Intake and Output for Last 24 Hours 03/01/25 03/02/25 03/03/25 03:59 03:59 03:59 Intake Total 0 / 0 960 / 960 480 / 480 Output Total 200 / 200 200 / 200 Balance 0 / 0 760 / 760 280 / 280 Lab / Micro Data 03/02/25 04:45 03/02/25 04:45 Labs: Laboratory Results - last 24 hr 03/01/25 23:49: POC Glucose 113 H 03/02/25 04:45: WBC 13.5 H, RBC 3.85 L, Hgb 10.5 L, Hct 32.6 L, MCV 84.7, MCH 27.3, MCHC 32.2, RDW Std Deviation 48.2 H, RDW Coeff of Hai 15.8 H, Plt Count 496 H, MPV 9.8, Neut % (Auto) Not Reportable, Absolute Neuts (auto) 12.2 H, Absolute Lymphs (auto) 0.68 L, Total Counted 100, Neutrophils % (Manual) 90 H, Lymphocytes % (Manual) 5 L, Monocytes % (Manual) 3, Metamyelocytes % 1, Myelocytes % 1 H, Diff Path Review May foll, Anisocytosis 1+, Tear Drop Cells RARE, Schistocytes RARE, Sodium 133, Potassium 3.9, Chloride 93 L, Carbon Dioxide 26.1, Anion Gap 14, BUN 16, Creatinine 0.80, Estim Creat Clear Calc 78.64, Est GFR (MDRD) Non-Af 96, BUN/Creatinine Ratio 20.6 H, Glucose 147 H, Calcium 9.0, Magnesium 1.7, Total Bilirubin 0.41, AST 40 H, ALT 18, Alkaline Phosphatase 109, Total Protein 6.2, Albumin 2.8 L, Globulin 3.4, Albumin/Globulin Ratio 0.8 L, TSH 1.400 Micro: Microbiology 03/01/25 21:02 Mucosa - Nasopharyngeal Respiratory Panel (PCR) - Preliminary 03/01/25 21:48 Urine, Clean Catch Streptococcus pneumoniae Antigen (M - Final 03/01/25 21:48 Urine, Clean Catch Legionella Antigen - Final Rhythm Strip Rhythm Strip: Sinus Tach Rate: 140 Ectopy: PVC(s) Physical Exam Narrative General: Alert, Oriented x3, Cooperative, No apparent distress HEENT: Atraumatic, PERRLA, EOMI, Normocephalic Oral: Moist Mucosa Neck: Supple, No JVD Lungs: Diminished, Normal air movement, No rhonchi, No wheeze, No rales, tachypneic, difficulty completing full sentences Cardiovascular: Tachycardic, Regular Rhythm, Normal S1, Normal S2, No murmurs Abdomen: Soft, Non Tender, Non-Distended, No Hepato-splenomegaly Extremities: Trace edema, Capillary Refill Less than 3 Seconds Skin: No rashes, No breakdown Musculoskeletal: No Tenderness to Palpation of Joints or Extremities Neurological: No focal neurological deficits, moves all extremities, sensation intact Psych/Mental Status: Normal Affect, Appropriate Assessment & Plan Assessment/Plan (1) Obstructive pneumonia: (2) Pleural effusion: (3) Metastatic cancer to lung: PLAN: Plan 1. Acute hypoxic respiratory insufficiency secondary to postobstructive pneumonia and fluid overload in the setting of stage IV metastatic lung cancer ? CTA demonstrated a mild increase in size the patient's left upper lobe and left hilar mass with left pleural effusion ? His oncologist told him that he may have exhausted all chemotherapeutic options ? Continue with Unasyn and azithromycin ? Cultures are pending ? PT/OT ? Incentive spirometry Mucinex ? 20-minute discussion on advance care planning, he is not ready for hospice as he wants to investigate possible other options for treatment and he wants to talk with his palliative care doctor first ? His proBNP was elevated therefore we will continue with Lasix ? Echo is pending ? Troponin elevations and significant 2. Metastatic lung cancer/hyponatremia ? She has failed 3 immunotherapies and is not receiving any treatments ? As stated above he wants to discuss his situation with his palliative care doctor and possibly investigate other routes of treatment ? Sodium is resolved at 133 DVT: SCDs Charges/Coding Multi Select Codes Visit Charges Visit Charges: 80594 Subs Hosp L2 Hospitalists' Procedures Procedures: 11603 Advncd Care Plan 30 Min 03/02/25 0831 <Electronically signed by Javid Loera MD> Cosigner Signature (if applicable): CC: ~ Signed [facility] Work Phone: 1(505) 947-153009-02-2025 Progress note [facility] Medical Records Department [address] [place] [address] Progress Note - Hospitalist 03/02/25 08 MR#: [id number] Acct: [id number] Name: EMETERIO CHENEY Rep #:[id number] : 1955 69 From: Javid garcia MD PCP: [facility] Status:ADM IN Location: [place] [address] Subjective Subjective Requiring 2 L nasal cannula. Feels about the same as when he came in. Objective Data Objective Data Vital Signs: Vital Signs Temp Pulse Resp BP Pulse Ox O2 Del Method O2 Flow Rate 98.2 F 102 H 20 H 118/76 94 Nasal Cannula 2 03/02/25 06:05 03/02/25 06:44 03/02/25 06:44 03/02/25 06:05 03/02/25 06:44 03/02/25 06:44 03/02/25 06:44 Oxygen Flow Rate (L/min) 2 Oxygen Delivery Method Nasal Cannula Weight: 140 lb 10.479 oz Body Mass Index (BMI) 20.2 Intake & Output: Intake and Output for Last 24 Hours 03/01/25 03/02/25 03/03/25 03:59 03:59 03:59 Intake Total 0 / 0 960 / 960 480 / 480 Output Total 200 / 200 200 / 200 Balance 0 / 0 760 / 760 280 / 280 Lab / Micro Data 03/02/25 04:45 03/02/25 04:45 Labs: Laboratory Results - last 24 hr 03/01/25 23:49: POC Glucose 113 H 03/02/25 04:45: WBC 13.5 H, RBC 3.85 L, Hgb 10.5 L, Hct 32.6 L, MCV 84.7, MCH 27.3, MCHC 32.2, RDW Std Deviation 48.2 H, RDW Coeff of Hai 15.8 H, Plt Count 496 H, MPV 9.8, Neut % (Auto) Not Reportable, Absolute Neuts (auto) 12.2 H, Absolute Lymphs (auto) 0.68 L, Total Counted 100, Neutrophils % (Manual) 90 H, Lymphocytes % (Manual) 5 L, Monocytes % (Manual) 3, Metamyelocytes % 1, Myelocytes % 1 H, Diff Path Review May foll, Anisocytosis 1+, Tear Drop Cells RARE, Schistocytes RARE, Sodium 133, Potassium 3.9, Chloride 93 L, Carbon Dioxide 26.1, Anion Gap 14, BUN 16, Creatinine 0.80, Estim CreatClear Calc 78.64, Est GFR (MDRD) Non-Af 96, BUN/Creatinine Ratio 20.6 H, Glucose 147 H, Calcium 9.0, Magnesium 1.7, Total Bilirubin 0.41, AST 40 H, ALT 18, Alkaline Phosphatase 109, Total Protein 6.2, Albumin 2.8 L, Globulin 3.4, Albumin/Globulin Ratio 0.8 L, TSH 1.400 Micro: Microbiology 03/01/25 21:02 Mucosa - Nasopharyngeal Respiratory Panel (PCR) - Preliminary 03/01/25 21:48 Urine, Clean Catch Streptococcus pneumoniae Antigen (M - Final 03/01/25 21:48 Urine, Clean Catch Legionella Antigen - Final Rhythm Strip Rhythm Strip: Sinus Tach Rate: 140 Ectopy: PVC(s) Physical Exam Narrative General: Alert, Oriented x3, Cooperative, No apparent distress HEENT: Atraumatic, PERRLA, EOMI, Normocephalic Oral: Moist Mucosa Neck: Supple, No JVD Lungs: Diminished, Normal air movement, No rhonchi, No wheeze, No rales, tachypneic, difficulty completing full sentences Cardiovascular: Tachycardic, Regular Rhythm, Normal S1, Normal S2, No murmurs Abdomen: Soft, Non Tender, Non-Distended, No Hepato-splenomegaly Extremities: Trace edema, Capillary Refill Less than 3 Seconds Skin: No rashes, No breakdown Musculoskeletal: No Tenderness to Palpation of Joints or Extremities Neurological: No focal neurological deficits, moves all extremities, sensation intact Psych/Mental Status: Normal Affect, Appropriate Assessment & Plan Assessment/Plan (1) Obstructive pneumonia: (2) Pleural effusion: (3) Metastatic cancer to lung: PLAN: Plan 1. Acute hypoxic respiratory insufficiency secondary to postobstructive pneumonia and fluid overload in the setting of stage IV metastatic lung cancer ? CTA demonstrated a mild increase in size the patient's left upper lobe and left hilar mass with left pleural effusion ? His oncologist told him that he may have exhausted all chemotherapeutic options ? Continue with Unasyn and azithromycin ? Cultures are pending ? PT/OT ? Incentive spirometry Mucinex ? 20-minute discussion on advance care planning, he is not ready for hospice as he wants to investigate possible other options for treatment and he wants to talk with his palliative care doctor first ? His proBNP was elevated therefore we will continue with Lasix ? Echo is pending ? Troponin elevations and significant 2. Metastatic lung cancer/hyponatremia ? She has failed 3 immunotherapies and is not receiving any treatments ? As stated above he wants to discuss his situation with his palliative care doctor and possibly investigate other routes of treatment ? Sodium is resolved at 133 DVT: SCDs Charges/Coding Multi Select Codes Visit Charges Visit Charges: 70047 Subs Hosp L2 Hospitalists' Procedures Procedures: 07166 Advncd Care Plan 30 Min 03/02/25 0831 Cosigner Signature (if applicable): CC: ~ Signed [facility]09-01-2025 History and physical note Author Kavita Myles [facility] Note Date/Time March 01, 2025 7:56pm [facility] Medical Records Department [address] [place] [address] H&P Exam - Hospitalist 03/01/25 0372 MR#: [id number] Acct: [id number] Name: EMETERIO CHENEY Rep #:[id number] : 1955 69 From: Kavita Myles MD [facility]CP: [facility] Status:ADM IN Location: [facility] [id number] HPI - General General Date of Admission: 03/01/25 Date of Service: 03/01/25 Chief Complaint: Shortness of breath HPI Narrative EMETERIO CHENEY, is a 69y/o male w/ hx of stage IV lung cancer not receiving any treatment because he was not responding to immunotherapy and symptomatic anemia who presented [facility] ED 03/01/2025 for shortness of breath especially in the mornings but over the past 3 days he has continued to worsen, also has mild wheezing and coughing. Also notes the past 2 weeks he has had increased swelling in his lower extremities. In the ED patient afebrile, patient with variable heart rate anywhere from 90s to 120s, blood pressure initially 106/92, respiratory rate 18 patient 98% on 3 L nasal cannula with a respiratory rate of 19. CBC with white blood cell count 14.4, hemoglobin 10.2 and platelet count 459. BMP with a sodium of 126, up from 120 in December, BUN of 11 and creatinine 0.65, Trop of 36 with 4-hour Trop of 29, and a proBNP of 2433. Lactic acid within normal limits. CTA obtained and showed mild increase in size of patient's left upper lobe/left hilar mass with increased cavitation consolidation as well as left pleural effusion, mild increase in size and numberof pulmonary nodules, unchanged multifocal compression of the left pulmonary artery and branches. ED physician was concern for postobstructive pneumonia andfluid overload, patient received Rocephin and azithromycin as well as IV Lasix in the ED. Patient with [facility] and was supposed to be transferred howeverno beds for prolonged amount of time [facility] availability so hospitalist contacted for admission. Patient evaluated bedside. Patient reports he is still having shortness of breath but feels better than when he first arrived especially sincehe has been pain off fluid. He notes that he has been having shortness of breath and cough for a year and was diagnosed with stage IV lung cancer, usuallyhe short of breath when he wakes up in the morning but then will improve throughout the day and some days will not feel too bad at all over the past 3 days he has not been improving throughout the day, does cough but has difficultyproducing any sputum, also notes leg swelling for the past 2 weeks. He reports before his lung cancer diagnosis he had never been hospitalized and did not takeany medications, denies smoking, only thing he takes at home currently is oxycodone as needed since his diagnosis. Denies any breathing treatments at home and does not wear home oxygen. He denies any chest pain, no fever at home,occasionally gets some abdominal pain but nothing significant, had been having problems with constipation but that has resolved, denies nausea. Denies problems with urination [facility] Medical History Lung cancer Home Medications ?Medication ?Instructions ?Recorded ?Last Taken ?Type Unobtainable 01/04/25 Unknown History Allergy/AdvReac Type Severity Reaction Status Date / Time No Known Allergies Allergy Verified 01/04/25 06:26 Social History Smoking Status: Former smoker ROS ROS Narrative General: Denies fever/chills HENT: Denies headache, denies stuffy nose, denies sore throat EYES: Denies changes in vision Resp: Cough but difficulty producing sputum, shortness of breath especially withexertion but does have some at rest Cardiac: Denies chest pain GI: Occasionally will have some abdominal pain, denies changes in bowel, denies nausea/vomiting : Denies changes in urination Extremity: Increased swelling in lower extremities MSK: Feels somewhat weak overall Neuro: Sometimes will get tingly feeling around his abdomen Heme: Denies any bleeding or bruising Skin: Denies rashes Psychiatric: Patient struggling with diagnosis and prognosis Vital Signs Vital Signs Vital Signs: 03/01/25 01:34 03/01/25 01:40 03/01/25 [...] Flow Rate (L/min) 03/01/25 07:03 03/01/25 07:10 03/01/25 08:00 Temperature 97.8 F 98.7 F Temperature Source Oral Oral Pulse Rate 111 H 121 H 114 H Respiratory Rate 19 H 19 H 19 H Respiratory Effort Respiratory Depth Respiratory Pattern Blood Pressure 102/82 H 102/82 H 119/77 Blood Pressure Mean 88 88 91 Pulse Ox 98 100 99 Oxygen Delivery Method Nasal Cannula Nasal Cannula Nasal Cannula Oxygen Flow Rate (L/min) 3 3 03/01/25 09:00 03/01/25 10:00 03/01/25 12:15 Temperature 98.9 F 98.1 F 98.3 F Temperature Source Oral Oral Oral Pulse Rate 51 L 88 118 H Respiratory Rate 17 18 18 Respiratory Effort Respiratory Depth Respiratory Pattern Blood Pressure 91/72 130/71 H 106/76 Blood Pressure Mean 78 90 86 Pulse Ox 98 96 98 Oxygen Delivery Method Nasal Cannula Nasal Cannula Nasal Cannula Oxygen Flow Rate (L/min) 3 3 3 03/01/25 13:00 03/01/25 14:00 03/01/25 15:00 Temperature 98.1 F 98.2 F 98.2 F Temperature Source Axillary Axillary Oral Pulse Rate 113 H 114 H 134 H Respiratory Rate 17 19 H 24 H Respiratory Effort Respiratory Depth Respiratory Pattern Blood Pressure 100/73 90/66 130/66 H Blood Pressure Mean 83 72 87 Pulse Ox 98 95 94 Oxygen Delivery Method Nasal Cannula Oxygen Flow Rate (L/min) 3 03/01/25 16:00 03/01/25 17:00 03/01/25 18:00 Temperature 97.8 F 97.8 F 98.3 F Temperature Source Oral Oral Pulse Rate 120 H 112 H 115 H Respiratory Rate 28 H 18 24 H Respiratory Effort Respiratory Depth Respiratory Pattern Blood Pressure 90/68 97/77 102/79 Blood Pressure Mean 75 85 86 Pulse Ox 100 98 97 Oxygen Delivery Method Nasal Cannula Room Air Oxygen Flow Rate (L/min) 3 Weight Weight: 72.4 kg Body Mass Index (BMI) 22.8 Physical Exam Narrative General: Alert, overall answers questions appropriately, is short of breath HEENT: Atraumatic, normocephalic Eyes: Anicteric, normal conjunctiva, extraocular movements grossly intact Neck: Supple Respiratory: Increased respiratory effort, left side diminished diffusely Cardiovascular: Tachycardic, heart rate irregular but appears underlying rhythm is sinus with sinus arrhythmia GI: Soft, nontender, nondistended, does have spot on right side of his abdomen that he said protrudes due to all the coughing he had been having, denies any change, it does not seem to be tender, no rebound, guarding, rigidity Extremities: 1+ bilateral lower extremity edema Musculoskeletal: Moving all extremities Neuro: No overt focal neurological deficits Skin: No rashes appreciated Psych: Cooperative Results Lab / Micro Data 03/01/25 02:40 03/01/25 02:40 Labs: Laboratory Results - last 24 hr 03/01/25 02:40: WBC 14.4 H, RBC 3.76 L, Hgb 10.2 L, Hct 31.5 L, MCV 83.8, MCH 27.1, MCHC 32.4, RDW Std Deviation 47.4 H, RDW Coeff of Hai 15.4 H, Plt Count 459 H, MPV 9.4, Immature Gran % (Auto) 4.700 H, Neut % (Auto) 81.2 H, Lymph % (Auto) 4.8 L, Callahan % (Auto) 8.9, Eos % (Auto) 0.0, Baso % (Auto) 0.4, Absolute Neuts (auto) 11.7 H, Absolute Lymphs (auto) 0.69 L, Nucleated RBC % 0, Sodium 126 L, Potassium 4.2, Chloride 90 L, Carbon Dioxide 22.6, Anion Gap 14, BUN 11, Creatinine 0.65 L, Estim Creat Clear Calc 89.24, Est GFR (MDRD) Non-Af 102, BUN/Creatinine Ratio 17.2, Glucose 90, Lactic Acid 1.5, Calcium 8.9, Troponin T High Sens 36 H D, NT pro BNP II 2433 H 03/01/25 05:20: Troponin T Hi Sens 2 Hr 34 H 03/01/25 06:53: Troponin T Hi Sens 4Hr 29 H Rhythm Strip Rhythm Strip: Sinus Tach Rate: 140 Ectopy: PVC(s) Imaging Radiology Impression Chest CTA 03/01/25 02:30 IMPRESSION: Mild increase in the size of the left upper lobe/left hilar mass. Increased left pleural effusion. Increased left basilar atelectasis/consolidation. Increased cavitation in the left lower lobe. [...] pulmonary embolus or aortic dissection. Reading Location: [place] [address] Assessment & Plan Assessment/Plan (1) Obstructive pneumonia: (2) Pleural effusion: (3) Metastatic cancer to lung: PLAN: Plan # Shortness of breath suspect secondary to postobstructive pneumonia and fluid overload on top of stage IV metastatic lung cancer -Imaging: CTA obtained and showed mild increase in size of patient's left upper lobe/left hilar mass with increased cavitation consolidation as well as left pleural effusion, mild increase in size and number of pulmonary nodules, unchanged multifocal compression of the left pulmonary artery and branches -Does have wet cough and elevated white count with left shift - Will treat with Unasyn and azithromycin - Given patient's tachycardia we will schedule ipratropium nebs and hold off on albuterol -Sputum culture if able, respiratory panel ordered -Urine antigens -Mucinex, I/S -Case management consult given patient needs oxygen or other needs on discharge -PT/OT - Patient was initially supposed [facility] be [facility] as he receives his care there however there would not be a bed for at least 1 to 2 days so [facility] approved admission in [facility] facility. Discussed with patient that he has had progression of his lung cancer and that I can treat pneumonia and excessfluid but cannot treat the underlying cause of the problem and can only work on symptom control and patient verbalized his understanding, he is agreeable for admission at our facility and supportive care with plans to follow-up with [facility] - Patient reports he was following with [facility]ology at the [facility] however they have nowreferred him to palliative care as they said that there is nothing else to do shai did not respond to multiple immunotherapies - Did discuss goals, patient still wants antibiotics, Lasix, symptomatic treatment as above but when discussing CODE STATUS and multiple options patient agreeable for DNR/DNI - Plan from his oncologist per pt was for outpatient palliative, patient at timemy exam does not seem ready to discuss hospice yet - If patient does not improve or worsens would be appropriate to rediscuss palliative and hospice # Elevated pro BNP -Increased from previous, 2400 today up from 1100 in December -Daily weights, I's and O's -Check echo -Continue Lasix cautiously - Does have some compression of the left pulmonary artery branches but this is unchanged from December so while that could contribute suspect the fluid overload and elevated BNP is likely multifactorial -Did feel better after Lasix - Monitor on telemetry # Sinus tachycardia with arrhythmia -EKG with marked sinus arrhythmia -Will check TSH and magnesium -Echocardiogram ordered as above -Suspect that the tachycardia is largely compensatory with patient's poor reserve, tachypnea and underlying illness and that treating the tachycardia in and of itself would cause decompensation -Discussed this with patient -Treat underlying problems - Patient resting comfortably heart rate low 100s but if he is moving around in talking and more short of breath he will go up to 140s - Management as above - Patiently monitor on telemetry # Stage IV metastatic lung cancer -Failed 3 immunotherapies reportedly and is no longer on any treatment - [facility] as there is nothingelse to do - He is interested in looking into other more specialized outpatient treatments but patient did endorse that his oncologist had no further plans for treatment and will be meeting with certified technician specialist - [facility] but no bed available as above, in December patient had CT findings with complete atelectasis ofleft upper lobe from bronchial plugging from mucous or lung cancer in ED contacted [facility] To discuss possible transfer and they Refused transfer and did not think he was a good candidate for stenting and [facility] - Patient ended up leaving AMA - Given patient's progression suspect he has a poor prognosis, discussed this with patient - After discussing CODE STATUS he is DNR/DNI however wants everything else done as above - Discussed that any treatment here would be symptom management for pneumonia and fluid overload and cannot improve the inherent underlying problem and patient verbalized his understanding and would like to be admitted to our institution to try to improve the symptoms as above - Given terminal stage IV lung cancer thought to no longer be a candidate for treatment by his oncologist recently referred to outpatient palliative care do think it is reasonable to admit at our hospital for symptom management #Hyponatremia -Sodium 126 up from 120 in December - May be due to patient's lung cancer +/- component of fluid overload - Received Lasix - Repeat in a.m. - Check TSH #Elevated troponin - Troponin slightly elevated, initial is 36 which down trended to 29 -Suspect that this is all secondary to patient's fluid overload and pneumonia #DVT ppx: SCDs Kavita Myles MD Time spent in the patient's overall evaluation,decision-making process, review of diagnostic data, adjustment of management, discussion with other providers, nursing nursing and ancillary staff involved in patient's care documentation, 77Minutes CODE status: Discussed CODE status at length including difference between FULL code, DNR-CCA, and DNR-CC status. Following discussions about the differences inthese status, requested DNR/DNI. Advanced Care Planning Face to Face Time: 18 minutes. Charges/Coding Multi Select Codes Visit Charges Visit Charges: 86314 Init Hosp L3 Hospitalists' Procedures Procedures: 05305 Advncd Care Plan 30 Min 03/01/251955 <Electronically signed by Kavita Myles MD> Cosigner Signature (if applicable): CC: Dr. Kavita Myles MD; [facility]~ Signed [facility] Work Phone: 1([phone]) 243-528409-01-2025 Evaluation note* Diagnosis Onset Date Resolution Status Admit Date Acute hypoxic respiratory failure acute March 01, 2 025 6:58pm Metastatic cancer to lung acute March 01, 2025 6:58pm Obstructive pneumonia acute Sep tem2024 6:58pm Palliative care encounter acute March 01, 2025 6:58pm Pleural effusion acute Septembe r 2024 6:58pm [facility] Work Phone: 1(238) 947-418309-01-2025 Evaluation note* Diagnosis Onset Date Resolution Status Admit Date Acute hypoxic respiratory failure acute March 01, 2 025 6:58pm Metastatic cancer to lung acute March 01, 2025 6:58pm Obstructive pneumonia acute Sep 2024 6:58pm Palliative care encounter acute March 01, 2025 6:58pm Pleural effusion acute Septembe r 2024 6:58pm Acute exacerbation of chroni c heart failure acute March 09 8:19pm Acute hypoxic respiratory failure acute March 09 8:19pm Chronic anticoagulation acute S eptember 2024 8:19pm Elevated troponin acute Septemb er 2024 8:19pm History of atrial fibrillation acute March 09, 2025 8:19pm History of SIADH acute Septembe r 2024 8:19pm Hyponatremia acute March 8:19pm Metastatic cancer to lung acute March 09, 2025 8:19pm Obstructive pneumonia acute Sep tem2024 8:19pm Palliative care encounter acute March 09, 2025 8:19pm Pleural effusion acute Septembe r 2024 8:19pm Sepsis acute March 09, 2025 8:19pm [facility] Work Phone: 1([phone]) 699-787509-01-2025 Discharge summary [facility] Note Date/Time March 01, 2025 5:56pm [facility] Medical Records Department [address] [place] [address] Emergency Department Summary 03/01/25 MR#: [id number] Acct: [id number] Name: EMETERIO CHENEY Rep #:[id number] : 1955 69 From: Kassi Em PCP: [facility] Status:REG ER Location: ED HPI History [...] Came in for further evaluation. States that hehas not really been sleeping the past 2 days because he is afraid that he will not wake up. States he receives his care through the [facility] Medical History Lung cancer Home Medications [...] Reports weakness Psychiatric Psychiatric: Reports anxiety Hematologic/Lymphatic Hematologic/Lymphatic: Denies easy bleeding or easy bruising EXAM [...] chronic for patient. No overlying redness or tenderness. Extremity Extremity Narrative: Pitting pretibial edema of the bilateral lower extremities slightly worse on theright compared to the left. General Extremety ED: Yes edema General Extremity: edema Neuro oriented x3 Sensorium / Orientation: alert Motor Exam: general weakness Psych mental status grossly normal Mood & Affect: anxious Thought Process: normal thought process Skin no wounds General Skin Exam: pallor Rashes: no rashes MDM MDM MDM Narrative Medical decision making narrative: Patient is a very pleasant 69-year-old male with history of stage IV metastatic lung cancer that currently is untreatable. [facility] He is presenting with worsening shortness of breath as well as leg swelling. Differential includes is not limited to pulmonary emboli, ACS, CHF exacerbation,pneumonia, obstructive process, pleural effusion and pneumothorax. Workup obtained including CBC, high-sensitivity troponins, BNP, lactate, BMP andCTA of the chest. EKG shows a tachycardic, narrow complex rhythm however I do not think it is atrial fibrillation. Patient does have a leukocytosis of 14.4. He is afebrile in the emergency room. He has required some supplemental oxygen which is new for him. He has a mild anemia the hemoglobin of 10.2 however I do not think that is low enough to causehis symptoms/high output heart failure. He states he does have history of requiring blood transfusion. He does have an associated left shift. His BMP is remarkable for hyponatremia the sodium 126 but this appears chronic. Lactate is normal at 1.5. High-sensitivity troponin stable at 36 and 34. BNP elevated at 2433. CT of the chest does not show any pulmonary emboli but does show increased left upper and hilar mass, increased pleural effusion, increased left basilar atelectasis/consolidation and increased cavitation of the left lower lobe. He has increased pulmonary nodules and unchanged multifocal compression of the leftpulmonary artery and its branches. 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 Is started on antibiotics as well as diuresis. [facility]. If they are unable to accommodate admission we will attempt admission here. Patient is agreeable with this. Patient is started on Rocephin, azithromycin and Lasix in the emergency room. As his blood pressure has been stable, he does not have endorgan damage consistent with sepsis and clinically appears fluid overloaded will give Lasix and hold off on IV fluids at this time. Lab Data Attestation: I reviewed the patient's lab results. Labs: Laboratory Results - last 24 hr 03/01/25 03/01/25 02:40 05:20 WBC 14.4 H RBC 3.76 L Hgb 10.2 L Hct 31.5 L MCV 83.8 MCH 27.1 MCHC 32.4 RDW Std Deviation 47.4 H RDW Coeff of Hai 15.4 H Plt Count 459 H MPV 9.4 Immature Gran % (Auto) 4.700 H Neut % (Auto) 81.2 H Lymph % (Auto) 4.8 L Callahan % (Auto) 8.9 Eos % (Auto) 0.0 Baso % (Auto) 0.4 Absolute Neuts (auto) 11.7 H Absolute Lymphs (auto) 0.69 L Nucleated RBC % 0 Sodium 126 L Potassium 4.2 Chloride 90 L Carbon Dioxide 22.6 Anion Gap 14 BUN 11 Creatinine 0.65 L Estim Creat Clear Calc 89.24 Est GFR (MDRD) Non-Af 102 BUN/Creatinine Ratio 17.2 Glucose 90 Lactic Acid 1.5 Calcium 8.9 Troponin T High Sens 36 H D Troponin T Hi Sens 2 Hr 34 H NT pro BNP II 2433 H Radiography Diagnostic Testing: Clinical Impression(s) from Imaging Studies Chest CTA 03/01/25 02:30 IMPRESSION: Mild increase in the size of the left upper lobe/left hilar mass. Increased left pleural effusion. Increased left basilar atelectasis/consolidation. Increased cavitation in the left lower lobe. [...] pulmonary embolus or aortic dissection. Reading Location: [place] [address] Rhythm Strip Rhythm Strip: Sinus Tach Rate: 140 Ectopy: PVC(s) EKG Initial EKG: Attestation: I personally reviewed and interpreted this EKG as follows: Interpretation: Sinus Tachycardia Comments: Sinus tachycardia with frequent PVCs and PACs Normal axis Normal intervals Normal ST segments Discharge Plan Triage Chief Complaint: Shortness of Breath ED Provider: Kassi Baker Dx/Rx/DC Orders Clinical Impression: Acute hypoxic respiratory failure, Obstructive pneumonia, Pleural effusion, Metastatic cancer to lung Prescriptions: No Action Unobtainable Primary [facility] Referrals: [facility] [Primary Care Provider] - Print Language: Zambian What to do if you have Problems For any increased pain, shortness of breath, bleeding, nausea or vomiting, chestpain, or any unexpected problems, contact your Primary Care Provider. Call [facility] ([phone]) or report to the closest Emergency Room. Call 911 if necessary. 03/01/25 0732 <Electronically signed by Kassi Baker DO> Cosigner Signature (if applicable): [facility] ~ Signed ADDENDUM by Dr. Pj Hunter DO on 03/01/25 at 1354 Care of the patient was turned over to ut pending transfer to [facility]. [facility] called back and stated they would accept the patient for transfer there. Patient will be transferred there when a bed becomes available. Care ofthe patient will be turned over to the oncoming physician pending transfer. 03/01/25 1354<Electronically signed by Pj Hunter DO> Cosigner Signature (if applicable): cc: [facility] ~* Signed ADDENDUM by Dr. Brian Raymundo MD on 03/01/25 at 1755 Patient turned over to ut. Overnight was seen by the overnight physician was diagnosed with COPD, CHF, pleural effusion and obstructive pneumonia from a known history of lung cancer. Patient was started on antibiotics and diuresed with Lasix. He was awaiting a bed [facility]. He has been in the emergency department almost 16-1/2 hours. The [facility] just notified us that they would not have a bed available today and may or may not have 1 tomorrow. It would appreciate if he was admitted here. I want him reevaluated the patient is lyingin bed. He is stable. He has been notified of his admission here. 03/01/25 1755<Electronically signed by Brian Raymundo MD> Cosigner Signature (if applicable): cc: [facility] ~* Signed [facility] Work Phone: [phone] 125-354509-01-2025 History and physical note [facility] Medical Records Department [address] [place] [address] H&P Exam - Hospitalist 03/01/25 1858 MR#: [id number] Acct: [id number] Name: EMETERIO CHENEY Rep #:[id number] : 1955 69 From: Kavita Myles MD PCP: [facility] Status:ADM IN Location: [facility] [id number] HPI - General General Date of Admission: 03/01/25 Date of Service: 03/01/25 Chief Complaint: Shortness of breath HPI Narrative EMETERIO CHENEY, is a 69y/o male w/ hx of stage IV lung cancer not receiving any treatment because he was not responding to immunotherapy and symptomatic anemia who presented [facility] ED 03/01/2025 for shortness of breath especially in the mornings but over the past 3 days he has continued to worsen, also has mild wheezing and coughing. Also notes the past 2 weeks he has had increased swelling in his lower extremities. In the ED patient afebrile, patient with variable heart rate anywhere from 90s to 120s, blood pressure initially 106/92, respiratory rate 18 patient 98% on 3 L nasal cannula with a respiratory rate of 19. CBC with white blood cell count 14.4, hemoglobin 10.2 and platelet count 459. BMP with a sodium of 126, up from 120 in December, BUN of 11 and creatinine 0.65, Trop of 36 with 4-hour Trop of 29, and a proBNP of 2433. Lactic acid within normal limits. CTA obtained and showed mild increase in size of patient's left upper lobe/left hilar mass with increased cavitation consolidation as well as left pleural effusion, mild increase in size and numberof pulmonary nodules, unchanged multifocal compression of the left pulmonary artery and branches. ED physician wasconcern for postobstructive pneumonia andfluid overload, patient received Rocephin and azithromycinas well as IV Lasix in the ED. [facility] and was supposed to be transferred howeverno beds for prolonged amount of time and [facility] given [facility] bedavailability so hospitalist contacted for admission. Patient evaluated bedside. Patient reports he is still having shortness of breath but feels better than when he first arrived especially sincehe has been pain off fluid. He notes that he has been having shortness of breath and cough for a year and was diagnosed with stage IV lung cancer, usuallyhe short of breath when he wakes up in the morningbut then will improve throughout the day and some days will not feel too bad at all over the past 3days he has not been improving throughout the day, does cough but has difficultyproducing any sputum, also notes leg swelling for the past 2 weeks. He reports before his lung cancer diagnosis he had never been hospitalized and did not takeany medications, denies smoking, only thing he takes at homecurrently is oxycodone as needed since his diagnosis. Denies any breathing treatments at home and does not wear home oxygen. He denies any chest pain, no fever at home,occasionally gets some abdominal pain but nothing significant, had been having problems with constipation but that has resolved, denies nausea. Denies problems with urination [facility] Medical History Lung cancer Home Medications ?Medication ?Instructions ?Recorded ?Last Taken ?Type Unobtainable 01/04/25 Unknown History Allergy/AdvReac Type Severity Reaction Status Date / Time No Known Allergies Allergy Verified 01/04/25 06:26 Social History Smoking Status: Former smoker ROS ROS Narrative General: Denies fever/chills HENT: Denies headache, denies stuffy nose, denies sore throat EYES: Denies changes in vision Resp: Cough but difficulty producing sputum, shortness of breath especially withexertion but does have some at rest Cardiac: Denies chest pain GI: Occasionally will have some abdominal pain, denies changes in bowel, denies nausea/vomiting : Denies changes in urination Extremity: Increased swelling in lower extremities MSK: Feels somewhat weak overall Neuro: Sometimes will get tingly feeling around his abdomen Heme: Denies any bleeding or bruising Skin: Denies rashes Psychiatric: Patient struggling with diagnosis and prognosis Vital Signs Vital Signs Vital Signs: 03/01/25 01:34 03/01/25 01:40 03/01/25 [...] Flow Rate (L/min) 03/01/25 07:03 03/01/25 07:10 03/01/25 08:00 Temperature 97.8 F 98.7 F Temperature Source Oral Oral Pulse Rate 111 H 121 H 114 H Respiratory Rate 19 H 19 H 19 H Respiratory Effort Respiratory Depth Respiratory Pattern Blood Pressure 102/82 H 102/82 H 119/77 Blood Pressure Mean 88 88 91 Pulse Ox 98 100 99 Oxygen Delivery Method Nasal Cannula Nasal Cannula Nasal Cannula Oxygen Flow Rate (L/min) 3 3 03/01/25 09:00 03/01/25 10:00 03/01/25 12:15 Temperature 98.9 F 98.1 F 98.3 F Temperature Source Oral Oral Oral Pulse Rate 51 L 88 118 H Respiratory Rate 17 18 18 Respiratory Effort Respiratory Depth Respiratory Pattern Blood Pressure 91/72 130/71 H 106/76 Blood Pressure Mean 78 90 86 Pulse Ox 98 96 98 Oxygen Delivery Method Nasal Cannula Nasal Cannula Nasal Cannula Oxygen Flow Rate (L/min) 3 3 3 03/01/25 13:00 03/01/25 14:00 03/01/25 15:00 Temperature 98.1 F 98.2 F 98.2 F Temperature Source Axillary Axillary Oral Pulse Rate 113 H 114 H 134 H Respiratory Rate 17 19 H 24 H Respiratory Effort Respiratory Depth Respiratory Pattern Blood Pressure 100/73 90/66 130/66 H Blood Pressure Mean 83 72 87 Pulse Ox 98 95 94 Oxygen Delivery Method Nasal Cannula Oxygen Flow Rate (L/min) 3 03/01/25 16:00 03/01/25 17:00 03/01/25 18:00 Temperature 97.8 F 97.8 F 98.3 F Temperature Source Oral Oral Pulse Rate 120 H 112 H 115 H Respiratory Rate 28 H 18 24 H Respiratory Effort Respiratory Depth Respiratory Pattern Blood Pressure 90/68 97/77 102/79 Blood Pressure Mean 75 85 86 Pulse Ox 100 98 97 Oxygen Delivery Method Nasal Cannula Room Air Oxygen Flow Rate (L/min) 3 Weight Weight: 72.4 kg Body Mass Index (BMI) 22.8 Physical Exam Narrative General: Alert, overall answers questions appropriately, is short of breath HEENT: Atraumatic, normocephalic Eyes: Anicteric, normal conjunctiva, extraocular movements grossly intact Neck: Supple Respiratory: Increased respiratory effort, left side diminished diffusely Cardiovascular: Tachycardic, heart rate irregular but appears underlying rhythm is sinus with sinusarrhythmia GI: Soft, nontender, nondistended, does have spot on right side of his abdomen that he said protrudes due to all the coughing he had been having, denies any change, it does not seem to be tender, no rebound, guarding, rigidity Extremities: 1+ bilateral lower extremity edema Musculoskeletal: Moving all extremities Neuro: No overt focal neurological deficits Skin: No rashes appreciated Psych: Cooperative Results Lab / Micro Data 03/01/25 02:40 03/01/25 02:40 Labs: Laboratory Results - last 24 hr 03/01/25 02:40: WBC 14.4 H, RBC 3.76 L, Hgb 10.2 L, Hct 31.5 L, MCV 83.8, MCH 27.1, MCHC 32.4, RDW Std Deviation 47.4 H, RDW Coeff of Hai 15.4 H, Plt Count 459 H, MPV 9.4, Immature Gran % (Auto) 4.700 H, Neut % (Auto) 81.2 H, Lymph % (Auto) 4.8 L, Callahan % (Auto) 8.9, Eos % (Auto) 0.0, Baso % (Auto) 0.4, Absolute Neuts (auto) 11.7 H, Absolute Lymphs (auto) 0.69 L, Nucleated RBC % 0, Sodium 126 L, Potassium 4.2, Chloride 90 L, Carbon Dioxide 22.6, Anion Gap 14, BUN 11, Creatinine 0.65 L, Estim Creat Clear Calc 89.24, Est GFR (MDRD) Non-Af 102, BUN/Creatinine Ratio 17.2, Glucose 90, Lactic Acid 1.5, Calcium 8.9, Troponin T High Sens 36 H D, NT pro BNP II 2433 H 03/01/25 05:20: Troponin T Hi Sens 2 Hr 34 H 03/01/25 06:53: Troponin T Hi Sens 4Hr 29 H Rhythm Strip Rhythm Strip: Sinus Tach Rate: 140 Ectopy: PVC(s) Imaging Radiology Impression Chest CTA 03/01/25 02:30 IMPRESSION: Mild increase in the size of the left upper lobe/left hilar mass. Increased left pleural effusion. Increased left basilar atelectasis/consolidation. Increased cavitation in the left lower lobe. Unchanged mediastinal and hilar lymphadenopathy. Mild increase in the size and number of multiple pulmonary nodules with the largest measuring 16 mmon the current exam (previously 13 mm). Unchanged upper abdominal lymphadenopathy. Unchanged left axillary lymphadenopathy. Unchanged diffuse spondylosis. Unchanged multifocal compression of the left pulmonary artery and its branches. No CT evidence of pulmonary embolus or aortic dissection. Reading Location: [place] [address] Assessment & Plan Assessment/Plan (1) Obstructive pneumonia: (2) Pleural effusion: (3) Metastatic cancer to lung: PLAN: Plan # Shortness of breath suspect secondary to postobstructive pneumonia and fluid overload on top of stage IV metastatic lung cancer -Imaging: CTA obtained and showed mild increase in size of patient's left upper lobe/left hilar mass with increased cavitation consolidation as well as left pleural effusion, mild increase in size and number of pulmonary nodules, unchanged multifocal compression of the left pulmonary artery and branches -Does have wet cough and elevated white count with left shift - Will treat with Unasyn and azithromycin - Given patient's tachycardia we will schedule ipratropium nebs and hold off on albuterol -Sputum culture if able, respiratory panel ordered -Urine antigens -Mucinex, I/S -Case management consult given patient needs oxygen or other needs on discharge -PT/OT - Patient was initially supposed to be [facility] as he receives his care there however there would not be a bed for at least 1 to 2 days so [facility] approved admission in [facility] facility. Discussed with patient that he has had progression of his lung cancer and that I can treat pneumonia and excessfluid but cannot treat the underlying cause of the problem and can only work on symptom control and patient verbalized his understanding, he is agreeable for admission at our facility and supportive care with plans to follow-up with [facility] - Patient reports he was following with oncology at the [facility] however they have nowreferred him to palliative care as they said that there is nothing else to do shai did not respond to multiple immunotherapies - Did discuss goals, patient still wants antibiotics, Lasix, symptomatic treatment as above but when discussing CODE STATUS and multiple options patient agreeable for DNR/DNI - Plan from his oncologist per pt was for outpatient palliative, patient at timemy exam does not seem ready to discuss hospice yet - If patient does not improve or worsens would be appropriate to rediscuss palliative and hospice # Elevated pro BNP -Increased from previous, 2400 today up from 1100 in December -Daily weights, I's and O's -Check echo -Continue Lasix cautiously - Does have some compression of the left pulmonary artery branches but this is unchanged from December so while that could contribute suspect the fluid overload and elevated BNP is likely multifactorial -Did feel better after Lasix - Monitor on telemetry # Sinus tachycardia with arrhythmia -EKG with marked sinus arrhythmia -Will check TSH and magnesium -Echocardiogram ordered as above -Suspect that the tachycardia is largely compensatory with patient's poor reserve, tachypnea and underlying illness and that treating the tachycardia in and of itself would cause decompensation -Discussed this with patient -Treat underlying problems - Patient resting comfortably heart rate low 100s but if he is moving around in talking and more short of breath he will go up to 140s - Management as above - Patiently monitor on telemetry # Stage IV metastatic lung cancer -Failed 3 immunotherapies reportedly and is no longer on any treatment - Patient said his [facility] oncologist sent him to palliative care as there is nothingelse to do - He is interested in looking into other more specialized outpatient treatments but patient did endorse that his oncologist had no further plans for treatment and will be meeting with palliative carespecialist - Patient was initially supposed to be transferred to the [facility] but no bed available as above, in Decemberpatient had CT findings with complete atelectasis ofleft upper lobe from bronchial plugging from mucous or lung cancer in ED contacted [facility] To discuss possible transfer and they Refused transfer and did not think he was a good candidate for stenting and [facility] - Patient ended up leaving AMA - Given patient's progression suspect he has a poor prognosis, discussed this with patient - After discussing CODE STATUS he is DNR/DNI however wants everything else done as above - Discussed that any treatment here would be symptom management for pneumonia and fluid overload and cannot improve the inherent underlying problem and patient verbalized his understanding and would like to be admitted to our institution to try to improve the symptoms as above - Given terminal stage IV lung cancer thought to no longer be a candidate for treatment by his oncologist recently referred to outpatient palliative care do think it is reasonable to admit at our hospital for symptom management #Hyponatremia -Sodium 126 up from 120 in December - May be due to patient's lung cancer +/- component of fluid overload - Received Lasix - Repeat in a.m. - Check TSH #Elevated troponin - Troponin slightly elevated, initial is 36 which down trended to 29 -Suspect that this is all secondary to patient's fluid overload and pneumonia #DVT ppx: SCDs Kavita Myles MD Time spent in the patient's overall evaluation,decision-making process, review of diagnostic data, adjustment of management, discussion with other providers, nursing nursing and ancillary staff involved in patient's care documentation, 77Minutes CODE status: Discussed CODE status at length including difference between FULL code, DNR-CCA, and DNR-CC status. Following discussions about the differences inthese status, requested DNR/DNI. Advanced Care Planning Face to Face Time: 18 minutes. Charges/Coding Multi Select Codes Visit Charges Visit Charges: 14025 Init Hosp L3 Hospitalists' Procedures Procedures: 72947 Advncd Care Plan 30 Min 03/01/251955 Cosigner Signature (if applicable): CC: Dr. Kavita Myles MD; [facility]~ Signed [facility]09-01-2025 Discharge summary [facility] Medical Records Department [address] [place] [address] Emergency Department Summary 03/01/25 MR#: [id number] Acct: [id number] Name: EMETERIO CHENEY Rep #:[id number] : 1955 69 From: Kassi Em PCP: [facility] Status:REG ER Location: ED HPI History [...] of breath for the past 3 days. Hestates is normal for him to struggle with [...] Came in for further evaluation. States that hehas not really been sleeping the past 2 days because he is afraid that he will not wake up. [facility] Medical History Lung cancer Home Medications [...] Reports weakness Psychiatric Psychiatric: Reports anxiety Hematologic/Lymphatic Hematologic/Lymphatic: Denies easy bleeding or easy bruising EXAM [...] chronic for patient. No overlying redness or tenderness. Extremity Extremity Narrative: Pitting pretibial edema of the bilateral lower extremities slightly worse on theright compared to the left. General Extremety ED: Yes edema General Extremity: edema Neuro oriented x3 Sensorium / Orientation: alert Motor Exam: general weakness Psych mental status grossly normal Mood & Affect: anxious Thought Process: normal thought process Skin no wounds General Skin Exam: pallor Rashes: no rashes MDM MDM MDM Narrative Medical decision making narrative: Patient is a very pleasant 69-year-old male with history of stage IV metastatic lung cancer that currently is untreatable. [facility] He is presenting with worsening shortness of breath as well as leg swelling. Differential includes is not limited to pulmonary emboli, ACS, CHF exacerbation,pneumonia, obstructive process, pleural effusion and pneumothorax. Workup obtained including CBC, high-sensitivity troponins, BNP, lactate, BMP andCTA of the chest. EKG shows a tachycardic, narrow complex rhythm however I do not think it is atrial fibrillation. Patient does have a leukocytosis of 14.4. He is afebrile in the emergency room. He has required some supplemental oxygen which is new for him. He has a mild anemia the hemoglobin of 10.2 however I donot think that is low enough to causehis symptoms/high output heart failure. He states he does havehistory of requiring blood transfusion. He does have an associated left shift. His BMP is remarkable for hyponatremia the sodium 126 but this appears chronic. Lactate is normal at 1.5. High- sensitivity troponin stable at 36 and 34. BNP elevated at 2433. CT of the chest does not show any pulmonary emboli but does show increased left upperand hilar mass, increased pleural effusion, increased left basilar atelectasis/consolidation and increased cavitation of the left lower lobe. He has increased pulmonary nodules and unchanged multifocal compression of the leftpulmonary artery and its branches. My concern is that he has a postobstructive pneumonia and likely a component of heart failure giventhat he does have JVD and worsening peripheral edema. Is started on antibiotics as well as diuresis. [facility]. If they are unableto accommodate admission we will attempt admission here. Patient is agreeable with this. Patient isstarted on Rocephin, azithromycin and Lasix in the emergency room. As his blood pressure has been stable, he does not have endorgan damage consistent with sepsis and clinically appears fluid overloaded will give Lasix and hold off on IV fluids at this time. Lab Data Attestation: I reviewed the patient's lab results. Labs: Laboratory Results - last 24 hr 03/01/25 03/01/25 02:40 05:20 WBC 14.4 H RBC 3.76 L Hgb 10.2 L Hct 31.5 L MCV 83.8 MCH 27.1 MCHC 32.4 RDW Std Deviation 47.4 H RDW Coeff of Hai 15.4 H Plt Count 459 H MPV 9.4 Immature Gran % (Auto) 4.700 H Neut % (Auto) 81.2 H Lymph % (Auto) 4.8 L Callahan % (Auto) 8.9 Eos % (Auto) 0.0 Baso % (Auto) 0.4 Absolute Neuts (auto) 11.7 H Absolute Lymphs (auto) 0.69 L Nucleated RBC % 0 Sodium 126 L Potassium 4.2 Chloride 90 L Carbon Dioxide 22.6 Anion Gap 14 BUN 11 Creatinine 0.65 L Estim Creat Clear Calc 89.24 Est GFR (MDRD) Non-Af 102 BUN/Creatinine Ratio 17.2 Glucose 90 Lactic Acid 1.5 Calcium 8.9 Troponin T High Sens 36 H D Troponin T Hi Sens 2 Hr 34 H NT pro BNP II 2433 H Radiography Diagnostic Testing: Clinical Impression(s) from Imaging Studies Chest CTA 03/01/25 02:30 IMPRESSION: Mild increase in the size of the left upper lobe/left hilar mass. Increased left pleural effusion. Increased left basilar atelectasis/consolidation. Increased cavitation in the left lower lobe. Unchanged mediastinal and hilar lymphadenopathy. Mild increase in the size and number of multiple pulmonary nodules with the largest measuring 16 mmon the current exam (previously 13 mm). Unchanged upper abdominal lymphadenopathy. Unchanged left axillary lymphadenopathy. Unchanged diffuse spondylosis. Unchanged multifocal compression of the left pulmonary artery and its branches. No CT evidence of pulmonary embolus or aortic dissection. Reading Location: [place] [address] Rhythm Strip Rhythm Strip: Sinus Tach Rate: 140 Ectopy: PVC(s) EKG Initial EKG: Attestation: I personally reviewed and interpreted this EKG as follows: Interpretation: Sinus Tachycardia Comments: Sinus tachycardia with frequent PVCs and PACs Normal axis Normal intervals Normal ST segments Discharge Plan Triage Chief Complaint: Shortness of Breath ED Provider: Kassi Baker Dx/Rx/DC Orders Clinical Impression: Acute hypoxic respiratory failure, Obstructive pneumonia, Pleural effusion, Metastatic cancer to lung Prescriptions: No Action Unobtainable [facility]errals: [facility] [Primary Care Provider] - Print Language: Zambian What to do if you have Problems For any increased pain, shortness of breath, bleeding, nausea or vomiting, chestpain, or any unexpected problems, contact your Primary Care Provider. Call [facility] ([phone]) or report tothe closest Emergency Room. Call 911 if necessary. 03/01/25 0732 Cosigner Signature (if applicable): CC: [facility] ~ Signed ADDENDUM by Dr. Pj Hunter DO on 03/01/25 at 1354 Care of the patient was turned over to ut pending transfer to [facility]. [facility] called back and stated they would accept the patient for transfer there. Patient will be transferred there when a bed becomes available. Care ofthe patient will be turned over to the oncoming physician pending transfer. 03/01/25 1354 Cosigner Signature (if applicable): cc: [facility] ~* Signed ADDENDUM by Dr. Brian Raymundo MD on 03/01/25 at 1755 Patient turned over to ut. Overnight was seen by the overnight physician was diagnosed with COPD, CHF, pleural effusion and obstructive pneumonia from a known history of lung cancer. Patient was started on antibiotics and diuresed with Lasix. He was [facility] a bed [facility]. He has been in the emergency department almost 16-1/2 hours. The [facility] just notified us that they would not have a bed available today and may or may not have 1 tomorrow. It would appreciate if he was admitted here. I want himreevaluated the patient is lyingin bed. He is stable. He has been notified of his admission here. 03/01/25 1755 Cosigner Signature (if applicable): cc: [facility] ~* Signed [facility]09-01-2025 Discharge summary Author Kassi Baker [facility] Note Date/Time March 01, 2025 5:56pm [facility] Medical Records Department [address] [place] [address] Emergency Department Summary 03/01/25 MR#: [id number] Acct: [id number] Name: EMETERIO CHENEY Rep #:[id number] : 1955 69 From: Kassi Em [facility] Status:REG ER Location: ED HPI History [...] Came in for further evaluation. States that hehas not really been sleeping the past 2 days because he is afraid that he will not wake up. [facility] Medical History Lung cancer Home Medications [...] Reports weakness Psychiatric Psychiatric: Reports anxiety Hematologic/Lymphatic Hematologic/Lymphatic: Denies easy bleeding or easy bruising EXAM [...] chronic for patient. No overlying redness or tenderness. Extremity Extremity Narrative: Pitting pretibial edema of the bilateral lower extremities slightly worse on theright compared to the left. General Extremety ED: Yes edema General Extremity: edema Neuro oriented x3 Sensorium / Orientation: alert Motor Exam: general weakness Psych mental status grossly normal Mood & Affect: anxious Thought Process: normal thought process Skin no wounds General Skin Exam: pallor Rashes: no rashes MDM MDM MDM Narrative Medical decision making narrative: Patient is a very pleasant 69-year-old male with history of stage IV metastatic lung cancer that currently is untreatable. [facility] He is presenting with worsening shortness of breath as well as leg swelling. Differential includes is not limited to pulmonary emboli, ACS, CHF exacerbation,pneumonia, obstructive process, pleural effusion and pneumothorax. Workup obtained including CBC, high-sensitivity troponins, BNP, lactate, BMP andCTA of the chest. EKG shows a tachycardic, narrow complex rhythm however I do not think it is atrial fibrillation. Patient does have a leukocytosis of 14.4. He is afebrile in the emergency room. He has required some supplemental oxygen which is new for him. He has a mild anemia the hemoglobin of 10.2 however I do not think that is low enough to causehis symptoms/high output heart failure. He states he does have history of requiring blood transfusion. He does have an associated left shift. His BMP is remarkable for hyponatremia the sodium 126 but this appears chronic. Lactate is normal at 1.5. High-sensitivity troponin stable at 36 and 34. BNP elevated at 2433. CT of the chest does not show any pulmonary emboli but does show increased left upper and hilar mass, increased pleural effusion, increased left basilar atelectasis/consolidation and increased cavitation of the left lower lobe. He has increased pulmonary nodules and unchanged multifocal compression of the leftpulmonary artery and its branches. 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 Is started on antibiotics as well as diuresis. [facility]. If they are unable to accommodate admission we will attempt admission here. Patient is agreeable with this. Patient is started on Rocephin, azithromycin and Lasix in the emergency room. As his blood pressure has been stable, he does not have endorgan damage consistent with sepsis and clinically appears fluid overloaded will give Lasix and hold off on IV fluids at this time. Lab Data Attestation: I reviewed the patient's lab results. Labs: Laboratory Results - last 24 hr 03/01/25 03/01/25 02:40 05:20 WBC 14.4 H RBC 3.76 L Hgb 10.2 L Hct 31.5 L MCV 83.8 MCH 27.1 MCHC 32.4 RDW Std Deviation 47.4 H RDW Coeff of Hai 15.4 H Plt Count 459 H MPV 9.4 Immature Gran % (Auto) 4.700 H Neut % (Auto) 81.2 H Lymph % (Auto) 4.8 L Callahan % (Auto) 8.9 Eos % (Auto) 0.0 Baso % (Auto) 0.4 Absolute Neuts (auto) 11.7 H Absolute Lymphs (auto) 0.69 L Nucleated RBC % 0 Sodium 126 L Potassium 4.2 Chloride 90 L Carbon Dioxide 22.6 Anion Gap 14 BUN 11 Creatinine 0.65 L Estim Creat Clear Calc 89.24 Est GFR (MDRD) Non-Af 102 BUN/Creatinine Ratio 17.2 Glucose 90 Lactic Acid 1.5 Calcium 8.9 Troponin T High Sens 36 H D Troponin T Hi Sens 2 Hr 34 H NT pro BNP II 2433 H Radiography Diagnostic Testing: Clinical Impression(s) from Imaging Studies Chest CTA 03/01/25 02:30 IMPRESSION: Mild increase in the size of the left upper lobe/left hilar mass. Increased left pleural effusion. Increased left basilar atelectasis/consolidation. Increased cavitation in the left lower lobe. [...] pulmonary embolus or aortic dissection. Reading Location: [place] [address] Rhythm Strip Rhythm Strip: Sinus Tach Rate: 140 Ectopy: PVC(s) EKG Initial EKG: Attestation: I personally reviewed and interpreted this EKG as follows: Interpretation: Sinus Tachycardia Comments: Sinus tachycardia with frequent PVCs and PACs Normal axis Normal intervals Normal ST segments Discharge Plan Triage Chief Complaint: Shortness of Breath ED Provider: Kassi Baker Dx/Rx/DC Orders Clinical Impression: Acute hypoxic respiratory failure, Obstructive pneumonia, Pleural effusion, Metastatic cancer to lung Prescriptions: No Action Unobtainable Primary [facility]: [facility] Referrals: [facility] [Primary Care Provider] - Print Language: Zambian What to do if you have Problems For any increased pain, shortness of breath, bleeding, nausea or vomiting, chestpain, or any unexpected problems, contact your Primary Care Provider. Call [facility] ([phone]) or report to the closest Emergency Room. Call 911 if necessary. 03/01/25 0732 <Electronically signed by Kassi Baker DO> Cosigner Signature (if applicable): CC: [facility] ~ Signed ADDENDUM by Dr. Pj Hunter DO on 03/01/25 at 1354 Care of the patient was turned over to ut pending transfer to [facility]. [facility] called back and stated they would accept the patient for transfer there. Patient will be transferred there when a bed becomes available. Care ofthe patient will be turned over to the oncoming physician pending transfer. 03/01/25 1354<Electronically signed by Pj Hunter DO> Cosigner Signature (if applicable): cc: [facility] ~* Signed ADDENDUM by Dr. Brian Raymundo MD on 03/01/25 at 1755 Patient turned over to ut. Overnight was seen by the overnight physician was diagnosed with COPD, CHF, pleural effusion and obstructive pneumonia from a known history of lung cancer. Patient was started on antibiotics and diuresed with Lasix. He was [facility] a bed [facility]. He has been in the emergency department almost 16-1/2 hours. The [facility] just notified us that they would not have a bed available today and may or may not have 1 tomorrow. It would appreciate if he was admitted here. I want him reevaluated the patient is lyingin bed. He is stable. He has been notified of his admission here. 03/01/251754<Electronically signed by Brian Raymundo MD> Cosigner Signature (if applicable): cc: [facility] ~* Signed [facility] Work Phone: 1(818) 174-648609-01-2025 Radiology Diagnostic study note [facility] Imaging Services [address] [place], [place] [address] CTA Chest W/WO Contrast MR#: [id number] Acct: [id number] Name: EMETERIO CHENEY Rep #: [id number] : 1955 M 69 From: Alcira Calzada MD PCP: [facility] Status: PRE ER Study:CTA Chest W/WO Contrast Date of Exam: 03/01/25 Exam# [id number] Ordering Dr: Mirtha Baker DO PROCEDURE: CTA CHEST W/WO CONTRAST [...] pulmonary nodules with the largest measuring 16 mmon the current exam (previously 13 mm). Unchanged [...] Increased left pleural effusion. Increased left basilar atelectasis/consolidation. Increased cavitation in the left lower lobe. Unchanged mediastinal and hilar lymphadenopathy. Mild increase in the size and number of multiple pulmonary nodules with the largest measuring 16 mmon the current exam (previously 13 mm). Unchanged upper abdominal lymphadenopathy. Unchanged left axillary lymphadenopathy. Unchanged diffuse spondylosis. Unchanged multifocal compression of the left pulmonary artery and its branches. No CT evidence of pulmonary embolus or aortic dissection. Reading Location[facility] CC: Dr. Kassi Baker DO; [facility] ~ Senior Net Architect: Signed [facility]07-07-2025 Discharge summary [facility] Medical Records Department [address] [place] [address] Emergency Department Summary 01/04/25 MR#: [id number] Acct: [id number] Name: EMETERIO CHENEY Rep #:[id number] : 1955 69 From: Ned Harmon DO PCP: [facility] Status:REG ER Location: ED ADDENDUM by Dr. Ned Harmon DO on 01/04/25 at 1328 Patient EKG reviewed showed sinus tachycardia with rate of 107 bpm. 01/04/25 1328 Cosigner Signature (if applicable): cc: [facility] ~* Signed HPI History of Present [...] he was [facility] and there was admitted to [facility] About 2 weeks ago. He states that he will be sleeping and he will feel like he wakes up gasping for air havingshortness of breath difficulty breathingtherefore he came here for further evaluation management. Patient denies any travel denies any history of blood clots. [facility] Medical History Lung cancer Home Medications [...] follow commands and that he was at [facility] year is 2024 Skin: Warm. Dry, [...] and states that he is scheduled to havea PET scan to see if there are [...] was noted be 111. Patient's AST and ALT were 49 and 18 respectively. Patient's troponin was [...] noted. Patient's case was discussed with on-call e commerce merchandising coordinator Dr. Winn prior to admitting him here and he recommends transfer to tertiary care center. Spoke with transfer time multiple times at [facility] Who she reached out to their pulmonology team and other providers and they state that they would not stent this as they feel that he is not amenable to this procedure. They reach back out with hospitalist Dr. Fuentes who I discussed case with and he is recommending attempting to transfer to the [facility] given that this is palliative care [...] his palliative care team, chemo/hematology oncology at [facility]. He was vies return with worsening symptoms or other concerns. He is agreeable to plan all question concerns answered he will leave AGAINST MEDICAL ADVICE. Patient did note that he was overall pleased with the care he just cannot wait any longer for another transport and will directly talk with his [facility] doctors for potential direct admission Lab Data [...] Clarity Clear Urine pH 6.0 Ur Specific [place] 1.015 Urine Protein 30 H Urine Glucose [...] Color Urine Clarity Urine pH Ur Specific [place] Urine Protein Urine Glucose (UA) Urine Ketones [...] 4. Other findings as noted. Reading Location: [id number] Chest CTA 01/04/25 07:30 IMPRESSION: No pulmonary embolism. Complete atelectasis of the left upper lobe from bronchial plugging from mucous,lung cancer versus other etiology. Multi focal right lung pulmonary metastases Reading [facility] Discharge Plan Triage Chief Complaint: Shortness of Breath ED Provider: Ned Harmon Dx/Rx/DC Orders Clinical Impression: Breath shortness, Lung cancer, History of metastatic neoplastic disease Prescriptions: No Action Unobtainable [facility] [[facility]] - Activity Restrictions/Additional Instructions: Follow-up with [facility] as well as your palliative care team. Return with worsening symptomsor any other concerns. Print Language: Zambian Disposition Disposition: Against Medical Advice What to do if you have Problems For any increased pain, shortness of breath, bleeding, nausea or vomiting, chestpain, or any unexpected problems, contact your Primary Care Provider. Call [facility] ([phone]) or report tothe closest Emergency Room. Call 911 if necessary. 01/04/25 1327 Cosigner Signature (if applicable): CC: [facility] ~ Signed [facility]07-07-2025 Radiology Diagnostic study note [facility] Imaging Services [address] [place], [place] [address] CTA Chest W/WO Contrast MR#: [id number] Acct: [id number] Name: EMETERIO CHENEY Rep #: [id number] : 1955 M 69 From: Pet er Tera SAWYER [facility] Status: REG ER Study:CTA Chest W/WO Contrast Date of Exam: 01/04/25 Exam# [id number] Ordering Dr: Clair Harmon DO PROCEDURE: CTA [...] ovoid pleural-based nodule in the right lower lobe,and several similar size pulmonary nodules throughout the right lung Upper Abdomen: Unremarkable Bones: Schmorl's node inferior endplate T11 CT/CTA Chest W/WO Contrast IMPRESSION: No pulmonary embolism. Complete atelectasis of the left upper lobe from bronchial plugging from mucous,lung cancer versus other etiology. Multi focal right lung pulmonary metastases Reading Location: [facility] CC: Dr. Ned Hamron DO; [facility] ~ Senior Net Architect: Signed [facility]07-07-2025 Radiology Diagnostic study note [facility] Imaging Services [address] [place] [address] Abdomen/Pelvis W IV Cont ONLY MR#: [id number] Acct: [id number] Name: EMETERIO CHENEY Rep #: [id number] : 1955 M 69 From: Enzo Bee MD PCP: [facility] Status: REG ER Study:Abdomen/Pelvis W IV Cont ONLY Date of E xam: 01/04/25 Exam# [id number] Ordering Dr: Clair Harmon DO PROCEDURE: ABDOMEN/PELVIS [...] 4. Other findings as noted. Reading Location: [id number] CC: Dr. Ned Harmon DO; [facility] Senior Net Architect: Signed [facility] Work Phone: 1(836) 960-333406-24-2025 [facility]06-24-2025 [facility]06-24-2025 [facility] 12-22-2024 [facility]06-23-2025 [facility]06-23-2025 [facility]06-22-2025 [facility]06-21-2025 [facility]06-21-2025 NoteHNO ID: [id number] Author: EBEN NOLEN, TOMAS Service: Nursing Author Type: Registered Nurse Type: Nursing Progress Note Filed: 12/19/2024 05:52 Note Text: Pt refused blood work at this time. Said [facility]'d do [facility] later.[facility]06-20-2025 [facility]06-19-2025 [facility]06-18-2025 [facility]06-18-2025 NoteHNO ID: [id number] Author: EBEN NOLEN, TOMAS Service: Nursing Author Type: Registered Nurse Type: Nursing Progress Note Filed: 12/16/2024 02:02 Note Text: Pt given a soapsuds enema; tolerated well; Pt had a mixed BM of liquid and solidMainegeneral Medical Center06-17-2025 [facility] 12-14-2024 [facility]06-15-2025 NoteHNO ID: [id number] Author: REN SCHULTZ, TOMAS Service: ? Author Type: Registered Nurse Type: Nursing Progress Note Filed: 12/14/2024 02:00 Note Text: Pt fired off sepsis BPA. Pager [phone] messaged. No new orders at this timeMain[facility]06-15-2025 [facility]06-14-2025 Note [facility]06[facility]20[facility] 12-11-2024 [facility]06-12-2025 [facility]06-11-2025 [id number] (AGENT OF COVID-19) RNA: Not detected INFLUENZA A RNA: Not detected INFLUENZA B RNA: Not detected RESPIRATORY SYNCYTIAL VIRUS (RSV) RNA: Not detectedMainegeneral Medical CenterComment on above:Performed By: #### [id number] ####[facility] LABORATORYCLIA [id number] [place] [address] [place] STATES OF AMERICADischarge summary Author Ned Harmon [facility] Note Date/Time January 04, 2025 1:28p [facility] Medical Records Department [address] [place] [address] Emergency Department Summary 01/04/25 MR#: [id number] Acct: [id number] Name: EMETERIO CHENEY Rep #:[id number] : 1955 69 From: Ned Harmno DO PCP: [facility] Status:REG ER Location: ED ADDENDUM by Dr. Ned Harmon DO on 01/04/25 at 1328 Patient EKG reviewed showed sinus tachycardia with rate of 107 bpm. 01/04/25 1328<Electronically signed by Ned Harmon DO> Cosigner Signature (if applicable): cc: [facility] ~* Signed HPI History of Present [...] he was [facility] and there was admitted to [facility] About 2 weeks ago. He states that he will be sleeping and he will feel like he wakes up gasping for air having shortness of breath difficulty breathingtherefore he came here for further evaluation management. Patient denies any travel denies any history of blood clots. [facility] Medical History Lung cancer Home Medications [...] follow commands and that he was at [facility] year is 2024 Skin: Warm. Dry, [...] noted. Patient's case was discussed with on-call e commerce merchandising coordinator Dr. Winn prior to admitting him here and he recommends transfer to tertiary care center. Spoke with transfer time multiple times at [facility] Who she reached out to their pulmonology team and other providers and they state that they would not stent this as they feel that he is not amenable to this procedure. They reach back out with hospitalist Dr. Fuentes who I discussed case with and he is recommending attempting to transfer to the [facility] given that this is palliative care [...] his palliative care team, chemo/hematology oncology at [facility]. He was vies return with worsening symptoms or other concerns. He is agreeable to plan all question concerns answered he will leave AGAINST MEDICAL ADVICE. Patient did note that he was overall pleased with the care he just cannot wait any longer for another transport and will directly talk with his [facility] doctors for potential direct admission Lab Data [...] Clarity Clear Urine pH 6.0 Ur Specific [place] 1.015 Urine Protein 30 H Urine Glucose [...] Color Urine Clarity Urine pH Ur Specific [place] Urine Protein Urine Glucose (UA) Urine Ketones [...] 4. Other findings as noted. Reading Location: [id number] Chest CTA 01/04/25 07:30 IMPRESSION: No pulmonary embolism. Complete atelectasis of the left upper lobe from bronchial plugging from mucous,lung cancer versus other etiology. Multi focal right lung pulmonary metastases Reading Location: [facility] Discharge Plan Triage Chief Complaint: Shortness of Breath ED Provider: Ned Harmon Dx/Rx/DC Orders Clinical Impression: Breath shortness, Lung cancer, History of metastatic neoplastic disease Prescriptions: No Action Unobtainable [facility] [[facility]] - Activity Restrictions/Additional Instructions: [facility]-up with [facility] as well as your palliative care team. Return with worsening symptoms or any other concerns. Print Language: Zambian Disposition Disposition: Against Medical Advice What to do if you have Problems For any increased pain, shortness of breath, bleeding, nausea or vomiting, chestpain, or any unexpected problems, contact your Primary Care Provider. Call [facility] ([phone]) or report to the closest Emergency Room. Call 911 if necessary. 01/04/25 1327 <Electronically signed by Ned Harmon DO> Cosigner Signature (if applicable): CC: [facility] ~ Signed [facility] Work Phone: Evaluation noteNo assessment information available [facility] Work Phone: Hospital Discharge instructionsAdditional Instructions Follow-up with the [facility] as well as your palliative care team. Return with worsening symptoms or any other concerns.[facility] Work Phone: Reason for referral (narrative)No reason for referral information availableWooCleveland Clinic [facility] Work Phone: Summary Purpose Family History Relationship Condition Age at Onset Recorded Date/T kareem Unknown Family History?- Unknown March 022015 5:16pm Advance Directives Advance Directive Response Recorded Date/ Time Do you have a Healthcare Power of Elementary Math Tutor? No January 04, 2025 6:31am Advance Directives No March 5:17pm Advance Directive Response Recorded Date/ Time Do you have a Healthcare Power of Elementary Math Tutor? No March 01, 2025 1:39am Do you have a Healthcare Power of Elementary Math Tutor? No January 04, 2025 6:31am Advance Directives No March 5:17pm Advance Directive Response Recorded Date/ Time Do you have a Healthcare Power of Elementary Math Tutor? No March 01, 2025 7:19pm Do you have a Healthcare Power of Elementary Math Tutor? No January 04, 2025 6:31am Advance Directives No March 5:17pm Advance Directive Response Recorded Date/ Time Do you have a Healthcare Power of Elementary Math Tutor? No March 01, 2025 7:19pm Do you have a Healthcare Power of Elementary Math Tutor? No January 04, 2025 6:31am Do you have a Healthcare Power of Elementary Math Tutor? No March 09, 2025 3:04pm Advance Directives No March 5:17pm Chief Complaint and Reason for Visit Chief Complaint Admit Date sob January 04, 2025 6:26a m Chief Complaint Admit Date sob January 04, 2025 6:26a m POSTOBSTRUCTIVE PNEUMONIA, FLUID OVERLOA D March 01, 2025 6:58pm Chief Complaint Admit Date sob January 04, 2025 6:26a m POSTOBSTRUCTIVE PNEUMONIA, FLUID OVERLOA D March 01, 2025 6:58pm POSTOBSTRUCTIVE PNEUMONIA, FLUID OVERLOA D March 02, 2025 8:26am POSTOBSTRUCTIVE PNEUMONIA, FLUID OVERLOA D March 02, 2025 1:56pm POSTOBSTRUCTIVE PNEUMONIA, FLUID OVERLOA D March 03, 2025 7:44am POSTOBSTRUCTIVE PNEUMONIA, FLUID OVERLOA D March 03, 2025 10:10am POSTOBSTRUCTIVE PNEUMONIA, FLUID OVERLOA D March 04, 2025 6:57am POSTOBSTRUCTIVE PNEUMONIA, FLUID OVERLOA D March 04, 2025 8:30am POSTOBSTRUCTIVE PNEUMONIA, FLUID OVERLOA D March 05, 2025 8:18am POSTOBSTRUCTIVE PNEUMONIA, FLUID OVERLOA D March 05, 2025 9:17am POSTOBSTRUCTIVE PNEUMONIA, FLUID OVERLOA D March 06, 2025 6:11am POSTOBSTRUCTIVE PNEUMONIA, FLUID OVERLOA D March 07, 2025 8:00am POSTOBSTRUCTIVE PNEUMONIA, FLUID OVERLOA D March 08, 2025 9:33am POSTOBSTRUCTIVE PNEUMONIA, FLUID OVERLOA D March 08, 2025 10:40am Reason for Visit Admit Date Acute hypoxic respiratory failure Septem 2024 6:58pm Metastatic cancer to lung March 01, 2025 6:58pm Obstructive pneumonia March 01 6:58pm Palliative care encounter March 01, 2025 6:58pm Pleural effusion March 01, 2025 6:58pm Chief Complaint Admit Date sob January 04, 2025 6:26a m POSTOBSTRUCTIVE PNEUMONIA, FLUID OVERLOA D March 01, 2025 6:58pm POSTOBSTRUCTIVE PNEUMONIA, FLUID OVERLOA D March 02, 2025 8:26am POSTOBSTRUCTIVE PNEUMONIA, FLUID OVERLOA D March 02, 2025 1:56pm POSTOBSTRUCTIVE PNEUMONIA, FLUID OVERLOA D March 03, 2025 7:44am POSTOBSTRUCTIVE PNEUMONIA, FLUID OVERLOA D March 03, 2025 10:10am POSTOBSTRUCTIVE PNEUMONIA, FLUID OVERLOA D March 04, 2025 6:57am POSTOBSTRUCTIVE PNEUMONIA, FLUID OVERLOA D March 04, 2025 8:30am POSTOBSTRUCTIVE PNEUMONIA, FLUID OVERLOA D March 05, 2025 8:18am POSTOBSTRUCTIVE PNEUMONIA, FLUID OVERLOA D March 05, 2025 9:17am POSTOBSTRUCTIVE PNEUMONIA, FLUID OVERLOA D March 06, 2025 6:11am POSTOBSTRUCTIVE PNEUMONIA, FLUID OVERLOA D March 07, 2025 8:00am POSTOBSTRUCTIVE PNEUMONIA, FLUID OVERLOA D March 08, 2025 9:33am POSTOBSTRUCTIVE PNEUMONIA, FLUID OVERLOA D March 08, 2025 10:40am SEPSIS WITH POSTOBSTRUCTIVE PNA AND KNOW N MET CA. March 09, 2025 8:19pm Reason for Visit Admit Date Acute hypoxic respiratory failure Septem 2024 6:58pm Metastatic cancer to lung March 01, 2025 6:58pm Obstructive pneumonia March 01 6:58pm Palliative care encounter March 01, 2025 6:58pm Pleural effusion March 01, 2025 6:58pm Acute exacerbation of chronic heart fail ure March 09, 2025 8:19pm Acute hypoxic respiratory failure Septem 2024 8:19pm Chronic anticoagulation March 09, 8:19pm Elevated troponin March 09, 2025 8:19pm History of atrial fibrillation March 09, 2025 8:19pm History of SIADH March 09, 2025 8:19pm Hyponatremia March 09, 2025 8:19pm Metastatic cancer to lung March 09, 2025 8:19pm Obstructive pneumonia March 09 8:19pm Palliative care encounter March 09, 2025 8:19pm Pleural effusion March 09, 2025 8:19pm Sepsis March 09, 2025 8:19pm Additional Source Comments (unrecognized sect ion and content) No Status Records FoundNo Status Records Found INFORMATION SOURCE (unrecogn ized section and content) DATE CREATED AUTHOR 01/04/2025 [facility] DATE CREATED AUTHOR AUTHOR'S DAJA ATION 03/08/2025 [facility] Care Teams (unrecognized sec tion and content) Team Status: Active Member Role/Relationship Status Dates [facility] Primary Care Provider Active Team Status: Inactive Member Role/Relationship Status Dates [facility] Primary Care Provider Active Start: January 04, 2025 End: January 04, 2025 Dr. Ned Harmon DO Emergency Provider Active Start: January 04, 2025 End: January 04, 2025 Team Status: Inactive Member Role/Relationship Status Dates [facility] Primary Care Provider Active Start: January 04, 2025 End: January 04, 2025 Dr. Ned Harmon DO Attending Provider Active Start: January 04, 2025 End: January 04, 2025 Dr. Ned Harmon DO Emergency Provider Active Start: January 04, 2025 End: January 04, 2025 Team Status: Active Member Role/Relationship Status Dates [facility] Primary Care Provider Active Start: March 01, 2025 Dr. Kassi Baker DO Emergency Provider Active Start: March 01, 2025 Dr. Kavita Myles MD Admit Provider Active Star t: March 01, 2025 Dr. Kavita Myles MD Attending Provider Active Start: March 01, 2025 Team Status: Inactive Member Role/Relationship Status Dates [facility] Primary Care Provider Active Start: March 01, 2025 End: March 08, 2025 Dr. Kassi Baker DO Emergency Provider Active Start: March 01, 2025 End: March 08, 2025 Dr. Kavita Myles MD Admit Provider Active Star t: March 01, 2025 End: March 08, 2025 Dr. Kavita Myles MD Other Provider Active Star t: March 01, 2025 End: March 08, 2025 PETER Montgomery Other Provider Active Start: March End: March 08, 2025 Dr. Javid Loera MD Other Provider Active Start: March 01, 2025 End: March 08, 2025 Dr. Zackery Myrick DO Other Provider Active Sta rt: March 01, 2025 End: March 08, 2025 Dr. Umu Rodrigez MD Other Provider Active Start : March 01, 2025 End: March 08, 2025 Dr. Jade Chavarria MD Other Provider Active St art: March 01, 2025 End: March 08, 2025 Consuelo Lopez , [employer]KER-C Other Provider Active Sta rt: March 01, 2025 End: March 08, 2025 Lulu Murry NP, [employer]-C Other Provider Active Start: March 01, 2025 End: March 08, 2025 MARIANNA Warren Other Provider Active Start: Fermín [email or web address] End: March 08, 2025 Dr. Pj Roper DO Attending Provider Active Start: March 01, 2025 End: March 08, 2025 Dr. Zackery Soares MD Other Provider Active Star t: March 01, 2025 End: March 08, 2025 Team Status: Active Member Role/Relationship Status Dates [facility] Primary Care Provider Active Start: March 02, 2025 Dr. Kassi Baker DO Emergency Provider Active Start: March 02, 2025 Dr. Kavita Myles MD Admit Provider Active Star t: March 02, 2025 Dr. Kavita Myles MD Other Provider Active Star t: March 02, 2025 Dr. Javid Loera MD Attending Provider Active Start: March 02, 2025 Dr. Javid Loera MD Other Provider Active Start: March 02, 2025 Team Status: Active Member Role/Relationship Status Dates [facility] Primary Care Provider Active Start: March 02, 2025 Dr. Jovon Cisneros MD Attending Provider Active Start: March 02, 2025 Team Status: Active Member Role/Relationship Status Dates [facility] Primary Care Provider Active Start: March 02, 2025 Dr. Kassi Baker DO Emergency Provider Active Start: March 02, 2025 Dr. Kavita Myles MD Admit Provider Active Star t: March 02, 2025 Dr. Kavita Myles MD Other Provider Active Star t: March 02, 2025 Dr. Javid Loera MD Other Provider Active Start: March 02, 2025 RODRIGO MontgomeryC Attending Provider Active Start: March Leeann Miller , [employer]-C Other Provider Active Start: March Team Status: Active Member Role/Relationship Status Dates [facility] Primary Care Provider Active Start: March 03, 2025 Dr. Kassi Baker DO Emergency Provider Active Start: March 03, 2025 Dr. Kavita Myles MD Admit Provider Active Star t: March 03, 2025 Dr. Kavita Myles MD Other Provider Active Star t: March 03, 2025 Leeann Miller , [employer]-C Other Provider Active Start: March Dr. Zackery Soares MD Attending Provider Active Start: March 03, 2025 Dr. Zackery Soares MD Other Provider Active Star t: March 03, 2025 Dr. Javid Loera MD Other Provider Active Start: March 03, 2025 Team Status: Active Member Role/Relationship Status Dates [facility] Primary Care Provider Active Start: March 03, 2025 Dr. Kassi Baker DO Emergency Provider Active Start: March 03, 2025 Dr. Kavita Myles MD Admit Provider Active Star t: March 03, 2025 Dr. Kavita Myles MD Other Provider Active Star t: March 03, 2025 Leeann Miller , [employer]KER-C Attending Provider Active Start: March Leeann Miller , [employer]-C Other Provider Active Start: March Dr. Zackery Soares MD Other Provider Active Star t: March 03, 2025 Dr. Javid Loera MD Other Provider Active Start: March 03, 2025 Team Status: Active Member Role/Relationship Status Dates [facility] Primary Care Provider Active Start: March 04, 2025 Dr. Kassi Baker DO Emergency Provider Active Start: March 04, 2025 Dr. Kavita Myles MD Admit Provider Active Star t: March 04, 2025 Dr. Kavita Myles MD Other Provider Active Star t: March 04, 2025 Leeann Miller , [employer]C Other Provider Active Start: March Dr. Zackery Soares MD Attending Provider Active Start: March 04, 2025 Dr. Zackery Soares MD Other Provider Active Star t: March 04, 2025 Dr. Javid Loera MD Other Provider Active Start: March 04, 2025 Dr. Zackery Myrick DO Other Provider Active Sta rt: March 04, 2025 Dr. Umu Rodrigez MD Other Provider Active Start : March 04, 2025 Dr. Jade Chavarria MD Other Provider Active St art: March 04, 2025 Consuelo Lopez NP-C Other Provider Active Sta rt: March 04, 2025 Lulu Murry NP, [employer]-C Other Provider Active Start: March 04, 2025 MARIANNA Warren Other Provider [facility] Team Status: Active Member Role/Relationship Status Dates [facility] Primary Care Provider Active Start: March 04, 2025 Dr. Kassi Baker DO Emergency Provider Active Start: March 04, 2025 Dr. Kavita Myles MD Admit Provider Active Star t: March 04, 2025 Dr. Kavita Myles MD Other Provider Active Star t: March 04, 2025 PETER Montgomery Attending Provider Active Start: March PETER Montgomery Other Provider Active Start: March Dr. Zackery Soares MD Other Provider Active Star t: March 04, 2025 Dr. Javid Loera MD Other Provider Active Start: March 04, 2025 Dr. Zackery Myrick DO Other Provider Active Sta rt: March 04, 2025 Dr. Umu Rodrigez MD Other Provider Active Start : March 04, 2025 Dr. Jade Chavarria MD Other Provider Active St art: March 04, 2025 RODRIGO JungC Other Provider Active Sta rt: March 04, 2025 uLlu Murry NP, [employer]-C Other Provider Active Start: March 04, 2025 MARIANNA Warren Other Provider Active Start: [facility] 2024 Team Status: Active Member Role/Relationship Status Dates [facility] Primary Care Provider Active Start: March 05, 2025 Dr. Kassi Baker DO Emergency Provider Active Start: March 05, 2025 Dr. Kavita Myles MD Admit Provider Active Star t: March 05, 2025 Dr. Kavita Myles MD Other Provider Active Star t: March 05, 2025 Leeann Miller NP-C Other Provider Active Start: March Dr. Zackery Soares MD Attending Provider Active Start: March 05, 2025 Dr. Zackery Soares MD Other Provider Active Star t: March 05, 2025 Dr. Javid Loera MD Other Provider Active Start: March 05, 2025 Dr. Zackery Myrick DO Other Provider Active Sta rt: March 05, 2025 Dr. Umu Rodrigez MD Other Provider Active Start : March 05, 2025 Dr. Jade Chavarria MD Other Provider Active St art: March 05, 2025 Consuelo Lopez NP-C Other Provider Active Sta rt: March 05, 2025 Lulu Murry NP [employer] Other Provider Active Start: March 05, 2025 MARIANNA Warren Other Provider Active Start: 2024 Team Status: Active Member Role/Relationship Status Dates [facility] Primary Care Provider Active Start: March 05, 2025 Dr. Kassi Baker DO Emergency Provider Active Start: March 05, 2025 Dr. Kavita Myles MD Admit Provider Active Star t: March 05, 2025 Dr. Kavita Myles MD Other Provider Active Star t: March 05, 2025 Leeann Miller NP-C Attending Provider Active Start: March Leeann Miller NP-C Other Provider Active Start: March Dr. Zackery Soares MD Other Provider Active Star t: March 05, 2025 Dr. Javid Loera MD Other Provider Active Start: March 05, 2025 Dr. Zackery Myrick DO Other Provider Active Sta rt: March 05, 2025 Dr. Umu Rodrigez MD Other Provider Active Start : March 05, 2025 Dr. Jade Chavarria MD Other Provider Active St art: March 05, 2025 Consuelo Lopez NP-C Other Provider Active Sta rt: March 05, 2025 Lulu Murry NP [employer] Other Provider Active Start: March 05, 2025 MARIANNA Warren Other Provider Active Start: S temb 2024 Team Status: Active Member Role/Relationship Status Dates [facility] Primary Care Provider Active Start: March 06, 2025 Dr. Kassi Baker DO Emergency Provider Active Start: March 06, 2025 Dr. Kavita Myles MD Admit Provider Active Star t: March 06, 2025 Dr. Kavita Myles MD Other Provider Active Star t: March 06, 2025 Leeann Miller [employer] Other Provider Active Start: March Dr. Zackery Soares MD Other Provider Active Star t: March 06, 2025 Dr. Javid Loera MD Other Provider Active Start: March 06, 2025 Dr. Zackery Myrick DO Other Provider Active Sta rt: March 06, 2025 Dr. Umu Rodrigez MD Other Provider Active Start : March 06, 2025 Dr. Jade Chavarria MD Other Provider Active St art: March 06, 2025 Consuelo Lopez [employer]-C Other Provider Active Sta rt: March 06, 2025 Lulu Murry NP [employer] Other Provider Active Start: March 06, 2025 MARIANNA Warren Other Provider Active Start[facility] [address] Dr. Marissa Gallardo MD Attending Provider Active Start: March 06, 2025 Team Status: Active Member Role/Relationship Status Dates [facility] Primary Care Provider Active Start: March 07, 2025 Dr. Kassi Baker DO Emergency Provider Active Start: March 07, 2025 Dr. Kavita Myles MD Admit Provider Active Star t: March 07, 2025 Dr. Kavita Myles MD Other Provider Active Star t: March 07, 2025 Leeann Miller NP-C Other Provider Active Start: March Dr. Zackery Soares MD Attending Provider Active Start: March 07, 2025 Dr. Zackery Soares MD Other Provider Active Star t: March 07, 2025 Dr. Javid Loera MD Other Provider Active Start: March 07, 2025 Dr. Zackery Myrick DO Other Provider Active Sta rt: March 07, 2025 Dr. Umu Rodrigez MD Other Provider Active Start : March 07, 2025 Dr. Jade Chavarria MD Other Provider Active St art: March 07, 2025 Consuelo Lopez [employer]-C Other Provider Active Sta rt: March 07, 2025 Lulu Murry W[employer]OPE [employer]ING MAKER, [employer]ING [employer]KER-C Other Provider Active Start: March 07, 2025 MARIANNA Warren Other Provider Active Start: S eptember 2024 Team Status: Active Member Role/Relationship Status Dates [facility] Primary Care Provider Active Start: March 08, 2025 Dr. Kassi Baker DO Emergency Provider Active Start: March 08, 2025 Dr. Kavita Myles MD Admit Provider Active Star t: March 08, 2025 Dr. Kavita Myles MD Other Provider Active Star t: March 08, 2025 Leeann Miller NP-C Other Provider Active Start: March Dr. Javid Loera MD Other Provider Active Start: March 08, 2025 Dr. Zackery Myrick DO Other Provider Active Sta rt: March 08, 2025 Dr. Umu Rodrigez MD Other Provider Active Start : March 08, 2025 Dr. Jade Chavarria MD Other Provider Active St art: March 08, 2025 Consuelo Lopez , [employer]KER-C Other Provider Active Sta rt: March 08, 2025 Lulu Murry W[employer]OPE [employer]ING MAKER, [employer]ING [employer]ER-C Other Provider Active Start: March 08, 2025 MARIANNA Warren Other Provider Active Start: [place] 2024 Dr. Pj Roper DO Attending Provider Active Start: March 08, 2025 Dr. Pj Roper DO Other Provider Active Star t: March 08, 2025 Dr. Zackery Soares MD Other Provider Active Star t: March 08, 2025 Team Status: Active Member Role/Relationship Status Dates [facility] Provider Active Start: March 08, 2025 Dr. Kassi Baker DO Emergency Provider Active Start: March 08, 2025 Dr. Kavita Myles MD Admit Provider Active Star t: March 08, 2025 Dr. Kavita Myles MD Other Provider Active Star t: March 08, 2025 Leeann Miller NP-C Attending Provider Active Start: March Leeann Miller NP-C Other Provider Active Start: March Dr. Javid Loera MD Other Provider Active Start: March 08, 2025 Dr. Zackery Myrick DO Other Provider Active Sta rt: March 08, 2025 Dr. Umu Rodrigez MD Other Provider Active Start : March 08, 2025 Dr. Jade Chavarria MD Other Provider Active St art: March 08, 2025 Consuelo Lopez , EDUAR-C Other Provider Active Sta rt: March 08, 2025 Lulu Murry NP, [employer]-C Other Provider Active Start: March 08, 2025 MARIANNA Warren Other Provider Active Start: S [place] [address]24 Dr. Pj Roper DO Other Provider Active Star t: March 08, 2025 Dr. Zackery Soares MD Other Provider Active Star t: March 08, 2025 Team Status: Active Member Role/Relationship Status Dates [facility] Primary Care Provider Active Start: March 09, 2025 Dr. Krishna Guillaume DO Emergency Provider Active Start: March 09, 2025 Dr. Zackery Christian DO Admit Provider Active Start: March 09, 2025 Dr. Zackery Christian DO Attending Provider Active Start: March 09, 2025 Goals (unrecognized section and content) Goals may be documented in a n alternate sectionGoals may be documented in an alternate section FOR RECORDS PERTAINING TO PATIENTS [...] BE BASED ON THE PRIMARY CLINICAL RECORDS. [employer] provides no warranty or guarantee of the accuracy or completeness of information in this document.
[2025-03-10] VITALS (46 sets, daily range): BP systolic 83–128; BP diastolic 57–99; PULSE 63–160; RESP 12–26; TEMP 35.7–36.5; O2SAT 92–100; BMI 19.7
[2025-03-10] MEDS: 0.9% Saline Lock 10 ML Syringe IV ×3 (00:11→08:20)
[2025-03-10] MEDS: Digoxin 250 MCG/ML Ampul 500 MCG IV (00:11)
[2025-03-10] MEDS: Diltiazem 125 MG in Dextrose 5%-Water (100mL Bag) 100 ML IV (02:08)
[2025-03-10] MEDS: Vancomycin HCl 750 MG in 0.9% Normal Saline (250mL Bag) 250 ML 250 MG IV (04:39)
[2025-03-10] MEDS: Norepinephrine 8 MG in 0.9% Normal Saline (250mL Bag) 242 ML 18.8 MG CONT INF (04:46)
[2025-03-10 04:47] LABS: FI02 3.0; SITE Central Line; VBG BASE EXCESS 10 mmol/L (-1.0-3.5); VBG PO2 34 mmHg (25-40); VBG SO2 66 % (50-70); VBG TCO2 35 mmol/L (23-33)
--- NOTE | 2025-03-10 05:20 | RAD_ITS ---
PROCEDURE: CHEST 1 VIEW (PORTABLE) 03/10/2025 REASON FOR EXAM: AE CHF AND POSTOBSTRUCTIVE PNA. TECHNIQUE: Frontal view of the chest. COMPARISON: March 09, 2025, January 04, 2025 FINDINGS: Hardware: EKG leads Heart: Mildly enlarged Lungs: Near-complete opacification left hemithorax is present similar to prior exam. Review of prior CT showed mixed atelectasis and airspace disease on the left. The right shows innumerable nodules. Lymphadenopathy is better seen on prior CT. Bones: The bones are unremarkable. RAD/Chest 1 View (Portable) IMPRESSION: 1. No significant change. Near-complete opacification left hemithorax. Under lying pneumonia should be considered as well as extensive metastatic disease. Reading Location: [id number]
[2025-03-10 05:24] LABS: Pro- Brain NATRIURETIC PEPTIDE 4495 pg/mL (<=900)
[2025-03-10] MEDS: Piperacil/Tazobactam 3.375 GM in 0.9% Normal Saline (50mL MB+) 50 ML IV ×2 (05:45→13:59)
--- NOTE | 2025-03-10 07:01 | PCM.PN.HOSP ---
Reason for Visit Chief Complaint: SOB. Subjective Subjective Required BiPAP, but since weaned down to nasal canula. Complaining of pain when he swallows. Objective Data Objective Data Vital Signs: Vital Signs Temp Pulse Resp BP Pulse Ox O2 Del Method O2 Flow Rate 36.5 C L 105 H 14 109/68 100 Bi-pap 3 03/10/25 05:00 03/10/25 06:00 03/10/25 06:00 03/10/25 06:00 03/10/25 06:00 03/10/25 06:00 03/10/25 05:00 FiO2 30 03/10/25 06:00 Oxygen Flow Rate (L/min) 3 Oxygen Delivery Method Bi-pap Weight: 62.3 kg Body Mass Index (BMI) 19.7 Intake & Output: Intake and Output for Last 24 Hours 03/08/25 03/09/25 03/10/25 23:59 23:59 23:59 Intake Total 1271.21 / 1290.01 475.25 / 475.25 Output Total 600 / 600 650 / 650 Balance 671.21 / 690.01 -174.75 / -174.75 Lab / Micro Data 03/10/25 04:40 03/10/25 04:40 Labs: Laboratory Results - last 24 hr 03/09/25 15:03: WBC 14.7 H, RBC 3.96 L, Hgb 10.7 L, Hct 33.8 L, MCV 85.4, MCH 27.0, MCHC 31.7 L, RDW Std Deviation 49.4 H, RDW Coeff of Hai 15.8 H, Plt Count 552 H, MPV 9.9, Immature Gran % (Auto) PAPERHANGER APPRENTICE, Neut % (Auto) PAPERHANGER APPRENTICE, Lymph % (Auto) PAPERHANGER APPRENTICE, [place] % (Auto) PAPERHANGER APPRENTICE, Eos % (Auto) PAPERHANGER APPRENTICE, Baso % (Auto) PAPERHANGER APPRENTICE, Absolute Neuts (auto) 11.9 H, Absolute Lymphs (auto) 0.59 L, Total Counted 100, Neutrophils % (Manual) 78 H, Band Neutrophils % 3, Lymphocytes % (Manual) 4 L, Monocytes % (Manual) 7, Metamyelocytes % 3 H, Myelocytes % 5 H, Nucleated RBC % PAPERHANGER APPRENTICE, Platelet Estimate MOD INC, PT 16.6 H, INR 1.3, APTT 39.7 H, Lactic Acid 2.8 H* 03/09/25 15:20: Sodium 131 L, Potassium 4.6, Chloride 90 L, Carbon Dioxide 25.4, Anion Gap 15, BUN 23 H, Creatinine 0.97, Estim Creat Clear Calc 66.38, Est GFR (MDRD) Non-Af 84, BUN/Creatinine Ratio 23.9 H, Glucose 107 H, Calcium 9.3, Total Bilirubin 0.73, AST 48 H, ALT 22, Alkaline Phosphatase 163 H, Troponin T High Sens 48 H D, NT pro BNP II 2417 H, Total Protein 6.8, Albumin 2.9 L, Globulin 3.9, Albumin/Globulin Ratio 0.7 L 03/09/25 17:25: Troponin T Hi Sens 2 Hr 42 H 03/09/25 19:25: Urine Color Yellow, Urine Clarity Clear, Urine pH 6.0, Ur Specific [place] 1.010, Urine Protein 30 H, Urine Glucose (UA) Normal, Urine Ketones Negative, Urine Occult Blood Negative, Urine Nitrite Negative, Urine Bilirubin Negative, Urine Urobilinogen Normal, Ur Leukocyte Esterase Negative, Urine RBC 0-5 SEEN, Urine WBC 0-5 SEEN, Ur Squamous Epith Cells 0-5 SEEN, Urine Bacteria 0 SEEN, Urine Mucus 0 SEEN 03/09/25 19:36: Troponin T Hi Sens 4Hr 38 H 03/09/25 19:48: Lactic Acid 1.8 03/10/25 04:40: NT pro BNP II 4495 H Micro: Microbiology 03/09/25 19:25 Urine, Clean Catch Legionella Antigen - Final 03/09/25 19:25 Urine, Clean Catch Streptococcus pneumoniae Antigen (M - Final 03/09/25 15:36 Mucosa - Nose SARS-CoV-2, Influenza & RSV (PCR) - Final SARS-CoV-2 (COVID 19 PCR) ABG Data ABG results: ABG 03/09/25 03/10/25 15:24 04:39 Specimen Type WILDA WILDA Sample Site Not entered Central Line O2 % 3.0 VBG pH 7.49 H 7.44 H VBG pO2 27 34 VBG HCO3 30 H 34 H VBG Total CO2 31 35 H VBG O2 Sat (Calc) 57 66 VBG Base Excess 7 H 10 H POC Mix VBG pCO2 Pt Tmp 39.2 L 49.4 O2 Delivery Device Not entered Cannula Radiography Diagnostic Testing: Radiology Impression Chest X-Ray 03/09/25 15:45 IMPRESSION: Interval progression of pulmonary malignancy with near-complete opacification of left hemithorax with underlying left upper lobe/perihilar mass lesion as previously described, likely with postobstructive atelectasis and/or pneumonia, and coexisting pleural effusion. Increased conspicuity of numerous nodular cannonball metastases throughout the right lung. Reading Location: [facility] Chest CTA 03/09/25 16:36 IMPRESSION: No acute findings; no pulmonary arterial emboli identified. Advanced pulmonary malignancy with widespread metastatic lymphadenopathy and associated findings as described above. No significant interval change from 03/01/2025. Reading Location: [facility] Chest X-Ray 03/10/25 05:20 IMPRESSION: 1. No significant change. Near-complete opacification left hemithorax. Underlying pneumonia should be considered as well as extensive metastatic disease. Reading Location: [facility] Physical Exam Const Constitutional Narrative: on room air, cachectic. yelling in pain when he would swallow several times while I was in the room. HEENT head/scalp atraumatic and moist oral mucous membranes Neck no lymphadenopathy and supple Resp no retractions Resp Narrative: bronchial BS in left lung field. clear on right. dullness to percussion on left. Cardio regular rate, regular rhythm, S1 normal heart sound and S2 normal heart sound GI normal to inspection, nondistended, normoactive bowel sounds, soft to palpation and non-tender Neuro Sensorium / Orientation: awake and alert Assessment & Plan Assessment/Plan (1) Shock: PLAN: undifferentiated septic cardiogenic. CTA negative for VTE on norepinephrine. abx w vanc and pip/tazo CCM consult (2) Respiratory failure: PLAN: improved hypercapnic on BiPAP 2/2 post-obstructive pneumonia, lung cancer, COVID-19. Though no GGO on CTA, so I suspect the COVID is not significantly impacting respiratory issues. (3) Pneumonia: PLAN: left sided. post-obstructive pip/tazo and vanc. Not significantly changed from prior CT (4) COVID-19: PLAN: positive on the . Was not checked last admission. Unclear time of onset given previous hospitalization. Already on steroids with methylprednisolone. Will Started on remdesivir. (5) Odynophagia: PLAN: no oral thrush, though cannot rule out chastity esophagitis. add viscous lidocaine. PLAN: Plan Chronic conditions: A-fib flutter ? EKG reviewed and demonstrates presence of A-fib flutter? New diagnosis. Patient did receive Cardizem. Also metoprolol continued. Patient started on systemic anticoagulation with apixaban 2D echo from 03/01/2025 did show moderate global left ventricular systolic dysfunction. The left ventricular ejection fraction is 35 %. Stage 1 diastolic dysfunction.Mild (1+) tricuspid valve insufficiency. Plan is to continue to monitor on telemetry and if patient does not respond to initial management patient be started on a Cardizem drip? 03/07/2025; patient was started on Cardizem during the night. Plan is to wean off and start patient on p.o. Cardizem Metastatic lung CA? Patient has apparently failed immunotherapy. Care is at the [facility] patient is requesting to be transferred to the [place] did explain to patient the best option would be for patient to be discharged after being assessed for home oxygen and then he can follow-up Hyponatremia? resolved. 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 Patient was seen in consultation by dietary recommendations reviewed DVT prophylaxis not indicated as already on apixaban. Charges/Coding Visit Charges Inpatient E&M: 98336 Subs Hosp L2
[2025-03-10 07:32] LABS: Hematocrit 33.5 % (40-54); Hemoglobin 10.6 g/dL (13.0-16.5); Mean Corp Hgb Conc 31.6 g/dL (32-36); Mean Corpuscular Volume 84.8 fL (80-94); Mean Platelet Vol. 10.0 fl (6.2-12.0); POSITIVE COUNT YES; POSITIVE DIFFERENTIAL YES; POSITIVE MORPHOLOGY YES; Platelet Count 632 K/mm3 (150-450); RBC Distribution Width CV 16.0 % (11.6-14.6); RBC Distribution Width SD 49.5 fl (35.1-43.9); Red Blood Count 3.95 M/mm3 (4.6-6.2); White Blood Count 15.0 K/mm3 (4.4-11.0)
[2025-03-10 07:33] LABS: Differential Indicated MANUAL DIFF
[2025-03-10 08:00] LABS: Anion Gap 18 (5-15); BUN 23 mg/dL (4-19); BUN/Creat Ratio 22.2 RATIO (10-20); Calcium,Total 9.1 mg/dL (7.6-11.0); Carbon Dioxide 26.3 mmol/L (21.0-32.0); Chloride 91 mmol/L (98-108); Estimated Creatinine Clearance 59.07 ml/min (50-250); Glucose 158 mg/dL (70-99); Potassium 3.8 mmol/L (3.3-5.1)
--- NOTE | 2025-03-10 08:11 | EX.PCM.CONCC ---
Assessment & Plan Assessment/Plan (1) COVID-19: (2) Respiratory failure: (3) Shock: PLAN: Plan RECOMMENDATIONS: 1. Stop Cardizem infusion. Avoid additional Lasix administration. 2. Okay to wean from BiPAP to nasal cannula oxygen. Goal to maintain saturation is 88 to 92%. 3. Continue to wean Levophed as tolerated. 4. Maintain potassium greater than 4 and magnesium greater than 2. 5. Continue corticosteroids and administer remdesivir. 6. Okay to continue empiric antibiotics for now. 7. Agree with palliative care consultation to readdress goals of care/CODE STATUS once again. IMPRESSIONS: 1. Undifferentiated shock I do suspect a multifactorial etiology. The patient's baseline blood pressures appear to be running in the 90s based upon the trend noted during his prior hospitalization. I do suspect that the exacerbation of his presenting hypotension was likely precipitated by Lasix administration and Cardizem. While sepsis secondary to postobstructive pneumonia is a possibility, the patient was just admitted to the hospital and completed a treatment course of antimicrobials. At this time, we will plan to hold diuretics and Cardizem, as the patient appears to be in normal sinus rhythm. Plan to continue to wean Levophed as tolerated. Empiric antimicrobials were once again reinitiated. 2. Acute hypoxemic respiratory failure Secondary to progressive metastatic lung cancer leading to postobstructive pneumonia, complicated by acute COVID-19 infection. Ultimately, the patient has no treatment options left regarding his underlying malignancy. He is followed through the [place] [facility]. In light of this, I agree with re-involving palliative care to once again addressed goals of care and CODE STATUS with the patient and his family. In the interim, the patient will be started on scheduled Atrovent aerosols to prevent exacerbating his atrial fibrillation. Corticosteroids have been initiated along with remdesivir. The patient is certainly hospice appropriate from my perspective. 3. Paroxysmal atrial fibrillation/history of heart failure with reduced ejection fraction In light of the patient's hypotension, recommend holding diuretics and Cardizem for now. The patient is currently in normal sinus rhythm. Will continue to monitor accordingly. 4. History of metastatic lung cancer/malnutrition/hyponatremia Complicates care, management, recovery and prognosis. The patient has a known history of stage IV metastatic lung cancer, which has been refractory to treatment. The patient is significantly debilitated with poor functional status. Therefore, I agree with palliative care consultation once again to readdress goals of care and CODE STATUS with the patient/family. Supportive care will be continued, in the interim, as noted above. TIME: 35 minutes of critical care time, independent of procedures, was spent addressing the patient's undifferentiated shock, acute hypoxemic respiratory failure, paroxysmal atrial fibrillation, metastatic lung cancer, review of all data and collaboration with the care team. HPI Consult Data Date of Consult: 03/10/25 HPI Narrative Reason for Consultation: Critical care management HPI Narrative: The patient is a 69-year-old male, with a history as outlined below, who presented to the emergency department on March 09 with complaints of progressive dyspnea. The patient has a known history of heart failure with reduced ejection fraction, paroxysmal atrial fibrillation and stage IV metastatic lung cancer which has failed to respond to treatment. The patient was just discharged from the hospital yesterday after having been admitted with hypoxemia with concern for postobstructive pneumonia and acute decompensated heart failure. During the patient's prior hospitalization, he was evaluated by palliative care medicine, with CODE STATUS noted to be DNR CCA without intubation. However, he was not apparently interested in involving hospice care services. The patient's last documented blood pressure prior to his discharge home was noted to be 94/70 mmHg. On presentation to the emergency department, the patient was noted to be afebrile but was tachycardic and tachypneic with a blood pressure of 88/70 mmHg. Laboratory evaluation was notable for a white blood cell count of 15,000. Hemoglobin and platelet count were stable. Chemistry profile was notable for a lactate of 2.8 with a sodium of 131, chloride of 90 and creatinine of 0.97. BNP was elevated at 2417. Urine analysis was unremarkable. CTA chest showed no evidence for pulmonary embolism. There was no significant interval change on the CT scan from his most recent hospitalization with a left upper lobe mass noted with infiltration into the mediastinum leading to postobstructive consolidation and near complete opacification of the left lung. The patient subsequently tested positive for COVID-19. In the ED, the patient received a 500 cc bolus. He was subsequently placed on antimicrobials. EKG was consistent with atrial fibrillation with RVR. A femoral central venous catheter was placed and the patient was initiated on Levophed. He was admitted to the medical intensive care unit for further management. Overnight, the patient had increasing vasopressor requirement in the setting of administration of IV Lasix and IV Cardizem infusion. The patient appears to have converted back to normal sinus rhythm. [facility] Medical History Hernia Lung cancer Home Medications ?Medication ?Instructions ?Recorded ?Last Taken ?Type dexamethasone 4 mg tablet 4 mg PO DAILY unknown 03/02/25 Unknown History empagliflozin 25 mg tablet 12.5 mg PO DAILY unknown 03/02/25 Unknown History (Jardiance) ondansetron 8 mg disintegrating 8 mg PO Q8H nausea 03/02/25 Unknown History tablet oxycodone 5 mg capsule 5 mg PO Q4H pain 03/02/25 03/02/25 History furosemide 40 mg tablet 40 mg PO DAILY #30 tabs 03/05/25 Unknown Rx guaifenesin 1,200 mg tablet, 1,200 mg PO BID #60 tabs 03/05/25 Unknown Rx extended release 12 hr (Mucus Relief ER) potassium chloride 20 mEq 20 meq PO BIDCM #60 tabs 03/05/25 Unknown Rx tablet,extended release(part/cryst) sennosides 8.6 mg-docusate sodium 2 tab PO BID #60 tabs 03/05/25 Unknown Rx 50 mg tablet (Stimulant Laxative Plus) apixaban 5 mg tablet (Eliquis) 5 mg PO BID #60 tabs 03/08/25 Unknown Rx diltiazem HCl 120 mg 120 mg PO BID #60 caps 03/08/25 Unknown Rx capsule,extended release 24 hr metoprolol succinate 50 mg 50 mg PO DAILY #30 tabs 03/08/25 Unknown Rx tablet,extended release 24 hr Allergy/AdvReac Type Severity Reaction Status Date / Time No Known Allergies Allergy Verified 01/04/25 06:26 Social History Smoking Status: Former smoker ROS ROS Narrative 10 systems were reviewed with pertinent positives as noted in the HPI above. Physical Exam Const alert and oriented x3 General Appearance: cooperative and ill appearing HEENT normocephalic and head/scalp atraumatic Eyes PERRL, EOMs intact bilaterally and conjunctivae normal Neck supple General: trachea midline Chest inspection of chest normal Resp Effort and Inspection: tachypneic Auscultation: diminished lung sounds Cardio regular rate and regular rhythm GI normal to inspection, nondistended, normoactive bowel sounds Extremity no clubbing, cyanosis or edema Skin no rashes or lesions noted Neuro CN's II-XII intact bilaterally, moves all extremities and no focal motor deficits Psych Activity / Motor Behavior: restless Mood & Affect: anxious Lab / Micro Data 03/10/25 04:40 03/10/25 04:40 Labs: Laboratory Results - last 24 hr 03/09/25 15:03: WBC 14.7 H, RBC 3.96 L, Hgb 10.7 L, Hct 33.8 L, MCV 85.4, MCH 27.0, MCHC 31.7 L, RDW Std Deviation 49.4 H, RDW Coeff of Hai 15.8 H, Plt Count 552 H, MPV 9.9, Immature Gran % (Auto) CUPOLA OPERATOR, Neut % (Auto) CUPOLA OPERATOR, Lymph % (Auto) CUPOLA OPERATOR, [place] % (Auto) CUPOLA OPERATOR, Eos % (Auto) CUPOLA OPERATOR, Baso % (Auto) CUPOLA OPERATOR, Absolute Neuts (auto) 11.9 H, Absolute Lymphs (auto) 0.59 L, Total Counted 100, Neutrophils % (Manual) 78 H, Band Neutrophils % 3, Lymphocytes % (Manual) 4 L, Monocytes % (Manual) 7, Metamyelocytes % 3 H, Myelocytes % 5 H, Nucleated RBC % CUPOLA OPERATOR, Platelet Estimate MOD INC, PT 16.6 H, INR 1.3, APTT 39.7 H, Lactic Acid 2.8 H* 03/09/25 15:20: Sodium 131 L, Potassium 4.6, Chloride 90 L, Carbon Dioxide 25.4, Anion Gap 15, BUN 23 H, Creatinine 0.97, Estim Creat Clear Calc 66.38, Est GFR (MDRD) Non-Af 84, BUN/Creatinine Ratio 23.9 H, Glucose 107 H, Calcium 9.3, Total Bilirubin 0.73, AST 48 H, ALT 22, Alkaline Phosphatase 163 H, Troponin T High Sens 48 H D, NT pro BNP II 2417 H, Total Protein 6.8, Albumin 2.9 L, Globulin 3.9, Albumin/Globulin Ratio 0.7 L 03/09/25 17:25: Troponin T Hi Sens 2 Hr 42 H 03/09/25 19:25: Urine Color Yellow, Urine Clarity Clear, Urine pH 6.0, Ur Specific [place] 1.010, Urine Protein 30 H, Urine Glucose (UA) Normal, Urine Ketones Negative, Urine Occult Blood Negative, Urine Nitrite Negative, Urine Bilirubin Negative, Urine Urobilinogen Normal, Ur Leukocyte Esterase Negative, Urine RBC 0-5 SEEN, Urine WBC 0-5 SEEN, Ur Squamous Epith Cells 0-5 SEEN, Urine Bacteria 0 SEEN, Urine Mucus 0 SEEN 03/09/25 19:36: Troponin T Hi Sens 4Hr 38 H 03/09/25 19:48: Lactic Acid 1.8 03/10/25 04:40: WBC 15.0 H, RBC 3.95 L, Hgb 10.6 L, Hct 33.5 L, MCV 84.8, MCH 26.8 L, MCHC 31.6 L, RDW Std Deviation 49.5 H, RDW Coeff of Hai 16.0 H, Plt Count 632 H, MPV 10.0, Neut % (Auto) Not Reportable, Sodium 135, Potassium 3.8, Chloride 91 L, Carbon Dioxide 26.3, Anion Gap 18 H, BUN 23 H, Creatinine 1.04, Estim Creat Clear Calc 59.07, Est GFR (MDRD) Non-Af 78, BUN/Creatinine Ratio 22.2 H, Glucose 158 H, Calcium 9.1, NT pro BNP II 4495 H Micro: Microbiology 03/09/25 19:25 Urine, Clean Catch Legionella Antigen - Final 03/09/25 19:25 Urine, Clean Catch Streptococcus pneumoniae Antigen (M - Final 03/09/25 15:36 Mucosa - Nose SARS-CoV-2, Influenza & RSV (PCR) - Final SARS-CoV-2 (COVID 19 PCR) ABG Data ABG results: ABG 03/09/25 03/10/25 15:24 04:39 Specimen Type WILDA WILDA Sample Site Not entered Central Line O2 % 3.0 VBG pH 7.49 H 7.44 H VBG pO2 27 34 VBG HCO3 30 H 34 H VBG Total CO2 31 35 H VBG O2 Sat (Calc) 57 66 VBG Base Excess 7 H 10 H POC Mix VBG pCO2 Pt Tmp 39.2 L 49.4 O2 Delivery Device Not entered Cannula Imaging Radiology Impression Chest X-Ray 03/09/25 15:45 IMPRESSION: Interval progression of pulmonary malignancy with near-complete opacification of left hemithorax with underlying left upper lobe/perihilar mass lesion as previously described, likely with postobstructive atelectasis and/or pneumonia, and coexisting pleural effusion. Increased conspicuity of numerous nodular cannonball metastases throughout the right lung. Reading Location: [facility] Chest CTA 03/09/25 16:36 IMPRESSION: No acute findings; no pulmonary arterial emboli identified. Advanced pulmonary malignancy with widespread metastatic lymphadenopathy and associated findings as described above. No significant interval change from 03/01/2025. Reading Location: [facility] Chest X-Ray 03/10/25 05:20 IMPRESSION: 1. No significant change. Near-complete opacification left hemithorax. Underlying pneumonia should be considered as well as extensive metastatic disease. Reading Location: [facility] Charges/Coding Procedures Hospitalists Procedures: 63077 Critical Care 1st Hr
[2025-03-10] MEDS: Potassium Chloride Oral Tablet 20 MEQ PO (08:21)
[2025-03-10] MEDS: Magnesium Chloride 64 MG Delay Rel.Tablet 128 MG PO (08:21)
[2025-03-10] MEDS: Lactobacillis Acidophilus 1 CAP PO ×2 (08:22→13:59)
[2025-03-10 08:35] LABS: Neutrophil-Segmented 89 % (47-70); Total Cells Counted 100 (MANUAL DIFF)
[2025-03-10 08:37] LABS: Red Cell Morphology NORM C+C NORMAL (NORM C&C)
[2025-03-10 09:10] LABS: CRP 254.00 mg/L (0.0-3.0); Magnesium 1.9 mg/dL (1.5-2.2)
[2025-03-10] MEDS: Ipratropium 0.5 MG/2.5 ML SOLUTION INHALATION ×3 (10:29→19:21)
[2025-03-10] MEDS: APIXABAN 5 MG TABLET PO (10:34)
[2025-03-10] MEDS: Pantoprazole Sodium 40 MG in 0.9% Normal Saline (100mL MB+) 100 ML 330 MG IV (10:35)
[2025-03-10] MEDS: Remdesivir 200 MG IV x1 (Inital Dose)-All Patients 125 MG IV (10:38)
[2025-03-10] MEDS: 0.9% Normal Saline (250mL Bag) 250 ML 15 ML IV (10:38)
--- NOTE | 2025-03-10 10:50 | CASEMGMT ---
TOMAS LEAL Readmission Chart Review Index: 03/01-03/08/25. Dx: Postobstructive Pneumonia, Fluid Overload Current: 03/09/25. Dx: Sepsis with Postobstructive PNA and Ca with mets From the index admission, the patient refused hospice services and was [facility] with his [facility] See previous RN MEL notes regarding oxygen setup. Per chart review, the patient is [facility]. During ICU rounds, the analyst geochemical prospecting reports that the patient is still hospice appropriate and consulted the inpatient Palliative Care MANAGER SITE, Leeann. Leeann was able to evaluate the patient at the bedside and then collaborated with this food writer. Leeann states that the pt warrants hospice and that the patient is agreeable and prefers [facility]. SW is notified and plans to make arrangements. Leeann also plans to contact [facility] to notify them of the status. No further needs identified at this time. Plan: Hospice [facility] Cheri BREWER RN, CM
--- NOTE | 2025-03-10 11:08 | PCM.PN.PAL ---
Subjective Subjective 03/10/25: Patient was discharged to home on 03/08 and readmitted to the emergency department on 03/09, for worsening dyspnea. He did have another episode of A-fib with RVR and was given Cardizem. He is currently on small amount of Levophed for his blood pressure. He was placed on BiPAP for obstructive pneumonia. He was then taken to the ICU. I was reconsulted to speak with him today. He is in COVID precautions as he did test positive for COVID in the emergency department. Upon meeting with family at bedside, he initially did not recognize me. He is very frail in appearance. Once we started talking we recognized why residences reintroduction and he did perk up slightly. I did note that he has a nasal cannula in room at 3 L and is speaking in 3-4 word sentences and appears to be short of breath. He is very gaunt in appearance and cachectic. We had an extensive discussion about his goals of care going forward and he states that when he got home he was fearful. He states that he is not afraid to but that he is fearful of the process of getting them. I then asked him if he mind that if I had a very abhijeet and honest discussion with him. We have developed a good rapport over the last several days. Ino stated that he spoke with that conversation. He stated understanding that he is most likely not going to happen to his recovery that he was hoping for. He does understand that he is getting progressively worse. He did state that he is open to hospice but does not want to go home. We then discussed the possibility of him going to the inpatient unit giving his drastic decline over the last 24 hours. He did state that he would like to go somewhere that is beautiful and that he could see trees. I explained to him what the inpatient unit and used to look like and that I thought that was a good fit for him. He did not express his fear of suffering at end-of-life and I did assure him that inpatient hospice would assist him with controlling symptoms as his clinical picture evolves. He did state that he was interested in going to the inpatient unit and is accepting participate. He states that he is still holding out hope for miraculous recovery and a miracle, but knows that that may not happen. I did explain that if he does receive his miracle, there is no reason why he cannot go home. He stated understanding. I did ask him 3 separate times if he was sure that this is what he wanted in which he did assure me that this is the best decision. I asked him if he would like me to contact his Deyanira vick or if he would like to contact them. Initially he asked me to contact her but after further conversation realized that it would be best if the information came from him. All questions Addy had were answered. I did reach out to life care providers to update them about Addy's progression and his desire to go to an inpatient unit. I then let Dr. Winn know patient's decision as well as case management. 03/08/25: Prior to meeting with the patient at bedside I reviewed documentation including the weekend. Also reviewed labs and EKGs. I then met the evening at bedside. He is in good spirits. We talked about the mixup with his oxygen in which it got delivered to the wrong address on Saturday thus seeking to stay in the hospital over the weekend. He stated everything happens for a reason. He had an episode of A-flutter with RVR in which she received a Cardizem drip and now receiving oral Cardizem in addition to his metoprolol. He was also started on apixaban.. Addy is hoping to return home today after getting his oxygen delivered. He is hopeful to talk to his oncologist to discuss options going forward. He is planning to follow-up with the palliative care team. My time during assessment [facility] did excuse myself so he may speak with them. And he had no questions. 03/05/25: Prior to meeting with the pt at bedside, I reviewed documentation from overnight. I also talked to DAXA/MEL about meeting the pt had with hospice yesterday. I then met with Addy at bedside. When I initially entered the room, he was very agitated and stated that the hopsice meeting was crap. I did ask him to explain. He stated that he is unable to continue to seek treatment while on hospice. I did explain to him that he can continue to seek eastern medicine treatments that he had discussed before but that anything that would pull from his medicare, would not be allowed. He states understanding and stated that his philosophy and that of the hospice did not gel well. I did state understanding . We then discussed what his hopes are going forward. He is hoping to find an oncologist that can continue with treatments, even if they are trials. He wants to continue with meditation, diet and activity as well as other modalities that he can assist with the possibility of healing. He is agreeing to follow up with palliative care provider Dr. eBrna Jiménez, whom he is established. I will contact her today for a warm handoff. All questions answered. Pt is waiting for O2 delivery at home for discharge. 03/04/25: I did meet with Addy in his room. He was in AIRTAME and Deyanira was also in the room for support. Pt did report having 9/10 pain last night. I was contacted to confirm that the pt takes Oxy 10mg PO for severe pain. Addy endorsed that he feels that going home with hospice is his best option. He plans to continue adjunct modalities to his traditional medical practices. He does acknowledge some SOB this morning but states manageable He was, initially speaking in 3-4 word sentences but as he became distracted with our discussion, I noted his breathing to ease and he was able to speak in complete sentences. He plans to continue writing a memoir about his dealing with cancer diagnosis. Addy is a deep thinker and I did encourage him to continue to do the things that brings him mick. All questions answered. 03/03/25: Creatinine is daily at bedside I did review documentation and labs from overnight. I did note that he has had an improvement in his WBCs from 13.5-11.4. Slight decrease in his hemoglobin hematocrit from 10.5-9.8 today and 32.6 yesterday to 30.3 today. Platelets continue to be elevated at 491. He is slightly hyponatremic with a sodium of 131. BUN is slightly elevated at 20 from 16 yesterday. Patient continues to receive Lasix. I then met with Emeterio finney. He was sitting up in his bed stabilizing his trunk well, away from the back of the bed. Family initially wanted to speak about alternative healing methods for his cancer. I do support his utilization of Eastern and Ayurvedic medicine to assist with his healing but I also discussed comfort measures while not receiving traditional Western medicine such as chemotherapy or radiation. I did discuss the possibility of hospice services for comfort in addition to his nontraditional healing practices. He did state that he will think about it as he thought it may be a good adjunct if he is unable to receive any further treatment from a Western medicine standpoint. He did state that he would like to receive all of his care from [facility] as he is embedded with them. He is hopeful that he will be able to find a provider that is willing to treat his cancer. We then discussed what the typical criteria is for continued Western medicine treatment in which Addy states understanding. I then discussed that yesterday he refused PT and OT and did not want to get the bed. I explained to him that he needs to be able to get out of the bed and utilize a walker if he wants any chance in receiving continue Western medicine. Addy did state understanding and states that he will work with PT and OT and is mad at himself or refusing yesterday. He expressed frustration over the management of his pain medications. He states that at home he takes oxycodone 2.5 mg or 5 mg up to 10 mg every 4 hours depending on symptoms and pain. I did state understanding and explained that that is a typical palliative order to utilize the lowest dose possible in managing symptoms. I do recommend oxycodone 2.5 mg p.o. every 4 hours as needed for mild pain 1-3 or mild shortness of breath, oxycodone 5 mg p.o. every 4 hours as needed for moderate pain 4-6 and/or moderate shortness of breath and oxycodone 10 mg p.o. every 4 hours as needed for severe pain 7-10 and/or severe shortness of breath. An attempt to meet Addy where he is at, will continue to discuss adjunct treatments and what that would look like for him going forward from a nutritional standpoint as well as his mind and spirit. Addy plans to more aggressively implement meditation, guided imagery and relaxation and exercises. He does note that his symptoms get worse when he becomes anxious or sad having a bad day. States good understanding of how his mind has been affecting symptoms. I did recommend that he finds a good balance between his Eastern philosophy and Western medicine which he states agreement. He does state that he is not against initiating hospice for comfort and that he would like to receive those services to through [facility] and would like to speak to them first. He does have a palliative care provider at the [facility]. I did encourage him to reach out to them sooner rather than later to get assistance with managing his symptoms. I then spoke with Dr. Loya, to update him on [facility]. He recommended the possibility of discharge to home and then have the patient reach out to his primary care providers for [facility] steps [facility] the [facility]. Lastly, I did speak to Addy about POA and the importance of establishing a POA going forward. Particularly, because he would like his fiVania caputoanita to be his decision-maker. He plans to initiate them as soon as he is discharged. Addy did take lots of notes during our conversation and asked very good questions, which were answered. Palliative care will continue to follow for support as the patient's clinical picture evolves. 03/02/25Prior to meeting with the pt at bedside, I reviewed previous documentation, labs, radiological studies and well as diagnostic studies. I then met with the pt at bedside. I introduced myself to both Addy and his fiance , Deyanira and the concept of palliative care, which they voluntarily accepted our services. I ask Addy what he knew of his diagnosis, in which he confirmed that his oncologist stated that he has completed 3 rounds of immunotherapy with no improvement in his cancer. They are not convinced that he will receive any further treatment from his oncologist. Addy continually talks about various doctors that have had great success with treatments Dr Segal and out of [place]. I did ask if he has reached out to these doctors and been accepted as a patient? He stated that he has not but states that he is going to have them contact the doctors here and they can tell them what to do. I explained to him that it typically doesn't work that way. He then talked about going to a cancer treatment center in [place]. Currently, he is not well enough for travel and I did ask him how he plans to get there. He did not have a response, at this time. I am concerned that he may be experiencing denial in his grief process. He did endorse that he spends 90% of his time in bed, while at home. I then discussed his Echocardiogram and gave he and Deyanira a overview of what it said with explanations. They both stated understanding. I explained his EF of 35% and elevated troponins x 3 of 36, 34 and 29. BNP of 2433, Along with his metastatic stage IV lung cancer without receiving any further treatments, would make him eligible for hospice. Both Addy and Deyanira stated that they don't feel they are ready for that. I did offer supportive listening and allowed them to change the subject and followed their trajectory. We did discuss the fact that he is very weak and will, most likely, not be a candidate for continued therapies unless he can gain some strength. He is open to continued PT/OT services to get stronger. He is currently waiting for a bed at [facility] and states that he feels his symptoms are being controlled well, at this time. He is open to further conversations and Palliative care will continue to follow. All questions answered. Per hospitalist EMETERIO CHENEY, is a 69y/o male w/ hx of stage IV lung cancer not receiving any treatment because he was not responding to immunotherapy and symptomatic anemia who presented [facility] ED 03/01/2025 for shortness of breath especially in the mornings but over the past 3 days he has continued to worsen, also has mild wheezing and coughing. Also notes the past 2 weeks he has had increased swelling in his lower extremities. In the ED patient afebrile, patient with variable heart rate anywhere from 90s to 120s, blood pressure initially 106/92, respiratory rate 18 patient 98% on 3 L nasal cannula with a respiratory rate of 19. CBC with white blood cell count 14.4, hemoglobin 10.2 and platelet count 459. BMP with a sodium of 126, up from 120 in December, BUN of 11 and creatinine 0.65, Trop of 36 with 4-hour Trop of 29, and a proBNP of 2433. Lactic acid within normal limits. CTA obtained and showed mild increase in size of patient's left upper lobe/left hilar mass with increased cavitation consolidation as well as left pleural effusion, mild increase in size and number of pulmonary nodules, unchanged multifocal compression of the left pulmonary artery and branches. ED physician was concern for postobstructive pneumonia and fluid overload, patient received Rocephin and azithromycin as well as IV Lasix in the ED. [facility] with [facility] and was supposed to be transferred however no beds for prolonged amount of time and [facility] okay with [facility] to our institution given lack of bed availability so hospitalist contacted for admission. Patient evaluated bedside. Patient reports he is still having shortness of breath but feels better than when he first arrived especially since he has been pain off fluid. He notes that he has been having shortness of breath and cough for a year and was diagnosed with stage IV lung cancer, usually he short of breath when he wakes up in the morning but then will improve throughout the day and some days will not feel too bad at all over the past 3 days he has not been improving throughout the day, does cough but has difficulty producing any sputum, also notes leg swelling for the past 2 weeks. He reports before his lung cancer diagnosis he had never been hospitalized and did not take any medications, denies smoking, only thing he takes at home currently is oxycodone as needed since his diagnosis. Denies any breathing treatments at home and does not wear home oxygen. He denies any chest pain, no fever at home, occasionally gets some abdominal pain but nothing significant, had been having problems with constipation but that has resolved, denies nausea. Denies problems with urination Objective Data Objective Data Vital Signs: Vital Signs Temp Pulse Resp BP Pulse Ox O2 Del Method O2 Flow Rate 96.3 F L 82 16 95/71 98 Nasal Cannula 3 03/10/25 08:00 03/10/25 10:30 03/10/25 10:30 03/10/25 09:45 03/10/25 09:00 03/10/25 09:00 03/10/25 09:00 FiO2 30 03/10/25 08:00 Oxygen Flow Rate (L/min) 3 Oxygen Delivery Method Nasal Cannula Weight: 137 lb 5.568 oz Body Mass Index (BMI) 19.7 Intake & Output: Intake and Output for Last 24 Hours 03/08/25 03/09/25 03/10/25 23:59 23:59 23:59 Intake Total 1271.21 / 1290.01 1197.09 / 1197.09 Output Total 600 / 600 650 / 650 Balance 671.21 / 690.01 547.09 / 547.09 Medical Nutrition Assessment Dietitian: Malnutrition Criteria Met Start: 03/10/25 09:27 Freq: Status: Active Protocol: Document 03/10/25 09:27 SB (Rec: 03/10/25 09:27 SB [id number]) Nutrition Malnutrition Evidence of Yes Malnutrition Exists Malnutrition (severe Chronic ): Evidenced By Suboptimal Energy Intake (Severe),Weight Loss (Severe), Physical Changes (Severe) Clinical Problem Chronic Disease or Condition Related Malnutrition Etiology severe protein-calorie malnutrition in the context of chronic disease related to inadequate energy/oral intake and increased energy expenditure Signs/Symptoms as evidenced by ~16% unintentional body weight loss x 2 months; PO meeting less than 50% of estimated nutrition needs x 1 month; muscle wasting/fat depletion in the clavicle, face, arms, and legs Status Active Problem Recommendation Dietitian Continue regular diet. Recommendations/ Pt refused all ONS on 03/08/25 due to being too sweet and Changes believing cancer feeds on sugar. Will offer ONS at time of follow-up. Will monitor weight trends. If pt's weight and PO continue to decline, recommend nutrition support. Lab / Micro Data Attestation: I reviewed the patient's lab results. 03/10/25 04:40 03/10/25 04:40 Labs: Laboratory Results - last 24 hr 03/09/25 15:03: WBC 14.7 H, RBC 3.96 L, Hgb 10.7 L, Hct 33.8 L, MCV 85.4, MCH 27.0, MCHC 31.7 L, RDW Std Deviation 49.4 H, RDW Coeff of Hai 15.8 H, Plt Count 552 H, MPV 9.9, Immature Gran % (Auto) ASSEMBLER 1ST SHIFT, Neut % (Auto) ASSEMBLER 1ST SHIFT, Lymph % (Auto) ASSEMBLER 1ST SHIFT, Teller % (Auto) ASSEMBLER 1ST SHIFT, Eos % (Auto) ASSEMBLER 1ST SHIFT, Baso % (Auto) ASSEMBLER 1ST SHIFT, Absolute Neuts (auto) 11.9 H, Absolute Lymphs (auto) 0.59 L, Total Counted 100, Neutrophils % (Manual) 78 H, Band Neutrophils % 3, Lymphocytes % (Manual) 4 L, Monocytes % (Manual) 7, Metamyelocytes % 3 H, Myelocytes % 5 H, Nucleated RBC % ASSEMBLER 1ST SHIFT, Platelet Estimate MOD INC, PT 16.6 H, INR 1.3, APTT 39.7 H, Lactic Acid 2.8 H* 03/09/25 15:20: Sodium 131 L, Potassium 4.6, Chloride 90 L, Carbon Dioxide 25.4, Anion Gap 15, BUN 23 H, Creatinine 0.97, Estim Creat Clear Calc 66.38, Est GFR (MDRD) Non-Af 84, BUN/Creatinine Ratio 23.9 H, Glucose 107 H, Calcium 9.3, Total Bilirubin 0.73, AST 48 H, ALT 22, Alkaline Phosphatase 163 H, Troponin T High Sens 48 H D, NT pro BNP II 2417 H, Total Protein 6.8, Albumin 2.9 L, Globulin 3.9, Albumin/Globulin Ratio 0.7 L 03/09/25 17:25: Troponin T Hi Sens 2 Hr 42 H 03/09/25 19:25: Urine Color Yellow, Urine Clarity Clear, Urine pH 6.0, Ur Specific Soldier 1.010, Urine Protein 30 H, Urine Glucose (UA) Normal, Urine Ketones Negative, Urine Occult Blood Negative, Urine Nitrite Negative, Urine Bilirubin Negative, Urine Urobilinogen Normal, Ur Leukocyte Esterase Negative, Urine RBC 0-5 SEEN, Urine WBC 0-5 SEEN, Ur Squamous Epith Cells 0-5 SEEN, Urine Bacteria 0 SEEN, Urine Mucus 0 SEEN 03/09/25 19:36: Troponin T Hi Sens 4Hr 38 H 03/09/25 19:48: Lactic Acid 1.8 03/10/25 04:40: WBC 15.0 H, RBC 3.95 L, Hgb 10.6 L, Hct 33.5 L, MCV 84.8, MCH 26.8 L, MCHC 31.6 L, RDW Std Deviation 49.5 H, RDW Coeff of Hai 16.0 H, Plt Count 632 H, MPV 10.0, Neut % (Auto) Not Reportable, Absolute Neuts (auto) 13.3 H, Absolute Lymphs (auto) 0.70 L, Total Counted 100, Neutrophils % (Manual) 89 H, Lymphocytes % (Manual) 5 L, Monocytes % (Manual) 2, Metamyelocytes % 4 H, Differential Comment COMMENT, Platelet Estimate MKD INC, RBC Morphology NORM C+C, Sodium 135, Potassium 3.8, Chloride 91 L, Carbon Dioxide 26.3, Anion Gap 18 H, BUN 23 H, Creatinine 1.04, Estim Creat Clear Calc 59.07, Est GFR (MDRD) Non-Af 78, BUN/Creatinine Ratio 22.2 H, Glucose 158 H, Calcium 9.1, NT pro BNP II 4495 H 03/10/25 04:44: Magnesium 1.9, C-React Prot Ext Range 254.00 H Micro: Microbiology 03/09/25 19:25 Urine, Clean Catch Legionella Antigen - Final 03/09/25 19:25 Urine, Clean Catch Streptococcus pneumoniae Antigen (M - Final 03/09/25 15:36 Mucosa - Nose SARS-CoV-2, Influenza & RSV (PCR) - Final SARS-CoV-2 (COVID 19 PCR) ABG Data ABG results: ABG 03/09/25 03/10/25 15:24 04:39 Specimen Type WILDA WILDA Sample Site Not entered Central Line O2 % 3.0 VBG pH 7.49 H 7.44 H VBG pO2 27 34 VBG HCO3 30 H 34 H VBG Total CO2 31 35 H VBG O2 Sat (Calc) 57 66 VBG Base Excess 7 H 10 H POC Mix VBG pCO2 Pt Tmp 39.2 L 49.4 O2 Delivery Device Not entered Cannula Attestation: I personally reviewed and interpreted this ABG as follows: Interpretation: As per above Radiography Diagnostic Testing: Radiology Impression Chest X-Ray 03/09/25 15:45 IMPRESSION: Interval progression of pulmonary malignancy with near-complete opacification of left hemithorax with underlying left upper lobe/perihilar mass lesion as previously described, likely with postobstructive atelectasis and/or pneumonia, and coexisting pleural effusion. Increased conspicuity of numerous nodular cannonball metastases throughout the right lung. Reading Location: [facility] Chest CTA 03/09/25 16:36 IMPRESSION: No acute findings; no pulmonary arterial emboli identified. Advanced pulmonary malignancy with widespread metastatic lymphadenopathy and associated findings as described above. No significant interval change from 03/01/2025. Reading Location: [facility] Chest X-Ray 03/10/25 05:20 IMPRESSION: 1. No significant change. Near-complete opacification left hemithorax. Underlying pneumonia should be considered as well as extensive metastatic disease. Reading Location: [facility] Rhythm Strip Rate: 98 Ectopy: PVC(s), PAC(s) and - (Intermittent A-fib. Patient did have an episode of A-fib with RVR and given Cardizem) Physical Exam Const alert and oriented x3 General Appearance: cooperative Orientation / Consciousness: awake, oriented to person, oriented to place and oriented to time Exam Limitations: no limitations Nutritional Appearance: cachectic, underweight and thin HEENT normocephalic HEENT Narrative: Patient's eyes are sunken Eyes PERRL Neck full ROM Chest Chest: other Intermittent chest discomfort Resp Effort and Inspection: pursed lip breathing, labored and audible wheezes Auscultation: crackles, wheezes and diminished lung sounds Cardio Rhythm: abnormal rhythm GI GI Narrative: Large hernia noted to the right lower quadrant. Extremity normal to inspection Skin no rashes or lesions noted Neuro oriented x3 and CN's II-XII intact bilaterally Psych Psych Narrative: Patient in grieving process. Currently in the denial phase but I do feel that he is transitioning to acceptance. Insight: fair Judgement: fair Charges/Coding Palliative Care Palliative Care: [id number] Follow up 50+ min Consulation Summary Current admission Current Code Status: DNRCC-A no intubation Associated Diagnosis: Metastatic lung cancer Consult Data Date of Consult: 03/10/25 Location of consult: ICU Reason for referral: Goals of care Referral source: Hospitalist Palliative care diagnosis (Summary list): Metastatic lung cancer Palliative care services/treatment (Accepted, as consult): Accepted Case discussed with referring provider: Updated Dr. Winn about the patient's decision Palliative Assessment Advanced Directive - Current Admission Advance Directive: Advance Directive ON ADMISSION - REFERENCE Do you have a Healthcare No 03/09/25 21:24 Living Will? Do you have a Healthcare Power No 03/09/25 21:24 of Certified Nutritionist? Do You Want Additional Declined 03/09/25 21:24 Information on Advanced Directives or Healthcare Proxy/DPOA comments: Fianc?, Deyanira Symptoms Dyspnea symptoms: Severe Constipation symptoms: Mild Nausea symptoms: None Vomiting symptoms: None Depression symptoms: Mild Anorexia symptoms: Severe Cough symptoms: Moderate Insomnia symptoms: None Diarrhea symptoms: None Fatigue symptoms: Moderate Weakness symptoms: Moderate Confusion symptoms: None Impression & Recommendations Impressions Impressions: Patient is appropriate for inpatient hospice Recommentation Palliative recommendations: Would you recommend the patient transition to inpatient hospice. Encouter Achieved as a result of this Palliative Care Encounter: [[id number] ] minutes were spent in total for this visit which consisted, primarily of counseling and education dealing with the complex and emotionally intense issues of symptom management and palliative care in the setting of serious and potentially life-threatening illness. Review of documentation, labs and radiological studies. ?Patient/family had the opportunity to ask questions Plan (1) Respiratory failure: PLAN: Medical management per primary team (2) Pneumonia: PLAN: Medical management per primary team (3) COVID-19: PLAN: Medical management per primary team (4) Elevated troponin: PLAN: Medical management per primary team. (5) Acute exacerbation of chronic heart failure: PLAN: Medical management per primary team (6) Sepsis: QUALIFIERS: Sepsis type: sepsis due to unspecified organism Sepsis acute organ dysfunction status: with acute organ dysfunction Severe sepsis acute organ dysfunction type: acute respiratory failure Acute respiratory failure type: with hypoxia Severe sepsis shock status: without septic shock Qualified Code(s): A41.9 - Sepsis, unspecified organism; R65.20 - Severe sepsis without septic shock; J96.01 - Acute respiratory failure with hypoxia PLAN: Medical management per primary team (7) Palliative care encounter: PLAN: After extensive discussion patient has elected to transition to the inpatient unit for hospice. ROS Constitutional Constitutional: Reports change in weight, poor appetite and weakness Eyes Eyes: Reports systems reviewed and no addt'l complaints, except as documented ENT HEENT: Reports nasal congestion Cardiovascular Cardiovascular: Reports arrhythmia on telemetry, dyspnea at rest, dyspnea on exertion and easily tiring during activity Respiratory/Chest Respiratory/Chest: Reports chest congestion, chest tightness, cough, dusky skin and wheezing Gastrointestinal Gastrointestinal: Reports weight changes Genitourinary Genitourinary: Reports systems reviewed and no addt'l complaints, except as documented Musculoskeletal Musculoskeletal: Reports systems reviewed and no addt'l complaints, except as documented Integumentary Integumentary: Reports systems reviewed and no addt'l complaints, except as documented Neurologic Neurologic: Reports systems reviewed and no addt'l complaints, except as documented Psychiatric Psychiatric: Reports anxiety Endocrine Endocrinology: Reports systems reviewed and no addt'l complaints, except as documented Hematologic/Lymphatic Hematologic/Lymphatic: Reports systems reviewed and no addt'l complaints, except as documented Allergic/Immunologic Allergic/Immunologic: Reports systems reviewed and no addt'l complaints, except as documented
--- NOTE | 2025-03-10 11:24 | CASEMGMT ---
Social Work SW faxed a hospice referral to [facility]. Patient requested the referral. SW received the referral from inpatient palliative BARBERING INSTRUCTOR. CARLO Hernandez
--- NOTE | 2025-03-10 14:07 | CASEMGMT ---
Social Work Per hospice, pt's significant other does not want to make an appointment but prefers that pt speak directly with hospice. SW to pt room. Pt confirms that he has requested hospice consult. SW explained above. Pt stating that he will meet with hospice by himself as he states his significant other will be too emotional. SW assisted pt in calling [facility]. Appointment has been set for tomorrow at 9:30. Nursing and physician notified. KRIS Lozano
--- NOTE | 2025-03-10 16:19 | CASEMGMT ---
Addendum entered by Marycarmen Cross 03/10/25 16:29: Patient is discharging too [facility]. Original Note: Social Work SW spoke with Anca at [facility] hospice. Anca reported she talked with the patient and the patient has signed the consent forms. Anca reported transportation is picking up the patient at 730pm tonight. DAXA spoke with the nurse Kimberly in ICU and informed her of the DC plan. SW messaged the hospitalist regarding DC plan. CARLO Hernandez
--- NOTE | 2025-03-10 16:25 | DS.PCM_ITS ---
Providers Date of Admission: 03/09/25 Primary Care Physician: [facility] Consultations 03/09/25 21:12 Consult: Inpatient Palliative Care Routine Consulting Provider: Leeann Miller Reason for Consult: Met CA with PNA and Sepsis. EMERGENT Consult: No Notified: Yes Date Notified: 03/09/25 Time Notified: 20:22 Method of Notification: Text Method of Consult:: In-Person Consult: Covering Machine Operator Helper / Pulmonary Medicine Routine Consulting Provider: Intensivists/Pulmonary Med Reason for Consult: Sepsis with Postobstructive PNA, AE CHF + resp fail on BiPAP. EMERGENT Consult: No MD Notified: Yes Date Notified: 03/09/25 Time Notified: 20:25 Method of Notification: Text 03/10/25 11:11 Consult: Hospice / Outpatient Palliative Care Routine Consulting Provider: [facility] Reason for Consult: end of life IPU EMERGENT Consult: Yes MD Notified: Yes Date Notified: 03/10/25 Time Notified: 11:11 Method of Notification: Text Reason For Visit: SEPSIS WITH POSTOBSTRUCTIVE PNA AND KNOWN MET CA. Diagnosis Discharge Diagnosis (1) Respiratory failure: Status: Acute Code(s): J96.90 - Respiratory failure, unspecified, unspecified whether with hypoxia or hypercapnia Plan: improved hypercapnic on BiPAP 2/2 post-obstructive pneumonia, lung cancer, COVID-19. Though no GGO on CTA, so I suspect the COVID is not significantly impacting respiratory issues. (2) Pneumonia: Status: Acute Code(s): J18.9 - Pneumonia, unspecified organism Plan: left sided. post-obstructive pip/tazo and vanc. Not significantly changed from prior CT (3) COVID-19: Status: Acute Code(s): U07.1 - COVID-19 Plan: positive on the . Was not checked last admission. Unclear time of onset given previous hospitalization. Already on steroids with methylprednisolone. Will Started on remdesivir. (4) Elevated troponin: Status: Acute Code(s): R79.89 - Other specified abnormal findings of blood chemistry (5) Acute exacerbation of chronic heart failure: Status: Acute Code(s): I50.9 - Heart failure, unspecified (6) Sepsis: Status: Acute Code(s): A41.9 - Sepsis, unspecified organism Qualifiers: Sepsis type: sepsis due to unspecified organism Sepsis acute organ dysfunction status: with acute organ dysfunction Severe sepsis acute organ dysfunction type: acute respiratory failure Acute respiratory failure type: w ith hypoxia Severe sepsis shock status: without septic shock Qualified Code(s): A41.9 - Sepsis, unspecified organism; R65.20 - Severe sepsis without septic shock; J96.01 - Acute respiratory failure with hypoxia (7) Palliative care encounter: Status: Acute Code(s): Z51.5 - Encounter for palliative care Plan Chronic conditions: * A-fib flutter ? EKG reviewed and demonstrates presence of A-fib flutter? New diagnosis. Patient did receive Cardizem. Also metoprolol continued. Patient started on systemic anticoagulation with apixaban 2D echo from 03/01/2025 did show moderate global left ventricular systolic dysfunction. The left ventricular ejection fraction is 35 %. Stage 1 diastolic dysfunction.Mild (1+) tricuspid valve insufficiency. Plan is to continue to monitor on telemetry and if patient does not respond to initial management patient be started on a Cardizem drip? 03/07/2025; patient was started on Cardizem during the night. Plan is to wean off and start patient on p.o. Cardizem * Metastatic lung CA? Patient has apparently failed immunotherapy. Care is at the [facility] patient is requesting to be transferred to the [place] did explain to patient the best option would be for patient to be discharged after being assessed for home oxygen and then he can follow-up * Hyponatremia? resolved. 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 Patient was seen in consultation by dietary recommendations reviewed DVT prophylaxis not indicated as already on apixaban. Medications at Discharge Home Medications dexamethasone 4 mg tablet 4 mg PO DAILY unknown 03/02/25 ondansetron 8 mg disintegrating tablet 8 mg PO Q8H nausea 03/02/25 oxycodone 5 mg capsule 5 mg PO Q4H pain 03/02/25 guaifenesin 1,200 mg tablet, extended release 12 hr (Mucus Relief ER) 1,200 mg PO BID #60 tabs 03/05/25 Hospital Course Summary of Care Provided Hospital Course: Patient came back after being treated for postop obstructive pneumonia was positive for COVID this time. Was put on BiPAP and was hypotensive and put on pressors. Patient had a postobstructive pneumonia on his left that really was unchanged from a week prior on CT imaging. Did have pulmonary metastases. Patient was medically treated and then met with palliative care and hospice. Plan is for the patient to go to the inpatient hospice unit today. Medical Records Data Medical Nutrition Assessment Dietitian: Malnutrition Criteria Met Start: 03/10/25 09:27 Freq: Status: Active Protocol: Document 03/10/25 09:27 SB (Rec: 03/10/25 09:27 SB [id number]) Nutrition Malnutrition Evidence of Yes Malnutrition Exists Malnutrition (severe Chronic ): Evidenced By Suboptimal Energy Intake (Severe),Weight Loss (Severe), Physical Changes (Severe) Clinical Problem Chronic Disease or Condition Related Malnutrition Etiology severe protein-calorie malnutrition in the context of chronic disease related to inadequate energy/oral intake and increased energy expenditure Signs/Symptoms as evidenced by ~16% unintentional body weight loss x 2 months; PO meeting less than 50% of estimated nutrition needs x 1 month; muscle wasting/fat depletion in the clavicle, face, arms, and legs Status Active Problem Recommendation Dietitian Continue regular diet. Recommendations/ Pt refused all ONS on 03/08/25 due to being too sweet and Changes believing cancer feeds on sugar. Will offer ONS at time of follow-up. Will monitor weight trends. If pt's weight and PO continue to decline, recommend nutrition support. Weight / BMI Weight Weight: 62.3 kg Body Mass Index (BMI) 19.7 ABG / Lab / Microbiology Data 03/10/25 04:40 03/10/25 04:40 Laboratory: Laboratory Results - last 24 hr 03/09/25 15:03: Immature Gran % (Auto) MACHINE SHORTHAND REPORTER, Neut % (Auto) MACHINE SHORTHAND REPORTER, Lymph % (Auto) MACHINE SHORTHAND REPORTER, [place] % (Auto) MACHINE SHORTHAND REPORTER, Eos % (Auto) MACHINE SHORTHAND REPORTER, Baso % (Auto) MACHINE SHORTHAND REPORTER, Absolute Neuts (auto) 11.9 H, Absolute Lymphs (auto) 0.59 L, Total Counted 100, Neutrophils % (Manual) 78 H , Band Neutrophils % 3, Lymphocytes % (Manual) 4 L, Monocytes % (Manual) 7, M etamyelocytes % 3 H, Myelocytes % 5 H, Nucleated RBC % MACHINE SHORTHAND REPORTER, Platelet Estimate MOD INC, PT 16.6 H, INR 1.3, APTT 39.7 H, Lactic Acid 2.8 H* 03/09/25 15:20: NT pro BNP II 2417 H 03/09/25 17:25: Troponin T Hi Sens 2 Hr 42 H 03/09/25 19:25: Urine Color Yellow, Urine Clarity Clear, Urine pH 6.0, Ur Specific [place] 1.010, Urine Protein 30 H, Urine Glucose (UA) Normal, Urine Ketones Negative, Urine Occult Blood Negative, Urine Nitrite Negative, Urine Bilirubin Negative, Urine Urobilinogen Normal, Ur Leukocyte Esterase Negative, Urine RBC 0-5 SEEN, Urine WBC 0-5 SEEN, Ur Squamous Epith Cells 0-5 SEEN, Urine Bacteria 0 SEEN, Urine Mucus 0 SEEN 03/09/25 19:36: Troponin T Hi Sens 4Hr 38 H 03/09/25 19:48: Lactic Acid 1.8 03/10/25 04:40: WBC 15.0 H, RBC 3.95 L, Hgb 10.6 L, Hct 33.5 L, MCV 84.8, MCH 26.8 L, MCHC 31.6 L, RDW Std Deviation 49.5 H, RDW Coeff of Hai 16.0 H, Plt Count 632 H, MPV 10.0, Neut % (Auto) Not Reportable, Absolute Neuts (auto) 13.3 H, Absolute Lymphs (auto) 0.70 L, Total Counted 100, Neutrophils % (Manual) 89 H , Lymphocytes % (Manual) 5 L, Monocytes % (Manual) 2, Metamyelocytes % 4 H, Differential Comment COMMENT, Platelet Estimate MKD INC, RBC Morphology NORM C+C, Sodium 135, Potassium 3.8, Chloride 91 L, Carbon Dioxide 26.3, Anion Gap 18 H, BUN 23 H, Creatinine 1.04, Estim Creat Clear Calc 59.07, Est GFR (MDRD) Non- Af 78, BUN/Creatinine Ratio 22.2 H, Glucose 158 H, Calcium 9.1, NT pro BNP II 4495 H 03/10/25 04:44: Magnesium 1.9, C-React Prot Ext Range 254.00 H Microbiology: Microbiology 03/09/25 19:25 Urine, Clean Catch Legionella Antigen - Final 03/09/25 19:25 Urine, Clean Catch Streptococcus pneumoniae Antigen (M - Final 03/09/25 15:36 Mucosa - Nose SARS-CoV-2, Influenza & RSV (PCR) - Final SARS-CoV-2 (COVID 19 PCR) ABG: ABG 03/10/25 04:39 Specimen Type WILDA Sample Site Central Line O2 % 3.0 VBG pH 7.44 H VBG pO2 34 VBG HCO3 34 H VBG Total CO2 35 H VBG O2 Sat (Calc) 66 VBG Base Excess 10 H POC Mix VBG pCO2 Pt Tmp 49.4 O2 Delivery Device Cannula Radiography Diagnostic Testing: Radiology Impression Chest CTA 03/09/25 16:36 IMPRESSION: No acute findings; no pulmonary arterial emboli identified. Advanced pulmonary malignancy with widespread metastatic lymphadenopathy and associated findings as described above. No significant interval change from 03/01/2025. Reading Location: [facility] Chest X-Ray 03/10/25 05:20 IMPRESSION: 1. No significant change. Near-complete opacification left hemithorax. Underlying pneumonia should be considered as well as extensive metastatic disease. Reading Location: [id number] D/C Instructions DC O2, CPAP, BIPAP Needs Home O2 Discharge instructions: Yes Type of respiratory needs?: Oxygen Oxygen frequency: Continuous Continuous oxygen liters per minute: 2 DC home with Oxygen: Yes Home O2 Review: I have reviewed the oxygen testing, and the patient qualifies for home oxygen equipment and portability. The patient is mobile in the home and the community. Meaningful Use Info Meaningful Use Meaningful Use Diagnoses (Choose all that apply): None applicable Discharge Plan Admission Admit Date/Time: 03/09/25 20:19 Primary Reason for Your Visit: pneumonia Attending Provider: Pj Roper Primary Care Provider: [facility] Consulting Providers: Kasi Alvarado; Deandre Pruitt; Jesus Manuel Mcdermott; Madhu Winn; Zackery Garnett; Vinay Lozano; Erik Sanchez; Leslie Spivey; Jian Orlando; Chava Beyer; Brandon Kelsey; Michelle Gao; Doc Tejeda; Amber Trotter; Mayela,José Luis; Bk Alegria; Duy Lowe; Jemal Palacios; Jessica Lux; Tri Fortune; Carlos Herndon; David Love; Lacy Robins; Pee Duarte; Zackery Christian; Leeann Miller; Zackery Myrick; Umu Rodrigez; Jade Chavarria; Consuelo Lopez; Lulu Murry NP; Juana Krause Discharge Orders/Prescriptions Prescriptions: Continued oxycodone 5 mg capsule 5 mg PO Q4H Rx Instructions: take 1-2 tabs as needed for pain ondansetron 8 mg tablet,disintegrating 8 mg PO Q8H dexamethasone 4 mg tablet 4 mg PO DAILY guaifenesin [Mucus Relief ER] 1,200 mg Tablet Extended Release 12hr 1,200 mg PO BID Qty: 60 0RF Discontinued Jardiance 25 mg tablet 12.5 mg PO DAILY sennosides-docusate sodium [Stimulant Laxative Plus] 8.6-50 mg Tablet 2 tab PO BID Qty: 60 0RF potassium chloride 20 mEq Tablet,Er Particles/Crystals 20 meq PO BIDCM Qty: 60 0RF furosemide 40 mg Tablet 40 mg PO DAILY Qty: 30 0RF metoprolol succinate 50 mg Tablet Extended Release 24 Hr 50 mg PO DAILY Qty: 30 0RF diltiazem HCl 120 mg Capsule,Extended Release 24hr 120 mg PO BID Qty: 60 0RF Eliquis 5 mg Tablet 5 mg PO BID Qty: 60 0RF Referrals / [facility] [Primary [facility] Provider[facility] - Disposition Disposition (needs filled in before D/C Order can be placed): Hospice in Medical Facility Charges/Coding Visit Charges Inpatient E&M: 95848 Disch Hosp
== END 2025-03-10 19:50 | disposition hospice, inpatient (51) | DRG 871 ==
LOC: ED 15:20 → ICU 20:32
PROVIDERS: Internal Medicine Critical Care Medicine; Admitting Provider Internal Medicine; Emergency Provider Emergency Medicine
DX: A41.9 Sepsis, unspecified organism (principal); U07.1 COVID-19; R57.0 Cardiogenic shock; R65.21 Severe sepsis with septic shock; J96.01 Acute respiratory failure with hypoxia; E43 Unspecified severe protein-calorie malnutrition; I50.23 Acute on chronic systolic (congestive) heart failure; J18.9 Pneumonia, unspecified organism; E22.2 Syndrome of inappropriate secretion of antidiuretic hormone; C78.01 Secondary malignant neoplasm of right lung; J91.0 Malignant pleural effusion; I48.92 Unspecified atrial flutter; C34.12 Malignant neoplasm of upper lobe, left bronchus or lung; C34.02 Malignant neoplasm of left main bronchus; Z68.1 Body mass index [BMI] 19.9 or less, adult; I11.0 Hypertensive heart disease with heart failure; D64.9 Anemia, unspecified; I48.0 Paroxysmal atrial fibrillation; I95.2 Hypotension due to drugs; R13.10 Dysphagia, unspecified; Z51.5 Encounter for palliative care; R79.89 Other specified abnormal findings of blood chemistry; T46.1X5A Adverse effect of calcium-channel blockers, initial encounter; T50.1X5A Adverse effect of loop [high-ceiling] diuretics, initial encounter; Z66 Do not resuscitate; Z79.01 Long term (current) use of anticoagulants; Z79.899 Other long term (current) drug therapy; Z87.891 Personal history of nicotine dependence
CPT/HCPCS: 36556; 71045; 71275; 80048; 80053; 81001; 82803; 83605; 83735; 83880; 84484; 85025; 85610; 85730; 86140; 87040; 87086; 87088; 87449; 87631; 93005; 94002; 94003; 94640; 94762; 99285; Q9967; A4216; C1751; J0248; J1938; J2405